=== PATIENT | female | born 1950 | race Caucasian/White ===

== ENCOUNTER 2016-11-18 11:01 | Day surgery (SDC) | payer OTHER ==
[2016-11-15 14:17] VITALS: BMI 28.0
--- NOTE | 2016-11-15 15:02 | PAT Medication Instructions ---
Service Date Nov 15, 2016. Current Home Medication List Aspirin (Aspirin), 81 MG PO HS Atorvastatin (Lipitor), 20 MG PO HS Cholecalciferol (D 5000), 1 TAB PO QAM Insulin Detemir (Levemir), 15 SC DAILY BEFORE LUNCH Insulin Human Regular (Novolin R) Levothyroxine Sodium (Synthroid), 25 MCG PO QAM Lisinopril (Prinivil), 10 MG PO QAM Metformin Hcl (Glucophage), 1,000 MG PO BID Metoprolol Succinate (Toprol Xl), 50 MG PO QAM Oxycodone/Acetaminophen 5MG/325MG (Percocet 5MG/325MG), 1 TABLET PO QHS PRN for Pain Prednisone (Prednisone), 1 TAB PO HS Venlafaxine Hcl (Effexor Xr), 150 MG PO HS Medication Instructions For Your Scheduled Surgery Aspirin (Aspirin), 81 MG PO HS (patient stopped 11/11/16 per surgeon instructions) Prednisone (Prednisone), 1 TAB PO HS (last dose will be 11/15/16) - Hold the following medications 48 hours prior to surgery: Metformin Hcl (Glucophage), 1,000 MG PO BID - Hold the following medications the morning of surgery: Lisinopril (Prinivil), 10 MG PO QAM Insulin Human Regular (Novolin R) Cholecalciferol (D 5000), 1 TAB PO QAM - Take the following medications the morning of surgery with a sip of water: Oxycodone/Acetaminophen 5MG/325MG (Percocet 5MG/325MG), 1 TABLET PO QHS PRN for Pain (can take up to fours prior to surgery if needed) Metoprolol Succinate (Toprol Xl), 50 MG PO QAM Levothyroxine Sodium (Synthroid), 25 MCG PO QAM - Take the following medications as scheduled the night before surgery: Venlafaxine Hcl (Effexor Xr), 150 MG PO HS Oxycodone/Acetaminophen 5MG/325MG (Percocet 5MG/325MG), 1 TABLET PO QHS PRN for Pain Insulin Detemir (Levemir), 15 SC DAILY BEFORE LUNCH Insulin Human Regular (Novolin R) Atorvastatin (Lipitor), 20 MG PO HS If you have any questions please call us at [phone] or [phone] ( [place]) or [phone]
[2016-11-15 15:32] LABS: BASO % 0.2 %; BASO ABS # 0.02 K/uL (0-0.2); COMPLETE YES; EOS % 1.4 %; HEMATOCRIT 40.7 % (37-47); IG% 0.3 %; LYMPH % 28.3 %; LYMPH ABS # 2.65 K/uL (1.2-3.4); MEAN CELL VOLUME 90.2 fL (80-100); MEAN CORPUSCULAR HGB CONC 34.4 g/dl (32-36); NEUT % 63.8 %; PLATELET COUNT 202 K/uL (130-400); RED BLOOD COUNT 4.51 M/uL (4.2-5.4); WHITE BLOOD COUNT 9.38 K/uL (4.8-10.8)
[2016-11-15 15:53] LABS: BUN/CREATININE RATIO 22.7 (10-20); CALCIUM 9.6 mg/dl (8.5-10.1); CREATININE 0.7 mg/dl (0.60-1.20); POTASSIUM 3.7 mmol/L (3.5-5.1)
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
[~2016-11-18] VITALS: Ht 175.3 cm; Wt 87.0 kg
[~2016-11-18 11:01] MED LIST: ASPI-461 PO; ATOR-54 PO; BUPIVACAINE/EPINEPHRINE 0.25% 1:200,000 30 ML VIAL ONE; CEFAZOLIN 2000 MG/60 ML D5W IV SCH; CHOLCAP10 PO; DEXAMETHASONE SOD INJ 4 MG/ML VIAL ONE; LACTATED RINGER'S 1000ML 1,000 ML IV SCH; LEVO25TA PO; LISI10TA PO; LVMI SC; METF-384 PO; METO1TAB66 PO; NVLRPUC; OXYC-57 PO; PRED20TA PO; VENL150C PO
--- NOTE | 2016-11-18 11:32 | History & Physical Bridge Note ---
H&P Re-Evaluation Bridge Note: I have examined the patient, reviewed the History & Physical and in the interval since the performance of the History & Physical I have noted the following changes of clinical significance: No changes noted
[2016-11-18 11:43] VITALS: BP 122/71; PULSE 81; TEMP 36.8; O2SAT 94; Ht 175.3 cm; Wt 87.0 kg
[2016-11-18] MEDS ORDERED: CEFAZOLIN IV 2,000 MG/60 ML D5W IV ONE (11:58)
[2016-11-18 12:10] LABS: PARTIAL THROMBOPLASTIN RATIO 1.4; PROTHROMBIN TIME (PATIENT) 10.9 SECONDS (9.0-12.0)
[2016-11-18] MEDS ORDERED: FENTANYL CITRATE INJ 50 MCG/1 ML 2 ML VIAL ONE (12:15)
[2016-11-18] MEDS ORDERED: MIDAZOLAM HCL 1 MG/ML 2ML VIAL ONE (12:15)
[2016-11-18] MEDS ORDERED: LIDOCAINE HCL 2% 2 ML VIAL (20MG/ML) ONE (12:15)
[2016-11-18] MEDS ORDERED: DEXAMETHASONE SOD INJ 4 MG/ML VIAL ONE (12:15)
[2016-11-18] MEDS ORDERED: ONDANSETRON INJ 2 MG/ML 2 ML VIAL ONE (12:15)
[2016-11-18] MEDS ORDERED: PROPOFOL IV EMULSION 10 MG/ML 20 ML VIAL IV ONE ×2 (12:15→13:07)
[2016-11-18] MEDS ORDERED: ONDANSETRON INJ 2 MG/ML 2 ML VIAL IV PRN (14:15)
[2016-11-18] MEDS ORDERED: FENTANYL CITRATE INJ 50 MCG/1 ML 2 ML VIAL IV PRN (14:15)
[2016-11-18] MEDS ORDERED: ATROPINE SULFATE 0.1 MG/ML 5ML SYR IV PRN (14:15)
[2016-11-18] MEDS ORDERED: EpHEDrine SULFATE INJ 50 MG/ML AMP IV PRN (14:15)
--- NOTE | 2016-11-18 15:55 | [facility] Post Operative Brief Note ---
Immediate Operative Summary Operative Date Nov 18, 2016. Pre-Operative Diagnosis RIGHT WRIST DISPLACED 2-PART INTRAARTICULAR DISTAL RADIUS FRACTURE Post-Operative Diagnosis RIGHT WRIST DISPLACED 2-PART INTRAARTICULAR DISTAL RADIUS FRACTURE Procedure(s) Performed O.R.I.F.RIGHT DISTAL RADIUS FRACTURE Surgeon DR FAUST [employer] Representative Surgeon(s) ZARIA TUTTLE Estimated Blood Loss 2ml Findings SEE DICT Specimens NONE Drains N Anesthesia GLMA W/ AXILLARY BLOCK Complication(s) None Disposition Recovery Room / PACU
--- NOTE | 2016-11-18 16:01 | DIAGNOSTIC IMAGING REPORT ---
INTRAOPERATIVE RIGHT WRIST 2 VIEWS CLINICAL HISTORY: Distal radial fracture status post internal fixation COMPARISON STUDY: No previous studies for comparison. FINDINGS: 2 intraoperative fluoroscopic spot images are provided for interpretation. 97 seconds of fluoroscopic time was utilized. There are 2 cannulated screws fixating the intra-articular fracture of the distal radius. Alignment appears near-anatomic. There is also irregularity of the navicular. It is not possible to determine on this study whether this represents artifact or nondisplaced fracture. There is a probable ulnar styloid fracture. IMPRESSION: Internally fixated distal radial fracture. Electronically signed by: Rasta Jalloh M.D. 11/18/2016 3:59 PM Dictated Date/Time: 11/18/2016 3:58 PM
[2016-11-18] MEDS ORDERED: OXYC-57 PO (16:22)
--- NOTE | 2016-11-18 16:25 | Discharge Instructions ---
Discharge Instructions Admission Reason for Admission: Right Wrist Distal Radius Fracture Discharge Discharge Diagnosis / Problem: right distal radius fracture Discharge Goals Goal(s): Decrease discomfort Activity Recommendations Activity Limitations: as noted below Lifting Limitations: until after follow-up appointment Exercise/Sports Limitations: until after follow-up appointment May Resume Sexual Activity: when tolerated Shower/Bathe: keep incision dry (Keep splint on until seen back for follow up.) Driving or Machine Use: No driving until pain med use is stopped . Instructions / Follow-Up Instructions / Follow-Up ACTIVITY RECOMMENDATIONS: * No use of the right upper extremity. SPECIAL CARE INSTRUCTIONS: * Your bandage should be left in place until your follow up in 2 weeks. * Some drainage onto the dressing may occur. This is normal. * If the bandage feels excessively tight, you may loosen the elastic bandage. Then call the physician's office for further instructions. * If possible, keep your hand elevated above the level of your heart for the first 2 post operative days. You may use a sling if necessary. * You should move your fingers regularly (50-100 motions per hour) unless otherwise instructed. SPECIAL PRECAUTIONS: * If you notice increased drainage, fever over 101 degrees F. or severe, unremitting pain, call your physician/office at . * You may have been prescribed pain medication. If you experience nausea and/or skin rash, discontinue this medication and contact our office for an alternative medication. FOLLOW UP VISIT: If appointment is not already scheduled: Please call [facility] to make a follow-up appointment after your surgery at . Current Hospital Diet Patient's current hospital diet: Discharge Diet Recommended Diet: Regular Diet Procedures Procedures Performed: O.R.I.F.RIGHT DISTAL RADIUS FRACTURE Pending Studies Studies pending at discharge: no Medical Emergencies . Who to Call and When: Medical Emergencies: If at any time you feel your situation is an emergency, please call [phone] immediately. . Non-Emergent Contact Non-Emergency issues call your: Surgeon Call Non-Emergent contact if: temperature is above 101, your pain is not controlled, your pain is worsening, wound has increased pain . "Provider Documentation" section prepared by Drew Khan. VTE Core Measure Inpt VTE Proph given/why not?: Treatment not indicated
[2016-11-18] MEDS ORDERED: OXYCODONE/ACETAMINOPHEN 5-325 TAB PO PRN (16:30)
--- NOTE | 2016-11-18 16:38 | Anesthesiology Progress Note ---
Anesthesia Post Op Note Date & Time Nov 18, 2016 at 16:38 Vital Signs Pain Intensity: 0 Vital Signs Past 12 Hours Date Time Temp Pulse Resp B/P Pulse Ox O2 Delivery O2 Flow Rate FiO2 11/18/16 16:30 72 18 125/61 100 Room Air 11/18/16 16:20 74 18 132/60 100 Nasal Cannula 4 11/18/16 16:10 75 16 135/52 96 Nasal Cannula 4 11/18/16 16:03 36.5 75 16 146/63 97 Room Air 11/18/16 11:43 36.8 81 18 122/71 94 Room Air Notes Mental Status: alert / awake / arousable, participated in evaluation Pt Amnestic to Procedure: Yes Nausea / Vomiting: adequately controlled Pain: adequately controlled Airway Patency, RR, SpO2: stable & adequate BP & HR: stable & adequate Hydration State: stable & adequate Anesthetic Complications: no major complications apparent
[2016-11-18 16:50] VITALS: BP 121/61; PULSE 72; TEMP 36.8; O2SAT 92
--- NOTE | 2016-11-18 17:12 | DIAGNOSTIC IMAGING REPORT ---
RIGHT WRIST 2 VIEW CLINICAL HISTORY: Postoperative evaluation. COMPARISON: Right wrist fluoroscopic images November 18, 2016 FINDINGS: These 2 images demonstrate 2 screws which fixate the distal right radial fracture. A cast is in place. Hardware is intact. There are no unexpected radiopaque foreign bodies. Fracture is in near anatomic alignment. IMPRESSION: Expected findings following internal fixation of the distal right radial fracture. Electronically signed by: Aureliano Najera M.D. 11/18/2016 5:11 PM Dictated Date/Time: 11/18/2016 5:07 PM
[2016-11-18 17:20] VITALS: BP 106/58; PULSE 78; O2SAT 95
[2016-11-18 17:50] VITALS: BP 125/51; PULSE 75; TEMP 36.9; O2SAT 94
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
== END 2016-11-18 18:05 | disposition home or self-care (01) ==
LOC: C.ACU 11:01
PROVIDERS: ATTEND Orthopaedic Surgery Sports Medicine
DX: S52.501A Unspecified fracture of the lower end of right radius, initial encounter for closed fracture (principal); I10 Essential (primary) hypertension; E78.00 Pure hypercholesterolemia, unspecified; E11.9 Type 2 diabetes mellitus without complications; E03.9 Hypothyroidism, unspecified; K21.9 Gastro-esophageal reflux disease without esophagitis; E66.9 Obesity, unspecified; Z79.4 Long term (current) use of insulin; Z98.890 Other specified postprocedural states; Z90.710 Acquired absence of both cervix and uterus; Y33.XXXA Other specified events, undetermined intent, initial encounter; Y93.29 Activity, other involving ice and snow; Y92.488 Other paved roadways as the place of occurrence of the external cause; Y99.8 Other external cause status

== ENCOUNTER → 2017-08-24 | Outpatient (CLI) | payer OTHER ==
[~2017-08-24] MED LIST changes: -BUPIVACAINE/EPINEPHRINE 0.25% 1:200,000 30 ML VIAL ONE; -CEFAZOLIN 2000 MG/60 ML D5W IV SCH; -DEXAMETHASONE SOD INJ 4 MG/ML VIAL ONE; -LACTATED RINGER'S 1000ML 1,000 ML IV SCH; -PRED20TA PO
--- NOTE | 2017-08-24 09:41 | DIAGNOSTIC IMAGING REPORT ---
CT no new fractures are evident. WRIST NO CONTRAST CT DOSE: 68.68 mGycm CLINICAL HISTORY: Right wrist pain. History of an internally fixated distal radial fracture. TECHNIQUE: Helical images were acquired in the oblique axial plane. Sagittal and coronal reformatted images were acquired. A dose lowering technique was utilized adhering to the principles of ALARA. COMPARISON STUDY: Conventional radiographic study dated 11/18/2016 FINDINGS: There is an internally fixated distal radial fracture. Alignment remains unchanged when compared the prior conventional radiographic study dated 11/18/2016. The fracture appears healed. No abnormalities of the 2 screws are visualized. There are no findings to indicate loosening. IMPRESSION: Healed internally fixated distal radial fracture. No change in alignment. Electronically signed by: Rasta Jalloh M.D. 08/24/2017 9:40 AM Dictated Date/Time: 08/24/2017 9:32 AM
== END | disposition home or self-care (01) ==
LOC: C.CTS 08:18
PROVIDERS: ATTEND Orthopaedic Surgery Sports Medicine
DX: M25.531 Pain in right wrist (principal)

== ENCOUNTER 2020-06-05 07:53 | Inpatient (IN) ==
--- OUTSIDE RECORDS SUMMARY | 2020-06-05 07:56 | External Medical Summary | Continuity of Care Document ---
:1950 Author Name Joni Chris, Provider Address Unavailable Unavailable , Care Team Providers Name Role Phone Non[facility] [email or web address], Provider Unavailable [email or web address], UNKNOWN Unavailable Unavailable Problems Leg pain, diffuse, left (729.5) (M85.605) Allergies and Adverse Reactions Allergy history not documented Medications Medications not documented Procedures Procedures not documented Immunizations Immunizations not documented Plan of Treatment Planned Observations Planned Goals not documented Results No Known Results Results not documented
--- OUTSIDE RECORDS SUMMARY | 2020-06-05 07:56 | External Medical Summary | Continuity of Care Document ---
:1950 Author Name Joni Chris, Provider Address Unavailable Unavailable , Care Team Providers Name Role Phone Non[facility] [email or web address], Provider Unavailable [email or web address], UNKNOWN Unavailable Unavailable Problems Leg pain, diffuse, left (729.5) (M30.605) Allergies and Adverse Reactions Allergy history not documented Medications Medications not documented Procedures Procedures not documented Immunizations Immunizations not documented Plan of Treatment Planned Observations Planned Goals not documented Results No Known Results Results not documented
[2020-06-05 08:40] LABS: Basophils # (auto) 0.01 K/uL (0-0.2); Basophils % (auto) 0.4 %; Eosinophils # (auto) 0.12 K/uL (0-0.5); Eosinophils % (auto) 4.7 %; Hematocrit (blood only) 21.7 % (37-47); Hemoglobin 7.1 g/dL (12.0-16.0); Lymphocytes % (auto) 38.9 %; Mean Corpuscular Hemoglobin 35.9 pg (25-34); Mean Corpuscular Hgb Conc 32.7 g/dL (32-36); Mean Corpuscular Volume 109.6 fL (80-100); Mean Platelet Volume 11.8 fL (7.4-10.4); Monocytes # (auto) 0.29 K/uL (0.11-0.59); Monocytes % (auto) 11.3 %; Neutrophils # (auto) 1.15 K/uL (1.4-6.5); Neutrophils % (auto) 44.7 %; Platelet Count 169 K/uL (130-400); RDW Coefficient of Variation 17.2 % (11.5-14.5); RDW Standard Deviation 66.1 fL (36.4-46.3); Red Blood Count 1.98 M/uL (4.2-5.4); White Blood Count 2.57 K/uL (4.8-10.8)
--- NOTE | 2020-06-05 08:43 | Emergency Department Note ---
History of Present Illness General Chief complaint: Abnormal Labs/Diagnostic Testing Stated complaint: LOW BLOOD CT Time Seen by Provider: 06/05/20 08:48 Source: patient, RN notes reviewed and old records reviewed Mode of arrival: ambulatory Limitations: no limitations History of Present Illness Provider complaint: SOB Onset (ago): day(s) 3 Treatments prior to arrival: none This is a 69-year-old female who was sent in by Dr. Graham's office over concerns of the patient is short of breath. The patient had laboratory work drawn which showed a hemoglobin of 7.1 this was reconfirmed this morning and found to be low. She denies blood in stool, no nosebleeds, no blood thinner. Has been short of breath for the past three days made worse with movement. Home Medications Home Medications Medication Instructions Recorded Confirmed Type aspirin 81 mg PO HS 06/05/20 06/05/20 History cholecalciferol (vitamin D3) 125 mcg PO QAM 06/05/20 06/05/20 History [Vitamin D3] cyanocobalamin (vitamin B-12) 1,000 mcg PO QAM 06/05/20 06/05/20 History [Vitamin B-12] insulin detemir U-100 [Levemir 54 unit SUBCUT HS 06/05/20 06/05/20 History U-100 Insulin] insulin regular human [Novolin R 0 unit SUBCUT .SLIDING SCALE 06/05/20 06/05/20 History Flexpen] isosorbide mononitrate 30 mg PO QAM 06/05/20 06/05/20 History levothyroxine 25 mcg PO QAM 06/05/20 06/05/20 History linagliptin [Tradjenta] 5 mg PO QAM 06/05/20 06/05/20 History lisinopril 5 mg PO HS 06/05/20 06/05/20 History metformin 1,000 mg PO BIDM 06/05/20 06/05/20 History metoprolol succinate 50 mg PO QAM 06/05/20 06/05/20 History rosuvastatin 40 mg PO HS 06/05/20 06/05/20 History venlafaxine 150 mg PO HS 06/05/20 06/05/20 History Allergies Allergy/AdvReac Type Severity Reaction Status Date / Time No Known Allergies Allergy Unverified 06/05/20 09:07 Past Med/Surg History Medical History CAD (coronary artery disease) 2017-EDIL to LAD Depression DM type 2 (diabetes mellitus, type 2) Dyslipidemia Hypertension Hypothyroidism Surgical History H/O dilation and curettage H/O tubal ligation History of cholecystectomy History of partial hysterectomy History of spinal fusion Family History (Updated 06/05/20 @ 10:23 by MARTA Gregory) Father Heart disease Mother Heart disease Sister Breast cancer Sister Multiple myeloma Brother Prostate cancer Social History Smoking Status: Never smoker Hx Alcohol Use: No Hx Substance Use: No Preferred Language: Turkmen Communication Ability: Effective Forensic Chemist Required: No Beliefs That Will Affect Care: None Current Living Situation: Spouse Other Information That Helps Us Care for You: No Feels Safe at Home: Yes Safety Concerns: Feels Safe At This Time Review of Systems A total of 10 systems reviewed and were otherwise negative Physical Exam Vital Signs Vital Signs - 24 hr 06/05/20 07:56 06/05/20 08:37 06/05/20 08:44 Temperature 36.8 C Temperature Source Oral Pulse Rate 86 73 Pulse Rate from SpO2 Sensor 74 Pulse Rhythm Regular Pulse Strength Normal Respiratory Rate 18 17 Respiratory Effort / Characteristics Non-Labored Respiratory Depth Normal Respiratory Pattern Regular Blood Pressure 123/59 L 139/52 L Blood Pressure Mean 80 59 Blood Pressure Position Sitting Pulse Oximetry 96 99 95 Oxygen Delivery Method Room Air Room Air Room Air Sepsis Recent Fever Within 48 Hours No Sepsis New/Unexplained Change in Mental Status No Sepsis Action Taken by Nursing No Action Required 06/05/20 09:00 Temperature Temperature Source Pulse Rate 72 Pulse Rate from SpO2 Sensor 73 Pulse Rhythm Pulse Strength Respiratory Rate 23 Respiratory Effort / Characteristics Respiratory Depth Respiratory Pattern Blood Pressure 108/56 L Blood Pressure Mean 80 Blood Pressure Position Pulse Oximetry 95 Oxygen Delivery Method Room Air Sepsis Recent Fever Within 48 Hours Sepsis New/Unexplained Change in Mental Status Sepsis Action Taken by Nursing VITAL SIGNS - Vital signs and nursing notes were reviewed. GENERAL - 69-year-old female appearing stated age who is in no acute distress. Communicates well with provider and answers questions appropriately. SKIN - Without rashes. HEAD - NC/AT. EYES - PERRL with EOMI bilaterally. Sclera anicteric. Palpebral conjunctiva pink and moist with no injection noted. EARS - No deformities of external structures noted on gross examination bilaterally. No pain elicited with palpation of the tragus bilaterally. External auditory canals without discharge or otorrhea. Tympanic membranes pearly san without retraction or bulging. No fluid or purulent material visualized behind the TM. Handle of malleus, umbo, cone of light, pars tensa/flaccid all easily visualized. NOSE - Midline and without cyanosis. No epistaxis or purulent drainage noted. Septum midline without deviation or septal hematoma noted. MOUTH/OROPHARYNX - Without perioral cyanosis. Buccal mucosa pink and moist and without leukoplakia. Tongue midline with equal elevation of palate bilaterally. No tonsillar hypertrophy, erythema, or exudates noted. dentition noted. NECK - Neck with FROM. Supple to palpation. lymphadenopathy noted. No nuchal rigidity. LUNGS - Chest wall symmetric without accessory muscle use, intercostals retractions, or central cyanosis. Normal vesicular breath sounds CTA B/L. No wheezes, rales, or rhonchi appreciated. CARDIAC - RRR with S1/S2. No murmur, rubs, or gallops appreciated. ABDOMEN - Abdominal contour without pulsations or visible masses. BS normoactive all four quadrants. No tenderness, palpable masses, hepatosplenomegaly, or ascites noted. RECTAL: brown stool, heme negative EXTREMITIES - No clubbing or peripheral cyanosis. No pretibial edema present. +3/5 radial, posterior tibial, and dorsalis pedis pulses palpated throughout. +5/5 strength noted in UE/LE bilaterally. NEUROLOGIC - Cranial nerves II through XII grossly intact. Sensory intact to light touch throughout. Patellar reflexes +2/4. PSYCH - A&Ox3 and cooperates fully with examiner. Pt is very pleasant and interacts well with examiner. Course Administered Medications Insulin Aspart (Novolog Flexpen) 0 units SC ACHS MARIA GUADALUPE Stop: 07/05/20 11:29 Last Admin: 06/05/20 12:52 Dose: 6 units Documented by: [id number] Cosigned by: [id number] Ioversol (Optiray 320 100ml) 94 ml IV ONCE PRN PRN Reason: Interaction Checking Stop: 06/09/20 10:07 Last Admin: 06/05/20 10:08 Dose: 94 ml Documented by: [id number] Medical Decision Making Differential Diagnosis Diverticulosis, AVM, coagulopathy, colitis, inflammatory bowel disease, malignancy, Zandra-Mora tear, esophagitis, peptic ulcer disease, variceal bleed, gastritis, epistaxis, fissure, hemorrhoids, as well as other pathologies. Medical Records Attestation: I reviewed the patient's medical records. Home Medications Current Medication List: was personally reviewed by me Laboratory Data Attestation: I reviewed the patient's lab results. Result diagrams: 06/05/20 08:31 06/05/20 08:31 Lab Results 06/05/20 06/05/20 06/05/20 Range/Units 08:31 08:31 08:31 WBC 2.57 L (4.8-10.8) K/uL RBC 1.98 L (4.2-5.4) M/uL Hgb 7.1 L (12.0-16.0) g/dL POC Hgb (12.0-16.0) g/dl Hct 21.7 L (37-47) % POC Hct (37-47) % MCV 109.6 H (80-100) fL MCH 35.9 H (25-34) pg MCHC 32.7 (32-36) g/dL RDW Std Deviation 66.1 H (36.4-46.3) fL RDW Coeff of Evin 17.2 H (11.5-14.5) % Plt Count 169 (130-400) K/uL MPV 11.8 H (7.4-10.4) fL Immature Gran % (Auto) 0.0 % Neut % (Auto) 44.7 % Lymph % (Auto) 38.9 % Towns % (Auto) 11.3 % Eos % (Auto) 4.7 % Baso % (Auto) 0.4 % Reticulocyte % (Auto) 2.8 H (0.5-2.0) % Neut # (Auto) 1.15 L (1.4-6.5) K/uL Lymph # (Auto) 1.00 L (1.2-3.4) K/uL Towns # (Auto) 0.29 (0.11-0.59) K/uL Eos # (Auto) 0.12 (0-0.5) K/uL Baso # (Auto) 0.01 (0-0.2) K/uL Reticulocyte # 0.05 (0.02-0.10) 10^6/uL Immature Gran # (Auto) 0.00 (0.00-0.02) K/uL Hyposegmented Neuts Occasional Hypogranular Neuts 1+ Macrocytosis Present Tear Drop Cells 1+ Ovalocytes 1+ Peripher Smr Path Cons PT 11.2 (9.0-12.0) Seconds INR 1.1 (0.9-1.1) APTT 24.9 (21.0-31.0) Seconds PTT Ratio 0.9 POC Sodium (135-144) mmol/L Sodium (136-145) mmol/L POC Potassium (3.3-5.0) mmol/L Potassium (3.5-5.1) mmol/L POC Chloride (101-112) mmol/L Chloride (98-107) mmol/L Carbon Dioxide (21-32) mmol/L POC Total CO2 (24-31) mmol/L Anion Gap (3-11) POC Anion Gap (16-25) mmol/L POC BUN (7-18) mg/dl BUN (7-18) mg/dl Creatinine (0.6-1.2) mg/dl POC Creatinine (0.6-1.3) mg/dl Est Cr Clr Drug Dosing ml/min Est GFR ( Amer) Est GFR (Non-Af Amer) BUN/Creatinine Ratio (10-20) Glucose (70-99) mg/dl POC Glucose (other) (70-99) mg/dl Calcium (8.5-10.1) mg/dl POC Ioniz Calcium Dalila (1.12-1.32) mmol/l Iron (35-150) mcg/dl TIBC (250-450) mcg/dl Transferrin (200-360) mg/dl Transferrin % Sat (15-50) % Total Bilirubin (0.2-1) mg/dl AST (15-37) U/L ALT (12-78) U/L Alkaline Phosphatase (45-117) U/L Total Creatine Kinase (26-192) U/L CK-MB (CK-2) (0.5-3.6) ng/ml CK/CKMB % Calc (0-3.0) Troponin I (0-0.045) ng/ml Total Protein (6.4-8.2) gm/dl Albumin (3.4-5.0) gm/dl Globulin (2.5-4.0) gm/dl Albumin/Globulin Ratio (0.9-2) POC Stool Occult Blood (Negative) Anaplasma Smear See Comment Lyme Disease IgG Ab (Negative) Lyme Disease IgM Ab (Negative) Blood Type A Positive Antibody Screen NEGATIVE Crossmatch See Detail 06/05/20 06/05/20 06/05/20 Range/Units 08:31 08:31 08:41 WBC (4.8-10.8) K/uL RBC (4.2-5.4) M/uL Hgb (12.0-16.0) g/dL POC Hgb (12.0-16.0) g/dl Hct (37-47) % POC Hct (37-47) % MCV (80-100) fL MCH (25-34) pg MCHC (32-36) g/dL RDW Std Deviation (36.4-46.3) fL RDW Coeff of Evin (11.5-14.5) % Plt Count (130-400) K/uL MPV (7.4-10.4) fL Immature Gran % (Auto) % Neut % (Auto) % Lymph % (Auto) % Towns % (Auto) % Eos % (Auto) % Baso % (Auto) % Reticulocyte % (Auto) (0.5-2.0) % Neut # (Auto) (1.4-6.5) K/uL Lymph # (Auto) (1.2-3.4) K/uL Towns # (Auto) (0.11-0.59) K/uL Eos # (Auto) (0-0.5) K/uL Baso # (Auto) (0-0.2) K/uL Reticulocyte # (0.02-0.10) 10^6/uL Immature Gran # (Auto) (0.00-0.02) K/uL Hyposegmented Neuts Hypogranular Neuts Macrocytosis Tear Drop Cells Ovalocytes Peripher Smr Path Cons PT (9.0-12.0) Seconds INR (0.9-1.1) APTT (21.0-31.0) Seconds PTT Ratio POC Sodium (135-144) mmol/L Sodium 139 (136-145) mmol/L POC Potassium (3.3-5.0) mmol/L Potassium 4.3 (3.5-5.1) mmol/L POC Chloride (101-112) mmol/L Chloride 106 (98-107) mmol/L Carbon Dioxide 25 (21-32) mmol/L POC Total CO2 (24-31) mmol/L Anion Gap 8.0 (3-11) POC Anion Gap (16-25) mmol/L POC BUN (7-18) mg/dl BUN 12 (7-18) mg/dl Creatinine 0.70 (0.6-1.2) mg/dl POC Creatinine (0.6-1.3) mg/dl Est Cr Clr Drug Dosing 83.1 ml/min Est GFR ( Amer) 101.0 Est GFR (Non-Af Amer) 87.2 BUN/Creatinine Ratio 16.8 (10-20) Glucose 213 H (70-99) mg/dl POC Glucose (other) (70-99) mg/dl Calcium 8.6 (8.5-10.1) mg/dl POC Ioniz Calcium Dalila (1.12-1.32) mmol/l Iron 113 (35-150) mcg/dl TIBC 366 (250-450) mcg/dl Transferrin 280 (200-360) mg/dl Transferrin % Sat 29 (15-50) % Total Bilirubin 0.3 (0.2-1) mg/dl AST 23 (15-37) U/L ALT 31 (12-78) U/L Alkaline Phosphatase 61 (45-117) U/L Total Creatine Kinase 194 H (26-192) U/L CK-MB (CK-2) 3.7 H (0.5-3.6) ng/ml CK/CKMB % Calc 1.9 (0-3.0) Troponin I < 0.015 (0-0.045) ng/ml Total Protein 7.5 (6.4-8.2) gm/dl Albumin 3.6 (3.4-5.0) gm/dl Globulin 3.9 (2.5-4.0) gm/dl Albumin/Globulin Ratio 0.9 (0.9-2) POC Stool Occult Blood Negative (Negative) Anaplasma Smear Lyme Disease IgG Ab Negative (Negative) Lyme Disease IgM Ab Negative (Negative) Blood Type Antibody Screen Crossmatch 06/05/20 Range/Units 08:55 WBC (4.8-10.8) K/uL RBC (4.2-5.4) M/uL Hgb (12.0-16.0) g/dL POC Hgb 7.1 L (12.0-16.0) g/dl Hct (37-47) % POC Hct 21 L (37-47) % MCV (80-100) fL MCH (25-34) pg MCHC (32-36) g/dL RDW Std Deviation (36.4-46.3) fL RDW Coeff of Evin (11.5-14.5) % Plt Count (130-400) K/uL MPV (7.4-10.4) fL Immature Gran % (Auto) % Neut % (Auto) % Lymph % (Auto) % Towns % (Auto) % Eos % (Auto) % Baso % (Auto) % Reticulocyte % (Auto) (0.5-2.0) % Neut # (Auto) (1.4-6.5) K/uL Lymph # (Auto) (1.2-3.4) K/uL Towns # (Auto) (0.11-0.59) K/uL Eos # (Auto) (0-0.5) K/uL Baso # (Auto) (0-0.2) K/uL Reticulocyte # (0.02-0.10) 10^6/uL Immature Gran # (Auto) (0.00-0.02) K/uL Hyposegmented Neuts Hypogranular Neuts Macrocytosis Tear Drop Cells Ovalocytes Peripher Smr Path Cons PT (9.0-12.0) Seconds INR (0.9-1.1) APTT (21.0-31.0) Seconds PTT Ratio POC Sodium 139 (135-144) mmol/L Sodium (136-145) mmol/L POC Potassium 4.5 (3.3-5.0) mmol/L Potassium (3.5-5.1) mmol/L POC Chloride 103 (101-112) mmol/L Chloride (98-107) mmol/L Carbon Dioxide (21-32) mmol/L POC Total CO2 23 L (24-31) mmol/L Anion Gap (3-11) POC Anion Gap 18.0 (16-25) mmol/L POC BUN 12 (7-18) mg/dl BUN (7-18) mg/dl Creatinine (0.6-1.2) mg/dl POC Creatinine 0.5 L (0.6-1.3) mg/dl Est Cr Clr Drug Dosing ml/min Est GFR ( Amer) Est GFR (Non-Af Amer) BUN/Creatinine Ratio (10-20) Glucose (70-99) mg/dl POC Glucose (other) 221 H (70-99) mg/dl Calcium (8.5-10.1) mg/dl POC Ioniz Calcium Dalila 1.20 (1.12-1.32) mmol/l Iron (35-150) mcg/dl TIBC (250-450) mcg/dl Transferrin (200-360) mg/dl Transferrin % Sat (15-50) % Total Bilirubin (0.2-1) mg/dl AST (15-37) U/L ALT (12-78) U/L Alkaline Phosphatase (45-117) U/L Total Creatine Kinase (26-192) U/L CK-MB (CK-2) (0.5-3.6) ng/ml CK/CKMB % Calc (0-3.0) Troponin I (0-0.045) ng/ml Total Protein (6.4-8.2) gm/dl Albumin (3.4-5.0) gm/dl Globulin (2.5-4.0) gm/dl Albumin/Globulin Ratio (0.9-2) POC Stool Occult Blood (Negative) Anaplasma Smear Lyme Disease IgG Ab (Negative) Lyme Disease IgM Ab (Negative) Blood Type Antibody Screen Crossmatch Imaging Data Radiologist's Impression: [facility], [place] [phone] CT Scan Report Patient: KELIN TANG Date: 06/05/20 MR#: [id number]: [id number] ISSAC SOFIA Acct ID:[id number]: Date: 1950[facility] Zip: [place] [id number] Age: 69Location: ED Sex: F Room/Bed: Att Phy:Diagnosis: LOW BLOOD CT [place] Phy: Dhruv Moss MDService Date: 06/05/20 [facility] Phy:Interpreting Phy: Aureliano Najera MD Admit Phy: Ordering Phy: Az Duenas MD cc: ~ CT OF THE ABDOMEN AND PELVIS WITH CONTRAST CLINICAL HISTORY: Epigastric pain. COMPARISON STUDY: None. TECHNIQUE: Following IV administration of 94 mL of Optiray-320, axial images of the abdomen and pelvis were obtained from the lung bases to the proximal femurs. Images were reviewed in the axial, sagittal, and coronal planes. IV contrast was administered without complication. Automated exposure control was utilized for the study. A dose lowering technique was utilized adhering to the principles of ALARA. CT DOSE: 1085.91 mGy.cm FINDINGS: Lung bases are unremarkable. No pneumatosis, free air or portal venous gas is present. The heart is mildly enlarged. The liver, spleen, adrenal glands and pancreas are unremarkable with exception of a 7 mm cystic lesion within the pancreatic tail which favors a small side branch IPMN. There is a cyst within the upper pole of the left kidney. There is no hydronephrosis. A 5 mm cortical calcification versus less likely calculus within the midpole the left kidney is noted. There are no ureteral calculi. There is no hydronephrosis. The nephrograms are symmetric. There is no biliary ductal dilatation status post cholecystectomy. There is no evidence for a bowel obstruction. The appendix is normal. Caliber and wall thickness of small and large bowel are normal. Postoperative findings within the lumbar spine are noted. Note is made of subcutaneous infiltration of the anterior abdominal wall. No fluid collection is noted. There are no suspicious osseous lesions. No acute fracture within visualized skeletal structures are noted. There is moderate amount of stool within the colon. Major vasculature is patent. IMPRESSION: 1. No acute findings within the abdomen or pelvis. 2. Mild subcutaneous infiltration of the anterior abdominal wall. This may reflect edema or cellulitis. No fluid collection to suggest abscess. 3. Normal appendix. No bowel obstruction. No bowel wall thickening. ACT 112: Negative or not required by law. Electronically signed by: Aureliano Najera M.D. 06/05/2020 10:24 AM Dictated: 06/05/20 1016 Transcribed: 06/05/20 1016 ECG Data Attestation: I personally reviewed and interpreted this ECG as follows: Indication: + SOB/dyspnea Rate (beats per minute): 73 Rhythm: + normal sinus ECG [place]: + Normal ECG ST segments: no ST depression and no ST elevation ECG Findings: + Q waves (Inferior) Comparison ECG Date: from (11/15/2016) Change: no significant change MDM Narrative Patient was seen and evaluated as above in room C9. Review was performed of nu rsing notes and vital signs. I did review pertinent previous visits and patient history. After obtaining a thorough history and physical examination the above work up was performed. This is a 69-year-old female who presents emergency department with shortness of breath and pancytopenia. The patient was typed and crossed for 1 units of red blood cells. Because of the pancytopenia I did discuss the case with the hospitalist service who did agree to admit the patient. The patient is complaining of epigastric pain therefore she was sent for CAT scan the abdomen pelvis this does not show any acute process. Patient's troponin is also not elevated. Patient and family are in agreement with the treatment plan An order was placed for continuous cardiac monitoring. The monitor shows a rate of 86 with Normal Sinus rhythm. The patient was evaluated during the global COVID-19 pandemic, and that diagnosis was suspected/considered upon their initial presentation. Their evaluation, treatment and testing was consistent with current guidelines for patients who present with complaints or symptoms that may be related to COVID- 19. Impression & Plan Pancytopenia Discharge Plan Visit Data *Final* Discharge Date/Time: 06/05/20 09:56 Chief Complaint: Abnormal Labs/Diagnostic Testing Stated Complaint: LOW BLOOD CT ED Provider: Az Duenas ED Midlevel Provider: Henrietta Butcher Discharge Problem: Pancytopenia Patient Disposition: Admitted As Inpatient Discharge Instructions Interventions: ED Discharge Assessment Last Done: 06/05/20 09:56
[2020-06-05 08:53] LABS: INR 1.1 (0.9-1.1); Partial Thromboplastin Ratio 0.9; Partial Thromboplastin Time 24.9 Seconds (21.0-31.0); Prothrombin Time 11.2 Seconds (9.0-12.0)
--- NOTE | 2020-06-05 08:53 | Emergency Department Note ---
ED Visit Note This patient was seen in concert with Dr. Duenas and we discussed and agreed upon the history, physical, assessment and plan. See attending's note for details. Resident Activity Tracking Resident Involvement: Resident Care Provided Care Provided: Adult ED
[2020-06-05 08:56] LABS: Alanine Aminotransferase 31 U/L (12-78); Albumin Level 3.6 gm/dl (3.4-5.0); Aspartate Aminotransferase 23 U/L (15-37); BUN Creatinine Ratio 16.8 (10-20); Blood Urea Nitrogen 12 mg/dl (7-18); Calcium 8.6 mg/dl (8.5-10.1); Carbon Dioxide 25 mmol/L (21-32); Chloride 106 mmol/L (98-107); Creatinine Clr Calc Pharmacy 83.1 ml/min; Est GFR (Non-African American) 87.2; Glucose 213 mg/dl (70-99); Potassium 4.3 mmol/L (3.5-5.1); Sodium 139 mmol/L (136-145)
[2020-06-05 08:59] LABS: Reticulocyte % 2.8 % (0.5-2.0); Reticulocytes # 0.05 10^6/uL (0.02-0.10)
[2020-06-05 09:03] LABS: Bilirubin,Total 0.3 mg/dl (0.2-1); Creatine Kinase MB 3.7 ng/ml (0.5-3.6); Total Protein 7.5 gm/dl (6.4-8.2)
[2020-06-05 09:04] LABS: Albumin Globulin Ratio 0.9 (0.9-2); Alkaline Phosphatase 61 U/L (45-117); Creatine Kinase 194 U/L (26-192); Globulin 3.9 gm/dl (2.5-4.0); Iron 113 mcg/dl (35-150); Total Iron Binding Capacity 366 mcg/dl (250-450); Transferrin 280 mg/dl (200-360); Transferrin Percent Saturation 29 % (15-50); Troponin I < 0.015 ng/ml (0-0.045)
[2020-06-05 09:09] LABS: iSTAT Creatinine 0.5 mg/dl (0.6-1.3); iSTAT Hemoglobin 7.1 g/dl (12.0-16.0); iSTAT Ionized Calcium 1.2 mmol/l (1.12-1.32); iSTAT Potassium 4.5 mmol/L (3.3-5.0)
[2020-06-05] MEDS ORDERED: SODIUM CHLORIDE 0.9% 250 ML IV PRN ×4 (09:10→18:44)
[2020-06-05 09:17] LABS: Hypogranular Neutrophils 1+; Macrocytosis Present; Ovalocytes 1+; Tear Drop Cells 1+
[2020-06-05] MEDS ORDERED: IOVERSOL 100ml IV PRN (10:08)
--- NOTE | 2020-06-05 10:12 | History & Physical Report ---
Date of Service June 05, 2020 Assessment & Plan (1) Anemia: (2) Leukopenia: -Admit to [facility] with telemetry -Patient presenting by referral of outpatient physician for evaluation of new onset anemia and leukopenia -In the ED, WBC 2.5K, Hgb 7.1, MCV 109, retic count 2.8; noted normal platelets 169K, normal renal functions, normal LFTs -Outpatient labs showed normal iron studies, normal folic acid, mildly elevated vitamin B12 1514 -Anaplasma smear negative, Lyme pending -Check peripheral smear -CT ABD/pelvis pending -Likely needs bone marrow biopsy, will discuss with hematology/oncology -will transfuse PRBC after case is discussed with heme-onc (3) CAD (coronary artery disease): -Appears stable -Shortness of breath and chest heaviness likely secondary to anemia -Continue aspirin, statin, beta-carlos, nitrate, SAMREEN inhibitor (4) Hypertension: -BP controlled -Continue isosorbide, lisinopril, metoprolol (5) DM type 2 (diabetes mellitus, type 2): -Hgb A1c 8.1 01/2020 -Utilize Lantus and NovoLog per protocol while hospitalized (6) Hypothyroidism: -Continue levothyroxine -Check TSH (7) DVT prophylaxis: -SCDs due to anemia History of Present Illness Chief Complaint: Referred by outpatient physician for anemia Primary Care Provider: Dhruv Moss MD 69-year-old female with PMH DM type II on insulin, CAD, HTN, and other problems listed below who presents to the ED by referral outpatient physician for evaluation of new onset anemia. Patient reports worsening exertional shortness of breath over the past few weeks. She also has had associated chest heaviness. Patient reports symptoms were similar to when she required a cardiac stent in the past. Patient was evaluated by her ignition expert on 06/03. Initially outpatient cardiac catheterization was planned however labs were obtained showing a new onset anemia and leukopenia therefore cardiac cath was canceled. Outpatient labs obtained yesterday showed WBC 1.7K, hemoglobin 6.8, platelets 148K, reticulocyte 3.4. Iron studies were within normal limits and vitamin B12 was elevated at 1514. Patient notes feeling increasingly tired. She is noticed some mild swelling around her ankles. Denies orthopnea. No fevers, chills, night sweats. Reports epigastric pain that has been ongoing for about the past 1 year. Denies vomiting, diarrhea, bright red bleeding per rectum, or dark tarry stools. She reports some lightheadedness and dizziness in the morning however no syncopal events. Outpatient chart review shows that weights have been stable. She denies any urinary symptoms. In the ED, labs show WBC 2.5K, hemoglobin 7.1, platelets 169K. Patient is hemodynamically stable. Allergies Allergy/AdvReac Type Severity Reaction Status Date / Time No Known Allergies Allergy Unverified 06/05/20 09:07 Home Medications Home Medications Medication Instructions Recorded Confirmed Type aspirin 81 mg PO HS 06/05/20 06/05/20 History cholecalciferol (vitamin D3) 125 mcg PO QAM 06/05/20 06/05/20 History [Vitamin D3] cyanocobalamin (vitamin B-12) 1,000 mcg PO QAM 06/05/20 06/05/20 History [Vitamin B-12] insulin detemir U-100 [Levemir 54 unit SUBCUT HS 06/05/20 06/05/20 History U-100 Insulin] insulin regular human [Novolin R 0 unit SUBCUT .SLIDING SCALE 06/05/20 06/05/20 History Flexpen] isosorbide mononitrate 30 mg PO QAM 06/05/20 06/05/20 History levothyroxine 25 mcg PO QAM 06/05/20 06/05/20 History linagliptin [Tradjenta] 5 mg PO QAM 06/05/20 06/05/20 History lisinopril 5 mg PO HS 06/05/20 06/05/20 History metformin 1,000 mg PO BIDM 06/05/20 06/05/20 History metoprolol succinate 50 mg PO QAM 06/05/20 06/05/20 History rosuvastatin 40 mg PO HS 06/05/20 06/05/20 History venlafaxine 150 mg PO HS 06/05/20 06/05/20 History Past Med/Surg History Medical History CAD (coronary artery disease) 2017-EDIL to LAD Depression DM type 2 (diabetes mellitus, type 2) Dyslipidemia Hypertension Hypothyroidism Surgical History H/O dilation and curettage H/O tubal ligation History of cholecystectomy History of partial hysterectomy History of spinal fusion Family History (Updated 06/05/20 @ 10:23 by MARTA Gregory) Father Heart disease Mother Heart disease Sister Breast cancer Sister Multiple myeloma Brother Prostate cancer Social History Smoking Status: Never smoker Hx Alcohol Use: No Hx Substance Use: No Preferred Language: [place] Communication Ability: Effective Electric Drill Operator Required: No Beliefs That Will Affect Care: None Current Living Situation: Spouse Other Information That Helps Us Care for You: No Feels Safe at Home: Yes Safety Concerns: Feels Safe At This Time Review of Systems Review of Systems: ROS per HPI, all other systems reviewed and negative Physical Exam Constitutional: WD/WN, vitals as above Eyes: PERRL, conjunctivae normal, anicteric sclerae ENMT: external ear and nose normal, oropharynx normal Respiratory: normal respiratory effort, lungs clear to auscultation Cardiovascular: Rate/Rhythm: regular rate and regular rhythm Vessels: normal peripheral pulses Extremities: no edema Gastrointestinal (Abdomen): Inspection/Auscultation: abdomen normal to inspection and normal bowel sounds Percussion/Palpation: + abdomen tender (Mild, epigastric) and abdomen soft; no hepatosplenomegaly Musculoskeletal: no cyanosis or clubbing, extremities motor strength 5/5 Skin: no rashes, warm and dry Neurologic: PERRL, EOMI, accommodation nl, no face palsy, no dysarthria Psychiatric: A+Ox3, euthymic affect Results & Data Results & Data ([facility]) Vital Signs (Past 12 Hours) Vital Signs Temp Pulse Resp BP Pulse Ox 06/05/20 09:30 73 20 106/51 L 94 06/05/20 09:00 72 23 108/56 L 95 06/05/20 08:44 95 06/05/20 08:37 73 17 139/52 L 99 06/05/20 07:56 36.8 C 86 18 123/59 L 96 Laboratory Results Short CBC 06/05/20 Range/Units 08:31 WBC 2.57 L (4.8-10.8) K/uL Hgb 7.1 L (12.0-16.0) g/dL Hct 21.7 L (37-47) % Plt Count 169 (130-400) K/uL BMP 06/05/20 08:31 Sodium 139 Potassium 4.3 Chloride 106 Carbon Dioxide 25 BUN 12 Creatinine 0.70 Glucose 213 H Calcium 8.6 Cardiac Enzymes 06/05/20 Range/Units 08:31 Total Creatine Kinase 194 H (26-192) U/L CK-MB (CK-2) 3.7 H (0.5-3.6) ng/ml Troponin I < 0.015 (0-0.045) ng/ml Liver Function 06/05/20 Range/Units 08:31 Total Bilirubin 0.3 (0.2-1) mg/dl AST 23 (15-37) U/L ALT 31 (12-78) U/L Alkaline Phosphatase 61 (45-117) U/L Albumin 3.6 (3.4-5.0) gm/dl Code Status & VTE Plan Code Status Patient is a full code as per my discussion with her. VTE Prophylaxis Plan VTE Prophylaxis will be ordered: Yes Supervising Physician Co-Signing Physician Notes Attending addendum: The patient was seen and examined in medical telemetry unit She has been complaining of weakness and shortness of breath with exertion for the last 3 weeks Noted to have a hemoglobin of 7 with low white count Still complains of shortness of breath with exertion but denies any pain On examination Anxious and pale looking Hemodynamically stable Chest-clear to auscultate bilaterally Heart-S1-S2, 2/6 ESM over precordium Abdomen-benign Extremities-negative for any edema Admission labs, EKG and imaging studies reviewed Has pancytopenia without much decrease in platelet We will need to rule out bone marrow aplasia by marrow biopsy down the line Medical Microbiologist contacted and will have an appointment as an outpatient on discharge We will get blood transfusion and likely discharge tomorrow Agree with assessment and plan as outlined above by MARTA Gregory Dr
--- NOTE | 2020-06-05 10:25 | CT Scan Report ---
CT OF THE ABDOMEN AND PELVIS WITH CONTRAST CLINICAL HISTORY: Epigastric pain. COMPARISON STUDY: None. TECHNIQUE: Following IV administration of 94 mL of Optiray-320, axial images of the abdomen and pelvi s were obtained from the lung bases to the proximal femurs. Images were reviewed in the axial, sagitt al, and coronal planes. IV contrast was administered without complication. Automated exposure contro l was utilized for the study. A dose lowering technique was utilized adhering to the principles of A QUINCY. CT DOSE: 1085.91 mGy.cm FINDINGS: Lung bases are unremarkable. No pneumatosis, free air or portal venous gas is present. The heart is mildly enlarged. The liver, spleen, adrenal glands and pancreas are unremarkable with except ion of a 7 mm cystic lesion within the pancreatic tail which favors a small side branch IPMN. There i s a cyst within the upper pole of the left kidney. There is no hydronephrosis. A 5 mm cortical calcif ication versus less likely calculus within the midpole the left kidney is noted. There are no uretera l calculi. There is no hydronephrosis. The nephrograms are symmetric. There is no biliary ductal dila tation status post cholecystectomy. There is no evidence for a bowel obstruction. The appendix is nor mal. Caliber and wall thickness of small and large bowel are normal. Postoperative findings within th e lumbar spine are noted. Note is made of subcutaneous infiltration of the anterior abdominal wall. N o fluid collection is noted. There are no suspicious osseous lesions. No acute fracture within visual ized skeletal structures are noted. There is moderate amount of stool within the colon. Major vascula ture is patent. IMPRESSION: 1. No acute findings within the abdomen or pelvis. 2. Mild subcutaneous infiltration of the anterior abdominal wall. This may reflect edema or celluliti s. No fluid collection to suggest abscess. 3. Normal appendix. No bowel obstruction. No bowel wall thickening. ACT 112: Negative or not required by law. Electronically signed by: Aureliano Najera M.D. 06/05/2020 10:24 AM
[2020-06-05 10:42] LABS: Lyme Ab IgG w/WB Rflx Negative (Negative); Lyme Ab IgM w/WB Rflx Negative (Negative)
[2020-06-05] MEDS ORDERED: CARBOHYDRATES FOR HYPOGLYCEMIA PO PRN (10:49)
[2020-06-05] MEDS ORDERED: GLUCOSE 10 TABS/TUBE PO PRN (10:49)
[2020-06-05] MEDS ORDERED: GLUCOSE 40% GEL 15 GM TUBE PO PRN (10:49)
[2020-06-05] MEDS ORDERED: ACETAMINOPHEN 325 MG TAB PO PRN (10:49)
[2020-06-05] MEDS ORDERED: DEXTROSE 50% 50 ML SYRINGE IV PRN (10:49)
[2020-06-05] MEDS ORDERED: GLUCAGON FOR INJ 1 MG VIAL SQ PRN (10:49)
[2020-06-05] MEDS: INSULIN ASPART 100 UNITS/ML 3 ML PEN SC SCH ×3 (12:52→20:18)
--- NOTE | 2020-06-05 16:06 | Electrocardiogram Report ---
Test Reason : Blood Pressure : / mmHG Vent. Rate : 073 BPM Atrial Rate : 073 BPM P-R Int : 178 ms QRS Dur : 078 ms QT Int : 386 ms P-R-T Axes : 040 000 059 degrees QTc Int : 425 ms Normal sinus rhythm Possible Inferior infarct , age undetermined Poor R wave progression, consider anterior WI vs. lead placement vs. LVH Abnormal ECG When compared with ECG of 15-NOV-2016 15:08, No significant change was found Confirmed by Henry Frerera ([id number]) on 06/05/2020 4:05:37 PM Referred By: Confirmed By:Henry Ferrera
[2020-06-05 17:35] LABS: Hematocrit (blood only) 21.9 % (37-47); Hemoglobin 7.3 g/dL (12.0-16.0)
[2020-06-05] MEDS ORDERED: lisinopriL 5 MG TAB PO SCH (21:00)
[2020-06-05] MEDS ORDERED: VENLAFAXINE HCL XR 150 MG CAPXR PO SCH (21:00)
[2020-06-05] MEDS ORDERED: INSULIN GLARGINE SOLOSTAR 100 UNITS/ML 3 ML PEN SC SCH (21:00)
[2020-06-05] MEDS ORDERED: ROSUVASTATIN CALCIUM 20 MG TAB PO SCH (21:00)
[2020-06-05] MEDS ORDERED: ASPIRIN 81 MG ECTAB PO SCH (21:00)
[2020-06-06] MEDS ORDERED: LEVOTHYROXINE SODIUM 25 MCG TABLET PO SCH (06:30)
[2020-06-06] MEDS: INSULIN ASPART 100 UNITS/ML 3 ML PEN SC SCH ×2 (08:15→12:06)
[2020-06-06] MEDS ORDERED: ISOSORBIDE MONO EXTENDED REL 30 MG TABCR PO SCH (09:00)
[2020-06-06] MEDS ORDERED: METOPROLOL SUCC 50MG EXT REL TAB PO SCH (09:00)
[2020-06-06 10:48] LABS: Hematocrit (blood only) 26.6 % (37-47); Hemoglobin 8.9 g/dL (12.0-16.0); Mean Corpuscular Hemoglobin 33.3 pg (25-34); Mean Corpuscular Hgb Conc 33.5 g/dL (32-36); Mean Corpuscular Volume 99.6 fL (80-100); Mean Platelet Volume 12.2 fL (7.4-10.4); Platelet Count 149 K/uL (130-400); RDW Coefficient of Variation 19.7 % (11.5-14.5); RDW Standard Deviation 70.9 fL (36.4-46.3); Red Blood Count 2.67 M/uL (4.2-5.4); White Blood Count 2.05 K/uL (4.8-10.8)
[2020-06-06 11:06] LABS: Anisocytosis Present; Basophils # (auto) 0.01 K/uL (0-0.2); Basophils % (auto) 0.5 %; Eosinophils # (auto) 0.15 K/uL (0-0.5); Eosinophils % (auto) 7.3 %; Hypogranular Neutrophils 2+; Lymphocytes % (auto) 43.9 %; Monocytes # (auto) 0.18 K/uL (0.11-0.59); Monocytes % (auto) 8.8 %; Neutrophils # (auto) 0.81 K/uL (1.4-6.5); Neutrophils % (auto) 39.5 %; Ovalocytes 2+
--- NOTE | 2020-06-06 11:06 | Hospitalist Progress Note ---
Date of Service June 06, 2020 Assessment & Plan (1) Anemia: Admitted with symptomatic anemia without any history of blood loss Hemoglobin 7.1 on admission with low white cell count Peripheral blood smear::In summary, the patient has leucopenia, macrocytic anemia with normal reticulocyte count. Tear drop red cells and some hypolobated, hypogranular neutrophils are noted. The findings are concerning for a bone marrow disorder, particularly myelodysplastic syndrome and hematology work up is suggested. No left shift, and specifically no blasts are noted. Likely has myelodysplastic syndrome/myelofibrosis/aplastic anemia Appointment with telephone operator will be made within 1 to 2 weeks Status post 2 units of PRBC transfusion Hemoglobin is 8.9 today We will discharge home this afternoon (2) Leukopenia: -Admit to [facility] with telemetry -Patient presenting by referral of outpatient physician for evaluation of new onset anemia and leukopenia -In the ED, WBC 2.5K, Hgb 7.1, MCV 109, retic count 2.8; noted normal platelets 169K, normal renal functions, normal LFTs -Outpatient labs showed normal iron studies, normal folic acid, mildly elevated vitamin B12 1514 -Anaplasma smear negative, Lyme - HEAD: No headache, dizziness, or head injury. -Check peripheral smear-as above -CT ABD/pelvis -unremarkable -Likely needs bone marrow biopsy, will discuss with hematology/oncology -Discussed with telephone operator (3) CAD (coronary artery disease): -Appears stable -Shortness of breath and chest heaviness likely secondary to anemia -Continue aspirin, statin, beta-carlos, nitrate, SAMREEN inhibitor -No cardiac symptoms (4) Hypertension: -BP controlled -Continue isosorbide, lisinopril, metoprolol (5) DM type 2 (diabetes mellitus, type 2): -Hgb A1c 8.1 01/2020 -Utilize Lantus and NovoLog per protocol while hospitalized (6) Hypothyroidism: -Continue levothyroxine -Check TSH-normal (7) DVT prophylaxis: -SCDs due to anemia Admission and Anticipated Discharge Date Admission Date: June 05, 2020 Subjective The patient was seen and examined in medical telemetry unit She has been feeling a lot better but he still has some discomfort whenever she is ambulating Denies any other significant symptoms Review of Systems Review of Systems: All systems reviewed and are unremarkable except as noted below Respiratory: + dyspnea on exertion (Very minimal) Cardiovascular: no chest pain and no palpitations Physical Exam Physical Exam: Lying in bed comfortably Constitutional: well developed, well nourished and + ill appearing; no acute distress Eyes: PERRL, conjunctivae normal, anicteric sclerae ENMT: external ear and nose normal, oropharynx normal Neck: trachea midline, no thyromegaly Respiratory: normal respiratory effort; no respiratory distress Auscultation: lungs clear to auscultation bilaterally Cardiovascular: Rate/Rhythm: regular rate and regular rhythm Heart Sounds: no murmur Gastrointestinal (Abdomen): Inspection/Auscultation: abdomen normal to inspection and normal bowel sounds; abdomen not distended Percussion/Palp ation: abdomen soft; abdomen nontender Musculoskeletal: No acute arthritis involving any joints Neurologic: moves all extremities; no focal motor deficits Alert, awake and oriented x3 Results & Data Results & Data ([facility]) Vital Signs (Past 12 Hours) Vital Signs Temp Pulse Pulse Resp BP BP Pulse Ox 06/06/20 07:23 37.1 C 67 18 120/57 L 99 06/06/20 02:51 36.7 C 79 18 159/71 H 91 06/06/20 00:09 81 06/05/20 23:42 37.2 C 77 16 139/71 94 06/05/20 23:13 36.9 C 75 16 126/96 95 Laboratory Results Short CBC 06/05/20 06/06/20 Range/Units 17:27 10:28 WBC 2.05 L (4.8-10.8) K/uL Hgb 7.3 L 8.9 L (12.0-16.0) g/dL Hct 21.9 L 26.6 L (37-47) % Plt Count 149 (130-400) K/uL Medications Administered Current Inpatient Medications Acetaminophen (Tylenol) 650 mg PO Q4H PRN PRN Reason: pain/fever Stop: 07/05/20 10:48 Aspirin (Ecotrin Ectab) 81 mg PO HS MARIA GUADALUPE Stop: 07/05/20 20:59 Last Admin: 06/05/20 20:14 Dose: 81 mg Documented by: Dextrose (Dextrose 50%) 25 - 50 ml IV UD PRN; Protocol PRN Reason: Hypoglycemia Protocol Stop: 07/05/20 10:48 Glucagon (Glucagen) 1 mg SQ UD PRN; Protocol PRN Reason: Hypoglycemia Protocol Stop: 07/05/20 10:48 Glucose (Dex4 Glucose) 4 - 8 tabs PO UD PRN; Protocol PRN Reason: Hypoglycemia Protocol Stop: 07/05/20 10:48 Glucose (Glucose 40%) 15 - 30 gm PO UD PRN; Protocol PRN Reason: Hypoglycemia Protocol Stop: 07/05/20 10:48 Insulin Aspart (Novolog Flexpen) 0 units [facility] Stop: 07/05/20 11:29 Last Admin: 06/06/20 08:15 Dose: 6 units Documented by: Insulin Glargine (Lantus Solostar Pen) 40 units [facility] Stop: 07/05/20 20:59 Last Admin: 06/05/20 20:16 Dose: 40 units Documented by: Ioversol (Optiray 320 100ml) 94 ml IV ONCE PRN PRN Reason: Interaction Checking Stop: 06/09/20 10:07 Last Admin: 06/05/20 10:08 Dose: 94 ml Documented by: Isosorbide Mononitrate (Imdur Extended Rel) 30 mg PO [facility] Stop: 07/06/20 08:59 Last Admin: 06/06/20 07:53 Dose: 30 mg Documented by: Levothyroxine S[facility] ([facility]throid) [facility] Stop: 07/06/20 06:29 Last Admin: 06/06/20 05:33 Dose: 25 mcg Documented by: Lisinopril (Zestril) 5 mg PO [facility] Stop: 07/05/20 20:59 Last Admin: 06/05/20 20:14 Dose: 5 mg Documented by: Metoprolol Succinate (Toprol Xl) 50 mg PO [facility] Stop: 07/06/20 08:59 Last Admin: 06/06/20 07:53 Dose: 50 mg Documented by: Miscellaneous (Carbohydrates For Hypoglycemia) 15 - 30 gm PO UD PRN PRN Reason: Hypoglycemia Protocol Stop: 07/05/20 10:48 Rosuvastatin Calcium (Crestor) 40 mg PO [facility] Stop: 07/05/20 20:59 Last Admin: 06/05/20 20:14 Dose: 40 mg Documented by: Venlafaxine HCl (Effexor Extended Release) 150 mg PO [facility] Stop: 07/05/20 20:59 Last Admin: 06/05/20 20:14 Dose: 150 mg Documented by:
[2020-06-06 11:13] LABS: BUN Creatinine Ratio 18.2 (10-20); Calcium 8.9 mg/dl (8.5-10.1); Creatinine Clr Calc Pharmacy 83.1 ml/min; Est GFR (Non-African American) 87.2; Potassium 4.2 mmol/L (3.5-5.1)
[2020-06-06 13:23] LABS: Estimated Average Glucose 171 mg/dl; Hemoglobin A1C 7.6 % (4.5-5.6)
--- NOTE | 2020-06-07 07:42 | Discharge Summary ---
Date of Service June 07, 2020 Admission HPI Per Admitting Provider 69-year-old female with PMH DM type II on insulin, CAD, HTN, and other problems listed below who presents to the ED by referral outpatient physician for evaluation of new onset anemia. Patient reports worsening exertional shortness of breath over the past few weeks. She also has had associated chest heaviness. Patient reports symptoms were similar to when she required a cardiac stent in the past. Patient was evaluated by her women's soccer coach on 06/03. Initially outpatient cardiac catheterization was planned however labs were obtained showing a new onset anemia and leukopenia therefore cardiac cath was canceled. Outpatient labs obtained yesterday showed WBC 1.7K, hemoglobin 6.8, platelets 148K, reticulocyte 3.4. Iron studies were within normal limits and vitamin B12 was elevated at 1514. Patient notes feeling increasingly tired. She is noticed some mild swelling around her ankles. Denies orthopnea. No fevers, chills, night sweats. Reports epigastric pain that has been ongoing for about the past 1 year. Denies vomiting, diarrhea, bright red bleeding per rectum, or dark tarry stools. She reports some lightheadedness and dizziness in the morning however no syncopal events. Outpatient chart review shows that weights have been stable. She denies any urinary symptoms. In the ED, labs show WBC 2.5K, hemoglobin 7.1, platelets 169K. Patient is hemodynamically stable. Admission Exam Per Admitting Provider Constitutional: WD/WN, vitals as above Eyes: PERRL, conjunctivae normal, anicteric sclerae ENMT: external ear and nose normal, oropharynx normal Respiratory: normal respiratory effort, lungs clear to auscultation Cardiovascular: Rate/Rhythm: regular rate and regular rhythm Vessels: normal peripheral pulses Extremities: no edema Gastrointestinal (Abdomen): Inspection/Auscultation: abdomen normal to inspection and normal bowel sounds Percussion/Palpation: + abdomen tender (Mild, epigastric) and abdomen soft; no hepatosplenomegaly Musculoskeletal: no cyanosis or clubbing, extremities motor strength 5/5 Skin: no rashes, warm and dry Neurologic: PERRL, EOMI, accommodation nl, no face palsy, no dysarthria Psychiatric: A+Ox3, euthymic affect Principal Diagnosis Anemia with leukopenia, status post 2 units of PRBC,Stable a CAD, hypertension, type 2 diabetes Discharge Exam Constitutional well developed, well nourished and + ill appearing; no acute distress Eyes PERRL, conjunctivae normal, anicteric sclerae ENMT external ear and nose normal, oropharynx normal Neck trachea midline, no thyromegaly Respiratory normal respiratory effort; no respiratory distress Auscultation: lungs clear to auscultation bilaterally Cardiovascular Rate/Rhythm: regular rate and regular rhythm Heart Sounds: no murmur Gastrointestinal (Abdomen) Inspection/Auscultation: abdomen normal to inspection and normal bowel sounds; abdomen not distended Percussion/Palpation: abdomen soft; abdomen nontender Neurologic moves all extremities; no focal motor deficits Discharge Data Allergies Allergy/AdvReac Type Severity Reaction Status Date / Time No Known Allergies Allergy Unverified 06/05/20 09:07 Consultations 06/05/20 09:04 ED Decision to Admit Stat Ordered Studies 06/05/20 09:44 CT abd pelvis IV con only Stat Hospital Course (1) Anemia: Admitted with symptomatic anemia without any history of blood loss Hemoglobin 7.1 on admission with low white cell count Peripheral blood smear::In summary, the patient has leucopenia, macrocytic anemia with normal reticulocyte count. Tear drop red cells and some hypolobated, hypogranular neutrophils are noted. The findings are concerning for a bone ma rrow disorder, particularly myelodysplastic syndrome and hematology work up is suggested. No left shift, and specifically no blasts are noted. Likely has myelodysplastic syndrome/myelofibrosis/aplastic anemia Appointment with computer technology instructor will be made within 1 to 2 weeks Status post 2 units of PRBC transfusion Hemoglobin is 8.9 today We will discharge home this afternoon (2) Leukopenia: -Admit to [facility] with telemetry -Patient presenting by referral of outpatient physician for evaluation of new onset anemia and leukopenia -In the ED, WBC 2.5K, Hgb 7.1, MCV 109, retic count 2.8; noted normal platelets 169K, normal renal functions, normal LFTs -Outpatient labs showed normal iron studies, normal folic acid, mildly elevated vitamin B12 1514 -Anaplasma smear negative, Lyme - HEAD: No headache, dizziness, or head injury. -Check peripheral smear-as above -CT ABD/pelvis -unremarkable -Likely needs bone marrow biopsy, will discuss with hematology/oncology -Discussed with computer technology instructor (3) CAD (coronary artery disease): -Appears stable -Shortness of breath and chest heaviness likely secondary to anemia -Continue aspirin, statin, beta-carlos, nitrate, SAMREEN inhibitor -No cardiac symptoms (4) Hypertension: -BP controlled -Continue isosorbide, lisinopril, metoprolol (5) DM type 2 (diabetes mellitus, type 2): -Hgb A1c 8.1 01/2020 -Utilize Lantus and NovoLog per protocol while hospitalized (6) Hypothyroidism: -Continue levothyroxine -Check TSH-normal (7) DVT prophylaxis: -SCDs due to anemia Total Time Total Time Spent Total Time Spent (In Minutes): 35 minutes Total Time Includes: Examination of the Patient, Discharge Planning, Medication Reconciliation and Communication With Other Providers Discharge Plan Discharge Items Patient Disposition: Home - Self-Care Reason For Visit: ANEMIA Discharge Diagnosis: Anemia with leukopenia, status post 2 units of PRBC,Stable a CAD, hypertension, type 2 diabetes Condition on Discharge: Fair Activity: Resume your previous activity Non-emergency contact: Primary Care Provider Call non-emergency contact if: you have any medication questions and your symptoms worsen Follow-up/Referrals: Dhruv Moss MD [Primary Care Provider] - 06/16/20 12:00 pm (Your doctor's office will call on Monday to get an earlier appointment and you will need to have a CBC test during that appointment.) Diet: Carb Consistent or DM2 and Heart Healthy Ambulatory Orders: Complete Blood Count with Diff (Routine) Timeframe: 1 Week Location: Determined by Patient Ordered By: Gasper Zafar Attending Provider Instructions: You have low white cell count known as leukopenia and have neutropenia as well: He have to take precautions to prevent getting any infection as advised. Usual neutropenic precautions as follows: Use facemask Stay clean. Wash your hands often, including before and after eating or using the bathroom. ... Avoid sick people. ... Avoid recently vaccinated people. ... Stay away from large crowds. ... Avoid animals. ... Prevent constipation. Please come to emergency department in case of any fever. You will be receiving a phone call from [facility] hematology/oncology office to set up an appointment. Pending Studies at Discharge: No Stand-Alone Forms: My [employer], Work/School Release (Inpt), Smoking Cessation Medications and DC Order Prescriptions: Continued metoprolol succinate 50 mg tablet extended release 24 hr 50 mg PO QAM RF: 0 isosorbide mononitrate 30 mg tablet extended release 24 hr 30 mg PO QAM RF: 0 venlafaxine 150 mg capsule,extended release 24hr 150 mg PO HS RF: 0 cyanocobalamin (vitamin B-12) [Vitamin B-12] 1,000 mcg Tablet 1,000 mcg PO QAM RF: 0 aspirin 81 mg Tablet,Delayed Release (Dr/Ec) 81 mg PO HS RF: 0 levothyroxine 25 mcg tablet 25 mcg PO QAM RF: 0 metformin 1,000 mg tablet 1,000 mg PO BIDM RF: 0 lisinopril 10 mg tablet 5 mg PO HS RF: 0 Novolin R Flexpen 100 unit/mL (3 mL) Insulin Pen 0 unit SUBCUT .SLIDING SCALE RF: 0 rosuvastatin 40 mg tablet 40 mg PO HS RF: 0 Levemir U-100 Insulin 100 unit/mL solution 54 unit SUBCUT HS RF: 0 cholecalciferol (vitamin D3) [Vitamin D3] 125 mcg (5,000 unit) Tablet 125 mcg PO QAM RF: 0 Tradjenta 5 mg tablet 5 mg PO QAM RF: 0 Discharge Orders: Discharge Order (Routine); Ordered 06/06/20 Ordered By: Gasper Barrera Admission Data Admit Date/Time: 06/05/20 09:08 Attending Provider: Gasper Barrera Admit Provider: Gasper Barrera Primary Care Provider: Dhruv Moss Other Providers: Gasper Barrera Other Interventions: Discharge Summary Assessment (RN) Last Done: 06/06/20 13:16 DC Date/Time DO NOT enter until pt leaves facility: 06/06/20 13:58
== END 2020-06-06 13:58 | disposition home or self-care (01) | DRG 812 ==
LOC: ED 07:53 → 2N 09:08

== ENCOUNTER 2023-04-04 14:00 | Inpatient (IN) ==
[2023-04-04 15:01] LABS: INR 1.1 (0.9-1.1); Partial Thromboplastin Ratio 0.9; Partial Thromboplastin Time 25.7 Seconds (21.0-31.0); Prothrombin Time 12.1 Seconds (9.0-12.0)
[2023-04-04 15:14] LABS: Basophils # (auto) 0.03 K/uL (0-0.2); Basophils % (auto) 0.2 %; Dohle Bodies 1+; Eosinophils # (auto) 0.02 K/uL (0-0.50); Eosinophils % (auto) 0.1 %; Hematocrit (blood only) 29.6 % (37.0-47.0); Hemoglobin 10.3 g/dl (12.0-16.0); Lymphocytes # (auto) 4.93 K/uL (1.2-3.4); Lymphocytes % (auto) 27.5 %; Mean Corpuscular Hemoglobin 38.4 pg (25.0-34.0); Mean Corpuscular Hgb Conc 34.8 g/dL (32.0-36.0); Mean Corpuscular Volume 110.4 fL (80.0-100.0); Mean Platelet Volume 9.8 fL (9.4-12.4); Monocytes # (auto) 0.57 K/uL (0.11-0.59); Monocytes % (auto) 3.2 %; Platelet Count 30 K/uL (130-400); Platelet Estimate Decreased (Normal); Polychromasia 1+; RDW Coefficient of Variation 13.3 % (11.5-14.5); RDW Standard Deviation 53.4 fL (36.4-46.3); Red Blood Count 2.68 M/uL (4.20-5.40); Tear Drop Cells 1+; Toxic Vacuolation 1+; White Blood Count 17.95 K/ul (4.8-10.8)
--- NOTE | 2023-04-04 15:15 | Electrocardiogram Report ---
Test Reason : Blood Pressure : / mmHG Vent. Rate : 105 BPM Atrial Rate : 105 BPM P-R Int : 150 ms QRS Dur : 080 ms QT Int : 348 ms P-R-T Axes : 008 -11 040 degrees QTc Int : 459 ms Sinus tachycardia Anterolateral infarct (cited on or before 05-JUN-2020) Abnormal ECG When compared with ECG of 05-JUN-2020 08:34, Borderline criteria for Inferior infarct are no longer Present Confirmed by Henry Ferrera ([id number]) on 04/04/2023 3:15:09 PM Referred By: Confirmed By:Henry Ferrera
[2023-04-04 15:34] LABS: Albumin Globulin Ratio 0.9 (0.9-2); Albumin Level 3.7 gm/dl (3.4-5.0); BUN Creatinine Ratio 19.2 (10-20); Bilirubin,Total 0.9 mg/dl (0.2-1.0); Calcium 8.9 mg/dl (8.6-10.3); Creatinine Clr Calc Pharmacy 41.5 ml/min; Est GFR (African American) 51.6 ml/min; Est GFR (Non-African American) 44.5 ml/min; Globulin 4.1 gm/dl (2.5-4.0); Magnesium 0.9 mg/dl (1.7-2.4); Potassium 4.8 mmol/L (3.5-5.1); Total Protein 7.8 gm/dl (6.0-8.3); Troponin I High Sensitivity 8.9 pg/ml (0-14)
[2023-04-04 16:04] LABS: Appearance Urine Turbid (Clear); Bacteria Urine Automated 4+ (Negative); Bilirubin Urine Negative (Negative); Blood Urine 1+ (Negative); Color Urine Yellow; Glucose Urine UA 3+ (Negative); Ketones Urine Trace (Negative); Leukocyte Esterase Urine 2+ (Negative); Nitrite Urine Negative (Negative); Protein Urine 2+ (Negative); RBC Urine Automated 0-4 /hpf (0-4); Urobilinogen Urine Negative (Negative); WBC Urine Automated >30 /hpf (0-5); pH Urine 5.5 (4.5-7.5)
[2023-04-04] MEDS ORDERED: SODIUM CHLORIDE 0.9% 1000ML 2,000 ML IV ONE (18:51)
[2023-04-04] MEDS ORDERED: CEFEPIME 2,000 MG/20 ML VIAL IV STA (18:51)
[2023-04-04] MEDS ORDERED: OPTIRAY 320 100ml IV ONE (19:14)
--- NOTE | 2023-04-04 19:40 | CT Scan Report ---
Exam(s): CT HEAD Without Contrast EXAM: CT Head Without Intravenous Contrast CLINICAL HISTORY: Reason for exam: ams, fall. TECHNIQUE: Axial computed tomography images of the head/brain without intravenous contrast. CTDI is 113.43 mGy and DLP is 1718.51 mGy-cm. Automated exposure control was utilized for the study. A dose lowering technique was utilized adhering to the principles of ALARA. COMPARISON: No relevant prior studies available. FINDINGS: Brain: No hemorrhage, extra-axial fluid collection, mass effect, or edema. Mild chronic microvascular ischemic changes. Ventricles: Unremarkable. Bones/joints: Unremarkable. No fracture. Soft tissues: Unremarkable. Sinuses: No acute sinusitis. Mastoid air cells: Unremarkable as visualized. IMPRESSION: 1. No acute intracranial abnormality. Electronically signed by: Austin Dowell MD 04/04/23 19:39 PM
--- NOTE | 2023-04-04 19:44 | CT Scan Report ---
Exam(s): CT ABDOMEN + PELVIS With Contrast IV Amt: 81 ml optiray 320 EXAM: CT Abdomen and Pelvis With Intravenous Contrast CLINICAL HISTORY: Reason for exam: uti, sepsis, fall. TECHNIQUE: Axial computed tomography images of the abdomen and pelvis with intravenous contrast. CTDI is 19 mGy and DLP is 1036 mGy-cm. Automated exposure control was utilized for the study. A dose lowering technique was utilized adhering to the principles of ALARA. CONTRAST: Patient received 81 ml optiray 320 of IV contrast COMPARISON: No relevant prior studies available. FINDINGS: ABDOMEN: Liver: Unremarkable. Gallbladder and bile ducts: Cholecystectomy. Pancreas: Unremarkable. Spleen: Unremarkable. Adrenals: Unremarkable. Kidneys and ureters: Patchy heterogeneous enhancement within the left kidney with perinephric inflammatory changes and urothelial thickening consistent with acute pyelonephritis. No perinephric abscess. Stomach and bowel: Unremarkable. PELVIS: Appendix: No findings to suggest acute appendicitis. Bladder: Unremarkable. Reproductive: Unremarkable as visualized. ABDOMEN and PELVIS: Intraperitoneal space: Unremarkable. No free air. No significant fluid collection. Bones/joints: Degenerative changes in the lumbar spine status post instrumented fusion. Soft tissues: Unremarkable. Vasculature: Unremarkable. Lymph nodes: Unremarkable. IMPRESSION: Patchy heterogeneous enhancement within the left kidney with perinephric inflammatory changes and urothelial thickening consistent with acute pyelonephritis. No perinephric abscess. Electronically signed by: Austin Dowell MD 04/04/23 19:43 PM
[2023-04-04] MEDS: MAGNESIUM SULFATE / D5W 1 GM/100 ML BAG IV SCH ×2 (20:12→21:14)
--- NOTE | 2023-04-04 20:58 | Emergency Department Note ---
Impression & Plan Sepsis, Anemia, Acute pyelonephritis, Acute hyperglycemia, Hypomagnesemia, Thrombocytopenia, Leukocytosis, Myelodysplastic syndrome ED Provider Note NAME: KELIN TANG AGE: 72 SEX: F ARRIVES VIA: Walk-In INFORMANT: Patient ED PROVIDER(S): Tae Soria MD CHIEF COMPLAINT: Weakness, confusion. PLAN: Disposition: Admit MEDICAL DECISION MAKING: The patient is a pleasant 72-year-old woman with a past medical history of myelodysplastic syndrome with chronic thrombocytopenia, CAD, HTN, HLD, IDDM2 who presents to the emergency department via walk-in, accompanied by her daughter, who is an RN, for evaluation of worsening weakness and confusion over the past several days where she has had a fall where she hit her head several days ago but did not seek evaluation. They report she has had chills but no fevers. They report that she has had back pain and blood in her urine. She further has felt short of breath. They deny any cough or chest pain. They deny any diarrhea or constipation. Of note, the patient did arrive to emergency department during time of high volume, acuity and prolonged emergency department waiting times. Critical pathways initiated from triage. On my evaluation the patient is fatigued appearing but no acute distress, afebrile with heart in the 100s and vital signs otherwise stable. She appears clinically dry. 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 Otherwise no focal neurologic deficits. She is moving all extremities equally. Head is atraumatic. EKG without overt acute ischemia. Chest x-ray negative for acute cardiopulmonary process. WBC 17.9K with neutrophil predominance though no left shift. H/H is similar to recent values as is platelets of 30K per daughter. Chemistry demonstrates sodium of 124 however corrects to 133-136 with a glucose of 586. Chemistries without metabolic acidosis. Glucose did improve to 416 with IV fluid alone. Osmolality 305 consistent with the patient's clinically dry appearance. Initial lactic acid 2.9, improved to 1.6 following IV fluid hydration. Magnesium was severely low at 0.9 and she was treated with 4g magnesium sulfate. LFTs within normal limits. High-sensitivity troponin 8.9, within normal limits. Procalcitonin is elevated at 1.9. TSH is normal. UA is consistent with infection with 2+ leukocyte esterase, WBCs and 4+ bacteria. CT of the head negative for acute abnormality. CT of the abdomen pelvis demonstrates left-sided pyelonephritis. Blood cultures were drawn. The patient has been treated with 30cc/kg per IBW. Given the patient's history of myelodysplastic syndrome now with pyelonephritis she was treated with cefepime. Patient and her daughter agree with plan for admission. Heart rate had demonstrated improvement in blood pressure remained stable. Case was discussed with Dr. Hancock [facility], who will evaluate the patient for admission. Further management per admitting team. Triage Nursing notes reviewed and agree them. Prior/outside medical records reviewed Vital Signs: reviewed Differential diagnosis: Infection, dehydration, metabolic abnormality, hypo/hyperglycemia, electrolyte disturbance, anemia, hypoxia, cardiac sources, intracerebral event, toxicologic, neurologic, as well as other pathologies. ER treatment provided: See below. Diagnostics interpreted by me: ECG: Sinus tachycardia, 105 bpm, no ectopy, no overt ST elevation or depression, QTc 459, QRS 80. Cardiac Monitoring: An order for continuous cardiac monitoring was placed and demonstrated Sinus tachycardia, 105 bpm, no ectopy. Laboratory studies: See below Imaging studies: See below Consultation(s): Case was discussed with Dr. Hancock, [facility], who will evaluate the patient for admission. HPI: The patient is a pleasant 72-year-old woman with a past medical history of myelodysplastic syndrome with chronic thrombocytopenia, CAD, HTN, HLD, IDDM2 who presents to the emergency department via walk-in, accompanied by her daughter, who is an RN, for evaluation of worsening weakness and confusion over the past several days where she has had a fall where she hit her head several days ago but did not seek evaluation. They report she has had chills but no fevers. They report that she has had back pain and blood in her urine. She further has felt short of breath. They deny any cough or chest pain. They deny any diarrhea or constipation. ROS: See above HPI for pertinent positives & negatives. A total of 10 systems reviewed and were otherwise negative. VITALS:See Below PHYSICAL EXAMINATION: GENERAL: Awake, alert, fatigued-appearing, in no distress HENT: Normocephalic, atraumatic. Oropharynx with dry mucous membranes and otherwise unremarkable. EYES: Normal conjunctiva. Sclera non-icteric. NECK: Supple. No nuchal rigidity. FROM. No JVD. RESPIRATORY: Clear to auscultation. CARDIAC: Tachcyardic rate, normal rhythm. Extremities warm and well perfused. Pulses equal. ABDOMEN: Soft, non-distended. No tenderness to palpation. No rebound or guarding. No masses. RECTAL: Deferred. MUSCULOSKELETAL: Chest examination reveals no tenderness. The back is symmetrical on inspection without obvious abnormality. There is no CVA tenderness to palpation. No joint edema. LOWER EXTREMITIES: Calves are equal size bilaterally and non-tender. No edema. No discoloration. NEURO: Baseline left eye weakness from prior [place]. Otherwise, CN II-XII grossly intact. 5/5 strength and SILT x 4 extremities. Cerebellar function intact including [id number]. SKIN: No rash or jaundice noted. ED COURSE: Critical Care: I have personally spent greater than 65 minutes of critical care time in the direct management of this patient. This includes bedside care, interpretation of diagnostic studies, and testing, discussion with consultants, patient, and family members, and other required patient management activities. This 65 minutes is in excess of all separately billable procedures. Tae Soria MD Past Med/Surg History Medical History (Updated 04/05/23 @ 15:49 by Tae Soria MD) CAD (coronary artery disease) 2017-EDIL to LAD Depression DM type 2 (diabetes mellitus, type 2) Dyslipidemia Hypertension Hypothyroidism Myelodysplastic syndrome Osteoarthritis Surgical History H/O dilation and curettage H/O tubal ligation History of cholecystectomy History of partial hysterectomy History of spinal fusion Family History Father Heart disease Mother Heart disease Sister Breast cancer Sister Multiple myeloma Brother Prostate cancer Social History Smoking Status: Never smoker Hx Alcohol Use: No Hx Substance Use: No Preferred Language: Finnish Communication Ability: Effective Combination Technician Required: No Beliefs That Will Affect Care: None Current Living Situation: Spouse Feels Safe at Home: Yes Assistive Devices: Walker Allergies Allergies Allergy/AdvReac Type Severity Reaction Status Date / Time No Known Allergies Allergy Verified 07/12/21 10:31 Home Meds Home Medications Medication Instructions Recorded Confirmed cholecalciferol (vitamin D3) 125 125 mcg PO QAM 06/05/20 07/12/21 mcg (5,000 unit) tablet (Vitamin D3) insulin detemir U-100 100 unit/mL 28 unit subcut BIDWMEAL 06/05/20 07/12/21 subcutaneous solution (Levemir U-100 Insulin) insulin regular human 100 unit/mL 0 unit subcut .SLIDING SCALE 06/05/20 07/12/21 (3 mL) subcutaneous pen (Novolin R FlexPen) isosorbide mononitrate 30 mg 30 mg PO QAM 06/05/20 07/12/21 tablet,extended release 24 hr metformin 1,000 mg tablet 1,000 mg PO BIDM 06/05/20 07/12/21 metoprolol succinate 50 mg 50 mg PO QAM 06/05/20 07/12/21 tablet,extended release 24 hr venlafaxine 150 mg 150 mg PO HS 06/05/20 07/12/21 capsule,extended release 24 hr (Effexor XR) omeprazole 20 mg capsule,delayed 20 mg PO DAILY 10/13/20 07/12/21 release tramadol 50 mg tablet 50 mg PO Q6H PRN Pain 10/27/20 07/12/21 acyclovir 800 mg tablet 800 mg PO BID 04/05/23 04/05/23 atorvastatin 40 mg tablet 40 mg PO DAILY 04/05/23 04/05/23 levothyroxine 75 mcg tablet 75 mcg PO DAILY 04/05/23 04/05/23 mirabegron 50 mg tablet,extended 50 mg PO DAILY 04/05/23 04/05/23 release 24 hr (Myrbetriq) solifenacin 5 mg tablet 5 mg PO DAILY 04/05/23 04/05/23 Results & Data (ED) Vital Signs Vital Signs - 24 hr 04/04/23 18:32 04/04/23 18:33 04/04/23 19:56 Pulse Rate 107 H Pulse Rate [Apical] 103 H Pulse Rhythm [Apical] Regular Respiratory Rate 23 Respiratory Effort / Characteristics Respiratory Depth Respiratory Pattern Blood Pressure [Left Arm] 156/95 H Blood Pressure Mean [Left Arm] 115 Blood Pressure Position [Left Arm] Pulse Oximetry 96 96 Oxygen Delivery Method Room Air Room Air 04/04/23 20:00 04/04/23 21:00 04/04/23 22:00 Pulse Rate Pulse Rate [Apical] 100 H 100 H 98 H Pulse Rhythm [Apical] Regular Regular Respiratory Rate 20 20 20 Respiratory Effort / Characteristics Non-Labored Non-Labored Spontaneous Non-Labored Spontaneous Respiratory Depth Normal Normal Normal Respiratory Pattern Regular Blood Pressure [Left Arm] 141/74 H 137/71 123/57 L Blood Pressure Mean [Left Arm] 96 93 79 Blood Pressure Position [Left Arm] Lying Lying Lying Pulse Oximetry 97 98 99 Oxygen Delivery Method Room Air Room Air Room Air Laboratory Data Attestation: I reviewed the patient's lab results. 04/04/23 14:29 04/04/23 14:29 Lab Results 04/04/23 04/04/23 04/04/23 Range/Units 14:29 14:29 14:29 WBC 17.95 H (4.8-10.8) K/ul RBC 2.68 L (4.20-5.40) M/uL Hgb 10.3 L (12.0-16.0) g/dl Hct 29.6 L (37.0-47.0) % MCV 110.4 H (80.0-100.0) fL MCH 38.4 H (25.0-34.0) pg MCHC 34.8 (32.0-36.0) g/dL RDW Std Deviation 53.4 H (36.4-46.3) fL RDW Coeff of Evin 13.3 (11.5-14.5) % Plt Count 30 L (130-400) K/uL MPV 9.8 (9.4-12.4) fL Immature Gran % (Auto) 0.0 % Neut % (Auto) 69.0 % Lymph % (Auto) 27.5 % Lynn % (Auto) 3.2 % Eos % (Auto) 0.1 % Baso % (Auto) 0.2 % Neut # (Auto) 12.40 H (1.40-6.50) K/uL Lymph # (Auto) 4.93 H (1.2-3.4) K/uL Lynn # (Auto) 0.57 (0.11-0.59) K/uL Eos # (Auto) 0.02 (0-0.50) K/uL Baso # (Auto) 0.03 (0-0.2) K/uL Immature Gran # (Auto) 0.00 L (0.01-0.20) K/uL Toxic Vacuolation 1+ Dohle Bodies 1+ Platelet Estimate Decreased L (Normal) Polychromasia 1+ Tear Drop Cells 1+ PT 12.1 H (9.0-12.0) Seconds INR 1.1 (0.9-1.1) APTT 25.7 (21.0-31.0) Seconds PTT Ratio 0.9 Sodium 124 L (136-145) mmol/L Potassium 4.8 (3.5-5.1) mmol/L Chloride 87 L (98-107) mmol/L Carbon Dioxide 24 (21-32) mmol/L Anion Gap 13 H (3-11) BUN 23 (6-23) mg/dl Creatinine 1.20 (0.6-1.2) mg/dl Est Cr Clr Drug Dosing 41.5 ml/min Est GFR ( Amer) 51.6 ml/min Est GFR (Non-Af Amer) 44.5 ml/min BUN/Creatinine Ratio 19.2 (10-20) Glucose 586 H* (70-99(Fasting)) mg/dl POC Glucose (70-99) mg/dl Osmolality (280-300) mOsm/kg Lactate (0.4-2.0) mmol/L Calcium 8.9 (8.6-10.3) mg/dl Magnesium 0.9 L* (1.7-2.4) mg/dl Total Bilirubin 0.9 (0.2-1.0) mg/dl AST 11 L (13-39) U/L ALT 11 (7-52) U/L Alkaline Phosphatase 79 (34-104) U/L Troponin I High Sens 8.9 (0-14) pg/ml Total Protein 7.8 (6.0-8.3) gm/dl Albumin 3.7 (3.4-5.0) gm/dl Globulin 4.1 H (2.5-4.0) gm/dl Albumin/Globulin Ratio 0.9 (0.9-2) Procalcitonin (0-0.5) ng/ml TSH (0.300-4.500) uIu/ml Urine Color Urine Appearance (Clear) Urine pH (4.5-7.5) Ur Specific [place] (1.000-1.030) Urine Protein (Negative) Urine Glucose (UA) (Negative) Urine Ketones (Negative) Urine Blood (Negative) Urine Nitrite (Negative) Urine Bilirubin (Negative) Urine Urobilinogen (Negative) Ur Leukocyte Esterase (Negative) Urine WBC (Auto) (0-5) /hpf Urine RBC (Auto) (0-4) /hpf U Hyaline Cast (Auto) (0-5) /lpf U Epithel Cells (Auto) (0-5) /lpf Urine Bacteria (Auto) (Negative) Enterobacterales (PCR) (NotDetected) E. coli (PCR) (NotDetected) SARS-CoV-2, RNA, NAAT (NEGATIVE) mcr-1 Colistin Res Gene PCR (NotDetected) blaIMP Car res Gene PCR (NotDetected) KPC-Carbap Res Gene PCR (NotDetected) blaNDM Car Res Gene PCR (NotDetected) OXA-48 Carbapenem Resis Gene (PCR) (NotDetected) blaVIM Car Res Gene PCR (NotDetected) CTX-M Gene Resistance (PCR) (NotDetected) Bld Cult ID Panel PCR (NotDetected) 04/04/23 04/04/23 04/04/23 Range/Units 14:29 15:47 19:32 WBC (4.8-10.8) K/ul RBC (4.20-5.40) M/uL Hgb (12.0-16.0) g/dl Hct (37.0-47.0) % MCV (80.0-100.0) fL MCH (25.0-34.0) pg MCHC (32.0-36.0) g/dL RDW Std Deviation (36.4-46.3) fL RDW Coeff of Evin (11.5-14.5) % Plt Count (130-400) K/uL MPV (9.4-12.4) fL Immature Gran % (Auto) % Neut % (Auto) % Lymph % (Auto) % Lynn % (Auto) % Eos % (Auto) % Baso % (Auto) % Neut # (Auto) (1.40-6.50) K/uL Lymph # (Auto) (1.2-3.4) K/uL Lynn # (Auto) (0.11-0.59) K/uL Eos # (Auto) (0-0.50) K/uL Baso # (Auto) (0-0.2) K/uL Immature Gran # (Auto) (0.01-0.20) K/uL Toxic Vacuolation Dohle Bodies Platelet Estimate (Normal) Polychromasia Tear Drop Cells PT (9.0-12.0) Seconds INR (0.9-1.1) APTT (21.0-31.0) Seconds PTT Ratio Sodium (136-145) mmol/L Potassium (3.5-5.1) mmol/L Chloride (98-107) mmol/L Carbon Dioxide (21-32) mmol/L Anion Gap (3-11) BUN (6-23) mg/dl Creatinine (0.6-1.2) mg/dl Est Cr Clr Drug Dosing ml/min Est GFR ( Amer) ml/min Est GFR (Non-Af Amer) ml/min BUN/Creatinine Ratio (10-20) Glucose (70-99(Fasting)) mg/dl POC Glucose (70-99) mg/dl Osmolality 305 H (280-300) mOsm/kg Lactate (0.4-2.0) mmol/L Calcium (8.6-10.3) mg/dl Magnesium (1.7-2.4) mg/dl Total Bilirubin (0.2-1.0) mg/dl AST (13-39) U/L ALT (7-52) U/L Alkaline Phosphatase (34-104) U/L Troponin I High Sens (0-14) pg/ml Total Protein (6.0-8.3) gm/dl Albumin (3.4-5.0) gm/dl Globulin (2.5-4.0) gm/dl Albumin/Globulin Ratio (0.9-2) Procalcitonin (0-0.5) ng/ml TSH 1.223 (0.300-4.500) uIu/ml Urine Color Yellow Urine Appearance Turbid A (Clear) Urine pH 5.5 (4.5-7.5) Ur Specific [place] 1.020 (1.000-1.030) Urine Protein 2+ H (Negative) Urine Glucose (UA) 3+ H (Negative) Urine Ketones Trace H (Negative) Urine Blood 1+ H (Negative) Urine Nitrite Negative (Negative) Urine Bilirubin Negative (Negative) Urine Urobilinogen Negative (Negative) Ur Leukocyte Esterase 2+ H (Negative) Urine WBC (Auto) >30 H (0-5) /hpf Urine RBC (Auto) 0-4 (0-4) /hpf U Hyaline Cast (Auto) 1-5 (0-5) /lpf U Epithel Cells (Auto) 5-10 H (0-5) /lpf Urine Bacteria (Auto) 4+ H (Negative) Enterobacterales (PCR) (NotDetected) E. coli (PCR) (NotDetected) SARS-CoV-2, RNA, NAAT (NEGATIVE) mcr-1 Colistin Res Gene PCR (NotDetected) blaIMP Car res Gene PCR (NotDetected) KPC-Carbap Res Gene PCR (NotDetected) blaNDM Car Res Gene PCR (NotDetected) OXA-48 Carbapenem Resis Gene (PCR) (NotDetected) blaVIM Car Res Gene PCR (NotDetected) CTX-M Gene Resistance (PCR) (NotDetected) Bld Cult ID Panel PCR (NotDetected) 04/04/23 04/04/23 04/04/23 Range/Units 19:32 19:32 19:32 WBC (4.8-10.8) K/ul RBC (4.20-5.40) M/uL Hgb (12.0-16.0) g/dl Hct (37.0-47.0) % MCV (80.0-100.0) fL MCH (25.0-34.0) pg MCHC (32.0-36.0) g/dL RDW Std Deviation (36.4-46.3) fL RDW Coeff of Evin (11.5-14.5) % Plt Count (130-400) K/uL MPV (9.4-12.4) fL Immature Gran % (Auto) % Neut % (Auto) % Lymph % (Auto) % Lynn % (Auto) % Eos % (Auto) % Baso % (Auto) % Neut # (Auto) (1.40-6.50) K/uL Lymph # (Auto) (1.2-3.4) K/uL Lynn # (Auto) (0.11-0.59) K/uL Eos # (Auto) (0-0.50) K/uL Baso # (Auto) (0-0.2) K/uL Immature Gran # (Auto) (0.01-0.20) K/uL Toxic Vacuolation Dohle Bodies Platelet Estimate (Normal) Polychromasia Tear Drop Cells PT (9.0-12.0) Seconds INR (0.9-1.1) APTT (21.0-31.0) Seconds PTT Ratio Sodium (136-145) mmol/L Potassium (3.5-5.1) mmol/L Chloride (98-107) mmol/L Carbon Dioxide (21-32) mmol/L Anion Gap (3-11) BUN (6-23) mg/dl Creatinine (0.6-1.2) mg/dl Est Cr Clr Drug Dosing ml/min Est GFR ( Amer) ml/min Est GFR (Non-Af Amer) ml/min BUN/Creatinine Ratio (10-20) Glucose (70-99(Fasting)) mg/dl POC Glucose (70-99) mg/dl Osmolality (280-300) mOsm/kg Lactate 2.9 H* (0.4-2.0) mmol/L Calcium (8.6-10.3) mg/dl Magnesium (1.7-2.4) mg/dl Total Bilirubin (0.2-1.0) mg/dl AST (13-39) U/L ALT (7-52) U/L Alkaline Phosphatase (34-104) U/L Troponin I High Sens (0-14) pg/ml Total Protein (6.0-8.3) gm/dl Albumin (3.4-5.0) gm/dl Globulin (2.5-4.0) gm/dl Albumin/Globulin Ratio (0.9-2) Procalcitonin 1.99 H (0-0.5) ng/ml TSH (0.300-4.500) uIu/ml Urine Color Urine Appearance (Clear) Urine pH (4.5-7.5) Ur Specific [place] (1.000-1.030) Urine Protein (Negative) Urine Glucose (UA) (Negative) Urine Ketones (Negative) Urine Blood (Negative) Urine Nitrite (Negative) Urine Bilirubin (Negative) Urine Urobilinogen (Negative) Ur Leukocyte Esterase (Negative) Urine WBC (Auto) (0-5) /hpf Urine RBC (Auto) (0-4) /hpf U Hyaline Cast (Auto) (0-5) /lpf U Epithel Cells (Auto) (0-5) /lpf Urine Bacteria (Auto) (Negative) Enterobacterales (PCR) DETECTED A (NotDetected) E. coli (PCR) DETECTED A (NotDetected) SARS-CoV-2, RNA, NAAT (NEGATIVE) mcr-1 Colistin Res Gene PCR Not Detected (NotDetected) blaIMP Car res Gene PCR Not Detected (NotDetected) KPC-Carbap Res Gene PCR Not Detected (NotDetected) blaNDM Car Res Gene PCR Not Detected (NotDetected) OXA-48 Carbapenem Resis Gene (PCR) Not Detected (NotDetected) blaVIM Car Res Gene PCR Not Detected (NotDetected) CTX-M Gene Resistance (PCR) Not Detected (NotDetected) Bld Cult ID Panel PCR See PCR Comment (NotDetected) 04/04/23 04/04/23 04/04/23 Range/Units 21:12 21:15 21:21 WBC (4.8-10.8) K/ul RBC (4.20-5.40) M/uL Hgb (12.0-16.0) g/dl Hct (37.0-47.0) % MCV (80.0-100.0) fL MCH (25.0-34.0) pg MCHC (32.0-36.0) g/dL RDW Std Deviation (36.4-46.3) fL RDW Coeff of Evin (11.5-14.5) % Plt Count (130-400) K/uL MPV (9.4-12.4) fL Immature Gran % (Auto) % Neut % (Auto) % Lymph % (Auto) % Lynn % (Auto) % Eos % (Auto) % Baso % (Auto) % Neut # (Auto) (1.40-6.50) K/uL Lymph # (Auto) (1.2-3.4) K/uL Lynn # (Auto) (0.11-0.59) K/uL Eos # (Auto) (0-0.50) K/uL Baso # (Auto) (0-0.2) K/uL Immature Gran # (Auto) (0.01-0.20) K/uL Toxic Vacuolation Dohle Bodies Platelet Estimate (Normal) Polychromasia Tear Drop Cells PT (9.0-12.0) Seconds INR (0.9-1.1) APTT (21.0-31.0) Seconds PTT Ratio Sodium (136-145) mmol/L Potassium (3.5-5.1) mmol/L Chloride (98-107) mmol/L Carbon Dioxide (21-32) mmol/L Anion Gap (3-11) BUN (6-23) mg/dl Creatinine (0.6-1.2) mg/dl Est Cr Clr Drug Dosing ml/min Est GFR ( Amer) ml/min Est GFR (Non-Af Amer) ml/min BUN/Creatinine Ratio (10-20) Glucose (70-99(Fasting)) mg/dl POC Glucose 565 H* (70-99) mg/dl Osmolality (280-300) mOsm/kg Lactate 1.6 (0.4-2.0) mmol/L Calcium (8.6-10.3) mg/dl Magnesium (1.7-2.4) mg/dl Total Bilirubin (0.2-1.0) mg/dl AST (13-39) U/L ALT (7-52) U/L Alkaline Phosphatase (34-104) U/L Troponin I High Sens (0-14) pg/ml Total Protein (6.0-8.3) gm/dl Albumin (3.4-5.0) gm/dl Globulin (2.5-4.0) gm/dl Albumin/Globulin Ratio (0.9-2) Procalcitonin (0-0.5) ng/ml TSH (0.300-4.500) uIu/ml Urine Color Urine Appearance (Clear) Urine pH (4.5-7.5) Ur Specific [place] (1.000-1.030) Urine Protein (Negative) Urine Glucose (UA) (Negative) Urine Ketones (Negative) Urine Blood (Negative) Urine Nitrite (Negative) Urine Bilirubin (Negative) Urine Urobilinogen (Negative) Ur Leukocyte Esterase (Negative) Urine WBC (Auto) (0-5) /hpf Urine RBC (Auto) (0-4) /hpf U Hyaline Cast (Auto) (0-5) /lpf U Epithel Cells (Auto) (0-5) /lpf Urine Bacteria (Auto) (Negative) Enterobacterales (PCR) (NotDetected) E. coli (PCR) (NotDetected) SARS-CoV-2, RNA, NAAT NEGATIVE (NEGATIVE) mcr-1 Colistin Res Gene PCR (NotDetected) blaIMP Car res Gene PCR (NotDetected) KPC-Carbap Res Gene PCR (NotDetected) blaNDM Car Res Gene PCR (NotDetected) OXA-48 Carbapenem Resis Gene (PCR) (NotDetected) blaVIM Car Res Gene PCR (NotDetected) CTX-M Gene Resistance (PCR) (NotDetected) Bld Cult ID Panel PCR (NotDetected) Administered Medications Acetaminophen (Acetaminophen 325 Mg Tab) 650 mg PO Q4H PRN PRN Reason: Pain or Fever Stop: 05/04/23 23:48 Last Admin: 04/05/23 08:31 Dose: 650 mg Documented By: Admin: 04/05/23 00:16 Dose: 650 mg Documented By: LAM Acyclovir (Acyclovir 400 Mg Tab) 800 mg PO BID MARIA GUADALUPE Stop: 05/05/23 08:59 Last Admin: 04/05/23 09:59 Dose: 800 mg Documented By: DWIGHT Atorvastatin Calcium (Atorvastatin 40 Mg Tab) 40 mg PO DAILY MARIA GUADALUPE Stop: 05/05/23 08:59 Last Admin: 04/05/23 08:14 Dose: 40 mg Documented By: DWIGHT Sodium Chloride (Nss 1000ml) 1,000 mls @ 125 mls/hr IV .Q8H MARIA GUADALUPE Stop: 05/04/23 23:48 Last Admin: 04/05/23 08:10 Dose: 125 mls/hr Documented By: Infusion: 04/05/23 08:09 Dose: 125 mls/hr Documented By: Admin: 04/05/23 00:09 Dose: 125 mls/hr Documented By: LAM Isosorbide Mononitrate (Isosorbide Lynn Extended Rel 30 Mg Tabcr) 30 mg PO QAM MARIA GUADALUPE Stop: 05/05/23 08:59 Last Admin: 04/05/23 08:14 Dose: 30 mg Documented By: DWIGHT Levothyroxine Sodium (Levothyroxine Sodium 75 Mcg Tablet) 75 mcg PO DAILYBB MARIA GUADALUPE Stop: 05/05/23 06:29 Last Admin: 04/05/23 05:22 Dose: 75 mcg Documented By: LAM Metoprolol Succinate (Metoprolol Succ 50mg Ext Rel Tab) 50 mg PO QAM MARIA GUADALUPE Stop: 05/05/23 08:59 Last Admin: 04/05/23 08:14 Dose: 50 mg Documented By: DWIGHT Oxybutynin Chloride (Oxybutynin Chloride Xl 5 Mg Tabcr) 5 mg PO DAILY MARIA GUADALUPE Stop: 05/05/23 08:59 Last Admin: 04/05/23 08:14 Dose: 5 mg Documented By: DWIGHT Pantoprazole Sodium (Pantoprazole 40 Mg Tab) 40 mg PO DAILY MARIA GUADALUPE Stop: 05/05/23 08:59 Last Admin: 04/05/23 08:15 Dose: 40 mg Documented By: DWIGHT Vibegron (Vibegron 75 Mg Tab) 75 mg PO DAILY MARIA GUADALUPE Stop: 05/05/23 08:59 Last Admin: 04/05/23 08:14 Dose: 75 mg Documented By: DWIGHT Vitamin D (Cholecalciferol 5,000 Units 125 Mcg Tab) 5,000 units PO QAM MARIA GUADALUPE Stop: 05/05/23 08:59 Last Admin: 04/05/23 08:14 Dose: 5,000 units Documented By: DWIGHT Discontinued Medications Magnesium Sulfate/Dextrose (Magnesium Sulfate / D5w) 1 gm in 100 mls @ 100 mls/hr IV Q1H MARIA GUADALUPE Stop: 04/04/23 20:40 Last Infusion: 04/04/23 22:15 Dose: 0 mls/hr Documented By: Admin: 04/04/23 21:14 Dose: 100 mls/hr Documented By: Infusion: 04/04/23 21:12 Dose: 100 mls/hr Documented By: Admin: 04/04/23 20:12 Dose: 100 mls/hr Documented By: SHANNAN Sodium Chloride (Nss 1000ml) 2,000 mls @ 999 mls/hr IV .Q2H1M ONE Stop: 04/04/23 20:51 Last Infusion: 04/04/23 22:15 Dose: 0 mls/hr Documented By: Admin: 04/04/23 20:12 Dose: 999 mls/hr Documented By: SHANNAN Cefepime HCl (Maxipime) 2,000 mg in 20 mls @ 5 mls/min IV NOW STA Stop: 04/04/23 18:54 Last Admin: 04/04/23 20:12 Dose: 5 mls/min Documented By: SHANNAN Magnesium Sulfate/Dextrose (Magnesium Sulfate / D5w) 1 gm in 100 mls @ 100 mls/hr IV Q1H MARIA GUADALUPE Stop: 04/04/23 23:03 Last Infusion: 04/05/23 03:04 Dose: 0 mls/hr Documented By: Admin: 04/05/23 01:07 Dose: 100 mls/hr Documented By: Infusion: 04/05/23 01:07 Dose: 100 mls/hr Documented By: Admin: 04/05/23 00:09 Dose: 100 mls/hr Documented By: LAM Cefepime HCl 2,000 mg/ Syringe 20 mls @ 5 mls/min IV Q12H [facility] GUADALU[facility]; Protocol Stop: 04/15/23 07:59 Last Admin: 04/05/23 08:11 Dose: 5 mls/min Documented By: DWIGHT Insulin Human Regular 250 (units/ Sodium Chloride) 250 mls @ 4.2 mls/hr IV .Q24H [facility] GUADALU[facility]; Protocol Stop: 04/05/23 16:00 Last Titration: 04/05/23 12:56 Dose: 0 units/hr, 0 mls/hr Documented By: DWIGHT Co-signed By: DAVID Titration: 04/05/23 12:41 Dose: 0 units/hr, 0 mls/hr Documented By: DWIGHT Co-signed By: DAVID Titration: 04/05/23 11:35 Dose: 4.2 units/hr, 4.2 mls/hr Documented By: DWIGHT Co-signed By: JOAN Titration: 04/05/23 10:42 Dose: 5.3 units/hr, 5.3 mls/hr Documented By: DWIGHT Co-signed By: JOAN Titration: 04/05/23 09:40 Dose: 5.3 units/hr, 5.3 mls/hr Documented By: DWIGHT Co-signed By: JEET Titration: 04/05/23 08:27 Dose: 5.3 units/hr, 5.3 mls/hr Documented By: DWIGHT Co-signed By: JEET Titration: 04/05/23 07:42 Dose: 6.6 units/hr, 6.6 mls/hr Documented By: DWIGHT Co-signed By: JOAN Titration: 04/05/23 06:40 Dose: 5.5 units/hr, 5.5 mls/hr Documented By: LAM Co-signed By: CLAIR Titration: 04/05/23 05:34 Dose: 4.6 units/hr, 4.6 mls/hr Documented By: LAM Co-signed By: JENNIFER Titration: 04/05/23 04:48 Dose: 3.8 units/hr, 3.8 mls/hr Documented By: JENNIFER Co-signed By: LAM Titration: 04/05/23 03:40 Dose: 3.2 units/hr, 3.2 mls/hr Documented By: LAM Co-signed By: CLAIR Titration: 04/05/23 02:40 Dose: 2.7 units/hr, 2.7 mls/hr Documented By: LAM Co-signed By: CLAIR Admin: 04/05/23 01:30 Dose: 1.9 units/hr, 1.9 mls/hr Documented By: LAM Co-signed By: DEEJAY Insulin Human Regular 2 units/ (Syringe) 2 mls @ 0 mls/min IV 0015 ONE Stop: 04/05/23 00:16 Last Admin: 04/05/23 01:29 Dose: 2 mls/min Documented By: LAM Co-signed By: DEEJAY Insulin Aspart (Insulin Aspart Per Unit Charge) 0 units SC ACHS MARIA GUADALUPE Stop: 04/05/23 16:00 Last Admin: 04/05/23 11:32 Dose: Not Given Documented By: Admin: 04/05/23 08:25 Dose: Not Given Documented By: DWIGHT Insulin Aspart (Insulin Aspart Per Unit Charge) 0 units SC NOW ONE Stop: 04/05/23 12:46 Last Admin: 04/05/23 13:22 Dose: 2 units Documented By: DWIGHT Co-signed By: DAVID Insulin Glargine (Lantus Per Unit Charge) 12 units SQ BID MARIA GUADALUPE Stop: 04/05/23 00:02 Last Admin: 04/05/23 01:37 Dose: Not Given Documented By: LAM Insulin Glargine (Lantus Per Unit Charge) 40 units SC NOW ONE Stop: 04/05/23 10:01 Last Admin: 04/05/23 10:53 Dose: 40 units Documented By: DWIGHT Co-signed By: DAVID Insulin Human Regular (Novolin-R Insulin Per Unit Charge) 6 units IV NOW STA Stop: 04/04/23 22:09 Last Admin: 04/04/23 22:34 Dose: 6 units Documented By: SHANNAN Co-signed By: MILO Ioversol (Optiray 320 100ml) 81 ml IV ONCE ONE Stop: 04/04/23 19:15 Last Admin: 04/04/23 19:14 Dose: 81 ml Documented By: BEULAH Hernandes (Insulin Protocol Goal Range ) 1 each N/A ONE ONE Stop: 04/05/23 00:04 Last Admin: 04/05/23 01:32 Dose: 1 each Documented By: LAM Hernandes (Moderate Stress Level ) 1 each N/A ONE ONE Stop: 04/05/23 00:04 Last Admin: 04/05/23 01:31 Dose: 1 each Documented By: LAM Imaging Data Radiologist's Impression: Chest X-Ray 04/04/23 19:00 XR chest 1V portable HISTORY: Sepsis. Shortness of breath. COMPARISON: Chest 12/29/2013. FINDINGS: No pneumothorax. No pleural effusions. The cardiac silhouette remains mildly enlarged. There are few small bibasilar linear densities consistent with subsegmental atelectasis or scarring. This is similar to the prior study. No new focal lung consolidations to suggest a pneumonia. No evidence for pulmonary e kenneth. Prior cholecystectomy. A right jugular Port-A-Cath terminates in the distal SVC. There are low lung volumes. IMPRESSION: No acute process. ACT 112: Negative or not required by law. Electronically signed by: Bogdan Lyon M.D. 04/05/2023 6:39 AM Abdomen/Pelvis CT 04/04/23 18:51 Exam(s): CT ABDOMEN + PELVIS With Contrast IV Amt: 81 ml optiray 320 EXAM: CT Abdomen and Pelvis With Intravenous Contrast CLINICAL HISTORY: Reason for exam: uti, sepsis, fall. TECHNIQUE: Axial computed tomography images of the abdomen and pelvis with intravenous contrast. CTDI is 19 mGy and DLP is 1036 mGy-cm. Automated exposure control was utilized for the study. A dose lowering technique was utilized adhering to the principles of ALARA. CONTRAST: Patient received 81 ml optiray 320 of IV contrast COMPARISON: No relevant prior studies available. FINDINGS: ABDOMEN: Liver: Unremarkable. Gallbladder and bile ducts: Cholecystectomy. Pancreas: Unremarkable. Spleen: Unremarkable. Adrenals: Unremarkable. Kidneys and ureters: Patchy heterogeneous enhancement within the left kidney with perinephric inflammatory changes and urothelial thickening consistent with acute pyelonephritis. No perinephric abscess. Stomach and bowel: Unremarkable. PELVIS: Appendix: No findings to suggest acute appendicitis. Bladder: Unremarkable. Reproductive: Unremarkable as visualized. ABDOMEN and PELVIS: Intraperitoneal space: Unremarkable. No free air. No significant fluid collection. Bones/joints: Degenerative changes in the lumbar spine status post instrumented fusion. Soft tissues: Unremarkable. Vasculature: Unremarkable. Lymph nodes: Unremarkable. IMPRESSION: Patchy heterogeneous enhancement within the left kidney with perinephric inflammatory changes and urothelial thickening consistent with acute pyelonephritis. No perinephric abscess. Electronically signed by: Austin Dowell MD 04/04/23 19:[address] 04/04/23 18:51 Exam(s): CT HEAD Without Contrast EXAM: CT Head Without Intravenous Contrast CLINICAL HISTORY: Reason for exam: ams, fall. TECHNIQUE: Axial computed tomography images of the head/brain without intravenous contrast. CTDI is 113.43 mGy and DLP is 1718.51 mGy-cm. Automated exposure control was utilized for the study. A dose lowering technique was utilized adhering to the principles of ALARA. COMPARISON: No relevant prior studies available. FINDINGS: Brain: No hemorrhage, extra-axial fluid collection, mass effect, or edema. Mild chronic microvascular ischemic changes. Ventricles: Unremarkable. Bones/joints: Unremarkable. No fracture. Soft tissues: Unremarkable. Sinuses: No acute sinusitis. Mastoid air cells: Unremarkable as visualized. IMPRESSION: 1. No acute intracranial abnormality. Electronically signed by: Austin Dowell MD 04/04/23 19:39 PM Chest X-Ray 04/04/23 19:00 XR chest 1V portable HISTORY: Sepsis. Shortness of breath. COMPARISON: Chest 12/29/2013. FINDINGS: No pneumothorax. No pleural effusions. The cardiac silhouette remains mildly enlarged. There are few small bibasilar linear densities consistent with subsegmental atelectasis or scarring. This is similar to the prior study. No new focal lung consolidations to suggest a pneumonia. No evidence for pulmonary edema. Prior cholecystectomy. A right jugular Port-A-Cath terminates in the distal SVC. There are low lung volumes. IMPRESSION: No acute process. ACT 112: Negative or not required by law. Electronically signed by: Bogdan Lyon M.D. 04/05/2023 6:39 AM Discharge Plan Visit Data Chief Complaint: Weakness Stated Complaint: SOB, WEAKNESS, LOW O2 LEVELS ED Provider: Tae Soria Discharge Problem: Sepsis, Anemia, Acute pyelonephritis, Acute hyperglycemia, Hypomagnesemia, Thrombocytopenia, Leukocytosis, Myelodysplastic syndrome Patient Disposition: Admitted As Inpatient Discharge Instructions Interventions: ED Discharge Assessment Last Done: 04/04/23 23:22 Sepsis Qualifiers: Sepsis type: sepsis due to unspecified organism Sepsis acute organ dysfunction status: without acute organ dysfunction Qualified Code(s): A41.9 - Sepsis, unspecified organism Anemia Qualifiers: Anemia type: unspecified type Qualified Code(s): D64.9 - Anemia, unspecified Leukocytosis Qualifiers: Leukocytosis type: unspecified Qualified Code(s): D72.829 - Elevated white blood cell count, unspecified
[2023-04-04] MEDS ORDERED: NovoLIN-R INSULIN PER UNIT CHARGE IV STA (22:08)
[2023-04-04] MEDS ORDERED: POLYETHYLENE (MIRALAX) 17 GM PACK PO PRN (23:49)
[2023-04-04] MEDS ORDERED: LANTUS PER UNIT CHARGE SQ SCH (23:49)
[2023-04-04] MEDS ORDERED: CARBOHYDRATES FOR HYPOGLYCEMIA PO PRN (23:49)
[2023-04-04] MEDS ORDERED: NITROGLYCERIN SL 0.4 MG/TAB TAB SL PRN (23:49)
[2023-04-04] MEDS ORDERED: GLUCOSE 10 TAB/TUBE PO PRN (23:49)
[2023-04-04] MEDS ORDERED: GLUCAGON FOR INJ 1 MG VIAL SQ PRN (23:49)
[2023-04-04] MEDS ORDERED: DEXTROSE 50% 50 ML SYRINGE IV PRN (23:49)
[2023-04-04] MEDS ORDERED: PHARMACY GLYCEMIC MGMT CONSULT PRN (23:49)
[2023-04-04] MEDS ORDERED: GLUCOSE 40% GEL 15 GM TUBE PO PRN (23:49)
[2023-04-05] MEDS ORDERED: MODERATE STRESS LEVEL ONE (00:03)
[2023-04-05] MEDS ORDERED: STAT IV STA (00:03)
[2023-04-05] MEDS ORDERED: INSULIN PROTOCOL GOAL RANGE ONE (00:03)
[2023-04-05] MEDS: SODIUM CHLORIDE 0.9% 1000ML 1,000 ML IV SCH ×3 (00:09→16:08)
[2023-04-05] MEDS: MAGNESIUM SULFATE / D5W 1 GM/100 ML BAG IV SCH ×2 (00:09→01:07)
[2023-04-05] MEDS ORDERED: INSULIN HUMAN REGULAR IV BOLUS 2 UNITS in SYRINGE 0 ML IV ONE (00:15)
[2023-04-05] MEDS ORDERED: INSULIN REGULAR 250 UNITS in SODIUM CHLORIDE 0.9% 247.5 ML IV SCH (00:15)
[2023-04-05] MEDS: ACETAMINOPHEN 325 MG TAB PO PRN ×4 (00:16→20:09)
[2023-04-05] MEDS ORDERED: traMADol HCL 50 MG TABLET PO PRN (01:06)
[2023-04-05] MEDS ORDERED: INSULIN ASPART PER UNIT CHARGE SC SCH (02:00)
--- NOTE | 2023-04-05 03:00 | History and Physical Report ---
DATE OF ADMISSION: 04/04/2023. CHIEF COMPLAINT: Weakness, hematuria and back pain. 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 The patient has stem cell transplant in 08/2021 for MDS and recently on 03/20/2023, she had a bone marrow biopsy, which showed recurrence of the disease. Supposed to follow with heme/onc. Comes here because yesterday she had hematuria and also back pain and today[facility] checked her and her pulse ox was slightly low and she was hypotensive, feeling weak and advised to come to the hospital. In the ER, Sodium is 124. Sugar is 586. Lactate initially was 2.9, repeat is 1.6. Magnesium is 0.9. Urine was grossly positive. Received fluids and antibiotic.. Currently, resting comfortably. blood pressure is okay. Hemodynamics are okay. Denies any chest pain, no shortness of breath, no nausea or vomiting. No cough, no headache. Vision is blurry says from high sugars, somewhat hard of hearing, has some congestion, no sore throat, no difficulty swallowing. She has issues with the bowel constipation and diarrhea. No blood in the stools. Normal bladder movements. ALLERGIES: No known drug allergies. PAST MEDICAL HISTORY: As mentioned above. PAST SURGICAL HISTORY: Colonoscopy, dilatation and curettage, EGDs, injection of eye drug, partial hysterectomy, cholecystectomy, lumbar spinal fusion surgery. MEDICATIONS: Acyclovir 800 mg p.o. b.i.d., atorvastatin 40 mg p.o. daily, vitamin D 125 mcg p.o. daily, isosorbide mononitrate 30 mg p.o. daily, Levemir 22 units daily, metformin 1000 mg p.o. b.i.d., metoprolol succinate 50 mg p.o. daily, Myrbetriq 50 mg p.o. daily, NovoLog sliding scale, omeprazole 20 mg p.o. daily, solifenacin 5 mg p.o. daily, tramadol 50 mg p.o. q. 6 hours p.r.n., Effexor 150 mg p.o. daily. FAMILY HISTORY: Significant for brother has alcoholism, brother has lung disorder. Sister has Alzheimer's disease, breast cancer, multiple myeloma, diabetes. Mother had diabetes, [place]. Father has diabetes. SOCIAL HISTORY: , no smoking, no alcohol, no drug use. REVIEW OF SYSTEMS: As per HPI. Rest of the review of systems is negative. PHYSICAL EXAMINATION: GENERAL: The patient is of moderate build, not in acute distress. VITAL SIGNS: Temperature T-max 39.5, pulse 69, respiratory rate 18, blood pressure 133/71, oxygen 96% on room air. HEENT: Pupils equal, round and reactive to light. 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 No facial droop. Oral mucosa dry. NECK: No JVD. No neck masses. CARDIOVASCULAR: S1 and S2 heard. Regular rate and rhythm. No murmur, no gallop. RESPIRATORY SYSTEM: Normal AP diameter. No accessory muscle use. No wheezing or crackles. ABDOMEN: Soft, bowel sounds present, nontender, no distention. CENTRAL NERVOUS SYSTEM: Alert and oriented. Speech is clear. No facial droop. Obeys simple commands. Moves extremities. EXTREMITIES: No edema, no erythema. LABORATORY DATA: WBC 17.9, hemoglobin 10.3, hematocrit 29.6, platelets 30. PT 12.1, INR 1.1. Sodium 124, potassium 4.8, chloride 87, CO2 of 24, BUN 23, creatinine 1.2, serum glucose 586. Osmolality 305. Lactate 2.9, repeat is 1.6. Magnesium 0.9, total bilirubin 0.9, AST 11, ALT 11, alkaline phosphatase 79. Troponin I high sensitivity 8.9. Procalcitonin 1.99. TSH 1.223. Urinalysis, +3 glucose, +2 leukocyte esterase, +4 bacteria. SARS-CoV-2 rapid test negative. IMAGING DATA: Chest x-ray, no acute findings. Head CT without contrast, no acute intracranial abnormalities. CT abdomen and pelvis with IV contrast, patchy heterogeneous enhancement of the left kidney with perinephric inflammatory changes and urothelial thickening consistent with acute pyelonephritis. No perinephric abscess seen. EKG, sinus tachycardia, rate of 105, no acute ST changes seen. ASSESSMENT AND PLAN: This is a 72-year-old female, who presents with sepsis. 1. Sepsis, mostly likely from urinary tract infection and pyelonephritis. ER started her empirically on cefepime, which we will be continued. IV fluids. Lactic acid normalized. We will follow hemodynamics.Follow cultures. 2. Hyperglycemia, not in diabetic ketoacidosis. We will start on insulin drip. Closely monitor the blood sugars. pharmacy consult. 3. Pseudohyponatremia. Sodium 124 .Corrected sodium 133. We will follow the labs. 4. Hypomagnesemia. Magnesium was 0.9. Replace. We will follow the repeat labs. 5. History of myelodysplastic syndrome, status post stem cell transplant in August 2021. recent biopsy shows recurrence of disease. Followup with Heme/Onc. 6. Anemia and thrombocytopenia, most likely from myelodysplastic syndrome. . We will follow the repeat labs. 7. History of hypothyroidism. Continue Synthroid. 8. Hyperlipidemia. On statin. 9. History of coronary artery disease. On statin. imdur and beta-carlos. 10. Hypertension. On metoprolol and imdur with holding parameters. 11. Gastroesophageal reflux disease: On omeprazole. 12. Deep venous thrombosis prophylaxis. Sequential compression devices as the patient has thrombocytopenia. DISPOSITION: Admit to med/tele. PT/OT prior to discharge. Social service to help with discharge planning. Job ID: [id number] [facility]ENTERArmand
[2023-04-05] MEDS: LEVOTHYROXINE SODIUM 75 MCG TABLET PO SCH (05:22)
--- NOTE | 2023-04-05 06:40 | XRay Report ---
XR chest 1V portable HISTORY: Sepsis. Shortness of breath. COMPARISON: Chest 12/29/2013. FINDINGS: No pneumothorax. No pleural effusions. The cardiac silhouette remains mildly enlarged. Ther e are few small bibasilar linear densities consistent with subsegmental atelectasis or scarring. This is similar to the prior study. No new focal lung consolidations to suggest a pneumonia. No evidence for pulmonary edema. Prior cholecystectomy. A right jugular Port-A-Cath terminates in the distal SVC. There are low lung volumes. IMPRESSION: No acute process. ACT 112: Negative or not required by law. Electronically signed by: Bogdan Lyon M.D. 04/05/2023 6:39 AM
[2023-04-05 07:28] LABS: Hemoglobin 8.6 g/dl (12.0-16.0); Mean Corpuscular Hemoglobin 37.7 pg (25.0-34.0); Mean Corpuscular Hgb Conc 34.4 g/dL (32.0-36.0); Mean Corpuscular Volume 109.6 fL (80.0-100.0); Mean Platelet Volume 10.2 fL (9.4-12.4); Platelet Count 24 K/uL (130-400); RDW Coefficient of Variation 13.2 % (11.5-14.5); Red Blood Count 2.28 M/uL (4.20-5.40)
[2023-04-05 07:40] LABS: BUN Creatinine Ratio 21.1 (10-20); Calcium 8.6 mg/dl (8.6-10.3); Creatinine Clr Calc Pharmacy 55.4 ml/min; Est GFR (African American) 68.4 ml/min; Potassium 3.5 mmol/L (3.5-5.1)
[2023-04-05 07:53] LABS: Basophils # (auto) 0.02 K/uL (0-0.2); Basophils % (auto) 0.1 %; Dohle Bodies 1+; Lymphocytes # (auto) 5.28 K/uL (1.2-3.4); Lymphocytes % (auto) 34.7 %; Monocytes # (auto) 0.46 K/uL (0.11-0.59); Neutrophils # (auto) 9.44 K/uL (1.40-6.50); Neutrophils % (auto) 62.2 %; Polychromasia 1+
[2023-04-05] MEDS ORDERED: CEFEPIME 2,000 MG in SYRINGE 0 ML IV SCH (08:00)
[2023-04-05] MEDS: CHOLECALCIFEROL 5,000 UNITS 125 MCG TAB PO SCH (08:14)
[2023-04-05] MEDS: ISOSORBIDE MONO EXTENDED REL 30 MG TABCR PO SCH (08:14)
[2023-04-05] MEDS: ATORVASTATIN 40 MG TAB PO SCH (08:14)
[2023-04-05] MEDS: VIBEGRON 75 MG TAB PO SCH (08:14)
[2023-04-05] MEDS: METOPROLOL SUCC 50MG EXT REL TAB PO SCH (08:14)
[2023-04-05] MEDS: OXYBUTYNIN CHLORIDE XL 5 MG TABCR PO SCH (08:14)
[2023-04-05] MEDS: PANTOprazole 40 MG TAB PO SCH (08:15)
[2023-04-05] MEDS: INSULIN ASPART PER UNIT CHARGE SC SCH ×4 (08:25→20:10)
[2023-04-05 08:35] LABS: Estimated Average Glucose 246 mg/dl; Hemoglobin A1C 10.2 % (4.5-5.6)
[2023-04-05] MEDS: ACYCLOVIR 400 MG TAB PO SCH ×2 (09:59→20:09)
[2023-04-05] MEDS ORDERED: LANTUS PER UNIT CHARGE SC ONE (10:00)
[2023-04-05 10:07] LABS: A calco-baum cmplx NotReported Not Detected (NotDetected); Bact fragilis Not Reported Not Detected (NotDetected); C auris Not Reported Not Detected (NotDetected); CTX-M Resistant Gene Not Detected (NotDetected); Calbicans Not Reported Not Detected (NotDetected); Candida glabrata Not Reported Not Detected (NotDetected); Candida krusei Not Reported Not Detected (NotDetected); Cneoformans/gatti Not Reported Not Detected (NotDetected); Cparapsilosis Not Reported Not Detected (NotDetected); Ctropicalis Not Reported Not Detected (NotDetected); E cloacae compx Not Reported Not Detected (NotDetected); Efaecalis Not Reported Not Detected (NotDetected); Efaecium Not Reported Not Detected (NotDetected); Enterobacterales DETECTED (NotDetected); Enterobacterales Not Reported DETECTED (NotDetected); Escherichia coli Not Reported DETECTED (NotDetected); H influenzae Not Reported Not Detected (NotDetected); IMP Resistant Gene Not Detected (NotDetected); K aerogenes Not Reported Not Detected (NotDetected); KPC Resistant Gene Not Detected (NotDetected); Koxytoca Not Reported Not Detected (NotDetected); Kpneumoniae grp Not Reported Not Detected (NotDetected); Lmonocyt Not Reported Not Detected (NotDetected); N meningitidis Not Reported Not Detected (NotDetected); NDM Resistant Gene Not Detected (NotDetected); OXA 48 Like Resistant Gene Not Detected (NotDetected); P aeruginosa Not Reported Not Detected (NotDetected); Proteus spp Not Reported Not Detected (NotDetected); Salmonella spp Not Reported Not Detected (NotDetected); Smarcescens Not Reported Not Detected (NotDetected); Staph lugdunensis Not Reported Not Detected (NotDetected); Staph spp. Not Reported Not Detected (NotDetected); Staphaureus Not Reported Not Detected (NotDetected); Staphepi Not Reported Not Detected (NotDetected); Stenmaltophilia Not Reported Not Detected (NotDetected); Strep agal(GrpB) Not Reported Not Detected (NotDetected); Strep pneum Not Reported Not Detected (NotDetected); Strep pyog (GrpA) Not Reported Not Detected (NotDetected); Strep spp Not Reported Not Detected (NotDetected); VIM Resistant Gene Not Detected (NotDetected); mcr-1 Colistin Resistant Gene Not Detected (NotDetected)
[2023-04-05] MEDS ORDERED: INSULIN ASPART PER UNIT CHARGE SC ONE (12:45)
--- NOTE | 2023-04-05 14:16 | Pharmacy Report ---
Pharmacy Glycemic Short Note 2 - Date of Service April 05, 2023 - Glycemic Short BSG Results (Last 24 hours): 04/04/23 04/04/23 04/04/23 14:29 21:12 23:54 Glucose 586 H* POC Glucose 565 H* 416 H* 04/05/23 04/05/23 04/05/23 02:36 03:30 04:37 Glucose POC Glucose 448 H* 422 H* 408 H* 04/05/23 04/05/23 04/05/23 05:31 05:49 06:35 Glucose 346 H* POC Glucose 378 H* 366 H* 04/05/23 04/05/23 04/05/23 07:32 08:24 09:29 Glucose POC Glucose 326 H* 259 H 224 H 04/05/23 04/05/23 04/05/23 10:38 11:29 12:25 Glucose POC Glucose 199 H 166 H 115 H OUTPATIENT ANTIDIABETIC REGIMEN: * Levemir 28 units BIDM? (potentially 20 units daily) * Novolin R with meals * Metformin 1 gm PO BID * HbA1C = 10.2% (04/05/23) ASSESSMENT: * Ms Burger is a 72 y/o F with a PMH of T2DM on insulin who presents with weakness and hyperglycemia. BSGs on admission were over 500 mg/dL. * Patient was initially started on an insulin infusion with rates as high as 6.6 units/hr in the track watchman. * This AM, this pharmacist spoke with the patient's provider who expressed that he would like patient transitioned to SQ insulin. * Will start with weight-based dosing. Lantus 40 units SQ x 1. Insulin infusion calculator indicated a hold at 1 pm so d/c'ed insulin infusion. * For tomorrow, will have Lantus scale for tomorrow with doses of 30-35-40 units. * Novolog weight-based stress of 3 since patient does have significant insulin resistance. PLAN FOR INPATIENT GLYCEMIC CONTROL: * Hold outpatient oral diabetes medications * Basal insulin * Lantus 40 units SQ x 1 * Lantus 30-40 units SQ daily starting 04/05/23 * Bolus insulin * NovoLog per scale ACHS or Q6hrs while NPO * Goal Range: Low 110 mg/dL - High 140 mg/dL * Correction Factor: 20 mg/dL/unit * Nutritional / Prandial insulin per carb ratio of 1 unit per 7 grams CHO consumed
--- NOTE | 2023-04-05 14:24 | Hospitalist Progress Note ---
Date of Service April 05, 2023 Assessment & Plan (1) Acute pyelonephritis: (2) E coli bacteremia: Plan: 72-year-old female with past medical history of type 2 diabetes mellitus, hypothyroidism, hyperlipidemia, history of myelodysplastic syndrome (history of stem cell transplant in August 2021, bone marrow biopsy done in March 20, 2023 showed recurrence of the disease) presented with hematuria and back pain. She also had generalized weakness. Lactate elevated on admission Leukocytosis present Urinalysis suggestive for infection. CT abdomen and pelvis personally reviewed; patchy heterogeneous enhancement within the left kidney with perinephric inflammatory changes consistent with acute pyelonephritis Urine culture positive for gram negative bacilli Blood culture positive for gram-negative bacilli; PCR positive for E. coli. Continue on cefepime. Will await final sensitivity and culture results. Repeat blood culture tomorrow a.m. Continue on IV fluids with 125 cc/h. (3) DM type 2 (diabetes mellitus, type 2): Plan: Significant hyperglycemia on admission. Initially on insulin drip. Switched over to subcu insulin. HbA1c of 10.2% Discussed with pharmacy regarding switching over to subcu insulin. Plan Myelodysplastic syndrome, status post stem cell transplant in August 2021. recent biopsy shows recurrence of disease. Followup with Heme/Onc. Labs reviewed; noted to have macrocytic anemia and thrombocytopenia. Continue to monitor labs. Chronic conditions: History of hypothyroidism. Continue Synthroid. Hyperlipidemia. On statin. Continue Lipitor History of coronary artery disease. Continue statin, Imdur and metoprolol.. Hypertension. On metoprolol and imdur with holding parameters. Gastroesophageal reflux disease: On omeprazole. Deep venous thrombosis prophylaxis. Sequential compression devices as the patient has thrombocytopenia. Discussed with granddaughter at bedside. Full code DVT prophylaxis SCDs. Patient has thrombocytopenia. PT OT ordered Time spent evaluating patient, direct bedside care, chart review, placing orders, interpretation of diagnostic studies, discussion with consultants, patient, and family members, as well as other required patient management activities is 60 minutes Please note the above document was generated using voice recognition software. It may contain grammatical, syntax or spelling errors. Any formal questions or concerns about the content, text or information contained within the body of this dictation should be directly addressed to the provider for clarification Admission and Anticipated Discharge Date Admission Date: April 04, 2023 Subjective Patient seen and examined at bedside. She reports she is tired and lethargic. Had fever in AM. Reports back pain. Review of Systems Review of Systems: All systems reviewed & are unremarkable except as noted in Subjective Physical Exam Physical Exam: Constitutional: WD/WN, vitals as above, NAD, sitting up in bed, pleasant, conversing easily [id number] present on right side Respiratory: Bilateral clear breath sound. Cardiovascular: RRR, no murmur, no edema Vessels: no JVD or carotid bruit Chest: normal inspection of chest Abdomen: normal bowel sounds, soft, nontender, no hepatosplenomegaly Musculoskeletal: no cyanosis or clubbing, extremities motor strength 5/5 Skin: no rashes, warm and dry normal turgor Neurologic: Grossly intact. Psychiatric: A+Ox3, euthymic affect Lymphatic: no cervical or axillary lymphadenopathy : deferred Results & Data Results & Data Vital Signs (Past 12 Hours) Vital Signs Temp Pulse Pulse Resp BP Pulse Ox O2 Del Method 04/05/23 12:29 37.3 C 88 20 90/48 L 94 Room Air 04/05/23 11:30 38.3 C H 95 H 16 106/57 L 92 Room Air 04/05/23 10:39 39.5 C H 04/05/23 08:32 37.4 C 04/05/23 06:42 36.5 C 66 18 122/71 94 Room Air 04/05/23 03:45 36.6 C 88 18 122/72 95 Room Air Laboratory Results Laboratory Results WBC 15.20 K/ul (4.8-10.8) H 04/05/23 05:49 RBC 2.28 M/uL (4.20-5.40) L 04/05/23 05:49 Hgb 8.6 g/dl (12.0-16.0) L 04/05/23 05:49 Hct 25.0 % (37.0-47.0) L 04/05/23 05:49 MCV 109.6 fL (80.0-100.0) H 04/05/23 05:49 MCH 37.7 pg (25.0-34.0) H 04/05/23 05:49 MCHC 34.4 g/dL (32.0-36.0) 04/05/23 05:49 RDW Std Deviation 53.0 fL (36.4-46.3) H 04/05/23 05:49 RDW Coeff of Evin 13.2 % (11.5-14.5) 04/05/23 05:49 Plt Count 24 K/uL (130-400) L* 04/05/23 05:49 MPV 10.2 fL (9.4-12.4) 04/05/23 05:49 Immature Gran % (Auto) 0.0 % 04/05/23 05:49 Neut % (Auto) 62.2 % 04/05/23 05:49 Lymph % (Auto) 34.7 % 04/05/23 05:49 [place] % (Auto) 3.0 % 04/05/23 05:49 Eos % (Auto) 0.0 % 04/05/23 05:49 Baso % (Auto) 0.1 % 04/05/23 05:49 Neut # (Auto) 9.44 K/uL (1.40-6.50) H 04/05/23 05:49 Lymph # (Auto) 5.28 K/uL (1.2-3.4) H 04/05/23 05:49 [place] # (Auto) 0.46 K/uL (0.11-0.59) 04/05/23 05:49 Eos # (Auto) 0.00 K/uL (0-0.50) 04/05/23 05:49 Baso # (Auto) 0.02 K/uL (0-0.2) 04/05/23 05:49 Immature Gran # (Auto) 0.00 K/uL (0.01-0.20) L 04/05/23 05:49 Hyposegmented Neuts 1+ 04/05/23 05:49 Toxic Vacuolation 1+ 04/04/23 14:29 Dohle Bodies 1+ 04/05/23 05:49 Platelet Estimate Decreased (Normal) L 04/04/23 14:29 Polychromasia 1+ 04/05/23 05:49 Tear Drop Cells 1+ 04/04/23 14:29 PT 12.1 Seconds (9.0-12.0) H 04/04/23 14:29 INR 1.1 (0.9-1.1) 04/04/23 14:29 APTT 25.7 Seconds (21.0-31.0) 04/04/23 14:29 PTT Ratio 0.9 04/04/23 14:29 Sodium 132 mmol/L (136-145) L 04/05/23 05:49 Potassium 3.5 mmol/L (3.5-5.1) D 04/05/23 05:49 Chloride 100 mmol/L (98-107) 04/05/23 05:49 Carbon Dioxide 25 mmol/L (21-32) 04/05/23 05:49 Anion Gap 7 (3-11) 04/05/23 05:49 BUN 20 mg/dl (6-23) 04/05/23 05:49 Creatinine 0.95 mg/dl (0.6-1.2) 04/05/23 05:49 Est Cr Clr Drug Dosing 55.4 ml/min 04/05/23 05:49 Est GFR ( Amer) 68.4 ml/min 04/05/23 05:49 Est GFR (Non-Af Amer) 59.0 ml/min 04/05/23 05:49 BUN/Creatinine Ratio 21.1 (10-20) H 04/05/23 05:49 Glucose 346 mg/dl (70-99(Fasting)) H* 04/05/23 05:49 POC Glucose 115 mg/dl (70-99) H 04/05/23 12:25 Estimat Average Glucose 246 mg/dl 04/05/23 05:49 Hemoglobin A1c 10.2 % (4.5-5.6) H 04/05/23 05:49 Osmolality 305 mOsm/kg (280-300) H 04/04/23 19:32 Lactate 1.6 mmol/L (0.4-2.0) 04/04/23 21:21 Calcium 8.6 mg/dl (8.6-10.3) 04/05/23 05:49 Magnesium 2.0 mg/dl (1.7-2.4) 04/05/23 05:49 Total Bilirubin 0.9 mg/dl (0.2-1.0) 04/04/23 14:29 AST 11 U/L (13-39) L 04/04/23 14:29 ALT 11 U/L (7-52) 04/04/23 14:29 Alkaline Phosphatase 79 U/L (34-104) 04/04/23 14:29 Troponin I High Sens 8.9 pg/ml (0-14) 04/04/23 14:29 Total Protein 7.8 gm/dl (6.0-8.3) 04/04/23 14: Albumin 3.7 gm/dl (3.4-5.0) 04/04/23 14:29 Globulin 4.1 gm/dl (2.5-4.0) H 04/04/23 14:29 Albumin/Globulin Ratio 0.9 (0.9-2) 04/04/23 14:29 Procalcitonin 1.99 ng/ml (0-0.5) H 04/04/23 19:32 TSH 1.223 uIu/ml (0.300-4.500) 04/04/23 14:29 Urine Color Yellow 04/04/23 15:47 Urine Appearance Turbid (Clear) A 04/04/23 15:47 Urine pH 5.5 (4.5-7.5) 04/04/23 15:47 Ur Specific [place] 1.020 (1.000-1.030) 04/04/23 15:47 Urine Protein 2+ (Negative) H 04/04/23 15:47 Urine Glucose (UA) 3+ (Negative) H 04/04/23 15:47 Urine Ketones Trace (Negative) H 04/04/23 15:47 Urine Blood 1+ (Negative) H 04/04/23 15:47 Urine Nitrite Negative (Negative) 04/04/23 15:47 Urine Bilirubin Negative (Negative) 04/04/23 15:47 Urine Urobilinogen Negative (Negative) 04/04/23 15:47 Ur Leukocyte Esterase 2+ (Negative) H 04/04/23 15:47 Urine WBC (Auto) >30 /hpf (0-5) H 04/04/23 15:47 Urine RBC (Auto) 0-4 /hpf (0-4) 04/04/23 15:47 U Hyaline Cast (Auto) 1-5 /lpf (0-5) 04/04/23 15:47 U Epithel Cells (Auto) 5-10 /lpf (0-5) H 04/04/23 15:47 Urine Bacteria (Auto) 4+ (Negative) H 04/04/23 15:47 Enterobacterales (PCR) DETECTED (NotDetected) A 04/04/23 19:32 E. coli (PCR) DETECTED (NotDetected) A 04/04/23 19:32 SARS-CoV-2, RNA, NAAT NEGATIVE (NEGATIVE) 04/04/23 21:15 mcr-1 [place] Res Gene PCR Not Detected (NotDetected) 04/04/23 19:32 blaIMP Car res Gene PCR Not Detected (NotDetected) 04/04/23 19:32 KPC-Carbap Res Gene PCR Not Detected (NotDetected) 04/04/23 19:32 blaNDM Car Res Gene PCR Not Detected (NotDetected) 04/04/23 19:32 OXA-48 Carbapenem Resis Gene (PCR) Not Detected (NotDetected) 04/04/23 19:32 blaVIM Car Res Gene PCR Not Detected (NotDetected) 04/04/23 19:32 CTX-M Gene Resistance (PCR) Not Detected (NotDetected) 04/04/23 19:32 Bld Cult ID Panel PCR See PCR Comment (NotDetected) 04/04/23 19:32 Impressions Abdomen/Pelvis CT 04/04/23 18:51 Exam(s): CT ABDOMEN + PELVIS With Contrast IV Amt: 81 ml optiray 320 EXAM: CT Abdomen and Pelvis With Intravenous Contrast CLINICAL HISTORY: Reason for exam: uti, sepsis, fall. TECHNIQUE: Axial computed tomography images of the abdomen and pelvis with intravenous contrast. CTDI is 19 mGy and DLP is 1036 mGy-cm. Automated exposure control was utilized for the study. A dose lowering technique was utilized adhering to the principles of ALARA. CONTRAST: Patient received 81 ml optiray 320 of IV contrast COMPARISON: No relevant prior studies available. FINDINGS: ABDOMEN: Liver: Unremarkable. Gallbladder and bile ducts: Cholecystectomy. Pancreas: Unremarkable. Spleen: Unremarkable. Adrenals: Unremarkable. Kidneys and ureters: Patchy heterogeneous enhancement within the left kidney with perinephric inflammatory changes and urothelial thickening consistent with acute pyelonephritis. No perinephric abscess. Stomach and bowel: Unremarkable. PELVIS: Appendix: No findings to suggest acute appendicitis. Bladder: Unremarkable. Reproductive: Unremarkable as visualized. ABDOMEN and PELVIS: Intraperitoneal space: Unremarkable. No free air. No significant fluid collection. Bones/joints: Degenerative changes in the lumbar spine status post instrumented fusion. Soft tissues: Unremarkable. Vasculature: Unremarkable. Lymph nodes: Unremarkable. IMPRESSION: Patchy heterogeneous enhancement within the left kidney with perinephric inflammatory changes and urothelial thickening consistent with acute pyelonephritis. No perinephric abscess. Electronically signed by: Austin Dowell MD 04/04/23 19:[address] 04/04/23 18:51 Exam(s): CT HEAD Without Contrast EXAM: CT Head Without Intravenous Contrast CLINICAL HISTORY: Reason for exam: ams, fall. TECHNIQUE: Axial computed tomography images of the head/brain without intravenous contrast. CTDI is 113.43 mGy and DLP is 1718.51 mGy-cm. Automated exposure control was utilized for the study. A dose lowering technique was utilized adhering to the principles of ALARA. COMPARISON: No relevant prior studies available. FINDINGS: Brain: No hemorrhage, extra-axial fluid collection, mass effect, or edema. Mild chronic microvascular ischemic changes. Ventricles: Unremarkable. Bones/joints: Unremarkable. No fracture. Soft tissues: Unremarkable. Sinuses: No acute sinusitis. Mastoid air cells: Unremarkable as visualized. IMPRESSION: 1. No acute intracranial abnormality. Electronically signed by: Austin Dowell MD 04/04/23 19:39 PM Chest X-Ray 04/04/23 19:00 XR chest 1V portable HISTORY: Sepsis. Shortness of breath. COMPARISON: Chest 12/29/2013. FINDINGS: No pneumothorax. No pleural effusions. The cardiac silhouette remains mildly enlarged. There are few small bibasilar linear densities consistent with subsegmental atelectasis or scarring. This is similar to the prior study. No new focal lung consolidations to suggest a pneumonia. No evidence for pulmonary edema. Prior cholecystectomy. A right jugular Port-A-Cath terminates in the distal SVC. There are low lung volumes. IMPRESSION: No acute process. ACT 112: Negative or not required by law. Electronically signed by: Bogdan Lyon M.D. 04/05/2023 6:39 AM
[2023-04-05] MEDS ORDERED: DC IV INSULIN INFUSION 1 EA DEVI ONE (16:00)
[2023-04-05] MEDS: CEFEPIME 2,000 MG in SYRINGE 0 ML IV SCH (16:02)
[2023-04-05] MEDS: VENLAFAXINE HCL XR 150 MG CAPXR PO SCH (20:09)
[2023-04-06] MEDS: CEFEPIME 2,000 MG in SYRINGE 0 ML IV SCH ×3 (00:10→21:40)
[2023-04-06] MEDS: SODIUM CHLORIDE 0.9% 1000ML 1,000 ML IV SCH ×2 (00:10→08:18)
[2023-04-06] MEDS: ACETAMINOPHEN 325 MG TAB PO PRN ×2 (05:12→19:19)
[2023-04-06] MEDS: LEVOTHYROXINE SODIUM 75 MCG TABLET PO SCH (05:12)
[2023-04-06] MEDS: PANTOprazole 40 MG TAB PO SCH (08:18)
[2023-04-06] MEDS: ISOSORBIDE MONO EXTENDED REL 30 MG TABCR PO SCH (08:18)
[2023-04-06] MEDS: VIBEGRON 75 MG TAB PO SCH (08:18)
[2023-04-06] MEDS: CHOLECALCIFEROL 5,000 UNITS 125 MCG TAB PO SCH (08:18)
[2023-04-06] MEDS: METOPROLOL SUCC 50MG EXT REL TAB PO SCH (08:18)
[2023-04-06] MEDS: OXYBUTYNIN CHLORIDE XL 5 MG TABCR PO SCH (08:18)
[2023-04-06] MEDS: ACYCLOVIR 400 MG TAB PO SCH ×2 (08:18→19:33)
[2023-04-06] MEDS: ATORVASTATIN 40 MG TAB PO SCH (08:18)
[2023-04-06] MEDS: INSULIN ASPART PER UNIT CHARGE SC SCH ×4 (08:30→21:29)
[2023-04-06 08:31] LABS: Albumin Globulin Ratio 0.8 (0.9-2); Albumin Level 2.8 gm/dl (3.4-5.0); BUN Creatinine Ratio 16.9 (10-20); Bilirubin,Total 0.5 mg/dl (0.2-1.0); Calcium 8.3 mg/dl (8.6-10.3); Creatinine Clr Calc Pharmacy 59.4 ml/min; Est GFR (Non-African American) 63.8 ml/min; Globulin 3.4 gm/dl (2.5-4.0); Potassium 3.3 mmol/L (3.5-5.1); Total Protein 6.2 gm/dl (6.0-8.3)
[2023-04-06 08:41] LABS: Hemoglobin 8.1 g/dl (12.0-16.0); Mean Corpuscular Hemoglobin 38.2 pg (25.0-34.0); Mean Corpuscular Hgb Conc 35.2 g/dL (32.0-36.0); Mean Corpuscular Volume 108.5 fL (80.0-100.0); Mean Platelet Volume 10.5 fL (9.4-12.4); Platelet Count 22 K/uL (130-400); RDW Coefficient of Variation 13.2 % (11.5-14.5); RDW Standard Deviation 51.7 fL (36.4-46.3); Red Blood Count 2.12 M/uL (4.20-5.40); White Blood Count 7.42 K/ul (4.8-10.8)
--- NOTE | 2023-04-06 08:59 | Pharmacy Report ---
Pharmacy Glycemic Short Note 2 - Date of Service April 06, 2023 - Glycemic Short BSG Results (Last 24 hours): 04/05/23 04/05/23 04/05/23 09:29 10:38 11:29 Glucose POC Glucose 224 H 199 H 166 H 04/05/23 04/05/23 04/05/23 12:25 16:43 20:04 Glucose POC Glucose 115 H 185 H 155 H 04/06/23 04/06/23 07:34 07:39 Glucose 192 H POC Glucose 210 H OUTPATIENT ANTIDIABETIC REGIMEN: * Levemir 28 units BIDM? (potentially 20 units daily) * Novolin R with meals * Metformin 1 gm PO BID * HbA1C = 10.2% (04/05/23) ASSESSMENT: 04/06: * Ruth was successfully transitioned off IV insulin infusion to SQ basal + bolus insulin yesterday afternoon. * She received a total of 49 units of SQ insulin (40 units Lantus + 9 units Novolog). * Fasting BSG is elevated at 210 mg/dL. Lunch also greater than 200 mg/dL. Will tighten correct factor and add Lantus dose per scale with dinner. 04/05: * Ms Burger is a 72 y/o F with a PMH of T2DM on insulin who presents with weakne ss and hyperglycemia. BSGs on admission were over 500 mg/dL. * Patient was initially started on an insulin infusion with rates as high as 6.6 units/hr in the new home sales consultant. * This AM, this pharmacist spoke with the patient's provider who expressed that he would like patient transitioned to SQ insulin. * Will start with weight-based dosing. Lantus 40 units SQ x 1. Insulin infusion calculator indicated a hold at 1 pm so d/c'ed insulin infusion. * For tomorrow, will have Lantus scale for tomorrow with doses of 30-35-40 units. * Novolog weight-based stress of 3 since patient does have significant insulin resistance. PLAN FOR INPATIENT GLYCEMIC CONTROL: * Hold outpatient oral diabetes medications * Basal insulin * Lantus 45 units SQ this morning * Lantus 0-5 units SQ with dinner * Bolus insulin * NovoLog per scale ACHS or Q6hrs while NPO * Goal Range: Low 110 mg/dL - High 140 mg/dL * Correction Factor: 15 mg/dL/unit * Nutritional / Prandial insulin per carb ratio of 1 unit per 7 grams CHO consumed
[2023-04-06] MEDS ORDERED: LANTUS PER UNIT CHARGE SC SCH ×2 (09:00→16:30)
[2023-04-06 09:53] LABS: ALC (manual) 0.67 K/uL (1.2-3.4); ANC (manual) 6.38 K/uL (1.4-6.5); Anisocytosis Present; Dohle Bodies 2+; Eosinophils # (manual) 0.07 K/uL (0-0.50); Eosinophils % (manual) 1 %; Hypogranular Neutrophils 1+; Lymphocytes # (manual) 0.67 K/uL (1.2-3.4); Lymphocytes % (manual) 9 %; Monocytes % (manual) 4 %; Neutrophils # (manual) 6.38 K/uL (1.40-6.50); Neutrophils % (manual) 86 %
[2023-04-06] MEDS ORDERED: POTASSIUM CHLORIDE CRTAB 20 MEQ TABCR PO STA (12:01)
--- NOTE | 2023-04-06 12:02 | Hospitalist Progress Note ---
Date of Service April 06, 2023 Assessment & Plan (1) Acute pyelonephritis: (2) E coli bacteremia: Plan: Sepsis due to Escherichia coli [E. coli] 72-year-old female with past medical history of type 2 diabetes mellitus, hypothyroidism, hyperlipidemia, history of myelodysplastic syndrome (history of stem cell transplant in August 2021, bone marrow biopsy done in March 20, 2023 showed recurrence of the disease) presented with hematuria and back pain. She also had generalized weakness. Lactate elevated on admission Abs reviewed; leukocytosis resolved. Urinalysis suggestive for infection. CT abdomen and pelvis personally reviewed; patchy heterogeneous enhancement within the left kidney with perinephric inflammatory changes consistent with acute pyelonephritis Urine culture positive for gram negative bacilli Blood culture positive for gram-negative bacilli; PCR positive for E. coli. Continue on cefepime. Will await final sensitivity and culture results. Repeat blood culture today Discontinue IV fluids and encourage oral hydration. (3) DM type 2 (diabetes mellitus, type 2): Plan: Significant hyperglycemia on admission. Initially on insulin drip. Switched over to subcu insulin. HbA1c of 10.2% Discussed with pharmacy regarding switching over to subcu insulin. Plan Myelodysplastic syndrome, status post stem cell transplant in August 2021. recent biopsy shows recurrence of disease. Followup with Heme/Onc. Labs reviewed; noted to have macrocytic anemia and thrombocytopenia. Continue to monitor labs. Chronic conditions: History of hypothyroidism. Continue Synthroid. Hyperlipidemia. On statin. Continue Lipitor History of coronary artery disease. Continue statin, Imdur and metoprolol.. Hypertension. On metoprolol and imdur with holding parameters. Gastroesophageal reflux disease: On omeprazole. Deep venous thrombosis prophylaxis. Sequential compression devices as the patient has thrombocytopenia. Discussed with granddaughter at bedside. Full code DVT prophylaxis SCDs. Patient has thrombocytopenia. PT OT ordered Time spent evaluating patient, direct bedside care, chart review, placing orders, interpretation of diagnostic studies, discussion with consultants, patient, and family members, as well as other required patient management activities is 60 minutes Please note the above document was generated using voice recognition software. It may contain grammatical, syntax or spelling errors. Any formal questions or c oncerns about the content, text or information contained within the body of this dictation should be directly addressed to the provider for clarification Admission and Anticipated Discharge Date Admission Date: April 04, 2023 Results & Data Results & Data Vital Signs (Past 12 Hours) Vital Signs Temp Pulse Pulse Resp BP BP Pulse Ox 04/06/23 11:26 36.9 C 74 18 108/61 74 L 04/06/23 07:36 37.0 C 77 18 101/63 94 04/06/23 07:28 108 H 04/06/23 03:59 37.9 C H 90 18 115/52 L 94 O2 Del Method 04/06/23 11:26 Room Air 04/06/23 07:36 Room Air 04/06/23 07:28 04/06/23 03:59 Room Air
[2023-04-06] MEDS: VENLAFAXINE HCL XR 150 MG CAPXR PO SCH (19:34)
[2023-04-07] MEDS: INSULIN ASPART PER UNIT CHARGE SC SCH ×6 (01:07→20:44)
[2023-04-07] MEDS: LEVOTHYROXINE SODIUM 75 MCG TABLET PO SCH (05:50)
[2023-04-07 07:54] LABS: Hematocrit (blood only) 23.4 % (37.0-47.0); Hemoglobin 8.2 g/dl (12.0-16.0); Mean Corpuscular Hemoglobin 37.4 pg (25.0-34.0); Mean Corpuscular Volume 106.8 fL (80.0-100.0); Mean Platelet Volume 10.2 fL (9.4-12.4); Platelet Count 20 K/uL (130-400); RDW Standard Deviation 50.7 fL (36.4-46.3); Red Blood Count 2.19 M/uL (4.20-5.40); White Blood Count 4.48 K/ul (4.8-10.8)
[2023-04-07] MEDS ORDERED: ONDANSETRON INJ 2 MG/ML 2 ML VIAL IV PRN (07:57)
[2023-04-07 08:09] LABS: BUN Creatinine Ratio 12.8 (10-20); Calcium 8.9 mg/dl (8.6-10.3); Creatinine Clr Calc Pharmacy 60.7 ml/min; Est GFR (African American) 77.1 ml/min; Est GFR (Non-African American) 66.6 ml/min; Potassium 3.4 mmol/L (3.5-5.1)
[2023-04-07] MEDS: CEFEPIME 2,000 MG in SYRINGE 0 ML IV SCH (08:20)
[2023-04-07 08:37] LABS: ALC (manual) 0.99 K/uL (1.2-3.4); Blast # (manual) 0.13 K/uL (0-0); Blast Cells % (manual) 3 %; Dohle Bodies 1+; Eosinophils # (manual) 0.04 K/uL (0-0.50); Eosinophils % (manual) 1 %; Hypogranular Neutrophils 1+; Lymphocytes # (manual) 0.99 K/uL (1.2-3.4); Lymphocytes % (manual) 22 %; Monocytes # (manual) 0.27 K/uL (0.11-0.59); Monocytes % (manual) 6 %; Myelocytes # (manual) 0.09 K/uL (0-0); Myelocytes % (manual) 2 %; Neutrophils % (manual) 67 %; Platelet Estimate Signific. Decreased (Normal); Polychromasia 1+
[2023-04-07] MEDS: VIBEGRON 75 MG TAB PO SCH (08:55)
[2023-04-07] MEDS: METOPROLOL SUCC 50MG EXT REL TAB PO SCH (08:55)
[2023-04-07] MEDS: OXYBUTYNIN CHLORIDE XL 5 MG TABCR PO SCH (08:55)
[2023-04-07] MEDS: PANTOprazole 40 MG TAB PO SCH (08:55)
[2023-04-07] MEDS: ATORVASTATIN 40 MG TAB PO SCH (08:55)
[2023-04-07] MEDS: ACYCLOVIR 400 MG TAB PO SCH ×2 (08:55→20:18)
[2023-04-07] MEDS: ISOSORBIDE MONO EXTENDED REL 30 MG TABCR PO SCH (08:55)
[2023-04-07] MEDS: CHOLECALCIFEROL 5,000 UNITS 125 MCG TAB PO SCH (08:55)
[2023-04-07] MEDS ORDERED: LANTUS PER UNIT CHARGE SC SCH ×2 (09:00→21:00)
--- NOTE | 2023-04-07 15:02 | Pharmacy Report ---
Pharmacy Glycemic Short Note 2 - Date of Service April 07, 2023 - Glycemic Short BSG Results (Last 24 hours): 04/06/23 04/06/23 04/06/23 16:55 16:56 20:47 Glucose POC Glucose 67 L* 67 L* 117 H 04/07/23 04/07/23 04/07/23 01:07 04:14 06:56 Glucose 122 H POC Glucose 81 97 04/07/23 04/07/23 07:27 11:28 Glucose POC Glucose 130 H 172 H OUTPATIENT ANTIDIABETIC REGIMEN: * Levemir 28 units BIDM? (potentially 20 units daily) * Novolin R with meals * Metformin 1 gm PO BID * HbA1C = 10.2% (04/05/23) ASSESSMENT: 04/07: * Ruth received 59 units of SQ insulin yesterday. She experienced an episode of hypoglycemia around dinner time (BSG 67 mg/dL). * Fasting BSG of 130 mg/dL this morning. Will decrease basal insulin to a total of 30-35 units today compared to 45 units yesterday. * Novolog correction factor and carb ratio were loosened last evening. Will trial CF 25 and CR 9 today (this is based on ~ 60 units of insulin per day). 04/06: * Ruth was successfully transitioned off IV insulin infusion to SQ basal + bolus insulin yesterday afternoon. * She received a total of 49 units of SQ insulin (40 units Lantus + 9 units Novolog). * Fasting BSG is elevated at 210 mg/dL. Lunch also greater than 200 mg/dL. Will tighten correct factor and add Lantus dose per scale with dinner. 04/05: * Ms Burger is a 72 y/o F with a PMH of T2DM on insulin who presents with weakness and hyperglycemia. BSGs on admission were over 500 mg/dL. * Patient was initially started on an insulin infusion with rates as high as 6.6 units/hr in the clinical science consultant. * This AM, this pharmacist spoke with the patient's provider who expressed that he would like patient transitioned to SQ insulin. * Will start with weight-based dosing. Lantus 40 units SQ x 1. Insulin infusion calculator indicated a hold at 1 pm so d/c'ed insulin infusion. * For tomorrow, will have Lantus scale for tomorrow with doses of 30-35-40 units. * Novolog weight-based stress of 3 since patient does have significant insulin resistance. PLAN FOR INPATIENT GLYCEMIC CONTROL: * Hold outpatient oral diabetes medications * Basal insulin * Lantus 20 units SQ this morning * Lantus 10-15 units SQ with dinner (15 units if BSG > 160) * Reassess basal on 04/08 AM * Bolus insulin * NovoLog per scale ACHS or Q6hrs while NPO * Goal Range: Low 110 mg/dL - High 140 mg/dL * Correction Factor: 25 mg/dL/unit * Nutritional / Prandial insulin per carb ratio of 1 unit per 9 grams CHO consumed
--- NOTE | 2023-04-07 15:24 | Hospitalist Progress Note ---
Date of Service April 07, 2023 Assessment & Plan (1) Acute pyelonephritis: (2) E coli bacteremia: Plan: Sepsis due to Escherichia coli [E. coli] 72-year-old female with past medical history of type 2 diabetes mellitus, hypothyroidism, hyperlipidemia, history of myelodysplastic syndrome (history of stem cell transplant in August 2021, bone marrow biopsy done in March 20, 2023 showed recurrence of the disease) presented with hematuria and back pain. She also had generalized weakness. Lactate elevated on admission LAbs reviewed; leukocytosis resolved. Urinalysis suggestive for infection. CT abdomen and pelvis personally reviewed; patchy heterogeneous enhancement within the left kidney with perinephric inflammatory changes consistent with acute pyelonephritis Urine culture positive for E. coli; pansensitive Blood culture on admission 2 out of 4 bottle positive for E. coli as well Switch cefepime to ceftriaxone. Repeat blood culture negative so far. We will follow-up on it tomorrow. encourage oral hydration. (3) DM type 2 (diabetes mellitus, type 2): Plan: Significant hyperglycemia on admission. Initially on insulin drip. Switched over to subcu insulin. HbA1c of 10.2% Discussed with pharmacy regarding switching over to subcu insulin. Currently on NovoLog and Lantus. Plan Myelodysplastic syndrome, status post stem cell transplant in August 2021. recent biopsy shows recurrence of disease. Followup with Heme/Onc. Labs reviewed; noted to have macrocytic anemia and thrombocytopenia. Continue to m onitor labs. Chronic conditions: History of hypothyroidism. Continue Synthroid. Hyperlipidemia. On statin. Continue Lipitor History of coronary artery disease. Continue statin, Imdur and metoprolol.. Hypertension. On metoprolol and imdur with holding parameters. Gastroesophageal reflux disease: On omeprazole. Deep venous thrombosis prophylaxis. Sequential compression devices as the patient has thrombocytopenia. Full code DVT prophylaxis SCDs. Patient has thrombocytopenia. PT OT ordered Time spent evaluating patient, direct bedside care, chart review, placing orders, interpretation of diagnostic studies, discussion with consultants, patient, and family members, as well as other required patient management activities is 60 minutes Please note the above document was generated using voice recognition software. It may contain grammatical, syntax or spelling errors. Any formal questions or concerns about the content, text or information contained within the body of this dictation should be directly addressed to the provider for clarification Admission and Anticipated Discharge Date Admission Date: April 04, 2023 Subjective Patient seen and examined at bedside. She is comfortable; not in distress. Denies fever or chills. Reports that her energy has improved today. Review of Systems Review of Systems: All systems reviewed & are unremarkable except as noted in Subjective Physical Exam Physical Exam: Constitutional: WD/WN, vitals as above, NAD, sitting up in bed, pleasant, conversing easily [id number] present on right side Respiratory: Bilateral clear breath sound. Cardiovascular: RRR, no murmur, no edema Vessels: no JVD or carotid bruit Chest: normal inspection of chest Abdomen: normal bowel sounds, soft, nontender, no hepatosplenomegaly. Left costovertebral angle tender. Musculoskeletal: no cyanosis or clubbing, extremities motor strength 5/5 Skin: no rashes, warm and dry normal turgor Neurologic: Grossly intact. Psychiatric: A+Ox3, euthymic affect Lymphatic: no cervical or axillary lymphadenopathy : deferred Results & Data Results & Data Vital Signs (Past 12 Hours) Vital Signs Temp Pulse Pulse Resp BP Pulse Ox O2 Del Method 04/07/23 11:29 36.4 C L 72 18 119/60 96 Room Air 04/07/23 06:18 78 04/07/23 07:28 36.8 C 75 18 132/73 96 Room Air Laboratory Results Laboratory Results WBC 4.48 K/ul (4.8-10.8) L 04/07/23 06:56 RBC 2.19 M/uL (4.20-5.40) L 04/07/23 06:56 Hgb 8.2 g/dl (12.0-16.0) L 04/07/23 06:56 Hct 23.4 % (37.0-47.0) L 04/07/23 06:56 MCV 106.8 fL (80.0-100.0) H 04/07/23 06:56 MCH 37.4 pg (25.0-34.0) H 04/07/23 06:56 MCHC 35.0 g/dL (32.0-36.0) 04/07/23 06:56 RDW Std Deviation 50.7 fL (36.4-46.3) H 04/07/23 06:56 RDW Coeff of Evin 13.0 % (11.5-14.5) 04/07/23 06:56 Plt Count 20 K/uL (130-400) L* 04/07/23 06:56 MPV 10.2 fL (9.4-12.4) 04/07/23 06:56 Immature Gran % (Auto) 0.0 % 04/05/23 05:49 Neut % (Auto) 62.2 % 04/05/23 05:49 Lymph % (Auto) 34.7 % 04/05/23 05:49 Otoe % (Auto) 3.0 % 04/05/23 05:49 Eos % (Auto) 0.0 % 04/05/23 05:49 Baso % (Auto) 0.1 % 04/05/23 05:49 Neut # (Auto) 9.44 K/uL (1.40-6.50) H 04/05/23 05:49 Lymph # (Auto) 5.28 K/uL (1.2-3.4) H 04/05/23 05:49 [place]e # (Auto) 0.46 K/uL (0.11-0.59) 04/05/23 05:49 Eos # (Auto) 0.00 K/uL (0-0.50) 04/05/23 05:49 Baso # (Auto) 0.02 K/uL (0-0.2) 04/05/23 05:49 Immature Gran # (Auto) 0.00 K/uL (0.01-0.20) L 04/05/23 05:49 Neutrophils % (Manual) 67 % 04/07/23 06:56 Lymphocytes % (Manual) 22 % 04/07/23 06:56 Monocytes % (Manual) 6 % 04/07/23 06:56 Eosinophils % (Manual) 1 % 04/07/23 06:56 Myelocytes % (Man) 2 % 04/07/23 06:56 Blast Cells % (Manual) 3 % 04/07/23 06:56 Neutrophils # (Manual) 3.00 K/uL (1.40-6.50) 04/07/23 06:56 Total Absolute Neuts 3.00 K/uL (1.4-6.5) 04/07/23 06:56 Lymphocytes # (Manual) 0.99 K/uL (1.2-3.4) L 04/07/23 06:56 Total Abs Lymphocytes 0.99 K/uL (1.2-3.4) L 04/07/23 06:56 Monocytes # (Manual) 0.27 K/uL (0.11-0.59) 04/07/23 06:56 Eosinophils # (Manual) 0.04 K/uL (0-0.50) 04/07/23 06:56 Myelocytes # (Manual) 0.09 K/uL (0-0) H 04/07/23 06:56 Blast Cells # (Man) 0.13 K/uL (0-0) H 04/07/23 06:56 Hyposegmented Neuts 1+ 04/07/23 06:56 Hypogranular Neuts 1+ 04/07/23 06:56 Blood Smear Review 04/07/23 06:56 Toxic Vacuolation 1+ 04/04/23 14:29 Dohle Bodies 1+ 04/07/23 06:56 Platelet Estimate Signific. Decreased (Normal) L 04/07/23 06:56 Polychromasia 1+ 04/07/23 06:56 Anisocytosis Present 04/06/23 07:34 Tear Drop Cells 1+ 04/04/23 14:29 PT 12.1 Seconds (9.0-12.0) H 04/04/23 14:29 INR 1.1 (0.9-1.1) 04/04/23 14:29 APTT 25.7 Seconds (21.0-31.0) 04/04/23 14:29 PTT Ratio 0.9 04/04/23 14:29 Sodium 139 mmol/L (136-145) 04/07/23 06:56 Potassium 3.4 mmol/L (3.5-5.1) L 04/07/23 06:56 Chloride 108 mmol/L (98-107) H 04/07/23 06:56 Carbon Dioxide 26 mmol/L (21-32) 04/07/23 06:56 Anion Gap 5 (3-11) 04/07/23 06:56 BUN 11 mg/dl (6-23) 04/07/23 06:56 Creatinine 0.86 mg/dl (0.6-1.2) 04/07/23 06:56 Est Cr Clr Drug Dosing 60.7 ml/min 04/07/23 06:56 Est GFR ( Amer) 77.1 ml/min 04/07/23 06:56 Est GFR (Non-Af Amer) 66.6 ml/min 04/07/23 06:56 BUN/Creatinine Ratio 12.8 (10-20) 04/07/23 06:56 Glucose 122 mg/dl (70-99(Fasting)) H 04/07/23 06:56 POC Glucose 172 mg/dl (70-99) H 04/07/23 11:28 Estimat Average Glucose 246 mg/dl 04/05/23 05:49 Hemoglobin A1c 10.2 % (4.5-5.6) H 04/05/23 05:49 Osmolality 305 mOsm/kg (280-300) H 04/04/23 19:32 Lactate 1.6 mmol/L (0.4-2.0) 04/04/23 21:21 Calcium 8.9 mg/dl (8.6-10.3) 04/07/23 06:56 Magnesium 2.0 mg/dl (1.7-2.4) 04/05/23 05:49 Total Bilirubin 0.5 mg/dl (0.2-1.0) 04/06/23 07:34 AST 23 U/L (13-39) 04/06/23 07:34 ALT 18 U/L (7-52) 04/06/23 07:34 Alkaline Phosphatase 58 U/L (34-104) 04/06/23 07:34 Troponin I High Sens 8.9 pg/ml (0-14) 04/04/23 14:29 Total Protein 6.2 gm/dl (6.0-8.3) D 04/06/23 07:34 Albumin 2.8 gm/dl (3.4-5.0) L 04/06/23 07:34 Globulin 3.4 gm/dl (2.5-4.0) 04/06/23 07:34 Albumin/Globulin Ratio 0.8 (0.9-2) L 04/06/23 07:34 Procalcitonin 1.99 ng/ml (0-0.5) H 04/04/23 19:32 TSH 1.223 uIu/ml (0.300-4.500) 04/04/23 14:29 Urine Color Yellow 04/04/23 15:47 Urine Appearance Turbid (Clear) A 05/23/23 15:47 Urine pH 5.5 (4.5-7.5) 04/04/23 15:47 Ur Specific [place] 1.020 (1.000-1.030) 04/04/23 15:47 Urine Protein 2+ (Negative) H 04/04/23 15:47 Urine Glucose (UA) 3+ (Negative) H 04/04/23 15:47 Urine Ketones Trace (Negative) H 04/04/23 15:47 Urine Blood 1+ (Negative) H 04/04/23 15:47 Urine Nitrite Negative (Negative) 04/04/23 15:47 Urine Bilirubin Negative (Negative) 04/04/23 15:47 Urine Urobilinogen Negative (Negative) 04/04/23 15:47 Ur Leukocyte Esterase 2+ (Negative) H 04/04/23 15:47 Urine WBC (Auto) >30 /hpf (0-5) H 04/04/23 15:47 Urine RBC (Auto) 0-4 /hpf (0-4) 04/04/23 15:47 U Hyaline Cast (Auto) 1-5 /lpf (0-5) 04/04/23 15:47 U Epithel Cells (Auto) 5-10 /lpf (0-5) H 04/04/23 15:47 Urine Bacteria (Auto) 4+ (Negative) H 04/04/23 15:47 Enterobacterales (PCR) DETECTED (NotDetected) A 04/04/23 19:32 E. coli (PCR) DETECTED (NotDetected) A 04/04/23 19:32 SARS-CoV-2, RNA, NAAT NEGATIVE (NEGATIVE) 04/04/23 21:15 mcr-1 Colistin Res Gene PCR Not Detected (NotDetected) 04/04/23 19:32 blaIMP Car res Gene PCR Not Detected (NotDetected) 04/04/23 19:32 KPC-Carbap Res Gene PCR Not Detected (NotDetected) 04/04/23 19:32 blaNDM Car Res Gene PCR Not Detected (NotDetected) 04/04/23 19:32 OXA-48 Carbapenem Resis Gene (PCR) Not Detected (NotDetected) 04/04/23 19:32 blaVIM Car Res Gene PCR Not Detected (NotDetected) 04/04/23 19:32 CTX-M Gene Resistance (PCR) Not Detected (NotDetected) 04/04/23 19:32 Bld Cult ID Panel PCR See PCR Comment (NotDetected) 04/04/23 19:32 Impressions Abdomen/Pelvis CT 04/04/23 18:51 Exam(s): CT ABDOMEN + PELVIS With Contrast IV Amt: 81 ml optiray 320 EXAM: CT Abdomen and Pelvis With Intravenous Contrast CLINICAL HISTORY: Reason for exam: uti, sepsis, fall. TECHNIQUE: Axial computed tomography images of the abdomen and pelvis with intravenous contrast. CTDI is 19 mGy and DLP is 1036 mGy-cm. Automated exposure control was utilized for the study. A dose lowering technique was utilized adhering to the principles of ALARA. CONTRAST: Patient received 81 ml optiray 320 of IV contrast COMPARISON: No relevant prior studies available. FINDINGS: ABDOMEN: Liver: Unremarkable. Gallbladder and bile ducts: Cholecystectomy. Pancreas: Unremarkable. Spleen: Unremarkable. Adrenals: Unremarkable. Kidneys and ureters: Patchy heterogeneous enhancement within the left kidney with perinephric inflammatory changes and urothelial thickening consistent with acute pyelonephritis. No perinephric abscess. Stomach and bowel: Unremarkable. PELVIS: Appendix: No findings to suggest acute appendicitis. Bladder: Unremarkable. Reproductive: Unremarkable as visualized. ABDOMEN and PELVIS: Intraperitoneal space: Unremarkable. No free air. No significant fluid collection. Bones/joints: Degenerative changes in the lumbar spine status post instrumented fusion. Soft tissues: Unremarkable. Vasculature: Unremarkable. Lymph nodes: Unremarkable. IMPRESSION: Patchy heterogeneous enhancement within the left kidney with perinephric inflammatory changes and urothelial thickening consistent with acute pyelonephritis. No perinephric abscess. Electronically signed by: Austin Dowell MD 04/04/23 19:[address] 04/04/23 18:51 Exam(s): CT HEAD Without Contrast EXAM: CT Head Without Intravenous Contrast CLINICAL HISTORY: Reason for exam: ams, fall. TECHNIQUE: Axial computed tomography images of the head/brain without intravenous contrast. CTDI is 113.43 mGy and DLP is 1718.51 mGy-cm. Automated exposure control was utilized for the study. A dose lowering technique was utilized adhering to the principles of ALARA. COMPARISON: No relevant prior studies available. FINDINGS: Brain: No hemorrhage, extra-axial fluid collection, mass effect, or edema. Mild chronic microvascular ischemic changes. Ventricles: Unremarkable. Bones/joints: Unremarkable. No fracture. Soft tissues: Unremarkable. Sinuses: No acute sinusitis. Mastoid air cells: Unremarkable as visualized. IMPRESSION: 1. No acute intracranial abnormality. Electronically signed by: Austin Dowell MD 04/04/23 19:39 PM Chest X-Ray 04/04/23 19:00 XR chest 1V portable HISTORY: Sepsis. Shortness of breath. COMPARISON: Chest 12/29/2013. FINDINGS: No pneumothorax. No pleural effusions. The cardiac silhouette remains mildly enlarged. There are few small bibasilar linear densities consistent with subsegmental atelectasis or scarring. This is similar to the prior study. No new focal lung consolidations to suggest a pneumonia. No evidence for pulmonary edema. Prior cholecystectomy. A right jugular Port-A-Cath terminates in the distal SVC. There are low lung volumes. IMPRESSION: No acute process. ACT 112: Negative or not required by law. Electronically signed by: Bogdan Lyon M.D. 04/05/2023 6:39 AM
[2023-04-07] MEDS ORDERED: cefTRIAXone SODIUM 2,000 MG in DEXTROSE 5% 50 ML IV SCH (20:00)
[2023-04-07] MEDS: VENLAFAXINE HCL XR 150 MG CAPXR PO SCH (20:18)
[2023-04-08] MEDS: HEPARIN 100 UNIT/ML 5ML FLUSH FLUSH PRN ×2 (06:29→13:53)
[2023-04-08] MEDS: LEVOTHYROXINE SODIUM 75 MCG TABLET PO SCH (06:29)
[2023-04-08 07:43] LABS: Hematocrit (blood only) 23.5 % (37.0-47.0); Mean Corpuscular Volume 108.8 fL (80.0-100.0); Mean Platelet Volume 9.5 fL (9.4-12.4); Platelet Count 23 K/uL (130-400); RDW Coefficient of Variation 13.1 % (11.5-14.5); RDW Standard Deviation 52.6 fL (36.4-46.3); Red Blood Count 2.16 M/uL (4.20-5.40); White Blood Count 4.46 K/ul (4.8-10.8)
[2023-04-08 07:51] LABS: BUN Creatinine Ratio 13.5 (10-20); Calcium 8.9 mg/dl (8.6-10.3); Creatinine Clr Calc Pharmacy 58.9 ml/min; Est GFR (Non-African American) 63.8 ml/min; Potassium 3.9 mmol/L (3.5-5.1)
[2023-04-08] MEDS: ACETAMINOPHEN 325 MG TAB PO PRN (08:30)
[2023-04-08] MEDS: INSULIN ASPART PER UNIT CHARGE SC SCH ×2 (08:31→12:25)
[2023-04-08] MEDS: ACYCLOVIR 400 MG TAB PO SCH (08:31)
[2023-04-08] MEDS: ISOSORBIDE MONO EXTENDED REL 30 MG TABCR PO SCH (08:33)
[2023-04-08] MEDS: METOPROLOL SUCC 50MG EXT REL TAB PO SCH (08:33)
[2023-04-08] MEDS: VIBEGRON 75 MG TAB PO SCH (08:33)
[2023-04-08] MEDS: ATORVASTATIN 40 MG TAB PO SCH (08:33)
[2023-04-08] MEDS: OXYBUTYNIN CHLORIDE XL 5 MG TABCR PO SCH (08:33)
[2023-04-08] MEDS: PANTOprazole 40 MG TAB PO SCH (08:34)
[2023-04-08] MEDS: CHOLECALCIFEROL 5,000 UNITS 125 MCG TAB PO SCH (08:34)
[2023-04-08 08:48] LABS: Dohle Bodies 1+; Eosinophils # (auto) 0.12 K/uL (0-0.50); Eosinophils % (auto) 2.7 %; Hypogranular Neutrophils 1+; Lymphocytes # (auto) 2.45 K/uL (1.2-3.4); Lymphocytes % (auto) 54.9 %; Monocytes # (auto) 0.52 K/uL (0.11-0.59); Monocytes % (auto) 11.7 %; Neutrophils # (auto) 1.37 K/uL (1.40-6.50); Neutrophils % (auto) 30.7 %; Polychromasia 1+
[2023-04-08] MEDS ORDERED: LANTUS PER UNIT CHARGE SC SCH (09:00)
[2023-04-08] MEDS ORDERED: cefTRIAXone SODIUM 2,000 MG in DEXTROSE 5% 50 ML IV SCH (11:30)
--- NOTE | 2023-04-08 15:09 | Discharge Summary ---
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 The patient has stem cell transplant in 08/2021 for MDS and recently on 03/20/2023, she had a bone marrow biopsy, which showed recurrence of the disease. Supposed to follow with heme/onc. Comes here because yesterday she had hematuria and also back pain and today,[facility] visiting doctors checked her and her pulse ox was slightly low and she was hypotensive, feeling weak and advised to come to the hospital. In the ER, Sodium is 124. Sugar is 586. Lactate initially was 2.9, repeat is 1.6. Magnesium is 0.9. Urine was grossly positive. Received fluids and antibiotic.. Currently, resting comfortably. blood pressure is okay. Hemodynamics are okay. Denies any chest pain, no shortness of breath, no nausea or vomiting. No cough, no headache. Vision is blurry says from high sugars, somewhat hard of hearing, has some congestion, no sore throat, no difficulty swallowing. She has issues with the bowel constipation and diarrhea. No blood in the stools. Normal bladder movements. Admission Exam Per Admitting Provider GENERAL: The patient is of moderate build, not in acute distress. VITAL SIGNS: Temperature T-max 39.5, pulse 69, respiratory rate 18, blood pressure 133/71, oxygen 96% on room air. HEENT: Pupils equal, round and reactive to light. 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 No facial droop. Oral mucosa dry. NECK: No JVD. No neck masses. CARDIOVASCULAR: S1 and S2 heard. Regular rate and rhythm. No murmur, no gallop. RESPIRATORY SYSTEM: Normal AP diameter. No accessory muscle use. No wheezing or crackles. ABDOMEN: Soft, bowel sounds present, nontender, no distention. CENTRAL NERVOUS SYSTEM: Alert and oriented. Speech is clear. No facial droop. Obeys simple commands. Moves extremities. EXTREMITIES: No edema, no erythema. Principal Diagnosis (1) Acute pyelonephritis: (2) E coli bacteremia: Discharge Exam Constitutional: WD/WN, vitals as above, NAD, sitting up in bed, pleasant, conversing easily [id number]-[id number]-Gjlh present on right side Respiratory: Bilateral clear breath sound. Cardiovascular: RRR, no murmur, no edema Vessels: no JVD or carotid bruit Chest: normal inspection of chest Abdomen: normal bowel sounds, soft, nontender, no hepatosplenomegaly. Left costovertebral angle tender. Musculoskeletal: no cyanosis or clubbing, extremities motor strength 5/5 Skin: no rashes, warm and dry normal turgor Neurologic: Grossly intact. Psychiatric: A+Ox3, euthymic affect Lymphatic: no cervical or axillary lymphadenopathy : deferred Discharge Data Allergies Allergy/AdvReac Type Severity Reaction Status Date / Time No Known Allergies Allergy Verified 07/12/21 10:31 Consultations 04/04/23 20:43 ED Decision to Admit Stat Ordered Studies 04/04/23 18:51 CT abd pelvis IV con only Stat CT head/brain wo con Stat Diabetes Follow up Diabetes Follow-up Needed for HgbA1c >9% Hospital Course (1) Acute pyelonephritis: (2) E coli bacteremia: Sepsis due to Escherichia coli [E. coli] 72-year-old female with past medical history of type 2 diabetes mellitus, hypothyroidism, hyperlipidemia, history of myelodysplastic syndrome (history of stem cell transplant in August 2021, bone marrow biopsy done in March 20, 2023 showed recurrence of the disease) presented with hematuria and back pain. She also had generalized weakness. Lactate elevated on admission LAbs reviewed; leukocytosis resolved. Urinalysis suggestive for infection. CT abdomen and pelvis personally reviewed; patchy heterogeneous enhancement within the left kidney with perinephric inflammatory changes consistent with acute pyelonephritis Urine culture positive for E. coli; pansensitive Blood culture on admission 2 out of 4 bottle positive for E. coli as well During the hospitalization, patient was treated with IV fluids, IV antibiotic. Patient's symptoms improved throughout the course of the hospitalization. She was afebrile for 48 hours prior to discharge. Patient was discharged on 10 more days of oral antibiotic. Patient to follow-up with her primary care doctor. She will also follow-up with her oncology for follow-up with myelodysplastic syndrome. Discharge instructions were given to her daughter over the phone at discharge. Please note the above document was generated using voice recognition software. It may contain grammatical, syntax or spelling errors. Any formal questions or concerns about the content, text or information contained within the body of this dictation should be directly addressed to the provider for clarification Total Time Total Time Spent Total Time Spent (In Minutes): 40 Total Time Includes: Examination of the Patient, Discharge Planning, Medication Reconciliation, Communication With Other Providers and Other Discharge Plan Discharge Items Patient Disposition: Home - Self-Care Reason For Visit: WEAKNESS Discharge Diagnosis: Acute pyelonephritis Sepsis due to E. coli Activity: Resume your previous activity Non-emergency contact: Primary Care Provider Call non-emergency contact if: you have any medication questions and your symptoms worsen Follow-up/Referrals: Dhruv Moss MD [Primary Care Provider] - (Date & Time 04/14/2023 11:00 AM Provider Dhruv Moss MD Department Family Medicine [facility] ) Diet: Regular Addtl Attending Provider Instructions: You were admitted to the hospital due to sepsis secondary to the UTI. You were treated with IV antibiotic during her hospitalization. You are prescribed Augmentin to be taken twice daily for 10 more days to complete the antibiotic course. An appointment is set up for you with your primary care doctor for next week. Follow-up with oncology. Pending Studies at Discharge: No Stand-Alone Forms: My [facility] [employer], Smoking Cessation Medications and DC Order Prescriptions: New acetaminophen 325 mg Tablet 650 mg PO Q4H PRN (Reason: fever or pain) Qty: 30 0RF amoxicillin-pot clavulanate 875-125 mg tablet 1 tab PO BID 10 Days Qty: 20 0RF Continued omeprazole 20 mg Capsule,Delayed Release(Dr/Ec) 20 mg PO DAILY tramadol 50 mg Tablet 50 mg PO Q6H PRN (Reason: Pain) metoprolol succinate 50 mg tablet extended release 24 hr 50 mg PO QAM isosorbide mononitrate 30 mg tablet extended release 24 hr 30 mg PO QAM venlafaxine [Effexor XR] 150 mg capsule,extended release 24hr 150 mg PO HS metformin 1,000 mg tablet 1,000 mg PO BIDM Novolin R FlexPen 100 unit/mL (3 mL) Insulin Pen 0 unit SUBCUT .SLIDING SCALE Levemir U-100 Insulin 100 unit/mL solution 22 unit SUBCUT HS cholecalciferol (vitamin D3) [Vitamin D3] 125 mcg (5,000 unit) Tablet 125 mcg PO QAM atorvastatin 40 mg tablet 40 mg PO DAILY acyclovir 800 mg tablet 800 mg PO BID levothyroxine 75 mcg tablet 75 mcg PO DAILY solifenacin 5 mg tablet 5 mg PO DAILY Myrbetriq 50 mg tablet extended release 24 hr 50 mg PO DAILY Discharge Orders: Discharge Order (Routine); Ordered 04/08/23 Ordered By: Sekou Parkinson/Other Patient Handouts: High Blood Sugar (Hyperglycemia), Managing Type 2 Diabetes, UTIs Understanding, Understanding Sepsis Admission Data Admit Date/Time: 04/04/23 22:08 Attending Provider: Sekou Reyna Admit Provider: Julio Hancock Primary Care Provider: Dhruv Moss Other Providers: Julio Hancock Other Interventions: Discharge Summary Assessment (RN) Last Done: 04/08/23 13:45
== END 2023-04-08 14:00 | disposition home health service (06) | DRG 872 ==
LOC: ED 14:00 → 2W 22:08
DX: E86.0 Dehydration; H02.402 Unspecified ptosis of left eyelid; R31.9 Hematuria, unspecified; E78.5 Hyperlipidemia, unspecified; D69.6 Thrombocytopenia, unspecified; E11.319 Type 2 diabetes mellitus with unspecified diabetic retinopathy without macular edema; D64.9 Anemia, unspecified; E03.9 Hypothyroidism, unspecified; I25.10 Atherosclerotic heart disease of native coronary artery without angina pectoris; Z94.84 Stem cells transplant status; J84.9 Interstitial pulmonary disease, unspecified; E87.1 Hypo-osmolality and hyponatremia; D46.9 Myelodysplastic syndrome, unspecified; K21.9 Gastro-esophageal reflux disease without esophagitis; I10 Essential (primary) hypertension; A41.51 Sepsis due to Escherichia coli [E. coli]; N10 Acute pyelonephritis; E83.42 Hypomagnesemia; E11.649 Type 2 diabetes mellitus with hypoglycemia without coma

== ENCOUNTER 2023-04-10 06:16 | Inpatient (IN) ==
[2023-04-10] MEDS ORDERED: SODIUM CHLORIDE 0.9% 500 ML IV ONE (06:25)
--- NOTE | 2023-04-10 06:30 | Emergency Department Note ---
Impression & Plan Generalized weakness, Hypomagnesemia, Closed fracture of right hip ED Provider Note Name: KELIN TANG Age: 72 Sex: F Arrives Via: Ambulance Informant: Patient ED Provider: Chinmay Vincent MD Chief Complaint: Fall Impression: As per impressions above Medical Decision Makin-year-old female with a history of chronic thrombocytopenia who was recently hospitalized for acute pyelonephritis and bacteremia arrives for evaluation following a fall at home. She has been at home for roughly a day and a half and is already fallen twice hitting her head. Fortunately CT head and neck are negative today. She does have right hip pain x-rays concerning for possible fracture thus CT was obtained which does show a greater trochanteric fracture with mild displacement. Labs reveal low magnesium. White count is okay she is afebrile. Procalcitonin is mildly elevated this would be consistent with her recent infection and I do not feel is consistent with need for blood cultures. At this time in the ER patient is not septic nor is any evidence of severe sepsis or septic shock. There is no indication for 30/kg fluid bolus but she does appear to bit dehydrated thus was given 500 mL IV fluids. No indication for emergent antibiotics as she is already receiving them as an outpatient as it is. Given the recurrent falls generalized weakness and the new hip fracture will need to come in for further monitoring and management. Prior Medical Record and Triage/Nursing Notes reviewed by Me Personally reviewed hospitalization records and other external records. Differentials:Intracranial hemorrhage, stroke, fracture, sepsis, electrolyte imbalance, many other pathologies considered Vital Signs: reviewed and remarkable for no significant abnormalities Interventions: Tylenol 1 g IV, magnesium 1 g IV Labs:Reviewed and remarkable for low magnesium, normal white count, mildly elevated procalcitonin. Personally reviewed all labs Imaging: As per my interpretation of chest x-ray reveals no infiltrate, effusion. As per my interpretation of right hip with pelvis no overt dislocation or large fracture questionable fracture greater trochanter. CT of the head without contrast as per my informal interpretation reveals no intracranial hemorrhage or mass effect. CT of the cervical spine as per radiologist no acute fracture or dislocation. CT of the right hip as per my informal interpretation there is a greater trocha nteric fracture with mild displacement. EKG:As per my interpretation. Indication weakness. Normal sinus rhythm at 77 bpm no ectopy no ischemia. When compared to an EKG of April 04, 2023 there is no significant change. Cardiac/Tele Monitoring: Cardiac Monitoring: An Order was placed for continuous cardiac monitoring. The monitor shows a rate of 70 with a normal sinus rhythm. Consults:Dr Axel Hare hospitalist Plan: Disposition:Hospitalization. Condition: Good History of Present Illness:Pleasant 72-year-old female arrives for evaluation of weakness and fatigue. Patient had been hospitalized for the last week due to bacteremia and pyelonephritis secondary to E. coli. Patient has been on Augmentin and notes she was just feeling bit tired yesterday. She has had no fevers, chills, nausea, vomiting, syncope, chest pain, abdominal pain, back pain, urinary burning, frequency, leg swelling, rashes or other concerning signs or symptoms. This morning she notes when she got up and was walking around she got very lightheaded and almost passed out. She did fall to the ground landing on her right hip and hitting her head off the ground. She notes a mild headache as well as right hip pain. No she is unable to walk due to hip pain. No medications prior to arrival. She is taking her Augmentin. Past History: See Below Home Medications:See Below Allergies:NKDA Vitals:Blood Pressure: 141/69, Pulse 78, RR 16, T 36.8C, O2 97% on RA Physical Exam: GENERAL: Patient is fatigued/dehydrated appearing and in minimal distress. HEAD: AT/NC EYES: No scleral icterus, unremarkable pupils. ENT: Mucous membranes dry, no nasal congestion. NECK: No masses appreciated, nomeningismus, trachea is midline. No cervical midline TTP RESPIRATORY: No dyspnea. Clear to auscultation and equal bilaterally. No wheeze, no rhonchi. CARDIOVASCULAR: Regular rate and rhythm.No murmurs, rubs, gallops appreciated. GASTROINTESTINAL: Soft nontender nondistended mild bruising along lower abdomen consistent with injections EXTREMITIES: Normal motion all extremities, no cyanosis, no edema. 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 PSYCH: Appropriate GCS: 15 ED Course: Times/Reassessments: Stable minimal distress to did require some Tylenol for hip pain. Chinmay Vincent MD Past Med/Surg History Medical History (Updated 04/10/23 @ 12:23 by Chinmay Vincent MD) CAD (coronary artery disease) 2017-EDIL to LAD Depression DM type 2 (diabetes mellitus, type 2) Dyslipidemia Hypertension Hypothyroidism Myelodysplastic syndrome Osteoarthritis Surgical History H/O dilation and curettage H/O tubal ligation History of cholecystectomy History of partial hysterectomy History of spinal fusion Family History Father Heart disease Mother Heart disease Sister Breast cancer Sister Multiple myeloma Brother Prostate cancer Social History Smoking Status: Never smoker Hx Alcohol Use: No Hx Substance Use: No Preferred Language: Setswana Communication Ability: Effective Supervising Editor Trailer Required: No Beliefs That Will Affect Care: None Current Living Situation: Spouse Feels Safe at Home: Yes Assistive Devices: Walker Allergies Allergies Allergy/AdvReac Type Severity Reaction Status Date / Time No Known Allergies Allergy Verified 07/12/21 10:31 Home Meds Home Medications Medication Instructions Recorded Confirmed cholecalciferol (vitamin D3) 125 125 mcg PO QAM 06/05/20 04/10/23 mcg (5,000 unit) tablet (Vitamin D3) insulin detemir U-100 100 unit/mL 22 unit subcut HS 06/05/20 04/10/23 subcutaneous solution (Levemir U-100 Insulin) insulin regular human 100 unit/mL 0 unit subcut .SLIDING SCALE 06/05/20 04/10/23 (3 mL) subcutaneous pen (Novolin R FlexPen) isosorbide mononitrate 30 mg 30 mg PO QAM 06/05/20 04/10/23 tablet,extended release 24 hr metformin 1,000 mg tablet 1,000 mg PO BIDM 06/05/20 04/10/23 metoprolol succinate 50 mg 50 mg PO QAM 06/05/20 04/10/23 tablet,extended release 24 hr venlafaxine 150 mg 150 mg PO HS 06/05/20 04/10/23 capsule,extended release 24 hr (Effexor XR) omeprazole 20 mg capsule,delayed 20 mg PO DAILY 10/13/20 04/10/23 release tramadol 50 mg tablet 50 mg PO Q6H PRN Pain 10/27/20 04/10/23 acyclovir 800 mg tablet 800 mg PO BID 04/05/23 04/10/23 atorvastatin 40 mg tablet 40 mg PO DAILY 04/05/23 04/10/23 levothyroxine 75 mcg tablet 75 mcg PO DAILY 04/05/23 04/10/23 mirabegron 50 mg tablet,extended 50 mg PO DAILY 04/05/23 04/10/23 release 24 hr (Myrbetriq) solifenacin 5 mg tablet 5 mg PO DAILY 04/05/23 04/10/23 Previous Rx's Medication Instructions Recorded acetaminophen 325 mg tablet 650 mg PO Q4H PRN fever or pain 04/08/23 #30 tabs amoxicillin 875 mg-potassium 1 tab PO BID 10 days #20 tabs 04/08/23 clavulanate 125 mg tablet Results & Data (ED) Vital Signs Vital Signs - 24 hr 04/10/23 06:04 04/10/23 06:04 04/10/23 06:26 Temperature 36.8 C Temperature Source Oral Pulse Rate 77 79 Pulse Rate from SpO2 Sensor Respiratory Rate 14 Respiratory Effort / Characteristics Non-Labored Non-Labored Respiratory Depth Normal Normal Blood Pressure 141/69 H Blood Pressure Mean 93 Pulse Oximetry 98 Oxygen Delivery Method Room Air Sepsis Recent Fever Within 48 Hours No Sepsis New/Unexplained Change in Mental Status No Sepsis Action Taken by Nursing No Action Required 04/10/23 06:24 04/10/23 06:30 04/10/23 07:34 Temperature Temperature Source Pulse Rate 78 73 75 Pulse Rate from SpO2 Sensor 78 72 76 Respiratory Rate 17 19 12 Respiratory Effort / Characteristics Respiratory Depth Blood Pressure Blood Pressure Mean Pulse Oximetry 98 98 96 Oxygen Delivery Method Sepsis Recent Fever Within 48 Hours Sepsis New/Unexplained Change in Mental Status Sepsis Action Taken by Nursing 04/10/23 07:35 04/10/23 07:35 04/10/23 08:00 Temperature Temperature Source Pulse Rate 74 Pulse Rate from SpO2 Sensor 73 Respiratory Rate 14 Respiratory Effort / Characteristics Respiratory Depth Blood Pressure 123/66 134/78 Blood Pressure Mean 85 96 Pulse Oximetry 100 Oxygen Delivery Method Sepsis Recent Fever Within 48 Hours Sepsis New/Unexplained Change in Mental Status Sepsis Action Taken by Nursing 04/10/23 08:00 04/10/23 08:30 04/10/23 08:30 Temperature Temperature Source Pulse Rate 74 79 Pulse Rate from SpO2 Sensor 80 Respiratory Rate 15 16 Respiratory Effort / Characteristics Respiratory Depth Blood Pressure 141/68 H Blood Pressure Mean 92 Pulse Oximetry 94 Oxygen Delivery Method Sepsis Recent Fever Within 48 Hours Sepsis New/Unexplained Change in Mental Status Sepsis Action Taken by Nursing Laboratory Data 04/10/23 06:30 04/10/23 06:30 Lab Results 04/10/23 04/10/23 04/10/23 Range/Units 06:30 06:30 06:30 WBC 4.83 (4.8-10.8) K/ul RBC 2.21 L (4.20-5.40) M/uL Hgb 8.4 L (12.0-16.0) g/dl Hct 24.5 L (37.0-47.0) % MCV 110.9 H (80.0-100.0) fL MCH 38.0 H (25.0-34.0) pg MCHC 34.3 (32.0-36.0) g/dL RDW Std Deviation 52.2 H (36.4-46.3) fL RDW Coeff of Evin 13.1 (11.5-14.5) % Plt Count 24 L* (130-400) K/uL MPV 9.7 (9.4-12.4) fL Neutrophils % (Manual) 81 % Lymphocytes % (Manual) 13 % Monocytes % (Manual) 2 % Eosinophils % (Manual) 2 % Basophils % (Manual) 2 % Blast Cells % (Manual) 1 % Neutrophils # (Manual) 3.91 (1.40-6.50) K/uL Total Absolute Neuts 3.91 (1.4-6.5) K/uL Lymphocytes # (Manual) 0.63 L (1.2-3.4) K/uL Total Abs Lymphocytes 0.63 L (1.2-3.4) K/uL Monocytes # (Manual) 0.10 L (0.11-0.59) K/uL Eosinophils # (Manual) 0.10 (0-0.50) K/uL Basophils # (Manual) 0.10 (0-0.2) K/uL Blast Cells # (Man) 0.05 H (0-0) K/uL Hypogranular Neuts 1+ Dohle Bodies 1+ Anisocytosis Present Sodium 138 (136-145) mmol/L Potassium 4.0 (3.5-5.1) mmol/L Chloride 104 (98-107) mmol/L Carbon Dioxide 27 (21-32) mmol/L Anion Gap 7 (3-11) BUN 15 (6-23) mg/dl Creatinine 0.93 (0.6-1.2) mg/dl Est Cr Clr Drug Dosing 56.5 ml/min Est GFR ( Amer) 70.2 ml/min Est GFR (Non-Af Amer) 60.5 ml/min BUN/Creatinine Ratio 16.1 (10-20) Glucose 172 H (70-99(Fasting)) mg/dl Calcium 8.7 (8.6-10.3) mg/dl Magnesium 1.3 L (1.7-2.4) mg/dl Total Bilirubin 0.4 (0.2-1.0) mg/dl Direct Bilirubin 0.1 (0-0.2) mg/dl AST 19 (13-39) U/L ALT 22 (7-52) U/L Alkaline Phosphatase 66 (34-104) U/L Troponin I High Sens 4.7 (0-14) pg/ml Total Protein 7.7 (6.0-8.3) gm/dl Albumin 3.3 L (3.4-5.0) gm/dl Procalcitonin 0.54 H (0-0.5) ng/ml SARS-CoV-2, RNA, NAAT (NEGATIVE) 04/10/23 Range/Units 07:46 WBC (4.8-10.8) K/ul RBC (4.20-5.40) M/uL Hgb (12.0-16.0) g/dl Hct (37.0-47.0) % MCV (80.0-100.0) fL MCH (25.0-34.0) pg MCHC (32.0-36.0) g/dL RDW Std Deviation (36.4-46.3) fL RDW Coeff of Evin (11.5-14.5) % Plt Count (130-400) K/uL MPV (9.4-12.4) fL Neutrophils % (Manual) % Lymphocytes % (Manual) % Monocytes % (Manual) % Eosinophils % (Manual) % Basophils % (Manual) % Blast Cells % (Manual) % Neutrophils # (Manual) (1.40-6.50) K/uL Total Absolute Neuts (1.4-6.5) K/uL Lymphocytes # (Manual) (1.2-3.4) K/uL Total Abs Lymphocytes (1.2-3.4) K/uL Monocytes # (Manual) (0.11-0.59) K/uL Eosinophils # (Manual) (0-0.50) K/uL Basophils # (Manual) (0-0.2) K/uL Blast Cells # (Man) (0-0) K/uL Hypogranular Neuts Dohle Bodies Anisocytosis Sodium (136-145) mmol/L Potassium (3.5-5.1) mmol/L Chloride (98-107) mmol/L Carbon Dioxide (21-32) mmol/L Anion Gap (3-11) BUN (6-23) mg/dl Creatinine (0.6-1.2) mg/dl Est Cr Clr Drug Dosing ml/min Est GFR ( Amer) ml/min Est GFR (Non-Af Amer) ml/min BUN/Creatinine Ratio (10-20) Glucose (70-99(Fasting)) mg/dl Calcium (8.6-10.3) mg/dl Magnesium (1.7-2.4) mg/dl Total Bilirubin (0.2-1.0) mg/dl Direct Bilirubin (0-0.2) mg/dl AST (13-39) U/L ALT (7-52) U/L Alkaline Phosphatase (34-104) U/L Troponin I High Sens (0-14) pg/ml Total Protein (6.0-8.3) gm/dl Albumin (3.4-5.0) gm/dl Procalcitonin (0-0.5) ng/ml SARS-CoV-2, RNA, NAAT NEGATIVE (NEGATIVE) Administered Medications Acyclovir (Acyclovir 400 Mg Tab) 800 mg PO BID [facility] Stop: 05/10/23 10:29 Last Admin: 04/10/23 11:01 Dose: 800 mg Documented By: MARY Atorvastatin Calcium (Atorvastatin 40 Mg Tab) 40 mg PO DAILY [facility] Stop: 05/10/23 10:06 Last Admin: 04/10/23 11:03 Dose: 40 mg Documented By: MARY Ceftriaxone Sodium 2,000 mg/ (Dextrose) 70 mls @ 100 mls/hr IV Q24H [facility]; Protocol Stop: 04/24/23 10:59 Last Admin: 04/10/23 11:03 Dose: 100 mls/hr Documented By: MARY Insulin Glargine (Lantus Per Unit Charge) 15 units SQ BID [facility]; Protocol Stop: 05/10/23 10:59 Last Admin: 04/10/23 11:11 Dose: 15 units Documented By: MARY Co-signed By: YARELY Isosorbide Mononitrate (Isosorbide [place] Extended Rel 30 Mg Tabcr) [facility] [place] Stop: 05/10/23 10:06 Last Admin: 04/10/23 11:02 Dose: 30 mg Documented By: MARY Levothyroxine Sodium (Levothyroxine Sodium 75 Mcg Tablet) 75 mcg PO DAILYPSYCHIATRIC Stop: 05/10/23 10:06 Last Admin: 04/10/23 11:03 Dose: 75 mcg Documented By: MARY Metoprolol Succinate (Metoprolol Succ 50mg Ext Rel Tab) 50 mg PO [facility] Stop: 05/10/23 10:06 Last Admin: 04/10/23 11:02 Dose: 50 mg Documented By: MARY Ondansetron HCl (Ondansetron Inj 2 Mg/Ml 2 Ml Vial) 4 mg IV Q6H PRN PRN Reason: Nausea And Vomiting Stop: 05/10/23 11:39 Last Admin: 04/10/23 11:53 Dose: 4 mg Documented By: MARY Oxybutynin Chloride (Oxybutynin Chloride Xl 5 Mg Tabcr) 5 mg PO DAILY [facility] Stop: 05/10/23 10:29 Last Admin: 04/10/23 11:01 Dose: 5 mg Documented By: MARY Pantoprazole Sodium (Pantoprazole 40 Mg Tab) 40 mg PO DAILY [facility] Stop: 05/10/23 10:29 Last Admin: 04/10/23 11:00 Dose: 40 mg Documented By: MARY Polyethylene Glycol (Polyethylene (Miralax) 17 Gm Pack) 17 gm PO DAILY [facility] Stop: 05/10/23 10:14 Last Admin: 04/10/23 11:03 Dose: 17 gm Documented By: MARY Vibegron (Vibegron 75 Mg Tab) 75 mg PO DAILY [facility]; Protocol Stop: 05/10/23 10:29 Last Admin: 04/10/23 11:01 Dose: 75 mg Documented By: MARY Vitamin D (Cholecalciferol 5,000 Units 125 Mcg Tab) 5,000 units PO QAM [facility] Stop: 05/10/23 10:06 Last Admin: 04/10/23 11:02 Dose: 5,000 units Documented By: MARY Discontinued Medications Sodium Chloride (Nss) 500 mls @ 999 mls/hr IV .Q31M ONE Stop: 04/10/23 06:55 Last Infusion: 04/10/23 06:59 Dose: 0 mls/hr Documented By: Admin: 04/10/23 06:27 Dose: 999 mls/hr Documented By: [place] Magnesium Sulfate/Dextrose (Magnesium Sulfate / D5w) 1 gm in 100 mls @ 100 mls/hr IV NOW STA Stop: 04/10/23 08:39 Last Infusion: 04/10/23 09:27 Dose: 0 mls/hr Documented By: Admin: 04/10/23 07:58 Dose: 100 mls/hr Documented By: BRENNON Acetaminophen (Ofirmev) 1,000 mg in 100 mls @ 400 mls/hr IV NOW STA Stop: 04/10/23 08:04 Last Infusion: 04/10/23 08:24 Dose: 0 mls/hr Documented By: Admin: 04/10/23 07:58 Dose: 400 mls/hr Documented By: BRENNON Magnesium Hydroxide (Magnesium Hydroxide Susp 30 Ml Udc) 30 ml PO NOW ONE Stop: 04/10/23 10:16 Last Admin: 04/10/23 11:11 Dose: 30 ml Documented By: MARY Imaging Data Radiologist's Impression: Cervical Spine CT 04/10/23 06:25 CT cervical spine wo con CT DOSE: 1015.99 mGy.cm CLINICAL HISTORY: 72 years-old Female with fall with head injury, confusion. Acute neck injury status post fall COMPARISON: Head CT of same day TECHNIQUE: Multiple axial CT images of the cervical spine were obtained without contrast. A dose lowering technique was utilized adhering to the principles of ALARA. FINDINGS: Straightening of the normal cervical lordosis with multilevel degenerative changes. Grade 1 anterolisthesis C7 on T1 is likely degenerative. Right-sided cervical rib. The cervical soft tissues appear unremarkable. Carotid calcifications. Partially imaged right IJ catheter. The visualized lung apices appear clear. IMPRESSION: No acute cervical spine fracture or subluxation identified. ACT 112: Negative or not required by law. The above report was generated using voice recognition software. It may contain grammatical, syntax or spelling errors. Electronically signed by: Mustapha Galvin M.D. 04/10/2023 8:[address] 04/10/23 06:25 CT head/brain wo con CLINICAL HISTORY: 72 years-old Female with fall, head injury. Acute head injury status post fall TECHNIQUE: Multiple axial CT images of the head were obtained without contrast. A dose lowering technique was utilized adhering to the principles of ALARA. COMPARISON: Head CT 04/04/2023, CT cervical spine 04/10/2023. FINDINGS: No acute intracranial hemorrhage, midline shift, intra-axial mass, hydrocephalus, territorial ischemia or abnormal extra-axial collection. Involutional changes with chronic microvascular ischemic disease. Unchanged 1.1 cm calcification within the right middle cranial fossa suggestive of a meningioma. The calvarium is intact. Trace mastoid effusions. The paranasal sinuses are generally clear. IMPRESSION: No acute intracranial abnormality. ACT 112: Negative or not required by law. The above report was generated using voice recognition software. It may contain grammatical, syntax or spelling errors. Electronically signed by: Mustapha Galvin M.D. 04/10/2023 8:16 AM Hip/Pelvis X-Ray 04/10/23 06:25 XR hip RT 2V w pelvis HISTORY: 72 years-old Female right hip pain s/p fall acute right-sided hip pain status post fall COMPARISON: CT abdomen and pelvis 04/04/2023 TECHNIQUE: AP view of the pelvis with 2 views of the right hip FINDINGS: [id number] osteoarthritis of the hips. Moderate degeneration of the pubic symphysis and SI joints. Demineralized appearance of the bones. No acute displaced fracture, dislocation or avascular necrosis. Ill-defined lucencies with cortical irregularity noted involving the greater tuberosity. Arterial c alcifications. Partially imaged lumbar spinal fusion hardware with discectomy changes. IMPRESSION: Subtle cortical irregularity with linear lucencies within the greater tuberosity. Correlation with CT recommended to exclude an acute greater trochanteric versus intertrochanteric fracture. ACT 112: Negative or not required by law. The above report was generated using voice recognition software. It may contain grammatical, syntax or spelling errors. Electronically signed by: Mustapha Galvin M.D. 04/10/2023 8:05 AM Chest X-Ray 04/10/23 06:26 XR chest 1V portable HISTORY: 72 years-old Female weakness, fatigue acute weakness with fatigue COMPARISON: Chest radiograph 04/04/2023 TECHNIQUE: AP view of the chest FINDINGS: Cardiac silhouette is enlarged. Right IJ [id number] catheter is partially imaged. Atherosclerosis of the aorta. No pneumothorax, pleural effusion, airspace consolidation or pulmonary edema. Degenerative changes of the shoulders and spine. Cholecystectomy. Partially imaged lumbar spinal fusion hardware. IMPRESSION: No acute process. ACT 112: Negative or not required by law. The above report was generated using voice recognition software. It may contain grammatical, syntax or spelling errors. Electronically signed by: Mustapha Galvin M.D. 04/10/2023 8:[address] 04/10/23 08:28 CT hip RT wo con HISTORY: 72 years-old Female fall, right hip injury acute right hip pain status post fall COMPARISON: Hip radiographs of same day TECHNIQUE: Multiple axial CT images of the right hip were obtained without the use of IV contrast. A dose lowering technique was used consistent with the principals of ALARA. FINDINGS: There is an acute and comminuted greater trochanteric fracture demonstrating 2 cm displacement. There is no definite intratrochanteric fracture extension identified. Mild to moderate osteoarthritis of the right femoral acetabular joint. No additional acute fracture, dislocation or avascular necrosis. There is severe degeneration of the pubic symphysis. Arterial calcifications. Mild subcutaneous edema lateral to the right hip. Moderately distended urinary bladder. IMPRESSION: 1. Confirmation of the acute, comminuted and displaced greater trochanteric fracture. No definite intertrochanteric fracture extension identified. 2. No dislocation. ACT 112: Negative or not required by law. The above report was generated using voice recognition software. It may contain grammatical, syntax or spelling errors. Electronically signed by: Mustapha Galvin M.D. 04/10/2023 9:36 AM Discharge Plan Visit Data Chief Complaint: Fall Stated Complaint: FALL/HIT HEAD/HIP PAIN ED Provider: Melisa,Chinmay F Discharge Problem: Generalized weakness, Hypomagnesemia, Closed fracture of right hip Patient Disposition: Admitted As Inpatient Discharge Instructions Interventions: ED Discharge Assessment Last Done: 04/10/23 09:41
[2023-04-10 06:49] LABS: Hematocrit (blood only) 24.5 % (37.0-47.0); Hemoglobin 8.4 g/dl (12.0-16.0); Mean Corpuscular Hgb Conc 34.3 g/dL (32.0-36.0); Mean Corpuscular Volume 110.9 fL (80.0-100.0); Mean Platelet Volume 9.7 fL (9.4-12.4); Platelet Count 24 K/uL (130-400); RDW Coefficient of Variation 13.1 % (11.5-14.5); RDW Standard Deviation 52.2 fL (36.4-46.3); Red Blood Count 2.21 M/uL (4.20-5.40); White Blood Count 4.83 K/ul (4.8-10.8)
[2023-04-10 06:57] LABS: Albumin Level 3.3 gm/dl (3.4-5.0); BUN Creatinine Ratio 16.1 (10-20); Bilirubin Direct 0.1 mg/dl (0-0.2); Bilirubin,Total 0.4 mg/dl (0.2-1.0); Calcium 8.7 mg/dl (8.6-10.3); Creatinine Clr Calc Pharmacy 56.5 ml/min; Est GFR (African American) 70.2 ml/min; Est GFR (Non-African American) 60.5 ml/min; Magnesium 1.3 mg/dl (1.7-2.4); Total Protein 7.7 gm/dl (6.0-8.3)
[2023-04-10 07:02] LABS: ALC (manual) 0.63 K/uL (1.2-3.4); ANC (manual) 3.91 K/uL (1.4-6.5); Anisocytosis Present; Basophils % (manual) 2 %; Blast # (manual) 0.05 K/uL (0-0); Blast Cells % (manual) 1 %; Dohle Bodies 1+; Eosinophils % (manual) 2 %; Hypogranular Neutrophils 1+; Lymphocytes # (manual) 0.63 K/uL (1.2-3.4); Lymphocytes % (manual) 13 %; Monocytes % (manual) 2 %; Neutrophils # (manual) 3.91 K/uL (1.40-6.50); Neutrophils % (manual) 81 %
[2023-04-10 07:03] LABS: Troponin I High Sensitivity 4.7 pg/ml (0-14)
[2023-04-10] MEDS ORDERED: MAGNESIUM SULFATE / D5W 1 GM/100 ML BAG IV STA (07:40)
[2023-04-10] MEDS ORDERED: ACETAMINOPHEN 1,000 MG/100 ML VIAL IV STA (07:50)
--- NOTE | 2023-04-10 08:04 | XRay Report ---
XR chest 1V portable HISTORY: 72 years-old Female weakness, fatigue acute weakness with fatigue COMPARISON: Chest radiograph 04/04/2023 TECHNIQUE: AP view of the chest FINDINGS: Cardiac silhouette is enlarged. Right IJ [id number] catheter is partially imaged. Atherosclerosis of the aorta. No pneumothorax, pleural effusion, airspace consolidation or pulmonary edema. Degenerat sabas changes of the shoulders and spine. Cholecystectomy. Partially imaged lumbar spinal fusion hardwa re. IMPRESSION: No acute process. ACT 112: Negative or not required by law. The above report was generated using voice recognition software. It may contain grammatical, syntax o r spelling errors. Electronically signed by: Mustapha Galvin M.D. 04/10/2023 8:02 AM
--- NOTE | 2023-04-10 08:08 | XRay Report ---
XR hip RT 2V w pelvis HISTORY: 72 years-old Female right hip pain s/p fall acute right-sided hip pain status post fall COMPARISON: CT abdomen and pelvis 04/04/2023 TECHNIQUE: AP view of the pelvis with 2 views of the right hip FINDINGS: [id number] osteoarthritis of the hips. Moderate degeneration of the pubic symphysis and SI join ts. Demineralized appearance of the bones. No acute displaced fracture, dislocation or avascular necr osis. Ill-defined lucencies with cortical irregularity noted involving the greater tuberosity. Arteri al calcifications. Partially imaged lumbar spinal fusion hardware with discectomy changes. IMPRESSION: Subtle cortical irregularity with linear lucencies within the greater tuberosity. Correla tion with CT recommended to exclude an acute greater trochanteric versus intertrochanteric fracture. ACT 112: Negative or not required by law. The above report was generated using voice recognition software. It may contain grammatical, syntax o r spelling errors. Electronically signed by: Mustapha Galvin M.D. 04/10/2023 8:05 AM
--- NOTE | 2023-04-10 08:19 | CT Scan Report ---
CT head/brain wo con CLINICAL HISTORY: 72 years-old Female with fall, head injury. Acute head injury status post fall TECHNIQUE: Multiple axial CT images of the head were obtained without contrast. A dose lowering tech nique was utilized adhering to the principles of ALARA. COMPARISON: Head CT 04/04/2023, CT cervical spine 04/10/2023. FINDINGS: No acute intracranial hemorrhage, midline shift, intra-axial mass, hydrocephalus, territorial ischemi a or abnormal extra-axial collection. Involutional changes with chronic microvascular ischemic diseas e. Unchanged 1.1 cm calcification within the right middle cranial fossa suggestive of a meningioma. The calvarium is intact. Trace mastoid effusions. The paranasal sinuses are generally clear. IMPRESSION: No acute intracranial abnormality. ACT 112: Negative or not required by law. The above report was generated using voice recognition software. It may contain grammatical, syntax o r spelling errors. Electronically signed by: Mutsapha Galvin M.D. 04/10/2023 8:16 AM
--- NOTE | 2023-04-10 08:22 | CT Scan Report ---
CT cervical spine wo con CT DOSE: 1015.99 mGy.cm CLINICAL HISTORY: 72 years-old Female with fall with head injury, confusion. Acute neck injury statu s post fall COMPARISON: Head CT of same day TECHNIQUE: Multiple axial CT images of the cervical spine were obtained without contrast. A dose low ering technique was utilized adhering to the principles of ALARA. FINDINGS: Straightening of the normal cervical lordosis with multilevel degenerative changes. Grade 1 anterolisthesis C7 on T1 is likely degenerative. Right-sided cervical rib. The cervical soft tissues appear unremarkable. Carotid calcifications. Partially imaged right IJ cath eter. The visualized lung apices appear clear. IMPRESSION: No acute cervical spine fracture or subluxation identified. ACT 112: Negative or not required by law. The above report was generated using voice recognition software. It may contain grammatical, syntax o r spelling errors. Electronically signed by: Mustapha Galvin M.D. 04/10/2023 8:20 AM
--- NOTE | 2023-04-10 09:38 | CT Scan Report ---
CT hip RT wo con HISTORY: 72 years-old Female fall, right hip injury acute right hip pain status post fall COMPARISON: Hip radiographs of same day TECHNIQUE: Multiple axial CT images of the right hip were obtained without the use of IV contrast. A dose lowering technique was used consistent with the principals of ALARA. FINDINGS: There is an acute and comminuted greater trochanteric fracture demonstrating 2 cm displacement. There is no definite intratrochanteric fracture extension identified. Mild to moderate osteoarthritis of t he right femoral acetabular joint. No additional acute fracture, dislocation or avascular necrosis. T here is severe degeneration of the pubic symphysis. Arterial calcifications. Mild subcutaneous edema lateral to the right hip. Moderately distended urina ry bladder. IMPRESSION: 1. Confirmation of the acute, comminuted and displaced greater trochanteric fracture. No definite int ertrochanteric fracture extension identified. 2. No dislocation. ACT 112: Negative or not required by law. The above report was generated using voice recognition software. It may contain grammatical, syntax o r spelling errors. Electronically signed by: Mustapha Galvin M.D. 04/10/2023 9:36 AM
[2023-04-10] MEDS ORDERED: CARBOHYDRATES FOR HYPOGLYCEMIA PO PRN (10:07)
[2023-04-10] MEDS ORDERED: GLUCAGON FOR INJ 1 MG VIAL SQ PRN (10:07)
[2023-04-10] MEDS ORDERED: PHARMACY GLYCEMIC MGMT CONSULT PRN (10:07)
[2023-04-10] MEDS ORDERED: DEXTROSE 50% 50 ML SYRINGE IV PRN (10:07)
[2023-04-10] MEDS ORDERED: GLUCOSE 10 TAB/TUBE PO PRN (10:07)
[2023-04-10] MEDS ORDERED: ACETAMINOPHEN 325 MG TAB PO PRN (10:07)
[2023-04-10] MEDS ORDERED: GLUCOSE 40% GEL 15 GM TUBE PO PRN (10:07)
[2023-04-10] MEDS ORDERED: POLYETHYLENE (MIRALAX) 17 GM PACK PO PRN (10:07)
[2023-04-10] MEDS ORDERED: MAGNESIUM HYDROXIDE SUSP 30 ML UDC PO ONE (10:15)
--- NOTE | 2023-04-10 10:50 | Electrocardiogram Report ---
Test Reason : Blood Pressure : / mmHG Vent. Rate : 077 BPM Atrial Rate : 077 BPM P-R Int : 152 ms QRS Dur : 078 ms QT Int : 394 ms P-R-T Axes : 025 048 048 degrees QTc Int : 445 ms Normal sinus rhythm Normal ECG When compared with ECG of 04-APR-2023 14:27, Anterolateral DC no longer present Confirmed by Jonathan Bey ([id number]) on 04/10/2023 10:50:42 AM Referred By: REFERRED SELF Confirmed By:Jonathan Bey
--- NOTE | 2023-04-10 10:53 | Communication Note ---
Date of Service: April 10, 2023 Isolated greater trochanter fracute on xray/CT. MRI ordered to evaluate for intertrochanteric extension, Pt to remain NWB and on bedrest pending MRI results. Formal consult to follow.
[2023-04-10] MEDS: PANTOprazole 40 MG TAB PO SCH (11:00)
--- NOTE | 2023-04-10 11:00 | Pharmacy Report ---
Pharmacy Glycemic Short Note 2 - Date of Service April 10, 2023 - Glycemic Short BSG Results (Last 24 hours): 04/10/23 06:30 Glucose 172 H OUTPATIENT ANTIDIABETIC REGIMEN: * Levemir 28 units BIDM? (potentially 20 units daily) * Novolin R with meals * Metformin 1 gm PO BID * HbA1C = 10.2% (04/05/23) ASSESSMENT: * 72 yo female, Type 2 DM, recent admission last week, s/p fall d/t lightheadedness, admitted with hip fracture. Pt known to glycemic service from last admission. * Will begin with similar insulin dosing as last week, with higher goal range and conservative titration to prevent hypoglycemia. PLAN FOR INPATIENT GLYCEMIC CONTROL: * Hold outpatient oral diabetes medications * Basal insulin * Lantus 15 units SQ BID * Bolus insulin * NovoLog per scale ACHS or Q6hrs while NPO * Goal Range: Low 120 mg/dL - High 150 mg/dL * Correction Factor: 25 mg/dL/unit * Nutritional / Prandial insulin per carb ratio of 1 unit per 10 grams CHO consumed
[2023-04-10] MEDS: VIBEGRON 75 MG TAB PO SCH (11:01)
[2023-04-10] MEDS: ACYCLOVIR 400 MG TAB PO SCH ×2 (11:01→20:30)
[2023-04-10] MEDS: OXYBUTYNIN CHLORIDE XL 5 MG TABCR PO SCH (11:01)
[2023-04-10] MEDS: METOPROLOL SUCC 50MG EXT REL TAB PO SCH (11:02)
[2023-04-10] MEDS: ISOSORBIDE MONO EXTENDED REL 30 MG TABCR PO SCH (11:02)
[2023-04-10] MEDS: CHOLECALCIFEROL 5,000 UNITS 125 MCG TAB PO SCH (11:02)
[2023-04-10] MEDS: LEVOTHYROXINE SODIUM 75 MCG TABLET PO SCH (11:03)
[2023-04-10] MEDS: ATORVASTATIN 40 MG TAB PO SCH (11:03)
[2023-04-10] MEDS: cefTRIAXone SODIUM 2,000 MG in DEXTROSE 5% 50 ML IV SCH (11:03)
[2023-04-10] MEDS: POLYETHYLENE (MIRALAX) 17 GM PACK PO SCH (11:03)
[2023-04-10] MEDS: LANTUS PER UNIT CHARGE SQ SCH ×2 (11:11→20:31)
[2023-04-10] MEDS ORDERED: ONDANSETRON INJ 2 MG/ML 2 ML VIAL IV PRN (11:40)
[2023-04-10] MEDS: INSULIN ASPART PER UNIT CHARGE SC SCH ×3 (12:21→20:31)
--- NOTE | 2023-04-10 14:29 | History & Physical Report ---
Date of Service April 10, 2023 Assessment & Plan (1) Closed fracture of right hip: (2) Generalized weakness: (3) Hypomagnesemia: Plan: Patient presents from home with mechanical fall. Recent admission from April 05 to April 08 for E. coli bacteremia. CT head, CT cervical spine negative for acute findings. Pelvic x-ray concerning for fracture. Hip CT shows confirmation of acute, comminuted and displaced greater trochanteric fracture. Discussed with orthopedics(Dr. Gaspar); recommends to obtain MRI to evaluate for intertrochanteric extension. Nonweightbearing for now on bedrest pending MRI results Pain control with Tylenol and tramadol (4) E coli bacteremia: Plan: Urine culture and blood culture from last admission consistent with E. coli which is pansensitive. Patient was discharged home on Augmentin. will restart back on ceftriaxone while patient is inpatient. Last dose of antibiotic to be on April 18 to complete 14-day course. Repeat blood cultures ordered (5) Myelodysplastic syndrome: (6) Thrombocytopenia: Plan: status post stem cell transplant in August 2021. recent biopsy shows recurrence of disease. Followup with Heme/Onc. Labs reviewed; noted to have macrocytic anemia and thrombocytopenia. Patient will require surgery; will discuss with oncology regarding transfusion of platelets. Plan Chronic conditions: Type 2 diabetes mellitus; started on Lantus 20 units twice daily and NovoLog. Pharmacy glycemic consult. History of hypothyroidism. Continue Synthroid. Hyperlipidemia. On statin. Continue Lipitor History of coronary artery disease. Continue statin, Imdur and metoprolol.. Hypertension. On metoprolol and imdur with holding parameters. Gastroesophageal reflux disease: On omeprazole. Deep venous thrombosis prophylaxis. Sequential compression devices as the patient has thrombocytopenia. Full code DVT prophylaxis SCDs. Patient has thrombocytopenia. Discussed with her daughter at bedside. She is a RN for [employer] at home services. Time spent evaluating patient, direct bedside care, chart review, placing orders, interpretation of diagnostic studies, discussion with consultants, patient, and family members, as well as other required patient management activities is 80 minutes. Please note the above document was generated using voice recognition software. It may contain grammatical, syntax or spelling errors. Any formal questions or concerns about the content, text or information contained within the body of this dictation should be directly addressed to the provider for clarification Admission and Anticipated Discharge Date Admission Date: April 10, 2023 History of Present Illness Chief Complaint: Mechanical fall Primary Care Provider: Dhruv Moss MD History obtained from interview with the patient, chart review. Past medical history significant for myelodysplastic syndrome status post stem cell transplant in August 2021. recent biopsy shows recurrence of disease. Other relevant historytype 2 diabetes, hypothyroidism, hyperlipidemia, history of iron overload, hypomagnesemia, dehydration, diabetic retinopathy, interstitial lung disease, hypertension, coronary artery disease, GERD Last confinement from April 05 to April 08 with E. coli bacteremia secondary to left-sided pyelonephritis. She was discharged on oral Augmentin to be taken for 10 more days. Patient presents from home with mechanical fall. Patient reports generalized weakness since discharge from the hospital. She reports falling down and hitting her head. Reports pain in her right hip. Denies vision changes, headache, fever, chills, chest pain, shortness of breath or abdominal pain. On presentation to the ED, patient was afebrile, normotensive and saturating well on room air. CBC was remarkable for macrocytic anemia, platelet count of 24,000 consistent with history of mild dysplastic syndrome. Hemoglobin is stable. Briefly rates are within normal limits. Magnesium is 1.3. CT head, CT cervical spine negative for acute findings. Pelvic x-ray concerning for fracture. Hip CT shows confirmation of acute, comminuted and displaced greater trochanteric fracture. Allergies Allergy/AdvReac Type Severity Reaction Status Date / Time No Known Allergies Allergy Verified 07/12/21 10:31 Home Medications Medication Instructions Recorded Confirmed Type cholecalciferol (vitamin D3) 125 125 mcg PO QAM 06/05/20 04/10/23 History mcg (5,000 unit) tablet (Vitamin D3) insulin detemir U-100 100 unit/mL 22 unit subcut HS 06/05/20 04/10/23 History subcutaneous solution (Levemir U-100 Insulin) insulin regular human 100 unit/mL 0 unit subcut .SLIDING SCALE 06/05/20 04/10/23 History (3 mL) subcutaneous pen (Novolin R FlexPen) isosorbide mononitrate 30 mg 30 mg PO QAM 06/05/20 04/10/23 History tablet,extended release 24 hr metformin 1,000 mg tablet 1,000 mg PO BIDM 06/05/20 04/10/23 History metoprolol succinate 50 mg 50 mg PO QAM 06/05/20 04/10/23 History tablet,extended release 24 hr venlafaxine 150 mg 150 mg PO HS 06/05/20 04/10/23 History capsule,extended release 24 hr (Effexor XR) omeprazole 20 mg capsule,delayed 20 mg PO DAILY 10/13/20 04/10/23 History release tramadol 50 mg tablet 50 mg PO Q6H PRN Pain 10/27/20 04/10/23 History acyclovir 800 mg tablet 800 mg PO BID 04/05/23 04/10/23 History atorvastatin 40 mg tablet 40 mg PO DAILY 04/05/23 04/10/23 History levothyroxine 75 mcg tablet 75 mcg PO DAILY 04/05/23 04/10/23 History mirabegron 50 mg tablet,extended 50 mg PO DAILY 04/05/23 04/10/23 History release 24 hr (Myrbetriq) solifenacin 5 mg tablet 5 mg PO DAILY 04/05/23 04/10/23 History acetaminophen 325 mg tablet 650 mg PO Q4H PRN fever or pain 04/08/23 04/10/23 Rx #30 tabs amoxicillin 875 mg-potassium 1 tab PO BID 10 days #20 tabs 04/08/23 04/10/23 Rx clavulanate 125 mg tablet Past Med/Surg History Medical History (Updated 04/10/23 @ 12:23 by Chinmay Vincent MD) CAD (coronary artery disease) 2017-EDIL to LAD Depression DM type 2 (diabetes mellitus, type 2) Dyslipidemia Hypertension Hypothyroidism Myelodysplastic syndrome Osteoarthritis Surgical History H/O dilation and curettage H/O tubal ligation History of cholecystectomy History of partial hysterectomy History of spinal fusion Family History Father Heart disease Mother Heart disease Sister Breast cancer Sister Multiple myeloma Brother Prostate cancer Social History Smoking Status: Never smoker Hx Alcohol Use: No Hx Substance Use: No Preferred Language: Burkinan Communication Ability: Effective Settlement Technician Required: No Beliefs That Will Affect Care: None Current Living Situation: Spouse Feels Safe at Home: Yes Assistive Devices: Walker Review of Systems Review of Systems: All systems reviewed & are unremarkable except as noted in Subjective Physical Exam Physical Exam: Constitutional: Alert oriented x3; not in any distress. Respiratory: normal respiratory effort, lungs clear to auscultation, no wheeze, rales, rhonchi. Normal insp/exp effort, no accessory muscle use Cardiovascular: RRR, no murmur, no edema Vessels: no JVD or carotid bruit Chest: normal inspection of chest Abdomen: normal bowel sounds, soft, nontender, no hepatosplenomegaly Musculoskeletal: ROM painful while moving right hip. No overlying bruising. Skin: no rashes, warm and dry normal turgor Neurologic: PERRL, EOMI, accommodation nl, no face palsy, no dysarthria CN's II- XI intact bilaterally and moves all extremities Psychiatric: A+Ox3, euthymic affect Results & Data Results & Data Vital Signs (Past 12 Hours) Vital Signs Temp Pulse Pulse Resp BP BP Pulse Ox 04/10/23 11:40 36.7 C 77 18 136/76 96 04/10/23 10:12 04/10/23 09:56 36.6 C 79 18 130/67 98 04/10/23 09:07 75 19 95 04/10/23 08:30 79 16 94 04/10/23 08:30 141/68 H 04/10/23 08:00 74 15 04/10/23 08:00 134/78 04/10/23 07:35 74 14 100 04/10/23 07:35 123/66 04/10/23 07:34 75 12 96 04/10/23 06:30 73 19 98 04/10/23 06:24 78 17 98 04/10/23 06:26 79 04/10/23 06:04 36.8 C 77 14 141/69 H 98 O2 Del Method 04/10/23 11:40 Room Air 04/10/23 10:12 Room Air 04/10/23 09:56 Room Air 04/10/23 09:07 04/10/23 08:30 04/10/23 08:30 04/10/23 08:00 04/10/23 08:00 04/10/23 07:35 04/10/23 07:35 04/10/23 07:34 04/10/23 06:30 04/10/23 06:24 04/10/23 06:26 04/10/23 06:04 Room Air Laboratory Results Laboratory Results WBC 4.83 K/ul (4.8-10.8) 04/10/23 06:30 RBC 2.21 M/uL (4.20-5.40) L 04/10/23 06:30 Hgb 8.4 g/dl (12.0-16.0) L 04/10/23 06:30 Hct 24.5 % (37.0-47.0) L 04/10/23 06:30 MCV 110.9 fL (80.0-100.0) H 04/10/23 06:30 MCH 38.0 pg (25.0-34.0) H 04/10/23 06:30 MCHC 34.3 g/dL (32.0-36.0) 04/10/23 06:30 RDW Std Deviation 52.2 fL (36.4-46.3) H 04/10/23 06:30 RDW Coeff of Evin 13.1 % (11.5-14.5) 04/10/23 06:30 Plt Count 24 K/uL (130-400) L* 04/10/23 06:30 MPV 9.7 fL (9.4-12.4) 04/10/23 06:30 Neutrophils % (Manual) 81 % 04/10/23 06:30 Lymphocytes % (Manual) 13 % 04/10/23 06:30 Monocytes % (Manual) 2 % 04/10/23 06:30 Eosinophils % (Manual) 2 % 04/10/23 06:30 Basophils % (Manual) 2 % 04/10/23 06:30 Blast Cells % (Manual) 1 % 04/10/23 06:30 Neutrophils # (Manual) 3.91 K/uL (1.40-6.50) 04/10/23 06:30 Total Absolute Neuts 3.91 K/uL (1.4-6.5) 04/10/23 06:30 Lymphocytes # (Manual) 0.63 K/uL (1.2-3.4) L 04/10/23 06:30 Total Abs Lymphocytes 0.63 K/uL (1.2-3.4) L 04/10/23 06:30 Monocytes # (Manual) 0.10 K/uL (0.11-0.59) L 04/10/23 06:30 Eosinophils # (Manual) 0.10 K/uL (0-0.50) 04/10/23 06:30 Basophils # (Manual) 0.10 K/uL (0-0.2) 04/10/23 06:30 Blast Cells # (Man) 0.05 K/uL (0-0) H 04/10/23 06:30 Hypogranular Neuts 1+ 04/10/23 06:30 Dohle Bodies 1+ 04/10/23 06:30 Anisocytosis Present 04/10/23 06:30 Sodium 138 mmol/L (136-145) 04/10/23 06:30 Potassium 4.0 mmol/L (3.5-5.1) 04/10/23 06:30 Chloride 104 mmol/L (98-107) 04/10/23 06:30 Carbon Dioxide 27 mmol/L (21-32) 04/10/23 06:30 Anion Gap 7 (3-11) 04/10/23 06:30 BUN 15 mg/dl (6-23) 04/10/23 06:30 Creatinine 0.93 mg/dl (0.6-1.2) 04/10/23 06:30 Est Cr Clr Drug Dosing 56.5 ml/min 04/10/23 06:30 Est GFR ( Amer) 70.2 ml/min 04/10/23 06:30 Est GFR (Non-Af Amer) 60.5 ml/min 04/10/23 06:30 BUN/Creatinine Ratio 16.1 (10-20) 04/10/23 06:30 Glucose 172 mg/dl (70-99(Fasting)) H 04/10/23 06:30 POC Glucose 212 mg/dl (70-99) H 04/10/23 11:54 Calcium 8.7 mg/dl (8.6-10.3) 04/10/23 06:30 Magnesium 1.3 mg/dl (1.7-2.4) L 04/10/23 06:30 Total Bilirubin 0.4 mg/dl (0.2-1.0) 04/10/23 06:30 Direct Bilirubin 0.1 mg/dl (0-0.2) 04/10/23 06:30 AST 19 U/L (13-39) 04/10/23 06:30 ALT 22 U/L (7-52) 04/10/23 06:30 Alkaline Phosphatase 66 U/L (34-104) 04/10/23 06:30 Troponin I High Sens 4.7 pg/ml (0-14) 04/10/23 06:30 Total Protein 7.7 gm/dl (6.0-8.3) 04/10/23 06:30 Albumin 3.3 gm/dl (3.4-5.0) L 04/10/23 06:30 Procalcitonin 0.54 ng/ml (0-0.5) H 04/10/23 06:30 SARS-CoV-2, RNA, NAAT NEGATIVE (NEGATIVE) 04/10/23 07:[address] 04/10/23 06:25 CT cervical spine wo con CT DOSE: 1015.99 mGy.cm CLINICAL HISTORY: 72 years-old Female with fall with head injury, confusion. Acute neck injury status post fall COMPARISON: Head CT of same day TECHNIQUE: Multiple axial CT images of the cervical spine were obtained without contrast. A dose lowering technique was utilized adhering to the principles of ALARA. FINDINGS: Straightening of the normal cervical lordosis with multilevel degenerative changes. Grade 1 anterolisthesis C7 on T1 is likely degenerative. Right-sided cervical rib. The cervical soft tissues appear unremarkable. Carotid calcifications. Partially imaged right IJ catheter. The visualized lung apices appear clear. IMPRESSION: No acute cervical spine fracture or subluxation identified. ACT 112: Negative or not required by law. The above report was generated using voice recognition software. It may contain grammatical, syntax or spelling errors. Electronically signed by: Mustapha Galvin M.D. 04/10/2023 8:[address] 04/10/23 06:25 CT head/brain wo con CLINICAL HISTORY: 72 years-old Female with fall, head injury. Acute head injury status post fall TECHNIQUE: Multiple axial CT images of the head were obtained without contrast. A dose lowering technique was utilized adhering to the principles of ALARA. COMPARISON: Head CT 04/04/2023, CT cervical spine 04/10/2023. FINDINGS: No acute intracranial hemorrhage, midline shift, intra-axial mass, hydrocephalus, territorial ischemia or abnormal extra-axial collection. Involutional changes with chronic microvascular ischemic disease. Unchanged 1.1 cm calcification within the right middle cranial fossa suggestive of a meningioma. The calvarium is intact. Trace mastoid effusions. The paranasal sinuses are generally clear. IMPRESSION: No acute intracranial abnormality. ACT 112: Negative or not required by law. The above report was generated using voice recognition software. It may contain grammatical, syntax or spelling errors. Electronically signed by: Mustapha Galvin M.D. 04/10/2023 8:16 AM Hip/Pelvis X-Ray 04/10/23 06:25 XR hip RT 2V w pelvis HISTORY: 72 years-old Female right hip pain s/p fall acute right-sided hip pain status post fall COMPARISON: CT abdomen and pelvis 04/04/2023 TECHNIQUE: AP view of the pelvis with 2 views of the right hip FINDINGS: [id number] osteoarthritis of the hips. Moderate degeneration of the pubic symphysis and SI joints. Demineralized appearance of the bones. No acute displaced fracture, dislocation or avascular necrosis. Ill-defined lucencies with cortical irregularity noted involving the greater tuberosity. Arterial calcifications. Partially imaged lumbar spinal fusion hardware with discectomy changes. IMPRESSION: Subtle cortical irregularity with linear lucencies within the greater tuberosity. Correlation with CT recommended to exclude an acute greater trochanteric versus intertrochanteric fracture. ACT 112: Negative or not required by law. The above report was generated using voice recognition software. It may contain grammatical, syntax or spelling errors. Electronically signed by: Mustapha Galvin M.D. 04/10/2023 8:05 AM Chest X-Ray 04/10/23 06:26 XR chest 1V portable HISTORY: 72 years-old Female weakness, fatigue acute weakness with fatigue COMPARISON: Chest radiograph 04/04/2023 TECHNIQUE: AP view of the chest FINDINGS: Cardiac silhouette is enlarged. Right IJ [id number] catheter is partially imaged. Atherosclerosis of the aorta. No pneumothorax, pleural effusion, airspace consolidation or pulmonary edema. Degenerative changes of the shoulders and spine. Cholecystectomy. Partially imaged lumbar spinal fusion hardware. IMPRESSION: No acute process. ACT 112: Negative or not required by law. The above report was generated using voice recognition software. It may contain grammatical, syntax or spelling errors. Electronically signed by: Mustapha Galvin M.D. 04/10/2023 8:[address] 04/10/23 08:28 CT hip RT wo con HISTORY: 72 years-old Female fall, right hip injury acute right hip pain status post fall COMPARISON: Hip radiographs of same day TECHNIQUE: Multiple axial CT images of the right hip were obtained without the use of IV contrast. A dose lowering technique was used consistent with the principals of ALARA. FINDINGS: There is an acute and comminuted greater trochanteric fracture demonstrating 2 cm displacement. There is no definite intratrochanteric fracture extension identified. Mild to moderate osteoarthritis of the right femoral acetabular joint. No additional acute fracture, dislocation or avascular necrosis. There is severe degeneration of the pubic symphysis. Arterial calcifications. Mild subcutaneous edema lateral to the right hip. Moderately distended urinary bladder. IMPRESSION: 1. Confirmation of the acute, comminuted and displaced greater trochanteric fracture. No definite intertrochanteric fracture extension identified. 2. No dislocation. ACT 112: Negative or not required by law. The above report was generated using voice recognition software. It may contain grammatical, syntax or spelling errors. Electronically signed by: Mustapha Galvin M.D. 04/10/2023 9:36 AM Code Status & VTE Plan VTE Prophylaxis Plan VTE Prophylaxis will be ordered: No (1) Closed fracture of right hip Encounter type: initial encounter Qualified Code(s): S72.001A - Fracture of unspecified part of neck of right femur, initial encounter for closed fracture
[2023-04-10 14:40] LABS: Appearance Urine Clear (Clear); Bacteria Urine Automated Negative (Negative); Bilirubin Urine Negative (Negative); Blood Urine 1+ (Negative); Color Urine Yellow; Epithelial Cell Urine Auto 20-30 /lpf (0-5); Glucose Urine UA Negative (Negative); Ketones Urine Negative (Negative); Leukocyte Esterase Urine Trace (Negative); Nitrite Urine Negative (Negative); Protein Urine 1+ (Negative); RBC Urine Automated 0-4 /hpf (0-4); Specific Gravity Urine 1.013 (1.000-1.030); Urobilinogen Urine Negative (Negative)
[2023-04-10] MEDS: traMADol HCL 50 MG TABLET PO PRN (20:30)
[2023-04-10] MEDS: VENLAFAXINE HCL XR 150 MG CAPXR PO SCH (20:30)
[2023-04-11] MEDS: LEVOTHYROXINE SODIUM 75 MCG TABLET PO SCH (05:48)
[2023-04-11] MEDS ORDERED: LANTUS PER UNIT CHARGE SC SCH (09:00)
[2023-04-11] MEDS: PANTOprazole 40 MG TAB PO SCH (09:40)
[2023-04-11] MEDS: ACYCLOVIR 400 MG TAB PO SCH ×2 (09:40→20:08)
[2023-04-11] MEDS: ATORVASTATIN 40 MG TAB PO SCH (09:40)
[2023-04-11] MEDS: OXYBUTYNIN CHLORIDE XL 5 MG TABCR PO SCH (09:40)
[2023-04-11] MEDS: METOPROLOL SUCC 50MG EXT REL TAB PO SCH (09:41)
[2023-04-11] MEDS: CHOLECALCIFEROL 5,000 UNITS 125 MCG TAB PO SCH (09:41)
[2023-04-11] MEDS: ISOSORBIDE MONO EXTENDED REL 30 MG TABCR PO SCH (09:41)
[2023-04-11] MEDS: VIBEGRON 75 MG TAB PO SCH (09:41)
[2023-04-11] MEDS: POLYETHYLENE (MIRALAX) 17 GM PACK PO SCH (09:42)
--- NOTE | 2023-04-11 10:00 | Magnetic Resonance Report ---
MRI of the right hip without contrast CLINICAL HISTORY: trochanter fracture COMPARISON STUDY: Pelvis and right hip radiographs and CT of the right hip April 10, 2023. TECHNIQUE: Utilizing a 1.5 Latasha magnet and dedicated coil, multiplanar, multi echo imaging of the ri [facility] hip was performed without intra-articular or intravenous contrast. FINDINGS: Note is again made of an acute displaced fracture of the greater trochanter of the right fe mur, as shown on CT. In addition, there is an intertrochanteric component of the fracture which nearl y extends to the lesser trochanter. This is not evident by CT. No additional acute fractures are pres ent. No suspicious marrow replacement. No evidence for avascular necrosis. Soft tissue edema adjacent to the right hip is present. A Aguirre balloon within the bladder is incidentally noted. Sacroiliac isabel ints and symphysis pubis are incidentally noted. A moderate amount of stool within the distal colon a nd rectum is present. IMPRESSION: Acute intertrochanteric fracture of the right femur, as described above. Displaced fractu re involving the greater trochanter with a nondisplaced intertrochanteric component which nearly exte nds to the lesser trochanter. ACT 112: Negative or not required by law. Electronically signed by: Aureliano Najera M.D. 04/11/2023 9:59 AM
[2023-04-11] MEDS: INSULIN ASPART PER UNIT CHARGE SC SCH ×4 (10:11→20:17)
--- NOTE | 2023-04-11 10:20 | Orthopedic Consultation ---
Date of Consultation April 11, 2023 Assessment & Plan (1) Intertrochanteric fracture of right hip: Nondisplaced intertrochanteric right hip fracture noted on MRI. Results discussed with Dr. Gaspar. Patient will require a right trochanteric femoral nailing. Per Dr. Gaspar, patient's platelet status will have to improve prior to considering surgery. We will discuss with hospitalist service. I have discussed plan for treatment with the patient. She is in agreement for surgery. We also discussed her platelet situation of which she understands. History of Present Illness Reason for Consultation: Nondisplaced right intertrochanteric hip fracture Attending Physician: Sekou Reyna MD History of Present Illness 72-year-old female with past medical history of myelodysplastic syndrome status post stem cell transplant in August 2021. recent biopsy shows recurrence of disease. Other relevant historytype 2 diabetes, hypothyroidism, hyperlipidemia, history of iron overload, hypomagnesemia, dehydration, diabetic retinopathy, interstitial lung disease, hypertension, coronary artery disease, GERD. Patient states that she had been released from the hospital after having a E. coli bacteremia. She had been discharged on 04/08/2023. Patient states that she was at home and when she got up from her chair slowly, she felt like she was having a bit of lightheadedness. She felt that she was moving a bit to the right. This continued into a mechanical fall onto her right side. She denies loss of consciousness. There was no chest pain or shortness of breath prior to or after the fall. She had pain in her right hip and was having difficulty ambulating. She was brought to the emergency room and was seen by the staff. X-rays were taken and was found that she had what appeared to be a greater trochanter fracture of the right femur. CT scan confirmed this but there was question of a complete intertrochanteric hip fracture. MRI was ordered. Patient was admitted by the hospitalist service and we were asked to take care of her. MRI that was done this morning is showing a complete intertrochanteric hip fracture nondisplaced. Currently the patient is awake and alert and comfortable. Allergies Allergy/AdvReac Type Severity Reaction Status Date / Time No Known Allergies Allergy Verified 07/12/21 10:31 Home Medications Medication Instructions Recorded Confirmed Type cholecalciferol (vitamin D3) 125 125 mcg PO QAM 06/05/20 04/10/23 History mcg (5,000 unit) tablet (Vitamin D3) insulin detemir U-100 100 unit/mL 22 unit subcut HS 06/05/20 04/10/23 History subcutaneous solution (Levemir U-100 Insulin) insulin regular human 100 unit/mL 0 unit subcut .SLIDING SCALE 06/05/20 04/10/23 History (3 mL) subcutaneous pen (Novolin R FlexPen) isosorbide mononitrate 30 mg 30 mg PO QAM 06/05/20 04/10/23 History tablet,extended release 24 hr metformin 1,000 mg tablet 1,000 mg PO BIDM 06/05/20 04/10/23 History metoprolol succinate 50 mg 50 mg PO QAM 06/05/20 04/10/23 History tablet,extended release 24 hr venlafaxine 150 mg 150 mg PO HS 06/05/20 04/10/23 History capsule,extended release 24 hr (Effexor XR) omeprazole 20 mg capsule,delayed 20 mg PO DAILY 10/13/20 04/10/23 History release tramadol 50 mg tablet 50 mg PO Q6H PRN Pain 10/27/20 04/10/23 History acyclovir 800 mg tablet 800 mg PO BID 04/05/23 04/10/23 History atorvastatin 40 mg tablet 40 mg PO DAILY 04/05/23 04/10/23 History levothyroxine 75 mcg tablet 75 mcg PO DAILY 04/05/23 04/10/23 History mirabegron 50 mg tablet,extended 50 mg PO DAILY 04/05/23 04/10/23 History release 24 hr (Myrbetriq) solifenacin 5 mg tablet 5 mg PO DAILY 04/05/23 04/10/23 History acetaminophen 325 mg tablet 650 mg PO Q4H PRN fever or pain 04/08/23 04/10/23 Rx #30 tabs amoxicillin 875 mg-potassium 1 tab PO BID 10 days #20 tabs 04/08/23 04/10/23 Rx clavulanate 125 mg tablet Patient History Medical History CAD (coronary artery disease) 2017-EDIL to LAD Depression DM type 2 (diabetes mellitus, type 2) Dyslipidemia Hypertension Hypothyroidism Myelodysplastic syndrome Osteoarthritis Surgical History H/O dilation and curettage H/O tubal ligation History of cholecystectomy History of partial hysterectomy History of spinal fusion Family History Father Heart disease Mother Heart disease Sister Breast cancer Sister Multiple myeloma Brother Prostate cancer Social History Smoking Status: Never smoker Hx Alcohol Use: No Hx Substance Use: No Preferred Language: Liberian Communication Ability: Effective 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 She is alert and oriented x3. No acute distress. Pleasant cooperative. On examination of her right lower extremity compared to her left, it is shortened and mildly externally rotated. She has good range of motion of her right foot and ankle at this time. Her right knee is nontender on palpation and there is no noted effusion. Range of motion is deferred secondary to hip fracture. She has pain on the lateral aspect of her greater trochanter of the right hip. No range of motion is performed at this time secondary to fracture. Left lower extremity is benign at this time with some mild discomfort in her left tibia which shows no swelling or ecchymosis. Range of motion of left lower extremity appears to be within normal limits. Upper extremities are uninvolved at this time and she is mildly tender at the left shoulder of which she noted during her MRI this morning however she has good range of motion at this time without crepitus. She is nontender at the right shoulder. Nontender at the elbows and wrists. Range of motion is essentially within normal limits. Distal pulses are equal bilaterally of the upper lower extremities. There is no gross motor or sensory loss seen at this time. Results & Data Vital Signs (Past 12 Hours) Vital Signs Temp Pulse Pulse Resp BP BP Pulse Ox 04/11/23 07:49 37 C 79 18 112/62 93 04/11/23 07:00 82 04/11/23 03:00 37.1 C 81 18 128/65 94 04/10/23 22:56 103 H O2 Del Method 04/11/23 07:49 Room Air 04/11/23 07:00 04/11/23 03:00 Room Air 04/10/23 22:56 Diagnostic Findings Patient:KELIN TANG Admit Date:04/10/23 MR#:[id number] Address1:[address] Acct ID:[id number] Address2: Date:1950 [facility] Zip:[place] [address] Age:72 Location: Sex:F Room/Bed:[facility] Att Phy:Sekou Reyna MD Diagnosis:AMBULATORY DYSFUNCTION Gilma Phy:Dhruv Moss MD Service Date:04/11/23 Fam Phy: Interpreting Phy:Aureliano Najera MDAdmit Phy:Sekou Reyna MD Ordering Phy:Mustapha Gaspar DO cc: ~ MRI of the right hip without contrast CLINICAL HISTORY: trochanter fracture COMPARISON STUDY: Pelvis and right hip radiographs and CT of the right hip April 10, 2023. TECHNIQUE: Utilizing a 1.5 Latasha magnet and dedicated coil, multiplanar, multi echo imaging of the right hip was performed without intra-articular or intravenous contrast. FINDINGS: Note is again made of an acute displaced fracture of the greater trochanter of the right femur, as shown on CT. In addition, there is an intertrochanteric component of the fracture which nearly extends to the lesser trochanter. This is not evident by CT. No additional acute fractures are present. No suspicious marrow replacement. No evidence for avascular necrosis. Soft tissue edema adjacent to the right hip is present. A Aguirre balloon within the bladder is incidentally noted. Sacroiliac joints and symphysis pubis are incidentally noted. A moderate amount of stool within the distal colon and rectum is present. IMPRESSION: Acute intertrochanteric fracture of the right femur, as described above. Displaced fracture involving the greater trochanter with a nondisplaced intertrochanteric component which nearly extends to the lesser trochanter. ACT 112: Negative or not required by law. Electronically signed by: Aureliano Najera M.D. 04/11/2023 9:59 AM Dictated:04/11/23 0948 Transcribed: 04/11/23 0953
[2023-04-11] MEDS: cefTRIAXone SODIUM 2,000 MG in DEXTROSE 5% 50 ML IV SCH (10:21)
[2023-04-11 11:45] LABS: Hematocrit (blood only) 21.2 % (37.0-47.0); Hemoglobin 7.2 g/dl (12.0-16.0); Mean Corpuscular Hemoglobin 37.7 pg (25.0-34.0); Mean Platelet Volume 8.8 fL (9.4-12.4); Platelet Count 26 K/uL (130-400); RDW Coefficient of Variation 12.9 % (11.5-14.5); RDW Standard Deviation 51.5 fL (36.4-46.3); Red Blood Count 1.91 M/uL (4.20-5.40); White Blood Count 5.26 K/ul (4.8-10.8)
[2023-04-11 12:42] LABS: Dohle Bodies 1+; Eosinophils # (auto) 0.08 K/uL (0-0.50); Eosinophils % (auto) 1.5 %; Hypogranular Neutrophils 1+; Immature Granulocytes # (auto) 0.01 K/uL (0.01-0.20); Immature Granulocytes % (auto) 0.2 %; Lymphocytes # (auto) 1.89 K/uL (1.2-3.4); Lymphocytes % (auto) 35.9 %; Macrocytosis Present; Monocytes # (auto) 0.48 K/uL (0.11-0.59); Monocytes % (auto) 9.1 %; Neutrophils % (auto) 53.3 %; Polychromasia 1+
--- NOTE | 2023-04-11 12:50 | Pharmacy Report ---
Pharmacy Glycemic Short Note 2 - Date of Service April 11, 2023 - Glycemic Short BSG Results (Last 24 hours): 04/10/23 04/10/23 04/11/23 16:36 20:16 07:12 POC Glucose 167 H 210 H 123 H 04/11/23 11:34 POC Glucose 146 H OUTPATIENT ANTIDIABETIC REGIMEN: * Levemir 28 units BIDM? (potentially 20 units daily) * Novolin R with meals * Metformin 1 gm PO BID * HbA1C = 10.2% (04/05/23) ASSESSMENT: 04/11/23 * BSGs much improved today - will decrease basal today in order to decrease likelihood of hypoglycemia * Remains on ceftriaxone for E.coli bacteremia * Surgery anticipated, but on hold at this time due to thrombocytopenia 04/10/23 * 72 yo female, Type 2 DM, recent admission last week, s/p fall d/t lightheadedness, admitted with hip fracture. Pt known to glycemic service from last admission. * Will begin with similar insulin dosing as last week, with higher goal range and conservative titration to prevent hypoglycemia. PLAN FOR INPATIENT GLYCEMIC CONTROL: * Hold outpatient oral diabetes medications * Basal insulin - decrease * Lantus 10 units SQ BID * Bolus insulin * NovoLog per scale ACHS or Q6hrs while NPO * Goal Range: Low 120 mg/dL - High 150 mg/dL * Correction Factor: 25 mg/dL/unit * Nutritional / Prandial insulin per carb ratio of 1 unit per 10 grams CHO consumed
[2023-04-11] MEDS: traMADol HCL 50 MG TABLET PO PRN (13:17)
[2023-04-11] MEDS ORDERED: SODIUM CHLORIDE 0.9% 250 ML IV PRN (13:47)
--- NOTE | 2023-04-11 14:30 | Hospitalist Progress Note ---
Date of Service April 11, 2023 Assessment & Plan (1) Closed fracture of right hip: (2) Generalized weakness: (3) Hypomagnesemia: Plan: Patient presents from home with mechanical fall. Recent admission from April 05 to April 08 for E. coli bacteremia. CT head, CT cervical spine negative for acute findings. Pelvic x-ray concerning for fracture. Hip CT shows confirmation of acute, comminuted and displaced greater trochanteric fracture. Discussed with orthopedics(Dr. Gaspar); recommends to obtain MRI to evaluate for intertrochanteric extension. MRI hip was done ; acute intertrochanteric fracture of right femur. Displaced fracture involving the greater trochanteric with a nondisplaced intertrochanteric component which nearly extends to the lesser trochanter. Discussed with orthopedics; patient will need surgery. Most likely due to be done on . Discussed with oncology( Dr. Keon Pa) who is her hematology/oncology: 1) plan to transfuse 2 units of pooled irradiated leukoreduced single donor platelets tomorrow afternoon followed by 2 units of pooled irradiated leukoreduced single donor platelets on prior to surgery 2) transfuse 1 unit of packed irradiated RBC tomorrow. Discussed with blood bank regarding the arrangements. It was also discussed with orthopedics. Type and screen ordered. We will obtain consent from the patient. (4) E coli bacteremia: Plan: Urine culture and blood culture from last admission consistent with E. coli which is pansensitive. Patient was discharged home on Augmentin. will restart back on ceftriaxone while patient is inpatient. Last dose of antibiotic to be on April 18 to complete 14-day course. Repeat blood cultures negative so far. (5) Myelodysplastic syndrome: (6) Thrombocytopenia: Plan: status post stem cell transplant in August 2021. recent biopsy shows recurrence of disease. Followup with Heme/Onc. Labs reviewed; noted to have macrocytic anemia and thrombocytopenia. Discussed with oncology( Dr. Keon Pa) who is her hematology/oncology: 1) plan to transfuse 2 units of pooled irradiated leukoreduced single donor pl atelets tomorrow followed by 2 units of pooled irradiated leukoreduced single donor platelets on prior to surgery 2) transfuse 1 unit of packed irradiated RBC tomorrow. Discussed with blood bank regarding the arrangements. Type and screen ordered. We will obtain consent from the patient Plan Chronic conditions: Type 2 diabetes mellitus; started on Lantus 20 units twice daily and NovoLog. Pharmacy glycemic consult. History of hypothyroidism. Continue Synthroid. Hyperlipidemia. On statin. Continue Lipitor History of coronary artery disease. Continue statin, Imdur and metoprolol.. Hypertension. On metoprolol and imdur with holding parameters. Gastroesophageal reflux disease: On omeprazole. Deep venous thrombosis prophylaxis. Sequential compression devices as the patient has thrombocytopenia. Full code DVT prophylaxis SCDs. Patient has thrombocytopenia. Time spent evaluating patient, direct bedside care, chart review, placing orders, interpretation of diagnostic studies, discussion with consultants, patient, and family members, as well as other required patient management a ctivities is 60 minutes. Please note the above document was generated using voice recognition software. It may contain grammatical, syntax or spelling errors. Any formal questions or concerns about the content, text or information contained within the body of this dictation should be directly addressed to the provider for clarification Admission and Anticipated Discharge Date Admission Date: April 10, 2023 Subjective Patient seen and examined at bedside. She reports minimal pain on her right hip. Comfortable, afebrile and saturating well on room air. Review of Systems Review of Systems: All systems reviewed & are unremarkable except as noted in Subjective Physical Exam Physical Exam: Constitutional: Alert oriented x3; not in any distress. Respiratory: normal respiratory effort, lungs clear to auscultation, no wheeze, rales, rhonchi. Normal insp/exp effort, no accessory muscle use Cardiovascular: RRR, no murmur, no edema Vessels: no JVD or carotid bruit Chest: normal inspection of chest Abdomen: normal bowel sounds, soft, nontender, no hepatosplenomegaly Musculoskeletal: ROM painful while moving right hip. No overlying bruising. Skin: no rashes, warm and dry normal turgor Neurologic: PERRL, EOMI, accommodation nl, no face palsy, no dysarthria CN's II- XI intact bilaterally and moves all extremities Psychiatric: A+Ox3, euthymic affect Results & Data Results & Data Vital Signs (Past 12 Hours) Vital Signs Temp Pulse Pulse Resp BP BP Pulse Ox 04/11/23 11:06 36.9 C 78 16 99/49 L 93 04/11/23 07:49 37 C 79 18 112/62 93 04/11/23 07:00 82 04/11/23 03:00 37.1 C 81 18 128/65 94 O2 Del Method 04/11/23 11:06 Room Air 04/11/23 07:49 Room Air 04/11/23 07:00 04/11/23 03:00 Room Air Laboratory Results Laboratory Results WBC 5.26 K/ul (4.8-10.8) 04/11/23 11:21 RBC 1.91 M/uL (4.20-5.40) L 04/11/23 11:21 Hgb 7.2 g/dl (12.0-16.0) L 04/11/23 11:21 Hct 21.2 % (37.0-47.0) L 04/11/23 11:21 MCV 111.0 fL (80.0-100.0) H 04/11/23 11:21 MCH 37.7 pg (25.0-34.0) H 04/11/23 11:21 MCHC 34.0 g/dL (32.0-36.0) 04/11/23 11:21 RDW Std Deviation 51.5 fL (36.4-46.3) H 04/11/23 11:21 RDW Coeff of Evin 12.9 % (11.5-14.5) 04/11/23 11:21 Plt Count 26 K/uL (130-400) L* 04/11/23 11:21 MPV 8.8 fL (9.4-12.4) L 04/11/23 11:21 Immature Gran % (Auto) 0.2 % 04/11/23 11:21 Neut % (Auto) 53.3 % 04/11/23 11:21 Lymph % (Auto) 35.9 % 04/11/23 11:21 Stone % (Auto) 9.1 % 04/11/23 11:21 Eos % (Auto) 1.5 % 04/11/23 11:21 Baso % (Auto) 0.0 % 04/11/23 11:21 Neut # (Auto) 2.80 K/uL (1.40-6.50) 04/11/23 11:21 Lymph # (Auto) 1.89 K/uL (1.2-3.4) 04/11/23 11:21 Stone # (Auto) 0.48 K/uL (0.11-0.59) 04/11/23 11:21 Eos # (Auto) 0.08 K/uL (0-0.50) 04/11/23 11:21 Baso # (Auto) 0.00 K/uL (0-0.2) 04/11/23 11:21 Immature Gran # (Auto) 0.01 K/uL (0.01-0.20) 04/11/23 11:21 Neutrophils % (Manual) 81 % 04/10/23 06:30 Lymphocytes % (Manual) 13 % 04/10/23 06:30 Monocytes % (Manual) 2 % 04/10/23 06:30 Eosinophils % (Manual) 2 % 04/10/23 06:30 Basophils % (Manual) 2 % 04/10/23 06:30 Blast Cells % (Manual) 1 % 04/10/23 06:30 Neutrophils # (Manual) 3.91 K/uL (1.40-6.50) 04/10/23 06:30 Total Absolute Neuts 3.91 K/uL (1.4-6.5) 04/10/23 06:30 Lymphocytes # (Manual) 0.63 K/uL (1.2-3.4) L 04/10/23 06:30 Total Abs Lymphocytes 0.63 K/uL (1.2-3.4) L 04/10/23 06:30 Monocytes # (Manual) 0.10 K/uL (0.11-0.59) L 04/10/23 06:30 Eosinophils # (Manual) 0.10 K/uL (0-0.50) 04/10/23 06:30 Basophils # (Manual) 0.10 K/uL (0-0.2) 04/10/23 06:30 Blast Cells # (Man) 0.05 K/uL (0-0) H 04/10/23 06:30 Hypogranular Neuts 1+ 04/11/23 11:21 Blood Smear Review Cancelled 04/11/23 11:21 Dohle Bodies 1+ 04/11/23 11:21 Polychromasia 1+ 04/11/23 11:21 Anisocytosis Present 04/10/23 06:30 Macrocytosis Present 04/11/23 11:21 Sodium 138 mmol/L (136-145) 04/10/23 06:30 Potassium 4.0 mmol/L (3.5-5.1) 04/10/23 06:30 Chloride 104 mmol/L (98-107) 04/10/23 06:30 Carbon Dioxide 27 mmol/L (21-32) 04/10/23 06:30 Anion Gap 7 (3-11) 04/10/23 06:30 BUN 15 mg/dl (6-23) 04/10/23 06:30 Creatinine 0.93 mg/dl (0.6-1.2) 04/10/23 06:30 Est Cr Clr Drug Dosing 56.5 ml/min 04/10/23 06:30 Est GFR ( Amer) 70.2 ml/min 04/10/23 06:30 Est GFR (Non-Af Amer) 60.5 ml/min 04/10/23 06:30 BUN/Creatinine Ratio 16.1 (10-20) 04/10/23 06:30 Glucose 172 mg/dl (70-99(Fasting)) H 04/10/23 06:30 POC Glucose 146 mg/dl (70-99) H 04/11/23 11:34 Calcium 8.7 mg/dl (8.6-10.3) 04/10/23 06:30 Magnesium 1.3 mg/dl (1.7-2.4) L 04/10/23 06:30 Total Bilirubin 0.4 mg/dl (0.2-1.0) 04/10/23 06:30 Direct Bilirubin 0.1 mg/dl (0-0.2) 04/10/23 06:30 AST 19 U/L (13-39) 04/10/23 06:30 ALT 22 U/L (7-52) 04/10/23 06:30 Alkaline Phosphatase 66 U/L (34-104) 04/10/23 06:30 Troponin I High Sens 4.7 pg/ml (0-14) 04/10/23 06:30 Total Protein 7.7 gm/dl (6.0-8.3) 04/10/23 06:30 Albumin 3.3 gm/dl (3.4-5.0) L 04/10/23 06:30 Procalcitonin 0.54 ng/ml (0-0.5) H 04/10/23 06:30 Urine Color Yellow 04/10/23 Unknown Urine Appearance Clear (Clear) 04/10/23 Unknown Urine pH 6.0 (4.5-7.5) 04/10/23 Unknown Ur Specific [place] 1.013 (1.000-1.030) 04/10/23 Unknown Urine Protein 1+ (Negative) H 04/10/23 Unknown Urine Glucose (UA) Negative (Negative) 04/10/23 Unknown Urine Ketones Negative (Negative) 04/10/23 Unknown Urine Blood 1+ (Negative) H 04/10/23 Unknown Urine Nitrite Negative (Negative) 04/10/23 Unknown Urine Bilirubin Negative (Negative) 04/10/23 Unknown Urine Urobilinogen Negative (Negative) 04/10/23 Unknown Ur Leukocyte Esterase Trace (Negative) H 04/10/23 Unknown Urine WBC (Auto) 10-30 /hpf (0-5) H 04/10/23 Unknown Urine RBC (Auto) 0-4 /hpf (0-4) 04/10/23 Unknown U Hyaline Cast (Auto) 1-5 /lpf (0-5) 04/10/23 Unknown U Epithel Cells (Auto) 20-30 /lpf (0-5) H 04/10/23 Unknown Urine Bacteria (Auto) Negative (Negative) 04/10/23 Unknown SARS-CoV-2, RNA, NAAT NEGATIVE (NEGATIVE) 04/10/23 07:[address] 04/10/23 06:25 CT cervical spine wo con CT DOSE: 1015.99 mGy.cm CLINICAL HISTORY: 72 years-old Female with fall with head injury, confusion. Acute neck injury status post fall COMPARISON: Head CT of same day TECHNIQUE: Multiple axial CT images of the cervical spine were obtained without contrast. A dose lowering technique was utilized adhering to the principles of ALARA. FINDINGS: Straightening of the normal cervical lordosis with multilevel degenerative changes. Grade 1 anterolisthesis C7 on T1 is likely degenerative. Right-sided cervical rib. The cervical soft tissues appear unremarkable. Carotid calcifications. Partially imaged right IJ catheter. The visualized lung apices appear clear. IMPRESSION: No acute cervical spine fracture or subluxation identified. ACT 112: Negative or not required by law. The above report was generated using voice recognition software. It may contain grammatical, syntax or spelling errors. Electronically signed by: Mustahpa Galvin M.D. 04/10/2023 8:[address] 04/10/23 06:25 CT head/brain wo con CLINICAL HISTORY: 72 years-old Female with fall, head injury. Acute head injury status post fall TECHNIQUE: Multiple axial CT images of the head were obtained without contrast. A dose lowering technique was utilized adhering to the principles of ALARA. COMPARISON: Head CT 04/04/2023, CT cervical spine 04/10/2023. FINDINGS: No acute intracranial hemorrhage, midline shift, intra-axial mass, h ydrocephalus, territorial ischemia or abnormal extra-axial collection. Involutional changes with chronic microvascular ischemic disease. Unchanged 1.1 cm calcification within the right middle cranial fossa suggestive of a meningioma. The calvarium is intact. Trace mastoid effusions. The paranasal sinuses are generally clear. IMPRESSION: No acute intracranial abnormality. ACT 112: Negative or not required by law. The above report was generated using voice recognition software. It may contain grammatical, syntax or spelling errors. Electronically signed by: Mustapha Galvin M.D. 04/10/2023 8:16 AM Hip/Pelvis X-Ray 04/10/23 06:25 XR hip RT 2V w pelvis HISTORY: 72 years-old Female right hip pain s/p fall acute right-sided hip pain status post fall COMPARISON: CT abdomen and pelvis 04/04/2023 TECHNIQUE: AP view of the pelvis with 2 views of the right hip FINDINGS: [id number] osteoarthritis of the hips. Moderate degeneration of the pubic symphysis and SI joints. Demineralized appearance of the bones. No acute displaced fracture, dislocation or avascular necrosis. Ill-defined lucencies with cortical irregularity noted involving the greater tuberosity. Arterial calcifications. Partially imaged lumbar spinal fusion hardware with discectomy changes. IMPRESSION: Subtle cortical irregularity with linear lucencies within the greater tuberosity. Correlation with CT recommended to exclude an acute greater trochanteric versus intertrochanteric fracture. ACT 112: Negative or not required by law. The above report was generated using voice recognition software. It may contain grammatical, syntax or spelling errors. Electronically signed by: Mustapha Galvin M.D. 04/10/2023 8:05 AM Chest X-Ray 04/10/23 06:26 XR chest 1V portable HISTORY: 72 years-old Female weakness, fatigue acute weakness with fatigue COMPARISON: Chest radiograph 04/04/2023 TECHNIQUE: AP view of the chest FINDINGS: Cardiac silhouette is enlarged. Right IJ [id number] catheter is partially imaged. Atherosclerosis of the aorta. No pneumothorax, pleural effusion, airspace consolidation or pulmonary edema. Degenerative changes of the shoulders and spine. Cholecystectomy. Partially imaged lumbar spinal fusion hardware. IMPRESSION: No acute process. ACT 112: Negative or not required by law. The above report was generated using voice recognition software. It may contain grammatical, syntax or spelling errors. Electronically signed by: Mustapha Galvin M.D. 04/10/2023 8:[address] 04/10/23 08:28 CT hip RT wo con HISTORY: 72 years-old Female fall, right hip injury acute right hip pain status post fall COMPARISON: Hip radiographs of same day TECHNIQUE: Multiple axial CT images of the right hip were obtained without the use of IV contrast. A dose lowering technique was used consistent with the principals of ALARA. FINDINGS: There is an acute and comminuted greater trochanteric fracture demonstrating 2 cm displacement. There is no definite intratrochanteric fracture extension identified. Mild to moderate osteoarthritis of the right femoral acetabular joint. No additional acute fracture, dislocation or avascular necrosis. There is severe degeneration of the pubic symphysis. Arterial calcifications. Mild subcutaneous edema lateral to the right hip. Moderately distended urinary bladder. IMPRESSION: 1. Confirmation of the acute, comminuted and displaced greater trochanteric fracture. No definite intertrochanteric fracture extension identified. 2. No dislocation. ACT 112: Negative or not required by law. The above report was generated using voice recognition software. It may contain grammatical, syntax or spelling errors. Electronically signed by: Mustapha Galvin M.D. 04/10/2023 9:36 AM Hip MRI 04/11/23 10:47 MRI of the right hip without contrast CLINICAL HISTORY: trochanter fracture COMPARISON STUDY: Pelvis and right hip radiographs and CT of the right hip April 10, 2023. TECHNIQUE: Utilizing a 1.5 Latasha magnet and dedicated coil, multiplanar, multi echo imaging of the right hip was performed without intra-articular or intravenous contrast. FINDINGS: Note is again made of an acute displaced fracture of the greater trochanter of the right femur, as shown on CT. In addition, there is an intertrochanteric component of the fracture which nearly extends to the lesser trochanter. This is not evident by CT. No additional acute fractures are present. No suspicious marrow replacement. No evidence for avascular necrosis. Soft tissue edema adjacent to the right hip is present. A Aguirre balloon within the bladder is incidentally noted. Sacroiliac joints and symphysis pubis are incidentally noted. A moderate amount of stool within the distal colon and rectum is present. IMPRESSION: Acute intertrochanteric fracture of the right femur, as described ab ove. Displaced fracture involving the greater trochanter with a nondisplaced intertrochanteric component which nearly extends to the lesser trochanter. ACT 112: Negative or not required by law. Electronically signed by: Aureliano Najera M.D. 04/11/2023 9:59 AM (1) Closed fracture of right hip Encounter type: initial encounter Qualified Code(s): S72.001A - Fracture of unspecified part of neck of right femur, initial encounter for closed fracture
[2023-04-11] MEDS: VENLAFAXINE HCL XR 150 MG CAPXR PO SCH (20:08)
[2023-04-11] MEDS: LANTUS PER UNIT CHARGE SC SCH (20:33)
[2023-04-12] MEDS: LEVOTHYROXINE SODIUM 75 MCG TABLET PO SCH (05:50)
[2023-04-12] MEDS: traMADol HCL 50 MG TABLET PO PRN (05:50)
[2023-04-12] MEDS: HEPARIN 100 UNIT/ML 5ML FLUSH FLUSH PRN (06:37)
[2023-04-12 07:37] LABS: Eosinophils # (auto) 0.02 K/uL (0-0.50); Eosinophils % (auto) 0.4 %; Hematocrit (blood only) 22.1 % (37.0-47.0); Hemoglobin 7.5 g/dl (12.0-16.0); Lymphocytes # (auto) 1.86 K/uL (1.2-3.4); Mean Corpuscular Hemoglobin 37.7 pg (25.0-34.0); Mean Corpuscular Hgb Conc 33.9 g/dL (32.0-36.0); Mean Corpuscular Volume 111.1 fL (80.0-100.0); Mean Platelet Volume 9.3 fL (9.4-12.4); Monocytes # (auto) 0.48 K/uL (0.11-0.59); Monocytes % (auto) 9.3 %; Neutrophils % (auto) 54.3 %; Platelet Count 23 K/uL (130-400); Platelet Estimate Signific. Decreased (Normal); RDW Standard Deviation 51.8 fL (36.4-46.3); Red Blood Count 1.99 M/uL (4.20-5.40); White Blood Count 5.16 K/ul (4.8-10.8)
[2023-04-12 07:40] LABS: Albumin Level 3.1 gm/dl (3.4-5.0); Bilirubin,Total 0.4 mg/dl (0.2-1.0); Calcium 8.8 mg/dl (8.6-10.3); Potassium 3.7 mmol/L (3.5-5.1)
[2023-04-12 07:46] LABS: Albumin Globulin Ratio 0.7 (0.9-2); BUN Creatinine Ratio 11.7 (10-20); Est GFR (African American) 88.2 ml/min; Est GFR (Non-African American) 76.1 ml/min; Globulin 4.2 gm/dl (2.5-4.0); Total Protein 7.3 gm/dl (6.0-8.3)
[2023-04-12] MEDS: VIBEGRON 75 MG TAB PO SCH (09:25)
[2023-04-12] MEDS: METOPROLOL SUCC 50MG EXT REL TAB PO SCH (09:25)
[2023-04-12] MEDS: CHOLECALCIFEROL 5,000 UNITS 125 MCG TAB PO SCH (09:25)
[2023-04-12] MEDS: ATORVASTATIN 40 MG TAB PO SCH (09:25)
[2023-04-12] MEDS: PANTOprazole 40 MG TAB PO SCH (09:25)
[2023-04-12] MEDS: OXYBUTYNIN CHLORIDE XL 5 MG TABCR PO SCH (09:25)
[2023-04-12] MEDS: ISOSORBIDE MONO EXTENDED REL 30 MG TABCR PO SCH (09:25)
[2023-04-12] MEDS: ACYCLOVIR 400 MG TAB PO SCH ×2 (09:26→20:52)
[2023-04-12] MEDS: POLYETHYLENE (MIRALAX) 17 GM PACK PO SCH (09:26)
[2023-04-12] MEDS: INSULIN ASPART PER UNIT CHARGE SC SCH ×4 (09:36→20:51)
[2023-04-12] MEDS: LANTUS PER UNIT CHARGE SC SCH ×3 (09:36→20:51)
[2023-04-12] MEDS ORDERED: SODIUM CHLORIDE 0.9% 250 ML IV PRN (09:57)
[2023-04-12] MEDS: cefTRIAXone SODIUM 2,000 MG in DEXTROSE 5% 50 ML IV SCH (11:11)
[2023-04-12] MEDS: ACETAMINOPHEN 325 MG TAB PO PRN ×2 (15:28→23:20)
--- NOTE | 2023-04-12 19:43 | Hospitalist Progress Note ---
Date of Service April 12, 2023 Assessment & Plan (1) Closed fracture of right hip: Plan: Patient presents from home with mechanical fall. CT head, CT cervical spine negative for acute findings. Pelvic x-ray concerning for fracture. Hip CT shows confirmation of acute, comminuted and displaced greater trochanteric fracture. Discussed with orthopedics(Dr. Gaspar); recommends to obtain MRI to evaluate for intertrochanteric extension. MRI hip was done ; acute intertrochanteric fracture of right femur. Displaced fracture involving the greater trochanteric with a nondisplaced intertrochanteric component which nearly extends to the lesser trochanter. Discussed with orthopedics; patient will need surgery. Most likely due to be done on . Discussed with oncology( Dr. Keon Pa) who is her hematology/oncology: 1) plan to transfuse 2 units of pooled irradiated leukoreduced single donor platelets tomorrow afternoon followed by 2 units of pooled irradiated leukoreduced single donor platelets on prior to surgery 2) transfuse 1 unit of packed irradiated RBC tomorrow. (2) E coli bacteremia: Plan: Urine culture and blood culture from last admission consistent with E. coli which is pansensitive. Patient was discharged home on Augmentin. Changed to ceftriaxone while inpatient. Last dose of antibiotic to be on April 18 to complete 14-day course. Repeat blood cultures negative so far. (3) Generalized weakness: (4) Myelodysplastic syndrome: Plan: status post stem cell transplant in August 2021. recent biopsy shows recurrence of disease. Followup with Heme/Onc. (5) Thrombocytopenia: Plan: Platelet transfusion preop per recommendations above. CBC in am Plan Chronic conditions: Type 2 diabetes mellitus; started on Lantus 20 units twice daily and NovoLog. Pharmacy glycemic consult. History of hypothyroidism. Stable, continue Synthroid. Hyperlipidemia. Stable, on statin. Continue Lipitor History of coronary artery disease. Stable, continue statin, Imdur and metoprolol.. Hypertension. At goal, on metoprolol and imdur with holding parameters. Gastroesophageal reflux disease:Controlled, on omeprazole. Deep venous thrombosis prophylaxis. Sequential compression devices as the patient has thrombocytopenia. Full code DVT prophylaxis SCDs. Radha Feliciano DO [facility] Hospitalist Admission and Anticipated Discharge Date Admission Date: April 10, 2023 Subjective 72-year-old female presented with closed fracture of right hip. She has a history of myelodysplastic syndrome and chronic thrombocytopenia. She is currently undergoing transfusion today including 1 pack of red blood cells and 2 packs of platelets. She is not having any difficulty or volume overload with the transfusion She denies pain that is uncontrolled although reports her hip is painful. Aguirre is in place for comfort. No other issues today. Review of Systems Review of Systems: All systems reviewed negative except as indicated above. Physical Exam Physical Exam: CONSTITUTIONAL: WNWD, vitals as above, generally well-appearing, NAD EYES: normal conjunctivae, no scleral icterus ENT: external ear and nose normal, MMM NECK: trachea midline RESPIRATORY: clear to auscultation bilaterally, no crackles, rales or wheezes, normal respiratory effort CARDIOVASCULAR: regular rate and rhythm, S1 and 2 heard without murmurs, gallops or rubs, no JVD, no peripheral edema CHEST: inspection of chest was normal GASTROINTESTINAL: soft, nontender, ND, no guarding MUSCULOSKELETAL: strength 5/5 throughout, head is normocephalic and atraumatic SKIN: warm and dry NEUROLOGIC: CN 2-12 grossly intact, no sensory deficit, normal cognition, normal speech, no tremor PSYCHIATRIC: alert cooperative and oriented to person, place and time. Results & Data Results & Data Vital Signs (Past 12 Hours) Vital Signs Temp Pulse Resp BP Pulse Ox O2 Flow Rate 04/12/23 17:31 36.7 C 70 17 109/58 L 95 1 04/12/23 16:33 36.8 C 67 16 125/67 95 1 04/12/23 16:03 36.8 C 73 18 114/61 93 1 04/12/23 16:00 36.8 C 75 18 115/61 94 04/12/23 15:48 72 04/12/23 15:47 36.6 C 76 18 108/66 96 04/12/23 15:30 37.3 C 74 18 100/49 L 97 04/12/23 15:26 37.3 C 86 18 100/49 L 97 1 04/12/23 14:43 36.8 C 71 18 121/63 97 1 04/12/23 14:13 36.7 C 70 18 109/58 L 97 1 04/12/23 13:58 36.9 C 72 16 93/50 L 98 1 04/12/23 13:39 36.5 C 74 20 82/50 L 05/31/23 12:43 36.7 C 75 17 106/58 L 93 1 04/12/23 12:15 36.4 C L 73 18 107/61 96 1 04/12/23 11:15 36.7 C 74 18 106/66 92 2 04/12/23 10:15 36.6 C 75 19 87/53 L 95 1 04/12/23 09:45 37.0 C 80 18 114/66 91 1 04/12/23 09:45 37 C 80 16 114/66 91 1 04/12/23 09:30 36.8 C 81 18 95/47 L 93 04/12/23 09:13 36.6 C 84 16 105/55 L 91 04/12/23 07:58 101 H Laboratory Results Short CBC 04/12/23 Range/Units 06:32 WBC 5.16 (4.8-10.8) K/ul Hgb 7.5 L (12.0-16.0) g/dl Hct 22.1 L (37.0-47.0) % Plt Count 23 L* (130-400) K/uL BMP 04/12/23 06:32 Sodium 137 Potassium 3.7 Chloride 102 Carbon Dioxide 28 BUN 9 Creatinine 0.77 Glucose 83 Calcium 8.8 Liver Function 04/12/23 Range/Units 06:32 Total Bilirubin 0.4 (0.2-1.0) mg/dl AST 13 (13-39) U/L ALT 14 (7-52) U/L Alkaline Phosphatase 66 (34-104) U/L Albumin 3.1 L (3.4-5.0) gm/dl Medications Administered Current Inpatient Medications Acetaminophen (Acetaminophen 325 Mg Tab) 650 mg PO Q4H PRN PRN Reason: Pain or Fever Stop: 05/10/23 10:06 Last Admin: 04/12/23 15:28 Dose: 650 mg Acyclovir (Acyclovir 400 Mg Tab) 800 mg PO BID [facility] Stop: 05/10/23 10:29 Last Admin: 04/12/23 09:26 Dose: 800 mg Atorvastatin Calcium (Atorvastatin 40 Mg Tab) 40 mg PO DAILY [facility] Stop: 05/10/23 10:06 Last Admin: 04/12/23 09:25 Dose: 40 mg Dextrose (Dextrose 50% 50 Ml Syringe) 25 - 50 ml IV UD PRN; Protocol PRN Reason: Hypoglycemia Protocol Stop: 05/10/23 10:06 Glucagon (Glucagon For Inj 1 Mg Vial) 1 mg SQ UD PRN; Protocol PRN Reason: Hypoglycemia Protocol Stop: 05/10/23 10:06 Glucose (Glucose 10 Tab/Tube) 4 - 8 tab PO UD PRN; Protocol PRN Reason: Hypoglycemia Treatment Stop: 05/10/23 10:06 Glucose (Glucose 40% Gel 15 Gm Tube) 15 - 30 gm PO UD PRN; Protocol PRN Reason: Hypoglycemia Protocol Stop: 05/10/23 10:06 Heparin Sodium (Porcine) (Heparin 100 Unit/Ml 5ml Flush) 5 ml FLUSH PRN PRN PRN Reason: Flush Stop: 05/11/23 23:10 Last Admin: 04/12/23 06:37 Dose: 5 ml Ceftriaxone Sodium 2,000 mg/ (Dextrose) 70 mls @ 100 mls/hr IV Q24H [facility]; Protocol Stop: 04/24/23 10:59 Last Infusion: 04/12/23 13:09 Dose: Infused Sodium Chloride (Nss) 250 mls @ 15 mls/hr IV .[id number] PRN PRN Reason: For Transfusion Duration Stop: 04/12/23 19:57 Insulin Aspart (Insulin Aspart Per Unit Charge) 0 units SC ACHS [facility]; Protocol Stop: 05/10/23 11:29 Last Admin: 04/12/23 17:16 Dose: 4 units Insulin Glargine (Lantus Per Unit Charge) 8 units SC BID [facility] Stop: 05/12/23 09:19 Last Admin: 04/12/23 09:36 Dose: 8 units Isosorbide Mononitrate (Isosorbide [place] Extended Rel 30 Mg Tabcr) 30 mg PO [facility] Stop: 05/10/23 10:06 Last Admin: 04/12/23 09:25 Dose: 30 mg Levothyroxine Sodium (Levothyroxine Sodium 75 Mcg Tablet) 75 mcg PO DAILYBB [facility] Stop: 05/10/23 10:06 Last Admin: 04/12/23 05:50 Dose: 75 mcg Metoprolol Succinate (Metoprolol Succ 50mg Ext Rel Tab) [facility] Stop: 05/10/23 10:06 Last Admin: 04/12/23 09:25 Dose: 50 mg Miscellaneous (Carbohydrates For Hypoglycemia ) 15 - 30 gm PO UD PRN PRN Reason: Hypoglycemia Protocol Stop: 05/10/23 10:06 Miscellaneous Information (Pharmacy Glycemic Mgmt Consult) 1 each N/A UD PRN PRN Reason: Consult Stop: 05/10/23 10:06 Ondansetron HCl (Ondansetron Inj 2 Mg/Ml 2 Ml Vial) 4 mg IV Q6H PRN PRN Reason: Nausea And Vomiting Stop: 05/10/23 11:39 Last Admin: 04/10/23 11:53 Dose: 4 mg Oxybutynin Chloride (Oxybutynin Chloride Xl 5 Mg Tabcr) 5 mg PO DAILY [facility] Stop: 05/10/23 10:29 Last Admin: 04/12/23 09:25 Dose: 5 mg Pantoprazole Sodium (Pantoprazole 40 Mg Tab) 40 mg PO DAILY [facility] Stop: 05/10/23 10:29 Last Admin: 04/12/23 09:25 Dose: 40 mg Polyethylene Glycol (Polyethylene (Miralax) 17 Gm Pack) 17 gm PO DAILY [facility] Stop: 05/10/23 10:14 Last Admin: 04/12/23 09:26 Dose: 17 gm Tramadol HCl (Tramadol Hcl 50 Mg Tablet) 50 mg PO Q6H PRN PRN Reason: Pain Stop: 05/10/23 10:06 Last Admin: 04/12/23 05:50 Dose: 50 mg Venlafaxine HCl (Venlafaxine Hcl Xr 150 Mg Capxr) 150 mg PO HS [facility] Stop: 05/10/23 20:59 Last Admin: 04/11/23 20:08 Dose: 150 mg Vibegron (Vibegron 75 Mg Tab) 75 mg PO DAILY [facility]; Protocol Stop: 05/10/23 10:29 Last Admin: 04/12/23 09:25 Dose: 75 mg Vitamin D (Cholecalciferol 5,000 Units 125 Mcg Tab) 5,000 units PO QAM [facility] Stop: 05/10/23 10:06 Last Admin: 04/12/23 09:25 Dose: 5,000 units (1) Closed fracture of right hip Encounter type: initial encounter Qualified Code(s): S72.001A - Fracture of unspecified part of neck of right femur, initial encounter for closed fracture
[2023-04-12] MEDS: VENLAFAXINE HCL XR 150 MG CAPXR PO SCH (20:52)
[2023-04-13] MEDS: LEVOTHYROXINE SODIUM 75 MCG TABLET PO SCH (05:47)
--- NOTE | 2023-04-13 07:10 | Anesthesiology Consultation ---
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 History Surgery Operation Date: 04/13/23 07:00 Proposed Procedures p Right Trochanteric Femoral Nail - Mustapha Gaspar DO Height/Weight Height: 5 ft 7 in Weight: 75.6 kg Allergies Allergy/AdvReac Type Severity Reaction Status Date / Time No Known Allergies Allergy Verified 07/12/21 10:31 Medications Home Medications Medication Instructions Recorded Confirmed Last Taken cholecalciferol (vitamin D3) 125 125 mcg PO QAM 06/05/20 04/10/23 04/09/23 mcg (5,000 unit) tablet (Vitamin D3) insulin detemir U-100 100 unit/mL 22 unit subcut HS 06/05/20 04/10/23 04/09/23 subcutaneous solution (Levemir U-100 Insulin) insulin regular human 100 unit/mL 0 unit subcut .SLIDING SCALE 06/05/20 04/10/23 04/09/23 (3 mL) subcutaneous pen (Novolin R FlexPen) isosorbide mononitrate 30 mg 30 mg PO QAM 06/05/20 04/10/23 04/09/23 tablet,extended release 24 hr metformin 1,000 mg tablet 1,000 mg PO BIDM 06/05/20 04/10/23 04/09/23 metoprolol succinate 50 mg 50 mg PO QAM 06/05/20 04/10/23 04/09/23 tablet,extended release 24 hr venlafaxine 150 mg 150 mg PO HS 06/05/20 04/10/23 04/09/23 capsule,extended release 24 hr (Effexor XR) omeprazole 20 mg capsule,delayed 20 mg PO DAILY 10/13/20 04/10/23 04/09/23 release tramadol 50 mg tablet 50 mg PO Q6H PRN Pain 10/27/20 04/10/23 04/09/23 acyclovir 800 mg tablet 800 mg PO BID 04/05/23 04/10/23 04/09/23 atorvastatin 40 mg tablet 40 mg PO DAILY 04/05/23 04/10/23 04/09/23 levothyroxine 75 mcg tablet 75 mcg PO DAILY 04/05/23 04/10/23 04/09/23 mirabegron 50 mg tablet,extended 50 mg PO DAILY 04/05/23 04/10/23 04/09/23 release 24 hr (Myrbetriq) solifenacin 5 mg tablet 5 mg PO DAILY 04/05/23 04/10/23 04/09/23 acetaminophen 325 mg tablet 650 mg PO Q4H PRN fever or pain 04/08/23 04/10/23 04/09/23 #30 tabs amoxicillin 875 mg-potassium 1 tab PO BID 10 days #20 tabs 04/08/23 04/10/23 04/09/23 clavulanate 125 mg tablet Active Medications Generic Name Dose Route Start Last Admin Trade Name Freq PRN Reason Stop Dose Admin Acetaminophen 650 mg 04/10/23 10:07 04/12/23 23:20 Acetaminophen 325 Mg Tab PO 05/10/23 10:06 650 mg Q4H PRN Administration Pain or Fever Acyclovir 800 mg 04/10/23 10:30 04/12/23 20:52 Acyclovir 400 Mg Tab PO 05/10/23 10:29 800 mg BID MARIA GUADALUPE Administration Atorvastatin Calcium 40 mg 04/10/23 10:07 04/12/23 09:25 Atorvastatin 40 Mg Tab PO 05/10/23 10:06 40 mg DAILY MARIA GUADALUPE Administration Heparin Sodium (Porcine) 5 ml 04/11/23 23:11 04/12/23 06:37 Heparin 100 Unit/Ml 5ml Flush FLUSH 05/11/23 23:10 5 ml PRN PRN Administration Flush Ceftriaxone Sodium 2,000 mg/ 70 mls @ 100 mls/hr 04/10/23 11:00 04/12/23 13:09 Dextrose IV 04/24/23 10:59 Infused Q24H [facility]IA GUADALUPE Infusion Protocol Insulin Aspart 0 units 04/10/23 11:30 04/12/23 20:51 Insulin Aspart Per Unit Charge SC 05/10/23 11:29 Not Given ACHS MARIA GUADALUPE Protocol Isosorbide Mononitrate 30 mg 04/10/23 10:07 04/12/23 09:25 Isosorbide [place] Extended Rel 30 Mg Tabcr PO 05/10/23 10:06 30 mg QAM [facility]IA GUADALUPE Administration Levothyroxine Sodium 75 mcg 04/10/23 10:07 04/13/23 05:47 Levothyroxine Sodium 75 Mcg Tablet PO 05/10/23 10:06 75 mcg DAILYBB MARIA GUADALUPE Administration Metoprolol Succinate 50 mg 04/10/23 10:07 04/12/23 09:25 Metoprolol Succ 50mg Ext Rel Tab PO 05/10/23 10:06 50 mg QAM [facility] GUADALUPE Administration Ondansetron HCl 4 mg 04/10/23 11:40 04/10/23 11:53 Ondansetron Inj 2 Mg/Ml 2 Ml Vial IV 05/10/23 11:39 4 mg Q6H PRN Administration Nausea And Vomiting Oxybutynin Chloride 5 mg 04/10/23 10:30 04/12/23 09:25 Oxybutynin Chloride Xl 5 Mg Tabcr PO 05/10/23 10:29 5 mg DAILY [facility] GUADALUPE Administration Pantoprazole Sodium 40 mg 04/10/23 10:30 04/12/23 09:25 Pantoprazole 40 Mg Tab PO 05/10/23 10:29 40 mg DAILY [facility] GUADALUPE Administration Polyethylene Glycol 17 gm 04/10/23 10:15 04/12/23 09:26 Polyethylene (Miralax) 17 Gm Pack PO 05/10/23 10:14 17 gm DAILY MARIA GUADALUPE Administration Tramadol HCl 50 mg 04/10/23 10:07 04/12/23 05:50 Tramadol Hcl 50 Mg Tablet PO 05/10/23 10:06 50 mg Q6H PRN Administration Pain Venlafaxine HCl 150 mg 04/10/23 21:00 04/12/23 20:52 Venlafaxine Hcl Xr 150 Mg Capxr PO 05/10/23 20:59 150 mg HS MARIA GUADALUPE Administration Vibegron 75 mg 04/10/23 10:30 04/12/23 09:25 Vibegron 75 Mg Tab PO 05/10/23 10:29 75 mg DAILY MARIA GUADALUPE Administration Protocol Vitamin D 5,000 units 04/10/23 10:07 04/12/23 09:25 Cholecalciferol 5,000 Units 125 Mcg Tab PO 05/10/23 10:06 5,000 units QAM [facility] GUADALUPE Administration Past Medical History Medical History CAD (coronary artery disease) 2017-EDIL to LAD Depression DM type 2 (diabetes mellitus, type 2) Dyslipidemia Hypertension Hypothyroidism Myelodysplastic syndrome Osteoarthritis Past Family History Family History Father Heart disease Mother Heart disease Sister Breast cancer Sister Multiple myeloma Brother Prostate cancer Past Surgical History Surgical History H/O dilation and curettage H/O tubal ligation History of cholecystectomy History of partial hysterectomy History of spinal fusion Social History Smoking Status: Never smoker Hx Alcohol Use: No Hx Substance Use: No Physical Exam Vital Signs Last Vital Signs Temp 97.9 F 04/13/23 04:00 Pulse 72 04/13/23 04:00 Resp 18 04/13/23 04:00 BP 149/72 H 04/13/23 04:00 Pulse Ox 96 04/13/23 04:00 O2 Del Method Nasal Cannula 04/13/23 04:00 O2 Flow Rate 2 04/13/23 04:00 Testing Laboratory Results 04/12/23 06:32 04/12/23 06:32 Urine Color Yellow 04/10/23 Unknown Urine Appearance Clear (Clear) 04/10/23 Unknown Urine pH 6.0 (4.5-7.5) 04/10/23 Unknown Ur Specific [place] 1.013 (1.000-1.030) 04/10/23 Unknown Urine Protein 1+ (Negative) H 04/10/23 Unknown Urine Glucose (UA) Negative (Negative) 04/10/23 Unknown Urine Ketones Negative (Negative) 04/10/23 Unknown Urine Nitrite Negative (Negative) 04/10/23 Unknown Ur Leukocyte Esterase Trace (Negative) H 04/10/23 Unknown Urine WBC (Auto) 10-30 /hpf (0-5) H 04/10/23 Unknown Urine RBC (Auto) 0-4 /hpf (0-4) 04/10/23 Unknown U Hyaline Cast (Auto) 1-5 /lpf (0-5) 04/10/23 Unknown U Epithel Cells (Auto) 20-30 /lpf (0-5) H 04/10/23 Unknown Urine Bacteria (Auto) Negative (Negative) 04/10/23 Unknown Blood Type A Positive 04/11/23 14:05 Antibody Screen NEGATIVE 04/11/23 14:05 04/10/23 08:53 Aerobic Blood Culture - Preliminary Blood No growth in Aerobic bottle after 48 hours. Anaerobic Blood Culture - Preliminary No growth in Anaerobic bottle after 48 hours. 04/10/23 08:46 Aerobic Blood Culture - Preliminary Blood No growth in Aerobic bottle after 48 hours. Anaerobic Blood Culture - Preliminary No growth in Anaerobic bottle after 48 hours. 04/10/23 Unknown Urine Culture - Final Urine,Clean Catch No growth - less than 1,000 colonies/mL. 04/12/23 20:36 POC Glucose 117 H Electrocardiogram Date: 04/10/23 Normal sinus rhythm, rate 77 bpm Normal ECG When compared with ECG of 04-APR-2023 14:27, Anterolateral UT no longer present Confirmed by Jonathan Bey ([id number]) on 04/10/2023 10:50:42 AM Chest X-Ray Date: 04/10/23 Findings: + NAD
[2023-04-13] MEDS: POLYETHYLENE (MIRALAX) 17 GM PACK PO SCH (08:02)
[2023-04-13] MEDS: ACYCLOVIR 400 MG TAB PO SCH ×2 (08:03→20:32)
[2023-04-13] MEDS: ISOSORBIDE MONO EXTENDED REL 30 MG TABCR PO SCH (08:03)
[2023-04-13] MEDS: ATORVASTATIN 40 MG TAB PO SCH (08:03)
[2023-04-13] MEDS: CHOLECALCIFEROL 5,000 UNITS 125 MCG TAB PO SCH (08:03)
[2023-04-13] MEDS: VIBEGRON 75 MG TAB PO SCH (08:04)
[2023-04-13] MEDS: PANTOprazole 40 MG TAB PO SCH (08:04)
[2023-04-13] MEDS: OXYBUTYNIN CHLORIDE XL 5 MG TABCR PO SCH (08:04)
[2023-04-13] MEDS: METOPROLOL SUCC 50MG EXT REL TAB PO SCH (08:04)
[2023-04-13] MEDS: INSULIN ASPART PER UNIT CHARGE SC SCH ×4 (08:06→20:35)
--- NOTE | 2023-04-13 08:34 | Hospitalist Progress Note ---
Date of Service April 13, 2023 Assessment & Plan (1) Closed fracture of right hip: Plan: Patient presents from home with mechanical fall. CT head, CT cervical spine negative for acute findings. Pelvic x-ray concerning for fracture. Hip CT shows confirmation of acute, comminuted and displaced greater trochanteric fracture. Discussed with orthopedics(Dr. Gaspar); recommends to obtain MRI to evaluate for intertrochanteric extension. MRI hip was done ; acute intertrochanteric fracture of right femur. Displaced fracture involving the greater trochanteric with a nondisplaced intertrochanteric component which nearly extends to the lesser trochanter. Discussed with orthopedics-plans for surgery 04/13 Discussed with oncology( Dr. Keon Pa) who is her hematology/oncology. 1 U pRBC and 2 PLT given 04/12 OK to proceed to surgery without further transfusions. (2) E coli bacteremia: Plan: Urine culture and blood culture from last admission consistent with E. coli which is pansensitive. Patient was discharged home on Augmentin. Changed to ceftriaxone while inpatient. Last dose of antibiotic to be on April 18 to complete 14-day course. Repeat blood cultures negative so far. (3) Myelodysplastic syndrome: Plan: status post stem cell transplant in August 2021. recent biopsy shows recurrence of disease. Followup with Heme/Onc. (4) Thrombocytopenia: Plan: Platelet transfusion preop per recommendations above. CBC in am Plan Chronic conditions: Type 2 diabetes mellitus; started on Lantus 20 units twice daily and NovoLog. Pharmacy glycemic consult. At her inpatient goal. History of hypothyroidism. Stable, continue Synthroid. Hyperlipidemia. Stable, on statin. Continue Lipitor History of coronary artery disease. Stable, continue statin, Imdur and metoprolol.. Hypertension. At goal, on metoprolol and imdur with holding parameters. Gastroesophageal reflux disease:Controlled, on omeprazole. Deep venous thrombosis prophylaxis. Sequential compression devices as the patient has thrombocytopenia. Full code DVT prophylaxis SCDs. Radha Feliciano DO [facility] Hospitalist Admission and Anticipated Discharge Date Admission Date: April 10, 2023 Subjective 72-year-old female presented with closed fracture of right hip. She has a history of myelodysplastic syndrome and chronic thrombocytopenia. She is currently undergoing transfusion today including 1 pack of red blood cells and 2 packs of platelets. She is not having any difficulty or volume overload with the transfusion Denies pain. Awaiting procedure this afternoon. Aguirre is in place for comfort. No other issues today. No need to receive additional transfusions with PLT 58K Review of Systems Review of Systems: All systems reviewed negative except as indicated above. Physical Exam Physical Exam: CONSTITUTIONAL: WNWD, vitals as above, generally well-appearing, NAD EYES: normal conjunctivae, no scleral icterus ENT: external ear and nose normal, MMM NECK: trachea midline RESPIRATORY: clear to auscultation bilaterally, no crackles, rales or wheezes, normal respiratory effort CARDIOVASCULAR: regular rate and rhythm, S1 and 2 heard without murmurs, gallops or rubs, no JVD, no peripheral edema CHEST: inspection of chest was normal GASTROINTESTINAL: soft, nontender, ND, no guarding MUSCULOSKELETAL: strength 5/5 throughout, head is normocephalic and atraumatic SKIN: warm and dry NEUROLOGIC: CN 2-12 grossly intact, no sensory deficit, normal cognition, normal speech, no tremor PSYCHIATRIC: alert cooperative and oriented to person, place and time. Results & Data Results & Data Vital Signs (Past 12 Hours) Vital Signs Temp Pulse Pulse Resp BP Pulse Ox O2 Del Method 04/13/23 07:31 37.1 C 73 20 162/81 H 93 Room Air 04/13/23 07:00 70 04/13/23 04:00 36.6 C 72 18 149/72 H 96 Nasal Cannula 04/12/23 22:01 81 04/12/23 23:23 98 Nasal Cannula 04/12/23 22:00 37.9 C H 83 20 152/65 H 91 Nasal Cannula O2 Flow Rate 04/13/23 07:31 04/13/23 07:00 04/13/23 04:00 2 04/12/23 22:01 04/12/23 23:23 1 04/12/23 22:00 2 Medications Administered Current Inpatient Medications Acetaminophen (Acetaminophen 325 Mg Tab) 650 mg PO Q4H PRN PRN Reason: Pain or Fever Stop: 05/10/23 10:06 Last Admin: 04/12/23 23:20 Dose: 650 mg Acyclovir (Acyclovir 400 Mg Tab) 800 mg PO BID [facility] Stop: 05/10/23 10:29 Last Admin: 04/13/23 08:03 Dose: 800 mg Atorvastatin Calcium (Atorvastatin 40 Mg Tab) 40 mg PO DAILY [facility] Stop: 05/10/23 10:06 Last Admin: 04/13/23 08:03 Dose: 40 mg Dextrose (Dextrose 50% 50 Ml Syringe) 25 - 50 ml IV UD PRN; Protocol PRN Reason: Hypoglycemia Protocol Stop: 05/10/23 10:06 Glucagon (Glucagon For Inj 1 Mg Vial) 1 mg SQ UD PRN; Protocol PRN Reason: Hypoglycemia Protocol Stop: 05/10/23 10:06 Glucose (Glucose 10 Tab/Tube) 4 - 8 tab PO UD PRN; Protocol PRN Reason: Hypoglycemia Treatment Stop: 05/10/23 10:06 Glucose (Glucose 40% Gel 15 Gm Tube) 15 - 30 gm PO UD PRN; Protocol PRN Reason: Hypoglycemia Protocol Stop: 05/10/23 10:06 Heparin Sodium (Porcine) (Heparin 100 Unit/Ml 5ml Flush) 5 ml FLUSH PRN PRN PRN Reason: Flush Stop: 05/11/23 23:10 Last Admin: 04/12/23 06:37 Dose: 5 ml Ceftriaxone Sodium 2,000 mg/ (Dextrose) 70 mls @ 100 mls/hr IV Q24H [facility]; Protocol Stop: 04/24/23 10:59 Last Infusion: 04/12/23 13:09 Dose: Infused Insulin Aspart (Insulin Aspart Per Unit Charge) 0 units SC [facility]; Protocol Stop: 05/10/23 11:29 Last Admin: 04/13/23 08:06 Dose: 1 units Isosorbide Mononitrate (Isosorbide [place] Extended Rel 30 Mg Tabcr) [facility] [place]: 05/10/23 10:06 Last Admin: 04/13/23 08:03 Dose: 30 mg Levothyroxine Sodium (Levothyroxine Sodium 75 Mcg Tablet) 75 mcg PO DAILYBB [facility] Stop: 05/10/23 10:06 Last Admin: 04/13/23 05:47 Dose: 75 mcg Metoprolol Succinate (Metoprolol Succ 50mg Ext Rel Tab) 50 mg PO QAM [facility] Stop: 05/10/23 10:06 Last Admin: 04/13/23 08:04 Dose: 50 mg Miscellaneous (Carbohydrates For Hypoglycemia ) 15 - 30 gm PO UD PRN PRN Reason: Hypoglycemia Protocol Stop: 05/10/23 10:06 Miscellaneous Information (Pharmacy Glycemic Mgmt Consult) 1 each N/A UD PRN PRN Reason: Consult Stop: 05/10/23 10:06 Ondansetron HCl (Ondansetron Inj 2 Mg/Ml 2 Ml Vial) 4 mg IV Q6H PRN PRN Reason: Nausea And Vomiting Stop: 05/10/23 11:39 Last Admin: 04/10/23 11:53 Dose: 4 mg Oxybutynin Chloride (Oxybutynin Chloride Xl 5 Mg Tabcr) 5 mg PO DAILY [facility] Stop: 05/10/23 10:29 Last Admin: 04/13/23 08:04 Dose: 5 mg Pantoprazole Sodium (Pantoprazole 40 Mg Tab) 40 mg PO DAILY [facility] Stop: 05/10/23 10:29 Last Admin: 04/13/23 08:04 Dose: 40 mg Polyethylene Glycol (Polyethylene (Miralax) 17 Gm Pack) 17 gm PO DAILY [facility] Stop: 05/10/23 10:14 Last Admin: 04/13/23 08:02 Dose: Not Given Tramadol HCl (Tramadol Hcl 50 Mg Tablet) 50 mg PO Q6H PRN PRN Reason: Pain Stop: 05/10/23 10:06 Last Admin: 04/12/23 05:50 Dose: 50 mg Venlafaxine HCl (Venlafaxine Hcl Xr 150 Mg Capxr) 150 mg PO [facility] Stop: 05/10/23 20:59 Last Admin: 04/12/23 20:52 Dose: 150 mg Vibegron (Vibegron 75 Mg Tab) 75 mg PO DAILY [facility]; Protocol Stop: 05/10/23 10:29 Last Admin: 04/13/23 08:04 Dose: 75 mg Vitamin D (Cholecalciferol 5,000 Units 125 Mcg Tab) 5,[facility] [place]: 05/10/23 10:06 Last Admin: 04/13/23 08:03 Dose: 5,000 units (1) Closed fracture of right hip Encounter type: initial encounter Qualified Code(s): S72.001A - Fracture of unspecified part of neck of right femur, initial encounter for closed fracture
[2023-04-13 09:13] LABS: Hematocrit (blood only) 24.5 % (37.0-47.0); Hemoglobin 8.5 g/dl (12.0-16.0); Mean Corpuscular Hemoglobin 35.4 pg (25.0-34.0); Mean Corpuscular Hgb Conc 34.7 g/dL (32.0-36.0); Mean Corpuscular Volume 102.1 fL (80.0-100.0); Mean Platelet Volume 9.6 fL (9.4-12.4); Platelet Count 58 K/uL (130-400); RDW Coefficient of Variation 18.6 % (11.5-14.5); White Blood Count 4.17 K/ul (4.8-10.8)
[2023-04-13 09:22] LABS: BUN Creatinine Ratio 11.4 (10-20); Calcium 8.8 mg/dl (8.6-10.3); Creatinine Clr Calc Pharmacy 74.8 ml/min; Est GFR (African American) 98.9 ml/min; Est GFR (Non-African American) 85.4 ml/min; Potassium 3.8 mmol/L (3.5-5.1)
[2023-04-13] MEDS: cefTRIAXone SODIUM 2,000 MG in DEXTROSE 5% 50 ML IV SCH (10:59)
[2023-04-13] MEDS ORDERED: LANTUS PER UNIT CHARGE SC ONE ×2 (12:15→21:00)
--- NOTE | 2023-04-13 14:38 | Pharmacy Report ---
Pharmacy Glycemic Short Note 2 - Date of Service April 13, 2023 - Glycemic Short BSG Results (Last 24 hours): 04/12/23 04/12/23 04/13/23 16:45 20:36 07:45 Glucose POC Glucose 147 H 117 H 167 H 04/13/23 04/13/23 08:14 11:49 Glucose 142 H POC Glucose 161 H OUTPATIENT ANTIDIABETIC REGIMEN: * Levemir 22 units SC HS * Novolin R with meals (SSI) * Metformin 1 gm PO BID * HbA1C = 10.2% (04/05/23) ASSESSMENT: 04/13/23 * BSGs have been reasonably well-controlled over past 48 hours * Patient NPO today for planned OR for right trochanteric femoral nailing this afternoon * Will make postoperative adjustments as needed 04/11/23 * BSGs much improved today - will decrease basal today in order to decrease likelihood of hypoglycemia * Remains on ceftriaxone for E.coli bacteremia * Surgery anticipated, but on hold at this time due to thrombocytopenia 04/10/23 * 72 yo female, Type 2 DM, recent admission last week, s/p fall d/t lightheadedness, admitted with hip fracture. Pt known to glycemic service from last admission. * Will begin with similar insulin dosing as last week, with higher goal range and conservative titration to prevent hypoglycemia. PLAN FOR INPATIENT GLYCEMIC CONTROL: * Hold outpatient oral diabetes medications * Basal insulin * Lantus 10 units SC x 1 prior to surgery * Reassess postoperatively * Bolus insulin * NovoLog per scale ACHS or Q6hrs while NPO * Goal Range: Low 120 mg/dL - High 150 mg/dL * Correction Factor: 25 mg/dL/unit * Nutritional / Prandial insulin per carb ratio of 1 unit per 10 grams CHO consumed
[2023-04-13] MEDS ORDERED: DEXAMETHASONE SOD INJ 4 MG/ML VIAL ONE (14:47)
[2023-04-13] MEDS ORDERED: ONDANSETRON INJ 2 MG/ML 2 ML VIAL ONE (14:47)
[2023-04-13] MEDS ORDERED: MIDAZOLAM HCL 1 MG/ML 2ML VIAL ONE (14:47)
[2023-04-13] MEDS ORDERED: fentaNYL citrate PF 100 MCG/2 ML VIAL ONE (14:47)
[2023-04-13] MEDS ORDERED: LIDOCAINE 2% 2 ML VIAL/AMP(20MG/ML) INFIL ONE ×2 (14:47)
[2023-04-13] MEDS ORDERED: PROPOFOL IV EMULSION 10 MG/ML 20 ML VIAL IV ONE (14:47)
[2023-04-13] MEDS ORDERED: ATROPINE SULFATE 0.1 MG/ML 10ML SYR IV PRN ×2 (15:49→17:36)
[2023-04-13] MEDS ORDERED: ONDANSETRON INJ 2 MG/ML 2 ML VIAL IV PRN ×2 (15:49→17:36)
[2023-04-13] MEDS ORDERED: ePHEDrine sulfate 50 MG/ML AMP IV PRN (15:49)
--- NOTE | 2023-04-13 15:55 | History & Physical Bridge Note ---
Date of Service April 13, 2023 History & Physical Bridge Note I have examined the patient, reviewed the History & Physical and in the interval since the performance of the History & Physical I have noted the following changes of clinical significance: no changes noted. Met with patient, we had a lengthy discussion regarding risks/benefits of right hip cephalomedullary nail. These include: infection, neurovascular injury, dvt, nonunion, malunion, hardware failure and future surgery. After reviewing she has elected to proceed with surgery and written consent was obtained.
[2023-04-13] MEDS ORDERED: ceFAZolin 330 MG/ML 1 GM VIAL ONE ×2 (16:42)
[2023-04-13] MEDS ORDERED: ceFAZolin 2000MG 2,000 MG/15 ML SYR IV ONE (16:43)
[2023-04-13] MEDS ORDERED: MoRPHine SULFATE 2 MG/ML CARP ONE (16:46)
[2023-04-13] MEDS ORDERED: METOPROLOL TARTRATE 1 MG/ML VIAL IV ONE (16:56)
--- NOTE | 2023-04-13 17:20 | Post Operative Brief Note ---
Immediate Post Op Note v1 Date of Surgery April 13, 2023 Pre & Post Diagnosis Operation Date: 04/13/23 07:00 Pre-Op Diagnosis: Intertrochanteric fracture of right hip Post-Op Diagnosis: Intertrochanteric fracture of right hip I identified the patient and participated in the time-out.: Yes Procedure Operation Date: 04/13/23 07:00 Actual Procedures p Right Hip Cephalomedullary Nail(Right) - Mustapha Gaspar DO Surgeon Mustapha Gaspar, Supervisor [employer] none Estimated Blood Loss 50 Findings Consistent with Post-Op Diagnosis see dictation Drains Aguirre Catheter Complications none
[2023-04-13] MEDS ORDERED: HYDROmorphone INJ 1 MG/ML SYRINGE IV PRN (17:36)
[2023-04-13] MEDS: fentaNYL citrate PF 100 MCG/2 ML VIAL IV PRN ×2 (17:41→17:47)
--- NOTE | 2023-04-13 18:00 | Anesthesiology Progress Note ---
Date of Service April 13, 2023 Anesthesia Post Procedure Vital Signs Vital Signs: Temp Pulse Pulse Pulse Resp BP BP 04/13/23 17:45 71 19 143/74 H 04/13/23 17:35 69 21 159/84 H 04/13/23 17:55 68 19 152/79 H 04/13/23 17:28 37 C 79 13 177/85 H 04/13/23 15:00 82 04/13/23 15:45 04/13/23 15:38 36.9 C 78 20 122/61 04/13/23 15:07 37.2 C 79 16 138/69 04/13/23 10:52 37.1 C 78 18 126/72 04/13/23 07:30 04/13/23 07:31 37.1 C 73 20 162/81 H 04/13/23 07:00 70 04/13/23 04:00 36.6 C 72 18 149/72 H 04/12/23 22:01 81 04/12/23 23:23 04/12/23 22:00 37.9 C H 83 20 152/65 H 04/12/23 19:57 37 C 69 18 130/66 Pulse Ox O2 Del Method O2 Flow Rate 04/13/23 17:45 94 Nasal Cannula 2 04/13/23 17:35 96 Oxymask 7 04/13/23 17:55 94 Nasal Cannula 4 04/13/23 17:28 96 Oxymask 7 04/13/23 15:00 04/13/23 15:45 Room Air 04/13/23 15:38 93 Room Air 04/13/23 15:07 93 Room Air 04/13/23 10:52 95 Room Air 04/13/23 07:30 Room Air 04/13/23 07:31 93 Room Air 04/13/23 07:00 04/13/23 04:00 96 Nasal Cannula 2 04/12/23 22:01 04/12/23 23:23 98 Nasal Cannula 1 04/12/23 22:00 91 Nasal Cannula 2 04/12/23 19:57 95 Nasal Cannula 2 Pain Intensity Right Hip: Pain Intensity: 4 Transfer of Care Handoff Completed per policy Notes Mental Status: alert / awake / arousable Patient Amnestic to Procedure: Yes Nausea / Vomiting: adequately controlled Pain: adequately controlled Airway Patency, RR, SpO2: stable & adequate BP & HR: stable & adequate Hydration State: stable & adequate Anesthetic Complications: no major complications apparent
[2023-04-13] MEDS: SODIUM CHLORIDE 0.9% 1000ML 1,000 ML IV SCH (18:23)
--- NOTE | 2023-04-13 19:12 | Fluoroscopy Report ---
FL hip RT 2-3V CLINICAL HISTORY: RT TROCHANTERIC FEMORAL NAIL TECHNIQUE: 5 views were obtained with the C-arm in the OR with the above procedure. Total fluoroscopy time was 47.1 seconds. Radiation dose was 6.28 mGy. Comparison: Comparison is made to right hip MRI 04/11/2020 FINDINGS/IMPRESSION: Intraoperative images were obtained of right trochanteric nail placement Please correlate with intraoperative fluoroscopy and operative report. ACT 112: Negative or not required by law. Electronically signed by: Woody Hauser M.D. 04/13/2023 7:10 PM
[2023-04-13] MEDS: APIXABAN 2.5 MG TAB PO SCH (20:31)
[2023-04-13] MEDS: VENLAFAXINE HCL XR 150 MG CAPXR PO SCH (20:32)
--- NOTE | 2023-04-13 22:29 | Operative Report ---
Post Operative Report Pre & Post Diagnosis Operation Date: 04/13/23 07:00 Pre-Op Diagnosis: Intertrochanteric fracture of right hip Post-Op Diagnosis: Intertrochanteric fracture of right hip I identified the patient and participated in the time-out.: Yes Procedure Operation Date: 04/13/23 07:00 Actual Procedures p Right Hip Cephalomedullary Nail(Right) - Mustapha Gaspar DO Surgeon Mustapha Gaspar DO [employer] none Estimated Blood Loss 50 Findings Consistent with Post-Op Diagnosis Right intertrochanteric femur fracture Specimens None Complications None Indications 72-year-old female presented after sustaining a ground-level fall resulting in a n isolated right trochanter fracture. She noted pain and inability to ambulate. We ultimately obtained an MRI to evaluate for occult extension into the intertrochanteric region of the femur. The MRI did come back showing extension of the fracture into the intertrochanteric area of the femur. I met with the patient preoperatively. We had a lengthy discussion regarding risk benefits potential locations of the right hip cephalomedullary nail for her intertrochanteric femur fracture. These risk include not limited to: Infection, neurovascular injury, DVT, nonunion, malunion, hardware failure and need for future surgery. After hearing she elected to proceed with surgical intervention and written consent was obtained. Description of Procedure Implants: Synthes TFNA 10 mm x 170 mm 130 degree, 95 mm fenestrated screw, 5 mm x [address] star [address] locking screw. Patient was prepped identified in the preoperative holding area and the right lower extremity was marked. She was then taken to the operative suite where she received antibiotics per protocol as well as general anesthesia. She was then transferred over to the manual fracture table. Her fracture was noted to be nondisplaced in the intertrochanteric region. She was positioned using the assistance of C-arm fluoroscopy. When she was in appropriate position she was then prepped and draped in the standard orthopedic fashion a timeout was then performed. A 3 cm incision just superior to the tip the trochanter was made through skin and subcutaneous tissue and gluteal fascia. Threaded guidewire was then inserted into the tip the trochanter and advanced into the medullary canal. Its position was confirmed on AP and lateral fluoroscopy. Proximal reamer was then used to open the medullary canal. A 10 mm x 170 mm TFNA was then inserted. Once was in the appropriate position incision was made through for the lag screw through the skin subcutaneous tissue and IT band fascia. Guide was then advanced down to bone. Threaded guidewire was then inserted through the lateral cortex into the center of the femoral head and a center center position just beneath the subchondral bone. Length was then measured a tapered reamer was then set at 95 mm. Lateral cortical reamer was then used followed by a tapered reamer. A 95 mm fenestrated screw was then inserted. Screw was then locked statically at the proximal aspect and a guidewire was then removed. Incision was then made for the distal lag screw. Drill was used to drill bicortically and a 36 mm locking screw was then inserted. He was noted to have good bicortical purchase. Proximal outrigger was then removed. Final radiographs were then obtained demonstrating good position of the implant and stable position of the fracture. Was then copiously irrigated. The fascia was closed using 0 Vicryl followed by 2-0 Vicryl for subcutaneous tissue and david for skin. Sterile dressings of Xeroform 4 x 4 gauze and Tegaderm were applied. The patient tolerated procedure well was taken recovery room in hemodynamically stable condition. I attest to the content of the Intraoperative Record and any orders documented therein. Any exceptions are noted below.
[2023-04-14] MEDS: ceFAZolin 2000MG 2,000 MG/15 ML SYR IV SCH ×2 (00:22→08:32)
[2023-04-14] MEDS: ACETAMINOPHEN 325 MG TAB PO PRN ×3 (00:25→22:03)
[2023-04-14] MEDS ORDERED: INSULIN ASPART PER UNIT CHARGE SC SCH (02:00)
[2023-04-14] MEDS: LEVOTHYROXINE SODIUM 75 MCG TABLET PO SCH (05:05)
[2023-04-14] MEDS: SODIUM CHLORIDE 0.9% 1000ML 1,000 ML IV SCH (05:49)
--- NOTE | 2023-04-14 08:32 | Pharmacy Report ---
Pharmacy Glycemic Short Note 2 - Date of Service April 14, 2023 - Glycemic Short BSG Results (Last 24 hours): 04/13/23 04/13/23 04/13/23 08:14 11:49 15:44 Glucose 142 H POC Glucose 161 H 98 04/13/23 04/13/23 04/14/23 17:30 19:53 01:57 Glucose POC Glucose 111 H 155 H 296 H 04/14/23 07:57 Glucose POC Glucose 191 H OUTPATIENT ANTIDIABETIC REGIMEN: * Levemir 22 units SC HS * Novolin R with meals (SSI) * Metformin 1 gm PO BID * HbA1C = 10.2% (04/05/23) ASSESSMENT: 04/14/23 * POD #1 s/p right hip nailing, received 8 mg IV dexamethasone in OR * BSGs trended up overnight in light of steroids, will tighten Novolog today, but anticipate needs returning to prior ones with no ongoing steroids ordered 04/13/23 * BSGs have been reasonably well-controlled over past 48 hours * Patient NPO today for planned OR for right trochanteric femoral nailing this afternoon * Will make postoperative adjustments as needed 04/11/23 * BSGs much improved today - will decrease basal today in order to decrease likelihood of hypoglycemia * Remains on ceftriaxone for E.coli bacteremia * Surgery anticipated, but on hold at this time due to thrombocytopenia 04/10/23 * 72 yo female, Type 2 DM, recent admission last week, s/p fall d/t lightheadedness, admitted with hip fracture. Pt known to glycemic service from last admission. * Will begin with similar insulin dosing as last week, with higher goal range and conservative titration to prevent hypoglycemia. PLAN FOR INPATIENT GLYCEMIC CONTROL: * Hold outpatient oral diabetes medications * Basal insulin * Lantus 8-12 units SC BID (see EHR for details) * Bolus insulin * NovoLog per scale ACHS or Q6hrs while NPO * Goal Range: Low 120 mg/dL - High 150 mg/dL * Correction Factor: 25 mg/dL/unit * Nutritional / Prandial insulin per carb ratio of 1 unit per 8 grams CHO consumed
--- NOTE | 2023-04-14 08:41 | Hospitalist Progress Note ---
Date of Service April 14, 2023 Assessment & Plan (1) Closed fracture of right hip: Plan: Patient presents from home with mechanical fall. CT head, CT cervical spine negative for acute findings. Pelvic x-ray concerning for fracture. Hip CT shows confirmation of acute, comminuted and displaced greater trochanteric fracture. Discussed with orthopedics(Dr. Gaspar); recommends to obtain MRI to evaluate for intertrochanteric extension. MRI hip was done ; acute intertrochanteric fracture of right femur. Displaced fracture involving the greater trochanteric with a nondisplaced intertrochanteric component which nearly extends to the lesser trochanter. Discussed with orthopedics-plans for surgery 04/13 Discussed with oncology( Dr. Keon Pa) who is her hematology/oncology. 1 U pRBC and 2 PLT given 04/12 OK to proceed to surgery without further transfusions. she is POD 1-Status post right hip cephalomedullary nail by Dr. Gaspar. She is recovering well has ice in her hip and is working with physical therapy. Continue wound care and activity restrictions per Ortho. (2) E coli bacteremia: Plan: Urine culture and blood culture from last admission consistent with E. coli which is pansensitive. Patient was discharged home on Augmentin. Changed to ceftriaxone while inpatient. Last dose of antibiotic to be on April 18 to complete 14-day course. Repeat blood cultures negative so far. (3) Myelodysplastic syndrome: Plan: this is the cause of her decreased cell lines. she is status post stem cell transplant in August 2021. recent biopsy shows recurrence of disease. Followup with Heme/Onc. (4) Thrombocytopenia: Plan: Platelet transfusion preop per recommendations above. CBC reviewed with patient this morning. Plan Chronic conditions: Type 2 diabetes mellitus; started on Lantus 20 units twice daily and NovoLog. Pharmacy glycemic consult. At her inpatient goal. History of hypothyroidism. Stable, continue Synthroid. Hyperlipidemia. Stable, on statin. Continue Lipitor History of coronary artery disease. Stable, continue statin, Imdur and metoprolol.. Hypertension. At goal, on metoprolol and imdur with holding parameters. Gastroesophageal reflux disease:Controlled, on omeprazole. Deep venous thrombosis prophylaxis. Sequential compression devices as the patient has thrombocytopenia. Full code DVT prophylaxis SCDs. Dispo-per PT/OT and ortho Radha Feliciano DO [facility] Hospitalist Admission and Anticipated Discharge Date Admission Date: April 10, 2023 Subjective 72-year-old female presented with closed fracture of right hip. She has a history of myelodysplastic syndrome and chronic thrombocytopenia. She is currently undergoing transfusion today including 1 pack of red blood cells and 2 packs of platelets. Denies SOB or pain POD#1 today and doing well Aguirre in place, will remove. Labwork reviewed with her from this morning. Review of Systems Review of Systems: All systems reviewed negative except as indicated above. Physical Exam Physical Exam: CONSTITUTIONAL: WNWD, vitals as above, generally well-appearing, NAD EYES: normal conjunctivae, no scleral icterus ENT: external ear and nose normal, MMM NECK: trachea midline RESPIRATORY: clear to auscultation bilaterally, no crackles, rales or wheezes, normal respiratory effort CARDIOVASCULAR: regular rate and rhythm, S1 and 2 heard without murmurs, gallops or rubs, no JVD, no peripheral edema CHEST: inspection of chest was normal GASTROINTESTINAL: soft, nontender, ND, no guarding MUSCULOSKELETAL: strength 5/5 throughout, head is normocephalic and atraumatic SKIN: warm and dry, Right hip surgical dressing that is clean dry and intact. NEUROLOGIC: CN 2-12 grossly intact, no sensory deficit, normal cognition, normal speech, no tremor PSYCHIATRIC: alert cooperative and oriented to person, place and time. Results & Data Results & Data Vital Signs (Past 12 Hours) Vital Signs Temp Pulse Pulse Resp BP Pulse Ox O2 Del Method 04/14/23 08:25 36.5 C 76 17 139/73 93 Room Air 04/13/23 21:59 78 04/14/23 02:00 36.7 C 73 18 135/78 94 Nasal Cannula 04/13/23 23:03 36.5 C 77 18 144/78 H 93 Nasal Cannula O2 Flow Rate 04/14/23 08:25 04/13/23 21:59 04/14/23 02:00 22 04/13/23 23:03 2 Laboratory Results Short CBC 04/14/23 Range/Units 09:32 WBC 6.01 (4.8-10.8) K/ul Hgb 7.8 L (12.0-16.0) g/dl Hct 22.5 L (37.0-47.0) % Plt Count 56 L (130-400) K/uL BMP 04/14/23 09:32 Sodium 137 Potassium 4.3 Chloride 103 Carbon Dioxide 27 BUN 15 Creatinine 0.83 Glucose 195 H Calcium 8.6 Medications Administered Current Inpatient Medications Acetaminophen (Acetaminophen 325 Mg Tab) 650 mg PO Q4H PRN PRN Reason: Pain or Fever Stop: 05/10/23 10:06 Last Admin: 04/14/23 09:04 Dose: 650 mg Acyclovir (Acyclovir 400 Mg Tab) 800 mg PO BID MARIA GUADALUPE Stop: 05/10/23 10:29 Last Admin: 04/14/23 09:03 Dose: 800 mg Apixaban (Apixaban 2.5 Mg Tab) 2.5 mg PO BID MARIA GUADALUPE Stop: 05/13/23 20:59 Last Admin: 04/14/23 09:02 Dose: 2.5 mg Atorvastatin Calcium (Atorvastatin 40 Mg Tab) 40 mg PO DAILY MARIA GUADALUPE Stop: 05/10/23 10:06 Last Admin: 04/14/23 09:03 Dose: 40 mg Dextrose (Dextrose 50% 50 Ml Syringe) 25 - 50 ml IV UD PRN; Protocol PRN Reason: Hypoglycemia Protocol Stop: 05/10/23 10:06 Glucagon (Glucagon For Inj 1 Mg Vial) 1 mg SQ UD PRN; Protocol PRN Reason: Hypoglycemia Protocol Stop: 05/10/23 10:06 Glucose (Glucose 10 Tab/Tube) 4 - 8 tab PO UD PRN; Protocol PRN Reason: Hypoglycemia Treatment Stop: 05/10/23 10:06 Glucose (Glucose 40% Gel 15 Gm Tube) 15 - 30 gm PO UD PRN; Protocol PRN Reason: Hypoglycemia Protocol Stop: 05/10/23 10:06 Heparin Sodium (Porcine) (Heparin 100 Unit/Ml 5ml Flush) 5 ml FLUSH PRN PRN PRN Reason: Flush Stop: 05/11/23 23:10 Last Admin: 04/12/23 06:37 Dose: 5 ml Ceftriaxone Sodium 2,000 mg/ (Dextrose) 70 mls @ 100 mls/hr IV Q24H MARIA GUADALUPE; Protocol Stop: 04/24/23 10:59 Last Infusion: 04/14/23 12:06 Dose: Infused Sodium Chloride (Nss 1000ml) 1,000 mls @ 80 mls/hr IV .[id number] MARIA GUADALUPE Stop: 04/14/23 18:29 Last Admin: 04/14/23 05:49 Dose: 80 mls/hr Insulin Aspart (Insulin Aspart Per Unit Charge) 0 units SC ACHS [facility]; Protocol Stop: 05/10/23 11:29 Last Admin: 04/14/23 12:52 Dose: 7 units Insulin Glargine (Lantus Per Unit Charge) 0 units SC BID [facility]; Protocol Stop: 05/14/23 08:59 Isosorbide Mononitrate (Isosorbide [place] Extended Rel 30 Mg Tabcr) 30 mg PO QAOK [facility] [place] Stop: 05/10/23 10:06 Last Admin: 04/14/23 09:12 Dose: 30 mg Levothyroxine Sodium (Levothyroxine Sodium 75 Mcg Tablet) [facility] Stop: 05/10/23 10:06 Last Admin: 04/14/23 05:05 Dose: 75 mcg Metoprolol Succinate (Metoprolol Succ 50mg Ext Rel Tab) 50 mg PO [facility] Stop: 05/10/23 10:06 Last Admin: 04/14/23 09:03 Dose: 50 mg Miscellaneous (Carbohydrates For Hypoglycemia ) 15 - 30 gm PO UD PRN PRN Reason: Hypoglycemia Protocol Stop: 05/10/23 10:06 Miscellaneous Information (Pharmacy Glycemic Mgmt Consult) 1 each N/A UD PRN PRN Reason: Consult Stop: 05/10/23 10:06 Ondansetron HCl (Ondansetron Inj 2 Mg/Ml 2 Ml Vial) 4 mg IV Q6H PRN PRN Reason: Nausea And Vomiting Stop: 05/10/23 11:39 Last Admin: 04/10/23 11:53 Dose: 4 mg Oxybutynin Chloride (Oxybutynin Chloride Xl 5 Mg Tabcr) 5 mg PO DAILY [facility] Stop: 05/10/23 10:29 Last Admin: 04/14/23 09:02 Dose: 5 mg Pantoprazole Sodium (Pantoprazole 40 Mg Tab) 40 mg PO DAILY [facility] Stop: 05/10/23 10:29 Last Admin: 04/14/23 09:03 Dose: 40 mg Polyethylene Glycol (Polyethylene (Miralax) 17 Gm Pack) 17 gm PO DAILY [facility] Stop: 05/10/23 10:14 Last Admin: 04/14/23 09:04 Dose: 17 gm Tramadol HCl (Tramadol Hcl 50 Mg Tablet) 50 mg PO Q6H PRN PRN Reason: Pain Stop: 05/10/23 10:06 Last Admin: 04/12/23 05:50 Dose: 50 mg Venlafaxine HCl (Venlafaxine Hcl Xr 150 Mg Capxr) 150 mg PO HS [facility] Stop: 05/10/23 20:59 Last Admin: 04/13/23 20:32 Dose: 150 mg Vibegron (Vibegron 75 Mg Tab) 75 mg PO DAILY [facility]; Protocol Stop: 05/10/23 10:29 Last Admin: 04/14/23 09:03 Dose: 75 mg Vitamin D (Cholecalciferol 5,000 Units 125 Mcg Tab) 5,000 units PO QAOK [facility] [place] Stop: 05/10/23 10:06 Last Admin: 04/14/23 09:03 Dose: 5,000 units (1) Closed fracture of right hip Encounter type: initial encounter Qualified Code(s): S72.001A - Fracture of unspecified part of neck of right femur, initial encounter for closed fracture
[2023-04-14] MEDS ORDERED: LANTUS PER UNIT CHARGE SC SCH (09:00)
[2023-04-14] MEDS: OXYBUTYNIN CHLORIDE XL 5 MG TABCR PO SCH (09:02)
[2023-04-14] MEDS: APIXABAN 2.5 MG TAB PO SCH ×2 (09:02→20:34)
[2023-04-14] MEDS: PANTOprazole 40 MG TAB PO SCH (09:03)
[2023-04-14] MEDS: METOPROLOL SUCC 50MG EXT REL TAB PO SCH (09:03)
[2023-04-14] MEDS: VIBEGRON 75 MG TAB PO SCH (09:03)
[2023-04-14] MEDS: ACYCLOVIR 400 MG TAB PO SCH ×2 (09:03→20:34)
[2023-04-14] MEDS: ATORVASTATIN 40 MG TAB PO SCH (09:03)
[2023-04-14] MEDS: CHOLECALCIFEROL 5,000 UNITS 125 MCG TAB PO SCH (09:03)
[2023-04-14] MEDS: POLYETHYLENE (MIRALAX) 17 GM PACK PO SCH (09:04)
[2023-04-14] MEDS: ISOSORBIDE MONO EXTENDED REL 30 MG TABCR PO SCH (09:12)
[2023-04-14] MEDS: INSULIN ASPART PER UNIT CHARGE SC SCH ×4 (09:16→20:35)
[2023-04-14 10:07] LABS: BUN Creatinine Ratio 18.1 (10-20); Calcium 8.6 mg/dl (8.6-10.3); Creatinine Clr Calc Pharmacy 63.6 ml/min; Est GFR (African American) 80.5 ml/min; Est GFR (Non-African American) 69.5 ml/min; Potassium 4.3 mmol/L (3.5-5.1)
[2023-04-14 10:22] LABS: Hematocrit (blood only) 22.5 % (37.0-47.0); Hemoglobin 7.8 g/dl (12.0-16.0); Mean Corpuscular Hemoglobin 35.9 pg (25.0-34.0); Mean Corpuscular Hgb Conc 34.7 g/dL (32.0-36.0); Mean Corpuscular Volume 103.7 fL (80.0-100.0); Mean Platelet Volume 9.9 fL (9.4-12.4); Platelet Count 56 K/uL (130-400); RDW Coefficient of Variation 17.6 % (11.5-14.5); RDW Standard Deviation 65.9 fL (36.4-46.3); Red Blood Count 2.17 M/uL (4.20-5.40); White Blood Count 6.01 K/ul (4.8-10.8)
[2023-04-14 10:29] LABS: Dohle Bodies 1+; Eosinophils # (auto) 0.01 K/uL (0-0.50); Eosinophils % (auto) 0.2 %; Hypogranular Neutrophils 1+; Lymphocytes # (auto) 1.75 K/uL (1.2-3.4); Lymphocytes % (auto) 29.1 %; Monocytes # (auto) 0.32 K/uL (0.11-0.59); Monocytes % (auto) 5.3 %; Neutrophils # (auto) 3.93 K/uL (1.40-6.50); Neutrophils % (auto) 65.4 %
[2023-04-14] MEDS: cefTRIAXone SODIUM 2,000 MG in DEXTROSE 5% 50 ML IV SCH (11:18)
--- NOTE | 2023-04-14 14:39 | Orthopedic Progress Note ---
Date of Service April 14, 2023 Assessment & Plan (1) Intertrochanteric fracture of right hip: Plan: Postop day 1 status post right TFN. PT/OT protocols. Weightbearing as tolerated right lower extremity. DVT prophylaxis-apixaban 2-1/2 mg p.o. twice daily, SCDs, KELLY duncan Pain management as written. Hemoglobin 7.5 today. Transfuse as necessary. Platelet count 56k. DC planning-planning for [facility] facility when stable for discharge Admission and Anticipated Discharge Date Admission Date: April 10, 2023 Subjective Postop day 1 Patient sitting in her chair at the bedside. States that she is feeling tired at this point has been up quite a bit today. Planning to get back into bed shortly. Pain is currently controlled. States that she has discomfort getting in and out of bed of which we discussed was the norm. No other new complaints. Physical Exam Physical Exam: Dressings are intact. She has some scant drainage noted on the proximal dressing. No erythema surrounding the dressings. Mild swelling over the thigh. Thigh is soft and nontender. Calves are soft nontender. Neurovascular intact. Toes are mobile. She has good dorsiflexion and plantarflexion of the right foot Results & Data Vital Signs (Past 12 Hours) Vital Signs Temp Pulse Resp BP Pulse Ox O2 Del Method 04/14/23 12:13 36.6 C 68 20 132/70 92 Room Air 04/14/23 08:25 36.5 C 76 17 139/73 93 Room Air Laboratory Results Laboratory Results WBC 6.01 K/ul (4.8-10.8) 04/14/23 09:32 RBC 2.17 M/uL (4.20-5.40) L 04/14/23 09:32 Hgb 7.8 g/dl (12.0-16.0) L 04/14/23 09:32 Hct 22.5 % (37.0-47.0) L 04/14/23 09:32 MCV 103.7 fL (80.0-100.0) H 04/14/23 09:32 MCH 35.9 pg (25.0-34.0) H 04/14/23 09:32 MCHC 34.7 g/dL (32.0-36.0) 04/14/23 09:32 RDW Std Deviation 65.9 fL (36.4-46.3) H 04/14/23 09:32 RDW Coeff of Evin 17.6 % (11.5-14.5) H 04/14/23 09:32 Plt Count 56 K/uL (130-400) L 04/14/23 09:32 MPV 9.9 fL (9.4-12.4) 04/14/23 09:32 Immature Gran % (Auto) 0.0 % 04/14/23 09:32 Neut % (Auto) 65.4 % 04/14/23 09:32 Lymph % (Auto) 29.1 % 04/14/23 09:32 Elmore % (Auto) 5.3 % 04/14/23 09:32 Eos % (Auto) 0.2 % 04/14/23 09:32 Baso % (Auto) 0.0 % 04/14/23 09:32 Neut # (Auto) 3.93 K/uL (1.40-6.50) 04/14/23 09:32 Lymph # (Auto) 1.75 K/uL (1.2-3.4) 04/14/23 09:32 Elmore # (Auto) 0.32 K/uL (0.11-0.59) 04/14/23 09:32 Eos # (Auto) 0.01 K/uL (0-0.50) 04/14/23 09:32 Baso # (Auto) 0.00 K/uL (0-0.2) 04/14/23 09:32 Immature Gran # (Auto) 0.00 K/uL (0.01-0.20) L 04/14/23 09:32 Neutrophils % (Manual) 81 % 04/10/23 06:30 Lymphocytes % (Manual) 13 % 04/10/23 06:30 Monocytes % (Manual) 2 % 04/10/23 06:30 Eosinophils % (Manual) 2 % 04/10/23 06:30 Basophils % (Manual) 2 % 04/10/23 06:30 Blast Cells % (Manual) 1 % 04/10/23 06:30 Neutrophils # (Manual) 3.91 K/uL (1.40-6.50) 04/10/23 06:30 Total Absolute Neuts 3.91 K/uL (1.4-6.5) 04/10/23 06:30 Lymphocytes # (Manual) 0.63 K/uL (1.2-3.4) L 04/10/23 06:30 Total Abs Lymphocytes 0.63 K/uL (1.2-3.4) L 04/10/23 06:30 Monocytes # (Manual) 0.10 K/uL (0.11-0.59) L 04/10/23 06:30 Eosinophils # (Manual) 0.10 K/uL (0-0.50) 04/10/23 06:30 Basophils # (Manual) 0.10 K/uL (0-0.2) 04/10/23 06:30 Blast Cells # (Man) 0.05 K/uL (0-0) H 04/10/23 06:30 Hypogranular Neuts 1+ 04/14/23 09:32 Blood Smear Review Cancelled 04/11/23 11:21 Dohle Bodies 1+ 04/14/23 09:32 Platelet Estimate Signific. Decreased (Normal) L 04/12/23 06:32 Polychromasia 1+ 04/11/23 11:21 Anisocytosis Present 04/10/23 06:30 Macrocytosis Present 04/11/23 11:21 Sodium 137 mmol/L (136-145) 04/14/23 09:32 Potassium 4.3 mmol/L (3.5-5.1) 04/14/23 09:32 Chloride 103 mmol/L (98-107) 04/14/23 09:32 Carbon Dioxide 27 mmol/L (21-32) 04/14/23 09:32 Anion Gap 7 (3-11) 04/14/23 09:32 BUN 15 mg/dl (6-23) 04/14/23 09:32 Creatinine 0.83 mg/dl (0.6-1.2) 04/14/23 09:32 Est Cr Clr Drug Dosing 63.6 ml/min 04/14/23 09:32 Est GFR ( Amer) 80.5 ml/min 04/14/23 09:32 Est GFR (Non-Af Amer) 69.5 ml/min 04/14/23 09:32 BUN/Creatinine Ratio 18.1 (10-20) 04/14/23 09:32 Glucose 195 mg/dl (70-99(Fasting)) H 04/14/23 09:32 POC Glucose 202 mg/dl (70-99) H 04/14/23 11:52 Calcium 8.6 mg/dl (8.6-10.3) 04/14/23 09:32 Magnesium 1.3 mg/dl (1.7-2.4) L 04/10/23 06:30 Total Bilirubin 0.4 mg/dl (0.2-1.0) 04/12/23 06:32 Direct Bilirubin 0.1 mg/dl (0-0.2) 04/10/23 06:30 AST 13 U/L (13-39) 04/12/23 06:32 ALT 14 U/L (7-52) 04/12/23 06:32 Alkaline Phosphatase 66 U/L (34-104) 04/12/23 06:32 Troponin I High Sens 4.7 pg/ml (0-14) 04/10/23 06:30 Total Protein 7.3 gm/dl (6.0-8.3) 04/12/23 06:32 Albumin 3.1 gm/dl (3.4-5.0) L 04/12/23 06:32 Globulin 4.2 gm/dl (2.5-4.0) H 04/12/23 06:32 Albumin/Globulin Ratio 0.7 (0.9-2) L 04/12/23 06:32 25-OH Vitamin D Total 25.8 ng/ml (30-100) L 04/14/23 09:32 Procalcitonin 0.54 ng/ml (0-0.5) H 04/10/23 06:30 Urine Color Yellow 04/10/23 Unknown Urine Appearance Clear (Clear) 04/10/23 Unknown Urine pH 6.0 (4.5-7.5) 04/10/23 Unknown Ur Specific [place] 1.013 (1.000-1.030) 04/10/23 Unknown Urine Protein 1+ (Negative) H 04/10/23 Unknown Urine Glucose (UA) Negative (Negative) 04/10/23 Unknown Urine Ketones Negative (Negative) 04/10/23 Unknown Urine Blood 1+ (Negative) H 04/10/23 Unknown Urine Nitrite Negative (Negative) 04/10/23 Unknown Urine Bilirubin Negative (Negative) 04/10/23 Unknown Urine Urobilinogen Negative (Negative) 04/10/23 Unknown Ur Leukocyte Esterase Trace (Negative) H 04/10/23 Unknown Urine WBC (Auto) 10-30 /hpf (0-5) H 04/10/23 Unknown Urine RBC (Auto) 0-4 /hpf (0-4) 04/10/23 Unknown U Hyaline Cast (Auto) 1-5 /lpf (0-5) 04/10/23 Unknown U Epithel Cells (Auto) 20-30 /lpf (0-5) H 04/10/23 Unknown Urine Bacteria (Auto) Negative (Negative) 04/10/23 Unknown SARS-CoV-2, RNA, NAAT NEGATIVE (NEGATIVE) 04/10/23 07:46 Blood Type A Positive 04/11/23 14:05 Antibody Screen NEGATIVE 04/11/23 14:05 Crossmatch See Detail 04/11/23 14:05 Impressions Hip MRI 04/11/23 10:47 MRI of the right hip without contrast CLINICAL HISTORY: trochanter fracture COMPARISON STUDY: Pelvis and right hip radiographs and CT of the right hip April 10, 2023. TECHNIQUE: Utilizing a 1.5 Latasha magnet and dedicated coil, multiplanar, multi echo imaging of the right hip was performed without intra-articular or intravenous contrast. FINDINGS: Note is again made of an acute displaced fracture of the greater trochanter of the right femur, as shown on CT. In addition, there is an intertrochanteric component of the fracture which nearly extends to the lesser trochanter. This is not evident by CT. No additional acute fractures are present. No suspicious marrow replacement. No evidence for avascular necrosis. Soft tissue edema adjacent to the right hip is present. A Aguirre balloon within the bladder is incidentally noted. Sacroiliac joints and symphysis pubis are incidentally noted. A moderate amount of stool within the distal colon and rectum is present. IMPRESSION: Acute intertrochanteric fracture of the right femur, as described above. Displaced fracture involving the greater trochanter with a nondisplaced intertrochanteric component which nearly extends to the lesser trochanter. ACT 112: Negative or not required by law. Electronically signed by: Aureliano Najera M.D. 04/11/2023 9:59 AM Hip X-Ray 04/13/23 00:00 FL hip RT 2-3V CLINICAL HISTORY: RT TROCHANTERIC FEMORAL NAIL TECHNIQUE: 5 views were obtained with the C-arm in the OR with the above procedure. Total fluoroscopy time was 47.1 seconds. Radiation dose was 6.28 mGy. Comparison: Comparison is made to right hip MRI 04/11/2020 FINDINGS/IMPRESSION: Intraoperative images were obtained of right trochanteric nail placement Please correlate with intraoperative fluoroscopy and operative report. ACT 112: Negative or not required by law. Electronically signed by: Woody Hauser M.D. 04/13/2023 7:10 PM
[2023-04-14] MEDS: traMADol HCL 50 MG TABLET PO PRN ×2 (17:09→22:28)
[2023-04-14] MEDS: LANTUS PER UNIT CHARGE SC SCH (20:33)
[2023-04-14] MEDS: VENLAFAXINE HCL XR 150 MG CAPXR PO SCH (20:34)
[2023-04-15] MEDS: LEVOTHYROXINE SODIUM 75 MCG TABLET PO SCH (06:15)
[2023-04-15] MEDS: traMADol HCL 50 MG TABLET PO PRN (06:17)
[2023-04-15 07:41] LABS: Hematocrit (blood only) 21.7 % (37.0-47.0); Hemoglobin 7.3 g/dl (12.0-16.0); Mean Corpuscular Hemoglobin 35.1 pg (25.0-34.0); Mean Corpuscular Hgb Conc 33.6 g/dL (32.0-36.0); Mean Corpuscular Volume 104.3 fL (80.0-100.0); Mean Platelet Volume 10.2 fL (9.4-12.4); Platelet Count 42 K/uL (130-400); RDW Coefficient of Variation 17.4 % (11.5-14.5); RDW Standard Deviation 64.5 fL (36.4-46.3); Red Blood Count 2.08 M/uL (4.20-5.40)
[2023-04-15 07:59] LABS: BUN Creatinine Ratio 21.3 (10-20); Calcium 8.7 mg/dl (8.6-10.3); Est GFR (African American) 84.2 ml/min; Est GFR (Non-African American) 72.6 ml/min; Potassium 3.7 mmol/L (3.5-5.1)
[2023-04-15] MEDS: INSULIN ASPART PER UNIT CHARGE SC SCH ×4 (08:45→21:08)
[2023-04-15] MEDS: LANTUS PER UNIT CHARGE SC SCH ×2 (08:48→21:07)
[2023-04-15] MEDS: ATORVASTATIN 40 MG TAB PO SCH (08:50)
[2023-04-15] MEDS: POLYETHYLENE (MIRALAX) 17 GM PACK PO SCH (08:50)
[2023-04-15] MEDS: APIXABAN 2.5 MG TAB PO SCH ×2 (08:50→21:07)
[2023-04-15] MEDS: ACYCLOVIR 400 MG TAB PO SCH ×2 (08:50→21:06)
[2023-04-15] MEDS: CHOLECALCIFEROL 5,000 UNITS 125 MCG TAB PO SCH (08:51)
[2023-04-15] MEDS: ISOSORBIDE MONO EXTENDED REL 30 MG TABCR PO SCH (08:51)
[2023-04-15] MEDS: VIBEGRON 75 MG TAB PO SCH (08:52)
[2023-04-15] MEDS: PANTOprazole 40 MG TAB PO SCH (08:52)
[2023-04-15] MEDS: METOPROLOL SUCC 50MG EXT REL TAB PO SCH (08:52)
[2023-04-15] MEDS: OXYBUTYNIN CHLORIDE XL 5 MG TABCR PO SCH (08:52)
--- NOTE | 2023-04-15 10:17 | Hospitalist Progress Note ---
Date of Service April 15, 2023 Assessment & Plan (1) Closed fracture of right hip: Plan: Patient presents from home after a mechanical fall. CT head, CT cervical spine negative for acute findings. Pelvic x-ray concerning for fracture. Hip CT shows confirmation of acute, comminuted and displaced greater trochanteric fracture. Discussed with orthopedics(Dr. Gaspar); recommends to obtain MRI to evaluate for intertrochanteric extension. MRI hip was done ; acute intertrochanteric fracture of right femur. Displaced fracture involving the greater trochanteric with a nondisplaced intertrochanteric component which nearly extends to the lesser trochanter. Discussed with orthopedics-plans for surgery 04/13 Discussed with oncology( Dr. Keon Pa) who is her hematology/oncology. 1 U pRBC and 2 PLT given 04/12 OK to proceed to surgery without further transfusions. she is POD 2-Status post right hip cephalomedullary nail by Dr. Gaspar. She is recovering well has ice in her hip and is working with physical therapy. Continue wound care and activity restrictions per Ortho. Expected post op anemia, will transfuse pRBC if Hb<7. CBC in am. (2) E coli bacteremia: Plan: Urine culture and blood culture from last admission consistent with E. coli which is pansensitive. Patient was discharged home on Augmentin. Changed to ceftriaxone while inpatient. Last dose of antibiotic to be on April 18 to complete 14-day course. Repeat blood cultures negative (3) Myelodysplastic syndrome: Plan: this is the cause of her decreased cell lines. she is status post stem cell transplant in August 2021. recent biopsy shows recurrence of disease. Followup with Heme/Onc. Will need an appointment scheduled with Dr. Aguero prior to discharge. She is transitioning care from her oncologist at [facility] [place] [facility] to Dr. Aguero. (4) Thrombocytopenia: Plan: Platelet transfusion preop per recommendations above. CBC reviewed with patient this morning. Plan Chronic conditions: Type 2 diabetes mellitus; started on Lantus 20 units twice daily and NovoLog. Pharmacy glycemic consult. At her inpatient goal. History of hypothyroidism. Stable, continue Synthroid. Hyperlipidemia. Stable, on statin. Continue Lipitor History of coronary artery disease. Stable, continue statin, Imdur and metoprolol.. Hypertension. At goal, on metoprolol and imdur with holding parameters. Gastroesophageal reflux disease:Controlled, on omeprazole. Deep venous thrombosis prophylaxis. Sequential compression devices as the patient has thrombocytopenia. Full code DVT prophylaxis SCDs. Dispo-per PT/OT and ortho I spent a total [id number] coordinating, documenting, and providing care for this patient excluding time spent in the performance of separately billed services Radha Feliciano DO [facility] Hospitalist Admission and Anticipated Discharge Date Admission Date: April 10, 2023 Subjective Postop day 2 doing well today Pain is controlled daughter is present at bedside with questions about oncology outpatient care transitions and we discusssed this We reviewed labs together and discussed results. No bleeding or other issues at this time Pt denies any symptoms of low Hb. We discussed threshold to transfuse of <7 Review of Systems Review of Systems: All systems reviewed negative except as indicated above. Physical Exam Physical Exam: CONSTITUTIONAL: WNWD, vitals as above, generally well-appearing, NAD EYES: normal conjunctivae, no scleral icterus ENT: external ear and nose normal, MMM NECK: trachea midline RESPIRATORY: clear to auscultation bilaterally, no crackles, rales or wheezes, normal respiratory effort CARDIOVASCULAR: regular rate and rhythm, S1 and 2 heard without murmurs, gallops or rubs, no JVD, no peripheral edema CHEST: inspection of chest was normal GASTROINTESTINAL: soft, nontender, ND, no guarding MUSCULOSKELETAL: strength 5/5 throughout, head is normocephalic and atraumatic SKIN: warm and dry, Right hip surgical dressing that is clean dry and intact. NEUROLOGIC: CN 2-12 grossly intact, no sensory deficit, normal cognition, normal speech, no tremor PSYCHIATRIC: alert cooperative and oriented to person, place and time. Results & Data Results & Data Vital Signs (Past 12 Hours) Vital Signs Temp Pulse Resp BP Pulse Ox O2 Del Method 04/15/23 07:58 36.8 C 77 16 105/56 L 96 Room Air Laboratory Results Short CBC 04/14/23 04/15/23 Range/Units 09:32 06:45 WBC 6.01 5.20 (4.8-10.8) K/ul Hgb 7.8 L 7.3 L (12.0-16.0) g/dl Hct 22.5 L 21.7 L (37.0-47.0) % Plt Count 56 L 42 L (130-400) K/uL BMP 04/15/23 06:45 Sodium 139 Potassium 3.7 Chloride 105 Carbon Dioxide 27 BUN 17 Creatinine 0.80 Glucose 164 H Calcium 8.7 Medications Administered Current Inpatient Medications Acetaminophen (Acetaminophen 325 Mg Tab) 650 mg PO Q4H PRN PRN Reason: Pain or Fever Stop: 05/10/23 10:06 Last Admin: 04/14/23 22:03 Dose: 650 mg Acyclovir (Acyclovir 400 Mg Tab) 800 mg PO BID MARIA GUADALUPE Stop: 05/10/23 10:29 Last Admin: 04/15/23 08:50 Dose: 800 mg Apixaban (Apixaban 2.5 Mg Tab) 2.5 mg PO BID MARIA GUADALUPE Stop: 05/13/23 20:59 Last Admin: 04/15/23 08:50 Dose: 2.5 mg Atorvastatin Calcium (Atorvastatin 40 Mg Tab) 40 mg PO DAILY MARIA GUADALUPE Stop: 05/10/23 10:06 Last Admin: 04/15/23 08:50 Dose: 40 mg Dextrose (Dextrose 50% 50 Ml Syringe) 25 - 50 ml IV UD PRN; Protocol PRN Reason: Hypoglycemia Protocol Stop: 05/10/23 10:06 Glucagon (Glucagon For Inj 1 Mg Vial) 1 mg SQ UD PRN; Protocol PRN Reason: Hypoglycemia Protocol Stop: 05/10/23 10:06 Glucose (Glucose 10 Tab/Tube) 4 - 8 tab PO UD PRN; Protocol PRN Reason: Hypoglycemia Treatment Stop: 05/10/23 10:06 Glucose (Glucose 40% Gel 15 Gm Tube) 15 - 30 gm PO UD PRN; Protocol PRN Reason: Hypoglycemia Protocol Stop: 05/10/23 10:06 Heparin Sodium (Porcine) (Heparin 100 Unit/Ml 5ml Flush) 5 ml FLUSH PRN PRN PRN Reason: Flush Stop: 05/11/23 23:10 Last Admin: 04/12/23 06:37 Dose: 5 ml Ceftriaxone Sodium 2,000 mg/ (Dextrose) 70 mls @ 100 mls/hr IV Q24H MARIA GUADALUPE; Protocol Stop: 04/24/23 10:59 Last Infusion: 04/14/23 12:06 Dose: Infused Insulin Aspart (Insulin Aspart Per Unit Charge) 0 units SC ACHS [facility]; Protocol Stop: 05/10/23 11:29 Last Admin: 04/15/23 08:45 Dose: Not Given Insulin Glargine (Lantus Per Unit Charge) 0 units SC BID [facility]; Protocol Stop: 05/14/23 08:59 Last Admin: 04/15/23 08:48 Dose: 10 units Isosorbide Mononitrate (Isosorbide [place] Extended Rel 30 Mg Tabcr) 30 mg PO QAM [facility] Stop: 05/10/23 10:06 Last Admin: 04/15/23 08:51 Dose: 30 mg Levothyroxine Sodium (Levothyroxine Sodium 75 Mcg Tablet) 75 mcg PO DAILYBB [facility] Stop: 05/10/23 10:06 Last Admin: 04/15/23 06:15 Dose: 75 mcg Metoprolol Succinate (Metoprolol Succ 50mg Ext Rel Tab) 50 mg PO QAM [facility] Stop: 05/10/23 10:06 Last Admin: 04/15/23 08:52 Dose: 50 mg Miscellaneous (Carbohydrates For Hypoglycemia ) 15 - 30 gm PO UD PRN PRN Reason: Hypoglycemia Protocol Stop: 05/10/23 10:06 Miscellaneous Information (Pharmacy Glycemic Mgmt Consult) 1 each N/A UD PRN PRN Reason: Consult Stop: 05/10/23 10:06 Ondansetron HCl (Ondansetron Inj 2 Mg/Ml 2 Ml Vial) 4 mg IV Q6H PRN PRN Reason: Nausea And Vomiting Stop: 05/10/23 11:39 Last Admin: 04/10/23 11:53 Dose: 4 mg Oxybutynin Chloride (Oxybutynin Chloride Xl 5 Mg Tabcr) 5 mg PO DAILY [facility] Stop: 05/10/23 10:29 Last Admin: 04/15/23 08:52 Dose: 5 mg Pantoprazole Sodium (Pantoprazole 40 Mg Tab) 40 mg PO DAILY [facility] Stop: 05/10/23 10:29 Last Admin: 04/15/23 08:52 Dose: 40 mg Polyethylene Glycol (Polyethylene (Miralax) 17 Gm Pack) 17 gm PO DAILY [facility] Stop: 05/10/23 10:14 Last Admin: 04/15/23 08:50 Dose: 17 gm Tramadol HCl (Tramadol Hcl 50 Mg Tablet) 50 mg PO Q6H PRN PRN Reason: Pain Stop: 05/10/23 10:06 Last Admin: 04/15/23 06:17 Dose: 50 mg Venlafaxine HCl (Venlafaxine Hcl Xr 150 Mg Capxr) 150 mg PO HS [facility] Stop: 05/10/23 20:59 Last Admin: 04/14/23 20:34 Dose: 150 mg Vibegron (Vibegron 75 Mg Tab) 75 mg PO DAILY [facility]; Protocol Stop: 05/10/23 10:29 Last Admin: 04/15/23 08:52 Dose: 75 mg Vitamin D (Cholecalciferol 5,000 Units 125 Mcg Tab) [facility] [place] Stop: 05/10/23 10:06 Last Admin: 04/15/23 08:51 Dose: 5,000 units (1) Closed fracture of right hip Encounter type: initial encounter Qualified Code(s): S72.001A - Fracture of unspecified part of neck of right femur, initial encounter for closed fracture
--- NOTE | 2023-04-15 10:24 | Orthopedic Progress Note ---
Date of Service April 15, 2023 Assessment & Plan (1) Intertrochanteric fracture of right hip: Plan: Postop day 2 status post right TFN. PT/OT protocols. Weightbearing as tolerated right lower extremity. DVT prophylaxis-apixaban 2.5 mg p.o. twice daily, SCDs, KELLY kaisere Pain management as written. Hemoglobin 7.3 today. Transfuse as necessary. Platelet count 42k. DC planning-planning for assisted facility when stable for discharge. Orthopedics to sign off. Follow up as an outpatient 10-14 days post op. Instructions will be placed in the discharge instructions. Admission and Anticipated Discharge Date Admission Date: April 10, 2023 Subjective Doing well. States the right hip is "sore." Pain is controlled. Has been up to get to the bathroom. No new complaints today. Denied CP, SOB, LH while up. Physical Exam Constitutional: WD/WN, vitals as above no acute distress (Lying in bed comfortably.) Musculoskeletal: Hip: + surgical incision (right hip: dressing C/D/I lateral hip.); no deformity, no skin erythema and no ecchymosis Skin: no rashes, warm and dry Trauma: no evidence of skin trauma Neurologic: normal touch/pain/proprioception Psychiatric: A+Ox3, euthymic affect Speech: normal rate/rhythm/volume of speech Results & Data Vital Signs (Past 12 Hours) Vital Signs Temp Pulse Resp BP Pulse Ox O2 Del Method 04/15/23 07:58 36.8 C 77 16 105/56 L 96 Room Air Laboratory Results Laboratory Tests 04/15/23 04/15/23 06:45 06:45 Hgb 7.3 L Hct 21.7 L Plt Count 42 L BUN 17 Creatinine 0.80
[2023-04-15] MEDS: cefTRIAXone SODIUM 2,000 MG in DEXTROSE 5% 50 ML IV SCH (12:12)
[2023-04-15] MEDS: HEPARIN 100 UNIT/ML 5ML FLUSH FLUSH PRN (13:19)
[2023-04-15] MEDS: ACETAMINOPHEN 325 MG TAB PO PRN (19:15)
[2023-04-15] MEDS: VENLAFAXINE HCL XR 150 MG CAPXR PO SCH (21:06)
[2023-04-16] MEDS: ACETAMINOPHEN 325 MG TAB PO PRN ×2 (01:29→14:16)
[2023-04-16] MEDS: LEVOTHYROXINE SODIUM 75 MCG TABLET PO SCH (05:50)
[2023-04-16 06:41] LABS: Hematocrit (blood only) 20.1 % (37.0-47.0); Hemoglobin 6.7 g/dl (12.0-16.0); Mean Corpuscular Hemoglobin 35.3 pg (25.0-34.0); Mean Corpuscular Hgb Conc 33.3 g/dL (32.0-36.0); Mean Corpuscular Volume 105.8 fL (80.0-100.0); Mean Platelet Volume 9.6 fL (9.4-12.4); Platelet Count 34 K/uL (130-400); RDW Coefficient of Variation 17.4 % (11.5-14.5); RDW Standard Deviation 65.8 fL (36.4-46.3)
[2023-04-16] MEDS ORDERED: SODIUM CHLORIDE 0.9% 250 ML IV PRN ×2 (06:47→08:27)
[2023-04-16] MEDS: APIXABAN 2.5 MG TAB PO SCH ×2 (09:01→21:18)
[2023-04-16] MEDS: ATORVASTATIN 40 MG TAB PO SCH (09:01)
[2023-04-16] MEDS: ACYCLOVIR 400 MG TAB PO SCH ×2 (09:01→21:19)
[2023-04-16] MEDS: ISOSORBIDE MONO EXTENDED REL 30 MG TABCR PO SCH (09:02)
[2023-04-16] MEDS: METOPROLOL SUCC 50MG EXT REL TAB PO SCH (09:02)
[2023-04-16] MEDS: CHOLECALCIFEROL 5,000 UNITS 125 MCG TAB PO SCH (09:02)
[2023-04-16] MEDS: OXYBUTYNIN CHLORIDE XL 5 MG TABCR PO SCH (09:03)
[2023-04-16] MEDS: VIBEGRON 75 MG TAB PO SCH (09:03)
[2023-04-16] MEDS: PANTOprazole 40 MG TAB PO SCH (09:03)
[2023-04-16] MEDS: POLYETHYLENE (MIRALAX) 17 GM PACK PO SCH (09:12)
[2023-04-16] MEDS: INSULIN ASPART PER UNIT CHARGE SC SCH ×4 (09:12→21:12)
[2023-04-16] MEDS: LANTUS PER UNIT CHARGE SC SCH ×2 (09:12→21:17)
[2023-04-16] MEDS: cefTRIAXone SODIUM 2,000 MG in DEXTROSE 5% 50 ML IV SCH (12:02)
[2023-04-16] MEDS: traMADol HCL 50 MG TABLET PO PRN (12:21)
[2023-04-16] MEDS: HEPARIN 100 UNIT/ML 5ML FLUSH FLUSH PRN (12:50)
--- NOTE | 2023-04-16 13:25 | Hospitalist Progress Note ---
Date of Service April 16, 2023 Assessment & Plan (1) Closed fracture of right hip: Plan: Patient presents from home after a mechanical fall. CT head, CT cervical spine negative for acute findings. Pelvic x-ray concerning for fracture. Hip CT shows confirmation of acute, comminuted and displaced greater trochanteric fracture. Discussed with orthopedics(Dr. Gaspar); recommends to obtain MRI to evaluate for intertrochanteric extension. MRI hip was done ; acute intertrochanteric fracture of right femur. Displaced fracture involving the greater trochanteric with a nondisplaced intertrochanteric component which nearly extends to the lesser trochanter. Discussed with orthopedics-plans for surgery 04/13 Discussed with oncology( Dr. Keon Pa) who is her hematology/oncology. 1 U pRBC and 2 PLT given 04/12 OK to proceed to surgery without further transfusions. she is POD 3-Status post right hip cephalomedullary nail by Dr. Gaspar. She is recovering well has ice in her hip and is working with physical therapy. Continue wound care and activity restrictions per Ortho. (2) E coli bacteremia: Plan: Urine culture and blood culture from last admission consistent with E. coli whi ch is pansensitive. Patient was discharged home on Augmentin. Changed to ceftriaxone while inpatient. Last dose of antibiotic to be on April 18 to complete 14-day course. Repeat blood cultures negative (3) Myelodysplastic syndrome: Plan: this is the cause of her decreased cell lines. she is status post stem cell transplant in August 2021. recent biopsy shows recurrence of disease. Followup with Heme/Onc. Will need an appointment scheduled with Dr. Aguero prior to discharge. She is transitioning care from her oncologist at [facility] to Dr. Aguero. (4) Thrombocytopenia: Plan: Platelet transfusion preop per recommendations above. CBC reviewed with patient this morning. (5) Postoperative anemia due to acute blood loss: Plan: Hb 6.4 this am with improvement after 1 unit of blood given. Trend CBC in am. Plan Chronic conditions: Type 2 diabetes mellitus; started on Lantus 20 units twice daily and NovoLog. Pharmacy glycemic consult. At her inpatient goal. History of hypothyroidism. Stable, continue Synthroid. Hyperlipidemia. Stable, on statin. Continue Lipitor History of coronary artery disease. Stable, continue statin, Imdur and metoprolol.. Hypertension. At goal, on metoprolol and imdur with holding parameters. Gastroesophageal reflux disease:Controlled, on omeprazole. Deep venous thrombosis prophylaxis. Sequential compression devices as the patient has thrombocytopenia and worsened anemia. Full code DVT prophylaxis SCDs. Dispo-per PT/OT and ortho DO Ananya Solorio Hospitalist Admission and Anticipated Discharge Date Admission Date: April 10, 2023 Subjective Postop day 3 doing well today Pain is mostly controlled but still present in the hip Hb was 6.4, gave 1 unit pRBCs (irradiated) and repeat H/H was 8.1/24 no active bleeding Review of Systems Review of Systems: All systems reviewed negative except as indicated above. Physical Exam Physical Exam: CONSTITUTIONAL: WNWD, vitals as above, generally well-appearing, NAD EYES: normal conjunctivae, no scleral icterus ENT: external ear and nose normal, MMM NECK: trachea midline RESPIRATORY: clear to auscultation bilaterally, no crackles, rales or wheezes, normal respiratory effort CARDIOVASCULAR: regular rate and rhythm, S1 and 2 heard without murmurs, gallops or rubs, no JVD, no peripheral edema CHEST: inspection of chest was normal GASTROINTESTINAL: soft, nontender, ND, no guarding MUSCULOSKELETAL: strength 5/5 throughout, head is normocephalic and atraumatic SKIN: warm and dry, Right hip surgical dressing that is clean dry and intact. NEUROLOGIC: CN 2-12 grossly intact, no sensory deficit, normal cognition, normal speech, no tremor PSYCHIATRIC: alert cooperative and oriented to person, place and time. Results & Data Results & Data Vital Signs (Past 12 Hours) Vital Signs Temp Pulse Pulse Pulse Resp BP BP 04/16/23 11:30 36.8 C 75 16 158/77 H 04/16/23 10:30 37.1 C 72 18 150/73 H 04/16/23 10:00 36.5 C 73 20 141/72 H 04/16/23 09:30 36.8 C 75 18 147/71 H 04/16/23 09:14 36.9 C 76 20 148/73 H 04/16/23 08:50 36.6 C 82 20 156/62 H 04/16/23 07:37 36.7 C 79 16 BP Pulse Ox O2 Del Method 04/16/23 11:30 95 Room Air 04/16/23 10:30 95 Room Air 04/16/23 10:00 96 Room Air 04/16/23 09:30 97 Room Air 04/16/23 09:14 96 04/16/23 08:50 96 04/16/23 07:37 114/56 L 99 Room Air Laboratory Results Short CBC 04/16/23 Range/Units 05:52 WBC 4.10 L (4.8-10.8) K/ul Hgb 6.7 L* (12.0-16.0) g/dl Hct 20.1 L* (37.0-47.0) % Plt Count 34 L (130-400) K/uL Medications Administered Current Inpatient Medications Acetaminophen (Acetaminophen 325 Mg Tab) 650 mg PO Q4H PRN PRN Reason: Pain or Fever Stop: 05/10/23 10:06 Last Admin: 04/16/23 01:29 Dose: 650 mg Acyclovir (Acyclovir 400 Mg Tab) 800 mg PO BID [facility] Stop: 05/10/23 10:29 Last Admin: 04/16/23 09:01 Dose: 800 mg Apixaban (Apixaban 2.5 Mg Tab) 2.5 mg PO BID [facility] Stop: 05/13/23 20:59 Last Admin: 04/16/23 09:01 Dose: 2.5 mg Atorvastatin Calcium (Atorvastatin 40 Mg Tab) 40 mg PO DAILY [facility] Stop: 05/10/23 10:06 Last Admin: 04/16/23 09:01 Dose: 40 mg Dextrose (Dextrose 50% 50 Ml Syringe) 25 - 50 ml IV UD PRN; Protocol PRN Reason: Hypoglycemia Protocol Stop: 05/10/23 10:06 Glucagon (Glucagon For Inj 1 Mg Vial) 1 mg SQ UD PRN; Protocol PRN Reason: Hypoglycemia Protocol Stop: 05/10/23 10:06 Glucose (Glucose 10 Tab/Tube) 4 - 8 tab PO UD PRN; Protocol PRN Reason: Hypoglycemia Treatment Stop: 05/10/23 10:06 Glucose (Glucose 40% Gel 15 Gm Tube) 15 - 30 gm PO UD PRN; Protocol PRN Reason: Hypoglycemia Protocol Stop: 05/10/23 10:06 Heparin Sodium (Porcine) (Heparin 100 Unit/Ml 5ml Flush) 5 ml FLUSH PRN PRN PRN Reason: Flush Stop: 05/11/23 23:10 Last Admin: 04/16/23 12:50 Dose: 5 ml Ceftriaxone Sodium 2,000 mg/ (Dextrose) 70 mls @ 100 mls/hr IV Q24H [facility]; Protocol Stop: 04/24/23 10:59 Last Infusion: 04/16/23 12:48 Dose: Infused Sodium Chloride (Nss) 250 mls @ 15 mls/hr IV .[id number] PRN PRN Reason: For Transfusion Duration Stop: 04/16/23 16:47 Sodium Chloride (Nss) 250 mls @ 15 mls/hr IV .[id number] PRN PRN Reason: For Transfusion Duration Stop: 04/16/23 18:27 Insulin Aspart (Insulin Aspart Per Unit Charge) 0 units SC ACHS [facility]; Protocol Stop: 05/10/23 11:29 Last Admin: 04/16/23 12:48 Dose: 5 units Insulin Glargine (Lantus Per Unit Charge) 12 units SC BID [facility] Stop: 05/16/23 08:59 Last Admin: 04/16/23 09:12 Dose: 12 units Isosorbide Mononitrate (Isosorbide [place] Extended Rel 30 Mg Tabcr) 30 mg PO [facility] Stop: 05/10/23 10:06 Last Admin: 04/16/23 09:02 Dose: 30 mg Levothyroxine Sodium (Levothyroxine Sodium 75 Mcg Tablet) [facility] Stop: 05/10/23 10:06 Last Admin: 04/16/23 05:50 Dose: 75 mcg Metoprolol Succinate (Metoprolol Succ 50mg Ext Rel Tab) 50 mg [facility] Stop: 05/10/23 10:06 Last Admin: 04/16/23 09:02 Dose: 50 mg Miscellaneous (Carbohydrates For Hypoglycemia ) 15 - 30 gm PO UD PRN PRN Reason: Hypoglycemia Protocol Stop: 05/10/23 10:06 Miscellaneous Information (Pharmacy Glycemic Mgmt Consult) 1 each N/A UD PRN PRN Reason: Consult Stop: 05/10/23 10:06 Ondansetron HCl (Ondansetron Inj 2 Mg/Ml 2 Ml Vial) 4 mg IV Q6H PRN PRN Reason: Nausea And Vomiting Stop: 05/10/23 11:39 Last Admin: 04/10/23 11:53 Dose: 4 mg Oxybutynin Chloride (Oxybutynin Chloride Xl 5 Mg Tabcr) 5 mg PO DAILY [facility] Stop: 05/10/23 10:29 Last Admin: 04/16/23 09:03 Dose: 5 mg Pantoprazole Sodium (Pantoprazole 40 Mg Tab) 40 mg PO DAILY [facility] Stop: 05/10/23 10:29 Last Admin: 04/16/23 09:03 Dose: 40 mg Polyethylene Glycol (Polyethylene (Miralax) 17 Gm Pack) 17 gm PO DAILY [facility] Stop: 05/10/23 10:14 Last Admin: 04/16/23 09:12 Dose: 17 gm Tramadol HCl (Tramadol Hcl 50 Mg Tablet) 50 mg PO Q6H PRN PRN Reason: Pain Stop: 05/10/23 10:06 Last Admin: 04/16/23 12:21 Dose: 50 mg Venlafaxine HCl (Venlafaxine Hcl Xr 150 Mg Capxr) 150 mg PO HS [facility] Stop: 05/10/23 20:59 Last Admin: 04/15/23 21:06 Dose: 150 mg Vibegron (Vibegron 75 Mg Tab) 75 mg PO DAILY [facility]; Protocol Stop: 05/10/23 10:29 Last Admin: 04/16/23 09:03 Dose: 75 mg Vitamin D (Cholecalciferol 5,000 Units 125 Mcg Tab) 5,000 units PO QAM [facility] Stop: 05/10/23 10:06 Last Admin: 04/16/23 09:02 Dose: 5,000 units (1) Closed fracture of right hip Encounter type: initial encounter Qualified Code(s): S72.001A - Fracture of unspecified part of neck of right femur, initial encounter for closed fracture
[2023-04-16 13:33] LABS: Hemoglobin 8.1 g/dl (12.0-16.0)
[2023-04-16] MEDS: VENLAFAXINE HCL XR 150 MG CAPXR PO SCH (21:19)
[2023-04-17] MEDS: ACETAMINOPHEN 325 MG TAB PO PRN (01:01)
[2023-04-17] MEDS: LEVOTHYROXINE SODIUM 75 MCG TABLET PO SCH (05:46)
[2023-04-17] MEDS: HEPARIN 100 UNIT/ML 5ML FLUSH FLUSH PRN (06:24)
[2023-04-17 07:29] LABS: Hematocrit (blood only) 22.7 % (37.0-47.0); Hemoglobin 7.8 g/dl (12.0-16.0); Mean Corpuscular Hemoglobin 33.8 pg (25.0-34.0); Mean Corpuscular Hgb Conc 34.4 g/dL (32.0-36.0); Mean Corpuscular Volume 98.3 fL (80.0-100.0); Mean Platelet Volume 10.6 fL (9.4-12.4); Platelet Count 28 K/uL (130-400); RDW Coefficient of Variation 19.9 % (11.5-14.5); Red Blood Count 2.31 M/uL (4.20-5.40); White Blood Count 3.43 K/ul (4.8-10.8)
[2023-04-17] MEDS: METOPROLOL SUCC 50MG EXT REL TAB PO SCH (07:55)
[2023-04-17] MEDS: CHOLECALCIFEROL 5,000 UNITS 125 MCG TAB PO SCH (07:56)
[2023-04-17] MEDS: ACYCLOVIR 400 MG TAB PO SCH ×2 (07:56→20:19)
[2023-04-17] MEDS: VIBEGRON 75 MG TAB PO SCH (07:56)
[2023-04-17] MEDS: ISOSORBIDE MONO EXTENDED REL 30 MG TABCR PO SCH (07:56)
[2023-04-17] MEDS: OXYBUTYNIN CHLORIDE XL 5 MG TABCR PO SCH (07:56)
[2023-04-17] MEDS: APIXABAN 2.5 MG TAB PO SCH ×2 (07:56→20:19)
[2023-04-17] MEDS: POLYETHYLENE (MIRALAX) 17 GM PACK PO SCH (07:57)
[2023-04-17] MEDS: ATORVASTATIN 40 MG TAB PO SCH (07:57)
[2023-04-17] MEDS: PANTOprazole 40 MG TAB PO SCH (07:57)
[2023-04-17] MEDS: INSULIN ASPART PER UNIT CHARGE SC SCH ×4 (08:15→21:19)
[2023-04-17] MEDS: LANTUS PER UNIT CHARGE SC SCH ×2 (08:16→21:19)
[2023-04-17] MEDS: cefTRIAXone SODIUM 2,000 MG in DEXTROSE 5% 50 ML IV SCH (10:29)
[2023-04-17] MEDS ORDERED: SODIUM CHLORIDE 0.9% 250 ML IV PRN (13:28)
[2023-04-17] MEDS: VENLAFAXINE HCL XR 150 MG CAPXR PO SCH (20:19)
[2023-04-17] MEDS: traMADol HCL 50 MG TABLET PO PRN (20:22)
[2023-04-18] MEDS: LEVOTHYROXINE SODIUM 75 MCG TABLET PO SCH (06:04)
[2023-04-18] MEDS: PANTOprazole 40 MG TAB PO SCH (08:09)
[2023-04-18] MEDS: OXYBUTYNIN CHLORIDE XL 5 MG TABCR PO SCH (08:09)
[2023-04-18] MEDS: ACYCLOVIR 400 MG TAB PO SCH ×2 (08:09→19:45)
[2023-04-18] MEDS: APIXABAN 2.5 MG TAB PO SCH ×2 (08:09→19:46)
[2023-04-18] MEDS: METOPROLOL SUCC 50MG EXT REL TAB PO SCH (08:09)
[2023-04-18] MEDS: ISOSORBIDE MONO EXTENDED REL 30 MG TABCR PO SCH (08:10)
[2023-04-18] MEDS: POLYETHYLENE (MIRALAX) 17 GM PACK PO SCH (08:10)
[2023-04-18] MEDS: VIBEGRON 75 MG TAB PO SCH (08:10)
[2023-04-18] MEDS: CHOLECALCIFEROL 5,000 UNITS 125 MCG TAB PO SCH (08:10)
[2023-04-18] MEDS: LANTUS PER UNIT CHARGE SC SCH ×2 (08:29→21:20)
[2023-04-18] MEDS: INSULIN ASPART PER UNIT CHARGE SC SCH ×4 (08:30→21:21)
--- NOTE | 2023-04-18 09:12 | Hospitalist Progress Note ---
Date of Service April 17, 2023 Assessment & Plan (1) Closed fracture of right hip: Plan: Patient presents from home after a mechanical fall. CT head, CT cervical spine negative for acute findings. Pelvic x-ray concerning for fracture. Hip CT shows confirmation of acute, comminuted and displaced greater trochanteric fracture. Discussed with orthopedics(Dr. Gaspar); recommends to obtain MRI to evaluate for intertrochanteric extension. MRI hip was done ; acute intertrochanteric fracture of right femur. Displaced fracture involving the greater trochanteric with a nondisplaced intertrochanteric component which nearly extends to the lesser trochanter. Discussed with orthopedics-plans for surgery 04/13 Discussed with oncology( Dr. Keon Pa) who is her hematology/oncology. 1 U pRBC and 2 PLT given 04/12 OK to proceed to surgery without further transfusions. she is POD 4-Status post right hip cephalomedullary nail by Dr. Gaspar. She is recovering well has ice in her hip and is working with physical therapy. Continue wound care and activity restrictions per Ortho. DVT chemoprophylaxis is contraindicated in the setting of thrombocytopenia, (2) E coli bacteremia: Plan: Urine culture and blood culture from last admission consistent with E. coli which is pansensitive. Patient was discharged home on Augmentin. Changed to ceftriaxone while inpatient. Last dose of antibiotic to be on April 18 to complete 14-day course. Repeat blood cultures negative (3) Myelodysplastic syndrome: Plan: this is the cause of her decreased cell lines. she is status post stem cell transplant in August 2021. recent biopsy shows recurrence of disease. Followup with Heme/Onc. Will need an appointment scheduled with Dr. Aguero prior to discharge. She is transitioning care from her oncologist at [facility] [place] [place] to Dr. Aguero. Transfusion again today as noted above. (4) Thrombocytopenia: Plan: Platelet transfusion preop per recommendations above. CBC reviewed with patient this morning. (5) Postoperative anemia due to acute blood loss: Plan: Hb 6.4 this am with improvement after 1 unit of blood given. Trend CBC in am. Plan Chronic conditions: Type 2 diabetes mellitus; started on Lantus 20 units twice daily and NovoLog. Pharmacy glycemic consult. At her inpatient goal. History of hypothyroidism. Stable, continue Synthroid. Hyperlipidemia. Stable, on statin. Continue Lipitor History of coronary artery disease. Stable, continue statin, Imdur and metoprolol.. Hypertension. At goal, on metoprolol and imdur with holding parameters. Gastroesophageal reflux disease:Controlled, on omeprazole. Deep venous thrombosis prophylaxis. Sequential compression devices as the patient has thrombocytopenia and worsened anemia. Full code DVT prophylaxis SCDs. Dispo-per PT/OT and ortho DO [facility] Hospitalist Admission and Anticipated Discharge Date Admission Date: April 10, 2023 Subjective Postop day 4 doing well today Pain controlled Hb7.8 with goal >8 We discussed transfusing her one more unit today Plans for rehab with auth pending Daughter and were present at the bedside. Review of Systems Review of Systems: All systems reviewed negative except as indicated above. Physical Exam Physical Exam: CONSTITUTIONAL: WNWD, vitals as above, generally well-appearing, NAD EYES: normal conjunctivae, no scleral icterus ENT: external ear and nose normal, MMM NECK: trachea midline RESPIRATORY: clear to auscultation bilaterally, no crackles, rales or wheezes, normal respiratory effort CARDIOVASCULAR: regular rate and rhythm, S1 and 2 heard without murmurs, gallops or rubs, no JVD, no peripheral edema CHEST: inspection of chest was normal GASTROINTESTINAL: soft, nontender, ND, no guarding MUSCULOSKELETAL: strength 5/5 throughout, head is normocephalic and atraumatic SKIN: warm and dry, Right hip surgical dressing that is clean dry and intact. NEUROLOGIC: CN 2-12 grossly intact, no sensory deficit, normal cognition, normal speech, no tremor PSYCHIATRIC: alert cooperative and oriented to person, place and time. Results & Data Results & Data Vital Signs (Past 12 Hours) Vital Signs Temp Pulse Pulse Resp BP Pulse Ox O2 Del Method 04/17/23 07:40 36.6 C 73 16 145/80 H 93 Room Air 04/16/23 21:30 36.7 C 70 16 132/63 96 Room Air Medications Administered Current Inpatient Medications Acetaminophen (Acetaminophen 325 Mg Tab) 650 mg PO Q4H PRN PRN Reason: Pain or Fever Stop: 05/10/23 10:06 Last Admin: 04/17/23 01:01 Dose: 650 mg Acyclovir (Acyclovir 400 Mg Tab) 800 mg PO BID [facility] Stop: 05/10/23 10:29 Last Admin: 04/18/23 08:09 Dose: 800 mg Apixaban (Apixaban 2.5 Mg Tab) 2.5 mg PO BID [facility] Stop: 05/13/23 20:59 Last Admin: 04/18/23 08:09 Dose: 2.5 mg Atorvastatin Calcium (Atorvastatin 40 Mg Tab) 40 mg PO DAILY [facility] Stop: 05/10/23 10:06 Last Admin: 04/17/23 07:57 Dose: 40 mg Dextrose (Dextrose 50% 50 Ml Syringe) 25 - 50 ml IV UD PRN; Protocol PRN Reason: Hypoglycemia Protocol Stop: 05/10/23 10:06 Glucagon (Glucagon For Inj 1 Mg Vial) 1 mg SQ UD PRN; Protocol PRN Reason: Hypoglycemia Protocol Stop: 05/10/23 10:06 Glucose (Glucose 10 Tab/Tube) 4 - 8 tab PO UD PRN; Protocol PRN Reason: Hypoglycemia Treatment Stop: 05/10/23 10:06 Glucose (Glucose 40% Gel 15 Gm Tube) 15 - 30 gm PO UD PRN; Protocol PRN Reason: Hypoglycemia Protocol Stop: 05/10/23 10:06 Heparin Sodium (Porcine) (Heparin 100 Unit/Ml 5ml Flush) 5 ml FLUSH PRN PRN PRN Reason: Flush Stop: 05/11/23 23:10 Last Admin: 04/17/23 06:24 Dose: 5 ml Ceftriaxone Sodium 2,000 mg/ (Dextrose) 70 mls @ 100 mls/hr IV Q24H [facility]; Protocol Stop: 04/24/23 10:59 Last Infusion: 04/17/23 11:35 Dose: Infused Insulin Aspart (Insulin Aspart Per Unit Charge) 0 units SC ACHS [facility]; Protocol Stop: 05/10/23 11:29 Last Admin: 04/18/23 08:30 Dose: 7 units Insulin Glargine (Lantus Per Unit Charge) 12 units SC BID [facility] Stop: 05/16/23 08:59 Last Admin: 04/18/23 08:29 Dose: 12 units Isosorbide Mononitrate (Isosorbide [place] Extended Rel 30 Mg Tabcr) 30 mg PO QAM [facility] Stop: 05/10/23 10:06 Last Admin: 04/18/23 08:10 Dose: 30 mg Levothyroxine Sodium (Levothyroxine Sodium 75 Mcg Tablet) 75 mcg PO DAILYBB [facility] Stop: 05/10/23 10:06 Last Admin: 04/18/23 06:04 Dose: 75 mcg Metoprolol Succinate (Metoprolol Succ 50mg Ext Rel Tab) 50 mg PO QAM [facility] Stop: 05/10/23 10:06 Last Admin: 04/18/23 08:09 Dose: 50 mg Miscellaneous (Carbohydrates For Hypoglycemia ) 15 - 30 gm PO UD PRN PRN Reason: Hypoglycemia Protocol Stop: 05/10/23 10:06 Miscellaneous Information (Pharmacy Glycemic Mgmt Consult) 1 each N/A UD PRN PRN Reason: Consult Stop: 05/10/23 10:06 Ondansetron HCl (Ondansetron Inj 2 Mg/Ml 2 Ml Vial) 4 mg IV Q6H PRN PRN Reason: Nausea And Vomiting Stop: 05/10/23 11:39 Last Admin: 04/10/23 11:53 Dose: 4 mg Oxybutynin Chloride (Oxybutynin Chloride Xl 5 Mg Tabcr) 5 mg PO DAILY [facility] Stop: 05/10/23 10:29 Last Admin: 04/18/23 08:09 Dose: 5 mg Pantoprazole Sodium (Pantoprazole 40 Mg Tab) 40 mg PO DAILY [facility] Stop: 05/10/23 10:29 Last Admin: 04/18/23 08:09 Dose: 40 mg Polyethylene Glycol (Polyethylene (Miralax) 17 Gm Pack) 17 gm PO DAILY [facility] Stop: 05/10/23 10:14 Last Admin: 04/18/23 08:10 Dose: 17 gm Tramadol HCl (Tramadol Hcl 50 Mg Tablet) 50 mg PO Q6H PRN PRN Reason: Pain Stop: 05/10/23 10:06 Last Admin: 04/17/23 20:22 Dose: 50 mg Venlafaxine HCl (Venlafaxine Hcl Xr 150 Mg Capxr) 150 mg PO HS [facility] Stop: 05/10/23 20:59 Last Admin: 04/17/23 20:19 Dose: 150 mg Vibegron (Vibegron 75 Mg Tab) 75 mg PO DAILY [facility]; Protocol Stop: 05/10/23 10:29 Last Admin: 04/18/23 08:10 Dose: 75 mg Vitamin D (Cholecalciferol 5,000 Units 125 Mcg Tab) 5,000 units PO QAM [facility] Stop: 05/10/23 10:06 Last Admin: 04/18/23 08:10 Dose: 5,000 units (1) Closed fracture of right hip Encounter type: initial encounter Qualified Code(s): S72.001A - Fracture of unspecified part of neck of right femur, initial encounter for closed fracture
[2023-04-18] MEDS: ATORVASTATIN 40 MG TAB PO SCH (09:43)
[2023-04-18] MEDS: cefTRIAXone SODIUM 2,000 MG in DEXTROSE 5% 50 ML IV SCH (10:12)
[2023-04-18 10:31] LABS: Hematocrit (blood only) 28.3 % (37.0-47.0); Hemoglobin 9.7 g/dl (12.0-16.0); Mean Corpuscular Hemoglobin 33.6 pg (25.0-34.0); Mean Corpuscular Hgb Conc 34.3 g/dL (32.0-36.0); Mean Corpuscular Volume 97.9 fL (80.0-100.0); Mean Platelet Volume 9.6 fL (9.4-12.4); Platelet Count 26 K/uL (130-400); RDW Coefficient of Variation 19.5 % (11.5-14.5); Red Blood Count 2.89 M/uL (4.20-5.40); White Blood Count 4.92 K/ul (4.8-10.8)
[2023-04-18 10:43] LABS: BUN Creatinine Ratio 16.4 (10-20); Creatinine Clr Calc Pharmacy 86.6 ml/min; Est GFR (African American) 103.5 ml/min; Est GFR (Non-African American) 89.3 ml/min; Potassium 3.4 mmol/L (3.5-5.1)
[2023-04-18] MEDS: traMADol HCL 50 MG TABLET PO PRN (12:48)
--- NOTE | 2023-04-18 13:45 | Pharmacy Report ---
Pharmacy Glycemic Short Note 2 - Date of Service April 18, 2023 - Glycemic Short BSG Results (Last 24 hours): 04/17/23 04/17/23 04/18/23 16:52 21:12 08:07 Glucose POC Glucose 113 H 179 H 158 H 04/18/23 04/18/23 09:34 12:07 Glucose 201 H POC Glucose 223 H OUTPATIENT ANTIDIABETIC REGIMEN: * Levemir 22 units SC HS * Novolin R with meals (SSI) * Metformin 1 gm PO BID * HbA1C = 10.2% (04/05/23) ASSESSMENT: 04/18/23 * BSGs have been relatively well-controlled. * No changes indicated at this time. 04/14/23 * POD #1 s/p right hip nailing, received 8 mg IV dexamethasone in OR * BSGs trended up overnight in light of steroids, will tighten Novolog today, but anticipate needs returning to prior ones with no ongoing steroids ordered 04/13/23 * BSGs have been reasonably well-controlled over past 48 hours * Patient NPO today for planned OR for right trochanteric femoral nailing this afternoon * Will make postoperative adjustments as needed 04/11/23 * BSGs much improved today - will decrease basal today in order to decrease likelihood of hypoglycemia * Remains on ceftriaxone for E.coli bacteremia * Surgery anticipated, but on hold at this time due to thrombocytopenia 04/10/23 * 72 yo female, Type 2 DM, recent admission last week, s/p fall d/t lightheadedness, admitted with hip fracture. Pt known to glycemic service from last admission. * Will begin with similar insulin dosing as last week, with higher goal range and conservative titration to prevent hypoglycemia. PLAN FOR INPATIENT GLYCEMIC CONTROL: * Hold outpatient oral diabetes medications * Basal insulin * Lantus 12 units SC BID * Bolus insulin * NovoLog per scale ACHS or Q6hrs while NPO * Goal Range: Low 120 mg/dL - High 150 mg/dL * Correction Factor: 20 mg/dL/unit * Nutritional / Prandial insulin per carb ratio of 1 unit per 7 grams CHO consumed
--- NOTE | 2023-04-18 15:59 | Hospitalist Progress Note ---
Date of Service April 18, 2023 Assessment & Plan (1) Closed fracture of right hip: Plan: Patient presents from home after a mechanical fall. CT head, CT cervical spine negative for acute findings. Pelvic x-ray concerning for fracture. Hip CT shows confirmation of acute, comminuted and displaced greater trochanteric fracture. Discussed with orthopedics(Dr. Gaspar); recommends to obtain MRI to evaluate for intertrochanteric extension. MRI hip was done ; acute intertrochanteric fracture of right femur. Displaced fracture involving the greater trochanteric with a nondisplaced intertrochanteric component which nearly extends to the lesser trochanter. Discussed with orthopedics-plans for surgery 04/13 Discussed with oncology( Dr. Keon Pa) who is her hematology/oncology. 1 U pRBC and 2 PLT given 04/12 OK to proceed to surgery without further transfusions. she is POD 5-Status post right hip cephalomedullary nail by Dr. Gaspar. She is recovering well has ice in her hip and is working with physical therapy. Continue wound care and activity restrictions per Ortho. Awaiting clearance for placement. DVT chemoprophylaxis is contraindicated in the setting of thrombocytopenia, (2) E coli bacteremia: Plan: Urine culture and blood culture from last admission consistent with E. coli which is pansensitive. Patient was discharged home on Augmentin. Changed to ceftriaxone while inpatient. She has completed a two week course. Antibiotics have been stopped. (3) Myelodysplastic syndrome: Plan: this is the cause of her decreased cell lines. she is status post stem cell transplant in August 2021. recent biopsy shows recurrence of disease. Followup with Heme/Onc. Appt with Dr Pa on 05/08-this was added to discharge instructions and discussed with her today. Hb at goal>8, CBC in am (4) Thrombocytopenia: Plan: Platelets are stable around her baseline. CBC in am. (5) Postoperative anemia due to acute blood loss: Plan: Resolved after transfusions. CBC in am. Plan Chronic conditions: Type 2 diabetes mellitus; started on Lantus 20 units twice daily and NovoLog. Pharmacy glycemic consult. At her inpatient goal. History of hypothyroidism. Stable, continue Synthroid. Hyperlipidemia. Stable, on statin. Continue Lipitor History of coronary artery disease. Stable, continue statin, Imdur and metoprolol.. Hypertension. At goal, on metoprolol and imdur with holding parameters. Gastroesophageal reflux disease:Controlled, on omeprazole. Deep venous thrombosis prophylaxis. Sequential compression devices as the patient has thrombocytopenia and worsened anemia. Full code DVT prophylaxis SCDs. Dispo-per PT/OT and ortho Radha Feliciano DO [facility] Hospitalist Admission and Anticipated Discharge Date Admission Date: April 10, 2023 Subjective 72 yo F with MDS s/p R hip nailing on 04/13 doing well today Pain controlled Hb 9.7 and PLT 26 Tolerating PO and awaiting auth for rehab Review of Systems Review of Systems: All systems reviewed negative except as indicated above. Physical Exam 2 Physical Exam: CONSTITUTIONAL: WNWD, vitals as above, generally well-appearing, NAD EYES: normal conjunctivae, no scleral icterus ENT: external ear and nose normal, MMM NECK: trachea midline RESPIRATORY: clear to auscultation bilaterally, no crackles, rales or wheezes, normal respiratory effort CARDIOVASCULAR: regular rate and rhythm, S1 and 2 heard without murmurs, gallops or rubs, no JVD, no peripheral edema CHEST: inspection of chest was normal GASTROINTESTINAL: soft, nontender, ND, no guarding MUSCULOSKELETAL: strength 5/5 throughout, head is normocephalic and atraumatic SKIN: warm and dry, Right hip surgical dressing that is clean dry and intact. NEUROLOGIC: CN 2-12 grossly intact, no sensory deficit, normal cognition, normal speech, no tremor PSYCHIATRIC: alert cooperative and oriented to person, place and time. Results & Data Results & Data Vital Signs (Past 12 Hours) Vital Signs Temp Pulse Resp BP BP Pulse Ox O2 Del Method 04/18/23 15:47 125/62 04/18/23 15:27 36.5 C 70 16 107/55 L 93 Room Air 04/18/23 07:48 36.7 C 67 16 161/70 H 95 Room Air Laboratory Results Short CBC 04/18/23 Range/Units 09:34 WBC 4.92 (4.8-10.8) K/ul Hgb 9.7 L (12.0-16.0) g/dl Hct 28.3 L (37.0-47.0) % Plt Count 26 L* (130-400) K/uL BMP 04/18/23 09:34 Sodium 137 Potassium 3.4 L Chloride 102 Carbon Dioxide 28 BUN 10 Creatinine 0.61 Glucose 201 H Calcium 9.0 Medications Administered Current Inpatient Medications Acetaminophen (Acetaminophen 325 Mg Tab) 650 mg PO Q4H PRN PRN Reason: Pain or Fever Stop: 05/10/23 10:06 Last Admin: 04/17/23 01:01 Dose: 650 mg Acyclovir (Acyclovir 400 Mg Tab) 800 mg PO BID [facility] Stop: 05/10/23 10:29 Last Admin: 04/18/23 08:09 Dose: 800 mg Apixaban (Apixaban 2.5 Mg Tab) 2.5 mg PO BID [facility] Stop: 05/13/23 20:59 Last Admin: 04/18/23 08:09 Dose: 2.5 mg Atorvastatin Calcium (Atorvastatin 40 Mg Tab) 40 mg PO DAILY [facility] Stop: 05/10/23 10:06 Last Admin: 04/18/23 09:43 Dose: 40 mg Dextrose (Dextrose 50% 50 Ml Syringe) 25 - 50 ml IV UD PRN; Protocol PRN Reason: Hypoglycemia Protocol Stop: 05/10/23 10:06 Glucagon (Glucagon For Inj 1 Mg Vial) 1 mg SQ UD PRN; Protocol PRN Reason: Hypoglycemia Protocol Stop: 05/10/23 10:06 Glucose (Glucose 10 Tab/Tube) 4 - 8 tab PO UD PRN; Protocol PRN Reason: Hypoglycemia Treatment Stop: 05/10/23 10:06 Glucose (Glucose 40% Gel 15 Gm Tube) 15 - 30 gm PO UD PRN; Protocol PRN Reason: Hypoglycemia Protocol Stop: 05/10/23 10:06 Heparin Sodium (Porcine) (Heparin 100 Unit/Ml 5ml Flush) 5 ml FLUSH PRN PRN PRN Reason: Flush Stop: 05/11/23 23:10 Last Admin: 04/17/23 06:24 Dose: 5 ml Ceftriaxone Sodium 2,000 mg/ (Dextrose) 70 mls @ 100 mls/hr IV Q24H [facility]; Protocol Stop: 04/24/23 10:59 Last Infusion: 04/18/23 10:48 Dose: Infused Insulin Aspart (Insulin Aspart Per Unit Charge) 0 units SC ACHS [facility]; Protocol Stop: 05/10/23 11:29 Last Admin: 04/18/23 12:16 Dose: 13 units Insulin Glargine (Lantus Per Unit Charge) 12 units SC BID [facility] Stop: 05/16/23 08:59 Last Admin: 04/18/23 08:29 Dose: 12 units Isosorbide Mononitrate (Isosorbide [place] Extended Rel 30 Mg Tabcr) 30 mg PO QAM [facility] Stop: 05/10/23 10:06 Last Admin: 04/18/23 08:10 Dose: 30 mg Levothyroxine Sodium (Levothyroxine Sodium 75 Mcg Tablet) 75 mcg PO DAILYBB [facility] Stop: 05/10/23 10:06 Last Admin: 04/18/23 06:04 Dose: 75 mcg Metoprolol Succinate (Metoprolol Succ 50mg Ext Rel Tab) 50 mg PO QAM [facility] Stop: 05/10/23 10:06 Last Admin: 04/18/23 08:09 Dose: 50 mg Miscellaneous (Carbohydrates For Hypoglycemia ) 15 - 30 gm PO UD PRN PRN Reason: Hypoglycemia Protocol Stop: 05/10/23 10:06 Miscellaneous Information (Pharmacy Glycemic Mgmt Consult) 1 each N/A UD PRN PRN Reason: Consult Stop: 05/10/23 10:06 Ondansetron HCl (Ondansetron Inj 2 Mg/Ml 2 Ml Vial) 4 mg IV Q6H PRN PRN Reason: Nausea And Vomiting Stop: 05/10/23 11:39 Last Admin: 04/10/23 11:53 Dose: 4 mg Oxybutynin Chloride (Oxybutynin Chloride Xl 5 Mg Tabcr) 5 mg PO DAILY [facility] Stop: 05/10/23 10:29 Last Admin: 04/18/23 08:09 Dose: 5 mg Pantoprazole Sodium (Pantoprazole 40 Mg Tab) 40 mg PO DAILY [facility] Stop: 05/10/23 10:29 Last Admin: 04/18/23 08:09 Dose: 40 mg Polyethylene Glycol (Polyethylene (Miralax) 17 Gm Pack) 17 gm PO DAILY [facility] Stop: 05/10/23 10:14 Last Admin: 04/18/23 08:10 Dose: 17 gm Tramadol HCl (Tramadol Hcl 50 Mg Tablet) 50 mg PO Q6H PRN PRN Reason: Pain Stop: 05/10/23 10:06 Last Admin: 04/18/23 12:48 Dose: 50 mg Venlafaxine HCl (Venlafaxine Hcl Xr 150 Mg Capxr) 150 mg PO HS [facility] Stop: 05/10/23 20:59 Last Admin: 04/17/23 20:19 Dose: 150 mg Vibegron (Vibegron 75 Mg Tab) 75 mg PO DAILY [facility]; Protocol Stop: 05/10/23 10:29 Last Admin: 04/18/23 08:10 Dose: 75 mg Vitamin D (Cholecalciferol 5,000 Units 125 Mcg Tab) 5,000 units PO QAM [facility] Stop: 05/10/23 10:06 Last Admin: 04/18/23 08:10 Dose: 5,000 units (1) Closed fracture of right hip Encounter type: initial encounter Qualified Code(s): S72.001A - Fracture of unspecified part of neck of right femur, initial encounter for closed fracture
[2023-04-18] MEDS: VENLAFAXINE HCL XR 150 MG CAPXR PO SCH (19:46)
[2023-04-19] MEDS: traMADol HCL 50 MG TABLET PO PRN (06:09)
[2023-04-19] MEDS: LEVOTHYROXINE SODIUM 75 MCG TABLET PO SCH (06:10)
[2023-04-19] MEDS: POLYETHYLENE (MIRALAX) 17 GM PACK PO SCH (07:53)
[2023-04-19] MEDS: ATORVASTATIN 40 MG TAB PO SCH (08:18)
[2023-04-19] MEDS: APIXABAN 2.5 MG TAB PO SCH (08:18)
[2023-04-19] MEDS: OXYBUTYNIN CHLORIDE XL 5 MG TABCR PO SCH (08:18)
[2023-04-19] MEDS: CHOLECALCIFEROL 5,000 UNITS 125 MCG TAB PO SCH (08:18)
[2023-04-19] MEDS: METOPROLOL SUCC 50MG EXT REL TAB PO SCH (08:19)
[2023-04-19] MEDS: VIBEGRON 75 MG TAB PO SCH (08:19)
[2023-04-19] MEDS: ISOSORBIDE MONO EXTENDED REL 30 MG TABCR PO SCH (08:19)
[2023-04-19] MEDS: ACYCLOVIR 400 MG TAB PO SCH ×2 (08:19→20:06)
[2023-04-19] MEDS: PANTOprazole 40 MG TAB PO SCH (08:19)
[2023-04-19] MEDS: LANTUS PER UNIT CHARGE SC SCH ×2 (08:25→20:46)
[2023-04-19] MEDS: INSULIN ASPART PER UNIT CHARGE SC SCH ×4 (08:25→20:46)
--- NOTE | 2023-04-19 08:54 | Hospitalist Progress Note ---
Date of Service April 19, 2023 Assessment & Plan (1) Closed fracture of right hip: Plan: Patient presents from home after a mechanical fall. CT head, CT cervical spine negative for acute findings. Pelvic x-ray concerning for fracture. Hip CT shows confirmation of acute, comminuted and displaced greater trochanteric fracture. Discussed with orthopedics(Dr. Gaspar); recommends to obtain MRI to evaluate for intertrochanteric extension. MRI hip was done ; acute intertrochanteric fracture of right femur. Displaced fracture involving the greater trochanteric with a nondisplaced intertrochanteric component which nearly extends to the lesser trochanter. Discussed with orthopedics-plans for surgery 04/13 Discussed with oncology( Dr. Keon Pa) who is her hematology/oncology. 1 U pRBC and 2 PLT given 04/12 OK to proceed to surgery without further transfusions. she is POD 6-Status post right hip cephalomedullary nail by Dr. Gaspar. She is recovering well has ice in her hip and is working with physical therapy. Continue wound care and activity restrictions per Ortho. Awaiting clearance for placement. DVT chemoprophylaxis is contraindicated in the setting of thrombocytopenia. 04/19/23 - Patient has been apixaban since April 13, 2.5 mg bid for DVT prophylaxis. Discussed with her hematology/oncology office, (Dr. Pa office)- given patient's thrombocytopenia, and they do not recommend apixaban as long as platelets are less than 50,000. Apixaban is on hold now. Orthopedics notified and in agreement. (2) E coli bacteremia: Plan: Urine culture and blood culture from last admission consistent with E. coli which is pansensitive. Patient was discharged home on Augmentin. Changed to ceftriaxone while inpatient. She has completed a two week course. Antibiotics have been stopped. (3) Myelodysplastic syndrome: Plan: this is the cause of her decreased cell lines. she is status post stem cell transplant in August 2021. recent biopsy shows recurrence of disease. Followup with Heme/Onc. Appt with Dr Pa on 05/08-this was added to discharge instructions and discussed with the pt Hb at goal>8, CBC in am (4) Thrombocytopenia: Plan: Platelets are stable around her baseline. CBC in am. (5) Postoperative anemia due to acute blood loss: Plan: Resolved after transfusions. CBC in am. Plan Chronic conditions: Type 2 diabetes mellitus; started on Lantus 20 units twice daily and NovoLog. Pharmacy glycemic consult. At her inpatient goal. History of hypothyroidism. Stable, continue Synthroid. Hyperlipidemia. Stable, on statin. Continue Lipitor History of coronary artery disease. Stable, continue statin, Imdur and metoprolol.. Hypertension. At goal, on metoprolol and imdur with holding parameters. Gastroesophageal reflux disease:Controlled, on omeprazole. Deep venous thrombosis prophylaxis. Sequential compression devices as the patient has thrombocytopenia Full code DVT prophylaxis SCDs. Dispo-per PT/OT and ortho Admission and Anticipated Discharge Date Admission Date: April 10, 2023 Subjective 72 yo F with MDS s/p R hip nailing on 04/13 doing well today Pain controlled Hb 10.9 and PLT 31 Tolerating PO and awaiting auth for rehab Discussed with hematology office, given patient's thrombocytopenia, and they do not recommend apixaban as long as platelets are less than 50,000. Apixaban is on hold. Orthopedics notified and in agreement. Review of Systems Review of Systems: All systems reviewed & are unremarkable except as noted in Subjective Physical Exam Physical Exam: CONSTITUTIONAL: WNWD, NAD EYES: normal conjunctivae, no scleral icterus ENT: external ear and nose normal, MMM NECK: trachea midline, supple RESPIRATORY: clear to auscultation bilaterally, no crackles, rales or wheezes, normal respiratory effort CARDIOVASCULAR: regular rate and rhythm, S1 and 2 heard without murmurs, gallops or rubs, no JVD, no peripheral edema CHEST: inspection of chest was normal GASTROINTESTINAL: soft, nontender, ND, no guarding MUSCULOSKELETAL: strength 5/5 throughout, head is normocephalic and atraumatic SKIN: warm and dry, Right hip surgical dressing that is clean dry and intact. NEUROLOGIC:awake, alert, normal cognition, normal speech, no tremor PSYCHIATRIC: alert cooperative and oriented to person, place and time. Results & Data Results & Data Vital Signs (Past 12 Hours) Vital Signs Temp Pulse Pulse Resp BP BP Pulse Ox 04/19/23 07:30 36.6 C 67 18 115/67 97 04/18/23 23:15 04/18/23 21:55 36.7 C 63 16 111/58 L 96 O2 Del Method 04/19/23 07:30 Room Air 04/18/23 23:15 Room Air 04/18/23 21:55 Room Air Laboratory Results 04/19/23 04/19/23 04/19/23 Range/Units 09:31 09:31 08:16 WBC 7.18 (4.8-10.8) K/ul RBC 3.25 L (4.20-5.40) M/uL Hgb 10.9 L (12.0-16.0) g/dl Hct 31.9 L (37.0-47.0) % MCV 98.2 (80.0-100.0) fL MCH 33.5 (25.0-34.0) pg MCHC 34.2 (32.0-36.0) g/dL RDW Std Deviation 64.9 H (36.4-46.3) fL RDW Coeff of Evin 19.1 H (11.5-14.5) % Plt Count 31 L (130-400) K/uL MPV 10.5 (9.4-12.4) fL Sodium 137 (136-145) mmol/L Potassium 3.6 (3.5-5.1) mmol/L Chloride 102 (98-107) mmol/L Carbon Dioxide 26 (21-32) mmol/L Anion Gap 9 (3-11) BUN 12 (6-23) mg/dl Creatinine 0.76 (0.6-1.2) mg/dl Est Cr Clr Drug Dosing 69.5 ml/min Est GFR ( Amer) 89.6 ml/min Est GFR (Non-Af Amer) 77.3 ml/min BUN/Creatinine Ratio 15.8 (10-20) Glucose 225 H (70-99(Fasting)) mg/dl POC Glucose 147 H (70-99) mg/dl Calcium 9.3 (8.6-10.3) mg/dl 04/18/23 04/18/23 04/18/23 Range/Units 21:04 17:01 12:07 WBC (4.8-10.8) K/ul RBC (4.20-5.40) M/uL Hgb (12.0-16.0) g/dl Hct (37.0-47.0) % MCV (80.0-100.0) fL MCH (25.0-34.0) pg MCHC (32.0-36.0) g/dL RDW Std Deviation (36.4-46.3) fL RDW Coeff of Evin (11.5-14.5) % Plt Count (130-400) K/uL MPV (9.4-12.4) fL Sodium (136-145) mmol/L Potassium (3.5-5.1) mmol/L Chloride (98-107) mmol/L Carbon Dioxide (21-32) mmol/L Anion Gap (3-11) BUN (6-23) mg/dl Creatinine (0.6-1.2) mg/dl Est Cr Clr Drug Dosing ml/min Est GFR ( Amer) ml/min Est GFR (Non-Af Amer) ml/min BUN/Creatinine Ratio (10-20) Glucose (70-99(Fasting)) mg/dl POC Glucose 96 107 H 223 H (70-99) mg/dl Calcium (8.6-10.3) mg/dl Medications Administered Current Inpatient Medications Acetaminophen (Acetaminophen 325 Mg Tab) 650 mg PO Q4H PRN PRN Reason: Pain or Fever Stop: 05/10/23 10:06 Last Admin: 04/17/23 01:01 Dose: 650 mg Acyclovir (Acyclovir 400 Mg Tab) 800 mg PO BID [facility] Stop: 05/10/23 10:29 Last Admin: 04/19/23 08:19 Dose: 800 mg Apixaban (Apixaban 2.5 Mg Tab) 2.5 mg PO BID [facility] Stop: 05/13/23 20:59 Last Admin: 04/19/23 08:18 Dose: 2.5 mg Atorvastatin Calcium (Atorvastatin 40 Mg Tab) 40 mg PO DAILY [facility] Stop: 05/10/23 10:06 Last Admin: 04/19/23 08:18 Dose: 40 mg Dextrose (Dextrose 50% 50 Ml Syringe) 25 - 50 ml IV UD PRN; Protocol PRN Reason: Hypoglycemia Protocol Stop: 05/10/23 10:06 Glucagon (Glucagon For Inj 1 Mg Vial) 1 mg SQ UD PRN; Protocol PRN Reason: Hypoglycemia Protocol Stop: 05/10/23 10:06 Glucose (Glucose 10 Tab/Tube) 4 - 8 tab PO UD PRN; Protocol PRN Reason: Hypoglycemia Treatment Stop: 05/10/23 10:06 Glucose (Glucose 40% Gel 15 Gm Tube) 15 - 30 gm PO UD PRN; Protocol PRN Reason: Hypoglycemia Protocol Stop: 05/10/23 10:06 Heparin Sodium (Porcine) (Heparin 100 Unit/Ml 5ml Flush) 5 ml FLUSH PRN PRN PRN Reason: Flush Stop: 05/11/23 23:10 Last Admin: 04/17/23 06:24 Dose: 5 ml Ceftriaxone Sodium 2,000 mg/ (Dextrose) 70 mls @ 100 mls/hr IV Q24H [facility]; Protocol Stop: 04/24/23 10:59 Last Infusion: 04/18/23 10:48 Dose: Infused Insulin Aspart (Insulin Aspart Per Unit Charge) 0 units SC ACHS [facility]; Protocol Stop: 05/10/23 11:29 Last Admin: 04/19/23 08:25 Dose: 8 units Insulin Glargine (Lantus Per Unit Charge) 12 units SC BID [facility] Stop: 05/16/23 08:59 Last Admin: 04/19/23 08:25 Dose: 12 units Isosorbide Mononitrate (Isosorbide [place] Extended Rel 30 Mg Tabcr) [facility] Stop: 05/10/23 10:06 Last Admin: 04/19/23 08:19 Dose: 30 mg Levothyroxine Sodium (Levothyroxine Sodium 75 Mcg Tablet) 75 mcg PO DAILYBB [facility] Stop: 05/10/23 10:06 Last Admin: 04/19/23 06:10 Dose: 75 mcg Metoprolol Succinate (Metoprolol Succ 50mg Ext Rel Tab) 50 [facility] Stop: 05/10/23 10:06 Last Admin: 04/19/23 08:19 Dose: 50 mg Miscellaneous (Carbohydrates For Hypoglycemia ) 15 - 30 gm PO UD PRN PRN Reason: Hypoglycemia Protocol Stop: 05/10/23 10:06 Miscellaneous Information (Pharmacy Glycemic Mgmt Consult) 1 each N/A UD PRN PRN Reason: Consult Stop: 05/10/23 10:06 Ondansetron HCl (Ondansetron Inj 2 Mg/Ml 2 Ml Vial) 4 mg IV Q6H PRN PRN Reason: Nausea And Vomiting Stop: 05/10/23 11:39 Last Admin: 04/10/23 11:53 Dose: 4 mg Oxybutynin Chloride (Oxybutynin Chloride Xl 5 Mg Tabcr) 5 mg PO DAILY [facility] Stop: 05/10/23 10:29 Last Admin: 04/19/23 08:18 Dose: 5 mg Pantoprazole Sodium (Pantoprazole 40 Mg Tab) 40 mg PO DAILY [facility] Stop: 05/10/23 10:29 Last Admin: 04/19/23 08:19 Dose: 40 mg Polyethylene Glycol (Polyethylene (Miralax) 17 Gm Pack) 17 gm PO DAILY [facility] Stop: 05/10/23 10:14 Last Admin: 04/19/23 07:53 Dose: Not Given Tramadol HCl (Tramadol Hcl 50 Mg Tablet) 50 mg PO Q6H PRN PRN Reason: Pain Stop: 05/10/23 10:06 Last Admin: 04/19/23 06:09 Dose: 50 mg Venlafaxine HCl (Venlafaxine Hcl Xr 150 Mg Capxr) 150 mg PO HS [facility] Stop: 05/10/23 20:59 Last Admin: 04/18/23 19:46 Dose: 150 mg Vibegron (Vibegron 75 Mg Tab) 75 mg PO DAILY [facility]; Protocol Stop: 05/10/23 10:29 Last Admin: 04/19/23 08:19 Dose: 75 mg Vitamin D (Cholecalciferol 5,000 Units 125 Mcg Tab) 5,000 units PO QAM [facility] Stop: 05/10/23 10:06 Last Admin: 04/19/23 08:18 Dose: 5,000 units (1) Closed fracture of right hip Encounter type: initial encounter Qualified Code(s): S72.001A - Fracture of unspecified part of neck of right femur, initial encounter for closed fracture
[2023-04-19] MEDS: cefTRIAXone SODIUM 2,000 MG in DEXTROSE 5% 50 ML IV SCH (10:16)
[2023-04-19 10:34] LABS: BUN Creatinine Ratio 15.8 (10-20); Calcium 9.3 mg/dl (8.6-10.3); Creatinine Clr Calc Pharmacy 69.5 ml/min; Est GFR (African American) 89.6 ml/min; Est GFR (Non-African American) 77.3 ml/min; Hematocrit (blood only) 31.9 % (37.0-47.0); Hemoglobin 10.9 g/dl (12.0-16.0); Mean Corpuscular Hemoglobin 33.5 pg (25.0-34.0); Mean Corpuscular Hgb Conc 34.2 g/dL (32.0-36.0); Mean Corpuscular Volume 98.2 fL (80.0-100.0); Mean Platelet Volume 10.5 fL (9.4-12.4); Platelet Count 31 K/uL (130-400); Potassium 3.6 mmol/L (3.5-5.1); RDW Coefficient of Variation 19.1 % (11.5-14.5); RDW Standard Deviation 64.9 fL (36.4-46.3); Red Blood Count 3.25 M/uL (4.20-5.40); White Blood Count 7.18 K/ul (4.8-10.8)
[2023-04-19] MEDS ORDERED: POTASSIUM CHLORIDE CRTAB 20 MEQ TABCR PO STA (11:29)
[2023-04-19] MEDS: VENLAFAXINE HCL XR 150 MG CAPXR PO SCH (20:07)
[2023-04-20] MEDS: LEVOTHYROXINE SODIUM 75 MCG TABLET PO SCH (06:00)
[2023-04-20] MEDS: ACYCLOVIR 400 MG TAB PO SCH (07:59)
[2023-04-20] MEDS: OXYBUTYNIN CHLORIDE XL 5 MG TABCR PO SCH (08:00)
[2023-04-20] MEDS: CHOLECALCIFEROL 5,000 UNITS 125 MCG TAB PO SCH (08:00)
[2023-04-20] MEDS: ISOSORBIDE MONO EXTENDED REL 30 MG TABCR PO SCH (08:00)
[2023-04-20] MEDS: PANTOprazole 40 MG TAB PO SCH (08:00)
[2023-04-20] MEDS: ATORVASTATIN 40 MG TAB PO SCH (08:00)
[2023-04-20] MEDS: METOPROLOL SUCC 50MG EXT REL TAB PO SCH (08:00)
[2023-04-20] MEDS: VIBEGRON 75 MG TAB PO SCH (08:00)
[2023-04-20] MEDS: POLYETHYLENE (MIRALAX) 17 GM PACK PO SCH (08:02)
[2023-04-20] MEDS ORDERED: LANTUS PER UNIT CHARGE SC SCH (09:00)
[2023-04-20] MEDS: INSULIN ASPART PER UNIT CHARGE SC SCH ×3 (09:10→17:38)
[2023-04-20 09:44] LABS: Hematocrit (blood only) 28.4 % (37.0-47.0); Hemoglobin 9.5 g/dl (12.0-16.0); Mean Corpuscular Hemoglobin 33.5 pg (25.0-34.0); Mean Corpuscular Hgb Conc 33.5 g/dL (32.0-36.0); Mean Platelet Volume 10.3 fL (9.4-12.4); Platelet Count 23 K/uL (130-400); RDW Coefficient of Variation 18.9 % (11.5-14.5); RDW Standard Deviation 66.2 fL (36.4-46.3); Red Blood Count 2.84 M/uL (4.20-5.40); White Blood Count 4.97 K/ul (4.8-10.8)
[2023-04-20 09:45] LABS: Platelet Estimate Signific. Decreased (Normal)
[2023-04-20 09:56] LABS: Calcium 9.2 mg/dl (8.6-10.3)
[2023-04-20 10:02] LABS: BUN Creatinine Ratio 23.4 (10-20); Creatinine Clr Calc Pharmacy 82.5 ml/min; Est GFR (African American) 101.9 ml/min; Est GFR (Non-African American) 87.9 ml/min
[2023-04-20] MEDS: cefTRIAXone SODIUM 2,000 MG in DEXTROSE 5% 50 ML IV SCH (12:42)
--- NOTE | 2023-04-20 16:03 | Discharge Summary ---
Date of Service April 20, 2023 Admission HPI Per Admitting Provider History obtained from interview with the patient, chart review. Past medical history significant for myelodysplastic syndrome status post stem cell transplant in August 2021. recent biopsy shows recurrence of disease. Other relevant historytype 2 diabetes, hypothyroidism, hyperlipidemia, history of iron overload, hypomagnesemia, dehydration, diabetic retinopathy, interstitial lung disease, hypertension, coronary artery disease, GERD Last confinement from April 05 to April 08 with E. coli bacteremia secondary to left-sided pyelonephritis. She was discharged on oral Augmentin to be taken for 10 more days. Patient presents from home with mechanical fall. Patient reports generalized weakness since discharge from the hospital. She reports falling down and hitting her head. Reports pain in her right hip. Denies vision changes, headache, fever, chills, chest pain, shortness of breath or abdominal pain. On presentation to the ED, patient was afebrile, normotensive and saturating well on room air. CBC was remarkable for macrocytic anemia, platelet count of 24,000 consistent with history of mild dysplastic syndrome. Hemoglobin is stable. Briefly rates are within normal limits. Magnesium is 1.3. CT head, CT cervical spine negative for acute findings. Pelvic x-ray concerning for fracture. Hip CT shows confirmation of acute, comminuted and displaced greater trochanteric fracture. Admission Exam Per Admitting Provider Constitutional: Alert oriented x3; not in any distress. Respiratory: normal respiratory effort, lungs clear to auscultation, no wheeze, rales, rhonchi. Normal insp/exp effort, no accessory muscle use Cardiovascular: RRR, no murmur, no edema Vessels: no JVD or carotid bruit Chest: normal inspection of chest Abdomen: normal bowel sounds, soft, nontender, no hepatosplenomegaly Musculoskeletal: ROM painful while moving right hip. No overlying bruising. Skin: no rashes, warm and dry normal turgor Neurologic: PERRL, EOMI, accommodation nl, no face palsy, no dysarthria CN's II- XI intact bilaterally and moves all extremities Psychiatric: A+Ox3, euthymic affect Principal Diagnosis Right hip fracture Discharge Exam Constitutional WD/WN, vitals as above Respiratory normal respiratory effort, lungs clear to auscultation Cardiovascular Rate/Rhythm: regular rate and regular rhythm Vessels: normal peripheral pulses Extremities: no edema Gastrointestinal (Abdomen) Percussion/Palpation: abdomen soft; abdomen nontender Musculoskeletal S/p right hip surgery, CSM checks intact RLE, right hip and thigh soft to palpation Skin no rashes, warm and dry Neurologic no focal motor deficits Psychiatric A+Ox3, euthymic affect Discharge Data Allergies Allergy/AdvReac Type Severity Reaction Status Date / Time No Known Allergies Allergy Verified 07/12/21 10:31 Consultations 04/10/23 07:56 ED Decision to Admit Stat 04/10/23 10:10 Consult Orthopedic Surgery Routine Procedures Performed Operation Date: 04/13/23 07:00 Actual Procedures p Right Hip Cephalomedullary Nail(Right) - Mustapha Gaspar, Ordered Studies 04/10/23 06:25 CT cervical spine wo con Stat CT head/brain wo con Stat 04/10/23 08:28 CT hip RT wo con Stat 04/11/23 10:47 MR hip RT wo con Routine 04/13/23 FL hip RT 2-3V Routine Hospital Course (1) Closed fracture of right hip: Patient presented from home after a mechanical fall. CT head, CT cervical spine negative for acute findings. Pelvic x-ray concerning for fracture. Hip CT shows confirmation of acute, comminuted and displaced greater trochanteric fracture. Discussed with orthopedics(Dr. Gaspar); recommends to obtain MRI to evaluate for intertrochanteric extension. MRI hip was done ; acute intertrochanteric fracture of right femur. Displaced fracture involving the greater trochanteric with a nondisplaced intertrochanteric component which nearly extends to the lesser trochanter. S/p right hip cephalomedullary nailing on 04/13/[address] Gaspar. Preoperatively patient received 1 unit PRBC and 2 platelet on 04/12 by recommendation of patient's oncologist Dr. Keon Pa. 04/19/23 - Patient had been apixaban since April 13, 2.5 mg bid for DVT prophylaxis. Discussed with her hematology/oncology office, (Dr. Pa office)- given patient's thrombocytopenia, they do not recommend apixaban as long as platelets are less than 50,000. Apixaban is on hold now. Orthopedics notified and in agreement. (2) E coli bacteremia: Urine culture and blood culture from last admission consistent with E. coli which is pansensitive. Patient was discharged home on Augmentin. Changed to ceftriaxone while inpatient. She has completed a two week course. (3) Thrombocytopenia: (4) Myelodysplastic syndrome: S/p stem cell transplant August 2021 Recent biopsy showed recurrence of disease Follow-up with Dr. Pa on 05/0804/20/2023-Hgb 9.5, platelets 23 K (5) Postoperative anemia due to acute blood loss: In addition to preop transfusions, patient also received 1 unit PRBC on 04/16 and 04/17 Plan Chronic conditions: Type 2 diabetes mellitus Lantus and NovoLog per protocol while hospitalized Glycemic pharmacy consulted Resume home regimen at discharge History of hypothyroidism Stable, continue Synthroid. Hyperlipidemia Stable, on statin. Continue Lipitor History of coronary artery disease Stable, continue statin, Imdur and metoprolol Not on ASA due to chronic thrombocytopenia and anemia Hypertension BP controlled, continue metoprolol and Imdur Gastroesophageal reflux disease Controlled, on omeprazole Total Time Total Time Spent Total Time Spent (In Minutes): 35 Discharge Plan Discharge Items Patient Disposition: Home - Home Health Services Reason For Visit: Fall, Right Hip Pain Discharge Diagnosis: Right Hip Fracture Activity: As commented below Weightbearing: Right weightbearing Weightbearing Comment: As tolerated Non-emergency contact: Primary Care Provider and Surgeon Call non-emergency contact if: you have any medication questions, your pain is not controlled, your temperature is above 101.5, your wound has increased redness and your wound has increased drainage Follow-up/Referrals: Dhruv Moss MD [Primary Care Provider] - (Date & Time 04/25/2023 2:20 PM Provider Dhruv Moss MD Department Family Medicine [facility] ) Mustapha Gaspar DO [Surgeon] - (Follow up with Dr Gaspar in 2 weeks from the day of your surgery for your first post operative visit. ) Keon Pa MD [Outside Practitioners] - ( Date & Time 05/08/2023 9:00 Tresa Pa, [facility] Hematology Oncology [facility]) Diet: Carb Consistent or DM2 Addtl Attending Provider Instructions: You presented to the hospital with a fall and right hip pain and were found to have a right hip fracture. You had surgery on 04/13/23 to repair the fracture. You did receive a blood and platelet transfusion on 04/02/23. Due to low platelet counts, you will not be taking medication to prevent blood clots. You completed antibiotics from your recent urine and blood infection during this hospitalization. Follow-up with your PCP, orthopedics, purchasing manager/oncologist as scheduled. It was a pleasure taking care of you. If you need to reach a member of the [facility] team at [facility], please call [phone]. MARTA Gregory Add Computer Numerical Control Programmer Provider Instructions: [facility] DISCHARGE INSTRUCTIONS: HIP FRACTURE SELF CARE INSTRUCTIONS: A. You are to ambulate with a walker or crutches for approximately 6 weeks. B. You are WEIGHT BEARING TOLERATED on your operative lower extremity for at least 6 weeks. C. Wear low heeled shoes with non-slip soles D. Be sure that your floors are free of things that could trip you throw rugs, electrical cords, and small objects. Avoid wet and waxed floors, especially with crutches/walker/cane. E. Try to walk several times a day with rest periods between. F. You may shower 48 hours after surgery and get the incision area wet, but DO NOT soak or submerge incision area in water. (No baths, swimming pools, hot tubs) G. You may have a large, band-aid like dressing over your incision (Aquacel). This will remain on your incision for 7 days, and then can be removed. You CAN shower with this on. If incision is leaking through the dressing, please call the office . H. Do NOT apply soap or any ointment/lotions directly over incision. I. You may use ice as needed to operative site. SPECIAL CARE INSTRUCTIONS: VERY IMPORTANT TO READ AND REVIEW A. You may be at risk for phlebitis or blood clots. a. Wear surgical stockings (KELLY hose) for 2 weeks after surgery to improve circulation and reduce swelling. B. There are a few signs you need to watch for after you are home. Call [facility] at [phone] if you experience any of the following: a. If you have a temperature of 101 degrees or higher. b. Sudden increase in pain in your hip not relieved by rest or pain medication. c. Any fluid or drainage from the incision; redness of the incision. d. Shortness of breath or chest pain. C. Call your physician if: a. Temperature is greater than 101 degrees (F). b. Pain is not relieved by prescribed pain medications. c. Increase drainage or redness from incision. d. Unanswered questions or concerns. D. Pain Medication: a. You will be prescribed pain medication upon discharge that should last till your first post-operative appointment. b. If you experience nausea and/or skin rash, discontinue this medication and contact our office for an alternative medication. c. Caution- narcotic pain medication can cause constipation. FOLLOW UP VISIT: Please call [facility] at [phone] to schedule a follow up appointment 10-14 days from the date of your surgery date. Stand-Alone Forms: My [facility], Smoking Cessation Medications and DC Order Prescriptions: New polyethylene glycol 3350 [Miralax] 17 gram Powder In Packet 17 g PO DAILY PRN (Reason: constipation) Qty: 14 0RF Continued omeprazole 20 mg Capsule,Delayed Release(Dr/Ec) 20 mg PO DAILY tramadol 50 mg Tablet 50 mg PO Q6H PRN (Reason: Pain) metoprolol succinate 50 mg tablet extended release 24 hr 50 mg PO QAM isosorbide mononitrate 30 mg tablet extended release 24 hr 30 mg PO QAM venlafaxine [Effexor XR] 150 mg capsule,extended release 24hr 150 mg PO HS metformin 1,000 mg tablet 1,000 mg PO BIDM Novolin R FlexPen 100 unit/mL (3 mL) Insulin Pen 0 unit SUBCUT .SLIDING SCALE Levemir U-100 Insulin 100 unit/mL solution 22 unit SUBCUT HS cholecalciferol (vitamin D3) [Vitamin D3] 125 mcg (5,000 unit) Tablet 125 mcg PO QAM atorvastatin 40 mg tablet 40 mg PO DAILY acyclovir 800 mg tablet 800 mg PO BID levothyroxine 75 mcg tablet 75 mcg PO DAILY solifenacin 5 mg tablet 5 mg PO DAILY Myrbetriq 50 mg tablet extended release 24 hr 50 mg PO DAILY acetaminophen 325 mg Tablet 650 mg PO Q4H PRN (Reason: fever or pain) Qty: 30 0RF Discontinued amoxicillin-pot clavulanate 875-125 mg tablet 1 tab PO BID 10 Days Qty: 20 0RF Discharge Orders: Discharge Order (Routine); Ordered 04/20/23 Ordered By: Negar Crowder Admission Data Admit Date/Time: 04/10/23 08:57 Attending Provider: Moses Pagan Admit Provider: Sekou Reyna Primary Care Provider: Dhruv Moss Other Providers: Sekou Reyna ; Akash Kelley ; Vikram Rios ; Mery Nguyen ; Roberto Piedra ; Lorenza Guerrero ; Braeden Kathleen ; Fernando Yi ; Morris Montejo ; Tu Abrams ; Fernando Nichols ; Ike Farias ; Kirt Cloud ; Drew Khan ; Jerrell Ontiveros ; Lorenza Means ; Nilo Lomas ; Moses Pappas ; Park Curiel ; Won Rodriguez ; Jerrell Acevedo ; Negar Easton ; Mustapha Gaspar ; Fidelia Napoles ; Wellington Pinedo ; [facility] ; Radha Feliciano ; [facility] Other Interventions: Discharge Summary Assessment (RN) Last Done: 04/20/23 12:48 Supervising Physician Co-Signing Physician Notes Patient seen and examined by ia, care coordinated with MARTA Gregory, please refer to her note above for further detail. Patient with history of myelodysplastic syndrome, recently treated for UTI/bacteremia, now readmitted due to fall and hip fracture. Patient underwent hip fracture repair by orthopedic surgery on April 13. Currently she is sitting up in chair in no acute distress, she has been recovering well. Due to her thrombocytopenia, chemoprophylaxis such as apixaban (post-op) was not recommended by her purchasing manager. Patient is currently awake alert oriented answering appropriately, lungs are clear to auscultation, heart sounds regular, abdomen soft nontender nondistended. She finished antibiotic course. She will need to follow-up with her primary care provider, orthopedic surgeon, and purchasing manager. MD Ej
== END 2023-04-20 18:39 | disposition home health service (06) | DRG 481 ==
LOC: ED 06:16 → SUATTDRO 08:57 → 2N 08:57 → 3W 04-14 21:52

== ENCOUNTER 2024-02-26 04:23 | Inpatient (IN) ==
--- OUTSIDE RECORDS SUMMARY | 2024-02-26 04:32 | External Medical Summary ---
Author Name Unknown Address Unknown Organization [id number]:[facility] [place] [address] [place] [address] Laboratory Report Ordering Provider Test Date Status ANN MUNGUIA 02/21/2024 08:39:00 Final Observation Date Value Abnormality Reference (Units ) Status WBC, Total 02/21/2024 08:39:00 9.56 4.00-10.80 (K/uL) Final RBC 02/21/2024 08:39:00 1.94 3.85-5.15 (M/uL) Final Hemoglobin 02/21/2024 08:39:00 8.1 Below low normal 12.0-15.3 (g/dL) Final HCT 02/21/2024 08:39:00 23.9 Below low normal 36.0-45.2 (%) Final MCV 02/21/2024 08:39:00 123.2 81.5-97.5 (fL) Final MCH 02/21/2024 08:39:00 41.8 27.0-34.0 (pg) Final MCHC 02/21/2024 08:39:00 33.9 32.0-36.0 (g/dL) Final RDW 02/21/2024 08:39:00 14.8 11.5-15.5 (%) Final Platelets 02/21/2024 08:39:00 15 Below lower panic limits 140-400 (K/uL) Final MPV 02/21/2024 08:39:00 11.3 6.6-11.1 (fL) Final Nucleated erythrocytes/100 leukocytes [Ratio] in Blood by Automated count 02/21/2024 08:39:00 0 <=0 (/100 WBCs) Final Performing Location [facility] [place] - [facility]– [address] [place] [address]
--- OUTSIDE RECORDS SUMMARY | 2024-02-26 04:32 | External Medical Summary | Summary of Care ---
Author Name Unknown Organization [facility] Address [address] [place] [address] Phone [phone] Care Team Providers Care Senior Design Engineer Name Role Phone Dhruv Moss MD Primary Care Provide r Encounter Details Date Type Department Care Team (Late st Contact Info) Description 02/25/2024 Telephone Family Practice [facility] [address] [facility], Floor 1 Entrance A [address] [place] [address] Madie Nichols, [address] [place] [address] Allergies No known active allergiesdocumented as of this encounter (statuses as of 02/25/2024) Medications Medication Sig Dispensed Refills Start Date End Date Status BD Pen Needle Mini U/F 31G X 5 MM (Insulin Pen Needle)Indications:T ype 2 diabetes mellitus with hemoglobin A1c goal of less than 8.0% ([facility]) Use with xultophy once a day dx e11.9 100 Each 3 05/28/2021 Active Ondansetron HCl 8 MG Oral TabletIndications:MD Santos (myelodysplastic syndrome), high grade (HCC) Take 1 Tablet by mouth every 8 hours as needed for Nausea. 60 Tablet 3 10/12/2021 Active Nitroglycerin 0.4 MG Sublingual Tablet Sublingual (Nitrostat) Place 1 Tablet under the tongue every 5 minutes as needed for Pain, Chest. up to 3 doses in 15 minutes 25 Tablet 3 10/26/2021 Active Additional Information Patient taking differently:0.4 mg Sublingual Q5 MIN PRN, Pain, Chest, up to 3 doses in 15 minutes,Indications: chest pain, Reported on 12/06/2022 Diclofenac Sodium 1 % External GelIndications:knee pain Apply topically to affected area . Apply to bilateral knees 0 Active Prochlorperazine Maleate 10 MG Oral Tablet (Compazine)Indicatio ns:H/O allogeneic bone marrow transplant (HCC) Take by mouth 1 Tablet every 6 hours as needed for Nausea. 60 Tablet 3 12/09/2021 Active Goojet Delica Lancets 30GIndications:Type 2 diabetes mellitus with hemoglobin A1c goal of less than 8.0% ([facility]) Use to test blood sugar three times a day DXe11.9 300 Each 3 12/16/2021 Active HighFive Mobile In Vitro Strip (Glucose Blood)Indications:Ty pe 2 diabetes mellitus with hemoglobin A1c goal of less than 8.0% ([facility]) Use to test blood sugar three times a day DXe11.9 300 Strip 3 12/16/2021 Active HighFive Mobile Flex System w/Device Kit Use as directed . 0 12/16/2021 Active Acetaminophen 500 MG Oral Tablet Take 1 Tablet by mouth every 6 hours as needed. 0 Active Nystatin 650789 UNIT/GM External Cream Apply topically to affected area 2 times a day. Apply to affected area twice a day for 7 days. 45 g 0 01/04/2023 Active Acyclovir 800 MG Oral Tablet (Zovirax)Indications :MDS (myelodysplastic syndrome), high grade (HCC) Take 1 Tablet by mouth in the morning and 1 Tablet before bedtime. 60 Tablet 10 05/01/2023 Active Atorvastatin Calcium 40 MG Oral Tablet (Lipitor)Indications :Dyslipidemia, goal LDL below 70 TAKE 1 TABLET BY MOUTH IN THE MORNING 90 Tablet 2 05/01/2023 Active Metoprolol Succinate ER 50 MG Oral Tablet Extended Release 24 Hour (toPROL XL)Indications:HTN, goal below 140/90 Take 1 Tablet by mouth in the morning. 90 Tablet 3 05/01/2023 Active Myrbetriq 50 MG Oral Tablet Extended Release 24 Hour (Mirabegron ER)Indications:Urina ry incontinence, unspecified type Take 1 Tablet by mouth in the morning. 30 Tablet 11 05/01/2023 Active Solifenacin Succinate 5 MG Oral Tablet (VESIcare)Indication s:Urinary incontinence, unspecified type Take 1 Tablet by mouth in the morning. 30 Tablet 12 05/01/2023 Active Premarin 0.625 MG/GM Vaginal Cream (Estrogens Conjugated) Administer 1 g into the vagina at bedtime. As directed. 42.5 g 5 05/10/2023 Active Additional Information Patient not taking.Reported on 01/31/2024 Omeprazole 20 MG Oral Capsule Delayed Release (PriLOSEC)Indication s:MDS (myelodysplastic syndrome), high grade (HCC) Take 1 capsule by mouth twice daily 180 Capsule 2 06/10/2023 Active NovoLIN R 100 UNIT/ML Injection Solution (insulin REGULAR human)Indications:Ty pe 2 diabetes mellitus with hemoglobin A1c goal of less than 8.0% (HCC) Inject 8 units with breakfast, 4 units with lunch, and 6 units with dinner + sliding scale of 1 units per every 20 over 140 MAX DAILY DOSE 50 units 50 mL 5 07/25/2023 Active Venlafaxine HCl ER 150 MG Oral Capsule Extended Release 24 Hour (Effexor XR)Indications:Recur rent major depressive disorder, in partial remission (HCC) TAKE ONE CAPSULE BY MOUTH EVERY DAY do not cut, crush, or chew 90 Capsule 0 12/18/2023 Active Isosorbide Mononitrate ER 30 MG Oral Tablet Extended Release 24 Hour (Imdur)Indications:C oronary artery disease involving caddo coronary artery of caddo heart without angina pectoris,HTN, goal below 140/90 TAKE 1 TABLET BY MOUTH IN THE MORNING 90 Tablet 0 12/18/2023 Active Levemir 100 UNIT/ML Subcutaneous Solution (insulin Detemir)Indications: Type 2 diabetes mellitus with hemoglobin A1c goal of less than 8.0% (HCC) Inject 20 Units under the skin in the morning. 0 01/02/2024 Active Levothyroxine Sodium 88 MCG Oral Tablet (Levoxyl)Indications :Postoperative hypothyroidism TAKE ONE TABLET BY MOUTH daily first thing in the morning at least 30 minutes prior to breakfast or other meds 90 Tablet 1 01/04/2024 Active metFORMIN HCl 1000 MG Oral Tablet (Glucophage)Indicati ons:Type 2 diabetes mellitus with hemoglobin A1c goal of less than 8.0% (HCC) TAKE 1 TABLET BY MOUTH TWICE DAILY WITH MORNING AND EVENING MEALS 180 Tablet 1 01/17/2024 Active Magnesium 100 MG Oral Capsule Take 1 Capsule by mouth in the morning. 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 Date of Transplant: 09/01/2021 Conditioning Regimen: Fludarabine / Busulfan 2 with post-transplant Cytoxan ABO/Rh: A Positive CMV status: CMV Positive--- GRID: [id number] / DID: [id number] Matched Unrelated 10/24--- DPB1 Match ABO/Rh: A Positive CMV status: Negative Problem Noted Date Diagnosed Date Age-related osteoporosis wit hout current pathological fracture 11/03/2023 S/P right hip fracture 06/12/2023 Neutropenia 06/05/2023 Symptomatic stenosis of righ t carotid artery without infarction 05/24/2023 Overview: 05/24/23=50-69% on right and <50% on left. Repeat 1 year Acute cystitis without hematuria 05/09/2023 Last Assessment & Plan: Given history of urosepsis, will opt to treat with Keflex 500 mg p.o. 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 No additional discussions occurred today due to time constrictions. Neuropathy due to chemotherapeutic drug 02/29/20 22 Type 2 diabetes mellitus wit h retinopathy without macular edema 02/28/2022 Dehydration 09/24/2021 H/O allogeneic bone marrow transplant 09/21/2021 Hypomagnesemia 07/27/2021 Stem cells transplant status 07/25/2021 Gastro-esophageal reflux disease without esophag itis 06/01/2021 Last Assessment & Plan: Stable with patient currently asymptomatic Patient is taking Prilosec 20 mg twice daily Assessment/plan: Stable GERD. Patient will continue on current dose of Prilosec. Iron overload, transfusional 02/26/2021 MDS (myelodysplastic syndrome), high grade 07/27 Overview: diagnosed in 2019, received 9 cycles of Dacogen, had a very good response, and underwent clinic stem cell transplantation in August 2021 bone marrow done lately on 2 occasions shows recurrence of underlying myelodysplastic syndrome with the similar chromosomal changes suggest graft failure. Does not have any evidence of hqibw-jyagbd-clwe disease Last Assessment & Plan: Continues to follow with hematology CBCd weekly and transfuse to maintain hgb >8 Hemoglobin Results: Lab Results Component Value Date/Time HGB - [facility] 9.7 (L) 11/02/2023 02:15 PM HGB - [facility] 9.8 (L) 10/25/2023 09:19 AM HGB - [facility] 9.6 (L) 10/18/2023 08:51 AM HGB - [facility] 8.5 (L) 12/10/2020 12:29 PM HGB - [facility] 8.5 (L) 12/07/2020 08:43 AM HGB - [facility] 9.5 (L) 12/03/2020 09:20 AM Microalbuminuria due to type 2 diabetes mellitus 10/30/2019 Insulin-requiring or dependent type II diabetes mellitus 07/23/2018 Recurrent major depressive disorder, in partial remission 07/23/2018 Last Assessment & Plan: Stable -continue venlafaxine Coronary artery disease invo lving caddo coronary artery of caddo heart without angina pectoris 06/12/2017 Overview: S/P EDIL to LAD on 06/12/17 Last Assessment & Plan: No angina - Continue atorvastatin, isosorbide, metoprolol - no ASA due to thrombocytopenia Dyslipidemia, goal LDL below 70 11/25/2011 Last Assessment & Plan: Patient having no issues. She continues on Lipitor 40 mg daily Last lab I will was that I can find were from [phone] Assessment/plan: Dyslipidemia with patient currently taking Lipitor 40 mg daily without any issues. Recommend that patient levels drawn at next lab draw Type 2 diabetes mellitus wit h hemoglobin A1c goal of less than 8.0% 12/29/2009 Overview: ICD-10 update of inactive term Last Assessment & Plan: "RED FLAG" Diabetic symptoms: Rapid Weight Loss, Confusion, and Vision Changes Goal HgbA1c <8 Diabetic Complications Vascular (examples: PVD, PAD, CAD, CVA) Neurologic (example: Peripheral Neuropathy) Medication Regimen Metformin Basal/Long Acting Insulin Bolus/Short Acting Insulin DM Secondary Prevention Moderate-High Intensity Statin Additional Comments Follows with MTM Acquired hypothyroidism 12/01/2009 Last Assessment & Plan: Continue Synthroid Generalized osteoarthritis of multiple sites HTN, goal below 140/90 Last Assessment & Plan: BP stable. - continue medication regimen as noted above. documented as of this encounter (statuses as of 02/25/2024) Resolved Problems Problem Noted Date Diagnosed Date Resolved Date Candidiasis, esophageal 03/10/202205/14 Last Assessment & Plan: The patient has been using nystatin for oral candidiasis but continues to have symptoms when swallowing. On exam it looks like she still has some posterior can diocese which could go further and be esophageal candidiasis. The standard for treating esophageal candidiasis is using Diflucan. Thus I will treat the patient with Diflucan. Assessment/plan: Esophageal candidiasis. Will proceed with fluconazole 100 mg tablet daily for 21 days. She will take 200 mg on day 1 Immunodeficiency due to drugs 02/28/2022 03/10/2022 Last Assessment & Plan: Chemotherapy has been completed MICHELE (acute kidney injury) 10/27/2021 Encounter for antineoplastic chemotherapy 09/15/2021 09/21/2021 Esophagitis 09/12/2021 09/21/2021 Type 2 diabetes mellitus wit h hyperglycemia, with long-term current use of insulin 08/30/2021 Last Assessment & Plan: Is aPatient currently has been having some issues maintaining her blood glucose levels, checking them and overall care of her glucose. She is scheduled to get a Jojo system later this week which will help her better monitor her glucose so that she can appropriately give herself her insulin. Assessment/plan: Diabetes type 2 with long-term use of insulin that has been lately having some issues with maintaining her levels because of difficulties remembering and doing her blood glucose levels. She is scheduled later this week to get a Jojo system which should help with monitor her glucose and thus when when not to take her insulin. 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 02/05/2019 S/P primary angioplasty with coronary stent 06/12/2017 04/23/2019 Overview: EDIL to LAD on 06/12/17 Venous stasis dermatitis of both lower extremities 07/04/2016 12/20/2018 Does not have health insurance 10/25/2012 05/01/2013 Depression 12/01/2009 07/23/2018 HYPERTENSION NOS 12/25/2013 MIGRAINE, UNSPECIFIED, WITHO UT MENTION OF INTRACTABLE MIGRAINE 07/23/2018 documented as of this encounter (statuses as of 02/25/2024) Immunizations Name Administration Dates Next Due COVID-19 mRNA, LNP-s, No Pre serve, 2-Dose Series (Pfizer) 02/05/2021,01/08/2021 COVID-19, LNP-s, No Preserve , Ye-sucrose, Ages 12+ (Pfizer) 12/06/2021 Pneumococcal Conjugate Vacc, 13 Valent (Prevnar) 06/10/2022,10/09/2015 Pneumococcal Polysaccharide PPV23 (Pneumovax) 01/06/2017,03/30/2011 Seasonal Influenza Virus Vac cine, Unspecified Formulation 07/25/2019,07/23/2018,07/27/2017,01/06,10/09/2015,09/03/2014,08/27/2013 ,08/13/2013,08/27/2012,11/25/2011,11/2009,10/13/2009 Seasonal Influenza, PF, 6 M & above, IM , (FluLaval or Fluzone) 07/23/2018 Seasonal Influenza, Quadriva lent Hd, 65+ Yrs 07/17/2020,07/13/2020 Seasonal Influenza, Quadriva lent, No Preserve, IM 07/27/2017,01/06/2017,10/09/2015 Seasonal Influenza, Split, I IV3, No Preserve, Inj 08/27/2013,11/25/2011,08/13/2010,10/13 Seasonal Influenza, Split, I IV3, With Preserve, Inj 09/03/2014,08/13/2013 Seasonal Influenza, Trivalen t, Adjuvanted, 65+ yrs 07/25/2019 TDAP (age 10 and older)(Boostrix) 11/10/2016 TDAP (age 11 and older)(Adacel) 03/30/2011 Zoster Vaccine Recombinant (Shingrix) ,07/17/2020,07/13/2020,07/23 documented as of this encounter Social History Tobacco Use Types Packs/Day Years Used Date Smoking Tobacco: Never Smokeless Tobacco: Never Alcohol Use Standard Drinks/Week Comments No 0 (1 standard drink = 0.6 oz pur e alcohol) PHQ-2 Answer Date Recorded PHQ Adult Total Score 1 12/22/2023 Hunger Vital Sign Answer Date Recorded Within the past 12 months, y ou worried that your food would run out before you got the money to buy more. Never true 12/22/19 24 Within the past 12 months, t he food you bought just didn't last and you didn't have money to get more. Never true 12/22/2023 Sex and Gender Information Value Date Recorded Sex Assigned at Female 12/12/2022 2:15 PM EST Gender Identity Female 12/12/2022 2:15 PM EST Sexual Orientation Straight 12/12/2022 2: 27 PM EST Job Start Date Occupation Industry Not on file Not on file Not on file documented as of this encounter Functional Status Functional Status Response Date of Assess ment Are you deaf or do you have serious difficulty hearing? No 08/27/2021 Are you blind or do you have serious difficulty seeing, even when wearing glasses? Yes-cant read small print,diab retinopathy,corneal scars dt shingles 08/27/2021 Do you have serious difficul ty walking or climbing stairs? (5 years old or older) No 08/27/2021 Do you have difficulty dress ing or bathing? (5 years old or older) No 08/27/2021 Because of a physical, menta l, or emotional condition, do you have difficulty doing errands alone such as visiting a doctor s office or shopping? (15 years old or older) Yes-cant drive 08/27/2021 Cognitive Status Response Date of Assessm ent Because of a physical, menta l, or emotional condition, do you have serious difficulty concentrating, remembering, or making decisions? (5 years old or older) No 08/27/2021 documented as of this encounter Miscellaneous Notes * Telephone Encounter - Madie Nichols DO - 02/25/2024 2:21 PM EDT Seeing by home care, frequ dehydration, will give 1L NSS documented in this encounter Plan of Treatment Upcoming Encounters Date Type Department Care Team (Late st Contact Info) Description 02/27/2024 2:00 PM EDT Office Visit Pharmacy, [address] [place] [id number] [place] [address] 02/28/2024 7:10 AM EDT [facility] [address] [place] [address] [facility] [address] [place] [address] 03/06/2024 7:10 AM EDT [facility] [address] [place] [address] [facility] [address] [place] [address] 03/13/2024 7:10 AM EDT [facility] [address] [place] [address] [facility] [address] [place] [address] 03/13/2024 11:30 AM EDT Home Visit [facility] [place], [facility] [address] [place] [id number] Marisa Pacheco RN [address] [place] [address] 03/20/2024 7:10 AM EDT [facility] [address] [facility] [place], [place] [address] [facility] [address] [facility] [place], [place] [address] 03/27/2024 7:10 AM EDT [facility] [address] [facility] [place], [place] [address] [facility] [address] [facility] [place], [place] [address] 03/28/2024 11:00 AM EDT Office Visit Hematology/Oncology [facility] [address] [facility], [place] [phone] Sharon Mejia CRNP [address] [place], [place] [address] [address] 03/28/2024 11:30 AM EDT Immunization/Injecti on Hematology/Oncology Treatment, [place] [address] [facility], [place] [phone] Nurse, Med [address] [facility], [place] [address] 04/03/2024 7:10 AM EDT [facility] [address] [place], [place] [address] [facility] [address] [facility] [place], [place] [address] 04/10/2024 7:10 AM EDT [facility] [address] [place], [place] [address] [facility] [address] [facility] [place], [place] [address] 04/17/2024 7:10 AM EDT [facility] [address] [place], [place] [address] [facility] [address] [facility] [place] [address] 04/24/2024 7:10 AM EDT [facility] [address] [place] [address] [facility] [address] [place] [address] 05/01/2024 7:10 AM EDT [facility] [address] [place] [address] [facility] [address] [place] [address] 05/08/2024 7:10 AM EDT [facility] [address] [place] [address] [facility] [address] [place] [address] 05/15/2024 7:10 AM EDT [facility] [address] [facility] [place] [address] [facility] [address] [place] [address] 05/22/2024 7:10 AM EDT [facility] [address] [place] [address] [facility] [address] [place] [address] 05/29/2024 7:10 AM EDT [facility] [address] [facility] [place] [address] [facility] [address] [place] [address] 06/05/2024 7:10 AM EDT [facility] [address] [place] [address] [facility] [address] [facility] [place] [address] 06/12/2024 7:10 AM EDT [facility] [address] [place] [address] [facility] [address], [place] [address] 06/19/2024 7:10 AM EDT [facility] [address] [place] [address] [facility] [address], [place] [address] 06/26/2024 7:10 AM EDT [facility] [address] [place] [address] [facility] [address] [place] [address] [address] 07/02/2024 1:00 PM EDT Office Visit Family Medicine [address] [place] [phone] [address] [place] [address] 07/03/2024 7:10 AM EDT [facility] [address] [place] [address] [address] [facility] [address] [place] [address] 07/03/2024 1:30 PM EDT Imaging Radiology [address] [place] [address] 07/10/2024 7:10 AM EDT [facility] [address] [place] [address] [address] [facility] [address] [place] [address] [address] 07/17/2024 7:10 AM EDT [facility] [address] [place] [address] [address] [facility] [address] [place], [place] [address] 07/24/2024 7:10 AM EDT [facility] [address] [place] [address] [facility] [address] [place] [address] 07/31/2024 7:10 AM EDT [facility] [address] [place] [address] [facility] [address] [place] [address] 08/07/2024 7:10 AM EDT [facility] [address] [place] [address] [facility] [address] [place], [place] [address] 12/24/2024 2:30 PM EST Nurse Only Ancillary [address] [place] [address] [place], Nurse Annual [address] [place] [address] 01/13/2025 11:40 AM EST Office Visit Family Medicine [address] [place] [phone] Dhruv Moss MD [address] [place] [address] [place] [address] Scheduled Procedures Name Priority Associated Diagnoses Date/Ti me COLONOSCOPY FLEXIBLE PROXIMA L DIAGNOSTIC Recall Encounter for screening colonoscopy Health Maintenance Due Date Last Done Comments COVID-19 Vaccine (2022- season) 2023 12/06/2021, 02/05/2021, 01/08/2021 *BISPHONATE OR OTHER ACCEPTABLE MEDICATION NEEDED FOR OSTEOPOROSIS (REFER TO SMARTSET #1146) 11/06/2023 COLONOSCOPY-EVERY 5 YRS AGES 18-100 05/06/2024 05/06/2019, 05/06/2019 Diabetic Eye Exam 05/12/2024 05/12/2023, , 05/12/2023, Additional history exists HbA1c 05/20/2024 11/20/2023, 11/14, 08/30/2022, Additional history exists Diabetic Foot Exam 06/05/2024 06/05/2023, 0 06/03/2022, 06/01/2021, Additional history exists Influenza Vaccine (FLU shot) (Season Ended) 2024 07/17/2020, 07/13/2020, 07/25/2019, Additional history exists Albumin/Creatinine Ratio 09/15/2024 023, 03/08/2022, 10/29/2019, Additional history exists TSH 01/02/2025 01/02/2024, 11/14, 09/12/2022, Additional history exists GFR 01/23/2025 01/24/2024, 05/14, 05/31/2023, Additional history exists DXA Scan 06/13/2025 06/13/2023, 080 11/2022, 03/16/2015 DTaP,Tdap,and Td Vaccines (3 - Td or Tdap) 11/10/2026 11/10/2016, 03/30/2011 VITAMIN D LEVEL ONCE IN A LIFETIME-USE SMARTSET# 53410 Completed 05/11/2015 Zoster Vaccines Completed 10/30/2020, 02/2020, 07/13/2020, Additional history exists Pneumococcal Vaccine: 65+ Years Completed 06/10/2022, 01/06/2017, 10/09/2015, Additional history exists GARDASIL-HPV IMMUNIZATION SERIES Aged Out No longer eligible based on patient's age to complete this topic Hepatitis B Aged Out No longer eligi ble based on patient's age to complete this topic MENINGOCOCCAL (MENACTRA/MENVEO) Aged Out No longer eligible based on patient's age to complete this topic documented as of this encounter Medical Devices Implanted Type Area Raw Juice Weigher Device Identifier Shelf Expiration Date Model / Serial / Lot Port Pwr Mri Isp Profile - [id number] Implanted:Qty: 1 on 07/24/2020 by Akash Castillo MD at OR [facility] Right: Chest CR BARD : PERIPHERAL VASCULAR 04/12/2021 [id number] / / [id number] documented as of this encounter Visit Diagnoses Diagnosis Dehydration- Primary documented in this encounter Advance Directives Latest Code Status on File Code Status Date Activated Date Inactivated Comments Full Code 08/27/2021 1:10 PM 09/21/2021 5:49 PM This order reflects the patients wishes and were consensually agreed upon. Question Answer Comments Discussion of Advance Directives occurred with: Patient/Family Does the patient have a Living Will? No Does the patient have Health Care Power of Bill Cutter? No Code Status History Code Status Date Activated Date Inactivated Comments Full Code 07/27/2021 7:04 PM 07/31/2021 5:19 PM This order reflects the patients wishes and were consensually agreed upon. Question Answer Comments Discussion of Advance Directives occurred with: Patient Does the patient have a Living Will? No Does the patient have Health Care Power of Bill Cutter? No Full Code 07/25/2021 12:43 PM 07/25/2021 11:03 PM Thi s order reflects the patients wishes and were consensually agreed upon. Question Answer Comments Discussion of Advance Directives occurred with: Patient/Family Does the patient have a Living Will? No Does the patient have Health Care Power of Bill Cutter? No Full Code 06/12/2017 2:29 PM 06/12/2017 10:37 PM This order reflects the patients wishes and were consensually agreed upon. Question Answer Comments Discussion of Advance Directives occurred with: Not Discussed Does the patient have a Living Will? No Does the patient have Health Care Power of Bill Cutter? No Healthcare Agents on File Name Relationship Healthcare Agent Relationshi p Communication [facility] Adult Child Health Care Agent Care Teams Senior Design Engineer Relationship Specialty Start Date End Date Dhruv Moss MD [address] [place], [place] [address] [id number] PCP - General Family Medicine 08/27/21 documented as of this encounter
--- OUTSIDE RECORDS SUMMARY | 2024-02-26 04:32 | External Medical Summary ---
Author Name Unknown Address Unknown Organization K[facility] [address] [place] [address] Laboratory Report Ordering Provider Test Date Status ANN MUNGUIA 01/31/2024 08:17:00 Final Observation Date Value Abnormality Reference (Units ) Status WBC, Total 01/31/2024 08:17:00 7.75 4.00-10.80 (K/uL) Final RBC 01/31/2024 08:17:00 2.05 3.85-5.15 (M/uL) Final Hemoglobin 01/31/2024 08:17:00 8.4 Below low normal 12.0-15.3 (g/dL) Final HCT 01/31/2024 08:17:00 24.7 Below low normal 36.0-45.2 (%) Final MCV 01/31/2024 08:17:00 120.5 81.5-97.5 (fL) Final MCH 01/31/2024 08:17:00 41.0 27.0-34.0 (pg) Final MCHC 01/31/2024 08:17:00 34.0 32.0-36.0 (g/dL) Final RDW 01/31/2024 08:17:00 13.6 11.5-15.5 (%) Final Platelets 01/31/2024 08:17:00 11 Below lower panic limits 140-400 (K/uL) Final MPV 01/31/2024 08:17:00 12.3 6.6-11.1 (fL) Final Performing Location [facility] [address] [place] [address]
--- OUTSIDE RECORDS SUMMARY | 2024-02-26 04:32 | External Medical Summary | Summary of Care ---
Author Name Unknown Organization [facility] Address [address] [place] [address] Phone [phone] Care Team Providers Care Doctor Of Nurse Anesthesia Name Role Phone Dhruv Moss MD Primary Care Provide r Reason for Visit * Reason Comments Procedure Port flush Encounter Details Date Type Department Care Team (Late st Contact Info) Description 12/15/2023 2:00 PM EST Immunization/I njection Hematology/Oncology Treatment, [place] [address] [place] [address] Nurse, Med [address] [place] [id number] MDS (myelodysplastic syndrome), high grade (HCC)*; Hypomagnesemia; H/O allogeneic bone marrow transplant (HCC); Dehydration Allergies No known active allergiesdocumented as of this encounter (statuses as of 02/06/2024) Medications Medication Sig Dispensed Refills Start Date End Date Status BD Pen Needle Mini U/F 31G X 5 MM (Insulin Pen Needle)Indications :Type 2 diabetes mellitus with hemoglobin A1c goal of less than 8.0% ([facility]) Use with xultophy once a day dx e11.9 100 Each 3 1 Active Ondansetron HCl 8 MG Oral TabletIndications: MDS (myelodysplastic syndrome), high grade (HCC) Take 1 Tablet by mouth every 8 hours as needed for Nausea. 60 Tablet 3 1 Active Nitroglycerin 0.4 MG Sublingual Tablet Sublingual (Nitrostat) Place 1 Tablet under the tongue every 5 minutes as needed for Pain, Chest. up to 3 doses in 15 minutes 25 Tablet 3 1 Active Additional Information Patient taking differently:0.4 mg Sublingual Q5 MIN PRN, Pain, Chest, up to 3 doses in 15 minutes,Indications: chest pain, Reported on 12/06/2022 Diclofenac Sodium 1 % External GelIndications:kne e pain Apply topically to affected area . Apply to bilateral knees 0 Active Prochlorperazine Maleate 10 MG Oral Tablet (Compazine)Indicat ions:H/O allogeneic bone marrow transplant (HCC) Take by mouth 1 Tablet every 6 hours as needed for Nausea. 60 Tablet 3 2 Active NewAerTouch Delica Lancets 30GIndications:Typ e 2 diabetes mellitus with hemoglobin A1c goal of less than 8.0% ([facility]) Use to test blood sugar three times a day DXe11.9 300 Each 3 2 Active OneTouch Verio In Vitro Strip (Glucose Blood)Indications: Type 2 diabetes mellitus with hemoglobin A1c goal of less than 8.0% ([facility]) Use to test blood sugar three times a day DXe11.9 300 Strip 3 2 Active [employer] Verio Flex System w/Device Kit Use as directed . 0 2 Active Acetaminophen 500 MG Oral Tablet Take 1 Tablet by mouth every 6 hours as needed. 0 Active Nystatin 144938 UNIT/GM External Cream Apply topically to affected area 2 times a day. Apply to affected area twice a day for 7 days. 45 g 0 3 Active Acyclovir 800 MG Oral Tablet (Zovirax)Indicatio ns:MDS (myelodysplastic syndrome), high grade (HCC) Take 1 Tablet by mouth in the morning and 1 Tablet before bedtime. 60 Tablet 10 3 Active Atorvastatin Calcium 40 MG Oral Tablet (Lipitor)Indicatio ns:Dyslipidemia, goal LDL below 70 TAKE 1 TABLET BY MOUTH IN THE MORNING 90 Tablet 2 3 Active Metoprolol Succinate ER 50 MG Oral Tablet Extended Release 24 Hour (toPROL XL)Indications:HTN , goal below 140/90 Take 1 Tablet by mouth in the morning. 90 Tablet 3 3 Active Myrbetriq 50 MG Oral Tablet Extended Release 24 Hour (Mirabegron ER)Indications:Uri nary incontinence, unspecified type Take 1 Tablet by mouth in the morning. 30 Tablet 11 3 Active Solifenacin Succinate 5 MG Oral Tablet (VESIcare)Indicati ons:Urinary incontinence, unspecified type Take 1 Tablet by mouth in the morning. 30 Tablet 12 3 Active Premarin 0.625 MG/GM Vaginal Cream (Estrogens Conjugated) Administer 1 g into the vagina at bedtime. As directed. 42.5 g 5 3 Active Omeprazole 20 MG Oral Capsule Delayed Release (PriLOSEC)Indicati ons:MDS (myelodysplastic syndrome), high grade (HCC) Take 1 capsule by mouth twice daily 180 Capsule 2 3 Active NovoLIN R 100 UNIT/ML Injection Solution (insulin REGULAR human)Indications: Type 2 diabetes mellitus with hemoglobin A1c goal of less than 8.0% (HCC) Inject 8 units with breakfast, 4 units with lunch, and 6 units with dinner + sliding scale of 1 units per every 20 over 140 MAX DAILY DOSE 50 units 50 mL 5 3 Active Cholecalciferol (VITAMIN D3) 5000 UNITS TabletIndications: supplement Take 1 Tablet by mouth in the morning. 0 5 024 Discontinued Magnesium 100 MG Oral TabletIndications: supplement Take 1 Tablet by mouth in the morning. Pt states every 3 days. 0 024 Discontinued Isosorbide Mononitrate ER 30 MG Oral Tablet Extended Release 24 Hour (Imdur)Indications :Coronary artery disease involving [place] coronary artery of [place] heart without angina pectoris,HTN, goal below 140/90 Take 1 Tablet by mouth in the morning. 90 Tablet 3 3 024 Discontinued metFORMIN HCl 1000 MG Oral Tablet (Glucophage)Indica tions:Type 2 diabetes mellitus with hemoglobin A1c goal of less than 8.0% (HCC) TAKE 1 TABLET BY MOUTH TWICE DAILY WITH MORNING AND EVENING MEALS 180 Tablet 1 3 024 Discontinued(Re fill) traMADol HCl 50 MG Oral Tablet (Ultram)Indication s:S/P allogeneic bone marrow transplant (HCC) Take 1 Tablet by mouth every 6 hours as needed for Other (pain). 30 Tablet 0 3 024 Discontinued(Me dication List Clean Up) Venlafaxine HCl ER 150 MG Oral Capsule Extended Release 24 Hour (Effexor XR)Indications:Rec urrent major depressive disorder, in partial remission (HCC) TAKE 1 CAPSULE BY MOUTH ONCE DAILY . DO NOT CUT, CRUSH OR CHEW 90 Capsule 1 3 024 Discontinued Amoxicillin-Pot Clavulanate 875-125 MG Oral Tablet (Augmentin) Take 1 Tablet by mouth in the morning and 1 Tablet before bedtime. 0 3 024 Discontinued Polyethylene Glycol 3350 17 GM/SCOOP Oral Powder (Miralax) Take 17 g by mouth in the morning. 0 3 024 Discontinued(Me dication List Clean Up) Levemir 100 UNIT/ML Subcutaneous Solution (insulin Detemir)Indication s:Type 2 diabetes mellitus with hemoglobin A1c goal of less than 8.0% ([facility]) Inject 18 Units under the skin at bedtime. 30 mL 3 3 024 Discontinued Levemir 100 UNIT/ML Subcutaneous Solution (insulin Detemir)Indication s:Type 2 diabetes mellitus with hemoglobin A1c goal of less than 8.0% ([facility]) Inject 18 Units under the skin at bedtime. 15 mL 3 3 024 Discontinued(Me dication List Clean Up) Levothyroxine Sodium 75 MCG Oral Tablet (Levoxyl)Indicatio ns:Postoperative hypothyroidism TAKE ONE TABLET BY MOUTH daily first thing in the morning at least 30 minutes prior to breakfast or other meds 90 Tablet 0 3 024 Discontinued Hospital, Clinic, or Other Facility Administered Medication Ordered Dose Route Frequency Start Date End Date Status NSS 0.9% 1,000 mL bolus infusionIndications:MDS (myelodysplastic syndrome), high grade (HCC),Stem cells transplant status (HCC),Acquired hypothyroidism 1000 mL IV DAILY PRN 12/08/2021 Active bevaCIZumab (Avastin) inj 1.25 mgIndications: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 Date of Transplant: 09/01/2021 Conditioning Regimen: Fludarabine / Busulfan 2 with post-transplant Cytoxan ABO/Rh: A Positive CMV status: CMV Positive--- GRID: [id number] / DID: [id number] Matched Unrelated 10/24--- DPB1 Match ABO/Rh: A [...] Thrombocytopenia 12/06/2022 Last Assessment & Plan: Platelets [id number] on 03/20 Questionable hematuria Urinary incontinence 09/12/2022 History of immunosuppression therapy 04/19/2022 ACP (advance care planning) 03/10/2022 Last Assessment & Plan: ACP nose done by Lyudmila Sterling December 15, 2021. No additional discussions occurred today due to time constrictions. 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 Does not have any evidence of ydivk-wdzyed-pcft disease Last Assessment & Plan: Continues to [...] -continue venlafaxine Coronary artery disease invo lving [place] coronary artery of [place] heart without angina pectoris 06/12/2017 Overview: S/P EDIL to LAD on 06/12/17 Last Assessment & Plan: No angina - Continue atorvastatin, isosorbide, metoprolol - no ASA due to thrombocytopenia Dyslipidemia, goal LDL below 70 11/25/2011 Last Assessment & Plan: Patient having no issues. 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 0205/2019 S/P primary angioplasty with coronary stent 06/12/2017 04/23/2019 Overview: EDIL to LAD on 06/12/17 Venous stasis dermatitis of both lower extremities 07/04/2016 12/20/2018 Does not have health insurance 10/25/2012 05/01/2013 Depression 12/01/2009 07/23/2018 HYPERTENSION NOS 12/25/2013 MIGRAINE, UNSPECIFIED, WITHO UT MENTION OF INTRACTABLE MIGRAINE 07/23/2018 documented as of this encounter (statuses as of 02/06/2024) Immunizations Name Administration Dates Next Due COVID-19 [...] Answer Date Recorded PHQ Adult Total Score 0 12/12/2022 Hunger Vital Sign Answer Date Recorded Within the past 12 months, y ou worried that your food would run out before you got the money to buy more. Never true 12/12/19 23 Within the past 12 months, t he food you bought just didn't last and you didn't have money to get more. Never true 12/12/2022 Sex and Gender Information Value Date Recorded [...] No 08/27/2021 documented as of this encounter Nursing Notes * Emma Olivo, RN - 12/15/2023 2:12 PM EST Chair 12. VAD (Venous Access Device) accessed with #19G 3/4" without difficulty. VAD flushed with 10 ml NSS and Heparin 5 ml (100 units/ml). Kincaid needle removed intact. documented in this encounter Plan of Treatment Upcoming Encounters Date Type Department Care Team (Late st Contact Info) Description 02/07/2024 10:40 AM EDT Laboratory Lab Mobile Phlebotomy [facility] [address] [place] [address] [facility], Gml Mobile Home Draw [address] [place] [address] 02/14/2024 10:40 AM EDT Laboratory Lab Mobile Phlebotomy [facility] [address] [place] [address] Gm, Gml Mobile Home Draw [address] [place] [address] 02/21/2024 10:40 AM EDT Laboratory Lab Mobile Phlebotomy [facility] [address] [place] [address] [facility], Gml Mobile Home Draw [address] [place] [address] 02/27/2024 2:00 PM EDT Office Visit Pharmacy, [address] [place] [address] [place] [address] 03/13/2024 11:30 AM EDT [facility] [address] [facility] [place] [address] Marisa Pacheco RN [address] [facility] [place] [address] 03/28/2024 11:00 AM EDT Office Visit Hematology/Oncology [facility] [place] [address] [place] [phone] Sharon Mejia CRNP [address] [place] [address] 03/28/2024 11:30 AM EDT Immunization/Injecti on Hematology/Oncology Treatment, [place] [address] [facility] [place] [place] [address] Nurse, Med [address] [facility] [place] [address] 07/02/2024 1:00 PM EDT Office Visit Family Medicine [address] [place] [phone] Abby Bennett CRNP [address] [place] [address] [place] [address] 07/03/2024 1:30 PM EDT Imaging Radiology [address] [place] [address] 12/24/2024 2:30 PM EST Nurse Only Ancillary [address] [place] [address] [place], Nurse Annual [address] [place] [address] 01/13/2025 11:40 AM EST Office Visit [address] [place] [phone] Dhruv Moss MD [address] [place] [address] [place] [address] Scheduled Procedures Name Priority Associated Diagnoses Date/Ti me COLONOSCOPY FLEXIBLE PROXIMA L DIAGNOSTIC Recall Encounter for screening colonoscopy Health Maintenance Due Date Last Done Comments COVID-19 Vaccine (2022- season) 2023 12/06/2021, 02/05/2021, 01/08/2021 Influenza Vaccine (FLU shot) (#1) 2023 07/17/2020, 07/13/2020, 07/25/2019, Additional history exists *BISPHONATE OR OTHER ACCEPTABLE MEDICATION NEEDED FOR OSTEOPOROSIS (REFER TO SMARTSET #1146) 11/06/2023 COLONOSCOPY-EVERY 5 YRS AGES 18-100 05/06/2024 05/06/2019, 05/06/2019 Diabetic Eye Exam 05/12/2024 05/12/2023, , 05/12/2023, Additional history exists HbA1c 05/20/2024 11/20/2023, 11/14, 08/30/2022, Additional history exists Diabetic Foot Exam 06/05/2024 06/05/2023, 0 06/03/2022, 06/01/2021, Additional history exists Albumin/Creatinine Ratio 09/15/2024 023, 03/08/2022, 10/29/2019, Additional history exists Depression Screening 12/22/2024 12/22/2023 TSH 01/02/2025 01/02/2024, 11/14, 09/12/2022, Additional history exists GFR 01/23/2025 01/24/2024, 05/14, 05/31/2023, Additional history exists DXA Scan 06/13/2025 06/13/2023, 11/2022, 03/16/2015 DTaP,Tdap,and Td Vaccines (3 - Td or Tdap) 11/10/2026 11/10/2016, 03/30/2011 VITAMIN D LEVEL ONCE IN A LIFETIME-USE SMARTSET# 92346 Completed 05/11/2015 Zoster Vaccines Completed 10/30/2020, 02/2020, [...] this encounter Medical Devices Implanted Type Area Supervisor Sawmill Device Identifier Shelf Expiration Date Model / Serial / Lot Port Pwr Mri Isp Profile - [id number] Implanted:Qty: 1 on 07/24/2020 by Akash Castillo MD at OR [facility] Right: Chest CR BARD : PERIPHERAL VASCULAR 04/12/2021 [id number] / / [id number] documented as of this encounter Procedures Procedure Name Priority Date/Time Associated Diagnosis Comments DIFFERENTIAL, AUTOMATED STAT 12/15/2023 1:56 PM EST MDS (myelodysplastic syndrome), high grade (HCC) CBC STAT 12/15/2023 1:56 PM EST MDS (myelodysplastic syndrome), high grade (HCC) CBC STAT 12/15/2023 1:56 PM EST MDS (myelodysplastic syndrome), high grade (HCC) DIFFERENTIAL, TECHNOLOGIST REVIEW Routine 12/15/2023 1:56 PM EST MDS (myelodysplastic syndrome), high grade (HCC) documented in this encounter Results * (ABNORMAL) DIFFERENTIAL, TECHNOLOGIST REVIEW (12/15/2023 1:56 PM EST) Pathologist [facility] WBC 6.42 4.00 - 10.80 K/uL 12/15/2023 3:05 PM EST [facility] 56-02 Neutrophils % 37.0(L) 40.0 - 75.0 % 12/15/2023 3:05 PM EST [facility] 56-02 Lymphocytes % 56.0(H) 18.0 - 42.0 % 12/15/2023 3:05 PM EST [facility] 56-02 Monocytes % 2.0 1.0 - 11.0 % 12/15/2023 3:05 PM EST [facility] 56-02 Eosinophils % 5.0 0.0 - 6.0 % 12/15/2023 3:05 PM EST [facility] 56-02 Absolute Neutrophils 2.38 1.80 - 7.70 K/uL 12/15/2023 3:05 PM EST [facility] 56-02 Absolute Lymphocytes 3.60 1.00 - 4.80 K/uL 12/15/2023 3:05 PM EST [facility] 56-02 Absolute Monocytes 0.13 0.00 - 1.10 K/uL 12/15/2023 3:05 PM EST [facility] 56-02 Absolute Eosinophils 0.32 0.00 - 0.70 K/uL 12/15/2023 3:05 PM EST [facility] 56-02 nRBCs 12/15/2023 3:05 PM EST [facility] 56-02 Dyspoietic Neutrophils Present(A ) None Seen 12/15/2023 3:05 PM [facility] 56 Reactive Lymphocytes Present(A ) None Seen 12/15/2023 3:05 PM EST [facility] 56 Blood Venous blood specimen / Unknown Central Line / Unknown 12/15/2023 1:56 PM EST 12/15/2023 2:07 PM EST Jitendra Aguero MD LAB BLOOD ORDERABLES Performing Organization Address City/[facility]/ZIP Co de Phone Number [facility] [address] [place] [address] * DIFFERENTIAL, AUTOMATED (12/15/2023 1:56 PM EST) Blood Venous blood specimen / Unknown Central Line / Unknown 12/15/2023 1:56 PM EST 12/15/2023 2:07 PM EST Jitendra Aguero MD LAB BLOOD ORDERABLES Performing Organization Address City/[facility]/ZIP Co de Phone Number [facility] [address] [place] [address] * (ABNORMAL) CBC (12/15/2023 1:56 PM EST) WBC 6.42 4.00 - 10.80 K/uL 12/15/2023 3:05 PM [facility] RBC 2.51 3.85 - 5.15 M/uL 12/15/2023 3:05 PM [facility] 56 HGB 10.0(L) 12.0 - 15.3 g/dL 12/15/2023 3:05 PM [facility] 56 HCT 29.8(L) 36.0 - 45.2 % 12/15/2023 3:05 PM [facility] 56 MCV 118.7 81.5 - 97.5 fL 12/15/2023 3:05 PM [facility] 56 MCH 39.8 27.0 - 34.0 pg 12/15/2023 3:05 PM [facility] 56 MCHC 33.6 32.0 - 36.0 g/dL 12/15/2023 3:05 PM [facility] RDW 13.7 11.5 - 15.5 % 12/15/2023 3:05 PM EST [facility] PLT 15(LL) 140 - 400 K/uL 12/15/2023 3:05 PM EST [facility] MPV 11.7 6.6 - 11.1 fL 12/15/2023 3:05 PM EST [facility] Blood Venous blood specimen / Unknown Central Line / Unknown 12/15/2023 1:56 PM EST 12/15/2023 2:07 PM EST Jitendra Aguero MD LAB BLOOD ORDERABLES [facility] [address] [place] [address] documented in this encounter Visit Diagnoses Diagnosis MDS (myelodysplastic syndrome), high grade (HCC)- Primary High grade myelodysplastic syndrome lesions Hypomagnesemia 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 Given 12/15/2023 1:55 PM EST 500 Units sodium chloride 0.9 % flush central line 10 mL 10 mL, IV Push, PRN Other, IV Flush, Starting on Mon12/15/23 at 1353, Until Mon12/15/23 at 1821, For 24 hours, Do not flush if lock, PICC, or central line not in place; IV infusing or unable to flush. Given 12/15/2023 1:55 PM EST 10 mL documented in this encounter Advance Directives Latest Code Status on File Code Status Date Activated Date Inactivated Comments Full Code 08/27/2021 1:10 PM 09/21/2021 5:49 PM This order reflects the patients wishes and were consensually agreed upon. Question Answer Comments Discussion of Advance Directives occurred with: Patient/Family Does the patient have a Living Will? No Does the patient have Health Care Power of Yarn Weight And Strength Tester? No Code Status History Code Status Date Activated Date Inactivated Comments Full Code 07/27/2021 7:04 PM 07/31/2021 5:19 PM This order reflects the patients wishes and were consensually agreed upon. Question Answer Comments Discussion of Advance Directives occurred with: Patient Does the patient have a Living Will? No Does the patient have Health Care Power of Yarn Weight And Strength Tester? No Full Code 07/25/2021 12:43 PM 07/25/2021 11:03 PM Thi s order reflects the patients wishes and were consensually agreed upon. Question Answer Comments Discussion of Advance Directives occurred with: Patient/Family Does the patient have a Living Will? No Does the patient have Health Care Power of Yarn Weight And Strength Tester? No Full Code 06/12/2017 2:29 PM 06/12/2017 10:37 PM This order reflects the patients wishes and were consensually agreed upon. Question Answer Comments Discussion of Advance Directives occurred with: Not Discussed Does the patient have a Living Will? No Does the patient have Health Care Power of Yarn Weight And Strength Tester? No Healthcare Agents on File Name Relationship Healthcare Agent [facility] Communication Juanita Silva Adult Child Health Care Agent Care Teams Doctor Of Nurse Anesthesia Relationship Specialty Start Date End Date Dhruv Moss MD [address] [place] [id number] PCP - General Family Medicine 08/27/21 documented as of this encounter
--- OUTSIDE RECORDS SUMMARY | 2024-02-26 04:32 | External Medical Summary ---
Author Name Unknown Address Unknown Organization K01[facility] [address] [facility] [place] [address] Laboratory Report Ordering Provider Test Date Status ANN MUNGUIA 02/21/2024 08:39:00 Final Observation Date Value Abnormality Reference (Units ) Status SYNC LEUKOCYTES IN BLOOD BY AUTOMATED COUNT 02/21/2024 08:39:00 9.56 4.00-10.80 (K/uL) Final Neutrophils/100 leukocytes in Blood by Manual count 02/21/2024 08:39:00 17.0 Below low normal 40.0-75.0 (%) Final Lymphocytes/100 leukocytes in Blood by Manual count 02/21/2024 08:39:00 66.0 Above high normal 18.0-42.0 (%) Final Monocytes/100 leukocytes in Blood by Manual count 02/21/2024 08:39:00 6.0 1.0-11.0 (%) Final Metamyelocytes/100 leukocytes in Blood by Manual count 02/21/2024 08:39:00 3.0 Above high normal <=0.0 (%) Final Myelocytes/100 leukocytes in Blood by Manual count 02/21/2024 08:39:00 2.0 Above high normal <=0.0 (%) Final Promyelocytes/100 leukocytes in Blood by Manual count 02/21/2024 08:39:00 3.0 Above high normal <=0.0 (%) Final Blasts/100 leukocytes in Blood by Manual count 02/21/2024 08:39:00 3.0 Above high normal <=0.0 (%) Final Neutrophils [#/volume] in Blood by Manual count 02/21/2024 08:39:00 1.63 Below low normal 1.80-7.70 (K/uL) Final Lymphocytes [#/volume] in Blood by Manual count 02/21/2024 08:39:00 6.31 Above high normal 1.00-4.80 (K/uL) Final Monocytes [#/volume] in Blood by Manual count 02/21/2024 08:39:00 0.57 0.00-1.10 (K/uL) Final Metamyelocytes [#/volume] in Blood by Manual count 02/21/2024 08:39:00 0.29 Above high normal <=0.00 (K/uL) Final Myelocytes [#/volume] in Blood by Manual count 02/21/2024 08:39:00 0.19 Above high normal <=0.00 (K/uL) Final Promyelocytes [#/volume] in Blood by Manual count 02/21/2024 08:39:00 0.29 Above high normal <=0.00 (K/uL) Final Blasts [#/volume] in Blood by Manual count 02/21/2024 08:39:00 0.29 Above high normal <=0.00 (K/uL) Final Performing Location [facility] [place] [facility] [address] [facility] [id number]
--- OUTSIDE RECORDS SUMMARY | 2024-02-26 04:32 | External Medical Summary ---
Author Name Unknown Address Unknown Organization K01[facility] [address] [facility] [place] [address] Laboratory Report Ordering Provider Test Date Status ANN MUNGUIA 02/14/2024 08:36:00 Final Observation Date Value Abnormality Reference (Units ) Status SYNC LEUKOCYTES IN BLOOD BY AUTOMATED COUNT 02/14/2024 08:36:00 6.50 4.00-10.80 (K/uL) Final Neutrophils/100 leukocytes in Blood by Manual count 02/14/2024 08:36:00 18.0 Below low normal 40.0-75.0 (%) Final Lymphocytes/100 leukocytes in Blood by Manual count 02/14/2024 08:36:00 65.0 Above high normal 18.0-42.0 (%) Final Monocytes/100 leukocytes in Blood by Manual count 02/14/2024 08:36:00 4.0 1.0-11.0 (%) Final Metamyelocytes/100 leukocytes in Blood by Manual count 02/14/2024 08:36:00 5.0 Above high normal <=0.0 (%) Final Myelocytes/100 leukocytes in Blood by Manual count 02/14/2024 08:36:00 5.0 Above high normal <=0.0 (%) Final Blasts/100 leukocytes in Blood by Manual count 02/14/2024 08:36:00 3.0 Above high normal <=0.0 (%) Final Neutrophils [#/volume] in Blood by Manual count 02/14/2024 08:36:00 1.17 Below low normal 1.80-7.70 (K/uL) Final Lymphocytes [#/volume] in Blood by Manual count 02/14/2024 08:36:00 4.23 1.00-4.80 (K/uL) Final Monocytes [#/volume] in Blood by Manual count 02/14/2024 08:36:00 0.26 0.00-1.10 (K/uL) Final Metamyelocytes [#/volume] in Blood by Manual count 02/14/2024 08:36:00 0.33 Above high normal <=0.00 (K/uL) Final Myelocytes [#/volume] in Blood by Manual count 02/14/2024 08:36:00 0.33 Above high normal <=0.00 (K/uL) Final Blasts [#/volume] in Blood by Manual count 02/14/2024 08:36:00 0.20 Above high normal <=0.00 (K/uL) Final Variant lymphocytes [Presence] in Blood by Light microscopy 02/14/2024 08:36:00 Present Abnormal None Seen Final Performing Location LAB[facility]ATORY [facility] [place] - [address] [facility] [address]
--- OUTSIDE RECORDS SUMMARY | 2024-02-26 04:32 | External Medical Summary ---
Author Name Unknown Address Unknown Organization K01:LAB[facility]ATORY [place] [address] [place] [address] Laboratory Report Ordering Provider Test Date Status ANN MUNGUIA 02/14/2024 08:36:00 Final Observation Date Value Abnormality Reference (Units ) Status WBC, Total 02/14/2024 08:36:00 6.50 4.00-10.80 (K/uL) Final RBC 02/14/2024 08:36:00 1.86 3.85-5.15 (M/uL) Final Hemoglobin 02/14/2024 08:36:00 7.8 Below low normal 12.0-15.3 (g/dL) Final HCT 02/14/2024 08:36:00 23.2 Below low normal 36.0-45.2 (%) Final MCV 02/14/2024 08:36:00 124.7 81.5-97.5 (fL) Final MCH 02/14/2024 08:36:00 41.9 27.0-34.0 (pg) Final MCHC 02/14/2024 08:36:00 33.6 32.0-36.0 (g/dL) Final RDW 02/14/2024 08:36:00 14.5 11.5-15.5 (%) Final Platelets 02/14/2024 08:36:00 9 Below lower panic limits 140-400 (K/uL) Final MPV 02/14/2024 08:36:00 11.9 6.6-11.1 (fL) Final Nucleated erythrocytes/100 leukocytes [Ratio] in Blood by Automated count 02/14/2024 08:36:00 0 <=0 (/100 WBCs) Final Performing [place] [facility] [place] [address] [place] [address]
--- OUTSIDE RECORDS SUMMARY | 2024-02-26 04:32 | External Medical Summary ---
Author Name Unknown Address Unknown Organization K01:LABORATORY [place] [address] [place] [address] Laboratory Report Ordering Provider Test Date Status ANN MUNGUIA 02/07/2024 09:00:00 Final Observation Date Value Abnormality Reference (Units ) Status WBC, Total 02/07/2024 09:00:00 6.56 4.00-10.80 (K/uL) Final RBC 02/07/2024 09:00:00 1.95 3.85-5.15 (M/uL) Final Hemoglobin 02/07/2024 09:00:00 8.2 Below low normal 12.0-15.3 (g/dL) Final HCT 02/07/2024 09:00:00 24.3 Below low normal 36.0-45.2 (%) Final MCV 02/07/2024 09:00:00 124.6 81.5-97.5 (fL) Final MCH 02/07/2024 09:00:00 42.1 27.0-34.0 (pg) Final MCHC 02/07/2024 09:00:00 33.7 32.0-36.0 (g/dL) Final RDW 02/07/2024 09:00:00 14.6 11.5-15.5 (%) Final Platelets 02/07/2024 09:00:00 11 Below lower panic limits 140-400 (K/uL) Final MPV 02/07/2024 09:00:00 10.1 6.6-11.1 (fL) Final Nucleated erythrocytes/100 leukocytes [Ratio] in Blood by Automated count 02/07/2024 09:00:00 0 <=0 (/100 WBCs) Final Performing Location [facility] [facility] [place] [address] [place] [address]
--- OUTSIDE RECORDS SUMMARY | 2024-02-26 04:32 | External Medical Summary | Summary of Care ---
Author Name Unknown Organization [facility] Address [address] [facility] [place] [address] Phone [phone] Care Team Providers Care Orange Peel Operator Name Role Phone Dhruv Moss MD Primary Care Provide r Encounter Details Date Type Department Care Team (Late st Contact Info) Description 02/25/2024 2:00 PM EDT [facility] [address] [place] [address] [facility], Nurse [facility] [address] [place] [address] Allergies No known active allergiesdocumented as of this encounter (statuses as of 02/25/2024) Medications Medication Sig Dispensed Refills Start Date End Date Status BD Pen Needle Mini U/F 31G X 5 MM (Insulin Pen Needle)Indications:T ype 2 diabetes mellitus with hemoglobin A1c goal of less than 8.0% ([facility]) Use with xultophy once a day dx [...] for Nausea. 60 Tablet 3 12/09/2021 Active Kelly Van Gogh [employer] Delica Lancets 30GIndications:Type 2 diabetes mellitus with hemoglobin A1c goal of less than 8.0% ([facility]) Use to test blood sugar three times a day DXe11.9 300 Each 3 12/16/2021 Active Kelly Van Gogh [employer] Verio In Vitro Strip (Glucose Blood)Indications:Ty pe 2 diabetes mellitus with hemoglobin A1c goal of less than 8.0% ([facility]) Use to test blood sugar three times a day DXe11.9 300 Strip 3 12/16/2021 Active Kelly Van Gogh [employer] Verio Flex System w/Device Kit Use as directed . 0 12/16/2021 Active Acetaminophen 500 MG Oral Tablet Take 1 Tablet by mouth every 6 hours as needed. 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, unspecified whether prison insulin use (HCC) 1.25 mg IZ PRN 05/12/2023 05/11/2024 Active ROPivacaine (Naropin) inj 1.5 mgIndications: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 Does not have any evidence of acyky-maeuwz-pzky disease Last Assessment & Plan: Continues to [...] -continue venlafaxine Coronary artery disease invo lving pai[place]-shoshone coronary artery of pa[place]shoshone heart without angina pectoris 06/12/2017 Overview: S/P EDIL to LAD on 06/12/17 Last Assessment & Plan: No angina - Continue atorvastatin, isosorbide, metoprolol - no ASA due to thrombocytopenia Dyslipidemia, goal LDL below 70 11/25/2011 Last Assessment & Plan: Patient having no issues. She continues on Lipitor 40 mg daily Last lab I will was that I can find were from [phone] Assessment/plan: Dyslipidemia with patient currently taking Lipitor [...] on file documented as of this encounter Last Filed Vital Signs Vital Sign Reading Time Taken Comments Blood Pressure 122/54 02/25/2024 3:30 PM EDT Pulse - - Temperature 36.9 C (98.4 F) 02/25/2024 3:30 PM ED T Respiratory Rate 16 02/25/2024 3:30 PM EDT Oxygen Saturation 93% 02/25/2024 3:30 PM EDT Inhaled Oxygen Concentration - - Weight - - Height - - Body Mass Index - - documented in this encounter Functional Status Functional Status Response [...] No 08/27/2021 documented as of this encounter Progress Notes * Lyudmila Sterling, RN - 02/25/2024 2:05 PM EDT [facility] Automatic Lathe SetterAudiologist Visit Date: 02/25/2024 Time: 2:06 PM Name: Ruth Burger : 1950 Situation: Acute visit, eval for dehydration Background: MDS- H/o stem cell transplant, CAD, DM2, OA Assessment: Lying in bed Started with cold s/s and sore throatabout one week ago Two days ago she started with n/v/d Taking imodium - had approx 30 min ago Had zofran approx one hour ago Since zofran she drank 24oz water and has kept it down Pt's throat is notably swollen and lymph nodes b/l neck are swollen and firm Throat with 10/10 pain, increased pain with palpitation Able to talk and swallow but painful Has not tested for covid - daughter tested her during visit with home covid test - NEGATIVE Daughter ([facility] RN) reports that prior to drinking water, pt's tonsils were coated with thick yellow purulent drainage significant soft palate and uvular edema noted Denies any difficulty breathing Has intermittently felt feverish but has not felt feverish today Skin turgor fair Above assessment and vs TT to DrMihai Recommendation: Will administer NSS 1L IV at this time I do not have the swab for a throat culture but could be done tomorrow Would you like to start an abx at this time? I attempted to take a pic of her throat (should be under scans) but difficult to get good pic I have some abx with me: Doxy 100mg tabs Zpack Levofloxacin 500mg Ceftriaxone 1gm (could give with her iv) Problems/Symptoms: Review of Systems Constitutional: Positive for fatigue. HENT: Positive for congestion, facial swelling and sore throat. Respiratory: Positive for shortness of breath. Cardiovascular: Negative. Gastrointestinal: Positive for diarrhea, nausea and vomiting. Endocrine: Negative. Genitourinary: Negative. Musculoskeletal: Positive for gait problem. Skin: Negative. Neurological: Positive for weakness. Hematological: Negative. Psychiatric/Behavioral: Negative. Physical Exam: BP 122/54 (BP Position: Supine) | Temp 36.9 C (98.4 F) | Resp 16 | LMP 10/29/2000 | SpO2 93% Pain 10 Physical Exam Constitutional: Appearance: Normal appearance. Cardiovascular: Rate and Rhythm: Regular rhythm. Tachycardia present. Pulses: Normal pulses. Pulmonary: Effort: Pulmonary effort is normal. Comments: Fibrotic lung sounds b/l bases Abdominal: General: Bowel sounds are normal. Palpations: Abdomen is soft. Musculoskeletal: General: Normal range of motion. Skin: General: Skin is warm and dry. Capillary Refill: Capillary refill takes 2 to 3 seconds. Neurological: General: No focal deficit present. Mental Status: She is alert and oriented to person, place, and time. Gait: Gait abnormal. Psychiatric: Mood and Affect: Mood normal. Behavior: Behavior normal. [facility]-10 Completed this Visit: Yes. [facility]: Reason Completed: Status post acute event/change in baseline [facility]-10 ([facility]) Fall Risk Assessment Tool Age 65+: Yes (02/25/241599) Diagnosis (3 or more co-existing): Yes (02/25/241599) Prior history of falls within 3 months: Yes (02/25/241599) Incontinence: Yes (02/25/241599) Visual impairment: Yes (02/25/241599) Impaired functional mobility: Yes (02/25/241599) Environmental hazards: Yes (02/25/241599) Poly Pharmacy (4 or more prescriptions - any type): Yes (02/25/241599) Pain affecting level of function: Yes (02/25/241599) Cognitive impairment: No (02/25/241599) Score - a score of 4 or more is considered at risk for fallin (02/25/241599) [facility]-10 Interventions: Fall education provided, reviewed/provided Fall brochure Treatment/Plan: Administered NSS 1L via PIV placed LAC Rocephin 1G added to remaining 500ml NSS and infused Piv removed after infusion completed, dressing applied Rx for abx called to pharmacy, Shante aware Apap q8h Zofran and imodium prn Will have return f/u visit tomorrow - will be scheduled after discussing schedule with Team in morning Home Interventions Provided: IV Interventions: Antibiotic and Hydration Oral Medications: Antibiotic Home Intervention: Other; IVF, IV abx Consulted PCP/Specialist Reinforced current Plan of Care, including self-management and medication regimen Patient's 'Red Flags': Difficulty breathing Increased throat swelling Fever not relieved with apap Patient Needs to Remember: Call [facility] with red flags Referrals Needed: Other none Follow Up: Is there cellular connectivity/connectivity in the home? Yes Does the patient have internet in the home? Yes Patient encouraged to call the intake phone number for all urgent but not emergent issues. Scheduled to follow up with patient tomorrow with home visit Lyudmila Sterling RN 02/25/2024 2:06 PM documented in this encounter Plan of Treatment Upcoming Encounters Date Type Department Care Team (Late st Contact Info) Description 02/27/2024 2:00 PM EDT Office Visit Pharmacy, [address] [place] [id number] [place] [address] 02/28/2024 7:10 AM EDT Laboratory [facility] [address] [place] [address] [facility] [address] [place] [address] [address] 03/06/2024 7:10 AM EDT [facility] [address] [place] [address] [address] [facility] [address] [facility] [place], [place] [address] 03/13/2024 7:10 AM EDT Laboratory [facility] [address] [facility] [place], [place] [address] [facility] [address] [facility] [place], [place] [address] 03/13/2024 11:30 AM EDT [facility] [address] [place] [address] Marisa Pacheco, TANYA [address] [place] [address] 03/20/2024 7:10 AM EDT Laboratory [facility] [address] [facility] [place] [address] [facility] [address] [facility] [place], [place] [address] 03/27/2024 7:10 AM EDT Laboratory [facility] [address] [facility] [place], [place] [address] [facility] [address] [facility] [place], [place] [address] 03/28/2024 11:00 AM EDT Office Visit Hematology/Oncology [facility] [address] [facility], [place] [phone] Sharon Mejia CRNP [address] [facility] [place] [address] 03/28/2024 11:30 AM EDT Immunization/Injecti on Hematology/Oncology Treatment, [place] [address] [facility], [place] [phone] Nurse, Med 4 [address] [facility] [place], [place] [address] 04/03/2024 7:10 AM EDT Laboratory [facility] [address] [place] [address] [facility] [address] [facility] [place] [address] 04/10/2024 7:10 AM EDT Laboratory [facility] [address] [facility] [place] [place] [address] [facility] [address] [facility] [place] [address] 04/17/2024 7:10 AM EDT Laboratory [facility] [address] [facility] [place] [place] [address] [facility] [address] [place] [address] 04/24/2024 7:10 AM EDT Laboratory [facility] [address] [facility] [place] [address] [facility] [address] [place] [place] [address] 05/01/2024 7:10 AM EDT Laboratory [facility] [address] [facility] [place] [address] [facility] [address] [place] [address] 05/08/2024 7:10 AM EDT Laboratory [facility] [address] [place] [address] [facility] [address] [place] [address] 05/15/2024 7:10 AM EDT Laboratory [facility] [address] [facility] [place] [address] [facility] [address] [facility] [place] [address] 05/22/2024 7:10 AM EDT Laboratory [facility] [address] [facility] [place] [address] [facility] [address] [place] [address] 05/29/2024 7:10 AM EDT Laboratory [facility] [address] [place] [address] [facility] [address] [place] [address] 06/05/2024 7:10 AM EDT [facility] [address] [place] [address] [facility] [address] [place] [address] 06/12/2024 7:10 AM EDT Laboratory [facility] [address] [place] [address] [facility] [address] [place] [address] 06/19/2024 7:10 AM EDT Laboratory [facility] [address] [place] [address] [facility] [address] [facility] [place] [address] 06/26/2024 7:10 AM EDT [facility] [address] [place] [address] [facility] [address] [place] [address] 07/02/2024 1:00 PM EDT Office Visit Family Medicine [address] [phone] Abby Bennett [address] [place] [address] 07/03/2024 7:10 AM EDT [facility] [address] [place], [place] [address] [facility] [address] [place], [place] [address] 07/03/2024 1:30 PM EDT Imaging Radiology [address] [place] [address] 07/10/2024 7:10 AM EDT [facility] [address] [place] [address] [facility] [address] [place] [address] 07/17/2024 7:10 AM EDT [facility] [address] [place] [address] [facility] [address] [place], [place] [address] 07/24/2024 7:10 AM EDT [facility] [address] [place] [address] [facility] [address] [place] [address] 07/31/2024 7:10 AM EDT [facility] [address] [place] [address] [facility] [address] [place] [address] 08/07/2024 7:10 AM EDT [facility] [address] [place], [place] [address] [facility] [address] [place] [address] 12/24/2024 2:30 PM EST Nurse Only Ancillary [address] [place] [address] [place], Nurse [address] [place] [address] 01/13/2025 11:40 AM EST Office Visit Family Medicine [address] [place] [phone] Dhruv Moss MD [address] [place] [address] [place] [address] Scheduled Procedures Name Priority Associated Diagnoses Date/Ti me COLONOSCOPY FLEXIBLE PROXIMA L DIAGNOSTIC Recall Encounter for screening colonoscopy Health Maintenance Due Date Last Done Comments COVID-19 Vaccine ( season) 2023 12/06/2021, 02/05/2021, 01/08/2021 *BISPHONATE OR [...] D LEVEL ONCE IN A LIFETIME-USE SMARTSET# [id number] Completed 05/11/2015 Zoster Vaccines Completed 10/30/2020, 02/2020, [...] this encounter Medical Devices Implanted Type Area Director Orange Device Identifier Shelf Expiration Date Model / Serial / Lot Port Pwr Mri Isp Profile - [id number] Implanted:Qty: 1 on 07/24/2020 by Akash Castillo MD at OR [facility] Right: Chest CR BARD : PERIPHERAL VASCULAR 04/12/2021 [id number] / / [id number] documented as of this encounter Administered Medications Inactive Administered Medications - up to 3 most recent administrations Medication Order MAR Action Action Date Dose Rate Site cefTRIAXone (Rocephin) inj 1 g 1 g, Intramuscular, ONCE, On 02/25/24 at 1715, For 1 dose Given 02/25/2024 4:44 PM EDT 1 g Antecubital Left NSS 0.9% 1,000 mL bolus infusion Intravenous, at 1,000 mL/hr Administer over 60 Minutes, Administer entire volume within 60 minutes or less., ONCE, 1 dose, On 02/25/24 at 1500 New Bag 02/25/2024 4:40 PM EDT 1,000 mL 1000 mL/hr Antecubital Left documented in this encounter Advance Directives Latest Code Status on File Code Status Date Activated Date Inactivated Comments Full Code 08/27/2021 1:10 PM 09/21/2021 5:49 PM This order reflects the patients wishes and were consensually agreed upon. Question Answer Comments Discussion of Advance Directives occurred with: Patient/Family Does the patient have a Living Will? No Does the patient have Health Care Power of [place] Helper? No Code Status History Code Status Date Activated Date Inactivated Comments Full Code 07/27/2021 7:04 PM 07/31/2021 5:19 PM This order reflects the patients wishes and were consensually agreed upon. Question Answer Comments Discussion of Advance Directives occurred with: Patient Does the patient have a Living Will? No Does the patient have Health Care Power of [place] Helper? No Full Code 07/25/2021 12:43 PM 07/25/2021 11:03 PM Thi s order reflects the patients wishes and were consensually agreed upon. Question Answer Comments Discussion of Advance Directives occurred with: Patient/Family Does the patient have a Living Will? No Does the patient have Health Care Power of [place] Helper? No Full Code 06/12/2017 2:29 PM 06/12/2017 10:37 PM This order reflects the patients wishes and were consensually agreed upon. Question Answer Comments Discussion of Advance Directives occurred with: Not Discussed Does the patient have a Living Will? No Does the patient have Health Care Power of [place] Helper? No Healthcare Agents on File Name Relationship Healthcare Agent Relationshi p Communication Juanita Silva Adult Child Health Care Agent Care Teams Orange Peel Operator Relationship Specialty Start Date End Date Dhruv Moss MD [address] [place] [id number] PCP - General Family Medicine 08/27/21 documented as of this encounter
--- OUTSIDE RECORDS SUMMARY | 2024-02-26 04:32 | External Medical Summary ---
Author Name Unknown Address Unknown Organization [facility] [address] [place] [address] Laboratory Report Ordering Provider Test Date Status ANN MUNGUIA 01/31/2024 08:17:00 Final Observation Date Value Abnormality Reference (Units ) Status SYNC LEUKOCYTES IN BLOOD BY AUTOMATED COUNT 01/31/2024 08:17:00 7.75 4.00-10.80 (K/uL) Final Neutrophils/100 leukocytes in Blood by Manual count 01/31/2024 08:17:00 20.0 Below low normal 40.0-75.0 (%) Final Lymphocytes/100 leukocytes in Blood by Manual count 01/31/2024 08:17:00 66.0 Above high normal 18.0-42.0 (%) Final Monocytes/100 leukocytes in Blood by Manual count 01/31/2024 08:17:00 7.0 1.0-11.0 (%) Final Eosinophils/100 leukocytes in Blood by Manual count 01/31/2024 08:17:00 7.0 Above high normal 0.0-6.0 (%) Final Neutrophils [#/volume] in Blood by Manual count 01/31/2024 08:17:00 1.55 Below low normal 1.80-7.70 (K/uL) Final Lymphocytes [#/volume] in Blood by Manual count 01/31/2024 08:17:00 5.12 Above high normal 1.00-4.80 (K/uL) Final Monocytes [#/volume] in Blood by Manual count 01/31/2024 08:17:00 0.54 0.00-1.10 (K/uL) Final Eosinophils [#/volume] in Blood by Manual count 01/31/2024 08:17:00 0.54 0.00-0.70 (K/uL) Final Nucleated erythrocytes/100 leukocytes [Ratio] in Blood by Automated count 01/31/2024 08:17:00 Final Variant lymphocytes [Presence] in Blood by Light microscopy 01/31/2024 08:17:00 Present Abnormal None Seen Final Smudge cells [Presence] in Blood by Light microscopy 01/31/2024 08:17:00 Present Abnormal None Seen Final Performing Location [facility] [address] [facility] [address]
--- OUTSIDE RECORDS SUMMARY | 2024-02-26 04:32 | External Medical Summary | Summary of Care ---
Author Name Unknown Organization [facility] Address [address] [place] [address] Phone [phone] Care Team Providers Care Adjunct Trainer Name Role Phone Dhruv Moss MD Primary Care Provide r Encounter Details Date Type Department Care Team (Late st Contact Info) Description 02/25/2024 Telephone Family Practice [facility] [address] [facility], Floor 1 Entrance [address] [place] [address] Madie Nichols, [address] [place] [address] Allergies No known active allergiesdocumented as of this encounter (statuses as of 02/25/2024) Medications Medication Sig Dispensed Refills Start Date End Date Status BD Pen Needle Mini U/F 31G X 5 MM (Insulin Pen Needle)Indications:T ype 2 diabetes mellitus with hemoglobin A1c goal of less than 8.0% ([facility]) Use with xultophy once a [...] for Nausea. 60 Tablet 3 12/09/2021 Active Fiz Delica Lancets 30GIndications:Type 2 diabetes mellitus with hemoglobin A1c goal of less than 8.0% ([facility]) Use to test blood sugar three times a day DXe11.9 300 Each 3 12/16/2021 Active Pie Digital In Vitro Strip (Glucose Blood)Indications:Ty pe 2 diabetes mellitus with hemoglobin A1c goal of less than 8.0% ([facility]) Use to test blood sugar three times a day DXe11.9 300 Strip 3 12/16/2021 Active Pie Digital Flex System w/Device Kit Use as directed . 0 12/16/2021 Active Acetaminophen 500 MG Oral Tablet Take 1 Tablet by mouth every 6 hours as needed. 0 Active Nystatin 450999 UNIT/GM External Cream Apply topically to affected [...] 24 Hour (Imdur)Indications:C oronary artery disease involving chippewa-cree coronary artery of chippewa-cree heart without angina pectoris,HTN, goal below 140/90 [...] by mouth in the morning. 0 Active Amoxicillin 500 MG Oral Capsule (Amoxil) Take 1 Capsule by mouth in the morning and 1 Capsule before bedtime. Do all this for 10 days. 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, unspecified whether terminal gauger insulin use ([facility]) 1.25 mg IZ PRN 05/12/2023 05/11/2024 Active ROPivacaine (Naropin) inj 1.5 mgIndications: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 Date of Transplant: 09/01/2021 Conditioning Regimen: Fludarabine / Busulfan 2 with post-transplant Cytoxan ABO/Rh: A Positive CMV status: CMV Positive--- GRID: [id number] / DID: [id number] Matched Unrelated 10/24--- DPB1 Match ABO/Rh: A [...] Thrombocytopenia 12/06/2022 Last Assessment & Plan: Platelets 55448 on 03/20 Questionable hematuria Urinary incontinence 09/12/2022 [...] failure. Does not have any evidence of ytwzo-zdetzj-rcjb disease Last Assessment & Plan: Continues to [...] -continue venlafaxine Coronary artery disease invo lving chippewa-cree coronary artery of chippewa-cree heart without angina pectoris 06/12/2017 Overview: S/P EDIL to LAD on 06/12/17 Last Assessment & Plan: No angina - Continue atorvastatin, isosorbide, metoprolol - no ASA due to thrombocytopenia Dyslipidemia, goal LDL below 70 11/25/2011 Last Assessment & Plan: Patient having no issues. 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 Already getting 1L NSS, will also get 1 G IV rocephin, amoxicillin 500mg twice a day X 10 days sending to [facility]. Reviewed BMP-earliest one from May 2023-nml GFR. documented in this encounter Plan of Treatment Upcoming Encounters Date Type Department Care Team (Late st Contact Info) Description 02/27/2024 2:00 PM EDT Office Visit Pharmacy, [address] [place] [address] [place] [address] 02/28/2024 7:10 AM EDT Laboratory [facility] [address] [place] [address] [facility] [address] [place] [address] 03/06/2024 7:10 AM EDT [facility] [address] [place] [address] [facility] [address] [place] [address] 03/13/2024 7:10 AM EDT [facility] [address] [place] [address] [facility] [address] [place] [address] 03/13/2024 11:30 AM EDT Home Visit ising at [place], [facility] [address] [place] [address] Marisa Pacheco, TANYA [address] [place] [address] 03/20/2024 7:10 AM EDT [facility] [address] [place] [address] [facility] [address] [place] [address] 03/27/2024 7:10 AM EDT [facility] [address] [place] [place] [address] [facility] [address] [facility] [place] [address] 03/28/2024 11:00 AM EDT Office Visit Hematology/Oncology [facility] [address] [facility] [place] [phone] Sharon Mejia CRNP 400 [facility] [place] [address] 03/28/2024 11:30 AM EDT Immunization/Injecti on Hematology/Oncology Treatment, [place] [facility] [phone] Nurse, Med 200 [facility] [place] [address] 04/03/2024 7:10 AM EDT [facility] [address] [place] [address] [facility] [address] [place] [address] 04/10/2024 7:10 AM EDT [facility] [address] [place] [address] [facility] [address] [place] [address] 04/17/2024 7:10 AM EDT [facility] [address] [place] [address] [facility] [address] [place] [address] 04/24/2024 7:10 AM EDT [facility] [address] [place] [address] [facility] [address] [place] [address] 05/01/2024 7:10 AM EDT [facility] [address] [place] [address] [facility] [address] [place] [address] 05/08/2024 7:10 AM EDT [facility] [address] [place] [address] [facility] [address] [place] [address] 05/15/2024 7:10 AM EDT [facility] [address] [place] [address] [facility] [address] [place] [address] 05/22/2024 7:10 AM EDT [facility] [address] [place] [address] [facility] [address] [place] [address] 05/29/2024 7:10 AM EDT [facility] [address] [place] [address] [facility] [address] [facility] [place] [address] 06/05/2024 7:10 AM EDT [facility] [address] [place], [place] [address] [facility] [address] [facility] [place] [address] 06/12/2024 7:10 AM EDT [facility] [address] [place] [address] [facility] [address] [facility] [place] [address] 06/19/2024 7:10 AM EDT [facility] [address] [place], [place] [address] [facility] [address] [place] [address] 06/26/2024 7:10 AM EDT [facility] [address] [facility] [place] [address] [facility] [address] [facility] [place] [address] 07/02/2024 1:00 PM EDT Office Visit Family Medicine [address] [phone] [address] [place] [address] 07/03/2024 7:10 AM EDT [facility] [address] [place], [place] [address] [facility] [address] [facility] [place], [place] [address] 07/03/2024 1:30 PM EDT Imaging Radiology [address] [place] [address] 07/10/2024 7:10 AM EDT [facility] [address] [place] [address] [facility] [address] [place] [address] 07/17/2024 7:10 AM EDT [facility] [address] [place] [address] [facility] [address] [place] [address] 07/24/2024 7:10 AM EDT [facility] [address] [place] [address] [facility] [address] [place] [address] 07/31/2024 7:10 AM EDT [facility] [address] [place] [address] [facility] [address] [place] [address] 08/07/2024 7:10 AM EDT [facility] [address] [place] [address] [facility] [address] [place] [address] 12/24/2024 2:30 PM EST Nurse Only Ancillary [address] [place] [address] [place], Nurse [address] [place] [address] 01/13/2025 11:40 AM EST Office Visit Family Medicine [address] [place] [phone] Dhruv Moss MD [address] [place] [address] [place] [address] Scheduled Procedures Name Priority Associated Diagnoses Date/Ti [...] D LEVEL ONCE IN A LIFETIME-USE SMARTSET# [id number] Completed 05/11/2015 Zoster Vaccines Completed 10/30/2020, 0 02/2020, 07/13/2020, Additional history exists Pneumococcal Vaccine: [...] this encounter Medical Devices Implanted Type Area Nursery Supervisor Device Identifier Shelf Expiration Date Model / Serial / Lot Port Pwr Mri Isp Profile - [id number] Implanted:Qty: 1 on 07/24/2020 by Akash Castillo MD at [facility] Right: Chest CR BARD : PERIPHERAL VASCULAR 04/12/2021 [id number] / / [id number] documented as of this encounter Visit Diagnoses Diagnosis Strep sore throat- Primary Streptococcal sore throat Cervical lymphadenopathy Enlargement of lymph nodes documented in this encounter Advance Directives Latest Code Status on File Code Status Date Activated Date Inactivated Comments Full Code 08/27/2021 1:10 PM 09/21/2021 5:49 PM This order reflects the patients wishes and were consensually agreed upon. Question Answer Comments Discussion of Advance Directives occurred with: Patient/Family Does the patient have a Living Will? No Does the patient have Health Care Power of Java Programmer Analyst? No Code Status History Code Status Date Activated Date Inactivated Comments Full Code 07/27/2021 7:04 PM 07/31/2021 5:19 PM This order reflects the patients wishes and were consensually agreed upon. Question Answer Comments Discussion of Advance Directives occurred with: Patient Does the patient have a Living Will? No Does the patient have Health Care Power of Java Programmer Analyst? No Full Code 07/25/2021 12:43 PM 07/25/2021 11:03 PM Thi s order reflects the patients wishes and were consensually agreed upon. Question Answer Comments Discussion of Advance Directives occurred with: Patient/Family Does the patient have a Living Will? No Does the patient have Health Care Power of Java Programmer Analyst? No Full Code 06/12/2017 2:29 PM 06/12/2017 10:37 PM This order reflects the patients wishes and were consensually agreed upon. Question Answer Comments Discussion of Advance Directives occurred with: Not Discussed Does the patient have a Living Will? No Does the patient have Health Care Power of Java Programmer Analyst? No Healthcare Agents on File Name Relationship Healthcare Agent Relationshi p Communication Juanita Silva Adult Child Health Care Agent Care Teams Adjunct Trainer Relationship Specialty Start Date End Date Dhruv Moss MD [address] [place], [place] [address] [address] PCP - General Family Medicine 08/27/21 documented as of this encounter
--- OUTSIDE RECORDS SUMMARY | 2024-02-26 04:32 | External Medical Summary | Summary of Care ---
Author Name Unknown Organization [facility] Address [address] [facility] [address] Phone [phone] Care Team Providers Care Production Superintendent Name Role Phone Dhruv Moss MD Primary Care Provide r Reason for Visit * Reason Comments [facility]: Maintenance Encounter Details Date Type Department Care Team (Late st Contact Info) Description 01/31/2024 10:00 AM EDT Home Visit [facility], [facility] [address] [facility] [place] [address] Marisa Pacheco, RN [address] [facility] [place] [address] Allergies No known active allergiesdocumented as of this encounter (statuses as of 02/01/2024) Medications Medication Sig Dispensed Refills Start Date End Date Status BD Pen Needle Mini U/F 31G X 5 MM (Insulin Pen Needle)Indications: Type 2 diabetes mellitus with hemoglobin A1c goal of less than 8.0% (HCC) Use with xultophy once a day dx e11.9 100 Each 3 05/28/2021 Active Ondansetron HCl 8 MG Oral TabletIndications:M DS (myelodysplastic syndrome), high grade (HCC) Take 1 [...] Active Prochlorperazine Maleate 10 MG Oral Tablet (Compazine)Indicati ons:H/O allogeneic bone marrow transplant (HCC) Take by mouth 1 Tablet every 6 hours as needed for Nausea. 60 Tablet 3 12/09/2021 Active OneTouch Delica Lancets 30GIndications:Type 2 diabetes mellitus with hemoglobin A1c goal of less than 8.0% ([facility]) Use to test blood sugar three times a day DXe11.9 300 Each 3 12/16/2021 Active A[employer]on [employer]Touch Verio In Vitro Strip (Glucose Blood)Indications:T ype 2 diabetes mellitus with hemoglobin A1c goal of less than 8.0% ([facility]) Use to test blood sugar three times a day DXe11.9 300 Strip 3 12/16/2021 Active OneTouch Verio Flex System w/Device Kit Use as directed . 0 12/16/2021 Active Acetaminophen 500 MG Oral Tablet Take 1 Tablet by mouth every 6 hours as needed. 0 Active Nystatin 069739 UNIT/GM External Cream Apply topically to affected area 2 times a day. Apply to affected area twice a day for 7 days. 45 g 0 01/04/2023 Active Acyclovir 800 MG Oral Tablet (Zovirax)Indication s:MDS (myelodysplastic syndrome), high grade (HCC) Take 1 Tablet by mouth in the morning and 1 Tablet before bedtime. 60 Tablet 10 05/01/2023 Active Atorvastatin Calcium 40 MG Oral Tablet (Lipitor)Indication s:Dyslipidemia, goal LDL below 70 TAKE 1 TABLET BY MOUTH IN THE MORNING 90 Tablet 2 05/01/2023 Active Metoprolol Succinate ER 50 MG Oral Tablet Extended Release 24 Hour (toPROL XL)Indications:HTN, goal below 140/90 Take 1 Tablet by mouth in the morning. 90 Tablet 3 05/01/2023 Active Myrbetriq 50 MG Oral Tablet Extended Release 24 Hour (Mirabegron ER)Indications:Urin aj incontinence, unspecified type Take 1 Tablet by mouth in the morning. 30 Tablet 11 05/01/2023 Active Solifenacin Succinate 5 MG Oral Tablet (VESIcare)Indicatio ns:Urinary incontinence, unspecified type Take 1 Tablet by mouth in the morning. 30 Tablet 12 05/01/2023 Active Premarin 0.625 MG/GM Vaginal Cream (Estrogens Conjugated) Administer 1 g into the vagina at bedtime. As directed. 42.5 g 5 05/10/2023 Active Additional Information Patient not taking.Reported on 01/31/2024 Omeprazole 20 MG Oral Capsule Delayed Release (PriLOSEC)Indicatio ns:MDS (myelodysplastic syndrome), high grade (HCC) Take 1 capsule by mouth twice daily 180 Capsule 2 06/10/2023 Active NovoLIN R 100 UNIT/ML Injection Solution (insulin REGULAR human)Indications:T ype 2 diabetes mellitus with hemoglobin A1c goal of less than 8.0% (HCC) Inject 8 units with breakfast, 4 units with lunch, and 6 units with dinner + sliding scale of 1 units per every 20 over 140 MAX DAILY DOSE 50 units 50 mL 5 07/25/2023 Active Venlafaxine HCl ER 150 MG Oral Capsule Extended Release 24 Hour (Effexor XR)Indications:Recu rrent major depressive disorder, in partial remission (HCC) TAKE ONE CAPSULE BY MOUTH EVERY DAY do not cut, crush, or chew 90 Capsule 0 12/18/2023 Active Isosorbide Mononitrate ER 30 MG Oral Tablet Extended Release 24 Hour (Imdur)Indications: Coronary artery disease involving yocha dehe coronary artery of yocha dehe heart without angina pectoris,HTN, goal below 140/90 TAKE 1 TABLET BY MOUTH IN THE MORNING 90 Tablet 0 12/18/2023 Active Levemir 100 UNIT/ML Subcutaneous Solution (insulin Detemir)Indications :Type 2 diabetes mellitus with hemoglobin A1c goal of less than 8.0% (HCC) Inject 20 Units under the skin in the morning. 0 01/02/2024 Active Levothyroxine Sodium 88 MCG Oral Tablet (Levoxyl)Indication s:Postoperative hypothyroidism TAKE ONE TABLET BY MOUTH daily first thing in the morning at least 30 minutes prior to breakfast or other meds 90 Tablet 1 01/04/2024 Active metFORMIN HCl 1000 MG Oral Tablet (Glucophage)Indicat ions:Type 2 diabetes mellitus with hemoglobin A1c goal of less than 8.0% (HCC) TAKE 1 TABLET BY MOUTH TWICE DAILY WITH MORNING AND EVENING MEALS 180 Tablet 1 01/17/2024 Active Magnesium 100 MG Oral Capsule Take 1 Capsule by mouth in the morning. 0 Active traMADol HCl 50 MG Oral Tablet (Ultram)Indications :S/P allogeneic bone marrow transplant (HCC) Take 1 Tablet by mouth every 6 hours as needed for Other (pain). 30 Tablet 0 05/01/2023 01/31/20 24 Discontinu ed(Medicat ion List Clean Up) Polyethylene Glycol 3350 17 GM/SCOOP Oral Powder (Miralax) Take 17 g by mouth in the morning. 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 Date of Transplant: 09/01/2021 Conditioning Regimen: Fludarabine / Busulfan 2 with post-transplant Cytoxan ABO/Rh: A Positive CMV status: CMV Positive--- GRID: [id number] / DID: [id number] Matched Unrelated 10/24--- DPB1 Match ABO/Rh: A [...] Thrombocytopenia 12/06/2022 Last Assessment & Plan: Platelets 62632 on 03/20 Questionable hematuria Urinary incontinence 09/12/2022 [...] failure. Does not have any evidence of eezjn-clnyjx-jqcw disease Last Assessment & Plan: Continues to [...] -continue venlafaxine Coronary artery disease invo lving yocha dehe coronary artery of yocha dehe heart without angina pectoris 06/12/2017 Overview: S/P EDIL to LAD on 06/12/17 Last Assessment & Plan: No angina - Continue atorvastatin, isosorbide, metoprolol - no ASA due to thrombocytopenia Dyslipidemia, goal LDL below 70 11/25/2011 Last Assessment & Plan: Patient having no issues. She continues on Lipitor 40 mg daily Last lab I will was that I can find were from [phone] Assessment/plan: Dyslipidemia with patient currently taking Lipitor [...] as of this encounter (statuses as of 02/01/2024) Resolved Problems Problem Noted Date Diagnosed Date [...] as of this encounter (statuses as of 02/01/2024) Immunizations Name Administration Dates Next Due COVID-19 mRNA, LNP-s, No Pre serve, 2-Dose Series (CardioFocus) 02/05/2021,01/08/2021 COVID-19, LNP-s, No Preserve , Ye-sucrose, [...] 2:15 PM EST Sexual Orientation Straight 12/12/2022 2 :27 PM EST Job Start Date Occupation Industry Not on file Not on file Not on file documented as of this encounter Last Filed Vital Signs Vital Sign Reading Time Taken Comments Blood Pressure 102/56 01/31/2024 11:04 AM EDT Pulse 72 01/31/2024 11:04 AM EDT Temperature 35.6 C (96 F) 01/31/2024 11:04 AM EDT Respiratory Rate 18 01/31/2024 11:04 AM EDT Oxygen Saturation 95% 01/31/2024 11:04 AM EDT Inhaled Oxygen Concentration - - Weight [...] as of this encounter Progress Notes * Marisa Pacheco RN - 01/31/2024 10:32 AM EDT [facility] Visit Date: 01/31/2024 Time: 10:42 AM Name: Ruth Burger : 1950 Current Concerns: Patient seen for follow up- MDS- H/o stem cell transplant, CAD, DM2, Osteoarthritis Weekly labs- labs pending today Received IV fluids last week Admits that she wasn't drinking enough Overall feels ok. Her and her sleep a lot. Blood sugars- 01/30- 201 01/29- 182, 140 01/28- 190, 169 01/27- 120, 152, 308 01/26- 186, 217 VS- blood pressure slightly low. Has not drank much yet today. Drank full bottle of water during visit. Lungs clear slightly diminished Sob with exertion No LE edema noted Voiding without difficulty Bowels wnl- per report Appetite good Fluids encouraged Grandson and are to be moving in the next month in the basement. Problems/Symptoms: Review of Systems Constitutional: Negative. HENT: Negative. Respiratory: Positive for shortness of breath. Cardiovascular: Negative. Gastrointestinal: Negative. Endocrine: Negative. Genitourinary: Negative. Musculoskeletal: Positive for gait problem. Skin: Negative. Hematological: Negative. Psychiatric/Behavioral: Negative. Physical Exam: BP 102/56 (BP Site: Left Arm, BP Position: Sitting, BP Cuff Size: Regular) | Pulse 72 | Temp 35.6 C (96 F) (Tympanic) | Resp 18 | LMP 10/29/2000 | SpO2 95% Pain 0 Physical Exam Constitutional: Appearance: Normal appearance. Cardiovascular: Rate and Rhythm: Normal rate and regular rhythm. Pulses: Normal pulses. Pulmonary: Effort: Pulmonary effort is normal. Breath sounds: Normal breath sounds. Abdominal: General: Bowel sounds are normal. Palpations: Abdomen is soft. Musculoskeletal: General: Normal range of motion. Skin: General: Skin is warm and dry. Capillary Refill: Capillary refill takes 2 to 3 seconds. Neurological: General: No focal deficit present. Mental Status: She is alert and oriented to person, place, and time. Psychiatric: Mood and Affect: Mood normal. Behavior: Behavior normal. [facility] Completed this Visit: No. Routine visit Treatment/Plan: Blood sugars TID NCS diet Fluids encouraged Weekly labs- mobile phlebotomy Continue medications as prescribed Keep all upcoming MD appointments Fall precautions Home Interventions Provided: Reinforced current Plan of Care, including self-management and medication regimen Patient's Goals of Care: Remain cancer free Get my blood sugar under control Drink enough water Patient's 'Red Flags': "Seeing spots" - indication that H&H is low per patient report "Off balance"- shortness of breath Falls Fever Patient Needs to Remember: Call [facility] with any medical concerns/ red flags Referrals Needed: N/a Follow Up: Is there cellular connectivity/connectivity in the home? Yes Does the patient have internet in the home? Yes Patient encouraged to call the intake phone number for all urgent but not emergent issues. Scheduled to follow up with patient in 6 weeks. Marisa Mendoza RN 01/31/2024 10:42 AM documented in this encounter Plan of Treatment Upcoming Encounters Date Type Department Care Team (Late st Contact Info) Description 02/07/2024 10:40 AM EDT Laboratory Lab Mobile Phlebotomy [facility] [address] [place] [address] Gm, Gml Mobile Home Draw [address] [place] [address] 02/14/2024 10:40 AM EDT Laboratory Lab Mobile Phlebotomy [facility] [address] [place] [address] Gmc, Gml Mobile Home Draw [address] [place] [address] 02/21/2024 10:40 AM EDT Laboratory Lab Mobile Phlebotomy [facility] [address] [place] [address] c, Gml Mobile Home Draw [address] [place] [address] 02/27/2024 2:00 PM EDT Office Visit Pharmacy, [address] [place] [address] [place] [address] 03/13/2024 11:30 AM EDT Home Visit [facility] at [facility] [address] [facility] [place] [address] Marisa Pacheco, TANYA [address] [facility] [place] [address] 03/28/2024 11:00 AM EDT Office Visit Hematology/Oncology Joanie Roberts [address] [place] [phone] Sharon Mejia CRNP [address] [place] [address] [place] [address] 03/28/2024 11:30 AM EDT Immunization/Injecti on Hematology/Oncology Treatment, [place] [address] [place] [phone] Nurse, [facility] [address] [facility] [address] 07/02/2024 1:00 PM EDT Office Visit [address] Medicine [address] [phone] Abby Bennett [address] [place] [address] 07/03/2024 1:30 PM EDT Imaging Radiology [address] [place] [address] 12/24/2024 2:30 PM EST Nurse Only Ancillary [address] [place] [address] [place], Nurse Annual [address] [place] [address] 01/13/2025 11:40 AM EST [address] [phone] Dhruv Moss MD [address] [place] [address] [place] [address] Scheduled Procedures Name Priority Associated Diagnoses Date/Ti [...] D LEVEL ONCE IN A LIFETIME-USE SMARTSET# [id number] Completed 05/11/2015 Zoster Vaccines Completed 10/30/2020, 02/2020, [...] this encounter Medical Devices Implanted Type Area [place] Device Identifier Shelf Expiration Date Model / Serial / Lot Port Pwr Mri Isp Profile - [id number] Implanted:Qty: 1 on 07/24/2020 by Akash Castillo MD at OR [facility] Right: Chest CR BARD : PERIPHERAL VASCULAR 04/12/2021 [id number] / / [id number] documented as of this encounter Advance Directives Latest Code Status on File Code Status Date Activated Date Inactivated Comments Full Code 08/27/2021 1:10 PM 09/21/2021 5:49 PM Thi s order reflects the patients wishes and were consensually agreed upon. Question Answer Comments Discussion of Advance Directives occurred with: Patient/Family Does the patient have a Living Will? No Does the patient have Health Care Power of Food Service Attendant? No Code Status History Code Status Date Activated Date Inactivated Comments Full Code 07/27/2021 7:04 PM 07/31/2021 5:19 PM This order reflects the patients wishes and were consensually agreed upon. Question Answer Comments Discussion of Advance Directives occurred with: Patient Does the patient have a Living Will? No Does the patient have Health Care Power of Food Service Attendant? No Full Code 07/25/2021 12:43 PM 07/25/2021 11:03 PM Thi s order reflects the patients wishes and were consensually agreed upon. Question Answer Comments Discussion of Advance Directives occurred with: Patient/Family Does the patient have a Living Will? No Does the patient have Health Care Power of Food Service Attendant? No Full Code 06/12/2017 2:29 PM 06/12/2017 10:37 PM This order reflects the patients wishes and were consensually agreed upon. Question Answer Comments Discussion of Advance Directives occurred with: Not Discussed Does the patient have a Living Will? No Does the patient have Health Care Power of Food Service Attendant? No Healthcare Agents on File Name Relationship Healthcare Agent [facility] Communication Juanita Silva Adult Child Health Care Agent Care Teams Production Superintendent Relationship Specialty Start Date End Date Dhruv Moss MD [address] [place] [id number] PCP - General Family Medicine 08/27/21 documented as of this encounter
--- OUTSIDE RECORDS SUMMARY | 2024-02-26 04:32 | External Medical Summary | Summary of Care ---
Author Name Unknown Organization [facility] Address [address] [place] [address] Phone [phone] Care Team Providers Care Executive Director Global Brand Marketing Name Role Phone Dhruv Moss MD Primary Care Provide r Reason for Visit * Reason Onset Date Comments Test Results Lab 02/15/2024 PLT Encounter Details Date Type Department Care Team (Late st Contact Info) Description 02/15/2024 Telephone Hematology/Oncology, [address] [address] Eliza Valadez MD [address] [place] [address] Test Results Lab (PLT) Allergies No known active allergiesdocumented as of this encounter (statuses as of 02/15/2024) Medications Medication Sig Dispensed Refills Start Date [...] for Nausea. 60 Tablet 3 12/09/2021 Active Darby SmartTouch Delica Lancets 30GIndications:Type 2 diabetes mellitus with hemoglobin A1c goal of less than 8.0% ([facility]) Use to test blood sugar three times a day DXe11.9 300 Each 3 12/16/2021 Active Darby SmartTouch Verio In Vitro Strip (Glucose Blood)Indications:Ty pe 2 diabetes mellitus with hemoglobin A1c goal of less than 8.0% ([facility]) Use to test blood sugar three times a day DXe11.9 300 Strip 3 12/16/2021 Active OneTouch Verio Flex System w/Device Kit Use as directed . 0 12/16/2021 Active Acetaminophen 500 MG Oral Tablet Take 1 Tablet by mouth every 6 hours as needed. 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 Date of Transplant: 09/01/2021 Conditioning Regimen: Fludarabine / Busulfan 2 with post-transplant Cytoxan ABO/Rh: A Positive CMV status: CMV Positive--- GRID: [id number] / DID: [id number] Matched Unrelated 10/24--- DPB1 Match ABO/Rh: A [...] Thrombocytopenia 12/06/2022 Last Assessment & Plan: Platelets 49801 on 03/20 Questionable hematuria Urinary incontinence 09/12/2022 [...] failure. Does not have any evidence of samvv-vehsfl-dibt disease Last Assessment & Plan: Continues to [...] -continue venlafaxine Coronary artery disease invo lving sit[place] coronary artery of [place] heart without angina pectoris 06/12/2017 Overview: S/P EDIL to LAD on 06/12/17 Last Assessment & Plan: No angina - Continue atorvastatin, isosorbide, metoprolol - no ASA due to thrombocytopenia Dyslipidemia, goal LDL below 70 11/25/2011 Last Assessment & Plan: Patient having no issues. 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 S/P primary angioplasty with coronary stent 06/12/2017 04/23/2019 Overview: EDIL to LAD on 06/12/17 Venous stasis dermatitis of both lower extremities 07/04/2016 12/20/2018 Does not have health insurance 10/25/2012 05/01/2013 Depression 12/01/2009 07/23/2018 HYPERTENSION NOS 12/25/2013 MIGRAINE, UNSPECIFIED, WITHO UT MENTION OF INTRACTABLE MIGRAINE 07/23/2018 documented as of this encounter (statuses as of 02/15/2024) Immunizations Name Administration Dates Next Due COVID-19 mRNA, LNP-s, No Pre serve, 2-Dose Series (AMT) 02/05/2021,01/08/2021 COVID-19, LNP-s, No Preserve , Ye-sucrose, [...] as of this encounter Progress Notes * Eliza Valadez MD - 02/15/2024 5:24 AM EDTPlat 9k Need plat transfu. documented in this encounter Miscellaneous Notes * Telephone Encounter - Makenzie Barth LPN - 02/15/2024 12:10 PM EDT Patient to receive 1 unit Platelets . Called [facility] blood bank. Spoke with Marisa. Spoke with Deya at [facility]. Called [facility] central scheduling. Patient scheduled for Today at, patient instructed to head in per Deya at [facility]. Called and spoke with Roberto, Patient's spouse, informed him of patient's Platelet count and order to have a platelet transfusion. He verbalized understanding and states he will get the patient readyand head to [facility]. He denies any further questions or concerns. Patient verbalized understanding of appt time. Faxed order to [facility]/ blood bank. * Telephone Encounter - Eliza Valadez MD - 02/15/2024 11:54 AM EDT Platelet counts are 9000. Patient will need blood platelet transfusion as per Dr. Aguero's note documented in this encounter Plan of Treatment Upcoming Encounters Date Type Department Care Team (Late st Contact Info) Description 02/21/2024 10:40 AM EDT Laboratory Lab Mobile Phlebotomy [facility] [address] [place] [address] [facility], [facility] Mobile Home Draw [address] [place] [address] 02/27/2024 2:00 PM EDT Office Visit Pharmacy, [address] [place] [address] [place] [address] 03/13/2024 11:30 AM EDT [facility] [address] [place] [address] Marisa Pacheco, TANYA [address] [place] [address] 03/28/2024 11:00 AM EDT Office Visit Hematology/Oncology [facility] [address] [facility] [place] [phone] Sharon Mejia CRNP [address] [place] [address] [place] [address] 03/28/2024 11:30 AM EDT Immunization/Injecti on Hematology/Oncology [facility] [place] [facility] [phone] [facility] [address] 07/02/2024 1:00 PM EDT Office Visit Family Medicine [address] [place] [phone] Abby Bennett CRNP [address] [place] [address] [place] [address] 07/03/2024 1:30 PM EDT Imaging Radiology [address] [place] [address] 12/24/2024 2:30 PM EST Nurse Only Ancillary [address] [place] [address] Valentinoey, Nurse [address] [place] [address] 01/13/2025 11:40 AM EST Office Visit Family Medicine [address] [place] [phone] Dhruv Moss MD [address] [place] [address] [place] [address] Scheduled Procedures Name Priority Associated Diagnoses Date/Ti [...] Additional history exists DXA Scan 06/13/2025 06/13/2023, 08/11/2022, 03/16/2015 DTaP,Tdap,and Td Vaccines (3 - Td or Tdap) 11/10/2026 11/10/2016, 03/30/2011 VITAMIN D LEVEL ONCE IN A LIFETIME-USE SMARTSET# 70401 Completed 05/11/2015 Zoster Vaccines Completed 10/30/2020, 02/2020, [...] this encounter Medical Devices Implanted Type Area Senior Talent Management Consultant Device Identifier Shelf Expiration Date Model / Serial / Lot Port Pwr Mri Isp Profile - [id number] Implanted:Qty: 1 on 07/24/2020 by Akash Castillo MD at OR [facility] Right: Chest CR BARD : PERIPHERAL VASCULAR 04/12/2021 [id number] / / [id number] documented as of this encounter Advance Directives [...] the patient have Health Care Power of Photo Checker? No Code Status History Code Status Date Activated Date Inactivated Comments Full Code 07/27/2021 7:04 PM 07/31/2021 5:19 PM This order reflects the patients wishes and were consensually agreed upon. Question Answer Comments Discussion of Advance Directives occurred with: Patient Does the patient have a Living Will? No Does the patient have Health Care Power of Photo Checker? No Full Code 07/25/2021 12:43 PM 07/25/2021 11:03 PM Thi s order reflects the patients wishes and were consensually agreed upon. Question Answer Comments Discussion of Advance Directives occurred with: Patient/Family Does the patient have a Living Will? No Does the patient have Health Care Power of Photo Checker? No Full Code 06/12/2017 2:29 PM 06/12/2017 10:37 PM This order reflects the patients wishes and were consensually agreed upon. Question Answer Comments Discussion of Advance Directives occurred with: Not Discussed Does the patient have a Living Will? No Does the patient have Health Care Power of Photo Checker? No Healthcare Agents on File Name Relationship Healthcare Agent [facility] Communication Juanita Silva Adult Child Health Care Agent Care Teams Executive Director Global Brand Marketing Relationship Specialty Start Date End Date Dhruv Moss MD [address] [place] [address] [place] [address] PCP - General Family Medicine 08/27/21 documented as of this encounter
--- OUTSIDE RECORDS SUMMARY | 2024-02-26 04:32 | External Medical Summary | Summary of Care ---
Author Name Unknown Organization [facility] Address [address] [facility] [place] [address] Phone [phone] Care Team Providers Care Equipment Operator/Laborer/Supervisor Name Role Phone Dhruv Moss MD Primary Care Provide r Encounter Details Date Type Department Care Team (Late st Contact Info) Description 02/08/2024 Population Health External Data Unspecified Department Allergies No known active allergiesdocumented as of this encounter (statuses as of 02/13/2024) Medications Medication Sig Dispensed Refills Start Date [...] for Nausea. 60 Tablet 3 12/09/2021 Active [employer] Lancets 30GIndications:Type 2 diabetes mellitus with hemoglobin A1c goal of less than 8.0% ([facility]) Use to test blood sugar three times a day DXe11.9 300 Each 3 12/16/2021 Active [employer] Verio In Vitro Strip (Glucose Blood)Indications:Ty pe 2 diabetes mellitus with hemoglobin A1c goal of less than 8.0% ([facility]) Use to test blood sugar three times a day DXe11.9 300 Strip 3 12/16/2021 Active [employer] Verio Flex System w/Device Kit Use as directed . 0 12/16/2021 Active Acetaminophen 500 MG Oral Tablet Take 1 Tablet by mouth every 6 hours as needed. 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 Date of Transplant: 09/01/2021 Conditioning Regimen: Fludarabine / Busulfan 2 with post-transplant Cytoxan ABO/Rh: A Positive CMV status: CMV Positive--- GRID: [id number] / DID: [id number] Matched Unrelated 10/24--- DPB1 Match ABO/Rh: A [...] Thrombocytopenia 12/06/2022 Last Assessment & Plan: Platelets 45951 on 03/20 Questionable hematuria Urinary incontinence 09/12/2022 [...] failure. Does not have any evidence of ahkcf-zykgpw-ijce disease Last Assessment & Plan: Continues to [...] -continue venlafaxine Coronary artery disease invo lving [place] coronary artery of [place] heart without angina pectoris 06/12/2017 Overview: S/P EDIL to LAD on 06/12/17 Last Assessment & Plan: No angina - Continue atorvastatin, isosorbide, metoprolol - no ASA due to thrombocytopenia Dyslipidemia, goal LDL below 70 11/25/2011 Last Assessment & Plan: Patient having no issues. She continues on Lipitor 40 mg daily Last lab I will was that I can find were from [phone] Assessment/plan: Dyslipidemia with patient currently taking Lipitor [...] as of this encounter (statuses as of 02/13/2024) Resolved Problems Problem Noted Date Diagnosed Date [...] as of this encounter (statuses as of 02/13/2024) Immunizations Name Administration Dates Next Due COVID-19 [...] No 08/27/2021 documented as of this encounter Plan of Treatment Upcoming Encounters Date Type Department Care Team (Late st Contact Info) Description 02/14/2024 10:40 AM EDT Laboratory Lab Mobile Phlebotomy [facility] [address] [place] [address] [facility] [place], [facility] Mobile Home Draw [address] [place] [address] 02/21/2024 10:40 AM EDT Laboratory Lab Mobile Phlebotomy [facility] [address] [place] [address] [facility] [place], [facility] Mobile Home Draw [address] [place] [address] 02/27/2024 2:00 PM EDT Office Visit Pharmacy, [address] [place] [address] [place] [address] 03/13/2024 11:30 AM EDT [facility] [place] [address] Marisa Pacheco RN [address] [place] [address] 03/28/2024 11:00 AM EDT Office Visit Hematology/Oncology [facility] 200 [facility] [place] [phone] Sharon Mejia CRNP [address] [place], [place] [address] [address] 03/28/2024 11:30 AM EDT Immunization/Injecti on Hematology/Oncology Treatment, [place] 200 [facility] [place] [phone] Nurse, Med 200 [place] [address] 07/02/2024 1:00 PM EDT Office Visit Family Medicine [address] [place] [phone] Abby Bennett CRNP [address] [place] [address] [place] [address] 07/03/2024 1:30 PM EDT Imaging Radiology [address] [place] [address] 12/24/2024 2:30 PM EST Nurse Only Ancillary [address] [place] [address] Cristina, Nurse [facility] [address] [place] [address] [place] [address] 01/13/2025 11:40 AM EST Office Visit Family Medicine [address] [place] [phone] Dhruv Moss MD [address] [place] [address] [place] [address] Scheduled Procedures Name Priority Associated Diagnoses Date/Ti [...] D LEVEL ONCE IN A LIFETIME-USE SMARTSET# [id number] Completed 05/11/2015 Zoster Vaccines Completed 10/30/2020, 02/2020, [...] this encounter Medical Devices Implanted Type Area Sprinkler Installer Device Identifier Shelf Expiration Date Model / Serial / Lot Port Pwr Mri Isp Profile - [id number] Implanted:Qty: 1 on 07/24/2020 by Akash Castillo MD at [facility] Right: Chest CR BARD : PERIPHERAL VASCULAR 04/12/2021 [id number] / / [id number] documented as of this encounter Advance Directives [...] the patient have Health Care Power of Per Diem Rn? No Code Status History Code Status Date Activated Date Inactivated Comments Full Code 07/27/2021 7:04 PM 07/31/2021 5:19 PM This order reflects the patients wishes and were consensually agreed upon. Question Answer Comments Discussion of Advance Directives occurred with: Patient Does the patient have a Living Will? No Does the patient have Health Care Power of Per Diem Rn? No Full Code 07/25/2021 12:43 PM 07/25/2021 11:03 PM Thi s order reflects the patients wishes and were consensually agreed upon. Question Answer Comments Discussion of Advance Directives occurred with: Patient/Family Does the patient have a Living Will? No Does the patient have Health Care Power of Per Diem Rn? No Full Code 06/12/2017 2:29 PM 06/12/2017 10:37 PM This order reflects the patients wishes and were consensually agreed upon. Question Answer Comments Discussion of Advance Directives occurred with: Not Discussed Does the patient have a Living Will? No Does the patient have Health Care Power of Per Diem Rn? No Healthcare Agents on File Name Relationship Healthcare Agent [facility] Communication [facility] Adult Child Health Care Agent Care Teams Equipment Operator/Laborer/Supervisor Relationship Specialty Start Date End Date Dhruv Moss MD [address] [place] [address] [place] [address] PCP - General Family Medicine 08/27/21 documented as of this encounter
--- OUTSIDE RECORDS SUMMARY | 2024-02-26 04:32 | External Medical Summary ---
Author Name Unknown Address Unknown Organization K01[facility] [address] [facility] [address] Laboratory Report Ordering Provider Test Date Status ANN MUNGUIA 02/07/2024 09:00:00 Final Observation Date Value Abnormality Reference (Units ) Status SYNC LEUKOCYTES IN BLOOD BY AUTOMATED COUNT 02/07/2024 09:00:00 6.56 4.00-10.80 (K/uL) Final Neutrophils/100 leukocytes in Blood by Manual count 02/07/2024 09:00:00 25.0 Below low normal 40.0-75.0 (%) Final Lymphocytes/100 leukocytes in Blood by Manual count 02/07/2024 09:00:00 53.0 Above high normal 18.0-42.0 (%) Final Monocytes/100 leukocytes in Blood by Manual count 02/07/2024 09:00:00 6.0 1.0-11.0 (%) Final Eosinophils/100 leukocytes in Blood by Manual count 02/07/2024 09:00:00 8.0 Above high normal 0.0-6.0 (%) Final Basophils/100 leukocytes in Blood by Manual count 02/07/2024 09:00:00 1.0 0.0-2.0 (%) Final Metamyelocytes/100 leukocytes in Blood by Manual count 02/07/2024 09:00:00 2.0 Above high normal <=0.0 (%) Final Myelocytes/100 leukocytes in Blood by Manual count 02/07/2024 09:00:00 1.0 Above high normal <=0.0 (%) Final Blasts/100 leukocytes in Blood by Manual count 02/07/2024 09:00:00 4.0 Above high normal <=0.0 (%) Final Neutrophils [#/volume] in Blood by Manual count 02/07/2024 09:00:00 1.64 Below low normal 1.80-7.70 (K/uL) Final Lymphocytes [#/volume] in Blood by Manual count 02/07/2024 09:00:00 3.48 1.00-4.80 (K/uL) Final Monocytes [#/volume] in Blood by Manual count 02/07/2024 09:00:00 0.39 0.00-1.10 (K/uL) Final Eosinophils [#/volume] in Blood by Manual count 02/07/2024 09:00:00 0.52 0.00-0.70 (K/uL) Final Basophils [#/volume] in Blood by Manual count 02/07/2024 09:00:00 0.07 0.00-0.20 (K/uL) Final Metamyelocytes [#/volume] in Blood by Manual count 02/07/2024 09:00:00 0.13 Above high normal <=0.00 (K/uL) Final Myelocytes [#/volume] in Blood by Manual count 02/07/2024 09:00:00 0.07 Above high normal <=0.00 (K/uL) Final Blasts [#/volume] in Blood by Manual count 02/07/2024 09:00:00 0.26 Above high normal <=0.00 (K/uL) Final Neutrophils.agranular [Presence] in Blood by Light microscopy 02/07/2024 09:00:00 Present Abnormal None Seen Final Performing Location [facility] [place] - [address]. [facility] [address]
--- OUTSIDE RECORDS SUMMARY | 2024-02-26 04:33 | External Medical Summary | Summary of Care ---
Author Name Unknown Organization [facility] Address [address] [place] [address] Phone [phone] Care Team Providers Care Fryline Attendant Name Role Phone Dhruv Moss MD Primary Care Provide r Reason for Visit * Reason Onset Date Comments Advice 01/24/2024 Encounter Details Date Type Department Care Team (Late st Contact Info) Description 01/24/2024 Telephone Hematology/Oncology [facility] [place] 200 [facility] [place] [address] Jitendra Aguero MD 200 [place] [address] Advice Allergies No known active allergiesdocumented as of this encounter (statuses as of 01/24/2024) Medications Medication Sig Dispensed Refills Start Date [...] for Nausea. 60 Tablet 3 12/09/2021 Active Cennox Delica Lancets 30GIndications:Type 2 diabetes mellitus with hemoglobin A1c goal of less than 8.0% ([facility]) Use to test blood sugar three times a day DXe11.9 300 Each 3 12/16/2021 Active etouchesio In Vitro Strip (Glucose Blood)Indications:Ty pe 2 diabetes mellitus with hemoglobin A1c goal of less than 8.0% ([facility]) Use to test blood sugar three times a day DXe11.9 300 Strip 3 12/16/2021 Active Cennox Verio Flex System w/Device Kit Use as directed . 0 12/16/2021 Active Acetaminophen 500 MG Oral Tablet Take 1 Tablet by mouth every 6 hours as needed. 0 Active Nystatin 012087 UNIT/GM External Cream Apply topically to affected [...] the morning. 30 Tablet 12 05/01/2023 Active traMADol HCl 50 MG Oral Tablet (Ultram)Indications: S/P allogeneic bone marrow transplant (HCC) Take 1 Tablet by mouth every 6 hours as needed for Other (pain). 30 Tablet 0 05/01/2023 Active Additional Information Patient not taking.Reported on 01/04/2024 Premarin 0.625 MG/GM Vaginal Cream (Estrogens Conjugated) Administer 1 g into the vagina at bedtime. As directed. 42.5 g 5 05/10/2023 Active Polyethylene Glycol 3350 17 GM/SCOOP Oral Powder (Miralax) Take 17 g by mouth in the morning. 0 04/20/2023 Active Omeprazole 20 MG Oral Capsule Delayed [...] 24 Hour (Imdur)Indications:C oronary artery disease involving confederated coos coronary artery of confederated coos heart without angina pectoris,HTN, goal below 140/90 [...] EVENING MEALS 180 Tablet 1 01/17/2024 Active Hospital, Clinic, or Other Facility Administered Medication Ordered Dose Route Frequency Start Date End Date Status NSS 0.9% 1,000 mL bolus infusionIndications:MDS (myelodysplastic syndrome), high grade (HCC),Stem cells transplant status ([facility]),Acquired hypothyroidism 1000 mL IV DAILY PRN 12/08/2021 Active bevaCIZumab (Avastin) inj 1.25 mgIndications: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 Date of Transplant: 09/01/2021 Conditioning Regimen: Fludarabine / Busulfan 2 with post-transplant Cytoxan ABO/Rh: A Positive CMV status: CMV Positive--- GRID: [id number] / DID: [id number] Matched Unrelated 10/24--- DPB1 Match ABO/Rh: A [...] Thrombocytopenia 12/06/2022 Last Assessment & Plan: Platelets 74784 on 03/20 Questionable hematuria Urinary incontinence 09/12/2022 [...] failure. Does not have any evidence of wxeik-eolyrd-zoby disease Last Assessment & Plan: Continues to [...] -continue venlafaxine Coronary artery disease invo lving confederated coos coronary artery of confederated coos heart without angina pectoris 06/12/2017 Overview: S/P EDIL to LAD on 06/12/17 Last Assessment & Plan: No angina - Continue atorvastatin, isosorbide, metoprolol - no ASA due to thrombocytopenia Dyslipidemia, goal LDL below 70 11/25/2011 Last Assessment & Plan: Patient having no issues. She continues on Lipitor 40 mg daily Last lab I will was that I can find were from [phone] Assessment/plan: Dyslipidemia with patient currently taking Lipitor [...] as of this encounter (statuses as of 01/24/2024) Resolved Problems Problem Noted Date Diagnosed Date [...] as of this encounter (statuses as of 01/24/2024) Immunizations Name Administration Dates Next Due COVID-19 mRNA, LNP-s, No Pre serve, 2-Dose Series (Moximed) 02/05/2021,01/08/2021 COVID-19, LNP-s, No Preserve , Ye-sucrose, [...] encounter Miscellaneous Notes * Telephone Encounter - Bogdan Gutiérrez RN - 01/24/2024 2:[address] Aguero, would like patient to receive 1L of fluid today. Orders received, plan built. documented in this encounter Plan of Treatment Upcoming Encounters Date Type Department Care Team (Late st Contact Info) Description 01/31/2024 10:00 AM EDT Home Visit [facility] [address] [place] [address] Marisa Pacheco RN [address] [place] [address] 01/31/2024 10:40 AM EDT Laboratory Lab [facility] [address] [place] [address] [facility] Mobile Home Draw [address] [place] [address] 02/07/2024 10:40 AM EDT Laboratory Lab [facility] [address] [place] [address] [facility] Mobile Home Draw [address] [place] [address] 02/14/2024 10:40 AM EDT Laboratory Lab [facility] [address] [place] [address] [facility] Mobile Home Draw [address] [place] [address] 02/21/2024 10:40 AM EDT Laboratory Lab [facility] [address] [place] [address] [facility] Mobile Home Draw [address] [place] [address] 02/27/2024 2:00 PM EDT Office Visit Pharmacy, [address] [place] [address] [place] [address] 03/28/2024 11:00 AM EDT Office Visit Hematology/Oncology [facility] [place] 200 [facility] [phone] Sharon Mejia CRNP [address] [place], [place] [address] [address] 07/02/2024 1:00 PM EDT Office Visit Family [address] [place] [phone] Abby Bennett [address] [place] [address] 07/03/2024 1:30 PM EDT Imaging Radiology [address] [place] [address] 12/24/2024 2:30 PM EST Nurse Only Ancillary [address] [place] [address] Cristina, Nurse [address] [place] [address] 01/13/2025 11:40 AM EST Office Visit Family Medicine [address] [place] [address] Dhruv Wallis MD [address] [place] [address] [place] [address] Scheduled Procedures Name Priority Associated Diagnoses Date/Ti me COLONOSCOPY FLEXIBLE PROXIMA L DIAGNOSTIC Recall Encounter for screening colonoscopy Health Maintenance Due Date Last Done Comments COVID-19 Vaccine ( season) 2023 12/06/2021, 02/05/2021, 01/08/2021 Influenza Vaccine [...] D LEVEL ONCE IN A LIFETIME-USE SMARTSET# [id number] Completed 05/11/2015 Zoster Vaccines Completed 10/30/2020, 02/2020, [...] this encounter Medical Devices Implanted Type Area Perioperative Nurse Device Identifier Shelf Expiration Date Model / Serial / Lot Port Pwr Mri Isp Profile - [id number] Implanted:Qty: 1 on 07/24/2020 by Akash Castillo MD at OR [facility] Right: Chest CR BARD : PERIPHERAL VASCULAR 04/12/2021 [id number] / / [id number] documented as of this encounter Advance Directives [...] the patient have Health Care Power of Store Merchandiser? No Code Status History Code Status Date Activated Date Inactivated Comments Full Code 07/27/2021 7:04 PM 07/31/2021 5:19 PM This order reflects the patients wishes and were consensually agreed upon. Question Answer Comments Discussion of Advance Directives occurred with: Patient Does the patient have a Living Will? No Does the patient have Health Care Power of Store Merchandiser? No Full Code 07/25/2021 12:43 PM 07/25/2021 11:03 PM Thi s order reflects the patients wishes and were consensually agreed upon. Question Answer Comments Discussion of Advance Directives occurred with: Patient/Family Does the patient have a Living Will? No Does the patient have Health Care Power of Store Merchandiser? No Full Code 06/12/2017 2:29 PM 06/12/2017 10:37 PM This order reflects the patients wishes and were consensually agreed upon. Question Answer Comments Discussion of Advance Directives occurred with: Not Discussed Does the patient have a Living Will? No Does the patient have Health Care Power of Store Merchandiser? No Healthcare Agents on File Name Relationship Healthcare Agent Relationshi p Communication Juanita Silva Adult Child Health Care Agent Care Teams Fryline Attendant Relationship Specialty Start Date End Date Dhruv Moss MD [address] [place] [address] [place] [address] PCP - General Family Medicine 08/27/21 documented as of this encounter
--- OUTSIDE RECORDS SUMMARY | 2024-02-26 04:33 | External Medical Summary | Summary of Care ---
Author Name Unknown Organization [facility] Address [address] [place] [address] Phone [phone] Care Team Providers Care [employer] Leak Tester Name Role Phone Dhruv Moss MD Primary Care Provide r Reason for Visit * Reason Comments IV Therapy Hydration Encounter Details Date Type Department Care Team (Latest Contact Info) Description 01/24/2024 2:30 PM EDT Hem/Onc Treatment Hematology/Oncology Treatment, [address] [phone] Alejandra, Chair 3 Hem Onc [address] [address] H/O allogeneic bone marrow transplant (HCC)*; MDS (myelodysplastic syndrome), high grade (HCC) Allergies No known active allergiesdocumented as of [...] for Nausea. 60 Tablet 3 12/09/2021 Active SonosTouch Delica Lancets 30GIndications:Type 2 diabetes mellitus with hemoglobin A1c goal of less than 8.0% ([facility]) Use to test blood sugar three times a day DXe11.9 300 Each 3 12/16/2021 Active SonosTouch Verio In Vitro Strip (Glucose Blood)Indications:Ty pe 2 diabetes mellitus with hemoglobin A1c goal of less than 8.0% ([facility]) Use to test blood sugar three times a day DXe11.9 300 Strip 3 12/16/2021 Active SonosTouch Verio Flex System w/Device Kit Use as directed . 0 12/16/2021 Active Acetaminophen 500 MG Oral Tablet Take 1 Tablet by mouth every 6 hours as needed. 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 Does not have any evidence of vdsnb-rmenns-ajur disease Last Assessment & Plan: Continues to [...] -continue venlafaxine Coronary artery disease invo lving iroquois coronary artery of iroquois heart without angina pectoris 06/12/2017 Overview: S/P EDIL to LAD on 06/12/17 Last Assessment & Plan: No angina - Continue atorvastatin, isosorbide, metoprolol - no ASA due to thrombocytopenia Dyslipidemia, goal LDL below 70 11/25/2011 Last Assessment & Plan: Patient having no issues. She continues on Lipitor 40 mg daily Last lab I will was that I can find were from [phone] Assessment/plan: Dyslipidemia with patient currently taking Lipitor [...] mRNA, LNP-s, No Pre serve, 2-Dose Series (HESKA) 02/05/2021,01/08/2021 COVID-19, LNP-s, No Preserve , Ye-sucrose, Ages 12+ (Pfizer) 12/06/2021 Pneumococcal Conjugate Vacc, 13 Valent (Prevnar) 06/10/2022,10/09/2015 Pneumococcal Polysaccharide PPV23 (Pneumovax) 01/06/2017,03/30/2011 Seasonal Influenza Virus Vac cine, Unspecified Formulation 07/25/2019,07/23/2018,07/27/2017,01/06,10/09/2015,09/03/2014,08/27/2013 ,08/13/2013,08/27/2012,11/25/2011,10/11/2009,10/13/2009 Seasonal Influenza, PF, 6 M & above, [...] of this encounter Nursing Notes * Emma Olivo RN - 01/24/2024 4:43 PM EDT Goals: Patient will remain free from injury. Possible barriers to meeting goals: ambulating with IV pole Stability of the patient: Moderately stable - low risk of patient condition declining or worsening Summary regarding today's goals: Met: pt remained free of harm today Patient tolerated treatment well without any acute issues or problems. Patient left facility in stable condition and denied any further needs. * Elizabeth Soto RN - 01/24/2024 2:41 PM EDT Chair 12 Pt arrives for hydration, ambulating with cane. She states she's been "extremely tired" the last week or so and almost passed out. She denies any N/V/C/D. VAD accessed without difficulty, good blood return noted, flushed with NSS and fluids infusing. Safety and Risk for Injury Patient will remain free from injury. Ensure appropriate safety devices are available. Provide and maintain safe environment. documented in this encounter Plan of Treatment Upcoming Encounters Date Type Department Care Team (Late st Contact Info) Description 01/31/2024 10:00 AM EDT [facility] Visit [facility] [address] [facility] [place] [address] Marisa Pacheco RN 132 [facility] [place] [address] 01/31/2024 10:40 AM EDT Laboratory Lab Mobile Phlebotomy [facility] [address] [place] [address] [facility], [facility] Mobile Home Draw [address] [place] [address] 02/07/2024 10:40 AM EDT Laboratory Lab Mobile Phlebotomy [facility] [address] [place] [address] Gmc, [facility] Mobile Home Draw [address] [place] [address] 02/14/2024 10:40 AM EDT Laboratory Lab Mobile Phlebotomy [facility] [address] [place] [address] Gm, Gml Mobile Home Draw [address] [place] [address] 02/21/2024 10:40 AM EDT Laboratory Lab Mobile Phlebotomy [facility] [address] [place] [address] [facility] Draw [address] [place] [address] 02/27/2024 2:00 PM EDT Office Visit Pharmacy, [address] [place] [address] [place] [address] 03/28/2024 11:00 AM EDT Office Visit Hematology/Oncology [facility] [place] 200 [place] [phone] Sharon [facility]NP [address] [facility] [address] 03/28/2024 11:30 AM EDT Immunization/Injecti on Hematology/Oncology Treatment, [place] [address] [address] [facility] [address] Nurse, [facility] [address] [facility] [address] 07/02/2024 1:00 PM EDT Office Visit [address] [place] [phone] Abby Bennett CRNP [address] [place] [address] [place] [address] 07/03/2024 1:30 PM EDT Imaging Radiology [address] [place] [address] 12/24/2024 2:30 PM EST Nurse Only Ancillary [address] [place] [address] Cristina, Nurse Annual [address] [place] [address] 01/13/2025 11:40 AM EST Office Visit [address] [place] [phone] Dhruv Moss MD [address] [place] [address] [place] [address] Scheduled Procedures Name Priority Associated Diagnoses Date/Ti [...] D LEVEL ONCE IN A LIFETIME-USE SMARTSET# [id number] Completed 05/11/2015 Zoster Vaccines Completed 10/30/2020, 02/2020, [...] this encounter Medical Devices Implanted Type Area Monotype Caster Device Identifier Shelf Expiration Date Model / Serial / Lot Port Pwr Mri Isp Profile - [id number] Implanted:Qty: 1 on 07/24/2020 by Akash Castillo MD at OR [facility] Right: Chest CR BARD : PERIPHERAL VASCULAR 04/12/2021 [id number] / / [id number] documented as of this encounter Visit Diagnoses Diagnosis H/O allogeneic bone marrow transplant (HCC)- Primary Bone marrow replaced by transplant MDS (myelodysplastic syndrome), high grade (HCC) High grade myelodysplastic syndrome lesions documented in this encounter Administered Medications Active Administered Medications - up to 3 most recent administrations Medication Order MAR Action Action Date Dose Rate Site hEParin 100 UNIT/ML Lock Flush inj 500 Units 500 Units (5 mL), IV Lock, PRN Other, IV Flush, Starting on Mon01/24/24 at 1443, Until Juanita 01/25/24 at 1442, For 24 hours, Do not flush if lock, PICC, or central line not in place; IV infusing or unable to flush. Given 01/24/2024 4:33 PM EDT 500 Units sodium chloride 0.9 % flush central line 10 mL 10 mL, IV Push, PRN Other, IV Flush, Starting on Mon01/24/24 at 1443, Until Juanita 01/25/24 at 1442, For 24 hours, Do not flush if lock, PICC, or central line not in place; IV infusing or unable to flush. Given 01/24/2024 4:33 PM EDT 10 mL Inactive Administered Medications - up to 3 most recent administrations Medication Order MAR Action Action Date Dose Rate Site NSS infusion FOR HYDRATION Intravenous, at 500 mL/hr Administer over 2 Hours, ONCE, 1 dose, On Mon01/24/24 at 1545 Start Infusion 01/24/2024 2:30 PM EDT 1,000 mL 500 mL/hr documented in this encounter Advance Directives Latest Code Status on File Code Status Date Activated Date Inactivated Comments Full Code 08/27/2021 1:10 PM 09/21/2021 5:49 PM This order reflects the patients wishes and were consensually agreed upon. Question Answer Comments Discussion of Advance Directives occurred with: Patient/Family Does the patient have a Living Will? No Does the patient have Health Care Power of Night Guard? No Code Status History Code Status Date Activated Date Inactivated Comments Full Code 07/27/2021 7:04 PM 07/31/2021 5:19 PM This order reflects the patients wishes and were consensually agreed upon. Question Answer Comments Discussion of Advance Directives occurred with: Patient Does the patient have a Living Will? No Does the patient have Health Care Power of Night Guard? No Full Code 07/25/2021 12:43 PM 07/25/2021 11:03 PM Thi s order reflects the patients wishes and were consensually agreed upon. Question Answer Comments Discussion of Advance Directives occurred with: Patient/Family Does the patient have a Living Will? No Does the patient have Health Care Power of Night Guard? No Full Code 06/12/2017 2:29 PM 06/12/2017 10:37 PM This order reflects the patients wishes and were consensually agreed upon. Question Answer Comments Discussion of Advance Directives occurred with: Not Discussed Does the patient have a Living Will? No Does the patient have Health Care Power of Night Guard? No Healthcare Agents on File Name Relationship Healthcare Agent [facility] p Communication Juanita Silva Adult Child Health Care Agent Care Teams [employer] Leak Tester Relationship Specialty Start Date End Date Dhruv Moss MD [address] [place] [phone] PCP - General Family Medicine 08/27/21 documented as of this encounter
--- OUTSIDE RECORDS SUMMARY | 2024-02-26 04:33 | External Medical Summary | Summary of Care ---
Author Name Unknown Organization [facility] Address [address] [place] [address] Phone [phone] Care Team Providers Care Case Therapist Name Role Phone Dhruv Moss MD Primary Care Provide r Reason for Visit * Reason Comments Outpatient Testing Encounter Details Date Type Department Care Team (Late st Contact Info) Description 01/24/2024 1:00 PM EDT Laboratory Laboratory [facility] [place] [address] [place] [address] [place], Lab [facility] [address] [facility] [place] [address] MDS (myelodysplastic syndrome), high grade (HCC) Allergies [...] 05/28/2021 Active Ondansetron HCl 8 MG Oral TabletIndications: S (myelodysplastic syndrome), high grade (HCC) Take 1 [...] for Nausea. 60 Tablet 3 12/09/2021 Active PandoramaTouch Delica Lancets 30GIndications:Type 2 diabetes mellitus with hemoglobin A1c goal of less than 8.0% ([facility]) Use to test blood sugar three times a day DXe11.9 300 Each 3 12/16/2021 Active PandoramaToblueKiwi Software Verio In Vitro Strip (Glucose Blood)Indications:Ty pe 2 diabetes mellitus with hemoglobin A1c goal of less than 8.0% ([facility]) Use to test blood sugar three times a day DXe11.9 300 Strip 3 12/16/2021 Active PandoramaToblue[employer] Verio Flex System w/Device Kit Use as directed . 0 12/16/2021 Active Acetaminophen 500 MG Oral Tablet Take 1 Tablet by mouth every 6 hours as needed. 0 Active Nystatin 523501 UNIT/GM External Cream Apply topically to affected [...] Release (PriLOSEC)Indication s:MDS (myelodysplastic syndrome), high grade ([facility]) Take 1 capsule by mouth twice daily 180 Capsule 2 06/10/2023 Active NovoLIN R 100 UNIT/ML Injection Solution (insulin REGULAR human)Indications:Ty pe 2 diabetes mellitus with hemoglobin A1c goal of less than 8.0% ([facility]) Inject 8 units with breakfast, 4 units with lunch, and 6 units with dinner + sliding scale of 1 units per every 20 over 140 MAX DAILY DOSE 50 units 50 mL 5 07/25/2023 Active Venlafaxine HCl ER 150 MG Oral Capsule Extended Release 24 Hour (Effexor XR)Indications:Recur rent major depressive disorder, in partial remission ([facility]) TAKE ONE CAPSULE BY MOUTH EVERY DAY do not cut, crush, or chew 90 Capsule 0 12/18/2023 Active Isosorbide Mononitrate ER 30 MG Oral Tablet Extended Release 24 Hour (Imdur)Indications:C oronary artery disease involving [place] coronary artery of [place] heart without angina pectoris,HTN, goal below 140/90 [...] both eyes and macular edema, unspecified whether penitentiary insulin use (HCC) 1.25 mg IZ PRN 05/12/2023 05/11/2024 Active ROPivacaine (Naropin) inj 1.5 mgIndications: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 Does not have any evidence of frbxm-kgejiy-mkpf disease Last Assessment & Plan: Continues to [...] -continue venlafaxine Coronary artery disease invo lving [place] coronary artery of [place] heart without angina pectoris 06/12/2017 Overview: S/P EDIL to LAD on 06/12/17 Last Assessment & Plan: No angina - Continue atorvastatin, isosorbide, metoprolol - no ASA due to thrombocytopenia Dyslipidemia, goal LDL below 70 11/25/2011 Last Assessment & Plan: Patient having no issues. She continues on Lipitor 40 mg daily Last lab I will was that I can find were from [phone] Assessment/plan: Dyslipidemia with patient currently taking Lipitor [...] mRNA, LNP-s, No Pre serve, 2-Dose Series (BrainMass) 02/05/2021,01/08/2021 COVID-19, LNP-s, No Preserve , Ye-sucrose, [...] Care Team (Late st Contact Info) Description 01/26/2024 2:00 PM EDT Immunization/Injecti on Hematology/Oncology Treatment, [place] [address] [facility] [phone] Nurse, Med [address] [facility] [place] [address] 01/31/2024 10:00 AM EDT Home Visit [facility] [address] [facility] [place] [address] Marisa Pacheco, TANYA [address] [facility] [place] [address] 01/31/2024 10:40 AM EDT Laboratory [place] [facility] [place] [address] [place] [address] [facility] [address] [place] [address] 02/07/2024 10:40 AM EDT Laboratory [place] [facility] [place] [address] [place] [address] [facility], [facility] [address] [place] [address] 02/14/2024 10:40 AM EDT Laboratory [facility] [place] [address] [place] [address] [facility], [facility] [address], [place] [id number] 02/21/2024 10:40 AM EDT Laboratory [facility] [address] [place] [address] [facility], [facility] [address] [place] [address] 02/27/2024 2:00 PM EDT Office Visit Pharmacy, [address] [place] [address] [place] [address] 03/28/2024 11:00 AM EDT Office Visit Hematology/Oncology [facility] [place] [address] [facility] [place] [phone] Sharon Mejia CRNP [address] [place], [place] [address] [address] 07/02/2024 1:00 PM EDT Office Visit Family [address] [place] [phone] Abby Bennett [address] [place] [address] 07/03/2024 1:30 PM EDT Imaging Radiology [address] [place] [address] 12/24/2024 2:30 PM EST Nurse Only Ancillary [address] [place] [address] Crist[place], Nurse [address] [place] [address] 01/13/2025 11:40 AM EST Office Visit Family Medicine [address] [place] [phone] Dhruv Moss MD [address] [place] [address] [place] [phone] Pending Results Name Type Priority Associated Diagnoses Date /Time CBC WITH WBC DIFFERENTIAL Lab STAT MDS (myelodysplastic syndrome), high grade (HCC) 01/24/2024 1:37 PM EDT COMPREHENSIVE METABOLIC PANEL Lab STAT MDS (myelodysplastic syndrome), high grade (HCC) 01/24/2024 1:37 PM EDT CBC Lab STAT MDS (myelodysplastic syndrome), high grade (HCC) 01/24/2024 1:37 PM EDT DIFFERENTIAL, AUTOMATED Lab STAT MDS (myelodysplastic syndrome), high grade (HCC) 01/24/2024 1:37 PM EDT Scheduled Procedures Name Priority Associated Diagnoses Date/Ti [...] 06/05/2023, 0 06/03/2022, 06/01/2021, Additional history exists GFR 06/07/2024 06/07/2023, 05/13, 05/08/2023, Additional history exists Albumin/Creatinine Ratio 09/15/2024 023, 03/08/2022, 10/29/2019, Additional history exists Depression Screening 12/22/2024 12/22/2023 TSH 01/02/2025 01/02/2024, 11/14, 09/12/2022, Additional history exists DXA Scan 06/13/2025 06/13/2023, 11/2022, 03/16/2015 DTaP,Tdap,and Td Vaccines (3 - Td or Tdap) 11/10/2026 11/10/2016, 03/30/2011 VITAMIN D LEVEL ONCE IN A LIFETIME-USE SMARTSET# [id number] Completed 05/11/2015 Zoster Vaccines Completed 10/30/2020, 02/2020, [...] this encounter Medical Devices Implanted Type Area County Historian Device Identifier Shelf Expiration Date Model / Serial / Lot Port Pwr Mri Isp Profile - [id number] Implanted:Qty: 1 on 07/24/2020 by Akash Castillo MD at [facility] Right: Chest CR BARD : PERIPHERAL VASCULAR 04/12/2021 [id number] / / [id number] documented as of this encounter Visit Diagnoses Diagnosis MDS (myelodysplastic syndrome), high grade (HCC) High grade myelodysplastic syndrome lesions documented in this encounter Advance Directives Latest Code Status on File Code Status Date Activated Date Inactivated Comments Full Code 08/27/2021 1:10 PM 09/21/2021 5:49 PM This order reflects the patients wishes and were consensually agreed upon. Question Answer Comments Discussion of Advance Directives occurred with: Patient/Family Does the patient have a Living Will? No Does the patient have Health Care Power of It Sales Executive? No Code Status History Code Status Date Activated Date Inactivated Comments Full Code 07/27/2021 7:04 PM 07/31/2021 5:19 PM This order reflects the patients wishes and were consensually agreed upon. Question Answer Comments Discussion of Advance Directives occurred with: Patient Does the patient have a Living Will? No Does the patient have Health Care Power of It Sales Executive? No Full Code 07/25/2021 12:43 PM 07/25/2021 11:03 PM Thi s order reflects the patients wishes and were consensually agreed upon. Question Answer Comments Discussion of Advance Directives occurred with: Patient/Family Does the patient have a Living Will? No Does the patient have Health Care Power of It Sales Executive? No Full Code 06/12/2017 2:29 PM 06/12/2017 10:37 PM This order reflects the patients wishes and were consensually agreed upon. Question Answer Comments Discussion of Advance Directives occurred with: Not Discussed Does the patient have a Living Will? No Does the patient have Health Care Power of It Sales Executive? No Healthcare Agents on File Name Relationship Healthcare Agent [facility] Communication Juanita Silva Adult Child Health Care Agent Care Teams Case Therapist Relationship Specialty Start Date End Date Dhruv Moss MD [address] [place] [id number] PCP - General Family Medicine 08/27/21 documented as of this encounter
--- OUTSIDE RECORDS SUMMARY | 2024-02-26 04:33 | External Medical Summary ---
Author Name Unknown Address Unknown Organization [id number]:LABORATORY [facility] [place] - [address] [place] [address] Laboratory Report Ordering Provider Test Date Status ANN MUNGUIA 01/24/2024 17:03:43 Final Observation Date Value Abnormality Reference (Units ) Status Color of Urine by Auto 01/24/2024 17:03:43 Light Yellow Colorless, Light Yellow, Yellow, Dark Yellow Final Clarity, Urine 01/24/2024 17:03:43 Clear Clear Final Glucose [Mass/volume] in Urine by Automated test strip 01/24/2024 17:03:43 Negative Negative (mg/dL) Final Bilirubin.total [Presence] in Urine by Automated test strip 01/24/2024 17:03:43 Negative Negative Final Ketones [Mass/volume] in Urine by Automated test strip 01/24/2024 17:03:43 Negative Negative (mg/dL) Final Specific gravity, Urine 01/24/2024 17:03:43 1.012 1.003-1.030 Final Hemoglobin [Presence] in Urine by Automated test strip 01/24/2024 17:03:43 Negative Negative Final pH, Urine 01/24/2024 17:03:43 6.0 5.0-7.5 (Units) Final Protein [Mass/volume] in Urine by Automated test strip 01/24/2024 17:03:43 Negative Negative (mg/dL) Final Urobilinogen [Mass/volume] in Urine by Automated test strip 01/24/2024 17:03:43 Normal Normal (mg/dL) Final Nitrite [Presence] in Urine by Automated test strip 01/24/2024 17:03:43 Negative Negative Final Leukocyte esterase [Presence] in Urine by Automated test strip 01/24/2024 17:03:43 Negative Negative Final Annotation Comment 01/24/2024 17:03:43 Final Screen negative - Microscopi c not performed. Performing Location LABORATORY [facility] - [address] [place] [address]
--- OUTSIDE RECORDS SUMMARY | 2024-02-26 04:33 | External Medical Summary | Summary of Care ---
Author Name Unknown Organization [facility] Address [address] [place] [address] Phone [phone] Care Team Providers Care Silver Steward Name Role Phone Dhruv Moss MD Primary Care Provide r Reason for Visit * Reason Onset Date Comments Advice 01/24/2024 Laci Encounter Details Date Type Department Care Team (Late st Contact Info) Description 01/24/2024 Telephone Hematology/Oncology [facility] [place] [address] [facility] [place] [address] Jitendra Aguero MD [address] [place] [address] Advice (Laci) Allergies No known active allergiesdocumented as of [...] for Nausea. 60 Tablet 3 12/09/2021 Active Mix & MeetTouch Delica Lancets 30GIndications:Type 2 diabetes mellitus with hemoglobin A1c goal of less than 8.0% ([facility]) Use to test blood sugar three times a day DXe11.9 300 Each 3 12/16/2021 Active Mix & MeetTouch Verio In Vitro Strip (Glucose Blood)Indications:Ty pe 2 diabetes mellitus with hemoglobin A1c goal of less than 8.0% ([facility]) Use to test blood sugar three times a day DXe11.9 300 Strip 3 12/16/2021 Active Mix & MeetTouch Verio Flex System w/Device Kit Use as directed . 0 12/16/2021 Active Acetaminophen 500 MG Oral Tablet Take 1 Tablet by mouth every 6 hours as needed. 0 Active Nystatin 925969 UNIT/GM External Cream Apply topically to affected [...] Release (PriLOSEC)Indication s:MDS (myelodysplastic syndrome), high grade ([facility]) Take 1 capsule by mouth twice daily 180 Capsule 2 06/10/2023 Active NovoLIN R 100 UNIT/ML Injection Solution (insulin REGULAR human)Indications:Ty pe 2 diabetes mellitus with hemoglobin A1c goal of less than 8.0% ([facility]) Inject 8 units with breakfast, 4 units with lunch, and 6 units with dinner + sliding scale of 1 units per every 20 over 140 MAX DAILY DOSE 50 units 50 mL 5 07/25/2023 Active Venlafaxine HCl ER 150 MG Oral Capsule Extended Release 24 Hour (Effexor XR)Indications:Recur rent major depressive disorder, in partial remission ([facility]) TAKE ONE CAPSULE BY MOUTH EVERY DAY do not cut, crush, or chew 90 Capsule 0 12/18/2023 Active Isosorbide Mononitrate ER 30 MG Oral Tablet Extended Release 24 Hour (Imdur)Indications:C oronary artery disease involving [place] coronary artery of [place] heart without angina pectoris,HTN, goal below 140/90 [...] syndrome), high grade (HCC),Stem cells transplant status ([facility]),Acquired hypothyroidism 1000 mL IV DAILY PRN 12/08/2021 Active bevaCIZumab (Avastin) inj 1.25 mgIndications: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 Does not have any evidence of xwfao-apywih-dzln disease Last Assessment & Plan: Continues to [...] -continue venlafaxine Coronary artery disease invo lving [place] coronary artery of [place] heart without angina pectoris 06/12/2017 Overview: S/P EDIL to LAD on 06/12/17 Last Assessment & Plan: No angina - Continue atorvastatin, isosorbide, metoprolol - no ASA due to thrombocytopenia Dyslipidemia, goal LDL below 70 11/25/2011 Last Assessment & Plan: Patient having no issues. She continues on Lipitor 40 mg daily Last lab I will was that I can find were from [phone] Assessment/plan: Dyslipidemia with patient currently taking Lipitor [...] mRNA, LNP-s, No Pre serve, 2-Dose Series (Formula XO) 02/05/2021,01/08/2021 COVID-19, LNP-s, No Preserve , Ye-sucrose, [...] Encounter - Bogdan Gutiérrez RN - 01/24/2024 2:[address] Aguero, pt is to receive 1L of fluid over 2 hours. Pt is aware and agreeable, plan built. Ptport flush cancelled for 01/25 as she will have it flushed today prior to leaving office. * Addendum Note - Geo Chang RN - 01/24/2024 1:52 PM EDTAddended by: GEO CHANG on: 01/24/2024 01:52 PM Modules accepted: Orders * Telephone Encounter - Geo Chang RN - 01/24/2024 1:51 PM EDT Patient arrived- called lab, prelim hgb 9.1. Called patients daughter to let her know her mom is here. She mentioned that last May her mom had aUTI, slept a lot, then became septic. She did not have any UTI symptoms at the time. Advised her that we can check a urine while here as well. * Telephone Encounter - Geo Chang RN - 01/24/2024 11:55 AM EDT Called Juanita- she is in a bad service area, would like us to call back in 5 minutes. Called lab client services- specimen just got to [facility], would still need to be couriered to another facility to be run, unsure if the community health navigator already went there this morning. Called Juanita- she states that her mom had 2 days this week where she slept most of the day, Monday she did not get out of bed until 5pm. She was not eating/ drinking much those days. She is concerned that her mom is anemic and this is what is causing her low BP/ dizziness. Advised her that I would follow up with her mom, can have her come in for labs/ nurse visit. Called patient. Patient does note that her dizziness is a little better today. Offered for her to come in for labs/ assessment to see what is going on, patient accepted. * Telephone Encounter - Shannan Mclaughlin OSA - 01/24/2024 11:42 AM EDT Patients daughter called in stating that the patient is very weak and tired. She stated that yesterday her BP was 80/40 and she almost passed out. She was going to take the patient to the ER yesterday but she declined. She stated that the patient is complaining of the same symptoms today. She did have labs done this morning, daughter thinks it is because her levels are too low and she needs a transfusion, but did not have the results yet to confirm.If someone can call her to discuss. documented in this encounter Plan of Treatment Upcoming Encounters Date Type Department Care Team (Late st Contact Info) Description 01/31/2024 10:00 AM EDT Home Visit [facility], [facility] [address] [address] Marisa Pacheco, RN [address] [address] 01/31/2024 10:40 AM EDT Laboratory Lab Mobile Phlebotomy [facility] [address] [place] [address] G[facility], [facility] Mobile Home Draw [address] [place] [address] 02/07/2024 10:40 AM EDT Laboratory Lab [facility] Phlebotomy C [address] [place] [address] Gmc, [facility] Mobile Home Draw [address] [place] [address] 02/14/2024 10:40 AM EDT Laboratory Lab Mobile Phlebotomy [facility] [address] [place] [address] Gmc, Gml Mobile Home Draw [address] [place] [address] 02/21/2024 10:40 AM EDT Laboratory Lab Mobile Phlebotomy [facility] [address] [place] [address] Gmc, Gml Mobile Home Draw [address] [place] [address] 02/27/2024 2:00 PM EDT Office Visit Pharmacy, [address] [place] [address] [place] [address] 03/28/2024 11:00 AM EDT Office Visit Hematology/Oncology [facility] [address] [facility] [place] [phone] Sharon Mejia CRNP [address] [place] [address] [place] [address] 03/28/2024 11:30 AM EDT Immunization/Injecti on Hematology/Oncology [facility], [place] [facility] [phone] Nurse, Med [address] [facility] [place] [address] 07/02/2024 1:00 PM EDT Office Visit [address] [place] [phone] Abby Bennett CRNP [address] [place] [address] [place] [address] 07/03/2024 1:30 PM EDT Imaging Radiology [address] [place] [address] 12/24/2024 2:30 PM EST Nurse Only Ancillary [address] [place] [address] [place], Nurse Annual [address] [place] [address] 01/13/2025 11:40 AM EST Office Visit [address] [place] [phone] Dhruv Moss MD [address] [place] [address] [place] [address] Scheduled Orders Name Type Priority Associated Diagnoses Orde r Schedule URINALYSIS, REFLEX TO MICROSCOPIC Lab STAT MDS (myelodysplastic syndrome), high grade (HCC) Expected: 01/24/2024, Expires: 01/23/2025 CULTURE, URINE, QUANTITATIVE Lab Routine MDS (myelodysplastic syndrome), high grade (HCC) Expected: 01/24/2024, Expires: 01/23/2025 Scheduled Procedures Name Priority Associated Diagnoses Date/Ti [...] Additional history exists DXA Scan 06/13/2025 06/13/2023, 08/0 11/2022, 03/16/2015 DTaP,Tdap,and Td Vaccines (3 - Td or Tdap) 11/10/2026 11/10/2016, 03/30/2011 VITAMIN D LEVEL ONCE IN A LIFETIME-USE SMARTSET# [id number] Completed 05/11/2015 Zoster Vaccines Completed 10/30/2020, 090 02/2020, 07/13/2020, Additional history exists Pneumococcal Vaccine: [...] this encounter Medical Devices Implanted Type Area Elevator Operator Device Identifier Shelf Expiration Date Model / Serial / Lot Port Pwr Mri Isp Profile - [id number] Implanted:Qty: 1 on 07/24/2020 by Akash Castillo MD at OR [facility] Right: Chest CR BARD : PERIPHERAL VASCULAR 04/12/2021 [id number] / / [id number] documented as of this encounter Results * (ABNORMAL) COMPREHENSIVE METABOLIC PANEL (01/24/2024 1:37 PM EDT) BUN 19 6 - 20 mg/dL 01/24/2024 2:03 PM EDT [facility] Creatinine 1.0 0.5 - 1.0 mg/dL 01/24/2024 2:03 PM EDT [facility] Estimated Glomerular Filtration Rate 61 >=60 mL/min 01/24/2024 2:03 PM EDT [facility] 56 Comment:eGFR is calculated b ased on the CKD-EPI 2020 equation Sodium 138 135 - 146 mmol/L 01/24/2024 2:03 PM EDT [facility] 56 Potassium 4.9 3.5 - 5.1 mmol/L 01/24/2024 2:03 PM EDT [facility] 56 Chloride 102 98 - 107 mmol/L 01/24/2024 2:03 PM EDT [facility] 56 CO2 28 22 - 32 mmol/L 01/24/2024 2:03 PM EDT [facility] 56 Anion Gap 8 7 - 15 mmol/L 01/24/2024 2:03 PM EDT [facility] 56 Glucose 175(H) 70 - 120 mg/dL 01/24/2024 2:03 PM EDT [facility] 56 Albumin 4.2 3.8 - 5.0 g/dL 01/24/2024 2:03 PM EDT [facility] 56 AST 20 10 - 35 U/L 01/24/2024 2:03 PM EDT [facility] 56 Alkaline Phosphatase 83 35 - 130 U/L 01/24/2024 2:03 PM EDT [facility] 56 Bilirubin, Total 0.3 <=1.2 mg/dL 01/24/2024 2:03 PM EDT [facility] 56 Calcium 10.0 8.4 - 10.2 mg/dL 01/24/2024 2:03 PM EDT [facility] 56 Protein 7.6 6.0 - 8.3 g/dL 01/24/2024 2:03 PM EDT [facility] 56- ALT 26 10 - 35 U/L 01/24/2024 2:03 PM EDT [facility] 56-02 Blood Venous blood specimen / Unknown Venipuncture / Unknown 01/24/2024 1:37 PM EDT 01/24/2024 1:37 PM EDT Jitendra Aguero MD LAB BLOOD ORDERABLES [facility] 56-02 [address] [place] [address] documented in this encounter Visit Diagnoses Diagnosis MDS (myelodysplastic syndrome), high grade (HCC)- Primary High grade myelodysplastic syndrome lesions documented in [...] the patient have Health Care Power of Solar Installation Foreman? No Code Status History Code Status Date Activated Date Inactivated Comments Full Code 07/27/2021 7:04 PM 07/31/2021 5:19 PM This order reflects the patients wishes and were consensually agreed upon. Question Answer Comments Discussion of Advance Directives occurred with: Patient Does the patient have a Living Will? No Does the patient have Health Care Power of Solar Installation Foreman? No Full Code 07/25/2021 12:43 PM 07/25/2021 11:03 PM Thi s order reflects the patients wishes and were consensually agreed upon. Question Answer Comments Discussion of Advance Directives occurred with: Patient/Family Does the patient have a Living Will? No Does the patient have Health Care Power of Solar Installation Foreman? No Full Code 06/12/2017 2:29 PM 06/12/2017 10:37 PM This order reflects the patients wishes and were consensually agreed upon. Question Answer Comments Discussion of Advance Directives occurred with: Not Discussed Does the patient have a Living Will? No Does the patient have Health Care Power of Solar Installation Foreman? No Healthcare Agents on File Name Relationship Healthcare Agent Relationshi p Communication Juanita Burfield Adult Child Health Care Agent Care Teams Silver Steward Relationship Specialty Start Date End Date Dhruv Moss MD [address] [place] [address] [place] [address] PCP - General Family Medicine 08/27/21 documented as of this encounter
--- OUTSIDE RECORDS SUMMARY | 2024-02-26 04:33 | External Medical Summary ---
Author Name Unknown Address Unknown Organization [id number]:[facility] [place] [address] [place] [address] Laboratory Report Ordering Provider Test Date Status ANN MUNGUIA 01/24/2024 17:03:43 Final Observation Date Value Abnormality Reference (Units) Status Bacteria identified in Specimen by Culture 01/24/2024 17:03:43 No significant growth Final Test: Culture, Urine, Quanti tative
Specimen Source: Urine, Clean Catch
Specimen Type: Urine
Specimen Date: 01/24/2024 5:03 PM
Result Date: 01/25/2024 4:55 PM
Result Status: Final result
Resulting Lab: [facility] [place]
[address]
[place] [address]

CULTURE

No significant growth

null Performing Location [facility] [place] [address] [place] [address]
--- OUTSIDE RECORDS SUMMARY | 2024-02-26 04:33 | External Medical Summary | Summary of Care ---
Author Name Unknown Organization [facility] Address [address] [place] [address] Phone [phone] Care Team Providers Care Booking Agent Name Role Phone Dhruv Moss MD Primary Care Provide r Reason for Visit * Reason Onset Date Comments Advice 01/24/2024 Laci Encounter Details Date Type Department Care Team (Late st Contact Info) Description 01/24/2024 Telephone Hematology/Oncology Joanie Roberts [place] [address] [facility] [place] [address] Jitendra Aguero MD 200 [facility] [address] Advice (Laci) Allergies No known active allergiesdocumented as of this encounter (statuses as of 01/25/2024) Medications Medication Sig Dispensed Refills Start Date [...] for Nausea. 60 Tablet 3 12/09/2021 Active VeaconTouch Delica Lancets 30GIndications:Type 2 diabetes mellitus with hemoglobin A1c goal of less than 8.0% ([facility]) Use to test blood sugar three times a day DXe11.9 300 Each 3 12/16/2021 Active VeaconTouch Verio In Vitro Strip (Glucose Blood)Indications:Ty pe 2 diabetes mellitus with hemoglobin A1c goal of less than 8.0% ([facility]) Use to test blood sugar three times a day DXe11.9 300 Strip 3 12/16/2021 Active VeaconTouch Verio Flex System w/Device Kit Use as directed . 0 12/16/2021 Active Acetaminophen 500 MG Oral Tablet Take 1 Tablet by mouth every 6 hours as needed. 0 Active Nystatin 531893 UNIT/GM External Cream Apply topically to affected [...] s:MDS (myelodysplastic syndrome), high grade ([facility]) Take 1 capsule by mouth twice daily 180 Capsule 2 06/10/2023 Active NovoLIN R 100 UNIT/ML Injection Solution (insulin REGULAR human)Indications:Ty pe 2 diabetes mellitus with hemoglobin A1c goal of less than 8.0% ([facility]) Inject 8 units with breakfast, 4 units with lunch, and 6 units with dinner + sliding scale of 1 units per every 20 over 140 MAX DAILY DOSE 50 units 50 mL 5 07/25/2023 Active Venlafaxine HCl ER 150 MG Oral Capsule Extended Release 24 Hour (Effexor XR)Indications:Recur rent major depressive disorder, in partial remission ([facility]) TAKE ONE CAPSULE BY MOUTH EVERY DAY do not cut, crush, or chew 90 Capsule 0 12/18/2023 Active Isosorbide Mononitrate ER 30 MG Oral Tablet Extended Release 24 Hour (Imdur)Indications:C oronary artery disease involving lovelock coronary artery of lovelock heart without angina pectoris,HTN, goal below 140/90 [...] grade (HCC),Stem cells transplant status ([facility]),Acquired hypothyroidism 1000 mL IV DAILY PRN 12/08/2021 Active bevaCIZumab (Avastin) inj 1.25 mgIndications: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 Date of Transplant: 09/01/2021 Conditioning Regimen: Fludarabine / Busulfan 2 with post-transplant Cytoxan ABO/Rh: A Positive CMV status: CMV Positive--- GRID: [id number] / DID: [id number] Matched Unrelated 10/24--- DPB1 Match ABO/Rh: A [...] Thrombocytopenia 12/06/2022 Last Assessment & Plan: Platelets 26890 on 03/20 Questionable hematuria Urinary incontinence 09/12/2022 [...] failure. Does not have any evidence of ymuok-isitwd-nwdi disease Last Assessment & Plan: Continues to [...] -continue venlafaxine Coronary artery disease invo lving lovelock coronary artery of lovelock heart without angina pectoris 06/12/2017 Overview: S/P EDIL to LAD on 06/12/17 Last Assessment & Plan: No angina - Continue atorvastatin, isosorbide, metoprolol - no ASA due to thrombocytopenia Dyslipidemia, goal LDL below 70 11/25/2011 Last Assessment & Plan: Patient having no issues. She continues on Lipitor 40 mg daily Last lab I will was that I can find were from [phone] Assessment/plan: Dyslipidemia with patient currently taking Lipitor [...] as of this encounter (statuses as of 01/25/2024) Resolved Problems Problem Noted Date Diagnosed Date [...] as of this encounter (statuses as of 01/25/2024) Immunizations Name Administration Dates Next Due COVID-19 mRNA, LNP-s, No Pre serve, 2-Dose Series ([employer]) 02/05/2021,01/08/2021 COVID-19, LNP-s, No Preserve , Ye-sucrose, [...] encounter Miscellaneous Notes * Telephone Encounter - Geo Chang RN - 01/25/2024 10:22 AM EDT Called and spoke to patients - patient is still sleeping, but he notes that she was feeling much better after getting the hydration yesterday. Advised him that UA came back normal (no sign of infection), she should monitor symptoms and let us know if any further issues come up. He verbalizedunderstanding. Left message for Shante with above information as well. * Telephone Encounter - Bogdan Gutiérrez RN [...] mom is here. She mentioned that last March her mom had aUTI, slept a lot, [...] lab client services- specimen just got to [facility], would still need to be couriered to another facility to be run, unsure if the starch factory laborer already went there this morning. Called Juanita- [...] Description 01/31/2024 10:00 AM EDT Home Visit [facility] [place] [address] [place] [address] Marisa Pacheco RN [address] [place] [address] 01/31/2024 10:40 AM EDT Laboratory Lab Mobile Phlebotomy [facility] [address] [place] [address] Gmc, Gml Mobile Home Draw [address] [place] [address] 02/07/2024 10:40 AM EDT Laboratory Lab Mobile Phlebotomy C [address] [place] [address] Gmc, Gml Mobile Home Draw [address] [place] [address] 02/14/2024 10:40 AM EDT Laboratory Lab Mobile Phlebotomy C [address] [place] [address] Gmc, Gml Mobile Home Draw [address] [place] [address] 02/21/2024 10:40 AM EDT Laboratory Lab Mobile Phlebotomy C [address] [place] [address] Gmc, Gml Mobile Home Draw [address] [place] [address] 02/27/2024 2:00 PM EDT Office Visit Pharmacy, [address] [place] [address] [place] [address] 03/28/2024 11:00 AM EDT Office Visit Hematology/Oncology [facility] 200 [facility] [place] [phone] Sharon Mejia CRNP [address] [place] [address] 03/28/2024 11:30 AM EDT Immunization/Injecti on Hematology/Oncology [facility] [place] [facility] [phone] Nurse, Med 200 [facility] [place] [address] 07/02/2024 1:00 PM EDT Office [address] [phone] Abby Bennett CRNP [address] [place] [address] [place] [address] 07/03/2024 1:30 PM EDT Imaging Radiology [address] [place] [address] 12/24/2024 2:30 PM EST Nurse Only Ancillary [address] [place] [address] [place], Nurse Annual [address] [place] [address] 01/13/2025 11:40 AM EST Office Visit Family Medicine [address] [place] [phone] Dhruv Moss MD [address] [place] [address] [place] [address] Pending Results Name Type Priority Associated Diagnoses Date /Time CULTURE, URINE, QUANTITATIVE Lab Routine MDS (myelodysplastic syndrome), high grade (HCC) 01/24/2024 5:03 PM EDT Scheduled Orders Name Type Priority Associated Diagnoses Orde r Schedule CULTURE, URINE, QUANTITATIVE Lab Routine MDS (myelodysplastic [...] D LEVEL ONCE IN A LIFETIME-USE SMARTSET# [id number] Completed 05/11/2015 Zoster Vaccines Completed 10/30/2020, 02/2020, [...] this encounter Medical Devices Implanted Type Area Greenhouse Florist Device Identifier Shelf Expiration Date Model / Serial / Lot Port Pwr Mri Isp Profile - [id number] Implanted:Qty: 1 on 07/24/2020 by Akash Castillo MD at OR [facility] Right: Chest CR BARD : PERIPHERAL VASCULAR 04/12/2021 [id number] / / [id number] documented as of this encounter Results * URINALYSIS, REFLEX TO MICROSCOPIC (01/24/2024 5:03 PM EDT) Color, Urine Light Yellow Colorless, Light Yellow, Yellow, Dark Yellow 01/25/2024 12:28 AM EDT LAB[facility]ATORY [facility] Clarity, Urine Clear Clear 01/25/2024 12:28 AM EDT LAB[facility]ATORY [facility] Glucose, Urine Negative Negative mg/dL 01/25/2024 12:28 AM EDT LAB[facility]ATORY [facility] Bilirubin, Urine Negative Negative 01/25/2024 12:28 AM EDT LAB[facility]ATORY [facility] Ketone, Urine Negative Negative mg/dL 01/25/2024 12:28 AM EDT LABORATORY [facility] Specific Dieter[place], Urine 1.012 1.003 - 1.030 01/25/2024 12:28 AM EDT LAB[facility]ATORY [facility] Blood, Urine Negative Negative 01/25/2024 12:28 AM EDT LAB[facility]ATORY [facility] pH, Urine 6.0 5.0 - 7.5 Units 01/25/2024 12:28 AM EDT LAB[facility]ATORY [facility] Protein, Urine Negative Negative mg/dL 01/25/2024 12:28 AM EDT LAB[facility]ATORY [facility] Urobilinogen, Urine Normal Normal mg/dL 01/25/2024 12:28 AM EDT LAB[facility]ATORY [facility] Nitrite, Urine Negative Negative 01/25/2024 12:28 AM EDT LAB[facility]ATORY [facility] Esterase, Urine Negative Negative 12:28 AM EDT LAB[facility]ATORY [facility] Comment, Urine 01/25/2024 12:28 AM EDT LAB[facility]ATORY [facility] Comment:Screen negative - Mi croscopic not performed. Urine Urine specimen obtained by clean catch procedure / Unknown Non-blood Collection / Unknown 01/24/2024 5:03 PM EDT 01/24/2024 5:11 PM EDT Jitendra Aguero MD LAB URINE ORDERABLES [facility]AT[facility] [address] [place] [address] * (ABNORMAL) COMPREHENSIVE METABOLIC PANEL (01/24/2024 1:37 PM EDT) BUN 19 6 - 20 mg/dL 01/24/2024 2:03 PM EDT [address] Creatinine 1.0 0.5 - 1.0 mg/dL 01/24/2024 2:03 PM EDT [address] Estimated Glomerular Filtration Rate 61 >=60 mL/min 01/24/2024 2:03 PM EDT [address] Comment:eGFR is calculated b ased on the CKD-EPI 2020 equation Sodium 138 135 - 146 mmol/L 01/24/2024 2:03 PM EDT [facility] 56 Potassium 4.9 3.5 - 5.1 mmol/L 01/24/2024 2:03 PM EDT [facility] 56 Chloride 102 98 - 107 mmol/L 01/24/2024 2:03 PM EDT [facility] 56 CO2 28 22 - 32 mmol/L 01/24/2024 2:03 PM EDT [facility] 56 Anion Gap 8 7 - 15 mmol/L 01/24/2024 2:03 PM EDT [facility] 56 Glucose 175(H) 70 - 120 mg/dL 01/24/2024 2:03 PM EDT [facility] 56 Albumin 4.2 3.8 - 5.0 g/dL 01/24/2024 2:03 PM EDT [facility] 56 AST 20 10 - 35 U/L 01/24/2024 2:03 PM EDT [facility] 56 Alkaline Phosphatase 83 35 - 130 U/L 01/24/2024 2:03 PM EDT [facility] 56- Bilirubin, Total 0.3 <=1.2 mg/dL 01/24/2024 2:03 PM EDT [facility] 56- Calcium 10.0 8.4 - 10.2 mg/dL 01/24/2024 2:03 PM EDT [facility] 56 Protein 7.6 6.0 - 8.3 g/dL 01/24/2024 2:03 PM EDT [facility] 56 ALT 26 10 - 35 U/L 01/24/2024 2:03 PM EDT [facility] 56- Blood Venous blood specimen / Unknown Venipuncture / Unknown 01/24/2024 1:37 PM EDT 01/24/2024 1:37 PM EDT Jitendra Aguero MD LAB BLOOD ORDERABLES [address] [place] [address] documented in this encounter Visit Diagnoses Diagnosis [...] the patient have Health Care Power of Ict Developer? No Code Status History Code Status Date Activated Date Inactivated Comments Full Code 07/27/2021 7:04 PM 07/31/2021 5:19 PM This order reflects the patients wishes and were consensually agreed upon. Question Answer Comments Discussion of Advance Directives occurred with: Patient Does the patient have a Living Will? No Does the patient have Health Care Power of Ict Developer? No Full Code 07/25/2021 12:43 PM 07/25/2021 11:03 PM Thi s order reflects the patients wishes and were consensually agreed upon. Question Answer Comments Discussion of Advance Directives occurred with: Patient/Family Does the patient have a Living Will? No Does the patient have Health Care Power of Ict Developer? No Full Code 06/12/2017 2:29 PM 06/12/2017 10:37 PM This order reflects the patients wishes and were consensually agreed upon. Question Answer Comments Discussion of Advance Directives occurred with: Not Discussed Does the patient have a Living Will? No Does the patient have Health Care Power of Ict Developer? No Healthcare Agents on File Name Relationship Healthcare Agent [facility] Communication Juanita Silva Adult Child Health Care Agent Care Teams Booking Agent Relationship Specialty Start Date End Date Dhruv Moss MD [address] [place] [id number] PCP - General Family Medicine 08/27/21 documented as of this encounter
--- OUTSIDE RECORDS SUMMARY | 2024-02-26 04:33 | External Medical Summary | Summary of Care ---
Author Name Unknown Organization [facility] Address [address] [place] [address] Phone [phone] Care Team Providers Care Biomedical Technician Name Role Phone Drhuv Moss MD Primary Care Provide r Reason for Visit * Reason Onset Date Comments Advice 01/24/2024 Laci Encounter Details Date Type Department Care Team (Late st Contact Info) Description 01/24/2024 Telephone [facility] [place] [address] [facility] [place] [address] Jitendra Aguero MD 200 [place] [address] Advice (Laci) Allergies No known active allergiesdocumented [...] for Nausea. 60 Tablet 3 12/09/2021 Active Nuon TherapeuticsTouch Delica Lancets 30GIndications:Type 2 diabetes mellitus with hemoglobin A1c goal of less than 8.0% ([facility]) Use to test blood sugar three times a day DXe11.9 300 Each 3 12/16/2021 Active [employer]Touch Verio In Vitro Strip (Glucose Blood)Indications:Ty pe 2 diabetes mellitus with hemoglobin A1c goal of less than 8.0% ([facility]) Use to test blood sugar three times a day DXe11.9 300 Strip 3 12/16/2021 Active [employer] TherapeuticsTouch Verio Flex System w/Device Kit Use as directed . 0 12/16/2021 Active Acetaminophen 500 MG Oral Tablet Take 1 Tablet by mouth every 6 hours as needed. 0 Active Nystatin 738305 UNIT/GM External Cream Apply topically to affected [...] Release (PriLOSEC)Indication s:MDS (myelodysplastic syndrome), high grade ([facility]) Take 1 capsule by mouth twice daily [...] rent major depressive disorder, in partial remission ([facility]) TAKE ONE CAPSULE BY MOUTH EVERY DAY do not cut, crush, or chew 90 Capsule 0 12/18/2023 Active Isosorbide Mononitrate ER 30 MG Oral Tablet Extended Release 24 Hour (Imdur)Indications:C oronary artery disease involving siletz tribe coronary artery of siletz tribe heart without angina pectoris,HTN, goal below 140/90 [...] eyes and macular edema, unspecified whether terminal operator insulin use (HCC) 1.25 mg IZ PRN 05/12/2023 05/11/2024 Active ROPivacaine (Naropin) inj 1.5 mgIndications: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 Does not have any evidence of dsxiq-tgqozr-mvec disease Last Assessment & Plan: Continues to [...] -continue venlafaxine Coronary artery disease invo lving siletz tribe coronary artery of siletz tribe heart without angina pectoris 06/12/2017 Overview: S/P EDIL to LAD on 06/12/17 Last Assessment & Plan: No angina - Continue atorvastatin, isosorbide, metoprolol - no ASA due to thrombocytopenia Dyslipidemia, goal LDL below 70 11/25/2011 Last Assessment & Plan: Patient having no issues. She continues on Lipitor 40 mg daily Last lab I will was that I can find were from [phone] Assessment/plan: Dyslipidemia with patient currently taking Lipitor [...] mRNA, LNP-s, No Pre serve, 2-Dose Series ([employer] 02/05/2021,01/08/2021 COVID-19, LNP-s, No Preserve , Ye-sucrose, [...] lab client services- specimen just got to [facility], would still need to be couriered to another facility to be run, unsure if the retail customer service representative already went there this morning. Called Juanita- [...] Team (Late st Contact Info) Description 01/24/2024 2:30 PM EDT Hem/Onc Treatment Hematology/Oncology Treatment, [place] [address] [place] [phone] Alejandra, Chair 3 Hem Onc [facility] 200 [facility] [place] [address] Arrived 01/31/2024 10:00 AM EDT Home Visit Kaylie at [place], [address] [place] [address] Marisa Pacheco RN [address] [address] 01/31/2024 10:40 AM EDT Laboratory Lab [facility] Phlebotomy [facility] [address] [place] [address] Gmc, Gml Mobile Home Draw [address] [place] [address] 02/07/2024 10:40 AM EDT Laboratory Lab [facility] Ph[facility] [address] [place] [address] Gmc, Gml Mobile Home Draw [address] [place] [address] 02/14/2024 10:40 AM EDT Laboratory Lab Mobile Phlebotomy [facility] [address] [place] [address] Gmc, Gml Mobile Home Draw [address] [place] [address] 02/21/2024 10:40 AM EDT Laboratory Lab Mobile Phlebotomy [facility] [address] [place] [address] Gmc, Gml Mobile Home Draw [address] [place] [address] 02/27/2024 2:00 PM EDT Office Visit Pharmacy, [address] [place] [address] [place] [address] 03/28/2024 11:00 AM EDT Office Visit Hematology/Oncology Joanie Roberts [place] 200 [facility] [place] [address] Sharon Mejia CRNP [address] [place] [address] [place] [address] 07/02/2024 1:00 PM EDT Office Visit [address] [place] [phone] Abby Bennett CRNP [address] [place] [address] [place] [address] 07/03/2024 1:30 PM EDT Imaging Radiology [address] [place] [address] 12/24/2024 2:30 PM EST Nurse Only Ancillary [address] [place] [address] [place], Nurse Annual [address] [place] [address] 01/13/2025 11:40 AM EST Office Visit [address] [place] [phone] Dhruv Moss MD [address] [place] [address] [place] [address] Scheduled Orders Name Type Priority Associated Diagnoses [...] D LEVEL ONCE IN A LIFETIME-USE SMARTSET# 54726 Completed 05/11/2015 Zoster Vaccines Completed 10/30/2020, 02/2020, [...] this encounter Medical Devices Implanted Type Area Fire Alarm Technician Device Identifier Shelf Expiration Date Model / Serial / Lot Port Pwr Mri Isp Profile - [id number] Implanted:Qty: 1 on 07/24/2020 by Akash Castillo MD at OR [facility] Right: Chest CR BARD : PERIPHERAL VASCULAR 04/12/2021 [id number] / / [id number] documented as of this encounter Results * (ABNORMAL) COMPREHENSIVE METABOLIC PANEL (01/24/2024 1:37 PM EDT) BUN 19 6 - 20 mg/dL 01/24/2024 2:03 PM EDT [facility] 56 Creatinine 1.0 0.5 - 1.0 mg/dL 01/24/2024 2:03 PM EDT [facility] 56 Estimated Glomerular Filtration Rate 61 >=60 mL/min 01/24/2024 2:03 PM EDT [facility] 56 Comment:eGFR is calculated b ased on the CKD-EPI 2020 equation Sodium 138 135 - 146 mmol/L 01/24/2024 2:03 PM EDT [facility] 56 Potassium 4.9 3.5 - 5.1 mmol/L 01/24/2024 2:03 PM EDT [facility] 56 Chloride 102 98 - 107 mmol/L 01/24/2024 2:03 PM EDT [facility] 56 CO2 28 22 - 32 mmol/L 01/24/2024 2:03 PM EDT [facility] 56 Anion Gap 8 7 - 15 mmol/L 01/24/2024 2:03 PM EDT [facility] 56 Glucose 175(H) 70 - 120 mg/dL 01/24/2024 2:03 PM EDT [facility] 56 Albumin 4.2 3.8 - 5.0 g/dL 01/24/2024 2:03 PM EDT [facility] 56 AST 20 10 - 35 U/L 01/24/2024 2:03 PM EDT [facility] 56 Alkaline Phosphatase 83 35 - 130 U/L 01/24/2024 2:03 PM EDT [facility] 56 Bilirubin, Total 0.3 <=1.2 mg/dL 01/24/2024 2:03 PM EDT [facility] 56 Calcium 10.0 8.4 - 10.2 mg/dL 01/24/2024 2:03 PM EDT [facility] 56 Protein 7.6 6.0 - 8.3 g/dL 01/24/2024 2:03 PM EDT [facility] 56- ALT 26 10 - 35 U/L 01/24/2024 2:03 PM EDT [facility] 56- Blood Venous blood specimen / Unknown Venipuncture / Unknown 01/24/2024 1:37 PM EDT 01/24/2024 1:37 PM EDT Jitendra Aguero MD LAB BLOOD ORDERABLES [facility] 56- [address] [place] [address] documented in this encounter Visit Diagnoses Diagnosis [...] the patient have Health Care Power of Supervisor Audit Clerks? No Code Status History Code Status Date Activated Date Inactivated Comments Full Code 07/27/2021 7:04 PM 07/31/2021 5:19 PM This order reflects the patients wishes and were consensually agreed upon. Question Answer Comments Discussion of Advance Directives occurred with: Patient Does the patient have a Living Will? No Does the patient have Health Care Power of Supervisor Audit Clerks? No Full Code 07/25/2021 12:43 PM 07/25/2021 11:03 PM Thi s order reflects the patients wishes and were consensually agreed upon. Question Answer Comments Discussion of Advance Directives occurred with: Patient/Family Does the patient have a Living Will? No Does the patient have Health Care Power of Supervisor Audit Clerks? No Full Code 06/12/2017 2:29 PM 06/12/2017 10:37 PM This order reflects the patients wishes and were consensually agreed upon. Question Answer Comments Discussion of Advance Directives occurred with: Not Discussed Does the patient have a Living Will? No Does the patient have Health Care Power of Supervisor Audit Clerks? No Healthcare Agents on File Name Relationship Healthcare Agent Relationshi p Communication Juanita Silva Adult Child Health Care Agent Care Teams Biomedical Technician Relationship Specialty Start Date End Date Dhruv Moss MD [address] [place] [address] [place] [address] PCP - General Family Medicine 08/27/21 documented as of this encounter
--- OUTSIDE RECORDS SUMMARY | 2024-02-26 04:33 | External Medical Summary | Summary of Care ---
Author Name Unknown Organization [facility] Address [address] [place] [address] Phone [phone] Care Team Providers Care Lacquer Polisher Name Role Phone Dhruv Moss MD Primary Care Provide r Reason for Visit * Reason Comments Sick Encounter Details Date Type Department Care Team (Late st Contact Info) Description 01/24/2024 1:15 PM EDT Nurse Only Hematology/Oncology [facility] [address] [place] [address] Alejandra, Nurse Hem Onc [facility] [address] [place] [address] Sick Allergies No known active allergiesdocumented as of [...] for Nausea. 60 Tablet 3 12/09/2021 Active RainKing Delica Lancets 30GIndications:Type 2 diabetes mellitus with hemoglobin A1c goal of less than 8.0% ([facility]) Use to test blood sugar three times a day DXe11.9 300 Each 3 12/16/2021 Active UGOBE In Vitro Strip (Glucose Blood)Indications:Ty pe 2 diabetes mellitus with hemoglobin A1c goal of less than 8.0% ([facility]) Use to test blood sugar three times a day DXe11.9 300 Strip 3 12/16/2021 Active RainKing Verio Flex System w/Device Kit Use as directed . 0 12/16/2021 Active Acetaminophen 500 MG Oral Tablet Take 1 Tablet by mouth every 6 hours as needed. 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 Does not have any evidence of upvmy-pupfdl-jydk disease Last Assessment & Plan: Continues to [...] -continue venlafaxine Coronary artery disease invo lving sioux coronary artery of sioux heart without angina pectoris 06/12/2017 Overview: S/P EDIL to LAD on 06/12/17 Last Assessment & Plan: No angina - Continue atorvastatin, isosorbide, metoprolol - no ASA due to thrombocytopenia Dyslipidemia, goal LDL below 70 11/25/2011 Last Assessment & Plan: Patient having no issues. She continues on Lipitor 40 mg daily Last lab I will was that I can find were from [phone] Assessment/plan: Dyslipidemia with patient currently taking Lipitor [...] Sign Reading Time Taken Comments Blood Pressure 100/64 01/24/2024 1:49 PM EDT Pulse 89 01/24/2024 1:49 PM EDT Temperature 36.7 C (98.1 F) 01/24/2024 1:49 PM ED T Respiratory Rate 20 01/24/2024 1:49 PM EDT Oxygen Saturation 94% 01/24/2024 1:49 PM EDT Inhaled Oxygen Concentration - - [...] as of this encounter Progress Notes * Bogdan Gutiérrez RN - 01/24/2024 2:14 PM EDT Spoke with Dr. Aguero and the patient. OK with adding patient on for 1L hydration today. Spoke with patient and she is agreeable to this. Oxygen while ambulating was 97%, pt denies SOB today but did have some yesterday. She is aware she will need to submit a urine, cup to be provided to patient to submit. * Makenzie Barth LPN - 01/24/2024 1:48 PM EDT Blood pressure 100/64, pulse 89, temperature 36.7 C (98.1 F), temperature source Tympanic, resp. rate 20, last menstrual period 10/29/2000, SpO2 94%, not currently . Patient complains of being "extremely tired" for the past couple of days. Patient denies any dizziness or lightheadedness. Complaint of nausea "yesterday", states she took a dose of her PRN zofran which was effective. Patient reports due to her increased amount of sleeping she eats and drinks when awake. Patient complaint of SOB yesterday with activity. documented in this encounter Plan of Treatment Upcoming Encounters Date Type Department Care Team (Late st Contact Info) Description 01/31/2024 10:00 AM EDT Home Visit Ananya at Home, [facility] [address] [facility] [place] [address] Mraisa Pacheco RN [address] [place] [address] 01/31/2024 10:40 AM EDT Laboratory Lab Mobile Phle[facility] [address] [place] [address] Gmc, [facility] Mobile Home Draw [address] [place] [address] 02/07/2024 10:40 AM EDT Laboratory Lab [facility] [address] [place] [address] Gmc, Gml Mobile Home Draw [address] [place] [address] 02/14/2024 10:40 AM EDT Laboratory Lab [facility] [address] [place] [address] Gmc, Gml Mobile Home Draw [address] [place] [address] 02/21/2024 10:40 AM EDT Laboratory Lab [facility] [address] [place] [address] Gm, Gml Mobile Home Draw [address] [place] [address] 02/27/2024 2:00 PM EDT Office Visit Pharmacy, [address] [place] [address] [place] [address] 03/28/2024 11:00 AM EDT Office Visit Hematology/Oncology [facility] [place] [address] [facility] [place] [phone] Sharon Mejia CRNP [address] [place] [address] 07/02/2024 1:00 PM EDT Office Visit Family Medicine [address] [place] [phone] Abby Bennett CRNP [address] [place] [address] [place] [address] 07/03/2024 1:30 PM EDT Imaging Radiology [address] [place] [address] 12/24/2024 2:30 PM EST Nurse Only Ancillary [address] [place] [address] [place], Nurse Annual [address] [place] [address] 01/13/2025 11:40 AM EST Office Visit Family [address] [place] [phone] Dhruv Moss MD [address] [place] [address] [place] [address] Scheduled Procedures Name Priority Associated Diagnoses Date/Ti [...] D LEVEL ONCE IN A LIFETIME-USE SMARTSET# 33581 Completed 05/11/2015 Zoster Vaccines Completed 10/30/2020, 02/2020, [...] this encounter Medical Devices Implanted Type Area Compressor Technician Device Identifier Shelf Expiration Date Model / Serial / Lot Port Pwr Mri Isp Profile - [id number] Implanted:Qty: 1 on 07/24/2020 by Akash Castillo MD at OR [facility] Right: Chest CR BARD : PERIPHERAL VASCULAR 04/12/2021 [id number] / / [id number] documented as of this encounter Advance Directives [...] the patient have Health Care Power of Chopper Operator? No Code Status History Code Status Date Activated Date Inactivated Comments Full Code 07/27/2021 7:04 PM 07/31/2021 5:19 PM This order reflects the patients wishes and were consensually agreed upon. Question Answer Comments Discussion of Advance Directives occurred with: Patient Does the patient have a Living Will? No Does the patient have Health Care Power of Chopper Operator? No Full Code 07/25/2021 12:43 PM 07/25/2021 11:03 PM Thi s order reflects the patients wishes and were consensually agreed upon. Question Answer Comments Discussion of Advance Directives occurred with: Patient/Family Does the patient have a Living Will? No Does the patient have Health Care Power of Chopper Operator? No Full Code 06/12/2017 2:29 PM 06/12/2017 10:37 PM This order reflects the patients wishes and were consensually agreed upon. Question Answer Comments Discussion of Advance Directives occurred with: Not Discussed Does the patient have a Living Will? No Does the patient have Health Care Power of Chopper Operator? No Healthcare Agents on File Name Relationship Healthcare Agent Relationshi p Communication Juanita Silva Adult Child Health Care Agent Care Teams Lacquer Polisher Relationship Specialty Start Date End Date Dhruv Moss MD [address] [place] [address] [place] [address] PCP - General Family Medicine 08/27/21 documented as of this encounter
--- OUTSIDE RECORDS SUMMARY | 2024-02-26 04:33 | External Medical Summary | Summary of Care ---
Author Name Unknown Organization [facility] Address [address] [place] [address] Phone [phone] Care Team Providers Care Framing Inspector Name Role Phone Dhruv Moss MD Primary Care Provide r Reason for Visit * Reason Onset Date Comments Advice 01/24/2024 Laci Encounter Details Date Type Department Care Team (Late st Contact Info) Description 01/24/2024 Telephone [facility]ology[facility] [place] [address] [facility] [place] [address] Jitendra Aguero MD 200 [place] [address] Advice (Laci) Allergies No known active allergiesdocumented [...] for Nausea. 60 Tablet 3 12/09/2021 Active Scint-XTouch Delica Lancets 30GIndications:Type 2 diabetes mellitus with hemoglobin A1c goal of less than 8.0% ([facility]) Use to test blood sugar three times a day DXe11.9 300 Each 3 12/16/2021 Active Scint-XTouch Verio In Vitro Strip (Glucose Blood)Indications:Ty pe 2 diabetes mellitus with hemoglobin A1c goal of less than 8.0% ([facility]) Use to test blood sugar three times a day DXe11.9 300 Strip 3 12/16/2021 Active Scint-XTouch Verio Flex System w/Device Kit Use as directed . 0 12/16/2021 Active Acetaminophen 500 MG Oral Tablet Take 1 Tablet by mouth every 6 hours as needed. 0 Active Nystatin 872350 UNIT/GM External Cream Apply topically to affected [...] Release (PriLOSEC)Indication s:MDS (myelodysplastic syndrome), high grade ([facility]) Take 1 capsule by mouth twice daily 180 Capsule 2 06/10/2023 Active NovoLIN R 100 UNIT/ML Injection Solution (insulin REGULAR human)Indications:Ty pe 2 diabetes mellitus with hemoglobin A1c goal of less than 8.0% ([facility]) Inject 8 units with breakfast, 4 units with lunch, and 6 units with dinner + sliding scale of 1 units per every 20 over 140 MAX DAILY DOSE 50 units 50 mL 5 07/25/2023 Active Venlafaxine HCl ER 150 MG Oral Capsule Extended Release 24 Hour (Effexor XR)Indications:Recur rent major depressive disorder, in partial remission ([facility]) TAKE ONE CAPSULE BY MOUTH EVERY DAY do not cut, crush, or chew 90 Capsule 0 12/18/2023 Active Isosorbide Mononitrate ER 30 MG Oral Tablet Extended Release 24 Hour (Imdur)Indications:C oronary artery disease involving [place] coronary artery of [place] heart without angina pectoris,HTN, goal below 140/90 [...] syndrome), high grade (HCC),Stem cells transplant status ([facility]),Acquired hypothyroidism 1000 mL IV DAILY PRN 12/08/2021 Active bevaCIZumab (Avastin) inj 1.25 mgIndications: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 Does not have any evidence of lkjve-vykeun-evud disease Last Assessment & Plan: Continues to [...] -continue venlafaxine Coronary artery disease invo lving [place] coronary artery of [place] heart without angina pectoris 06/12/2017 Overview: S/P EDIL to LAD on 06/12/17 Last Assessment & Plan: No angina - Continue atorvastatin, isosorbide, metoprolol - no ASA due to thrombocytopenia Dyslipidemia, goal LDL below 70 11/25/2011 Last Assessment & Plan: Patient having no issues. She continues on Lipitor 40 mg daily Last lab I will was that I can find were from [phone] Assessment/plan: Dyslipidemia with patient currently taking Lipitor [...] mRNA, LNP-s, No Pre serve, 2-Dose Series (WhoWantsMe) 02/05/2021,01/08/2021 COVID-19, LNP-s, No Preserve , Ye-sucrose, [...] as of this encounter Miscellaneous Notes * Addendum Note - Geo Chang RN [...] lab client services- specimen just got to [facility], would still need to be couriered to another facility to be run, unsure if the blast furnace keeper helper already went there this morning. Called Juanita- [...] 2:00 PM EDT Immunization/Injecti on Hematology/Oncology Treatment, [place] [address] [place] [phone] Nurse, Med [address] [place] [address] 01/31/2024 10:00 AM EDT Home Visit isinger at [facility] [address] [place] [address] Marisa Pacheco, TANYA [address] [place] [address] 01/31/2024 10:40 AM EDT Laboratory Lab Mobile Phlebotomy [facility] [address] [place] [address] [facility], [facility] Mobile Home Draw [address] [place] [address] 02/07/2024 10:40 AM EDT Laboratory Lab Mobile Phlebotomy [facility] [address] [place] [address] [facility], Gml Mobile Home Draw [address] [place] [address] 02/14/2024 10:40 AM EDT Laboratory Lab Mobile Phlebotomy [facility] [address] [place] [address] Gm, Gml Mobile Home Draw [address] [place] [address] 02/21/2024 10:40 AM EDT Laboratory Lab Mobile Phlebotomy [facility] [address] [place] [address] [facility], Gml Mobile Home Draw [address] [place] [address] 02/27/2024 2:00 PM EDT Office Visit Pharmacy, [address] [place] [address] [place] [address] 03/28/2024 11:00 AM EDT Office Visit Hematology/Oncology [facility] [phone] Sharon Mejia CRNP [address] [place] [address] [place] [address] 07/02/2024 1:00 PM EDT Office Visit Family Medicine [address] [place] [phone] Abby Bennett [address] [place] [address] 07/03/2024 1:30 PM EDT Imaging Radiology [address] [place] [address] 12/24/2024 2:30 PM EST Nurse Only Ancillary [address] [place] [address] [place], Nurse Annual Wellness [address] [place] [address] [place] [address] 01/13/2025 11:40 AM EST Office Visit Family Medicine [address] [place] [phone] Dhruv Moss MD [address] [place] [address] [place] [address] Pending Results Name Type Priority Associated Diagnoses Date /Time CBC WITH WBC DIFFERENTIAL Lab STAT MDS (myelodysplastic syndrome), high grade (HCC) 01/24/2024 1:37 PM EDT COMPREHENSIVE METABOLIC PANEL Lab STAT MDS (myelodysplastic syndrome), high grade (HCC) 01/24/2024 1:37 PM EDT Scheduled Orders Name Type Priority Associated Diagnoses Orde r Schedule CBC WITH WBC DIFFERENTIAL Lab STAT MDS (myelodysplastic syndrome), high grade (HCC) Expected: 01/24/2024 (Approximate), Expires: 01/23/2025 COMPREHENSIVE METABOLIC PANEL Lab STAT MDS (myelodysplastic syndrome), high grade (HCC) Expected: 01/24/2024 (Approximate), Expires: 01/23/2025 URINALYSIS, REFLEX TO MICROSCOPIC Lab STAT MDS [...] D LEVEL ONCE IN A LIFETIME-USE SMARTSET# 34505 Completed 05/11/2015 Zoster Vaccines Completed 10/30/2020, 02/2020, [...] this encounter Medical Devices Implanted Type Area Tubular Stock Glass Bulb Machine Former Device Identifier Shelf Expiration Date Model / Serial / Lot Port Pwr Mri Isp Profile - [id number] Implanted:Qty: 1 on 07/24/2020 by Akash Castillo MD at OR [facility] Right: Chest CR BARD : PERIPHERAL VASCULAR 04/12/2021 [id number] / / [id number] documented as of this encounter Visit Diagnoses [...] the patient have Health Care Power of Yard Stocker? No Code Status History Code Status Date Activated Date Inactivated Comments Full Code 07/27/2021 7:04 PM 07/31/2021 5:19 PM This order reflects the patients wishes and were consensually agreed upon. Question Answer Comments Discussion of Advance Directives occurred with: Patient Does the patient have a Living Will? No Does the patient have Health Care Power of Yard Stocker? No Full Code 07/25/2021 12:43 PM 07/25/2021 11:03 PM Thi s order reflects the patients wishes and were consensually agreed upon. Question Answer Comments Discussion of Advance Directives occurred with: Patient/Family Does the patient have a Living Will? No Does the patient have Health Care Power of Yard Stocker? No Full Code 06/12/2017 2:29 PM 06/12/2017 10:37 PM This order reflects the patients wishes and were consensually agreed upon. Question Answer Comments Discussion of Advance Directives occurred with: Not Discussed Does the patient have a Living Will? No Does the patient have Health Care Power of Yard Stocker? No Healthcare Agents on File Name Relationship Healthcare Agent [facility] Communication Juanita Silva Adult Child Health Care Agent Care Teams Framing Inspector Relationship Specialty Start Date End Date Dhruv Moss MD [address] [place] [id number] PCP - General Family Medicine 08/27/21 documented as of this encounter
--- OUTSIDE RECORDS SUMMARY | 2024-02-26 04:33 | External Medical Summary | Summary of Care ---
Author Name Unknown Organization [facility] Address [address] [place] [address] Phone [phone] Care Team Providers Care Administrative Professional Name Role Phone Dhruv Moss MD Primary Care Provide r Reason for Visit * Reason Comments IV Therapy Hydration Encounter Details Date Type Department Care Team (Latest Contact Info) Description 01/24/2024 2:30 PM EDT Hem/Onc Treatment Hematology/Oncology Treatment, [address] [phone] Alejandra, Chair 3 Hem Onc [address] [address] H/O allogeneic bone marrow transplant [...] for Nausea. 60 Tablet 3 12/09/2021 Active Scratch WirelessTouch Delica Lancets 30GIndications:Type 2 diabetes mellitus with hemoglobin A1c goal of less than 8.0% ([facility]) Use to test blood sugar three times a day DXe11.9 300 Each 3 12/16/2021 Active Scratch WirelessTouch Verio In Vitro Strip (Glucose Blood)Indications:Ty pe 2 diabetes mellitus with hemoglobin A1c goal of less than 8.0% ([facility]) Use to test blood sugar three times a day DXe11.9 300 Strip 3 12/16/2021 Active Scratch WirelessTouch Verio Flex System w/Device Kit Use as directed . 0 12/16/2021 Active Acetaminophen 500 MG Oral Tablet Take 1 Tablet by mouth every 6 hours as needed. 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 Does not have any evidence of wvuao-vwvoam-npfi disease Last Assessment & Plan: Continues to [...] -continue venlafaxine Coronary artery disease invo lving [place] coronary artery of chin[place] heart without angina pectoris 06/12/2017 Overview: S/P EDIL to LAD on 06/12/17 Last Assessment & Plan: No angina - Continue atorvastatin, isosorbide, metoprolol - no ASA due to thrombocytopenia Dyslipidemia, goal LDL below 70 11/25/2011 Last Assessment & Plan: Patient having no issues. She continues on Lipitor 40 mg daily Last lab I will was that I can find were from [phone] Assessment/plan: Dyslipidemia with patient currently taking Lipitor [...] mRNA, LNP-s, No Pre serve, 2-Dose Series (Anipipo) 02/05/2021,01/08/2021 COVID-19, LNP-s, No Preserve , Ye-sucrose, [...] 10:00 AM EDT Home Visit Ananya at [facility] 132 [facility] [place] [address] Marisa Pacheco RN 132 [facility] [place] [address] 01/31/2024 10:40 AM EDT Laboratory Lab Mobile Phlebotomy [facility] [address] [place] [address] Gmc, Gml Mobile Home Draw [address] [place] [address] 02/07/2024 10:40 AM EDT Laboratory Lab Mobile Phlebotomy [facility] [address] [place] [address] Gmc, Gml Mobile Home Draw [address] [place] [address] 02/14/2024 10:40 AM EDT Laboratory Lab Mobile Phlebotomy [facility] [address] [place] [address] Gm, Gml Mobile Home Draw [address] [place] [address] 02/21/2024 10:40 AM EDT Laboratory Lab Mobile Phlebotomy [facility] [address] [place] [address] [facility] Mobile Home Draw [address] [place] [address] 02/27/2024 2:00 PM EDT Office Visit Pharmacy, [address] [place] [address] [place] [address] 03/28/2024 11:00 AM EDT Office Visit Hematology/Oncology [facility]anie [place] 200 [place] [phone] Sharon Mejia CRNP [facility] [address] 03/28/2024 11:30 AM EDT Immunization/Injecti on Hematology/Oncology Treatment, [place] [address] [address] [facility] [address] Nurse, [facility] [address] [facility] [address] 07/02/2024 1:00 PM EDT Office Visit [address] [place] [phone] Abby Bennett CRNP [address] [place] [address] [place] [address] 07/03/2024 1:30 PM EDT Imaging Radiology [address] [place] [address] 12/24/2024 2:30 PM EST Nurse Only Ancillary [address] [place] [address] Cristina, Nurse Annual [address] [place] [address] 01/13/2025 11:40 AM EST Office Visit [address] [place] [phone] Dhruv Moss MD [address] [place] [address] [place] [address] Scheduled Procedures Name Priority Associated Diagnoses Date/Ti [...] D LEVEL ONCE IN A LIFETIME-USE SMARTSET# 45777 Completed 05/11/2015 Zoster Vaccines Completed 10/30/2020, 02/2020, [...] this encounter Medical Devices Implanted Type Area Environmental Resource Specialist Device Identifier Shelf Expiration Date Model / Serial / Lot Port Pwr Mri Isp Profile - [id number] Implanted:Qty: 1 on 07/24/2020 by [facility] Right: Chest CR BARD : PERIPHERAL VASCULAR 04/12/2021 [id number] / / [id number] documented as of this encounter Visit Diagnoses [...] the patient have Health Care Power of Paper Wrapping Machine Operator? No Code Status History Code Status Date Activated Date Inactivated Comments Full Code 07/27/2021 7:04 PM 07/31/2021 5:19 PM This order reflects the patients wishes and were consensually agreed upon. Question Answer Comments Discussion of Advance Directives occurred with: Patient Does the patient have a Living Will? No Does the patient have Health Care Power of Paper Wrapping Machine Operator? No Full Code 07/25/2021 12:43 PM 07/25/2021 11:03 PM Thi s order reflects the patients wishes and were consensually agreed upon. Question Answer Comments Discussion of Advance Directives occurred with: Patient/Family Does the patient have a Living Will? No Does the patient have Health Care Power of Paper Wrapping Machine Operator? No Full Code 06/12/2017 2:29 PM 06/12/2017 10:37 PM This order reflects the patients wishes and were consensually agreed upon. Question Answer Comments Discussion of Advance Directives occurred with: Not Discussed Does the patient have a Living Will? No Does the patient have Health Care Power of Paper Wrapping Machine Operator? No Healthcare Agents on File Name Relationship Healthcare Agent [facility] p Communication Juanita Silva Adult Child Health Care Agent Care Teams Administrative Professional Relationship Specialty Start Date End Date Dhruv Moss MD [address] [place] [id number] PCP - General Family Medicine 08/27/21 documented as of this encounter
--- OUTSIDE RECORDS SUMMARY | 2024-02-26 04:34 | External Medical Summary ---
Author Name Unknown Address Unknown Organization K09:[facility] [place] [address] [place] [address] Laboratory Report Ordering Provider Test Date Status ANN MUNGUIA 01/24/2024 13:37:50 Final Observation Date Value Abnormality Reference (Units ) Status BUN 01/24/2024 13:37:50 19 6-20 (mg/dL) Final Creatinine 01/24/2024 13:37:50 1.0 0.5-1.0 (mg/dL) Final Glomerular filtration rate/1.73 sq M.predicted [Volume Rate/Area] in Serum, Plasma or Blood by Creatinine-based formula (CKD-EPI) 01/24/2024 13:37:50 61 >=60 (mL/min) Final eGFR is calculated based on the CKD-EPI 2020 equation SODIUM 01/24/2024 13:37:50 138 135-146 (m mol/L) Final Potassium 01/24/2024 13:37:50 4.9 3.5-5.1 (m mol/L) Final Cl 01/24/2024 13:37:50 102 98-107 (mm ol/L) Final CO2 01/24/2024 13:37:50 28 22-32 (mmo l/L) Final Anion gap 01/24/2024 13:37:50 8 7-15 (mmol /L) Final Glucose 01/24/2024 13:37:50 175 Above high normal 70 -120 (mg/dL) Final Albumin 01/24/2024 13:37:50 4.2 3.8-5.0 (g /dL) Final AST (Aspartate aminotransferase) 01/24/2024 13:37:50 20 10-35 (U/L) Fin al Alk Phos 01/24/2024 13:37:50 83 35-130 (U/ L) Final Bilirubin, Total 01/24/2024 13:37:50 0.3 <=1 .2 (mg/dL) Final Calcium 01/24/2024 13:37:50 10.0 8.4-10.2 ( mg/dL) Final Protein 01/24/2024 13:37:50 7.6 6.0-8.3 (g /dL) Final ALT (Alanine aminotransferase) 01/24/2024 13:37:50 26 10-35 (U/L) Jose J molina Performing Location [facility] [place] [address] [place] [address]
--- OUTSIDE RECORDS SUMMARY | 2024-02-26 04:34 | External Medical Summary ---
Author Name Unknown Address Unknown Organization K01:[facility] [place] [facility] [address] [facility] [place] [address] Laboratory Report Ordering Provider Test Date Status ANN MUNGUIA 01/24/2024 08:47:00 Final Observation Date Value Abnormality Reference (Units ) Status SYNC LEUKOCYTES IN BLOOD BY AUTOMATED COUNT 01/24/2024 08:47:00 6.83 4.00-10.80 (K/uL) Final Neutrophils/100 leukocytes in Blood by Manual count 01/24/2024 08:47:00 21.0 Below low normal 40.0-75.0 (%) Final Lymphocytes/100 leukocytes in Blood by Manual count 01/24/2024 08:47:00 63.0 Above high normal 18.0-42.0 (%) Final Monocytes/100 leukocytes in Blood by Manual count 01/24/2024 08:47:00 13.0 Above high normal 1.0-11.0 (%) Final Blasts/100 leukocytes in Blood by Manual count 01/24/2024 08:47:00 3.0 Above high normal <=0.0 (%) Final Neutrophils [#/volume] in Blood by Manual count 01/24/2024 08:47:00 1.43 Below low normal 1.80-7.70 (K/uL) Final Lymphocytes [#/volume] in Blood by Manual count 01/24/2024 08:47:00 4.30 1.00-4.80 (K/uL) Final Monocytes [#/volume] in Blood by Manual count 01/24/2024 08:47:00 0.89 0.00-1.10 (K/uL) Final Blasts [#/volume] in Blood by Manual count 01/24/2024 08:47:00 0.20 Above high normal <=0.00 (K/uL) Final Neutrophils.agranular [Presence] in Blood by Light microscopy 01/24/2024 08:47:00 Present Abnormal None Seen Final Variant lymphocytes [Presence] in Blood by Light microscopy 01/24/2024 08:47:00 Present Abnormal None Seen Final Smudge cells [Presence] in Blood by Light microscopy 01/24/2024 08:47:00 Present Abnormal None Seen Final Neutrophils.vacuolate d [Presence] in Blood by Light microscopy 01/24/2024 08:47:00 Present Abnormal None Seen Final Performing Location [facility]ATORY [facility] [place] - [address] [facility] [address]
--- OUTSIDE RECORDS SUMMARY | 2024-02-26 04:34 | External Medical Summary | Summary of Care ---
Author Name Unknown Organization [facility] Address [address] [place] [address] Phone [phone] Care Team Providers Care Dispatcher Street Department Name Role Phone Dhruv Moss MD Primary Care Provide r Encounter Details Date Type Department Care Team (Late st Contact Info) Description 01/02/2024 Population Health External Data Unspecified Department Allergies No known active allergiesdocumented as of this encounter (statuses as of 01/03/2024) Medications Medication Sig Dispensed Refills Start Date [...] for Nausea. 60 Tablet 3 12/09/2021 Active Event[employer]ar DelEdaixi Lancets 30GIndications:Type 2 diabetes mellitus with hemoglobin A1c goal of less than 8.0% ([facility]) Use to test blood sugar three times a day DXe11.9 300 Each 3 12/16/2021 Active [place] WindmillToUserlike Live Chat Verio In Vitro Strip (Glucose Blood)Indications:Ty pe 2 diabetes mellitus with hemoglobin A1c goal of less than 8.0% ([facility]) Use to test blood sugar three times a day DXe11.9 300 Strip 3 12/16/2021 Active [employer] Verio Flex System w/Device Kit Use as directed . 0 12/16/2021 Active Acetaminophen 500 MG Oral Tablet Take 1 Tablet by mouth every 6 hours as needed. 0 Active Nystatin 989302 UNIT/GM External Cream Apply topically to affected [...] THE MORNING 90 Tablet 2 05/01/2023 Active metFORMIN HCl 1000 MG Oral Tablet (Glucophage)Indicati ons:Type 2 diabetes mellitus with hemoglobin A1c goal of less than 8.0% ([facility]) TAKE 1 TABLET BY MOUTH TWICE DAILY WITH MORNING AND EVENING MEALS 180 Tablet 1 05/01/2023 Active Metoprolol Succinate ER 50 MG [...] Other (pain). 30 Tablet 0 05/01/2023 Active Premarin 0.625 MG/GM Vaginal Cream (Estrogens Conjugated) Administer 1 g into the vagina at bedtime. As directed. 42.5 g 5 05/10/2023 Active Polyethylene Glycol 3350 17 GM/SCOOP Oral Powder (Miralax) Take 17 g by mouth in the morning. 0 04/20/2023 Active Omeprazole 20 MG Oral Capsule Delayed Release (PriLOSEC)Indication s:MDS (myelodysplastic syndrome), high grade ([facility]) Take 1 capsule by mouth twice daily 180 Capsule 2 06/10/2023 Active NovoLIN R 100 UNIT/ML Injection Solution (insulin REGULAR human)Indications:Ty pe 2 diabetes mellitus with hemoglobin A1c goal of less than 8.0% ([facility]) Inject 8 units with breakfast, 4 units with lunch, and 6 units with dinner + sliding scale of 1 units per every 20 over 140 MAX DAILY DOSE 50 units 50 mL 5 07/25/2023 Active Venlafaxine HCl ER 150 MG Oral Capsule Extended Release 24 Hour (Effexor XR)Indications:Recur rent major depressive disorder, in partial remission ([facility]) TAKE ONE CAPSULE BY MOUTH EVERY DAY do not cut, crush, or chew 90 Capsule 0 12/18/2023 Active Isosorbide Mononitrate ER 30 MG Oral Tablet Extended Release 24 Hour (Imdur)Indications:C oronary artery disease involving [place] coronary artery of [place] heart without angina pectoris,HTN, goal below 140/90 TAKE 1 TABLET BY MOUTH IN THE MORNING 90 Tablet 0 12/18/2023 Active Levothyroxine Sodium 75 MCG Oral Tablet (Levoxyl)Indications :Postoperative hypothyroidism TAKE ONE TABLET BY MOUTH daily first thing in the morning at least 30 minutes prior to breakfast or other meds 30 Tablet 0 12/29/2023 Active Levemir 100 UNIT/ML Subcutaneous Solution (insulin Detemir)Indications: Type 2 diabetes mellitus with hemoglobin A1c goal of less than 8.0% (HCC) Inject 20 Units under the skin in the morning. 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 Date of Transplant: 09/01/2021 Conditioning Regimen: Fludarabine / Busulfan 2 with post-transplant Cytoxan ABO/Rh: A Positive CMV status: CMV Positive--- GRID: [id number] / DID: [id number] Matched Unrelated 10/24--- DPB1 Match ABO/Rh: A [...] Thrombocytopenia 12/06/2022 Last Assessment & Plan: Platelets 81516 on 03/20 Questionable hematuria Urinary incontinence 09/12/2022 [...] failure. Does not have any evidence of jibnk-gcwfhp-vccx disease Last Assessment & Plan: Continues to [...] -continue venlafaxine Coronary artery disease invo lving [place] coronary artery of [place] heart without angina pectoris 06/12/2017 Overview: S/P EDIL to LAD on 06/12/17 Last Assessment & Plan: No angina - Continue atorvastatin, isosorbide, metoprolol - no ASA due to thrombocytopenia Dyslipidemia, goal LDL below 70 11/25/2011 Last Assessment & Plan: Patient having no issues. She continues on Lipitor 40 mg daily Last lab I will was that I can find were from [id number] Assessment/plan: Dyslipidemia with patient currently taking Lipitor [...] as of this encounter (statuses as of 01/03/2024) Resolved Problems Problem Noted Date Diagnosed Date [...] as of this encounter (statuses as of 01/03/2024) Immunizations Name Administration Dates Next Due COVID-19 mRNA, LNP-s, No Pre serve, 2-Dose Series (ClarityRay) 02/05/2021,01/08/2021 COVID-19, LNP-s, No Preserve , Ey-sucrose, Ages 12+ (Pfizer) 12/06/2021 Pneumococcal Conjugate Vacc, [...] Care Team (Late st Contact Info) Description 01/04/2024 3:15 PM EST Office Visit Hematology/Oncology [facility] [place] [address] [facility] [place] [phone] Jitendra Aguero MD [address] [facility] [place] [address] 01/10/2024 10:40 AM EST Laboratory [facility] [address], [place] [id number] [facility], [facility] Draw [address] [place] [address] 01/17/2024 10:40 AM EST Laboratory [facility] [address] [place] [address] [facility] Draw [address] [place] [address] 01/24/2024 10:40 AM EDT Laboratory Lab [facility] Phlebotomy [facility] [address] [place] [address] Gmc, [facility] Home Draw [address] [place] [address] 01/26/2024 2:00 PM EDT Immunization/Injectio n Hematology/Oncology [facility], [place] [facility] [phone] Nurse, Med [address] [facility] [place] [address] 01/31/2024 10:00 AM EDT Home Visit [facility] [address] [place] [address] Marisa Pacheco, TANYA [address] [place] [address] 01/31/2024 10:40 AM EDT Laboratory [facility] [address] [place] [address] G[facility], [facility] Draw [address] [place] [address] 02/07/2024 10:40 AM EDT Laboratory Lab Mobile Phlebotomy [facility] [address] [place] [address] Gmc, [facility] Draw [address] [place] [address] 02/14/2024 10:40 AM EDT Laboratory Lab Mobile Phlebotomy [facility] [address] [place] [address] Gmc, [facility] Home Draw [address] [place] [address] 02/21/2024 10:40 AM EDT Laboratory Lab Mobile Phlebotomy [facility] [address] [place] [address] Gmc, [facility] Home Draw [address] [place] [address] 02/27/2024 2:00 PM EDT Office Visit Pharmacy, [address] [place] [address] [place] [address] 07/02/2024 1:00 PM EDT Office Visit Family Medicine [address] [place] [phone] Abby Bennett [address] [place] [address] 07/03/2024 1:30 PM EDT Imaging Radiology [address] [place] [address] 12/24/2024 2:30 PM EST Nurse Only Ancillary [address] [place] [address] Cristina, Nurse Annual Wellness [address] [place] [address] [place] [address] 01/13/2025 11:40 AM EST Office Visit Family Medicine [address] [place] [phone] Dhruv Moss MD [address] [place] [address] [place] [address] Scheduled Procedures Name Priority Associated Diagnoses Date/Ti [...] D LEVEL ONCE IN A LIFETIME-USE SMARTSET# [id number] Completed 05/11/2015 Zoster Vaccines Completed 10/30/2020, 02/2020, [...] this encounter Medical Devices Implanted Type Area Civil Lawyer Device Identifier Shelf Expiration Date Model / Serial / Lot Port Pwr Mri Isp Profile - [id number] Implanted:Qty: 1 on 07/24/2020 by Akash Castillo MD at OR [facility] Right: Chest CR BARD : PERIPHERAL VASCULAR 04/12/2021 [id number] / / [id number] documented as of this encounter Advance Directives [...] the patient have Health Care Power of Metallographic Technician? No Code Status History Code Status Date Activated Date Inactivated Comments Full Code 07/27/2021 7:04 PM 07/31/2021 5:19 PM This order reflects the patients wishes and were consensually agreed upon. Question Answer Comments Discussion of Advance Directives occurred with: Patient Does the patient have a Living Will? No Does the patient have Health Care Power of Metallographic Technician? No Full Code 07/25/2021 12:43 PM 07/25/2021 11:03 PM Thi s order reflects the patients wishes and were consensually agreed upon. Question Answer Comments Discussion of Advance Directives occurred with: Patient/Family Does the patient have a Living Will? No Does the patient have Health Care Power of Metallographic Technician? No Full Code 06/12/2017 2:29 PM 06/12/2017 10:37 PM This order reflects the patients wishes and were consensually agreed upon. Question Answer Comments Discussion of Advance Directives occurred with: Not Discussed Does the patient have a Living Will? No Does the patient have Health Care Power of Metallographic Technician? No Healthcare Agents on File Name Relationship Healthcare Agent [facility] p Communication Juanita Silva Adult Child Health Care Agent Care Teams Dispatcher Street Department Relationship Specialty Start Date End Date Dhruv Moss MD [address] [place] [address] [place] [address] PCP - General Family Medicine 08/27/21 documented as of this encounter
--- OUTSIDE RECORDS SUMMARY | 2024-02-26 04:34 | External Medical Summary ---
Author Name Unknown Address Unknown Organization K01:[facility] [address] [facility] [place] [address] Laboratory Report Ordering Provider Test Date Status ANN MUNGUIA 01/17/2024 08:27:00 Final Observation Date Value Abnormality Reference (Units ) Status SYNC LEUKOCYTES IN BLOOD BY AUTOMATED COUNT 01/17/2024 08:27:00 6.61 4.00-10.80 (K/uL) Final Neutrophils/100 leukocytes in Blood by Manual count 01/17/2024 08:27:00 15.0 Below low normal 40.0-75.0 (%) Final Lymphocytes/100 leukocytes in Blood by Manual count 01/17/2024 08:27:00 73.0 Above high normal 18.0-42.0 (%) Final Monocytes/100 leukocytes in Blood by Manual count 01/17/2024 08:27:00 1.0 1.0-11.0 (%) Final Eosinophils/100 leukocytes in Blood by Manual count 01/17/2024 08:27:00 2.0 0.0-6.0 (%) Final Metamyelocytes/100 leukocytes in Blood by Manual count 01/17/2024 08:27:00 4.0 Above high normal <=0.0 (%) Final Blasts/100 leukocytes in Blood by Manual count 01/17/2024 08:27:00 5.0 Above high normal <=0.0 (%) Final Neutrophils [#/volume] in Blood by Manual count 01/17/2024 08:27:00 0.99 Below low normal 1.80-7.70 (K/uL) Final Lymphocytes [#/volume] in Blood by Manual count 01/17/2024 08:27:00 4.83 Above high normal 1.00-4.80 (K/uL) Final Monocytes [#/volume] in Blood by Manual count 01/17/2024 08:27:00 0.07 0.00-1.10 (K/uL) Final Eosinophils [#/volume] in Blood by Manual count 01/17/2024 08:27:00 0.13 0.00-0.70 (K/uL) Final Metamyelocytes [#/volume] in Blood by Manual count 01/17/2024 08:27:00 0.26 Above high normal <=0.00 (K/uL) Final Blasts [#/volume] in Blood by Manual count 01/17/2024 08:27:00 0.33 Above high normal <=0.00 (K/uL) Final Neutrophils.agranular [Presence] in Blood by Light microscopy 01/17/2024 08:27:00 Present Abnormal None Seen Final Performing Location LABORATORY [facility] [place] - [address] [place]. [facility] [address]
--- OUTSIDE RECORDS SUMMARY | 2024-02-26 04:34 | External Medical Summary ---
Author Name Unknown Address Unknown Organization K09:[facility] [place] [address] Laboratory Report Ordering Provider Test Date Status ANN MUNGUIA 01/24/2024 13:37:50 Final Observation Date Value Abnormality Reference (Units ) Status Nucleated erythrocytes/100 leukocytes [Ratio] in Blood by Automated count 01/24/2024 13:37:50 Final Performing Location [facility] [place] [address]
--- OUTSIDE RECORDS SUMMARY | 2024-02-26 04:34 | External Medical Summary ---
Author Name Unknown Address Unknown Organization K01:[facility] [place] [facility] [place][note 2] [address] [facility] [address] [place] [address] Laboratory Report Ordering Provider Test Date Status ANN MUNGUIA 01/17/2024 08:27:00 Final Observation Date Value Abnormality Reference (Units ) Status WBC, Total 01/17/2024 08:27:00 6.61 4.00-10.80 (K/uL) Final RBC 01/17/2024 08:27:00 2.07 3.85-5.15 (M/uL) Final Hemoglobin 01/17/2024 08:27:00 8.7 Below low normal 12.0-15.3 (g/dL) Final HCT 01/17/2024 08:27:00 25.8 Below low normal 36.0-45.2 (%) Final MCV 01/17/2024 08:27:00 124.6 81.5-97.5 (fL) Final MCH 01/17/2024 08:27:00 42.0 27.0-34.0 (pg) Final MCHC 01/17/2024 08:27:00 33.7 32.0-36.0 (g/dL) Final RDW 01/17/2024 08:27:00 14.2 11.5-15.5 (%) Final Platelets 01/17/2024 08:27:00 11 Below lower panic limits 140-400 (K/uL) Final MPV 01/17/2024 08:27:00 12.4 6.6-11.1 (fL) Final Nucleated erythrocytes/100 leukocytes [Ratio] in Blood by Automated count 01/17/2024 08:27:00 0 <=0 (/100 WBCs) Final Performing Location [facility] [place] [address] [place] [address]
--- OUTSIDE RECORDS SUMMARY | 2024-02-26 04:34 | External Medical Summary ---
Author Name Unknown Address Unknown Organization K09:[facility] [place] [address] Laboratory Report Ordering Provider Test Date Status ANN MUNGUIA 01/24/2024 13:37:50 Final Observation Date Value Abnormality Reference (Units ) Status SYNC LEUKOCYTES IN BLOOD BY AUTOMATED COUNT 01/24/2024 13:37:50 7.24 4.00-10.80 (K/uL) Final Segs 01/24/2024 13:37:50 2.6 Below low normal 40.0-75.0 (%) Final Lymphs % 01/24/2024 13:37:50 63.2 Above high normal 18.0-42.0 (%) Final Monos 01/24/2024 13:37:50 15.8 Above high normal 1.0-11.0 (%) Final Eosinophils 01/24/2024 13:37:50 8.2 Above high normal 0.0-6.0 (%) Final Basos 01/24/2024 13:37:50 10.2 Above high normal 0.0-2.0 (%) Final Absolute Segs 01/24/2024 13:37:50 0.19 Below low normal 1.80-7.70 (K/uL) Final Lymphs, absolute 01/24/2024 13:37:50 4.63 1.00-4.80 (K/ul) Final Monos, Abs 01/24/2024 13:37:50 1.16 Above high normal 0.00-1.10 (K/uL) Final Eos, Abs 01/24/2024 13:37:50 0.60 0.00-0.70 (K/uL) Final Basos, Abs 01/24/2024 13:37:50 0.75 Above high normal 0.00-0.20 (K/uL) Final Performing Location [facility] [place] [address]
--- OUTSIDE RECORDS SUMMARY | 2024-02-26 04:34 | External Medical Summary ---
Author Name Unknown Address Unknown Organization K01:[facility] [place] [facility] [address] [facility] [address] [place] [address] Laboratory Report Ordering Provider Test Date Status ANN MUNGUIA 01/10/2024 09:27:00 Final Observation Date Value Abnormality Reference (Units ) Status WBC, Total 01/10/2024 09:27:00 6.42 4.00-10.80 (K/uL) Final RBC 01/10/2024 09:27:00 2.13 3.85-5.15 (M/uL) Final Hemoglobin 01/10/2024 09:27:00 8.9 Below low normal 12.0-15.3 (g/dL) Final HCT 01/10/2024 09:27:00 26.1 Below low normal 36.0-45.2 (%) Final MCV 01/10/2024 09:27:00 122.5 81.5-97.5 (fL) Final MCH 01/10/2024 09:27:00 41.8 27.0-34.0 (pg) Final MCHC 01/10/2024 09:27:00 34.1 32.0-36.0 (g/dL) Final RDW 01/10/2024 09:27:00 14.0 11.5-15.5 (%) Final Platelets 01/10/2024 09:27:00 13 Below lower panic limits 140-400 (K/uL) Final MPV 01/10/2024 09:27:00 11.7 6.6-11.1 (fL) Final Nucleated erythrocytes/100 leukocytes [Ratio] in Blood by Automated count 01/10/2024 09:27:00 0 <=0 (/100 WBCs) Final Performing Location [facility] [place] [address] [place] [address]
--- OUTSIDE RECORDS SUMMARY | 2024-02-26 04:34 | External Medical Summary ---
Author Name Unknown Address Unknown Organization K01:LAB[facility]ATORY [place] [address] [place] [address] Laboratory Report Ordering Provider Test Date Status ANN MUNGUIA 01/03/2024 08:37:00 Final Observation Date Value Abnormality Reference (Units ) Status WBC, Total 01/03/2024 08:37:00 6.51 4.00-10.80 (K/uL) Final RBC 01/03/2024 08:37:00 2.15 3.85-5.15 (M/uL) Final Hemoglobin 01/03/2024 08:37:00 8.9 Below low normal 12.0-15.3 (g/dL) Final HCT 01/03/2024 08:37:00 26.4 Below low normal 36.0-45.2 (%) Final MCV 01/03/2024 08:37:00 122.8 81.5-97.5 (fL) Final MCH 01/03/2024 08:37:00 41.4 27.0-34.0 (pg) Final MCHC 01/03/2024 08:37:00 33.7 32.0-36.0 (g/dL) Final RDW 01/03/2024 08:37:00 13.9 11.5-15.5 (%) Final Platelets 01/03/2024 08:37:00 11 Below lower panic limits 140-400 (K/uL) Final MPV 01/03/2024 08:37:00 8.9 6.6-11.1 (fL) Final Nucleated erythrocytes/100 leukocytes [Ratio] in Blood by Automated count 01/03/2024 08:37:00 0 <=0 (/100 WBCs) Final Performing Location LAB[facility]ORY [facility] [place] [address] [place] [address]
--- OUTSIDE RECORDS SUMMARY | 2024-02-26 04:34 | External Medical Summary | Summary of Care ---
Author Name Unknown Organization [facility] Address [address] [place] [address] Phone [phone] Care Team Providers Care Coach Driver Name Role Phone Dhruv Moss MD Primary Care Provide r Reason for Visit * Reason Comments Follow Up F/U Encounter Details Date Type Department Care Team (Late st Contact Info) Description 01/04/2024 3:15 PM EST Office Visit Hematology/Oncology Joanie Roberts [place] [address] [facility] [place] [address] Jitendra Aguero MD [address] [place] [address] MDS (myelodysplastic syndrome), high grade (HCC)*; H/O allogeneic bone marrow transplant (HCC) Allergies No known active allergiesdocumented as of this encounter (statuses as of 01/04/2024) Medications Medication Sig Dispensed Refills Start Date [...] for Nausea. 60 Tablet 3 12/09/2021 Active DBL AcquisitionToCrowdChat Delica Lancets 30GIndications:Type 2 diabetes mellitus with hemoglobin A1c goal of less than 8.0% ([facility]) Use to test blood sugar three times a day DXe11.9 300 Each 3 12/16/2021 Active DBL AcquisitionTouch Verio In Vitro Strip (Glucose Blood)Indications:Ty pe 2 diabetes mellitus with hemoglobin A1c goal of less than 8.0% ([facility]) Use to test blood sugar three times a day DXe11.9 300 Strip 3 12/16/2021 Active DBL AcquisitionToCrowdChat Verio Flex System w/Device Kit Use as directed . 0 12/16/2021 Active Acetaminophen 500 MG Oral Tablet Take 1 Tablet by mouth every 6 hours as needed. 0 Active Nystatin 042569 UNIT/GM External Cream Apply topically to affected [...] 24 Hour (Imdur)Indications:C oronary artery disease involving gulkana coronary artery of gulkana heart without angina pectoris,HTN, goal below 140/90 [...] other meds 90 Tablet 1 01/04/2024 Active Hospital, Clinic, or Other Facility Administered Medication Ordered Dose Route Frequency Start Date End Date Status NSS 0.9% 1,000 mL bolus infusionIndications:MDS (myelodysplastic syndrome), high grade (HCC),Stem cells transplant status (HCC),Acquired hypothyroidism 1000 mL IV DAILY PRN 12/08/2021 Active bevaCIZumab (Avastin) inj 1.25 mgIndications: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 Date of Transplant: 09/01/2021 Conditioning Regimen: Fludarabine / Busulfan 2 with post-transplant Cytoxan ABO/Rh: A Positive CMV status: CMV Positive--- GRID: [id number] / DID: [id number] Matched Unrelated 10/24--- DPB1 Match ABO/Rh: A [...] Thrombocytopenia 12/06/2022 Last Assessment & Plan: Platelets 32484 on 03/20 Questionable hematuria Urinary incontinence 09/12/2022 [...] failure. Does not have any evidence of zxfxx-fdrdwt-rkdm disease Last Assessment & Plan: Continues to [...] -continue venlafaxine Coronary artery disease invo lving gulkana coronary artery of gulkana heart without angina pectoris 06/12/2017 Overview: S/P EDIL to LAD on 06/12/17 Last Assessment & Plan: No angina - Continue atorvastatin, isosorbide, metoprolol - no ASA due to thrombocytopenia Dyslipidemia, goal LDL below 70 11/25/2011 Last Assessment & Plan: Patient having no issues. She continues on Lipitor 40 mg daily Last lab I will was that I can find were from [phone] Assessment/plan: Dyslipidemia with patient currently taking Lipitor [...] as of this encounter (statuses as of 01/04/2024) Resolved Problems Problem Noted Date Diagnosed Date [...] as of this encounter (statuses as of 01/04/2024) Immunizations Name Administration Dates Next Due COVID-19 mRNA, LNP-s, No Pre serve, 2-Dose Series ([email or web address]) 02/05/2021,01/08/2021 COVID-19, LNP-s, No Preserve , Ye-sucrose, [...] Sign Reading Time Taken Comments Blood Pressure 114/63 01/04/2024 3:01 PM EST Pulse 88 01/04/2024 3:01 PM EST Temperature 36.7 C (98 F) 01/04/2024 3:01 PM EST Respiratory Rate 18 01/04/2024 3:01 PM EST Oxygen Saturation 98% 01/04/2024 3:01 PM EST Inhaled Oxygen Concentration - - Weight 73.8 kg (162 lb 11.2 oz) 01/04/2024 3:01 PM EST Height - - Body Mass Index 26.26 12/22/2023 3:34 PM EST documented in this encounter Functional Status Functional [...] as of this encounter Progress Notes * Jitendra Aguero MD - 01/04/2024 3:15 PM EST NAME: Ruth Burger :1950 73-year-old female, DIAGNOSIS: 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 CURRENT TREATMENT: Currently under observation but may require blood transfusion if the hemoglobin level is less than 8 ( because of cardiac reasons ), or Platelet transfusion if It is less than 10 or bleeding complications. - allogeneic transplant was over 1 year back, absolute lymphocyte count improved over 1000, no chronic GVHD, not on immunosuppressive therapy, --> does not require irradiated blood products. PREVIOUS TREATMENT: - Dacogen between 07/2020 -June 2021( 9 cycles) - allogeneic stem cell transplantation in August 2021. -blood and Platelet transfusions DIAGNOSTIC WORKUP: Bone marrow examination (06/24/2020) -MDS with multi lineage dysplasia, 4% erythroblast, patchy fibrosis. 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 Significance isunknown at this time. -chromosome analysis --> Karyotype: 47,XX,del(5)(q22q35),del(11)(p13p15.5),ider(20)(q10)del(20)(q 11.2q13.3),+mar[7]/46,XX[5] IPSS--> 2.5, INT -2 R-IPSS--> 5, high risk WHO --> 4, high risk. 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 No definitive evidence of disease progression morphologically, phenotypically or by genetic studies. Correlation with clinical findings and therapy is essential. Summary of Ancillary Findings (please review individual report for details): Flow cytometry: Negative for a clonal population Cytogenetics: Inadequate study normal female karyocyte in one cell. FISH: Negative for all probes used (see report for details). NGS myeloid (allele frequency): MYC N26S (47%). -she underwent allogenic stem cell transplantation in August 2021. Bone marrow examination done on 08/30/2022: -mild hypercellular bone marrow with some mild dysgranulopoiesis, no increased blast. - Karyotype: 47,XX,del(5)(q22q35),del(11)(p15.5p13),ider(20)(q10)del(20)(q11.2q13.3),+mar[15] //46,XY[5 - Lately noticed to have worsening thrombocytopenia and anemia and now neutropenia for the last few months. Bone marrow examination done on 03/20/2023: -normocellular bone marrow in the patient with treated MDS, - Routine cytogenetics reveals an abnormal karyotype with numerous abnormalities including deletions and additions (see outside report for specific details). FISH studies reveal a del 20q12 and del 2m32-n52. Molecular studies reveal a RUNX1 abnormality as a tier 2 with potential significance. - Karyotype: 47,XX,del(5)(q22q35),del(11)(p15p13),+20,ider(20)(q10)del(20)(q11.2q13.3)x1~2[13 ]//46,XY[7] OTHER IMPORTANT HISTORY: - Diabetes mellitus, on insulin and oral hypoglycemic agent -Coronary artery disease, S/P stent placement -Hypertension -Hyperlipidemia -Hypothyroidism -depression, on venlafaxine. -GERD, hiatal hernia, she is not on specific treatment for that. 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 Presently she is not on any pain medication -S/P cholecystectomy -S/P partial hysterectomy No history of malignancy in the past. -back surgery. - herpes ophthalmicus. INTERVAL HISTORY: She has come the clinic for the follow-up, she came to clinic by herself. She is tired, some shortness of breath, no increasing coughing, not on oxygen treatment, no bleeding or bruising from any sites, good appetite, current weight around 162 lb, no fever, she is on acyclovir prophylaxis, not on antibiotic prophylaxis, no new anginal chest pain, no increasing leg edema.Currently she is not on any anticoagulant treatment. Not on antiplatelet agent. She ambulates slowly, ECOG PS 1. Denies any abdominal discomfort. Past Medical History: Diagnosis Date Hager's palsy Carpal tunnel syndrome Depressive disorder, not elsewhere classified DM type 2, goal A1c below 7 Encounter for hepatitis C screening test for low risk patient 04/18/2017 negative for B and C. Essential hypertension with goal blood pressure less than 140/90 Geniculate herpes zoster adrien aguirre History of immunosuppression therapy 04/19/2022 Hyperlipidemia LDL goal < 100 Migraine S/P primary angioplasty with coronary stent 06/12/2017 EDIL to LAD on 06/12/17 Screening for HIV without presence of risk factors 04/18/2017 negative Past Surgical History: Procedure Laterality Date COLONOSCOPY, DIAGNOSTIC (RECTUM) 05/06/2019 fair prep, repeat 5 yrs/COLONOSCOPY FLEXIBLE PROXIMAL DIAGNOSTIC performed by Robyn Bynum MD at ENDOSCOPY [facility] DILATION AND CURETTAGE (D&C) x 2 EGD, FLEXIBLE, DIAGNOSTIC N/A 10/22/2021 ESOPHAGOGASTRODUODENOSCOPY (EGD), FLEXIBLE, TRANSORAL, DIAGNOSTIC performed by Tom Rivera MD at[facility] INFORMATION Bilateral AVASTIN CONSENT OU SIGNED; DR TORRES (EXP 09/04/2021) INFORMATION Bilateral EYLEA OU CONSENT SIGNED, Dr. Torres/Dr. Damon (Exp 01-15-2022) INJECTION OF EYE DRUG Left 09/04/2020 # 1 Avastin OS, Dr. Torres INJECTION OF EYE DRUG Left 10/02/2020 # 2 Avastin OS, INJECTION OF EYE DRUG Left 11/27/2020 # 1 Eylea OS, INJECTION OF EYE DRUG Right 01/15/2021 # 1 Eylea OD, Dr. Torres INJECTION OF EYE DRUG Left 01/15/2021 # 2 Eylea OS, Dr. Torres INJECTION OF EYE DRUG Left 02/12/2021 # 3 Eylea OS, INJECTION OF EYE DRUG Right 07/16/2021 #[address] Torres INJECTION OF EYE DRUG Left 07/16/2021 #3 Avastin OS, Dr Torres INSER TUNN ACC DEV;5 YRS/OLDER N/A 07/24/2020 INSERT TUNNELED CENTRAL VENOUS ACCESS WITH SUBQ PORT performed by Akash Castillo MD at OR [facility] IR BIOPSY 08/30/2022 IR BIOPSY 03/20/2023 IR VENOUS ACCESS NON-MEDIPORT 07/23/2021 IR VENOUS ACCESS NON-MEDIPORT 09/21/2021 LIGATE/CUT OVIDUCT(S) MAMMOGRAM SCREENING BILATERAL Bilateral 06/29/2023 scattered fibroglandular densities, category 2 repeat 1 year MISCELLANEOUS ORDER ([facility] ONLY) ACT 112 FORM SIGNED; DR. TORRES (07/17/2020) MISCELLANEOUS ORDER ([facility] ONLY) Left Eylea OS Consent signed, 11/27/2020-11/27/2021 OTHER (INFORMATION) Bilateral AVASTIN OU CONSENT DR. DAMON/MELISSA EXP. 05/12/24 PARTIAL HYSTERECTOMY 2008 has right ovary--pelvic pain REMOVE GALLBLADDER open REPAIR HIP FRACTURE(S), W/FIXATION Right 04/13/2023 Right cephalomedullary nail--Dr. Gaspar SPINAL FUSION, LUMBAR, COMBINED 2012 Dr. Kelley Current Outpatient Medications Medication Sig Dispense Refill BD Pen Needle Mini U/F 31G X 5 MM (Insulin Pen Needle) Use with xultophy once a day dx e11.9 100 Each 3 Ondansetron HCl 8 MG Oral Tablet Take 1 Tablet by mouth every 8 hours as needed for Nausea. 60 Tablet 3 Nitroglycerin 0.4 MG Sublingual Tablet Sublingual (Nitrostat) Place 1 Tablet under the tongue every5 minutes as needed for Pain, Chest. up to 3 doses in 15 minutes (Patient taking differently: Place1 Tablet under the tongue every 5 minutes as needed for Pain, Chest. up to 3 doses in 15 minutes) 25 Tablet 3 Diclofenac Sodium 1 % External Gel Apply topically to affected area . Apply to bilateral knees Prochlorperazine Maleate 10 MG Oral Tablet (Compazine) Take by mouth 1 Tablet every 6 hours as needed for Nausea. 60 Tablet 3 OneTouch Delica Lancets 30G Use to test blood sugar three times a day DXe11.9 300 Each 3 OneTouch Verio In Vitro Strip (Glucose Blood) Use to test blood sugar three times a day DXe11.9 300Strip 3 OneTouch Verio Flex System w/Device Kit Use as directed . Acetaminophen 500 MG Oral Tablet Take 1 Tablet by mouth every 6 hours as needed. Nystatin 551527 UNIT/GM External Cream Apply topically to affected area 2 times a day. Apply to affected area twice a day for 7 days. 45 g 0 Acyclovir 800 MG Oral Tablet (Zovirax) Take 1 Tablet by mouth in the morning and 1 Tablet before bedtime. 60 Tablet 10 Atorvastatin Calcium 40 MG Oral Tablet (Lipitor) TAKE 1 TABLET BY MOUTH IN THE MORNING 90 Tablet 2 metFORMIN HCl 1000 MG Oral Tablet (Glucophage) TAKE 1 TABLET BY MOUTH TWICE DAILY WITH MORNING AND EVENING MEALS 180 Tablet 1 Metoprolol Succinate ER 50 MG Oral Tablet Extended Release 24 Hour (toPROL XL) Take 1 Tablet by mouth in the morning. 90 Tablet 3 Myrbetriq 50 MG Oral Tablet Extended Release 24 Hour (Mirabegron ER) Take 1 Tablet by mouth in the morning. 30 Tablet 11 Solifenacin Succinate 5 MG Oral Tablet (VESIcare) Take 1 Tablet by mouth in the morning. 30 Tablet 12 traMADol HCl 50 MG Oral Tablet (Ultram) Take 1 Tablet by mouth every 6 hours as needed for Other (pain). 30 Tablet 0 Premarin 0.625 MG/GM Vaginal Cream (Estrogens Conjugated) Administer 1 g into the vagina at bedtime. As directed. 42.5 g 5 Polyethylene Glycol 3350 17 GM/SCOOP Oral Powder (Miralax) Take 17 g by mouth in the morning. Omeprazole 20 MG Oral Capsule Delayed Release (PriLOSEC) Take 1 capsule by mouth twice daily 180 Capsule 2 NovoLIN R 100 UNIT/ML Injection Solution (insulin REGULAR human) Inject 8 units with breakfast, 4 units with lunch, and 6 units with dinner + sliding scale of 1 units per every 20 over 140 MAX DAILY DOSE 50 units 50 mL 5 Venlafaxine HCl ER 150 MG Oral Capsule Extended Release 24 Hour (Effexor XR) TAKE ONE CAPSULE BY MOUTH EVERY DAY do not cut, crush, or chew 90 Capsule 0 Isosorbide Mononitrate ER 30 MG Oral Tablet Extended Release 24 Hour (Imdur) TAKE 1 TABLET BY MOUTHIN THE MORNING 90 Tablet 0 Levothyroxine Sodium 75 MCG Oral Tablet (Levoxyl) TAKE ONE TABLET BY MOUTH daily first thing in themorning at least 30 minutes prior to breakfast or other meds 30 Tablet 0 Levemir 100 UNIT/ML Subcutaneous Solution (insulin Detemir) Inject 20 Units under the skin in the morning. Current Facility-Administered Medications Medication Dose Route Frequency Provider Last Rate Last Admin NSS 0.9% 1,000 mL bolus infusion 1,000 mL Intravenous Daily PRN Chinmay Rodriguez PA-C 1,000 mL at 12/08/21 1137 bevaCIZumab (Avastin) inj 1.25 mg 1.25 mg Intravitreal PRN Usama Torres MD 1.25 mg at 05/12/23 1306 ROPivacaine (Naropin) inj 1.5 mg 1.5 mg Perineural PRN Usama Torres MD 1.5 mg at 307 Family History Problem Relation Age of Onset Diabetes Mother Heart Disorder Mother 69 ID Heart Disorder Father 56 ID; CHF Diabetes Father Heart disease Brother 73 ID Diabetes Sister Diabetes Sister Diabetes Sister Alcohol and Other Disorders Associated Brother Heart Disorder Brother 59 ID Diabetes Sister Cancer Sister multiple myeloma Cancer Sister breast Breast Cancer Sister Alzheimer's disease Sister Blood Disorder Brother ?missing factors from blood No Past Hx Daughter No Past Hx Son Eye Problems No significant family history Denies family hx Glaucoma No significant family history Denies family hx Social History Socioeconomic History Marital status: Spouse name: Not on file Number of children: Not on file Years of education: Not on file Highest education level: Not on file Occupational History Not on file Tobacco Use Smoking status: Never Smokeless tobacco: Never Vaping Use Vaping Use: Never used Substance and Sexual Activity Alcohol use: No Drug use: No Sexual activity: Not on file Other Topics Concern Not on file Social History Narrative for 53 yrs as of 12/22/2023 1 small dog No mold Social Determinants of Health Financial Resource Strain: Not on file Food Insecurity: No Food Insecurity (12/22/2023) Hunger Vital Sign Worried About Running Out of Food in the Last Year: Never true Ran Out of Food in the Last Year: Never true Transportation Needs: Not on file Physical Activity: Not on file Stress: Not on file Social Connections: Not on file Intimate Partner Violence: Not on file Housing Stability: Not on file On exam: LMP 10/29/2000 BP 114/63 (BP Site: Left Arm, BP Position: Sitting, BP Cuff Size: Regular) | Pulse 88 | Temp 36.7 C (98 F) (Tympanic) | Resp 18 | Wt 73.8 kg (162 lb 11.2 oz) | LMP 10/29/2000 | SpO2 98% | BMI 26.26 kg/m | BSA 1.85 m Constitutional: Patient is alert, cooperative and oriented x 3. Well built female, Patient is in noacute distress. HEENT: No icterus, no pallor, Throat and pharynx normal. Sinuses are non-tender. Neck: Supple and without lymphadenopathy or masses. No JVD. No Palpable supraclavicular lymph nodes. Lungs: Clear to auscultation. Bilateral symmetric air entry. No wheezing or rhonchi. Cardiovascular: Normal heart sounds, no murmurs.Regular rate and rhythm. Abdomen: Soft, nontender, no hepatomegaly, no splenomegaly. Bowel sounds are normal. Neurological: No gross focal neurological deficit; walks with a normal gait. Extremities: No finger clubbing, No cyanosis. No leg edema. Skin:: No skin rash. SPINE: No spinal or paraspinal tenderness. LABS: Blood workup done on 06/28/2023: -WBC 3900, H&H of 9.5/29.6, Platelet count 35406. - -ANC 1000, absolute lymphocyte count 2300. Blood workup done on 08/23/2023: -WBC 3700, H&H of 9.5/28.8, Platelet count 33121. -ANC 1000, Absolute lymphocyte count 2500. Blood workup done on 01/02/2024: -WBC 8200, H&H of 10/29.4, [place] [address] IMAGING: CT chest (06/28/2023: -interstitial lung changes -stable 7 mm left upper lobe nodule Severe coronary artery calcification. ASSESSMENT AND PLAN: 72-year-old female, a case of high-grade myelodysplastic syndrome diagnosed in 2019, received 9 cycles of Dacogen, had a very good response, and underwent clinic stem cell transplantation in August 2021 Blood workup improved, blood count was in normal range about a year back but then progressive drop in the hemoglobin level and Platelet count noted. She had a bone marrow done lately on 2 occasions shows recurrence of underlying myelodysplastic syndrome with the similar chromosomal changes suggest graft failure. Does not have any evidence of mylbq-jdkemv-uooz disease. Currently she is not on any immunosuppressive medications. Recently she had a fall, fractured right hip, underwent surgery, received blood and Platelet transfusion. (04/2023) Currently she gets blood checkup every weekly. Currently she is interested in pursuing to have a quality of the life and no active treatment and Cassius in agreement with her. I would like to continue to have CBCD checkup every weekly. If she needs blood product, she does not require irradiated blood products at this time Consider for blood transfusion if the hemoglobin level is less than 8 and Platelet count of less than 10. Port flush every 6 weekly if It is not used. I am planning to see her back in the clinic in about [address] Jitendra Aguero Hem/Onc (This note was completed using the dictation program Fluency Direct. As such, there may be misspellings word substitutions, or other variations that should not change the essence of the clinical content of this encounter note. If there is need for further clarification, please direct questions to the provider listed above.) documented in this encounter Nursing Notes * Eugenie Aiken LPN - 01/04/2024 3:03 PM EST Patient identifed by name and birthdate Do you have any concerns about pain management for today's visit? Yes. Patient instructed to discuss pain concerns with provider during the visit today Living Will or Advance Directive for Health Care as noted on the problem list. [facility] is a way you can talk to your provider on line through e-mail. Would you like to sign up? I can activate it for you? NO Filed Vitals: 01/04/24 1501 BP: 114/63 Pulse: 88 Resp: 18 Temp: 36.7 C (98 F) TempSrc: Tympanic SpO2: 98% Weight: 73.8 kg (162 lb 11.2 oz) Patient was instructed to not get up on the exam table/exam chair until directed and assisted by their provider; patient is to remain seated in the chair/ wheelchair/ exam table/ exam chair for fall prevention and safety reasons. Patient is aware to have assistance to step down off exam table/exam chair with personnel. Patient voiced full comprehension of instructions. documented in this encounter Plan of Treatment Upcoming Encounters Date Type Department Care Team (Late st Contact Info) Description 01/10/2024 10:40 AM EST Laboratory Lab Mobile [facility]lebotomy [facility] [address] [place] [address] [facility] Draw [address] [place] [address] 01/17/2024 10:40 AM EST Laboratory Lab Mobile Phlebotomy [facility] [address] [place] [address] [facility] Mobile Home Draw [address] [place] [address] 01/24/2024 10:40 AM EDT Laboratory Lab Mobile [facility]bot[facility] [address] [place] [address] [facility], [facility] Mobile Home Draw [address] [place] [address] 01/26/2024 2:00 PM EDT Immunization/Injecti on Hematology/Oncology Treatment, [place] [address] [place] [phone] Nurse, Med [address] [facility] [place] [address] 01/31/2024 10:00 AM EDT [facility] [address] [place] [address] Marisa Pacheco RN [address] [place] [address] 01/31/2024 10:40 AM EDT Laboratory Lab Mobile Ph[facility]botomy [facility] [address] [place] [address] [facility] [place] [address] [place] [address] 02/07/2024 10:40 AM EDT Laboratory Lab Mobile Ph[facility]botomy [facility] [address] [place] [address] [facility], [facility] Mobile Home Draw [address] [place] [address] 02/14/2024 10:40 AM EDT Laboratory Lab Mobile Phlebotomy [facility] [address] [place] [address] [facility], [facility] Mobile Home Draw [address] [place] [address] 02/21/2024 10:40 AM EDT Laboratory Lab Mobile Phlebotomy [facility] [address] [place] [address] [facility] [place] Draw [address] [place] [address] 02/27/2024 2:00 PM EDT Office Visit Pharmacy, [address] [place] [address] [place] [address] 03/28/2024 11:00 AM EDT Office Visit Hematology/Oncology [facility] [place] [address] [facility] [phone] Sharon Mejia CRNP [address] [place], [place] [address] [address] 07/02/2024 1:00 PM EDT Office Visit Family Medicine [address] [place] [phone] Abby Bennett [address] [place] [address] 07/03/2024 1:30 PM EDT Imaging Radiology [address] [place] [address] 12/24/2024 2:30 PM EST Nurse Only Ancillary [address] [place] [address] Cristina, Nurse [address] [place] [address] 01/13/2025 11:40 AM EST Office Visit Family Medicine [address] [place] [phone] Dhruv Moss MD [address] [place] [address] [place] [address] Scheduled Procedures Name Priority [...] D LEVEL ONCE IN A LIFETIME-USE SMARTSET# [id number] Completed 05/11/2015 Zoster Vaccines Completed 10/30/2020, 02/2020, [...] this encounter Medical Devices Implanted Type Area Keg Raiser Device Identifier Shelf Expiration Date Model / Serial / Lot Port Pwr Mri Isp Profile - [id number] Implanted:Qty: 1 on 07/24/2020 by Akash Castillo MD at OR [facility] Right: Chest CR BARD : PERIPHERAL VASCULAR 04/12/2021 [id number] / / [id number] documented as of this encounter Visit Diagnoses Diagnosis MDS (myelodysplastic syndrome), high grade (HCC)- Primary High grade myelodysplastic syndrome lesions 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 documented in this encounter Advance Directives Latest Code Status on File Code Status Date Activated Date Inactivated Comments Full Code 08/27/2021 1:10 PM 09/21/2021 5:49 PM This order reflects the patients wishes and were consensually agreed upon. Question Answer Comments Discussion of Advance Directives occurred with: Patient/Family Does the patient have a Living Will? No Does the patient have Health Care Power of Joint Creaser? No Code Status History Code Status Date Activated Date Inactivated Comments Full Code 07/27/2021 7:04 PM 07/31/2021 5:19 PM This order reflects the patients wishes and were consensually agreed upon. Question Answer Comments Discussion of Advance Directives occurred with: Patient Does the patient have a Living Will? No Does the patient have Health Care Power of Joint Creaser? No Full Code 07/25/2021 12:43 PM 07/25/2021 11:03 PM Thi s order reflects the patients wishes and were consensually agreed upon. Question Answer Comments Discussion of Advance Directives occurred with: Patient/Family Does the patient have a Living Will? No Does the patient have Health Care Power of Joint Creaser? No Full Code 06/12/2017 2:29 PM 06/12/2017 10:37 PM This order reflects the patients wishes and were consensually agreed upon. Question Answer Comments Discussion of Advance Directives occurred with: Not Discussed Does the patient have a Living Will? No Does the patient have Health Care Power of Joint Creaser? No Healthcare Agents on File Name Relationship Healthcare Agent [facility] p Communication Juanita Silva Adult Child Health Care Agent Care Teams Coach Driver Relationship Specialty Start Date End Date Dhruv Moss MD [address] [place], [place] [address] [id number] PCP - General Family Medicine 08/27/21 documented as of this encounter
--- OUTSIDE RECORDS SUMMARY | 2024-02-26 04:34 | External Medical Summary | Summary of Care ---
Author Name Unknown Organization [facility] Address [address] [place] [address] Phone [phone] Care Team Providers Care Batting Machine Operator Name Role Phone Dhruv Moss MD Primary Care Provide r Reason for Visit * Reason Onset Date Comments Test Results Lab 01/11/2024 Encounter Details Date Type Department Care Team (Late st Contact Info) Description 01/11/2024 Telephone Hematology/Oncology Treatment, [facility] [address] [place] [address] Jitendra Aguero MD [address] [place] [address] Test Results Lab Allergies No known active allergiesdocumented as of this encounter (statuses as of 01/11/2024) Medications Medication Sig Dispensed Refills Start Date [...] for Nausea. 60 Tablet 3 12/09/2021 Active [place] Delica Lancets 30GIndications:Type 2 diabetes mellitus with hemoglobin A1c goal of less than 8.0% ([facility]) Use to test blood sugar three times a day DXe11.9 300 Each 3 12/16/2021 Active [place] VerTopmall In Vitro Strip (Glucose Blood)Indications:Ty pe 2 diabetes mellitus with hemoglobin A1c goal of less than 8.0% ([facility]) Use to test blood sugar three times a day DXe11.9 300 Strip 3 12/16/2021 Active [place] Verio Flex System w/Device Kit Use as directed . 0 12/16/2021 Active Acetaminophen 500 MG Oral Tablet Take 1 Tablet by mouth every 6 hours as needed. 0 Active Nystatin 717192 UNIT/GM External Cream Apply topically to affected [...] hemoglobin A1c goal of less than 8.0% ([facility]) TAKE 1 TABLET BY MOUTH TWICE [...] hemoglobin A1c goal of less than 8.0% ([facility]) Inject 8 units with breakfast, 4 [...] 24 Hour (Imdur)Indications:C oronary artery disease involving [place] coronary artery of [place] heart without angina pectoris,HTN, goal below 140/90 [...] syndrome), high grade (HCC),Stem cells transplant status ([facility]),Acquired hypothyroidism 1000 mL IV DAILY PRN 12/08/2021 Active bevaCIZumab (Avastin) inj 1.25 mgIndications: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 Date of Transplant: 09/01/2021 Conditioning Regimen: Fludarabine / Busulfan 2 with post-transplant Cytoxan ABO/Rh: A Positive CMV status: CMV Positive--- GRID: [id number] / DID: [id number] Matched Unrelated 10/24--- DPB1 Match ABO/Rh: A [...] Thrombocytopenia 12/06/2022 Last Assessment & Plan: Platelets 26986 on 03/20 Questionable hematuria Urinary incontinence 09/12/2022 [...] failure. Does not have any evidence of gfhvy-oequpb-ajdu disease Last Assessment & Plan: Continues to [...] -continue venlafaxine Coronary artery disease invo lving [place] coronary artery of [place] heart without angina pectoris 06/12/2017 Overview: S/P EDIL to LAD on 06/12/17 Last Assessment & Plan: No angina - Continue atorvastatin, isosorbide, metoprolol - no ASA due to thrombocytopenia Dyslipidemia, goal LDL below 70 11/25/2011 Last Assessment & Plan: Patient having no issues. She continues on Lipitor 40 mg daily Last lab I will was that I can find were from [phone] Assessment/plan: Dyslipidemia with patient currently taking Lipitor [...] as of this encounter (statuses as of 01/11/2024) Resolved Problems Problem Noted Date Diagnosed Date [...] as of this encounter (statuses as of 01/11/2024) Immunizations Name Administration Dates Next Due COVID-19 mRNA, LNP-s, No Pre serve, 2-Dose Series ([employer]) 02/05/2021,01/08/2021 COVID-19, LNP-s, No Preserve , Ye-sucrose, [...] encounter Miscellaneous Notes * Telephone Encounter - Winsome Chang RN - 01/11/2024 4:07 PM EST Left message for patient that lab work is stable, continue weekly labs as scheduled. * Telephone Encounter - Winsome Chang RN - 01/11/2024 4:06 PM EST ----- Message from Jitendra Aguero MD sent at 01/11/2024 6:37 AM EST ----- Blood workup done on 01/02/2024: - WBC 6400, H&H of 8.9/26, platelet count of 13,000 Overall stable blood counts. No need for blood or platelet transfusion. Repeat CBCD in documented in this encounter Plan of Treatment Upcoming Encounters Date Type Department Care Team (Late st Contact Info) Description 01/17/2024 10:40 AM EST Laboratory Lab [place] [facility] [address] [place] [address] [facility] [place] [facility] [address] [place] [address] 01/24/2024 10:40 AM EDT Laboratory Lab [facility] [place] [address] [place] [address] [facility] [place] [facility] [address] [place] [address] 01/26/2024 2:00 PM EDT Immunization/Injecti on Hematology/Oncology Treatment, Vincent [address] [place] [phone] Nurse, [facility] [address] [place] [address] 01/31/2024 10:00 AM EDT Home Visit [facility], [facility] [address] [place] [address] Marisa Pacheco, TANYA [address] [place] [address] 01/31/2024 10:40 AM EDT Laboratory Lab [facility] [address] [place] [address] Gm, G[facility] Mobile Home Draw [address] [place] [address] 02/07/2024 10:40 AM EDT Laboratory Lab [facility] [place] [address] [place] [address] [facility] [place] [place] [facility] [address] [place] [address] 02/14/2024 10:40 AM EDT Laboratory Lab [facility] [place] [address] [place] [address] [facility] [facility] [address] [place] [address] 02/21/2024 10:40 AM EDT Laboratory Lab [facility] [place] [address] [place] [address] [facility] [place] [place] [facility] [address] [place] [address] 02/27/2024 2:00 PM EDT Office Visit Pharmacy, [address] [place] [address] [place] [address] 03/28/2024 11:00 AM EDT Office Visit Hematology/Oncology [facility] AlejandraVincent [address] [facility] [place] [phone] Sharon Mejia CRNP [address] [place] [address] 07/02/2024 1:00 PM EDT Office Visit Family [address] [place] [phone] Abby Bennett CRNP [address] [place] [address] [place] [address] 07/03/2024 1:30 PM EDT Imaging Radiology [address] [place] [address] 12/24/2024 2:30 PM EST Nurse Only Ancillary [address] [place] [address] [place], Nurse Annual [address] [place] [address] 01/13/2025 11:40 AM EST Office Visit [address] [place] [phone] Dhruv Moss MD [address] [place] [address] [place] [address] Scheduled Procedures Name Priority Associated Diagnoses Date/Ti [...] D LEVEL ONCE IN A LIFETIME-USE SMARTSET# [id number] Completed 05/11/2015 Zoster Vaccines Completed 10/30/2020, 02/2020, [...] this encounter Medical Devices Implanted Type Area Licensing Analyst Device Identifier Shelf Expiration Date Model / Serial / Lot Port Pwr Mri Isp Profile - [id number] Implanted:Qty: 1 on 07/24/2020 by Akash Castillo MD at [facility] Right: Chest CR BARD : PERIPHERAL VASCULAR 04/12/2021 [id number] / / [id number] documented as of this encounter Advance Directives [...] the patient have Health Care Power of Rolling Chair Pusher? No Code Status History Code Status Date Activated Date Inactivated Comments Full Code 07/27/2021 7:04 PM 07/31/2021 5:19 PM This order reflects the patients wishes and were consensually agreed upon. Question Answer Comments Discussion of Advance Directives occurred with: Patient Does the patient have a Living Will? No Does the patient have Health Care Power of Rolling Chair Pusher? No Full Code 07/25/2021 12:43 PM 07/25/2021 11:03 PM Thi s order reflects the patients wishes and were consensually agreed upon. Question Answer Comments Discussion of Advance Directives occurred with: Patient/Family Does the patient have a Living Will? No Does the patient have Health Care Power of Rolling Chair Pusher? No Full Code 06/12/2017 2:29 PM 06/12/2017 10:37 PM This order reflects the patients wishes and were consensually agreed upon. Question Answer Comments Discussion of Advance Directives occurred with: Not Discussed Does the patient have a Living Will? No Does the patient have Health Care Power of Rolling Chair Pusher? No Healthcare Agents on File Name Relationship Healthcare Agent Relationshi p Communication Juanita Silva Adult Child Health Care Agent Care Teams Batting Machine Operator Relationship Specialty Start Date End Date Dhruv Moss MD [address] [place] [address] [place] [address] PCP - General Family Medicine 08/27/21 documented as of this encounter
--- OUTSIDE RECORDS SUMMARY | 2024-02-26 04:34 | External Medical Summary ---
Author Name Unknown Address Unknown Organization K[facility] [address] [facility] [place] [address] Laboratory Report Ordering Provider Test Date Status ANN MUNGUIA 01/10/2024 09:27:00 Final Observation Date Value Abnormality Reference (Units ) Status SYNC LEUKOCYTES IN BLOOD BY AUTOMATED COUNT 01/10/2024 09:27:00 6.42 4.00-10.80 (K/uL) Final Neutrophils/100 leukocytes in Blood by Manual count 01/10/2024 09:27:00 24.0 Below low normal 40.0-75.0 (%) Final Lymphocytes/100 leukocytes in Blood by Manual count 01/10/2024 09:27:00 58.0 Above high normal 18.0-42.0 (%) Final Monocytes/100 leukocytes in Blood by Manual count 01/10/2024 09:27:00 5.0 1.0-11.0 (%) Final Eosinophils/100 leukocytes in Blood by Manual count 01/10/2024 09:27:00 5.0 0.0-6.0 (%) Final Metamyelocytes/100 leukocytes in Blood by Manual count 01/10/2024 09:27:00 6.0 Above high normal <=0.0 (%) Final Blasts/100 leukocytes in Blood by Manual count 01/10/2024 09:27:00 2.0 Above high normal <=0.0 (%) Final Neutrophils [#/volume] in Blood by Manual count 01/10/2024 09:27:00 1.54 Below low normal 1.80-7.70 (K/uL) Final Lymphocytes [#/volume] in Blood by Manual count 01/10/2024 09:27:00 3.72 1.00-4.80 (K/uL) Final Monocytes [#/volume] in Blood by Manual count 01/10/2024 09:27:00 0.32 0.00-1.10 (K/uL) Final Eosinophils [#/volume] in Blood by Manual count 01/10/2024 09:27:00 0.32 0.00-0.70 (K/uL) Final Metamyelocytes [#/volume] in Blood by Manual count 01/10/2024 09:27:00 0.39 Above high normal <=0.00 (K/uL) Final Blasts [#/volume] in Blood by Manual count 01/10/2024 09:27:00 0.13 Above high normal <=0.00 (K/uL) Final Neutrophils.agranular [Presence] in Blood by Light microscopy 01/10/2024 09:27:00 Present Abnormal None Seen Final Smudge cells [Presence] in Blood by Light microscopy 01/10/2024 09:27:00 Present Abnormal None Seen Final Neutrophils.vacuolated [Presence] in Blood by Light microscopy 01/10/2024 09:27:00 Present Abnormal None Seen Final Performing Location [facility] [place] [address] [facility] [address]
--- OUTSIDE RECORDS SUMMARY | 2024-02-26 04:34 | External Medical Summary ---
Author Name Unknown Address Unknown Organization K01:[facility] [place] [address] [place] [address] Laboratory Report Ordering Provider Test Date Status ANN MUNGUIA 01/24/2024 08:47:00 Final Observation Date Value Abnormality Reference (Units ) Status WBC, Total 01/24/2024 08:47:00 6.83 4.00-10.80 (K/uL) Final RBC 01/24/2024 08:47:00 2.11 3.85-5.15 (M/uL) Final Hemoglobin 01/24/2024 08:47:00 9.0 Below low normal 12.0-15.3 (g/dL) Final HCT 01/24/2024 08:47:00 25.6 Below low normal 36.0-45.2 (%) Final MCV 01/24/2024 08:47:00 121.3 81.5-97.5 (fL) Final MCH 01/24/2024 08:47:00 42.7 27.0-34.0 (pg) Final MCHC 01/24/2024 08:47:00 35.2 32.0-36.0 (g/dL) Final RDW 01/24/2024 08:47:00 14.2 11.5-15.5 (%) Final Platelets 01/24/2024 08:47:00 12 Below lower panic limits 140-400 (K/uL) Final MPV 01/24/2024 08:47:00 10.7 6.6-11.1 (fL) Final Nucleated erythrocytes/100 leukocytes [Ratio] in Blood by Automated count 01/24/2024 08:47:00 0 <=0 (/100 WBCs) Final Performing Location [facility] [place] [address] [place] [address]
--- OUTSIDE RECORDS SUMMARY | 2024-02-26 04:34 | External Medical Summary ---
Author Name Unknown Address Unknown Organization K01[facility] [address] [facility] [place] [address] Laboratory Report Ordering Provider Test Date Status ANN MUNGUIA 01/03/2024 08:37:00 Final Observation Date Value Abnormality Reference (Units ) Status SYNC LEUKOCYTES IN BLOOD BY AUTOMATED COUNT 01/03/2024 08:37:00 6.51 4.00-10.80 (K/uL) Final Neutrophils/100 leukocytes in Blood by Manual count 01/03/2024 08:37:00 37.0 Below low normal 40.0-75.0 (%) Final Lymphocytes/100 leukocytes in Blood by Manual count 01/03/2024 08:37:00 48.0 Above high normal 18.0-42.0 (%) Final Monocytes/100 leukocytes in Blood by Manual count 01/03/2024 08:37:00 10.0 1.0-11.0 (%) Final Eosinophils/100 leukocytes in Blood by Manual count 01/03/2024 08:37:00 2.0 0.0-6.0 (%) Final Myelocytes/100 leukocytes in Blood by Manual count 01/03/2024 08:37:00 1.0 Above high normal <=0.0 (%) Final Blasts/100 leukocytes in Blood by Manual count 01/03/2024 08:37:00 2.0 Above high normal <=0.0 (%) Final Neutrophils [#/volume] in Blood by Manual count 01/03/2024 08:37:00 2.41 1.80-7.70 (K/uL) Final Lymphocytes [#/volume] in Blood by Manual count 01/03/2024 08:37:00 3.12 1.00-4.80 (K/uL) Final Monocytes [#/volume] in Blood by Manual count 01/03/2024 08:37:00 0.65 0.00-1.10 (K/uL) Final Eosinophils [#/volume] in Blood by Manual count 01/03/2024 08:37:00 0.13 0.00-0.70 (K/uL) Final Myelocytes [#/volume] in Blood by Manual count 01/03/2024 08:37:00 0.07 Above high normal <=0.00 (K/uL) Final Blasts [#/volume] in Blood by Manual count 01/03/2024 08:37:00 0.13 Above high normal <=0.00 (K/uL) Final Dohle body [Presence] in Blood by Light microscopy 01/03/2024 08:37:00 Present Abnormal None Seen Final Neutrophils.agranular [Presence] in Blood by Light microscopy 01/03/2024 08:37:00 Present Abnormal None Seen Final Variant lymphocytes [Presence] in Blood by Light microscopy 01/03/2024 08:37:00 Present Abnormal None Seen Final Neutrophils.vacuolate d [Presence] in Blood by Light microscopy 01/03/2024 08:37:00 Present Abnormal None Seen Final Performing Location [facility] [place] [address] [facility] [address]
--- OUTSIDE RECORDS SUMMARY | 2024-02-26 04:34 | External Medical Summary | Summary of Care ---
Author Name Unknown Organization [facility] Address [address] [place] [address] Phone [phone] Care Team Providers Care Kettle Worker Name Role Phone Dhruv Moss MD Primary Care Provide r Reason for Visit * Reason Onset Date Comments Advice 01/24/2024 Laci Encounter Details Date Type Department Care Team (Late st Contact Info) Description 01/24/2024 Telephone Hematology/Oncology [facility] [place] [address] [facility] [place] [phone] Jitendra Aguero MD [address] [place] [address] Advice (Laci) Allergies No known active allergiesdocumented [...] for Nausea. 60 Tablet 3 12/09/2021 Active IcineticTouch Delica Lancets 30GIndications:Type 2 diabetes mellitus with hemoglobin A1c goal of less than 8.0% ([facility]) Use to test blood sugar three times a day DXe11.9 300 Each 3 12/16/2021 Active IcineticTouch Verio In Vitro Strip (Glucose Blood)Indications:Ty pe 2 diabetes mellitus with hemoglobin A1c goal of less than 8.0% ([facility]) Use to test blood sugar three times a day DXe11.9 300 Strip 3 12/16/2021 Active IcineticTouch Verio Flex System w/Device Kit Use as directed . 0 12/16/2021 Active Acetaminophen 500 MG Oral Tablet Take 1 Tablet by mouth every 6 hours as needed. 0 Active Nystatin 707492 UNIT/GM External Cream Apply topically to affected [...] s:MDS (myelodysplastic syndrome), high grade ([facility]) Take 1 capsule by mouth twice daily 180 Capsule 2 06/10/2023 Active NovoLIN R 100 UNIT/ML Injection Solution (insulin REGULAR human)Indications:Ty pe 2 diabetes mellitus with hemoglobin A1c goal of less than 8.0% ([facility]) Inject 8 units with breakfast, 4 units with lunch, and 6 units with dinner + sliding scale of 1 units per every 20 over 140 MAX DAILY DOSE 50 units 50 mL 5 07/25/2023 Active Venlafaxine HCl ER 150 MG Oral Capsule Extended Release 24 Hour (Effexor XR)Indications:Recur rent major depressive disorder, in partial remission ([facility]) TAKE ONE CAPSULE BY MOUTH EVERY DAY do not cut, crush, or chew 90 Capsule 0 12/18/2023 Active Isosorbide Mononitrate ER 30 MG Oral Tablet Extended Release 24 Hour (Imdur)Indications:C oronary artery disease involving washoe coronary artery of washoe heart without angina pectoris,HTN, goal below 140/90 [...] grade (HCC),Stem cells transplant status ([facility]),Acquired hypothyroidism 1000 mL IV DAILY PRN 12/08/2021 Active bevaCIZumab (Avastin) inj 1.25 mgIndications: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 Does not have any evidence of [id number] disease Last Assessment & Plan: Continues to [...] -continue venlafaxine Coronary artery disease invo lving washoe coronary artery of washoe heart without angina pectoris 06/12/2017 Overview: S/P EDIL to LAD on 06/12/17 Last Assessment & Plan: No angina - Continue atorvastatin, isosorbide, metoprolol - no ASA due to thrombocytopenia Dyslipidemia, goal LDL below 70 11/25/2011 Last Assessment & Plan: Patient having no issues. She continues on Lipitor 40 mg daily Last lab I will was that I can find were from [id number] Assessment/plan: Dyslipidemia with patient currently taking Lipitor [...] mRNA, LNP-s, No Pre serve, 2-Dose Series (Quincus) 02/05/2021,01/08/2021 COVID-19, LNP-s, No Preserve , Ye-sucrose, [...] Telephone Encounter - Winsome Chang RN - 01/24/2024 11:55 AM EDT Called Juanita- she is in a bad service area, would like us to call back in 5 minutes. Called lab client services- specimen just got to [facility], would still need to be couriered to another facility to be run, unsure if the burning plant operator already went there this morning. Called Juanita- [...] Description 01/24/2024 1:00 PM EDT Laboratory Laboratory [facility] [place] [address] [place] [phone] Alejandra, Lab Scenery [address] [place] [address] 01/24/2024 1:15 PM EDT Nurse Only Hematology/Oncology [facility] [place] [address] [place] [phone] Alejandra, Nurse Hem Onc Scenery [address] [facility] [place] [address] 01/26/2024 2:00 PM EDT Immunization/Injecti on Hematology/Oncology Treatment, [place] [address] [place], [place] [phone] Nurse, Med [address] [place] [address] 01/31/2024 10:00 AM EDT [facility] [address] Marisa Pacheco RN [address] [facility] [place] [address] 01/31/2024 10:40 AM EDT Laboratory Lab Mobile Phlebotomy [facility] [address] [place] [address] [facility] [place] Draw [address] [place] [address] 02/07/2024 10:40 AM EDT Laboratory Lab [facility] Phlebotomy [facility] [address] [place] [address] [facility] [place] [address] [place] [address] 02/14/2024 10:40 AM EDT Laboratory Lab [facility] Phlebotomy [facility] [address] [place] [address] [facility] [place] [address] [place] [address] 02/21/2024 10:40 AM EDT Laboratory Lab Mobile Phlebotomy [facility] [address] [place] [address] [facility] [place], [facility] Home Draw [address] [place] [address] 02/27/2024 2:00 PM EDT Office Visit Pharmacy, [address] [place] [address] [place] [address] 03/28/2024 11:00 AM EDT Office Visit Hematology/Oncology [facility] [address] [facility] [place] [phone] Sharon Mejia [facility] [address] [facility] [place] [address] 07/02/2024 1:00 PM EDT Office Visit Family Medicine [address] [place] [phone] Abby Bennett [address] [place] [address] 07/03/2024 1:30 PM EDT Imaging Radiology [address] [place] [address] 12/24/2024 2:30 PM EST Nurse Only Ancillary [address] [place] [address] Cristina, Nurse Annual Wellness [address] [place] [address] [place] [address] 01/13/2025 11:40 AM EST Office Visit Family Medicine [address] [place] [phone] Dhruv Moss MD [address] [place] [address] [place] [address] Scheduled Orders Name Type Priority Associated Diagnoses Orde r Schedule CBC WITH WBC DIFFERENTIAL Lab STAT MDS (myelodysplastic syndrome), high grade (HCC) Expected: 01/24/2024 (Approximate), Expires: 01/23/2025 COMPREHENSIVE METABOLIC PANEL Lab STAT MDS (myelodysplastic syndrome), high grade (HCC) Expected: 01/24/2024 (Approximate), Expires: 01/23/2025 Scheduled Procedures Name Priority Associated [...] D LEVEL ONCE IN A LIFETIME-USE SMARTSET# [id number] Completed 05/11/2015 Zoster Vaccines Completed 10/30/2020, 02/2020, [...] this encounter Medical Devices Implanted Type Area Inspector Clip On Sunglasses Device Identifier Shelf Expiration Date Model / Serial / Lot Port Pwr Mri Isp Profile - [id number] Implanted:Qty: 1 on 07/24/2020 by Akash Castillo MD at OR [facility] Right: Chest CR BARD : PERIPHERAL VASCULAR 04/12/2021 [id number] / / [id number] documented as of this encounter Visit Diagnoses [...] the patient have Health Care Power of Log Getter? No Code Status History Code Status Date Activated Date Inactivated Comments Full Code 07/27/2021 7:04 PM 07/31/2021 5:19 PM This order reflects the patients wishes and were consensually agreed upon. Question Answer Comments Discussion of Advance Directives occurred with: Patient Does the patient have a Living Will? No Does the patient have Health Care Power of Log Getter? No Full Code 07/25/2021 12:43 PM 07/25/2021 11:03 PM Thi s order reflects the patients wishes and were consensually agreed upon. Question Answer Comments Discussion of Advance Directives occurred with: Patient/Family Does the patient have a Living Will? No Does the patient have Health Care Power of Log Getter? No Full Code 06/12/2017 2:29 PM 06/12/2017 10:37 PM This order reflects the patients wishes and were consensually agreed upon. Question Answer Comments Discussion of Advance Directives occurred with: Not Discussed Does the patient have a Living Will? No Does the patient have Health Care Power of Log Getter? No Healthcare Agents on File Name Relationship Healthcare Agent [facility] Communication [facility] Adult Child Health Care Agent Care Teams Kettle Worker Relationship Specialty Start Date End Date Dhruv Moss MD [address] [place] [address] [place] [address] PCP - General Family Medicine 08/27/21 documented as of this encounter
--- OUTSIDE RECORDS SUMMARY | 2024-02-26 04:34 | External Medical Summary ---
Author Name Unknown Address Unknown Organization [facility] [place] [address] Laboratory Report Ordering Provider Test Date Status ANN MUNGUIA 01/24/2024 13:37:50 Final Observation Date Value Abnormality Reference (Units ) Status WBC, Total 01/24/2024 13:37:50 7.24 4.00-10.80 (K/uL) Final RBC 01/24/2024 13:37:50 2.26 3.85-5.15 (M/uL) Final Hemoglobin 01/24/2024 13:37:50 9.2 Below low normal 12.0-15.3 (g/dL) Final HCT 01/24/2024 13:37:50 27.0 Below low normal 36.0-45.2 (%) Final MCV 01/24/2024 13:37:50 119.5 81.5-97.5 (fL) Final MCH 01/24/2024 13:37:50 40.7 27.0-34.0 (pg) Final MCHC 01/24/2024 13:37:50 34.1 32.0-36.0 (g/dL) Final RDW 01/24/2024 13:37:50 13.9 11.5-15.5 (%) Final Platelets 01/24/2024 13:37:50 11 Below lower panic limits 140-400 (K/uL) Final Results rechecked.

Consistent with previous results.
null MPV 01/24/2024 13:37:50 9.4 6.6-11.1 ( fL) Final Performing Location [facility] [place] [address]
--- OUTSIDE RECORDS SUMMARY | 2024-02-26 04:34 | External Medical Summary | Summary of Care ---
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, unspecified whether joint terminal attack controller insulin use (HCC)*; Myelodysplastic syndrome (HCC); Fall, subsequent encounter; Hip pain, right; Chronic pain of right knee; ILD (interstitial lung disease) (HCC); Recurrent major depressive disorder, in partial remission (HCC); Acquired hypothyroidism; Neuropathy due to chemotherapeutic drug (HCC); Thrombocytopenia (HCC); Insulin-requiring or dependent type II diabetes mellitus (HCC); Type 2 diabetes mellitus with hemoglobin A1c goal of less than 8.0% (HCC); Dyslipidemia, goal LDL below 70 Allergies No known active allergiesdocumented as of this encounter (statuses as of 01/02/2024) Medications Medication Sig Dispensed Refills Start Date End Date Status BD Pen Needle Mini U/F 31G X 5 MM (Insulin Pen Needle)Indications: Type 2 diabetes mellitus with hemoglobin A1c goal of less than 8.0% (HCC) Use with xultophy once a day dx e11.9 100 Each 3 1 Active Ondansetron HCl 8 MG Oral TabletIndications:M [...] for Nausea. 60 Tablet 3 2 Active OneTouch Delica Lancets 30GIndications:Type 2 diabetes mellitus with hemoglobin A1c goal of less than 8.0% ([facility]) Use to test blood sugar three times a day DXe11.9 300 Each 3 2 Active OneTouch Verio In Vitro Strip (Glucose Blood)Indications:T ype 2 diabetes mellitus with hemoglobin A1c goal of less than 8.0% ([facility]) Use to test blood sugar three times a day DXe11.9 300 Strip 3 2 Active OneTouch Verio Flex System w/Device Kit Use as directed . 0 2 Active Acetaminophen 500 MG Oral Tablet Take 1 Tablet by mouth every 6 hours as needed. 0 Active Nystatin 966403 UNIT/GM External Cream Apply topically to affected area 2 times a day. Apply to affected area twice a day for 7 days. 45 g 0 3 Active Acyclovir 800 MG Oral Tablet (Zovirax)Indication s:MDS (myelodysplastic syndrome), high grade (HCC) Take 1 Tablet by mouth in the morning and 1 Tablet before bedtime. 60 Tablet 10 3 Active Atorvastatin Calcium 40 MG Oral Tablet (Lipitor)Indication s:Dyslipidemia, goal LDL below 70 TAKE 1 TABLET BY MOUTH IN THE MORNING 90 Tablet 2 3 Active metFORMIN HCl 1000 MG Oral Tablet (Glucophage)Indicat ions:Type 2 diabetes mellitus with hemoglobin A1c goal of less than 8.0% (HCC) TAKE 1 TABLET BY MOUTH TWICE DAILY WITH MORNING AND EVENING MEALS 180 Tablet 1 3 Active Metoprolol Succinate ER 50 MG [...] the morning. 30 Tablet 12 3 Active traMADol HCl 50 MG Oral Tablet (Ultram)Indications :S/P allogeneic bone marrow transplant (HCC) Take 1 Tablet by mouth every 6 hours as needed for Other (pain). 30 Tablet 0 3 Active Premarin 0.625 MG/GM Vaginal Cream (Estrogens Conjugated) Administer 1 g into the vagina at bedtime. As directed. 42.5 g 5 3 Active Polyethylene Glycol 3350 17 GM/SCOOP Oral Powder (Miralax) Take 17 g by mouth in the morning. 0 3 Active Omeprazole 20 MG Oral Capsule [...] 50 units 50 mL 5 3 Active Venlafaxine HCl ER 150 MG Oral Capsule Extended Release 24 Hour (Effexor XR)Indications:Recu rrent major depressive disorder, in partial remission (HCC) TAKE ONE CAPSULE BY MOUTH EVERY DAY do not cut, crush, or chew 90 Capsule 0 4 Active Isosorbide Mononitrate ER 30 MG Oral Tablet Extended Release 24 Hour (Imdur)Indications: Coronary artery disease involving [place] coronary artery of [place] heart without angina pectoris,HTN, goal below 140/90 TAKE 1 TABLET BY MOUTH IN THE MORNING 90 Tablet 0 4 Active Levothyroxine Sodium 75 MCG Oral Tablet (Levoxyl)Indication s:Postoperative hypothyroidism TAKE ONE TABLET BY MOUTH daily first thing in the morning at least 30 minutes prior to breakfast or other meds 30 Tablet 0 4 Active Levemir 100 UNIT/ML Subcutaneous Solution (insulin Detemir)Indications :Type 2 diabetes mellitus with hemoglobin A1c goal of less than 8.0% (HCC) Inject 20 Units under the skin in the morning. 0 4 Active Cholecalciferol (VITAMIN D3) 5000 UNITS TabletIndications:s upplement Take 1 Tablet by mouth in the morning. 0 5 01/02/20 24 Discontinued Magnesium 100 MG Oral TabletIndications:s upplement Take 1 Tablet by mouth in the morning. Pt states every 3 days. 0 01/02/20 24 Discontinued Amoxicillin-Pot Clavulanate 875-125 MG Oral Tablet (Augmentin) Take 1 Tablet by mouth in the morning and 1 Tablet before bedtime. 0 3 01/02/20 24 Discontinued Levemir 100 UNIT/ML Subcutaneous Solution (insulin Detemir)Indications :Type 2 diabetes mellitus with hemoglobin A1c goal of less than 8.0% (HCC) Inject 18 Units under the skin at bedtime. 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 Date of Transplant: 09/01/2021 Conditioning Regimen: Fludarabine / Busulfan 2 with post-transplant Cytoxan ABO/Rh: A Positive CMV status: CMV Positive--- GRID: [id number] / DID: [id number] Matched Unrelated 10/24--- DPB1 Match ABO/Rh: A [...] Thrombocytopenia 12/06/2022 Last Assessment & Plan: Platelets [id number] on 05/08 Questionable hematuria Urinary incontinence 09/12/2022 History of [...] failure. Does not have any evidence of [id number] disease Last Assessment & Plan: Continues to [...] -continue venlafaxine Coronary artery disease invo lving [place] coronary artery of [place] heart without angina pectoris 06/12/2017 Overview: S/P EDIL to LAD on 06/12/17 Last Assessment & Plan: No angina - Continue atorvastatin, isosorbide, metoprolol - no ASA due to thrombocytopenia Dyslipidemia, goal LDL below 70 11/25/2011 Last Assessment & Plan: Patient having no issues. She continues on Lipitor 40 mg daily Last lab I will was that I can find were from [phone] Assessment/plan: Dyslipidemia with patient currently taking Lipitor [...] as of this encounter (statuses as of 01/02/2024) Resolved Problems Problem Noted Date Diagnosed Date [...] as of this encounter (statuses as of 01/02/2024) Immunizations Name Administration Dates Next Due COVID-19 [...] Sign Reading Time Taken Comments Blood Pressure 98/56 01/02/2024 2:17 PM EST Pulse 80 01/02/2024 2:17 PM EST Temperature 36.1 C (97 F) 01/02/2024 2:17 PM EST Respiratory Rate - - Oxygen Saturation 96% 01/02/2024 2:17 PM EST Inhaled Oxygen Concentration - - Weight 76.2 kg (168 lb) 01/02/2024 2:17 PM EST Height - - Body Mass Index 27.12 12/22/2023 3:34 PM EST documented in this [...] as of this encounter Progress Notes * Dhruv Moss MD - 01/02/2024 2:26 PM EST Subjective: Ruth Burger is a 73 year old female. Chief Complaint Patient presents with Re-Check HPI: Brief Clinical History Ms. Burger is a 73 year old woman last seen in Family Medicine 6 months ago (06-05-23). She is due for eval of MDS (myelodysplastic syndrome), high grade (HCC) and Myelodysplastic syndrome (HCC). Has been having a lot of right knee and thigh pain. Seems to be centered around the knee and radiates up right right and to the lateral hip. She did have a fall with right hip fracture s/p nail 04/2023. Is following with Dr. Gaspar. Previous x-rays showed severe right knee replacement. Did have florentin in her knee last time she saw him. Has had 3 falls since she had the hip repaired. Tends to turn too fast and loses her balance and falls. Does have more pain since the falls. Follows with hematology for myelodysplasia. Not on current treatment. Platelets running around 15-16. No bleeding. Has had stem cell transplant. Having weekly CBC through mobile lab. Following with MTM of diabetes. Is still on Levemir and has quite a bit of it. Feels her sugars were running higher but A1C was OK. No hypoglycemia. Using sliding sale with meals and on metformin. Has not been checking her blood pressure often. No chest pain or shortness of breath. Moods have been stable with venlafaxine. Is being followed by [facility]. Results for orders placed or performed in visit on 12/27/23 LIPID PANEL WITH DIRECT LDL IF TG IS HIGH Result Value Ref Range Triglycerides 373 (H) <=174 mg/dL Cholesterol 166 <200 mg/dL HDL Cholesterol 38 (L) >49 mg/dL Non-HDL Cholesterol 128 <=159 mg/dL CBC Result Value Ref Range WBC 5.61 4.00 - 10.80 K/uL RBC 2.29 3.85 - 5.15 M/uL HGB 9.3 (L) 12.0 - 15.3 g/dL HCT 27.7 (L) 36.0 - 45.2 % MCV 121.0 81.5 - 97.5 fL MCH 40.6 27.0 - 34.0 pg MCHC 33.6 32.0 - 36.0 g/dL RDW 13.6 11.5 - 15.5 % PLT 13 (LL) 140 - 400 K/uL MPV 10.9 6.6 - 11.1 fL DIFFERENTIAL, AUTOMATED Result Value Ref Range WBC 5.61 4.00 - 10.80 K/uL Monocytes % 4.9 1.0 - 11.0 % Absolute Monocytes 0.27 0.00 - 1.10 K/uL DIFFERENTIAL, TECHNOLOGIST REVIEW Result Value Ref Range nRBCs LDL CHOLESTEROL (DIRECT MEASURE) Result Value Ref Range LDL Cholesterol (Direct Measure) 68 <=129 mg/dL *Note: Due to a large number of results and/or encounters for the requested time period, some results have not been displayed. A complete set of results can be found in Results Review. Hemoglobin AIC Results: Lab Results Component Value Date/Time HEMOGLOBIN A1C - [facility] 7.6 (H) 11/20/2023 01:19 PM HEMOGLOBIN A1C - [facility] 8.0 (H) 12/06/2022 12:02 PM HEMOGLOBIN A1C - [facility] 7.4 (H) 08/30/2022 09:40 AM HEMOGLOBIN A1C - [facility] 6.1 (H) 10/01/2020 03:24 PM HEMOGLOBIN A1C - [facility] 8.1 (H) 02/05/2020 10:48 AM HEMOGLOBIN A1C - [facility] 7.9 (H) 10/28/2019 12:42 PM Basic Panel Results: Results for orders placed or performed in visit on 04/28/23 BASIC METABOLIC PANEL Result Value Ref Range BUN 19 6 - 20 mg/dL Creatinine 0.8 0.5 - 1.0 mg/dL Estimated Glomerular Filtration Rate 76 >=60 mL/min Sodium 137 135 - 146 mmol/L Potassium 3.8 3.5 - 5.1 mmol/L Chloride 101 98 - 107 mmol/L CO2 24 22 - 32 mmol/L Anion Gap 12 7 - 15 mmol/L Glucose 197 (H) 70 - 120 mg/dL Calcium 9.2 8.4 - 10.2 mg/dL Lab Results Component Value Date/Time TSH - [facility] 2.60 12/06/2022 12:02 PM TSH - [facility] 7.34 (H) 09/12/2022 10:09 AM TSH - [facility] 3.60 03/08/2022 10:13 AM TSH - [facility] 6.85 (H) 10/30/2020 09:28 AM TSH - [facility] 2.41 02/05/2020 10:48 AM TSH - [facility] 2.19 05/09/2019 09:03 AM PHM: Patient Active Problem List Diagnosis Code Acquired hypothyroidism E03.9 Generalized osteoarthritis of multiple sites M15.9 Type 2 diabetes mellitus with hemoglobin A1c goal of less than 8.0% ([facility]) E11.9 Dyslipidemia, goal LDL below 70 E78.5 HTN, goal below 140/90 I10 Coronary artery disease involving [place] coronary artery of [place] heart without angina pectoris I25.10 Insulin-requiring or dependent type II diabetes mellitus ([facility]) E11.9, Z79.4 Recurrent major depressive disorder, in partial remission ([facility]) F33.41 Microalbuminuria due to type 2 diabetes mellitus ([facility]) E11.29, R80.9 MDS (myelodysplastic syndrome), high grade ([facility]) D46.Z Iron overload, transfusional E83.111 Gastro-esophageal reflux disease without esophagitis K21.9 Stem cells transplant status ([facility]) Z94.84 Hypomagnesemia E83.42 H/O allogeneic bone marrow transplant ([facility]) Z94.81 Dehydration E86.0 Neuropathy due to chemotherapeutic drug ([facility]) G62.0, T45.1X5A Type 2 diabetes mellitus with retinopathy without macular edema ([facility]) E11.319 ACP (advance care planning) Z71.89 History of immunosuppression therapy Z92.25 Urinary incontinence R32 Myelodysplastic syndrome ([facility]) D46.9 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 60 Tablet 3 [facility] Lancets 30G Use to test blood sugar three times a day DXe11.9 300 Each 3 OneTouch Verio In Vitro Strip (Glucose Blood) Use to test blood sugar three times a day DXe11.9 300Strip 3 [facility] Ver[facility] Flex System w/Device Kit Use as directed . Acetaminophen 500 MG Oral Tablet Take 1 Tablet by mouth every 6 hours as needed. Nystatin 793042 UNIT/GM External Cream Apply topically to affected [...] needed for Other (pain). 30 Tablet 0 Polyethylene Glycol 3350 17 GM/SCOOP Oral Powder [...] Units under the skin in the morning. Premarin 0.625 MG/GM Vaginal Cream (Estrogens Conjugated) Administer 1 g into the vagina at bedtime. As directed. 42.5 g 5 Current Facility-Administered Medications Medication Dose Route Frequency [...] Usama Torres MD 1.5 mg at 307 Past Medical History: Diagnosis Date Hager's palsy [...] performed by Robyn Bynum MD at ENDOSCOPY [facility] DILATION AND CURETTAGE (D&C) x 2 EGD, FLEXIBLE, DIAGNOSTIC N/A 10/22/2021 ESOPHAGOGASTRODUODENOSCOPY (EGD), FLEXIBLE, TRANSORAL, DIAGNOSTIC performed by Tom Rivera MD atENDOSCOPY [facility] [place] [place] INFORMATION Bilateral AVASTIN CONSENT OU SIGNED; DR [...] performed by Akash Castillo MD at OR [facility] IR BIOPSY 08/30/2022 IR BIOPSY 03/20/2023 IR VENOUS ACCESS NON-MEDIPORT 07/23/2021 IR VENOUS ACCESS NON-MEDIPORT 09/21/2021 LIGATE/CUT OVIDUCT(S) MAMMOGRAM SCREENING BILATERAL Bilateral 06/29/2023 scattered fibroglandular densities, category 2 repeat 1 year MISCELLANEOUS ORDER ([facility] ONLY) ACT 112 FORM SIGNED; DR. TORRES (07/17/2020) MISCELLANEOUS ORDER ([facility] ONLY) Left Eylea OS Consent signed, 11/27/2020-11/27/2021 OTHER (INFORMATION) Bilateral AVASTIN OU CONSENT DR. DAMON/MELISSA EXP. 05/12/24 PARTIAL HYSTERECTOMY 2009 has right ovary--pelvic pain REMOVE GALLBLADDER open REPAIR HIP FRACTURE(S), W/FIXATION Right 04/13/2023 Right cephalomedullary nail--Dr. Gaspar SPINAL FUSION, LUMBAR, COMBINED 2012 Dr. Kelley Social History Socioeconomic History Marital status: Spouse [...] on file Housing Stability: Not on file Review of patient's allergies indicates: No Known Allergies Objective: BP 98/56 | Pulse 80 | Temp 36.1 C (97 F) (Tympanic) | Wt 76.2 kg (168 lb) | LMP 10/29/2000 | SpO2 96% | BMI 27.12 kg/m | BSA 1.88 m Physical Exam: General: alert, no distress, well nourished, and well developed Head: Normocephalic, No masses, lesions, tenderness or abnormalities Eye Exam: PERRLA, extraocular movements intact, conjunctiva are pink and non- injected, sclera clear Ears: External ears normal, Canals clear, TM's Normal Nose: no mucosal erythema, no mucosal edema, no purulent discharge Oropharynx: no exudate, no erythema, lips, buccal mucosa, and tongue normal, and mucous membranes are moist Neck: supple, no adenopathy, no bruits Heart: regular rate & rhythm, no murmur, and no gallops Lungs: chest symmetric with normal AP diameter, no chest deformities noted, no chest wall tenderness, lungs clear to auscultation Extremities: no edema, no clubbing, no cyanosis, +arthritic deformities of bilateral knees. +medialjoint line tenderness to palpation. +tenderness over lateral right hip area Neuro Exam: alert & oriented x 3 with fluent speech, no focal motor/sensory deficits, ambulateswith cane Extensive ROS Constitutional (f/c/wt/vision/hearing): Negative Resp (cough/sob/mcdaniels): Negative CV (cp/palp/fluttering/diaphoresis/mcdaniels/pnd):see above hpi GI (n/v/d/hrtburn): GERD controlled with PPI Endo (hair/cold or heat intol/ 3 p's): see above hpi Neuro (shaking/weak/fatigu/parasthesi/): +neuropathy from chemotherapy Skin (rash/easy bruis/xerosis): Negative Psy (si/hi/halluc/): see above hpi (nocturia/hesit/drib/sexual review): +OAB on Vesicare and Myrbetriq. 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 Blood sugars improved. Is on Levemir, novolog with meals, and metformin. Also following with MTM. Myelodysplastic syndrome (HCC)--s/p stem cell transplant. Follows with hematology. Platelets have been running 15-16. Avoid antiplatelet agents. Fall, subsequent encounter--check x-rays due to fall with increased right hip and knee pain. Has h/o hip fracture 04/2023 s/p nail. - XR HIP UNILAT 2-3 VIEWS INCLUDING AP PELVIS - XR KNEE 4 OR MORE VIEWS Hip pain, right - XR HIP UNILAT 2-3 VIEWS INCLUDING AP PELVIS Chronic pain of right knee - XR KNEE 4 OR MORE VIEWS ILD (interstitial lung disease) (HCC)--stable. No current breathing issues. Recurrent major depressive disorder, in partial remission (HCC) Acquired hypothyroidism - TSH WITH FREE T4 IF INDICATED; Future; Expected date: 01/02/2024 Neuropathy due to chemotherapeutic drug (HCC)--stable. Thrombocytopenia (HCC)--monitored by hematology. Platelets remain critically low. No bleeding episodes. Insulin-requiring or dependent type II diabetes mellitus (HCC)--sugars improved as above. Type 2 diabetes mellitus with hemoglobin A1c goal of less than 8.0% (HCC)--sugars improved. Continue basal-bolus insulin, metformin and MTM. Dyslipidemia, goal LDL below 70 Follow Up: Return in about 6 months (around 07/02/2024) for Clinic Visit. | For: Clinic Visit PLAN: Continue present medication(s): Study(ies) ordered: X-ray of right hip and right knee due to 3 falls with increased right hip and knee pain. She has h/o right hip fracture s/p nail 04/2023. Follows with Dr. Gaspar. Schedule labs: TSH. Can be drawn by mobile lab tomorrow along with her weekly CBC for hematology. Patient education: discussed imaging and follow-up with orthopedics as scheduled. Reviewed blood sugars and blood pressure monitoring. Follow up: in 6 month(s). Dhruv Moss MD documented in this encounter Nursing Notes * Nilda Izaguirre LPN - 01/02/2024 2:17 PM EST 6 month recheck No concerns today documented in this encounter Plan of Treatment Upcoming Encounters Date Type Department Care Team (Late st Contact Info) Description 01/03/2024 10:40 AM EST Laboratory Lab Mobile Phlebotomy [facility] [place] [place] [address] [place] [address] [facility] Home Draw [address] [place] [address] 01/04/2024 3:15 PM EST Office Visit Hematology/Oncology Joanie Roberts [place] [address] [facility] [place] [phone] Jitendra Aguero MD [address] [facility] [place] [address] 01/10/2024 10:40 AM EST Laboratory Lab Mobile Phlebotomy [facility] [address] [place] [address] [facility] Home Draw [address] [place] [address] 01/17/2024 10:40 AM EST Laboratory Lab Mobile Phlebotomy [facility] [address] [place] [address] [facility] Draw [address] [place] [address] 01/24/2024 10:40 AM EDT Laboratory Lab Mobile Phlebotomy [facility] [place] [place] [address] [place] [address] [facility] Draw [address] [place] [address] 01/26/2024 2:00 PM EDT Immunization/Injectio n Hematology/Oncology Treatment, [place] [address] [facility] [place] [phone] Nurse, Med [address] [place] [address] 01/31/2024 10:00 AM EDT Home Visit [facility], [facility] [address] [place] [address] Marisa Pacheco, TANYA [address] [place] [address] 01/31/2024 10:40 AM EDT Laboratory Lab Mobile Phlebotomy [facility] [place] [place] [address] [place] [address] [facility] Draw [address], [place] [phone] 02/07/2024 10:40 AM EDT Laboratory Lab Mobile Phlebotomy [facility] [place] [place] [address] [place], [place] [id number] [facility] Home Draw [address] [place] [address] 02/14/2024 10:40 AM EDT Laboratory Lab Mobile Phlebotomy [facility] [place] [place] [address] [place] [address] [facility] [place] Home Draw [address] [place] [address] 02/21/2024 10:40 AM EDT Laboratory Lab Mobile Phlebotomy [facility] [place] [place] [address] [place] [address] [facility] [place] Home Draw [address] [place] [address] 02/27/2024 2:00 PM EDT Office Visit Pharmacy, [address] [place] [phone] [place] [address] 07/03/2024 1:30 PM EDT Imaging Radiology [address] [place] [address] 12/24/2024 2:30 PM EST Nurse Only Ancillary [address] [place] [address] [place], Nurse Annual [address] [place] [address] Pending Results Name Type Priority Associated Diagnoses Date /Time TSH WITH FREE T4 IF INDICATED Lab Routine Acquired hypothyroidism 01/02/2024 2:49 PM EST XR HIP UNILAT 2-3 VIEWS INCLUDING AP PELVIS Medical Imaging Routine Fall, subsequent encounter Hip pain, right 01/02/2024 3:07 PM EST XR KNEE 4 OR MORE VIEWS Medical Imaging Routine Fall, subsequent encounter Chronic pain of right knee 01/02/2024 3:07 PM EST Scheduled Orders Name Type Priority Associated Diagnoses Orde r Schedule TSH WITH FREE T4 IF INDICATED Lab Routine Acquired hypothyroidism Expected: 01/02/2024 (Approximate), Expires: 01/02/2025 Scheduled Procedures Name Priority Associated Diagnoses Date/Ti me COLONOSCOPY FLEXIBLE PROXIMA L DIAGNOSTIC Recall Encounter for screening colonoscopy Health Maintenance Due Date Last Done Comments COVID-19 Vaccine ( season) 2023 12/06/2021, 02/05/2021, 01/08/2021 Influenza Vaccine (FLU shot) (#1) 2023 07/17/2020, 07/13/2020, 07/25/2019, Additional history exists *BISPHONATE OR OTHER ACCEPTABLE MEDICATION NEEDED FOR OSTEOPOROSIS (REFER TO SMARTSET #1146) 11/06/2023 TSH 12/06/2023 12/06/2022, 08/15, 03/08/2022, Additional history exists COLONOSCOPY-EVERY 5 YRS AGES 18-100 05/06/2024 05/06/2019, 05/06/2019 Diabetic Eye Exam 05/12/2024 05/12/2023, , 05/12/2023, Additional history exists HbA1c 05/20/2024 11/20/2023, 11/14, 08/30/2022, Additional history exists Diabetic Foot Exam 06/05/2024 06/05/2023, 0 06/03/2022, 06/01/2021, Additional history exists GFR 06/07/2024 06/07/2023, 05/13, 05/08/2023, Additional history exists Albumin/Creatinine Ratio 09/15/2024 023, 03/08/2022, 10/29/2019, Additional history exists Depression Screening 12/22/2024 12/22/2023 DXA Scan 06/13/2025 06/13/2023, 0811/2022, 03/16/2015 DTaP,Tdap,and Td Vaccines (3 - Td or Tdap) 11/10/2026 11/10/2016, 03/30/2011 VITAMIN D LEVEL ONCE IN A LIFETIME-USE SMARTSET# [id number] Completed 05/11/2015 Zoster Vaccines Completed 10/30/2020, 0902/2020, 07/13/2020, Additional history exists Pneumococcal Vaccine: 65+ [...] this encounter Medical Devices Implanted Type Area Sales Development Manager Device Identifier Shelf Expiration Date Model / Serial / Lot Port Pwr Mri Isp Profile - [id number] Implanted:Qty: 1 on 07/24/2020 by Akash Castillo MD at OR [facility] Right: Chest CR BARD : PERIPHERAL VASCULAR 04/12/2021 [id number] / / [id number] documented as of this encounter Visit Diagnoses Diagnosis 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, unspecified whether joint terminal attack controller insulin use (HCC)- Primary Myelodysplastic syndrome (HCC) Myelodysplastic syndrome, unspecified Fall, subsequent encounter Hip pain, right Pain in joint, pelvic region and thigh Chronic pain of right knee ILD (interstitial lung disease) (HCC) Postinflammatory pulmonary fibrosis Recurrent major depressive disorder, in partial remission (HCC) Acquired hypothyroidism Unspecified hypothyroidism 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 Question Answer Comments Discussion of Advance Directives occurred with: Patient/Family Does the patient have a Living Will? No Does the patient have Health Care Power of Human Resources Clerk? No Code Status History Code Status Date Activated Date Inactivated Comments Full Code 07/27/2021 7:04 PM 07/31/2021 5:19 PM This order reflects the patients wishes and were consensually agreed upon. Question Answer Comments Discussion of Advance Directives occurred with: Patient Does the patient have a Living Will? No Does the patient have Health Care Power of Human Resources Clerk? No Full Code 07/25/2021 12:43 PM 07/25/2021 11:03 PM Thi s order reflects the patients wishes and were consensually agreed upon. Question Answer Comments Discussion of Advance Directives occurred with: Patient/Family Does the patient have a Living Will? No Does the patient have Health Care Power of Human Resources Clerk? No Full Code 06/12/2017 2:29 PM 06/12/2017 10:37 PM This order reflects the patients wishes and were consensually agreed upon. Question Answer Comments Discussion of Advance Directives occurred with: Not Discussed Does the patient have a Living Will? No Does the patient have Health Care Power of Human Resources Clerk? 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
--- OUTSIDE RECORDS SUMMARY | 2024-02-26 04:34 | External Medical Summary | Summary of Care ---
Author Name Unknown Organization [facility] Address [address] [place] [address] Phone [phone] Care Team Providers Care Offshoring Manager Name Role Phone Dhruv Moss MD Primary Care Provide r Reason for Visit * Reason Onset Date Comments Medication Refill 01/17/2024 Encounter Details Date Type Department Care Team (Late st Contact Info) Description 01/17/2024 Refill Family Medicine [address] [phone] Dhruv Moss MD [address] [place] [address] [place] [id number] Type 2 diabetes mellitus with hemoglobin A1c goal of less than 8.0% ([facility]) Allergies No known active allergiesdocumented as of this encounter (statuses as of 01/17/2024) Medications Medication Sig Dispensed Refills Start Date [...] for Nausea. 60 Tablet 3 12/09/2021 Active MafengwoTouch Delica Lancets 30GIndications:Type 2 diabetes mellitus with hemoglobin A1c goal of less than 8.0% ([facility]) Use to test blood sugar three times a day DXe11.9 300 Each 3 12/16/2021 Active MafengwoTouch Verio In Vitro Strip (Glucose Blood)Indications:T ype 2 diabetes mellitus with hemoglobin A1c goal of less than 8.0% ([facility]) Use to test blood sugar three times a day DXe11.9 300 Strip 3 12/16/2021 Active MafengwoTouch Verio Flex System w/Device Kit Use as directed . 0 12/16/2021 Active Acetaminophen 500 MG Oral Tablet Take 1 Tablet by mouth every 6 hours as needed. 0 Active Nystatin 000903 UNIT/GM External Cream Apply topically to affected [...] Release (PriLOSEC)Indicatio ns:MDS (myelodysplastic syndrome), high grade ([facility]) Take 1 capsule by mouth twice daily 180 Capsule 2 06/10/2023 Active NovoLIN R 100 UNIT/ML Injection Solution (insulin REGULAR human)Indications:T ype 2 diabetes mellitus with hemoglobin A1c goal of less than 8.0% ([facility]) Inject 8 units with breakfast, 4 units with lunch, and 6 units with dinner + sliding scale of 1 units per every 20 over 140 MAX DAILY DOSE 50 units 50 mL 5 07/25/2023 Active Venlafaxine HCl ER 150 MG Oral Capsule Extended Release 24 Hour (Effexor XR)Indications:Recu rrent major depressive disorder, in partial remission ([facility]) TAKE ONE CAPSULE BY MOUTH EVERY DAY do not cut, crush, or chew 90 Capsule 0 12/18/2023 Active Isosorbide Mononitrate ER 30 MG Oral Tablet Extended Release 24 Hour (Imdur)Indications: Coronary artery disease involving [place] coronary artery of [place] heart without angina pectoris,HTN, goal below 140/90 [...] EVENING MEALS 180 Tablet 1 01/17/2024 Active metFORMIN HCl 1000 MG Oral Tablet (Glucophage)Indicat ions:Type 2 diabetes mellitus with hemoglobin A1c goal of less than 8.0% (HCC) TAKE 1 TABLET BY MOUTH TWICE DAILY WITH MORNING AND EVENING MEALS 180 Tablet 1 05/01/2023 01/17/20 24 Discontinu ed(Refill) Hospital, Clinic, or Other Facility Administered Medication Ordered Dose Route Frequency Start Date End Date Status NSS 0.9% 1,000 mL bolus infusionIndications:MDS (myelodysplastic syndrome), high grade (HCC),Stem cells transplant status ([facility]),Acquired hypothyroidism 1000 mL IV DAILY PRN 12/08/2021 Active bevaCIZumab (Avastin) inj 1.25 mgIndications: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 Date of Transplant: 09/01/2021 Conditioning Regimen: Fludarabine / Busulfan 2 with post-transplant Cytoxan ABO/Rh: A Positive CMV status: CMV Positive--- GRID: [id number] / DID: [id number] Matched Unrelated 10/24--- DPB1 Match ABO/Rh: A [...] Thrombocytopenia 12/06/2022 Last Assessment & Plan: Platelets 20005 on 03/20 Questionable hematuria Urinary incontinence 09/12/2022 [...] failure. Does not have any evidence of iuhif-sdjvmz-wasz disease Last Assessment & Plan: Continues to [...] -continue venlafaxine Coronary artery disease invo lving [place] coronary artery of [place] heart without angina pectoris 06/12/2017 Overview: S/P EDIL to LAD on 06/12/17 Last Assessment & Plan: No angina - Continue atorvastatin, isosorbide, metoprolol - no ASA due to thrombocytopenia Dyslipidemia, goal LDL below 70 11/25/2011 Last Assessment & Plan: Patient having no issues. She continues on Lipitor 40 mg daily Last lab I will was that I can find were from [phone] Assessment/plan: Dyslipidemia with patient currently taking Lipitor [...] as of this encounter (statuses as of 01/17/2024) Resolved Problems Problem Noted Date Diagnosed Date [...] as of this encounter (statuses as of 01/17/2024) Immunizations Name Administration Dates Next Due COVID-19 mRNA, LNP-s, No Pre serve, 2-Dose Series ([employer]) 02/05/2021,01/08/2021 COVID-19, LNP-s, No Preserve , Ye-sucrose, [...] encounter Miscellaneous Notes * Telephone Encounter - Dhruv Moss MD - 01/17/2024 11:23 AM EST Signed Prescriptions: Disp Refills metFORMIN HCl 1000 MG Oral Tablet (Glucoph*180 Ta*1 Sig: TAKE 1 TABLET BY MOUTH TWICE DAILY WITH MORNING AND EVENING MEALS Authorizing Provider: DHRUV MOSS * Telephone Encounter - Maya Quinones RN - 01/17/2024 10:27 AM ESTPending Prescriptions: Disp Refills metFORMIN HCl 1000 MG Oral Tablet (Glucoph*180 Ta*1 Sig: TAKE 1 TABLET BY MOUTH TWICE DAILY WITH MORNING AND EVENING MEALS * Telephone Encounter - Aspen Cabrera OSA - 01/17/2024 10:24 AM EST Did you pend patient's preferred pharmacy and medication before forwarding?yes Pharmacy: [id number] [id number] [facility] Pending Prescriptions: Disp Refills metFORMIN HCl 1000 MG Oral Tablet (Glucop*180 Ta*1 Sig: TAKE 1 TABLET BY MOUTH TWICE DAILY WITH MORNING AND EVENING MEALS Last Visit: 01/02/2024 (in office), Visit date not found (telemedicine) Next Visit: 07/02/2024 If no future appointments scheduled, and last appointment is greater than a year ago, please schedule patient for a follow-up appointment Last date the medication was ordered: 05.01.23 Is this request for a controlled substance?No Urine Drug Screen:No results found. However, due to the size of the patient record, not all encounters were searched. Please check Results Review for a complete set of results. Patient Phone Numbers Labs: Lab Results Component Value Date/Time CREAT 0.8 06/07/2023 08:13 AM CREAT 0.7 12/10/2020 12:29 PM POTASSIUM 4.5 06/07/2023 08:13 AM POTASSIUM 4.4 12/10/2020 12:29 PM TSH 5.69 (H) 01/02/2024 02:49 PM TSH 6.85 (H) 10/30/2020 09:28 AM LDLCALC 99 09/12/2022 10:09 AM LDLCALC UNINTERPRETABLE RESULT 05/09/2019 09:06 AM LDLDIRECT 68 12/27/2023 11:00 AM LDLDIRECT 136 (H) 10/01/2020 03:24 PM LDLCHOL 119 (A) 09/26/2011 09:55 AM ALT 30 06/07/2023 08:13 AM ALT 25 12/10/2020 12:29 PM HGBA1C 7.6 (H) 11/20/2023 01:19 PM HGBA1C 6.1 (H) 10/01/2020 03:24 PM documented in this encounter Plan of Treatment Upcoming Encounters Date Type Department Care Team (Late st Contact Info) Description 01/24/2024 10:40 AM EDT Laboratory Lab Mobile Phlebotomy [facility] [address] [place] [address] Gm, Gml Mobile Home Draw [address] [place] [address] 01/26/2024 2:00 PM EDT Immunization/Injecti on Hematology/Oncology Treatment, [place] [address] [place] [phone] Nurse, Med [address] [place] [address] 01/31/2024 10:00 AM EDT Home Visit [facility], [facility] [address] [place] [address] Marisa Pacheco, TAYNA [address] [place] [address] 01/31/2024 10:40 AM EDT Laboratory Lab Mobile Phlebotomy [facility] [address] [place] [address] [facility], Gml Mobile Home Draw [address] [place] [address] 02/07/2024 10:40 AM EDT Laboratory Lab Mobile Phlebotomy [facility] [address] [place] [address] [facility], Gml Mobile Home Draw [address] [place] [address] 02/14/2024 10:40 AM EDT Laboratory Lab Mobile Phlebotomy [facility] [address] [place] [address] [facility], Gml Mobile Home Draw [address] [place] [address] 02/21/2024 10:40 AM EDT Laboratory Lab Mobile Phlebotomy [facility] [address] [place] [address] [facility], [facility] Mobile Home Draw [address] [place] [address] 02/27/2024 2:00 PM EDT Office Visit Pharmacy, [address] [place] [address] [place] [address] 03/28/2024 11:00 AM EDT Office Visit Hematology/Oncology [facility] [place] [address] [facility] [place] [phone] Sharon Mejia CRNP [address] [facility] [place] [address] 07/02/2024 1:00 PM EDT Office Visit Family Medicine [address] [place] [phone] Abby Bennett CRNP [address] [place] [address] [place] [address] 07/03/2024 1:30 PM EDT Imaging Radiology [address] [place] [address] 12/24/2024 2:30 PM EST Nurse Only Ancillary [address] [place] [address] [place], Nurse Annual [address] [place] [address] 01/13/2025 11:40 AM EST Office Visit Family Medicine [address] [place] [phone] Dhruv Moss MD [address] [place] [address] [place] [address] Scheduled Procedures Name Priority Associated Diagnoses Date/Ti [...] Additional history exists DXA Scan 06/13/2025 06/13/2023, 0811/2022, 03/16/2015 DTaP,Tdap,and Td Vaccines (3 - Td or Tdap) 11/10/2026 11/10/2016, 03/30/2011 VITAMIN D LEVEL ONCE IN A LIFETIME-USE SMARTSET# [id number] Completed 05/11/2015 Zoster Vaccines Completed 10/30/2020, 090 [...] this encounter Medical Devices Implanted Type Area Professional Skateboarder Device Identifier Shelf Expiration Date Model / Serial / Lot Port Pwr Mri Isp Profile - [id number] Implanted:Qty: 1 on 07/24/2020 by Akash Castillo MD at OR [facility] Right: Chest CR BARD : PERIPHERAL VASCULAR 04/12/2021 [id number] / / [id number] documented as of this encounter Visit Diagnoses Diagnosis Type 2 diabetes mellitus with hemoglobin A1c goal of less than 8.0% (HCC) documented in this encounter Advance Directives Latest Code Status on File Code Status Date Activated Date Inactivated Comments Full Code 08/27/2021 1:10 PM 09/21/2021 5:49 PM This order reflects the patients wishes and were consensually agreed upon. Question Answer Comments Discussion of Advance Directives occurred with: Patient/Family Does the patient have a Living Will? No Does the patient have Health Care Power of [employer]? No Code Status History Code Status Date Activated Date Inactivated Comments Full Code 07/27/2021 7:04 PM 07/31/2021 5:19 PM This order reflects the patients wishes and were consensually agreed upon. Question Answer Comments Discussion of Advance Directives occurred with: Patient Does the patient have a Living Will? No Does the patient have Health Care Power of [employer]? No Full Code 07/25/2021 12:43 PM 07/25/2021 11:03 PM Thi s order reflects the patients wishes and were consensually agreed upon. Question Answer Comments Discussion of Advance Directives occurred with: Patient/Family Does the patient have a Living Will? No Does the patient have Health Care Power of [employer]? No Full Code 06/12/2017 2:29 PM 06/12/2017 10:37 PM This order reflects the patients wishes and were consensually agreed upon. Question Answer Comments Discussion of Advance Directives occurred with: Not Discussed Does the patient have a Living Will? No Does the patient have Health Care Power of [employer]? No Healthcare Agents on File Name Relationship Healthcare Agent Relationshi p Communication Juanita [place] Adult Child Health Care Agent Care Teams Offshoring Manager Relationship Specialty Start Date End Date Dhruv Moss MD [address] [place] [address] [place] [address] PCP - General Family Medicine 08/27/21 documented as of this encounter
--- OUTSIDE RECORDS SUMMARY | 2024-02-26 04:34 | External Medical Summary | Summary of Care ---
Author Name Unknown Organization [facility] Address [address] [place] [address] Phone [phone] Care Team Providers Care Power Originator Name Role Phone Dhruv Moss MD Primary Care Provide r Reason for Visit * Reason Onset Date Comments Test Results Lab 01/03/2024 Encounter Details Date Type Department Care Team (Late st Contact Info) Description 01/03/2024 Telephone Hematology/Oncology Treatment, [place] [address] [place] [address] Jitendra Aguero MD [address] [place] [address] Test Results Lab Allergies No known active [...] for Nausea. 60 Tablet 3 12/09/2021 Active Play Megaphone Delica Lancets 30GIndications:Type 2 diabetes mellitus with hemoglobin A1c goal of less than 8.0% ([facility]) Use to test blood sugar three times a day DXe11.9 300 Each 3 12/16/2021 Active Play Megaphone VerCoreDial In Vitro Strip (Glucose Blood)Indications:Ty pe 2 diabetes mellitus with hemoglobin A1c goal of less than 8.0% ([facility]) Use to test blood sugar three times a day DXe11.9 300 Strip 3 12/16/2021 Active Play Megaphone Verio Flex System w/Device Kit Use as directed . 0 12/16/2021 Active Acetaminophen 500 MG Oral Tablet Take 1 Tablet by mouth every 6 hours as needed. 0 Active Nystatin 071099 UNIT/GM External Cream Apply topically to affected [...] hemoglobin A1c goal of less than 8.0% ([facility]) TAKE 1 TABLET BY MOUTH TWICE DAILY [...] hemoglobin A1c goal of less than 8.0% ([facility]) Inject 8 units with breakfast, 4 [...] 24 Hour (Imdur)Indications:C oronary artery disease involving [place] coronary artery of [place] heart without angina pectoris,HTN, goal below [...] syndrome), high grade (HCC),Stem cells transplant status (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 Does not have any evidence of fltdt-lxpulo-etdv disease Last Assessment & Plan: Continues to [...] -continue venlafaxine Coronary artery disease invo lving [place] coronary artery of [place] heart without angina pectoris 06/12/2017 Overview: S/P EDIL to LAD on 06/12/17 Last Assessment & Plan: No angina - Continue atorvastatin, isosorbide, metoprolol - no ASA due to thrombocytopenia Dyslipidemia, goal LDL below 70 11/25/2011 Last Assessment & Plan: Patient having no issues. She continues on Lipitor 40 mg daily Last lab I will was that I can find were from [phone] Assessment/plan: Dyslipidemia with patient currently taking Lipitor [...] Telephone Encounter - Winsome Chang RN - 01/03/2024 2:25 PM EST Called patient, she verbalized understanding. Has an appt with Dr Aguero tomorrow. * Telephone Encounter - Winsome Chang RN - 01/03/2024 2:23 PM EST ----- Message from Jitendra Aguero MD sent at 01/03/2024 6:54 AM EST ----- Blood workup done on 01/02/2024: -WBC 8200, H&H of 10/29.4[place] [address] Overall stable blood test, no need for blood or Platelet transfusion Repeat CBCD in 1 week. documented in this encounter Plan of Treatment Upcoming Encounters Date Type Department Care Team (Late st Contact Info) Description 01/04/2024 3:15 PM EST Office Visit Hematology/Oncology [facility] [place] [address] [facility] [place] [phone] Jitendra Aguero MD [address] [facility] [place] [address] 01/10/2024 10:40 AM EST Laboratory Lab Mobile Phlebotomy [facility] [address] [place] [address] [facility] Mobile Home Draw [address] [place] [address] 01/17/2024 10:40 AM EST Laboratory Lab Mobile Phle[facility] [address] [place] [address] [facility] Mobile Home Draw [address] [place] [address] 01/24/2024 10:40 AM EDT Laboratory Lab Mobile Ph[facility]botomy [facility] [address] [place] [address] [facility] Mobile Home Draw [address] [place] [address] 01/26/2024 2:00 PM EDT Immunization/Injectio n Hematology/Oncology Treatment, [place] [address] [place] [address] Nurse, Med [address] [place] [address] 01/31/2024 10:00 AM EDT [facility] Visit [facility], [facility] [address] [place] [address] Marisa Pacheco, TANYA [address] [place] [address] 01/31/2024 10:40 AM EDT Laboratory Lab Mobile Phlebotomy [facility] [address] [place] [address] [facility] Mobile Home Draw [address] [place] [address] 02/07/2024 10:40 AM EDT Laboratory Lab Mobile Phlebot[facility] [address] [place] [address] [facility] Mobile Home Draw [address] [place] [address] 02/14/2024 10:40 AM EDT Laboratory Lab Mobile Phlebotomy [facility] [address] [place] [address] [facility] Mobile Home Draw [address] [place] [address] 02/21/2024 10:40 AM EDT Laboratory Lab Mobile Phlebotomy [facility] [address] [place] [address] [facility] Mobile Home Draw [address] [place] [address] 02/27/2024 2:00 PM EDT Office Visit Pharmacy, [address] [place] [address] [place] [address] 07/02/2024 1:00 PM EDT Office Visit [address] [place] [phone] Abby Bennett CRNP [address] [place] [address] [place] [address] 07/03/2024 1:30 PM EDT Imaging Radiology [address] [place] [address] 12/24/2024 2:30 PM EST Nurse Only Ancillary [address] [place] [address] Cristina, Nurse Annual Wellness [address] [place] [address] [place] [address] 01/13/2025 11:40 AM EST Office Visit Family [address] [place] [phone] Dhruv Moss MD [address] [place] [address] [place] [address] Scheduled Procedures Name Priority Associated Diagnoses Date/Ti [...] D LEVEL ONCE IN A LIFETIME-USE SMARTSET# 94879 Completed 05/11/2015 Zoster Vaccines Completed 10/30/2020, 02/2020, [...] this encounter Medical Devices Implanted Type Area Ed Teacher Device Identifier Shelf Expiration Date Model / Serial / Lot Port Pwr Mri Isp Profile - [id number] Implanted:Qty: 1 on 07/24/2020 by Akash Castillo MD at OR [facility] Right: Chest CR BARD : PERIPHERAL VASCULAR 04/12/2021 [id number] / / [id number] documented as of this encounter Advance Directives [...] the patient have Health Care Power of Podopediatrician? No Code Status History Code Status Date Activated Date Inactivated Comments Full Code 07/27/2021 7:04 PM 07/31/2021 5:19 PM This order reflects the patients wishes and were consensually agreed upon. Question Answer Comments Discussion of Advance Directives occurred with: Patient Does the patient have a Living Will? No Does the patient have Health Care Power of Podopediatrician? No Full Code 07/25/2021 12:43 PM 07/25/2021 11:03 PM Thi s order reflects the patients wishes and were consensually agreed upon. Question Answer Comments Discussion of Advance Directives occurred with: Patient/Family Does the patient have a Living Will? No Does the patient have Health Care Power of Podopediatrician? No Full Code 06/12/2017 2:29 PM 06/12/2017 10:37 PM This order reflects the patients wishes and were consensually agreed upon. Question Answer Comments Discussion of Advance Directives occurred with: Not Discussed Does the patient have a Living Will? No Does the patient have Health Care Power of Podopediatrician? No Healthcare Agents on File Name Relationship [facility] Juanita Silva Adult Child Health Care Agent Care Teams Power Originator Relationship Specialty Start Date End Date Dhruv Moss MD [address] [place] [address] [place] [address] PCP - General Family Medicine 08/27/21 documented as of this encounter
--- OUTSIDE RECORDS SUMMARY | 2024-02-26 04:35 | External Medical Summary | Summary of Care ---
Author Name Unknown Organization [facility] Address [address] [place] [facility] [place] [address] Phone [phone] Care Team Providers Care Compliance Engineer Products Name Role Phone Dhruv Moss MD Primary Care Provide r Reason for Visit * Reason Comments Dosage Adjustment In Person (Anticoag Cl inic) Diabetes Follow-Up Encounter Details Date Type Department Care Team (Late st Contact Info) Description 01/02/2024 1:40 PM EST Office Visit Pharmacy, [address] [place] [address] [place] [address] Type 2 diabetes mellitus with hemoglobin A1c goal of less than 8.0% ([facility])* Allergies No known active allergiesdocumented as of [...] for Nausea. 60 Tablet 3 2 Active Duos TechnologiesTouch Delica Lancets 30GIndications:Type 2 diabetes mellitus with hemoglobin A1c goal of less than 8.0% ([facility]) Use to test blood sugar three times a day DXe11.9 300 Each 3 2 Active OneTouch Verio In Vitro Strip (Glucose Blood)Indications:T ype 2 diabetes mellitus with hemoglobin A1c goal of less than 8.0% ([facility]) Use to test blood sugar three times a day DXe11.9 300 Strip 3 2 Active Duos TechnologiesTouch Verio Flex System w/Device Kit Use as directed . 0 2 Active Acetaminophen 500 MG Oral Tablet Take 1 Tablet by mouth every 6 hours as needed. 0 Active Nystatin 826703 UNIT/GM External Cream Apply topically to affected [...] twice daily 180 Capsule 2 3 Active Levemir 100 UNIT/ML Subcutaneous Solution (insulin Detemir)Indications :Type 2 diabetes mellitus with hemoglobin A1c goal of less than 8.0% (HCC) Inject 18 Units under the skin at bedtime. 30 mL 3 3 Active Additional Information Patient taking differently: 20 UnitsSubcutaneousDaily(AM), Reported on 12/22/2023 NovoLIN R 100 UNIT/ML Injection Solution (insulin [...] Hour (Imdur)Indications: Coronary artery disease involving [place] coronary artery of [place] heart without angina pectoris,HTN, goal below 140/90 TAKE 1 TABLET BY MOUTH IN THE MORNING 90 Tablet 0 4 Active Levothyroxine Sodium 75 MCG Oral Tablet (Levoxyl)Indication s:Postoperative hypothyroidism TAKE ONE TABLET BY MOUTH daily first thing in the morning at least 30 minutes prior to breakfast or other meds 30 Tablet 0 4 Active Cholecalciferol (VITAMIN D3) 5000 [...] before bedtime. 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 Date of Transplant: 09/01/2021 Conditioning Regimen: Fludarabine / Busulfan 2 with post-transplant Cytoxan ABO/Rh: A Positive CMV status: CMV Positive--- GRID: [id number] / DID: [id number] Matched Unrelated 10/24--- DPB1 Match ABO/Rh: A [...] Thrombocytopenia 12/06/2022 Last Assessment & Plan: Platelets 90406 on 03/20 Questionable hematuria Urinary incontinence 09/12/2022 [...] failure. Does not have any evidence of gsajd-gnsosk-qnqb disease Last Assessment & Plan: Continues to [...] venlafaxine Coronary artery disease invo lving [place] coronary artery of [place] heart without angina pectoris 06/12/2017 Overview: S/P EDIL to LAD on 06/12/17 Last Assessment & Plan: No angina - Continue atorvastatin, isosorbide, metoprolol - no ASA due to thrombocytopenia Dyslipidemia, goal LDL below 70 11/25/2011 Last Assessment & Plan: Patient having no issues. She continues on Lipitor 40 mg daily Last lab I will was that I can find were from [phone] Assessment/plan: Dyslipidemia with patient currently taking Lipitor [...] mRNA, LNP-s, No Pre serve, 2-Dose Series (BioSeek) 02/05/2021,01/08/2021 COVID-19, LNP-s, No Preserve , Ye-sucrose, [...] as of this encounter Progress Notes * Makenzie Pool, [facility] - 01/02/2024 1:44 PM EST Images from the original note were not included. Medication Therapy Disease Management Clinic - Diabetes Management Progress Note Ruth Burger, identified by name and date of , is a 73 year old female being seen for diabetes management/education. Patient presents for return diabetic visit. DIABETES: Current diabetic medications: Novolin R (Relion) Vial - 8 units with breakfast, 4 units with lunch , 6 units with supper + CF 1:20 if over 140 INCREASE Levemir Vial - 20 units daily in AM Metformin 1000 mg - 1 tablet TWICE a day with food eGFR 76 as of 04/28/23 Medication Injection Site: Abdomen Lifestyle: Diet: improved Glucose Review/SMBG: Readings obtained from patient device Hypoglycemia: Does your blood sugar go below 70 mg/dL? No Hyperglycemia symptoms present: none Recent Labs Units 11/20/23 1319 12/06/22 1202 08/30/22 0940 [facility] 7.6* 8.0* 7.4* Recent Labs Units 06/07/23 0813 05/31/23 1045 05/08/23 0829 ESTIMATED GLOMERULAR FILTRATION RATE - [facility] mL/min 83 80 72 CREATININE - [facility] mg/dL 0.8 0.8 0.9 HYPERTENSION: Patient on ACEi/ARB: no, not indicated BP Readings from Last 3 Encounters: 12/22/23 110/60 11/08/23 106/58 11/03/23 130/66 Blood pressure at goal: yes HYPERLIPIDEMIA: Patient is taking moderate or high intensity statin: yes HEALTH MAINTENANCE REVIEW: Health Maintenance Due Topic Date Due Influenza Vaccine (FLU shot) (1) 07/14/2023 COVID-19 Vaccine (2022- season) 2023 *BISPHONATE OR OTHER ACCEPTABLE MEDICATION NEEDED FOR OSTEOPOROSIS (REFER TO SMARTSET #1146) Never done TSH 12/06/2023 ASSESSMENT & PLAN: ICD-10-CM 1. Type 2 diabetes mellitus with hemoglobin A1c goal of less than 8.0% ([facility]) E11.9 Considerations: Cost: Approved for PACE 07/2023 Medication: H/o MARTHA to Lantus, unspecified; Eye pain with Xultophy A1c may not be accurate given frequent transfusions Libre2 through [facility] [phone] Daughter, JONES Frey nurse BG Readings - Blood sugars reviewed per BioNanovationsstyle Jojo download. Readings have shown great improvement to A1c goal < 8%. Of note, updated A1c last month also improved to goal. Denies any s/sx of hypoglycemia. Medications - Reviewed current regimen, patient is adherent to regimen. Tolerating well. Discussed the need to transition from Levemir --> Lantus in future due to discontinuation of Levemir. Additionally, can look towards transitioning from vials --> pens at this time as well. Patient reports several vials left of both insulins in current supply. She is agreeable to contact clinic when she gets low and we will then proceed with transition. Diet, Exercise, Lifestyle - Patient notes on working to decreasing snacking. Of note, also working to choose options other than chips/high CHO snacks as discussed at last visit. Encouraged to keep upgreat work. Patient is agreeable to SMBG daily with Cgm (BioNanovationsstyle Jojo) Patient aware to contact clinic if any hypoglycemia before next visit. MEDICATION CHANGES: no change Diabetic Medications: Novolin R (Relion) Vial - 8 units with breakfast, 4 units with lunch , 6 units with supper + CF 1:20 if over 140 Levemir Vial - 20 units daily in AM Metformin 1000 mg - 1 tablet TWICE a day with food eGFR 76 as of 04/28/23 HEALTH MAINTENANCE INTERVENTIONS: Labs: Up to Date Immunizations: To be addressed at PCP visit Foot Exam: Up to Date Eye Exam: Up to Date Annual Wellness Visit: Up to Date FOLLOW UP: Return to clinic in 8 weeks 02/27/2024 Makenzie Pool [facility] Clinical Pharmacist - [place] Medication Therapy Management [facility] 01/02/2024, 1:44 PM documented in this encounter Plan of Treatment Upcoming Encounters Date Type Department Care Team (Late st Contact Info) Description 01/03/2024 10:40 AM EST Laboratory Lab Mobile Phlebotomy [facility] [address] [place] [address] [facility] Mobile Home Draw [address] [place] [address] 01/04/2024 3:15 PM EST Office Visit Hematology/Oncology [facility] [place] [address] [place] [place] [address] Jitendra Aguero MD [address] [facility] [place] [address] 01/10/2024 10:40 AM EST Laboratory Lab Mobile Phlebotomy [facility] [address] [place] [address] [facility] G[facility] Mobile Home Draw [address] [place] [address] 01/17/2024 10:40 AM EST Laboratory Lab Mobile Phlebotomy [facility] [address] [place] [address] [facility] G[facility] Mobile Home Draw [address] [place] [address] 01/24/2024 10:40 AM EDT Laboratory Lab Mobile Phlebotomy [facility] [address] [place] [address] [facility] Gm Mobile Home Draw [address] [place] [address] 01/26/2024 2:00 PM EDT Immunization/Injectio n Hematology/Oncology Treatment, [place] [address] [place] [phone] Nurse, Med [address] [facility] [place] [address] 01/31/2024 10:00 AM EDT [facility] Visit [facility], [facility] [address] [place] [address] Marisa Pacheco RN [address] [place] [address] 01/31/2024 10:40 AM EDT Laboratory Lab Mobile Phlebotomy [facility] [address] [place] [address] [facility], [facility] Mobile Home Draw [address] [place] [address] 02/07/2024 10:40 AM EDT Laboratory Lab Mobile Phlebotomy [facility] [address] [place] [address] [facility] l Mobile Home Draw [address] [place] [address] 02/14/2024 10:40 AM EDT Laboratory Lab Mobile Phlebotomy [facility] [address] [place] [address] [facility] Gml Mobile Home Draw [address] [place] [address] 02/21/2024 10:40 AM EDT Laboratory Lab Mobile Phlebotomy [facility] [address] [place] [address] [facility], [facility] Mobile Home Draw [address] [place] [address] 02/27/2024 2:00 PM EDT Office Visit Pharmacy, [address] [place] [address] [place] [address] 07/03/2024 1:30 PM EDT Imaging Radiology [address] [place] [address] 12/24/2024 2:30 PM EST Nurse Only Ancillary [address] [place] [address] [place], Nurse [address] [place] [address] Scheduled Procedures Name Priority Associated Diagnoses Date/Ti [...] Screening 12/22/2024 12/22/2023 DXA Scan 06/13/2025 06/13/2023, 11/2022, 03/16/2015 DTaP,Tdap,and Td Vaccines (3 - Td or Tdap) 11/10/2026 11/10/2016, 03/30/2011 VITAMIN D LEVEL ONCE IN A LIFETIME-USE SMARTSET# 47043 Completed 05/11/2015 Zoster Vaccines Completed 10/30/2020, 02/2020, [...] this encounter Medical Devices Implanted Type Area Fourth Hand Device Identifier Shelf Expiration Date Model / Serial / Lot Port Pwr Mri Isp Profile - [id number] Implanted:Qty: 1 on 07/24/2020 by Akash Castillo MD at OR [facility] Right: Chest CR BARD : PERIPHERAL VASCULAR 04/12/2021 [id number] / / [id number] documented as of this encounter Visit Diagnoses Diagnosis Type 2 diabetes mellitus with hemoglobin A1c goal of less than 8.0% (HCC)- Primary documented in this encounter Advance Directives [...] the patient have Health Care Power of Head Nurse? No Code Status History Code Status Date Activated Date Inactivated Comments Full Code 07/27/2021 7:04 PM 07/31/2021 5:19 PM This order reflects the patients wishes and were consensually agreed upon. Question Answer Comments Discussion of Advance Directives occurred with: Patient Does the patient have a Living Will? No Does the patient have Health Care Power of Head Nurse? No Full Code 07/25/2021 12:43 PM 07/25/2021 11:03 PM Thi s order reflects the patients wishes and were consensually agreed upon. Question Answer Comments Discussion of Advance Directives occurred with: Patient/Family Does the patient have a Living Will? No Does the patient have Health Care Power of Head Nurse? No Full Code 06/12/2017 2:29 PM 06/12/2017 10:37 PM This order reflects the patients wishes and were consensually agreed upon. Question Answer Comments Discussion of Advance Directives occurred with: Not Discussed Does the patient have a Living Will? No Does the patient have Health Care Power of Head Nurse? No Healthcare Agents on File Name Relationship Healthcare Agent [facility] Communication Juanita Silva Adult Child Health Care Agent Care Teams Compliance Engineer Products Relationship Specialty Start Date End Date hDruv Moss MD [address] [place] [address] [place] [address] PCP - General Family Medicine 08/27/21 documented as of this encounter
--- OUTSIDE RECORDS SUMMARY | 2024-02-26 04:35 | External Medical Summary ---
Author Name Unknown Address Unknown Organization K01:LABORATORY [facility] - [address] [place] [address] Laboratory Report Ordering Provider Test Date Status ABDOULAYE MICHAUD 01/02/2024 14:49:23 Final Observation Date Value Abnormality Reference (Units ) Status TSH 01/02/2024 14:49:23 5.69 Above high normal 0. 27-4.20 (uIU/mL) Final Performing Location LABORATORY C - [address] [place] [address]
--- OUTSIDE RECORDS SUMMARY | 2024-02-26 04:35 | External Medical Summary ---
Author Name Unknown Address Unknown Organization K01:[facility] [place] [address] Laboratory Report Ordering Provider Test Date Status ANN MUNGUIA 01/02/2024 14:49:23 Final Observation Date Value Abnormality Reference (Units ) Status SYNC LEUKOCYTES IN BLOOD BY AUTOMATED COUNT 01/02/2024 14:49:23 8.28 4.00-10.80 (K/uL) Final Neutrophils/100 leukocytes in Blood by Manual count 01/02/2024 14:49:23 40.0 40.0-75.0 (%) Final Lymphocytes/100 leukocytes in Blood by Manual count 01/02/2024 14:49:23 43.0 Above high normal 18.0-42.0 (%) Final Monocytes/100 leukocytes in Blood by Manual count 01/02/2024 14:49:23 7.0 1.0-11.0 (%) Final Eosinophils/100 leukocytes in Blood by Manual count 01/02/2024 14:49:23 5.0 0.0-6.0 (%) Final Metamyelocytes/100 leukocytes in Blood by Manual count 01/02/2024 14:49:23 1.0 Above high normal <=0.0 (%) Final Blasts/100 leukocytes in Blood by Manual count 01/02/2024 14:49:23 4.0 Above high normal <=0.0 (%) Final Neutrophils [#/volume] in Blood by Manual count 01/02/2024 14:49:23 3.31 1.80-7.70 (K/uL) Final Lymphocytes [#/volume] in Blood by Manual count 01/02/2024 14:49:23 3.56 1.00-4.80 (K/uL) Final Monocytes [#/volume] in Blood by Manual count 01/02/2024 14:49:23 0.58 0.00-1.10 (K/uL) Final Eosinophils [#/volume] in Blood by Manual count 01/02/2024 14:49:23 0.41 0.00-0.70 (K/uL) Final Metamyelocytes [#/volume] in Blood by Manual count 01/02/2024 14:49:23 0.08 Above high normal <=0.00 (K/uL) Final Blasts [#/volume] in Blood by Manual count 01/02/2024 14:49:23 0.33 Above high normal <=0.00 (K/uL) Final Dohle body [Presence] in Blood by Light microscopy 01/02/2024 14:49:23 Present Abnormal None Seen Final Neutrophils.agranular [Presence] in Blood by Light microscopy 01/02/2024 14:49:23 Present Abnormal None Seen Final Variant lymphocytes [Presence] in Blood by Light microscopy 01/02/2024 14:49:23 Present Abnormal None Seen Final Toxic granules [Presence] in Blood by Light microscopy 01/02/2024 14:49:23 Moderate Abnormal None Seen Final Neutrophils.vacuolated [Presence] in Blood by Light microscopy 01/02/2024 14:49:23 Present Abnormal None Seen Final Performing Location [facility] [place] [address] [place] [facility] [address]
--- OUTSIDE RECORDS SUMMARY | 2024-02-26 04:35 | External Medical Summary | Summary of Care ---
Author Name Unknown Organization [facility] Address [address] [place] [address] Phone [phone] Care Team Providers Care Principal Clerk Name Role Phone Dhruv Moss MD Primary Care Provide r Reason for Visit * Reason Comments Outpatient Testing Encounter Details Date Type Department Care Team (Late st Contact Info) Description 01/02/2024 3:00 PM EST Laboratory Laboratory [address] [place] [id number] [place], Lab [address] [place] [address] [employer] Other*[id number]; MDS (myelodysplastic syndrome), high grade (HCC); Acquired hypothyroidism Allergies No known active allergiesdocumented as of [...] for Nausea. 60 Tablet 3 12/09/2021 Active JammcardTouch Delica Lancets 30GIndications:Type 2 diabetes mellitus with hemoglobin A1c goal of less than 8.0% ([facility]) Use to test blood sugar three times a day DXe11.9 300 Each 3 12/16/2021 Active JammcardTouch Verio In Vitro Strip (Glucose Blood)Indications:Ty pe 2 diabetes mellitus with hemoglobin A1c goal of less than 8.0% ([facility]) Use to test blood sugar three times a day DXe11.9 300 Strip 3 12/16/2021 Active JammcardTouch Verio Flex System w/Device Kit Use as directed . 0 12/16/2021 Active Acetaminophen 500 MG Oral Tablet Take 1 Tablet by mouth every 6 hours as needed. 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 Does not have any evidence of epnru-crtkrg-voem disease Last Assessment & Plan: Continues to [...] -continue venlafaxine Coronary artery disease invo lving solomon coronary artery of solomon heart without angina pectoris 06/12/2017 Overview: S/P EDIL to LAD on 06/12/17 Last Assessment & Plan: No angina - Continue atorvastatin, isosorbide, metoprolol - no ASA due to thrombocytopenia Dyslipidemia, goal LDL below 70 11/25/2011 Last Assessment & Plan: Patient having no issues. She continues on Lipitor 40 mg daily Last lab I will was that I can find were from [phone] Assessment/plan: Dyslipidemia with patient currently taking Lipitor [...] mRNA, LNP-s, No Pre serve, 2-Dose Series ([employer]) 02/05/2021,01/08/2021 COVID-19, LNP-s, No Preserve , Ye-sucrose, [...] Team (Late st Contact Info) Description 01/02/2024 3:10 PM EST Imaging Radiology [address] [place] [address] Arrived 01/03/2024 10:40 AM EST Laboratory Lab Mobile Phlebotomy [facility] [address] [place] [address] [facility], [facility] Home Draw [address] [place] [address] 01/04/2024 3:15 PM EST Office Visit Hematology/Oncology [facility] [address] [facility] [place] [phone] Jitendra Aguero MD [address] [facility] [place] [address] 01/10/2024 10:40 AM EST Laboratory Lab Mobile Phlebotomy [facility] [address] [place] [address] Gmc, Gml Mobile Home Draw [address] [place] [address] 01/17/2024 10:40 AM EST Laboratory Lab Mobile Phlebotomy [facility] [address] [place] [facility] [place] [address] [facility], Gml Mobile Home Draw [address] [place] [address] 01/24/2024 10:40 AM EDT Laboratory Lab Mobile [facility]lebotomy [facility] [address] [facility] [place] [address] [facility], Gml Mobile Home Draw [address] [place] [address] 01/26/2024 2:00 PM EDT Immunization/Injectio n Hematology/Oncology Treatment, [place] [address] [place] [phone] Nurse, Med [address] [place] [address] 01/31/2024 10:00 AM EDT [facility], [facility] [address] [place] [address] Marisa Pacheco RN 132 [facility] [place] [address] 01/31/2024 10:40 AM EDT Laboratory Lab Mobile Phlebotomy [facility] [address] [place] [address] [facility]ml Mobile Home Draw [address] [place] [address] 02/07/2024 10:40 AM EDT Laboratory Lab Mobile Phlebotomy [facility] [address] [place] [address] G[facility], Gml Mobile Home Draw [address] [place] [address] 02/14/2024 10:40 AM EDT Laboratory Lab Mobile Phlebotomy [facility] [address] [place] [address] [facility], Gml Mobile Home Draw [address] [place] [address] 02/21/2024 10:40 AM EDT Laboratory Lab Mobile Phlebotomy [facility] [address] [place] [address] Gmc, Gml Mobile Home Draw [address] [place] [address] 02/27/2024 2:00 PM EDT Office Visit Pharmacy, [address] [place] [address] [place] [address] 07/03/2024 1:30 PM EDT Imaging Radiology [address] [place] [address] 12/24/2024 2:30 PM EST Nurse Only Ancillary [address] [place] [address] [place], Nurse [address] [place] [address] Pending Results Name Type Priority Associated Diagnoses Date /Time MYCODE SUBSEQUENT ADULT Lab Routine [employer] Other*[id number] 01/02/2024 2:49 PM EST CBC WITH WBC DIFFERENTIAL Lab STAT MDS (myelodysplastic syndrome), high grade (HCC) 01/02/2024 2:49 PM EST TSH WITH FREE T4 IF INDICATED Lab Routine Acquired hypothyroidism 01/02/2024 2:49 PM EST MYCODE SST1 Lab Routine [employer] Other*[id number] 01/02/2024 2:49 PM EST MYCODE SST2 Lab Routine [employer] Other*[id number] 01/02/2024 2:49 PM EST CBC Lab STAT MDS (myelodysplastic syndrome), high grade (HCC) 01/02/2024 2:49 PM EST DIFFERENTIAL, AUTOMATED Lab STAT MDS (myelodysplastic syndrome), high grade (HCC) 01/02/2024 2:49 PM EST Scheduled Procedures Name Priority Associated Diagnoses Date/Ti [...] Screening 12/22/2024 12/22/2023 DXA Scan 06/13/2025 06/13/2023, 080 11/2022, 03/16/2015 DTaP,Tdap,and Td Vaccines (3 - Td or Tdap) 11/10/2026 11/10/2016, 03/30/2011 VITAMIN D LEVEL ONCE IN A LIFETIME-USE SMARTSET# [id number] Completed 05/11/2015 Zoster Vaccines Completed 10/30/2020, 0902/2020, [...] this encounter Medical Devices Implanted Type Area Shade Cloth Finisher Device Identifier Shelf Expiration Date Model / Serial / Lot Port Pwr Mri Isp Profile - [id number] Implanted:Qty: 1 on 07/24/2020 by Akash Castillo MD at OR [facility] Right: Chest CR BARD : PERIPHERAL VASCULAR 04/12/2021 [id number] / / [id number] documented as of this encounter Visit Diagnoses Diagnosis [employer] Other*[id number] MDS (myelodysplastic syndrome), high grade (HCC) High grade myelodysplastic syndrome lesions Acquired hypothyroidism Unspecified hypothyroidism documented in this encounter Advance Directives Latest Code Status on File Code Status Date Activated Date Inactivated Comments Full Code 08/27/2021 1:10 PM 09/21/2021 5:49 PM This order reflects the patients wishes and were consensually agreed upon. Question Answer Comments Discussion of Advance Directives occurred with: Patient/Family Does the patient have a Living Will? No Does the patient have Health Care Power of Midwife? No Code Status History Code Status Date Activated Date Inactivated Comments Full Code 07/27/2021 7:04 PM 07/31/2021 5:19 PM This order reflects the patients wishes and were consensually agreed upon. Question Answer Comments Discussion of Advance Directives occurred with: Patient Does the patient have a Living Will? No Does the patient have Health Care Power of Midwife? No Full Code 07/25/2021 12:43 PM 07/25/2021 11:03 PM Thi s order reflects the patients wishes and were consensually agreed upon. Question Answer Comments Discussion of Advance Directives occurred with: Patient/Family Does the patient have a Living Will? No Does the patient have Health Care Power of Midwife? No Full Code 06/12/2017 2:29 PM 06/12/2017 10:37 PM This order reflects the patients wishes and were consensually agreed upon. Question Answer Comments Discussion of Advance Directives occurred with: Not Discussed Does the patient have a Living Will? No Does the patient have Health Care Power of Midwife? No Healthcare Agents on File Name Relationship Healthcare Agent Relationshi p Communication Juanita Silva Adult Child Health Care Agent Care Teams Principal Clerk Relationship Specialty Start Date End Date Dhruv Moss MD [address] [place], [place] [address] [address] PCP - General Family Medicine 08/27/21 documented as of this encounter
--- OUTSIDE RECORDS SUMMARY | 2024-02-26 04:35 | External Medical Summary | Summary of Care ---
Author Name Unknown Organization [facility] Address [address] [place] [facility] [place] [address] Phone [phone] Care Team Providers Care Career Advisor Name Role Phone Dhruv Moss MD Primary Care Provide r Reason for Visit * Reason Onset Date Comments Abnormal Lab Results 12/28/2023 Encounter Details Date Type Department Care Team (Late st Contact Info) Description 12/28/2023 Telephone Hematology/Oncology [facility] [place] [address] [facility] [place] [address] Jitendra Aguero MD 200 [facility] [place] [address] Abnormal Lab Results Allergies No known active allergiesdocumented as of this encounter (statuses as of 12/29/2023) Medications Medication Sig Dispensed Refills Start Date End Date Status Cholecalciferol (VITAMIN D3) 5000 UNITS TabletIndications:s upplement Take 1 Tablet by mouth in the morning. 0 5 Active BD Pen Needle Mini U/F 31G X 5 MM (Insulin Pen Needle)Indications: Type 2 diabetes mellitus with hemoglobin A1c goal of less than 8.0% ([facility]) Use with xultophy once a day dx [...] for Nausea. 60 Tablet 3 2 Active TelinetTouch Delica Lancets 30GIndications:Type 2 diabetes mellitus with hemoglobin A1c goal of less than 8.0% ([facility]) Use to test blood sugar three times a day DXe11.9 300 Each 3 2 Active [employer] Verio In Vitro Strip (Glucose Blood)Indications:T ype 2 diabetes mellitus with hemoglobin A1c goal of less than 8.0% ([facility]) Use to test blood sugar three times a day DXe11.9 300 Strip 3 2 Active TelinetTouch Verio Flex System w/Device Kit Use as directed . 0 2 Active Magnesium 100 MG Oral TabletIndications:s upplement Take 1 Tablet by mouth in the morning. Pt states every 3 days. 0 Active Acetaminophen 500 MG Oral Tablet Take 1 Tablet by mouth every 6 hours as needed. 0 Active Nystatin 054273 UNIT/GM External Cream Apply topically to affected [...] As directed. 42.5 g 5 3 Active Amoxicillin-Pot Clavulanate 875-125 MG Oral Tablet (Augmentin) Take 1 Tablet by mouth in the morning and 1 Tablet before bedtime. 0 3 Active Polyethylene Glycol 3350 17 GM/SCOOP [...] 24 Hour (Imdur)Indications: Coronary artery disease involving [place] coronary artery of [place] heart without angina pectoris,HTN, goal below 140/90 TAKE 1 TABLET BY MOUTH IN THE MORNING 90 Tablet 0 4 Active Levothyroxine Sodium 75 MCG Oral Tablet (Levoxyl)Indication s:Postoperative hypothyroidism TAKE ONE TABLET BY MOUTH daily first thing in the morning at least 30 minutes prior to breakfast or other meds 90 Tablet 0 3 12/29/19 24 Discontinued Hospital, Clinic, or Other Facility Administered Medication Ordered Dose Route Frequency Start Date End Date Status NSS 0.9% 1,000 mL bolus infusionIndications:MDS (myelodysplastic syndrome), high grade (HCC),Stem cells transplant status (HCC),Acquired hypothyroidism 1000 mL IV DAILY PRN 12/08/2021 Active bevaCIZumab (Avastin) inj 1.25 mgIndications: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 Date of Transplant: 09/01/2021 Conditioning Regimen: Fludarabine / Busulfan 2 with post-transplant Cytoxan ABO/Rh: A Positive CMV status: CMV Positive--- GRID: [id number] [id number] / DID: [id number] Matched Unrelated 10/24--- DPB1 Match ABO/Rh: A [...] Thrombocytopenia 12/06/2022 Last Assessment & Plan: Platelets 97539 on 03/20 Questionable hematuria Urinary incontinence 09/12/2022 [...] failure. Does not have any evidence of vjfhm-jazglp-trvq disease Last Assessment & Plan: Continues to [...] -continue venlafaxine Coronary artery disease invo lving pedro [place] coronary artery of [place] heart without angina pectoris 06/12/2017 Overview: S/P EDIL to LAD on 06/12/17 Last Assessment & Plan: No angina - Continue atorvastatin, isosorbide, metoprolol - no ASA due to thrombocytopenia Dyslipidemia, goal LDL below 70 11/25/2011 Last Assessment & Plan: Patient having no issues. She continues on Lipitor 40 mg daily Last lab I will was that I can find were from [phone] Assessment/plan: Dyslipidemia with patient currently taking Lipitor [...] as of this encounter (statuses as of 12/29/2023) Resolved Problems Problem Noted Date Diagnosed Date [...] as of this encounter (statuses as of 12/29/2023) Immunizations Name Administration Dates Next Due COVID-19 mRNA, LNP-s, No Pre serve, 2-Dose Series ([employer]) 02/05/2021,01/08/2021 COVID-19, LNP-s, No Preserve , Ye-sucrose, [...] Telephone Encounter - Bogdan Gutiérrez RN - 12/29/2023 4:12 PM EST Called and spoke with the patient and her . * Telephone Encounter - Bogdan Gutiérrez RN - 12/28/2023 12:54 PM EST MyG sent to patient. * Telephone Encounter - Bogdan Gutiérrez RN - 12/28/2023 12:54 PM EST ----- Message from Jitendra Aguero MD sent at 12/28/2023 7:25 AM EST ----- Blood workup done on 12/27/2023: -Platelet count 59552 -hemoglobin level 9.3. No need for blood or Platelet transfusion, repeat CBCD in 1 week. documented in this encounter Plan of Treatment Upcoming Encounters Date Type Department Care Team (Late st Contact Info) Description 01/02/2024 1:40 PM EST Office Visit Pharmacy, [address] [place] [address] [place] [address] 01/02/2024 2:20 PM EST Office Visit Family Medicine [address] [place] [phone] Dhruv Moss MD [address] [place] [address] [place] [address] 01/03/2024 10:40 AM EST Laboratory Lab Mobile [facility] [address] [place] [address] [facility], Gml Mobile Home Draw [address] [place] [address] 01/04/2024 3:15 PM EST Office Visit Hematology/Oncology [facility] [address] [facility] [place] [address] Jitendra Aguero MD [address] [facility] [place] [address] 01/10/2024 10:40 AM EST Laboratory Lab Mobile [facility]bot[facility] [address] [place] [address] Gmc, Gml Mobile Home Draw [address] [place] [address] 01/17/2024 10:40 AM EST Laboratory Lab Mobile [facility] [address] [place], [place] [id number] Gmc, Gml Mobile Home Draw [address] [place], [place] [address] 01/24/2024 10:40 AM EDT Laboratory Lab Mobile [facility]bot[facility] [address] [place] [address] Gmc, Gml Mobile Home Draw [address] [place] [address] 01/26/2024 2:00 PM EDT Immunization/Injectio n Hematology/Oncology Treatment, [place] [address] [place] [address] Nurse, Med [address] [place] [address] 01/31/2024 10:00 AM EDT [facility] Visit [facility], [facility] [address] [place] [address] Marisa Pacheco RN [address] [place] [address] 01/31/2024 10:40 AM EDT Laboratory Lab Mobile Phlebotomy [facility] [address] [place] [address] [facility], Gml Mobile Home Draw [address] [place] [address] 02/07/2024 10:40 AM EDT Laboratory Lab Mobile Phlebotomy [facility] [address] [place] [address] Gmc, Gml Mobile Home Draw [address] [place] [address] 02/14/2024 10:40 AM EDT Laboratory Lab Mobile Ph[facility]botomy [facility] [address] [place] [address] Gm, Gml Mobile Home Draw [address] [place] [address] 02/21/2024 10:40 AM EDT Laboratory Lab Mobile Phlebotomy [facility] [address] [place] [address] Gmc, Gml Mobile Home Draw [address] [place] [address] 07/03/2024 1:30 PM EDT Imaging Radiology [address] [place] [address] 12/24/2024 2:30 PM EST Nurse Only Ancillary [address] [place] [address] [place], Nurse Annual [address] [place] [address] Scheduled Procedures Name Priority Associated Diagnoses Date/Ti [...] D LEVEL ONCE IN A LIFETIME-USE SMARTSET# [id number] Completed 05/11/2015 Zoster Vaccines Completed 10/30/2020, 02/2020, [...] this encounter Medical Devices Implanted Type Area King Maker Device Identifier Shelf Expiration Date Model / Serial / Lot Port Pwr Mri Isp Profile - [id number] Implanted:Qty: 1 on 07/24/2020 by Akash Castillo MD at OR [facility] Right: Chest CR BARD : PERIPHERAL VASCULAR 04/12/2021 [id number] / / [id number] documented as of this encounter Advance Directives [...] the patient have Health Care Power of Farmworker Poultry? No Code Status History Code Status Date Activated Date Inactivated Comments Full Code 07/27/2021 7:04 PM 07/31/2021 5:19 PM This order reflects the patients wishes and were consensually agreed upon. Question Answer Comments Discussion of Advance Directives occurred with: Patient Does the patient have a Living Will? No Does the patient have Health Care Power of Farmworker Poultry? No Full Code 07/25/2021 12:43 PM 07/25/2021 11:03 PM Thi s order reflects the patients wishes and were consensually agreed upon. Question Answer Comments Discussion of Advance Directives occurred with: Patient/Family Does the patient have a Living Will? No Does the patient have Health Care Power of Farmworker Poultry? No Full Code 06/12/2017 2:29 PM 06/12/2017 10:37 PM This order reflects the patients wishes and were consensually agreed upon. Question Answer Comments Discussion of Advance Directives occurred with: Not Discussed Does the patient have a Living Will? No Does the patient have Health Care Power of Farmworker Poultry? No Healthcare Agents on File Name Relationship Healthcare Agent [facility] Communication Juanita Silva Adult Child Health Care Agent Care Teams Career Advisor Relationship Specialty Start Date End Date Dhruv Moss MD [address] [place] [address] [place] [id number] PCP - General Family Medicine 08/27/21 documented as of this encounter
--- OUTSIDE RECORDS SUMMARY | 2024-02-26 04:35 | External Medical Summary | Summary of Care ---
Author Name Unknown Organization [facility] Address [address] [place] [facility] [place] [address] Phone [phone] Care Team Providers Care Manager Diversity Name Role Phone Dhruv Moss MD Primary Care Provide r Reason for Visit * Reason Onset Date Comments Test Results Lab 12/22/2023 Encounter Details Date Type Department Care Team (Late st Contact Info) Description 12/22/2023 Telephone Hematology/Oncology [facility] [place] [address] [facility] [place] [address] Jitendra Aguero MD [address] [place] [address] Test Results Lab Allergies No known active allergiesdocumented as of this encounter (statuses as of 12/22/2023) Medications Medication Sig Dispensed Refills Start Date End Date Status Cholecalciferol (VITAMIN D3) 5000 UNITS TabletIndications:bowers pplement Take 1 Tablet by mouth in the morning. 0 05/14/2015 Active BD Pen Needle Mini U/F 31G [...] for Nausea. 60 Tablet 3 12/09/2021 Active KartoonArtTouch Delica Lancets 30GIndications:Type 2 diabetes mellitus with hemoglobin A1c goal of less than 8.0% ([facility]) Use to test blood sugar three times a day DXe11.9 300 Each 3 12/16/2021 Active KartoonArtTouch Verio In Vitro Strip (Glucose Blood)Indications:Ty pe 2 diabetes mellitus with hemoglobin A1c goal of less than 8.0% ([facility]) Use to test blood sugar three times a day DXe11.9 300 Strip 3 12/16/2021 Active KartoonArtTouch Verio Flex System w/Device Kit Use as directed . 0 12/16/2021 Active Magnesium 100 MG Oral TabletIndications:bowers pplement Take 1 Tablet by mouth in the morning. Pt states every 3 days. 0 Active Acetaminophen 500 MG Oral Tablet Take 1 Tablet by mouth every 6 hours as needed. 0 Active Nystatin 073188 UNIT/GM External Cream Apply topically to affected [...] As directed. 42.5 g 5 05/10/2023 Active Amoxicillin-Pot Clavulanate 875-125 MG Oral Tablet (Augmentin) Take 1 Tablet by mouth in the morning and 1 Tablet before bedtime. 0 04/08/2023 Active Polyethylene Glycol 3350 17 GM/SCOOP Oral Powder (Miralax) Take 17 g by mouth in the morning. 0 04/20/2023 Active Omeprazole 20 MG Oral Capsule Delayed Release (PriLOSEC)Indication s:MDS (myelodysplastic syndrome), high grade (HCC) Take 1 capsule by mouth twice daily 180 Capsule 2 06/10/2023 Active Levemir 100 UNIT/ML Subcutaneous Solution (insulin Detemir)Indications: Type 2 diabetes mellitus with hemoglobin A1c goal of less than 8.0% (HCC) Inject 18 Units under the skin at bedtime. 30 mL 3 07/12/2023 Active NovoLIN R 100 UNIT/ML Injection Solution (insulin REGULAR human)Indications:Ty pe 2 diabetes mellitus with hemoglobin A1c goal of less than 8.0% (HCC) Inject 8 units with breakfast, 4 units with lunch, and 6 units with dinner + sliding scale of 1 units per every 20 over 140 MAX DAILY DOSE 50 units 50 mL 5 07/25/2023 Active Levemir 100 UNIT/ML Subcutaneous Solution (insulin Detemir)Indications: Type 2 diabetes mellitus with hemoglobin A1c goal of less than 8.0% ([facility]) Inject 18 Units under the skin at bedtime. 15 mL 3 07/25/2023 Active Levothyroxine Sodium 75 MCG Oral Tablet (Levoxyl)Indications :Postoperative hypothyroidism TAKE ONE TABLET BY MOUTH daily first thing in the morning at least 30 minutes prior to breakfast or other meds 90 Tablet 0 09/10/2023 Active Venlafaxine HCl ER 150 MG Oral Capsule Extended Release 24 Hour (Effexor XR)Indications:Recur rent major depressive disorder, in partial remission (HCC) TAKE ONE CAPSULE BY MOUTH EVERY DAY do not cut, crush, or chew 90 Capsule 0 12/18/2023 Active Isosorbide Mononitrate ER 30 MG Oral Tablet Extended Release 24 Hour (Imdur)Indications:C oronary artery disease involving lumbee coronary artery of lumbee heart without angina pectoris,HTN, goal below 140/90 TAKE 1 TABLET BY MOUTH IN THE MORNING 90 Tablet 0 12/18/2023 Active Hospital, Clinic, or Other Facility Administered Medication Ordered Dose Route Frequency Start Date End Date Status NSS 0.9% 1,000 mL bolus infusionIndications:MDS (myelodysplastic syndrome), high grade (HCC),Stem cells transplant status (HCC),Acquired hypothyroidism 1000 mL IV DAILY PRN 12/08/2021 Active bevaCIZumab (Avastin) inj 1.25 mgIndications: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 Date of Transplant: 09/01/2021 Conditioning Regimen: Fludarabine / Busulfan 2 with post-transplant Cytoxan ABO/Rh: A Positive CMV status: CMV Positive--- GRID: [id number] / DID: [id number] Matched Unrelated 10/24--- DPB1 Match ABO/Rh: A [...] Thrombocytopenia 12/06/2022 Last Assessment & Plan: Platelets 82343 on 03/20 Questionable hematuria Urinary incontinence 09/12/2022 [...] failure. Does not have any evidence of vjyzo-getyze-mkke disease Last Assessment & Plan: Continues to [...] -continue venlafaxine Coronary artery disease invo lving lumbee coronary artery of lumbee heart without angina pectoris 06/12/2017 Overview: S/P EDIL to LAD on 06/12/17 Last Assessment & Plan: No angina - Continue atorvastatin, isosorbide, metoprolol - no ASA due to thrombocytopenia Dyslipidemia, goal LDL below 70 11/25/2011 Last Assessment & Plan: Patient having no issues. She continues on Lipitor 40 mg daily Last lab I will was that I can find were from [phone] Assessment/plan: Dyslipidemia with patient currently taking Lipitor [...] as of this encounter (statuses as of 12/22/2023) Resolved Problems Problem Noted Date Diagnosed Date [...] of insulin 08/30/2021 Last Assessment & Plan: Dick aPatient currently has been having some issues [...] as of this encounter (statuses as of 12/22/2023) Immunizations Name Administration Dates Next Due COVID-19 mRNA, LNP-s, No Pre serve, 2-Dose Series (Pfizer) 02/05/2021,01/08/2021 COVID-19, LNP-s, No Preserve , Ye-sucrose, Ages 12+ (Pfizer) 12/06/2021 Pneumococcal Conjugate Vacc, 13 Valent (Prevnar) 06/10/2022,10/09/2015 Pneumococcal Polysaccharide PPV23 (Pneumovax) 01/06/2017,03/30/2011 Seasonal Influenza, PF, 6 M & above, [...] Telephone Encounter - Bogdan Gutiérrez RN - 12/22/2023 8:34 AM EST Called patient, no answer, LMOM with return #. MyG sent. * Telephone Encounter - Bogdan Gutiérrez RN - 12/22/2023 8:33 AM EST ----- Message from Jitendra Aguero MD sent at 12/22/2023 8:11 AM EST ----- Blood workup done on 12/20/2023: -WBC 6300, H&H of 10.1/29.8, [place] [address]. No need for blood or Platelet transfusion Will continue to check weekly CBCD checkup documented in this encounter Plan of Treatment Upcoming Encounters Date Type Department Care Team (Late st Contact Info) Description 12/22/2023 3:00 PM EST Nurse Only Ancillary [address] [place] [address] Cristina, Nurse [address] [place] [address] 12/26/2023 11:15 AM EST Office Visit Hematology/Oncology [place], [place] [address] [place], [place] [address] Jitendra Aguero MD [address] [place] [address] 12/27/2023 10:40 AM EST Laboratory Lab [facility] [address] [place] [address] [facility], [facility] Mobile Home Draw [address] [place] [address] 12/29/2023 12:30 PM EST Home Visit [facility], [facility] [address] [facility] [place] [address] Marisa Pacheco RN [address] [facility] [place] [address] 01/02/2024 1:40 PM EST Office Visit Pharmacy, [address] [place] [address] [place] [address] 01/02/2024 2:20 PM EST Office Visit Family Medicine [address] [place] [phone] Dhruv Moss MD [address] [place] [address] [place] [address] 01/03/2024 10:40 AM EST Laboratory Lab [facility] [address] [place] [address] [facility], [facility] Draw [address] [place] [address] 01/10/2024 10:40 AM EST Laboratory Lab [facility] [address] [place] [address] [facility], [facility] Mobile Home Draw [address] [place] [address] 01/17/2024 10:40 AM EST Laboratory Lab Mobile Phlebotomy [facility] [address] [place] [address] [facility] Draw [address] [place] [address] 01/24/2024 10:40 AM EDT Laboratory Lab Mobile Phlebot[facility] [address] [place] [address] [facility] Draw [address] [place] [address] 01/26/2024 2:00 PM EDT Immunization/Injectio n Hematology/Oncology Treatment, [place] [address] [place] [address] Nurse, Med [address] [place] [address] 01/31/2024 10:40 AM EDT Laboratory Lab [facility] [address] [place] [address] [facility] Draw [address] [place] [address] 02/07/2024 10:40 AM EDT Laboratory Lab [facility] [address] [place] [address] [facility] Draw [address] [place] [address] 02/14/2024 10:40 AM EDT Laboratory Lab Mobile Phlebotomy [facility] [address] [place] [address] [facility], [facility] Home Draw [address] [place] [address] 02/21/2024 10:40 AM EDT Laboratory Lab Mobile Phlebotomy [facility] [address] [place], [place] [id number] [facility], [facility] Mobile Home Draw [address] [place] [address] 07/03/2024 1:30 PM EDT Imaging Radiology [address] [place] [address] Scheduled Procedures Name Priority Associated Diagnoses Date/Ti me COLONOSCOPY FLEXIBLE PROXIMA L DIAGNOSTIC Recall Encounter for screening colonoscopy Health Maintenance Due Date Last Done Comments Hepatitis B (1 of 3 - Risk 3-dose series) 2008 COVID-19 Vaccine ( season) 2023 12/06/2021, 02/05/2021, 01/08/2021 Influenza Vaccine (FLU shot) (#1) 2023 07/17/2020, 07/13/2020, 07/25/2019, Additional history exists *BISPHONATE OR OTHER ACCEPTABLE MEDICATION NEEDED FOR OSTEOPOROSIS (REFER TO SMARTSET #1146) 11/06/2023 TSH 12/06/2023 12/06/2022, 08/15, 03/08/2022, Additional history exists Depression Screening 12/12/2023 12/12/2022 COLONOSCOPY-EVERY 5 YRS AGES 18-100 05/06/2024 05/06/2019, 05/06/2019 Diabetic Eye Exam 05/12/2024 05/12/2023, , 05/12/2023, Additional history exists HbA1c 05/20/2024 11/20/2023, 11/14, 08/30/2022, Additional history exists Diabetic Foot Exam 06/05/2024 06/05/2023, 0 06/03/2022, 06/01/2021, Additional history exists GFR 06/07/2024 06/07/2023, 05/13, 05/08/2023, Additional history exists Albumin/Creatinine Ratio 09/15/2024 023, 03/08/2022, 10/29/2019, Additional history exists DXA Scan 06/13/2025 06/13/2023, 08/0 11/2022, 03/16/2015 DTaP,Tdap,and Td Vaccines (3 - Td or Tdap) 11/10/2026 11/10/2016, 03/30/2011 VITAMIN D LEVEL ONCE IN A LIFETIME-USE SMARTSET# 51949 Completed 05/11/2015 Zoster Vaccines Completed 10/30/2020, 02/2020, 07/13/2020, Additional history exists Pneumococcal Vaccine: 65+ Years Completed 06/10/2022, 01/06/2017, 10/09/2015, Additional history exists GARDASIL-HPV IMMUNIZATION SERIES Aged Out No longer eligible based on patient's age to complete this topic MENINGOCOCCAL (MENACTRA/MENVEO) Aged Out No longer eligible based on patient's age to complete this topic documented as of this encounter Medical Devices Implanted Type Area Group Insurance Special Agent Device Identifier Shelf Expiration Date Model / Serial / Lot Port Pwr Mri Isp Profile - [id number] Implanted:Qty: 1 on 07/24/2020 by Akash Castillo MD at OR [facility] Right: Chest CR BARD : PERIPHERAL VASCULAR 04/12/2021 [id number] / / [id number] documented as of this encounter Advance Directives [...] the patient have Health Care Power of Floor Surfacer? No Code Status History Code Status Date Activated Date Inactivated Comments Full Code 07/27/2021 7:04 PM 07/31/2021 5:19 PM This order reflects the patients wishes and were consensually agreed upon. Question Answer Comments Discussion of Advance Directives occurred with: Patient Does the patient have a Living Will? No Does the patient have Health Care Power of Floor Surfacer? No Full Code 07/25/2021 12:43 PM 07/25/2021 11:03 PM Thi s order reflects the patients wishes and were consensually agreed upon. Question Answer Comments Discussion of Advance Directives occurred with: Patient/Family Does the patient have a Living Will? No Does the patient have Health Care Power of Floor Surfacer? No Full Code 06/12/2017 2:29 PM 06/12/2017 10:37 PM This order reflects the patients wishes and were consensually agreed upon. Question Answer Comments Discussion of Advance Directives occurred with: Not Discussed Does the patient have a Living Will? No Does the patient have Health Care Power of Floor Surfacer? No Healthcare Agents on File Name Relationship Healthcare Agent [facility] p Communication Juanita Silva Adult Child Health Care Agent Care Teams Manager Diversity Relationship Specialty Start Date End Date Dhruv Moss MD [address] [place], [place] [address] [id number] PCP - General Family Medicine 08/27/21 documented as of this encounter
--- OUTSIDE RECORDS SUMMARY | 2024-02-26 04:35 | External Medical Summary ---
Author Name Unknown Address Unknown Organization [id number]:[facility] [place] [facility] [address] [place] [address] Laboratory Report Ordering Provider Test Date Status JOSÉ SOLER 12/27/2023 11:00:00 Final Observation Date Value Abnormality Reference (Units ) Status Triglyceride 12/27/2023 11:00:00 373 Above high normal <=174 (mg/dL) Final Triglyceride Reference Range s (mg/dL):
<150 Acceptable
150-174 Borderline high
175-499 High
>=500 Very high Cholesterol 12/27/2023 11:00:00 166 <200 (mg /dL) Final Total Cholesterol Reference Ranges (mg/dL):
<200 Desirable
200-239 Borderline high
>=240 High HDL 12/27/2023 11:00:00 38 Below low normal >49 (mg/dL) Final HDL Cholesterol Reference Ra nges (mg/dL):
>=60 High (Desirable)
<50 Low (Undesirable) For Females
<40 Low (Undesirable) For Males NON-HDL CHOLESTEROL 12/27/2023 11:00:00 128 <=159 (mg/dL) Final Non-HDL Cholesterol Referenc e Range (mg/dL):
<100 Target level for high risk ASCVD patient
<130 Optimal for general population
130-159 Near optimal for general population
160-189 Borderline High
190-219 High
>=220 Very High Performing Location [facility] [address] [place] [address]
--- OUTSIDE RECORDS SUMMARY | 2024-02-26 04:35 | External Medical Summary | Summary of Care ---
Author Name Unknown Organization [facility] Address [address] [place] [address] Phone [phone] Care Team Providers Care Coat Joiner Name Role Phone Dhruv Moss MD Primary Care Provide r Reason for Visit * Reason Comments eRx-Medication Refill Encounter Details Date Type Department Care Team (Late st Contact Info) Description 12/29/2023 Refill Family Medicine [address] [phone] Dhruv Moss MD [address] [place] [address] [place] [address] Postoperative hypothyroidism Allergies No known active allergiesdocumented as [...] hemoglobin A1c goal of less than 8.0% ([facility]) Use with xultophy once a [...] for Nausea. 60 Tablet 3 2 Active ZootcardTouch Delica Lancets 30GIndications:Type 2 diabetes mellitus with hemoglobin A1c goal of less than 8.0% ([facility]) Use to test blood sugar three times a day DXe11.9 300 Each 3 2 Active ZootcardTouch Verio In Vitro Strip (Glucose Blood)Indications:T ype 2 diabetes mellitus with hemoglobin A1c goal of less than 8.0% ([facility]) Use to test blood sugar three times a day DXe11.9 300 Strip 3 2 Active ZootcardTouch Verio Flex System w/Device Kit Use as directed . 0 2 Active Magnesium 100 MG Oral TabletIndications:s upplement Take 1 Tablet by mouth in the morning. Pt states every 3 days. 0 Active Acetaminophen 500 MG Oral Tablet Take 1 Tablet by mouth every 6 hours as needed. 0 Active Nystatin 698929 UNIT/GM External Cream Apply topically to affected [...] hemoglobin A1c goal of less than 8.0% ([facility]) Inject 8 units with breakfast, [...] 24 Hour (Imdur)Indications: Coronary artery disease involving tonawanda coronary artery of tonawanda heart without angina pectoris,HTN, goal below 140/90 TAKE 1 TABLET BY MOUTH IN THE MORNING 90 Tablet 0 4 Active Levothyroxine Sodium 75 MCG Oral Tablet (Levoxyl)Indication s:Postoperative hypothyroidism TAKE ONE TABLET BY MOUTH daily first thing in the morning at least 30 minutes prior to breakfast or other meds 30 Tablet 0 4 Active Levothyroxine Sodium 75 [...] syndrome), high grade (HCC),Stem cells transplant status ([facility]),Acquired hypothyroidism 1000 mL IV DAILY PRN 12/08/2021 Active bevaCIZumab (Avastin) inj 1.25 mgIndications: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, unspecified whether longterm insulin use ([facility]) 1.25 mg IZ PRN 05/12/2023 05/11/2024 Active ROPivacaine (Naropin) inj 1.5 mgIndications: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 Does not have any evidence of mykgo-yvajdj-zwxw disease Last Assessment & Plan: Continues to [...] -continue venlafaxine Coronary artery disease invo lving tonawanda coronary artery of tonawanda heart without angina pectoris 06/12/2017 Overview: S/P EDIL to LAD on 06/12/17 Last Assessment & Plan: No angina - Continue atorvastatin, isosorbide, metoprolol - no ASA due to thrombocytopenia Dyslipidemia, goal LDL below 70 11/25/2011 Last Assessment & Plan: Patient having no issues. She continues on Lipitor 40 mg daily Last lab I will was that I can find were from [id number] Assessment/plan: Dyslipidemia with patient currently taking Lipitor [...] mRNA, LNP-s, No Pre serve, 2-Dose Series (N[employer]ch) 02/05/2021,01/08/2021 COVID-19, LNP-s, No Preserve , Ye-sucrose, Ages 12+ ([employer]) 12/06/2021 Pneumococcal Conjugate Vacc, 13 Valent (Prevnar) [...] encounter Miscellaneous Notes * Telephone Encounter - Ismael Kendrick [facility] - 12/29/2023 3:14 PM ESTSigned Prescriptions: Disp Refills Levothyroxine Sodium 75 MCG Oral Tablet (L*30 Tab*0 Sig: TAKE ONE TABLET BY MOUTH daily first thing in the morning at least 30 minutes prior to breakfast or other medsAuthorizing Provider: DHRUV MOSS User: ISMAEL KENDRICK * Telephone Encounter - Ismael Kendrick [facility] - 12/29/2023 3:08 PM EST Provided 30 days supply with 0 refill(s). Per refill protocol patient should have TSH on file within past year. Patient gets labs completed frequently, added note for next mobile phleb appointment Thank you, Ismael Kendrick, PharmD Clinical Pharmacist [facility] ([facility]) (Formerly Telepharmacy) [phone] 12/29/2023, 3:08 PM documented in this encounter Plan of Treatment Upcoming Encounters Date Type Department Care Team (Late st Contact Info) Description 01/02/2024 1:40 PM EST Office Visit Pharmacy, [address] [place] [address] [place] [address] 01/02/2024 2:20 PM EST Office Visit Family Medicine [address] [place] [phone] Dhruv Moss MD [address] [place] [address] [place] [address] 01/03/2024 10:40 AM EST Laboratory Lab Mobile [facility]bot[facility] [address] [place] [address] [facility] Mobile [facility] Draw [address] [place] [address] 01/04/2024 3:15 PM EST Office Visit Hematology/Oncology [facility] [address] [place] [address] Jitendra Aguero MD [address] [place] [address] [place] [address] 01/10/2024 10:40 AM EST Laboratory Lab Mobile Phlebotomy [facility] [address] [place] [address] [facility] Mobile Home Draw [address] [place] [address] 01/17/2024 10:40 AM EST Laboratory Lab Mobile Phlebotomy [facility] [address] [place] [address] [facility] Mobile Home Draw [address] [place] [address] 01/24/2024 10:40 AM EDT Laboratory Lab Mobile Phlebotomy [facility] [address] [place] [address] [facility] Mobile Home Draw [address] [place] [address] 01/26/2024 2:00 PM EDT Immunization/Injectio n Hematology/Oncology Treatment, [place] [address] [place] [address] Nurse, Med [address] [facility] [place] [address] 01/31/2024 10:00 AM EDT [facility] [address] [place] [address] Marisa Pacheco, TANYA [address] [place] [address] 01/31/2024 10:40 AM EDT Laboratory Lab Mobile Phlebotomy [facility] [address] [place] [address] [facility] Mobile Home Draw [address] [place] [address] 02/07/2024 10:40 AM EDT Laboratory Lab Mobile Phlebotomy [facility] [address] [place] [address] [facility] Mobile Home Draw [address] [place] [address] 02/14/2024 10:40 AM EDT Laboratory Lab Mobile Phlebotomy [facility] [address] [place] [address] [facility] Mobile Home Draw [address] [place] [address] 02/21/2024 10:40 AM EDT Laboratory Lab Mobile Phlebotomy [facility] [address] [place] [address] [facility] Home Draw [address] [place] [address] 07/03/2024 1:30 PM EDT Imaging Radiology [address] [place] [address] 12/24/2024 2:30 PM EST Nurse Only Ancillary [address] [place] [address] [place], Nurse Annual [address] [place] [address] Scheduled Procedures Name Priority Associated Diagnoses Date/Ti [...] D LEVEL ONCE IN A LIFETIME-USE SMARTSET# [id number] Completed 05/11/2015 Zoster Vaccines Completed 10/30/2020, 02/2020, [...] this encounter Medical Devices Implanted Type Area Automotive Window Tinter Device Identifier Shelf Expiration Date Model / Serial / Lot Port Pwr Mri Isp Profile - [id number] Implanted:Qty: 1 on 07/24/2020 by Akash Castillo MD at [facility] Right: Chest CR BARD : PERIPHERAL VASCULAR 04/12/2021 [id number] / / [id number] documented as of this encounter Visit Diagnoses Diagnosis Postoperative hypothyroidism Postsurgical hypothyroidism documented in this encounter Advance Directives [...] the patient have Health Care Power of Office Service Coordinator? No Code Status History Code Status Date Activated Date Inactivated Comments Full Code 07/27/2021 7:04 PM 07/31/2021 5:19 PM This order reflects the patients wishes and were consensually agreed upon. Question Answer Comments Discussion of Advance Directives occurred with: Patient Does the patient have a Living Will? No Does the patient have Health Care Power of Office Service Coordinator? No Full Code 07/25/2021 12:43 PM 07/25/2021 11:03 PM Thi s order reflects the patients wishes and were consensually agreed upon. Question Answer Comments Discussion of Advance Directives occurred with: Patient/Family Does the patient have a Living Will? No Does the patient have Health Care Power of Office Service Coordinator? No Full Code 06/12/2017 2:29 PM 06/12/2017 10:37 PM This order reflects the patients wishes and were consensually agreed upon. Question Answer Comments Discussion of Advance Directives occurred with: Not Discussed Does the patient have a Living Will? No Does the patient have Health Care Power of Office Service Coordinator? No Healthcare Agents on File Name Relationship Healthcare Agent [facility] Communication Juanita Silva Adult Child Health Care Agent Care Teams Coat Joiner Relationship Specialty Start Date End Date Dhruv Moss MD [address] [place] [address] [place] [address] PCP - General Family Medicine 08/27/21 documented as of this encounter
--- OUTSIDE RECORDS SUMMARY | 2024-02-26 04:35 | External Medical Summary ---
Author Name Unknown Address Unknown Organization K01:[facility] - [address] [place] [address] Laboratory Report Ordering Provider Test Date Status JOSÉ SOLER 12/27/2023 11:00:00 Final Observation Date Value Abnormality Reference (Units ) Status LDL, (direct) 12/27/2023 11:00:00 68 <=129 (mg/dL) Final LDL Cholesterol Reference Ra nges (mg/dL):
<70 Target level for high risk ASCVD patient
<100 Optimal for general population
100-129 Near optimal for general population
130-159 Borderline high
160-189 High
>=190 Very high Performing Location [facility] - [address] [place] [address]
--- OUTSIDE RECORDS SUMMARY | 2024-02-26 04:35 | External Medical Summary | Summary of Care ---
Author Name Unknown Organization [facility] Address [address] [place] [facility] [place] [facility] [place] [address] Phone [phone] Care Team Providers Care Privacy Specialist Name Role Phone Dhruv Moss MD Primary Care Provide r Reason for Visit * Reason Onset Date Comments Abnormal Lab Results 12/28/2023 Encounter Details Date Type Department Care Team (Late st Contact Info) Description 12/28/2023 Telephone Hematology/Oncology [facility] [place] [address] [place] [address] Jitendra Aguero MD [address] [facility] [place] [address] Abnormal Lab Results Allergies No known active allergiesdocumented as of this encounter (statuses as of 12/28/2023) Medications Medication Sig Dispensed Refills Start Date [...] for Nausea. 60 Tablet 3 12/09/2021 Active Nu-Tech FoodsTouch Delica Lancets 30GIndications:Type 2 diabetes mellitus with hemoglobin A1c goal of less than 8.0% ([facility]) Use to test blood sugar three times a day DXe11.9 300 Each 3 12/16/2021 Active [employer] FoodsTouch Verio In Vitro Strip (Glucose Blood)Indications:Ty pe 2 diabetes mellitus with hemoglobin A1c goal of less than 8.0% ([facility]) Use to test blood sugar three times a day DXe11.9 300 Strip 3 12/16/2021 Active Nu-[employer] FoodsTouch Verio Flex System w/Device Kit Use as directed . 0 12/16/2021 Active Magnesium 100 MG Oral TabletIndications:bowers pplement Take 1 Tablet by mouth in the morning. Pt states every 3 days. 0 Active Acetaminophen 500 MG Oral Tablet Take 1 Tablet by mouth every 6 hours as needed. 0 Active Nystatin 874880 UNIT/GM External Cream Apply topically to affected [...] at bedtime. 30 mL 3 07/12/2023 Active Additional Information Patient taking differently: 20 [...] 50 units 50 mL 5 07/25/2023 Active Levothyroxine Sodium 75 MCG Oral [...] 24 Hour (Imdur)Indications:C oronary artery disease involving anvik coronary artery of anvik heart without angina pectoris,HTN, goal below 140/90 TAKE 1 TABLET BY MOUTH IN THE MORNING 90 Tablet 0 12/18/2023 Active Hospital, Clinic, or Other Facility Administered Medication Ordered Dose Route Frequency Start Date End Date Status NSS 0.9% 1,000 mL bolus infusionIndications:MDS (myelodysplastic syndrome), high grade (HCC),Stem cells transplant status ([facility]),Acquired hypothyroidism 1000 mL IV DAILY PRN 12/08/2021 Active bevaCIZumab (Avastin) inj 1.25 mgIndications: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 Date of Transplant: 09/01/2021 Conditioning Regimen: Fludarabine / Busulfan 2 with post-transplant Cytoxan ABO/Rh: A Positive CMV status: CMV Positive--- GRID: [id number] [id number] / DID: [id number] Matched Unrelated 10/24--- DPB1 Match ABO/Rh: A [...] Thrombocytopenia 12/06/2022 Last Assessment & Plan: Platelets 50649 on 03/20 Questionable hematuria Urinary incontinence 09/12/2022 [...] failure. Does not have any evidence of qyfve-xbfcjb-rrqx disease Last Assessment & Plan: Continues to [...] -continue venlafaxine Coronary artery disease invo lving anvik coronary artery of anvik heart without angina pectoris 06/12/2017 Overview: S/P EDIL to LAD on 06/12/17 Last Assessment & Plan: No angina - Continue atorvastatin, isosorbide, metoprolol - no ASA due to thrombocytopenia Dyslipidemia, goal LDL below 70 11/25/2011 Last Assessment & Plan: Patient having no issues. She continues on Lipitor 40 mg daily Last lab I will was that I can find were from [phone] Assessment/plan: Dyslipidemia with patient currently taking Lipitor [...] as of this encounter (statuses as of 12/28/2023) Resolved Problems Problem Noted Date Diagnosed Date [...] insulin 08/30/2021 Last Assessment & Plan: Dick Amadortietoni currently has been having some issues maintaining [...] as of this encounter (statuses as of 12/28/2023) Immunizations Name Administration Dates Next Due COVID-19 [...] Blood workup done on 12/27/2023: -Platelet count 58104 -hemoglobin level 9.3. No need for blood or Platelet transfusion, repeat CBCD in 1 week. documented in this encounter Plan of Treatment Upcoming Encounters Date Type Department Care Team (Late st Contact Info) Description 12/29/2023 12:30 PM EST [facility] Visit [facility], [facility] [address] [place] [address] Marisa Pacheco RN [address] [facility] [place] [address] 01/02/2024 1:40 PM EST Office Visit Pharmacy, [address] [place] [address] [place] [address] 01/02/2024 2:20 PM EST Office Visit Family Medicine [address] [place] [address] Dhruv Moss MD [address] [place] [address] [place] [address] 01/03/2024 10:40 AM EST Laboratory Lab Mobile [place] [address] [place] [address] [facility] Mobile Home Draw [address] [place] [address] 01/04/2024 3:15 PM EST Office Visit Hematology/Oncology [facility] [address] [place] [address] Jitendra Aguero MD [address] [place] [address] 01/10/2024 10:40 AM EST Laboratory Lab Mobile Phlebotomy [facility] [address] [place] [address] [facility], [facility] Mobile Home Draw [address] [place] [address] 01/17/2024 10:40 AM EST Laboratory Lab [facility] [address] [place] [address] [facility], [facility] Mobile Home Draw [address] [place] [address] 01/24/2024 10:40 AM EDT Laboratory Lab Mobile Phlebotomy [facility] [address] [place] [address] [facility] Home Draw [address] [place] [address] 01/26/2024 2:00 PM EDT Immunization/Injectio n Hematology/Oncology Treatment, [place] [address] [place] [address] Nurse, Med [address] [place] [address] 01/31/2024 10:40 AM EDT Laboratory Lab Mobile Phlebotomy [facility] [address] [place] [address] [facility], [facility] Draw [address] [place] [address] 02/07/2024 10:40 AM EDT Laboratory Lab Mobile Ph[facility]botomy [facility] [address] [place] [address] [facility], [facility] Home Draw [address] [place] [address] 02/14/2024 10:40 AM EDT Laboratory Lab Mobile Phlebotomy C [address] [place] [address] [facility], [facility] Mobile Home Draw [address] [place] [address] 02/21/2024 10:40 AM EDT Laboratory Lab Mobile Phlebotomy C [address] [place] [address] [facility], [facility] Draw [address] [place] [address] 07/03/2024 1:30 PM EDT Imaging Radiology [address] [place] [address] 12/24/2024 2:30 PM EST Nurse Only Ancillary [address] [place] [address] [place], Nurse Annual Wellness [address] [place] [address] [place] [address] Scheduled Procedures Name Priority Associated Diagnoses Date/Ti [...] Screening 12/22/2024 12/22/2023 DXA Scan 06/13/2025 06/13/2023, 08/0 11/2022, 03/16/2015 DTaP,Tdap,and Td Vaccines (3 - Td or Tdap) 11/10/2026 11/10/2016, 03/30/2011 VITAMIN D LEVEL ONCE IN A LIFETIME-USE SMARTSET# [id number] Completed 05/11/2015 Zoster Vaccines Completed 10/30/2020, 02/2020, 07/13/2020, Additional history exists Pneumococcal Vaccine: 65+ Years Completed 06/10/2022, 01/06/2017, 10/09/2015, Additional history exists GARDASIL-HPV IMMUNIZATION SERIES Aged Out No longer eligible based on patient's age to complete this topic MENINGOCOCCAL (MENACTRA/MENVEO) Aged Out No longer eligible based on patient's age to complete this topic documented as of this encounter Medical Devices Implanted Type Area International Logistics Coordinator Device Identifier Shelf Expiration Date Model / Serial / Lot Port Pwr Mri Isp Profile - [id number] Implanted:Qty: 1 on 07/24/2020 by Akash Castillo MD at [facility] Right: Chest CR BARD : PERIPHERAL VASCULAR 04/12/2021 [id number] / / [id number] documented as of this encounter Advance Directives [...] the patient have Health Care Power of Guide Dog Instructor? No Code Status History Code Status Date Activated Date Inactivated Comments Full Code 07/27/2021 7:04 PM 07/31/2021 5:19 PM This order reflects the patients wishes and were consensually agreed upon. Question Answer Comments Discussion of Advance Directives occurred with: Patient Does the patient have a Living Will? No Does the patient have Health Care Power of Guide Dog Instructor? No Full Code 07/25/2021 12:43 PM 07/25/2021 11:03 PM Thi s order reflects the patients wishes and were consensually agreed upon. Question Answer Comments Discussion of Advance Directives occurred with: Patient/Family Does the patient have a Living Will? No Does the patient have Health Care Power of Guide Dog Instructor? No Full Code 06/12/2017 2:29 PM 06/12/2017 10:37 PM This order reflects the patients wishes and were consensually agreed upon. Question Answer Comments Discussion of Advance Directives occurred with: Not Discussed Does the patient have a Living Will? No Does the patient have Health Care Power of Guide Dog Instructor? No Healthcare Agents on File Name Relationship Healthcare Agent Relationshi p Communication Juanita Silva Adult Child Health Care Agent Care Teams Privacy Specialist Relationship Specialty Start Date End Date Dhruv Moss MD [address] [facility] [place] [address] PCP - General Family Medicine 08/27/21 documented as of this encounter
--- OUTSIDE RECORDS SUMMARY | 2024-02-26 04:35 | External Medical Summary ---
Author Name Unknown Address Unknown Organization K[facility] [address] [place] [address] Laboratory Report Ordering Provider Test Date Status ANN MUNGUIA 12/27/2023 11:00:00 Final Observation Date Value Abnormality Reference (Units ) Status Nucleated erythrocytes/100 leukocytes [Ratio] in Blood by Automated count 12/27/2023 11:00:00 Final Performing Location [facility] - [address] [place] [address]
--- OUTSIDE RECORDS SUMMARY | 2024-02-26 04:35 | External Medical Summary ---
Author Name Unknown Address Unknown Organization K01:[facility] [place] [place] - [facility] [place] [address] [facility] [address] [place] [address] Laboratory Report Ordering Provider Test Date Status ANN MUNGUIA 01/02/2024 14:49:23 Final Observation Date Value Abnormality Reference (Units ) Status WBC, Total 01/02/2024 14:49:23 8.28 4.00-10.80 (K/uL) Final RBC 01/02/2024 14:49:23 2.41 3.85-5.15 (M/uL) Final Hemoglobin 01/02/2024 14:49:23 10.0 Below low normal 12.0-15.3 (g/dL) Final HCT 01/02/2024 14:49:23 29.4 Below low normal 36.0-45.2 (%) Final MCV 01/02/2024 14:49:23 122.0 81.5-97.5 (fL) Final MCH 01/02/2024 14:49:23 41.5 27.0-34.0 (pg) Final MCHC 01/02/2024 14:49:23 34.0 32.0-36.0 (g/dL) Final RDW 01/02/2024 14:49:23 14.0 11.5-15.5 (%) Final Platelets 01/02/2024 14:49:23 13 Below lower panic limits 140-400 (K/uL) Final MPV 01/02/2024 14:49:23 11.2 6.6-11.1 (fL) Final Nucleated erythrocytes/100 leukocytes [Ratio] in Blood by Automated count 01/02/2024 14:49:23 0 <=0 (/100 WBCs) Final Performing Location [facility] [place] [place] - [facility] [place] [address] [place] [address]
--- OUTSIDE RECORDS SUMMARY | 2024-02-26 04:35 | External Medical Summary ---
Author Name Unknown Address Unknown Organization K01:[facility] - [address] [place] [address] Laboratory Report Ordering Provider Test Date Status ABDOULAYE MICHAUD 01/02/2024 14:49:23 Final Observation Date Value Abnormality Reference (Units ) Status T4, Free 01/02/2024 14:49:23 0.9 0.9-1.7 (n g/dL) Final Performing Location [facility] - [address] [place] [address]
--- OUTSIDE RECORDS SUMMARY | 2024-02-26 04:35 | External Medical Summary | Summary of Care ---
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 60 Tablet 3 12/09/2021 Active Orthocone Delica Lancets 30GIndications:Type 2 diabetes mellitus with hemoglobin A1c goal of less than 8.0% ([facility]) Use to test blood sugar three times a day DXe11.9 300 Each 3 12/16/2021 Active ReimageTouch Verio In Vitro Strip (Glucose Blood)Indications:T ype 2 diabetes mellitus with hemoglobin A1c goal of less than 8.0% ([facility]) Use to test blood sugar three times a day DXe11.9 300 Strip 3 12/16/2021 Active ReimageTouch Verio Flex System w/Device Kit Use as directed . 0 12/16/2021 Active Magnesium 100 MG Oral TabletIndications:s upplement Take 1 Tablet by mouth in the morning. Pt states every 3 days. 0 Active Acetaminophen 500 MG Oral Tablet Take 1 Tablet by mouth every 6 hours as needed. 0 Active Nystatin 025439 UNIT/GM External Cream Apply topically to affected [...] hemoglobin A1c goal of less than 8.0% ([facility]) Inject 8 units with breakfast, [...] 24 Hour (Imdur)Indications: 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,HTN, goal below 140/90 TAKE 1 TABLET BY MOUTH IN THE MORNING 90 Tablet 0 12/18/2023 Active Levemir 100 UNIT/ML Subcutaneous Solution (insulin Detemir)Indications :Type 2 diabetes mellitus with hemoglobin A1c goal of less than 8.0% ([facility]) Inject 18 Units under the skin at bedtime. 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 Does not have any evidence of lgmbs-xkjidg-wyvh disease Last Assessment & Plan: Continues to [...] -continue venlafaxine Coronary artery disease invo lving pamunkey coronary artery of pamunkey heart without angina pectoris 06/12/2017 Overview: S/P EDIL to LAD on 06/12/17 Last Assessment & Plan: No angina - Continue atorvastatin, isosorbide, metoprolol - no ASA due to thrombocytopenia Dyslipidemia, goal LDL below 70 11/25/2011 Last Assessment & Plan: Patient having no issues. She continues on Lipitor 40 mg daily Last lab I will was that I can find were from [phone] Assessment/plan: Dyslipidemia with patient currently taking Lipitor [...] mRNA, LNP-s, No Pre serve, 2-Dose Series ([employer]) 02/05/2021,01/08/2021 COVID-19, LNP-s, No Preserve , Ye-sucrose, [...] Date Smoking Tobacco: Never Smokeless Tobacco: Never Tobacco Cessation:Counseling Given: Not Answered Alcohol Use Standard Drinks/Week Comments No 0 [...] Sign Reading Time Taken Comments Blood Pressure 110/60 12/22/2023 3:34 PM EST Pulse 98 12/22/2023 3:34 PM EST Temperature 36 C (96.8 F) 12/22/2023 3:34 PM EST Respiratory Rate - - Oxygen Saturation 93% 12/22/2023 3:34 PM EST Inhaled Oxygen Concentration - - Weight 77.1 kg (170 lb) 12/22/2023 3:34 PM EST Height 167.6 cm (5' 6") 12/22/2023 3:34 PM EST Body Mass Index 27.44 12/22/2023 3:34 PM EST documented in this [...] No 08/27/2021 documented as of this encounter Patient Instructions * Patient Instructions* Margarita Caba RN - 12/22/2023 3:38 PM EST Patient Instructions - Fall Prevention (This education is for all patients over 65 regardless of symptoms) Remember to take your current medications as prescribed. In order to prevent falls, you are encouraged to: Exercise Utilize assistive/adaptive devices Avoid multifocal lenses when walking Avoid hazards in home Maintain a regular toileting schedule Any questions please contact our office. Preventing Falls in the Home (This education is for all patients over 65 regardless of symptoms) As you get older, falls are more likely. Thats because your reaction time slows. Your muscles and joints may also get stiffer, making them less flexible. Illness, medications, and vision changes can also affect your balance. A fall could leave you unable to live on your own. To make your home safer, follow these tips: Floors Put nonskid pads under area rugs Remove throw rugs Replace worn floor coverings Tack carpets firmly to each step on carpeted stairs. Put nonskid strips on the edges of uncarpeted stairs Keep floors and stairs free of clutter and cords Arrange furniture so there are clear pathways Clean up any spills right away Bathrooms Install grab bars in the tub or shower Apply nonskid strips or put a nonskid rubber mat in the tub or shower Sit on a bath chair to bathe Use bathmats with nonskid backing Lighting Keep a flashlight in each room Put a nightlight along the pathway between the bedroom and the bathroom [employer] Patient Education Copyright 2009 - 2010 [employer] except where otherwise noted Preventing Falls: Exercises to Improve Balance, Flexibility, Strength, and Staying Power (This education is for all patients over 65 regardless of symptoms) Certain types of exercises may help make you less likely to fall. Try the ones below. Or do other exercises that your healthcare provider suggests. Depending on your health, you may need to start slowly. Dont let that stop you. Even small amounts of exercise can help you. Be sure to talk to yourhealthcare provider before starting any exercise program. Improve Balance Many types of exercise can help improve balance. Kurt chi and yoga are good examples. Heres another one to try. You can do it anytime and almost anywhere. Stand next to a counter or solid support. Push yourself up onto your tiptoes. Hold for 5 seconds. If you start to lose your balance, hold on to the counter. Rest and repeat 5 times. Work up to holding for 20 to 30 seconds, if you can. Increase Flexibility Being more flexible makes it easier for you to move around safely. Try exercises like the seated hamstring stretch. Sit in a chair and put one foot on a stool. Straighten your leg and reach with both hands down either side of your leg. Reach as far down your leg as you can. Hold for about 20 seconds. Go back to the starting position. Then repeat 5 times. Switch legs. Build Strength Resistance exercises help build strength. You can do them without equipment. Or you can use weights, elastic bands, or special machines. One such exercise is called the biceps curl. You can hold a 1 pound weight or even a can of soup. Do this exercise at least 3 times a week. Strive for everyday. Sit up straight in a chair. Keep your elbow close to your body and your wrist straight. Bend your arm, moving your hand up to your shoulder. Then slowly lower your arm. Repeat 5 times. Switch to the other arm. Build Your Staying Power Aerobic exercises make your heart and lungs stronger so you can keep moving longer. Walking and swimming are two of the best types of exercises you can do. Using a stationary bike is great, too. Find an aerobic exercise that you enjoy. Start slowly and build up. Even 5 minutes is helpful. Aimfor a goal of 30 minutes, at least 3 times a week. You dont have to do 30 minutes in one session. Break it up and walk a little throughout the day. More Helpful Tips Start easy. Slowly work up to doing more. Talk with your healthcare provider about the best exercises for you. Call senior centers or health clubs about exercise programs. If needed, have a family member watch you walk every so often to check your stability. Exercise with a friend. Choose an activity you both enjoy. Try exercises that you can do anytime, anywhere. Here are two examples. Have someone with you when you first try these: Practice walking by placing one foot right in front of the other. Stand up and sit down 10 times. Repeat this throughout the day. [employer] Patient Education Copyright 2009 - 2010 [employer] except where otherwise noted. Preventing Falls: Moving Safely Using a Cane or Walker (This education is for all patients over 65 regardless of symptoms) Keep the cane away from your feet so you dont trip. A walking aid, such as a cane or walker, can help you stay more independent and avoid falls. Remember to keep your walking aid within easy reach when youre in a chair or in bed. And learn how to use it safely so you dont injure yourself. Using a Cane If you have a stronger side, hold the cane on that side. Get your balance. Move the cane and your weaker leg forward. Support your weight on both the cane and your weaker side. Step with your stronger leg. Start again from step 1. If youre using a folding walker, be sure you know how to lock it open. Check that its locked open before each use. Using a Walker Roll the walker (or lift it, if youre using one without wheels) forward about 12 inches. Step forward with your weaker leg first. Use the walker to help keep your balance. Bring your other foot forward to the center of the walker. Start again from step 1. Helpful Tips Check with your healthcare provider about the right walking aid to use. Ask about a walker with a seat attached. Check the tips of your cane or walker to make sure they have nonskid covers. Move slowly from room to room. Dont aj. Sit down to get dressed. Use a saul pack or backpack to keep your hands free. Get help for jobs that mean climbing, even on a stepstool. [employer] Patient Education Copyright 2008 - 2010 [employer] except where otherwise noted. Urinary Incontinence Plan of Care Documentation: (This education is for all patients over 65 regardless of symptoms) Current medications reconciled. Patient encouraged to: Practice kegal exercises Provide education materials Use the restroom every 2 hours throughout the day Limit caffeine, alcohol, spicy foods and acidic foods Keep a bladder diary Limit fluid intake 3-4 hours before bed Lose weight Prevent constipation Take fluid pills at a time when you can get to the bathroom quickly Control sugar better if diabetic Limit fluid intake to 60 oz. per day Wear support stockings (TEDs)if you have edema Margarita Caba RN 12/22/2023 Kegel Exercises Kegel exercises dont require special clothing or equipment. Theyre easy to learn and simple to do. And if you do them right, no one can tell youre doing them, so they can be done almost anywhere. Your doctor, nurse, or physical therapist can answer any questions you have and help you get started. A Weak Pelvic Floor The pelvic floor muscles may weaken due to aging, and vaginal childbirth, injury, surgery, chronic cough, or lack of exercise. If the pelvic floor is weak, your bladder and other pelvic organs may sag out of place. The urethra may also open too easily and allow urine to leak out. Kegel exercises can help you strengthen your pelvic floor muscles so they can better support the pelvic organs and control urine flow. How Kegel Exercises Are Done Try each of the Kegel exercises described below. When youre doing them, try not to move your leg, buttock, or stomach muscles. While youre urinating, try to stop the flow of urine. Start and stop it as often as you can. Contract as if you were stopping your urine stream, but do it when youre not urinating. Tighten your rectum as if trying not to pass gas. Contract your anus, but dont move your buttocks. Helpful Hints Do your Kegels as often as you can. The more you do them, the faster youll feel the results. Pick an activity you do often as a reminder. For instance, do your Kegels every time you sit down. Tighten your pelvic floor before you sneeze, get up from a chair, cough, laugh, or lift. This protects your pelvic floor from injury and can help prevent urine leakage. Try to hold each Kegel for a slow count to five. You probably wont be able to hold them for thatlong at first, but keep practicing. It will get easier as your pelvic floor gets stronger. Eventually, special weights that you place in your vagina may be recommended to help make your Kegels even more effective. [employer] Patient Education Copyright 2009 - 2010 [employer] except where otherwise noted. Here are some helpful tips for your urinary incontinence: (This education is for all patients over 65 regardless of symptoms) Practice Kegel exercises Use the restroom every 2 hours throughout the day Limit caffeine, alcohol, spicy foods, and acidic foods Keep a bladder diary Limit fluid intake 3-4 hours before bed Lose weight Prevent constipation Take fluid pills at a time when can get to the bathroom quickly Control sugar better if diabetic Limit fluid intake to 60 oz. per day Any questions, please feel free to contact our office. Hi Ms. Burger, As your primary care physician, I know that regular visits with my patients who have several chronic conditions can go a long way in helping you stay healthy. Many times, the clinic team and I are in touch with you and/or other care team members between office visits to adjust medications, discuss any changes in your health, and review our care plan to make sure it is still meeting your needs. I am dedicated to helping you take a more active role in your overall care. It is important that there are resources available to you, so I created a personalized plan of care with a Health Calendar for you, which is included on the next page of this letter. Below is a list that summarizes your electronic health record: Health Maintenance Due: Health Maintenance Due Topic Date Due Hepatitis B (1 of 3 - Risk 3-dose series) Never done Influenza Vaccine (FLU shot) (1) 07/14/2023 COVID-19 Vaccine (2022- season) 2023 *BISPHONATE OR OTHER ACCEPTABLE MEDICATION NEEDED FOR OSTEOPOROSIS (REFER TO SMARTSET #1146) Never done TSH 12/06/2023 Current Medication List: (as of 09/28/2017 (in office), 01/05/2021 (telemedicine) ) Current Outpatient Medications Medication Sig Dispense Refill BD Pen Needle Mini U/F 31G X 5 MM (Insulin Pen Needle) Use with xultophy once a day dx e11.9 100 Each 3 Diclofenac Sodium 1 % External Gel Apply topically to affected area . Apply to bilateral knees OneTouch Delica Lancets 30G Use to test blood sugar three times a day DXe11.9 300 Each 3 OneTouch Verio In Vitro Strip (Glucose Blood) Use to test blood sugar three times a day DXe11.9300 Strip 3 OneTouch Verio Flex System w/Device Kit Use as directed . Acetaminophen 500 MG Oral Tablet Take 1 Tablet by mouth every 6 hours as needed. Acyclovir 800 MG Oral Tablet (Zovirax) Take [...] 24 Hour (toPROL XL) Take 1 Tablet bymouth in the morning. 90 Tablet 3 Myrbetriq 50 MG Oral Tablet Extended Release 24 Hour (Mirabegron ER) Take 1 Tablet by mouth in the morning. 30 Tablet 11 Solifenacin Succinate 5 MG Oral Tablet (VESIcare) Take 1 Tablet by mouth in the morning. 30 Tablet 12 Amoxicillin-Pot Clavulanate 875-125 MG Oral Tablet (Augmentin) Take 1 Tablet by mouth in the morning and 1 Tablet before bedtime. Omeprazole 20 MG Oral Capsule Delayed Release (PriLOSEC) Take 1 capsule by mouth twice daily 180 Capsule 2 Levemir 100 UNIT/ML Subcutaneous Solution (insulin Detemir) Inject 18 Units under the skin at bedtime. (Patient taking differently: Inject 20 Units under the skin in the morning.) 30 mL 3 NovoLIN R 100 UNIT/ML Injection Solution (insulin REGULAR human) Inject 8 units with breakfast,4 units with lunch, and 6 units with dinner + sliding scale of 1 units per every 20 over 140 MAX DAILY DOSE 50 units 50 mL 5 Levothyroxine Sodium 75 MCG Oral Tablet (Levoxyl) TAKE ONE TABLET BY MOUTH daily first thing inthe morning at least 30 minutes prior to breakfast or other meds 90 Tablet 0 Venlafaxine HCl ER 150 MG Oral Capsule Extended Release 24 Hour (Effexor XR) TAKE ONE CAPSULE BY MOUTH EVERY DAY do not cut, crush, or chew 90 Capsule 0 Isosorbide Mononitrate ER 30 MG Oral Tablet Extended Release 24 Hour (Imdur) TAKE 1 TABLET BY MOUTH IN THE MORNING 90 Tablet 0 Cholecalciferol (VITAMIN D3) 5000 UNITS Tablet Take 1 Tablet by mouth in the morning. (Patient not taking: Reported on 12/22/2023) Ondansetron HCl 8 MG Oral Tablet Take 1 Tablet by mouth every 8 hours as needed for Nausea. 60 Tablet 3 Nitroglycerin 0.4 MG Sublingual Tablet Sublingual (Nitrostat) Place 1 Tablet under the tongue every 5 minutes as needed for Pain, Chest. up to 3 doses in 15 minutes (Patient taking differently: Place 1 Tablet under the tongue every 5 minutes as needed for Pain, Chest. up to 3 doses in 15 minutes) 25 Tablet 3 Prochlorperazine Maleate 10 MG Oral Tablet (Compazine) Take by mouth 1 Tablet every 6 hours as needed for Nausea. 60 Tablet 3 Magnesium 100 MG Oral Tablet Take 1 Tablet by mouth in the morning. Pt states every 3 days. (Patient not taking: Reported on 12/22/2023) Nystatin 306964 UNIT/GM External Cream Apply topically to affected area 2 times a day. Apply toaffected area twice a day for 7 days. 45 g 0 traMADol HCl 50 MG Oral Tablet (Ultram) Take 1 Tablet by mouth every 6 hours as needed for Other (pain). 30 Tablet 0 Premarin 0.625 MG/GM Vaginal Cream (Estrogens Conjugated) Administer 1 g into the vagina at bedtime. As directed. 42.5 g 5 Polyethylene Glycol 3350 17 GM/SCOOP Oral Powder (Miralax) Take 17 g by mouth in the morning. Current Facility-Administered Medications Medication Dose Route Frequency Provider Last Rate Last Admin NSS 0.9% 1,000 mL bolus infusion 1,000 mL Intravenous Daily PRN Chinmay Rodriguez PA-C 1,000mL at 12/08/21 1137 bevaCIZumab (Avastin) inj 1.25 mg 1.25 mg Intravitreal PRN Usama Torres MD 1.25 mg at05/12/23 1306 ROPivacaine (Naropin) inj 1.5 mg 1.5 mg Perineural PRN Usama Torres MD 1.5 mg at 05/12/23 1307 Current List of Allergies: (as of 09/28/2017 (in office), 01/05/2021 (telemedicine) ) Review of patient's allergies indicates: No Known Allergies Most Recent Lab Results: Results for orders placed or performed in visit on 12/20/23 CBC Result Value Ref Range WBC 6.31 4.00 - 10.80 K/uL RBC 2.44 3.85 - 5.15 M/uL HGB 10.1 (L) 12.0 - 15.3 g/dL HCT 29.8 (L) 36.0 - 45.2 % MCV 122.1 81.5 - 97.5 fL MCH 41.4 27.0 - 34.0 pg MCHC 33.9 32.0 - 36.0 g/dL RDW 14.3 11.5 - 15.5 % PLT 16 (LL) 140 - 400 K/uL MPV 9.4 6.6 - 11.1 fL nRBCs 0 <=0 /100 WBCs DIFFERENTIAL, TECHNOLOGIST REVIEW Result Value Ref Range WBC 6.31 4.00 - 10.80 K/uL Neutrophils % 25.0 (L) 40.0 - 75.0 % Lymphocytes % 60.0 (H) 18.0 - 42.0 % Monocytes % 7.0 1.0 - 11.0 % Eosinophils % 5.0 0.0 - 6.0 % Basophils % 1.0 0.0 - 2.0 % Blasts % 2.0 (H) <=0.0 % Absolute Neutrophils 1.58 (L) 1.80 - 7.70 K/uL Absolute Lymphocytes 3.79 1.00 - 4.80 K/uL Absolute Monocytes 0.44 0.00 - 1.10 K/uL Absolute Eosinophils 0.32 0.00 - 0.70 K/uL Absolute Basophils 0.06 0.00 - 0.20 K/uL Absolute Blasts 0.13 (H) <=0.00 K/uL Dyspoietic Neutrophils Present (A) None Seen Reactive Lymphocytes Present (A) None Seen Smudge Cells Present (A) None Seen *Note: Due to a large number of results and/or encounters for the requested time period, some results have not been displayed. A complete set of results can be found in Results Review. Sincerely, Dhruv Moss MD 12/22/2023 [facility] Calendar (as of 09/28/2017 (in office), 01/05/2021 (telemedicine) ) Care needs Care needs Last completed Due next Hepatitis B vaccine (1 of 3 - Risk 3-dose series) --- Never done Flu vaccine (recommended) (1) 07/17/2020 07/14/2023 COVID-19 Vaccine ( season) 2021 07/14/2023 Discuss medication for ostoporosis --- Never done Yearly thyroid level check 12/06/2022 12/06/2023 Colonoscopy - every 5 years 05/06/2019 05/06/2024 Diabetic Eye Exam 05/12/2023 05/12/2024 A1C blood sugar test 11/20/2023 05/20/2024 Diabetic Foot Exam 06/05/2023 06/05/2024 Kidney Function Test 06/07/2023 06/07/2024 Urine albumin/creatinine test 09/15/2023 09/15/2024 Bone Density 06/13/2023 06/13/2025 Diphtheria, tetanus & pertussis vaccines (3 - Td or Tdap) 11/10/2016 11/10/2026 As you look over the recommended services, be sure to check with your insurance company to determine what's covered. [employer] is a great tool that helps you review your medical record online, including test results, doctor notes and your health summary. You can also schedule appointments with me and other members of your care team, request prescription refills and ask for advice related to your medical conditions at [email or web address]. documented in this encounter Progress Notes * Margarita Caba RN - 12/22/2023 3:38 PM EST Fall Risk Plan of Care Documentation: - Current medications reconciled Patient encouraged to: - Exercise - Provide education materials for Core strengthening - Utilize assistive/adaptive devices - Provide education materials - Avoid multifocal lenses when walking - Avoid hazards in home - Provide education materials - Maintain a regular toileting schedule Margarita Caba RN 12/22/2023 Urinary Incontinence Plan of Care Documentation: (This education is for all patients over 65 regardless of symptoms) Current medications reconciled. Patient encouraged to: Practice kegal exercises Provide education materials Use the restroom every 2 hours throughout the day Limit caffeine, alcohol, spicy foods and acidic foods Keep a bladder diary Limit fluid intake 3-4 hours before bed Lose weight Prevent constipation Take fluid pills at a time when you can get to the bathroom quickly Control sugar better if diabetic Limit fluid intake to 60 oz. per day Wear support stockings (TEDs)if you have edema Margarita Caba RN [id number] Dementia Screening Interview Person answering questions: patient Remember, "Yes, a change" indicates that there has been a change in the last several years caused by cognitive (thinking and memory) problems 1. Problems with judgement (eg: problems making decisions, bad financial decisions, problems with thinking). No (0) 2. Less interest in hobbies/activities. No (0) 3. Repeats the same things over and over (questions, stories, or statements). Yes (1) 4. Trouble learning how to use a tool, appliance, or gadget (eg: VCR, computer, microwave, remote control). No (0) 5. Forgets correct month or year. No (0) 6. Trouble handling complicated financial affairs (eg: balancing checkbook, income taxes, paying bills). No (0) 7. Trouble remembering appointments. No (0) 8. Daily problems with thinking and/or memory. No (0) TOTAL AD8: 1 - AD8 Dementia Screening Score The final score is a sum of the number items marked "Yes, A Change". 0 - 1: Normal cognition; 2 or greater: Cognitive impairments is likely to be present - further testing required Adult Annual Wellness Visit: Ruth Burger is a 73 year old female who presents for an Adult Annual Wellness Visit. Depression Screening: Did the patient complete the screening questionnaire for Depression? Yes Is the patient's total score for Depression 15 or greater? No, no further intervention needed, unless requested by patient. Did the patient answer positively to the suicide question? No, no further intervention needed, unless requested by patient. In general, compared to other people your age, what would you say that your health is? Fair Ht Readings from Last 1 Encounters: 12/22/23 1.676 m (5' 6") Wt Readings from Last 1 Encounters: 12/22/23 77.1 kg (170 lb) Body Mass Index: BMI Less than 30 Body mass index is 27.44 kg/m. BP Readings from Last 1 Encounters: 12/22/23 110/60 Medical/Surgical/Family History Reviewed: Yes Past Medical History: Diagnosis Date Hager's palsy [...] performed by Robyn Bynum MD at ENDOSCOPY [facility] DILATION AND CURETTAGE (D&C) x 2 EGD, FLEXIBLE, DIAGNOSTIC N/A 10/22/2021 ESOPHAGOGASTRODUODENOSCOPY (EGD), FLEXIBLE, TRANSORAL, DIAGNOSTIC performed by Tom Rivera MD atENDOSCOPY [place] INFORMATION Bilateral AVASTIN CONSENT OU SIGNED; DR [...] performed by Akash Castillo MD at OR [facility] IR BIOPSY 08/30/2022 IR BIOPSY 03/20/2023 [...] FRACTURE(S), W/FIXATION Right 04/13/2023 Right cephalomedullary nail--Dr. Hubert SPINAL FUSION, LUMBAR, COMBINED 2012 Dr. Kelley Family History Problem Relation Age of Onset Diabetes Mother Heart Disorder Mother 69 [place] Heart Disorder Father 56 [place]; CHF Diabetes Father Heart disease Brother 73 [place] Diabetes Sister Diabetes Sister Diabetes Sister Alcohol and Other Disorders Associated Brother Heart Disorder Brother 59 [place] Diabetes Sister Cancer Sister multiple myeloma Cancer Sister breast Breast Cancer Sister Alzheimer's disease Sister Blood Disorder Brother ?missing factors from blood No Past Hx Daughter No Past Hx Son Eye Problems No significant family history Denies family hx Glaucoma No significant family history Denies family hx Has patient ever had cancer? 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 Social History Tobacco Use Smoking status: Never Smokeless tobacco: Never Substance Use Topics Alcohol use: No Vaping/E-Cigarette Use Vaping/E-Cigarette Use Never User Vaping/E-Cigarette Substances Vaping/E-Cigarette Devices Tobacco/Alcohol screening completed today? Yes Hospital Care: Admissions (within the last year): Hospital, Location: [facility] and [place] Date of Admission: 03/2023 and [place] ER within 30 days: No Does the patient have an Advance Directives/Living Will? Yes, patient will check with daughter and will scan into your chart. Last Physical Exam: Last physical exam: 05/2023 Does patient see primary provider regularly? Yes Does patient see other providers? Yes, Specialist Patient Care Team updated? Yes Review of patient's allergies indicates: No Known Allergies Immunization History Administered Date(s) Administered COVID-19 mRNA, LNP-s, No Preserve, 2-Dose Series (Pfizer) 01/08/2021, 02/05/2021 COVID-19, LNP-s, No Preserve, Ye-sucrose, Ages 12+ (Pfizer) 12/06/2021 Pneumococcal Conjugate Vacc, 13 Valent (Prevnar) 10/09/2015, 06/10/2022 Pneumococcal Polysaccharide PPV23 (Pneumovax) 03/30/2011, 01/06/2017 Seasonal Influenza Virus Vaccine, Unspecified Formulation 10/13/2009, 08/13/2010, 11/25/2011, 08/27/2012, 08/13/2013, 08/27/2013, 09/03/2014, 10/09/2015, 01/06/2017, 07/27/2017, 07/23/2018, 07/25/2019 Seasonal Influenza, PF, 6 M & above, IM , (FluLaval or Fluzone) 07/23/2018 Seasonal Influenza, Quadrivalent Hd, 65+ Yrs 07/13/2020, 07/17/2020 Seasonal Influenza, Quadrivalent, No Preserve, IM 10/09/2015, 01/06/2017, 07/27/2017 Seasonal Influenza, Split, IIV3, No Preserve, Inj 10/13/2009, 08/13/2010, 11/25/2011, 08/27/2013 Seasonal Influenza, Split, IIV3, With Preserve, Inj 08/13/2013, 09/03/2014 Seasonal Influenza, Trivalent, Adjuvanted, 65+ yrs 07/25/2019 TDAP (age 10 and older)(Boostrix) 11/10/2016 TDAP (age 11 and older)(Adacel) 03/30/2011 Zoster Vaccine Recombinant (Shingrix) 07/23/2018, 07/13/2020, 07/17/2020, 10/30/2020 Current Outpatient Medications Medication Sig Dispense Refill BD Pen Needle Mini U/F 31G X 5 MM (Insulin Pen Needle) Use with xultophy once a day dx e11.9 100 Each 3 Diclofenac Sodium 1 % External Gel Apply topically to affected area . Apply to bilateral knees OneTouch Delica Lancets 30G Use to test blood sugar three times a day DXe11.9 300 Each 3 OneTouch Verio In Vitro Strip (Glucose Blood) Use to test blood sugar three times a day DXe11.9 300Strip 3 OneTouch Verio Flex System w/Device Kit Use as directed . Acetaminophen 500 MG Oral Tablet Take 1 Tablet by mouth every 6 hours as needed. Acyclovir 800 MG Oral Tablet (Zovirax) Take [...] mouth in the morning. 30 Tablet 12 Amoxicillin-Pot Clavulanate 875-125 MG Oral Tablet (Augmentin) Take 1 Tablet by mouth in the morning and 1 Tablet before bedtime. Omeprazole 20 MG Oral Capsule Delayed Release (PriLOSEC) Take 1 capsule by mouth twice daily 180 Capsule 2 Levemir 100 UNIT/ML Subcutaneous Solution (insulin Detemir) Inject 18 Units under the skin at bedtime. (Patient taking differently: Inject 20 Units under the skin in the morning.) 30 mL 3 NovoLIN R 100 UNIT/ML Injection Solution (insulin REGULAR human) Inject 8 units with breakfast, 4 units with lunch, and 6 units with dinner + sliding scale of 1 units per every 20 over 140 MAX DAILY DOSE 50 units 50 mL 5 Levothyroxine Sodium 75 MCG Oral Tablet (Levoxyl) TAKE ONE TABLET BY MOUTH daily first thing in themorning at least 30 minutes prior to breakfast or other meds 90 Tablet 0 Venlafaxine HCl ER 150 MG Oral Capsule Extended Release 24 Hour (Effexor XR) TAKE ONE CAPSULE BY MOUTH EVERY DAY do not cut, crush, or chew 90 Capsule 0 Isosorbide Mononitrate ER 30 MG Oral Tablet Extended Release 24 Hour (Imdur) TAKE 1 TABLET BY MOUTHIN THE MORNING 90 Tablet 0 Cholecalciferol (VITAMIN D3) 5000 UNITS Tablet Take 1 Tablet by mouth in the morning. (Patient not taking: Reported on 12/22/2023) Ondansetron HCl 8 MG Oral Tablet Take [...] doses in 15 minutes) 25 Tablet 3 Prochlorperazine Maleate 10 MG Oral Tablet (Compazine) Take by mouth 1 Tablet every 6 hours as needed for Nausea. 60 Tablet 3 Magnesium 100 MG Oral Tablet Take 1 Tablet by mouth in the morning. Pt states every 3 days. (Patient not taking: Reported on 12/22/2023) Nystatin 054331 UNIT/GM External Cream Apply topically to affected area 2 times a day. Apply to affected area twice a day for 7 days. 45 g 0 traMADol HCl 50 MG Oral Tablet (Ultram) Take 1 Tablet by mouth every 6 hours as needed for Other (pain). 30 Tablet 0 Premarin 0.625 MG/GM Vaginal Cream (Estrogens Conjugated) Administer 1 g into the vagina at bedtime. As directed. 42.5 g 5 Polyethylene Glycol 3350 17 GM/SCOOP Oral Powder (Miralax) Take 17 g by mouth in the morning. Current Facility-Administered Medications Medication [...] Usama Torres MD 1.5 mg at 307 Patient Active Problem List Diagnosis Code Acquired hypothyroidism E03.9 Generalized osteoarthritis of multiple sites M15.9 Type 2 diabetes mellitus with hemoglobin A1c goal of less than 8.0% ([facility]) E11.9 Dyslipidemia, goal LDL below 70 E78.5 HTN, goal below 140/90 I10 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 I25.10 Insulin-requiring or dependent type II diabetes mellitus (HCC) E11.9, Z79.4 Recurrent major depressive disorder, in partial remission ([facility]) F33.41 Microalbuminuria due to type 2 diabetes mellitus ([facility]) E11.29, R80.9 MDS (myelodysplastic syndrome), high grade ([facility]) D46.Z Iron overload, transfusional E83.111 Gastro-esophageal reflux disease without esophagitis K21.9 Stem cells transplant status ([facility]) Z94.84 Hypomagnesemia E83.42 H/O allogeneic bone marrow transplant ([facility]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.81 Dehydration E86.0 Neuropathy due to chemotherapeutic drug ([facility]) G62.0, T45.1X5A Type 2 diabetes mellitus with retinopathy without macular edema ([facility]) E11.319 ACP (advance care planning) Z71.89 History of immunosuppression therapy Z92.25 Urinary incontinence R32 Myelodysplastic syndrome ([facility]) D46.9 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 Yes Patient takes medications as prescribed? Yes Patient manages own medications: Yes Patient uses a pill box? Yes, refill(s) completed by self Dental Exam: Yes: Every 6 Months Eye Screening: Yes: Every yearly but is going to see a new person, because her vision continues to get worse due to viral infection. Are you having trouble with hearing? No Do you use an assistive device to help your hearing? No Exercise Screening: does not exercise regularly Nutrition Assessment: may eat 2 meals a day, Pain Screening: Are you having any pain? Yes. Pain Scale: 8 out of 10; when walking or standing and zero when sitting. Sleep Screening Tool 'STOP': Do you snore? Yes Do you feel fatigued during the day? No Do you wake up feeling like you haven't slept? No Have you been told you stop breathing at night? No Do you gasp for air or choke while sleeping? No Have you been told you have Sleep Apnea? No Do you have high blood pressure or are on medication(s) to control high blood pressure? Yes SCORE: If you check YES to two or more questions, make a referral for Obstructive Sleep Apnea Declines temitope referral Patient and Caregiver Support System: Patient lives with a spouse Means of Transportation: Family transports Patient lives in One Story - with basement stairs: 10 basement, but doesn't go there Community Resources: food boxes from chart. Functional Status and ADL Skills: Has patient ever had an amputation? No Functional Assessment: 90- Able to carry on normal activity, minor symptoms of disease Ambulation: Patient ambulates with assistive device. Cane and Walker Dressing: Gets clothes and dresses without any assistance: Independent Able to move freely in chair or bed including turning over: Independent Repositioning (bed or chair): Not applicable Transfers: Independent Toileting: Goes to bathroom, uses toilet, arranges clothes and returns without any assistance: Independent Toileting: continent of bladder and continent of bowel Feeding: Self Bathing: Self; Shower Chair, tub and shower with grab bars Requires minimal assistance with ADLs. Instrumental ADL's: Shopping: Moderate Assistance Housekeeping: Minimal Assistance Handling Finances: Minimal Assistance DME Vendor Name: Not Applicable Fall Risk Assessment: Can the patient demonstrate that she can stand from a sitting position? Yes Has the patient had a fall within the last 6 months? Yes Does the patient have a problem with her gait or balance? Yes Does the patient take 4 or more prescription medicines? Yes Does the patient use sedatives or narcotics? No Fall Risk Factors Present: Uses more than 4 medications Uses assistive devices Balance or gait disturbances Lower extremity weakness Visually impaired Older than age 70 Dzh-Av-lxa-Go Test: Time began at 300. Patient stood from sitting position and walked approximately 10 feet, returned and sat down. Total time for hmx-at-aka-go test was 9 seconds. Atd-Fs-png-Go Test completed? Yes Gender Specific Preventative Plan: Health Maintenance Topic Date Due Hepatitis B (1 of 3 - Risk 3-dose series) Never done Influenza Vaccine (FLU shot) (1) 07/14/2023 COVID-19 Vaccine ( - 2022- season) 2023 *BISPHONATE OR OTHER ACCEPTABLE MEDICATION NEEDED FOR OSTEOPOROSIS (REFER TO SMARTSET #4350) Never done TSH 12/06/2023 COLONOSCOPY-EVERY 5 YRS AGES 18-100 05/06/2024 Diabetic Eye Exam 05/12/2024 HbA1c 05/20/2024 Diabetic Foot Exam 06/05/2024 GFR 06/07/2024 Albumin/Creatinine Ratio 09/15/2024 Depression Screening 12/22/2024 DXA Scan 06/13/2025 DTaP,Tdap,and Td Vaccines (3 - Td or Tdap) 11/10/2026 VITAMIN D LEVEL ONCE IN A LIFETIME-USE SMARTSET# [id number] Completed Zoster Vaccines Completed Pneumococcal Vaccine: 65+ Years Completed MENINGOCOCCAL (MENACTRA/MENVEO) Aged Out GARDASIL-HPV IMMUNIZATION SERIES Aged Out Follow Up/ Referrals/Handouts: Depression screening - completed Functional assessment - doing fine, disappointed that her stem cell transplant did not work Falls Risk screening - discussed and encouraged to use the cane Exercise screening - encourage to stay active and once hip and knee pain improve get back to walking Nutrition assessment -. Education Provided and Handouts Provided Pain screening - discussed, and patient to discuss at pcp appointment 01/02 Incontinence screening - patient had seen Dr. 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 Aguero and Dhurv Moss MD to see when she can start them again Risk and functional assessment (Primary) Routine general medical examination at a health care facility ACP (advance care planning) Advance Care Planning is important for all adults. Discussed the process of thinking and talking about future healthcare decisions.patient to go home, she thinks she does have a POA and Living will, she will speak to her daughter or is a [facility] nurse. Once form is found, patient to get a copy tous to scan into their chart. Acquired hypothyroidism - Med reconciliation completed and compliance discussed. - pt to continue present medications. Age-related osteoporosis without current pathological fracture - Med reconciliation completed and compliance discussed. - pt to continue present medications. 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 - Med reconciliation completed and compliance discussed. - pt to continue present medications. Dyslipidemia, goal LDL below 70 - Med reconciliation completed and compliance discussed. - pt to continue present medications. Lab Results Component Value Date/Time LDL CHOLESTEROL (CALCULATED) - [facility] 99 09/12/2022 10:09 AM LDL CHOLESTEROL (CALCULATED) - [facility] UNINTERPRETABLE RESULT 05/09/2019 09:06 AM LDL CHOLESTEROL (DIRECT MEASURE) - [facility] 93 11/03/2022 11:38 AM LDL CHOLESTEROL (DIRECT MEASURE) - [facility] 136 (H) 10/01/2020 03:24 PM LDL CHOLESTEROL-OUTSIDE LAB 119 (A) 09/26/2011 09:55 AM Gastro-esophageal reflux disease without esophagitis - Med reconciliation completed and compliance discussed. - pt to continue present medications. H/O allogeneic bone marrow transplant (HCC) -patient will follow up with Dr. Aguero HTN, goal below 140/90 - Med reconciliation completed and compliance discussed. - pt to continue present medications. BP Readings from Last 3 Encounters: 12/22/23 110/60 11/08/23 106/58 11/03/23 130/66 Insulin-requiring or dependent type II diabetes mellitus (HCC) - Med reconciliation completed and compliance discussed. - pt to continue present medications. MDS (myelodysplastic syndrome), high grade (HCC) Follow up with Dr. Aguero Microalbuminuria due to type 2 diabetes mellitus (HCC) Myelodysplastic syndrome (HCC) Neutropenia (HCC) Dr. Aguero did review last blood work on 12/20 and repeat in one wk, patient was already aware. Type 2 diabetes mellitus with retinopathy without macular edema (HCC) - Med reconciliation completed and compliance discussed. - pt to continue present medications. Hemoglobin AIC Results: Lab Results Component Value Date/Time HEMOGLOBIN A1C - [facility] 7.6 (H) 11/20/2023 01:19 PM HEMOGLOBIN A1C - [facility] 8.0 (H) 12/06/2022 12:02 PM HEMOGLOBIN A1C - [facility] 7.4 (H) 08/30/2022 09:40 AM HEMOGLOBIN A1C - [facility] 6.1 (H) 10/01/2020 03:24 PM HEMOGLOBIN A1C - [facility] 8.1 (H) 02/05/2020 10:48 AM HEMOGLOBIN A1C - [facility] 7.9 (H) 10/28/2019 12:42 PM Follow Up: Return in 1 year (on 12/22/2024) for 12 month Subsequent Adult Wellness Visit. | For: 12 month Subsequent Adult Wellness Visit | Check-out note: 12 month Subsequent Adult Wellness Visit Would patient like to schedule next AWV visit? Yes Margarita Caba RN documented in this encounter Miscellaneous Notes * ACP (Advance Care Planning) - Margarita Caba RN - 12/22/2023 4:25 PM EST Advance Care Planning Patient-centered Communication 12/22/2023 The patient/surrogate voluntarily agreed to participate in advance care planning discussion. They were advised that this is a separate service which may incur out of pocket cost in the form of copayment and/or deductibles. Location: Clinic Individual(s) present for conversation: Patient Decisions Synopsis SmartLink Most Recent Value Past ~10 years 03/23/2023 14:41 Decisions CPR decision: Patient chooses CPR 03/23/2023 Patient chooses CPR Intubation/Mechanical Ventilation decision: Patient chooses Intubation/mechanical ventilation 03/23/2023 Patient chooses Intubation/mechanical ventilation Non-invasive ventilation or BIPAP decision: Patient chooses non-invasive ventilation. Select interventions below 03/23/2023 Patient chooses non-invasive ventilation. Select interventions below Non-Invasive Ventilation Interventions: NIV 03/23/2023 NIV Antibiotic therapy decision: Patient chooses Antibiotic therapy 03/23/2023 Patient chooses Antibiotic therapy Artificial nutrition decision: Undecided about Artificial nutrition 03/23/2023 Undecided about Artificial nutrition IV hydration decision: Patient chooses IV hydration 03/23/2023 Patient chooses IV hydration Chemotherapy decision: Patient chooses Chemotherapy 03/23/2023 Patient chooses Chemotherapy Radiation therapy decision: Patient chooses Radiation therapy 03/23/2023 Patient chooses Radiation therapy Surgical procedure(s) decision: Undecided about Surgical procedure 03/23/2023 Undecided about Surgical procedure Blood transfusion decision: Patient chooses Blood transfusion 03/23/2023 Patient chooses Blood transfusion Lab draw decision: Patient chooses Lab draws 03/23/2023 Patient chooses Lab draws Dialysis decision: Undecided about Dialysis 03/23/2023 Undecided about Dialysis Additional Comments Synopsis SmartLink Most Recent Value Past ~10 years 12/22/2023 16:25 Additional Comments Additional Comments: Advance Care Planning is important for all adults. Discussed the process of thinking and talking about future healthcare decisions.patient to go home, she thinks she does have a POA and Living will, she will speak to her daughter or is a [facility] nurse. Once form is found, michael ent to get a copy to us to scan into their chart. 12/22/2023 Advance Care Planning is important for all adults. Discussed the process of thinking and talking about future healthcare decisions.patient to go home, she thinks she does have a POA and Living will, she will speak to her daughter or is a [facility] nurse. Once form is found, patient to get a copy to us to scan into their chart. Discerning What Matters Most to the Patient: Synopsis SmartLink Most Recent Value Past ~10 years 12/15/2021 14:50 Discerning What Matters Most to the Patient In their own words, patient's UNDERSTANDING of their illness is: I know I have cancer. There are days I feel good and then days I really can't do anything. 12/15/2021 I know I have cancer. There are days I feel good and then days I really can't do anything. Their current SYMPTOMS include: Tiredness;Drowsiness;Nausea;Lack of appetite;Anxiety 12/15/2021 Tiredness;Drowsiness;Nausea;Lack of appetite;Anxiety They say their illness has CHANGED THEIR LIFE by: Less enjoyment (quality of life);Feel like a burden to family/loved ones 12/15/2021 Less enjoyment (quality of life);Feel like a burden to family/loved ones Was PROGNOSIS discussed? No 12/15/2021 No The patient's HOPES are: Cure;Maintain current functional abilities;Avoid further hospitalization;Avoid the ICU;Avoid intubation/mechanical ventilation;Avoid the senior care;Avoid symptoms; with dignity (define below) 12/15/2021 Cure;Maintain current functional abilities;Avoid further hospitalization;Avoid the ICU;Avoid intubation/mechanical ventilation;Avoid the senior care;Avoid symptoms; with dignity (define below) with dignity, patient defines as: to not alone, not be a burden 12/15/2021 to not alone, not be a burden The patient's FEARS/WORRIES about illness are: Being a burden to family;Going back to the hospital;Going to a senior care;"Being a vegetable" (define below) 12/15/2021 Being a burden to family;Going back to the hospital;Going to a senior care;"Being a vegetable" (define below) "Being a vegetable", patient defines as: laying there without being able to do anything 12/15/2021 laying there without being able to do anything The patient's cultural or spiritual BELIEFS that may affect health care decisions: Islam deb 12/15/2021 Islam deb Source: Content from [facility] Aligning Care With What Matters Most: [employer] Most Recent Value Past ~10 years 03/23/2023 14:41 Aligning Care With What Matters Most Interventions/Choices: CPR;Intubation/mechanical ventilation;IV hydration;Chemotherapy;Radiation therapy;Dialysis;Non-invasive ventilation or BIPAP;Antibiotic therapy;Artificial nutrition;Blood transfusion;Lab draws;Surgical procedure 03/23/2023 CPR;Intubation/mechanical ventilation;IV hydration;Chemotherapy;Radiation therapy;Dialysis;Non-invasive ventilation or BIPAP;Antibiotic therapy;Artificial nutrition;Blood transfusion;Lab derrell ws;Surgical procedure Rationale for Decisions Synopsis SmartLink Most Recent Value Past ~10 years 12/15/2021 15:00 CPR They describe the benefits and burdens of CPR treatment as: broken ribs 12/15/2021 broken ribs Their goals for CPR treatment are: recovery 12/15/2021 recovery Unacceptable outcomes from CPR treatment are: being a vegetabe 12/15/2021 being a vegetabe Their fears/concerns about CPR decision are: being vegetable 12/15/2021 being vegetable Synopsis SmartLink Most Recent Value Past ~10 years 12/15/2021 15:00 Intubation/mechanical ventilation They describe the benefits and burdens of Intubation/mechanical ventilation treatment as: being in hospital 12/15/2021 being in hospital Their goals for Intubation/mechanical ventilation treatment are: recovery 12/15/2021 recovery Unacceptable outcomes from Intubation/mechanical ventilation treatment are: being a vegetable 12/15/2021 being a vegetable Their fears/concerns about Intubation/mechanical ventilation decision are: 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 [id number] Preventing Osteoporosis: Meeting Your Calcium Needs Your body needs calcium to build and repair bones. But it can't make calcium on its own. That's whyit's important to eat calcium-rich foods. Some foods are naturally rich in calcium. Others have calcium added (fortified). It's best to get calcium from the foods you eat. But if you can't get enough, you may want to take calcium supplements. To meet your daily calcium needs, try the foods listed below. Dairy Fish & beans Other sources Source Calcium (mg) per serving Source Calcium (mg) per serving Source Calcium (mg) per serving Low-fat yogurt, plain 415 mg/8 oz. Sardines, [place], canned, with bones 351 mg/3 oz. Oatmeal, instant, fortified 215 mg/1 cup Nonfat milk 302 mg/1 cup [place], sockeye, canned, with bones 239 mg/3 oz. Tofu made with calcium sulfate 204 mg/3 oz. Low-fat milk 297 mg/1 cup Soybeans, fresh, boiled 131 mg/1/2 cup Collards 179 mg/1/2 cup Pakistani cheese 272 mg/1 oz. White beans, cooked 81 mg/1/2 cup Malagasy muffin, whole wheat 175 mg/1 muffin Cheddar cheese 205 mg/1 oz. [place] beans, cooked 79 mg/1/2 cup Kale 90 mg/1/2 cup Ice cream strawberry 79 mg/1/2 cup [place], navel 56 mg/1 medium Note: Calcium levels may vary depending on brand and size. Daily calcium needs 14 to 18 years old: 1,300 mg 19 to 30 years old: 1,000 mg 31 to 50 years old: 1,000 mg 51 to 70 years old, women: 1,200 mg 51 to 70 years old, men: 1,000 mg or nursin to 18 years old: 1,300 mg, 19 to 50 years old: 1,000 mg Older than 70 (women and men): 1,200 mg Last Reviewed Date: 09/13/202119995161-4131 [employer]. All rights reserved. This information is not intended as a substitute for professional medical care. Always follow your healthcare professional's instructions. * Pt Handout (on AVS) - Margarita Caba RN - 12/22/2023 4:11 PM EST Images from the original note were not included. [id number] Understanding Carbohydrates A car needs the right type of fuel to run. And you need the right kind of food to function. To keepyour energy level up, your body needs food that has carbohydrates (carbs). But carbs raise blood sugar levels higher and faster than other kinds of food. Your dietitian will work with you to figure out the amount of carbs you need. Carbs come in 3 types: starches, sugars, and fiber. Starches Starches are found in grains, some vegetables, and beans. Grain products include bread, pasta, cereal, and tortillas. Starchy vegetables include potatoes, peas, corn, castellon beans, yams, and squash. Kidney beans, angulo beans, black beans, garbanzo beans, and lentils also have starches. Sugars Sugars are found naturally in many foods. Or they can be added. Foods that contain natural sugar include fruits and fruit juices, dairy products, honey, and molasses. Added sugars are found in most desserts, processed foods, candy, regular soda, and fruit drinks. These are very helpful to treat lowblood sugar (hypoglycemia). They give you sugar quickly. Try to keep at least 15 to 20 grams of these simple sugars with you at all times. Eat or drink these if you start to have symptoms of low blood sugar. Fiber Fiber comes from plant foods. Your body can't digest most fiber. Instead of raising blood sugar levels like other carbs, fiber stops blood sugar from rising too fast. Fiber is found in fruits, vegetables, whole grains, beans, peas, and many nuts. Carb counting Keep track of the amount of carbs you eat. This can help you keep the right balance of carbs, physical activity, and medicine. The amount of carbs you need will be different from what other people need. How much you need depends on many things. These include your health, the medicines you take, andhow active you are. Your healthcare team will help you figure out the right amount of carbs for you. You may start with 45 to 60 grams of carbs per meal, depending on your case. Carb counting is a system that helps you keep track of the carbohydrates you eat at each meal. Carbs come from many foods. These include grains, starchy vegetables, fruit, milk, beans, and snackfoods. You can either count carbohydrate grams or carbohydrate servings. When you count carbohydrate servings, 1 carbohydrate serving = 15 grams of carbohydrates. Here are some examples of foods that have about 15 grams of carbs (1 serving of carbohydrates): 1/2 cup of canned or frozen fruit A small piece of fresh fruit (4 ounces) 1 slice of bread 1/2 cup of oatmeal 1/3 cup of rice 4 to 6 crackers 1/2 Malagasy muffin 1/2 cup of black beans 1/4 of a large baked potato (3 ounces) 2/3 cup of plain fat-free yogurt 1 cup of soup 1/2 cup of casserole 6 chicken nuggets 1-cddt-ypldwy brownie or cake without frosting 2 small cookies 1/2 cup of ice cream or sherbet Carb counting is easier when food labels are available. Look at the label to see how many grams of total carbs per serving the food contains. Then you can figure out how much you should eat. If your food doesn't have a nutrition label, you should be able to get an idea how many carbs there are per serving by using a book or website. Two very important lines to look at on the label are the serving size and the total carbohydrate amount per serving. Here are some tips for using food labels to count your carbs: Check the serving size. The information on the label is based on that serving size. If you eat more than the listed serving size, you may have to double or triple the other information on the label. Check the total grams of carbs. Total carbohydrate from the label includes sugar, starch, and fiber. Be sure to use the total carbohydrate number (minus the fiber) and not sugar alone. Know how many grams of carbs you can have. Be familiar with the matching portion sizes. Compare labels. Compare the labels of different products. Look at serving sizes and total carbs to find the products that work best for you. Don't forget protein and fat. With the focus on carb counting, it might be easy to forget protein and fat in your meals. Don't forget to include sources of protein and healthy fat to balance your meals. Also watch how much salt (sodium) you eat. This is especially true if you have high blood pressure. If you have diabetes, limit the amount of sodium to less than 2,300 mg a day. It?s also important to be consistent with the amount of carbs and time you eat when taking a fixed dose of diabetes medicine. Work with your healthcare provider or dietitian if you need more help. They can help you keep track of your carbs. They can also help you figure out how many grams of carbs you should have. Last Reviewed Date: 10/13/202119993243-1821 [employer]. All rights reserved. This information is not intended as a substitute for professional medical care. Always follow your healthcare professional's instructions. * Pt Handout (on AVS) - Margarita Caba RN - 12/22/2023 4:11 PM EST Images from the original note were not included. [id number] 5 Steps for Eating Healthier Changing the way you eat can improve your health. It can lower your cholesterol and blood pressure,and help you stay at a healthy weight. Your diet doesn?t have to be bland and boring to be healthy.Just watch your calories and follow these steps: Step 1. Eat fewer unhealthy fats Choose more fish and lean meats instead of fatty cuts of meat. Skip butter and lard, and use less margarine. Replace these with healthier fats, such as olive, canola, or avocado oils. Pass on foods that have palm, coconut, or partially hydrogenated oils. Eat fewer high-fat dairy foods like cheese, ice cream, and whole milk. Get a heart-healthy cookbook and try some new recipes. Step 2. Go light on salt Keep the saltshaker off the table. Limit high-salt ingredients, such as soy sauce, bouillon, and garlic salt. Instead of adding salt when cooking, season your food with herbs, spices, and other flavorings. Try lemon, garlic, onion, vinegar, or salt-free herb seasonings. Limit convenience foods, such as boxed or canned foods and restaurant food. Read food labels and choose lower-sodium options. Buy fresh, frozen, or canned vegetables that don't have added salt. Step 3. Limit sugar Pause before you add sugars to pancakes, cereal, coffee, or tea. This includes white and brown table sugar, syrup, honey, and molasses. Cut your usual amount by half. Swap out sugar-filled soda and other drinks. Buy sugar-free or low-calorie beverages. Remember, water is always the best choice. Try adding lemon juice to water for extra flavor. Read labels and choose foods with less added sugar. Keep in mind that dairy foods and foods withfruit will have some natural sugar. Cut the sugar in recipes by 1/3 to 1/2. Boost the flavor with extracts like almond, vanilla, or orange. Or add spices such as cinnamon or nutmeg. Step 4. Eat more fiber Eat fresh fruits and vegetables every day. Boost your diet with whole grains. Go for oats, whole-grain rice, and bran. Add beans and lentils to your meals. Drink more water to match your fiber increase to help prevent constipation. Step 5. Pay attention to serving sizes Remember that a serving size is a standard measurement. It will let you track the amount of fat,calories, and other nutrients in the food you eat. Read the Nutrition Facts label on packaged foods to learn their serving sizes. Use serving sizes to assess how much food you put on your plate. Pay attention to your portions.How many servings are you eating? Keep in mind that your needs may change if you?re more active or less active, or if you have other factors that change your calorie needs. Use your hand to help you measure serving sizes. For example: o 1 teaspoon: This is about the size of the first joint of your thumb. o 1 tablespoon: This is about the size of the first 2 joints of your thumb. o 1 ounce: This is about what you can fit in your cupped hand. o 2 to 3 ounces: This is about the size of the palm of your hand. o cup: This is also about what you can fit in your cupped hand. o 1 cup: This is about the size of your fist. Last Reviewed Date: 10/13/202219997601-8250 [employer]. All rights reserved. This information is not intended as a substitute for professional medical care. Always follow your healthcare professional's instructions. documented in this encounter Plan of Treatment Upcoming Encounters Date Type Department Care Team (Late st Contact Info) Description 12/26/2023 11:15 AM EST Office [facility] [address] [place] [address] Jitendra Aguero MD [address] [place] [address] 12/27/2023 10:40 AM EST Laboratory Lab Mobile Phlebotomy [place] [address], [place] [id number] [facility] [place], [facility] Mobile Home Draw [address] [place] [address] 12/29/2023 12:30 PM EST Home Visit [facility], [facility] [address] [place] [address] Marisa Pacheco, TANYA [address] [place] [address] 01/02/2024 1:40 PM EST Office Visit Pharmacy, [address] [place] [phone] [place] [address] 01/02/2024 2:20 PM EST Office Visit Family Medicine [address] [place] [phone] Dhruv Moss MD [address] [place] [address] [place] [address] 01/03/2024 10:40 AM EST Laboratory Lab Mobile Phlebotomy [place] [address], [place] [id number] [facility] [place], [facility] Mobile Home Draw [address] [place] [address] 01/10/2024 10:40 AM EST Laboratory Lab Mobile [facility]lebotomy [place] [address] [place] [address] [facility] Draw [address] [place] [address] 01/17/2024 10:40 AM EST Laboratory Lab Mobile [facility]le[facility] [address] [place] [address] [facility] Mobile Home Draw [address] [place] [address] 01/24/2024 10:40 AM EDT Laboratory Lab Mobile [facility]lebotomy [place] [address] [place] [address] [facility] Mobile [facility] Draw [address] [place] [address] 01/26/2024 2:00 PM EDT Immunization/Injectio n Hematology/Oncology Treatment, [place] [address] [place] [address] Nurse, Med [address] [place] [address] 01/31/2024 10:40 AM EDT Laboratory Lab Mobile Phlebotomy [place] [address] [place] [address] [facility] Draw [address] [place] [address] 02/07/2024 10:40 AM EDT Laboratory Lab Mobile Phlebotomy [facility] [address] [place] [address] [facility] Mobile Home Draw [address] [place] [address] 02/14/2024 10:40 AM EDT Laboratory Lab Mobile Phlebotomy [facility] [address] [place] [address] [facility] Mobile Home Draw [address] [place] [address] 02/21/2024 10:40 AM EDT Laboratory Lab Mobile Phlebotomy [facility] [address] [place] [address] [facility] [place], [facility] Mobile Home Draw [address] [place] [address] 07/03/2024 1:30 PM EDT Imaging Radiology [address] [place] [address] 12/24/2024 2:30 PM EST Nurse Only Ancillary [address] [place] [address] [place], Nurse Annual [address] [place] [address] Scheduled Procedures Name Priority Associated Diagnoses Date/Ti [...] D LEVEL ONCE IN A LIFETIME-USE SMARTSET# [id number] Completed 05/11/2015 Zoster Vaccines Completed 10/30/2020, 02/2020, 07/13/2020, Additional history exists Pneumococcal Vaccine: 65+ Years Completed 06/10/2022, 01/06/2017, 10/09/2015, Additional history exists GARDASIL-HPV IMMUNIZATION SERIES Aged Out No longer eligible based on patient's age to complete this topic MENINGOCOCCAL (MENACTRA/MENVEO) Aged Out No longer eligible based on patient's age to complete this topic documented as of this encounter Medical Devices Implanted Type Area Finisher Operator Device Identifier Shelf Expiration Date Model / Serial / Lot Port Pwr Mri Isp Profile - [id number] Implanted:Qty: 1 on 07/24/2020 by Akash Castillo MD at OR [facility] Right: Chest CR BARD : PERIPHERAL VASCULAR 04/12/2021 [id number] / / [id number] documented as of this encounter Visit Diagnoses Diagnosis Risk and functional assessment- Primary Screening for unspecified condition Routine general medical examination at a health care facility ACP (advance care planning) Other specified counseling Acquired hypothyroidism Unspecified hypothyroidism Age-related osteoporosis without current pathological fracture Senile osteoporosis 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 Dyslipidemia, goal LDL below 70 Other and unspecified hyperlipidemia Gastro-esophageal reflux disease without esophagitis Esophageal reflux 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 HTN, goal below 140/90 Unspecified essential hypertension Insulin-requiring or dependent type II diabetes mellitus (HCC) Type II or unspecified type diabetes mellitus without mention of complication, not stated as uncontrolled MDS (myelodysplastic syndrome), high grade (HCC) High grade myelodysplastic syndrome lesions Microalbuminuria due to type 2 diabetes mellitus (HCC) Myelodysplastic syndrome (HCC) Myelodysplastic syndrome, unspecified Neutropenia (HCC) Neutropenia, unspecified 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 No Code Status History Code Status Date Activated Date Inactivated Comments Full Code 07/27/2021 7:04 PM 07/31/2021 5:19 PM This order reflects the patients wishes and were consensually agreed upon. Question Answer Comments Discussion of Advance Directives occurred with: Patient Does the patient have a Living Will? No Does the patient have Health Care Power of Claims Consultant? No Full Code 07/25/2021 12:43 PM 07/25/2021 11:03 PM Thi s order reflects the patients wishes and were consensually agreed upon. Question Answer Comments Discussion of Advance Directives occurred with: Patient/Family Does the patient have a Living Will? No Does the patient have Health Care Power of Claims Consultant? No Full Code 06/12/2017 2:29 PM 06/12/2017 10:37 PM This order reflects the patients wishes and were consensually agreed upon. Question Answer Comments Discussion of Advance Directives occurred with: Not Discussed Does the patient have a Living Will? No Does the patient have Health Care Power of Claims Consultant? No Healthcare Agents on File Name Relationship Healthcare Agent [facility] p Communication Juanita Bur Adult Child Health Care Agent Care Teams Marine Rigger Relationship Specialty Start Date End Date Dhruv Moss MD [address] [place] [address] [place] [id number] PCP - General Family Medicine 08/27/21 documented as of this encounter
--- OUTSIDE RECORDS SUMMARY | 2024-02-26 04:35 | External Medical Summary ---
Author Name Unknown Address Unknown Organization [id number]:LABORATORY [facility] [place] - [address] [place] [address] Laboratory Report Ordering Provider Test Date Status MASON VAZQUEZ 01/02/2024 14:49:23 Final Observation Date Value Abnormality Reference (Units ) Status MYCODE SPECIMEN-SST 01/02/2024 14:49:23 Freezing of extracted DNA, whole blood and/or serum. Final Performing Location LABORATORY C - [address] [place] [address]
--- OUTSIDE RECORDS SUMMARY | 2024-02-26 04:35 | External Medical Summary ---
Author Name Unknown Address Unknown Organization K0G:LABORATORY [place] [facility] - [address] [place] [address] Laboratory Report Ordering Provider Test Date Status ANN MUNGUIA 12/27/2023 11:00:00 Final Observation Date Value Abnormality Reference (Units ) Status WBC, Total 12/27/2023 11:00:00 5.61 4.00-10.80 (K/uL) Final RBC 12/27/2023 11:00:00 2.29 3.85-5.15 (M/uL) Final Hemoglobin 12/27/2023 11:00:00 9.3 Below low normal 12.0-15.3 (g/dL) Final HCT 12/27/2023 11:00:00 27.7 Below low normal 36.0-45.2 (%) Final MCV 12/27/2023 11:00:00 121.0 81.5-97.5 (fL) Final MCH 12/27/2023 11:00:00 40.6 27.0-34.0 (pg) Final MCHC 12/27/2023 11:00:00 33.6 32.0-36.0 (g/dL) Final RDW 12/27/2023 11:00:00 13.6 11.5-15.5 (%) Final Platelets 12/27/2023 11:00:00 13 Below lower panic limits 140-400 (K/uL) Final Results rechecked.

Consistent with previous results.
null MPV 12/27/2023 11:00:00 10.9 6.6-11.1 ( fL) Final [facility] [address] [place] [address]
--- OUTSIDE RECORDS SUMMARY | 2024-02-26 04:35 | External Medical Summary ---
Author Name Unknown Address Unknown [facility] [address] [place] [address] Laboratory Report Ordering Provider Test Date Status ANN MUNGUIA 12/27/2023 11:00:00 Final Observation Date Value Abnormality Reference (Units ) Status SYNC LEUKOCYTES IN BLOOD BY AUTOMATED COUNT 12/27/2023 11:00:00 5.61 4.00-10.80 (K/uL) Final Monos 12/27/2023 11:00:00 4.9 1.0-11.0 (%) Final Monos, Abs 12/27/2023 11:00:00 0.27 0.00-1.10 (K/uL) Final Performing Location [facility] - [address] [place] [address]
--- OUTSIDE RECORDS SUMMARY | 2024-02-26 04:35 | External Medical Summary ---
Author Name Unknown Address Unknown Organization K01:LABORATORY [facility] [place] - [address] [place] [address] Laboratory Report Ordering Provider Test Date Status MASON VAZQUEZ 01/02/2024 14:49:23 Final Observation Date Value Abnormality Reference (Units ) Status MYCODE SPECIMEN-SST 01/02/2024 14:49:23 Freezing of extracted DNA, whole blood and/or serum. Final Performing Location LABORATORY C - [address] [place] [address]
--- OUTSIDE RECORDS SUMMARY | 2024-02-26 04:36 | External Medical Summary | Summary of Care ---
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 0 5 Active BD Pen Needle Mini U/F 31G X 5 MM (Insulin Pen Needle)Indications: Type 2 diabetes mellitus with hemoglobin A1c goal of less than 8.0% ([facility]) Use with xultophy once a day dx [...] day DXe11.9 300 Each 3 2 Active [employer]Touch Verio In Vitro Strip (Glucose Blood)Indications:T ype 2 diabetes mellitus with hemoglobin A1c goal of less than 8.0% ([facility]) Use to test blood sugar three times a day DXe11.9 300 Strip 3 2 Active [employer]Touch Verio Flex System w/Device Kit Use as directed . 0 2 Active Magnesium 100 MG Oral TabletIndications:s upplement Take 1 Tablet by mouth in the morning. Pt states every 3 days. 0 Active Acetaminophen 500 MG Oral Tablet Take 1 Tablet by mouth every 6 hours as needed. 0 Active Nystatin 860663 UNIT/GM External Cream Apply topically to affected area 2 times a day. Apply to affected area twice a day for 7 days. 45 g 0 3 Active Acyclovir 800 MG Oral Tablet (Zovirax)Indication s:MDS (myelodysplastic syndrome), high grade (HCC) Take 1 Tablet by mouth in the morning and 1 Tablet before bedtime. 60 Tablet 10 06/19/202 3 Active Atorvastatin Calcium 40 MG Oral [...] at bedtime. 30 mL 3 3 Active NovoLIN R 100 UNIT/ML Injection Solution (insulin REGULAR human)Indications:T ype 2 diabetes mellitus with hemoglobin A1c goal of less than 8.0% ([facility]) Inject 8 units with breakfast, 4 units with lunch, and 6 units with dinner + sliding scale of 1 units per every 20 over 140 MAX DAILY DOSE 50 units 50 mL 5 3 Active Levemir 100 UNIT/ML Subcutaneous Solution (insulin Detemir)Indications :Type 2 diabetes mellitus with hemoglobin A1c goal of less than 8.0% ([facility]) Inject 18 Units under the skin at bedtime. 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 Date of Transplant: 09/01/2021 Conditioning Regimen: Fludarabine / Busulfan 2 with post-transplant Cytoxan ABO/Rh: A Positive CMV status: CMV Positive--- GRID: [id number] / DID: [id number] Matched Unrelated 10/24--- DPB1 Match ABO/Rh: A [...] Thrombocytopenia 12/06/2022 Last Assessment & Plan: Platelets 04998 on 03/20 Questionable hematuria Urinary incontinence 09/12/2022 [...] failure. Does not have any evidence of qiykr-qkaufl-zrba disease Last Assessment & Plan: Continues to [...] -continue venlafaxine Coronary artery disease invo lving shoalwater coronary artery of shoalwater heart without angina pectoris 06/12/2017 Overview: S/P EDIL to LAD on 06/12/17 Last Assessment & Plan: No angina - Continue atorvastatin, isosorbide, metoprolol - no ASA due to thrombocytopenia Dyslipidemia, goal LDL below 70 11/25/2011 Last Assessment & Plan: Patient having no issues. She continues on Lipitor 40 mg daily Last lab I will was that I can find were from [phone] Assessment/plan: Dyslipidemia with patient currently taking Lipitor [...] as of this encounter (statuses as of 12/18/2023) Resolved Problems Problem Noted Date Diagnosed Date [...] as of this encounter (statuses as of 12/18/2023) Immunizations Name Administration Dates Next Due COVID-19 [...] Miscellaneous Notes * Telephone Encounter - Dhruv Stanford MD - 12/18/2023 10:57 AM EST Signed Prescriptions: Disp Refills Isosorbide Mononitrate ER 30 MG Oral Table*90 Tab*0 Sig: TAKE 1 TABLET BY MOUTH IN THE MORNING Authorizing Provider: DHRUV STANFORD * Telephone Encounter - Earnestine Lopez CMA - 12/18/2023 8:41 AM ESTPending Prescriptions: Disp Refills Isosorbide Mononitrate ER 30 MG Oral Table*90 Tab*0 Sig: Take 1 Tablet by mouth in the morning. * Telephone Encounter - Earnestine Lopez CMA - 12/18/2023 8:39 AM EST Pending Prescriptions: Disp Refills Isosorbide Mononitrate ER 30 MG Oral Tabl*90 Tab*0 Sig: TAKE 1 TABLET BY MOUTH IN THE MORNING Last Visit: 10/28/2021 (in office), 02/06/2020 (telemedicine) Next Visit: Visit date not found Last date the medication was ordered: 05/01/2023 Patient Active Problem List Diagnosis Code Acquired hypothyroidism E03.9 Generalized osteoarthritis of multiple sites M15.9 Type 2 diabetes mellitus with hemoglobin A1c goal of less than 8.0% ([facility]) E11.9 Dyslipidemia, goal LDL below 70 E78.5 HTN, goal below 140/90 I10 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 I25.10 Insulin-requiring or dependent type II diabetes mellitus ([facility]) E11.9, Z79.4 Recurrent major depressive disorder, in partial remission ([facility]) F33.41 Microalbuminuria due to type 2 diabetes mellitus ([facility]) E11.29, R80.9 MDS (myelodysplastic syndrome), high grade ([facility]) D46.Z Iron overload, transfusional E83.111 Gastro-esophageal reflux disease without esophagitis K21.9 Stem cells transplant status ([facility]) Z94.84 Hypomagnesemia E83.42 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 Dehydration E86.0 Neuropathy due to chemotherapeutic drug ([facility]) G62.0, T45.1X5A Type 2 diabetes mellitus with retinopathy without macular edema ([facility]) E11.319 ACP (advance care planning) Z71.89 History of immunosuppression therapy Z92.25 Urinary incontinence R32 Myelodysplastic syndrome ([facility]) D46.9 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 ([facility]) E11.3313 ILD (interstitial lung disease) ([facility]) J84.9 Thrombocytopenia ([facility]) D69.6 Acute cystitis without hematuria N30.00 Symptomatic stenosis of right carotid artery without infarction I65.21 Neutropenia ([facility]) D70.9 S/P right hip fracture Z87.81 Age-related osteoporosis without current pathological fracture M81.0 Labs: Lab Results Component Value Date/Time CREATININE - [facility] 0.8 06/07/2023 08:13 AM CREATININE - [facility] 0.7 12/10/2020 12:29 PM CREATININE, RANDOM URINE - [facility] 68 09/15/2023 08:06 AM CREATININE, RANDOM URINE - [facility] 174 10/29/2019 04:17 PM Lab Results Component Value Date/Time POTASSIUM - [facility] 4.5 06/07/2023 08:13 AM POTASSIUM - [facility] 4.4 12/10/2020 12:29 PM Lab Results Component Value Date/Time TSH - [facility] 2.60 12/06/2022 12:02 PM TSH - [facility] 6.85 (H) 10/30/2020 09:28 AM Lab Results Component Value Date/Time LDL CHOLESTEROL (CALCULATED) - [facility] 99 09/12/2022 10:09 AM LDL CHOLESTEROL (CALCULATED) - [facility] UNINTERPRETABLE RESULT 05/09/2019 09:06 AM LDL CHOLESTEROL (CALCULATED) - [facility] 94 08/13/2018 08:32 AM LDL CHOLESTEROL (DIRECT MEASURE) - [facility] 93 11/03/2022 11:38 AM LDL CHOLESTEROL (DIRECT MEASURE) - [facility] 100 06/08/2022 08:08 AM LDL CHOLESTEROL (DIRECT MEASURE) - [facility] 136 (H) 10/01/2020 03:24 PM LDL CHOLESTEROL (DIRECT MEASURE) - [facility] 60 05/09/2019 09:06 AM LDL CHOLESTEROL (DIRECT MEASURE) - [facility] NOT APPLICABLE 08/13/2018 08:32 AM LDL CHOLESTEROL (DIRECT MEASURE) - [facility] 113 12/10/2012 07:25 AM LDL CHOLESTEROL-OUTSIDE [facility] 119 (A) 09/26/2011 09:55 AM LDL CHOLESTEROL-OUTSIDE LAB 90 06/27/2010 09:28 AM Lab Results Component Value Date/Time ALT - [facility] 30 06/07/2023 08:13 AM ALT - [facility] 25 12/10/2020 12:29 PM Hemoglobin AIC Results: Lab Results Component Value Date/Time HEMOGLOBIN A1C - [facility] 7.6 (H) 11/20/2023 01:19 PM HEMOGLOBIN A1C - [facility] 8.0 (H) 12/06/2022 12:02 PM HEMOGLOBIN A1C - [facility] 7.4 (H) 08/30/2022 09:40 AM HEMOGLOBIN A1C - [facility] 6.1 (H) 10/01/2020 03:24 PM HEMOGLOBIN A1C - [facility] 8.1 (H) 02/05/2020 10:48 AM HEMOGLOBIN A1C - [facility] 7.9 (H) 10/28/2019 12:42 PM * Telephone Encounter - Sharon Huizar COT - 12/18/2023 8:33 AM ESTPending Prescriptions: Disp Refills Isosorbide Mononitrate ER 30 MG Oral Table*90 Tab*0 Sig: Take 1 Tablet by mouth in the morning. * Telephone Encounter - Sharon Huizar COT - 12/18/2023 8:32 AM EST Patient has not been seen by cardiology since 2020 and has not responded to attempts to schedule. Defer to PCP for refills/follow up. documented in this encounter Plan of Treatment Upcoming Encounters Date Type Department Care Team (Late st Contact Info) Description 12/20/2023 10:40 AM EST Laboratory Lab Mobile Phlebotomy [facility] [address] [place] [address] [facility] Mobile Home Draw [address] [place] [address] 12/22/2023 3:00 PM EST Nurse Only Ancillary [address] [place] [address] Valentinoey, Nurse [address] [place] [address] 12/26/2023 11:15 AM EST Office Visit Hematology/Oncology [facility] [address] [place] [address] Jitendra Aguero MD [address] [place] [address] 12/27/2023 10:40 AM EST Laboratory Lab Mobile Phlebotomy [facility] [address], [place] [id number] [facility] Mobile Home Draw [address] [place] [address] 12/29/2023 12:30 PM EST [facility] [place] [address] Marisa Pacheco, TANYA [facility] [place] [address] 01/02/2024 1:40 PM EST Office Visit Pharmacy, [address] [place] [address] [place] [address] 01/02/2024 2:20 PM EST Office Visit Family Medicine [address] [place] [phone] Dhruv Stanford MD [address] [place] [address] [place] [address] 01/03/2024 10:40 AM EST Laboratory Lab Mobile Phlebotomy [facility] [address] [place] [address] [facility] Mobile Home Draw [address] [place] [address] 01/10/2024 10:40 AM EST Laboratory Lab Mobile Phlebotomy [facility] [address] [place] [address] [facility] Draw [address] [place] [address] 01/17/2024 10:40 AM EST Laboratory Lab Mobile Phlebot[facility] [address] [place] [address] [facility] Draw [address] [place] [address] 01/24/2024 10:40 AM EDT Laboratory Lab Mobile Phlebotomy [facility] [address] [place] [address] [facility], [facility] Mobile Home Draw [address] [place] [address] 01/26/2024 2:00 PM EDT Immunization/Injectio n Hematology/Oncology Treatment, [place] [facility] [address] [place] [address] Nurse, Med [address] [place] [address] 01/31/2024 10:40 AM EDT Laboratory Lab Mobile Phlebotomy [facility] [address] [place] [address] [facility] Draw [address] [place] [address] 02/07/2024 10:40 AM EDT Laboratory Lab Mobile Phlebotomy [facility] [address] [place] [address] [facility] Home Draw [address] [place] [address] 02/14/2024 10:40 AM EDT Laboratory Lab Mobile Phlebotomy [facility] [address] [place] [address] [facility] Mobile Home Draw [address] [place] [address] 02/21/2024 10:40 AM EDT Laboratory Lab Mobile Phlebotomy [facility] [address] [place] [address] [facility] Mobile Home Draw [address] [place] [address] 07/03/2024 1:30 PM EDT Imaging Radiology [address] [place] [address] Scheduled Procedures Name Priority Associated Diagnoses Date/Ti [...] D LEVEL ONCE IN A LIFETIME-USE SMARTSET# [id number] Completed 05/11/2015 Zoster Vaccines Completed 10/30/2020, 02/2020, 07/13/2020, Additional history exists Pneumococcal Vaccine: 65+ Years Completed 06/10/2022, 01/06/2017, 10/09/2015, Additional history exists GARDASIL-HPV IMMUNIZATION SERIES Aged Out No longer eligible based on patient's age to complete this topic MENINGOCOCCAL (MENACTRA/MENVEO) Aged Out No longer eligible based on patient's age to complete this topic documented as of this encounter Medical Devices Implanted Type Area Regulatory Affairs Intern Device Identifier Shelf Expiration Date Model / Serial / Lot Port Pwr Mri Isp Profile - [id number] Implanted:Qty: 1 on 07/24/2020 by Akash Castillo MD at OR [facility] Right: Chest CR BARD : PERIPHERAL VASCULAR 04/12/2021 [id number] / / [id number] documented as of this encounter Visit Diagnoses Diagnosis 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 Question Answer Comments Discussion of Advance Directives occurred with: Patient/Family Does the patient have a Living Will? No Does the patient have Health Care Power of Pulp House Supervisor? No Code Status History Code Status Date Activated Date Inactivated Comments Full Code 07/27/2021 7:04 PM 07/31/2021 5:19 PM This order reflects the patients wishes and were consensually agreed upon. Question Answer Comments Discussion of Advance Directives occurred with: Patient Does the patient have a Living Will? No Does the patient have Health Care Power of Pulp House Supervisor? No Full Code 07/25/2021 12:43 PM 07/25/2021 11:03 PM Thi s order reflects the patients wishes and were consensually agreed upon. Question Answer Comments Discussion of Advance Directives occurred with: Patient/Family Does the patient have a Living Will? No Does the patient have Health Care Power of Pulp House Supervisor? No Full Code 06/12/2017 2:29 PM 06/12/2017 10:37 PM This order reflects the patients wishes and were consensually agreed upon. Question Answer Comments Discussion of Advance Directives occurred with: Not Discussed Does the patient have a Living Will? No Does the patient have Health Care Power of Pulp House Supervisor? No Healthcare Agents on File Name Relationship Healthcare Agent Relationshi p Communication Juanita Silva Adult Child Health Care Agent Care Teams Spar Machine Operator Helper Relationship Specialty Start Date End Date Dhruv Stanford MD [address] [place] [id number] PCP - General Family Medicine 08/27/21 documented as of this encounter
--- OUTSIDE RECORDS SUMMARY | 2024-02-26 04:36 | External Medical Summary | Summary of Care ---
Author Name Unknown Organization [facility] Address [address] [address] Phone [phone] Care Team Providers Care Insecticide Supervisor Name Role Phone Dhruv Moss MD Primary Care Provide r Encounter Details Date Type Department Care Team (Late st Contact Info) Description 12/19/2023 Orders Only PATIENT PORTAL DO NOT DELETE THIS DEPT USED BY [place] [address] Allergies No known active allergiesdocumented as of this encounter (statuses as of 12/19/2023) Medications Medication Sig Dispensed Refills Start Date [...] for Nausea. 60 Tablet 3 12/09/2021 Active Clifford Thames [employer]Media Redefined Lancets 30GIndications:Type 2 diabetes mellitus with hemoglobin A1c goal of less than 8.0% ([facility]) Use to test blood sugar three times a day DXe11.9 300 Each 3 12/16/2021 Active Celles In Vitro Strip (Glucose Blood)Indications:Ty pe 2 diabetes mellitus with hemoglobin A1c goal of less than 8.0% ([facility]) Use to test blood sugar three times a day DXe11.9 300 Strip 3 12/16/2021 Active Celles Flex System w/Device Kit Use as directed . 0 12/16/2021 Active Magnesium 100 MG Oral TabletIndications:bowers pplement Take 1 Tablet by mouth in the morning. Pt states every 3 days. 0 Active Acetaminophen 500 MG Oral Tablet Take 1 Tablet by mouth every 6 hours as needed. 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 Date of Transplant: 09/01/2021 Conditioning Regimen: Fludarabine / Busulfan 2 with post-transplant Cytoxan ABO/Rh: A Positive CMV status: CMV Positive--- GRID: [id number] / DID: [id number] Matched Unrelated 10/24--- DPB1 Match ABO/Rh: A [...] Thrombocytopenia 12/06/2022 Last Assessment & Plan: Platelets 97984 on 03/20 Questionable hematuria Urinary incontinence 09/12/2022 [...] failure. Does not have any evidence of cuofu-lkqkmk-ccml disease Last Assessment & Plan: Continues to [...] -continue venlafaxine Coronary artery disease invo lving [place] coronary artery of [place] heart without angina pectoris 06/12/2017 Overview: S/P EDIL to LAD on 06/12/17 Last Assessment & Plan: No angina - Continue atorvastatin, isosorbide, metoprolol - no ASA due to thrombocytopenia Dyslipidemia, goal LDL below 70 11/25/2011 Last Assessment & Plan: Patient having no issues. She continues on Lipitor 40 mg daily Last lab I will was that I can find were from [id number] Assessment/plan: Dyslipidemia with patient currently taking Lipitor [...] as of this encounter (statuses as of 12/19/2023) Resolved Problems Problem Noted Date Diagnosed Date [...] as of this encounter (statuses as of 12/19/2023) Immunizations Name Administration Dates Next Due COVID-19 mRNA, LNP-s, No Pre serve, 2-Dose Series ([employer]) 02/05/2021,01/08/2021 COVID-19, LNP-s, No Preserve , Ye-sucrose, [...] 10:40 AM EST Laboratory Lab Mobile Phlebotomy [facility] [address] [facility] [place] [address] [facility] [place], l Mobile Home Draw [address] [place] [address] 12/22/2023 3:00 PM EST Nurse Only Ancillary [address] [place] [address] [place], Nurse [address] [place] [address] 12/26/2023 11:15 AM EST Office Visit Hematology/Oncology [facility] [address] [facility] [place] [address] Jitendra Aguero MD [address] [place] [address] 12/27/2023 10:40 AM EST Laboratory Lab Mobile Phlebotomy [facility] [address] [facility] [place] [address] [facility] [place], [facility] Mobile Home Draw [address] [facility] [place] [address] 12/29/2023 12:30 PM EST Home Visit [facility] [address] [facility] [place] [address] Marisa Pacheco RN [address] [place] [address] 01/02/2024 1:40 PM EST Office Visit Pharmacy, [address] [place] [address] [place] [address] 01/02/2024 2:20 PM EST Office Visit Family Medicine [address] [place] [address] Dhruv Moss MD [address] [place] [address] [place] [address] 01/03/2024 10:40 AM EST Laboratory Lab Mobile Phlebotomy [facility] [address] [place] [address] [facility] [place], Gml Mobile Home Draw [address] [place] [address] 01/10/2024 10:40 AM EST Laboratory Lab Mobile Phlebotomy [facility] [address] [place] [address] [facility] [place], Gml Mobile Home Draw [address] [place] [address] 01/17/2024 10:40 AM EST Laboratory Lab Mobile Phlebotomy [facility] [address] [place] [address] [facility] [place], Gml Mobile Home Draw [address] [place] [address] 01/24/2024 10:40 AM EDT Laboratory Lab Mobile Phlebotomy [facility] [address] [place] [address] [facility] [place], l Mobile Home Draw [address] [place] [address] 01/26/2024 2:00 PM EDT Immunization/Injectio n Hematology/Oncology Treatment, [place] [address] [place] [address] Nurse, Med 4 [address] [facility] [place], [place] [address] 01/31/2024 10:40 AM EDT Laboratory Lab Mobile Phlebotomy C [address] [place] [address] [facility], Gml Mobile Home Draw [address] [place] [address] 02/07/2024 10:40 AM EDT Laboratory Lab Mobile Phlebotomy C [address] [place] [address] [facility], [facility] Mobile Home Draw [address] [place] [address] 02/14/2024 10:40 AM EDT Laboratory Lab Mobile Phlebotomy [facility] [address] [place] [address] [facility], Gml Mobile Home Draw [address] [place] [address] 02/21/2024 10:40 AM EDT Laboratory Lab Mobile Phlebotomy [facility] [address] [place] [address] [facility], Gml Mobile Home Draw [address] [place] [address] 07/03/2024 1:30 PM EDT Imaging Radiology [address] [place] [address] Scheduled Procedures Name Priority Associated Diagnoses Date/Ti [...] D LEVEL ONCE IN A LIFETIME-USE SMARTSET# 96306 Completed 05/11/2015 Zoster Vaccines Completed 10/30/2020, 02/2020, 07/13/2020, Additional history exists Pneumococcal Vaccine: 65+ Years Completed 06/10/2022, 01/06/2017, 10/09/2015, Additional history exists GARDASIL-HPV IMMUNIZATION SERIES Aged Out No longer eligible based on patient's age to complete this topic MENINGOCOCCAL (MENACTRA/MENVEO) Aged Out No longer eligible based on patient's age to complete this topic documented as of this encounter Medical Devices Implanted Type Area Cafe Attendant Device Identifier Shelf Expiration Date Model / Serial / Lot Port Pwr Mri Isp Profile - [id number] Implanted:Qty: 1 on 07/24/2020 by Akash Castillo MD at OR [facility] Right: Chest CR BARD : PERIPHERAL VASCULAR 04/12/2021 [id number] / / [id number] documented as of this encounter Advance Directives [...] the patient have Health Care Power of Clerk Guide? No Code Status History Code Status Date Activated Date Inactivated Comments Full Code 07/27/2021 7:04 PM 07/31/2021 5:19 PM This order reflects the patients wishes and were consensually agreed upon. Question Answer Comments Discussion of Advance Directives occurred with: Patient Does the patient have a Living Will? No Does the patient have Health Care Power of Clerk Guide? No Full Code 07/25/2021 12:43 PM 07/25/2021 11:03 PM Thi s order reflects the patients wishes and were consensually agreed upon. Question Answer Comments Discussion of Advance Directives occurred with: Patient/Family Does the patient have a Living Will? No Does the patient have Health Care Power of Clerk Guide? No Full Code 06/12/2017 2:29 PM 06/12/2017 10:37 PM This order reflects the patients wishes and were consensually agreed upon. Question Answer Comments Discussion of Advance Directives occurred with: Not Discussed Does the patient have a Living Will? No Does the patient have Health Care Power of Clerk Guide? No Healthcare Agents on File Name Relationship [facility] Agent [facility] Adult Child Health Care Agent Care Teams Insecticide Supervisor Relationship Specialty Start Date End Date Dhruv Moss MD [address] [place] [address] [place] [address] PCP - General Family Medicine 08/27/21 documented as of this encounter
--- OUTSIDE RECORDS SUMMARY | 2024-02-26 04:36 | External Medical Summary ---
Author Name Unknown Address Unknown Organization K01:[facility] [address] [place] [address] Laboratory Report Ordering Provider Test Date Status ANN MUNGUIA 12/20/2023 08:15:00 Final Observation Date Value Abnormality Reference (Units ) Status WBC, Total 12/20/2023 08:15:00 6.31 4.00-10.80 (K/uL) Final RBC 12/20/2023 08:15:00 2.44 3.85-5.15 (M/uL) Final Hemoglobin 12/20/2023 08:15:00 10.1 Below low normal 12.0-15.3 (g/dL) Final HCT 12/20/2023 08:15:00 29.8 Below low normal 36.0-45.2 (%) Final MCV 12/20/2023 08:15:00 122.1 81.5-97.5 (fL) Final MCH 12/20/2023 08:15:00 41.4 27.0-34.0 (pg) Final MCHC 12/20/2023 08:15:00 33.9 32.0-36.0 (g/dL) Final RDW 12/20/2023 08:15:00 14.3 11.5-15.5 (%) Final Platelets 12/20/2023 08:15:00 16 Below lower panic limits 140-400 (K/uL) Final MPV 12/20/2023 08:15:00 9.4 6.6-11.1 (fL) Final Nucleated erythrocytes/100 leukocytes [Ratio] in Blood by Automated count 12/20/2023 08:15:00 0 <=0 (/100 WBCs) Final Performing Location [facility] [place] [address] [place] [address]
--- OUTSIDE RECORDS SUMMARY | 2024-02-26 04:36 | External Medical Summary | Summary of Care ---
Author Name Unknown Organization [facility] Address [address] [place] [address] Phone [phone] Care Team Providers Care Final Inspector Balance Wheel Name Role Phone Dhruv Moss MD Primary Care Provide r Reason for Visit * Reason Comments Procedure Port flush Encounter Details Date Type Department Care Team (Late st Contact Info) Description 12/15/2023 2:00 PM EST Immunization/I njection Hematology/Oncology Treatment, [place] [address] [place] [address] Nurse, Med [address] [place] [address] MDS (myelodysplastic syndrome), high grade (HCC)*; Hypomagnesemia; H/O allogeneic bone marrow transplant (HCC); Dehydration Allergies No known active allergiesdocumented as of this encounter (statuses as of 12/15/2023) Medications Medication Sig Dispensed Refills Start Date End Date Status Cholecalciferol (VITAMIN D3) 5000 UNITS TabletIndications:bowers pplement Take 1 Tablet by mouth in the morning. 0 05/14/2015 Active BD Pen Needle Mini U/F 31G X 5 MM (Insulin Pen Needle)Indications:T ype 2 diabetes mellitus with hemoglobin A1c goal of less than 8.0% ([facility]) Use with xultophy once a day [...] for Nausea. 60 Tablet 3 12/09/2021 Active locrToCheckBonus Delica Lancets 30GIndications:Type 2 diabetes mellitus with hemoglobin A1c goal of less than 8.0% ([facility]) Use to test blood sugar three times a day DXe11.9 300 Each 3 12/16/2021 Active locrTouch Verio In Vitro Strip (Glucose Blood)Indications:Ty pe 2 diabetes mellitus with hemoglobin A1c goal of less than 8.0% ([facility]) Use to test blood sugar three times a day DXe11.9 300 Strip 3 12/16/2021 Active locrToCheckBonus Verio Flex System w/Device Kit Use as directed . 0 12/16/2021 Active Magnesium 100 MG Oral TabletIndications:bowers pplement Take 1 Tablet by mouth in the morning. Pt states every 3 days. 0 Active Acetaminophen 500 MG Oral Tablet Take 1 Tablet by mouth every 6 hours as needed. 0 Active Nystatin 653191 UNIT/GM External Cream Apply topically to affected [...] THE MORNING 90 Tablet 2 05/01/2023 Active Isosorbide Mononitrate ER 30 MG Oral Tablet Extended Release 24 Hour (Imdur)Indications:C oronary artery disease involving chipewwa coronary artery of chipewwa heart without angina pectoris,HTN, goal below 140/90 Take 1 Tablet by mouth in the morning. 90 Tablet 3 05/01/2023 Active metFORMIN HCl 1000 MG Oral [...] Other (pain). 30 Tablet 0 05/01/2023 Active Venlafaxine HCl ER 150 MG Oral Capsule Extended Release 24 Hour (Effexor XR)Indications:Recur rent major depressive disorder, in partial remission (HCC) TAKE 1 CAPSULE BY MOUTH ONCE DAILY . DO NOT CUT, CRUSH OR CHEW 90 Capsule 1 05/01/2023 Active Premarin 0.625 MG/GM Vaginal Cream [...] A1c goal of less than 8.0% ([facility]) Inject 18 Units under the skin at bedtime. 30 mL 3 07/12/2023 Active NovoLIN R 100 UNIT/ML Injection Solution (insulin REGULAR human)Indications:Ty pe 2 diabetes mellitus with hemoglobin A1c goal of less than 8.0% ([facility]) Inject 8 units with breakfast, 4 units with lunch, and 6 units with dinner + sliding scale of 1 units per every 20 over 140 MAX DAILY DOSE 50 units 50 mL 5 07/25/2023 Active Levemir 100 UNIT/ML Subcutaneous Solution (insulin Detemir)Indications: Type 2 diabetes mellitus with hemoglobin A1c goal of less than 8.0% ([facility]) Inject 18 Units under the skin at bedtime. 15 mL 3 07/25/2023 Active Levothyroxine Sodium 75 MCG Oral Tablet (Levoxyl)Indications :Postoperative hypothyroidism TAKE ONE TABLET BY MOUTH daily first thing in the morning at least 30 minutes prior to breakfast or other meds 90 Tablet 0 09/10/2023 Active Hospital, Clinic, or Other Facility Administered Medication Ordered Dose Route Frequency Start Date End Date Status NSS 0.9% 1,000 mL bolus infusionIndications:MDS (myelodysplastic syndrome), high grade (HCC),Stem cells transplant status ([facility]),Acquired hypothyroidism 1000 mL IV DAILY PRN 12/08/2021 Active bevaCIZumab (Avastin) inj 1.25 mgIndications: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 Date of Transplant: 09/01/2021 Conditioning Regimen: Fludarabine / Busulfan 2 with post-transplant Cytoxan ABO/Rh: A Positive CMV status: CMV Positive--- GRID: [id number] / DID: [id number] Matched Unrelated 10/24--- DPB1 Match ABO/Rh: A [...] Thrombocytopenia 12/06/2022 Last Assessment & Plan: Platelets 36377 on 03/20 Questionable hematuria Urinary incontinence 09/12/2022 [...] failure. Does not have any evidence of wmzio-hslxlu-mnpf disease Last Assessment & Plan: Continues to [...] -continue venlafaxine Coronary artery disease invo lving chipewwa coronary artery of chipewwa heart without angina pectoris 06/12/2017 Overview: S/P EDIL to LAD on 06/12/17 Last Assessment & Plan: No angina - Continue atorvastatin, isosorbide, metoprolol - no ASA due to thrombocytopenia Dyslipidemia, goal LDL below 70 11/25/2011 Last Assessment & Plan: Patient having no issues. She continues on Lipitor 40 mg daily Last lab I will was that I can find were from [id number] Assessment/plan: Dyslipidemia with patient currently taking Lipitor [...] as of this encounter (statuses as of 12/15/2023) Resolved Problems Problem Noted Date Diagnosed Date [...] as of this encounter (statuses as of 12/15/2023) Immunizations Name Administration Dates Next Due COVID-19 mRNA, LNP-s, No Pre serve, 2-Dose Series ([employer]) 02/05/2021,01/08/2021 COVID-19, LNP-s, No Preserve , Ye-sucrose, Ages 12+ ([employer]) 12/06/2021 Pneumococcal Conjugate Vacc, 13 Valent (Prevnar) [...] Nursing Notes * Emma Olivo RN - 12/15/2023 2:12 PM EST Chair 12. VAD (Venous Access Device) accessed with #19G 3/4" without difficulty. VAD flushed with 10 ml NSS and Heparin 5 ml (100 units/ml). Kincaid needle removed intact. documented in this encounter Plan of Treatment Upcoming Encounters Date Type Department Care Team (Late st Contact Info) Description 12/20/2023 10:40 AM EST Laboratory Lab Mobile Phlebotomy [facility] [address] [place] [address] [facility] Mobile Home Draw [address] [place] [address] 12/22/2023 3:00 PM EST Nurse Only Ancillary Josi Rene [address] [place] [address] [place], Nurse [address] [place] [address] 12/26/2023 11:15 AM EST Office Visit Hematology/Oncology [facility] [address] [place] [address] Jitendra Aguero MD [address] [place] [address] 12/27/2023 10:40 AM EST Laboratory Lab Mobile Phlebotomy [facility] [address] [place] [address] [facility] Mobile Home Draw [address] [place] [address] 12/29/2023 12:30 PM EST [facility] Visit [facility] [address] [place] [address] Marisa Pacheco, TANYA [address] [facility] [place] [address] 01/02/2024 1:40 PM EST Office Visit Pharmacy, [address] [place] [address] [place] [address] 01/02/2024 2:20 PM EST Office Visit Family Medicine [address] [place] [address] Dhruv Moss MD [address] [place] [address] [place] [address] 01/03/2024 10:40 AM EST Laboratory Lab Mobile Phlebotomy [facility] [address] [place] [address] [facility] Mobile Home Draw [address] [place] [address] 01/10/2024 10:40 AM EST Laboratory Lab Mobile Phlebotomy [facility] [address] [place] [address] [facility] Mobile Home Draw [address] [place] [address] 01/17/2024 10:40 AM EST Laboratory Lab Mobile Phlebotomy [facility] [address] [place] [address] [facility] Mobile Home Draw [address] [place] [address] 01/24/2024 10:40 AM EDT Laboratory Lab Mobile Phlebotomy [facility] [address] [place] [address] [facility] Mobile Home Draw [address] [place] [address] 01/26/2024 2:00 PM EDT Immunization/Injectio n Hematology/Oncology Treatment, [place] [address] [place] [address] Nurse, Med [address] [facility] [place] [address] 01/31/2024 10:40 AM EDT Laboratory Lab Mobile Phlebotomy [facility] [address] [place] [address] [facility] Mobile Home Draw [address] [place] [address] 02/07/2024 10:40 AM EDT Laboratory Lab Mobile Phlebotomy [facility] [address] [place] [address] [facility] Mobile Home Draw [address] [place] [address] 02/14/2024 10:40 AM EDT Laboratory Lab Mobile Phlebotomy [facility] [address] [place] [address] [facility] Mobile Home Draw [address] [place] [address] 02/21/2024 10:40 AM EDT Laboratory Lab Mobile Phlebotomy [facility] [address] [place] [address] [facility] Mobile Home Draw [address] [place] [address] 07/03/2024 1:30 PM EDT Imaging Radiology [address] [place] [address] Pending Results Name Type Priority Associated Diagnoses Date /Time CBC WITH WBC DIFFERENTIAL Lab STAT MDS (myelodysplastic syndrome), high grade (HCC) 12/15/2023 1:56 PM EST CBC Lab STAT MDS (myelodysplastic syndrome), high grade (HCC) 12/15/2023 1:56 PM EST DIFFERENTIAL, AUTOMATED Lab STAT MDS (myelodysplastic syndrome), high grade (HCC) 12/15/2023 1:56 PM EST DIFFERENTIAL, TECHNOLOGIST REVIEW Lab Routine MDS (myelodysplastic syndrome), high grade (HCC) 12/15/2023 1:56 PM EST Scheduled Procedures Name Priority Associated [...] D LEVEL ONCE IN A LIFETIME-USE SMARTSET# 05462 Completed 05/11/2015 Zoster Vaccines Completed 10/30/2020, 02/2020, 07/13/2020, Additional history exists Pneumococcal Vaccine: 65+ Years Completed 06/10/2022, 01/06/2017, 10/09/2015, Additional history exists GARDASIL-HPV IMMUNIZATION SERIES Aged Out No longer eligible based on patient's age to complete this topic MENINGOCOCCAL (MENACTRA/MENVEO) Aged Out No longer eligible based on patient's age to complete this topic documented as of this encounter Medical Devices Implanted Type Area Foundation Director Device Identifier Shelf Expiration Date Model / Serial / Lot Port Pwr Mri Isp Profile - [id number] Implanted:Qty: 1 on 07/24/2020 by Akash Castillo MD at OR [facility] Right: Chest CR BARD : PERIPHERAL VASCULAR 04/12/2021 [id number] / / [id number] documented as of this encounter Visit Diagnoses Diagnosis MDS (myelodysplastic syndrome), high grade (HCC)- Primary High grade myelodysplastic syndrome lesions Hypomagnesemia 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 Given 12/15/2023 1:55 PM EST 500 Units sodium chloride 0.9 % flush central line 10 mL 10 mL, IV Push, PRN Other, IV Flush, Starting on 12/15/23 at 1353, Until 12/16/23 at 1352, For 24 hours, Do not flush if [...] the patient have Health Care Power of Dry Kiln Burner? No Code Status History Code Status Date Activated Date Inactivated Comments Full Code 07/27/2021 7:04 PM 07/31/2021 5:19 PM This order reflects the patients wishes and were consensually agreed upon. Question Answer Comments Discussion of Advance Directives occurred with: Patient Does the patient have a Living Will? No Does the patient have Health Care Power of Dry Kiln Burner? No Full Code 07/25/2021 12:43 PM 07/25/2021 11:03 PM Thi s order reflects the patients wishes and were consensually agreed upon. Question Answer Comments Discussion of Advance Directives occurred with: Patient/Family Does the patient have a Living Will? No Does the patient have Health Care Power of Dry Kiln Burner? No Full Code 06/12/2017 2:29 PM 06/12/2017 10:37 PM This order reflects the patients wishes and were consensually agreed upon. Question Answer Comments Discussion of Advance Directives occurred with: Not Discussed Does the patient have a Living Will? No Does the patient have Health Care Power of Dry Kiln Burner? No Healthcare Agents on File Name Relationship Healthcare Agent [facility] p Communication Juanita Silva Adult Child Health Care Agent Care Teams Final Inspector Balance Wheel Relationship Specialty Start Date End Date Dhruv Moss MD [address] [place] [address] [place] [address] PCP - General Family Medicine 08/27/21 documented as of this encounter
--- OUTSIDE RECORDS SUMMARY | 2024-02-26 04:36 | External Medical Summary | Summary of Care ---
Author Name Unknown Organization [facility] Address [address] [place] [address] Phone [phone] Care Team Providers Care Buying Intern Name Role Phone Dhruv Moss MD Primary Care Provide r Reason for Visit * Reason Comments eRx-Medication Refill Encounter Details Date Type Department Care Team (Late st Contact Info) Description 12/16/2023 Refill Family Medicine [address] [phone] Dhruv Moss MD [address] [place] [address] [place] [address] Routine medical exam*; Recurrent major depressive disorder, in partial remission (HCC); Encounter for long-term (current) use of medications; Dyslipidemia, goal LDL below 70 Allergies No [...] less than 8.0% ([facility]) Use with xultophy once a day dx [...] 6 hours as needed. 0 Active Nystatin 252643 UNIT/GM External Cream Apply topically to affected [...] THE MORNING 90 Tablet 2 3 Active Isosorbide Mononitrate ER 30 MG Oral Tablet Extended Release 24 Hour (Imdur)Indications: Coronary artery disease involving [place] coronary artery of [place] heart without angina pectoris,HTN, goal below 140/90 Take 1 Tablet by mouth in the morning. 90 Tablet 3 3 Active metFORMIN HCl 1000 MG Oral [...] or chew 90 Capsule 0 4 Active Venlafaxine HCl ER 150 MG Oral Capsule Extended Release 24 Hour (Effexor XR)Indications:Recu rrent major depressive disorder, in partial remission (HCC) TAKE 1 CAPSULE BY MOUTH ONCE DAILY . 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 Does not have any evidence of ymszn-tvlsyb-qowe disease Last Assessment & Plan: Continues to [...] -continue venlafaxine Coronary artery disease invo lving [place] coronary artery of [place] heart without angina pectoris 06/12/2017 Overview: S/P EDIL to LAD on 06/12/17 Last Assessment & Plan: No angina - Continue atorvastatin, isosorbide, metoprolol - no ASA due to thrombocytopenia Dyslipidemia, goal LDL below 70 11/25/2011 Last Assessment & Plan: Patient having no issues. She continues on Lipitor 40 mg daily Last lab I will was that I can find were from [id number] Assessment/plan: Dyslipidemia with patient currently taking Lipitor [...] encounter Miscellaneous Notes * Telephone Encounter - Corinne Kumar RPh - 12/18/2023 9:03 AM EST Signed Prescriptions: Disp Refills Venlafaxine HCl ER 150 MG Oral Capsule Ext*90 Cap*0 Sig: TAKE ONE CAPSULE BY MOUTH EVERY DAY do not cut, crush, or chewAuthorizing Provider: DHRUV MOSS User: CORINNE KUMAR ------ * Telephone Encounter - Corinne Kumar RPh - 12/18/2023 9:00 AM EST RX authorized. Zero refills given until upcoming OV. Thank you, Corinne Kumar, PharmD Clinical Pharmacist [facility] ([facility]) (formerly Telepharmacy) 12/18/23 9:01 AM [phone] Electronically signed by Corinne Kumar [facility] at 12/18/2023 9:03 AM EST documented in this encounter Plan of Treatment Upcoming Encounters Date Type Department Care Team (Late st Contact Info) Description 12/20/2023 10:40 AM EST Laboratory Lab Mobile Phlebotomy [facility] [address] [place] [address] [facility], [facility] Mobile Home Draw [address] [place] [address] 12/22/2023 3:00 PM EST Nurse Only Ancillary [address] [place] [address] [place], Nurse [address] [place] [address] 12/26/2023 11:15 AM EST Office Visit Hematology/Oncology [facility] [address] [facility] [place] [address] Jitendra Aguero MD [address] [place] [address] 12/27/2023 10:40 AM EST Laboratory Lab Mobile Phlebotomy [facility] [address] [place] [address] [facility], [facility] Mobile Home Draw [address] [place] [address] 12/29/2023 12:30 PM EST Home Visit [facility]inger at [facility] [address] [facility] [place] [address] Marisa Pacheco, TANYA [address] [facility] [place] [address] 01/02/2024 1:40 PM EST Office Visit Pharmacy, [address] [place] [address] [place] [address] 01/02/2024 2:20 PM EST Office Visit Family Medicine [address] [place] [phone] Dhruv Moss MD [address] [place] [address] [place] [address] 01/03/2024 10:40 AM EST Laboratory Lab Mobile Phlebotomy [facility] [address] [place] [address] [facility] Mobile Home Draw [address] [place] [address] 01/10/2024 10:40 AM EST Laboratory Lab Mobile Phlebotomy [facility] [address] [place] [address] [facility] Mobile Home Draw [address] [place] [address] 01/17/2024 10:40 AM EST Laboratory Lab Mobile Phlebotomy [facility] [address] [place] [address] [facility], [facility] Mobile Home Draw [address] [place] [address] 01/24/2024 10:40 AM EDT Laboratory Lab Mobile Phlebotomy [facility] [address] [place] [address] [facility], [facility] Mobile Home Draw [address] [place] [address] 01/26/2024 2:00 PM EDT Immunization/Injectio n Hematology/Oncology Treatment, [place] [address] [place] [address] Nurse, Med [address] [place] [facility] [place] [address] 01/31/2024 10:40 AM EDT Laboratory Lab Mobile Phlebotomy C [address] [place] [address] [facility] Mobile Home Draw [address] [place] [address] 02/07/2024 10:40 AM EDT Laboratory Lab Mobile Phlebotomy [facility] [address] [place] [address] [facility], [facility] Mobile Home Draw [address] [place] [address] 02/14/2024 10:40 AM EDT Laboratory Lab Mobile Phlebotomy [facility] [address] [place] [address] [facility], [facility] Mobile Home Draw [address] [place] [address] 02/21/2024 10:40 AM EDT Laboratory Lab Mobile Phlebotomy [facility] [address] [place] [address] [facility], [facility] Mobile Home Draw [address] [place] [address] 07/03/2024 1:30 PM EDT Imaging Radiology [address] [place] [address] Scheduled Orders Name Type Priority Associated Diagnoses Orde r Schedule LIPID PANEL WITH DIRECT LDL IF TG IS HIGH Lab Routine Routine medical exam Encounter for long-term (current) use of medications Dyslipidemia, goal LDL below 70 Expected: 01/01/2024 (Approximate), Expires: 12/18/2024 Scheduled Procedures Name Priority Associated Diagnoses Date/Ti [...] TO SMARTSET #1146) 11/06/2023 TSH 12/06/2023 12/06/2022, 1011/2021, 03/08/2022, Additional history exists Depression Screening 12/12/2023 [...] D LEVEL ONCE IN A LIFETIME-USE SMARTSET# [id number] Completed 05/11/2015 Zoster Vaccines Completed 10/30/2020, 090 [...] this encounter Medical Devices Implanted Type Area Scientific Photographer Device Identifier Shelf Expiration Date Model / Serial / Lot Port Pwr Mri Isp Profile - [id number] Implanted:Qty: 1 on 07/24/2020 by Akash Castillo MD at OR [facility] Right: Chest CR BARD : PERIPHERAL VASCULAR 04/12/2021 [id number] / / [id number] documented as of this encounter Visit Diagnoses Diagnosis Routine medical exam- Primary Routine general medical examination at a health care facility Recurrent major depressive disorder, in partial remission (HCC) Encounter for long-term (current) use of medications Encounter for long-term (current) use of other medications Dyslipidemia, goal LDL below 70 Other and [...] the patient have Health Care Power of Plisse Machine Operator Helper? No Code Status History Code Status Date Activated Date Inactivated Comments Full Code 07/27/2021 7:04 PM 07/31/2021 5:19 PM This order reflects the patients wishes and were consensually agreed upon. Question Answer Comments Discussion of Advance Directives occurred with: Patient Does the patient have a Living Will? No Does the patient have Health Care Power of Plisse Machine Operator Helper? No Full Code 07/25/2021 12:43 PM 07/25/2021 11:03 PM Thi s order reflects the patients wishes and were consensually agreed upon. Question Answer Comments Discussion of Advance Directives occurred with: Patient/Family Does the patient have a Living Will? No Does the patient have Health Care Power of Plisse Machine Operator Helper? No Full Code 06/12/2017 2:29 PM 06/12/2017 10:37 PM This order reflects the patients wishes and were consensually agreed upon. Question Answer Comments Discussion of Advance Directives occurred with: Not Discussed Does the patient have a Living Will? No Does the patient have Health Care Power of Plisse Machine Operator Helper? No Healthcare Agents on File Name Relationship Healthcare Agent [facility] p Communication Juanita Silva Adult Child Health Care Agent Care Teams Buying Intern Relationship Specialty Start Date End Date Dhruv Moss MD [address] [facility] [place] [address] PCP - General Family Medicine 08/27/21 documented as of this encounter
--- OUTSIDE RECORDS SUMMARY | 2024-02-26 04:36 | External Medical Summary | Summary of Care ---
Author Name Unknown Organization [facility] Address [address] [place] [address] Phone [phone] Care Team Providers Care Labor Relations Worker Name Role Phone Dhruv Moss MD Primary Care Provide r Reason for Visit * Reason Onset Date Comments Test Results Lab 12/15/2023 Encounter Details Date Type Department Care Team (Late st Contact Info) Description 12/15/2023 Telephone Hematology/Oncology Treatment, [place] [address] [place] [address] Jitendra Aguero MD [address] [place] [address] Test Results Lab Allergies No known active [...] for Nausea. 60 Tablet 3 12/09/2021 Active [employer] Delica Lancets 30GIndications:Type 2 diabetes mellitus with hemoglobin A1c goal of less than 8.0% ([facility]) Use to test blood sugar three times a day DXe11.9 300 Each 3 12/16/2021 Active takokatTouch Verio In Vitro Strip (Glucose Blood)Indications:Ty pe 2 diabetes mellitus with hemoglobin A1c goal of less than 8.0% ([facility]) Use to test blood sugar three times a day DXe11.9 300 Strip 3 12/16/2021 Active takokatTouch Verio Flex System w/Device Kit Use as directed . 0 12/16/2021 Active Magnesium 100 MG Oral TabletIndications:bowers pplement Take 1 Tablet by mouth in the morning. Pt states every 3 days. 0 Active Acetaminophen 500 MG Oral Tablet Take 1 Tablet by mouth every 6 hours as needed. 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 Does not have any evidence of xkndr-tqoifn-lsnp disease Last Assessment & Plan: Continues to [...] -continue venlafaxine Coronary artery disease invo lving [place] coronary artery of [place] heart without angina pectoris 06/12/2017 Overview: S/P EDIL to LAD on 06/12/17 Last Assessment & Plan: No angina - Continue atorvastatin, isosorbide, metoprolol - no ASA due to thrombocytopenia Dyslipidemia, goal LDL below 70 11/25/2011 Last Assessment & Plan: Patient having no issues. She continues on Lipitor 40 mg daily Last lab I will was that I can find were from [id number] Assessment/plan: Dyslipidemia with patient currently taking Lipitor [...] mRNA, LNP-s, No Pre serve, 2-Dose Series (RABBL) 02/05/2021,01/08/2021 COVID-19, LNP-s, No Preserve , Ye-sucrose, [...] encounter Miscellaneous Notes * Telephone Encounter - Jitendra Aguero MD - 12/15/2023 4:36 PM EST Noted. * Telephone Encounter - Winsome Chang RN - 12/15/2023 3:40 PM EST Received TT from lab- plt 15. documented in this encounter Plan of Treatment Upcoming Encounters Date Type Department Care Team (Late st Contact Info) Description 12/20/2023 10:40 AM EST Laboratory Lab Mobile Phlebotomy [facility] [address] [place] [address] [facility], [facility] Mobile Home Draw [address] [place] [address] 12/22/2023 3:00 PM EST Nurse Only Ancillary [address] [place] [address] [place], Nurse [address] [place] [address] 12/26/2023 11:15 AM EST Office Visit Hematology/Oncology [facility] [address] Jitendra Aguero MD [address] [place] [address] 12/27/2023 10:40 AM EST Laboratory Lab Mobile Phlebotomy [facility] [address] [place] [address] [facility], [facility] Mobile Home Draw [address] [place] [address] 12/29/2023 12:30 PM EST Home Visit [facility] [place], [facility] [address] [place] [address] Marisa Pacheco, TANYA [address] [place] [address] 01/02/2024 1:40 PM EST Office Visit Pharmacy, [address] [place] [address] [place] [address] 01/02/2024 2:20 PM EST Office Visit Family Medicine [address] [place] [phone] Dhruv Moss MD [address] [place] [address] [place] [address] 01/03/2024 10:40 AM EST Laboratory Lab Mobile Phlebotomy [facility] [address] [place] [address] [facility], l Mobile Home Draw [address] [place] [address] 01/10/2024 10:40 AM EST Laboratory Lab Mobile Phlebotomy [facility] [address] [place] [address] G[facility], [facility] Mobile Home Draw [address] [place], [place] [address] 01/17/2024 10:40 AM EST Laboratory Lab Mobile Phlebotomy [facility] [address] [place] [address] [facility], [facility] Mobile Home Draw [address] [place] [address] 01/24/2024 10:40 AM EDT Laboratory Lab Mobile Phlebotomy [facility] [address] [place] [address] [facility], [facility] Mobile Home Draw [address] [place] [address] 01/26/2024 2:00 PM EDT Immunization/Injectio n Hematology/Oncology Treatment, [place] [address] [place] [address] Nurse, Med [address] [place] [address] 01/31/2024 10:40 AM EDT Laboratory Lab Mobile Phlebotomy [facility] [address] [place] [address] [facility], [facility] Mobile Home Draw [address] [place] [address] 02/07/2024 10:40 AM EDT Laboratory Lab Mobile Phlebotomy [facility] [address] [place] [address] [facility], [facility] Mobile Home Draw [address] [place] [address] 02/14/2024 10:40 AM EDT Laboratory Lab Mobile Phlebotomy [facility] [address] [place] [address] [facility], [facility] Mobile Home Draw [address] [place] [address] 02/21/2024 10:40 AM EDT Laboratory Lab Mobile Phlebotomy [facility] [address] [place] [address] [facility], [facility] Mobile Home Draw [address] [facility] [place] [address] 07/03/2024 1:30 PM EDT Imaging Radiology [address] [place] [address] Scheduled Procedures Name Priority Associated Diagnoses Date/Ti [...] 06/01/2021, Additional history exists GFR 06/07/2024 06/07/2023, 07/07/2023, 05/08/2023, Additional history exists Albumin/Creatinine Ratio 09/15/2024 023, 03/08/2022, 10/29/2019, Additional history exists DXA Scan 06/13/2025 06/13/2023, 08/0 11/2022, 03/16/2015 DTaP,Tdap,and Td Vaccines (3 - Td or Tdap) 11/10/2026 11/10/2016, 03/30/2011 VITAMIN D LEVEL ONCE IN A LIFETIME-USE SMARTSET# [id number] Completed 05/11/2015 Zoster Vaccines Completed 10/30/2020, 02/2020, 07/13/2020, Additional history exists Pneumococcal Vaccine: 65+ Years Completed 06/10/2022, 01/06/2017, 10/09/2015, Additional history exists GARDASIL-HPV IMMUNIZATION SERIES Aged Out No longer eligible based on patient's age to complete this topic MENINGOCOCCAL (MENACTRA/MENVEO) Aged Out No longer eligible based on patient's age to complete this topic documented as of this encounter Medical Devices Implanted Type Area Contracts Administrator Device Identifier Shelf Expiration Date Model / Serial / Lot Port Pwr Mri Isp Profile - [id number] Implanted:Qty: 1 on 07/24/2020 by Akash Castillo MD at OR [facility] Right: Chest CR BARD : PERIPHERAL VASCULAR 04/12/2021 [id number] / / [id number] documented as of this encounter Advance Directives [...] the patient have Health Care Power of Proposal Rep? No Code Status History Code Status Date Activated Date Inactivated Comments Full Code 07/27/2021 7:04 PM 07/31/2021 5:19 PM This order reflects the patients wishes and were consensually agreed upon. Question Answer Comments Discussion of Advance Directives occurred with: Patient Does the patient have a Living Will? No Does the patient have Health Care Power of Proposal Rep? No Full Code 07/25/2021 12:43 PM 07/25/2021 11:03 PM Thi s order reflects the patients wishes and were consensually agreed upon. Question Answer Comments Discussion of Advance Directives occurred with: Patient/Family Does the patient have a Living Will? No Does the patient have Health Care Power of Proposal Rep? No Full Code 06/12/2017 2:29 PM 06/12/2017 10:37 PM This order reflects the patients wishes and were consensually agreed upon. Question Answer Comments Discussion of Advance Directives occurred with: Not Discussed Does the patient have a Living Will? No Does the patient have Health Care Power of Proposal Rep? No Healthcare Agents on File Name Relationship Healthcare Agent Relationshi p Communication Juanita Silva Adult Child Health Care Agent Care Teams Labor Relations Worker Relationship Specialty Start Date End Date Dhruv Moss MD [address] [place] [address] PCP - General Family Medicine 08/27/21 documented as of this encounter
--- OUTSIDE RECORDS SUMMARY | 2024-02-26 04:36 | External Medical Summary | Summary of Care ---
Author Name Unknown Organization [facility] Address [address] [place] [address] Phone [phone] Care Team Providers Care Crime Scene Investigator Name Role Phone Dhruv Moss MD Primary Care Provide r Reason for Visit * Reason Onset Date Comments Test Results Lab 12/15/2023 Encounter Details Date Type Department Care Team (Late st Contact Info) Description 12/15/2023 Telephone Hematology/Oncology Treatment, [place] [address] [place] [address] Jitendra Aguero MD [address] [place] [address] Test Results Lab Allergies No known active [...] hemoglobin A1c goal of less than 8.0% ([facility]) Use with xultophy once a [...] for Nausea. 60 Tablet 3 12/09/2021 Active Clinc! Delica Lancets 30GIndications:Type 2 diabetes mellitus with hemoglobin A1c goal of less than 8.0% ([facility]) Use to test blood sugar three times a day DXe11.9 300 Each 3 12/16/2021 Active PRX Control SolutionsTouch Verio In Vitro Strip (Glucose Blood)Indications:Ty pe 2 diabetes mellitus with hemoglobin A1c goal of less than 8.0% ([facility]) Use to test blood sugar three times a day DXe11.9 300 Strip 3 12/16/2021 Active PRX Control SolutionsTouch Verio Flex System w/Device Kit Use as directed . 0 12/16/2021 Active Magnesium 100 MG Oral TabletIndications:bowers pplement Take 1 Tablet by mouth in the morning. Pt states every 3 days. 0 Active Acetaminophen 500 MG Oral Tablet Take 1 Tablet by mouth every 6 hours as needed. 0 Active Nystatin 639467 UNIT/GM External Cream Apply topically to affected [...] 24 Hour (Imdur)Indications:C oronary artery disease involving [place] coronary artery of [place] heart without angina pectoris,HTN, goal below 140/90 [...] hemoglobin A1c goal of less than 8.0% ([facility]) Inject 18 Units under the [...] both eyes and macular edema, unspecified whether residential insulin use (HCC) 1.5 mg PERINEURAL PRN [...] 3553 0000 [id number] 732 / DID: [id number] Matched Unrelated 10/24--- DPB1 Match ABO/Rh: A [...] Thrombocytopenia 12/06/2022 Last Assessment & Plan: Platelets 74762 on 03/20 Questionable hematuria Urinary incontinence 09/12/2022 [...] failure. Does not have any evidence of mbtpy-yehlpj-hypk disease Last Assessment & Plan: Continues to [...] -continue venlafaxine Coronary artery disease invo lving [place] coronary artery of [place] heart without angina pectoris 06/12/2017 Overview: S/P EDIL to LAD on 06/12/17 Last Assessment & Plan: No angina - Continue atorvastatin, isosorbide, metoprolol - no ASA due to thrombocytopenia Dyslipidemia, goal LDL below 70 11/25/2011 Last Assessment & Plan: Patient having no issues. She continues on Lipitor 40 mg daily Last lab I will was that I can find were from [phone] Assessment/plan: Dyslipidemia with patient currently taking Lipitor [...] mRNA, LNP-s, No Pre serve, 2-Dose Series ([place]) 02/05/2021,01/08/2021 COVID-19, LNP-s, No Preserve , Ye-sucrose, [...] 10:40 AM EST Laboratory Lab Mobile Phlebotomy [facility] [address] [place] [address] [facility] Mobile Home Draw [address] [place] [address] 12/22/2023 3:00 PM EST Nurse Only Ancillary [address] [place] [address] [place], Nurse [address] [place] [address] 12/26/2023 11:15 AM EST Office Visit Hematology/Oncology [employer] 200 [facility] [place] [address] Jitendra Aguero MD [address] [place] [address] 12/27/2023 10:40 AM EST Laboratory Lab Mobile Phlebotomy [facility] [address] [place] [address] [facility] Mobile Home Draw [address] [place] [address] 12/29/2023 12:30 PM EST [facility] Visit [facility], [facility] [address] [place] [address] Marisa Pacheco, TANYA [address] [place] [address] 01/02/2024 1:40 PM EST Office Visit Pharmacy, [address] [place] [address] [place] [address] 01/02/2024 2:20 PM EST Office Visit Family Medicine [address] [place] [phone] Dhruv Moss MD [address] [place] [address] [place] [address] 01/03/2024 10:40 AM EST Laboratory Lab Mobile Phlebotomy [facility] [address] [place] [address] [facility] Mobile Home Draw [address] [place] [address] 01/10/2024 10:40 AM EST Laboratory Lab Mobile Phlebotomy [facility] [address] [place] [address] [facility] Mobile Home Draw [address] [place] [address] 01/17/2024 10:40 AM EST Laboratory Lab Mobile Phlebotomy [facility] [address] [place] [address] [facility] Mobile Home Draw [address] [place] [address] 01/24/2024 10:40 AM EDT Laboratory Lab Mobile Phlebotomy [facility] [address] [place] [address] [facility] Mobile Home Draw [address] [place] [address] 01/26/2024 2:00 PM EDT Immunization/Injectio n Hematology/Oncology Treatment, [place] [address] [place] [address] Nurse, Med [address] [place] [address] 01/31/2024 10:40 AM EDT Laboratory Lab Mobile Phlebotomy [facility] [address] [place] [address] [facility], [facility] Mobile Home Draw [address] [place] [address] 02/07/2024 10:40 AM EDT Laboratory Lab Mobile Phlebotomy [facility] [address] [place] [address] [facility], [facility] Mobile Home Draw [address] [place] [address] 02/14/2024 10:40 AM EDT Laboratory Lab Mobile Phlebotomy [facility] [address] [place] [address] [facility], [facility] Mobile Home Draw [address] [place] [address] 02/21/2024 10:40 AM EDT Laboratory Lab Mobile Phlebotomy [facility] [address] [place] [address] [facility], [facility] Mobile Home Draw [address] [place] [address] 07/03/2024 1:30 PM EDT Imaging Radiology [address] [place] [address] Scheduled Procedures Name Priority Associated Diagnoses Date/Ti me COLONOSCOPY FLEXIBLE PROXIMA L DIAGNOSTIC Recall Encounter for screening colonoscopy Health Maintenance Due Date Last Done Comments Hepatitis B (1 of 3 - Risk 3-dose series) 2008 COVID-19 Vaccine ( - season) 2023 12/06/2021, 02/05/2021, 01/08/2021 Influenza Vaccine [...] D LEVEL ONCE IN A LIFETIME-USE SMARTSET# [id number] Completed 05/11/2015 Zoster Vaccines Completed 10/30/2020, 02/2020, 07/13/2020, Additional history exists Pneumococcal Vaccine: 65+ Years Completed 06/10/2022, 01/06/2017, 10/09/2015, Additional history exists GARDASIL-HPV IMMUNIZATION SERIES Aged Out No longer eligible based on patient's age to complete this topic MENINGOCOCCAL (MENACTRA/MENVEO) Aged Out No longer eligible based on patient's age to complete this topic documented as of this encounter Medical Devices Implanted Type Area Social Media Coordinator Device Identifier Shelf Expiration Date Model / Serial / Lot Port Pwr Mri Isp Profile - [id number] Implanted:Qty: 1 on 07/24/2020 by Akash Castillo MD at [facility] Right: Chest CR BARD : PERIPHERAL VASCULAR 04/12/2021 [id number] / / [id number] documented as of this encounter Advance Directives [...] the patient have Health Care Power of Leather Toggler? No Code Status History Code Status Date Activated Date Inactivated Comments Full Code 07/27/2021 7:04 PM 07/31/2021 5:19 PM This order reflects the patients wishes and were consensually agreed upon. Question Answer Comments Discussion of Advance Directives occurred with: Patient Does the patient have a Living Will? No Does the patient have Health Care Power of Leather Toggler? No Full Code 07/25/2021 12:43 PM 07/25/2021 11:03 PM Thi s order reflects the patients wishes and were consensually agreed upon. Question Answer Comments Discussion of Advance Directives occurred with: Patient/Family Does the patient have a Living Will? No Does the patient have Health Care Power of Leather Toggler? No Full Code 06/12/2017 2:29 PM 06/12/2017 10:37 PM This order reflects the patients wishes and were consensually agreed upon. Question Answer Comments Discussion of Advance Directives occurred with: Not Discussed Does the patient have a Living Will? No Does the patient have Health Care Power of Leather Toggler? No Healthcare Agents on File Name Relationship Healthcare Agent [facility] p Communication Juanita Silva Adult Child Health Care Agent Care Teams Crime Scene Investigator Relationship Specialty Start Date End Date Dhruv Moss MD [address] [place], [place] [address] [address] PCP - General Family Medicine 08/27/21 documented as of this encounter
--- OUTSIDE RECORDS SUMMARY | 2024-02-26 04:36 | External Medical Summary | Summary of Care ---
Author Name Unknown Organization [facility] Address [address] [place] [address] Phone [phone] Care Team Providers Care Radiation Oncology Nurse Name Role Phone Dhruv Moss MD Primary Care Provide r Reason for Visit * Reason Comments eRx-Medication Refill Encounter Details Date Type Department Care Team (Late st Contact Info) Description 12/16/2023 Refill Family Medicine [address] [phone] Dhruv Moss MD [address] [place] [address] [place] [address] Routine medical exam*; Recurrent major depressive disorder, in partial remission (HCC); Encounter for long-term (current) use of medications; Dyslipidemia, goal LDL below 70 Allergies No known active allergiesdocumented as of this encounter (statuses as of 12/21/2023) Medications Medication Sig Dispensed Refills Start Date [...] 6 hours as needed. 0 Active Nystatin 391489 UNIT/GM External Cream Apply topically to affected [...] 8.0% ([facility]) Inject 8 units with breakfast, 4 units with lunch, and 6 units with dinner + sliding scale of 1 units per every 20 over 140 MAX DAILY DOSE 50 units 50 mL 5 3 Active Levemir 100 UNIT/ML Subcutaneous Solution (insulin Detemir)Indications :Type 2 diabetes mellitus with hemoglobin A1c goal of less than 8.0% ([facility]) Inject 18 Units under the skin at [...] 24 Hour (Imdur)Indications: Coronary artery disease involving [place] coronary artery of [place] heart without angina pectoris,HTN, goal below 140/90 Take 1 Tablet by mouth in the morning. 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 Date of Transplant: 09/01/2021 Conditioning Regimen: Fludarabine / Busulfan 2 with post-transplant Cytoxan ABO/Rh: A Positive CMV status: CMV Positive--- GRID: [id number] [id number] / DID: [id number] Matched Unrelated 10/24--- DPB1 Match ABO/Rh: A [...] Thrombocytopenia 12/06/2022 Last Assessment & Plan: Platelets 14541 on 03/20 Questionable hematuria Urinary incontinence 09/12/2022 [...] failure. Does not have any evidence of maltr-etoclf-qmbm disease Last Assessment & Plan: Continues to [...] -continue venlafaxine Coronary artery disease invo lving chit[place] coronary artery of chit[place] heart without angina pectoris 06/12/2017 Overview: S/P EDIL to LAD on 06/12/17 Last Assessment & Plan: No angina - Continue atorvastatin, isosorbide, metoprolol - no ASA due to thrombocytopenia Dyslipidemia, goal LDL below 70 11/25/2011 Last Assessment & Plan: Patient having no issues. She continues on Lipitor 40 mg daily Last lab I will was that I can find were from [phone] Assessment/plan: Dyslipidemia with patient currently taking Lipitor [...] as of this encounter (statuses as of 12/21/2023) Resolved Problems Problem Noted Date Diagnosed Date [...] as of this encounter (statuses as of 12/21/2023) Immunizations Name Administration Dates Next Due COVID-19 [...] Services ([facility]) (formerly Telepharmacy) 12/18/23 9:01 AM [phone] documented in this encounter Plan of Treatment Upcoming Encounters Date Type Department Care Team (Late st Contact Info) Description 12/22/2023 3:00 PM EST Nurse Only Ancillary [address] [place] [address] [place], Nurse [address] [place] [address] 12/26/2023 11:15 AM EST Office Visit Hematology/Oncology [facility] [address] [facility] [place] [address] Jitendra Aguero MD [address] [place] [address] 12/27/2023 10:40 AM EST Laboratory Lab Mobile Phlebotomy [facility] [address] [place] [address] [facility], l Mobile Home Draw [address] [place] [address] 12/29/2023 12:30 PM EST Home Visit [facility], [facility] 132 [facility] [place] [address] Marisa Pacheco, TANYA [address] [place] [address] 01/02/2024 1:40 PM EST Office Visit Pharmacy, [address] [place] [address] [place] [address] 01/02/2024 2:20 PM EST Office Visit Family [address] [place] [phone] Dhruv Moss MD [address] [place] [address] [place] [address] 01/03/2024 10:40 AM EST Laboratory Lab Mobile Phlebotomy [facility] [address] [place] [address] [facility] Mobile Home Draw [address] [place] [address] 01/10/2024 10:40 AM EST Laboratory Lab Mobile Phlebotomy [facility] [address] [place] [address] [facility] Mobile Home Draw [address] [place] [address] 01/17/2024 10:40 AM EST Laboratory Lab Mobile Phlebotomy [facility] [address] [place] [address] [facility] Mobile Home Draw [address] [place] [address] 01/24/2024 10:40 AM EDT Laboratory Lab Mobile Phlebotomy [facility] [address] [place] [address] Gm, [facility] Mobile Home Draw [address] [place] [address] 01/26/2024 2:00 PM EDT Immunization/Injectio n Hematology/Oncology Treatment, [place] [address] [place] [address] Nurse, [facility] [address] 01/31/2024 10:40 AM EDT Laboratory Lab Mobile Phlebotomy [facility] [address] [place] [address] [facility], [facility] Mobile Home Draw [address] [place] [address] 02/07/2024 10:40 AM EDT Laboratory Lab Mobile Phlebotomy [facility] [address] [place] [address] [facility] Mobile Home Draw [address] [place] [address] 02/14/2024 10:40 AM EDT Laboratory Lab Mobile Phlebotomy C [address] [place] [address] [facility], [facility] Mobile Home Draw [address] [place] [address] 02/21/2024 10:40 AM EDT Laboratory Lab Mobile Phlebotomy C [address] [place] [address] [facility] Mobile Home Draw [address] [place] [address] 07/03/2024 1:30 PM EDT Imaging Radiology [address] [place] [id number] Scheduled Orders Name Type Priority Associated Diagnoses [...] TO SMARTSET #[id number]) 11/06/2023 TSH 12/06/2023 12/06/2022, 10/11/2021, 03/08/2022, Additional history exists Depression Screening 12/12/2023 [...] D LEVEL ONCE IN A LIFETIME-USE SMARTSET# [id number] Completed 05/11/2015 Zoster Vaccines Completed 10/30/2020, 0902/2020, 07/13/2020, Additional history exists Pneumococcal Vaccine: 65+ Years Completed 06/10/2022, 01/06/2017, 10/09/2015, Additional history exists GARDASIL-HPV IMMUNIZATION SERIES Aged Out No longer eligible based on patient's age to complete this topic MENINGOCOCCAL (MENACTRA/MENVEO) Aged Out No longer eligible based on patient's age to complete this topic documented as of this encounter Medical Devices Implanted Type Area Promotions Firm Accounts Manager Device Identifier Shelf Expiration Date Model / Serial / Lot Port Pwr Mri Isp Profile - [id number] Implanted:Qty: 1 on 07/24/2020 by Akash Castillo MD at [facility] Right: Chest CR BARD : PERIPHERAL VASCULAR 04/12/2021 [id number] / / [id number] documented as of this encounter Visit Diagnoses [...] the patient have Health Care Power of First Responder? No Code Status History Code Status Date Activated Date Inactivated Comments Full Code 07/27/2021 7:04 PM 07/31/2021 5:19 PM This order reflects the patients wishes and were consensually agreed upon. Question Answer Comments Discussion of Advance Directives occurred with: Patient Does the patient have a Living Will? No Does the patient have Health Care Power of First Responder? No Full Code 07/25/2021 12:43 PM 07/25/2021 11:03 PM Thi s order reflects the patients wishes and were consensually agreed upon. Question Answer Comments Discussion of Advance Directives occurred with: Patient/Family Does the patient have a Living Will? No Does the patient have Health Care Power of First Responder? No Full Code 06/12/2017 2:29 PM 06/12/2017 10:37 PM This order reflects the patients wishes and were consensually agreed upon. Question Answer Comments Discussion of Advance Directives occurred with: Not Discussed Does the patient have a Living Will? No Does the patient have Health Care Power of First Responder? No Healthcare Agents on File Name Relationship Healthcare Agent Relationshi p Communication Juanita Silva Adult Child Health Care Agent Care Teams Radiation Oncology Nurse Relationship Specialty Start Date End Date Dhruv Moss MD [address] [place] [address] [place] [address] PCP - General Family Medicine 08/27/21 documented as of this encounter
--- OUTSIDE RECORDS SUMMARY | 2024-02-26 04:36 | External Medical Summary ---
Author Name Unknown Address Unknown Organization [facility] [place] [id number] Laboratory Report Ordering Provider Test Date Status ANN MUNGUIA 12/15/2023 13:56:22 Final Observation Date Value Abnormality Reference (Units ) Status SYNC LEUKOCYTES IN BLOOD BY AUTOMATED COUNT 12/15/2023 13:56:22 6.42 4.00-10.80 (K/uL) Final Neutrophils/100 leukocytes in Blood by Manual count 12/15/2023 13:56:22 37.0 Below low normal 40.0-75.0 (%) Final Lymphocytes/100 leukocytes in Blood by Manual count 12/15/2023 13:56:22 56.0 Above high normal 18.0-42.0 (%) Final Monocytes/100 leukocytes in Blood by Manual count 12/15/2023 13:56:22 2.0 1.0-11.0 (%) Final Eosinophils/100 leukocytes in Blood by Manual count 12/15/2023 13:56:22 5.0 0.0-6.0 (%) Final Neutrophils [#/volume] in Blood by Manual count 12/15/2023 13:56:22 2.38 1.80-7.70 (K/uL) Final Lymphocytes [#/volume] in Blood by Manual count 12/15/2023 13:56:22 3.60 1.00-4.80 (K/uL) Final Monocytes [#/volume] in Blood by Manual count 12/15/2023 13:56:22 0.13 0.00-1.10 (K/uL) Final Eosinophils [#/volume] in Blood by Manual count 12/15/2023 13:56:22 0.32 0.00-0.70 (K/uL) Final Nucleated erythrocytes/100 leukocytes [Ratio] in Blood by Automated count 12/15/2023 13:56:22 Final Neutrophils.agranular [Presence] in Blood by Light microscopy 12/15/2023 13:56:22 Present Abnormal None Seen Final Variant lymphocytes [Presence] in Blood by Light microscopy 12/15/2023 13:56:22 Present Abnormal None Seen Final Performing Location [facility] [place] [address]
--- OUTSIDE RECORDS SUMMARY | 2024-02-26 04:36 | External Medical Summary | Summary of Care ---
Author Name Unknown Organization [facility] Address [address] [facility] [place] [address] Phone [phone] Care Team Providers Care Shuttle Driver Name Role Phone Dhruv Moss MD Primary Care Provide r Reason for Visit * Reason Onset Date Comments Appointment 12/11/2023 Encounter Details Date Type Department Care Team (Late st Contact Info) Description 12/11/2023 Telephone Ancillary [address] [place] [address] Margarita Caba, RN Appointment Allergies No known active allergiesdocumented as of this encounter (statuses as of 12/11/2023) Medications Medication Sig Dispensed Refills Start Date [...] for Nausea. 60 Tablet 3 12/09/2021 Active Oyster Delica Lancets 30GIndications:Type 2 diabetes mellitus with hemoglobin A1c goal of less than 8.0% ([facility]) Use to test blood sugar three times a day DXe11.9 300 Each 3 12/16/2021 Active Bosideng In Vitro Strip (Glucose Blood)Indications:Ty pe 2 diabetes mellitus with hemoglobin A1c goal of less than 8.0% ([facility]) Use to test blood sugar three times a day DXe11.9 300 Strip 3 12/16/2021 Active Oyster Verio Flex System w/Device Kit Use as directed . 0 12/16/2021 Active Magnesium 100 MG Oral TabletIndications:bowers pplement Take 1 Tablet by mouth in the morning. Pt states every 3 days. 0 Active Acetaminophen 500 MG Oral Tablet Take 1 Tablet by mouth every 6 hours as needed. 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 Date of Transplant: 09/01/2021 Conditioning Regimen: Fludarabine / Busulfan 2 with post-transplant Cytoxan ABO/Rh: A Positive CMV status: CMV Positive--- GRID: [id number] / DID: [id number] Matched Unrelated 10/24--- DPB1 Match ABO/Rh: A [...] Thrombocytopenia 12/06/2022 Last Assessment & Plan: Platelets 33643 on 03/20 Questionable hematuria Urinary incontinence 09/12/2022 [...] failure. 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 She continues on Lipitor 40 mg daily Last lab I will was that I can find were from [phone] Assessment/plan: Dyslipidemia with patient currently taking Lipitor [...] as of this encounter (statuses as of 12/11/2023) Resolved Problems Problem Noted Date Diagnosed Date [...] as of this encounter (statuses as of 12/11/2023) Immunizations Name Administration Dates Next Due COVID-19 [...] encounter Miscellaneous Notes * Telephone Encounter - Margarita Caba RN - 12/11/2023 1:10 PM EST Spoke to patient and reschedule her for the following week. Reason for Call: Appointment Contact: Telephone Call Contact Type: Follow-up Outcome: see note Face to face time spent with Patient (minutes): 0 Total Time including non face to face (minutes): 10 * Telephone Encounter - Margarita Caba RN - 12/11/2023 12:41 PM EST Left message for the patient to call the office. I need to offer rescheduling her annual wellness visit for another day. I will be out of the officedue to family . documented in this encounter Plan of Treatment Upcoming Encounters Date Type Department Care Team (Late st Contact Info) Description 12/13/2023 10:40 AM EST Laboratory Lab Mobile Phlebotomy [facility] [address] [place] [address] [facility] Mobile Home Draw [address] [place] [address] 12/15/2023 2:00 PM EST Immunization/Injectio n Hematology/Oncology Treatment, [place] [address] [place] [place] [address] Nurse, Med [facility] [address] 12/20/2023 10:40 AM EST Laboratory Lab Mobile Phlebotomy [facility] [address] [place] [address] [facility] Mobile Home Draw [address] [place] [address] 12/22/2023 3:00 PM EST Nurse Only Ancillary [address] [place] [address] [place], Nurse [address] [place] [address] 12/26/2023 11:15 AM EST Office Visit Hematology/Oncology [facility] [address] [place] [address] Jitendra Aguero MD [address] [place] [address] 12/27/2023 10:40 AM EST Laboratory Lab Mobile Phlebotomy [facility] [address] [place] [address] [facility] Mobile Home Draw [address] [place] [address] 12/29/2023 12:30 PM EST [facility] Visit [facility] [address] [facility] [place] [address] Marisa Pacheco, TANYA [address] [place] [address] 01/02/2024 1:40 PM EST Office Visit Pharmacy, [address] [place] [address] [place] [address] 01/02/2024 2:20 PM EST Office Visit [address] [place] [phone] Dhruv Moss MD [address] [place] [address] [place] [address] 01/03/2024 10:40 AM EST Laboratory Lab Mobile Phlebotomy [facility] [address] [place] [address] [facility] Mobile Home Draw [address] [place] [address] 01/10/2024 10:40 AM EST Laboratory Lab Mobile Phlebotomy [facility] [address] [place] [address] [facility] Mobile Home Draw [address] [place] [address] 01/17/2024 10:40 AM EST Laboratory Lab Mobile Phlebotomy [facility] [address] [place] [address] [facility] Mobile Home Draw [address] [place] [address] 01/24/2024 10:40 AM EDT Laboratory Lab Mobile Phlebotomy [facility] [address] [place] [address] [facility] Mobile Home Draw [address] [place] [address] 01/31/2024 10:40 AM EDT Laboratory Lab Mobile Phlebot[facility] [address] [place] [address] [facility] Mobile Home Draw [address] [place] [address] 02/07/2024 10:40 AM EDT Laboratory Lab Mobile Phlebot[facility] [address] [place] [address] [facility] Mobile Home Draw [address] [place] [address] 02/14/2024 10:40 AM EDT Laboratory Lab Mobile Phlebotomy [facility] [address] [place] [address] [facility] Mobile Home Draw [address] [place] [address] 02/21/2024 10:40 AM EDT Laboratory Lab Mobile Phlebotomy [facility] [address] [place] [address] [facility] Mobile Home Draw [address] [place] [address] 07/03/2024 1:30 PM EDT Imaging Radiology [address] [place] [address] Scheduled Procedures Name Priority Associated Diagnoses Date/Ti [...] Additional history exists DXA Scan 06/13/2025 06/13/2023, 03/16/2015 DTaP,Tdap,and Td Vaccines (3 - Td or Tdap) 11/10/2026 11/10/2016, 03/30/2011 VITAMIN D LEVEL ONCE IN A LIFETIME-USE SMARTSET# 45306 Completed 05/11/2015 Zoster Vaccines Completed 10/30/2020, 02/2020, 07/13/2020, Additional history exists Pneumococcal Vaccine: 65+ Years Completed 06/10/2022, 01/06/2017, 10/09/2015, Additional history exists GARDASIL-HPV IMMUNIZATION SERIES Aged Out No longer eligible based on patient's age to complete this topic MENINGOCOCCAL (MENACTRA/MENVEO) Aged Out No longer eligible based on patient's age to complete this topic documented as of this encounter Medical Devices Implanted Type [employer] Truck Driver Device Identifier Shelf Expiration Date Model / Serial / Lot Port Pwr Mri Isp Profile - [id number] Implanted:Qty: 1 on 07/24/2020 by Akash Castillo MD at OR [facility] Right: Chest CR BARD : PERIPHERAL VASCULAR 04/12/2021 [id number] / / [id number] documented as of this encounter Advance Directives [...] patient have Health Care Power of Store Associate? No Code Status History Code Status Date Activated Date Inactivated Comments Full Code 07/27/2021 7:04 PM 07/31/2021 5:19 PM This order reflects the patients wishes and were consensually agreed upon. Question Answer Comments Discussion of Advance Directives occurred with: Patient Does the patient have a Living Will? No Does the patient have Health Care Power of Store Associate? No Full Code 07/25/2021 12:43 PM 07/25/2021 11:03 PM Thi s order reflects the patients wishes and were consensually agreed upon. Question Answer Comments Discussion of Advance Directives occurred with: Patient/Family Does the patient have a Living Will? No Does the patient have Health Care Power of Store Associate? No Full Code 06/12/2017 2:29 PM 06/12/2017 10:37 PM This order reflects the patients wishes and were consensually agreed upon. Question Answer Comments Discussion of Advance Directives occurred with: Not Discussed Does the patient have a Living Will? No Does the patient have Health Care Power of Store Associate? No Healthcare Agents on File Name Relationship Healthcare Agent [facility] Communication Juanita Silva Adult Child Health Care Agent Care Teams Shuttle Driver Relationship Specialty Start Date End Date Dhruv Moss MD [address] [place] [address] PCP - General Family Medicine 08/27/21 documented as of this encounter
--- OUTSIDE RECORDS SUMMARY | 2024-02-26 04:36 | External Medical Summary ---
Author Name Unknown Address Unknown Organization [id number]:[facility] [place] [address] Laboratory Report Ordering Provider Test Date Status ANN MUNGUIA 12/15/2023 13:56:22 Final Observation Date Value Abnormality Reference (Units ) Status WBC, Total 12/15/2023 13:56:22 6.42 4.00-10.80 (K/uL) Final RBC 12/15/2023 13:56:22 2.51 3.85-5.15 (M/uL) Final Hemoglobin 12/15/2023 13:56:22 10.0 Below low normal 12.0-15.3 (g/dL) Final HCT 12/15/2023 13:56:22 29.8 Below low normal 36.0-45.2 (%) Final MCV 12/15/2023 13:56:22 118.7 81.5-97.5 (fL) Final MCH 12/15/2023 13:56:22 39.8 27.0-34.0 (pg) Final MCHC 12/15/2023 13:56:22 33.6 32.0-36.0 (g/dL) Final RDW 12/15/2023 13:56:22 13.7 11.5-15.5 (%) Final Platelets 12/15/2023 13:56:22 15 Below lower panic limits 140-400 (K/uL) Final MPV 12/15/2023 13:56:22 11.7 6.6-11.1 (fL) Final Performing Location [facility] [place] [address]
--- OUTSIDE RECORDS SUMMARY | 2024-02-26 04:36 | External Medical Summary ---
Author Name Unknown Address Unknown Organization K01[facility] [address] [facility] [place] [address] Laboratory Report Ordering Provider Test Date Status ANN MUNGUIA 12/20/2023 08:15:00 Final Observation Date Value Abnormality Reference (Units ) Status SYNC LEUKOCYTES IN BLOOD BY AUTOMATED COUNT 12/20/2023 08:15:00 6.31 4.00-10.80 (K/uL) Final Neutrophils/100 leukocytes in Blood by Manual count 12/20/2023 08:15:00 25.0 Below low normal 40.0-75.0 (%) Final Lymphocytes/100 leukocytes in Blood by Manual count 12/20/2023 08:15:00 60.0 Above high normal 18.0-42.0 (%) Final Monocytes/100 leukocytes in Blood by Manual count 12/20/2023 08:15:00 7.0 1.0-11.0 (%) Final Eosinophils/100 leukocytes in Blood by Manual count 12/20/2023 08:15:00 5.0 0.0-6.0 (%) Final Basophils/100 leukocytes in Blood by Manual count 12/20/2023 08:15:00 1.0 0.0-2.0 (%) Final Blasts/100 leukocytes in Blood by Manual count 12/20/2023 08:15:00 2.0 Above high normal <=0.0 (%) Final Neutrophils [#/volume] in Blood by Manual count 12/20/2023 08:15:00 1.58 Below low normal 1.80-7.70 (K/uL) Final Lymphocytes [#/volume] in Blood by Manual count 12/20/2023 08:15:00 3.79 1.00-4.80 (K/uL) Final Monocytes [#/volume] in Blood by Manual count 12/20/2023 08:15:00 0.44 0.00-1.10 (K/uL) Final Eosinophils [#/volume] in Blood by Manual count 12/20/2023 08:15:00 0.32 0.00-0.70 (K/uL) Final Basophils [#/volume] in Blood by Manual count 12/20/2023 08:15:00 0.06 0.00-0.20 (K/uL) Final Blasts [#/volume] in Blood by Manual count 12/20/2023 08:15:00 0.13 Above high normal <=0.00 (K/uL) Final Neutrophils.agranular [Presence] in Blood by Light microscopy 12/20/2023 08:15:00 Present Abnormal None Seen Final Variant lymphocytes [Presence] in Blood by Light microscopy 12/20/2023 08:15:00 Present Abnormal None Seen Final Smudge cells [Presence] in Blood by Light microscopy 12/20/2023 08:15:00 Present Abnormal None Seen Final Performing Location LAB[facility]ATORY [facility] - [address] [facility] [address]
--- OUTSIDE RECORDS SUMMARY | 2024-02-26 04:37 | External Medical Summary | Summary of Care ---
Author Name Unknown Organization [facility] Address [address] [place] [address] Phone [phone] Care Team Providers Care Pest Control Technician Name Role Phone Dhruv Moss MD Primary Care Provide r Reason for Visit * Reason Comments Outpatient Testing Encounter Details Date Type Department Care Team (Late st Contact Info) Description 11/20/2023 1:30 PM EST Laboratory Laboratory [address] [place] [phone] [facility] Lab [address] [place] [address] Type 2 diabetes mellitus with hemoglobin A1c goal of less than 7.0% ([facility]); Type 2 diabetes mellitus with hemoglobin A1c goal of less than 8.0% ([facility]); MDS (myelodysplastic syndrome), high grade ([facility]) Allergies No known active allergiesdocumented as of this encounter (statuses as of 11/20/2023) Medications Medication Sig Dispensed Refills Start Date End Date Status Cholecalciferol (VITAMIN D3) 5000 UNITS TabletIndications:bowers pplement Take 1 Tablet by mouth in the morning. 0 05/14/2015 Active BD Pen Needle Mini U/F 31G X 5 MM (Insulin Pen Needle)Indications:T ype 2 diabetes mellitus with hemoglobin A1c goal of less than 8.0% ([facility]) Use with xultophy once a day dx e11.9 100 Each 3 05/28/2021 Active Ondansetron HCl 8 MG Oral TabletIndications:MD Santos (myelodysplastic syndrome), high grade ([facility]) Take 1 Tablet by mouth every 8 [...] day DXe11.9 300 Each 3 12/16/2021 Active OneTouch Verio In Vitro Strip (Glucose Blood)Indications:Ty pe [...] 6 hours as needed. 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 Date of Transplant: 09/01/2021 Conditioning Regimen: Fludarabine / Busulfan 2 with post-transplant Cytoxan ABO/Rh: A Positive CMV status: CMV Positive--- GRID: [id number] / DID: [id number] Matched Unrelated 10/24--- DPB1 Match ABO/Rh: A [...] Thrombocytopenia 12/06/2022 Last Assessment & Plan: Platelets 51200 on 03/20 Questionable hematuria Urinary incontinence 09/12/2022 [...] failure. Does not have any evidence of vbdmf-zjusja-drlo disease Last Assessment & Plan: Continues to [...] -continue venlafaxine Coronary artery disease invo lving lime coronary artery of lime heart without angina pectoris 06/12/2017 Overview: S/P EDIL to LAD on 06/12/17 Last Assessment & Plan: No angina - Continue atorvastatin, isosorbide, metoprolol - no ASA due to thrombocytopenia Dyslipidemia, goal LDL below 70 11/25/2011 Last Assessment & Plan: Patient having no issues. She continues on Lipitor 40 mg daily Last lab I will was that I can find were from [phone] Assessment/plan: Dyslipidemia with patient currently taking Lipitor [...] as of this encounter (statuses as of 11/20/2023) Resolved Problems Problem Noted Date Diagnosed Date [...] as of this encounter (statuses as of 11/20/2023) Immunizations Name Administration Dates Next Due COVID-19 mRNA, LNP-s, No Pre serve, 2-Dose Series (Amazing Photo Letters) 02/05/2021,01/08/2021 COVID-19, LNP-s, No Preserve , Ye-sucrose, [...] Care Team (Late st Contact Info) Description 12/14/2023 2:00 PM EST Nurse Only Ancillary [address] [place] [address] [place], Nurse [address] [place] [address] 12/15/2023 2:00 PM EST Immunization/Injec tion Hematology/Oncology Treatment, [place] 200 [facility] [place] [address] Nurse, Med [address] [place] [address] 12/26/2023 11:15 AM EST Office Visit Hematology/Oncology [facility] [place] [address] [facility] [place] [address] Jitendra Aguero MD [address] [facility] [place] [address] 12/29/2023 12:30 PM EST [facility] Visit [facility] [place] 132 [facility] [place] [address] Marisa Pacheco, RN [address] [place] [address] 01/02/2024 1:40 PM EST Office Visit Pharmacy, [address] [place] [address] [place] [address] 01/02/2024 2:20 PM EST Office Visit Family Medicine [address] [place] [phone] Dhruv Moss MD [address] [place] [address] [place] [address] 07/03/2024 1:30 PM EDT Imaging Radiology [address] [place] [address] Pending Results Name Type Priority Associated Diagnoses Date /Time HEMOGLOBIN A1C Lab Routine Type 2 diabetes mellitus with hemoglobin A1c goal of less than 7.0% (HCC) 11/20/2023 1:19 PM EST CBC WITH WBC DIFFERENTIAL Lab STAT MDS (myelodysplastic syndrome), high grade (HCC) 11/20/2023 1:22 PM EST CBC Lab STAT MDS (myelodysplastic syndrome), high grade (HCC) 11/20/2023 1:22 PM EST DIFFERENTIAL, AUTOMATED Lab STAT MDS (myelodysplastic syndrome), high grade (HCC) 11/20/2023 1:22 PM EST Scheduled Procedures Name Priority Associated Diagnoses Date/Ti me COLONOSCOPY FLEXIBLE PROXIMA L DIAGNOSTIC Recall Encounter for screening colonoscopy Health Maintenance Due Date Last Done Comments Hepatitis B (1 of 3 - Risk 3-dose series) 2008 HbA1c 06/05/2023 12/06/2022, 08/13, 03/08/2022, Additional history exists COVID-19 Vaccine ( season) 2023 12/06/2021, 02/05/2021, 01/08/2021 Influenza Vaccine (FLU shot) (#1) 2023 07/17/2020, 07/13/2020, 07/25/2019, Additional history exists *BISPHONATE OR OTHER ACCEPTABLE MEDICATION NEEDED FOR OSTEOPOROSIS (REFER TO SMARTSET #1146) 11/06/2023 TSH 12/06/2023 12/06/2022, 1011/2021, 03/08/2022, Additional history exists Depression Screening 12/12/2023 12/12/2022 COLONOSCOPY-EVERY 5 YRS AGES 18-100 05/06/2024 05/06/2019, 05/06/2019 Diabetic Eye Exam 05/12/2024 05/12/2023, , 05/12/2023, Additional history exists Diabetic Foot Exam 06/05/2024 06/05/2023, 0 06/03/2022, 06/01/2021, Additional history exists GFR 06/07/2024 06/07/2023, 05/13, 05/08/2023, Additional history exists Albumin/Creatinine Ratio 09/15/2024 023, 03/08/2022, 10/29/2019, Additional history exists DXA Scan 06/13/2025 06/13/2023, 03/16/2015 DTaP,Tdap,and Td Vaccines (3 - Td or Tdap) 11/10/2026 11/10/2016, 03/30/2011 VITAMIN D LEVEL ONCE IN A LIFETIME-USE SMARTSET# [id number] Completed 05/11/2015 Zoster Vaccines Completed 10/30/2020, 02/2020, 07/13/2020, Additional history exists Pneumococcal Vaccine: 65+ Years Completed 06/10/2022, 01/06/2017, 10/09/2015, Additional history exists GARDASIL-HPV IMMUNIZATION SERIES Aged Out No longer eligible based on patient's age to complete this topic MENINGOCOCCAL (MENACTRA/MENVEO) Aged Out No longer eligible based on patient's age to complete this topic documented as of this encounter Medical Devices Implanted Type Area Manager People Device Identifier Shelf Expiration Date Model / Serial / Lot Port Pwr Mri Isp Profile - [id number] Implanted:Qty: 1 on 07/24/2020 by Akash Castillo MD at OR [facility] Right: Chest CR BARD : PERIPHERAL VASCULAR 04/12/2021 [id number] / / [id number] documented as of this encounter Visit Diagnoses Diagnosis Type 2 diabetes mellitus with hemoglobin A1c goal of less than 7.0% (HCC) Type 2 diabetes mellitus with hemoglobin A1c goal of less than 8.0% (HCC) MDS (myelodysplastic syndrome), high grade (HCC) High [...] the patient have Health Care Power of Nut Orchardist? No Code Status History Code Status Date Activated Date Inactivated Comments Full Code 07/27/2021 7:04 PM 07/31/2021 5:19 PM This order reflects the patients wishes and were consensually agreed upon. Question Answer Comments Discussion of Advance Directives occurred with: Patient Does the patient have a Living Will? No Does the patient have Health Care Power of Nut Orchardist? No Full Code 07/25/2021 12:43 PM 07/25/2021 11:03 PM Thi s order reflects the patients wishes and were consensually agreed upon. Question Answer Comments Discussion of Advance Directives occurred with: Patient/Family Does the patient have a Living Will? No Does the patient have Health Care Power of Nut Orchardist? No Full Code 06/12/2017 2:29 PM 06/12/2017 10:37 PM This order reflects the patients wishes and were consensually agreed upon. Question Answer Comments Discussion of Advance Directives occurred with: Not Discussed Does the patient have a Living Will? No Does the patient have Health Care Power of Nut Orchardist? No Healthcare Agents on File Name Relationship Healthcare Agent Relationshi p Communication Juanita Silva Adult Child Health Care Agent Care Teams Pest Control Technician Relationship Specialty Start Date End Date Dhruv Moss MD [address] [place] [address] [place] [address] PCP - General Family Medicine 08/27/21 documented as of this encounter
--- OUTSIDE RECORDS SUMMARY | 2024-02-26 04:37 | External Medical Summary ---
Author Name Unknown Address Unknown Organization K01:LABORATORY [facility] - [facility] [address] [place] [address] Laboratory Report Ordering Provider Test Date Status ANN MUNGUIA 11/08/2023 12:01:54 Final Observation Date Value Abnormality Reference (Units ) Status WBC, Total 11/08/2023 12:01:54 5.76 4.00-10.80 (K/uL) Final RBC 11/08/2023 12:01:54 2.44 3.85-5.15 (M/uL) Final Hemoglobin 11/08/2023 12:01:54 10.0 Below low normal 12.0-15.3 (g/dL) Final HCT 11/08/2023 12:01:54 29.6 Below low normal 36.0-45.2 (%) Final MCV 11/08/2023 12:01:54 121.3 81.5-97.5 (fL) Final MCH 11/08/2023 12:01:54 41.0 27.0-34.0 (pg) Final MCHC 11/08/2023 12:01:54 33.8 32.0-36.0 (g/dL) Final RDW 11/08/2023 12:01:54 13.9 11.5-15.5 (%) Final Platelets 11/08/2023 12:01:54 18 Below lower panic limits 140-400 (K/uL) Final MPV 11/08/2023 12:01:54 10.3 6.6-11.1 (fL) Final Nucleated erythrocytes/100 leukocytes [Ratio] in Blood by Automated count 11/08/2023 12:01:54 0 <=0 (/100 WBCs) Final Performing Location LABORATORY [facility] - [address] [place] [address]
--- OUTSIDE RECORDS SUMMARY | 2024-02-26 04:37 | External Medical Summary | Summary of Care ---
Author Name Unknown Organization [facility] Address [address] [facility] [place] [address] Phone [phone] Care Team Providers Care Tube Room Supervisor Name Role Phone Dhruv Moss MD Primary Care Provide r Reason for Visit * Reason Onset Date Comments Test Results Lab 11/21/2023 Encounter Details Date Type Department Care Team (Late st Contact Info) Description 11/21/2023 Telephone Hematology/Oncology [facility] [place] [address] [facility] [place] [address] Jitendra Aguero MD [facility] [place] [address] Test Results Lab Allergies No known active allergiesdocumented as of this encounter (statuses as of 11/21/2023) Medications Medication Sig Dispensed Refills Start Date [...] for Nausea. 60 Tablet 3 12/09/2021 Active Overture TechnologiesTouch Delica Lancets 30GIndications:Type 2 diabetes mellitus with hemoglobin A1c goal of less than 8.0% ([facility]) Use to test blood sugar three times a day DXe11.9 300 Each 3 12/16/2021 Active O[employer]ure TechnologiesTouch Verio In Vitro Strip (Glucose Blood)Indications:Ty pe 2 diabetes mellitus with hemoglobin A1c goal of less than 8.0% ([facility]) Use to test blood sugar three times a day DXe11.9 300 Strip 3 12/16/2021 Active Overture TechnologiesTouch Verio Flex System w/Device Kit Use as directed . 0 12/16/2021 Active Magnesium 100 MG Oral TabletIndications:bowers pplement Take 1 Tablet by mouth in the morning. Pt states every 3 days. 0 Active Acetaminophen 500 MG Oral Tablet Take 1 Tablet by mouth every 6 hours as needed. 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 Date of Transplant: 09/01/2021 Conditioning Regimen: Fludarabine / Busulfan 2 with post-transplant Cytoxan ABO/Rh: A Positive CMV status: CMV Positive--- GRID: [id number] / DID: [id number] Matched Unrelated 10/24--- DPB1 Match ABO/Rh: A [...] Thrombocytopenia 12/06/2022 Last Assessment & Plan: Platelets 71881 on 03/20 Questionable hematuria Urinary incontinence 09/12/2022 [...] failure. Does not have any evidence of upsoe-lsormi-pkvt disease Last Assessment & Plan: Continues to [...] -continue venlafaxine Coronary artery disease invo lving [place] coronary artery of [place] heart without angina pectoris 06/12/2017 Overview: S/P EDIL to LAD on 06/12/17 Last Assessment & Plan: No angina - Continue atorvastatin, isosorbide, metoprolol - no ASA due to thrombocytopenia Dyslipidemia, goal LDL below 70 11/25/2011 Last Assessment & Plan: Patient having no issues. She continues on Lipitor 40 mg daily Last lab I will was that I can find were from [phone] Assessment/plan: Dyslipidemia with patient currently taking Lipitor [...] as of this encounter (statuses as of 11/21/2023) Resolved Problems Problem Noted Date Diagnosed Date [...] as of this encounter (statuses as of 11/21/2023) Immunizations Name Administration Dates Next Due COVID-19 [...] Telephone Encounter - Bogdan Gutiérrez RN - 11/21/2023 12:32 PM EST MyG sent. * Telephone Encounter - Bogdan Gutiérrez RN - 11/21/2023 12:30 PM EST ----- Message from Jitendra Aguero MD sent at 11/21/2023 9:27 AM EST ----- Blood workup done on 11/20/2023: -WBC 5000, H&H of 10.2/29.6, [place] [address] -ANC 1500, Absolute lymphocyte count 2600 Overall mild anemia, stable thrombocytopenia. No need for blood or Platelet transfusion Repeat CBCD every weekly documented in this encounter Plan of Treatment Upcoming Encounters Date Type Department Care Team (Late st Contact Info) Description 12/14/2023 2:00 PM EST Nurse Only Ancillary [address] [place] [address] [place], Nurse [address] [place] [address] 12/15/2023 2:00 PM EST Immunization/Injec tion Hematology/Oncology Treatment, [place] [address] [place] [address] Nurse, Med 4 [address] [facility] [place] [address] 12/26/2023 11:15 AM EST Office Visit Hematology/Oncology [facility] [address] [place] [place] [address] Jitendra Aguero MD [address] [facility] [place] [address] 12/29/2023 12:30 PM EST [facility] [place] [address] Marisa Pacheco, TANYA [address] [place] [address] 01/02/2024 1:40 PM EST Office Visit Pharmacy, [address] [place] [address] [place] [address] 01/02/2024 2:20 PM EST Office Visit Family Medicine [address] [place] [phone] Dhruv Moss MD [address] [place] [address] [place] [address] 07/03/2024 1:30 PM EDT Imaging Radiology [address] [place] [address] Scheduled Procedures Name Priority Associated Diagnoses Date/Ti [...] D LEVEL ONCE IN A LIFETIME-USE SMARTSET# 44449 Completed 05/11/2015 Zoster Vaccines Completed 10/30/2020, 02/2020, 07/13/2020, Additional history exists Pneumococcal Vaccine: 65+ Years Completed 06/10/2022, 01/06/2017, 10/09/2015, Additional history exists GARDASIL-HPV IMMUNIZATION SERIES Aged Out No longer eligible based on patient's age to complete this topic MENINGOCOCCAL (MENACTRA/MENVEO) Aged Out No longer eligible based on patient's age to complete this topic documented as of this encounter Medical Devices Implanted Type Area Glass Enamel Mixer Device Identifier Shelf Expiration Date Model / Serial / Lot Port Pwr Mri Isp Profile - [id number] Implanted:Qty: 1 on 07/24/2020 by Akash Castillo MD at OR [facility] Right: Chest CR BARD : PERIPHERAL VASCULAR 04/12/2021 [id number] / / [id number] documented as of this encounter Advance Directives [...] the patient have Health Care Power of Equip Tech? No Code Status History Code Status Date Activated Date Inactivated Comments Full Code 07/27/2021 7:04 PM 07/31/2021 5:19 PM This order reflects the patients wishes and were consensually agreed upon. Question Answer Comments Discussion of Advance Directives occurred with: Patient Does the patient have a Living Will? No Does the patient have Health Care Power of Equip Tech? No Full Code 07/25/2021 12:43 PM 07/25/2021 11:03 PM Thi s order reflects the patients wishes and were consensually agreed upon. Question Answer Comments Discussion of Advance Directives occurred with: Patient/Family Does the patient have a Living Will? No Does the patient have Health Care Power of Equip Tech? No Full Code 06/12/2017 2:29 PM 06/12/2017 10:37 PM This order reflects the patients wishes and were consensually agreed upon. Question Answer Comments Discussion of Advance Directives occurred with: Not Discussed Does the patient have a Living Will? No Does the patient have Health Care Power of Equip Tech? No Healthcare Agents on File Name Relationship Healthcare Agent Relationshi p Communication Juanita Dalton Adult Child Health Care Agent Care Teams Tube Room Supervisor Relationship Specialty Start Date End Date Dhruv Moss MD [address] [place] [address] [place] [address] PCP - General Family Medicine 08/27/21 documented as of this encounter
--- OUTSIDE RECORDS SUMMARY | 2024-02-26 04:37 | External Medical Summary | Summary of Care ---
Author Name Unknown Organization [facility] [address] [facility] [address] Phone [phone] Care Team Providers Care Core Microarchitect Name Role Phone Dhruv Moss MD Primary Care Provide r Encounter Details Date Type Department Care Team (Late st Contact Info) Description 11/08/2023 2:00 PM EST Home Visit [facility], [facility] [address] [facility] [place] [address] Marisa Pacheco, RN 132 [facility] [place] [address] Allergies No known active allergiesdocumented as of this encounter (statuses as of 11/08/2023) Medications Medication Sig Dispensed Refills Start Date End Date Status Cholecalciferol (VITAMIN D3) 5000 UNITS TabletIndications:bowers pplement Take 1 Tablet by mouth in the morning. 0 05/14/2015 Active BD Pen Needle Mini U/F 31G X 5 MM (Insulin Pen Needle)Indications:T ype 2 diabetes mellitus with hemoglobin A1c goal of less than 8.0% ([facility]) Use with xultophy once a [...] for Nausea. 60 Tablet 3 12/09/2021 Active NuScriptRxToSportlyzer Delica Lancets 30GIndications:Type 2 diabetes mellitus with hemoglobin A1c goal of less than 8.0% ([facility]) Use to test blood sugar three times a day DXe11.9 300 Each 3 12/16/2021 Active NuScriptRxTouch Verio In Vitro Strip (Glucose Blood)Indications:Ty pe 2 diabetes mellitus with hemoglobin A1c goal of less than 8.0% ([facility]) Use to test blood sugar three times a day DXe11.9 300 Strip 3 12/16/2021 Active NuScriptRxTouch Verio Flex System w/Device Kit Use as directed . 0 12/16/2021 Active Magnesium 100 MG Oral TabletIndications:obwers pplement Take 1 Tablet by mouth in the morning. Pt states every 3 days. 0 Active Acetaminophen 500 MG Oral Tablet Take 1 Tablet by mouth every 6 hours as needed. 0 Active Nystatin 044488 UNIT/GM External Cream Apply topically to affected [...] 24 Hour (Imdur)Indications:C oronary artery disease involving [place] coronary artery of [place] heart without angina pectoris,HTN, goal below 140/90 [...] hemoglobin A1c goal of less than 8.0% (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 Date of Transplant: 09/01/2021 Conditioning Regimen: Fludarabine / Busulfan 2 with post-transplant Cytoxan ABO/Rh: A Positive CMV status: CMV Positive--- GRID: [id number] / DID: [id number] Matched Unrelated 10/24--- DPB1 Match ABO/Rh: A [...] Thrombocytopenia 12/06/2022 Last Assessment & Plan: Platelets 90089 on 03/20 Questionable hematuria Urinary incontinence 09/12/2022 [...] failure. Does not have any evidence of lmdlk-vqxart-txlb disease Last Assessment & Plan: Continues to [...] -continue venlafaxine Coronary artery disease invo lving [place] coronary artery of [place] heart without angina pectoris 06/12/2017 Overview: S/P EDIL to LAD on 06/12/17 Last Assessment & Plan: No angina - Continue atorvastatin, isosorbide, metoprolol - no ASA due to thrombocytopenia Dyslipidemia, goal LDL below 70 11/25/2011 Last Assessment & Plan: Patient having no issues. She continues on Lipitor 40 mg daily Last lab I will was that I can find were from [phone] Assessment/plan: Dyslipidemia with patient currently taking Lipitor [...] as of this encounter (statuses as of 11/08/2023) Resolved Problems Problem Noted Date Diagnosed Date [...] as of this encounter (statuses as of 11/08/2023) Immunizations Name Administration Dates Next Due COVID-19 mRNA, LNP-s, No Pre serve, 2-Dose Series ([employer]) 02/05/2021,01/08/2021 COVID-19, LNP-s, No Preserve , Ye-sucrose, [...] Sign Reading Time Taken Comments Blood Pressure 106/58 11/08/2023 11:10 AM EST Pulse 80 11/08/2023 11:10 AM EST Temperature 36.1 C (97 F) 11/08/2023 11:10 AM EST Respiratory Rate 18 11/08/2023 11:10 AM EST Oxygen Saturation 99% 11/08/2023 11:10 AM EST Inhaled Oxygen Concentration - - Weight - [...] Progress Notes * Marisa Pacheco RN - 11/08/2023 10:59 AM EST [facility] at [facility] Rn Pacu Visit Date: 11/08/2023 Time: 10:59 AM Name: Ruth Burger : 1950 Current Concerns: Patient seen for follow up- MDS- H/o stem cell transplant, CAD, DM2, Osteoarthritis Recent provider appointment- PT ordered- Ethan Ocasio- sarath patient no appointment set up for admit. Encouraged to call [facility] if she doesn't hear anything by the end of the week(holidays) Blood sugars- 11/08- 178 11/07- 220,283 11/06- 224 11/05- 174, 299 11/04- 190, 341 11/03- 221, 173 VS wnl Lungs clear slightly diminished Sob with exertion No LE edema noted Voiding without difficulty Bowels wnl- per report Appetite good Water encouraged APAP prn pain CBC obtained(no appointment with mobile lab noted) Ordered weekly by hem/onc Problems/Symptoms: Review of Systems Constitutional: Negative. HENT: Negative. Respiratory: Positive for shortness of breath. Cardiovascular: Negative. Gastrointestinal: Negative. Genitourinary: Negative. Musculoskeletal: Positive for arthralgias and gait problem. Skin: Negative. Hematological: Negative. Psychiatric/Behavioral: Negative. Physical Exam: [facility] 10/29/2000 Pain 8- hips and knees- prn APAP Physical Exam Constitutional: Appearance: Normal appearance. Cardiovascular: Rate and Rhythm: Normal rate. Rhythm irregular. Pulses: Normal pulses. Pulmonary: Effort: Pulmonary effort [...] and oriented to person, place, and time. [facility] Completed this Visit: Yes. [facility]: Reason Completed: Status post fall [facility] ([facility]) Fall Risk Assessment Tool Age 65+: Yes (11/08/231099) Diagnosis (3 or more co-existing): Yes (11/08/231099) Prior history of falls within 3 months: Yes (11/08/231099) Incontinence: Yes (11/08/231099) Visual impairment: Yes (11/08/231099) Impaired functional mobility: Yes (11/08/231099) Environmental hazards: No (11/08/231099) Poly Pharmacy (4 or more prescriptions - any type): Yes (11/08/231099) Pain affecting level of function: No (11/08/231099) Cognitive impairment: No (11/08/231099) Score - a score of 4 or more is considered at risk for fallin (11/08/231099) [facility] Interventions: Fall education provided, reviewed/provided Fall brochure Treatment/Plan: CBC to [facility] Continue medications as prescribed Keep all upcoming MD appointments Fall precautions [facility] HH- PT Diabetic diet- reinforced Blood sugars TID APAP prn hip/knee pain RN CM follow up in 7 weeks Home Interventions Provided: Reinforced current Plan of Care, including self-management and medication regimen Patient Needs to Remember: Call [facility] with any medical concerns/ red flag Referrals Needed: N/a Follow Up: Is there cellular connectivity/connectivity in the home? Yes Does the patient have internet in the home? Yes Patient encouraged to call the intake phone number for all urgent but not emergent issues. Scheduled to follow up with patient in 7 weeks. Marisa Mendoza RN 11/08/2023 10:59 AM documented in this encounter Plan of Treatment Upcoming Encounters Date Type Department Care Team (Late st Contact Info) Description 11/20/2023 1:00 PM EST Office Visit Pharmacy, [address] [place] [address] [place] [address] 12/14/2023 2:00 PM EST Nurse Only Ancillary [address] [place] [address] [place], Nurse Annual [address] [place] [address] 12/15/2023 2:00 PM EST Immunization/Injec tion Hematology/Oncology Treatment, [place] [address] [facility] [address] [place] [address] Nurse, Med [address] [facility] [place] [address] 12/26/2023 11:15 AM EST Office Visit Hematology/Oncology [facility] [place] [address] [facility] [place] [address] Jitendra Aguero MD [address] [facility] [place] [address] 12/29/2023 12:30 PM EST Home Visit [facility] [place], [address] [place] [address] Marisa Pacheco, RN [address] [place] [address] 01/02/2024 2:20 PM EST Office Visit Family Medicine [address] [place] [phone] Dhruv Moss MD [address] [place] [address] [place] [address] 07/03/2024 1:30 PM EDT Imaging Radiology [address] [place] [address] Scheduled Procedures Name Priority Associated Diagnoses Date/Ti [...] D LEVEL ONCE IN A LIFETIME-USE SMARTSET# 93360 Completed 05/11/2015 Zoster Vaccines Completed 10/30/2020, 02/2020, 07/13/2020, Additional history exists Pneumococcal Vaccine: 65+ Years Completed 06/10/2022, 01/06/2017, 10/09/2015, Additional history exists GARDASIL-HPV IMMUNIZATION SERIES Aged Out No longer eligible based on patient's age to complete this topic MENINGOCOCCAL (MENACTRA/MENVEO) Aged Out No longer eligible based on patient's age to complete this topic documented as of this encounter Medical Devices Implanted Type Area Assayer Device Identifier Shelf Expiration Date Model / Serial / Lot Port Pwr Mri Isp Profile - [id number] Implanted:Qty: 1 on 07/24/2020 by Akash Castillo MD at OR [facility] Right: Chest CR BARD : PERIPHERAL VASCULAR 04/12/2021 [id number] / / [id number] documented as of this encounter Advance Directives [...] the patient have Health Care Power of Sales Analyst? No Code Status History Code Status Date Activated Date Inactivated Comments Full Code 07/27/2021 7:04 PM 07/31/2021 5:19 PM This order reflects the patients wishes and were consensually agreed upon. Question Answer Comments Discussion of Advance Directives occurred with: Patient Does the patient have a Living Will? No Does the patient have Health Care Power of Sales Analyst? No Full Code 07/25/2021 12:43 PM 07/25/2021 11:03 PM Thi s order reflects the patients wishes and were consensually agreed upon. Question Answer Comments Discussion of Advance Directives occurred with: Patient/Family Does the patient have a Living Will? No Does the patient have Health Care Power of Sales Analyst? No Full Code 06/12/2017 2:29 PM 06/12/2017 10:37 PM This order reflects the patients wishes and were consensually agreed upon. Question Answer Comments Discussion of Advance Directives occurred with: Not Discussed Does the patient have a Living Will? No Does the patient have Health Care Power of Sales Analyst? No Healthcare Agents on File Name Relationship Healthcare Agent Relationshi p Communication Juanita Silva Adult Child Health Care Agent Care Teams Core Microarchitect Relationship Specialty Start Date End Date Dhruv Moss MD [address] [place] [id number] PCP - General Family Medicine 08/27/21 documented as of this encounter
--- OUTSIDE RECORDS SUMMARY | 2024-02-26 04:37 | External Medical Summary ---
Author Name Unknown Address Unknown Organization [id number][place] [facility] [place] [facility] [address] [place] [address] Laboratory Report Ordering Provider Test Date Status ANN MUNGUIA 11/20/2023 13:22:21 Final Observation Date Value Abnormality Reference (Units ) Status WBC, Total 11/20/2023 13:22:21 5.04 4.00-10.80 (K/uL) Final RBC 11/20/2023 13:22:21 2.44 3.85-5.15 (M/uL) Final Hemoglobin 11/20/2023 13:22:21 10.2 Below low normal 12.0-15.3 (g/dL) Final HCT 11/20/2023 13:22:21 29.6 Below low normal 36.0-45.2 (%) Final MCV 11/20/2023 13:22:21 121.3 81.5-97.5 (fL) Final MCH 11/20/2023 13:22:21 41.8 27.0-34.0 (pg) Final MCHC 11/20/2023 13:22:21 34.5 32.0-36.0 (g/dL) Final RDW 11/20/2023 13:22:21 13.9 11.5-15.5 (%) Final Platelets 11/20/2023 13:22:21 16 Below lower panic limits 140-400 (K/uL) Final MPV 11/20/2023 13:22:21 12.3 6.6-11.1 (fL) Final Nucleated erythrocytes/100 leukocytes [Ratio] in Blood by Automated count 11/20/2023 13:22:21 0 <=0 (/100 WBCs) Final Performing Location [place] [facility] [place] [address] [place] [address]
--- OUTSIDE RECORDS SUMMARY | 2024-02-26 04:37 | External Medical Summary ---
Author Name Unknown Address Unknown Organization [id number]:[place] [place] [address] [facility] [address] Laboratory Report Ordering Provider Test Date Status GEORGE MICHAUDERY 11/20/2023 13:19:19 Final Observation Date Value Abnormality Reference (Units ) Status HbA1C 11/20/2023 13:19:19 7.6 Above high normal 4. 0-5.6 (%) Final The use of HbA1c to monitor glycemic status is based on normal hemoglobin and HbA composition. This test should not be used in patients with abnormal hemoglobin that affects the half life of the red blood cell or the in vivo glycation rates. Glucose, estimated average 11/20/2023 13:19:19 171 Above high normal <126 (mg/dL) Jose J molina Performing Location [facility] [place] [address] [facility] [address]
--- OUTSIDE RECORDS SUMMARY | 2024-02-26 04:37 | External Medical Summary | Summary of Care ---
Author Name Unknown Organization [facility] Address [address] [facility] [address] Phone [phone] Care Team Providers Care Master Automotive Technician Name Role Phone Dhruv Moss MD Primary Care Provide r Reason for Visit * Reason Onset Date Comments [facility]: Maintenance 11/03/2023 Encounter Details Date Type Department Care Team (Late st Contact Info) Description 11/03/2023 Telephone [facility], [facility] [address] [facility] [place] [address] [facility], Nurse [address] [place] [address] [facility]: Maintenance Allergies No known active allergiesdocumented as of [...] for Nausea. 60 Tablet 3 12/09/2021 Active LoadStar Sensors Delica Lancets 30GIndications:Type 2 diabetes mellitus with hemoglobin A1c goal of less than 8.0% ([facility]) Use to test blood sugar three times a day DXe11.9 300 Each 3 12/16/2021 Active LitheraToSapling Learning Verio In Vitro Strip (Glucose Blood)Indications:Ty pe 2 diabetes mellitus with hemoglobin A1c goal of less than 8.0% ([facility]) Use to test blood sugar three times a day DXe11.9 300 Strip 3 12/16/2021 Active [employer] Verio Flex System w/Device Kit Use as directed . 0 12/16/2021 Active Magnesium 100 MG Oral TabletIndications:bowers pplement Take 1 Tablet by mouth in the morning. Pt states every 3 days. 0 Active Acetaminophen 500 MG Oral Tablet Take 1 Tablet by mouth every 6 hours as needed. 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 Date of Transplant: 09/01/2021 Conditioning Regimen: Fludarabine / Busulfan 2 with post-transplant Cytoxan ABO/Rh: A Positive CMV status: CMV Positive--- GRID: [id number] / DID: [id number] Matched Unrelated 10/24--- DPB1 Match ABO/Rh: A [...] Thrombocytopenia 12/06/2022 Last Assessment & Plan: Platelets 14319 on 03/20 Questionable hematuria Urinary incontinence 09/12/2022 [...] failure. Does not have any evidence of djhcl-grjgbz-yeny disease Last Assessment & Plan: Continues to [...] -continue venlafaxine Coronary artery disease invo lving prairie band coronary artery of prairie band heart without angina pectoris 06/12/2017 Overview: S/P EDIL to LAD on 06/12/17 Last Assessment & Plan: No angina - Continue atorvastatin, isosorbide, metoprolol - no ASA due to thrombocytopenia Dyslipidemia, goal LDL below 70 11/25/2011 Last Assessment & Plan: Patient having no issues. She continues on Lipitor 40 mg daily Last lab I will was that I can find were from [phone] Assessment/plan: Dyslipidemia with patient currently taking Lipitor [...] mRNA, LNP-s, No Pre serve, 2-Dose Series (Ziptask) 02/05/2021,01/08/2021 COVID-19, LNP-s, No Preserve , Ye-sucrose, [...] Miscellaneous Notes * Telephone Encounter - Winsome Lopez OSA - 11/08/2023 8:02 AM EST There is a note from [facility] on 10/27/23 with Surya Morgan PA-C Note faxed today. VEDA Gallardo * Telephone Encounter - Seble Mracano RN - 11/03/2023 2:00 PM EST Images from the original note were not included. Faxed: [facility] f: [phone] Med List as of 11/03/23 Provider 10/27/23 Acute Home visit note Transmission confirmed: Mayuri Marcano RN, BSN [facility] Intake Triage Coordinator [phone] * Telephone Encounter - Seble Marcano RN - 11/03/2023 11:17 AM EST PC marlin Car with [facility] Got order for Home Health Therapy They need current med list and most recent provider exam note/H&P Faxed med list No provider note in chart Notification made that note in needed before services can start Mayuri Marcano RN, BSN [facility] Intake Triage Coordinator [phone] documented in this encounter Plan of Treatment Upcoming Encounters Date Type Department Care Team (Late st Contact Info) Description 11/08/2023 2:00 PM EST Home Visit [facility], [facility] [address] [place] [address] Marisa Pacheco RN [address] [place] [address] 11/20/2023 1:00 PM EST Office Visit Pharmacy, [address] [place] [address] [place] [address] 12/14/2023 2:00 PM EST Nurse Only Ancillary [address] [place] [address] [place], Nurse [address] [place] [address] 12/15/2023 2:00 PM EST Immunization/Injec tion Hematology/Oncology Treatment, [place] [address] [facility] [place] [address] Nurse, Med [address] [facility] [place] [address] 12/26/2023 11:15 AM EST Office Visit Hematology/Oncology [facility] [place] [address] [facility] [place] [address] Jitendra Aguero MD [address] [facility] [place] [address] 01/02/2024 2:20 PM EST Office Visit Family Medicine [address] [place] [phone] Dhruv Moss MD [address] [place] [address] [place] [address] 07/03/2024 1:30 PM EDT Imaging Radiology [address] [place] [address] Scheduled Procedures Name Priority Associated Diagnoses Date/Ti [...] D LEVEL ONCE IN A LIFETIME-USE SMARTSET# 95254 Completed 05/11/2015 Zoster Vaccines Completed 10/30/2020, 02/2020, 07/13/2020, Additional history exists Pneumococcal Vaccine: 65+ Years Completed 06/10/2022, 01/06/2017, 10/09/2015, Additional history exists GARDASIL-HPV IMMUNIZATION SERIES Aged Out No longer eligible based on patient's age to complete this topic MENINGOCOCCAL (MENACTRA/MENVEO) Aged Out No longer eligible based on patient's age to complete this topic documented as of this encounter Medical Devices Implanted Type Area Asset Manager Device Identifier Shelf Expiration Date Model / Serial / Lot Port Pwr Mri Isp Profile - [id number] Implanted:Qty: 1 on 07/24/2020 by Akash Castillo MD at OR [facility] Right: Chest CR BARD : PERIPHERAL VASCULAR 04/12/2021 [id number] / / [id number] documented as of this encounter Advance Directives [...] the patient have Health Care Power of Oil Field Worker? No Code Status History Code Status Date Activated Date Inactivated Comments Full Code 07/27/2021 7:04 PM 07/31/2021 5:19 PM This order reflects the patients wishes and were consensually agreed upon. Question Answer Comments Discussion of Advance Directives occurred with: Patient Does the patient have a Living Will? No Does the patient have Health Care Power of Oil Field Worker? No Full Code 07/25/2021 12:43 PM 07/25/2021 11:03 PM Thi s order reflects the patients wishes and were consensually agreed upon. Question Answer Comments Discussion of Advance Directives occurred with: Patient/Family Does the patient have a Living Will? No Does the patient have Health Care Power of Oil Field Worker? No Full Code 06/12/2017 2:29 PM 06/12/2017 10:37 PM This order reflects the patients wishes and were consensually agreed upon. Question Answer Comments Discussion of Advance Directives occurred with: Not Discussed Does the patient have a Living Will? No Does the patient have Health Care Power of Oil Field Worker? No Healthcare Agents on File Name Relationship Healthcare Agent [facility] Communication Juanita Silva Adult Child Health Care Agent Care Teams Master Automotive Technician Relationship Specialty Start Date End Date Dhruv Moss MD [address] [place] [address] PCP - General Family Medicine 08/27/21 documented as of this encounter
--- OUTSIDE RECORDS SUMMARY | 2024-02-26 04:37 | External Medical Summary ---
Author Name Unknown Address Unknown Organization K01:[facility] [place] [address] [place] [address] Laboratory Report Ordering Provider Test Date Status ANN MUNGUIA 12/06/2023 08:33:00 Final Observation Date Value Abnormality Reference (Units ) Status WBC, Total 12/06/2023 08:33:00 4.98 4.00-10.80 (K/uL) Final RBC 12/06/2023 08:33:00 2.46 3.85-5.15 (M/uL) Final Hemoglobin 12/06/2023 08:33:00 10.1 Below low normal 12.0-15.3 (g/dL) Final HCT 12/06/2023 08:33:00 30.3 Below low normal 36.0-45.2 (%) Final MCV 12/06/2023 08:33:00 123.2 81.5-97.5 (fL) Final MCH 12/06/2023 08:33:00 41.1 27.0-34.0 (pg) Final MCHC 12/06/2023 08:33:00 33.3 32.0-36.0 (g/dL) Final RDW 12/06/2023 08:33:00 14.4 11.5-15.5 (%) Final Platelets 12/06/2023 08:33:00 15 Below lower panic limits 140-400 (K/uL) Final MPV 12/06/2023 08:33:00 9.9 6.6-11.1 (fL) Final Nucleated erythrocytes/100 leukocytes [Ratio] in Blood by Automated count 12/06/2023 08:33:00 0 <=0 (/100 WBCs) Final Performing Location [facility] [address] [place] [address]
--- OUTSIDE RECORDS SUMMARY | 2024-02-26 04:37 | External Medical Summary | Summary of Care ---
Author Name Unknown Organization [facility] Address [address] [place] [address] Phone [phone] Care Team Providers Care General Internal Medicine Physician Name Role Phone Dhruv Moss MD Primary Care Provide r Reason for Visit * Reason Onset Date Comments Test Results Lab 12/08/2023 Encounter Details Date Type Department Care Team (Late st Contact Info) Description 12/08/2023 Telephone Hematology/Oncology Treatment, [facility] [address] [place] [address] Jitendra Aguero MD [address] [place], [place] [phone] Test Results Lab Allergies No known active allergiesdocumented as of this encounter (statuses as of 12/08/2023) Medications Medication Sig Dispensed Refills Start Date End Date Status Cholecalciferol (VITAMIN D3) 5000 UNITS TabletIndications:bowers pplement Take 1 Tablet by mouth in the morning. 0 05/14/2015 Active BD Pen Needle Mini U/F 31G X 5 MM (Insulin Pen Needle)Indications:T ype 2 diabetes mellitus with hemoglobin A1c goal of less than 8.0% ([facility]) Use with xultophy once a day dx [...] for Nausea. 60 Tablet 3 12/09/2021 Active Peer.im Delica Lancets 30GIndications:Type 2 diabetes mellitus with hemoglobin A1c goal of less than 8.0% ([facility]) Use to test blood sugar three times a day DXe11.9 300 Each 3 12/16/2021 Active Peer.im Verio In Vitro Strip (Glucose Blood)Indications:Ty pe 2 diabetes mellitus with hemoglobin A1c goal of less than 8.0% ([facility]) Use to test blood sugar three times a day DXe11.9 300 Strip 3 12/16/2021 Active MorphyToBig Data Partnership Verio Flex System w/Device Kit Use as directed . 0 12/16/2021 Active Magnesium 100 MG Oral TabletIndications:bowers pplement Take 1 Tablet by mouth in the morning. Pt states every 3 days. 0 Active Acetaminophen 500 MG Oral Tablet Take 1 Tablet by mouth every 6 hours as needed. 0 Active Nystatin 644791 UNIT/GM External Cream Apply topically to affected [...] 24 Hour (Imdur)Indications:C oronary artery disease involving pitka's point coronary artery of pit[place] heart without angina pectoris,HTN, goal below 140/90 [...] goal of less than 8.0% ([facility]) Inject 18 Units under the skin at bedtime. 30 mL 3 07/12/2023 Active NovoLIN R 100 UNIT/ML Injection Solution (insulin REGULAR human)Indications:Ty pe 2 diabetes mellitus with hemoglobin A1c goal of less than 8.0% ([facility]) Inject 8 units with breakfast, 4 units with lunch, and 6 units with dinner + sliding scale of 1 units per every 20 over 140 MAX DAILY DOSE 50 units 50 mL 5 07/25/2023 Active Levemir 100 UNIT/ML Subcutaneous Solution (insulin Detemir)Indications: Type 2 diabetes mellitus with hemoglobin A1c goal of less than 8.0% ([facility]) Inject 18 Units under the skin at [...] grade (HCC),Stem cells transplant status ([facility]),Acquired hypothyroidism 1000 mL IV DAILY PRN 12/08/2021 Active bevaCIZumab (Avastin) inj 1.25 mgIndications: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 Date of Transplant: 09/01/2021 Conditioning Regimen: Fludarabine / Busulfan 2 with post-transplant Cytoxan ABO/Rh: A Positive CMV status: CMV Positive--- GRID: [id number] / DID: [id number] Matched Unrelated 10/24--- DPB1 Match ABO/Rh: A [...] Thrombocytopenia 12/06/2022 Last Assessment & Plan: Platelets 18641 on 03/20 Questionable hematuria Urinary incontinence 09/12/2022 [...] failure. Does not have any evidence of iexuy-idhoul-zism disease Last Assessment & Plan: Continues to [...] -continue venlafaxine Coronary artery disease invo lving [place] coronary artery of [place] heart without angina pectoris 06/12/2017 Overview: S/P EDIL to LAD on 06/12/17 Last Assessment & Plan: No angina - Continue atorvastatin, isosorbide, metoprolol - no ASA due to thrombocytopenia Dyslipidemia, goal LDL below 70 11/25/2011 Last Assessment & Plan: Patient having no issues. She continues on Lipitor 40 mg daily Last lab I will was that I can find were from [phone] Assessment/plan: Dyslipidemia with patient currently taking Lipitor [...] as of this encounter (statuses as of 12/08/2023) Resolved Problems Problem Noted Date Diagnosed Date [...] as of this encounter (statuses as of 12/08/2023) Immunizations Name Administration Dates Next Due COVID-19 [...] encounter Miscellaneous Notes * Telephone Encounter - Maru Chahal RN - 12/08/2023 9:19 AM EST myG sent. * Telephone Encounter - Maru Chahal RN - 12/08/2023 9:18 AM EST ----- Message from Jitendra Aguero MD sent at 12/07/2023 6:57 AM EST ----- Blood workup done on 12/06/2023: - WBC 4900, H&H of 10.1/30.3, platelet count of 15,000. Repeat CBCD in about 2 weeks. If she has bleeding problem, blood work-up in about one week. documented in this encounter Plan of Treatment Upcoming Encounters Date Type Department Care Team (Late st Contact Info) Description 12/13/2023 10:40 AM EST Laboratory Lab Mobile Phlebotomy [facility] [address] [place] [address] [facility] Mobile Home Draw [address] [place] [address] 12/14/2023 2:00 PM EST Nurse Only Ancillary [address] [place] [address] [place], Nurse [address] [place] [address] 12/15/2023 2:00 PM EST Immunization/Injectio n Hematology/Oncology Treatment, [place] [address] [place] [address] Nurse, [facility] [address] [place] [address] 12/20/2023 10:40 AM EST Laboratory Lab Mobile Phlebotomy [facility] [address] [place], [place] [phone] [facility] Mobile Home Draw [address] [place] [address] 12/26/2023 11:15 AM EST Office Visit Hematology/Oncology [facility] [address] [facility] [address] Jitendra Aguero MD [address] [place] [address] 12/27/2023 10:40 AM EST Laboratory Lab Mobile Phlebotomy [facility] [address] [place], [place] [id number] [facility] Mobile Home Draw [address] [place] [address] 12/29/2023 12:30 PM EST [facility] Visit [facility], [facility] [address] [place] [address] Marisa Pacheco, TANYA [address] [place] [address] 01/02/2024 1:40 PM EST Office Visit Pharmacy, [address] [place] [address] [place] [address] 01/02/2024 2:20 PM EST Office Visit Family Medicine [address] [place] [address] Dhruv Moss MD [address] [place] [address] [place] [address] 01/03/2024 10:40 AM EST Laboratory Lab Mobile Phlebotomy [facility] [address] [place] [address] [facility] Mobile Home Draw [address] [place] [address] 01/10/2024 10:40 AM EST Laboratory Lab Mobile Phlebotomy [facility] [address] [place] [address] [facility] Mobile Home Draw [address] [place] [address] 01/17/2024 10:40 AM EST Laboratory Lab Mobile Phlebotomy [facility] [address] [place] [address] [facility] Mobile Home Draw [address] [place] [address] 01/24/2024 10:40 AM EDT Laboratory Lab Mobile Phlebotomy [facility] [address] [place] [address] [facility] Mobile Home Draw [address] [place] [address] 01/31/2024 10:40 AM EDT Laboratory Lab Mobile Phlebotomy [facility] [address] [place] [address] [facility] Mobile Home Draw [address] [place] [address] 02/07/2024 10:40 AM EDT Laboratory Lab Mobile Phlebotomy [facility] [address] [place] [address] [facility] Mobile Home Draw [address] [place] [address] 02/14/2024 10:40 AM EDT Laboratory Lab Mobile Phlebotomy [facility] [address] [place] [address] [facility] Mobile Home Draw [address] [place] [address] 02/21/2024 10:40 AM EDT Laboratory Lab Mobile Phlebotomy [facility] [address] [place] [address] [facility] Mobile Home Draw [address] [place] [address] 07/03/2024 1:30 PM EDT Imaging Radiology [address] [place] [address] Scheduled Procedures Name Priority Associated Diagnoses Date/Ti [...] D LEVEL ONCE IN A LIFETIME-USE SMARTSET# 90043 Completed 05/11/2015 Zoster Vaccines Completed 10/30/2020, 02/2020, 07/13/2020, Additional history exists Pneumococcal Vaccine: 65+ Years Completed 06/10/2022, 01/06/2017, 10/09/2015, Additional history exists GARDASIL-HPV IMMUNIZATION SERIES Aged Out No longer eligible based on patient's age to complete this topic MENINGOCOCCAL (MENACTRA/MENVEO) Aged Out No longer eligible based on patient's age to complete this topic documented as of this encounter Medical Devices Implanted Type Area Electric Freight Car Operator Device Identifier Shelf Expiration Date Model / Serial / Lot Port Pwr Mri Isp Profile - [id number] Implanted:Qty: 1 on 07/24/2020 by Akash Castillo MD at OR [facility] Right: Chest CR BARD : PERIPHERAL VASCULAR 04/12/2021 [id number] / / [id number] documented as of this encounter Advance Directives [...] the patient have Health Care Power of Corporate Safety Coordinator? No Code Status History Code Status Date Activated Date Inactivated Comments Full Code 07/27/2021 7:04 PM 07/31/2021 5:19 PM This order reflects the patients wishes and were consensually agreed upon. Question Answer Comments Discussion of Advance Directives occurred with: Patient Does the patient have a Living Will? No Does the patient have Health Care Power of Corporate Safety Coordinator? No Full Code 07/25/2021 12:43 PM 07/25/2021 11:03 PM Thi s order reflects the patients wishes and were consensually agreed upon. Question Answer Comments Discussion of Advance Directives occurred with: Patient/Family Does the patient have a Living Will? No Does the patient have Health Care Power of Corporate Safety Coordinator? No Full Code 06/12/2017 2:29 PM 06/12/2017 10:37 PM This order reflects the patients wishes and were consensually agreed upon. Question Answer Comments Discussion of Advance Directives occurred with: Not Discussed Does the patient have a Living Will? No Does the patient have Health Care Power of Corporate Safety Coordinator? No Healthcare Agents on File Name Relationship Healthcare Agent [facility] Communication [facility] Adult Child Health Care Agent Care Teams General Internal Medicine Physician Relationship Specialty Start Date End Date Dhruv Moss MD [address] [place] [address] [place] [address] PCP - General Family Medicine 08/27/21 documented as of this encounter
--- OUTSIDE RECORDS SUMMARY | 2024-02-26 04:37 | External Medical Summary ---
Author Name Unknown Address Unknown Organization K01:[facility] [address] [facility] [place] [address] Laboratory Report Ordering Provider Test Date Status ANN MUNGUIA 12/06/2023 08:33:00 Final Observation Date Value Abnormality Reference (Units ) Status SYNC LEUKOCYTES IN BLOOD BY AUTOMATED COUNT 12/06/2023 08:33:00 4.98 4.00-10.80 (K/uL) Final Neutrophils/100 leukocytes in Blood by Manual count 12/06/2023 08:33:00 25.0 Below low normal 40.0-75.0 (%) Final Lymphocytes/100 leukocytes in Blood by Manual count 12/06/2023 08:33:00 68.0 Above high normal 18.0-42.0 (%) Final Monocytes/100 leukocytes in Blood by Manual count 12/06/2023 08:33:00 3.0 1.0-11.0 (%) Final Eosinophils/100 leukocytes in Blood by Manual count 12/06/2023 08:33:00 3.0 0.0-6.0 (%) Final Metamyelocytes/100 leukocytes in Blood by Manual count 12/06/2023 08:33:00 1.0 Above high normal <=0.0 (%) Final Neutrophils [#/volume] in Blood by Manual count 12/06/2023 08:33:00 1.25 Below low normal 1.80-7.70 (K/uL) Final Lymphocytes [#/volume] in Blood by Manual count 12/06/2023 08:33:00 3.39 1.00-4.80 (K/uL) Final Monocytes [#/volume] in Blood by Manual count 12/06/2023 08:33:00 0.15 0.00-1.10 (K/uL) Final Eosinophils [#/volume] in Blood by Manual count 12/06/2023 08:33:00 0.15 0.00-0.70 (K/uL) Final Metamyelocytes [#/volume] in Blood by Manual count 12/06/2023 08:33:00 0.05 Above high normal <=0.00 (K/uL) Final Performing Location [facility] [place] - [address] [facility] [address]
--- OUTSIDE RECORDS SUMMARY | 2024-02-26 04:37 | External Medical Summary | Summary of Care ---
Author Name Unknown Organization [facility] Address [address] [facility] [place] [place] [address] Phone [phone] Care Team Providers Care Travel Journalist Name Role Phone Dhruv Moss MD Primary Care Provide r Reason for Visit * Reason Comments Dosage Adjustment In Person (Anticoag Cl inic) Diabetes Follow-Up Encounter Details Date Type Department Care Team (Late st Contact Info) Description 11/20/2023 1:00 PM EST Office Visit Pharmacy, [address] [place] [address] [place] [address] Type 2 diabetes mellitus with hemoglobin A1c [...] of less than 8.0% (HCC) Use with sudeepltophy once a day dx e11.9 100 Each [...] Tablet (Compazine)Indicatio ns:H/O allogeneic bone marrow transplant ([facility]) Take by mouth 1 Tablet every 6 hours as needed for Nausea. 60 Tablet 3 12/09/2021 Active [employer] Delica Lancets 30GIndications:Type 2 diabetes mellitus with hemoglobin A1c goal of less than 8.0% ([facility]) Use to test blood sugar three times a day DXe11.9 300 Each 3 12/16/2021 Active [employer] MedicalTouch Verio In Vitro Strip (Glucose Blood)Indications:Ty pe 2 diabetes mellitus with hemoglobin A1c goal of less than 8.0% ([facility]) Use to test blood sugar three times a day DXe11.9 300 Strip 3 12/16/2021 Active [employer] MedicalTouch Verio Flex System w/Device Kit Use as directed . 0 12/16/2021 Active Magnesium 100 MG Oral TabletIndications:bowers pplement Take 1 Tablet by mouth in the morning. Pt states every 3 days. 0 Active Acetaminophen 500 MG Oral Tablet Take 1 Tablet by mouth every 6 hours as needed. 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, unspecified whether buttermaker continuous churn insulin use ([facility]) 1.25 mg IZ PRN 05/12/2023 05/11/2024 Active ROPivacaine (Naropin) inj 1.5 mgIndications: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 Does not have any evidence of xftvl-cvjgew-smjn disease Last Assessment & Plan: Continues to [...] -continue venlafaxine Coronary artery disease invo lving ramona coronary artery of ramona heart without angina pectoris 06/12/2017 Overview: S/P EDIL to LAD on 06/12/17 Last Assessment & Plan: No angina - Continue atorvastatin, isosorbide, metoprolol - no ASA due to thrombocytopenia Dyslipidemia, goal LDL below 70 11/25/2011 Last Assessment & Plan: Patient having no issues. She continues on Lipitor 40 mg daily Last lab I will was that I can find were from [id number] Assessment/plan: Dyslipidemia with patient currently taking Lipitor [...] mRNA, LNP-s, No Pre serve, 2-Dose Series ([place]) 02/05/2021,01/08/2021 COVID-19, LNP-s, No Preserve , Ye-sucrose, Ages 12+ ([place]) 12/06/2021 Pneumococcal Conjugate Vacc, 13 Valent (Prevnar) [...] this encounter Progress Notes * Makenzie Pool, [facility] - 11/20/2023 12:48 PM EST Images from the original note [...] 1:20 if over 140 Levemir Vial - 18 units daily in AM Metformin 1000 mg - 1 tablet TWICE a day with food eGFR 76 as of 04/28/23 Medication Injection Site: N/A Lifestyle: Diet: unchanged Glucose Review/SMBG: Readings obtained from patient device Hypoglycemia: Does your blood sugar go below 70 mg/dL? No Hyperglycemia symptoms present: none Recent Labs Units 12/06/22 1202 08/30/22 0940 03/08/22 1013 HEMOGLOBIN A1C - [facility] % 8.0* 7.4* 6.1* Recent Labs Units 06/07/23 0813 05/31/23 1045 05/08/23 0829 ESTIMATED GLOMERULAR FILTRATION RATE - [facility] mL/min 83 80 72 CREATININE - [facility] mg/dL 0.8 0.8 0.9 HYPERTENSION: Patient on ACEi/ARB: no, not indicated BP Readings from Last 3 Encounters: 11/08/23 106/58 11/03/23 130/66 09/27/23 124/74 Blood pressure at goal: yes HYPERLIPIDEMIA: Patient is taking moderate or high intensity statin: yes HEALTH MAINTENANCE REVIEW: Health Maintenance Due Topic Date Due Hepatitis B (1 of 3 - Risk 3-dose series) Never done HbA1c 06/05/2023 Influenza Vaccine (FLU shot) (1) 07/14/2023 COVID-19 Vaccine ( season) 2023 *BISPHONATE OR OTHER ACCEPTABLE MEDICATION NEEDED FOR OSTEOPOROSIS (REFER TO SMARTSET #1146) Never done TSH 12/06/2023 Depression Screening 12/12/2023 ASSESSMENT & PLAN: ICD-10-CM 1. Type 2 diabetes mellitus with hemoglobin A1c goal of less than 8.0% (HCC) E11.9 Considerations: Cost: Approved for PACE 07/2023 Medication: H/o MARTHA to Lantus, unspecified; Eye pain with Xultophy A1c may not be accurate given frequent transfusions Libre2 through [employer] [phone] Daughter, Shante WILIAMAlex nurse BG Readings - Blood sugars elevated. Reviewed Jojo download and discussed with patient. Attributesto diet. Overdue for A1c, ordered and patient plans to obtain today. Medications - Reviewed current regimen, patient is [...] proceed with transition. Diet, Exercise, Lifestyle - Diet has worsened. Patient attributes to eating in boredom. States brings home poor DM options from the store. Lengthy discussion regarding preparing vegetables/low CHO snack options for when feeling this way. Patient notes to getting table to do puzzles on during the day. Has not done so yet, encouraged to try. Will plan to slightly increase Levemir at this time. Encouraged to work on diet/lifestyle modifications before adjusting Novolin. Patient is agreeable. Patient is agreeable to SMBG daily with Cgm (Adapt Jojo) Patient aware to contact clinic if any hypoglycemia before next visit. MEDICATION CHANGES: Yes, see below Diabetic Medications: Novolin R ([employer]) Vial - 8 units with breakfast, 4 units with lunch , 6 units with supper + CF 1:20 if over 140 INCREASE Levemir Vial - 20 units daily in AM Metformin 1000 mg - 1 tablet TWICE a day with food eGFR 76 as of 04/28/23 HEALTH MAINTENANCE INTERVENTIONS: Deferred d/t time constraints, A1c ordered FOLLOW UP: Return to clinic in 6 weeks 01/02/2024 Makenzie Pool [facility] Clinical Pharmacist - [facility]ist Medication Therapy Management [facility] 11/20/2023, 12:48 PM documented in this encounter Plan of Treatment Upcoming Encounters Date Type Department Care Team (Late st Contact Info) Description 12/14/2023 2:00 PM EST Nurse Only Ancillary [address] [place] [address] [place]ina, Nurse [address] [place] [address] 12/15/2023 2:00 PM EST Immunization/Injec tion [facility]ematology[facility]Oncology Treatment, [place] [facility] [address] Nurse, Med [address] [facility] [place] [address] 12/26/2023 11:15 AM EST Office Visit [facility]ology[facility] [address] [facility] [place] [address] Jitendra Aguero MD [address] [facility] [place] [address] 12/29/2023 12:30 PM EST Home Visit [facility], [facility] [address] [place] [address] Marisa Pacheco, TANYA [address] [place] [address] 01/02/2024 1:40 PM EST Office Visit Pharmacy, [address] [place] [address] [place] [address] 01/02/2024 2:20 PM EST Office Visit Family Medicine [address] [place] [phone] Dhruv Moss MD [address] [place] [address] [place] [address] 07/03/2024 1:30 PM EDT Imaging Radiology [address] [place] [address] Scheduled Procedures Name Priority Associated Diagnoses Date/Ti [...] D LEVEL ONCE IN A LIFETIME-USE SMARTSET# 53885 Completed 05/11/2015 Zoster Vaccines Completed 10/30/2020, 02/2020, 07/13/2020, Additional history exists Pneumococcal Vaccine: 65+ Years Completed 06/10/2022, 01/06/2017, 10/09/2015, Additional history exists GARDASIL-HPV IMMUNIZATION SERIES Aged Out No longer eligible based on patient's age to complete this topic MENINGOCOCCAL (MENACTRA/MENVEO) Aged Out No longer eligible based on patient's age to complete this topic documented as of this encounter Medical Devices Implanted Type Area Player Manager Device Identifier Shelf Expiration Date Model / Serial / Lot Port Pwr Mri Isp Profile - [id number] Implanted:Qty: 1 on 07/24/2020 by Akash Castillo MD at OR [facility] Right: Chest CR BARD : PERIPHERAL VASCULAR 04/12/2021 [id number] / / [id number] documented as of this encounter Visit Diagnoses Diagnosis Type 2 diabetes mellitus with hemoglobin A1c goal of less than 8.0% ([facility])- Primary documented in this encounter Advance Directives [...] the patient have Health Care Power of Bank Worker? No Code Status History Code Status Date Activated Date Inactivated Comments Full Code 07/27/2021 7:04 PM 07/31/2021 5:19 PM This order reflects the patients wishes and were consensually agreed upon. Question Answer Comments Discussion of Advance Directives occurred with: Patient Does the patient have a Living Will? No Does the patient have Health Care Power of Bank Worker? No Full Code 07/25/2021 12:43 PM 07/25/2021 11:03 PM Thi s order reflects the patients wishes and were consensually agreed upon. Question Answer Comments Discussion of Advance Directives occurred with: Patient/Family Does the patient have a Living Will? No Does the patient have Health Care Power of Bank Worker? No Full Code 06/12/2017 2:29 PM 06/12/2017 10:37 PM This order reflects the patients wishes and were consensually agreed upon. Question Answer Comments Discussion of Advance Directives occurred with: Not Discussed Does the patient have a Living Will? No Does the patient have Health Care Power of Bank Worker? No Healthcare Agents on File Name Relationship Healthcare Agent Relationshi p Communication Juanita Bur Adult Child Health Care Agent Care Teams Travel Journalist Relationship Specialty Start Date End Date Dhruv Moss MD [address] [place] [address] [place] [address] PCP - General Family Medicine 08/27/21 documented as of this encounter
--- OUTSIDE RECORDS SUMMARY | 2024-02-26 04:37 | External Medical Summary | Summary of Care ---
Author Name Unknown Organization [facility] Address [address] [place] [address] Phone [phone] Care Team Providers Care Steam Brush Operator Name Role Phone Dhruv Moss MD Primary Care Provide r Reason for Visit * Reason Comments Outpatient Testing Encounter Details Date Type Department Care Team (Late st Contact Info) Description 11/08/2023 12:10 PM EST Laboratory Laboratory [address] [place] [phone] [place], Lab [address] [place] [address] MDS (myelodysplastic syndrome), high grade (HCC) Allergies [...] for Nausea. 60 Tablet 3 12/09/2021 Active [employer] Delica Lancets 30GIndications:Type 2 diabetes mellitus with hemoglobin A1c goal of less than 8.0% ([facility]) Use to test blood sugar three times a day DXe11.9 300 Each 3 12/16/2021 Active [employer] Verio In Vitro Strip (Glucose Blood)Indications:Ty pe 2 diabetes mellitus with hemoglobin A1c goal of less than 8.0% ([facility]) Use to test blood sugar three times a day DXe11.9 300 Strip 3 12/16/2021 Active [employer] Verio Flex System w/Device Kit Use as directed . 0 12/16/2021 Active Magnesium 100 MG Oral TabletIndications:bowers pplement Take 1 Tablet by mouth in the morning. Pt states every 3 days. 0 Active Acetaminophen 500 MG Oral Tablet Take 1 Tablet by mouth every 6 hours as needed. 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 Does not have any evidence of pbmyp-typcqp-pnzq disease Last Assessment & Plan: Continues to [...] -continue venlafaxine Coronary artery disease invo lving quechan coronary artery of quechan heart without angina pectoris 06/12/2017 Overview: S/P EDIL to LAD on 06/12/17 Last Assessment & Plan: No angina - Continue atorvastatin, isosorbide, metoprolol - no ASA due to thrombocytopenia Dyslipidemia, goal LDL below 70 11/25/2011 Last Assessment & Plan: Patient having no issues. She continues on Lipitor 40 mg daily Last lab I will was that I can find were from [id number] Assessment/plan: Dyslipidemia with patient currently taking Lipitor [...] mRNA, LNP-s, No Pre serve, 2-Dose Series ([employer]) 02/05/2021,01/08/2021 COVID-19, LNP-s, No Preserve , Ye-sucrose, [...] Description 11/08/2023 2:00 PM EST Home Visit [facility] [address] [facility] [place] [address] Marisa Pacheco, TANYA [address] [place] [address] 11/20/2023 1:00 PM EST Office Visit Pharmacy, [address] [place] [address] [place] [address] 12/14/2023 2:00 PM EST Nurse Only Ancillary [address] [place] [address] [place], Nurse [address] [place] [address] 12/15/2023 2:00 PM EST Immunization/Injec tion Hematology/Oncology Treatment, [place] [address] [place] [address] Nurse, Med [address] [place] [address] 12/26/2023 11:15 AM EST Office Visit Hematology/Oncology [facility] Alejandra [place] [address] [facility] [address] Jitendra Aguero MD [address] [place] [address] 12/29/2023 12:30 PM EST [facility] Visit [facility], [facility] [address] [place] [address] Marisa Pacheco, TANYA [address] [place] [address] 01/02/2024 2:20 PM EST Office Visit Family Medicine [address] [place] [phone] Dhruv Moss MD [address] [place] [address] [place] [address] 07/03/2024 1:30 PM EDT Imaging Radiology [address] [place] [address] Pending Results Name Type Priority Associated Diagnoses Date /Time CBC WITH WBC DIFFERENTIAL Lab STAT MDS (myelodysplastic syndrome), high grade (HCC) 11/08/2023 12:01 PM EST CBC Lab STAT MDS (myelodysplastic syndrome), high grade (HCC) 11/08/2023 12:01 PM EST DIFFERENTIAL, AUTOMATED Lab STAT MDS (myelodysplastic syndrome), high grade (HCC) 11/08/2023 12:01 PM EST Scheduled Procedures Name Priority Associated [...] 06/01/2021, Additional history exists GFR 06/07/2024 06/07/2023, 0707/2023, 05/08/2023, Additional history exists Albumin/Creatinine Ratio 09/15/2024 023, 03/08/2022, 10/29/2019, Additional history exists DXA Scan 06/13/2025 06/13/2023, 03/16/2015 DTaP,Tdap,and Td Vaccines (3 - Td or Tdap) 11/10/2026 11/10/2016, 03/30/2011 VITAMIN D LEVEL ONCE IN A LIFETIME-USE SMARTSET# 81500 Completed 05/11/2015 Zoster Vaccines Completed 10/30/2020, 02/2020, 07/13/2020, Additional history exists Pneumococcal Vaccine: 65+ Years Completed 06/10/2022, 01/06/2017, 10/09/2015, Additional history exists GARDASIL-HPV IMMUNIZATION SERIES Aged Out No longer eligible based on patient's age to complete this topic MENINGOCOCCAL (MENACTRA/MENVEO) Aged Out No longer eligible based on patient's age to complete this topic documented as of this encounter Medical Devices Implanted Type Area Communication Clerk Device Identifier Shelf Expiration Date Model / Serial / Lot Port Pwr Mri Isp Profile - [id number] Implanted:Qty: 1 on 07/24/2020 by Akash Castillo MD at OR [facility] Right: Chest CR BARD : PERIPHERAL VASCULAR 04/12/2021 [id number] / / [id number] documented as of this encounter Visit Diagnoses [...] the patient have Health Care Power of Gate Cutter? No Code Status History Code Status Date Activated Date Inactivated Comments Full Code 07/27/2021 7:04 PM 07/31/2021 5:19 PM This order reflects the patients wishes and were consensually agreed upon. Question Answer Comments Discussion of Advance Directives occurred with: Patient Does the patient have a Living Will? No Does the patient have Health Care Power of Gate Cutter? No Full Code 07/25/2021 12:43 PM 07/25/2021 11:03 PM Thi s order reflects the patients wishes and were consensually agreed upon. Question Answer Comments Discussion of Advance Directives occurred with: Patient/Family Does the patient have a Living Will? No Does the patient have Health Care Power of Gate Cutter? No Full Code 06/12/2017 2:29 PM 06/12/2017 10:37 PM This order reflects the patients wishes and were consensually agreed upon. Question Answer Comments Discussion of Advance Directives occurred with: Not Discussed Does the patient have a Living Will? No Does the patient have Health Care Power of Gate Cutter? No Healthcare Agents on File Name Relationship Healthcare Agent Relationshi p Communication Juanita Dalton Adult Child Health Care Agent Care Teams Steam Brush Operator Relationship Specialty Start Date End Date Dhruv Moss MD [address] [place] [address] [place] [address] PCP - General Family Medicine 08/27/21 documented as of this encounter
--- OUTSIDE RECORDS SUMMARY | 2024-02-26 04:37 | External Medical Summary ---
Author Name Unknown Address Unknown Organization K01:LABORATORY [facility] - [address] [place] [address] Laboratory Report Ordering Provider Test Date Status ANN MUNGUIA 11/08/2023 12:01:54 Final Observation Date Value Abnormality Reference (Units) Status Pathologist review of results 11/08/2023 12:01:54 Approximately 10% blasts small to medium in size with fine chromatin, nucleoli, and scant to moderate blue cytoplasm. No Lizandro rods present. Patient has a history of myelodysplastic syndrome status post transplant. Findings are concerning for recurrent/progression of disease. Hematology-Oncology notified via secure messaging 11/09/2023. Final Pathologist review of results 11/08/2023 12:01:54 Final Pathologist review of results 11/08/2023 12:01:54 Recommend Final Pathologist review of results 11/08/2023 12:01:54 1) Close monitoring of CBC with WBC differential. Final Pathologist review of results 11/08/2023 12:01:54 2) Bone marrow biopsy panel to assess disease status if clinically indicated. Final Performing Location LABORATORY C - [address] [place] [address]
--- OUTSIDE RECORDS SUMMARY | 2024-02-26 04:37 | External Medical Summary | Summary of Care ---
Author Name Unknown Organization [facility] Address [address] [place] [address] Phone [phone] Care Team Providers Care Intermediate Teacher Name Role Phone Dhruv Moss MD Primary Care Provide r Reason for Referral * Ancillary Services (Within 3 days (urgent)) - Authorized Specialty Diagnoses / Procedures Referred By Contac t Referred To Contact [place] Diagnoses MDS (myelodysplastic syndrome), high grade (HCC) Jitendra Aguero MD [address] [place] [address] Referral ID Status Reason Start Date Expiration Date Visits Requested Visits Authorized [id number] Authorized Ancillary Services Required 12/01/2023 999 999 Question Answer Referral Priority Within 3 days (urgent) Where should this appointment be scheduled? Ananya Comments Is Patient homebound? Yes All sections of this form must be filled out completely. Forms with missing or illegible information will be returned for completion. This form should not be modified in any way. Forms that have been modified will be returned. This form may not be submitted by a home health agency. It must be complete and submitted by the ordering provider. One full business day lead time is required and service will be scheduled based on the next service day for the [facility] Home Phlebotomy does not service every geographical location on a daily basis. Contact [facility] Client Services at to find out service days for a specific location. Medical Laboratory [address] [place] [id number] Rustam Cuevas M.D. Director and Health Service Coordinator Patient Name: Ruth Burger : 1950 Sex: female Address [address] [place] [address] [place] [address] Provider: None? Dhruv Moss MD? Diagnosis: Tests Requested CBCd once a week Reason for Visit * Reason Onset Date Comments Outpatient Testing 12/01/2023 Encounter Details Date Type Department Care Team (Late st Contact Info) Description 12/01/2023 Telephone Hematology/Oncology Treatment, [place] [address] [place] [address] Jitendra Aguero MD [address] [place] [address] Outpatient Testing Allergies No known active allergiesdocumented as of this encounter (statuses as of 12/01/2023) Medications Medication Sig Dispensed Refills Start Date [...] for Nausea. 60 Tablet 3 12/09/2021 Active TidbitDotCoTomii DelSoapBox Soaps Lancets 30GIndications:Type 2 diabetes mellitus with hemoglobin A1c goal of less than 8.0% ([facility]) Use to test blood sugar three times a day DXe11.9 300 Each 3 12/16/2021 Active TidbitDotCoTouch Verio In Vitro Strip (Glucose Blood)Indications:Ty pe 2 diabetes mellitus with hemoglobin A1c goal of less than 8.0% ([facility]) Use to test blood sugar three times a day DXe11.9 300 Strip 3 12/16/2021 Active Epy.io Verio Flex System w/Device Kit Use as directed . 0 12/16/2021 Active Magnesium 100 MG Oral TabletIndications:bowers pplement Take 1 Tablet by mouth in the morning. Pt states every 3 days. 0 Active Acetaminophen 500 MG Oral Tablet Take 1 Tablet by mouth every 6 hours as needed. 0 Active Nystatin 801740 UNIT/GM External Cream Apply topically to affected [...] 24 Hour (Imdur)Indications:C oronary artery disease involving oneida coronary artery of oneida heart without angina pectoris,HTN, goal below 140/90 [...] ([facility]) Inject 8 units with breakfast, 4 units with lunch, and 6 units with dinner + sliding scale of 1 units per every 20 over 140 MAX DAILY DOSE 50 units 50 mL 5 07/25/2023 Active Levemir 100 UNIT/ML Subcutaneous Solution (insulin Detemir)Indications: Type 2 diabetes mellitus with hemoglobin A1c goal of less than 8.0% ([facility]) Inject 18 Units under the skin [...] both eyes and macular edema, unspecified whether skilled nursing insulin use (HCC) 1.25 mg IZ PRN 05/12/2023 05/11/2024 Active ROPivacaine (Naropin) inj 1.5 mgIndications: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 Date of Transplant: 09/01/2021 Conditioning Regimen: Fludarabine / Busulfan 2 with post-transplant Cytoxan ABO/Rh: A Positive CMV status: CMV Positive--- GRID: [id number] / DID: [id number] Matched Unrelated 10/24--- DPB1 Match ABO/Rh: A [...] Thrombocytopenia 12/06/2022 Last Assessment & Plan: Platelets 53581 on 03/20 Questionable hematuria Urinary incontinence 09/12/2022 [...] failure. 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 She continues on Lipitor 40 mg daily Last lab I will was that I can find were from [phone] Assessment/plan: Dyslipidemia with patient currently taking Lipitor [...] as of this encounter (statuses as of 12/01/2023) Resolved Problems Problem Noted Date Diagnosed Date [...] as of this encounter (statuses as of 12/01/2023) Immunizations Name Administration Dates Next Due COVID-19 mRNA, LNP-s, No Pre serve, 2-Dose Series (Apple Seeds) 02/05/2021,01/08/2021 COVID-19, LNP-s, No Preserve , Ye-sucrose, [...] Telephone Encounter - Winsome Chang RN - 12/01/2023 3:25 PM EST Patient has been getting weekly CBCd with home phlebotomy- no future appts scheduled. Replaced referral. Home phleb: please put patient back on schedule for weekly CBCd. Thanks! documented in this encounter Plan of Treatment Upcoming Encounters Date Type Department Care Team (Late st Contact Info) Description 12/14/2023 2:00 PM EST Nurse Only Ancillary [address] [place] [address] Cristina, Nurse [address] [place] [address] 12/15/2023 2:00 PM EST Immunization/Injec tion Hematology[facility]cology [facility], [place] [facility] [address] Nurse, Med 200 [facility] [place] [address] 12/26/2023 11:15 AM EST Office Visit Hematology/Oncology [facility] [address] [facility] [place] [address] Jitendra Aguero MD [address] [facility] [place] [address] 12/29/2023 12:30 PM EST Home Visit [facility] [place] [address] [place] [address] Marisa Pacheco, TANYA [address] [place] [address] 01/02/2024 1:40 PM EST Office Visit Pharmacy, [address] [place] [address] [place] [address] 01/02/2024 2:20 PM EST Office Visit Family Medicine [address] [place] [phone] Dhruv Moss MD [address] [place] [address] [place] [address] 07/03/2024 1:30 PM EDT Imaging Radiology [address] [place] [address] Scheduled Procedures Name Priority Associated Diagnoses Date/Ti me COLONOSCOPY FLEXIBLE PROXIMA L DIAGNOSTIC Recall Encounter for screening colonoscopy Scheduled Referrals Name Type Priority Associated Diagnoses Orde r Schedule HOME PHLEBOTOMY REFERRAL OP Referral Within 3 days (urgent) MDS (myelodysplastic syndrome), high grade (HCC) Ordered: 12/01/2023 Health Maintenance Due Date Last Done Comments [...] D LEVEL ONCE IN A LIFETIME-USE SMARTSET# 66200 Completed 05/11/2015 Zoster Vaccines Completed 10/30/2020, 02/2020, 07/13/2020, Additional history exists Pneumococcal Vaccine: 65+ Years Completed 06/10/2022, 01/06/2017, 10/09/2015, Additional history exists GARDASIL-HPV IMMUNIZATION SERIES Aged Out No longer eligible based on patient's age to complete this topic MENINGOCOCCAL (MENACTRA/MENVEO) Aged Out No longer eligible based on patient's age to complete this topic documented as of this encounter Medical Devices Implanted Type Area Japanese Interpreter Device Identifier Shelf Expiration Date Model / Serial / Lot Port Pwr Mri Isp Profile - [id number] Implanted:Qty: 1 on 07/24/2020 by Akash Castillo MD at [facility] Right: Chest CR BARD : PERIPHERAL VASCULAR 04/12/2021 [id number] / / [id number] documented as of this encounter Visit Diagnoses [...] the patient have Health Care Power of Printing Press Machine Operator? No Code Status History Code Status Date Activated Date Inactivated Comments Full Code 07/27/2021 7:04 PM 07/31/2021 5:19 PM This order reflects the patients wishes and were consensually agreed upon. Question Answer Comments Discussion of Advance Directives occurred with: Patient Does the patient have a Living Will? No Does the patient have Health Care Power of Printing Press Machine Operator? No Full Code 07/25/2021 12:43 PM 07/25/2021 11:03 PM Thi s order reflects the patients wishes and were consensually agreed upon. Question Answer Comments Discussion of Advance Directives occurred with: Patient/Family Does the patient have a Living Will? No Does the patient have Health Care Power of Printing Press Machine Operator? No Full Code 06/12/2017 2:29 PM 06/12/2017 10:37 PM This order reflects the patients wishes and were consensually agreed upon. Question Answer Comments Discussion of Advance Directives occurred with: Not Discussed Does the patient have a Living Will? No Does the patient have Health Care Power of Printing Press Machine Operator? No Healthcare Agents on File Name Relationship Healthcare Agent [facility] Communication Juanita Silva Adult Child Health Care Agent Care Teams Intermediate Teacher Relationship Specialty Start Date End Date Dhruv Moss MD [address] [place] [address] [place] [address] PCP - General Family Medicine 08/27/21 documented as of this encounter
--- OUTSIDE RECORDS SUMMARY | 2024-02-26 04:37 | External Medical Summary | Summary of Care ---
Author Name Unknown Organization [facility] Address [address] [facility] [place] [address] Phone [phone] Care Team Providers Care Front Facer Name Role Phone Dhruv Moss MD Primary Care Provide r Encounter Details Date Type Department Care Team (Late st Contact Info) Description 11/23/2023 Population Health External Data Unspecified Department Allergies No known active allergiesdocumented as of this encounter (statuses as of 11/27/2023) Medications Medication Sig Dispensed Refills Start Date [...] for Nausea. 60 Tablet 3 12/09/2021 Active Wisembly Delica Lancets 30GIndications:Type 2 diabetes mellitus with hemoglobin A1c goal of less than 8.0% ([facility]) Use to test blood sugar three times a day DXe11.9 300 Each 3 12/16/2021 Active Wisembly VerHatchbuck In Vitro Strip (Glucose Blood)Indications:Ty pe 2 diabetes mellitus with hemoglobin A1c goal of less than 8.0% ([facility]) Use to test blood sugar three times a day DXe11.9 300 Strip 3 12/16/2021 Active Wisembly Verio Flex System w/Device Kit Use as directed . 0 12/16/2021 Active Magnesium 100 MG Oral TabletIndications:bowers pplement Take 1 Tablet by mouth in the morning. Pt states every 3 days. 0 Active Acetaminophen 500 MG Oral Tablet Take 1 Tablet by mouth every 6 hours as needed. 0 Active Nystatin 662428 UNIT/GM External Cream Apply topically to affected [...] 24 Hour (Imdur)Indications:C oronary artery disease involving [place] valley coronary artery of [place] valley heart without angina pectoris,HTN, goal below 140/90 [...] hemoglobin A1c goal of less than 8.0% ([facility]) Inject 18 Units under the skin [...] syndrome), high grade (HCC),Stem cells transplant status (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 Date of Transplant: 09/01/2021 Conditioning Regimen: Fludarabine / Busulfan 2 with post-transplant Cytoxan ABO/Rh: A Positive CMV status: CMV Positive--- GRID: [id number] / DID: [id number] Matched Unrelated 10/24--- DPB1 Match ABO/Rh: A [...] Thrombocytopenia 12/06/2022 Last Assessment & Plan: Platelets 63823 on 03/20 Questionable hematuria Urinary incontinence 09/12/2022 [...] failure. Does not have any evidence of lhjym-kcomsc-dbcv disease Last Assessment & Plan: Continues to [...] -continue venlafaxine Coronary artery disease invo lving skull valley coronary artery of skull valley heart without angina pectoris 06/12/2017 Overview: S/P EDIL to LAD on 06/12/17 Last Assessment & Plan: No angina - Continue atorvastatin, isosorbide, metoprolol - no ASA due to thrombocytopenia Dyslipidemia, goal LDL below 70 11/25/2011 Last Assessment & Plan: Patient having no issues. She continues on Lipitor 40 mg daily Last lab I will was that I can find were from [phone] Assessment/plan: Dyslipidemia with patient currently taking Lipitor [...] as of this encounter (statuses as of 11/27/2023) Resolved Problems Problem Noted Date Diagnosed Date [...] as of this encounter (statuses as of 11/27/2023) Immunizations Name Administration Dates Next Due COVID-19 [...] 12/14/2023 2:00 PM EST Nurse Only Ancillary [address] [place] [address] [place], Nurse [address] [place] [address] 12/15/2023 2:00 PM EST Immunization/Injec tion Hematology/Oncology Treatment, [place] [facility] [address] Nurse, Med 200 [place] [address] 12/26/2023 11:15 AM EST Office Visit Hematology/Oncology [facility] 200 [facility] [place] [address] Jitendra Aguero MD [address] [place] [place] [address] 12/29/2023 12:30 PM EST [facility] [address] [place] [address] Marisa Pacheco, RN [address] [place] [address] 01/02/2024 1:40 PM EST Office Visit Pharmacy, [address] [place] [address] [place] [address] 01/02/2024 2:20 PM EST Office Visit Family Medicine [address] [place] [phone] Dhruv Moss MD [address] [place] [address] [place] [address] 07/03/2024 1:30 PM EDT Imaging Radiology [address] [place] [address] Scheduled Procedures Name Priority Associated Diagnoses Date/Ti [...] D LEVEL ONCE IN A LIFETIME-USE SMARTSET# [id number] Completed 05/11/2015 Zoster Vaccines Completed 10/30/2020, 02/2020, 07/13/2020, Additional history exists Pneumococcal Vaccine: 65+ Years Completed 06/10/2022, 01/06/2017, 10/09/2015, Additional history exists GARDASIL-HPV IMMUNIZATION SERIES Aged Out No longer eligible based on patient's age to complete this topic MENINGOCOCCAL (MENACTRA/MENVEO) Aged Out No longer eligible based on patient's age to complete this topic documented as of this encounter Medical Devices Implanted Type Area Orthopedic Shoes Salesperson Device Identifier Shelf Expiration Date Model / Serial / Lot Port Pwr Mri Isp Profile - [id number] Implanted:Qty: 1 on 07/24/2020 by Akash Castillo MD at [facility] Right: Chest CR BARD : PERIPHERAL VASCULAR 04/12/2021 [id number] / / [id number] documented as of this encounter Advance Directives [...] the patient have Health Care Power of Integrated Circuit Ic Layout Designer? No Code Status History Code Status Date Activated Date Inactivated Comments Full Code 07/27/2021 7:04 PM 07/31/2021 5:19 PM This order reflects the patients wishes and were consensually agreed upon. Question Answer Comments Discussion of Advance Directives occurred with: Patient Does the patient have a Living Will? No Does the patient have Health Care Power of Integrated Circuit Ic Layout Designer? No Full Code 07/25/2021 12:43 PM 07/25/2021 11:03 PM Thi s order reflects the patients wishes and were consensually agreed upon. Question Answer Comments Discussion of Advance Directives occurred with: Patient/Family Does the patient have a Living Will? No Does the patient have Health Care Power of Integrated Circuit Ic Layout Designer? No Full Code 06/12/2017 2:29 PM 06/12/2017 10:37 PM This order reflects the patients wishes and were consensually agreed upon. Question Answer Comments Discussion of Advance Directives occurred with: Not Discussed Does the patient have a Living Will? No Does the patient have Health Care Power of Integrated Circuit Ic Layout Designer? No Healthcare Agents on File Name Relationship Healthcare Agent [facility] p Communication Juanita Ricardo Adult Child Health Care Agent Care Teams Front Facer Relationship Specialty Start Date End Date Dhruv Moss MD [address] [place] [address] [place] [address] PCP - General Family Medicine 08/27/21 documented as of this encounter
--- OUTSIDE RECORDS SUMMARY | 2024-02-26 04:37 | External Medical Summary ---
Author Name Unknown Address Unknown Organization K01:[facility] [address] [facility] [place] [address] Laboratory Report Ordering Provider Test Date Status ANN MUNGUIA 11/20/2023 13:22:21 Final Observation Date Value Abnormality Reference (Units ) Status SYNC LEUKOCYTES IN BLOOD BY AUTOMATED COUNT 11/20/2023 13:22:21 5.04 4.00-10.80 (K/uL) Final Neutrophils/100 leukocytes in Blood by Manual count 11/20/2023 13:22:21 30.0 Below low normal 40.0-75.0 (%) Final Lymphocytes/100 leukocytes in Blood by Manual count 11/20/2023 13:22:21 53.0 Above high normal 18.0-42.0 (%) Final Monocytes/100 leukocytes in Blood by Manual count 11/20/2023 13:22:21 4.0 1.0-11.0 (%) Final Eosinophils/100 leukocytes in Blood by Manual count 11/20/2023 13:22:21 3.0 0.0-6.0 (%) Final Basophils/100 leukocytes in Blood by Manual count 11/20/2023 13:22:21 1.0 0.0-2.0 (%) Final Metamyelocytes/100 leukocytes in Blood by Manual count 11/20/2023 13:22:21 0.0 <=0.0 (%) Final Blasts/100 leukocytes in Blood by Manual count 11/20/2023 13:22:21 9.0 Above high normal <=0.0 (%) Final Neutrophils [#/volume] in Blood by Manual count 11/20/2023 13:22:21 1.51 Below low normal 1.80-7.70 (K/uL) Final Lymphocytes [#/volume] in Blood by Manual count 11/20/2023 13:22:21 2.67 1.00-4.80 (K/uL) Final Monocytes [#/volume] in Blood by Manual count 11/20/2023 13::21 0.20 0.00-1.10 (K/uL) Final Eosinophils [#/volume] in Blood by Manual count 11/20/2023:: 0.15 0.00-0.70 (K/uL) Final Basophils [#/volume] in Blood by Manual count 11/20/2023 13:: 0.05 0.00-0.20 (K/uL) Final Metamyelocytes [#/volume] in Blood by Manual count 11/20/2023 13:22:21 0.00 <=0.00 (K/uL) Final Blasts [#/volume] in Blood by Manual count 11/20/2023:: 0.45 Above high normal <=0.00 (K/uL) Final Performing Location LABORATORY [facility] - [address] [facility] [address]
--- OUTSIDE RECORDS SUMMARY | 2024-02-26 04:38 | External Medical Summary | Summary of Care ---
Author Name Unknown Organization [facility] Address [address] [place] [address] Phone [phone] Care Team Providers Care Medical Support Assistant Name Role Phone Dhruv Moss MD Primary Care Provide r Encounter Details Date Type Department Care Team (Late st Contact Info) Description 11/03/2023 Telephone Hematology/Oncology [facility] [place] [address] [place] [address] Sharon Mejia CRNP [address] [place] [address] Allergies No known active allergiesdocumented as of this encounter (statuses as of 11/03/2023) Medications Medication Sig Dispensed Refills Start Date End Date Status Cholecalciferol (VITAMIN D3) 5000 UNITS TabletIndications:bowers pplement Take 1 Tablet by mouth in the morning. 0 05/14/2015 Active BD Pen Needle Mini U/F 31G X 5 MM (Insulin Pen Needle)Indications:T ype 2 diabetes mellitus with hemoglobin A1c goal of less than 8.0% ([facility]) Use with xultophy once a day [...] for Nausea. 60 Tablet 3 12/09/2021 Active MarkitTouch Delica Lancets 30GIndications:Type 2 diabetes mellitus with hemoglobin A1c goal of less than 8.0% ([facility]) Use to test blood sugar three times a day DXe11.9 300 Each 3 12/16/2021 Active MarkitTouch Verio In Vitro Strip (Glucose Blood)Indications:Ty pe 2 diabetes mellitus with hemoglobin A1c goal of less than 8.0% ([facility]) Use to test blood sugar three times a day DXe11.9 300 Strip 3 12/16/2021 Active MarkitTouch Verio Flex System w/Device Kit Use as directed . 0 12/16/2021 Active Magnesium 100 MG Oral TabletIndications:bowers pplement Take 1 Tablet by mouth in the morning. Pt states every 3 days. 0 Active Acetaminophen 500 MG Oral Tablet Take 1 Tablet by mouth every 6 hours as needed. 0 Active Nystatin 387218 UNIT/GM External Cream Apply topically to affected [...] 24 Hour (Imdur)Indications:C oronary artery disease involving huslia coronary artery of huslia heart without angina pectoris,HTN, goal below 140/90 [...] both eyes and macular edema, unspecified whether correction insulin use (HCC) 1.5 mg PERINEURAL PRN 05/12/2023 05/11/2024 Active documented as of this encounter (statuses as of 11/03/2023) Active Problems Patient Care Coordination No te Formatting of this note migh t be different from the original. Date of Transplant: 09/01/2021 Conditioning Regimen: Fludarabine / Busulfan 2 with post-transplant Cytoxan ABO/Rh: A Positive CMV status: CMV Positive--- GRID: [id number] / DID: [id number] Matched Unrelated 10/24--- DPB1 Match ABO/Rh: A Positive CMV status: Negative Problem Noted Date Diagnosed Date S/P right hip fracture 06/12/2023 Neutropenia 06/05/2023 [...] Thrombocytopenia 12/06/2022 Last Assessment & Plan: Platelets 70575 on 03/20 Questionable hematuria Urinary incontinence 09/12/2022 [...] 02/26/2021 MDS (myelodysplastic syndrome), high grade 07/27 Last Assessment & Plan: Currently in relapse. Hemoglobin yesterday 8.8. Platelets 38731. - weekly CBC. Transfusion to maintain above hemoglobin of 8 Microalbuminuria due to type 2 diabetes mellitus 10/30/2019 Insulin-requiring or dependent type II diabetes mellitus 07/23/2018 Recurrent major depressive disorder, in partial remission 07/23/2018 Last Assessment & Plan: Stable -continue venlafaxine Coronary artery disease invo lving huslia coronary artery of huslia heart without angina pectoris 06/12/2017 Overview: S/P EDIL to LAD on 06/12/17 Last Assessment & Plan: No angina - Continue atorvastatin, isosorbide, metoprolol - no ASA due to thrombocytopenia Dyslipidemia, goal LDL below 70 11/25/2011 Last Assessment & Plan: Patient having no issues. She continues on Lipitor 40 mg daily Last lab I will was that I can find were from [id number] Assessment/plan: Dyslipidemia with patient currently taking Lipitor 40 mg daily without any issues. Recommend that patient levels drawn at next lab draw Type 2 diabetes mellitus wit h hemoglobin A1c goal of less than 8.0% 12/29/2009 Overview: ICD-10 update of inactive term Last Assessment & Plan: Current Status: "Stable" for patient / At or near baseline Degree of Condition Awareness: Demonstrates very good awareness of condition, disease course, and prognosis "RED FLAG" Diabetic symptoms: o none Goal HgbA1c o <7 Diabetic Complications o Vascular (examples: PVD, PAD, CAD, CVA) o Neurologic (example: Peripheral Neuropathy) Medication Regimen o Metformin o Basal/Long Acting Insulin o Bolus/Short Acting Insulin DM Secondary Prevention o Moderate-High Intensity Statin o insulin recently decreased due to hypoglycemia. Improved. Acquired hypothyroidism 12/01/2009 Last Assessment & Plan: Continue Synthroid Generalized osteoarthritis of multiple sites HTN, goal below 140/90 Last Assessment & Plan: BP stable. - continue medication regimen as noted above. documented as of this encounter (statuses as of 11/03/2023) Resolved Problems Problem Noted Date Diagnosed Date [...] draw Pancytopenia 07/27/2021 06/03/2022 Febrile neutropenia 07/27/2021 07/22/20 22 COVID-19 virus infection 07/25/2021 Myelodysplastic syndrome [...] as of this encounter (statuses as of 11/03/2023) Immunizations Name Administration Dates Next Due COVID-19 [...] Telephone Encounter - Bogdan Gutiérrez RN - 11/03/2023 9:20 AM EST Called and informed patient. * Telephone Encounter - Bogdan Gutiérrez RN - 11/03/2023 9:17 AM EST ----- Message from MARTA Rooney sent at 11/02/2023 5:02 PM EST ----- Hgb 9.7, platelet count 13K. No need for blood or platelet transfusion. Repeat CBCd in one week. documented in this encounter Plan of Treatment Upcoming Encounters Date Type Department Care Team (Late st Contact Info) Description 11/08/2023 2:00 PM EST Home Visit [facility] [address] [facility] [place] [address] Marisa Pacheco RN [address] [place] [address] 11/20/2023 1:00 PM EST Office Visit Pharmacy, [address] [place] [address] [place] [address] 12/14/2023 2:00 PM EST Nurse Only Ancillary [address] [place] [address] [place], Nurse Annual [address] [place] [address] 12/15/2023 2:00 PM EST Immunization/Injec tion Hematology/Oncology Treatment, [place] [address] [place] [address] Nurse, Med [address] [facility] [place] [address] 12/26/2023 11:15 AM EST Office Visit Hematology/Oncology [facility] [address] [facility] [place] [address] Jitendra Aguero MD [address] [facility] [place] [address] 01/02/2024 2:20 PM EST Office Visit Family Medicine [address] [place] [phone] Dhruv Moss MD [address] [place] [address] [place] [address] 07/03/2024 1:30 PM EDT Imaging Radiology [address] [place] [address] Scheduled Procedures Name Priority Associated Diagnoses Date/Ti me COLONOSCOPY FLEXIBLE PROXIMA L DIAGNOSTIC Recall Encounter for screening colonoscopy Health Maintenance Due Date Last Done Comments Hepatitis B (1 of 3 - Risk 3-dose series) 2008 HbA1c 06/05/2023 12/06/2022, 08/13, 03/08/2022, Additional history exists COVID-19 Vaccine ( season) 2023 12/06/2021, 02/05/2021, 01/08/2021 Influenza Vaccine (FLU shot) (#1) 2023 07/17/2020, 07/13/2020, 07/25/2019, Additional history exists TSH 12/06/2023 12/06/2022, 08/15, 03/08/2022, Additional history exists Depression Screening 12/12/2023 12/12/2022 COLONOSCOPY-EVERY 5 YRS AGES 18-100 05/06/2024 05/06/2019, 05/06/2019 Diabetic Eye Exam 05/12/2024 05/12/2023, , 05/12/2023, Additional history exists Diabetic Foot Exam 06/05/2024 06/05/2023, 0 06/03/2022, 06/01/2021, Additional history exists GFR 06/07/2024 06/07/2023, 05/13, 05/08/2023, Additional history exists Albumin/Creatinine Ratio 09/15/2024 023, 03/08/2022, 10/29/2019, Additional history exists DTaP,Tdap,and Td Vaccines (3 - Td or Tdap) 11/10/2026 11/10/2016, 03/30/2011 DXA Scan 06/13/2030 06/13/2023, 03/16/2015 Zoster Vaccines Completed 10/30/2020, 02/2020, 07/13/2020, Additional history exists Pneumococcal Vaccine: 65+ Years Completed 06/10/2022, 01/06/2017, 10/09/2015, Additional history exists GARDASIL-HPV IMMUNIZATION SERIES Aged Out No longer eligible based on patient's age to complete this topic MENINGOCOCCAL (MENACTRA/MENVEO) Aged Out No longer eligible based on patient's age to complete this topic documented as of this encounter Medical Devices Implanted Type Area Marketing Analytics Analyst Device Identifier Shelf Expiration Date Model / Serial / Lot Port Pwr Mri Isp Profile - [id number] Implanted:Qty: 1 on 07/24/2020 by Akash Castillo MD at OR [facility] Right: Chest CR BARD : PERIPHERAL VASCULAR 04/12/2021 [id number] / / [id number] documented as of this encounter Advance Directives [...] the patient have Health Care Power of Campaign Specialist? No Code Status History Code Status Date Activated Date Inactivated Comments Full Code 07/27/2021 7:04 PM 07/31/2021 5:19 PM This order reflects the patients wishes and were consensually agreed upon. Question Answer Comments Discussion of Advance Directives occurred with: Patient Does the patient have a Living Will? No Does the patient have Health Care Power of Campaign Specialist? No Full Code 07/25/2021 12:43 PM 07/25/2021 11:03 PM Thi s order reflects the patients wishes and were consensually agreed upon. Question Answer Comments Discussion of Advance Directives occurred with: Patient/Family Does the patient have a Living Will? No Does the patient have Health Care Power of Campaign Specialist? No Full Code 06/12/2017 2:29 PM 06/12/2017 10:37 PM This order reflects the patients wishes and were consensually agreed upon. Question Answer Comments Discussion of Advance Directives occurred with: Not Discussed Does the patient have a Living Will? No Does the patient have Health Care Power of Campaign Specialist? No Healthcare Agents on File Name Relationship Healthcare Agent [facility] Communication Juanita Silva Adult Child Health Care Agent Care Teams Medical Support Assistant Relationship Specialty Start Date End Date Dhruv Moss MD [address] [place] [phone] PCP - General Family Medicine 08/27/21 documented as of this encounter
--- OUTSIDE RECORDS SUMMARY | 2024-02-26 04:38 | External Medical Summary | Summary of Care ---
Author Name Unknown Organization [facility] Address [address] [place] [address] Phone [phone] Care Team Providers Care Hydrogenation Still Operator Name Role Phone Dhruv Moss MD Primary Care Provide r Reason for Visit * Reason Onset Date Comments [facility]: Maintenance 11/03/2023 Encounter Details Date Type Department Care Team (Late st Contact Info) Description 11/03/2023 Telephone [facility], [address] [place] [address] Services, Scheduling [address] [place] [address] [facility]: Maintenance Allergies No known [...] hemoglobin A1c goal of less than 8.0% ([facility]) Use with xultophy once a [...] for Nausea. 60 Tablet 3 12/09/2021 Active Vertical CircuitsTouch Delica Lancets 30GIndications:Type 2 diabetes mellitus with hemoglobin A1c goal of less than 8.0% ([facility]) Use to test blood sugar three times a day DXe11.9 300 Each 3 12/16/2021 Active Vertical CircuitsTouch Verio In Vitro Strip (Glucose Blood)Indications:Ty pe 2 diabetes mellitus with hemoglobin A1c goal of less than 8.0% ([facility]) Use to test blood sugar three times a day DXe11.9 300 Strip 3 12/16/2021 Active Vertical CircuitsTouch Verio Flex System w/Device Kit Use as directed . 0 12/16/2021 Active Magnesium 100 MG Oral TabletIndications:bowers pplement Take 1 Tablet by mouth in the morning. Pt states every 3 days. 0 Active Acetaminophen 500 MG Oral Tablet Take 1 Tablet by mouth every 6 hours as needed. 0 Active Nystatin 830697 UNIT/GM External Cream Apply topically to affected [...] 24 Hour (Imdur)Indications:C oronary artery disease involving stebbins coronary artery of stebbins heart without angina pectoris,HTN, goal below 140/90 [...] both eyes and macular edema, unspecified whether predatory animal exterminator insulin use (HCC) 1.25 mg IZ PRN [...] 3553 0000 [id number] 732 / DID: [id number] Matched Unrelated 10/24--- DPB1 Match ABO/Rh: A [...] Thrombocytopenia 12/06/2022 Last Assessment & Plan: Platelets 16628 on 03/20 Questionable hematuria Urinary incontinence 09/12/2022 [...] Currently in relapse. Hemoglobin yesterday 8.8. Platelets 48729. - weekly CBC. Transfusion to maintain above hemoglobin of 8 Microalbuminuria due to type 2 diabetes mellitus 10/30/2019 Insulin-requiring or dependent type II diabetes mellitus 07/23/2018 Recurrent major depressive disorder, in partial remission 07/23/2018 Last Assessment & Plan: Stable -continue venlafaxine Coronary artery disease invo lving stebbins coronary artery of stebbins heart without angina pectoris 06/12/2017 Overview: S/P EDIL to LAD on 06/12/17 Last Assessment & Plan: No angina - Continue atorvastatin, isosorbide, metoprolol - no ASA due to thrombocytopenia Dyslipidemia, goal LDL below 70 11/25/2011 Last Assessment & Plan: Patient having no issues. She continues on Lipitor 40 mg daily Last lab I will was that I can find were from [phone] Assessment/plan: Dyslipidemia with patient currently taking Lipitor [...] Miscellaneous Notes * Telephone Encounter - Winsome Lopez, VEDA - 11/03/2023 8:30 AM EST Call to [facility] to arrange HH, they asked that I fax information to them for review. Order, snapshot, HV notes, notes from [facility] faxed today to [facility] at [phone]. documented in this encounter Plan of Treatment Upcoming Encounters Date Type Department Care Team (Late st Contact Info) Description 11/08/2023 2:00 PM EST [facility] [place] [address] [facility] [place] [address] Marisa Pacheco, TANYA [address] [place] [address] 11/20/2023 1:00 PM EST Office Visit Pharmacy, [address] [place] [address] [place] [address] 12/14/2023 2:00 PM EST Nurse Only Ancillary [address] [place] [address] [place], Nurse [address] [place] [address] 12/15/2023 2:00 PM EST Immunization/Injec tion Hematology/Oncology Treatment, [place] [address] [place] [address] Nurse, Med [address] [facility] [place] [address] 12/26/2023 11:15 AM EST Office Visit Hematology/Oncology [facility] [place] [address] [place] [address] Jitendra Aguero MD [address] [place] [address] 01/02/2024 2:20 PM EST Office Visit Family Medicine [address] [place] [phone] Dhruv Moss MD [address] [place] [address] [place] [address] 07/03/2024 1:30 PM EDT Imaging Radiology [address] [place] [address] Scheduled Procedures Name Priority Associated Diagnoses Date/Ti [...] 05/13, 05/08/2023, Additional history exists Albumin/Creatinine Ratio 09/15/20242 023, 03/08/2022, 10/29/2019, Additional history exists DTaP,Tdap,and [...] this encounter Medical Devices Implanted Type Area Fruit Bar Maker Device Identifier Shelf Expiration Date Model / Serial / Lot Port Pwr Mri Isp Profile - [id number] Implanted:Qty: 1 on 07/24/2020 by Akash Castillo MD at OR [facility] Right: Chest CR BARD : PERIPHERAL VASCULAR 04/12/2021 [id number] / / [id number] documented as of this encounter Advance Directives [...] the patient have Health Care Power of Brass Pourer? No Code Status History Code Status Date Activated Date Inactivated Comments Full Code 07/27/2021 7:04 PM 07/31/2021 5:19 PM This order reflects the patients wishes and were consensually agreed upon. Question Answer Comments Discussion of Advance Directives occurred with: Patient Does the patient have a Living Will? No Does the patient have Health Care Power of Brass Pourer? No Full Code 07/25/2021 12:43 PM 07/25/2021 11:03 PM Thi s order reflects the patients wishes and were consensually agreed upon. Question Answer Comments Discussion of Advance Directives occurred with: Patient/Family Does the patient have a Living Will? No Does the patient have Health Care Power of Brass Pourer? No Full Code 06/12/2017 2:29 PM 06/12/2017 10:37 PM This order reflects the patients wishes and were consensually agreed upon. Question Answer Comments Discussion of Advance Directives occurred with: Not Discussed Does the patient have a Living Will? No Does the patient have Health Care Power of Brass Pourer? No Healthcare Agents on File Name Relationship Healthcare Agent [facility] p Communication Juanita Silva Adult Child Health Care Agent Care Teams Hydrogenation Still Operator Relationship Specialty Start Date End Date Dhruv Moss MD [address] [place] [address] [place] [id number] PCP - General Family Medicine 08/27/21 documented as of this encounter
--- OUTSIDE RECORDS SUMMARY | 2024-02-26 04:38 | External Medical Summary ---
Author Name Unknown Address Unknown Organization [facility] [address] [place] [address] Laboratory Report Ordering Provider Test Date Status ANN MUNGUIA 10/25/2023 09:19:00 Final Observation Date Value Abnormality Reference (Units ) Status WBC, Total 10/25/2023 09:19:00 3.89 Below low normal 4.00-10.80 (K/uL) Final RBC 10/25/2023 09:19:00 2.43 3.85-5.15 (M/uL) Final Hemoglobin 10/25/2023 09:19:00 9.8 Below low normal 12.0-15.3 (g/dL) Final HCT 10/25/2023 09:19:00 29.0 Below low normal 36.0-45.2 (%) Final MCV 10/25/2023 09:19:00 119.3 81.5-97.5 (fL) Final MCH 10/25/2023 09:19:00 40.3 27.0-34.0 (pg) Final MCHC 10/25/2023 09:19:00 33.8 32.0-36.0 (g/dL) Final RDW 10/25/2023 09:19:00 13.1 11.5-15.5 (%) Final Platelets 10/25/2023 09:19:00 11 Below lower panic limits 140-400 (K/uL) Final MPV 10/25/2023 09:19:00 8.1 6.6-11.1 (fL) Final Performing Location [facility] [place] [address] [place] [address]
--- OUTSIDE RECORDS SUMMARY | 2024-02-26 04:38 | External Medical Summary | Summary of Care ---
Author Name Unknown Organization [facility] Address [address] [place] [address] Phone [phone] Care Team Providers Care Music Education Adjunct Professor Name Role Phone Dhruv Moss MD Primary Care Provide r Reason for Visit * Reason Comments Procedure Labs via port/port f lush Encounter Details Date Type Department Care Team (Late st Contact Info) Description 11/02/2023 2:00 PM EST Immunization/I njection Hematology/Oncology Treatment, [place] [address] [place], [place] [id number] Nurse, Med [address] [place] [address] MDS (myelodysplastic syndrome), high grade (HCC)*; Hypomagnesemia; [...] for Nausea. 60 Tablet 3 12/09/2021 Active ForkforceTouch Delica Lancets 30GIndications:Type 2 diabetes mellitus with [...] day DXe11.9 300 Strip 3 12/16/2021 Active ForkforceTouch Verio Flex System w/Device Kit Use as directed . 0 12/16/2021 Active Magnesium 100 MG Oral TabletIndications:bowers pplement Take 1 Tablet by mouth in the morning. Pt states every 3 days. 0 Active Acetaminophen 500 MG Oral Tablet Take 1 Tablet by mouth every 6 hours as needed. 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 Hemoglobin yesterday 8.8. Platelets 73548. - weekly CBC. Transfusion to maintain above hemoglobin of 8 Microalbuminuria due to type 2 diabetes mellitus 10/30/2019 Insulin-requiring or dependent type II diabetes mellitus 07/23/2018 Recurrent major depressive disorder, in partial remission 07/23/2018 Last Assessment & Plan: Stable -continue venlafaxine Coronary artery disease invo lving big [place] coronary artery of big sandy heart without angina pectoris 06/12/2017 Overview: S/P EDIL to LAD on 06/12/17 Last Assessment & Plan: No angina - Continue atorvastatin, isosorbide, metoprolol - no ASA due to thrombocytopenia Dyslipidemia, goal LDL below 70 11/25/2011 Last Assessment & Plan: Patient having no issues. She continues on Lipitor 40 mg daily Last lab I will was that I can find were from [phone] Assessment/plan: Dyslipidemia with patient currently taking Lipitor [...] as of this encounter Nursing Notes * Elizabeth Soto RN - 11/02/2023 2:32 PM EST Chair 5 VAD (Venous Access Device) accessed with #20G 3/4" without difficulty. Labs drawn per order and then VAD flushed with 10 ml NSS and Heparin 5 ml (100 units/ml). Kincaid needle removed intact. Patient tolerated treatment well and was discharged in stable condition. documented in this encounter Miscellaneous Notes * Result Encounter Note - Sharon Mejia CRNP - 11/02/2023 5:02 PM EST Hgb 9.7, platelet count 13K. No need for blood or platelet transfusion. Repeat CBCd in one week. documented in this encounter Plan of Treatment Upcoming Encounters Date Type Department Care Team (Late st Contact Info) Description 11/08/2023 2:00 PM EST Home Visit [facility] [address] [address] Marisa Pacheco RN 132 [facility] [place] [address] 11/20/2023 1:00 PM EST Office Visit Pharmacy, [address] [place] [address] [place] [address] 12/14/2023 2:00 PM EST Nurse Only Ancillary [address] [place] [address] [place], Nurse [address] [place] [address] 12/15/2023 2:00 PM EST Immunization/Injec tion Hematology/Oncology Treatment, [place] [address] [place] [address] Nurse, Med 4 200 [facility] [place] [address] 12/26/2023 11:15 AM EST Office Visit Hematology/Oncology [facility] [address] [facility] [place] [address] Jitendra Aguero MD 200 [facility] [place] [address] 01/02/2024 2:20 PM EST Office Visit Family Medicine [address] [place] [phone] Dhruv Moss MD [address] [place] [address] [place] [address] 07/03/2024 1:30 PM EDT Imaging Radiology [address] [place] [address] Scheduled Procedures Name Priority Associated Diagnoses Date/Ti [...] this encounter Medical Devices Implanted Type Area Mainframe Architect Device Identifier Shelf Expiration Date Model / Serial / Lot Port Pwr Mri Isp Profile - [id number] Implanted:Qty: 1 on 07/24/2020 by Akash Castillo MD at OR [facility] Right: Chest CR BARD : PERIPHERAL VASCULAR 04/12/2021 [id number] / / [id number] documented as of this encounter Procedures Procedure Name Priority Date/Time Associated Diagnosis Comments DIFFERENTIAL, AUTOMATED STAT 11/02/2023 2:15 PM EST MDS (myelodysplastic syndrome), high grade (HCC) CBC STAT 11/02/2023 2:15 PM EST MDS (myelodysplastic syndrome), high grade (HCC) CBC STAT 11/02/2023 2:15 PM EST MDS (myelodysplastic syndrome), high grade (HCC) DIFFERENTIAL, TECHNOLOGIST REVIEW Routine 11/02/2023 2:15 PM EST MDS (myelodysplastic syndrome), high grade (HCC) documented in this encounter Results * (ABNORMAL) DIFFERENTIAL, TECHNOLOGIST REVIEW (11/02/2023 2:15 PM EST) WBC 3.95(L) 4.00 - 10.80 K/uL 11/02/2023 2:36 PM EST [facility] 56-02 Neutrophils % 18.0(L) 40.0 - 75.0 % 11/02/2023 2:36 PM EST [facility] 56-02 Lymphocytes % 70.0(H) 18.0 - 42.0 % 11/02/2023 2:36 PM EST [facility] 56- Monocytes % 8.0 1.0 - 11.0 % 11/02/2023 2:36 PM EST [facility] 56- Eosinophils % 4.0 0.0 - 6.0 % 11/02/2023 2:36 PM EST [facility] 56- Absolute Neutrophils 0.71(L) 1.80 - 7.70 K/uL 11/02/2023 2:36 PM EST [facility] 56-02 Absolute Lymphocytes 2.77 1.00 - 4.80 K/uL 11/02/2023 2:36 PM EST [facility] 56-02 Absolute Monocytes 0.32 0.00 - 1.10 K/uL 11/02/2023 2:36 PM EST [facility] 56-02 Absolute Eosinophils 0.16 0.00 - 0.70 K/uL 11/02/2023 2:36 PM EST [facility] 56-02 nRBCs 1(H) <=0 /100 WBCs 11/02/2023 2:36 PM EST [facility] 56-02 Reactive Lymphocytes Present(A ) None Seen 11/02/2023 2:36 PM EST [facility] 56-02 Blood Venous blood specimen / Unknown Central Line / Unknown 11/02/2023 2:15 PM EST 11/02/2023 2:25 PM EST Jitendra Aguero MD LAB BLOOD ORDERABLES [facility] [address]- [address] [facility] [address] * DIFFERENTIAL, AUTOMATED (11/02/2023 2:15 PM EST) Blood Venous blood specimen / Unknown Central Line / Unknown 11/02/2023 2:15 PM EST 11/02/2023 2:25 PM EST Jitendra Aguero MD LAB BLOOD ORDERABLES [facility] 56 [address] [place] [address] * (ABNORMAL) CBC (11/02/2023 2:15 PM EST) WBC 3.95(L) 4.00 - 10.80 K/uL 11/02/2023 2:36 PM EST [facility] 56 RBC 2.39 3.85 - 5.15 M/uL 11/02/2023 2:36 PM EST [address] HGB 9.7(L) 12.0 - 15.3 g/dL 11/02/2023 2:36 PM EST [address] HCT 28.4(L) 36.0 - 45.2 % 11/02/2023 2:36 PM EST [facility] 56 MCV 118.8 81.5 - 97.5 fL 11/02/2023 2:36 PM EST [facility] 56 MCH 40.6 27.0 - 34.0 pg 11/02/2023 2:36 PM EST [facility] 56 MCHC 34.2 32.0 - 36.0 g/dL 11/02/2023 2:36 PM EST [facility] 56 RDW 13.4 11.5 - 15.5 % 11/02/2023 2:36 PM EST [facility] 56 PLT 13(LL) 140 - 400 K/uL 11/02/2023 2:36 PM EST [facility] 56 MPV 9.6 6.6 - 11.1 fL 11/02/2023 2:36 PM EST [facility] 56 Blood Venous blood specimen / Unknown Central Line / Unknown 11/02/2023 2:15 PM EST 11/02/2023 2:25 PM EST Jitendra Aguero MD LAB BLOOD ORDERABLES [facility] [address] [place] [address] documented in this encounter Visit Diagnoses Diagnosis [...] Lock, PRN Other, IV Flush, Starting on Juanita 11/02/23 at 1406, Until Juanita 11/02/23 at 1833, For 24 hours, Do not flush if lock, PICC, or central line not in place; IV infusing or unable to flush. Given 11/02/2023 2:15 PM EST 500 Units sodium chloride 0.9 % flush central line 10 mL 10 mL, IV Push, PRN Other, IV Flush, Starting on Juanita 11/02/23 at 1406, Until Juanita 12 at 1833, For 24 hours, Do not flush if lock, PICC, or central line not in place; IV infusing or unable to flush. Given 11/02/2023 2:15 PM EST 10 mL documented in this [...] the patient have Health Care Power of Internet Marketing Analyst? No Code Status History Code Status Date Activated Date Inactivated Comments Full Code 07/27/2021 7:04 PM 07/31/2021 5:19 PM This order reflects the patients wishes and were consensually agreed upon. Question Answer Comments Discussion of Advance Directives occurred with: Patient Does the patient have a Living Will? No Does the patient have Health Care Power of Internet Marketing Analyst? No Full Code 07/25/2021 12:43 PM 07/25/2021 11:03 PM Thi s order reflects the patients wishes and were consensually agreed upon. Question Answer Comments Discussion of Advance Directives occurred with: Patient/Family Does the patient have a Living Will? No Does the patient have Health Care Power of Internet Marketing Analyst? No Full Code 06/12/2017 2:29 PM 06/12/2017 10:37 PM This order reflects the patients wishes and were consensually agreed upon. Question Answer Comments Discussion of Advance Directives occurred with: Not Discussed Does the patient have a Living Will? No Does the patient have Health Care Power of Internet Marketing Analyst? No Healthcare Agents on File Name Relationship Healthcare Agent [facility] Communication Juanita Silva Adult Child Health Care Agent Care Teams Music Education Adjunct Professor Relationship Specialty Start Date End Date Dhruv Moss MD [address] [place] [id number] PCP - General Family Medicine 08/27/21 documented as of this encounter
--- OUTSIDE RECORDS SUMMARY | 2024-02-26 04:38 | External Medical Summary ---
Author Name Unknown Address Unknown Organization [id number]:[facility] 56-02 [address] [place] [address] Laboratory Report Ordering Provider Test Date Status ANN MUNGUIA 11/02/2023 14:15:00 Final Observation Date Value Abnormality Reference (Units ) Status SYNC LEUKOCYTES IN BLOOD BY AUTOMATED COUNT 11/02/2023 14:15:00 3.95 Below low normal 4.00-10.80 (K/uL) Final Neutrophils/100 leukocytes in Blood by Manual count 11/02/2023 14:15:00 18.0 Below low normal 40.0-75.0 (%) Final Lymphocytes/100 leukocytes in Blood by Manual count 11/02/2023 14:15:00 70.0 Above high normal 18.0-42.0 (%) Final Monocytes/100 leukocytes in Blood by Manual count 11/02/2023 14:15:00 8.0 1.0-11.0 (%) Final Eosinophils/100 leukocytes in Blood by Manual count 11/02/2023 14:15:00 4.0 0.0-6.0 (%) Final Neutrophils [#/volume] in Blood by Manual count 11/02/2023 14:15:00 0.71 Below low normal 1.80-7.70 (K/uL) Final Lymphocytes [#/volume] in Blood by Manual count 11/02/2023 14:15:00 2.77 1.00-4.80 (K/uL) Final Monocytes [#/volume] in Blood by Manual count 11/02/2023 14:15:00 0.32 0.00-1.10 (K/uL) Final Eosinophils [#/volume] in Blood by Manual count 11/02/2023 14:15:00 0.16 0.00-0.70 (K/uL) Final Nucleated erythrocytes/100 leukocytes [Ratio] in Blood by Automated count 11/02/2023 14:15:00 1 Above high normal <=0 (/100 WBCs) Final Variant lymphocytes [Presence] in Blood by Light microscopy 11/02/2023 14:15:00 Present Abnormal None Seen Final Performing Location [facility] [address] [place] [address]
--- OUTSIDE RECORDS SUMMARY | 2024-02-26 04:38 | External Medical Summary | Summary of Care ---
Author Name Unknown Organization [facility] Address [address] [facility] [address] Phone [phone] Care Team Providers Care Public Health Administrator Name Role Phone Dhruv Moss MD Primary Care Provide r Reason for Visit * Reason Onset Date Comments [facility]: Maintenance 11/03/2023 Encounter Details Date Type Department Care Team (Late st Contact Info) Description 11/03/2023 Telephone [facility], [facility] 132 [facility] [place] [address] [facility], Nurse [address] [place] [address] [facility]: Maintenance Allergies No known [...] of less than 8.0% ([facility]) Use with xultophy once a day [...] for Nausea. 60 Tablet 3 12/09/2021 Active PeerTrader Delica Lancets 30GIndications:Type 2 diabetes mellitus with hemoglobin A1c goal of less than 8.0% ([facility]) Use to test blood sugar three times a day DXe11.9 300 Each 3 12/16/2021 Active DecisionPoint SystemsToNeomatrix Verio In Vitro Strip (Glucose Blood)Indications:Ty pe 2 diabetes mellitus with hemoglobin A1c goal of less than 8.0% ([facility]) Use to test blood sugar three times a day DXe11.9 300 Strip 3 12/16/2021 Active DecisionPoint SystemsToNeomatrix Verio Flex System w/Device Kit Use as directed . 0 12/16/2021 Active Magnesium 100 MG Oral TabletIndications:bowers pplement Take 1 Tablet by mouth in the morning. Pt states every 3 days. 0 Active Acetaminophen 500 MG Oral Tablet Take 1 Tablet by mouth every 6 hours as needed. 0 Active Nystatin 005115 UNIT/GM External Cream Apply topically to affected [...] 24 Hour (Imdur)Indications:C oronary artery disease involving [place] coronary artery of [place] heart without angina pectoris,HTN, goal below 140/90 [...] of less than 8.0% ([facility]) Inject 18 Units under the skin at bedtime. 30 mL 3 07/12/2023 Active NovoLIN R 100 UNIT/ML Injection Solution (insulin REGULAR human)Indications:Ty pe 2 diabetes mellitus with hemoglobin A1c goal of less than 8.0% ([facility]) Inject 8 units with breakfast, 4 units with lunch, and 6 units with dinner + sliding scale of 1 units per every 20 over 140 MAX DAILY DOSE 50 units 50 mL 5 07/25/2023 Active Levemir 100 UNIT/ML Subcutaneous Solution (insulin Detemir)Indications: Type 2 diabetes mellitus with hemoglobin A1c goal of less than 8.0% ([facility]) Inject 18 Units under the skin [...] (HCC),Stem cells transplant status (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) 1.5 mg PERINEURAL PRN 05/12/2023 05/11/2024 Active documented as of this encounter (statuses as of 11/03/2023) Active Problems Patient Care Coordination No te Formatting of this note migh t be different from the original. Date of Transplant: 09/01/2021 Conditioning Regimen: Fludarabine / Busulfan 2 with post-transplant Cytoxan ABO/Rh: A Positive CMV status: CMV Positive--- GRID: [id number] [id number] / DID: [id number] Matched Unrelated 10/24--- DPB1 Match ABO/Rh: A [...] Thrombocytopenia 12/06/2022 Last Assessment & Plan: Platelets 48647 on 03/20 Questionable hematuria Urinary incontinence 09/12/2022 [...] failure. Does not have any evidence of yddgt-xmaywh-vhdm disease Last Assessment & Plan: Continues to [...] -continue venlafaxine Coronary artery disease invo lving [place] coronary artery of [place] heart without angina pectoris 06/12/2017 Overview: S/P EDIL to LAD on 06/12/17 Last Assessment & Plan: No angina - Continue atorvastatin, isosorbide, metoprolol - no ASA due to thrombocytopenia Dyslipidemia, goal LDL below 70 11/25/2011 Last Assessment & Plan: Patient having no issues. She continues on Lipitor 40 mg daily Last lab I will was that I can find were from [id number] Assessment/plan: Dyslipidemia with patient currently taking Lipitor [...] mRNA, LNP-s, No Pre serve, 2-Dose Series (Asantae) 02/05/2021,01/08/2021 COVID-19, LNP-s, No Preserve , Ye-sucrose, [...] encounter Miscellaneous Notes * Telephone Encounter - Seble Marcano RN - 11/03/2023 2:00 PM EST Images from the original note were not included. Faxed: [facility] f: [phone] Med List as of 11/03/23 Provider 10/27/23 Acute Home visit note Transmission confirmed: Mayuri Marcano RN, [facility] Intake Triage Coordinator [phone] * Telephone Encounter - Seble Marcano RN - 11/03/2023 11:17 AM EST [facility] with [facility] Got order for Home Health Therapy They need current med list and most recent provider exam note/H&P Faxed med list No provider note in chart Notification made that note in needed before services can start Mayuri Marcano RN, [facility] Intake Triage Coordinator [phone] documented in this encounter Plan of Treatment Upcoming Encounters Date Type Department Care Team (Late st Contact Info) Description 11/08/2023 2:00 PM EST Home Visit [facility], [facility] [address] [place] [address] Marisa Pacheco, RN [address] [place] [address] 11/20/2023 1:00 PM EST Office Visit Pharmacy, [address] [place] [address] [place] [address] 12/14/2023 2:00 PM EST Nurse Only Ancillary [address] [place] [address] [place], Nurse [address] [place] [address] 12/15/2023 2:00 PM EST Immunization/Injec tion Hematology/Oncology Treatment, [place] 200 [facility] [place] [address] Nurse, Med 200 [facility] [place] [address] 12/26/2023 11:15 AM EST Office Visit Hematology/Oncology [facility] 200 [facility] [place] [address] Jitendra Aguero MD 200 [facility] [place] [address] 01/02/2024 2:20 PM EST Office Visit Family Medicine [address] [place] [phone] Dhruv Moss MD [address] [place] [address] [place] [address] 07/03/2024 1:30 PM EDT Imaging Radiology [address] [place] [address] Scheduled Procedures Name Priority Associated Diagnoses Date/Ti [...] 05/13, 05/08/2023, Additional history exists Albumin/Creatinine Ratio 09/15/202409/15/ 023, 03/08/2022, 10/29/2019, Additional history exists DTaP,Tdap,and [...] this encounter Medical Devices Implanted Type Area Horizontal Boring Mill Set Up Operator Device Identifier Shelf Expiration Date Model / Serial / Lot Port Pwr Mri Isp Profile - [id number] Implanted:Qty: 1 on 07/24/2020 by Akash Castillo MD at OR [facility] Right: Chest CR BARD : PERIPHERAL VASCULAR 04/12/2021 [id number] / / [id number] documented as of this encounter Advance Directives [...] the patient have Health Care Power of Box Toe Cementer? No Code Status History Code Status Date Activated Date Inactivated Comments Full Code 07/27/2021 7:04 PM 07/31/2021 5:19 PM This order reflects the patients wishes and were consensually agreed upon. Question Answer Comments Discussion of Advance Directives occurred with: Patient Does the patient have a Living Will? No Does the patient have Health Care Power of Box Toe Cementer? No Full Code 07/25/2021 12:43 PM 07/25/2021 11:03 PM Thi s order reflects the patients wishes and were consensually agreed upon. Question Answer Comments Discussion of Advance Directives occurred with: Patient/Family Does the patient have a Living Will? No Does the patient have Health Care Power of Box Toe Cementer? No Full Code 06/12/2017 2:29 PM 06/12/2017 10:37 PM This order reflects the patients wishes and were consensually agreed upon. Question Answer Comments Discussion of Advance Directives occurred with: Not Discussed Does the patient have a Living Will? No Does the patient have Health Care Power of Box Toe Cementer? No Healthcare Agents on File Name Relationship Healthcare Agent Relationshi p Communication Juanita Silva Adult Child Health Care Agent Care Teams Public Health Administrator Relationship Specialty Start Date End Date Dhruv Moss MD [address] [place] [id number] PCP - General Family Medicine 08/27/21 documented as of this encounter
--- OUTSIDE RECORDS SUMMARY | 2024-02-26 04:38 | External Medical Summary ---
Author Name Unknown Address Unknown Organization K09[facility] [place] [address] Laboratory Report Ordering Provider Test Date Status ANN MUNGUIA 11/02/2023 14:15:00 Final Observation Date Value Abnormality Reference (Units ) Status WBC, Total 11/02/2023 14:15:00 3.95 Below low normal 4.00-10.80 (K/uL) Final RBC 11/02/2023 14:15:00 2.39 3.85-5.15 (M/uL) Final Hemoglobin 11/02/2023 14:15:00 9.7 Below low normal 12.0-15.3 (g/dL) Final HCT 11/02/2023 14:15:00 28.4 Below low normal 36.0-45.2 (%) Final MCV 11/02/2023 14:15:00 118.8 81.5-97.5 (fL) Final MCH 11/02/2023 14:15:00 40.6 27.0-34.0 (pg) Final MCHC 11/02/2023 14:15:00 34.2 32.0-36.0 (g/dL) Final RDW 11/02/2023 14:15:00 13.4 11.5-15.5 (%) Final Platelets 11/02/2023 14:15:00 13 Below lower panic limits 140-400 (K/uL) Final MPV 11/02/2023 14:15:00 9.6 6.6-11.1 (fL) Final Performing Location [facility] [place] [address]
--- OUTSIDE RECORDS SUMMARY | 2024-02-26 04:38 | External Medical Summary | Summary of Care ---
Author Name Unknown Organization [facility] [address] [facility] [address] Phone [phone] Care Team Providers Care Telephone Ad Taker Name Role Phone Dhruv Moss MD Primary Care Provide r Reason for Visit * Reason Onset Date Comments [facility]: Maintenance 11/03/2023 Encounter Details Date Type Department Care Team (Late st Contact Info) Description 11/03/2023 Telephone [facility], [facility] 132 [facility] [place] [address] [facility], Nurse [address] [place] [address] [facility]: Maintenance Allergies No known [...] hemoglobin A1c goal of less than 8.0% ([facility]) Use with xultophy once a [...] for Nausea. 60 Tablet 3 12/09/2021 Active [employer] Delica Lancets 30GIndications:Type 2 diabetes mellitus with hemoglobin A1c goal of less than 8.0% ([facility]) Use to test blood sugar three times a day DXe11.9 300 Each 3 12/16/2021 Active [employer] Verio In Vitro Strip (Glucose Blood)Indications:Ty pe 2 diabetes mellitus with hemoglobin A1c goal of less than 8.0% ([facility]) Use to test blood sugar three times a day DXe11.9 300 Strip 3 12/16/2021 Active [employer] Verio Flex System w/Device Kit Use as directed . 0 12/16/2021 Active Magnesium 100 MG Oral TabletIndications:bowers pplement Take 1 Tablet by mouth in the morning. Pt states every 3 days. 0 Active Acetaminophen 500 MG Oral Tablet Take 1 Tablet by mouth every 6 hours as needed. 0 Active Nystatin 669186 UNIT/GM External Cream Apply topically to affected [...] 24 Hour (Imdur)Indications:C oronary artery disease involving salt river coronary artery of salt river heart without angina pectoris,HTN, goal below 140/90 [...] hemoglobin A1c goal of less than 8.0% ([facility]) Inject 18 Units under the skin at bedtime. 30 mL 3 07/12/2023 Active NovoLIN R 100 UNIT/ML Injection Solution (insulin REGULAR human)Indications:Ty pe 2 diabetes mellitus with hemoglobin A1c goal of less than 8.0% ([facility]) Inject 8 units with breakfast, 4 units with lunch, and 6 units with dinner + sliding scale of 1 units per every 20 over 140 MAX DAILY DOSE 50 units 50 mL 5 07/25/2023 Active Levemir 100 UNIT/ML Subcutaneous Solution (insulin Detemir)Indications: Type 2 diabetes mellitus with hemoglobin A1c goal of less than 8.0% ([facility]) Inject 18 Units under the [...] syndrome), high grade (HCC),Stem cells transplant status ([facility]),Acquired hypothyroidism 1000 mL IV DAILY PRN 12/08/2021 Active bevaCIZumab (Avastin) inj 1.25 mgIndications: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, unspecified whether assisted insulin use ([facility]) 1.25 mg IZ PRN 05/12/2023 05/11/2024 Active ROPivacaine (Naropin) inj 1.5 mgIndications: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 Does not have any evidence of pnkec-jbrrrj-vuvf disease Last Assessment & Plan: Continues to [...] -continue venlafaxine Coronary artery disease invo lving salt river coronary artery of salt river heart without angina pectoris 06/12/2017 Overview: S/P EDIL to LAD on 06/12/17 Last Assessment & Plan: No angina - Continue atorvastatin, isosorbide, metoprolol - no ASA due to thrombocytopenia Dyslipidemia, goal LDL below 70 11/25/2011 Last Assessment & Plan: Patient having no issues. She continues on Lipitor 40 mg daily Last lab I will was that I can find were from [phone] Assessment/plan: Dyslipidemia with patient currently taking Lipitor [...] mRNA, LNP-s, No Pre serve, 2-Dose Series (hurleypalmerflatt) 02/05/2021,01/08/2021 COVID-19, LNP-s, No Preserve , Ye-sucrose, [...] RN - 11/03/2023 11:17 AM EST PC from Joceline with [facility] Got order for Home Health Therapy They need current med list and most recent provider exam note/H&P Faxed med list No provider note in chart Notification made that note in needed before services can start Mayuri Marcano RN, BSN [facility] Intake Triage Coordinator [phone] documented in this encounter Plan of Treatment Upcoming Encounters Date Type Department Care Team (Late st Contact Info) Description 11/08/2023 2:00 PM EST Home Visit [facility]inger at [facility] [address] [place] [address] Marisa Pacheco, RN 132 [place] [address] 11/20/2023 1:00 PM EST Office Visit Pharmacy, [address] [place] [address] [place] [address] 12/14/2023 2:00 PM EST Nurse Only Ancillary [address] [place] [address] Cristina, Nurse [address] [place] [address] 12/15/2023 2:00 PM EST Immunization/Injec tion Hematology/Oncology Treatment, [place] [facility] [address] Nurse, Med 200 [place] [address] 12/26/2023 11:15 AM EST Office Visit Hematology/Oncology [facility] [address] [facility] [address] 01/02/2024 2:20 PM EST Office Visit Family Medicine [address] [place] [phone] Dhruv Moss MD [address] [place] [address] [place] [address] 07/03/2024 1:30 PM EDT Imaging Radiology [address] [place] [address] Scheduled Procedures Name Priority Associated Diagnoses Date/Ti [...] 07/25/2019, Additional history exists TSH 12/06/2023 12/06/2022, 10/11/2021, 03/08/2022, Additional history [...] this encounter Medical Devices Implanted Type Area Maintenance Custodian Device Identifier Shelf Expiration Date Model / Serial / Lot Port Pwr Mri Isp Profile - [id number] Implanted:Qty: 1 on 07/24/2020 by Akash Castillo MD at OR [facility] Right: Chest CR BARD : PERIPHERAL VASCULAR 04/12/2021 [id number] / / [id number] documented as of this encounter Advance Directives [...] the patient have Health Care Power of Dressed Poultry Grader? No Code Status History Code Status Date Activated Date Inactivated Comments Full Code 07/27/2021 7:04 PM 07/31/2021 5:19 PM This order reflects the patients wishes and were consensually agreed upon. Question Answer Comments Discussion of Advance Directives occurred with: Patient Does the patient have a Living Will? No Does the patient have Health Care Power of Dressed Poultry Grader? No Full Code 07/25/2021 12:43 PM 07/25/2021 11:03 PM Thi s order reflects the patients wishes and were consensually agreed upon. Question Answer Comments Discussion of Advance Directives occurred with: Patient/Family Does the patient have a Living Will? No Does the patient have Health Care Power of Dressed Poultry Grader? No Full Code 06/12/2017 2:29 PM 06/12/2017 10:37 PM This order reflects the patients wishes and were consensually agreed upon. Question Answer Comments Discussion of Advance Directives occurred with: Not Discussed Does the patient have a Living Will? No Does the patient have Health Care Power of Dressed Poultry Grader? No Healthcare Agents on File Name Relationship Healthcare Agent [facility] p Communication Juanita Silva Adult Child Health Care Agent Care Teams Telephone Ad Taker Relationship Specialty Start Date End Date Dhruv Moss MD [address] [place] [id number] PCP - General Family Medicine 08/27/21 documented as of this encounter
--- OUTSIDE RECORDS SUMMARY | 2024-02-26 04:38 | External Medical Summary ---
Author Name Unknown Address Unknown Organization [facility] [place] [address] [place] [address] Laboratory Report Ordering Provider Test Date Status ANN MUNGUIA 10/25/2023 09:19:00 Final Observation Date Value Abnormality Reference (Units ) Status SYNC LEUKOCYTES IN BLOOD BY AUTOMATED COUNT 10/25/2023 09:19:00 3.89 Below low normal 4.00-10.80 (K/uL) Final Neutrophils/100 leukocytes in Blood by Manual count 10/25/2023 09:19:00 17.0 Below low normal 40.0-75.0 (%) Final Lymphocytes/100 leukocytes in Blood by Manual count 10/25/2023 09:19:00 68.0 Above high normal 18.0-42.0 (%) Final Monocytes/100 leukocytes in Blood by Manual count 10/25/2023 09:19:00 10.0 1.0-11.0 (%) Final Eosinophils/100 leukocytes in Blood by Manual count 10/25/2023 09:19:00 4.0 0.0-6.0 (%) Final Basophils/100 leukocytes in Blood by Manual count 10/25/2023 09:19:00 1.0 0.0-2.0 (%) Final Neutrophils [#/volume] in Blood by Manual count 10/25/2023 09:19:00 0.66 Below low normal 1.80-7.70 (K/uL) Final Lymphocytes [#/volume] in Blood by Manual count 10/25/2023 09:19:00 2.65 1.00-4.80 (K/uL) Final Monocytes [#/volume] in Blood by Manual count 10/25/2023 09:19:00 0.39 0.00-1.10 (K/uL) Final Eosinophils [#/volume] in Blood by Manual count 10/25/2023 09:19:00 0.16 0.00-0.70 (K/uL) Final Basophils [#/volume] in Blood by Manual count 10/25/2023 09:19:00 0.04 0.00-0.20 (K/uL) Final Nucleated erythrocytes/100 leukocytes [Ratio] in Blood by Automated count 10/25/2023 09:19:00 Final Variant lymphocytes [Presence] in Blood by Light microscopy 10/25/2023 09:19:00 Present Abnormal None Seen Final Performing Location [facility] [place] [address]
--- OUTSIDE RECORDS SUMMARY | 2024-02-26 04:38 | External Medical Summary | Summary of Care ---
Author Name Unknown Organization [facility] Address [address] [place] [address] Phone [phone] Care Team Providers Care Overhead Cleaner Name Role Phone Dhruv Moss MD Primary Care Provide r Reason for Visit * Reason Onset Date Comments [facility]: Maintenance 11/03/2023 Encounter Details Date Type Department Care Team (Late st Contact Info) Description 11/03/2023 Telephone [facility], [address] [place] [address] Services, Scheduling [address] [place] [address] [facility]: Maintenance Allergies No known [...] goal of less than 8.0% ([facility]) Use with xultophy once a [...] for Nausea. 60 Tablet 3 12/09/2021 Active [employer] Delica Lancets 30GIndications:Type 2 diabetes mellitus with hemoglobin A1c goal of less than 8.0% ([facility]) Use to test blood sugar three times a day DXe11.9 300 Each 3 12/16/2021 Active [employer] Verio In Vitro Strip (Glucose Blood)Indications:Ty pe 2 diabetes mellitus with hemoglobin A1c goal of less than 8.0% ([facility]) Use to test blood sugar three times a day DXe11.9 300 Strip 3 12/16/2021 Active [employer] Verio Flex System w/Device Kit Use as directed . 0 12/16/2021 Active Magnesium 100 MG Oral TabletIndications:bowers pplement Take 1 Tablet by mouth in the morning. Pt states every 3 days. 0 Active Acetaminophen 500 MG Oral Tablet Take 1 Tablet by mouth every 6 hours as needed. 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 Hemoglobin yesterday 8.8. Platelets 52281. - weekly CBC. Transfusion to maintain above hemoglobin of 8 Microalbuminuria due to type 2 diabetes mellitus 10/30/2019 Insulin-requiring or dependent type II diabetes mellitus 07/23/2018 Recurrent major depressive disorder, in partial remission 07/23/2018 Last Assessment & Plan: Stable -continue venlafaxine Coronary artery disease invo lving platinum coronary artery of platinum heart without angina pectoris 06/12/2017 Overview: S/P EDIL to LAD on 06/12/17 Last Assessment & Plan: No angina - Continue atorvastatin, isosorbide, metoprolol - no ASA due to thrombocytopenia Dyslipidemia, goal LDL below 70 11/25/2011 Last Assessment & Plan: Patient having no issues. She continues on Lipitor 40 mg daily Last lab I will was that I can find were from [phone] Assessment/plan: Dyslipidemia with patient currently taking Lipitor [...] - 11/03/2023 8:30 AM EST Call to [facility] to arrange HH, they asked that I fax information to them for review. Order, snapshot, HV notes, notes from [facility] faxed today to [facility] at [phone]. documented in this encounter Plan of Treatment Upcoming Encounters Date Type Department Care Team (Late st Contact Info) Description 11/08/2023 2:00 PM EST [facility] [place] 132 [facility] [place] [address] Marisa Pacheco, TANYA [address] [place] [address] 11/20/2023 1:00 PM EST Office Visit Pharmacy, [address] [place] [address] [place] [address] 12/14/2023 2:00 PM EST Nurse Only Ancillary [address] [place] [address] [place], Nurse [address] [place] [address] 12/15/2023 2:00 PM EST Immunization/Injec tion Hematology/Oncology Treatment, [place] [address] [place] [address] Nurse, Med 200 [facility] [place] [address] 12/26/2023 11:15 AM EST Office Visit Hematology/Oncology [facility] [place] [address] [place] [address] Jitendra Aguero MD [address] [place] [address] 01/02/2024 2:20 PM EST Office Visit Family Medicine [address] [place] [phone] Dhruv Moss MD [address] [place] [address] [place] [address] 07/03/2024 1:30 PM EDT Imaging Radiology [address] [place] [address] Scheduled Procedures Name Priority Associated Diagnoses Date/Ti [...] this encounter Medical Devices Implanted Type Area Service Cashier Device Identifier Shelf Expiration Date Model / Serial / Lot Port Pwr Mri Isp Profile - [id number] Implanted:Qty: 1 on 07/24/2020 by Akash Castillo MD at OR [facility] Right: Chest CR BARD : PERIPHERAL VASCULAR 04/12/2021 [id number] / / [id number] documented as of this encounter Advance Directives [...] the patient have Health Care Power of Tilesetter? No Code Status History Code Status Date Activated Date Inactivated Comments Full Code 07/27/2021 7:04 PM 07/31/2021 5:19 PM This order reflects the patients wishes and were consensually agreed upon. Question Answer Comments Discussion of Advance Directives occurred with: Patient Does the patient have a Living Will? No Does the patient have Health Care Power of Tilesetter? No Full Code 07/25/2021 12:43 PM 07/25/2021 11:03 PM Thi s order reflects the patients wishes and were consensually agreed upon. Question Answer Comments Discussion of Advance Directives occurred with: Patient/Family Does the patient have a Living Will? No Does the patient have Health Care Power of Tilesetter? No Full Code 06/12/2017 2:29 PM 06/12/2017 10:37 PM This order reflects the patients wishes and were consensually agreed upon. Question Answer Comments Discussion of Advance Directives occurred with: Not Discussed Does the patient have a Living Will? No Does the patient have Health Care Power of Tilesetter? No Healthcare Agents on File Name Relationship Healthcare Agent [facility] p Communication Juanita Silva Adult Child Health Care Agent Care Teams Overhead Cleaner Relationship Specialty Start Date End Date Dhruv Moss MD [address] [place] [address] [place] [id number] PCP - General Family Medicine 08/27/21 documented as of this encounter
--- OUTSIDE RECORDS SUMMARY | 2024-02-26 04:38 | External Medical Summary | Summary of Care ---
Author Name Unknown Organization [facility] Address [address] [place] [address] Phone [phone] Care Team Providers Care Minister Helper Name Role Phone Dhruv Moss MD Primary Care Provide r Reason for Referral * Evaluate & Treat - Unlimited Visits (Within 10 days (routine)) - Authorized Specialty Diagnoses / Procedures Referred By Conttrevor t Referred To Contact HOME CARE / Home Care Diagnoses Fall in home, initial encounter Tremaine Morgan PA-C [address] [place] [id number] Referral ID Status Reason Start Date Expiration Date Visits Requested Visits Authorized [id number] Authorized Specialty Services Required 3 [phone] Question Answer Referral Priority Within 10 days (routine) Where should this appointment be scheduled? [facility] Comments Documentation of Txdf-br-Ygld Encounter Addendum Patient Name: Ruth Burger I certify that this patient is under my care and that I, or a nurse practitioner or physician's industrial hire sales assistant working with me, had a ujff-kj-zobz encounter that meets the physician nuxi-ak-bqqq encounter requirements with this patient on: 10/27/23 The encounter with the patient was in whole, or in part, for the following medical condition, which is the primary reason for home health care (List medical condition): Gait dysfunction I certify that, based on my findings, the following services are medically necessary home health services: Physical Therapy and OT To provide the following care/treatments: (All hospitalists not following the patient after discharge should complete this section): therapy to maximize independence, improve balance and home safety Primary Care Physician to follow home care plan of care after discharge: Dhruv Moss MD My clinical findings support the need for the above services because: multiple falls at home recently Further, I certify that my clinical findings support that this patient is homebound (i.e. Absences from home require considerable and taxing effort and are for medical reasons or zoroastrian services or infrequently or of short duration when for other reason) because: Unsteady gait, recurrent falls, h/o fall with fracture Physician Signature: Date of Signature: Physician Printed Name: Tremaine Morgan PA-C Encounter Details Date Type Department Care Team (Late st Contact Info) Description 10/27/2023 1:[address] PM EST [facility] [place] [address] Tremaine Morgan PA-C [address] [place] [address] Fall in home, initial encounter*; Ambulatory dysfunction; MDS (myelodysplastic syndrome), high grade (HCC); Type 2 diabetes mellitus with hemoglobin A1c goal of less than 8.0% (HCC); Age-related osteoporosis without current pathological fracture Allergies No known active allergiesdocumented as of [...] goal of less than 8.0% (HCC) Use to test blood sugar three times [...] 6 hours as needed. 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 Does not have any evidence of hgraj-iljvzz-yymv disease Last Assessment & Plan: Continues to [...] -continue venlafaxine Coronary artery disease invo lving ute coronary artery of ute heart without angina pectoris 06/12/2017 Overview: S/P EDIL to LAD on 06/12/17 Last Assessment & Plan: No angina - Continue atorvastatin, isosorbide, metoprolol - no ASA due to thrombocytopenia Dyslipidemia, goal LDL below 70 11/25/2011 Last Assessment & Plan: Patient having no issues. She continues on Lipitor 40 mg daily Last lab I will was that I can find were from [id number] Assessment/plan: Dyslipidemia with patient currently taking Lipitor [...] Sign Reading Time Taken Comments Blood Pressure 130/66 11/03/2023 10:36 AM EST Pulse 70 11/03/2023 10:36 AM EST Temperature - - Respiratory Rate - - Oxygen Saturation 96% 11/03/2023 10:36 AM EST Inhaled Oxygen Concentration - - [...] as of this encounter Progress Notes * Tremaine Morgan PA-C - 10/27/2023 11:26 AM EST Images from the original note were not included. [facility] Problem Oriented Charting Provider Visit Date: 11/03/2023 Time: 10:36 AM [facility] Sub-Program: Focused Care Management (3-9 months) [facility] Episode Start Date: No linked episodes Assessment and Plan #1 Fall in home, initial encounter (Primary) - Home Health Referral OP for PT/OT -h/o fall with fracture #2 Ambulatory dysfunction -continue use of cane #3 MDS (myelodysplastic syndrome), high grade (HCC) Overview: diagnosed in 2019, received 9 cycles of Dacogen, had a very good response, and underwent clinic stem cell transplantation in August 2021 bone marrow done lately on 2 occasions shows recurrence of underlying myelodysplastic syndrome withthe similar chromosomal changes suggest graft failure. Does not have any evidence of pydfq-piwvvw-rwvw disease Assessment & Plan: Continues to follow with [...] - [facility] 9.5 (L) 12/03/2020 09:20 AM #4 Type 2 diabetes mellitus with hemoglobin A1c goal of less than 8.0% (HCC) Overview: ICD-10 update of inactive term Assessment & Plan: "RED FLAG" Diabetic symptoms: Rapid Weight Loss, Confusion, and Vision Changes Goal HgbA1c <8 Diabetic Complications Vascular (examples: PVD, PAD, CAD, CVA) Neurologic (example: Peripheral Neuropathy) Medication Regimen Metformin Basal/Long Acting Insulin Bolus/Short Acting Insulin DM Secondary Prevention Moderate-High Intensity Statin Additional Comments Follows with MTM #5 Age-related osteoporosis without current pathological fracture -h/o hip fracture following fall -continue vitamin d -discussed fosamax/actonel with PCP, not started yet Additional Medical Decision Making: Patient lives with spouse MDS - s/p stem cell transplant Follows with hematology, labs weekly Biggest concern today is recurrent falls, will order for PT/OT Scheduled appointments in the next 60 days: Future Appointments-next 60 days Date/Time Provider Specialty Dept Phone 11/08/2023 2:00 PM Marisa Pacheco RN [facility] [phone] 11/20/2023 1:00 PM [facility] [phone] 12/14/2023 2:00 PM Nurse Cristina [facility] [phone] 12/15/2023 2:00 PM NurseNarciso 4 Hematology Oncology [phone] 12/26/2023 11:15 AM (Arrive by 11:00 AM) Jitendra Aguero MD Hematology Oncology [phone] 01/02/2024 2:20 PM (Arrive by 2:05 PM) Dhruv Moss MD Family Medicine [phone] 07/03/2024 1:30 PM (Arrive by 1:15 PM) [facility] Radiology [phone] A total of 30 minutes was spent face to face (via video-based telemedicine if designated as a telemedicine visit) Subjective Subjective Is this a Telemedicine Visit? No, this is an Home Visit. Reason For [facility] Visit: Follow-Up Current Concerns: Ruth Burger is a 73 year old female [facility]. Today's concerns are: Reports having multiple falls over the past month Denies dizziness, feeling lightheaded, or LOC Denies significant injuries, does have bruised right elbow from recent fall Feels like legs are becoming weak at times and giving out Using cane to assist with ambulation Denies SOB, cough, fever/chills, dysuria Appetite stable Does not follow recommended diabetic diet and sugars have been elevated admits to buying too much junk food for the house Follows with MTM for DM management Continues on levemir, novolin and metformin Using jojo CGM Additional Objective Objective Vitals: 11/03/23 1036 Pulse: 70 SpO2: 96% BP: 130/66 Last Weights: Wt Readings from Last 3 Encounters: 08/24/23 74.5 kg (164 lb 3.2 oz) 07/04/23 71.2 kg (156 lb 14.4 oz) 06/20/23 71.6 kg (157 lb 14.4 oz) Last BPs: BP Readings from Last 4 Encounters: 11/03/23 130/66 09/27/23 124/74 08/28/23 120/58 08/24/23 156/72 General: alert and no distress Neuro: alert & oriented x 3 with fluent speech Heart: regular rate & rhythm and no murmur Lungs: lungs clear to auscultation Abdomen: abdomen soft, non-tender, normal bowel sounds, and no rebound or guarding Ext:right elbow with bruise, no pain with rom No leg edema Lab Review: I have reviewed the following results: Imaging results in the last [address] CHEST WO CONTRAST Result Date: 07/01/2023 IMPRESSION: 1. Slightly increased chronic interstitial lung changes compared to prior and 2021 withprobable usual interstitial pneumonitis (UIP) pattern. Differential diagnosis for etiology includesidiopathic pulmonary fibrosis or secondary underlying systemic diseases such as connective tissue disease. 2. Stable 7 mm solid left upper lobe pulmonary nodule. Recommend CT Chest at 18-24 months from prior exam on 08/24/2022. (Reference: Carline) 3. Severe coronary arterial calcification, indicating the presence of coronary artery disease. If the patient has associated symptoms recommend management as per chest pain guidelines. If the patient is asymptomatic consider reviewing modifiable card iovascular risk factors and managing as per guidelines for primary prevention. REFERENCES: beatriz Ashley al. Guidelines for Management of Incidental Pulmonary Nodules Detected on CT Images: From theFleischner Society 2017. Radiology. 2017;284(1):228-243. THIS DOCUMENT HAS BEEN ELECTRONICALLY SIGNED BY COSMO ZEE MD DEXA SCAN/BONE MINERAL AXIAL Result Date: 06/14/2023 S: Fracture risk is based on current National Osteoporosis Foundation (www.nof.org) Clinicians Guide and [place] Association of Clinical Endocrinology (AACE) Guidelines (www.aace.com) and the application of current WHO FRAX tool (https://www.tamera.ac.uk/FRAX/) as well as the 2017 [place] College [employer] Rheumatology Glucocorticoid Induced Osteoporosis (GIOP) Guidelines (rheumatology.org/Practice-Quality/Clinical-Support/Oftjwbdu-Qexpnjna-Tvair lines) using Bone mineral density derived T-scoresand clinical risk factors obtained from the patient questionnaire. 1. The fracture risk is HIGH (based on non-traumatic fracture of the spine or hip) 2. The quality of the examination is GOOD. The values at the lumbar spine are falsely elevated, and therefore the values at the hip/femoral neck are a better reflection of fracture risk in this patient. 3. No previous study for comparison. SUGGESTIONS: Information concerning the evaluation and treatment of osteoporosis can be found at the National Osteoporosis Foundation website (www.nof.org) and [place] Association of Clinical Endocrinology (AACE-www.aace.com). Osteoporosis prevention and treatment begins bymodifying risk factors (such as smoking cessation and avoiding alcohol excess) and by participatingin weight-bearing activities and exercise. Issues related to fall prevention and home safety shouldbe addressed. Current NOF guidelines suggest 1200 to 1500 mg of calcium from diet and or supplemental sources. It is generally felt best to get calcium from ones diet. Calcium carbonate and calcium citrate are common calcium supplement choices in most local pharmacies. If the patient is taking aproton pump inhibitor, then calcium citrate should be the preferred supplement, if that is necessary. NOF guidelines for vitamin D are 800 to 1000 units of vitamin D3 daily. However, this may best beguided by measurement of 25-OH vitamin-D level, aiming for a level between 30 to 50 units (ng/ml). Additional information can be found at the FRAX website (https://www.tamera.ac.uk/FRAX/), and theAmerican College of Rheumatology website (https://www.rheumatology.org/Practice-Quality/Clinical-Support/Clinical-Pr actice-Guidelines). 1. Treatment with a bisphosphonate (such as Fosamax/Alendronate, Actonel/Risedronate, or Boniva/Ibandronate) should be considered. If the patient is unable to usean oral bisphosphonate, another agent such as IV bisphosphonates (Boniva/Ibandronate or Reclast/Zoledronic Acid ), Prolia/Denosumab Forteo/Teriparatide, Tymlos/Abaloparatide, Evenity/Romosozumab, or a selective estrogen receptor modulator (Evista/Raloxifene) should be considered. Secondary causes of low bone density should be considered. A 25-OH Vitamin D, serum calcium, and creatinine should be obtained. Other studies can be considered which would include a PTH, IEP, TSH, or Testosterone (in men). (For users of [employer], there is an osteoporosis Smart Set #1146). 2. A repeat study should be considered in 2 years, after therapy is started ANALISA WHEELER M.D. ISCArmand Certified Clinical Guidance And Control System Engineer Department of Rheumatology [facility] [place] BMP results Recent Labs Units 06/07/23 0813 05/31/23 1045 05/08/23 0829 SODIUM - [facility] mmol/L 143 140 136 POTASSIUM - [facility] mmol/L 4.5 5.3* 4.8 CHLORIDE - [facility] mmol/L 107 103 100 CO2 - [facility] mmol/L 26 27 25 CREATININE - [facility] mg/dL 0.8 0.8 0.9 BUN - [facility] mg/dL 13 15 20 Lipid panel results Recent Labs Units 11/03/22 1138 09/12/22 1009 06/08/22 0808 CHOLESTEROL - [facility] mg/dL 184 195 201* LDL CHOLESTEROL (CALCULATED) - [facility] mg/dL -- 99 -- HDL CHOLESTEROL - [facility] mg/dL 43* 39* 39* TRIGLYCERIDES - [facility] mg/dL 300* 285* 410* CBC results Recent Labs Units 11/02/23 1415 10/25/23 0919 10/18/23 0851 WBC AUTO - [facility] K/uL 3.95* 3.89* 4.09 HGB - [facility] g/dL 9.7* 9.8* 9.6* HCT - [facility] % 28.4* 29.0* 27.9* PLATELET AUTO - [facility] K/uL 13* 11* 14* HbA1c results Recent Labs Units 12/06/22 1202 08/30/22 0940 03/08/22 1013 HEMOGLOBIN A1C - [facility] % 8.0* 7.4* 6.1* [facility]: Assistive Devices Used in the Home: Straight or Guard Cane Tremaine Morgan PA-C 10:36 AM *Communication sent to PCP (via autofax if non-[facility]), [facility] Care Team members,relevant Specialty Care Physicians* documented in this encounter Miscellaneous Notes * Assessment & Plan Note - Tremaine Morgan PA-C - 11/03/2023 10:45 AM EST Associated Problem(s): Type 2 diabetes mellitus with hemoglobin A1c goal of less than 8.0% (HCC) "RED FLAG" Diabetic symptoms: Rapid Weight Loss, Confusion, and Vision Changes Goal HgbA1c <8 Diabetic Complications Vascular (examples: PVD, PAD, CAD, CVA) Neurologic (example: Peripheral Neuropathy) Medication Regimen Metformin Basal/Long Acting Insulin Bolus/Short Acting Insulin DM Secondary Prevention Moderate-High Intensity Statin Additional Comments Follows with [facility] * Assessment & Plan Note - Tremaine Morgan PA-C - 11/03/2023 10:42 AM EST Associated Problem(s): MDS (myelodysplastic syndrome), high grade (HCC) Continues to follow with hematology CBCd weekly [...] - [facility] 9.5 (L) 12/03/2020 09:20 AM documented in this encounter Plan of Treatment Upcoming Encounters Date Type Department Care Team (Late st Contact Info) Description 11/08/2023 2:00 PM EST Home Visit [facility] [address] [place] [address] Marisa Pacheco, RN [address] [place] [address] 11/20/2023 1:00 PM EST Office Visit Pharmacy, [address] [place] [address] [phone] [place] [address] [place] [address] 12/14/2023 2:00 PM EST Nurse Only Ancillary [address] [place] [address] Cristina, Nurse [address] [place] [address] 12/15/2023 2:00 PM EST Immunization/Injec tion Hematology/Oncology Treatment[facility] [place] [facility] [address] [facility], Med [address] [facility] [place] [address] 12/26/2023 11:15 AM EST Office Visit Hematology/Oncology [facility] [address] [place] [address] Jitendra Aguero MD [address] [place] [address] 01/02/2024 2:20 PM EST Office Visit Family Medicine [address] [place] [phone] Dhruv Moss MD [address] [place] [address] [place] [address] 07/03/2024 1:30 PM EDT Imaging Radiology [address] [place] [address] Scheduled Procedures Name Priority Associated Diagnoses Date/Ti me COLONOSCOPY FLEXIBLE PROXIMA L DIAGNOSTIC Recall Encounter for screening colonoscopy Scheduled Referrals Name Type Priority Associated Diagnoses Orde r Schedule HOME HEALTH REFERRAL OP Referral Within 10 days (routine) Fall in home, initial encounter Ordered: 10/31/2023 Health Maintenance Due Date Last Done Comments [...] this encounter Medical Devices Implanted Type Area Parts Coordinator Device Identifier Shelf Expiration Date Model / Serial / Lot Port Pwr Mri Isp Profile - [id number] Implanted:Qty: 1 on 07/24/2020 by Akash Castillo MD at OR [facility] Right: Chest CR BARD : PERIPHERAL VASCULAR 04/12/2021 [id number] / / [id number] documented as of this encounter Visit Diagnoses Diagnosis Fall in home, initial encounter- Primary Ambulatory dysfunction MDS (myelodysplastic syndrome), high grade (HCC) High grade myelodysplastic syndrome lesions Type 2 diabetes mellitus with hemoglobin A1c goal of less than 8.0% (HCC) Age-related osteoporosis without current pathological fracture Senile osteoporosis documented in this encounter Advance Directives Latest Code Status on File Code Status Date Activated Date Inactivated Comments Full Code 08/27/2021 1:10 PM 09/21/2021 5:49 PM This order reflects the patients wishes and were consensually agreed upon. Question Answer Comments Discussion of Advance Directives occurred with: Patient/Family Does the patient have a Living Will? No Does the patient have Health Care Power of Commodity Lead? No Code Status History Code Status Date Activated Date Inactivated Comments Full Code 07/27/2021 7:04 PM 07/31/2021 5:19 PM This order reflects the patients wishes and were consensually agreed upon. Question Answer Comments Discussion of Advance Directives occurred with: Patient Does the patient have a Living Will? No Does the patient have Health Care Power of Commodity Lead? No Full Code 07/25/2021 12:43 PM 07/25/2021 11:03 PM Thi s order reflects the patients wishes and were consensually agreed upon. Question Answer Comments Discussion of Advance Directives occurred with: Patient/Family Does the patient have a Living Will? No Does the patient have Health Care Power of Commodity Lead? No Full Code 06/12/2017 2:29 PM 06/12/2017 10:37 PM This order reflects the patients wishes and were consensually agreed upon. Question Answer Comments Discussion of Advance Directives occurred with: Not Discussed Does the patient have a Living Will? No Does the patient have Health Care Power of Commodity Lead? No Healthcare Agents on File Name Relationship Healthcare Agent Relationshi p Communication Juanita Silva Adult Child Health Care Agent Care Teams Minister Helper Relationship Specialty Start Date End Date Dhruv Moss MD [address] [place] [address] [place] [address] PCP - General Family Medicine 08/27/21 documented as of this encounter
--- OUTSIDE RECORDS SUMMARY | 2024-02-26 04:38 | External Medical Summary ---
Author Name Unknown Address Unknown Organization K01:[facility] [address] [facility] [place] [address] Laboratory Report Ordering Provider Test Date Status ANN MUNGUIA 11/08/2023 12:01:54 Final Observation Date Value Abnormality Reference (Units ) Status SYNC LEUKOCYTES IN BLOOD BY AUTOMATED COUNT 11/08/2023 12:01:54 5.76 4.00-10.80 (K/uL) Final Neutrophils/100 leukocytes in Blood by Manual count 11/08/2023 12:01:54 24.0 Below low normal 40.0-75.0 (%) Final Lymphocytes/100 leukocytes in Blood by Manual count 11/08/2023 12:01:54 58.0 Above high normal 18.0-42.0 (%) Final Monocytes/100 leukocytes in Blood by Manual count 11/08/2023 12:01:54 3.0 1.0-11.0 (%) Final Basophils/100 leukocytes in Blood by Manual count 11/08/2023 12:01:54 1.0 0.0-2.0 (%) Final Metamyelocytes/100 leukocytes in Blood by Manual count 11/08/2023 12:01:54 1.0 Above high normal <=0.0 (%) Final Myelocytes/100 leukocytes in Blood by Manual count 11/08/2023 12:01:54 3.0 Above high normal <=0.0 (%) Final Blasts/100 leukocytes in Blood by Manual count 11/08/2023 12:01:54 10.0 Above high normal <=0.0 (%) Final Neutrophils [#/volume] in Blood by Manual count 11/08/2023 12:01:54 1.38 Below low normal 1.80-7.70 (K/uL) Final Lymphocytes [#/volume] in Blood by Manual count 11/08/2023 12:01:54 3.34 1.00-4.80 (K/uL) Final Monocytes [#/volume] in Blood by Manual count 11/08/2023 12:01:54 0.17 0.00-1.10 (K/uL) Final Basophils [#/volume] in Blood by Manual count 11/08/2023 12:01:54 0.06 0.00-0.20 (K/uL) Final Metamyelocytes [#/volume] in Blood by Manual count 11/08/2023 12:01:54 0.06 Above high normal <=0.00 (K/uL) Final Myelocytes [#/volume] in Blood by Manual count 11/08/2023 12:01:54 0.17 Above high normal <=0.00 (K/uL) Final Blasts [#/volume] in Blood by Manual count 11/08/2023 12:01:54 0.58 Above high normal <=0.00 (K/uL) Final Neutrophils.agranular [Presence] in Blood by Light microscopy 11/08/2023 12:01:54 Present Abnormal None Seen Final Performing Location [facility] [place] - [address]. [facility] [address]
--- OUTSIDE RECORDS SUMMARY | 2024-02-26 04:38 | External Medical Summary | Summary of Care ---
Author Name Unknown Organization [facility] Address [address] [place] [address] Phone [phone] Care Team Providers Care Crm Manager Name Role Phone Dhruv Moss MD Primary Care Provide r Reason for Visit * Reason Comments Procedure Labs via port/port f lush Encounter Details Date Type Department Care Team (Late st Contact Info) Description 11/02/2023 2:00 PM EST Immunization/I njection Hematology/Oncology Treatment, [place] [address] [place], [place] [id number] Nurse, Med [address] [place] [id number] MDS (myelodysplastic syndrome), high grade (HCC)*; Hypomagnesemia; H/O allogeneic bone marrow transplant (HCC); Dehydration Allergies No known active allergiesdocumented as of this encounter (statuses as of 11/02/2023) Medications Medication Sig Dispensed Refills Start Date End Date Status Cholecalciferol (VITAMIN D3) 5000 UNITS TabletIndications:bowers pplement Take 1 Tablet by mouth in the morning. 0 05/14/2015 Active BD Pen Needle Mini U/F 31G X 5 MM (Insulin Pen Needle)Indications:T ype 2 diabetes mellitus with hemoglobin A1c goal of less than 8.0% ([facility]) Use with xultophy once a [...] for Nausea. 60 Tablet 3 12/09/2021 Active CoverItLiveTouch Delica Lancets 30GIndications:Type 2 diabetes mellitus with hemoglobin A1c goal of less than 8.0% ([facility]) Use to test blood sugar three times a day DXe11.9 300 Each 3 12/16/2021 Active OneTouch Verio In Vitro Strip (Glucose Blood)Indications:Ty pe 2 diabetes mellitus with hemoglobin A1c goal of less than 8.0% ([facility]) Use to test blood sugar three times a day DXe11.9 300 Strip 3 12/16/2021 Active CoverItLiveTouch Verio Flex System w/Device Kit Use as directed . 0 12/16/2021 Active Magnesium 100 MG Oral TabletIndications:bowers pplement Take 1 Tablet by mouth in the morning. Pt states every 3 days. 0 Active Acetaminophen 500 MG Oral Tablet Take 1 Tablet by mouth every 6 hours as needed. 0 Active Nystatin 904357 UNIT/GM External Cream Apply topically to affected [...] 24 Hour (Imdur)Indications:C oronary artery disease involving [place] coronary artery of [place] heart without angina pectoris,HTN, goal below 140/90 [...] A1c goal of less than 8.0% ([facility]) Inject 18 Units under the skin at bedtime. 30 mL 3 07/12/2023 Active NovoLIN R 100 UNIT/ML Injection Solution (insulin REGULAR human)Indications:Ty pe 2 diabetes mellitus with hemoglobin A1c goal of less than 8.0% ([facility]) Inject 8 units with breakfast, 4 units with lunch, and 6 units with dinner + sliding scale of 1 units per every 20 over 140 MAX DAILY DOSE 50 units 50 mL 5 07/25/2023 Active Levemir 100 UNIT/ML Subcutaneous Solution (insulin Detemir)Indications: Type 2 diabetes mellitus with hemoglobin A1c goal of less than 8.0% ([facility]) Inject 18 Units under the [...] high grade (HCC),Stem cells transplant status ([facility]),Acquired hypothyroidism 1000 mL IV DAILY PRN 12/08/2021 Active bevaCIZumab (Avastin) inj 1.25 mgIndications: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, 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 Date of Transplant: 09/01/2021 Conditioning Regimen: Fludarabine / Busulfan 2 with post-transplant Cytoxan ABO/Rh: A Positive CMV status: CMV Positive--- GRID: [id number] / DID: [id number] Matched Unrelated 10/24--- DPB1 Match ABO/Rh: A [...] Thrombocytopenia 12/06/2022 Last Assessment & Plan: Platelets 40869 on 03/20 Questionable hematuria Urinary incontinence 09/12/2022 [...] Currently in relapse. Hemoglobin yesterday 8.8. Platelets 70777. - weekly CBC. Transfusion to maintain above hemoglobin of 8 Microalbuminuria due to type 2 diabetes mellitus 10/30/2019 Insulin-requiring or dependent type II diabetes mellitus 07/23/2018 Recurrent major depressive disorder, in partial remission 07/23/2018 Last Assessment & Plan: Stable -continue venlafaxine Coronary artery disease invo lving [place] coronary artery of [place] heart without angina pectoris 06/12/2017 Overview: S/P EDIL to LAD on 06/12/17 Last Assessment & Plan: No angina - Continue atorvastatin, isosorbide, metoprolol - no ASA due to thrombocytopenia Dyslipidemia, goal LDL below 70 11/25/2011 Last Assessment & Plan: Patient having no issues. She continues on Lipitor 40 mg daily Last lab I will was that I can find were from [id number] Assessment/plan: Dyslipidemia with patient currently taking Lipitor [...] as of this encounter (statuses as of 11/02/2023) Resolved Problems Problem Noted Date Diagnosed Date [...] as of this encounter (statuses as of 11/02/2023) Immunizations Name Administration Dates Next Due COVID-19 [...] in stable condition. documented in this encounter Plan of Treatment Upcoming Encounters Date Type Department Care Team (Late st Contact Info) Description 11/08/2023 2:00 PM EST [facility] Visit [facility] [address] [facility] [place] [address] Marisa Pacheco RN 132 [facility] [place] [address] 11/20/2023 1:00 PM EST Office Visit Pharmacy, [address] [place] [phone] [place] [address] 12/14/2023 2:00 PM EST Nurse Only Ancillary [address] [place] [address] Cristina Nurse [address] [place] [address] 12/15/2023 2:00 PM EST Immunization/Injec tion Hematology/Oncology Treatment, [place] [address] [place] [address] Nurse, [facility] [address] [facility] [place] [address] 12/26/2023 11:15 AM EST Office Visit Hematology/Oncology [facility] [place] [address] [place] [address] Jitendra Aguero MD [address] [facility] [place] [address] 01/02/2024 2:20 PM EST Office Visit Family Medicine [address] [place] [phone] Dhruv Moss MD [address] [place] [address] [place] [address] 07/03/2024 1:30 PM EDT Imaging Radiology [address] [place] [address] Scheduled Procedures Name Priority Associated Diagnoses Date/Ti [...] this encounter Medical Devices Implanted Type Area Plate Inspector Device Identifier Shelf Expiration Date Model / Serial / Lot Port Pwr Mri Isp Profile - [id number] Implanted:Qty: 1 on 07/24/2020 by Akash Castillo MD at OR [facility] Right: Chest CR BARD : PERIPHERAL VASCULAR 04/12/2021 [id number] / / [id number] documented as of this encounter Procedures Procedure [...] - 10.80 K/uL 11/02/2023 2:36 PM EST [facility] 56-02 Neutrophils % 18.0(L) 40.0 - 75.0 % 11/02/2023 2:36 PM EST [facility] 56- Lymphocytes % 70.0(H) 18.0 - 42.0 % 11/02/2023 2:36 PM EST [facility] 56- Monocytes % 8.0 1.0 - 11.0 % 11/02/2023 2:36 PM EST [facility] 56- Eosinophils % 4.0 0.0 - 6.0 % 11/02/2023 2:36 PM EST [facility] 56 Absolute Neutrophils 0.71(L) 1.80 - 7.70 K/uL 11/02/2023 2:36 PM EST [facility] 56- Absolute Lymphocytes 2.77 1.00 - 4.80 K/uL 11/02/2023 2:36 PM EST [facility] 56- Absolute Monocytes 0.32 0.00 - 1.10 K/uL 11/02/2023 2:36 PM EST [facility] 56- Absolute Eosinophils 0.16 0.00 - 0.70 K/uL 11/02/2023 2:[address] [facility] 56 nRBCs 1(H) <=0 /100 WBCs 11/02/2023 2:[address] [facility] 56 Reactive Lymphocytes Present(A ) None Seen 11/02/2023 2:[address] [facility] 56 Blood Venous blood specimen / Unknown Central Line / Unknown 11/02/2023 2:15 PM EST 11/02/2023 2:25 PM EST Jitendra Aguero MD LAB BLOOD ORDERABLES [facility] [address] [place] [address] * DIFFERENTIAL, AUTOMATED (11/02/2023 2:15 PM EST) Blood Venous blood specimen / Unknown Central Line / Unknown 11/02/2023 2:15 PM EST 11/02/2023 2:25 PM EST Jitendra Aguero MD LAB BLOOD ORDERABLES [facility] 56 [address] [place] [address] * (ABNORMAL) CBC (11/02/2023 2:15 PM EST) WBC 3.95(L) 4.00 - 10.80 K/uL 11/02/2023 2:36 PM EST [address] RBC 2.39 3.85 - 5.15 M/uL 11/02/2023 2:36 PM EST [address] HGB 9.7(L) 12.0 - 15.3 g/dL 11/02/2023 2:36 PM EST [address] HCT 28.4(L) 36.0 - 45.2 % 11/02/2023 2:36 PM EST [address] MCV 118.8 81.5 - 97.5 fL 11/02/2023 2:36 PM EST [address] MCH 40.6 27.0 - 34.0 pg 11/02/2023 2:36 PM EST [place] [address] MCHC 34.2 32.0 - 36.0 g/dL 11/02/2023 2:36 PM EST [address] RDW 13.4 11.5 - 15.5 % 11/02/2023 2:36 PM EST [facility] 56 PLT 13(LL) 140 - 400 K/uL 11/02/2023 2:36 PM EST [address] MPV 9.6 6.6 - 11.1 fL 11/02/2023 2:[address] [facility] 56 Blood Venous blood specimen / Unknown Central Line / Unknown 11/02/2023 2:15 PM EST 11/02/2023 2:25 PM EST Jitendra Aguero MD LAB BLOOD ORDERABLES [facility] 56 [address] [place] [address] documented in this encounter Visit Diagnoses Diagnosis [...] Starting on Juanita 11/02/23 at 1406, Until 11/03/23 at 1405, For 24 hours, Do not flush if lock, PICC, or central line not in place; IV infusing or unable to flush. Given 11/02/2023 2:15 PM EST 500 Units sodium chloride 0.9 % flush central line 10 mL 10 mL, IV Push, PRN Other, IV Flush, Starting on Juanita 11/02/23 at 1406, Until 11/03/23 at 1405, For 24 hours, Do not flush if [...] the patient have Health Care Power of Bin Tripper Operator? No Code Status History Code Status Date Activated Date Inactivated Comments Full Code 07/27/2021 7:04 PM 07/31/2021 5:19 PM This order reflects the patients wishes and were consensually agreed upon. Question Answer Comments Discussion of Advance Directives occurred with: Patient Does the patient have a Living Will? No Does the patient have Health Care Power of Bin Tripper Operator? No Full Code 07/25/2021 12:43 PM 07/25/2021 11:03 PM Thi s order reflects the patients wishes and were consensually agreed upon. Question Answer Comments Discussion of Advance Directives occurred with: Patient/Family Does the patient have a Living Will? No Does the patient have Health Care Power of Bin Tripper Operator? No Full Code 06/12/2017 2:29 PM 06/12/2017 10:37 PM This order reflects the patients wishes and were consensually agreed upon. Question Answer Comments Discussion of Advance Directives occurred with: Not Discussed Does the patient have a Living Will? No Does the patient have Health Care Power of Bin Tripper Operator? No Healthcare Agents on File Name Relationship Healthcare Agent [facility] p Communication Juanita Silva Adult Child Health Care Agent Care Teams Crm Manager Relationship Specialty Start Date End Date Dhruv Moss MD [address] [place] [address] [place] [address] PCP - General Family Medicine 08/27/21 documented as of this encounter
--- OUTSIDE RECORDS SUMMARY | 2024-02-26 04:39 | External Medical Summary ---
Author Name Unknown Address Unknown Organization [id number]:LABORATORY [facility] - [address] [place] [address] [place] [address] Laboratory Report Ordering Provider Test Date Status CJJUANKIMBERLY 09/15/2023 08:06:00 Final Normal: <30 mg/g creatinine< br/>High: 30-300 mg/g creatinine
Very High: >300 mg/g creatinine
Nephrotic: >2200 mg/g creatinine Observation Date Value Abnormality Reference (Units ) Status Albumin, Urine 09/15/2023 08:06:00 <1.20 (mg/d L) Final This testing was performed a s part of a [facility] [employer] fulfillment initiative Creatinine, Urine 09/15/2023 08:06:00 68 (m g/dL) Final Albumin/Creatinine [Mass Rat io] in Urine 09/15/2023 08:06:00 <18 <30 (mg/g Creat) Pricilla mullen Performing Location [facility] - [address] [facility] [place] [address]
--- OUTSIDE RECORDS SUMMARY | 2024-02-26 04:39 | External Medical Summary ---
Author Name Unknown Address Unknown Organization [facility] [address] [place] [address] Laboratory Report Ordering Provider Test Date Status ANN MUNGUIA 09/27/2023 08:43:00 Final Observation Date Value Abnormality Reference (Units ) Status WBC, Total 09/27/2023 08:43:00 4.11 4.00-10.80 (K/uL) Final RBC 09/27/2023 08:43:00 2.52 3.85-5.15 (M/uL) Final Hemoglobin 09/27/2023 08:43:00 10.3 Below low normal 12.0-15.3 (g/dL) Final HCT 09/27/2023 08:43:00 30.3 Below low normal 36.0-45.2 (%) Final MCV 09/27/2023 08:43:00 120.2 81.5-97.5 (fL) Final MCH 09/27/2023 08:43:00 40.9 27.0-34.0 (pg) Final MCHC 09/27/2023 08:43:00 34.0 32.0-36.0 (g/dL) Final RDW 09/27/2023 08:43:00 13.0 11.5-15.5 (%) Final Platelets 09/27/2023 08:43:00 19 Below lower panic limits 140-400 (K/uL) Final MPV 09/27/2023 08:43:00 10.1 6.6-11.1 (fL) Final Performing Location [facility] 0 - [address] [place] [address]
--- OUTSIDE RECORDS SUMMARY | 2024-02-26 04:39 | External Medical Summary ---
Author Name Unknown Address Unknown Organization K0G:[facility] - [address] [place] [address] Laboratory Report Ordering Provider Test Date Status ANN MUNGUIA 09/27/2023 08:43:00 Final Observation Date Value Abnormality Reference (Units ) Status SYNC LEUKOCYTES IN BLOOD BY AUTOMATED COUNT 09/27/2023 08:43:00 4.11 4.00-10.80 (K/uL) Final Neutrophils/100 leukocytes in Blood by Manual count 09/27/2023 08:43:00 25.0 Below low normal 40.0-75.0 (%) Final Lymphocytes/100 leukocytes in Blood by Manual count 09/27/2023 08:43:00 64.0 Above high normal 18.0-42.0 (%) Final Monocytes/100 leukocytes in Blood by Manual count 09/27/2023 08:43:00 7.0 1.0-11.0 (%) Final Eosinophils/100 leukocytes in Blood by Manual count 09/27/2023 08:43:00 4.0 0.0-6.0 (%) Final Neutrophils [#/volume] in Blood by Manual count 09/27/2023 08:43:00 1.03 Below low normal 1.80-7.70 (K/uL) Final Lymphocytes [#/volume] in Blood by Manual count 09/27/2023 08:43:00 2.63 1.00-4.80 (K/uL) Final Monocytes [#/volume] in Blood by Manual count 09/27/2023 08:43:00 0.29 0.00-1.10 (K/uL) Final Eosinophils [#/volume] in Blood by Manual count 09/27/2023 08:43:00 0.16 0.00-0.70 (K/uL) Final Nucleated erythrocytes/100 leukocytes [Ratio] in Blood by Automated count 09/27/2023 08:43:00 Final Variant lymphocytes [Presence] in Blood by Light microscopy 09/27/2023 08:43:00 Present Abnormal None Seen Final Performing Location [facility]ORY [place] 57-[address] 0 - [address] [place] [address]
--- OUTSIDE RECORDS SUMMARY | 2024-02-26 04:39 | External Medical Summary | Summary of Care ---
Author Name Unknown Organization [facility] Address [address] [facility] [address] Phone [phone] Care Team Providers Care Master Chef Name Role Phone Dhruv Moss MD Primary Care Provide r Reason for Visit * Reason Comments [facility]: Maintenance Encounter Details Date Type Department Care Team (Late st Contact Info) Description 09/27/2023 11:30 AM EST Home Visit [facility], [facility] [address] [facility] [place] [address] Marisa Pacheco, RN [address] [facility] [place] [address] Allergies No known active allergiesdocumented as of this encounter (statuses as of 09/30/2023) Medications Medication Sig Dispensed Refills Start Date [...] for Nausea. 60 Tablet 3 12/09/2021 Active [employer] Delica Lancets 30GIndications:Type 2 diabetes mellitus with hemoglobin A1c goal of less than 8.0% ([facility]) Use to test blood sugar three times a day DXe11.9 300 Each 3 12/16/2021 Active [employer] Verio In Vitro Strip (Glucose Blood)Indications:Ty pe 2 diabetes mellitus with hemoglobin A1c goal of less than 8.0% ([facility]) Use to test blood sugar three times a day DXe11.9 300 Strip 3 12/16/2021 Active [employer] Verio Flex System w/Device Kit Use as directed . 0 12/16/2021 Active Magnesium 100 MG Oral TabletIndications:bowers pplement Take 1 Tablet by mouth in the morning. Pt states every 3 days. 0 Active Acetaminophen 500 MG Oral Tablet Take 1 Tablet by mouth every 6 hours as needed. 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 Date of Transplant: 09/01/2021 Conditioning Regimen: Fludarabine / Busulfan 2 with post-transplant Cytoxan ABO/Rh: A Positive CMV status: CMV Positive--- GRID: [id number] / DID: [id number] Matched Unrelated 10/24--- DPB1 Match ABO/Rh: A [...] Thrombocytopenia 12/06/2022 Last Assessment & Plan: Platelets 58494 on 03/20 Questionable hematuria Urinary incontinence 09/12/2022 [...] Currently in relapse. Hemoglobin yesterday 8.8. Platelets 05725. - weekly CBC. Transfusion to maintain above hemoglobin of 8 Microalbuminuria due to type 2 diabetes mellitus 10/30/2019 Insulin-requiring or dependent type II diabetes mellitus 07/23/2018 Recurrent major depressive disorder, in partial remission 07/23/2018 Last Assessment & Plan: Stable -continue venlafaxine Coronary artery disease invo lving standing rock coronary artery of standing rock heart without angina pectoris 06/12/2017 Overview: S/P EDIL to LAD on 06/12/17 Last Assessment & Plan: No angina - Continue atorvastatin, isosorbide, metoprolol - no ASA due to thrombocytopenia Dyslipidemia, goal LDL below 70 11/25/2011 Last Assessment & Plan: Patient having no issues. She continues on Lipitor 40 mg daily Last lab I will was that I can find were from [phone] Assessment/plan: Dyslipidemia with patient currently taking Lipitor [...] as of this encounter (statuses as of 09/30/2023) Resolved Problems Problem Noted Date Diagnosed Date [...] as of this encounter (statuses as of 09/30/2023) Immunizations Name Administration Dates Next Due COVID-19 mRNA, LNP-s, No Pre serve, 2-Dose Series (T[place]) 02/05/2021,01/08/2021 COVID-19, LNP-s, No Preserve , Ye-sucrose, Ages 12+ (Pfizer) 12/06/2021 Pneumococcal Conjugate Vacc, 13 Valent (Prevnar) 06/10/2022,10/09/2015 Pneumococcal Polysaccharide PPV23 (Pneumovax) 01/06/2017,03/30/2011 SEASONAL INFLUENZA, PF, 6 M & Above, IM , (FLULAVAL or FLUZONE) 07/23/2018 Seasonal Influenza, Quadriva lent Hd, 65+ [...] Sign Reading Time Taken Comments Blood Pressure 124/74 09/27/2023 11:23 AM EST Pulse 68 09/27/2023 11:23 AM EST Temperature 35.6 C (96 F) 09/27/2023 11:23 AM EST Respiratory Rate 18 09/27/2023 11:23 AM EST Oxygen Saturation 97% 09/27/2023 11:23 AM EST Inhaled Oxygen Concentration - - [...] Progress Notes * Marisa Pacheco RN - 09/27/2023 11:17 AM EST [facility] [employer] Visit Date: 09/27/2023 Time: 11:17 AM Name: Ruth Burger : 1950 Current Concerns: Patient seen for follow up- MDS- H/o stem cell transplant, CAD, DM2, Osteoarthritis Weekly CBC- 09/20- HGB 10.8 Reports doing well. Blood sugars 09/27- 221 09/26- 199, 189,160 09/25- 194, 95, 133 09/24- 200, 121, 202 09/22- 201, 112 Discussion with patient regarding blood sugars- does shopping, Brings home cheesecake, snacks. Encouraged patient to avoid. Voices understanding. VS wnl Lungs clear bilaterally Sob with exertion No LE edema noted Voiding without difficulty- denies UTI symptoms Bowels wnl- per report Appetite good Taking fluids well. Reports mild discomfort in right hip. Encouraged APAP prn Problems/Symptoms: Review of Systems Constitutional: Negative. HENT: Negative. Eyes: Negative. Respiratory: Positive for shortness of breath. Cardiovascular: Negative. Gastrointestinal: Negative. Endocrine: Negative. Genitourinary: Negative. Musculoskeletal: Positive for gait problem. Skin: Negative. Hematological: Negative. Psychiatric/Behavioral: Negative. Physical Exam: BP 124/74 (BP Site: Left Arm, BP Position: Sitting, BP Cuff Size: Regular) | Pulse 68 | Temp 35.6 C (96 F) (Tympanic) | Resp 18 | LMP 10/29/2000 | SpO2 97% Pain 6 Physical Exam Constitutional: Appearance: Normal appearance. Cardiovascular: [...] and Affect: Mood normal. Behavior: Behavior normal. MAHC-10 Completed this Visit: No. No falls since last visit Treatment/Plan: Blood sugars QID Weekly labs- mobile lab NCS diet- follows with [facility] Continue medications as prescribed Keep all upcoming MD appointments Fluids encouraged RN CM follow up in 6 weeks Home Interventions Provided: Reinforced current Plan of Care, including self-management and medication regimen Patient Needs to Remember: Call [facility] with any medical concerns/ red flags Referrals Needed: N/a Follow Up: Is there cellular connectivity/connectivity in the home? No Does the patient have internet in the home? Yes Patient encouraged to call the intake phone number for all urgent but not emergent issues. Scheduled to follow up with patient in 6 weeks. Marisa Mendoza RN 09/27/2023 11:17 AM documented in this encounter Plan of Treatment Upcoming Encounters Date Type Department Care Team (Late st Contact Info) Description 10/02/2023 1:00 PM EST Office Visit Pharmacy, [address] [place] [id number] [place] [address] 10/04/2023 9:00 AM EST Laboratory Lab Mobile Phlebotomy [facility] [address] [place] [address] [facility] Draw [address] [place] [address] 10/11/2023 9:00 AM EST Laboratory Lab Mobile Phlebotomy [facility] [address] [place] [address] [facility] Draw [address] [place] [address] 10/18/2023 9:00 AM EST Laboratory Lab Mobile Phlebotomy [facility] [address] [place] [address] [facility] Home Draw [address] [place] [address] 10/25/2023 9:00 AM EST Laboratory Lab Mobile Phlebotomy [facility] [address] [place] [address] [facility] Home Draw [address] [place] [address] 11/02/2023 2:00 PM EST Immunization/Injectio n Hematology/Oncology Treatment, [place] [address] [place] [address] Nurse, Med [address] [facility] [place] [address] 11/08/2023 2:00 PM EST Home Visit [facility], [facility] [address] [facility] [place] [address] Marisa Pacheco, TANYA [address] [facility] [place] [address] 12/14/2023 2:00 PM EST Nurse Only Ancillary [address] [place] [address] [place], Nurse [address] [place] [address] 12/26/2023 11:15 AM EST Office Visit Hematology/Oncology [facility] [place] [address] [place] [address] Jitendra Aguero MD [address] [place] [address] 01/02/2024 2:20 PM EST Office Visit Family Medicine [address] [place] [phone] Dhruv Moss MD [address] [place] [address] [place] [address] 07/03/2024 1:30 PM EDT Imaging Radiology [address] [place] [address] Scheduled Procedures Name Priority Associated Diagnoses Date/Ti [...] 06/07/2024 06/07/2023, 05/13, 05/08/2023, Additional history exists Mammogram 06/29/2024 06/29/2023, 06/13, 11/30/2020, Additional history exists Albumin/Creatinine Ratio 09/15/202409/15/2 023, 03/08/2022, 10/29/2019, Additional history exists DTaP,Tdap,and [...] this encounter Medical Devices Implanted Type Area Production Support Manager Device Identifier Shelf Expiration Date Model / Serial / Lot Port Pwr Mri Isp Profile - [id number] Implanted:Qty: 1 on 07/24/2020 by Akash Castillo MD at OR [facility] Right: Chest CR BARD : PERIPHERAL VASCULAR 04/12/2021 [id number] / / [id number] documented as of this encounter Advance Directives [...] the patient have Health Care Power of Tree Pruner? No Code Status History Code Status Date Activated Date Inactivated Comments Full Code 07/27/2021 7:04 PM 07/31/2021 5:19 PM This order reflects the patients wishes and were consensually agreed upon. Question Answer Comments Discussion of Advance Directives occurred with: Patient Does the patient have a Living Will? No Does the patient have Health Care Power of Tree Pruner? No Full Code 07/25/2021 12:43 PM 07/25/2021 11:03 PM Thi s order reflects the patients wishes and were consensually agreed upon. Question Answer Comments Discussion of Advance Directives occurred with: Patient/Family Does the patient have a Living Will? No Does the patient have Health Care Power of Tree Pruner? No Full Code 06/12/2017 2:29 PM 06/12/2017 10:37 PM This order reflects the patients wishes and were consensually agreed upon. Question Answer Comments Discussion of Advance Directives occurred with: Not Discussed Does the patient have a Living Will? No Does the patient have Health Care Power of Tree Pruner? No Healthcare Agents on File Name Relationship Healthcare Agent Relationshi p Communication Juanita Silva Adult Child Health Care Agent Care Teams Master Chef Relationship Specialty Start Date End Date Dhruv Moss MD [address] [place] [address] [place] [address] PCP - General Family Medicine 08/27/21 documented as of this encounter
--- OUTSIDE RECORDS SUMMARY | 2024-02-26 04:39 | External Medical Summary ---
Author Name Unknown Address Unknown Organization K01:[facility] [address] [facility] [place] [address] Laboratory Report Ordering Provider Test Date Status ANN MUNGUIA 09/20/2023 08:06:00 Final Observation Date Value Abnormality Reference (Units ) Status SYNC LEUKOCYTES IN BLOOD BY AUTOMATED COUNT 09/20/2023 08:06:00 4.44 4.00-10.80 (K/uL) Final Neutrophils/100 leukocytes in Blood by Manual count 09/20/2023 08:06:00 29.0 Below low normal 40.0-75.0 (%) Final Lymphocytes/100 leukocytes in Blood by Manual count 09/20/2023 08:06:00 54.0 Above high normal 18.0-42.0 (%) Final Monocytes/100 leukocytes in Blood by Manual count 09/20/2023 08:06:00 10.0 1.0-11.0 (%) Final Eosinophils/100 leukocytes in Blood by Manual count 09/20/2023 08:06:00 5.0 0.0-6.0 (%) Final Basophils/100 leukocytes in Blood by Manual count 09/20/2023 08:06:00 1.0 0.0-2.0 (%) Final Metamyelocytes/100 leukocytes in Blood by Manual count 09/20/2023 08:06:00 1.0 Above high normal <=0.0 (%) Final Neutrophils [#/volume] in Blood by Manual count 09/20/2023 08:06:00 1.29 Below low normal 1.80-7.70 (K/uL) Final Lymphocytes [#/volume] in Blood by Manual count 09/20/2023 08:06:00 2.40 1.00-4.80 (K/uL) Final Monocytes [#/volume] in Blood by Manual count 09/20/2023 08:06:00 0.44 0.00-1.10 (K/uL) Final Eosinophils [#/volume] in Blood by Manual count 09/20/2023 08:06:00 0.22 0.00-0.70 (K/uL) Final Basophils [#/volume] in Blood by Manual count 09/20/2023 08:06:00 0.04 0.00-0.20 (K/uL) Final Metamyelocytes [#/volume] in Blood by Manual count 09/20/2023 08:06:00 0.04 Above high normal <=0.00 (K/uL) Final Performing Location LABORATORY [facility] [place] - [address] [facility] [address]
--- OUTSIDE RECORDS SUMMARY | 2024-02-26 04:39 | External Medical Summary ---
Author Name Unknown Address Unknown Organization K0G:[facility]ORY [facility] [address] - [address] [place] [address] Laboratory Report Ordering Provider Test Date Status ANN MUNGUIA 10/04/2023 08:24:00 Final Observation Date Value Abnormality Reference (Units ) Status SYNC LEUKOCYTES IN BLOOD BY AUTOMATED COUNT 10/04/2023 08:24:00 3.80 Below low normal 4.00-10.80 (K/uL) Final Neutrophils/100 leukocytes in Blood by Manual count 10/04/2023 08:24:00 28.0 Below low normal 40.0-75.0 (%) Final Lymphocytes/100 leukocytes in Blood by Manual count 10/04/2023 08:24:00 65.0 Above high normal 18.0-42.0 (%) Final Monocytes/100 leukocytes in Blood by Manual count 10/04/2023 08:24:00 4.0 1.0-11.0 (%) Final Eosinophils/100 leukocytes in Blood by Manual count 10/04/2023 08:24:00 2.0 0.0-6.0 (%) Final Basophils/100 leukocytes in Blood by Manual count 10/04/2023 08:24:00 1.0 0.0-2.0 (%) Final Neutrophils [#/volume] in Blood by Manual count 10/04/2023 08:24:00 1.06 Below low normal 1.80-7.70 (K/uL) Final Lymphocytes [#/volume] in Blood by Manual count 10/04/2023 08:24:00 2.47 1.00-4.80 (K/uL) Final Monocytes [#/volume] in Blood by Manual count 10/04/2023 08:24:00 0.15 0.00-1.10 (K/uL) Final Eosinophils [#/volume] in Blood by Manual count 10/04/2023 08:24:00 0.08 0.00-0.70 (K/uL) Final Basophils [#/volume] in Blood by Manual count 10/04/2023 08:24:00 0.04 0.00-0.20 (K/uL) Final Nucleated erythrocytes/100 leukocytes [Ratio] in Blood by Automated count 10/04/2023 08:24:00 Final Variant lymphocytes [Presence] in Blood by Light microscopy 10/04/2023 08:24:00 Present Abnormal None Seen Final [facility] - [address] [place] [address]
--- OUTSIDE RECORDS SUMMARY | 2024-02-26 04:39 | External Medical Summary ---
Author Name Unknown Address Unknown [facility] - [address] [place] [address] Laboratory Report Ordering Provider Test Date Status ANN MUNGUIA 10/04/2023 08:24:00 Final Observation Date Value Abnormality Reference (Units ) Status WBC, Total 10/04/2023 08:24:00 3.80 Below low normal 4.00-10.80 (K/uL) Final RBC 10/04/2023 08:24:00 2.49 3.85-5.15 (M/uL) Final Hemoglobin 10/04/2023 08:24:00 10.1 Below low normal 12.0-15.3 (g/dL) Final HCT 10/04/2023 08:24:00 29.7 Below low normal 36.0-45.2 (%) Final MCV 10/04/2023 08:24:00 119.3 81.5-97.5 (fL) Final MCH 10/04/2023 08:24:00 40.6 27.0-34.0 (pg) Final MCHC 10/04/2023 08:24:00 34.0 32.0-36.0 (g/dL) Final RDW 10/04/2023 08:24:00 12.9 11.5-15.5 (%) Final Platelets 10/04/2023 08:24:00 15 Below lower panic limits 140-400 (K/uL) Final MPV 10/04/2023 08:24:00 10.8 6.6-11.1 (fL) Final Performing Location [facility] - [address] [place] [address]
--- OUTSIDE RECORDS SUMMARY | 2024-02-26 04:39 | External Medical Summary | Summary of Care ---
Author Name Unknown Organization [facility] Address [address] [facility] [place] [address] Phone [phone] Care Team Providers Care Patient Biller Name Role Phone Dhruv Moss MD Primary Care Provide r Reason for Visit * Reason Comments Dosage Adjustment In Person (Anticoag Cl inic) Diabetes Follow-Up Encounter Details Date Type Department Care Team (Late st Contact Info) Description 10/02/2023 1:00 PM EST Office Visit Pharmacy, [address] [place] [address] [place] [address] Type 2 diabetes mellitus with hemoglobin A1c goal of less than 8.0% ([facility])* Allergies No known active allergiesdocumented as of this encounter (statuses as of 10/02/2023) Medications Medication Sig Dispensed Refills Start Date [...] Tablet (Compazine)Indicatio ns:H/O allogeneic bone marrow transplant ([facility]) Take by mouth 1 Tablet every 6 hours as needed for Nausea. 60 Tablet 3 12/09/2021 Active [employer] Delica Lancets 30GIndications:Type 2 diabetes mellitus with hemoglobin A1c goal of less than 8.0% ([facility]) Use to test blood sugar three times a day DXe11.9 300 Each 3 12/16/2021 Active BiosceptreTouch Verio In Vitro Strip (Glucose Blood)Indications:Ty pe 2 diabetes mellitus with hemoglobin A1c goal of less than 8.0% ([facility]) Use to test blood sugar three times a day DXe11.9 300 Strip 3 12/16/2021 Active BiosceptreTouch Verio Flex System w/Device Kit Use as directed . 0 12/16/2021 Active Magnesium 100 MG Oral TabletIndications:bowers pplement Take 1 Tablet by mouth in the morning. Pt states every 3 days. 0 Active Acetaminophen 500 MG Oral Tablet Take 1 Tablet by mouth every 6 hours as needed. 0 Active Nystatin 670067 UNIT/GM External Cream Apply topically to affected [...] 24 Hour (Imdur)Indications:C oronary artery disease involving united auburn coronary artery of united auburn heart without angina pectoris,HTN, goal below 140/90 [...] hemoglobin A1c goal of less than 8.0% ([facility]) Inject 18 Units under the skin at bedtime. 30 mL 3 07/12/2023 Active NovoLIN R 100 UNIT/ML Injection Solution (insulin REGULAR human)Indications:Ty pe 2 diabetes mellitus with hemoglobin A1c goal of less than 8.0% ([facility]) Inject 8 units with breakfast, 4 units with lunch, and 6 units with dinner + sliding scale of 1 units per every 20 over 140 MAX DAILY DOSE 50 units 50 mL 5 07/25/2023 Active Levemir 100 UNIT/ML Subcutaneous Solution (insulin Detemir)Indications: Type 2 diabetes mellitus with hemoglobin A1c goal of less than 8.0% ([facility]) Inject 18 Units under the skin at [...] syndrome), high grade (HCC),Stem cells transplant status ([facility]),Acquired hypothyroidism 1000 mL IV DAILY PRN 12/08/2021 Active bevaCIZumab (Avastin) inj 1.25 mgIndications: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 Date of Transplant: 09/01/2021 Conditioning Regimen: Fludarabine / Busulfan 2 with post-transplant Cytoxan ABO/Rh: A Positive CMV status: CMV Positive--- GRID: [id number] / DID: [id number] Matched Unrelated 10/24--- DPB1 Match ABO/Rh: A [...] Thrombocytopenia 12/06/2022 Last Assessment & Plan: Platelets 01688 on 03/20 Questionable hematuria Urinary incontinence 09/12/2022 [...] Currently in relapse. Hemoglobin yesterday 8.8. Platelets 34703. - weekly CBC. Transfusion to maintain above hemoglobin of 8 Microalbuminuria due to type 2 diabetes mellitus 10/30/2019 Insulin-requiring or dependent type II diabetes mellitus 07/23/2018 Recurrent major depressive disorder, in partial remission 07/23/2018 Last Assessment & Plan: Stable -continue venlafaxine Coronary artery disease invo lving united auburn coronary artery of united auburn heart without angina pectoris 06/12/2017 Overview: S/P EDIL to LAD on 06/12/17 Last Assessment & Plan: No angina - Continue atorvastatin, isosorbide, metoprolol - no ASA due to thrombocytopenia Dyslipidemia, goal LDL below 70 11/25/2011 Last Assessment & Plan: Patient having no issues. She continues on Lipitor 40 mg daily Last lab I will was that I can find were from [phone] Assessment/plan: Dyslipidemia with patient currently taking Lipitor [...] as of this encounter (statuses as of 10/02/2023) Resolved Problems Problem Noted Date Diagnosed Date [...] as of this encounter (statuses as of 10/02/2023) Immunizations Name Administration Dates Next Due COVID-19 mRNA, LNP-s, No Pre serve, 2-Dose Series (Pfizer) 02/05/2021,01/08/2021 COVID-19, LNP-s, No Preserve , Ey-sucrose, [...] Progress Notes * Makenzie Pool, [facility] - 10/02/2023 12:55 PM EST Images from the original note were not included. Medication Therapy Disease Management [facility] - Diabetes Management Progress Note uRth Burger, identified by name and date of , is a 72 year old female being seen for diabetes [...] 04/28/23 Medication Injection Site: Abdomen Lifestyle: Diet: unchanged Glucose Review/SMBG: Readings obtained [...] indicated BP Readings from Last 3 Encounters: 09/27/23 124/74 08/28/23 120/58 08/24/23 156/72 Blood pressure at goal: yes HYPERLIPIDEMIA: Patient is taking moderate or high intensity statin: yes HEALTH MAINTENANCE REVIEW: Health Maintenance Due Topic Date Due Hepatitis B (1 of 3 - Risk 3-dose series) Never done HbA1c 06/05/2023 Influenza Vaccine (FLU shot) (1) 07/14/2023 COVID-19 Vaccine ( season) 2023 ASSESSMENT & PLAN: ICD-10-CM 1. Type 2 diabetes mellitus with hemoglobin A1c goal of less than 8.0% (HCC) E11.9 Considerations: Cost: Approved for PACE 07/2023 Medication: H/o MARTHA to Lantus, unspecified; Eye pain with Xultophy A1c may not be accurate given frequent transfusions Libre2 through [facility] [phone] Daughter, JONES Frey nurse BG Readings - Blood sugars reviewed. Overall average has shown improvement, however patient still showing significant rises/variability throughout the day. Attributes to diet. Medications - Reviewed current regimen, patient is adherent to regimen. Discussed the need to transition from Levemir --> Lantus in future due to discontinuation of Levemir. Additionally, can looktowards transitioning from vials --> pens at this time as well. Patient reports several vials left of both insulins in current supply. She is agreeable to contact clinic when she gets low and we will then proceed with transition. Diet, Exercise, Lifestyle - No significant lifestyle changes since last visit. Patient reports still struggling with snacking. Feels this relates to depression/mood. Discussed breaking the cycle as if her BG readings improve, she will feel better. Agreeable to focus on this and reserving pies/ice creams/cakes to be enjoyed in moderation as opposed to daily. Patient expressed understanding. Patient is agreeable to SMBG daily with Cgm (Freestyle Jojo) Patient aware to contact clinic if [...] 04/28/23 HEALTH MAINTENANCE INTERVENTIONS: Deferred d/t time constraints FOLLOW UP: Return to clinic in 7 weeks 11/20/2023 Makenzie Pool RPh Clinical Pharmacist - Milk Sampler Medication Therapy Management Clinic 10/02/2023, 12:55 PM documented in this encounter Plan of Treatment Upcoming Encounters Date Type Department Care Team (Late st Contact Info) Description 10/04/2023 9:00 AM EST Laboratory Lab Mobile Phlebotomy [facility] [address] [place] [address] [facility] Mobile Home Draw [address] [place] [address] 10/11/2023 9:00 AM EST Laboratory Lab Mobile Phlebotomy [facility] [address] [place] [address] [facility] Mobile Home Draw [address] [place] [address] 10/18/2023 9:00 AM EST Laboratory Lab Mobile Phlebotomy [facility] [address] [place] [address] [facility] Mobile [facility] Draw [address] [place] [address] 10/25/2023 9:00 AM EST Laboratory Lab Mobile Phlebotomy [facility] [address] [place] [address] [facility] Mobile Home Draw [address] [place] [address] 11/02/2023 2:00 PM EST Immunization/Injectio n Hematology/Oncology Treatment, [place] [address] [place] [address] Nurse, Med [address] [facility] [address] 11/08/2023 2:00 PM EST [facility] [address] Marisa Pacheco, TANYA [address] [place] [address] 11/20/2023 1:00 PM EST Office Visit Pharmacy, [address] [place] [address] [place] [address] 12/14/2023 2:00 PM EST Nurse Only Ancillary [address] [place] [address] [place], Nurse [address] [place] [address] 12/26/2023 11:15 AM EST Office Visit Hematology/Oncology [employer] [address] [place] [address] Jitendra Aguero MD [address] [place] [address] 01/02/2024 2:20 PM EST Office Visit Family Medicine [address] [place] [address] Dhruv Moss MD [address] [place] [address] [place] [address] 07/03/2024 1:30 PM EDT Imaging Radiology [address] [place] [address] Scheduled Procedures Name Priority Associated Diagnoses Date/Ti [...] 06/13, 11/30/2020, Additional history exists Albumin/Creatinine Ratio 09/15/2024 023, [...] this encounter Medical Devices Implanted Type Area Pelt Inspector Device Identifier Shelf Expiration Date Model / Serial / Lot Port Pwr Mri Isp Profile - [id number] Implanted:Qty: 1 on 07/24/2020 by Akash Castillo MD at OR [facility] Right: Chest CR BARD : PERIPHERAL VASCULAR 04/12/2021 [id number] / / [id number] documented as of this encounter Visit Diagnoses Diagnosis Type 2 diabetes mellitus with hemoglobin A1c goal of less than 8.0% ([facility])- Primary documented in this encounter Advance Directives [...] the patient have Health Care Power of Marine Steam Fitter Helper? No Code Status History Code Status Date Activated Date Inactivated Comments Full Code 07/27/2021 7:04 PM 07/31/2021 5:19 PM This order reflects the patients wishes and were consensually agreed upon. Question Answer Comments Discussion of Advance Directives occurred with: Patient Does the patient have a Living Will? No Does the patient have Health Care Power of Marine Steam Fitter Helper? No Full Code 07/25/2021 12:43 PM 07/25/2021 11:03 PM Thi s order reflects the patients wishes and were consensually agreed upon. Question Answer Comments Discussion of Advance Directives occurred with: Patient/Family Does the patient have a Living Will? No Does the patient have Health Care Power of Marine Steam Fitter Helper? No Full Code 06/12/2017 2:29 PM 06/12/2017 10:37 PM This order reflects the patients wishes and were consensually agreed upon. Question Answer Comments Discussion of Advance Directives occurred with: Not Discussed Does the patient have a Living Will? No Does the patient have Health Care Power of Marine Steam Fitter Helper? No Healthcare Agents on File Name Relationship Healthcare Agent [facility] Communication [facility] Adult Child Health Care Agent Care Teams Patient Biller Relationship Specialty Start Date End Date Dhruv Moss MD [address] [place] [address] [place] [address] PCP - General Family Medicine 08/27/21 documented as of this encounter
--- OUTSIDE RECORDS SUMMARY | 2024-02-26 04:39 | External Medical Summary | Summary of Care ---
Author Name Unknown Organization [facility] Address [address] [place] [address] Phone [phone] Care Team Providers Care Grill Attendant Name Role Phone Dhruv Moss MD Primary Care Provide r Reason for Visit * Reason Comments Procedure Port flush Encounter Details Date Type Department Care Team (Late st Contact Info) Description 09/21/2023 2:00 PM EST Immunization/I njection Hematology/Oncology Treatment, [place] [address] [place] [address] Nurse, Med [address] [place] [address] MDS (myelodysplastic syndrome), high grade (HCC)*; Hypomagnesemia; H/O allogeneic bone marrow transplant (HCC); Dehydration Allergies No known active allergiesdocumented as of this encounter (statuses as of 09/21/2023) Medications Medication Sig Dispensed Refills Start Date End Date Status Cholecalciferol (VITAMIN D3) 5000 UNITS TabletIndications:bowers pplement Take 1 Tablet by mouth in the morning. 0 05/14/2015 Active BD Pen Needle Mini U/F 31G X 5 MM (Insulin Pen Needle)Indications:T ype 2 diabetes mellitus with hemoglobin A1c goal of less than 8.0% ([facility]) Use with xultophy once a day dx [...] for Nausea. 60 Tablet 3 12/09/2021 Active [employer] Delica Lancets 30GIndications:Type 2 diabetes mellitus with hemoglobin A1c goal of less than 8.0% ([facility]) Use to test blood sugar three times a day DXe11.9 300 Each 3 12/16/2021 Active AgitarTouch Verio In Vitro Strip (Glucose Blood)Indications:Ty pe 2 diabetes mellitus with hemoglobin A1c goal of less than 8.0% ([facility]) Use to test blood sugar three times a day DXe11.9 300 Strip 3 12/16/2021 Active [employer] Verio Flex System w/Device Kit Use as directed . 0 12/16/2021 Active Magnesium 100 MG Oral TabletIndications:bowers pplement Take 1 Tablet by mouth in the morning. Pt states every 3 days. 0 Active Acetaminophen 500 MG Oral Tablet Take 1 Tablet by mouth every 6 hours as needed. 0 Active Nystatin 401024 UNIT/GM External Cream Apply topically to affected [...] 24 Hour (Imdur)Indications:C oronary artery disease involving blackfeet coronary artery of blackfeet heart without angina pectoris,HTN, goal below 140/90 [...] hemoglobin A1c goal of less than 8.0% ([facility]) Inject 18 Units under the skin at bedtime. 30 mL 3 07/12/2023 Active NovoLIN R 100 UNIT/ML Injection Solution (insulin REGULAR human)Indications:Ty pe 2 diabetes mellitus with hemoglobin A1c goal of less than 8.0% ([facility]) Inject 8 units with breakfast, 4 units with lunch, and 6 units with dinner + sliding scale of 1 units per every 20 over 140 MAX DAILY DOSE 50 units 50 mL 5 07/25/2023 Active Levemir 100 UNIT/ML Subcutaneous Solution (insulin Detemir)Indications: Type 2 diabetes mellitus with hemoglobin A1c goal of less than 8.0% ([facility]) Inject 18 Units under the skin at [...] syndrome), high grade (HCC),Stem cells transplant status ([facility]),Acquired hypothyroidism 1000 mL IV DAILY PRN 12/08/2021 Active bevaCIZumab (Avastin) inj 1.25 mgIndications: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, unspecified whether local company intermodal truck driver insulin use ([facility]) 1.25 mg IZ PRN 05/12/2023 05/11/2024 Active ROPivacaine (Naropin) inj 1.5 mgIndications: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 Date of Transplant: 09/01/2021 Conditioning Regimen: Fludarabine / Busulfan 2 with post-transplant Cytoxan ABO/Rh: A Positive CMV status: CMV Positive--- GRID: [id number] / DID: [id number] Matched Unrelated 10/24--- DPB1 Match ABO/Rh: A [...] Thrombocytopenia 12/06/2022 Last Assessment & Plan: Platelets 07457 on 03/20 Questionable hematuria Urinary incontinence 09/12/2022 [...] Currently in relapse. Hemoglobin yesterday 8.8. Platelets 73736. - weekly CBC. Transfusion to maintain above hemoglobin of 8 Microalbuminuria due to type 2 diabetes mellitus 10/30/2019 Insulin-requiring or dependent type II diabetes mellitus 07/23/2018 Recurrent major depressive disorder, in partial remission 07/23/2018 Last Assessment & Plan: Stable -continue venlafaxine Coronary artery disease invo lving blackfeet coronary artery of blackfeet heart without angina pectoris 06/12/2017 Overview: S/P EDIL to LAD on 06/12/17 Last Assessment & Plan: No angina - Continue atorvastatin, isosorbide, metoprolol - no ASA due to thrombocytopenia Dyslipidemia, goal LDL below 70 11/25/2011 Last Assessment & Plan: Patient having no issues. She continues on Lipitor 40 mg daily Last lab I will was that I can find were from [phone] Assessment/plan: Dyslipidemia with patient currently taking Lipitor [...] as of this encounter (statuses as of 09/21/2023) Resolved Problems Problem Noted Date Diagnosed Date [...] as of this encounter (statuses as of 09/21/2023) Immunizations Name Administration Dates Next Due COVID-19 [...] or making decisions? (5 years old or older No 08/27/2021 documented as of this encounter Nursing Notes * Emma Olivo, RN - 09/21/2023 4:37 PM EST Chair 2. VAD (Venous Access Device) accessed with #20G 3/" without difficulty. VAD flushed with 10 ml NSS and Heparin 5 ml (100 units/ml). Kincaid needle removed intact. documented in this encounter Plan of Treatment Upcoming Encounters Date Type Department Care Team (Late st Contact Info) Description 09/27/2023 9:00 AM EST Laboratory Lab Mobile Phlebotomy [facility] [address] [place] [facility] [place] [facility] [place] [address] [facility] [place] Draw [address] [place] [address] 09/27/2023 11:30 AM EST Home [facility] [address] [facility] [place] [address] Marisa Pacheco RN [address] [facility] [place] [address] 10/02/2023 1:00 PM EST Office Visit Pharmacy, [address] [place] [address] [place] [address] 10/04/2023 9:00 AM EST Laboratory Lab Mobile Phlebotomy [facility] [address] [place] [address] [facility] Mobile Home Draw [address] [facility] [place] [address] 10/11/2023 9:00 AM EST Laboratory Lab Mobile Phlebotomy [facility] [address] [place] [facility] [place] [address] [facility] Mobile Home Draw [address] [facility] [place] [address] 10/18/2023 9:00 AM EST Laboratory Lab Mobile Phlebotomy [facility] [address] [place] [address] [facility] Mobile Home Draw [address] [place] [address] 10/25/2023 9:00 AM EST Laboratory Lab Mobile Phlebotomy [facility] [address] [place] [address] [facility] Mobile Home Draw [address] [place] [address] 11/02/2023 2:00 PM EST Immunization/Injectio n Hematology/Oncology Treatment, [place] [address] [facility] [place] [address] Nurse, Med 200 [facility] [place] [address] 12/14/2023 2:00 PM EST Nurse Only Ancillary [address] [place] [address] [place], Nurse [address] [place] [address] 12/26/2023 11:15 AM EST Office Visit Hematology/Oncology [facility] [address] [place] [address] Jitendra Aguero MD [facility] [address] 01/02/2024 2:20 PM EST Office Visit [address] Medicine [address] [phone] Dhruv Moss MD [address] [place] [address] [place] [address] 07/03/2024 1:30 PM EDT Imaging Radiology [address] [place] [address] Scheduled Procedures Name Priority Associated Diagnoses Date/Ti [...] 06/13/2030 06/13/2023, 03/16/2015 Zoster Vaccines Completed 10/30/2020, 09/02/2020, 07/13/2020, Additional history exists Pneumococcal Vaccine: 65+ Years Completed 06/10/2022, 01/06/2017, 10/09/2015, Additional history exists GARDASIL-HPV IMMUNIZATION SERIES Aged Out No longer eligible based on patient's age to complete this topic MENINGOCOCCAL (MENACTRA/MENVEO) Aged Out No longer eligible based on patient's age to complete this topic documented as of this encounter Medical Devices Implanted Type Area Word Processing Operator Device Identifier Shelf Expiration Date Model / Serial / Lot Port Pwr Mri Isp Profile - [id number] Implanted:Qty: 1 on 07/24/2020 by Akash Castillo MD at OR [facility] Right: Chest CR BARD : PERIPHERAL VASCULAR 04/12/2021 [id number] / / [id number] documented as of this encounter Visit Diagnoses [...] PRN Other, IV Flush, Starting on Juanita 09/21/23 at 1411, Until 09/22/23 at 1410, For 24 hours, Do not flush if lock, PICC, or central line not in place; IV infusing or unable to flush. Given 09/21/2023 2:20 PM EST 500 Units sodium chloride 0.9 % flush central line 10 mL 10 mL, IV Push, PRN Other, IV Flush, Starting on Juanita 09/21/23 at 1411, Until 09/22/23 at 1410, For 24 hours, Do not flush if lock, PICC, or central line not in place; IV infusing or unable to flush. Given 09/21/2023 2:20 PM EST 10 mL documented in this [...] the patient have Health Care Power of Medical Malpractice Paralegal? No Code Status History Code Status Date Activated Date Inactivated Comments Full Code 07/27/2021 7:04 PM 07/31/2021 5:19 PM This order reflects the patients wishes and were consensually agreed upon. Question Answer Comments Discussion of Advance Directives occurred with: Patient Does the patient have a Living Will? No Does the patient have Health Care Power of Medical Malpractice Paralegal? No Full Code 07/25/2021 12:43 PM 07/25/2021 11:03 PM Thi s order reflects the patients wishes and were consensually agreed upon. Question Answer Comments Discussion of Advance Directives occurred with: Patient/Family Does the patient have a Living Will? No Does the patient have Health Care Power of Medical Malpractice Paralegal? No Full Code 06/12/2017 2:29 PM 06/12/2017 10:37 PM This order reflects the patients wishes and were consensually agreed upon. Question Answer Comments Discussion of Advance Directives occurred with: Not Discussed Does the patient have a Living Will? No Does the patient have Health Care Power of Medical Malpractice Paralegal? No Healthcare Agents on File Name Relationship Healthcare Agent [facility] Communication Juanita Silva Adult Child Health Care Agent Care Teams Grill Attendant Relationship Specialty Start Date End Date Dhruv Moss MD [address] [place] [address] [place] [address] PCP - General Family Medicine 08/27/21 documented as of this encounter
--- OUTSIDE RECORDS SUMMARY | 2024-02-26 04:39 | External Medical Summary | Summary of Care ---
Author Name Unknown Organization [facility] Address [address] [place] [address] Phone [phone] Care Team Providers Care Merchandising Intern Name Role Phone Dhruv Moss MD Primary Care Provide r Reason for Visit * Reason Onset Date Comments Test Results Lab 10/19/2023 Encounter Details Date Type Department Care Team (Late st Contact Info) Description 10/19/2023 Telephone Hematology/Oncology Treatment, [place] [address] [place] [address] Jitendra Aguero MD [address] [place] [address] Test Results Lab Allergies No known active allergiesdocumented as of this encounter (statuses as of 10/19/2023) Medications Medication Sig Dispensed Refills Start Date End Date Status Cholecalciferol (VITAMIN D3) 5000 UNITS TabletIndications:bowers pplement Take 1 Tablet by mouth in the morning. 0 05/14/2015 Active BD Pen Needle Mini U/F 31G X 5 MM (Insulin Pen Needle)Indications:T ype 2 diabetes mellitus with hemoglobin A1c goal of less than 8.0% ([facility]) Use with xultophy once a [...] for Nausea. 60 Tablet 3 12/09/2021 Active Lore Delica Lancets 30GIndications:Type 2 diabetes mellitus with hemoglobin A1c goal of less than 8.0% ([facility]) Use to test blood sugar three times a day DXe11.9 300 Each 3 12/16/2021 Active WSI OnlinebizTouch Verio In Vitro Strip (Glucose Blood)Indications:Ty pe 2 diabetes mellitus with hemoglobin A1c goal of less than 8.0% ([facility]) Use to test blood sugar three times a day DXe11.9 300 Strip 3 12/16/2021 Active WSI OnlinebizTouch Verio Flex System w/Device Kit Use as directed . 0 12/16/2021 Active Magnesium 100 MG Oral TabletIndications:bowers pplement Take 1 Tablet by mouth in the morning. Pt states every 3 days. 0 Active Acetaminophen 500 MG Oral Tablet Take 1 Tablet by mouth every 6 hours as needed. 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 Date of Transplant: 09/01/2021 Conditioning Regimen: Fludarabine / Busulfan 2 with post-transplant Cytoxan ABO/Rh: A Positive CMV status: CMV Positive--- GRID: [id number] / DID: [id number] Matched Unrelated 10/24--- DPB1 Match ABO/Rh: A [...] Thrombocytopenia 12/06/2022 Last Assessment & Plan: Platelets 78072 on 03/20 Questionable hematuria Urinary incontinence 09/12/2022 [...] Currently in relapse. Hemoglobin yesterday 8.8. Platelets 03289. - weekly CBC. Transfusion to maintain above hemoglobin of 8 Microalbuminuria due to type 2 diabetes mellitus 10/30/2019 Insulin-requiring or dependent type II diabetes mellitus 07/23/2018 Recurrent major depressive disorder, in partial remission 07/23/2018 Last Assessment & Plan: Stable -continue venlafaxine Coronary artery disease invo lving [place] coronary artery of [place] heart without angina pectoris 06/12/2017 Overview: S/P EDIL to LAD on 06/12/17 Last Assessment & Plan: No angina - Continue atorvastatin, isosorbide, metoprolol - no ASA due to thrombocytopenia Dyslipidemia, goal LDL below 70 11/25/2011 Last Assessment & Plan: Patient having no issues. She continues on Lipitor 40 mg daily Last lab I will was that I can find were from [id number] Assessment/plan: Dyslipidemia with patient currently taking Lipitor [...] as of this encounter (statuses as of 10/19/2023) Resolved Problems Problem Noted Date Diagnosed Date [...] as of this encounter (statuses as of 10/19/2023) Immunizations Name Administration Dates Next Due COVID-19 [...] Telephone Encounter - Winsome Chang RN - 10/19/2023 11:[address] Aguero: "Blood workup done on 10/18/2023: -WBC 4000, H&H of 9.6, Platelet count 12076. No need for blood or Platelet transfusion at this time Repeat CBCD in 1 week. " Called patient who verbalized understanding. documented in this encounter Plan of Treatment Upcoming Encounters Date Type Department Care Team (Late st Contact Info) Description 10/25/2023 9:00 AM EST Laboratory Lab [place] [facility] [address] [place] [address] [facility], [facility] Mobile Home Draw [address] [place] [address] 10/27/2023 1:00 PM EST Home Visit [facility] [place], [facility] [address] [place] [address] Tremaine Morgan PA-C [address] [place] [address] 11/02/2023 2:00 PM EST Immunization/Injectio n Hematology/Oncology Treatment, [place] [address] [place] [address] Nurse, Med 4 [address] [facility] [address] 11/08/2023 2:00 PM EST Home Visit [facility] [place], [facility] [address] [place] [address] Marisa Pacheco RN [address] [place] [address] 11/20/2023 1:00 PM EST Office Visit Pharmacy, [address] [place] [address] [place] [address] 12/14/2023 2:00 PM EST Nurse Only Ancillary [address] [place] [address] [place], Nurse Annual [address] [place] [address] 12/26/2023 11:15 AM EST Office Visit Hematology/Oncology [facility] 200 [facility] [place] [address] Jitendra Aguero MD [address] [place] [address] 01/02/2024 2:20 PM EST Office Visit Family Medicine [address] [place] [phone] Dhruv Moss MD [address] [place] [address] [place] [address] 07/03/2024 1:30 PM EDT Imaging Radiology [address] [place] [address] Scheduled Procedures Name Priority Associated Diagnoses Date/Ti [...] this encounter Medical Devices Implanted Type Area Medical Office Supervisor Device Identifier Shelf Expiration Date Model / Serial / Lot Port Pwr Mri Isp Profile - [id number] Implanted:Qty: 1 on 07/24/2020 by Akash Castillo MD at OR [facility] Right: Chest CR BARD : PERIPHERAL VASCULAR 04/12/2021 [id number] / / [id number] documented as of this encounter Advance Directives [...] patient have Health Care Power of Medical Dosimetrist? No Code Status History Code Status Date Activated Date Inactivated Comments Full Code 07/27/2021 7:04 PM 07/31/2021 5:19 PM This order reflects the patients wishes and were consensually agreed upon. Question Answer Comments Discussion of Advance Directives occurred with: Patient Does the patient have a Living Will? No Does the patient have Health Care Power of Medical Dosimetrist? No Full Code 07/25/2021 12:43 PM 07/25/2021 11:03 PM Thi s order reflects the patients wishes and were consensually agreed upon. Question Answer Comments Discussion of Advance Directives occurred with: Patient/Family Does the patient have a Living Will? No Does the patient have Health Care Power of Medical Dosimetrist? No Full Code 06/12/2017 2:29 PM 06/12/2017 10:37 PM This order reflects the patients wishes and were consensually agreed upon. Question Answer Comments Discussion of Advance Directives occurred with: Not Discussed Does the patient have a Living Will? No Does the patient have Health Care Power of Medical Dosimetrist? No Healthcare Agents on File Name Relationship Healthcare Agent [facility] p Communication Juanita Ricardo Adult Child Health Care Agent Care Teams Merchandising Intern Relationship Specialty Start Date End Date Dhruv Moss MD [address] [place], [place] [address] [address] PCP - General Family Medicine 08/27/21 documented as of this encounter
--- OUTSIDE RECORDS SUMMARY | 2024-02-26 04:39 | External Medical Summary ---
Author Name Unknown Address Unknown Organization [facility] [address] [place] [address] Laboratory Report Ordering Provider Test Date Status ANN MUNGUIA 10/18/2023 08:51:00 Final Observation Date Value Abnormality Reference (Units ) Status WBC, Total 10/18/2023 08:51:00 4.09 4.00-10.80 (K/uL) Final RBC 10/18/2023 08:51:00 2.33 3.85-5.15 (M/uL) Final Hemoglobin 10/18/2023 08:51:00 9.6 Below low normal 12.0-15.3 (g/dL) Final HCT 10/18/2023 08:51:00 27.9 Below low normal 36.0-45.2 (%) Final MCV 10/18/2023 08:51:00 119.7 81.5-97.5 (fL) Final MCH 10/18/2023 08:51:00 41.2 27.0-34.0 (pg) Final MCHC 10/18/2023 08:51:00 34.4 32.0-36.0 (g/dL) Final RDW 10/18/2023 08:51:00 13.2 11.5-15.5 (%) Final Platelets 10/18/2023 08:51:00 14 Below lower panic limits 140-400 (K/uL) Final MPV 10/18/2023 08:51:00 9.6 6.6-11.1 (fL) Final Performing Location [facility]ORY [facility] [address] [place] [address]
--- OUTSIDE RECORDS SUMMARY | 2024-02-26 04:39 | External Medical Summary ---
Author Name Unknown Address Unknown Organization K0G:[facility] [address] [place] [address] Laboratory Report Ordering Provider Test Date Status ANN MUNGUIA 10/11/2023 08:20:00 Final Observation Date Value Abnormality Reference (Units ) Status SYNC LEUKOCYTES IN BLOOD BY AUTOMATED COUNT 10/11/2023 08:20:00 4.14 4.00-10.80 (K/uL) Final Neutrophils/100 leukocytes in Blood by Manual count 10/11/2023 08:20:00 20.0 Below low normal 40.0-75.0 (%) Final Lymphocytes/100 leukocytes in Blood by Manual count 10/11/2023 08:20:00 69.0 Above high normal 18.0-42.0 (%) Final Monocytes/100 leukocytes in Blood by Manual count 10/11/2023 08:20:00 7.0 1.0-11.0 (%) Final Eosinophils/100 leukocytes in Blood by Manual count 10/11/2023 08:20:00 3.0 0.0-6.0 (%) Final Basophils/100 leukocytes in Blood by Manual count 10/11/2023 08:20:00 1.0 0.0-2.0 (%) Final Neutrophils [#/volume] in Blood by Manual count 10/11/2023 08:20:00 0.83 Below low normal 1.80-7.70 (K/uL) Final Lymphocytes [#/volume] in Blood by Manual count 10/11/2023 08:20:00 2.86 1.00-4.80 (K/uL) Final Monocytes [#/volume] in Blood by Manual count 10/11/2023 08:20:00 0.29 0.00-1.10 (K/uL) Final Eosinophils [#/volume] in Blood by Manual count 10/11/2023 08:20:00 0.12 0.00-0.70 (K/uL) Final Basophils [#/volume] in Blood by Manual count 10/11/2023 08:20:00 0.04 0.00-0.20 (K/uL) Final Nucleated erythrocytes/100 leukocytes [Ratio] in Blood by Automated count 10/11/2023 08:20:00 Final Variant lymphocytes [Presence] in Blood by Light microscopy 10/11/2023 08:20:00 Present Abnormal None Seen Final Performing Location LABORATORY [facility] [address] [place] [address]
--- OUTSIDE RECORDS SUMMARY | 2024-02-26 04:39 | External Medical Summary | Summary of Care ---
Author Name Unknown Organization [facility] Address [address] [place] [address] Phone [phone] Care Team Providers Care Blueprinting Machine Operator Name Role Phone Dhruv Moss MD Primary Care Provide r Reason for Visit * Reason Onset Date Comments Test Results Lab 10/12/2023 Encounter Details Date Type Department Care Team (Late st Contact Info) Description 10/12/2023 Telephone Hematology/Oncology Treatment, [place] [address] [place] [address] Jitendra Aguero MD [address] [place] [address] Test Results Lab Allergies No known active allergiesdocumented as of this encounter (statuses as of 10/12/2023) Medications Medication Sig Dispensed Refills Start Date End Date Status Cholecalciferol (VITAMIN D3) 5000 UNITS TabletIndications:bowers pplement Take 1 Tablet by mouth in the morning. 0 05/14/2015 Active BD Pen Needle Mini U/F 31G X 5 MM (Insulin Pen Needle)Indications:T ype 2 diabetes mellitus with hemoglobin A1c goal of less than 8.0% ([facility]) Use with xultophy once a [...] for Nausea. 60 Tablet 3 12/09/2021 Active BeInSync Delica Lancets 30GIndications:Type 2 diabetes mellitus with hemoglobin A1c goal of less than 8.0% ([facility]) Use to test blood sugar three times a day DXe11.9 300 Each 3 12/16/2021 Active AppTankTouch Verio In Vitro Strip (Glucose Blood)Indications:Ty pe 2 diabetes mellitus with hemoglobin A1c goal of less than 8.0% ([facility]) Use to test blood sugar three times a day DXe11.9 300 Strip 3 12/16/2021 Active AppTankTouch Verio Flex System w/Device Kit Use as directed . 0 12/16/2021 Active Magnesium 100 MG Oral TabletIndications:bowers pplement Take 1 Tablet by mouth in the morning. Pt states every 3 days. 0 Active Acetaminophen 500 MG Oral Tablet Take 1 Tablet by mouth every 6 hours as needed. 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 Date of Transplant: 09/01/2021 Conditioning Regimen: Fludarabine / Busulfan 2 with post-transplant Cytoxan ABO/Rh: A Positive CMV status: CMV Positive--- GRID: [id number] / DID: [id number] Matched Unrelated 10/24--- DPB1 Match ABO/Rh: A [...] Thrombocytopenia 12/06/2022 Last Assessment & Plan: Platelets 43793 on 03/20 Questionable hematuria Urinary incontinence 09/12/2022 [...] Currently in relapse. Hemoglobin yesterday 8.8. Platelets 96813. - weekly CBC. Transfusion to maintain above hemoglobin of 8 Microalbuminuria due to type 2 diabetes mellitus 10/30/2019 Insulin-requiring or dependent type II diabetes mellitus 07/23/2018 Recurrent major depressive disorder, in partial remission 07/23/2018 Last Assessment & Plan: Stable -continue venlafaxine Coronary artery disease invo lving [place] coronary artery of [place] heart without angina pectoris 06/12/2017 Overview: S/P EDIL to LAD on 06/12/17 Last Assessment & Plan: No angina - Continue atorvastatin, isosorbide, metoprolol - no ASA due to thrombocytopenia Dyslipidemia, goal LDL below 70 11/25/2011 Last Assessment & Plan: Patient having no issues. She continues on Lipitor 40 mg daily Last lab I will was that I can find were from [phone] Assessment/plan: Dyslipidemia with patient currently taking Lipitor [...] as of this encounter (statuses as of 10/12/2023) Resolved Problems Problem Noted Date Diagnosed Date [...] as of this encounter (statuses as of 10/12/2023) Immunizations Name Administration Dates Next Due COVID-19 [...] Telephone Encounter - Winsome Chang RN - 10/12/2023 8:[address] Aguero: "Blood workup done on 10/11/2023: - WBC 4100, H&H of 09/10, MCV 119 - Platelet count -> 18,000. Overall stable pancytopenia. Repeat blood workup in one week. " Left message for patient that her lab work was stable and Dr Aguero would like to repeat lab work in1 week as scheduled. Advised her to return call if any questions. documented in this encounter Plan of Treatment Upcoming Encounters Date Type Department Care Team (Late st Contact Info) Description 10/18/2023 9:00 AM EST Laboratory Lab Mobile Phlebotomy [facility] [place] [address] [place] [address] [facility], [facility] Mobile Home Draw [address] [place] [address] 10/25/2023 9:00 AM EST Laboratory Lab Mobile Phlebotomy [facility] [place] [address] [place] [address] [facility], [facility] Mobile Home Draw [address] [place] [address] 10/26/2023 11:00 AM EST [facility] Visit [facility] [place], [address] [address] Tremaine Morgan [facility]C [address] [facility] [address] 11/02/2023 2:00 PM EST Immunization/Injectio n Hematology/Oncology Treatment, [place] [address] [place] [address] Nurse, Med 4 [address] [facility] [address] 11/08/2023 2:00 PM EST Home Visit [facility] [place], [facility] 132 [facility] [place] [address] Marisa Pacheco, RN [address] [place] [address] 11/20/2023 1:00 PM EST Office Visit Pharmacy, [address] [place] [address] [place] [address] 12/14/2023 2:00 PM EST Nurse Only Ancillary [address] [place] [address] Cristina, Nurse [address] [place] [address] 12/26/2023 11:15 AM EST Office Visit Hematology/Oncology [facility] [address] [place] [address] Jitendra Aguero MD [address] [place] [address] 01/02/2024 2:20 PM EST Office Visit Family Medicine [address] [place] [phone] Dhruv Moss MD [address] [place] [address] [place] [address] 07/03/2024 1:30 PM EDT Imaging Radiology [address] [place] [address] Scheduled Procedures Name Priority Associated Diagnoses Date/Ti [...] this encounter Medical Devices Implanted Type Area Process Engineering Intern Device Identifier Shelf Expiration Date Model / Serial / Lot Port Pwr Mri Isp Profile - [id number] Implanted:Qty: 1 on 07/24/2020 by Akash Castillo MD at OR [facility] Right: Chest CR BARD : PERIPHERAL VASCULAR 04/12/2021 [id number] / / [id number] documented as of this encounter Advance Directives [...] the patient have Health Care Power of Film Sound Engineer? No Code Status History Code Status Date Activated Date Inactivated Comments Full Code 07/27/2021 7:04 PM 07/31/2021 5:19 PM This order reflects the patients wishes and were consensually agreed upon. Question Answer Comments Discussion of Advance Directives occurred with: Patient Does the patient have a Living Will? No Does the patient have Health Care Power of Film Sound Engineer? No Full Code 07/25/2021 12:43 PM 07/25/2021 11:03 PM Thi s order reflects the patients wishes and were consensually agreed upon. Question Answer Comments Discussion of Advance Directives occurred with: Patient/Family Does the patient have a Living Will? No Does the patient have Health Care Power of Film Sound Engineer? No Full Code 06/12/2017 2:29 PM 06/12/2017 10:37 PM This order reflects the patients wishes and were consensually agreed upon. Question Answer Comments Discussion of Advance Directives occurred with: Not Discussed Does the patient have a Living Will? No Does the patient have Health Care Power of Film Sound Engineer? No Healthcare Agents on File Name Relationship Healthcare Agent [facility] Communication Juanita Sliva Adult Child Health Care Agent Care Teams Blueprinting Machine Operator Relationship Specialty Start Date End Date Dhruv Moss MD [address] [place] [address] [place] [address] PCP - General Family Medicine 08/27/21 documented as of this encounter
--- OUTSIDE RECORDS SUMMARY | 2024-02-26 04:39 | External Medical Summary | Summary of Care ---
Author Name Unknown Organization [facility] Address [address] [place] [address] Phone [phone] Care Team Providers Care Business Analysis Analyst Name Role Phone Dhruv Moss MD Primary Care Provide r Reason for Visit * Reason Onset Date Comments Test Results Lab 10/06/2023 Encounter Details Date Type Department Care Team (Late st Contact Info) Description 10/06/2023 Telephone Hematology/Oncology Treatment, [place] [address] [place] [address] Jitendra Aguero MD [address] [place] [address] Test Results Lab Allergies No known active allergiesdocumented as of this encounter (statuses as of 10/06/2023) Medications Medication Sig Dispensed Refills Start Date End Date Status Cholecalciferol (VITAMIN D3) 5000 UNITS TabletIndications:bowers pplement Take 1 Tablet by mouth in the morning. 0 05/14/2015 Active BD Pen Needle Mini U/F 31G X 5 MM (Insulin Pen Needle)Indications:T ype 2 diabetes mellitus with hemoglobin A1c goal of less than 8.0% ([facility]) Use with xultophy once a day [...] for Nausea. 60 Tablet 3 12/09/2021 Active Chromatik Delica Lancets 30GIndications:Type 2 diabetes mellitus with hemoglobin A1c goal of less than 8.0% ([facility]) Use to test blood sugar three times a day DXe11.9 300 Each 3 12/16/2021 Active LuckyPennieTouch Verio In Vitro Strip (Glucose Blood)Indications:Ty pe 2 diabetes mellitus with hemoglobin A1c goal of less than 8.0% ([facility]) Use to test blood sugar three times a day DXe11.9 300 Strip 3 12/16/2021 Active LuckyPennieTouch Verio Flex System w/Device Kit Use as directed . 0 12/16/2021 Active Magnesium 100 MG Oral TabletIndications:bowers pplement Take 1 Tablet by mouth in the morning. Pt states every 3 days. 0 Active Acetaminophen 500 MG Oral Tablet Take 1 Tablet by mouth every 6 hours as needed. 0 Active Nystatin 052905 UNIT/GM External Cream Apply topically to affected [...] 24 Hour (Imdur)Indications:C oronary artery disease involving craig coronary artery of craig heart without angina pectoris,HTN, goal below 140/90 [...] hemoglobin A1c goal of less than 8.0% (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 Date of Transplant: 09/01/2021 Conditioning Regimen: Fludarabine / Busulfan 2 with post-transplant Cytoxan ABO/Rh: A Positive CMV status: CMV Positive--- GRID: [id number] / DID: [id number] Matched Unrelated 10/24--- DPB1 Match ABO/Rh: A [...] Thrombocytopenia 12/06/2022 Last Assessment & Plan: Platelets 50685 on 03/20 Questionable hematuria Urinary incontinence 09/12/2022 [...] Currently in relapse. Hemoglobin yesterday 8.8. Platelets 93439. - weekly CBC. Transfusion to maintain above hemoglobin of 8 Microalbuminuria due to type 2 diabetes mellitus 10/30/2019 Insulin-requiring or dependent type II diabetes mellitus 07/23/2018 Recurrent major depressive disorder, in partial remission 07/23/2018 Last Assessment & Plan: Stable -continue venlafaxine Coronary artery disease invo lving craig coronary artery of craig heart without angina pectoris 06/12/2017 Overview: S/P EDIL to LAD on 06/12/17 Last Assessment & Plan: No angina - Continue atorvastatin, isosorbide, metoprolol - no ASA due to thrombocytopenia Dyslipidemia, goal LDL below 70 11/25/2011 Last Assessment & Plan: Patient having no issues. She continues on Lipitor 40 mg daily Last lab I will was that I can find were from [id number] Assessment/plan: Dyslipidemia with patient currently taking Lipitor [...] as of this encounter (statuses as of 10/06/2023) Resolved Problems Problem Noted Date Diagnosed Date [...] as of this encounter (statuses as of 10/06/2023) Immunizations Name Administration Dates Next Due COVID-19 [...] Telephone Encounter - Winsome Chang RN - 10/06/2023 4:[address] Aguero: "Blood workup done on 10/04/2023: -WBC 3800, H&H of 10.12/11, [place] [address] Overall stable pancytopenia No need for blood or Platelet transfusion. Repeat CBCD in 1 week. " Called patient who verbalized understanding. documented in this encounter Plan of Treatment Upcoming Encounters Date Type Department Care Team (Late st Contact Info) Description 10/11/2023 9:00 AM EST Laboratory Lab [place] [place] [address] [place] [address] [facility] [address] [place] [address] 10/18/2023 9:00 AM EST Laboratory Lab [facility] [address] [place] [address] [facility], [facility] [address] [place] [address] 10/25/2023 9:00 AM EST Laboratory Lab [facility] [address] [place] [address] [facility] [facility] [address] [place] [address] 11/02/2023 2:00 PM EST Immunization/Injectio n Hematology/Oncology Treatment, [place] [address] [place] [address] Nurse, Med [address] [facility] [place] [address] 11/08/2023 2:00 PM EST Home Visit [facility], [facility] [address] [facility] [place] [address] Marisa Pacheco, TANYA [address] [facility] [place] [address] 11/20/2023 1:00 PM EST Office Visit Pharmacy, [address] [place] [address] [place] [address] 12/14/2023 2:00 PM EST Nurse Only Ancillary [address] [place] [address] [place], Nurse [address] [place] [address] 12/26/2023 11:15 AM EST Office Visit Hematology/Oncology [facility] [address] [place] [address] Jitendra Aguero MD [address] [place] [address] 01/02/2024 2:20 PM EST Office Visit Family Medicine [address] [place] [phone] Dhruv Moss MD [address] [place] [address] [place] [address] 07/03/2024 1:30 PM EDT Imaging Radiology [address] [place] [address] Scheduled Procedures Name Priority Associated Diagnoses Date/Ti [...] 07/25/2019, Additional history exists TSH 12/06/2023 12/06/2022, 10/3 11/2021, 03/08/2022, Additional history exists Depression Screening 12/12/2023 [...] 06/13/2030 06/13/2023, 03/16/2015 Zoster Vaccines Completed 10/30/2020, 0902/2020, 07/13/2020, Additional history exists Pneumococcal Vaccine: 65+ Years Completed 06/10/2022, 01/06/2017, 10/09/2015, Additional history exists GARDASIL-HPV IMMUNIZATION SERIES Aged Out No longer eligible based on patient's age to complete this topic MENINGOCOCCAL (MENACTRA/MENVEO) Aged Out No longer eligible based on patient's age to complete this topic documented as of this encounter Medical Devices Implanted Type Area Dry Kiln Operator Helper Device Identifier Shelf Expiration Date Model / Serial / Lot Port Pwr Mri Isp Profile - [id number] Implanted:Qty: 1 on 07/24/2020 by Akash Castillo MD at OR [facility] Right: Chest CR BARD : PERIPHERAL VASCULAR 04/12/2021 [id number] / / [id number] documented as of this encounter Advance Directives [...] the patient have Health Care Power of Post Office Markup Clerk? No Code Status History Code Status Date Activated Date Inactivated Comments Full Code 07/27/2021 7:04 PM 07/31/2021 5:19 PM This order reflects the patients wishes and were consensually agreed upon. Question Answer Comments Discussion of Advance Directives occurred with: Patient Does the patient have a Living Will? No Does the patient have Health Care Power of Post Office Markup Clerk? No Full Code 07/25/2021 12:43 PM 07/25/2021 11:03 PM Thi s order reflects the patients wishes and were consensually agreed upon. Question Answer Comments Discussion of Advance Directives occurred with: Patient/Family Does the patient have a Living Will? No Does the patient have Health Care Power of Post Office Markup Clerk? No Full Code 06/12/2017 2:29 PM 06/12/2017 10:37 PM This order reflects the patients wishes and were consensually agreed upon. Question Answer Comments Discussion of Advance Directives occurred with: Not Discussed Does the patient have a Living Will? No Does the patient have Health Care Power of Post Office Markup Clerk? No Healthcare Agents on File Name Relationship Healthcare Agent Relationshi p Communication Juanita Ricardo Adult Child Health Care Agent Care Teams Business Analysis Analyst Relationship Specialty Start Date End Date Dhruv Moss MD [address] [place] [id number] PCP - General Family Medicine 08/27/21 documented as of this encounter
--- OUTSIDE RECORDS SUMMARY | 2024-02-26 04:39 | External Medical Summary | Summary of Care ---
Author Name Unknown Organization [facility] Address [address] [place] [address] Phone [phone] Care Team Providers Care Film Developing Machine Operator Name Role Phone Dhruv Moss MD Primary Care Provide r Reason for Visit * Reason Onset Date Comments Test Results Lab 09/21/2023 Encounter Details Date Type Department Care Team (Late st Contact Info) Description 09/21/2023 Telephone Hematology/Oncology Treatment, [place] [address] [place] [address] Jitendra Aguero MD [address] [place] [address] Test Results Lab Allergies No known active [...] less than 8.0% ([facility]) Use with xultophy once a day [...] for Nausea. 60 Tablet 3 12/09/2021 Active MDJ[place] Delica Lancets 30GIndications:Type 2 diabetes mellitus with hemoglobin A1c goal of less than 8.0% ([facility]) Use to test blood sugar three times a day DXe11.9 300 Each 3 12/16/2021 Active ZayoTouch Verio In Vitro Strip (Glucose Blood)Indications:Ty pe 2 diabetes mellitus with hemoglobin A1c goal of less than 8.0% ([facility]) Use to test blood sugar three times a day DXe11.9 300 Strip 3 12/16/2021 Active ZayoTouch Verio Flex System w/Device Kit Use as directed . 0 12/16/2021 Active Magnesium 100 MG Oral TabletIndications:bowers pplement Take 1 Tablet by mouth in the morning. Pt states every 3 days. 0 Active Acetaminophen 500 MG Oral Tablet Take 1 Tablet by mouth every 6 hours as needed. 0 Active Nystatin 857117 UNIT/GM External Cream Apply topically to affected [...] 24 Hour (Imdur)Indications:C oronary artery disease involving [place] coronary artery of [place] heart without angina pectoris,HTN, goal below 140/90 [...] less than 8.0% ([facility]) Inject 18 Units under the skin [...] edema, unspecified whether group home insulin use (HCC) 1.5 mg PERINEURAL [...] [id number] 0000 [id number] / DID: [id number] Matched Unrelated 10/24--- DPB1 Match ABO/Rh: A [...] Thrombocytopenia 12/06/2022 Last Assessment & Plan: Platelets 36959 on 03/20 Questionable hematuria Urinary incontinence 09/12/2022 [...] Currently in relapse. Hemoglobin yesterday 8.8. Platelets 13616. - weekly CBC. Transfusion to maintain above hemoglobin of 8 Microalbuminuria due to type 2 diabetes mellitus 10/30/2019 Insulin-requiring or dependent type II diabetes mellitus 07/23/2018 Recurrent major depressive disorder, in partial remission 07/23/2018 Last Assessment & Plan: Stable -continue venlafaxine Coronary artery disease invo lving [place] coronary artery of [place] heart without angina pectoris 06/12/2017 Overview: S/P EDIL to LAD on 06/12/17 Last Assessment & Plan: No angina - Continue atorvastatin, isosorbide, metoprolol - no ASA due to thrombocytopenia Dyslipidemia, goal LDL below 70 11/25/2011 Last Assessment & Plan: Patient having no issues. She continues on Lipitor 40 mg daily Last lab I will was that I can find were from [id number] Assessment/plan: Dyslipidemia with patient currently taking Lipitor [...] Telephone Encounter - Winsome Chang RN - 09/21/2023 10:[address] Aguero: "Blood workup done on 09/20/2023: - WBC 4400, H&H of 10.8/32, - Platelet count of 23,000. Overall stable anemia, stable thrombocytopenia. No need for blood or platelet transfusion. Repeat CBCD in one week. " Called patient who verbalized understanding. documented in this encounter Plan of Treatment Upcoming Encounters Date Type Department Care Team (Late st Contact Info) Description 09/21/2023 2:00 PM EST Immunization/Injectio n Hematology/Oncology Treatment, [place] [address] [place] [address] Nurse, [facility] [address] [place] [address] 09/27/2023 9:00 AM EST Laboratory Lab [facility] [address] [place] [address] [facility] [address] [place] [address] 09/27/2023 11:30 AM EST [facility] Visit [facility] [place] [address] [place] [address] Marisa Pacheco RN [address] [place] [address] 10/02/2023 1:00 PM EST Office Visit Pharmacy, [address] [place] [address] [place] [address] 10/04/2023 9:00 AM EST Laboratory Lab [facility] [address] [place] [address] [facility] [address] [place] [address] 10/11/2023 9:00 AM EST Laboratory Lab [facility] [address] [place] [address] [facility] [address] [place] [address] 10/18/2023 9:00 AM EST Laboratory Lab [facility] [address] [place] [address] Gm, [facility] Draw [address] [place] [address] 10/25/2023 9:00 AM EST Laboratory Lab [facility] [address] [place] [address] [facility] [address] [place] [address] 12/14/2023 2:00 PM EST Nurse Only Ancillary [address] [place] [address] [place], Nurse [address] [place] [address] 12/26/2023 11:15 AM EST Office Visit Hematology/Oncology [facility] [place] [address] [facility] [place] [address] Jitendra Aguero MD [address] [facility] [place] [address] 01/02/2024 2:20 PM EST Office Visit Family Medicine [address] [place] [phone] Dhruv Moss MD [address] [place] [address] [place] [address] 07/03/2024 1:30 PM EDT Imaging Radiology [address] [place] [address] Scheduled Procedures Name Priority Associated Diagnoses Date/Ti [...] this encounter Medical Devices Implanted Type Area School Crossing Guard Supervisor Device Identifier Shelf Expiration Date Model / Serial / Lot Port Pwr Mri Isp Profile - [id number] Implanted:Qty: 1 on 07/24/2020 by Akash Castillo MD at [facility] Right: Chest CR BARD : PERIPHERAL VASCULAR 04/12/2021 [id number] / / [id number] documented as of this encounter Advance Directives [...] the patient have Health Care Power of Computer Technology Teacher? No Code Status History Code Status Date Activated Date Inactivated Comments Full Code 07/27/2021 7:04 PM 07/31/2021 5:19 PM This order reflects the patients wishes and were consensually agreed upon. Question Answer Comments Discussion of Advance Directives occurred with: Patient Does the patient have a Living Will? No Does the patient have Health Care Power of Computer Technology Teacher? No Full Code 07/25/2021 12:43 PM 07/25/2021 11:03 PM Thi s order reflects the patients wishes and were consensually agreed upon. Question Answer Comments Discussion of Advance Directives occurred with: Patient/Family Does the patient have a Living Will? No Does the patient have Health Care Power of Computer Technology Teacher? No Full Code 06/12/2017 2:29 PM 06/12/2017 10:37 PM This order reflects the patients wishes and were consensually agreed upon. Question Answer Comments Discussion of Advance Directives occurred with: Not Discussed Does the patient have a Living Will? No Does the patient have Health Care Power of Computer Technology Teacher? No Healthcare Agents on File Name Relationship Healthcare Agent [facility] Communication Juanita Ricardo Adult Child Health Care Agent Care Teams Film Developing Machine Operator Relationship Specialty Start Date End Date Dhruv Moss MD [address] [facility] [place] [address] PCP - General Family Medicine 08/27/21 documented as of this encounter
--- OUTSIDE RECORDS SUMMARY | 2024-02-26 04:39 | External Medical Summary ---
Author Name Unknown Address Unknown Organization [id number]:[facility] [address] [place] [address] Laboratory Report Ordering Provider Test Date Status ANN MUNGUIA 10/18/2023 08:51:00 Final Observation Date Value Abnormality Reference (Units ) Status SYNC LEUKOCYTES IN BLOOD BY AUTOMATED COUNT 10/18/2023 08:51:00 4.09 4.00-10.80 (K/uL) Final Neutrophils/100 leukocytes in Blood by Manual count 10/18/2023 08:51:00 18.0 Below low normal 40.0-75.0 (%) Final Lymphocytes/100 leukocytes in Blood by Manual count 10/18/2023 08:51:00 77.0 Above high normal 18.0-42.0 (%) Final Monocytes/100 leukocytes in Blood by Manual count 10/18/2023 08:51:00 3.0 1.0-11.0 (%) Final Eosinophils/100 leukocytes in Blood by Manual count 10/18/2023 08:51:00 2.0 0.0-6.0 (%) Final Neutrophils [#/volume] in Blood by Manual count 10/18/2023 08:51:00 0.74 Below low normal 1.80-7.70 (K/uL) Final Lymphocytes [#/volume] in Blood by Manual count 10/18/2023 08:51:00 3.15 1.00-4.80 (K/uL) Final Monocytes [#/volume] in Blood by Manual count 10/18/2023 08:51:00 0.12 0.00-1.10 (K/uL) Final Eosinophils [#/volume] in Blood by Manual count 10/18/2023 08:51:00 0.08 0.00-0.70 (K/uL) Final Nucleated erythrocytes/100 leukocytes [Ratio] in Blood by Automated count 10/18/2023 08:51:00 Final Variant lymphocytes [Presence] in Blood by Light microscopy 10/18/2023 08:51:00 Present Abnormal None Seen Final Performing Location [facility] [address] [place] [address]
--- OUTSIDE RECORDS SUMMARY | 2024-02-26 04:39 | External Medical Summary ---
Author Name Unknown Address Unknown Organization [facility] [address] [place] [address] Laboratory Report Ordering Provider Test Date Status ANN MUNGUIA 10/11/2023 08:20:00 Final Observation Date Value Abnormality Reference (Units ) Status WBC, Total 10/11/2023 08:20:00 4.14 4.00-10.80 (K/uL) Final RBC 10/11/2023 08:20:00 2.43 3.85-5.15 (M/uL) Final Hemoglobin 10/11/2023 08:20:00 10.0 Below low normal 12.0-15.3 (g/dL) Final HCT 10/11/2023 08:20:00 28.9 Below low normal 36.0-45.2 (%) Final MCV 10/11/2023 08:20:00 118.9 81.5-97.5 (fL) Final MCH 10/11/2023 08:20:00 41.2 27.0-34.0 (pg) Final MCHC 10/11/2023 08:20:00 34.6 32.0-36.0 (g/dL) Final RDW 10/11/2023 08:20:00 13.3 11.5-15.5 (%) Final Platelets 10/11/2023 08:20:00 18 Below lower panic limits 140-400 (K/uL) Final MPV 10/11/2023 08:20:00 11.8 6.6-11.1 (fL) Final Performing Location [facility] [address] [place] [address]
--- OUTSIDE RECORDS SUMMARY | 2024-02-26 04:39 | External Medical Summary | Summary of Care ---
Author Name Unknown Organization [facility] Address [address] [place] [address] Phone [phone] Care Team Providers Care Social Services Manager Name Role Phone Dhruv Moss MD Primary Care Provide r Reason for Visit * Reason Onset Date Comments Appointment 10/11/2023 Encounter Details Date Type Department Care Team (Late st Contact Info) Description 10/11/2023 Telephone [facility] [place] [address] [place] [address] Services, Scheduling [address] [place] [address] Appointment Allergies No known active allergiesdocumented as of this encounter (statuses as of 10/11/2023) Medications Medication Sig Dispensed Refills Start Date [...] for Nausea. 60 Tablet 3 12/09/2021 Active FIGSTouch Delica Lancets 30GIndications:Type 2 diabetes mellitus with hemoglobin A1c goal of less than 8.0% ([facility]) Use to test blood sugar three times a day DXe11.9 300 Each 3 12/16/2021 Active OneTouch Verio In Vitro Strip (Glucose Blood)Indications:Ty pe 2 diabetes mellitus with hemoglobin A1c goal of less than 8.0% ([facility]) Use to test blood sugar [...] 6 hours as needed. 0 Active Nystatin 313462 UNIT/GM External Cream Apply topically to affected [...] 24 Hour (Imdur)Indications:C oronary artery disease involving levelock coronary artery of levelock heart without angina pectoris,HTN, goal below 140/90 [...] and macular edema, unspecified whether termite control technician insulin use (HCC) 1.5 mg PERINEURAL PRN 05/12/2023 05/11/2024 Active documented as of this encounter (statuses as of 10/11/2023) Active Problems Patient Care Coordination No te Formatting of this note migh t be different from the original. Date of Transplant: 09/01/2021 Conditioning Regimen: Fludarabine / Busulfan 2 with post-transplant Cytoxan ABO/Rh: A Positive CMV status: CMV Positive--- GRID: [id number] / DID: [id number] Matched Unrelated 10/24--- DPB1 Match ABO/Rh: A [...] Thrombocytopenia 12/06/2022 Last Assessment & Plan: Platelets 65580 on 03/20 Questionable hematuria Urinary incontinence 09/12/2022 [...] Currently in relapse. Hemoglobin yesterday 8.8. Platelets 37962. - weekly CBC. Transfusion to maintain above hemoglobin of 8 Microalbuminuria due to type 2 diabetes mellitus 10/30/2019 Insulin-requiring or dependent type II diabetes mellitus 07/23/2018 Recurrent major depressive disorder, in partial remission 07/23/2018 Last Assessment & Plan: Stable -continue venlafaxine Coronary artery disease invo lving levelock coronary artery of levelock heart without angina pectoris 06/12/2017 Overview: S/P EDIL to LAD on 06/12/17 Last Assessment & Plan: No angina - Continue atorvastatin, isosorbide, metoprolol - no ASA due to thrombocytopenia Dyslipidemia, goal LDL below 70 11/25/2011 Last Assessment & Plan: Patient having no issues. She continues on Lipitor 40 mg daily Last lab I will was that I can find were from [phone] Assessment/plan: Dyslipidemia with patient currently taking Lipitor [...] as of this encounter (statuses as of 10/11/2023) Resolved Problems Problem Noted Date Diagnosed Date [...] as of this encounter (statuses as of 10/11/2023) Immunizations Name Administration Dates Next Due COVID-19 mRNA, LNP-s, No Pre serve, 2-Dose Series (HBCS) 02/05/2021,01/08/2021 COVID-19, LNP-s, No Preserve , Ye-sucrose, [...] encounter Miscellaneous Notes * Telephone Encounter - Sara García OSA - 10/11/2023 4:10 PM EST Called pt to confirm home visit with pa for 10/26 at 11am, pt agreeable documented in this encounter Plan of Treatment Upcoming Encounters Date Type Department Care Team (Late st Contact Info) Description 10/18/2023 9:00 AM EST Laboratory Lab [facility] [address] [place] [address] [facility] [place] Home Draw [address] [place] [address] 10/25/2023 9:00 AM EST Laboratory Lab [facility] [address] [place] [address] [facility] [place] Draw [address] [place] [address] 10/26/2023 11:00 AM EST Home Visit [facility] [place], [facility] [address] [place] [address] Tremaine Morgan PA-C [address] [place] [address] 11/02/2023 2:00 PM EST Immunization/Injectio n Hematology/Oncology Treatment, [place] [address] [place] [address] Nurse, Med [address] [place] [address] 11/08/2023 2:00 PM EST Home Visit [facility] [place], [facility] [address] [place] [address] Marisa Pacheco, TANYA [address] [place] [address] 11/20/2023 1:00 PM EST Office Visit Pharmacy, [address] [place] [address] [place] [address] 12/14/2023 2:00 PM EST Nurse Only Ancillary [address] [place] [address] [place], Nurse Annual [address] [place] [address] 12/26/2023 11:15 AM EST Office Visit Hematology/Oncology [facility] [place] [address] [place] [address] Jitendra Aguero MD [address] [place] [address] 01/02/2024 2:20 PM EST Office Visit Family Medicine [address] [place] [phone] Dhruv Moss MD [address] [place] [address] [place] [address] 07/03/2024 1:30 PM EDT Imaging Radiology [address] [place] [address] Scheduled Procedures Name Priority Associated Diagnoses Date/Ti [...] this encounter Medical Devices Implanted Type Area Deburrer Strip Device Identifier Shelf Expiration Date Model / Serial / Lot Port Pwr Mri Isp Profile - [id number] Implanted:Qty: 1 on 07/24/2020 by Akash Castillo MD at OR [facility] Right: Chest CR BARD : PERIPHERAL VASCULAR 04/12/2021 [id number] / / [id number] documented as of this encounter Advance Directives [...] the patient have Health Care Power of Search Advertising Strategist? No Code Status History Code Status Date Activated Date Inactivated Comments Full Code 07/27/2021 7:04 PM 07/31/2021 5:19 PM This order reflects the patients wishes and were consensually agreed upon. Question Answer Comments Discussion of Advance Directives occurred with: Patient Does the patient have a Living Will? No Does the patient have Health Care Power of Search Advertising Strategist? No Full Code 07/25/2021 12:43 PM 07/25/2021 11:03 PM Thi s order reflects the patients wishes and were consensually agreed upon. Question Answer Comments Discussion of Advance Directives occurred with: Patient/Family Does the patient have a Living Will? No Does the patient have Health Care Power of Search Advertising Strategist? No Full Code 06/12/2017 2:29 PM 06/12/2017 10:37 PM This order reflects the patients wishes and were consensually agreed upon. Question Answer Comments Discussion of Advance Directives occurred with: Not Discussed Does the patient have a Living Will? No Does the patient have Health Care Power of Search Advertising Strategist? No Healthcare Agents on File Name Relationship Healthcare Agent [facility] p Communication [facility] Adult Child Health Care Agent Care Teams Social Services Manager Relationship Specialty Start Date End Date Dhruv Moss MD [address] [place] [address] [place] [address] PCP - General Family Medicine 08/27/21 documented as of this encounter
--- OUTSIDE RECORDS SUMMARY | 2024-02-26 04:40 | External Medical Summary | Summary of Care ---
Author Name Unknown Organization [facility] Address [address] [facility] [place] [address] Phone [phone] Care Team Providers Care Digital Ad Trafficker Name Role Phone Dhruv Moss MD Primary Care Provide r Reason for Visit * Reason Onset Date Comments Test Results Lab 09/07/2023 Encounter Details Date Type Department Care Team (Late st Contact Info) Description 09/07/2023 Telephone Hematology/Oncology [facility] [place] [address] [place] [address] Jitendra Aguero MD 200 [facility] [place] [address] Test Results Lab Allergies No known active allergiesdocumented as of this encounter (statuses as of 09/07/2023) Medications Medication Sig Dispensed Refills Start Date [...] for Nausea. 60 Tablet 3 12/09/2021 Active GetonicTouch Delica Lancets 30GIndications:Type 2 diabetes mellitus with hemoglobin A1c goal of less than 8.0% ([facility]) Use to test blood sugar three times a day DXe11.9 300 Each 3 12/16/2021 Active GetonicTouch Verio In Vitro Strip (Glucose Blood)Indications:Ty pe 2 diabetes mellitus with hemoglobin A1c goal of less than 8.0% ([facility]) Use to test blood sugar three times a day DXe11.9 300 Strip 3 12/16/2021 Active GetonicTouch Verio Flex System w/Device Kit Use as directed . 0 12/16/2021 Active Magnesium 100 MG Oral TabletIndications:bowers pplement Take 1 Tablet by mouth in the morning. Pt states every 3 days. 0 Active Acetaminophen 500 MG Oral Tablet Take 1 Tablet by mouth every 6 hours as needed. 0 Active Nystatin 766746 UNIT/GM External Cream Apply topically to affected [...] 24 Hour (Imdur)Indications:C oronary artery disease involving eagle coronary artery of eagle heart without angina pectoris,HTN, goal below 140/90 Take 1 Tablet by mouth in the morning. 90 Tablet 3 05/01/2023 Active Levothyroxine Sodium 75 MCG Oral Tablet (Levoxyl)Indications :Postoperative hypothyroidism TAKE 1 TABLET BY MOUTH ONCE DAILY FIRST THING IN THE MORNING AT LEAST 30 MINUTES PRIOR TO BREAKFAST OR OTHER MEDS 90 Tablet 0 05/01/2023 Active metFORMIN HCl 1000 MG Oral [...] at bedtime. 15 mL 3 07/25/2023 Active Hospital, Clinic, or Other Facility Administered [...] as of this encounter (statuses as of 09/07/2023) Active Problems Patient Care Coordination No te Formatting of this note migh t be different from the original. Date of Transplant: 09/01/2021 Conditioning Regimen: Fludarabine / Busulfan 2 with post-transplant Cytoxan ABO/Rh: A Positive CMV status: CMV Positive--- GRID: [id number] / DID: [id number] Matched Unrelated 10/24--- DPB1 Match ABO/Rh: A [...] Thrombocytopenia 12/06/2022 Last Assessment & Plan: Platelets 46888 on 03/20 Questionable hematuria Urinary incontinence 09/12/2022 [...] Currently in relapse. Hemoglobin yesterday 8.8. Platelets 29636. - weekly CBC. Transfusion to maintain above hemoglobin of 8 Microalbuminuria due to type 2 diabetes mellitus 10/30/2019 Insulin-requiring or dependent type II diabetes mellitus 07/23/2018 Recurrent major depressive disorder, in partial remission 07/23/2018 Last Assessment & Plan: Stable -continue venlafaxine Coronary artery disease invo lving eagle coronary artery of eagle heart without angina pectoris 06/12/2017 Overview: S/P EDIL to LAD on 06/12/17 Last Assessment & Plan: No angina - Continue atorvastatin, isosorbide, metoprolol - no ASA due to thrombocytopenia Dyslipidemia, goal LDL below 70 11/25/2011 Last Assessment & Plan: Patient having no issues. She continues on Lipitor 40 mg daily Last lab I will was that I can find were from [phone] Assessment/plan: Dyslipidemia with patient currently taking Lipitor [...] as of this encounter (statuses as of 09/07/2023) Resolved Problems Problem Noted Date Diagnosed Date [...] as of this encounter (statuses as of 09/07/2023) Immunizations Name Administration Dates Next Due COVID-19 [...] encounter Miscellaneous Notes * Telephone Encounter - Earnestine Perla LPN - 09/07/2023 8:47 AM EDT Left message for patient to call office to notify, also sent myG message to notify. Cbcd entered for 1 week. ----- Message from Jitendra Aguero MD sent at 09/07/2023 6:50 AM EDT ----- Blood workup done on 09/06/2023: - WBC 3600, - H&H of 9.2/28.2, MCV 122 - Platelet count 18,000 No need for the blood or platelet transfusion. Will repeat CBCD in one week. documented in this encounter Plan of Treatment Upcoming Encounters Date Type Department Care Team (Late st Contact Info) Description 09/13/2023 9:00 AM EDT Laboratory Lab Mobile Phlebotomy [facility] [address] [place] [address] [facility] Mobile Home Draw [address] [place] [address] 09/20/2023 9:00 AM EST Laboratory Lab Mobile Ph[facility]botomy [facility] [address] [place] [address] [facility] Mobile Home Draw [address] [place] [address] 09/21/2023 2:00 PM EST Immunization/Injectio n Hematology/Oncology Treatment, [place] [address] [address] Nurse, Med [address] [place] [address] 09/27/2023 9:00 AM EST Laboratory Lab Mobile Phlebotomy [facility] [address] [place] [address] [facility], l Mobile Home Draw [address] [place] [address] 09/27/2023 11:30 AM EST Home Visit [facility] [place], [address] [place] [address] Marisa Pacheco RN [address] [place] [address] 10/02/2023 1:00 PM EST Office Visit Pharmacy, [address] [place] [address] [place] [address] 10/04/2023 9:00 AM EST Laboratory Lab [facility]bot[facility] [address] [place] [address] [facility] Mobile Home Draw [address] [place] [address] 10/11/2023 9:00 AM EST Laboratory Lab Mobile Phlebotomy [facility] [address] [place] [address] [facility] Mobile Home Draw [address] [place] [address] 10/18/2023 9:00 AM EST Laboratory Lab Mobile Phlebotomy [facility] [address] [place] [address] [facility], [facility] Mobile Home Draw [address] [place] [address] 10/25/2023 9:00 AM EST Laboratory Lab [facility]botomy [facility] [address] [place] [address] [facility] Mobile Home Draw [address] [place] [address] 12/14/2023 2:00 PM EST Nurse Only Ancillary [address] [place] [address] [place], Nurse [address] [place] [address] 12/26/2023 11:15 AM EST Office Visit Hematology/Oncology [employer] [address] [facility] [place] [address] Jitendra Aguero MD [address] [facility] [place] [address] 01/02/2024 2:20 PM EST Office Visit Family Medicine [address] [place] [phone] Dhruv Moss MD [address] [place] [address] [place] [address] 07/03/2024 1:30 PM EDT Imaging Radiology [address] [place] [address] Scheduled Orders Name Type Priority Associated Diagnoses Orde r Schedule CBC WITH WBC DIFFERENTIAL Lab STAT MDS (myelodysplastic syndrome), high grade (HCC) Expected: 09/14/2023 (Approximate), Expires: 09/07/2024 Scheduled Procedures Name Priority Associated Diagnoses Date/Ti me COLONOSCOPY FLEXIBLE PROXIMA L DIAGNOSTIC Recall Encounter for screening colonoscopy Health Maintenance Due Date Last Done Comments Hepatitis B (1 of 3 - Risk 3-dose series) 2008 Albumin/Creatinine Ratio 03/08/2023 022, 10/29/2019, 08/13/2018, Additional history exists HbA1c 06/05/2023 12/06/2022, 08/13, 03/08/2022, Additional history exists COVID-19 Vaccine ( season) 2023 12/06/2021, 02/05/2021, 01/08/2021 Influenza Vaccine (FLU shot) (#1) 2023 07/17/2020, 07/13/2020, 07/25/2019, Additional history exists TSH 12/06/2023 12/06/2022, 08/15, 03/08/2022, Additional history exists Depression Screening 12/12/2023 12/12/2022 COLONOSCOPY-EVERY 5 YRS AGES 18-100 05/06/2024 05/06/2019, 05/06/2019 DIABETES-EYE EXAM 05/12/2024 05/12/2023, , 05/12/2023, Additional history exists Diabetic Foot Exam 06/05/2024 06/05/2023, 0 06/03/2022, 06/01/2021, Additional history exists GFR 06/07/2024 06/07/2023, 05/13, 05/08/2023, Additional history exists Mammogram 06/29/2024 06/29/2023, 06/13, 11/30/2020, Additional history exists DTaP,Tdap,and Td Vaccines (3 [...] encounter Medical Devices Implanted Type Area Medical Receptionist Device Identifier Shelf Expiration Date Model / Serial / Lot Port Pwr Mri Isp Profile - [id number] Implanted:Qty: 1 on 07/24/2020 by Akash Castillo MD at OR [facility] Right: Chest CR BARD : PERIPHERAL VASCULAR 04/12/2021 [id number] / / [id number] documented as of this encounter Visit Diagnoses [...] the patient have Health Care Power of Link Assembler? No Code Status History Code Status Date Activated Date Inactivated Comments Full Code 07/27/2021 7:04 PM 07/31/2021 5:19 PM This order reflects the patients wishes and were consensually agreed upon. Question Answer Comments Discussion of Advance Directives occurred with: Patient Does the patient have a Living Will? No Does the patient have Health Care Power of Link Assembler? No Full Code 07/25/2021 12:43 PM 07/25/2021 11:03 PM Thi s order reflects the patients wishes and were consensually agreed upon. Question Answer Comments Discussion of Advance Directives occurred with: Patient/Family Does the patient have a Living Will? No Does the patient have Health Care Power of Link Assembler? No Full Code 06/12/2017 2:29 PM 06/12/2017 10:37 PM This order reflects the patients wishes and were consensually agreed upon. Question Answer Comments Discussion of Advance Directives occurred with: Not Discussed Does the patient have a Living Will? No Does the patient have Health Care Power of Link Assembler? No Healthcare Agents on File Name Relationship Healthcare Agent [employer] Communication Juanita Silva Adult Child Health Care Agent Care Teams Digital Ad Trafficker Relationship Specialty Start Date End Date Dhruv Moss MD [address] [place], [place] [address] [address] PCP - General Family Medicine 08/27/21 documented as of this encounter
--- OUTSIDE RECORDS SUMMARY | 2024-02-26 04:40 | External Medical Summary ---
Author Name Unknown Address Unknown Organization K01:[facility] [place] [facility] [address] [facility] [address] [place] [address] Laboratory Report Ordering Provider Test Date Status ANN MUNGUIA 08/30/2023 10:31:00 Final Observation Date Value Abnormality Reference (Units ) Status WBC, Total 08/30/2023 10:31:00 3.88 Below low normal 4.00-10.80 (K/uL) Final RBC 08/30/2023 10:31:00 2.34 3.85-5.15 (M/uL) Final Hemoglobin 08/30/2023 10:31:00 9.8 Below low normal 12.0-15.3 (g/dL) Final HCT 08/30/2023 10:31:00 29.4 Below low normal 36.0-45.2 (%) Final MCV 08/30/2023 10:31:00 125.6 81.5-97.5 (fL) Final MCH 08/30/2023 10:31:00 41.9 27.0-34.0 (pg) Final MCHC 08/30/2023 10:31:00 33.3 32.0-36.0 (g/dL) Final RDW 08/30/2023 10:31:00 14.5 11.5-15.5 (%) Final Platelets 08/30/2023 10:31:00 21 Below low normal 140-400 (K/uL) Final MPV 08/30/2023 10:31:00 11.1 6.6-11.1 (fL) Final Nucleated erythrocytes/100 leukocytes [Ratio] in Blood by Automated count 08/30/2023 10:31:00 0 <=0 (/100 WBCs) Final Performing Location [facility] [place] [address] [place] [address]
--- OUTSIDE RECORDS SUMMARY | 2024-02-26 04:40 | External Medical Summary | Summary of Care ---
Author Name Unknown Organization [facility] Address [address] [place] [address] Phone [phone] Care Team Providers Care Crate Opener Name Role Phone Dhruv Moss MD Primary Care Provide r Reason for Visit * Reason Onset Date Comments Test Results Lab 09/01/2023 Encounter Details Date Type Department Care Team Description 09/01/2023 Telephone Hematology/Oncology [facility] [place] [address] [facility] [place] [address] Jitendra Aguero MD [address] [place] [facility] [place] [address] Test Results Lab Allergies No known active allergiesdocumented as of this encounter (statuses as of 09/01/2023) Medications Medication Sig Dispensed Refills Start Date [...] for Nausea. 60 Tablet 3 12/09/2021 Active in3DepthToJebbit Delica Lancets 30GIndications:Type 2 diabetes mellitus with hemoglobin A1c goal of less than 8.0% ([facility]) Use to test blood sugar three times a day DXe11.9 300 Each 3 12/16/2021 Active in3DepthTouch Verio In Vitro Strip (Glucose Blood)Indications:Ty pe 2 diabetes mellitus with hemoglobin A1c goal of less than 8.0% ([facility]) Use to test blood sugar three times a day DXe11.9 300 Strip 3 12/16/2021 Active in3DepthToJebbit Verio Flex System w/Device Kit Use as directed . 0 12/16/2021 Active Magnesium 100 MG Oral TabletIndications:bowers pplement Take 1 Tablet by mouth in the morning. Pt states every 3 days. 0 Active Acetaminophen 500 MG Oral Tablet Take 1 Tablet by mouth every 6 hours as needed. 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 Date of Transplant: 09/01/2021 Conditioning Regimen: Fludarabine / Busulfan 2 with post-transplant Cytoxan ABO/Rh: A Positive CMV status: CMV Positive--- GRID: [id number] / DID: [id number] Matched Unrelated 10/24--- DPB1 Match ABO/Rh: A Positive CMV status: Negative Problem Noted Date S/P right hip fracture 06/12/2023 Neutropenia 06/05/2023 Symptomatic stenosis of right carotid ar suzette without infarction 05/24/2023 Overview: 05/24/23=50-69% on right and <50% on left. Repeat 1 year Acute cystitis without hematuria 023 Last Assessment & Plan: Given history of urosepsis, will opt to treat with Keflex 500 mg p.o. 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 No additional discussions occurred today due to time constrictions. Neuropathy due to chemotherapeutic drug 02/28/2022 Type 2 diabetes mellitus with retinopath y without macular edema 02/28/2022 Dehydration 09/24/2021 H/O allogeneic bone marrow transplant Hypomagnesemia 07/27/2021 Stem cells transplant status 07/25/2021 Gastro-esophageal reflux disease without esophagitis 06/01/2021 Last Assessment & Plan: Stable with patient currently asymptomatic Patient is taking Prilosec 20 mg twice daily Assessment/plan: Stable GERD. Patient will continue on current dose of Prilosec. Iron overload, transfusional 02/26/2021 MDS (myelodysplastic syndrome), high gra de 07/27/2020 Last Assessment & Plan: Currently in relapse. Hemoglobin yesterday 8.8. Platelets 54150. - weekly CBC. Transfusion to maintain above hemoglobin of 8 Microalbuminuria due to type 2 diabetes mellitus 10/30/2019 Insulin-requiring or dependent type II d iabetes mellitus 07/23/2018 Recurrent major depressive disorder, in partial remission 07/23/2018 Last Assessment & Plan: Stable -continue venlafaxine Coronary artery disease invo lving [place] coronary artery of [place] heart without angina pectoris 06/12/2017 Overview: S/P EDIL to LAD on 06/12/17 Last Assessment & Plan: No angina - Continue atorvastatin, isosorbide, metoprolol - no ASA due to thrombocytopenia Dyslipidemia, goal LDL below 70 11/25/19 Last Assessment & Plan: Patient having no issues. She continues on Lipitor 40 mg daily Last lab I will was that I can find were from [id number] Assessment/plan: Dyslipidemia with patient currently taking Lipitor 40 mg daily without any issues. Recommend that patient levels drawn at next lab draw Type 2 diabetes mellitus with hemoglobin A1c [...] Plan: Continue Synthroid Generalized osteoarthritis of multiple s ites 12/01/2009 HTN, goal below 140/90 Last Assessment & Plan: BP stable. - continue medication regimen as noted above. documented as of this encounter (statuses as of 09/01/2023) Resolved Problems Problem Noted Date Resolved Date Candidiasis, esophageal 03/10/2022 06/03/20 Last Assessment & Plan: The patient has [...] day 1 Immunodeficiency due to drugs 02/28/2022 Last Assessment & Plan: Chemotherapy has been completed MICHELE (acute kidney injury) 10/27/20212021 Encounter for antineoplastic chemotherapy 202009/21/2021 Esophagitis 09/12/2021 09/21/2021 Type 2 diabetes mellitus wit h hyperglycemia, with long-term current use of insulin 08/30/2021 06/03/2022 Last Assessment & Plan: Is aPatient currently [...] draw Pancytopenia 07/27/2021 06/03/2022 Febrile neutropenia 07/27/2021 06/03/2022 COVID-19 virus infection 07/25/2021 022 Myelodysplastic syndrome 06/09/2020 020 Type 2 diabetes mellitus wit h mild nonproliferative diabetic retinopathy with macular edema, left eye 04/23/2019 06/03/2022 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 12/20/19 19 S/P primary angioplasty with coronary stent 05/1504/23/2019 Overview: EDIL to LAD on 06/12/17 Venous stasis dermatitis of both lower extremiti es 07/04/2016 12/20/2018 Does not have health insurance 10/25/2012 0 05/01/2013 Depression 12/01/2009 07/23/2018 HYPERTENSION NOS 12/25/2013 MIGRAINE, UNSPECIFIED, WITHO UT MENTION OF INTRACTABLE MIGRAINE 07/23/2018 documented as of this encounter (statuses as of 09/01/2023) Immunizations Name Administration Dates Next Due COVID-19 [...] drink = 0.6 oz pur e alcohol) Food Insecurity Answer Date Recorded Within the past 12 months, y ou worried that your food would run out before you got money to buy more. Never true 12/12/2022 Within the past 12 months, t he food you bought just didn't last and you didn't have money to get more. Never true 12/12/2022 Sex Assigned at Date Recorded Female 12/12/2022 2:[address] Job Start Date Occupation Industry Not on [...] Miscellaneous Notes * Telephone Encounter - Earnestine JELENA Perla - 09/01/2023 9:07 AM EDT Called patient to notify by phone, she verbalizes understanding. Mobile lab scheduled for 09/06/23,lab order already entered. ----- Message from Jitendra Aguero MD sent at 09/01/2023 7:27 AM EDT ----- Blood workup done on 08/30/2023: -WBC 3800, H&H of 9.8/29.4, Platelet count 55122 -ANC 1100, Absolute lymphocyte count 2200 Overall stable pancytopenia No need for Platelet transfusion Repeat CBCD in 1 week. documented in this encounter Plan of Treatment Upcoming Encounters Date Type Specialty Care Team Description 09/06/2023 Laboratory [facility] [address] [place] [address] 09/13/2023 Laboratory [facility] [address] [place] [address] 09/20/2023 Laboratory Laboratory [facility] [address] [place] [address] 09/21/2023 Immunization/Injection Hematology Oncolog y Nurse, Med [address] [place] [address] 09/27/2023 Laboratory Laboratory [facility] [address] [place] [address] 09/27/2023 [facility] Visit [facility] Pacheco, RN [address] [facility] [address] 10/02/2023 Office Visit [address] [place] [address] 10/04/2023 Laboratory Laboratory [facility] [address] [place] [address] 10/11/[address] [facility] Home Draw [address] [place] [address] 10/18/[address] [facility] Draw [address] [place] [address] 10/25/[address] [facility] Draw [address] [place] [address] 12/14/2023 Nurse Only Ancillary [place], Nurse Annual [address] [place] [address] 12/26/2023 Office Visit Hematology Oncology Jitendra Aguero MD [address] [place] [address] 01/02/2024 Office Visit Family Medicine Dhruv Moss MD [address] [place] [address] [place] [address] 07/03/2024 Imaging Radiology Scheduled Procedures Name Priority Associated Diagnoses Date/Ti me COLONOSCOPY FLEXIBLE PROXIMA L DIAGNOSTIC Recall Encounter for screening colonoscopy Health Maintenance Due Date Last Done Comments Albumin/Creatinine Ratio 03/08/20232 022, 10/29/2019, 08/13/2018, Additional history exists HbA1c [...] this encounter Medical Devices Implanted Type Area Plumbing Contractor Device Identifier Shelf Expiration Date Model / Serial / Lot Port Pwr Mri Isp Profile - [id number] Implanted:Qty: 1 on 07/24/2020 by Akash Castillo MD at OR [facility] Right: Chest CR BARD : PERIPHERAL VASCULAR 04/12/2021 [id number] / / [id number] documented as of this encounter Advance Directives [...] the patient have Health Care Power of Anti Tank [place]ileman? No Code Status History Code Status Date Activated Date Inactivated Comments Full Code 07/27/2021 7:04 PM 07/31/2021 5:19 PM This order reflects the patients wishes and were consensually agreed upon. Question Answer Comments Discussion of Advance Directives occurred with: Patient Does the patient have a Living Will? No Does the patient have Health Care Power of Anti Tank [place]? No Full Code 07/25/2021 12:43 PM 07/25/2021 11:03 PM Thi s order reflects the patients wishes and were consensually agreed upon. Question Answer Comments Discussion of Advance Directives occurred with: Patient/Family Does the patient have a Living Will? No Does the patient have Health Care Power of Anti Tank [place]? No Full Code 06/12/2017 2:29 PM 06/12/2017 10:37 PM This order reflects the patients wishes and were consensually agreed upon. Question Answer Comments Discussion of Advance Directives occurred with: Not Discussed Does the patient have a Living Will? No Does the patient have Health Care Power of Anti Tank [place]ileman? No Healthcare Agents on File Name Relationship Healthcare Agent [facility] p Communication Juanita Silva Adult Child Health Care Agent Care Teams Crate Opener Relationship Specialty Start Date End Date Dhruv Moss MD [address] [place] [id number] PCP - General Family Medicine 08/27/21 documented as of this encounter
--- OUTSIDE RECORDS SUMMARY | 2024-02-26 04:40 | External Medical Summary ---
Author Name Unknown Address Unknown Organization K01:LABORATORY C - [address] [facility] [place] [address] Laboratory Report Ordering Provider Test Date Status ANN MUNGUIA 09/06/2023 08:27:00 Final Observation Date Value Abnormality Reference (Units ) Status SYNC LEUKOCYTES IN BLOOD BY AUTOMATED COUNT 09/06/2023 08:27:00 3.67 Below low normal 4.00-10.80 (K/uL) Final Neutrophils/100 leukocytes in Blood by Manual count 09/06/2023 08:27:00 25.0 Below low normal 40.0-75.0 (%) Final Lymphocytes/100 leukocytes in Blood by Manual count 09/06/2023 08:27:00 70.0 Above high normal 18.0-42.0 (%) Final Monocytes/100 leukocytes in Blood by Manual count 09/06/2023 08:27:00 3.0 1.0-11.0 (%) Final Eosinophils/100 leukocytes in Blood by Manual count 09/06/2023 08:27:00 2.0 0.0-6.0 (%) Final Neutrophils [#/volume] in Blood by Manual count 09/06/2023 08:27:00 0.92 Below low normal 1.80-7.70 (K/uL) Final Lymphocytes [#/volume] in Blood by Manual count 09/06/2023 08:27:00 2.57 1.00-4.80 (K/uL) Final Monocytes [#/volume] in Blood by Manual count 09/06/2023 08:27:00 0.11 0.00-1.10 (K/uL) Final Eosinophils [#/volume] in Blood by Manual count 09/06/2023 08:27:00 0.07 0.00-0.70 (K/uL) Final Variant lymphocytes [Presence] in Blood by Light microscopy 09/06/2023 08:27:00 Present Abnormal None Seen Final Toxic granules [Presence] in Blood by Light microscopy 09/06/2023 08:27:00 Moderate Abnormal None Seen Final Neutrophils.vacuolat ed [Presence] in Blood by Light microscopy 09/06/2023 08:27:00 Present Abnormal None Seen Final Performing Location [facility] - [address] [facility] [address]
--- OUTSIDE RECORDS SUMMARY | 2024-02-26 04:40 | External Medical Summary ---
Author Name Unknown Address Unknown Organization K01:LABORATORY [facility] - [facility] [address] [place] [address] Laboratory Report Ordering Provider Test Date Status ANN MUNGUIA 09/06/2023 08:27:00 Final Observation Date Value Abnormality Reference (Units ) Status WBC, Total 09/06/2023 08:27:00 3.67 Below low normal 4.00-10.80 (K/uL) Final RBC 09/06/2023 08:27:00 2.30 3.85-5.15 (M/uL) Final Hemoglobin 09/06/2023 08:27:00 9.2 Below low normal 12.0-15.3 (g/dL) Final HCT 09/06/2023 08:27:00 28.2 Below low normal 36.0-45.2 (%) Final MCV 09/06/2023 08:27:00 122.6 81.5-97.5 (fL) Final MCH 09/06/2023 08:27:00 40.0 27.0-34.0 (pg) Final MCHC 09/06/2023 08:27:00 32.6 32.0-36.0 (g/dL) Final RDW 09/06/2023 08:27:00 14.2 11.5-15.5 (%) Final Platelets 09/06/2023 08:27:00 18 Below lower panic limits 140-400 (K/uL) Final MPV 09/06/2023 08:27:00 11.0 6.6-11.1 (fL) Final Nucleated erythrocytes/100 leukocytes [Ratio] in Blood by Automated count 09/06/2023 08:27:00 0 <=0 (/100 WBCs) Final Performing Location LABORATORY [facility] - [address] [place] [address]
--- OUTSIDE RECORDS SUMMARY | 2024-02-26 04:40 | External Medical Summary | Summary of Care ---
Author Name Unknown Organization [facility] Address [address] [place] [facility] [place] [address] Phone [phone] Care Team Providers Care Weigher Alloy Name Role Phone Dhruv Moss MD Primary Care Provide r Reason for Visit * Reason Onset Date Comments Test Results Lab 09/14/2023 Encounter Details Date Type Department Care Team (Late st Contact Info) Description 09/14/2023 Telephone Hematology/Oncology [facility] [place] [address] [place] [address] Jitendra Aguero MD [address] [facility] [place] [address] Test Results Lab Allergies No known active allergiesdocumented as of this encounter (statuses as of 09/14/2023) Medications Medication Sig Dispensed Refills Start Date [...] for Nausea. 60 Tablet 3 12/09/2021 Active SquabblerTouch Delica Lancets 30GIndications:Type 2 diabetes mellitus with hemoglobin A1c goal of less than 8.0% ([facility]) Use to test blood sugar three times a day DXe11.9 300 Each 3 12/16/2021 Active SquabblerTouch Verio In Vitro Strip (Glucose Blood)Indications:Ty pe 2 diabetes mellitus with hemoglobin A1c goal of less than 8.0% ([facility]) Use to test blood sugar three times a day DXe11.9 300 Strip 3 12/16/2021 Active SquabblerTouch Verio Flex System w/Device Kit Use as directed . 0 12/16/2021 Active Magnesium 100 MG Oral TabletIndications:bowers pplement Take 1 Tablet by mouth in the morning. Pt states every 3 days. 0 Active Acetaminophen 500 MG Oral Tablet Take 1 Tablet by mouth every 6 hours as needed. 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 Date of Transplant: 09/01/2021 Conditioning Regimen: Fludarabine / Busulfan 2 with post-transplant Cytoxan ABO/Rh: A Positive CMV status: CMV Positive--- GRID: [id number] [id number] / DID: [id number] Matched Unrelated 10/24--- DPB1 Match ABO/Rh: A [...] Thrombocytopenia 12/06/2022 Last Assessment & Plan: Platelets 35171 on 03/20 Questionable hematuria Urinary incontinence 09/12/2022 [...] Currently in relapse. Hemoglobin yesterday 8.8. Platelets 61475. - weekly CBC. Transfusion to maintain above hemoglobin of 8 Microalbuminuria due to type 2 diabetes mellitus 10/30/2019 Insulin-requiring or dependent type II diabetes mellitus 07/23/2018 Recurrent major depressive disorder, in partial remission 07/23/2018 Last Assessment & Plan: Stable -continue venlafaxine Coronary artery disease invo lving [place] coronary artery of bill [place] heart without angina pectoris 06/12/2017 Overview: S/P EDIL to LAD on 06/12/17 Last Assessment & Plan: No angina - Continue atorvastatin, isosorbide, metoprolol - no ASA due to thrombocytopenia Dyslipidemia, goal LDL below 70 11/25/2011 Last Assessment & Plan: Patient having no issues. She continues on Lipitor 40 mg daily Last lab I will was that I can find were from [phone] Assessment/plan: Dyslipidemia with patient currently taking Lipitor [...] as of this encounter (statuses as of 09/14/2023) Resolved Problems Problem Noted Date Diagnosed Date [...] as of this encounter (statuses as of 09/14/2023) Immunizations Name Administration Dates Next Due COVID-19 [...] Telephone Encounter - Earnestine Perla LPN - 09/14/2023 9:04 AM EDT Notified patient by phone, patient verbalizes understanding. Lab order for cbcd already entered ----- Message from Jitendra Aguero MD sent at 09/14/2023 6:32 AM EDT ----- Blood workup done on 09/13/2023: - WBC 4300, H&H of 10.3/31.5 completed count 23,000. No need for blood transfusion. Repeat CBCD in one week. documented in this encounter Plan of Treatment Upcoming Encounters Date Type Department Care Team (Late st Contact Info) Description 09/20/2023 9:00 AM EST Laboratory Lab Mobile Phlebotomy [facility] [address] [place] [address] [facility] Mobile Home Draw [address] [place] [address] 09/21/2023 2:00 PM EST Immunization/Injectio n Hematology/Oncology Treatment, [place] [address] [place] [address] Nurse, Med 4 [address] [place] [address] 09/27/2023 9:00 AM EST Laboratory Lab Mobile Phlebotomy [facility] [address] [place] [address] [facility], [facility] Mobile Home Draw [address] [place] [address] 09/27/2023 11:30 AM EST Home Visit [facility], [facility] [address] [place] [address] Marisa Pacheco, TANYA [address] [place] [address] 10/02/2023 1:00 PM EST Office Visit Pharmacy, [address] [place] [address] [place] [address] 10/04/2023 9:00 AM EST Laboratory Lab Mobile Phlebotomy [facility] [address] [place] [address] [facility] Draw [address] [place] [address] 10/11/2023 9:00 AM EST Laboratory Lab Mobile Phlebotomy [facility] [address] [place] [address] [facility] Draw [address] [place] [address] 10/18/2023 9:00 AM EST Laboratory Lab Mobile Phlebotomy [facility] [address] [place] [address] [facility] Draw [address] [place] [address] 10/25/2023 9:00 AM EST Laboratory Lab Mobile Phlebotomy [facility] [address] [place] [address] [facility], [facility] Draw [address] [place] [address] 12/14/2023 2:00 PM EST Nurse Only Ancillary [address] [place] [address] [place], Nurse [address] [place] [address] 12/26/2023 11:15 AM EST Office Visit Hematology/Oncology [facility] [address] [place] [address] Jitendra Aguero MD [address] [place] [address] 01/02/2024 2:20 PM EST Office Visit Family Medicine [address] [place] [phone] Dhruv Moss MD [address] [place] [address] [place] [address] 07/03/2024 1:30 PM EDT Imaging Radiology [address] [place] [address] Scheduled Procedures Name Priority Associated Diagnoses Date/Ti [...] encounter Medical Devices Implanted Type Area Manager Biostatistics Device Identifier Shelf Expiration Date Model / Serial / Lot Port Pwr Mri Isp Profile - [id number] Implanted:Qty: 1 on 07/24/2020 by Akash Castillo MD at OR [facility] Right: Chest CR BARD : PERIPHERAL VASCULAR 04/12/2021 [id number] / / [id number] documented as of this encounter Advance Directives [...] the patient have Health Care Power of Newspaper Editor Managing? No Code Status History Code Status Date Activated Date Inactivated Comments Full Code 07/27/2021 7:04 PM 07/31/2021 5:19 PM This order reflects the patients wishes and were consensually agreed upon. Question Answer Comments Discussion of Advance Directives occurred with: Patient Does the patient have a Living Will? No Does the patient have Health Care Power of Newspaper Editor Managing? No Full Code 07/25/2021 12:43 PM 07/25/2021 11:03 PM Thi s order reflects the patients wishes and were consensually agreed upon. Question Answer Comments Discussion of Advance Directives occurred with: Patient/Family Does the patient have a Living Will? No Does the patient have Health Care Power of Newspaper Editor Managing? No Full Code 06/12/2017 2:29 PM 06/12/2017 10:37 PM This order reflects the patients wishes and were consensually agreed upon. Question Answer Comments Discussion of Advance Directives occurred with: Not Discussed Does the patient have a Living Will? No Does the patient have Health Care Power of Newspaper Editor Managing? No Healthcare Agents on File Name Relationship Healthcare Agent [facility] p Communication Juanita Silva Adult Child Health Care Agent Care Teams Weigher Alloy Relationship Specialty Start Date End Date Dhruv Moss MD [address] [facility] [place] [address] PCP - General Family Medicine 08/27/21 documented as of this encounter
--- OUTSIDE RECORDS SUMMARY | 2024-02-26 04:40 | External Medical Summary | Summary of Care ---
Author Name Unknown Organization [facility] Address [address] [place] [address] Phone [phone] Care Team Providers Care Care Clinician Name Role Phone Dhruv Moss MD Primary Care Provide r Reason for Visit * Reason Comments eRx-Medication Refill Encounter Details Date Type Department Care Team (Late st Contact Info) Description 09/09/2023 Refill Family Medicine [address] [phone] Dhruv Moss MD [address] [place] [address] [place] [address] Postoperative hypothyroidism Allergies No known active allergiesdocumented as of this encounter (statuses as of 09/10/2023) Medications Medication Sig Dispensed Refills Start Date End Date Status Cholecalciferol (VITAMIN D3) 5000 UNITS TabletIndications:s upplement Take 1 Tablet by mouth in the morning. 0 5 Active BD Pen Needle Mini U/F 31G X 5 MM (Insulin Pen Needle)Indications: Type 2 diabetes mellitus with hemoglobin A1c goal of less than 8.0% ([facility]) Use with xultophy once a day dx [...] for Nausea. 60 Tablet 3 2 Active I[employer]ix PharmaceuticalsTouch Delica Lancets 30GIndications:Type 2 diabetes mellitus with hemoglobin A1c goal of less than 8.0% ([facility]) Use to test blood sugar three times a day DXe11.9 300 Each 3 2 Active [employer] Verio In Vitro Strip (Glucose Blood)Indications:T ype 2 diabetes mellitus with hemoglobin A1c goal of less than 8.0% ([facility]) Use to test blood sugar three times a day DXe11.9 300 Strip 3 2 Active [employer]Touch Verio Flex System w/Device Kit Use as directed . 0 2 Active Magnesium 100 MG Oral TabletIndications:s upplement Take 1 Tablet by mouth in the morning. Pt states every 3 days. 0 Active Acetaminophen 500 MG Oral Tablet Take 1 Tablet by mouth every 6 hours as needed. 0 Active Nystatin 210080 UNIT/GM External Cream Apply topically to affected [...] 24 Hour (Imdur)Indications: Coronary artery disease involving [place] coronary artery of [place] heart without angina pectoris,HTN, goal below 140/90 [...] Other (pain). 30 Tablet 0 3 Active Venlafaxine HCl ER 150 MG Oral Capsule Extended Release 24 Hour (Effexor XR)Indications:Recu rrent major depressive disorder, in partial remission (HCC) TAKE 1 CAPSULE BY MOUTH ONCE DAILY . 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 Date of Transplant: 09/01/2021 Conditioning Regimen: Fludarabine / Busulfan 2 with post-transplant Cytoxan ABO/Rh: A Positive CMV status: CMV Positive--- GRID: [id number] / [id number]: [id number] Matched Unrelated 10/24--- DPB1 Match ABO/Rh: A [...] Thrombocytopenia 12/06/2022 Last Assessment & Plan: Platelets 43519 on 03/20 Questionable hematuria Urinary incontinence 09/12/2022 [...] Currently in relapse. Hemoglobin yesterday 8.8. Platelets 02924. - weekly CBC. Transfusion to maintain above hemoglobin of 8 Microalbuminuria due to type 2 diabetes mellitus 10/30/2019 Insulin-requiring or dependent type II diabetes mellitus 07/23/2018 Recurrent major depressive disorder, in partial remission 07/23/2018 Last Assessment & Plan: Stable -continue venlafaxine Coronary artery disease invo lving kwethluk coronary artery of [place] heart without angina pectoris 06/12/2017 Overview: S/P EDIL to LAD on 06/12/17 Last Assessment & Plan: No angina - Continue atorvastatin, isosorbide, metoprolol - no ASA due to thrombocytopenia Dyslipidemia, goal LDL below 70 11/25/2011 Last Assessment & Plan: Patient having no issues. She continues on Lipitor 40 mg daily Last lab I will was that I can find were from [phone] Assessment/plan: Dyslipidemia with patient currently taking Lipitor [...] as of this encounter (statuses as of 09/10/2023) Resolved Problems Problem Noted Date Diagnosed Date [...] as of this encounter (statuses as of 09/10/2023) Immunizations Name Administration Dates Next Due COVID-19 mRNA, LNP-s, No Pre serve, 2-Dose Series ([email or web address]) 02/05/2021,01/08/2021 COVID-19, LNP-s, No Preserve , Ye-sucrose, [...] encounter Miscellaneous Notes * Telephone Encounter - Shaka Traore brayan - 09/10/2023 3:45 PM EDT Signed Prescriptions: Disp Refills Levothyroxine Sodium 75 MCG Oral Tablet (L*90 Tab*0 Sig: TAKE ONE TABLET BY MOUTH daily first thing in the morning at least 30 minutes prior to breakfast or other medsAuthorizing Provider: DHRUV MOSS User: SHAKA TRAORE documented in this encounter Plan of Treatment Upcoming Encounters Date Type Department Care Team (Late st Contact Info) Description 09/13/2023 9:00 AM EDT Laboratory Lab [place] [address] [place] [address] [facility], [facility] Mobile Home Draw [address] [place] [address] 09/20/2023 9:00 AM EST Laboratory Lab Mobile [facility]bot[facility] [address] [place] [address] [facility], [facility] Home Draw [address] [place] [address] 09/21/2023 2:00 PM EST Immunization/Injectio n Hematology/Oncology Treatment, [place] [address] [place] [address] Nurse, Med [address] [place] [address] 09/27/2023 9:00 AM EST Laboratory Lab Mobile [place]lebot[facility] [address] [place] [address] [facility], [facility] Mobile Home Draw [address] [place] [address] 09/27/2023 11:30 AM EST Home Visit [facility], [facility] [address] [facility] [place] [address] Marisa Pacheco, TANYA [address] [facility] [place] [address] 10/02/2023 1:00 PM EST Office Visit Pharmacy, [address] [place] [phone] [place] [address] 10/04/2023 9:00 AM EST Laboratory Lab Mobile [facility]bot[facility] [address] [place] [address] [facility], [facility] Draw [address] [place] [address] 10/11/2023 9:00 AM EST Laboratory Lab Mobile [facility]lebot[facility] [address] [place] [address] [facility], [facility] Mobile Home Draw [address] [place] [address] 10/18/2023 9:00 AM EST Laboratory Lab Mobile Phlebotomy [facility] [address] [place] [address] [facility], [facility] Mobile Home Draw [address] [place] [address] 10/25/2023 9:00 AM EST Laboratory Lab Mobile [facility]lebot[facility] [address] [place] [address] [facility], [facility] Mobile Home Draw [address] [place] [address] 12/14/2023 2:00 PM EST Nurse Only Ancillary [address] [place] [address] Cristina, Nurse [address] [place] [address] 12/26/2023 11:15 AM EST Office Visit Hematology/Oncology [facility] [address] [facility] [place] [address] Jitendra Aguero MD [address] [place] [address] 01/02/2024 2:20 PM EST Office Visit Family Medicine [address] [place] [phone] Dhruv Moss MD [address] [place] [address] [place] [address] 07/03/2024 1:30 PM EDT Imaging Radiology [address] [place] [address] Scheduled Procedures Name Priority Associated Diagnoses Date/Ti me COLONOSCOPY FLEXIBLE PROXIMA L DIAGNOSTIC Recall Encounter for screening colonoscopy Health Maintenance Due Date Last Done Comments Hepatitis B (1 of 3 - Risk 3-dose series) 2008 Albumin/Creatinine Ratio 03/08/20232 022, 10/29/2019, 08/13/2018, Additional [...] this encounter Medical Devices Implanted Type Area Portainer Operator Device Identifier Shelf Expiration Date Model / Serial / Lot Port Pwr Mri Isp Profile - [id number] Implanted:Qty: 1 on 07/24/2020 by Akash Castillo MD at OR [facility] Right: Chest CR BARD : PERIPHERAL VASCULAR 04/12/2021 [id number] / / [id number] documented as of this encounter Visit Diagnoses [...] the patient have Health Care Power of Senior C Software Engineer? No Code Status History Code Status Date Activated Date Inactivated Comments Full Code 07/27/2021 7:04 PM 07/31/2021 5:19 PM This order reflects the patients wishes and were consensually agreed upon. Question Answer Comments Discussion of Advance Directives occurred with: Patient Does the patient have a Living Will? No Does the patient have Health Care Power of Senior C Software Engineer? No Full Code 07/25/2021 12:43 PM 07/25/2021 11:03 PM Thi s order reflects the patients wishes and were consensually agreed upon. Question Answer Comments Discussion of Advance Directives occurred with: Patient/Family Does the patient have a Living Will? No Does the patient have Health Care Power of Senior C Software Engineer? No Full Code 06/12/2017 2:29 PM 06/12/2017 10:37 PM This order reflects the patients wishes and were consensually agreed upon. Question Answer Comments Discussion of Advance Directives occurred with: Not Discussed Does the patient have a Living Will? No Does the patient have Health Care Power of Senior C Software Engineer? No Healthcare Agents on File Name Relationship Healthcare Agent [facility] Child Health Care Agent Care Teams Care Clinician Relationship Specialty Start Date End Date Dhruv Moss MD [address] [place], [place] [address] [id number] PCP - General Family Medicine 08/27/21 documented as of this encounter
--- OUTSIDE RECORDS SUMMARY | 2024-02-26 04:40 | External Medical Summary ---
Author Name Unknown Address Unknown Organization [id number]:LAB[facility]ATORY [facility] - [address] [facility] [place] [address] Laboratory Report Ordering Provider Test Date Status ANN MUNGUIA 09/13/2023 08:19:00 Final Observation Date Value Abnormality Reference (Units ) Status SYNC LEUKOCYTES IN BLOOD BY AUTOMATED COUNT 09/13/2023 08:19:00 4.30 4.00-10.80 (K/uL) Final Neutrophils/100 leukocytes in Blood by Manual count 09/13/2023 08:19:00 19.0 Below low normal 40.0-75.0 (%) Final Lymphocytes/100 leukocytes in Blood by Manual count 09/13/2023 08:19:00 77.0 Above high normal 18.0-42.0 (%) Final Monocytes/100 leukocytes in Blood by Manual count 09/13/2023 08:19:00 2.0 1.0-11.0 (%) Final Eosinophils/100 leukocytes in Blood by Manual count 09/13/2023 08:19:00 2.0 0.0-6.0 (%) Final Neutrophils [#/volume] in Blood by Manual count 09/13/2023 08:19:00 0.82 Below low normal 1.80-7.70 (K/uL) Final Lymphocytes [#/volume] in Blood by Manual count 09/13/2023 08:19:00 3.31 1.00-4.80 (K/uL) Final Monocytes [#/volume] in Blood by Manual count 09/13/2023 08:19:00 0.09 0.00-1.10 (K/uL) Final Eosinophils [#/volume] in Blood by Manual count 09/13/2023 08:19:00 0.09 0.00-0.70 (K/uL) Final Variant lymphocytes [Presence] in Blood by Light microscopy 09/13/2023 08:19:00 Present Abnormal None Seen Final Neutrophils.vacuolate d [Presence] in Blood by Light microscopy 09/13/2023 08:19:00 Present Abnormal None Seen Final Performing Location [facility] [place] - [address] [place] [address]
--- OUTSIDE RECORDS SUMMARY | 2024-02-26 04:40 | External Medical Summary ---
Author Name Unknown Address Unknown Organization [id number]:[facility] - [address] [place] [address] Laboratory Report Ordering Provider Test Date Status ANN MUNGUIA 08/30/2023 10:31:00 Final Observation Date Value Abnormality Reference (Units ) Status SYNC LEUKOCYTES IN BLOOD BY AUTOMATED COUNT 08/30/2023 10:31:00 3.88 Below low normal 4.00-10.80 (K/uL) Final Neutrophils/100 leukocytes in Blood by Manual count 08/30/2023 10:31:00 30.0 Below low normal 40.0-75.0 (%) Final Lymphocytes/100 leukocytes in Blood by Manual count 08/30/2023 10:31:00 57.0 Above high normal 18.0-42.0 (%) Final Monocytes/100 leukocytes in Blood by Manual count 08/30/2023 10:31:00 10.0 1.0-11.0 (%) Final Eosinophils/100 leukocytes in Blood by Manual count 08/30/2023 10:31:00 3.0 0.0-6.0 (%) Final Neutrophils [#/volume] in Blood by Manual count 08/30/2023 10:31:00 1.16 Below low normal 1.80-7.70 (K/uL) Final Lymphocytes [#/volume] in Blood by Manual count 08/30/2023 10:31:00 2.21 1.00-4.80 (K/uL) Final Monocytes [#/volume] in Blood by Manual count 08/30/2023 10:31:00 0.39 0.00-1.10 (K/uL) Final Eosinophils [#/volume] in Blood by Manual count 08/30/2023 10:31:00 0.12 0.00-0.70 (K/uL) Final Variant lymphocytes [Presence] in Blood by Light microscopy 08/30/2023 10:31:00 Present Abnormal None Seen Final Performing Location [facility] - [address] [facility] [address]
--- OUTSIDE RECORDS SUMMARY | 2024-02-26 04:40 | External Medical Summary ---
Author Name Unknown Address Unknown Organization [id number]:LABORATORY [facility] - [facility] [address] [place] [address] Laboratory Report Ordering Provider Test Date Status ANN MUNGUIA 09/13/2023 08:19:00 Final Observation Date Value Abnormality Reference (Units ) Status WBC, Total 09/13/2023 08:19:00 4.30 4.00-10.80 (K/uL) Final RBC 09/13/2023 08:19:00 2.52 3.85-5.15 (M/uL) Final Hemoglobin 09/13/2023 08:19:00 10.3 Below low normal 12.0-15.3 (g/dL) Final HCT 09/13/2023 08:19:00 31.5 Below low normal 36.0-45.2 (%) Final MCV 09/13/2023 08:19:00 125.0 81.5-97.5 (fL) Final MCH 09/13/2023 08:19:00 40.9 27.0-34.0 (pg) Final MCHC 09/13/2023 08:19:00 32.7 32.0-36.0 (g/dL) Final RDW 09/13/2023 08:19:00 14.0 11.5-15.5 (%) Final Platelets 09/13/2023 08:19:00 23 Below low normal 140-400 (K/uL) Final MPV 09/13/2023 08:19:00 10.5 6.6-11.1 (fL) Final Nucleated erythrocytes/100 leukocytes [Ratio] in Blood by Automated count 09/13/2023 08:19:00 0 <=0 (/100 WBCs) Final Performing Location LABORATORY [facility] - [facility] [address] [place] [address]
--- NOTE | 2024-02-26 04:43 | Emergency Department Note ---
History of Present Illness General Chief complaint: Flu Like Symptoms Stated complaint: FLU LIKE SYMPTOMS Time Seen by Provider: 02/26/24 04:25 History of Present Illness This 73-year-old female presents ER complaining of sore throat, cough, fever, chills and diarrhea for the past week. Patient denies vomiting, abdominal pain, chest pain, dyspnea. She is able to swallow. Home Medications Medication Instructions Recorded Confirmed Type cholecalciferol (vitamin D3) 125 125 mcg PO QAM 06/05/20 02/15/24 History mcg (5,000 unit) tablet (Vitamin D3) insulin detemir U-100 100 unit/mL 22 unit subcut HS 06/05/20 02/15/24 History subcutaneous solution (Levemir U-100 Insulin) insulin regular human 100 unit/mL 0 unit subcut .SLIDING SCALE 06/05/20 02/15/24 History (3 mL) subcutaneous pen (Novolin R FlexPen) isosorbide mononitrate 30 mg 30 mg PO QAM 06/05/20 02/15/24 History tablet,extended release 24 hr metformin 1,000 mg tablet 1,000 mg PO BIDM 06/05/20 02/15/24 History metoprolol succinate 50 mg 50 mg PO QAM 06/05/20 02/15/24 History tablet,extended release 24 hr venlafaxine 150 mg 150 mg PO HS 06/05/20 02/15/24 History capsule,extended release 24 hr (Effexor XR) omeprazole 20 mg capsule,delayed 20 mg PO DAILY 10/13/20 02/15/24 History release tramadol 50 mg tablet 50 mg PO Q6H PRN Pain 10/27/20 02/15/24 History acyclovir 800 mg tablet 800 mg PO BID 04/05/23 02/15/24 History atorvastatin 40 mg tablet 40 mg PO DAILY 04/05/23 02/15/24 History levothyroxine 75 mcg tablet 75 mcg PO DAILY 04/05/23 02/15/24 History mirabegron 50 mg tablet,extended 50 mg PO DAILY 04/05/23 02/15/24 History release 24 hr (Myrbetriq) solifenacin 5 mg tablet 5 mg PO DAILY 04/05/23 02/15/24 History acetaminophen 325 mg tablet 650 mg (2 x 325 mg) PO Q4H PRN 04/08/23 02/15/24 Rx fever or pain #30 tabs polyethylene glycol 3350 17 gram 17 g PO DAILY PRN constipation #14 04/20/23 02/15/24 Rx oral powder packet (Miralax) ea Allergies Allergy/AdvReac Type Severity Reaction Status Date / Time No Known Allergies Allergy Verified 02/15/24 13:25 Past Med/Surg History Medical History Fracture of right hip requiring operative repair Osteoarthritis Myelodysplastic syndrome Depression CAD (coronary artery disease) 2017-EDIL to LAD Hypertension Dyslipidemia Hypothyroidism DM type 2 (diabetes mellitus, type 2) Surgical History History of spinal fusion History of cholecystectomy History of partial hysterectomy H/O tubal ligation H/O dilation and curettage Family History Father Heart disease Mother Heart disease Sister Breast cancer Sister Multiple myeloma Brother Prostate cancer Social History Smoking Status: Never smoker Hx Alcohol Use: No Hx Substance Use: No Preferred Language: Sami Communication Ability: Effective 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: No Beliefs That Will Affect Care: None Current Living Situation: Spouse Feels Safe at Home: Yes Assistive Devices: Walker Review of Systems A total of 10 systems reviewed and were otherwise negative Physical Exam Vital Signs Vital Signs - 24 hr 02/26/24 04:29 02/26/24 04:29 02/26/24 04:29 Temperature 37.3 C 37.3 C Temperature Source Oral Oral Pulse Rate 107 H 107 H Pulse Rate [Apical] 107 H Pulse Rhythm Regular Regular Pulse Rhythm [Apical] Regular Pulse Strength Normal Pulse Strength [Apical] Normal Respiratory Rate 18 18 18 Respiratory Effort / Characteristics Non-Labored Spontaneous Non-Labored Spontaneous Respiratory Depth Normal Normal Respiratory Pattern Regular Regular Blood Pressure 107/68 Blood Pressure [Right Arm] 107/68 Blood Pressure Mean 81 Blood Pressure Mean [Right Arm] 81 Blood Pressure Position Lying Blood Pressure Position [Right Arm] Lying Pulse Oximetry 96 96 96 Oxygen Delivery Method Nasal Cannula Nasal Cannula Nasal Cannula Oxygen Flow Rate 2 Sepsis Recent Fever Within 48 Hours No Sepsis New/Unexplained Change in Mental Status N/A Sepsis Action Taken by Nursing No Action Required 02/26/24 04:34 Temperature Temperature Source Pulse Rate 105 H Pulse Rate [Apical] Pulse Rhythm Pulse Rhythm [Apical] Pulse Strength Pulse Strength [Apical] Respiratory Rate Respiratory Effort / Characteristics Respiratory Depth Respiratory Pattern Blood Pressure Blood Pressure [Right Arm] Blood Pressure Mean Blood Pressure Mean [Right Arm] Blood Pressure Position Blood Pressure Position [Right Arm] Pulse Oximetry Oxygen Delivery Method Oxygen Flow Rate Sepsis Recent Fever Within 48 Hours Sepsis New/Unexplained Change in Mental Status Sepsis Action Taken by Nursing VITALS: Vitals are noted on the nurse's note and reviewed by myself. Vital signs stable. GENERAL: Elderly female speaking in full sentences, in no acute distress, nondiaphoretic, well-developed well-nourished. SKIN: The skin was without rashes, erythema, edema, or bruising. There is no tenting of the skin. Capillary reflex less than 2 seconds. HEAD: Normocephalic atraumatic. EARS: External auditory canals clear EYES: Pupils equal round and reactive to light and accommodation. Conjunctivae without injection, sclerae without icterus. Extraocular movements intact. NOSE: Patent, no discharge. MOUTH: Mucous membranes moist. Pharynx with erythema without exudate.. Uvula midline erythematous and edematous. Airway patent. Tongue does not deviate. NECK: Supple without nuchal rigidity. No lymphadenopathy. No thyromegaly. Cervical spine is nontender. No JVD. HEART: Regular rate and rhythm LUNGS: Clear to auscultation bilaterally without wheezes, rales or rhonchi. No retractions or accessory muscle use. ABDOMEN: Positive bowel sounds x 4. Normal tympanic percussion. Soft, nontender, without masses or organomegaly. Iqbal sign negative. No guarding or rebound tenderness. No CVA tenderness Rectal exam: Brown stool guaiac positive. Nurse Kumar present. MUSCULOSKELETAL: No muscle atrophy, erythema, or edema noted. NEURO: Patient was alert and oriented to person place and time. Normal sensation to light and sharp touch. No focal neurological deficits. Course Administered Medications Magnesium Sulfate/Dextrose (Magnesium Sulfate / D5w) 1 gm in 100 mls @ 100 mls/hr IV Q1H MARIA GUADALUPE Stop: 02/26/24 07:14 Last Admin: 02/26/24 05:30 Dose: 100 mls/hr Documented By: IDD Discontinued Medications Sodium Chloride (Nss) 1,000 mls @ 999 mls/hr IV .Q1H1M ONE Stop: 02/26/24 05:29 Last Admin: 02/26/24 05:30 Dose: 999 mls/hr Documented By: DANIEL Ampicillin Sodium/Sulbactam Sodium 3,000 mg/ Sodium Chloride 100 mls @ 200 mls/hr IV NOW STA Stop: 02/26/24 05:07 Last Admin: 02/26/24 06:07 Dose: 200 mls/hr Documented By: DANIEL Pantoprazole Sodium 80 mg/ (Dextrose) 120 mls @ 480 mls/hr IV ONE STA Stop: 02/26/24 05:30 Last Admin: 02/26/24 06:08 Dose: 480 mls/hr Documented By: DANIEL Famotidine (Pepcid 20mg Iv Push) 20 mg in 5 mls @ 2.5 mls/min IV NOW STA Stop: 02/26/24 05:17 Last Admin: 02/26/24 05:30 Dose: 2.5 mls/min Documented By: DANIEL Ioversol (Optiray 320 100ml) 100 ml IV ONCE ONE Stop: 02/26/24 05:13 Last Admin: 02/26/24 05:12 Dose: 89 ml Documented By: ROBERT Ondansetron HCl (Ondansetron Inj 2 Mg/Ml 2 Ml Vial) 4 mg IV NOW STA Stop: 02/26/24 05:18 Last Admin: 02/26/24 05:30 Dose: 4 mg Documented By: DANIEL Medical Decision Making Medical Records Attestation: I reviewed the patient's medical records. Home Medications Current Medication List: was personally reviewed by me Laboratory Data Attestation: I reviewed the patient's lab results. 02/26/24 04:40 02/26/24 04:40 Lab Results 02/26/24 02/26/24 02/26/24 Range/Units 04:30 04:40 05:01 WBC 21.18 H (4.8-10.8) K/ul RBC 1.97 L (4.20-5.40) M/uL Hgb 7.9 L (12.0-16.0) g/dl POC Hgb 7.5 L (12.0-16.0) g/dl Hct 23.8 L (37.0-47.0) % POC Hct 22 L (37-47) % MCV 120.8 H (80.0-100.0) fL MCH 40.1 H (25.0-34.0) pg MCHC 33.2 (32.0-36.0) g/dL RDW Std Deviation 64.2 H (36.4-46.3) fL RDW Coeff of Evin 14.8 H (11.5-14.5) % Plt Count 10 L* (130-400) K/uL MPV 13.1 H (9.4-12.4) fL POC Sodium 139 (135-144) mmol/L Sodium 137 (136-145) mmol/L POC Potassium 3.6 (3.3-5.0) mmol/L Potassium 3.6 (3.5-5.1) mmol/L POC Chloride 105 (101-112) mmol/L Chloride 105 (98-107) mmol/L Carbon Dioxide 23 (21-32) mmol/L POC Total CO2 23 L (24-31) mmol/L Anion Gap 9 (3-11) POC Anion Gap 15.0 L (16-25) mmol/L POC BUN 20 H (7-18) mg/dl BUN 21 (6-23) mg/dl Creatinine 1.03 (0.6-1.2) mg/dl POC Creatinine 1.0 (0.6-1.3) mg/dl Est Cr Clr Drug Dosing 44.9 ml/min Est GFR ( Amer) 61.6 ml/min Est GFR (Non-Af Amer) 53.1 ml/min BUN/Creatinine Ratio 20.4 H (10-20) Glucose 255 H (70-99(Fasting)) mg/dl POC Glucose (other) 257 H (70-99) mg/dl Lactate 1.7 (0.4-2.0) mmol/L Calcium 8.4 L (8.6-10.3) mg/dl POC Ioniz Calcium Dalila 1.10 L (1.12-1.32) mmol/l Magnesium 1.0 L (1.7-2.4) mg/dl Total Bilirubin 0.5 (0.2-1.0) mg/dl Direct Bilirubin 0.1 (0-0.2) mg/dl AST 12 L (13-39) U/L ALT 17 (7-52) U/L Alkaline Phosphatase 73 (34-104) U/L Troponin I High Sens 13.8 (0-14) pg/ml Total Protein 7.0 (6.0-8.3) gm/dl Albumin 3.8 (3.4-5.0) gm/dl Adenovirus (PCR) Not Detected (NotDetected) B. pertussis DNA (PCR) Not Detected (NotDetected) B.parapertussis DNA PCR Not Detected (NotDetected) C. pneumoniae DNA (PCR) Not Detected (NotDetected) Coronavirus OC43 (PCR) Not Detected (NotDetected) Coronavirus HKU1 (PCR) Not Detected (NotDetected) Coronavirus 229E (PCR) Not Detected (NotDetected) SARS-CoV-2 (PCR) Not Detected (NotDetected) Coronavirus NL63 (PCR) Not Detected (NotDetected) Human Metapneumovir PCR Not Detected (NotDetected) Influenza Type A (PCR) Not Detected (NotDetected) Influenza Type B (PCR) Not Detected (NotDetected) M. pneumoniae (PCR) Not Detected (NotDetected) Parainfluenza 1 (PCR) Not Detected (NotDetected) Parainfluenza 2 (PCR) Not Detected (NotDetected) Parainfluenza 3 (PCR) Not Detected (NotDetected) Parainfluenza 4 (PCR) Not Detected (NotDetected) RSV (PCR) Not Detected (NotDetected) Entero/Rhino (PCR) Not Detected (NotDetected) Group A Strep (PCR) NOT DETECTED (NotDetected) Imaging Data Attestation: I personally reviewed and interpreted this imaging study as follows: Radiologist's Impression: Soft Tissue Neck CT 02/26/24 04:30 Exam(s): CT NECK With Contrast IV Amt: 89 ml optiray 320 EXAM: CT Neck With Intravenous Contrast CLINICAL HISTORY: Reason for exam: dysphagia, fever, ? infx. TECHNIQUE: Axial computed tomography images of the neck with intravenous contrast. Automated exposure control was utilized for the study. A dose lowering technique was utilized adhering to the principles of ALARA. CONTRAST: Patient received 89 ml optiray 320 of IV contrast COMPARISON: No relevant prior studies available. FINDINGS: Pharynx: There is mucosal hyperenhancement identified in the pharyngeal wall. No significant tonsillar enlargement. No peritonsillar abscess. Larynx: Unremarkable. Normal epiglottis. Trachea: Unremarkable. Retropharyngeal space: Unremarkable. Submandibular/parotid glands: Unremarkable. Glands are normal in size. Thyroid: Unremarkable. No enlarged or calcified nodules. Bones/joints: No acute fracture. Soft tissues: Unremarkable. Vasculature: There is at least 90% stenosis seen at the origin of the right internal carotid artery due to the presence of extensive calcified atherosclerotic plaque. Moderate atherosclerotic calcification seen in the left carotid bulb. Lymph nodes: Unremarkable. No lymphadenopathy. Lung apices: Unremarkable as visualized. IMPRESSION: Mucosal hyperenhancement in the pharyngeal wall which can be associated with pharyngitis. No evidence of peritonsillar abscess or tonsillitis. Hemodynamically significant stenosis at the origin of the right internal carotid artery with more than 90% luminal obstruction Electronically signed by: Jackson Schafer MD 02/26/24 06:00 AM MDM Narrative Prior records/ancillary studies reviewed and summarized above. Nursing notes reviewed. Additional history obtained from EMS. The patient's history was concerning for fever, chills, sore throat and diarrhea in a patient with a history of E. coli bacteremia. Differential diagnosis: Etiologies such as metabolic, infection, hypo/hyperglycemia, electrolyte abnormalities, cardiac sources, intracerebral event, toxicologic, neurologic, as well as others were entertained. Physical examination: As above. ER treatment provided: IV Lock An order was placed for continuous cardiac monitoring. The monitor shows a rate of 60-100 with a sinus rhythm per my interpretation. IV fluids, Unasyn, magnesium, platelets, Protonix, Pepcid, Zofran On reassessment the patient felt better. Diagnostics interpretation by me: ECG: Ordered for weakness EKG: Normal sinus, normal intervals, no acute ST-T wave changes. Impression sinus tachycardia independently interpreted by myself I think arrhythmia is unlikely. EKG shows normal sinus rhythm with no interval abnormalities such as QT prolongation or WPW. There are no findings to suggest Brugada syndrome. Cardiac monitoring in the emergency department reveals no tachycardic or bradycardic dysrhythmia. Hypertrophic cardiomyopathy was considered but there are no clear historical elements pointing toward this. EKG is not suggestive. The QRS voltage is not extremely large and there are no suggestive Q waves. The labs Independently Interpreted by myself revealed anemia which is about baseline for the patient. Thrombocytopenia which is lower than baseline for the patient. Hemoccult was positive so patient was transfused platelets. Blood cultures pending Imaging studies: Chest x-ray with no acute consolidation, pneumothorax or free air per my independent interpretation Neck CT as above Consultation: A consultation was placed with the hospitalist. The case was discussed and diagnostics were reviewed. The patient was evaluated in the ER for further treatment. Exam and history seem consistent with thrombocytopenia with active bleeding with low magnesium. Patient was medicated as above. She was given a pack of platelets. Type and screen was sent. She was consented to blood if warranted. CT of the neck was negative for epiglottitis. Stool culture has not been submitted by the patient at time of admission. Medicine consulted and the case was discussed. She will be admitted to the medical service for further evaluation and treatment.By the evaluation outlined above emergent etiologies such as cardiac sources, intracerebral event, toxologic, neurologic, abnormalities blood glucose, metabolic, as well as others were deemed relatively unlikely. The pt informed about the findings as listed above. All questions were answered and the chart was completed utilizing [employer] Speech voice recognition software. Grammatical errors, random word insertions, pronoun errors, and incomplete sentences are an occassional consequence of this system due to software limitations, ambient noise, and hardware issues. Any formal questions or concerns about the content, text, or information contained within the body of this dictation should be directly addressed to the physician medical record assistant for clarification. Pleased with the treatment. Return instructions were outlined and the patient was discharged in stable condition. Impression & Plan Thrombocytopenia, Hypomagnesemia, Blood in stool, Diarrhea Discharge Plan Visit Data Chief Complaint: Flu Like Symptoms Stated Complaint: FLU LIKE SYMPTOMS ED Provider: Sofya Herzog ED Midlevel Provider: Deja Valencia Discharge Problem: Thrombocytopenia, Hypomagnesemia, Blood in stool, Diarrhea Patient Disposition: Admitted As Inpatient Condition: Fair Forms Stand Alone Forms: [facility]egoes Prescriptions Prescriptions: No Action omeprazole 20 mg Capsule,Delayed Release(Dr/Ec) 20 mg PO DAILY tramadol 50 mg Tablet 50 mg PO Q6H PRN (Reason: Pain) metoprolol succinate 50 mg tablet extended release 24 hr 50 mg PO QAM isosorbide mononitrate 30 mg tablet extended release 24 hr 30 mg PO QAM venlafaxine [Effexor XR] 150 mg capsule,extended release 24hr 150 mg PO HS metformin 1,000 mg tablet 1,000 mg PO BIDM Novolin R FlexPen 100 unit/mL (3 mL) Insulin Pen 0 unit SUBCUT .SLIDING SCALE Levemir U-100 Insulin 100 unit/mL solution 22 unit SUBCUT HS cholecalciferol (vitamin D3) [Vitamin D3] 125 mcg (5,000 unit) Tablet 125 mcg PO QAM atorvastatin 40 mg tablet 40 mg PO DAILY acyclovir 800 mg tablet 800 mg PO BID levothyroxine 75 mcg tablet 75 mcg PO DAILY solifenacin 5 mg tablet 5 mg PO DAILY Myrbetriq 50 mg tablet extended release 24 hr 50 mg PO DAILY acetaminophen 325 mg Tablet 650 mg PO Q4H PRN (Reason: fever or pain) Qty: 30 0RF polyethylene glycol 3350 [Miralax] 17 gram Powder In Packet 17 g PO DAILY PRN (Reason: constipation) Qty: 14 0RF Referrals Referrals: Dhruv Moss MD [Primary Care Provider] -
[2024-02-26 05:12] LABS: Albumin Level 3.8 gm/dl (3.4-5.0); BUN Creatinine Ratio 20.4 (10-20); Bilirubin Direct 0.1 mg/dl (0-0.2); Bilirubin,Total 0.5 mg/dl (0.2-1.0); Calcium 8.4 mg/dl (8.6-10.3); Creatinine Clr Calc Pharmacy 44.9 ml/min; Est GFR (African American) 61.6 ml/min; Est GFR (Non-African American) 53.1 ml/min; Potassium 3.6 mmol/L (3.5-5.1)
[2024-02-26] MEDS: OPTIRAY 320 100ml IV ONE (05:12)
[2024-02-26 05:14] LABS: iSTAT Hemoglobin 7.5 g/dl (12.0-16.0); iSTAT Ionized Calcium 1.1 mmol/l (1.12-1.32); iSTAT Potassium 3.6 mmol/L (3.3-5.0)
[2024-02-26 05:19] LABS: Troponin I High Sensitivity 13.8 pg/ml (0-14)
[2024-02-26 05:24] LABS: Hematocrit (blood only) 23.8 % (37.0-47.0); Hemoglobin 7.9 g/dl (12.0-16.0); Mean Corpuscular Hemoglobin 40.1 pg (25.0-34.0); Mean Corpuscular Hgb Conc 33.2 g/dL (32.0-36.0); Mean Corpuscular Volume 120.8 fL (80.0-100.0); Mean Platelet Volume 13.1 fL (9.4-12.4); Platelet Count 10 K/uL (130-400); RDW Coefficient of Variation 14.8 % (11.5-14.5); RDW Standard Deviation 64.2 fL (36.4-46.3); Red Blood Count 1.97 M/uL (4.20-5.40); White Blood Count 21.18 K/ul (4.8-10.8)
[2024-02-26] MEDS ORDERED: SODIUM CHLORIDE 0.9% 250 ML IV PRN ×2 (05:28→08:31)
[2024-02-26] MEDS: SODIUM CHLORIDE 0.9% 1,000 ML IV ONE (05:30)
[2024-02-26] MEDS: FAMOTIDINE 20MG IV PUSH 20 MG/5 ML SYR IV STA (05:30)
[2024-02-26] MEDS: ONDANSETRON INJ 2 MG/ML 2 ML VIAL IV STA (05:30)
[2024-02-26] MEDS: MAGNESIUM SULFATE / D5W 1 GM/100 ML BAG IV SCH ×2 (05:30→09:19)
[2024-02-26 05:39] LABS: Adenovirus PCR Not Detected (NotDetected); Bordetella parapertussis PCR Not Detected (NotDetected); Bordetella pertussis PCR Not Detected (NotDetected); Chlamydia pneumoniae PCR Not Detected (NotDetected); Coronavirus 229E PCR Not Detected (NotDetected); Coronavirus CoV-2 (COVID19)PCR Not Detected (NotDetected); Coronavirus HKU1 PCR Not Detected (NotDetected); Coronavirus NL63 PCR Not Detected (NotDetected); Coronavirus OC43PCR Not Detected (NotDetected); Human Metapneumovirus PCR Not Detected (NotDetected); Influenza A PCR Not Detected (NotDetected); Influenza B PCR Not Detected (NotDetected); Mycoplasma pneumoniae PCR Not Detected (NotDetected); Parainfluenza Virus 1 PCR Not Detected (NotDetected); Parainfluenza Virus 2 PCR Not Detected (NotDetected); Parainfluenza Virus 3 PCR Not Detected (NotDetected); Parainfluenza Virus 4 PCR Not Detected (NotDetected); Respiratory Syncytial VirusPCR Not Detected (NotDetected); Rhinovirus/Enterovirus PCR Not Detected (NotDetected)
--- NOTE | 2024-02-26 06:01 | CT Scan Report ---
Exam(s): CT NECK With Contrast IV Amt: 89 ml optiray 320 EXAM: CT Neck With Intravenous Contrast CLINICAL HISTORY: Reason for exam: dysphagia, fever, ? infx. TECHNIQUE: Axial computed tomography images of the neck with intravenous contrast. Automated exposure control was utilized for the study. A dose lowering technique was utilized adhering to the principles of ALARA. CONTRAST: Patient received 89 ml optiray 320 of IV contrast COMPARISON: No relevant prior studies available. FINDINGS: Pharynx: There is mucosal hyperenhancement identified in the pharyngeal wall. No significant tonsillar enlargement. No peritonsillar abscess. Larynx: Unremarkable. Normal epiglottis. Trachea: Unremarkable. Retropharyngeal space: Unremarkable. Submandibular/parotid glands: Unremarkable. Glands are normal in size. Thyroid: Unremarkable. No enlarged or calcified nodules. Bones/joints: No acute fracture. Soft tissues: Unremarkable. Vasculature: There is at least 90% stenosis seen at the origin of the right internal carotid artery due to the presence of extensive calcified atherosclerotic plaque. Moderate atherosclerotic calcification seen in the left carotid bulb. Lymph nodes: Unremarkable. No lymphadenopathy. Lung apices: Unremarkable as visualized. IMPRESSION: Mucosal hyperenhancement in the pharyngeal wall which can be associated with pharyngitis. No evidence of peritonsillar abscess or tonsillitis. Hemodynamically significant stenosis at the origin of the right internal carotid artery with more than 90% luminal obstruction Electronically signed by: Jackson Schafer MD 02/26/24 06:00 AM
[2024-02-26] MEDS: AMPICILLIN/SULBACTAM SOD 3,000 MG in SODIUM CHLOR 0.9% MINI-B 100 ML IV STA (06:07)
[2024-02-26] MEDS: PANTOprazole 80 MG in DEXTROSE 5% 100 ML IV STA (06:08)
[2024-02-26 06:22] LABS: ALC (manual) 4.87 K/uL (1.2-3.4); ANC (manual) 14.61 K/uL (1.4-6.5); Blast # (manual) 1.48 K/uL (0-0); Dohle Bodies 1+; Eosinophils # (manual) 0.21 K/uL (0-0.50); Eosinophils % (manual) 1 %; Hypogranular Neutrophils 1+; Lymphocytes # (manual) 4.87 K/uL (1.2-3.4); Lymphocytes % (manual) 23 %; Macrocytosis Present; Neutrophils # (manual) 14.61 K/uL (1.40-6.50); Neutrophils % (manual) 69 %; Polychromasia 1+
[2024-02-26 06:27] LABS: Blast Cells % (manual) 7 %
--- NOTE | 2024-02-26 07:10 | XRay Report ---
XR chest 1V portable HISTORY: Sepsis COMPARISON: 04/10/2023. FINDINGS: The cardiac silhouette is borderline enlarged. No focal lung consolidations to suggest a pn eumonia. No evidence for pulmonary edema. A right jugular Port-A-Cath terminates in the SVC. No acute fractures. IMPRESSION: No acute process. ACT 112: Negative or not required by law. Electronically signed by: Bogdan Lyon M.D. 02/26/2024 7:08 AM
--- NOTE | 2024-02-26 08:12 | History & Physical Report ---
Date of Service February 26, 2024 Assessment & Plan (1) Diarrhea: Plan: 71-year-old female with past med history significant for type 2 diabetes, hypothyroidism, hyperlipidemia, hypomagnesemia, history of IV iron overload transfusional, diabetic retinopathy, interstitial lung disease, hypertension, history of CAD s/p stent in 2017, symptomatic stenosis of right carotid artery, GERD, urinary incontinence, generalized osteoarthritis, neuropathy due to chemotherapy, high-grade myelodysplastic syndrome s/p stem cell transplant, thrombocytopenia, recurrent major depression, who lives at home with her and ambulates with a cane comes because of ongoing severe sore throat since last 1 week which is getting progressively worse and since yesterday having nausea, vomiting and diarrhea which prompted her to come to the ER. She was seen by [facility] yesterday and was given dose of Rocephin and prescribed amoxicillin but was not filled yet. Having headache 6/10 in severity. Has chronic neck pain. Can move her neck okay. Vision is not great. Some runny nose. No cough. No fevers. No chest pain. No shortness of breath. Has some mild right lower quadrant abdominal pain. Micturating not much. Denies any burning micturition. Denies any blood in the stools. But Hemoccult was positive in the ER. No swelling the legs. No rash. Hemodynamics are okay. Nausea vomiting and diarrhea Has leukocytosis Follow stool studies IV fluids Close monitor Supportive care Blood in the stools Hemoccult positive Platelets are 10 Getting platelet transfusion N.p.o., IV fluids Protonix drip GI consult Close monitor Severe sore throat Having difficulty swallowing Soft tissue neck showed possible pharyngitis. No evidence of peritonsillar abscess or tonsillitis Yesterday and IV Unasyn which will be continued For the response Speech consult for any aspiration Patient currently n.p.o. Hypomagnesia Magnesium 1 Received 2 units of IV mag sulfate in ER Ordered 2 units of IV magnesium Follow repeat labs Severe myelodysplastic syndrome Diagnosed in 2019 and received 9 cycles of Dacogen and underwent clinic stem cell transplantation in August 2021 Recurrence of myelodysplasia syndrome Currently not on any immunosuppressant medications Currently not pursuing any active treatment per heme-onc notes CBC checked weekly Consider for blood transfusion hemoglobin less than 8 and platelet count less than 10 as per heme-onc Will follow labs Follow-up with heme-onc Anemia Hemoglobin 7.9 Getting 1 PRBC transfusion Hemoccult positive and on Protonix drip and GI consult Follow labs Diabetes Hold metformin Reduce Lantus to 10 units daily as patient n.p.o. Sliding scale Will monitor CAD s/p stent On statin, Imdur, metoprolol succinate Interstitial lung disease Follows with pulmonary Hypothyroidism On Synthyroid Hypertension On Imdur and metoprolol succinate Will monitor Hyperlipidemia On statin GERD Omeprazole Urinary incontinence Solifenacin, Myrbetriq Major depression On venlafaxine DVT prophylaxis SCDs patient has thrombocytopenia Disposition Telemetry Full code per my discussion with the daughter History of Present Illness Chief Complaint: Sore throat, nausea vomiting and diarrhea Primary Care Provider: Dhruv Moss MD 71-year-old female with past med history significant for type 2 diabetes, hypothyroidism, hyperlipidemia, hypomagnesemia, history of IV iron overload transfusional, diabetic retinopathy, interstitial lung disease, hypertension, history of CAD s/p stent in 2017, symptomatic stenosis of right carotid artery, GERD, urinary incontinence, generalized osteoarthritis, neuropathy due to chemotherapy, high-grade myelodysplastic syndrome s/p stem cell transplant, thrombocytopenia, recurrent major depression, who lives at home with her and ambulates with a cane comes because of ongoing severe sore throat since last 1 week which is getting progressively worse and since yesterday having nausea, vomiting and diarrhea which prompted her to come to the ER. [facility] and was given dose of Rocephin and prescribed amoxicillin but was not filled yet. Having headache 6/10 in severity. Has chronic neck pain. Can move her neck okay. Vision is not great. Some runny nose. No cough. No fevers. No chest pain. No shortness of breath. Has some mild right lower quadrant abdominal pain. Micturating not much. Denies any burning micturition. Denies any blood in the stools. But Hemoccult was positive in the ER. No swelling the legs. No rash. Hemodynamics are okay. Past medical history. As mentioned above Past surgical history. Colonoscopy. Dilatation curettage. EGD. Ligation of oviducts. Partial hysterectomy. Open cholecystectomy. Repair of her right hip fractures. Lumbar spine fusion surgery. Social history. . No smoking. No alcohol use. No drug use. Family history. Father had diabetes. MA. CHF. Mother had MA. Diabetes. Sister had breast cancer. Sister had multiple myeloma. Allergies Allergy/AdvReac Type Severity Reaction Status Date / Time No Known Allergies Allergy Verified 02/15/24 13:25 Home Medications Medication Instructions Recorded Confirmed Type acyclovir 800 mg tablet 800 mg PO BID 02/26/24 02/26/24 History atorvastatin 40 mg tablet 40 mg PO DAILY 02/26/24 02/26/24 History conjugated estrogens 0.625 mg/gram 1 mg vaginal WK 02/26/24 02/26/24 History vaginal cream (Premarin) insulin detemir U-100 100 unit/mL 20 unit subcut DAILY 02/26/24 02/26/24 History subcutaneous solution (Levemir U-100 Insulin) insulin regular human 100 unit/mL 1 sliding scale dose subcut AC 02/26/24 02/26/24 History injection solution (Novolin R Regular U-100 Insulin) isosorbide mononitrate 30 mg 30 mg PO DAILY 02/26/24 02/26/24 History tablet,extended release 24 hr levothyroxine 88 mcg tablet 88 mcg PO DAILY 02/26/24 02/26/24 History magnesium 100 mg capsule 100 mg PO DAILY 02/26/24 02/26/24 History metformin 1,000 mg tablet 1,000 mg PO BID 02/26/24 02/26/24 History metoprolol succinate 50 mg 50 mg PO DAILY 02/26/24 02/26/24 History tablet,extended release 24 hr mirabegron 50 mg tablet,extended 50 mg PO DAILY 02/26/24 02/26/24 History release 24 hr (Myrbetriq) omeprazole 20 mg capsule,delayed 20 mg PO DAILY 02/26/24 02/26/24 History release solifenacin 5 mg tablet 5 mg PO DAILY 02/26/24 02/26/24 History venlafaxine 150 mg 150 mg PO DAILY 02/26/24 02/26/24 History capsule,extended release 24 hr Past Med/Surg History Medical History Fracture of right hip requiring operative repair Osteoarthritis Myelodysplastic syndrome Depression CAD (coronary artery disease) 2017-EDIL to LAD Hypertension Dyslipidemia Hypothyroidism DM type 2 (diabetes mellitus, type 2) Surgical History History of spinal fusion History of cholecystectomy History of partial hysterectomy H/O tubal ligation H/O dilation and curettage Family History Father Heart disease Mother Heart disease Sister Breast cancer Sister Multiple myeloma Brother Prostate cancer Social History Smoking Status: Never smoker Hx Alcohol Use: No Hx Substance Use: No Preferred Language: Yi Communication Ability: Effective Residential Tech Required: No Beliefs That Will Affect Care: None Current Living Situation: Spouse Feels Safe at Home: Yes Assistive Devices: Walker Review of Systems Review of Systems: All systems reviewed & are unremarkable except as noted in HPI & below Physical Exam Physical Exam: General- Not in distress Head- atraumatic Eyes- PERRL. ENT- swollen uvula seen Neck- supple, no JVD. Lungs- clear to auscultation no wheezing or crackles. Heart- regular rhythm; no murmur, no gallop. Abdomen- normal bowel sounds, soft, nontender, no distension. Extremities- no pretibial edema, no erythema seen. Neuro- alert, oriented PERRL, no facial palsy; no dysarthria; obeys simple commands Results & Data Results & Data Vital Signs (Past 12 Hours) Vital Signs Temp Pulse Pulse Resp BP BP Pulse Ox 02/26/24 07:53 89 14 164/89 H 99 02/26/24 07:40 88 14 99 02/26/24 07:40 161/83 H 02/26/24 07:35 90 23 95 02/26/24 07:35 169/84 H 02/26/24 07:30 88 16 98 02/26/24 07:30 164/84 H 02/26/24 07:25 90 23 96 02/26/24 07:25 166/85 H 02/26/24 07:20 155/81 H 02/26/24 07:20 90 21 97 02/26/24 07:15 89 19 98 02/26/24 07:15 153/74 H 02/26/24 07:10 90 23 97 02/26/24 07:10 152/76 H 02/26/24 07:05 92 H 19 98 02/26/24 07:05 134/78 02/26/24 07:00 94 H 15 100 02/26/24 07:00 127/61 02/26/24 07:00 36.9 C 92 H 18 127/61 100 02/26/24 06:55 92 H 13 98 02/26/24 06:55 144/66 H 02/26/24 06:55 36.8 C 93 H 18 144/66 H 99 02/26/24 06:50 139/69 02/26/24 06:50 91 H 14 99 02/26/24 06:50 37.0 C 91 H 18 139/69 99 02/26/24 06:45 145/70 H 02/26/24 06:45 92 H 18 98 02/26/24 06:44 91 H 18 98 02/26/24 06:44 133/76 02/26/24 06:43 37.0 C 90 20 133/76 94 02/26/24 06:40 92 H 17 98 02/26/24 06:30 95 H 10 L 100 02/26/24 06:30 141/64 H 02/26/24 06:20 89 14 97 02/26/24 06:10 86 12 98 02/26/24 06:00 91 H 15 98 02/26/24 06:00 146/66 H 02/26/24 05:50 90 16 98 02/26/24 05:40 95 H 10 L 99 02/26/24 05:30 94 H 17 98 02/26/24 05:30 112/59 L 02/26/24 05:20 100 H 11 L 98 02/26/24 05:00 134/72 02/26/24 05:00 100 H 16 97 02/26/24 04:56 145/85 H 02/26/24 04:56 102 H 12 97 02/26/24 04:50 107 H 16 90 02/26/24 04:40 107 H 15 92 02/26/24 04:34 105 H 17 93 02/26/24 04:34 105 H 02/26/24 04:29 37.3 C 107 H 18 107/68 96 02/26/24 04:29 107 H 18 96 02/26/24 04:29 37.3 C 107 H 18 107/68 96 O2 Del Method O2 Flow Rate 02/26/24 07:53 2 02/26/24 07:40 02/26/24 07:40 02/26/24 07:35 02/26/24 07:35 02/26/24 07:30 02/26/24 07:30 02/26/24 07:25 02/26/24 07:25 02/26/24 07:20 02/26/24 07:20 02/26/24 07:15 02/26/24 07:15 02/26/24 07:10 02/26/24 07:10 02/26/24 07:05 02/26/24 07:05 02/26/24 07:00 02/26/24 07:00 02/26/24 07:00 2 02/26/24 06:55 02/26/24 06:55 02/26/24 06:55 2 02/26/24 06:50 02/26/24 06:50 02/26/24 06:50 2 02/26/24 06:45 02/26/24 06:45 02/26/24 06:44 02/26/24 06:44 02/26/24 06:43 02/26/24 06:40 02/26/24 06:30 02/26/24 06:30 02/26/24 06:20 02/26/24 06:10 02/26/24 06:00 02/26/24 06:00 02/26/24 05:50 02/26/24 05:40 02/26/24 05:30 02/26/24 05:30 02/26/24 05:20 02/26/24 05:00 02/26/24 05:00 02/26/24 04:56 02/26/24 04:56 02/26/24 04:50 02/26/24 04:40 02/26/24 04:34 02/26/24 04:34 02/26/24 04:29 Nasal Cannula 02/26/24 04:29 Nasal Cannula 02/26/24 04:29 Nasal Cannula 2 Diagnostic Findings Laboratory Results WBC 21.18 K/ul (4.8-10.8) H 02/26/24 04:40 RBC 1.97 M/uL (4.20-5.40) L 02/26/24 04:40 Hgb 7.9 g/dl (12.0-16.0) L 02/26/24 04:40 POC Hgb 7.5 g/dl (12.0-16.0) L 02/26/24 05:01 Hct 23.8 % (37.0-47.0) L 02/26/24 04:40 POC Hct 22 % (37-47) L 02/26/24 05:01 MCV 120.8 fL (80.0-100.0) H 02/26/24 04:40 MCH 40.1 pg (25.0-34.0) H 02/26/24 04:40 MCHC 33.2 g/dL (32.0-36.0) 02/26/24 04:40 RDW Std Deviation 64.2 fL (36.4-46.3) H 02/26/24 04:40 RDW Coeff of Evin 14.8 % (11.5-14.5) H 02/26/24 04:40 Plt Count 10 K/uL (130-400) L* 02/26/24 04:40 MPV 13.1 fL (9.4-12.4) H 02/26/24 04:40 Neutrophils % (Manual) 69 % 02/26/24 04:40 Lymphocytes % (Manual) 23 % 02/26/24 04:40 Eosinophils % (Manual) 1 % 02/26/24 04:40 Blast Cells % (Manual) 7 % 02/26/24 04:40 Neutrophils # (Manual) 14.61 K/uL (1.40-6.50) H 02/26/24 04:40 Total Absolute Neuts 14.61 K/uL (1.4-6.5) H 02/26/24 04:40 Lymphocytes # (Manual) 4.87 K/uL (1.2-3.4) H 02/26/24 04:40 Total Abs Lymphocytes 4.87 K/uL (1.2-3.4) H 02/26/24 04:40 Eosinophils # (Manual) 0.21 K/uL (0-0.50) 02/26/24 04:40 Blast Cells # (Man) 1.48 K/uL (0-0) H 02/26/24 04:40 Hyposegmented Neuts 1+ 02/26/24 04:40 Hypogranular Neuts 1+ 0415/24 04:40 Dohle Bodies 1+ 02/26/24 04:40 Polychromasia 1+ 02/26/24 04:40 Macrocytosis Present 02/26/24 04:40 POC Sodium 139 mmol/L (135-144) 02/26/24 05:01 Sodium 137 mmol/L (136-145) 02/26/24 04:40 POC Potassium 3.6 mmol/L (3.3-5.0) 02/26/24 05:01 Potassium 3.6 mmol/L (3.5-5.1) 02/26/24 04:40 POC Chloride 105 mmol/L (101-112) 02/26/24 05:01 Chloride 105 mmol/L (98-107) 02/26/24 04:40 Carbon Dioxide 23 mmol/L (21-32) 02/26/24 04:40 POC Total CO2 23 mmol/L (24-31) L 02/26/24 05:01 Anion Gap 9 (3-11) 02/26/24 04:40 POC Anion Gap 15.0 mmol/L (16-25) L 02/26/24 05:01 POC BUN 20 mg/dl (7-18) H 02/26/24 05:01 BUN 21 mg/dl (6-23) 02/26/24 04:40 Creatinine 1.03 mg/dl (0.6-1.2) 02/26/24 04:40 POC Creatinine 1.0 mg/dl (0.6-1.3) 02/26/24 05:01 Est Cr Clr Drug Dosing 44.9 ml/min 02/26/24 04:40 Est GFR ( Amer) 61.6 ml/min 02/26/24 04:40 Est GFR (Non-Af Amer) 53.1 ml/min 02/26/24 04:40 BUN/Creatinine Ratio 20.4 (10-20) H 02/26/24 04:40 Glucose 255 mg/dl (70-99(Fasting)) H 02/26/24 04:40 POC Glucose (other) 257 mg/dl (70-99) H 02/26/24 05:01 Lactate 1.7 mmol/L (0.4-2.0) 02/26/24 04:40 Calcium 8.4 mg/dl (8.6-10.3) L 02/26/24 04:40 POC Ioniz Calcium Dalila 1.10 mmol/l (1.12-1.32) L 02/26/24 05:01 Magnesium 1.0 mg/dl (1.7-2.4) L 02/26/24 04:40 Total Bilirubin 0.5 mg/dl (0.2-1.0) 02/26/24 04:40 Direct Bilirubin 0.1 mg/dl (0-0.2) 02/26/24 04:40 AST 12 U/L (13-39) L 02/26/24 04:40 ALT 17 U/L (7-52) 02/26/24 04:40 Alkaline Phosphatase 73 U/L (34-104) 02/26/24 04:40 Troponin I High Sens 13.8 pg/ml (0-14) 02/26/24 04:40 Total Protein 7.0 gm/dl (6.0-8.3) 02/26/24 04:40 Albumin 3.8 gm/dl (3.4-5.0) 02/26/24 04:40 Procalcitonin 0.51 ng/ml (0-0.5) H 02/26/24 04:40 Adenovirus (PCR) Not Detected (NotDetected) 02/26/24 04:30 B. pertussis DNA (PCR) Not Detected (NotDetected) 02/26/24 04:30 B.parapertussis DNA PCR Not Detected (NotDetected) 02/26/24 04:30 C. pneumoniae DNA (PCR) Not Detected (NotDetected) 02/26/24 04:30 Coronavirus OC43 (PCR) Not Detected (NotDetected) 02/26/24 04:30 Coronavirus HKU1 (PCR) Not Detected (NotDetected) 02/26/24 04:30 Coronavirus 229E (PCR) Not Detected (NotDetected) 02/26/24 04:30 SARS-CoV-2 (PCR) Not Detected (NotDetected) 02/26/24 04:30 Coronavirus NL63 (PCR) Not Detected (NotDetected) 02/26/24 04:30 Human Metapneumovir PCR Not Detected (NotDetected) 02/26/24 04:30 Influenza Type A (PCR) Not Detected (NotDetected) 02/26/24 04:30 Influenza Type B (PCR) Not Detected (NotDetected) 02/26/24 04:30 M. pneumoniae (PCR) Not Detected (NotDetected) 02/26/24 04:30 Parainfluenza 1 (PCR) Not Detected (NotDetected) 02/26/24 04:30 Parainfluenza 2 (PCR) Not Detected (NotDetected) 02/26/24 04:30 Parainfluenza 3 (PCR) Not Detected (NotDetected) 02/26/24 04:30 Parainfluenza 4 (PCR) Not Detected (NotDetected) 02/26/24 04:30 RSV (PCR) Not Detected (NotDetected) 02/26/24 04:30 Entero/Rhino (PCR) Not Detected (NotDetected) 02/26/24 04:30 Group A Strep (PCR) NOT DETECTED (NotDetected) 02/26/24 04:30 Blood Type A Positive 02/26/24 06:03 Antibody Screen NEGATIVE 02/26/24 06:03 Impressions Chest X-Ray 02/26/24 04:25 XR chest 1V portable HISTORY: Sepsis COMPARISON: 04/10/2023. FINDINGS: The cardiac silhouette is borderline enlarged. No focal lung consolidations to suggest a pneumonia. No evidence for pulmonary edema. A right jugular Port-A-Cath terminates in the SVC. No acute fractures. IMPRESSION: No acute process. ACT 112: Negative or not required by law. Electronically signed by: Bogdan Lyon M.D. 02/26/2024 7:08 AM Soft Tissue Neck CT 02/26/24 04:30 Exam(s): CT NECK With Contrast IV Amt: 89 ml optiray 320 EXAM: CT Neck With Intravenous Contrast CLINICAL HISTORY: Reason for exam: dysphagia, fever, ? infx. TECHNIQUE: Axial computed tomography images of the neck with intravenous contrast. Automated exposure control was utilized for the study. A dose lowering technique was utilized adhering to the principles of ALARA. CONTRAST: Patient received 89 ml optiray 320 of IV contrast COMPARISON: No relevant prior studies available. FINDINGS: Pharynx: There is mucosal hyperenhancement identified in the pharyngeal wall. No significant tonsillar enlargement. No peritonsillar abscess. Larynx: Unremarkable. Normal epiglottis. Trachea: Unremarkable. Retropharyngeal space: Unremarkable. Submandibular/parotid glands: Unremarkable. Glands are normal in size. Thyroid: Unremarkable. No enlarged or calcified nodules. Bones/joints: No acute fracture. Soft tissues: Unremarkable. Vasculature: There is at least 90% stenosis seen at the origin of the right internal carotid artery due to the presence of extensive calcified atherosclerotic plaque. Moderate atherosclerotic calcification seen in the left carotid bulb. Lymph nodes: Unremarkable. No lymphadenopathy. Lung apices: Unremarkable as visualized. IMPRESSION: Mucosal hyperenhancement in the pharyngeal wall which can be associated with pharyngitis. No evidence of peritonsillar abscess or tonsillitis. Hemodynamically significant stenosis at the origin of the right internal carotid artery with more than 90% luminal obstruction Electronically signed by: Jackson Schafer MD 02/26/24 06:00 AM ECG Additional Comments: ECG. Sinus tachycardia rate 106. Nonspecific T wave abnormalities. Code Status & VTE Plan VTE Prophylaxis Plan VTE Prophylaxis will be ordered: Yes
[2024-02-26] MEDS ORDERED: GLUCOSE 10 TAB/TUBE PO PRN (08:31)
[2024-02-26] MEDS ORDERED: DEXTROSE 50% 50 ML SYRINGE IV PRN (08:31)
[2024-02-26] MEDS ORDERED: ONDANSETRON INJ 2 MG/ML 2 ML VIAL IV PRN (08:31)
[2024-02-26] MEDS ORDERED: GLUCAGON FOR INJ 1 MG VIAL SQ PRN (08:31)
[2024-02-26] MEDS ORDERED: CARBOHYDRATES FOR HYPOGLYCEMIA PO PRN (08:31)
[2024-02-26] MEDS ORDERED: NITROGLYCERIN SL 0.4 MG/TAB TAB SL PRN (08:31)
[2024-02-26] MEDS ORDERED: GLUCOSE 40% GEL 15 GM TUBE PO PRN (08:31)
[2024-02-26 08:49] LABS: Appearance Urine Clear (Clear); Bacteria Urine Automated None Seen (None Seen); Bilirubin Urine Negative (Negative); Blood Urine Negative (Negative); Cast Urine Automated 0-2 /lpf (0-2); Color Urine Yellow; Epithelial Cell Urine Auto 0-2 /hpf (0-2); Glucose Urine UA Trace (Negative); Ketones Urine Negative (Negative); Leukocyte Esterase Urine Negative (Negative); Nitrite Urine Negative (Negative); Protein Urine Trace (Negative); RBC Urine Automated 0-2 /hpf (0-2); Specific Gravity Urine 1.033 (1.000-1.030); Urobilinogen Urine Negative (Negative); WBC Urine Automated 0-5 /hpf (0-5); pH Urine 5.5 (4.5-7.5)
--- NOTE | 2024-02-26 08:55 | Electrocardiogram Report ---
Test Reason : Blood Pressure : / mmHG Vent. Rate : 106 BPM Atrial Rate : 106 BPM P-R Int : 148 ms QRS Dur : 082 ms QT Int : 342 ms P-R-T Axes : 026 012 076 degrees QTc Int : 454 ms Sinus tachycardia Poor R wave progression, consider anterior SC vs. lead placement vs. LVH Abnormal ECG When compared with ECG of 10-APR-2023 06:23, Nonspecific T wave abnormality now evident in Lateral leads Confirmed by Fernando Villalba ([id number]) on 02/26/2024 8:54:54 AM Referred By: REFERRED SELF Confirmed By:Catrachito Villalba
[2024-02-26] MEDS ORDERED: PANTOprazole 40 MG TAB PO SCH (09:00)
[2024-02-26] MEDS: LANTUS PER UNIT CHARGE SQ SCH (09:18)
[2024-02-26] MEDS: SODIUM CHLORIDE 0.9% 1,000 ML IV SCH (09:19)
[2024-02-26] MEDS: INSULIN ASPART PER UNIT CHARGE SC SCH ×2 (09:19→12:39)
[2024-02-26] MEDS: MAGNESIUM OXIDE 400 MG TAB PO SCH (09:26)
[2024-02-26] MEDS: ACETAMINOPHEN 325 MG TAB PO STA (09:26)
[2024-02-26] MEDS: ISOSORBIDE MONO EXTENDED REL 30 MG TABCR PO SCH (09:27)
[2024-02-26] MEDS: LEVOTHYROXINE SODIUM 88 MCG TABLET PO SCH (09:27)
[2024-02-26] MEDS: METOPROLOL SUCC 50MG EXT REL TAB PO SCH (09:27)
[2024-02-26] MEDS: ACYCLOVIR 400 MG TAB PO SCH (09:27)
[2024-02-26] MEDS: ATORVASTATIN 40 MG TAB PO SCH (09:27)
[2024-02-26] MEDS: OXYBUTYNIN CHLORIDE XL 5 MG TABCR PO SCH (09:28)
[2024-02-26] MEDS: VENLAFAXINE HCL XR 150 MG CAPXR PO SCH (09:28)
[2024-02-26] MEDS: PANTOprazole 40 MG in DEXTROSE 5% MINI-B 100 ML IV SCH (09:28)
[2024-02-26] MEDS: VIBEGRON 75 MG TAB PO SCH (09:28)
[2024-02-26] MEDS ORDERED: AMPICILLIN SOD/SULBACTAM SOD 3 GM VIAL IV SCH (11:00)
--- NOTE | 2024-02-26 11:01 | Gastrointestinal Consultation ---
Date of Consultation February 26, 2024 Assessment & Plan (1) Diarrhea: (2) Heme positive stool: Plan -Obtain stool PCR & C diff studies, though diarrhea has improved since admission. Orders are still in her chart from ED provider. -Heme positive stool could be related to her acute diarrhea, however she is due for an outpatient colonoscopy so should plan for this once acute process resolves. -Monitor H/H. -Continue IV Protonix at a dose of 40 mg BID. Supervising Physician Co-Signing Physician Notes Agree with TERA Draper as above Interviewed and examined patient and agree with above Abd: Soft, NT, ND, +BS Continue current therapy and supportive care No stool studies pending, as patient has not had a BM since admitted History of Present Illness Reason for Consultation: Diarrhea, heme positive stool Attending Physician: Julio Hancock MD History of Present Illness Patient is a 71 yo female with PMH of DM2, hypothyroidism, HLD, hypomagnesemia, interstitial lung disease, HTN, CAD s/p stent in 2017, stenosis of right carotid artery, GERD, OA, & high grade myelodysplastic syndrome s/p stem cell transplant. She is hospitalized due to a severe sore throat. She notes she has been having n/v and diarrhea as well. She notes some mild abdominal discomfort, but no acute pain. Hemoccult positive. She notes she is due for an outpatient colonoscopy. She denies overt GI bleeding. No acute GI complaints otherwise. She notes her diarrhea has stopped since arrival to the hospital. WBC count 21,180. No stool studies have resulted. Family history unremarkable for GI concerns. H/H 7.9/23.8, which is around her baseline. Allergies Allergy/AdvReac Type Severity Reaction Status Date / Time No Known Allergies Allergy Verified 02/15/24 13:25 Home Medications Medication Instructions Recorded Confirmed Type acyclovir 800 mg tablet 800 mg PO BID 02/26/24 02/26/24 History atorvastatin 40 mg tablet 40 mg PO DAILY 02/26/24 02/26/24 History conjugated estrogens 0.625 mg/gram 1 mg vaginal WK 02/26/24 02/26/24 History vaginal cream (Premarin) insulin detemir U-100 100 unit/mL 20 unit subcut DAILY 02/26/24 02/26/24 History subcutaneous solution (Levemir U-100 Insulin) insulin regular human 100 unit/mL 1 sliding scale dose subcut AC 02/26/24 History injection solution (Novolin R Regular U-100 Insulin) isosorbide mononitrate 30 mg 30 mg PO DAILY 02/26/24 02/26/24 History tablet,extended release 24 hr levothyroxine 88 mcg tablet 88 mcg PO DAILY 02/26/24 02/26/24 History magnesium 100 mg capsule 100 mg PO DAILY 02/26/24 02/26/24 History metformin 1,000 mg tablet 1,000 mg PO BID 02/26/24 02/26/24 History metoprolol succinate 50 mg 50 mg PO DAILY 02/26/24 02/26/24 History tablet,extended release 24 hr mirabegron 50 mg tablet,extended 50 mg PO DAILY 02/26/24 02/26/24 History release 24 hr (Myrbetriq) omeprazole 20 mg capsule,delayed 20 mg PO DAILY 02/26/24 02/26/24 History release solifenacin 5 mg tablet 5 mg PO DAILY 02/26/24 02/26/24 History venlafaxine 150 mg 150 mg PO DAILY 02/26/24 02/26/24 History capsule,extended release 24 hr Patient History Medical History Fracture of right hip requiring operative repair Osteoarthritis Myelodysplastic syndrome Depression CAD (coronary artery disease) 2017-EDIL to LAD Hypertension Dyslipidemia Hypothyroidism DM type 2 (diabetes mellitus, type 2) Surgical History History of spinal fusion History of cholecystectomy History of partial hysterectomy H/O tubal ligation H/O dilation and curettage Family History Father Heart disease Mother Heart disease Sister Breast cancer Sister Multiple myeloma Brother Prostate cancer Social History Smoking Status: Never smoker Hx Alcohol Use: No Hx Substance Use: No Preferred Language: Ivorian Communication Ability: Effective Trauma Nurse Required: No Beliefs That Will Affect Care: None Current Living Situation: Spouse Other Information That Helps Us Care for You: No Feels Safe at Home: Yes Safety Concerns: Feels Safe At This Time Assistive Devices: Cane, Denture - Upper and Walker Review of Systems Constitutional: + fatigue Ear, Nose, Mouth, Throat: + sore throat Respiratory: + cough Cardiovascular: no chest pain Gastrointestinal: + diarrhea/loose stools (improved); no a bdominal pain and no blood in stools Physical Exam Constitutional: well developed Respiratory: normal respiratory effort Cardiovascular: Rate/Rhythm: regular rate Gastrointestinal (Abdomen): normal bowel sounds, soft, nontender, no hepatosplenomegaly Results & Data Vital Signs (Past 12 Hours) Vital Signs Temp Pulse Pulse Resp BP BP Pulse Ox 02/26/24 10:20 02/26/24 10:10 36.4 C L 86 16 141/89 H 99 02/26/24 09:55 36.9 C 86 21 149/64 H 100 02/26/24 09:37 36.6 C 84 17 149/78 H 98 02/26/24 09:01 88 02/26/24 08:33 37.0 C 95 H 16 124/44 L 95 02/26/24 07:53 89 14 164/89 H 99 02/26/24 07:40 88 14 99 02/26/24 07:40 161/83 H 02/26/24 07:35 90 23 95 02/26/24 07:35 169/84 H 02/26/24 07:30 88 16 98 02/26/24 07:30 164/84 H 02/26/24 07:25 90 23 96 02/26/24 07:25 166/85 H 02/26/24 07:20 155/81 H 02/26/24 07:20 90 21 97 02/26/24 07:15 89 19 98 02/26/24 07:15 153/74 H 02/26/24 07:10 90 23 97 02/26/24 07:10 152/76 H 02/26/24 07:05 92 H 19 98 02/26/24 07:05 134/78 02/26/24 07:00 94 H 15 100 02/26/24 07:00 127/61 02/26/24 07:00 36.9 C 92 H 18 127/61 100 02/26/24 06:55 92 H 13 98 02/26/24 06:55 144/66 H 02/26/24 06:55 36.8 C 93 H 18 144/66 H 99 04/15/24 06:50 139/69 02/26/24 06:50 91 H 14 99 02/26/24 06:50 37.0 C 91 H 18 139/69 99 02/26/24 06:45 145/70 H 02/26/24 06:45 92 H 18 98 02/26/24 06:44 91 H 18 98 02/26/24 06:44 133/76 02/26/24 06:43 37.0 C 90 20 133/76 94 02/26/24 06:40 92 H 17 98 02/26/24 06:30 95 H 10 L 100 02/26/24 06:30 141/64 H 02/26/24 06:20 89 14 97 02/26/24 06:10 86 12 98 02/26/24 06:00 91 H 15 98 02/26/24 06:00 146/66 H 02/26/24 05:50 90 16 98 02/26/24 05:40 95 H 10 L 99 02/26/24 05:30 94 H 17 98 02/26/24 05:30 112/59 L 02/26/24 05:20 100 H 11 L 98 02/26/24 05:00 134/72 02/26/24 05:00 100 H 16 97 02/26/24 04:56 145/85 H 02/26/24 04:56 102 H 12 97 02/26/24 04:50 107 H 16 90 02/26/24 04:40 107 H 15 92 02/26/24 04:34 105 H 17 93 02/26/24 04:34 105 H 02/26/24 04:29 37.3 C 107 H 18 107/68 96 02/26/24 04:29 107 H 18 96 02/26/24 04:29 37.3 C 107 H 18 107/68 96 O2 Del Method O2 Flow Rate 02/26/24 10:20 Nasal Cannula 2 02/26/24 10:10 2 02/26/24 09:55 2 02/26/24 09:37 2 02/26/24 09:01 02/26/24 08:33 Nasal Cannula 2 02/26/24 07:53 2 02/26/24 07:40 02/26/24 07:40 02/26/24 07:35 02/26/24 07:35 02/26/24 07:30 02/26/24 07:30 02/26/24 07:25 02/26/24 07:25 02/26/24 07:20 02/26/24 07:20 02/26/24 07:15 02/26/24 07:15 02/26/24 07:10 02/26/24 07:10 02/26/24 07:05 02/26/24 07:05 02/26/24 07:00 02/26/24 07:00 02/26/24 07:00 2 02/26/24 06:55 02/26/24 06:55 02/26/24 06:55 2 02/26/24 06:50 02/26/24 06:50 02/26/24 06:50 2 02/26/24 06:45 02/26/24 06:45 02/26/24 06:44 02/26/24 06:44 02/26/24 06:43 02/26/24 06:40 02/26/24 06:30 02/26/24 06:30 02/26/24 06:20 02/26/24 06:10 02/26/24 06:00 02/26/24 06:00 02/26/24 05:50 02/26/24 05:40 02/26/24 05:30 02/26/24 05:30 02/26/24 05:20 02/26/24 05:00 02/26/24 05:00 02/26/24 04:56 02/26/24 04:56 02/26/24 04:50 02/26/24 04:40 02/26/24 04:34 02/26/24 04:34 02/26/24 04:29 Nasal Cannula 02/26/24 04:29 Nasal Cannula 02/26/24 04:29 Nasal Cannula 2 PG Care Time/CCT Total # of Minutes Spent Total Time Spent with Patient: Total time spent is greater than 50% in coordination of care (as documented) at patient's floor/unit and/or counseling patient: Coding Level of Care Code 15627 INT INP/OBS CARE 3/75MIN Diagnoses Diarrhea R19.7 Heme positive stool R19.5
[2024-02-26] MEDS: AMPICILLIN/SULBACTAM SOD 3,000 MG in SODIUM CHLOR 0.9% MINI-B 100 ML IV SCH (12:37)
--- NOTE | 2024-02-26 16:37 | Emergency Department Note ---
History of Present Illness General Chief complaint: Flu Like Symptoms Stated complaint: FLU LIKE SYMPTOMS Time Seen by Provider: 02/26/24 04:25 History of Present Illness Maximum Pain Intensity: 9 This 73-year-old female presents ER complaining of sore throat, cough, fever, chills and diarrhea for the past week. Patient denies vomiting, abdominal pain, chest pain, dyspnea. She is able to swallow. Home Medications Medication Instructions Recorded Confirmed Type acyclovir 800 mg tablet 800 mg PO BID 02/26/24 02/26/24 History atorvastatin 40 mg tablet 40 mg PO DAILY 02/26/24 02/26/24 History conjugated estrogens 0.625 mg/gram 1 mg vaginal WK 02/26/24 02/26/24 History vaginal cream (Premarin) insulin detemir U-100 100 unit/mL 20 unit subcut DAILY 02/26/24 02/26/24 History subcutaneous solution (Levemir U-100 Insulin) insulin regular human 100 unit/mL 1 sliding scale dose subcut AC 02/26/24 02/26/24 History injection solution (Novolin R Regular U-100 Insulin) isosorbide mononitrate 30 mg 30 mg PO DAILY 02/26/24 02/26/24 History tablet,extended release 24 hr levothyroxine 88 mcg tablet 88 mcg PO DAILY 02/26/24 02/26/24 History magnesium 100 mg capsule 100 mg PO DAILY 02/26/24 02/26/24 History metformin 1,000 mg tablet 1,000 mg PO BID 02/26/24 02/26/24 History metoprolol succinate 50 mg 50 mg PO DAILY 02/26/24 02/26/24 History tablet,extended release 24 hr mirabegron 50 mg tablet,extended 50 mg PO DAILY 02/26/24 02/26/24 History release 24 hr (Myrbetriq) omeprazole 20 mg capsule,delayed 20 mg PO DAILY 02/26/24 02/26/24 History release solifenacin 5 mg tablet 5 mg PO DAILY 02/26/24 02/26/24 History venlafaxine 150 mg 150 mg PO DAILY 02/26/24 02/26/24 History capsule,extended release 24 hr Allergies Allergy/AdvReac Type Severity Reaction Status Date / Time No Known Allergies Allergy Verified 02/15/24 13:25 Past Med/Surg History Medical History Fracture of right hip requiring operative repair Osteoarthritis Myelodysplastic syndrome Depression CAD (coronary artery disease) 2017-EDIL to LAD Hypertension Dyslipidemia Hypothyroidism DM type 2 (diabetes mellitus, type 2) Surgical History History of spinal fusion History of cholecystectomy History of partial hysterectomy H/O tubal ligation H/O dilation and curettage Family History Father Heart disease Mother Heart disease Sister Breast cancer Sister Multiple myeloma Brother Prostate cancer Social History Smoking Status: Never smoker Hx Alcohol Use: No Hx Substance Use: No Preferred Language: Tuvaluan Communication Ability: Effective Mobile Health Vehicle Operator Required: No Beliefs That Will Affect Care: None Current Living Situation: Spouse Other Information That Helps Us Care for You: No Feels Safe at Home: Yes Safety Concerns: Feels Safe At This Time Assistive Devices: Cane, Denture - Upper and Walker Review of Systems A total of 10 systems reviewed and were otherwise negative Physical Exam Vital Signs Vital Signs - 24 hr 02/26/24 04:29 02/26/24 04:29 02/26/24 04:29 Temperature 37.3 C 37.3 C Temperature Source Oral Oral Pulse Rate 107 H 107 H Pulse Rate [Apical] 107 H Pulse Rate from SpO2 Sensor Pulse Rhythm Regular Regular Pulse Rhythm [Apical] Regular Pulse Strength Normal Pulse Strength [Apical] Normal Respiratory Rate 18 18 18 Respiratory Effort / Characteristics Non-Labored Spontaneous Non-Labored Spontaneous Respiratory Depth Normal Normal Respiratory Pattern Regular Regular Blood Pressure 107/68 Blood Pressure [Right Arm] 107/68 Blood Pressure Mean 81 Blood Pressure Mean [Right Arm] 81 Blood Pressure Position Lying Blood Pressure Position [Right Arm] Lying Pulse Oximetry 96 96 96 Oxygen Delivery Method Nasal Cannula Nasal Cannula Nasal Cannula Oxygen Flow Rate 2 Sepsis Recent Fever Within 48 Hours No Sepsis New/Unexplained Change in Mental Status N/A Sepsis Action Taken by Nursing No Action Required 02/26/24 04:34 02/26/24 04:34 02/26/24 04:40 Temperature Temperature Source Pulse Rate 105 H 105 H 107 H Pulse Rate [Apical] Pulse Rate from SpO2 Sensor 105 H 107 H Pulse Rhythm Pulse Rhythm [Apical] Pulse Strength Pulse Strength [Apical] Respiratory Rate 17 15 Respiratory Effort / Characteristics Respiratory Depth Respiratory Pattern Blood Pressure Blood Pressure [Right Arm] Blood Pressure Mean Blood Pressure Mean [Right Arm] Blood Pressure Position Blood Pressure Position [Right Arm] Pulse Oximetry 93 92 Oxygen Delivery Method Oxygen Flow Rate Sepsis Recent Fever Within 48 Hours Sepsis New/Unexplained Change in Mental Status Sepsis Action Taken by Nursing 02/26/24 04:50 02/26/24 04:56 02/26/24 04:56 Temperature Temperature Source Pulse Rate 107 H 102 H Pulse Rate [Apical] Pulse Rate from SpO2 Sensor 107 H 102 H Pulse Rhythm Pulse Rhythm [Apical] Pulse Strength Pulse Strength [Apical] Respiratory Rate 16 12 Respiratory Effort / Characteristics Respiratory Depth Respiratory Pattern Blood Pressure 145/85 H Blood Pressure [Right Arm] Blood Pressure Mean 127 Blood Pressure Mean [Right Arm] Blood Pressure Position Blood Pressure Position [Right Arm] Pulse Oximetry 90 97 Oxygen Delivery Method Oxygen Flow Rate Sepsis Recent Fever Within 48 Hours Sepsis New/Unexplained Change in Mental Status Sepsis Action Taken by Nursing 02/26/24 05:00 02/26/24 05:00 02/26/24 05:20 Temperature Temperature Source Pulse Rate 100 H 100 H Pulse Rate [Apical] Pulse Rate from SpO2 Sensor 100 H 102 H Pulse Rhythm Pulse Rhythm [Apical] Pulse Strength Pulse Strength [Apical] Respiratory Rate 16 11 L Respiratory Effort / Characteristics Respiratory Depth Respiratory Pattern Blood Pressure 134/72 Blood Pressure [Right Arm] Blood Pressure Mean 103 Blood Pressure Mean [Right Arm] Blood Pressure Position Blood Pressure Position [Right Arm] Pulse Oximetry 97 98 Oxygen Delivery Method Oxygen Flow Rate Sepsis Recent Fever Within 48 Hours Sepsis New/Unexplained Change in Mental Status Sepsis Action Taken by Nursing 02/26/24 05:30 02/26/24 05:30 02/26/24 05:40 Temperature Temperature Source Pulse Rate 94 H 95 H Pulse Rate [Apical] Pulse Rate from SpO2 Sensor 95 H 94 H Pulse Rhythm Pulse Rhythm [Apical] Pulse Strength Pulse Strength [Apical] Respiratory Rate 17 10 L Respiratory Effort / Characteristics Respiratory Depth Respiratory Pattern Blood Pressure 112/59 L Blood Pressure [Right Arm] Blood Pressure Mean 62 Blood Pressure Mean [Right Arm] Blood Pressure Position Blood Pressure Position [Right Arm] Pulse Oximetry 98 99 Oxygen Delivery Method Oxygen Flow Rate Sepsis Recent Fever Within 48 Hours Sepsis New/Unexplained Change in Mental Status Sepsis Action Taken by Nursing 02/26/24 05:50 02/26/24 06:00 02/26/24 06:00 Temperature Temperature Source Pulse Rate 90 91 H Pulse Rate [Apical] Pulse Rate from SpO2 Sensor 92 H 91 H Pulse Rhythm Pulse Rhythm [Apical] Pulse Strength Pulse Strength [Apical] Respiratory Rate 16 15 Respiratory Effort / Characteristics Respiratory Depth Respiratory Pattern Blood Pressure 146/66 H Blood Pressure [Right Arm] Blood Pressure Mean 103 Blood Pressure Mean [Right Arm] Blood Pressure Position Blood Pressure Position [Right Arm] Pulse Oximetry 98 98 Oxygen Delivery Method Oxygen Flow Rate Sepsis Recent Fever Within 48 Hours Sepsis New/Unexplained Change in Mental Status Sepsis Action Taken by Nursing 02/26/24 06:10 02/26/24 06:20 02/26/24 06:30 Temperature Temperature Source Pulse Rate 86 89 Pulse Rate [Apical] Pulse Rate from SpO2 Sensor 87 90 Pulse Rhythm Pulse Rhythm [Apical] Pulse Strength Pulse Strength [Apical] Respiratory Rate 12 14 Respiratory Effort / Characteristics Respiratory Depth Respiratory Pattern Blood Pressure 141/64 H Blood Pressure [Right Arm] Blood Pressure Mean 84 Blood Pressure Mean [Right Arm] Blood Pressure Position Blood Pressure Position [Right Arm] Pulse Oximetry 98 97 Oxygen Delivery Method Oxygen Flow Rate Sepsis Recent Fever Within 48 Hours Sepsis New/Unexplained Change in Mental Status Sepsis Action Taken by Nursing 02/26/24 06:30 02/26/24 06:40 02/26/24 06:43 Temperature 37.0 C Temperature Source Oral Pulse Rate 95 H 92 H 90 Pulse Rate [Apical] Pulse Rate from SpO2 Sensor 94 H 92 H Pulse Rhythm Pulse Rhythm [Apical] Pulse Strength Pulse Strength [Apical] Respiratory Rate 10 L 17 20 Respiratory Effort / Characteristics Respiratory Depth Respiratory Pattern Blood Pressure 133/76 Blood Pressure [Right Arm] Blood Pressure Mean 95 Blood Pressure Mean [Right Arm] Blood Pressure Position Blood Pressure Position [Right Arm] Pulse Oximetry 100 98 94 Oxygen Delivery Method Oxygen Flow Rate Sepsis Recent Fever Within 48 Hours Sepsis New/Unexplained Change in Mental Status Sepsis Action Taken by Nursing 02/26/24 06:44 02/26/24 06:44 02/26/24 06:45 Temperature Temperature Source Pulse Rate 91 H 92 H Pulse Rate [Apical] Pulse Rate from SpO2 Sensor 90 93 H Pulse Rhythm Pulse Rhythm [Apical] Pulse Strength Pulse Strength [Apical] Respiratory Rate 18 18 Respiratory Effort / Characteristics Respiratory Depth Respiratory Pattern Blood Pressure 133/76 Blood Pressure [Right Arm] Blood Pressure Mean 101 Blood Pressure Mean [Right Arm] Blood Pressure Position Blood Pressure Position [Right Arm] Pulse Oximetry 98 98 Oxygen Delivery Method Oxygen Flow Rate Sepsis Recent Fever Within 48 Hours Sepsis New/Unexplained Change in Mental Status Sepsis Action Taken by Nursing 02/26/24 06:45 02/26/24 06:50 02/26/24 06:50 Temperature 37.0 C Temperature Source Oral Pulse Rate 91 H 91 H Pulse Rate [Apical] Pulse Rate from SpO2 Sensor 91 H Pulse Rhythm Regular Pulse Rhythm [Apical] Pulse Strength Normal Pulse Strength [Apical] Respiratory Rate 18 14 Respiratory Effort / Characteristics Respiratory Depth Respiratory Pattern Blood Pressure 145/70 H 139/69 Blood Pressure [Right Arm] Blood Pressure Mean 89 92 Blood Pressure Mean [Right Arm] Blood Pressure Position Lying Blood Pressure Position [Right Arm] Pulse Oximetry 99 99 Oxygen Delivery Method Oxygen Flow Rate 2 Sepsis Recent Fever Within 48 Hours Sepsis New/Unexplained Change in Mental Status Sepsis Action Taken by Nursing 02/26/24 06:50 02/26/24 06:55 02/26/24 06:55 Temperature 36.8 C Temperature Source Oral Pulse Rate 93 H Pulse Rate [Apical] Pulse Rate from SpO2 Sensor Pulse Rhythm Regular Pulse Rhythm [Apical] Pulse Strength Normal Pulse Strength [Apical] Respiratory Rate 18 Respiratory Effort / Characteristics Respiratory Depth Respiratory Pattern Blood Pressure 139/69 144/66 H 144/66 H Blood Pressure [Right Arm] Blood Pressure Mean 106 92 106 Blood Pressure Mean [Right Arm] Blood Pressure Position Lying Blood Pressure Position [Right Arm] Pulse Oximetry 99 Oxygen Delivery Method Oxygen Flow Rate 2 Sepsis Recent Fever Within 48 Hours Sepsis New/Unexplained Change in Mental Status Sepsis Action Taken by Nursing 02/26/24 06:55 02/26/24 07:00 02/26/24 07:00 Temperature 36.9 C Temperature Source Oral Pulse Rate 92 H 92 H Pulse Rate [Apical] Pulse Rate from SpO2 Sensor 91 H Pulse Rhythm Regular Pulse Rhythm [Apical] Pulse Strength Normal Pulse Strength [Apical] Respiratory Rate 13 18 Respiratory Effort / Characteristics Respiratory Depth Respiratory Pattern Blood Pressure 127/61 127/61 Blood Pressure [Right Arm] Blood Pressure Mean 83 86 Blood Pressure Mean [Right Arm] Blood Pressure Position Lying Blood Pressure Position [Right Arm] Pulse Oximetry 98 100 Oxygen Delivery Method Oxygen Flow Rate 2 Sepsis Recent Fever Within 48 Hours Sepsis New/Unexplained Change in Mental Status Sepsis Action Taken by Nursing 02/26/24 07:00 02/26/24 07:05 02/26/24 07:05 Temperature Temperature Source Pulse Rate 94 H 92 H Pulse Rate [Apical] Pulse Rate from SpO2 Sensor 93 H 91 H Pulse Rhythm Pulse Rhythm [Apical] Pulse Strength Pulse Strength [Apical] Respiratory Rate 15 19 Respiratory Effort / Characteristics Respiratory Depth Respiratory Pattern Blood Pressure 134/78 Blood Pressure [Right Arm] Blood Pressure Mean 102 Blood Pressure Mean [Right Arm] Blood Pressure Position Blood Pressure Position [Right Arm] Pulse Oximetry 100 98 Oxygen Delivery Method Oxygen Flow Rate Sepsis Recent Fever Within 48 Hours Sepsis New/Unexplained Change in Mental Status Sepsis Action Taken by Nursing 02/26/24 07:10 02/26/24 07:10 02/26/24 07:15 Temperature Temperature Source Pulse Rate 90 Pulse Rate [Apical] Pulse Rate from SpO2 Sensor 92 H Pulse Rhythm Pulse Rhythm [Apical] Pulse Strength Pulse Strength [Apical] Respiratory Rate 23 Respiratory Effort / Characteristics Respiratory Depth Respiratory Pattern Blood Pressure 152/76 H 153/74 H Blood Pressure [Right Arm] Blood Pressure Mean 100 119 Blood Pressure Mean [Right Arm] Blood Pressure Position Blood Pressure Position [Right Arm] Pulse Oximetry 97 Oxygen Delivery Method Oxygen Flow Rate Sepsis Recent Fever Within 48 Hours Sepsis New/Unexplained Change in Mental Status Sepsis Action Taken by Nursing 02/26/24 07:15 02/26/24 07:20 02/26/24 07:20 Temperature Temperature Source Pulse Rate 89 90 Pulse Rate [Apical] Pulse Rate from SpO2 Sensor 91 H 90 Pulse Rhythm Pulse Rhythm [Apical] Pulse Strength Pulse Strength [Apical] Respiratory Rate 19 21 Respiratory Effort / Characteristics Respiratory Depth Respiratory Pattern Blood Pressure 155/81 H Blood Pressure [Right Arm] Blood Pressure Mean 109 Blood Pressure Mean [Right Arm] Blood Pressure Position Blood Pressure Position [Right Arm] Pulse Oximetry 98 97 Oxygen Delivery Method Oxygen Flow Rate Sepsis Recent Fever Within 48 Hours Sepsis New/Unexplained Change in Mental Status Sepsis Action Taken by Nursing VITALS: Vitals are noted on the nurse's note and reviewed by myself. Vital signs stable. GENERAL: Elderly female speaking in full sentences, in no acute distress, nondiaphoretic, well-developed well-nourished. SKIN: The skin was without rashes, erythema, edema, or bruising. There is no tenting of the skin. Capillary reflex less than 2 seconds. HEAD: Normocephalic atraumatic. EARS: External auditory canals clear EYES: Pupils equal round and reactive to light and accommodation. Conjunctivae without injection, sclerae without icterus. Extraocular movements intact. NOSE: Patent, no discharge. MOUTH: Mucous membranes moist. Pharynx with erythema without exudate.. Uvula midline erythematous and edematous. Airway patent. Tongue does not deviate. NECK: Supple without nuchal rigidity. No lymphadenopathy. No thyromegaly. Cervical spine is nontender. No JVD. HEART: Regular rate and rhythm LUNGS: Clear to auscultation bilaterally without wheezes, rales or rhonchi. No retractions or accessory muscle use. ABDOMEN: Positive bowel sounds x 4. Normal tympanic percussion. Soft, nontender, without masses or organomegaly. Iqbal sign negative. No guarding or rebound tenderness. No CVA tenderness Rectal exam: Brown stool guaiac positive. Nurse Kumar present. MUSCULOSKELETAL: No muscle atrophy, erythema, or edema noted. NEURO: Patient was alert and oriented to person place and time. Normal sensation to light and sharp touch. No focal neurological deficits. Course Administered Medications Acyclovir (Acyclovir 400 Mg Tab) 800 mg PO BID MARIA GUADALUPE Stop: 03/27/24 08:59 Last Admin: 02/26/24 09:27 Dose: 800 mg Documented By: RUTH Atorvastatin Calcium (Atorvastatin 40 Mg Tab) 40 mg PO DAILY MARIA GUADALUPE Stop: 03/27/24 08:59 Last Admin: 02/26/24 09:27 Dose: 40 mg Documented By: RUTH Pantoprazole Sodium 40 mg/ (Dextrose) 100 mls @ 20 mls/hr IV Q5H MARIA GUADALUPE Stop: 03/27/24 08:59 Last Admin: 02/26/24 13:47 Dose: 8 mg/hr, 20 mls/hr Documented By: Infusion: 02/26/24 13:47 Dose: Infused Documented By: Admin: 02/26/24 09:28 Dose: 8 mg/hr, 20 mls/hr Documented By: RUTH Sodium Chloride (Nss) 1,000 mls @ 80 mls/hr IV .[id number] MARIA GUADALUPE Stop: 03/27/24 08:30 Last Admin: 02/26/24 09:19 Dose: 80 mls/hr Documented By: RUTH Ampicillin Sodium/Sulbactam Sodium 3,000 mg/ Sodium Chloride 100 mls @ 200 mls/hr IV Q6H MARIA GUADALUPE Stop: 03/07/24 11:59 Last Infusion: 02/26/24 13:14 Dose: Infused Documented By: Admin: 02/26/24 12:37 Dose: 200 mls/hr Documented By: RUTH Insulin Aspart (Insulin Aspart Per Unit Charge) 0 units SC Q6 MARIA GUADALUPE Stop: 03/27/24 12:29 Last Admin: 02/26/24 12:39 Dose: 5 units Documented By: RUTH Co-signed By: DTT Insulin Glargine (Lantus Per Unit Charge) 10 units SQ DAILY MARIA GUADALUPE Stop: 03/27/24 08:59 Last Admin: 02/26/24 09:18 Dose: 10 units Documented By: NMS Co-signed By: DTT Isosorbide Mononitrate (Isosorbide Hendry Extended Rel 30 Mg Tabcr) 30 mg PO DAILY MARIA GUADALUPE Stop: 03/27/24 08:59 Last Admin: 02/26/24 09:27 Dose: 30 mg Documented By: RUTH Levothyroxine Sodium (Levothyroxine Sodium 88 Mcg Tablet) 88 mcg PO DAILYBB MARIA GUADALUPE Stop: 03/27/24 08:59 Last Admin: 02/26/24 09:27 Dose: 88 mcg Documented By: RUTH Magnesium Oxide (Magnesium Oxide 400 Mg Tab) 400 mg PO DAILY MARIA GUADALUPE Stop: 03/27/24 08:59 Last Admin: 02/26/24 09:26 Dose: 400 mg Documented By: RUTH Metoprolol Succinate (Metoprolol Succ 50mg Ext Rel Tab) 50 mg PO DAILY MARIA GUADALUPE Stop: 03/27/24 08:59 Last Admin: 02/26/24 09:27 Dose: 50 mg Documented By: RUTH Oxybutynin Chloride (Oxybutynin Chloride Xl 5 Mg Tabcr) 5 mg PO DAILY MARIA GUADALUPE Stop: 03/27/24 08:59 Last Admin: 02/26/24 09:28 Dose: 5 mg Documented By: RUTH Venlafaxine HCl (Venlafaxine Hcl Xr 150 Mg Capxr) 150 mg PO DAILY MARIA GUADALUPE Stop: 03/27/24 08:59 Last Admin: 02/26/24 09:28 Dose: 150 mg Documented By: RUTH Vibegron (Vibegron 75 Mg Tab) 75 mg PO DAILY MARIA GUADALUPE Stop: 03/27/24 08:59 Last Admin: 02/26/24 09:28 Dose: 75 mg Documented By: NMS Discontinued Medications Acetaminophen (Acetaminophen 325 Mg Tab) 650 mg PO NOW STA Stop: 02/26/24 08:32 Last Admin: 02/26/24 09:26 Dose: 650 mg Documented By: RUTH Sodium Chloride (Nss) 1,000 mls @ 999 mls/hr IV .Q1H1M ONE Stop: 02/26/24 05:29 Last Infusion: 02/26/24 06:56 Dose: Infused Documented By: Admin: 02/26/24 05:30 Dose: 999 mls/hr Documented By: IDD Ampicillin Sodium/Sulbactam Sodium 3,000 mg/ Sodium Chloride 100 mls @ 200 mls/hr IV NOW STA Stop: 02/26/24 05:07 Last Infusion: 02/26/24 06:47 Dose: Infused Documented By: Admin: 02/26/24 06:07 Dose: 200 mls/hr Documented By: DANIEL Magnesium Sulfate/Dextrose (Magnesium Sulfate / D5w) 1 gm in 100 mls @ 100 mls/hr IV Q1H MARIA GUADALUPE Stop: 02/26/24 07:14 Last Infusion: 02/26/24 10:28 Dose: Infused Documented By: Admin: 02/26/24 06:47 Dose: 100 mls/hr Documented By: Infusion: 02/26/24 06:30 Dose: Infused Documented By: Admin: 02/26/24 05:30 Dose: 100 mls/hr Documented By: IDArmand Pantoprazole Sodium 80 mg/ (Dextrose) 120 mls @ 480 mls/hr IV ONE STA Stop: 02/26/24 05:30 Last Infusion: 02/26/24 06:30 Dose: Infused Documented By: Admin: 02/26/24 06:08 Dose: 480 mls/hr Documented By: IDD Famotidine (Pepcid 20mg Iv Push) 20 mg in 5 mls @ 2.5 mls/min IV NOW STA Stop: 02/26/24 05:17 Last Admin: 02/26/24 05:30 Dose: 2.5 mls/min Documented By: IDD Magnesium Sulfate/Dextrose (Magnesium Sulfate / D5w) 1 gm in 100 mls @ 50 mls/hr IV Q2H MARIA GUADALUPE Stop: 02/26/24 12:30 Last Infusion: 02/26/24 12:58 Dose: Infused Documented By: Admin: 02/26/24 10:58 Dose: 50 mls/hr Documented By: Infusion: 02/26/24 10:58 Dose: Infused Documented By: Admin: 02/26/24 09:19 Dose: 50 mls/hr Documented By: RUTH Insulin Aspart (Insulin Aspart Per Unit Charge) 0 units SC Q6H [facility] Stop: 03/27/24 08:30 Last Admin: 02/26/24 09:19 Dose: 6 units Documented By: RUTH Co-signed By: PIYUSH Ioversol (Optiray 320 100ml) 100 ml IV ONCE ONE Stop: 02/26/24 05:13 Last Admin: 02/26/24 05:12 Dose: 89 ml Documented By: ROBERT Ondansetron HCl (Ondansetron Inj 2 Mg/Ml 2 Ml Vial) 4 mg IV NOW STA Stop: 02/26/24 05:18 Last Admin: 02/26/24 05:30 Dose: 4 mg Documented By: DANIEL Critical Care Time Critical Care Time: Yes Total Critical Care Time: 35 Medical Decision Making Medical Records Attestation: I reviewed the patient's medical records. Home Medications Current Medication List: was personally reviewed by me Laboratory Data Attestation: I reviewed the patient's lab results. 02/26/24 04:40 02/26/24 04:40 Lab Results 02/26/24 02/26/24 02/26/24 Range/Units 04:30 04:40 05:01 WBC 21.18 H (4.8-10.8) K/ul RBC 1.97 L (4.20-5.40) M/uL Hgb 7.9 L (12.0-16.0) g/dl POC Hgb 7.5 L (12.0-16.0) g/dl Hct 23.8 L (37.0-47.0) % POC Hct 22 L (37-47) % MCV 120.8 H (80.0-100.0) fL MCH 40.1 H (25.0-34.0) pg MCHC 33.2 (32.0-36.0) g/dL RDW Std Deviation 64.2 H (36.4-46.3) fL RDW Coeff of Evin 14.8 H (11.5-14.5) % Plt Count 10 L* (130-400) K/uL MPV 13.1 H (9.4-12.4) fL Neutrophils % (Manual) 69 % Lymphocytes % (Manual) 23 % Eosinophils % (Manual) 1 % Blast Cells % (Manual) 7 % Neutrophils # (Manual) 14.61 H (1.40-6.50) K/uL Total Absolute Neuts 14.61 H (1.4-6.5) K/uL Lymphocytes # (Manual) 4.87 H (1.2-3.4) K/uL Total Abs Lymphocytes 4.87 H (1.2-3.4) K/uL Eosinophils # (Manual) 0.21 (0-0.50) K/uL Blast Cells # (Man) 1.48 H (0-0) K/uL Hyposegmented Neuts 1+ Hypogranular Neuts 1+ Dohle Bodies 1+ Polychromasia 1+ Macrocytosis Present Peripher Smr Path Cons POC Sodium 139 (135-144) mmol/L Sodium 137 (136-145) mmol/L POC Potassium 3.6 (3.3-5.0) mmol/L Potassium 3.6 (3.5-5.1) mmol/L POC Chloride 105 (101-112) mmol/L Chloride 105 (98-107) mmol/L Carbon Dioxide 23 (21-32) mmol/L POC Total CO2 23 L (24-31) mmol/L Anion Gap 9 (3-11) POC Anion Gap 15.0 L (16-25) mmol/L POC BUN 20 H (7-18) mg/dl BUN 21 (6-23) mg/dl Creatinine 1.03 (0.6-1.2) mg/dl POC Creatinine 1.0 (0.6-1.3) mg/dl Est Cr Clr Drug Dosing 44.9 ml/min Est GFR ( Amer) 61.6 ml/min Est GFR (Non-Af Amer) 53.1 ml/min BUN/Creatinine Ratio 20.4 H (10-20) Glucose 255 H (70-99(Fasting)) mg/dl POC Glucose (other) 257 H (70-99) mg/dl Lactate 1.7 (0.4-2.0) mmol/L Calcium 8.4 L (8.6-10.3) mg/dl POC Ioniz Calcium Dalila 1.10 L (1.12-1.32) mmol/l Magnesium 1.0 L (1.7-2.4) mg/dl Total Bilirubin 0.5 (0.2-1.0) mg/dl Direct Bilirubin 0.1 (0-0.2) mg/dl AST 12 L (13-39) U/L ALT 17 (7-52) U/L Alkaline Phosphatase 73 (34-104) U/L Troponin I High Sens 13.8 (0-14) pg/ml Total Protein 7.0 (6.0-8.3) gm/dl Albumin 3.8 (3.4-5.0) gm/dl Procalcitonin 0.51 H (0-0.5) ng/ml Adenovirus (PCR) Not Detected (NotDetected) B. pertussis DNA (PCR) Not Detected (NotDetected) B.parapertussis DNA PCR Not Detected (NotDetected) C. pneumoniae DNA (PCR) Not Detected (NotDetected) Coronavirus OC43 (PCR) Not Detected (NotDetected) Coronavirus HKU1 (PCR) Not Detected (NotDetected) Coronavirus 229E (PCR) Not Detected (NotDetected) SARS-CoV-2 (PCR) Not Detected (NotDetected) Coronavirus NL63 (PCR) Not Detected (NotDetected) Human Metapneumovir PCR Not Detected (NotDetected) Influenza Type A (PCR) Not Detected (NotDetected) Influenza Type B (PCR) Not Detected (NotDetected) M. pneumoniae (PCR) Not Detected (NotDetected) Parainfluenza 1 (PCR) Not Detected (NotDetected) Parainfluenza 2 (PCR) Not Detected (NotDetected) Parainfluenza 3 (PCR) Not Detected (NotDetected) Parainfluenza 4 (PCR) Not Detected (NotDetected) RSV (PCR) Not Detected (NotDetected) Entero/Rhino (PCR) Not Detected (NotDetected) Group A Strep (PCR) NOT DETECTED (NotDetected) Blood Type Antibody Screen Crossmatch 02/26/24 Range/Units 06:03 WBC (4.8-10.8) K/ul RBC (4.20-5.40) M/uL Hgb (12.0-16.0) g/dl POC Hgb (12.0-16.0) g/dl Hct (37.0-47.0) % POC Hct (37-47) % MCV (80.0-100.0) fL MCH (25.0-34.0) pg MCHC (32.0-36.0) g/dL RDW Std Deviation (36.4-46.3) fL RDW Coeff of Evin (11.5-14.5) % Plt Count (130-400) K/uL MPV (9.4-12.4) fL Neutrophils % (Manual) % Lymphocytes % (Manual) % Eosinophils % (Manual) % Blast Cells % (Manual) % Neutrophils # (Manual) (1.40-6.50) K/uL Total Absolute Neuts (1.4-6.5) K/uL Lymphocytes # (Manual) (1.2-3.4) K/uL Total Abs Lymphocytes (1.2-3.4) K/uL Eosinophils # (Manual) (0-0.50) K/uL Blast Cells # (Man) (0-0) K/uL Hyposegmented Neuts Hypogranular Neuts Dohle Bodies Polychromasia Macrocytosis Peripher Smr Path Cons POC Sodium (135-144) mmol/L Sodium (136-145) mmol/L POC Potassium (3.3-5.0) mmol/L Potassium (3.5-5.1) mmol/L POC Chloride (101-112) mmol/L Chloride (98-107) mmol/L Carbon Dioxide (21-32) mmol/L POC Total CO2 (24-31) mmol/L Anion Gap (3-11) POC Anion Gap (16-25) mmol/L POC BUN (7-18) mg/dl BUN (6-23) mg/dl Creatinine (0.6-1.2) mg/dl POC Creatinine (0.6-1.3) mg/dl Est Cr Clr Drug Dosing ml/min Est GFR ( Amer) ml/min Est GFR (Non-Af Amer) ml/min BUN/Creatinine Ratio (10-20) Glucose (70-99(Fasting)) mg/dl POC Glucose (other) (70-99) mg/dl Lactate (0.4-2.0) mmol/L Calcium (8.6-10.3) mg/dl POC Ioniz Calcium Dalila (1.12-1.32) mmol/l Magnesium (1.7-2.4) mg/dl Total Bilirubin (0.2-1.0) mg/dl Direct Bilirubin (0-0.2) mg/dl AST (13-39) U/L ALT (7-52) U/L Alkaline Phosphatase (34-104) U/L Troponin I High Sens (0-14) pg/ml Total Protein (6.0-8.3) gm/dl Albumin (3.4-5.0) gm/dl Procalcitonin (0-0.5) ng/ml Adenovirus (PCR) (NotDetected) B. pertussis DNA (PCR) (NotDetected) B.parapertussis DNA PCR (NotDetected) C. pneumoniae DNA (PCR) (NotDetected) Coronavirus OC43 (PCR) (NotDetected) Coronavirus HKU1 (PCR) (NotDetected) Coronavirus 229E (PCR) (NotDetected) SARS-CoV-2 (PCR) (NotDetected) Coronavirus NL63 (PCR) (NotDetected) Human Metapneumovir PCR (NotDetected) Influenza Type A (PCR) (NotDetected) Influenza Type B (PCR) (NotDetected) M. pneumoniae (PCR) (NotDetected) Parainfluenza 1 (PCR) (NotDetected) Parainfluenza 2 (PCR) (NotDetected) Parainfluenza 3 (PCR) (NotDetected) Parainfluenza 4 (PCR) (NotDetected) RSV (PCR) (NotDetected) Entero/Rhino (PCR) (NotDetected) Group A Strep (PCR) (NotDetected) Blood Type A Positive Antibody Screen NEGATIVE Crossmatch See Detail Imaging Data Attestation: I personally reviewed and interpreted this imaging study as follows: Radiologist's Impression: Chest X-Ray 02/26/24 04:25 XR chest 1V portable HISTORY: Sepsis COMPARISON: 04/10/2023. FINDINGS: The cardiac silhouette is borderline enlarged. No focal lung consolidations to suggest a pneumonia. No evidence for pulmonary edema. A right jugular Port-A-Cath terminates in the SVC. No acute fractures. IMPRESSION: No acute process. ACT 112: Negative or not required by law. Electronically signed by: Bogdan Lyon M.D. 02/26/2024 7:08 AM Soft Tissue Neck CT 02/26/24 04:30 Exam(s): CT NECK With Contrast IV Amt: 89 ml optiray 320 EXAM: CT Neck With Intravenous Contrast CLINICAL HISTORY: Reason for exam: dysphagia, fever, ? infx. TECHNIQUE: Axial computed tomography images of the neck with intravenous contrast. Automated exposure control was utilized for the study. A dose lowering technique was utilized adhering to the principles of ALARA. CONTRAST: Patient received 89 ml optiray 320 of IV contrast COMPARISON: No relevant prior studies available. FINDINGS: Pharynx: There is mucosal hyperenhancement identified in the pharyngeal wall. No significant tonsillar enlargement. No peritonsillar abscess. Larynx: Unremarkable. Normal epiglottis. Trachea: Unremarkable. Retropharyngeal space: Unremarkable. Submandibular/parotid glands: Unremarkable. Glands are normal in size. Thyroid: Unremarkable. No enlarged or calcified nodules. Bones/joints: No acute fracture. Soft tissues: Unremarkable. Vasculature: There is at least 90% stenosis seen at the origin of the right internal carotid artery due to the presence of extensive calcified atherosclerotic plaque. Moderate atherosclerotic calcification seen in the left carotid bulb. Lymph nodes: Unremarkable. No lymphadenopathy. Lung apices: Unremarkable as visualized. IMPRESSION: Mucosal hyperenhancement in the pharyngeal wall which can be associated with pharyngitis. No evidence of peritonsillar abscess or tonsillitis. Hemodynamically significant stenosis at the origin of the right internal carotid artery with more than 90% luminal obstruction Electronically signed by: Jackson Schafer MD 02/26/24 06:00 AM MDM Narrative Prior records/ancillary studies reviewed and summarized above. Nursing notes reviewed. Additional history obtained from EMS. The patient's history was concerning for fever, chills, sore throat and diarrhea in a patient with a history of E. coli bacteremia. Differential diagnosis: Etiologies such as metabolic, infection, hypo/hyperglycemia, electrolyte abnormalities, cardiac sources, intracerebral event, toxicologic, neurologic, as well as others were entertained. Physical examination: As above. ER treatment provided: IV Lock An order was placed for continuous cardiac monitoring. The monitor shows a rate of 60-100 with a sinus rhythm per my interpretation. IV fluids, Unasyn, magnesium, platelets, Protonix, Pepcid, Zofran On reassessment the patient felt better. Diagnostics interpretation by me: ECG: Ordered for weakness EKG: Normal sinus, normal intervals, no acute ST-T wave changes. Impression sinus tachycardia independently interpreted by myself I think arrhythmia is unlikely. EKG shows normal sinus rhythm with no interval abnormalities such as QT prolongation or WPW. There are no findings to suggest Brugada syndrome. Cardiac monitoring in the emergency department reveals no tachycardic or bradycardic dysrhythmia. Hypertrophic cardiomyopathy was considered but there are no clear historical elements pointing toward this. EKG is not suggestive. The QRS voltage is not extremely large and there are no suggestive Q waves. The labs Independently Interpreted by myself revealed anemia which is about baseline for the patient. Thrombocytopenia which is lower than baseline for the patient. Hemoccult was positive so patient was transfused platelets. Blood cultures pending Imaging studies: Chest x-ray with no acute consolidation, pneumothorax or free air per my independent interpretation Neck CT as above Consultation: A consultation was placed with the hospitalist. The case was discussed and diagnostics were reviewed. The patient was evaluated in the ER for further treatment. Exam and history seem consistent with thrombocytopenia with active bleeding with low magnesium. Patient was medicated as above. She was given a pack of platelets. Type and screen was sent. She was consented to blood if warranted. CT of the neck was negative for epiglottitis. Stool culture has not been submitted by the patient at time of admission. Medicine consulted and the case was discussed. She will be admitted to the medical service for further evaluation and treatment.By the evaluation outlined above emergent etiologies such as cardiac sources, intracerebral event, toxologic, neurologic, abnormalities blood glucose, metabolic, as well as others were deemed relatively unlikely. The pt informed about the findings as listed above. All questions were answered and the chart was completed utilizing [employer] voice recognition software. Grammatical errors, random word insertions, pronoun errors, and incomplete sentences are an occassional consequence of this system due to software limitations, ambient noise, and hardware issues. Any formal questions or concerns about the content, text, or information contained within the body of this dictation should be directly addressed to the physician escrow assistant for clarification. Pleased with the treatment. Return instructions were outlined and the patient was discharged in stable condition. Impression & Plan Thrombocytopenia, Hypomagnesemia, Blood in stool, Diarrhea Discharge Plan Visit Data Chief Complaint: Flu Like Symptoms Stated Complaint: FLU LIKE SYMPTOMS ED Provider: Sofya Herzog ED Midlevel Provider: Deja Valencia Discharge Problem: Thrombocytopenia, Hypomagnesemia, Blood in stool, Diarrhea Patient Disposition: Admitted As Inpatient Condition: Fair Discharge Instructions Interventions: ED Discharge Assessment Last Done: 02/26/24 08:25
[2024-02-26 16:50] LABS: Hematocrit (blood only) 23.1 % (37.0-47.0); Hemoglobin 7.8 g/dl (12.0-16.0); Mean Corpuscular Hemoglobin 37.7 pg (25.0-34.0); Mean Corpuscular Hgb Conc 33.8 g/dL (32.0-36.0); Mean Corpuscular Volume 111.6 fL (80.0-100.0); Mean Platelet Volume 9.1 fL (9.4-12.4); Platelet Count 22 K/uL (130-400); Red Blood Count 2.07 M/uL (4.20-5.40); White Blood Count 17.45 K/ul (4.8-10.8)
[2024-02-26 17:08] LABS: ALC (manual) 3.84 K/uL (1.2-3.4); ANC (manual) 12.22 K/uL (1.4-6.5); Blast # (manual) 0.87 K/uL (0-0); Blast Cells % (manual) 5 %; Dohle Bodies 2+; Eosinophils # (manual) 0.35 K/uL (0-0.50); Eosinophils % (manual) 2 %; Hypogranular Neutrophils 2+; Lymphocytes # (manual) 3.84 K/uL (1.2-3.4); Lymphocytes % (manual) 22 %; Metamyelocytes # (manual) 0.17 K/uL (0-0); Metamyelocytes % (manual) 1 %; Neutrophils # (manual) 12.22 K/uL (1.40-6.50); Neutrophils % (manual) 70 %
--- NOTE | 2024-02-26 17:28 | Communication Note ---
Date of Service: February 26, 2024 The patient was seen and examined in ICU. She was admitted with throat pain secondary to acute pharyngitis with history of MDS and anemia and thrombocytope sheryl. Has had black positive stool as well. Received 1 unit of packed red cell and also 2 units of platelets and has been receiving intravenous H2 carlos. She remains stable. She will have a full progress note tomorrow. Dr Brooklyn Barrera
[2024-02-27] MEDS: OLANZapine 10 MG/2.1 ML SDV IM STA ×3 (03:39→21:02)
[2024-02-27 05:12] LABS: BUN Creatinine Ratio 14.1 (10-20); Calcium 8.2 mg/dl (8.6-10.3); Creatinine Clr Calc Pharmacy 59.3 ml/min; Est GFR (African American) 86.2 ml/min; Est GFR (Non-African American) 74.4 ml/min; Magnesium 1.6 mg/dl (1.7-2.4); Phosphorus 2.2 mg/dl (2.5-4.9); Potassium 3.1 mmol/L (3.5-5.1)
[2024-02-27 05:27] LABS: Hematocrit (blood only) 20.8 % (37.0-47.0); Hemoglobin 7.4 g/dl (12.0-16.0); Mean Corpuscular Hemoglobin 38.1 pg (25.0-34.0); Mean Corpuscular Hgb Conc 35.6 g/dL (32.0-36.0); Mean Corpuscular Volume 107.2 fL (80.0-100.0); Mean Platelet Volume 10.2 fL (9.4-12.4); Platelet Count 17 K/uL (130-400); Red Blood Count 1.94 M/uL (4.20-5.40); White Blood Count 12.47 K/ul (4.8-10.8)
[2024-02-27] MEDS ORDERED: SODIUM CHLORIDE 0.9% 250 ML IV PRN (05:32)
[2024-02-27] MEDS ORDERED: POTASSIUM PHOS 3 MMOL/1 ML INFUSION IV STA (05:36)
[2024-02-27] MEDS: POTASSIUM CHLORIDE / WTR 10 MEQ/100 ML PLCT IV SCH (05:54)
[2024-02-27] MEDS: MAGNESIUM SULFATE / D5W 1 GM/100 ML BAG IV SCH (05:54)
[2024-02-27] MEDS: ACETAMINOPHEN 325 MG TAB PO ONE (05:55)
[2024-02-27 06:04] LABS: Polychromasia 1+
[2024-02-27 07:08] LABS: Hypogranular Neutrophils 3+
[2024-02-27 07:25] LABS: ALC (manual) 2.49 K/uL (1.2-3.4); Basophils # (manual) 0.12 K/uL (0-0.2); Basophils % (manual) 1 %; Blast # (manual) 0.87 K/uL (0-0); Blast Cells % (manual) 7 %; Eosinophils # (manual) 0.25 K/uL (0-0.50); Eosinophils % (manual) 2 %; Estimated Average Glucose 163 mg/dl; Hemoglobin A1C 7.3 % (4.5-5.6); Lymphocytes # (manual) 2.49 K/uL (1.2-3.4); Lymphocytes % (manual) 20 %; Monocytes # (manual) 0.12 K/uL (0.11-0.59); Monocytes % (manual) 1 %; Neutrophils % (manual) 69 %
[2024-02-27] MEDS ORDERED: FUROSEMIDE INJ 20 MG/2 ML VIAL IV ONE (08:00)
[2024-02-27] MEDS: POTASSIUM PHOSPHATE 21 MMOL in SODIUM CHLORIDE 0.9% 500 ML IV ONE (09:27)
--- NOTE | 2024-02-27 12:00 | Hospitalist Progress Note ---
Date of Service February 27, 2024 Assessment & Plan (1) Diarrhea: Plan: 71-year-old female with past med history significant for type 2 diabetes, hypothyroidism, hyperlipidemia, hypomagnesemia, history of IV iron overload transfusional, diabetic retinopathy, interstitial lung disease, hypertension, history of CAD s/p stent in 2017, symptomatic stenosis of right carotid artery, GERD, urinary incontinence, generalized osteoarthritis, neuropathy due to chemotherapy, high-grade myelodysplastic syndrome s/p stem cell transplant, thrombocytopenia, recurrent major depression, who lives at home with her and ambulates with a cane comes because of ongoing severe sore throat since last 1 week which is getting progressively worse and since yesterday having nausea, vomiting and diarrhea which prompted her to come to the ER. She was seen by [facility] yesterday and was given dose of Rocephin and prescribed amoxicillin but was not filled yet. Having headache 6/10 in severity. Has chronic neck pain. Can move her neck okay. Vision is not great. Some runny nose. No cough. No fevers. No chest pain. No shortness of breath. Has some mild right lower quadrant abdominal pain. Micturating not much. Denies any burning micturition. Denies any blood in the stools. But Hemoccult was positive in the ER. No swelling the legs. No rash. Hemodynamics are okay. Nausea vomiting and diarrhea Has leukocytosis Follow stool studies-pending IV fluids Close monitor Supportive care Blood in the stools Hemoccult positive Platelets are 10 Getting platelet transfusion N.p.o., IV fluids Protonix drip Appreciate GI input and recommendation CAD s/p stent On statin, Imdur, metoprolol succinate Interstitial lung disease Follows with pulmonary Hypothyroidism On Synthyroid Hyperlipidemia On statin GERD Omeprazole Urinary incontinence Solifenacin, Myrbetriq Major depression On venlafaxine DVT prophylaxis SCDs patient has thrombocytopenia Disposition Telemetry Full code per my discussion with the daughter (2) Myelodysplastic syndrome: Plan: Severe myelodysplastic syndrome Diagnosed in 2019 and received 9 cycles of Dacogen and underwent clinic stem cell transplantation in August 2021 Recurrence of myelodysplasia syndrome Currently not on any immunosuppressant medications Currently not pursuing any active treatment per heme-onc notes CBC checked weekly Consider for blood transfusion hemoglobin less than 8 and platelet count less than 10 as per heme-onc Received 2 units of PRBCs since admission and also received platelet transfusion Hemoglobin is 7.4 this morning and will receive the second unit today Platelet has been 17 Will monitor Pancytopenia Thrombocytopenia secondary to MDS Electrolyte imbalance Has hypokalemia, hypophosphatemia and hypomagnesemia Will replace and monitor (3) Acute confusion: Plan: Noted to be acutely confused since last evening Examined by me this morning and the did not have any significant confusion The confusion seems to be intermittent Will get a CT scan to make sure there is no bleed given severe thrombocytosis jacinto Could be secondary to ongoing infection Will monitor (4) Acute pharyngitis: Plan: Severe sore throat Having difficulty swallowing Soft tissue neck showed possible pharyngitis. No evidence of peritonsillar abscess or tonsillitis Received intravenous Unasyn in the emergency room and will continue Appreciate his speech therapy evaluation and recommendation (5) CAD (coronary artery disease): (6) Hypertension: Plan: Blood pressure remains on the upper side Will increase metoprolol to 50 mg twice daily (7) Hypothyroidism: Plan: Continue supplement (8) DM type 2 (diabetes mellitus, type 2): Plan: Diabetes Hold metformin Reduce Lantus to 10 units daily as patient n.p.o. Sliding scale Will monitor Admission and Anticipated Discharge Date Admission Date: February 26, 2024 Subjective 02/27/2024 The patient was seen and examined in ICU in the setting of telemetry unit She was noted to be acutely confused since last night by the nursing service This morning she seems to be alert , awake and oriented to me She feels weak and lethargic but denies any other significant symptom Review of Systems Review of Systems: All systems reviewed and are unremarkable except as noted below Physical Exam Physical Exam: Lying in bed without any acute distress Constitutional: well developed, well nourished, + ill appearing and average body habitus Eyes: PERRL, conjunctivae normal, anicteric sclerae ENMT: external ear and nose normal, oropharynx normal Neck: trachea midline, no thyromegaly Respiratory: no respiratory distress Auscultation: lungs clear to auscultation bilaterally Cardiovascular: Rate/Rhythm: regular rate and regular rhythm; not tachycardic Heart Sounds: normal S1 and normal S2; no murmur Extremities: + edema (Trace edema bilaterally) Gastrointestinal (Abdomen): Inspection/Auscultation: normal bowel sounds; abdomen not distended Percussion/Palpation: abdomen soft; abdomen nontender Musculoskeletal: No acute arthritis involving any of the joint Neurologic: normal touch/pain/proprioception and moves all extremities; no focal motor deficits Alert, awake and oriented x 3, remains generally weak Lymphatic: no cervical or axillary lymphadenopathy Results & Data Results & Data Vital Signs (Past 12 Hours) Vital Signs Temp Pulse Resp BP Pulse Ox Pulse Ox O2 Del Method 02/27/24 09:34 36.7 C 84 15 160/108 H 96 02/27/24 09:33 36.7 C 84 160/108 H 96 02/27/24 08:21 36.3 C L 77 15 143/105 H 93 02/27/24 07:50 84 18 92 02/27/24 07:45 80 16 97 02/27/24 07:45 167/73 H 02/27/24 07:40 82 24 95 02/27/24 07:33 79 15 97 02/27/24 07:33 150/73 H 02/27/24 07:30 90 14 02/27/24 07:21 36.7 C 72 150/73 H 97 02/27/24 07:20 97 H 02/27/24 07:16 188/150 H 02/27/24 07:16 109 H 02/27/24 07:10 Room Air 02/27/24 07:10 111 H 02/27/24 07:01 150/86 H 02/27/24 07:01 93 H 20 02/27/24 07:00 97 H 21 02/27/24 06:51 36.9 C 94 H 18 143/75 H 97 02/27/24 06:50 76 16 02/27/24 06:46 82 02/27/24 06:46 78 14 02/27/24 06:46 143/75 H 02/27/24 06:36 36.7 C 81 14 119/89 97 02/27/24 06:36 36.7 C 81 14 119/89 97 02/27/24 06:32 82 14 02/27/24 06:32 119/89 02/27/24 06:22 75 16 99 02/27/24 06:22 146/79 H 02/27/24 06:19 37.0 C 75 18 162/82 H 100 02/27/24 06:17 78 20 100 04/16/24 06:17 162/82 H 02/27/24 06:15 77 16 02/27/24 06:15 149/73 H 02/27/24 06:11 153/75 H 02/27/24 06:11 78 20 02/27/24 06:00 85 18 02/27/24 05:03 91 H 25 H 02/27/24 04:25 97 02/27/24 04:00 36.6 C 02/27/24 04:00 80 18 99 02/27/24 04:00 162/74 H 02/27/24 03:44 132/73 02/27/24 03:44 77 14 93 02/27/24 03:00 78 15 98 02/27/24 02:42 79 16 100 02/27/24 02:42 169/79 H 02/27/24 02:00 75 15 99 02/27/24 01:00 73 20 100 02/27/24 00:00 36.6 C 02/27/24 00:00 73 12 100 02/27/24 00:00 150/75 H 02/27/24 00:00 74 O2 Del Method O2 Flow Rate O2 Flow Rate 02/27/24 09:34 4 02/27/24 09:33 02/27/24 08:21 02/27/24 07:50 02/27/24 07:45 02/27/24 07:45 02/27/24 07:40 02/27/24 07:33 02/27/24 07:33 02/27/24 07:30 02/27/24 07:21 02/27/24 07:20 02/27/24 07:16 02/27/24 07:16 02/27/24 07:10 02/27/24 07:10 02/27/24 07:01 02/27/24 07:01 02/27/24 07:00 02/27/24 06:51 4 02/27/24 06:50 02/27/24 06:46 02/27/24 06:46 02/27/24 06:46 02/27/24 06:36 4 02/27/24 06:36 4 02/27/24 06:32 02/27/24 06:32 02/27/24 06:22 02/27/24 06:22 02/27/24 06:19 4 02/27/24 06:17 02/27/24 06:17 02/27/24 06:15 02/27/24 06:15 02/27/24 06:11 02/27/24 06:11 02/27/24 06:00 02/27/24 05:03 02/27/24 04:25 Oxymask 4 02/27/24 04:00 02/27/24 04:00 02/27/24 04:00 02/27/24 03:44 02/27/24 03:44 02/27/24 03:00 02/27/24 02:42 02/27/24 02:42 02/27/24 02:00 02/27/24 01:00 02/27/24 00:00 02/27/24 00:00 02/27/24 00:00 02/27/24 00:00 Laboratory Results Short CBC 02/26/24 02/27/24 Range/Units 16:18 04:22 WBC 17.45 H 12.47 H (4.8-10.8) K/ul Hgb 7.8 L 7.4 L (12.0-16.0) g/dl Hct 23.1 L 20.8 L* (37.0-47.0) % Plt Count 22 L* D 17 L* (130-400) K/uL BMP 02/27/24 04:22 Sodium 139 Potassium 3.1 L Chloride 108 H Carbon Dioxide 25 BUN 11 Creatinine 0.78 Glucose 155 H Calcium 8.2 L Medications Administered Current Inpatient Medications Acyclovir (Acyclovir 400 Mg Tab) 800 mg PO BID MARIA GUADALUPE Stop: 03/27/24 08:59 Last Admin: 02/27/24 09:46 Dose: 800 mg Atorvastatin Calcium (Atorvastatin 40 Mg Tab) 40 mg PO DAILY MARIA GUADALUPE Stop: 03/27/24 08:59 Last Admin: 02/27/24 09:46 Dose: 40 mg Dextrose (Dextrose 50% 50 Ml Syringe) 25 - 50 ml IV UD PRN; Protocol PRN Reason: Hypoglycemia Protocol Stop: 03/27/24 08:30 Glucagon (Glucagon For Inj 1 Mg Vial) 1 mg SQ UD PRN; Protocol PRN Reason: Hypoglycemia Protocol Stop: 03/27/24 08:30 Glucose (Glucose 10 Tab/Tube) 4 - 8 tab PO UD PRN; Protocol PRN Reason: Hypoglycemia Treatment Stop: 03/27/24 08:30 Glucose (Glucose 40% Gel 15 Gm Tube) 15 - 30 gm PO UD PRN; Protocol PRN Reason: Hypoglycemia Protocol Stop: 03/27/24 08:30 Pantoprazole Sodium 40 mg/ (Dextrose) 100 mls @ 20 mls/hr IV Q5H [facility] Stop: 03/27/24 08:59 Last Admin: 02/27/24 10:45 Dose: 8 mg/hr, 20 mls/hr Sodium Chloride (Nss) 1,000 mls @ 80 mls/hr IV .[id number] [facility] Stop: 03/27/24 08:30 Last Admin: 02/27/24 10:45 Dose: 80 mls/hr Ampicillin Sodium/Sulbactam Sodium 3,000 mg/ Sodium Chloride 100 mls @ 200 mls/hr IV Q6H [facility] Stop: 03/07/24 11:59 Last Infusion: 02/27/24 08:29 Dose: Infused Sodium Chloride (Nss) 250 mls @ 15 mls/hr IV .[id number] PRN PRN Reason: For Transfusion Duration Stop: 02/27/24 15:32 Potassium Phosphate 21 mmol/ (Sodium Chloride) 507 mls @ 88 mls/hr IV ONE ONE Stop: 02/27/24 14:45 Last Admin: 02/27/24 09:27 Dose: 88 mls/hr Insulin Aspart (Insulin Aspart Per Unit Charge) 0 units SC Q6 [facility] Stop: 03/27/24 12:29 Last Admin: 02/27/24 06:25 Dose: 2 units Insulin Glargine (Lantus Per Unit Charge) 10 units SQ DAILY [facility] Stop: 03/27/24 08:59 Last Admin: 02/27/24 09:49 Dose: 10 units Isosorbide Mononitrate (Isosorbide [place] Extended Rel 30 Mg Tabcr) 30 mg PO DAILY [facility] Stop: 03/27/24 08:59 Last Admin: 02/27/24 09:46 Dose: 30 mg Levothyroxine Sodium (Levothyroxine Sodium 88 Mcg Tablet) 88 mcg PO DAILYBB [facility] Stop: 03/27/24 08:59 Last Admin: 02/27/24 05:55 Dose: Not Given Magnesium Oxide (Magnesium Oxide 400 Mg Tab) 400 mg PO DAILY [facility] Stop: 03/27/24 08:59 Last Admin: 02/27/24 09:46 Dose: 400 mg Metoprolol Succinate (Metoprolol Succ 50mg Ext Rel Tab) 50 mg PO DAILY MARIA GUADALUPE Stop: 03/27/24 08:59 Last Admin: 02/27/24 09:46 Dose: 50 mg Miscellaneous (Carbohydrates For Hypoglycemia ) 15 - 30 gm PO UD PRN PRN Reason: Hypoglycemia Protocol Stop: 03/27/24 08:30 Nitroglycerin (Nitroglycerin Sl 0.4 Mg/Tab Tab) 0.4 mg SL Q5M PRN PRN Reason: Chest Pain Stop: 03/27/24 08:30 Ondansetron HCl (Ondansetron Inj 2 Mg/Ml 2 Ml Vial) 4 mg IV Q6H PRN PRN Reason: Nausea Stop: 03/27/24 08:30 Oxybutynin Chloride (Oxybutynin Chloride Xl 5 Mg Tabcr) 5 mg PO DAILY [facility]IA GUADALUPE Stop: 03/27/24 08:59 Last Admin: 02/27/24 09:46 Dose: 5 mg Pantoprazole Sodium (Pantoprazole 40 Mg Tab) 40 mg PO DAILY [facility] GUADALUPE Stop: 03/27/24 08:59 Venlafaxine HCl (Venlafaxine Hcl Xr 150 Mg Capxr) 150 mg PO DAILY [facility]IA GUADALUPE Stop: 03/27/24 08:59 Last Admin: 02/27/24 09:46 Dose: 150 mg Vibegron (Vibegron 75 Mg Tab) 75 mg PO DAILY [facility]IA GUADALUPE Stop: 03/27/24 08:59 Last Admin: 02/27/24 09:46 Dose: 75 mg
--- NOTE | 2024-02-27 12:23 | CT Scan Report ---
CT SCAN OF THE BRAIN WITHOUT IV CONTRAST CLINICAL HISTORY: Change in mental status COMPARISON STUDY: CT of the brain dated 04/10/2023. TECHNIQUE: Unenhanced axial CT scan of the brain is performed from the vertex to the skull base. A do se lowering technique was utilized adhering to the principles of ALARA. The patient was scanned twice due to motion artifact. CT DOSE: 1796.57 mGy.cm FINDINGS: Brain parenchyma: There is age-related involutional change noting mild subcortical and periventricula r microangiopathic disease. There is no hemorrhage, mass effect, or evidence of acute territorial isc hemia by CT criteria. There is unchanged appearance of a 1.1 cm calcified extra-axial nodule along th e right temporal convexity suggestive of a meningioma. Rodriguez-white matter differentiation is preserved . No extra-axial fluid collection is seen. Ventricles, sulci, cisterns: Prominent secondary to involutional change. Intracranial vasculature: There is atherosclerotic calcification of the cavernous carotid artery. Calvarium: Unremarkable. Sinuses and mastoids: There is mild mucosal thickening in the right frontal sinus. The remaining para nasal sinuses are clear. There is trace left mastoid effusion. The right mastoid air cells are well p neumatized. Orbits: The bony orbits are grossly intact. IMPRESSION: There is no hemorrhage, mass effect, or evidence of acute territorial ischemia by CT willian diamond. ACT 112: Negative or not required by law. Electronically signed by: Maurice Handy M.D. 02/27/2024 12:22 PM
[2024-02-27] MEDS ORDERED: LORazepam 1 MG/1 ML SYR ED Inj Use IV STA (14:49)
[2024-02-27] MEDS: OLANZapine ZYDIS 5 MG ORALLY DIS. TAB PO STA (15:05)
[2024-02-27 16:04] LABS: Hematocrit (blood only) 24.6 % (37.0-47.0); Hemoglobin 8.8 g/dl (12.0-16.0); Mean Corpuscular Hemoglobin 36.4 pg (25.0-34.0); Mean Corpuscular Hgb Conc 35.8 g/dL (32.0-36.0); Mean Corpuscular Volume 101.7 fL (80.0-100.0); Mean Platelet Volume 8.8 fL (9.4-12.4); Nucleated RBC # (auto) 0.02 K/uL (0.00-0.12); Nucleated RBC % (auto) 0.2 %; Platelet Count 16 K/uL (130-400); Red Blood Count 2.42 M/uL (4.20-5.40); White Blood Count 12.82 K/ul (4.8-10.8)
[2024-02-27 16:53] LABS: ALC (manual) 1.67 K/uL (1.2-3.4); Anisocytosis Present; Blast # (manual) 0.77 K/uL (0-0); Blast Cells % (manual) 6 %; Dohle Bodies 1+; Eosinophils # (manual) 0.51 K/uL (0-0.50); Eosinophils % (manual) 4 %; Hypogranular Neutrophils 1+; Lymphocytes # (manual) 1.67 K/uL (1.2-3.4); Lymphocytes % (manual) 13 %; Macrocytosis Present; Metamyelocytes # (manual) 0.13 K/uL (0-0); Metamyelocytes % (manual) 1 %; Monocytes # (manual) 0.51 K/uL (0.11-0.59); Monocytes % (manual) 4 %; Myelocytes # (manual) 0.13 K/uL (0-0); Myelocytes % (manual) 1 %; Neutrophils % (manual) 71 %; Tear Drop Cells 1+
[2024-02-27] MEDS: LORazepam 0.25 MG in SYRINGE 0.125 ML IV STA (17:01)
[2024-02-28] MEDS: LABETALOL HCL IV 5 MG/ML 20ML IV STA (04:47)
[2024-02-28 05:40] LABS: BUN Creatinine Ratio 8.9 (10-20); Calcium 8.7 mg/dl (8.6-10.3); Creatinine Clr Calc Pharmacy 58.6 ml/min; Est GFR (African American) 84.9 ml/min; Est GFR (Non-African American) 73.2 ml/min; Magnesium 1.7 mg/dl (1.7-2.4); Phosphorus 3.4 mg/dl (2.5-4.9); Potassium 3.2 mmol/L (3.5-5.1)
[2024-02-28 05:47] LABS: Hematocrit (blood only) 25.1 % (37.0-47.0); Hemoglobin 8.7 g/dl (12.0-16.0); Mean Corpuscular Hemoglobin 35.8 pg (25.0-34.0); Mean Corpuscular Hgb Conc 34.7 g/dL (32.0-36.0); Mean Corpuscular Volume 103.3 fL (80.0-100.0); Mean Platelet Volume 8.8 fL (9.4-12.4); Platelet Count 14 K/uL (130-400); Red Blood Count 2.43 M/uL (4.20-5.40); White Blood Count 10.09 K/ul (4.8-10.8)
[2024-02-28] MEDS: POTASSIUM CHLORIDE / WTR 10 MEQ/100 ML PLCT IV SCH (06:00)
[2024-02-28] MEDS: MAGNESIUM SULFATE / D5W 1 GM/100 ML BAG IV ONE (06:00)
[2024-02-28 06:13] LABS: ALC (manual) 2.93 K/uL (1.2-3.4); ANC (manual) 4.94 K/uL (1.4-6.5); Blast # (manual) 0.91 K/uL (0-0); Blast Cells % (manual) 9 %; Dohle Bodies 1+; Eosinophils # (manual) 1.11 K/uL (0-0.50); Eosinophils % (manual) 11 %; Hypogranular Neutrophils 1+; Lymphocytes # (manual) 2.93 K/uL (1.2-3.4); Lymphocytes % (manual) 29 %; Metamyelocytes % (manual) 1 %; Monocytes % (manual) 1 %; Neutrophils # (manual) 4.94 K/uL (1.40-6.50); Neutrophils % (manual) 49 %; Polychromasia 1+
--- NOTE | 2024-02-28 16:51 | Hospitalist Progress Note ---
Date of Service February 28, 2024 Assessment & Plan (1) Diarrhea: Plan: 71-year-old female with past med history significant for type 2 diabetes, hypothyroidism, hyperlipidemia, hypomagnesemia, history of IV iron overload transfusional, diabetic retinopathy, interstitial lung disease, hypertension, history of CAD s/p stent in 2017, symptomatic stenosis of right carotid artery, GERD, urinary incontinence, generalized osteoarthritis, neuropathy due to chemotherapy, high-grade myelodysplastic syndrome s/p stem cell transplant, thrombocytopenia, recurrent major depression, who lives at home with her and ambulates with a cane comes because of ongoing severe sore throat since last 1 week which is getting progressively worse and since yesterday having nausea, vomiting and diarrhea which prompted her to come to the ER. She was seen by [facility] yesterday and was given dose of Rocephin and prescribed amoxicillin but was not filled yet. Having headache 6/10 in severity. Has chronic neck pain. Can move her neck okay. Vision is not great. Some runny nose. No cough. No fevers. No chest pain. No shortness of breath. Has some mild right lower quadrant abdominal pain. Micturating not much. Denies any burning micturition. Denies any blood in the stools. But Hemoccult was positive in the ER. No swelling the legs. No rash. Hemodynamics are okay. Nausea vomiting and diarrhea-improved. Continue IVF. Supportive treatment. (2) Myelodysplastic syndrome: Plan: Severe myelodysplastic syndrome with bicytopenia Diagnosed in 2019 and received 9 cycles of Dacogen and underwent clinic stem cell transplantation in August 2021 Recurrence of myelodysplasia syndrome Currently not on any immunosuppressant medications Currently not pursuing any active treatment per heme-onc notes CBC checked weekly Consider for blood transfusion hemoglobin less than 8 and platelet count less than 10 as per heme-onc Received 2 units of PRBCs since admission and also received platelet transfusion Monitor CBC, transfuse as indicated. (3) Acute confusion: Plan: Delirium, requiring Zyprexa and restraints. CT head with no acute abnormality. Continue delirium precautions. (4) Acute pharyngitis: Plan: Severe sore throat with difficulty swallowing Soft tissue neck showed possible pharyngitis. No evidence of peritonsillar abscess or tonsillitis Continue IV Unasyn-since improving clinically (5) CAD (coronary artery disease): (6) Hypertension: Plan: BP better today, continue metoprolol (7) Hypothyroidism: Plan: Continue Synthroid (8) DM type 2 (diabetes mellitus, type 2): Plan: Hold metformin, continue Lantus, SSI Plan Heme positive stool-diarrhea improved and stool studies were never sent -Continue Protonix twice daily. Seen by GI. Per GI, can do colonoscopy once she is stable CAD s/p stent- On statin, Imdur, metoprolol succinate Urinary incontinence- on Solifenacin, Myrbetriq Major depression- On venlafaxine Hypokalemia-repleted, recheck in a.m. DVT prophylaxis-SCD. Chemoprophylaxis continued with severe thrombocytopenia/anemia Disposition- TBD pending medical stability. Currently confused and in restraints Time spent-approximately 50 minutes Admission and Anticipated Discharge Date Admission Date: February 26, 2024 Subjective Patient was seen and examined at bedside. Remains somnolent and on restraints. Arouses to verbal stimuli and goes back to sleep. No fever, shortness of breath, nausea or vomiting Review of Systems Review of Systems: All systems reviewed & are unremarkable except as noted in Subjective Physical Exam Physical Exam: General: Lying in bed, not in acute distress HEENT: KRISTY, dry oral mucosa Chest: Fair breath sound anteriorly CVS: Regular, normal heart sounds Abdomen: Soft, non tender, not distended, normal bowel sounds Neuro: Somnolent, arouses to verbal stimuli Extremities: trace edema, hand petechia Psych: Confused, on restraints Results & Data Results & Data Vital Signs (Past 12 Hours) Vital Signs Temp Pulse Pulse Resp BP BP BP 02/28/24 15:02 36.3 C L 70 17 101/64 02/28/24 12:05 36.9 C 74 24 127/74 02/28/24 08:00 82 02/28/24 08:00 02/28/24 07:50 36.2 C L 70 20 155/76 H 02/28/24 05:02 168/55 H 02/28/24 04:47 71 179/117 H Pulse Ox O2 Del Method O2 Flow Rate 02/28/24 15:02 96 Nasal Cannula, Oxymask 2 02/28/24 12:05 96 Oxymask 02/28/24 08:00 02/28/24 08:00 Room Air 04/17/24 07:50 97 Room Air 02/28/24 05:02 02/28/24 04:47 Laboratory Results Short CBC 02/28/24 Range/Units 04:26 WBC 10.09 (4.8-10.8) K/ul Hgb 8.7 L (12.0-16.0) g/dl Hct 25.1 L (37.0-47.0) % Plt Count 14 L* (130-400) K/uL BMP 02/28/24 04:26 Sodium 141 Potassium 3.2 L Chloride 109 H Carbon Dioxide 25 BUN 7 Creatinine 0.79 Glucose 138 H Calcium 8.7
[2024-02-28] MEDS: PANTOprazole 40 MG in SYRINGE 0 ML IV SCH (20:02)
[2024-02-28] MEDS: SODIUM CHLORIDE 0.9% 1,000 ML IV ONE (23:08)
--- NOTE | 2024-02-29 00:18 | Communication Note ---
Date of Service: February 29, 2024 Made aware by RN of uncontrolled blood pressure. SBP 1 40-1 70s tonight. High BP noted every night during confinement. Heart rate 60s to 70s. Patient asymptomatic as per RN. AP Uncontrolled hypertension Add lisinopril to home beta-carlos Will relay to AM provider.
[2024-02-29] MEDS: lisinopril 2.5 MG TAB PO SCH (00:52)
[2024-02-29 02:41] LABS: Adenovirus F 40/41 PCR Not Detected (NotDetected); Astrovirus PCR Not Detected (NotDetected); Campylobacter PCR Not Detected (NotDetected); Cryptosporidium PCR Not Detected (NotDetected); Cyclospora cayetanensis PCR Not Detected (NotDetected); Entamoeba histolytica PCR Not Detected (NotDetected); Enteroaggregative E.coli(EAEC) Not Detected (NotDetected); Enteropathogenic E.coli (EPEC) Not Detected (NotDetected); Enterotoxigenic E.coli (ETEC) Not Detected (NotDetected); Giardia lamblia PCR Not Detected (NotDetected); Norovirus GI/GII PCR Not Detected (NotDetected); Plesiomonas shigelloides PCR Not Detected (NotDetected); Rotavirus A PCR Not Detected (NotDetected); Salmonella PCR Not Detected (NotDetected); Sapovirus PCR Not Detected (NotDetected); Shiga-like Toxin E.coli (STEC) Not Detected (NotDetected); Shigella/Enteroinvasive E.coli Not Detected (NotDetected); Vibrio cholerae PCR Not Detected (NotDetected); Vibrio species PCR Not Detected (NotDetected); Yersinia enterocolitica PCR Not Detected (NotDetected)
[2024-02-29] MEDS: lisinopril 2.5 MG TAB PO STA (03:41)
[2024-02-29] MEDS: METOPROLOL SUCC 50MG EXT REL TAB PO STA (05:08)
[2024-02-29 07:03] LABS: Hematocrit (blood only) 25.9 % (37.0-47.0); Hemoglobin 9.3 g/dl (12.0-16.0); Mean Corpuscular Hemoglobin 36.6 pg (25.0-34.0); Mean Corpuscular Hgb Conc 35.9 g/dL (32.0-36.0); Mean Platelet Volume 10.4 fL (9.4-12.4); Platelet Count 10 K/uL (130-400); Red Blood Count 2.54 M/uL (4.20-5.40); White Blood Count 8.15 K/ul (4.8-10.8)
[2024-02-29] MEDS ORDERED: Nursing to Pharmacy Communication SCH (07:15)
[2024-02-29 07:18] LABS: BUN Creatinine Ratio 8.6 (10-20); Calcium 9.1 mg/dl (8.6-10.3); Creatinine Clr Calc Pharmacy 64.4 ml/min; Est GFR (African American) 82.3 ml/min; Magnesium 1.5 mg/dl (1.7-2.4); Phosphorus 3.6 mg/dl (2.5-4.9); Potassium 3.3 mmol/L (3.5-5.1)
[2024-02-29 08:39] LABS: ALC (manual) 2.28 K/uL (1.2-3.4); ANC (manual) 4.24 K/uL (1.4-6.5); Basophils # (manual) 0.08 K/uL (0-0.2); Basophils % (manual) 1 %; Blast # (manual) 0.41 K/uL (0-0); Blast Cells % (manual) 5 %; Eosinophils % (manual) 11 %; Hypogranular Neutrophils 1+; Lymphocytes # (manual) 2.28 K/uL (1.2-3.4); Lymphocytes % (manual) 28 %; Monocytes # (manual) 0.16 K/uL (0.11-0.59); Monocytes % (manual) 2 %; Myelocytes # (manual) 0.08 K/uL (0-0); Myelocytes % (manual) 1 %; Neutrophils # (manual) 4.24 K/uL (1.40-6.50); Neutrophils % (manual) 52 %; Polychromasia 1+; Tear Drop Cells 1+
[2024-02-29] MEDS: INSULIN ASPART PER UNIT CHARGE SC SCH (09:13)
[2024-02-29] MEDS: POTASSIUM CHLORIDE / WTR 10 MEQ/100 ML PLCT IV SCH (09:33)
[2024-02-29] MEDS: MAGNESIUM SULFATE / D5W 1 GM/100 ML BAG IV ONE (09:33)
--- NOTE | 2024-02-29 15:20 | Hospitalist Progress Note ---
Date of Service February 29, 2024 Assessment & Plan (1) Diarrhea: Plan: 71-year-old female with past med history significant for type 2 diabetes, hypothyroidism, hyperlipidemia, hypomagnesemia, history of IV iron overload transfusional, diabetic retinopathy, interstitial lung disease, hypertension, history of CAD s/p stent in 2017, symptomatic stenosis of right carotid artery, GERD, urinary incontinence, generalized osteoarthritis, neuropathy due to chemotherapy, high-grade myelodysplastic syndrome s/p stem cell transplant, thrombocytopenia, recurrent major depression, who lives at home with her and ambulates with a cane comes because of ongoing severe sore throat since last 1 week which is getting progressively worse and since yesterday having nausea, vomiting and diarrhea which prompted her to come to the ER. She was seen by [facility] yesterday and was given dose of Rocephin and prescribed amoxicillin but was not filled yet. Having headache 6/10 in severity. Has chronic neck pain. Can move her neck okay. Vision is not great. Some runny nose. No cough. No fevers. No chest pain. No shortness of breath. Has some mild right lower quadrant abdominal pain. Micturating not much. Denies any burning micturition. Denies any blood in the stools. But Hemoccult was positive in the ER. No swelling the legs. No rash. Hemodynamics are okay. Nausea vomiting and diarrhea-improved. Supportive treatment. (2) Myelodysplastic syndrome: Plan: Severe myelodysplastic syndrome with bicytopenia Diagnosed in 2019 and received 9 cycles of Dacogen and underwent clinic stem cell transplantation in August 2021 Recurrence of myelodysplasia syndrome Currently not on any immunosuppressant medications Currently not pursuing any active treatment per heme-onc notes CBC checked weekly Consider for blood transfusion hemoglobin less than 8 and platelet count less than 10 as per heme-onc Received 2 units of PRBCs since admission and also received platelet transfusion Platelet count 10 today-will transfuse 1U platelets (3) Acute confusion: Plan: Resolved. CT head with no acute abnormality. (4) Acute pharyngitis: Plan: Significantly improved on IV Unasyn. Continue. Advance diet as tolerated. (5) CAD (coronary artery disease): (6) Hypertension: Plan: BP better today, continue metoprolol (7) Hypothyroidism: Plan: Continue Synthroid (8) DM type 2 (diabetes mellitus, type 2): Plan: Hold metformin, continue Lantus, SSI Plan Heme positive stool-diarrhea improved and stool studies were never sent -Continue Protonix twice daily. Seen by GI. Discussed with GI today- recommended outpatient colonoscopy. CAD s/p stent- On statin, Imdur, metoprolol succinate Urinary incontinence- on Solifenacin, Myrbetriq Major depression- On venlafaxine Hypokalemia-repleted, recheck in a.m. DVT prophylaxis-SCD. Chemoprophylaxis continued with severe thrombocytopenia/anemia Disposition-anticipate discharge home tomorrow Time spent-approximately 50 minutes Admission and Anticipated Discharge Date Admission Date: February 26, 2024 Subjective Patient was seen and examined at bedside. She feels much better. She is currently awake alert oriented, conversing well. Tolerated clears without issues. Throat pain significant improved. No fever, chills, chest pain, shortness of breath nausea or vomiting. Discussed about low platelets and need for platelet transfusion to which she agrees. Review of Systems Review of Systems: All systems reviewed & are unremarkable except as noted in Subjective Physical Exam Physical Exam: General: Sitting comfortably in bed, not in distress, on room air HEENT: KRISTY, EOMI Chest: Fair breath sound anteriorly CVS: Regular, normal heart sounds Abdomen: Soft, non tender, not distended, normal bowel sounds Neuro: Awake, alert, oriented, conversing well, nonfocal Extremities: trace edema, hand petechia Psych: Calm, cooperative Results & Data Results & Data Vital Signs (Past 12 Hours) Vital Signs Temp Pulse Pulse Resp BP BP Pulse Ox 02/29/24 11:57 36.8 C 89 16 136/74 98 02/29/24 11:35 36.7 C 68 16 161/79 H 97 02/29/24 11:19 36.7 C 83 16 155/84 H 97 02/29/24 10:58 36.7 C 81 16 116/67 97 02/29/24 08:00 74 02/29/24 07:41 36.8 C 69 18 165/71 H 98 02/29/24 04:00 O2 Del Method O2 Del Method 02/29/24 11:57 02/29/24 11:35 02/29/24 11:19 02/29/24 10:58 02/29/24 08:00 02/29/24 07:41 Room Air 02/29/24 04:00 Room Air
[2024-03-01] MEDS ORDERED: HALOPERIDOL LACTATE 5 MG/ML 1 ML VIAL IM PRN (02:08)
[2024-03-01] MEDS ORDERED: PROMETHAZINE HCL 6.25 MG in SODIUM CHLORIDE 0.9% 50 ML IV PRN (02:09)
[2024-03-01] MEDS: HALOPERIDOL LACTATE 5 MG/ML 1 ML VIAL IM STA (02:20)
[2024-03-01 06:43] LABS: Hematocrit (blood only) 23.7 % (37.0-47.0); Hemoglobin 8.2 g/dl (12.0-16.0); Mean Corpuscular Hemoglobin 35.7 pg (25.0-34.0); Mean Corpuscular Hgb Conc 34.6 g/dL (32.0-36.0); Mean Platelet Volume 10.1 fL (9.4-12.4); Platelet Count 28 K/uL (130-400); RDW Coefficient of Variation 21.8 % (11.5-14.5); White Blood Count 6.25 K/ul (4.8-10.8)
[2024-03-01 06:45] LABS: BUN Creatinine Ratio 9.7 (10-20); Creatinine Clr Calc Pharmacy 55.9 ml/min; Est GFR (African American) 69.7 ml/min; Est GFR (Non-African American) 60.1 ml/min; Magnesium 1.5 mg/dl (1.7-2.4); Potassium 3.3 mmol/L (3.5-5.1)
[2024-03-01 07:33] LABS: ALC (manual) 3.13 K/uL (1.2-3.4); ANC (manual) 1.88 K/uL (1.4-6.5); Blast # (manual) 0.44 K/uL (0-0); Blast Cells % (manual) 7 %; Eosinophils # (manual) 0.81 K/uL (0-0.50); Eosinophils % (manual) 13 %; Hypogranular Neutrophils 1+; Lymphocytes # (manual) 3.13 K/uL (1.2-3.4); Lymphocytes % (manual) 50 %; Neutrophils # (manual) 1.88 K/uL (1.40-6.50); Neutrophils % (manual) 30 %; Polychromasia 1+
[2024-03-01] MEDS: MAGNESIUM SULFATE / D5W 1 GM/100 ML BAG IV ONE (08:08)
[2024-03-01] MEDS: POTASSIUM CHLORIDE / WTR 10 MEQ/100 ML PLCT IV ONE (08:08)
[2024-03-01] MEDS: lisinopril 5 MG TAB PO SCH (08:17)
[2024-03-01] MEDS: METOPROLOL SUCC 50MG EXT REL TAB PO SCH (08:19)
[2024-03-01] MEDS: POTASSIUM CHLORIDE CRTAB 20 MEQ TABCR PO SCH (08:22)
--- NOTE | 2024-03-01 13:29 | Discharge Summary ---
Date of Service March 01, 2024 Admission HPI Per Admitting Provider 71-year-old female with past med history significant for type 2 diabetes, hypothyroidism, hyperlipidemia, hypomagnesemia, history of IV iron overload transfusional, diabetic retinopathy, interstitial lung disease, hypertension, history of CAD s/p stent in 2017, symptomatic stenosis of right carotid artery, GERD, urinary incontinence, generalized osteoarthritis, neuropathy due to chemotherapy, high-grade myelodysplastic syndrome s/p stem cell transplant, thrombocytopenia, recurrent major depression, who lives at home with her and ambulates with a cane comes because of ongoing severe sore throat since last 1 week which is getting progressively worse and since yesterday having nausea, vomiting and diarrhea which prompted her to come to the ER. She was seen by [facility] yesterday and was given dose of Rocephin and prescribed amoxicillin but was not filled yet. Having headache 6/10 in severity. Has chronic neck pain. Can move her neck okay. Vision is not great. Some runny nose. No cough. No fevers. No chest pain. No shortness of breath. Has some mild right lower quadrant abdominal pain. Micturating not much. Denies any burning micturition. Denies any blood in the stools. But Hemoccult was positive in the ER. No swelling the legs. No rash. Hemodynamics are okay. Past medical history. As mentioned above Past surgical history. Colonoscopy. Dilatation curettage. EGD. Ligation of oviducts. Partial hysterectomy. Open cholecystectomy. Repair of her right hip fractures. Lumbar spine fusion surgery. Social history. . No smoking. No alcohol use. No drug use. Family history. Father had diabetes. RI. CHF. Mother had RI. Diabetes. Sister had breast cancer. Sister had multiple myeloma. Admission Exam Per Admitting Provider General- Not in distress Head- atraumatic Eyes- PERRL. ENT- swollen uvula seen Neck- supple, no JVD. Lungs- clear to auscultation no wheezing or crackles. Heart- regular rhythm; no murmur, no gallop. Abdomen- normal bowel sounds, soft, nontender, no distension. Extremities- no pretibial edema, no erythema seen. Neuro- alert, oriented PERRL, no facial palsy; no dysarthria; obeys simple commands Principal Diagnosis Pharyngitis, MDS with anemia/thrombocytopenia, N/V/D Discharge Exam General: Sitting comfortably in bed, not in distress, on room air HEENT: KRISTY, EOMI Chest: Fair breath sound anteriorly CVS: Regular, normal heart sounds Abdomen: Soft, non tender, not distended, normal bowel sounds Neuro: Awake, alert, oriented to self, conversing well, nonfocal Extremities: trace edema, hand petechia Psych: Calm, cooperative Discharge Data Allergies Allergy/AdvReac Type Severity Reaction Status Date / Time No Known Allergies Allergy Verified 02/15/24 13:25 Consultations 02/26/24 08:31 Consult Gastroenterology Routine 03/01/24 12:24 Consult Vascular Surgery Routine Ordered Studies 02/26/24 04:30 CT neck soft tissues [CT soft tissue neck w con] Stat 02/27/24 10:20 CT Brain [CT head/brain wo con] Urgent Laboratory Results WBC 6.25 K/ul (4.8-10.8) 03/01/24 05:36 RBC 2.30 M/uL (4.20-5.40) L 03/01/24 05:36 Hgb 8.2 g/dl (12.0-16.0) L 03/01/24 05:36 POC Hgb 7.5 g/dl (12.0-16.0) L 02/26/24 05:01 Hct 23.7 % (37.0-47.0) L 03/01/24 05:36 POC Hct 22 % (37-47) L 02/26/24 05:01 MCV 103.0 fL (80.0-100.0) H 03/01/24 05:36 MCH 35.7 pg (25.0-34.0) H 03/01/24 05:36 MCHC 34.6 g/dL (32.0-36.0) 03/01/24 05:36 RDW Std Deviation 80.0 fL (36.4-46.3) H 03/01/24 05:36 RDW Coeff of Evin 21.8 % (11.5-14.5) H 03/01/24 05:36 Plt Count 28 K/uL (130-400) L* D 03/01/24 05:36 MPV 10.1 fL (9.4-12.4) 03/01/24 05:36 Immature Gran % (Auto) % 02/27/24 04:22 Neut % (Auto) % 02/27/24 04:22 Lymph % (Auto) % 02/27/24 04:22 Kay % (Auto) % 02/27/24 04:22 Eos % (Auto) % 02/27/24 04:22 Baso % (Auto) % 02/27/24 04:22 Neut # (Auto) K/uL (1.40-6.50) 02/27/24 04:22 Lymph # (Auto) K/uL (1.20-3.40) 02/27/24 04:22 Kay # (Auto) K/uL (0.11-0.59) 02/27/24 04:22 Eos # (Auto) K/uL (0.00-0.50) 02/27/24 04:22 Baso # (Auto) K/uL (0.00-0.20) 02/27/24 04:22 Immature Gran # (Auto) K/uL (0.01-0.20) 02/27/24 04:22 Absolute Nucleated RBC 0.02 K/uL (0.00-0.12) 02/27/24 15:26 Nucleated RBC % (auto) 0.2 % 02/27/24 15:26 Neutrophils % (Manual) 30 % 03/01/24 05:36 Lymphocytes % (Manual) 50 % 03/01/24 05:36 Monocytes % (Manual) 2 % 02/29/24 06:03 Eosinophils % (Manual) 13 % 03/01/24 05:36 Basophils % (Manual) 1 % 02/29/24 06:03 Metamyelocytes % (Man) 1 % 02/28/24 04:26 Myelocytes % (Man) 1 % 02/29/24 06:03 Blast Cells % (Manual) 7 % 03/01/24 05:36 Neutrophils # (Manual) 1.88 K/uL (1.40-6.50) 03/01/24 05:36 Total Absolute Neuts 1.88 K/uL (1.4-6.5) 03/01/24 05:36 Lymphocytes # (Manual) 3.13 K/uL (1.2-3.4) 03/01/24 05:36 Total Abs Lymphocytes 3.13 K/uL (1.2-3.4) 03/01/24 05:36 Monocytes # (Manual) 0.16 K/uL (0.11-0.59) 02/29/24 06:03 Eosinophils # (Manual) 0.81 K/uL (0-0.50) H 03/01/24 05:36 Basophils # (Manual) 0.08 K/uL (0-0.2) 02/29/24 06:03 Metamyelocytes # (Man) 0.10 K/uL (0-0) H 02/28/24 04:26 Myelocytes # (Manual) 0.08 K/uL (0-0) H 02/29/24 06:03 Blast Cells # (Man) 0.44 K/uL (0-0) H 03/01/24 05:36 Hyposegmented Neuts 1+ 03/01/24 05:36 Hypogranular Neuts 1+ 03/01/24 05:36 Dohle Bodies 1+ 02/28/24 04:26 Polychromasia 1+ 03/01/24 05:36 Anisocytosis Present 02/27/24 15:26 Macrocytosis Present 02/27/24 15:26 Tear Drop Cells 1+ 02/29/24 06:03 Peripher Smr Path Cons 02/26/24 04:40 POC Sodium 139 mmol/L (135-144) 02/26/24 05:01 Sodium 142 mmol/L (136-145) 03/01/24 05:36 POC Potassium 3.6 mmol/L (3.3-5.0) 02/26/24 05:01 Potassium 3.3 mmol/L (3.5-5.1) L 03/01/24 05:36 POC Chloride 105 mmol/L (101-112) 02/26/24 05:01 Chloride 107 mmol/L (98-107) 03/01/24 05:36 Carbon Dioxide 27 mmol/L (21-32) 03/01/24 05:36 POC Total CO2 23 mmol/L (24-31) L 02/26/24 05:01 Anion Gap 8 (3-11) 03/01/24 05:36 POC Anion Gap 15.0 mmol/L (16-25) L 02/26/24 05:01 POC BUN 20 mg/dl (7-18) H 02/26/24 05:01 BUN 9 mg/dl (6-23) 03/01/24 05:36 Creatinine 0.93 mg/dl (0.6-1.2) 03/01/24 05:36 POC Creatinine 1.0 mg/dl (0.6-1.3) 02/26/24 05:01 Est Cr Clr Drug Dosing 55.9 ml/min 03/01/24 05:36 Est GFR ( Amer) 69.7 ml/min 03/01/24 05:36 Est GFR (Non-Af Amer) 60.1 ml/min 03/01/24 05:36 BUN/Creatinine Ratio 9.7 (10-20) L 03/01/24 05:36 Glucose 133 mg/dl (70-99(Fasting)) H 03/01/24 05:36 POC Glucose 157 mg/dl (70-99) H 03/01/24 12:08 POC Glucose (other) 257 mg/dl (70-99) H 02/26/24 05:01 Estimat Average Glucose 163 mg/dl 02/27/24 04:22 Hemoglobin A1c 7.3 % (4.5-5.6) H 02/27/24 04:22 Lactate 1.7 mmol/L (0.4-2.0) 02/26/24 04:40 Calcium 9.0 mg/dl (8.6-10.3) 03/01/24 05:36 POC Ioniz Calcium Dalila 1.10 mmol/l (1.12-1.32) L 02/26/24 05:01 Phosphorus 3.6 mg/dl (2.5-4.9) 02/29/24 06:03 Magnesium 1.5 mg/dl (1.7-2.4) L 03/01/24 05:36 Total Bilirubin 0.5 mg/dl (0.2-1.0) 02/26/24 04:40 Direct Bilirubin 0.1 mg/dl (0-0.2) 02/26/24 04:40 AST 12 U/L (13-39) L 02/26/24 04:40 ALT 17 U/L (7-52) 02/26/24 04:40 Alkaline Phosphatase 73 U/L (34-104) 02/26/24 04:40 Ammonia 15.0 umol/L (18-72) L 02/27/24 15:26 Troponin I High Sens 13.8 pg/ml (0-14) 02/26/24 04:40 Total Protein 7.0 gm/dl (6.0-8.3) 02/26/24 04:40 Albumin 3.8 gm/dl (3.4-5.0) 02/26/24 04:40 Procalcitonin 0.51 ng/ml (0-0.5) H 02/26/24 04:40 Urine Color Yellow 02/26/24 Unknown Urine Appearance Clear (Clear) 02/26/24 Unknown Urine pH 5.5 (4.5-7.5) 02/26/24 Unknown Ur Specific [place] 1.033 (1.000-1.030) H 02/26/24 Unknown Urine Protein Trace (Negative) H 02/26/24 Unknown Urine Glucose (UA) Trace (Negative) H 02/26/24 Unknown Urine Ketones Negative (Negative) 02/26/24 Unknown Urine Blood Negative (Negative) 02/26/24 Unknown Urine Nitrite Negative (Negative) 02/26/24 Unknown Urine Bilirubin Negative (Negative) 02/26/24 Unknown Urine Urobilinogen Negative (Negative) 02/26/24 Unknown Ur Leukocyte Esterase Negative (Negative) 02/26/24 Unknown Urine WBC (Auto) 0-5 /hpf (0-5) 02/26/24 Unknown Urine RBC (Auto) 0-2 /hpf (0-2) 02/26/24 Unknown U Hyaline Cast (Auto) 0-2 /lpf (0-2) 02/26/24 Unknown U Epithel Cells (Auto) 0-2 /hpf (0-2) 02/26/24 Unknown Urine Bacteria (Auto) None Seen (None Seen) 02/26/24 Unknown Nasal Screen MRSA (PCR) Negative (Negative) 02/26/24 Unknown Stl C. cayetanensis PCR Not Detected (NotDetected) 02/29/24 01:08 Stool Rotavirus A PCR Not Detected (NotDetected) 02/29/24 01:08 Stl Adenov F 40/41 PCR Not Detected (NotDetected) 02/29/24 01:08 Stool Astrovirus (PCR) Not Detected (NotDetected) 02/29/24 01:08 Stool Campylobacter PCR Not Detected (NotDetected) 02/29/24 01:08 Stl C. diff Tox B Gene Negative Cdiff Gene (Neg) 02/29/24 01:08 Stool Cryptosporidium PCR Not Detected (NotDetected) 02/29/24 01:08 Stl E.coli Shiga Tox PCR Not Detected (NotDetected) 02/29/24 01:08 Stl Enterotoxigenic E PCR Not Detected (NotDetected) 02/29/24 01:08 Stool EPEC (PCR) Not Detected (NotDetected) 02/29/24 01:08 Stool EAEC (PCR) Not Detected (NotDetected) 02/29/24 01:08 Stl E. histolytica PCR Not Detected (NotDetected) 02/29/24 01:08 Stool Giardia Lamblia PCR Not Detected (NotDetected) 02/29/24 01:08 Stool Salmonella PCR Not Detected (NotDetected) 02/29/24 01:08 Stool Sapovirus (PCR) Not Detected (NotDetected) 02/29/24 01:08 Stl P. shigelloides PCR Not Detected (NotDetected) 02/29/24 01:08 Stl Shigella/EIEC PCR Not Detected (NotDetected) 02/29/24 01:08 St Y.enterocolitica PCR Not Detected (NotDetected) 02/29/24 01:08 Stool Vibrio (PCR) Not Detected (NotDetected) 02/29/24 01:08 Stl Vibrio cholerae PCR Not Detected (NotDetected) 02/29/24 01:08 Stl Norovirus GI/GII PCR Not Detected (NotDetected) 02/29/24 01:08 Adenovirus (PCR) Not Detected (NotDetected) 02/26/24 04:30 B. pertussis DNA (PCR) Not Detected (NotDetected) 02/26/24 04:30 B.parapertussis DNA PCR Not Detected (NotDetected) 02/26/24 04:30 C. pneumoniae DNA (PCR) Not Detected (NotDetected) 02/26/24 04:30 Coronavirus OC43 (PCR) Not Detected (NotDetected) 02/26/24 04:30 Coronavirus HKU1 (PCR) Not Detected (NotDetected) 02/26/24 04:30 Coronavirus 229E (PCR) Not Detected (NotDetected) 02/26/24 04:30 SARS-CoV-2 (PCR) Not Detected (NotDetected) 02/26/24 04:30 Coronavirus NL63 (PCR) Not Detected (NotDetected) 02/26/24 04:30 Human Metapneumovir PCR Not Detected (NotDetected) 02/26/24 04:30 Influenza Type A (PCR) Not Detected (NotDetected) 02/26/24 04:30 Influenza Type B (PCR) Not Detected (NotDetected) 02/26/24 04:30 M. pneumoniae (PCR) Not Detected (NotDetected) 02/26/24 04:30 Parainfluenza 1 (PCR) Not Detected (NotDetected) 02/26/24 04:30 Parainfluenza 2 (PCR) Not Detected (NotDetected) 02/26/24 04:30 Parainfluenza 3 (PCR) Not Detected (NotDetected) 02/26/24 04:30 Parainfluenza 4 (PCR) Not Detected (NotDetected) 02/26/24 04:30 RSV (PCR) Not Detected (NotDetected) 02/26/24 04:30 Entero/Rhino (PCR) Not Detected (NotDetected) 02/26/24 04:30 Group A Strep (PCR) NOT DETECTED (NotDetected) 02/26/24 04:30 Blood Type A Positive 02/26/24 06:03 Antibody Screen NEGATIVE 02/26/24 06:03 Crossmatch See Detail 02/26/24 06:03 Impressions Chest X-Ray 02/26/24 04:25 XR chest 1V portable HISTORY: Sepsis COMPARISON: 04/10/2023. FINDINGS: The cardiac silhouette is borderline enlarged. No focal lung consolidations to suggest a pneumonia. No evidence for pulmonary edema. A right jugular Port-A-Cath terminates in the SVC. No acute fractures. IMPRESSION: No acute process. ACT 112: Negative or not required by law. Electronically signed by: Bogdan Lyon M.D. 02/26/2024 7:08 AM Soft Tissue Neck CT 02/26/24 04:30 Exam(s): CT NECK With Contrast IV Amt: 89 ml optiray 320 EXAM: CT Neck With Intravenous Contrast CLINICAL HISTORY: Reason for exam: dysphagia, fever, ? infx. TECHNIQUE: Axial computed tomography images of the neck with intravenous contrast. Automated exposure control was utilized for the study. A dose lowering technique was utilized adhering to the principles of ALARA. CONTRAST: Patient received 89 ml optiray 320 of IV contrast COMPARISON: No relevant prior studies available. FINDINGS: Pharynx: There is mucosal hyperenhancement identified in the pharyngeal wall. No significant tonsillar enlargement. No peritonsillar abscess. Larynx: Unremarkable. Normal epiglottis. Trachea: Unremarkable. Retropharyngeal space: Unremarkable. Submandibular/parotid glands: Unremarkable. Glands are normal in size. Thyroid: Unremarkable. No enlarged or calcified nodules. Bones/joints: No acute fracture. Soft tissues: Unremarkable. Vasculature: There is at least 90% stenosis seen at the origin of the right internal carotid artery due to the presence of extensive calcified atherosclerotic plaque. Moderate atherosclerotic calcification seen in the left carotid bulb. Lymph nodes: Unremarkable. No lymphadenopathy. Lung apices: Unremarkable as visualized. IMPRESSION: Mucosal hyperenhancement in the pharyngeal wall which can be associated with pharyngitis. No evidence of peritonsillar abscess or tonsillitis. Hemodynamically significant stenosis at the origin of the right internal carotid artery with more than 90% luminal obstruction Electronically signed by: Jackson Schafer MD 02/26/24 06:[address] 02/27/24 10:20 CT SCAN OF THE BRAIN WITHOUT IV CONTRAST CLINICAL HISTORY: Change in mental status COMPARISON STUDY: CT of the brain dated 04/10/2023. TECHNIQUE: Unenhanced axial CT scan of the brain is performed from the vertex to the skull base. A dose lowering technique was utilized adhering to the principles of ALARA. The patient was scanned twice due to motion artifact. CT DOSE: 1796.57 mGy.cm FINDINGS: Brain parenchyma: There is age-related involutional change noting mild subcortical and periventricular microangiopathic disease. There is no hemorrhage, mass effect, or evidence of acute territorial ischemia by CT criteria. There is unchanged appearance of a 1.1 cm calcified extra-axial nodule along the right temporal convexity suggestive of a meningioma. Rodriguez-white matter differentiation is preserved. No extra-axial fluid collection is seen. Ventricles, sulci, cisterns: Prominent secondary to involutional change. Intracranial vasculature: There is atherosclerotic calcification of the cavernous carotid artery. Calvarium: Unremarkable. Sinuses and mastoids: There is mild mucosal thickening in the right frontal sinus. The remaining paranasal sinuses are clear. There is trace left mastoid effusion. The right mastoid air cells are well pneumatized. Orbits: The bony orbits are grossly intact. IMPRESSION: There is no hemorrhage, mass effect, or evidence of acute territorial ischemia by CT criteria. ACT 112: Negative or not required by law. Electronically signed by: Maurice Handy M.D. 02/27/2024 12:22 PM Hospital Course (1) Diarrhea: 71-year-old female with past med history significant for type 2 diabetes, hypothyroidism, hyperlipidemia, hypomagnesemia, history of IV iron overload transfusional, diabetic retinopathy, interstitial lung disease, hypertension, history of CAD s/p stent in 2017, symptomatic stenosis of right carotid artery, GERD, urinary incontinence, generalized osteoarthritis, neuropathy due to chemotherapy, high-grade myelodysplastic syndrome s/p stem cell transplant, thrombocytopenia, recurrent major depression, who lives at home with her and ambulates with a cane comes because of ongoing severe sore throat since last 1 week which is getting progressively worse and since yesterday having nausea, vomiting and diarrhea which prompted her to come to the ER. She was seen by faye oxford yesterday and was given dose of Rocephin and prescribed amoxicillin but was not filled yet. Found to have pharyngitis and improved significantly with iv unasyn. Denies any more pain. Seen by CONTINUOUS IMPROVEMENT COORDINATOR. Tolerating diet without issues. Hospital course complicated by delirium for which she was briefly on restraints but she has been off since yesterday and doing well. I spoke to her daughter over the phone and provided an updated. She states she usually gets hospital delirium and gets better in couple days once she gets home. I also communicated with her oncologist Dr Aguero and they will follow up with weekly CBC. I spoke with GI and they recommended OP colonoscopy which she is due. She was also noted to have incidental R ICA stenosis but she does not have any symptoms from it and her severe transfusion dependent MDS with thrombocytopenia will preclude any antiplatelet or any intervention- discussed with vascular who recommended OP follow up. I also updated her daughter over the phone regarding OP vascualr follow up. She was seen by physical therapy and cleared for discharge home. Her electrolytes were repleted prior to discharge. Discharging home on oral augmentin for 4 more days and low dose lisinopril for her hypertension. She is stable for discharge home. Nausea vomiting and diarrhea-improved with supportive treatment. Seen by GI and I spoke to them yesterday- recommended OP follow up for colonoscopy. (2) Myelodysplastic syndrome: Severe myelodysplastic syndrome with bicytopenia Diagnosed in 2019 and received 9 cycles of Dacogen and underwent clinic stem cell transplantation in August 2021 Recurrence of myelodysplasia syndrome Currently not on any immunosuppressant medications Currently not pursuing any active treatment per heme-onc notes CBC checked weekly Consider for blood transfusion hemoglobin less than 8 and platelet count less than 10 as per heme-onc Received 2 units of PRBCs since admission and also received platelet transfusion Received 1 more unit of platelet yesterday for Plt of 10 and now up to 28 today OP follow up with hemonc with weekly CBC. I updated her oncologist Dr Aguero today. (3) Acute confusion: Hospital acquired delirium. Continue delirium precautions. CT head with no acute abnormality. (4) Acute pharyngitis: Significantly improved on IV Unasyn. Augmentin at discharge. Tolerating diet without issues. Seen by CONTINUOUS IMPROVEMENT COORDINATOR. (5) CAD (coronary artery disease): (6) Hypertension: Continue toprol. Added lisinopril for better control. (7) Hypothyroidism: Continue Synthroid (8) DM type 2 (diabetes mellitus, type 2): Continue home meds at discharge. Plan Heme positive stool-diarrhea improved and stool studies were never sent -Continue Protonix twice daily. Seen by GI. Discussed with GI today- recommended outpatient colonoscopy. CAD s/p stent- On statin, Imdur, metoprolol succinate Urinary incontinence- on Solifenacin, Myrbetriq Major depression- On venlafaxine Hypokalemia-repleted, recheck in a.m. DVT prophylaxis-SCD. Chemoprophylaxis continued with severe thrombocytopenia/anemia Disposition-anticipate discharge home tomorrow Time spent-approximately 50 minutes Total Time Total Time Spent Total Time Spent (In Minutes): 35 Discharge Plan Discharge Items Patient Disposition: Home - Self-Care Reason For Visit: PHARNGITIS, N/V AND DIARRHEA AND PANCYTOPENIA Discharge Diagnosis: Pharyngitis, MDS with anemia/thrombocytopenia, N/V/D Condition on Discharge: Fair Activity: Resume your previous activity Non-emergency contact: Primary Care Provider, Adult School Counselor and Oncologist Call non-emergency contact if: you have any medication questions, your symptoms worsen, your pain is concerning for you and you have a fever Follow-up/Referrals: Dhruv Moss MD [Primary Care Provider] - (Date & Time 03/04/2024 12:20 PM Provider Dhruv Moss MD Department Family [facility] ) Diet: Heart Healthy and Low Sodium (2gm) Addtl Attending Provider Instructions: Continue the antibiotic augmentin twice daily for your sore throat We have added lisinopril for your blood pressure. Follow up with family doctor for further management Follow up with your cancer doctor with repeat blood work and blood transfusion as indicated Your CT neck shows tight right internal carotid artery with more than 90% luminal obstruction. Follow up with vascular surgery for this in the office Follow up with GI for outpatient colonoscopy. Pending Studies at Discharge: No Stand-Alone Forms: [facility], Sm[facility] Cessation Medications and DC Order Prescriptions: New lisinopril 10 mg tablet 10 mg PO DAILY Qty: 30 0RF amoxicillin-pot clavulanate 875-125 mg tablet 1 tab PO Q12H 4 Days Qty: 8 0RF Continued magnesium 100 mg Capsule 100 mg PO DAILY atorvastatin 40 mg tablet 40 mg PO DAILY metoprolol succinate 50 mg tablet extended release 24 hr 50 mg PO DAILY isosorbide mononitrate 30 mg tablet extended release 24 hr 30 mg PO DAILY venlafaxine 150 mg capsule,extended release 24hr 150 mg PO DAILY acyclovir 800 mg tablet 800 mg PO BID levothyroxine 88 mcg tablet 88 mcg PO DAILY Premarin 0.625 mg/gram cream 1 mg vaginal WK metformin 1,000 mg tablet 1,000 mg PO BID Novolin R Regular U100 Insulin 100 unit/mL solution 1 sliding scale dose subcut AC Rx Instructions: 8 units with breakfast, 4 units with lunch and 6 units with dinner and sliding scale of one unit every 20 over 140 max daily dose 50units omeprazole 20 mg capsule,delayed release(DR/EC) 20 mg PO DAILY solifenacin 5 mg tablet 5 mg PO DAILY Levemir U-100 Insulin 100 unit/mL solution 20 unit SUBCUT DAILY Myrbetriq 50 mg tablet extended release 24 hr 50 mg PO DAILY Discharge Orders: Discharge Order (Routine); Ordered 03/01/24 Ordered By: Maikel Parkinson/Other Patient Handouts: Managing Type 2 Diabetes Admission Data Admit Date/Time: 02/26/24 07:25 Attending Provider: Maikel Chaves Admit Provider: Julio Hancock Primary Care Provider: Dhruv Moss Other Providers: Bernice Crocker; Julio Hancock; Shiva Valladares
== END 2024-03-01 17:46 | disposition home or self-care (01) | DRG 153 ==
LOC: ED 04:23 → SUATTDRO 07:25 → 1E 07:25 → 2S 02-28 20:34

== ENCOUNTER 2024-10-09 10:28 | Inpatient (IN) ==
[2024-10-09] MEDS: SODIUM CHLORIDE 0.9% 1,000 ML IV SCH (11:10)
--- NOTE | 2024-10-09 11:14 | Emergency Department Note ---
Impression & Plan Confusion, Generalized weakness, Hallucinations, Hypomagnesemia, Intraventricular hemorrhage ED Provider Note ED Provider Note NAME: KELIN TANG AGE:73 SEX: Female : 1950 ARRIVES VIA: Private vehicle INFORMANT: Patient, family ED PROVIDER(s): Cherise Hidalgo DO CHIEF COMPLAINT: Confusion, weakness, decreased appetite, hallucinations HPI: This is a 73-year-old female who presents emerged part with family at bedside due to concern for decline in her overall condition over the course of the last week. Only bedside sites patient has developed confusion, hallucinations, has been more generally weak and had a decreased appetite with subsequent decreased urine and stool output. Daughter thought perhaps it was a urinary tract infection but they had an outpatient urine culture which was negative. She states they also went over her medications with her outpatient providers as there was some concern for side effects of her most recent medication regimen. 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 Daughter states her hemoglobin is typically between 7 and 8 as when she gets below 8 she begins to be symptomatic and does have cardiac history. She states her platelet counts have been around 3 or 4. No recent fevers, chills, URI symptoms. Daughter states her white blood cell count has been trending around 20 recently. She follows with Dr. Aguero of oncology. She is also recently complained of pain at the rectum/tailbone area. No known trauma or injury. PAST MEDICAL HISTORY:See Below PAST SURGICAL HISTORY:See Below FAMILY HISTORY:See Below SOCIAL HISTORY:See Below HOME MEDICATIONS:See Below ALLERGIES:See Below VITALS:See Below PHYSICAL EXAMINATION: GENERAL: alert, well appearing, well nourished, no distress, non-toxic EYE EXAM: Subconjunctival hemorrhage noted worse on the right compared to left, PERRL and EOM's grossly intact, mild right resolving periorbital ecchymosis, no edema -family states patient recently underwent eye injections OROPHARYNX: no exudate, no erythema, lips, buccal mucosa, and tongue normal and mucous membranes are moist NECK: supple, no nuchal rigidity, no adenopathy, non-tender LUNGS: Clear to auscultation. Normal chest wall mechanics, no w/r/r HEART: no murmurs, S1 normal and S2 normal ABDOMEN: abdomen soft, non-tender, normo-active bowel sounds, no masses, no rebound or guarding. BACK: Back is symmetrical on inspection and there is no deformity, no midline tenderness, no CVA tenderness. SKIN: no rashes, petechiae, orbruising UPPER EXTREMITIES: upper extremities are grossly normal. FROM, nml pulses b/l. LOWER EXTREMITIES: No pitting edema. FROM, nml pulses b/l. NEURO EXAM: Normal sensorium, cranial nerves II-XII grossly intact, normal speech, no facial droop,nogross weakness of arms, no gross weakness of legs. Gross sensation intact. No ataxia. Vital Signs: reviewed and remarkable Differential Diagnosis: dehydration, stroke, anemia, hypoglycemia, hyponatremia, hypernatremia, urinary tract infection, pneumonia, bronchitis, sepsis, gastroenteritis, additional abdominal pathology, metabolic abnormalities, as well as others were considered MEDICAL DECISION MAKING: This is a 73 yo female with a hx of MDS on weekly transfusions who presents to the ER with 1 week of increased weakness, fatigue, headaches, hallucinations and decreased appetitie/oral intake. She was afebrile and VS stable. Labs drawn and sent, IV established, EKG and CXR performed and interpreted at bedside, and patient placed on telemetry. Type and screen also sent. She was started on IVF due to likely dehydration and sent for CT head/abd/pelvis. She was noted to have hypomagnesemia, likely from decreased intake and was given IV mag repletion. CT head revealed hemorrhage. I discussed these findings with patient and family at bedside. We discussed options. They requested I reach out to her oncologist. I was able to speak with her oncologist. Additional discussion regarding oncology discussion at bedside and discussion of expectations and prognosis as well as Code Status. At this time patient does not want surgery or aggressive interventions and family is in agreement. Case discussed with the hospitalist team. Platelets were ordered due to significant thrombocytopenia, however none available until 1930 at the earliest. Patient and family made aware of this. Blood consent was signed at bedside in anticipation of this. Consultation(s): 1317: I did reach out to Dr. Aguero of oncology per patient request via [place] Text. 1356: Discussed with Dr. Aguero via phone. 1434: Discussed with Ananya Mccullough hospitalist team, for additional evaluation and management. ER Treatment Provided: See below 1315: Updated patient and family at bedside on results. We discussed options. 1348: Discussed with daughter again at bedside. Daughter states her living will did previously state that she was DNR/DNI. Daughter states currently this is the most lucid consistently she has been over the course of the week. She would like more time to discuss with her mom options of treatment and disposition. 1411: Patient and daughter confirm DNR/DNI. They do not want transferred and do not want aggressive intervention regarding the abnormal CT findings. 1427: Blood consent form signed at bedside and witnessed by the daughter. Daughter also inquiring about a possible palliative care consult while she is admitted. Diagnostics Interpreted By Me: -ECG: nsr at 98, nml axis, nml intervals, no acute ST/T wave changes -Cardiac Monitoring: An order was placed for continuous cardiac monitoring. The monitor shows a rate of 88 with normal sinus rhythm. -Laboratory studies: As stated above and show below. -Imaging studies: CT head: +ICH Triage Nursing Note Reviewed Prior/Outside Records Reviewed Critical Care: Critical care of 68 min performed to assess and manage high likelihood of life-threatening ICH and thrombocytopenia, involving labs and imaging performed with assessment to evaluate XX diagnosis] with frequent reassessment. This time includes bedside time, treatment discussions with patient/family/consultants, documentation time and excludes procedure time. Past Med/Surg History Problem List (Updated 10/09/24 @ 16:01 by Alexa Olguin PA-C) GERD (gastroesophageal reflux disease) Intraventricular hemorrhage (Acute) Hypomagnesemia (Acute) Hallucinations (Acute) Generalized weakness (Acute) Confusion (Acute) Acute confusion Acute pharyngitis Heme positive stool Diarrhea (Acute) Blood in stool (Acute) Hypomagnesemia (Acute) Thrombocytopenia (Acute) Postoperative anemia due to acute blood loss Intertrochanteric fracture of right hip Closed fracture of right hip (Acute) Hypomagnesemia (Acute) Generalized weakness (Acute) Myelodysplastic syndrome (Acute) Leukocytosis (Acute) Thrombocytopenia (Acute) Hypomagnesemia (Acute) Acute hyperglycemia (Acute) Acute pyelonephritis (Acute) Anemia (Acute) Sepsis (Acute) E coli bacteremia Acute pyelonephritis Pancytopenia (Acute) DVT prophylaxis Leukopenia Anemia CAD (coronary artery disease) 2017-EDIL to LAD Hypertension Hypothyroidism DM type 2 (diabetes mellitus, type 2) Medical History Fracture of right hip requiring operative repair Osteoarthritis Myelodysplastic syndrome Depression Dyslipidemia Surgical History History of spinal fusion History of cholecystectomy History of partial hysterectomy H/O tubal ligation H/O dilation and curettage Family History Father Heart disease Mother Heart disease Sister Breast cancer Sister Multiple myeloma Brother Prostate cancer Social History Smoking Status: Never smoker Second Hand Exposure: No; Do You Dip or Chew Tobacco: No; Hx Alcohol Use: No Hx Substance Use: No Preferred Language: [place] Communication Ability: Effective Hybrid Tester Required: No Beliefs That Will Affect Care: None Current Living Situation: Spouse Feels Safe at Home: No Is there a partner from a previous relationship who is making you feel unsafe now?: No Assistive Devices: Bedside Commode, Cane, Raised Toilet Seat and Walker Allergies Allergies Allergy/AdvReac Type Severity Reaction Status Date / Time No Known Allergies Allergy Verified 10/09/24 13:06 Home Meds Home Medications Medication Instructions Recorded Confirmed acyclovir 800 mg tablet 800 mg PO BID 02/26/24 10/09/24 atorvastatin 40 mg tablet 40 mg PO DAILY 02/26/24 10/09/24 isosorbide mononitrate 30 mg 30 mg PO DAILY 02/26/24 10/09/24 tablet,extended release 24 hr levothyroxine 88 mcg tablet 88 mcg PO DAILY 02/26/24 10/09/24 metformin 1,000 mg tablet 1,000 mg PO BID 02/26/24 10/09/24 metoprolol succinate 50 mg 50 mg PO DAILY 02/26/24 10/09/24 tablet,extended release 24 hr omeprazole 20 mg capsule,delayed 20 mg PO BID 02/26/24 10/09/24 release venlafaxine 150 mg 150 mg PO DAILY 02/26/24 10/09/24 capsule,extended release 24 hr nitroglycerin 0.4 mg sublingual 0.4 mg sublingual DIRECTED PRN 05/18/24 10/09/24 tablet (Nitrostat) .chest pain acetaminophen 500 mg tablet 500 mg PO Q6H PRN Pain 10/09/24 10/09/24 insulin aspart U-100 100 unit/mL 1 sliding scale dose subcut TID 10/09/24 10/09/24 (3 mL) subcutaneous pen (Novolog FlexPen U-100 Insulin aspart) insulin glargine 100 unit/mL (3 16 unit subcut QAM 10/09/24 10/09/24 mL) subcutaneous pen (Lantus Solostar U-100 Insulin) lactobacillus combination no.4 3 3,000 mmu cells PO DAILY 10/09/24 10/09/24 billion cell capsule (Probiotic) ondansetron 4 mg disintegrating 4 mg PO Q6H PRN Nausea And Vomiting 10/09/24 10/09/24 tablet prochlorperazine maleate 10 mg 10 mg PO Q6H PRN Nausea And 10/09/24 10/09/24 tablet (Compazine) Vomiting tramadol 50 mg tablet 50 mg PO Q6H PRN Pain 10/09/24 10/09/24 Results & Data (ED) Vital Signs Vital Signs - 24 hr 10/09/24 10:39 10/09/24 11:01 10/09/24 11:21 Temperature 36.2 C L Temperature Source Temporal Artery Scan Pulse Rate 115 H 101 H Pulse Rate [Apical] Pulse Rhythm [Apical] Pulse Strength [Apical] Respiratory Rate 18 Respiratory Effort / Characteristics Non-Labored Respiratory Depth Normal Normal Respiratory Pattern Regular Blood Pressure 104/67 Blood Pressure [Left Arm] Blood Pressure Mean 79 Blood Pressure Mean [Left Arm] Blood Pressure Position [Left Arm] Pulse Oximetry 97 Oxygen Delivery Method Room Air Sepsis Recent Fever Within 48 Hours No Sepsis New/Unexplained Change in Mental Status N/A Sepsis Action Taken by Nursing No Action Required 10/09/24 11:21 10/09/24 11:21 10/09/24 11:30 Temperature Temperature Source Pulse Rate Pulse Rate [Apical] 99 H 100 H Pulse Rhythm [Apical] Regular Regular Pulse Strength [Apical] Normal Normal Respiratory Rate 18 18 Respiratory Effort / Characteristics Non-Labored Spontaneous Non-Labored Spontaneous Respiratory Depth Normal Normal Respiratory Pattern Regular Regular Blood Pressure Blood Pressure [Left Arm] 142/72 H 148/81 H Blood Pressure Mean Blood Pressure Mean [Left Arm] 95 103 Blood Pressure Position [Left Arm] Lying Semi-fowlers Pulse Oximetry 96 96 95 Oxygen Delivery Method Room Air Room Air Room Air Sepsis Recent Fever Within 48 Hours Sepsis New/Unexplained Change in Mental Status Sepsis Action Taken by Nursing 10/09/24 12:25 10/09/24 13:12 10/09/24 14:25 Temperature Temperature Source Pulse Rate Pulse Rate [Apical] 92 H 100 H Pulse Rhythm [Apical] Regular Regular Pulse Strength [Apical] Normal Normal Respiratory Rate 18 18 16 Respiratory Effort / Characteristics Non-Labored Spontaneous Non-Labored Spontaneous Non-Labored Spontaneous Respiratory Depth Normal Normal Normal Respiratory Pattern Regular Regular Regular Blood Pressure Blood Pressure [Left Arm] 139/70 148/74 H 132/83 Blood Pressure Mean Blood Pressure Mean [Left Arm] 93 98 99 Blood Pressure Position [Left Arm] Lying Lying Semi-fowlers Pulse Oximetry 95 96 Oxygen Delivery Method Room Air Room Air Sepsis Recent Fever Within 48 Hours Sepsis New/Unexplained Change in Mental Status Sepsis Action Taken by Nursing Laboratory Data 10/10/24 12:53 10/10/24 04:15 Lab Results 10/09/24 10/09/24 10/09/24 Range/Units 11:15 11:26 14:01 WBC 13.72 H Cancelled (4.8-10.8) K/ul RBC 5.13 Cancelled (4.20-5.40) M/uL Hgb 14.6 Cancelled (12.0-16.0) g/dl Hct 42.9 Cancelled (37.0-47.0) % MCV 83.6 Cancelled (80.0-100.0) fL MCH 28.5 Cancelled (25.0-34.0) pg MCHC 34.0 Cancelled (32.0-36.0) g/dL RDW Std Deviation 43.8 Cancelled (36.4-46.3) fL RDW Coeff of Evin 15.9 H Cancelled (11.5-14.5) % Plt Count 1 L* Cancelled (130-400) K/uL MPV Cancelled Absolute Nucleated RBC Cancelled Nucleated RBC % (auto) Cancelled Neutrophils % (Manual) 24 % Lymphocytes % (Manual) 33 % Monocytes % (Manual) 1 % Eosinophils % (Manual) 3 % Blast Cells % (Manual) 39 % Neutrophils # (Manual) 3.29 (1.40-6.50) K/uL Total Absolute Neuts 3.29 (1.4-6.5) K/uL Lymphocytes # (Manual) 4.53 H (1.2-3.4) K/uL Total Abs Lymphocytes 4.53 H (1.2-3.4) K/uL Monocytes # (Manual) 0.14 (0.11-0.59) K/uL Eosinophils # (Manual) 0.41 (0-0.50) K/uL Blast Cells # (Man) 5.35 H (0-0) K/uL Hypogranular Neuts 2+ Toxic Vacuolation 1+ Platelet Estimate Cancelled Sodium 136 (136-145) mmol/L Potassium 3.7 (3.5-5.1) mmol/L Chloride 100 (98-107) mmol/L Carbon Dioxide 25 (21-32) mmol/L Anion Gap 11 (3-11) BUN 23 (6-23) mg/dl Creatinine 0.95 (0.6-1.2) mg/dl Est Cr Clr Drug Dosing 49.8 ml/min eGFR 62.48 BUN/Creatinine Ratio 24.2 H (10-20) Glucose 270 H (70-99(Fasting)) mg/dl Calcium 9.1 (8.6-10.3) mg/dl Magnesium 1.2 L (1.7-2.4) mg/dl Total Bilirubin 0.8 (0.2-1.0) mg/dl AST 7 L (13-39) U/L ALT 6 L (7-52) U/L Alkaline Phosphatase 70 (34-104) U/L Troponin I High Sens 8.7 (0-14) pg/ml Total Protein 7.9 (6.0-8.3) gm/dl Albumin 3.8 (3.4-5.0) gm/dl Globulin 4.1 H (2.5-4.0) gm/dl Albumin/Globulin Ratio 0.9 (0.9-2) Lipase 9 L (11-82) U/L TSH 7.458 H (0.300-4.500) uIu/ml Free T4 1.10 (0.61-1.60) ng/dl Urine Color Urine Appearance (Clear) Urine pH (4.5-7.5) Ur Specific [place] (1.000-1.030) Urine Protein (Negative) Urine Glucose (UA) (Negative) Urine Ketones (Negative) Urine Blood (Negative) Urine Nitrite (Negative) Urine Bilirubin (Negative) Urine Urobilinogen (Negative) Ur Leukocyte Esterase (Negative) Urine WBC (Auto) (0-5) /hpf Urine RBC (Auto) (0-2) /hpf U Hyaline Cast (Auto) (0-2) /lpf U Epithel Cells (Auto) (0-2) /hpf Urine Bacteria (Auto) (None Seen) Blood Type A Positive Antibody Screen NEGATIVE Crossmatch See Detail 10/09/24 10/09/24 Range/Units 14:22 14:57 WBC 27.19 H D (4.8-10.8) K/ul RBC 3.00 L (4.20-5.40) M/uL Hgb 8.7 L D (12.0-16.0) g/dl Hct 25.5 L (37.0-47.0) % MCV 85.0 (80.0-100.0) fL MCH 29.0 (25.0-34.0) pg MCHC 34.1 (32.0-36.0) g/dL RDW Std Deviation 44.3 (36.4-46.3) fL RDW Coeff of Evin 15.4 H (11.5-14.5) % Plt Count 1 L* (130-400) K/uL MPV Absolute Nucleated RBC Nucleated RBC % (auto) Neutrophils % (Manual) % Lymphocytes % (Manual) % Monocytes % (Manual) % Eosinophils % (Manual) % Blast Cells % (Manual) % Neutrophils # (Manual) (1.40-6.50) K/uL Total Absolute Neuts (1.4-6.5) K/uL Lymphocytes # (Manual) (1.2-3.4) K/uL Total Abs Lymphocytes (1.2-3.4) K/uL Monocytes # (Manual) (0.11-0.59) K/uL Eosinophils # (Manual) (0-0.50) K/uL Blast Cells # (Man) (0-0) K/uL Hypogranular Neuts Toxic Vacuolation Platelet Estimate Sodium (136-145) mmol/L Potassium (3.5-5.1) mmol/L Chloride (98-107) mmol/L Carbon Dioxide (21-32) mmol/L Anion Gap (3-11) BUN (6-23) mg/dl Creatinine (0.6-1.2) mg/dl Est Cr Clr Drug Dosing ml/min eGFR BUN/Creatinine Ratio (10-20) Glucose (70-99(Fasting)) mg/dl Calcium (8.6-10.3) mg/dl Magnesium (1.7-2.4) mg/dl Total Bilirubin (0.2-1.0) mg/dl AST (13-39) U/L ALT (7-52) U/L Alkaline Phosphatase (34-104) U/L Troponin I High Sens (0-14) pg/ml Total Protein (6.0-8.3) gm/dl Albumin (3.4-5.0) gm/dl Globulin (2.5-4.0) gm/dl Albumin/Globulin Ratio (0.9-2) Lipase (11-82) U/L TSH (0.300-4.500) uIu/ml Free T4 (0.61-1.60) ng/dl Urine Color Yellow Urine Appearance Clear (Clear) Urine pH 6.0 (4.5-7.5) Ur Specific [place] 1.043 H (1.000-1.030) Urine Protein 1+ H (Negative) Urine Glucose (UA) Negative (Negative) Urine Ketones 1+ H (Negative) Urine Blood 2+ H (Negative) Urine Nitrite Negative (Negative) Urine Bilirubin Negative (Negative) Urine Urobilinogen Negative (Negative) Ur Leukocyte Esterase Negative (Negative) Urine WBC (Auto) 0-5 (0-5) /hpf Urine RBC (Auto) >20 H (0-2) /hpf U Hyaline Cast (Auto) 3-5 H (0-2) /lpf U Epithel Cells (Auto) 0-2 (0-2) /hpf Urine Bacteria (Auto) None Seen (None Seen) Blood Type Antibody Screen Crossmatch Administered Medications Discontinued Medications Acyclovir (Acyclovir 400 Mg Tab) 800 mg PO BID MARIA GUADALUPE Stop: 11/08/24 20:59 Last Admin: 10/10/24 08:26 Dose: 800 mg Documented By: Admin: 10/09/24 21:51 Dose: 800 mg Documented By: PRATEEK Atorvastatin Calcium (Atorvastatin 40 Mg Tab) 40 mg PO DAILY MARIA GUADALUPE Stop: 11/09/24 08:59 Last Admin: 10/10/24 08:26 Dose: 40 mg Documented By: JOELLEN Carvedilol (Carvedilol 12.5 Mg Tab) 12.5 mg PO NOW ONE Stop: 10/09/24 15:27 Last Admin: 10/09/24 17:18 Dose: 12.5 mg Documented By: JOELLEN Carvedilol (Carvedilol 12.5 Mg Tab) 12.5 mg PO BIDM MARIA GUADALUPE Stop: 11/09/24 08:59 Last Admin: 10/10/24 12:01 Dose: 12.5 mg Documented By: JOELLEN Sodium Chloride (Nss) 1,000 mls @ 250 mls/hr IV .Q4H MARIA GUADALUPE Stop: 10/10/24 10:59 Last Admin: 10/09/24 16:51 Dose: Not Given Documented By: Infusion: 10/09/24 16:47 Dose: Infused Documented By: Admin: 10/09/24 11:10 Dose: 250 mls/hr Documented By: Magnesium Sulfate/Dextrose (Magnesium Sulfate / D5w) 1 gm in 100 mls @ 100 mls/hr IV Q1H MARIA GUADALUPE Stop: 10/09/24 14:04 Last Infusion: 10/09/24 15:44 Dose: Infused Documented By: Admin: 10/09/24 13:59 Dose: 100 mls/hr Documented By: Infusion: 10/09/24 13:17 Dose: Infused Documented By: Admin: 10/09/24 12:17 Dose: 100 mls/hr Documented By: Pantoprazole Sodium (Protonix) 40 mg in 10 mls @ 5 mls/min IV NOW ONE Stop: 10/09/24 15:39 Last Admin: 10/09/24 17:19 Dose: 5 mls/min Documented By: JOELLEN Magnesium Sulfate/Dextrose (Magnesium Sulfate / D5w) 1 gm in 100 mls @ 50 mls/hr IV Q2H MARIA GUADALUPE Stop: 10/09/24 20:38 Last Infusion: 10/10/24 05:05 Dose: Infused Documented By: Admin: 10/10/24 02:58 Dose: 50 mls/hr Documented By: Infusion: 10/09/24 21:34 Dose: Infused Documented By: Admin: 10/09/24 18:00 Dose: 50 mls/hr Documented By: JOELLEN Pantoprazole Sodium (Protonix) 40 mg in 10 mls @ 5 mls/min IV BID MARIA GUADALUPE Stop: 11/08/24 20:59 Last Admin: 10/10/24 08:24 Dose: 5 mls/min Documented By: Admin: 10/10/24 00:30 Dose: 5 mls/min Documented By: PRATEEK Insulin Aspart (Insulin Aspart Per Unit Charge) 0 units SC ACHS MARIA GUADALUPE Stop: 11/08/24 16:38 Last Admin: 10/10/24 13:13 Dose: 2 units Documented By: JOELLEN Co-signed By: HAROON Admin: 10/10/24 08:24 Dose: 2 units Documented By: JOELLEN Co-signed By: HAROON Admin: 10/09/24 21:50 Dose: 3 units Documented By: PRATEEK Co-signed By: JUS Admin: 10/09/24 17:59 Dose: 4 units Documented By: JOELLEN Co-signed By: SIRISHA Insulin Glargine (Lantus Per Unit Charge) 8 units SQ BID MARIA GUADALUPE Stop: 11/08/24 20:59 Last Admin: 10/10/24 08:24 Dose: 8 units Documented By: JOELLEN Co-signed By: HAROON Admin: 10/09/24 21:50 Dose: 8 units Documented By: PRATEEK Co-signed By: JUS Ioversol (Optiray 320 100ml) 94 ml IV ONCE ONE Stop: 10/09/24 12:15 Last Admin: 10/09/24 12:08 Dose: 94 ml Documented By: DAVID Isosorbide Mononitrate (Isosorbide [place] Extended Rel 30 Mg Tabcr) 30 mg PO NOW ONE Stop: 10/09/24 15:37 Last Admin: 10/09/24 17:14 Dose: 30 mg Documented By: JOELLEN Isosorbide Mononitrate (Isosorbide [place] Extended Rel 30 Mg Tabcr) 30 mg PO DAILY MARIA GUADALUPE Stop: 11/09/24 08:59 Last Admin: 10/10/24 08:30 Dose: 30 mg Documented By: JOELLEN Labetalol HCl (Labetalol Hcl Iv 5 Mg/Ml 20ml) 5 mg IV NOW STA Stop: 10/09/24 14:24 Last Admin: 10/09/24 15:28 Dose: 5 mg Documented By: SHAY Levothyroxine Sodium (Levothyroxine Sodium 88 Mcg Tablet) 88 mcg PO DAILYBB [facility] Stop: 11/09/24 06:29 Last Admin: 10/10/24 06:00 Dose: 88 mcg Documented By: PRATEEK Venlafaxine HCl (Venlafaxine Hcl Xr 150 Mg Capxr) 150 mg PO DAILY MARIA GUADALUPE Stop: 11/09/24 08:59 Last Admin: 10/10/24 08:26 Dose: 150 mg Documented By: [facility] [place] Data Radiologist's Impression: Abdomen/Pelvis CT 10/09/24 10:59 EXAM: CT Abdomen and Pelvis With Intravenous Contrast INDICATION: Weakness, rectal pain and shortness of breath. TECHNIQUE: Axial computed tomography images of the abdomen and pelvis with intravenous contrast. Sagittal and coronal reformatted images were created and reviewed. This CT exam was performed using one or more of the following dose reduction techniques: automated exposure control, adjustment of the mA and/or kV according to patient size, and/or use of iterative reconstruction technique. COMPARISON: 04/04/2023 FINDINGS: Limitations: None. Lung bases: There is a new 4 mm vague nodule in the right middle lobe series 4 image 7. There is a new 7 mm oval noncalcified nodule in the right lower lobe image 6.r there is an approximate 1 cm focus of mild irregular peribronchial opacity in the right middle lobe along the major fissure image 5. Pleural space: No visualized pleural effusion or pneumothorax. Heart: No abnormality noted. Mediastinum: No abnormality noted. ABDOMEN: Liver: No abnormality noted. Gallbladder and bile ducts: Cholecystectomy. No ductal dilation or stone noted. Pancreas: Homogeneous enhancement. No mass, inflammation or ductal dilation. Spleen: Stable splenomegaly-14 cm long. Adrenals: No significant abnormality noted. Kidneys and ureters: Mild bilateral renal cortical scarring is stable. There is slight increase size 4 mm stone left kidney. T. 2 mm stone right kidney. Simple left renal cyst/s. No simple cyst follow-up necessary. Right kidney appears normal. No renal stone, hydronephrosis or perinephric fluid. Increased small left and new 2 mm right renal stones. Stomach and bowel: No distension or mucosal thickening. No inflammation noted. PELVIS: Appendix: Well seen and appears normal. Bladder: Moderately distended urinary bladder which is mildly inflamed. No stone or gas. Reproductive: Hysterectomy. ABDOMEN and PELVIS: Intraperitoneal space: No free air. No significant fluid collection. Bones/joints: Multilevel posterior lumbar fusion hardware well-seated and intact. Generalized moderate to severe degenerative changes in the spine. No acute osseous abnormality. Well-seated right femoral hardware. Soft tissues: No significant abnormality noted. Vasculature: Atherosclerotic calcification of the aorta and branches. No aneurysm. Lymph nodes: No pathologically enlarged lymph nodes. IMPRESSION: 1. Moderately distended bladder with mild cystitis. No bladder stone. 2. Stable splenomegaly. 3. New scattered parenchymal foci in the right middle and lower lobes. While these most likely reflect inflammatory foci, CT chest within 3 months recommended. ACT 112: Negative or not required by law. Electronically signed by Whitley De La Rosa 10-09-2024 12:41 PM Chest X-Ray 10/09/24 11:00 XR chest 1V portable CLINICAL HISTORY: Shortness of breath. COMPARISON STUDY: Chest radiograph February 26, 2024. FINDINGS: Right internal jugular [id number] is unchanged in position. Lung volumes are normal. Lungs are clear. There is no pneumothorax or pleural effusion. Cardiac size is stable. Mediastinal contours are normal. There is no evidence for pulmonary edema. IMPRESSION: No acute cardiopulmonary findings. No change in appearance of the chest. ACT 112: Negative or not required by law. Electronically signed by: Aureliano Najera M.D. 10/09/2024 11:[address] 10/09/24 11:00 CT OF THE HEAD WITHOUT CONTRAST CLINICAL HISTORY: Confusion. COMPARISON STUDY: Head CT February 27, 2024. TECHNIQUE: Helical axial images of the head were obtained without IV contrast. Automated exposure control was utilized for the study. A dose lowering technique was utilized adhering to the principles of ALARA. FINDINGS: A 9 mm oval-shaped hyperdense focus within the body of the right lateral ventricle on image 15 of 28 is new since prior CT. This favors a small focus of intraventricular hemorrhage. Ventricular system is otherwise stable. Basal cisterns are patent. There are no extra axial collections. White matter hypodensities are suggestive of small vessel disease. There are no findings to suggest acute dural sinus thrombosis or acute territorial infarct. There are no calvarial fractures. IMPRESSION: 1. 9 mm oval-shaped hyperdense focus within the body of the right lateral ventricle which is new since prior CT. This favors a small focus of subacute to acute intraventricular hemorrhage. An intracranial mass is considered less likely however imaging follow-up to ensure resolution is recommended. 2. Otherwise, unchanged appearance of the brain. ACT 112: Negative or not required by law. Electronically signed by: Aureliano Najera M.D. 10/09/2024 12:29 PM Discharge Plan Visit Data Chief Complaint: Shortness of Breath/Dyspnea Stated Complaint: WEAKNESS, SOB, CONFUSION, WORSE OVER PAST WEEK ED Provider: Cherise Hidalgo Discharge Problem: Confusion, Generalized weakness, Hallucinations, Hypomagnesemia, Intraventricular hemorrhage Patient Disposition: Admitted As Inpatient Discharge Instructions Interventions: ED Discharge Assessment Last Done: 10/09/24 16:07
--- NOTE | 2024-10-09 11:26 | XRay Report ---
XR chest 1V portable CLINICAL HISTORY: Shortness of breath. COMPARISON STUDY: Chest radiograph February 26, 2024. FINDINGS: Right internal jugular [id number] is unchanged in position. Lung volumes are normal. Romie gs are clear. There is no pneumothorax or pleural effusion. Cardiac size is stable. Mediastinal conto urs are normal. There is no evidence for pulmonary edema. IMPRESSION: No acute cardiopulmonary findings. No change in appearance of the chest. ACT 112: Negative or not required by law. Electronically signed by: Aureliano Najera M.D. 10/09/2024 11:24 AM
[2024-10-09 11:37] LABS: Hematocrit (blood only) 42.9 % (37.0-47.0); Hemoglobin 14.6 g/dl (12.0-16.0); Mean Corpuscular Hemoglobin 28.5 pg (25.0-34.0); Mean Corpuscular Volume 83.6 fL (80.0-100.0); Platelet Count 1 K/uL (130-400); RDW Coefficient of Variation 15.9 % (11.5-14.5); RDW Standard Deviation 43.8 fL (36.4-46.3); Red Blood Count 5.13 M/uL (4.20-5.40)
[2024-10-09 11:49] LABS: Albumin Globulin Ratio 0.9 (0.9-2); Albumin Level 3.8 gm/dl (3.4-5.0); BUN Creatinine Ratio 24.2 (10-20); Bilirubin,Total 0.8 mg/dl (0.2-1.0); Calcium 9.1 mg/dl (8.6-10.3); Creatinine Clr Calc Pharmacy 49.8 ml/min; Globulin 4.1 gm/dl (2.5-4.0); Magnesium 1.2 mg/dl (1.7-2.4); Potassium 3.7 mmol/L (3.5-5.1); Total Protein 7.9 gm/dl (6.0-8.3)
[2024-10-09 11:53] LABS: White Blood Count 13.72 K/ul (4.8-10.8)
[2024-10-09 11:56] LABS: Troponin I High Sensitivity 8.7 pg/ml (0-14)
[2024-10-09 12:05] LABS: Thyroid Stimulating Hormone 7.458 uIu/ml (0.300-4.500)
[2024-10-09] MEDS: OPTIRAY 320 100ml IV ONE (12:08)
[2024-10-09] MEDS: MAGNESIUM SULFATE / D5W 1 GM/100 ML BAG IV SCH ×2 (12:17→18:00)
[2024-10-09 12:18] LABS: ALC (manual) 4.53 K/uL (1.2-3.4); ANC (manual) 3.29 K/uL (1.4-6.5); Blast # (manual) 5.35 K/uL (0-0); Blast Cells % (manual) 39 %; Eosinophils # (manual) 0.41 K/uL (0-0.50); Eosinophils % (manual) 3 %; Hypogranular Neutrophils 2+; Lymphocytes # (manual) 4.53 K/uL (1.2-3.4); Lymphocytes % (manual) 33 %; Monocytes # (manual) 0.14 K/uL (0.11-0.59); Monocytes % (manual) 1 %; Neutrophils # (manual) 3.29 K/uL (1.40-6.50); Neutrophils % (manual) 24 %; Toxic Vacuolation 1+
--- NOTE | 2024-10-09 12:30 | CT Scan Report ---
CT OF THE HEAD WITHOUT CONTRAST CLINICAL HISTORY: Confusion. COMPARISON STUDY: Head CT February 27, 2024. TECHNIQUE: Helical axial images of the head were obtained without IV contrast. Automated exposure con trol was utilized for the study. A dose lowering technique was utilized adhering to the principles o f ALARA. FINDINGS: A 9 mm oval-shaped hyperdense focus within the body of the right lateral ventricle on image 15 of 28 is new since prior CT. This favors a small focus of intraventricular hemorrhage. Ventricula r system is otherwise stable. Basal cisterns are patent. There are no extra axial collections. White matter hypodensities are suggestive of small vessel disease. There are no findings to suggest acute d ural sinus thrombosis or acute territorial infarct. There are no calvarial fractures. IMPRESSION: 1. 9 mm oval-shaped hyperdense focus within the body of the right lateral ventricle which is new sinc e prior CT. This favors a small focus of subacute to acute intraventricular hemorrhage. An intracrani al mass is considered less likely however imaging follow-up to ensure resolution is recommended. 2. Otherwise, unchanged appearance of the brain. ACT 112: Negative or not required by law. Electronically signed by: Aureliano Najera M.D. 10/09/2024 12:29 PM
[2024-10-09] MEDS ORDERED: SODIUM CHLORIDE 0.9% 50 ML IV PRN ×3 (12:37→16:39)
[2024-10-09] MEDS ORDERED: SODIUM CHLORIDE 0.9% 100 ML IV PRN ×3 (12:37→16:39)
--- NOTE | 2024-10-09 12:41 | CT Scan Report ---
EXAM: CT Abdomen and Pelvis With Intravenous Contrast INDICATION: Weakness, rectal pain and shortness of breath. TECHNIQUE: Axial computed tomography images of the abdomen and pelvis with intravenous contrast. Sagittal and coronal reformatted images were created and reviewed. This CT exam was performed using one or more of the following dose reduction techniques: automated exposure control, adjustment of the mA and/or kV according to patient size, and/or use of iterative reconstruction technique. COMPARISON: 04/04/2023 FINDINGS: Limitations: None. Lung bases: There is a new 4 mm vague nodule in the right middle lobe series 4 image 7. There is a new 7 mm oval noncalcified nodule in the right lower lobe image 6.r there is an approximate 1 cm focus of mild irregular peribronchial opacity in the right middle lobe along the major fissure image 5. Pleural space: No visualized pleural effusion or pneumothorax. Heart: No abnormality noted. Mediastinum: No abnormality noted. ABDOMEN: Liver: No abnormality noted. Gallbladder and bile ducts: Cholecystectomy. No ductal dilation or stone noted. Pancreas: Homogeneous enhancement. No mass, inflammation or ductal dilation. Spleen: Stable splenomegaly-14 cm long. Adrenals: No significant abnormality noted. Kidneys and ureters: Mild bilateral renal cortical scarring is stable. There is slight increase size 4 mm stone left kidney. T. 2 mm stone right kidney. Simple left renal cyst/s. No simple cyst follow-up necessary. Right kidney appears normal. No renal stone, hydronephrosis or perinephric fluid. Increased small left and new 2 mm right renal stones. Stomach and bowel: No distension or mucosal thickening. No inflammation noted. PELVIS: Appendix: Well seen and appears normal. Bladder: Moderately distended urinary bladder which is mildly inflamed. No stone or gas. Reproductive: Hysterectomy. ABDOMEN and PELVIS: Intraperitoneal space: No free air. No significant fluid collection. Bones/joints: Multilevel posterior lumbar fusion hardware well-seated and intact. Generalized moderate to severe degenerative changes in the spine. No acute osseous abnormality. Well-seated right femoral hardware. Soft tissues: No significant abnormality noted. Vasculature: Atherosclerotic calcification of the aorta and branches. No aneurysm. Lymph nodes: No pathologically enlarged lymph nodes. IMPRESSION: 1. Moderately distended bladder with mild cystitis. No bladder stone. 2. Stable splenomegaly. 3. New scattered parenchymal foci in the right middle and lower lobes. While these most likely reflect inflammatory foci, CT chest within 3 months recommended. ACT 112: Negative or not required by law. Electronically signed by Whitley De La Rosa 10-09-2024 12:41 PM
[2024-10-09 12:47] LABS: T4 Free Thyroxine 1.1 ng/dl (0.61-1.60)
[2024-10-09 14:44] LABS: Appearance Urine Clear (Clear); Bacteria Urine Automated None Seen (None Seen); Bilirubin Urine Negative (Negative); Blood Urine 2+ (Negative); Color Urine Yellow; Epithelial Cell Urine Auto 0-2 /hpf (0-2); Glucose Urine UA Negative (Negative); Ketones Urine 1+ (Negative); Leukocyte Esterase Urine Negative (Negative); Nitrite Urine Negative (Negative); Protein Urine 1+ (Negative); RBC Urine Automated >20 /hpf (0-2); Specific Gravity Urine 1.043 (1.000-1.030); Urobilinogen Urine Negative (Negative); WBC Urine Automated 0-5 /hpf (0-5)
--- NOTE | 2024-10-09 15:08 | History & Physical Report ---
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 Last transfusions on 10/03/2024.Today patient is mentally more A&O. Today in ER patient afebrile, P: 115, R: 18, BP 104/67, 97% on room air. Repeat vitals P: 100, BP 132/83 In ER given labetalol 5 mg IV, NSS started at 250ml/hr WBC: 27. Hgb: 8.7. PLT: 1 Per outpatient chart review 10/02/2024: WBC: 21, Hgb: 7.3, PLT: 3 CT Head: 1. 9 mm oval-shaped hyperdense focus within the body of the right lateral ventricle which is new since prior CT. This favors a small focus of subacute to acute intraventricular hemorrhage. An intracranial mass is considered less likely however imaging follow-up to ensure resolution is recommended. CXR: no infiltrate noted Per discussion with patient and patient's daughter she is a DNR/DNI. Patient explicitly states that she does not want transferred and would not want any neurological intervention and daughter at bedside confirms this. Her goal is to receive transfusion with goal of going home as soon as possible. She is open to palliative discussion. Reports if it would occur that she deteriorates she would want to go to comfort measures. Plan to transfuse total 2 units platelets. Unfortunately do not have platelets in house currently. Blood bank contacted and anticipate arrival around 8 PM this evening. Discussed this with patient and family who are aware and chose to stay here at [facility] and did not wish to transfer. Plan to repeat CBC after platelet transfusion. Type and cross and hold PRBC and repeat H&H to determine if will require future transfusion Labetalol IV as needed hypertension Will hold home metoprolol succinate and convert to carvedilol 12.5 mg twice daily in attempt at more strict BP control with ICH Resume home isosorbide Repeat CT scan in 24 hours CBC, BMP in am (4) Hypomagnesemia: Plan: Magnesium: 1.2 In ER given 2 g magnesium sulfate IV Replace and monitor (5) Hypertension: Plan: Labetalol IV as needed hypertension Will hold home metoprolol succinate and convert to carvedilol 12.5 mg twice daily in attempt at more strict BP control with ICH Resume home isosorbide (6) CAD (coronary artery disease): Plan: Will hold home metoprolol succinate and convert to carvedilol 12.5 mg twice daily as above Resume home isosorbide Continue atorvastatin (7) DM type 2 (diabetes mellitus, type 2): Plan: Random glucose: 270 A1c: 6.5 Hold home metformin and insulin Basal bolus insulin per protocol (8) Hypothyroidism: Plan: Continue levothyroxine (9) GERD (gastroesophageal reflux disease): Plan: Convert oral PPI to IV for now DVT Prophylaxis SCDs Admit PCU DNR/DNI as per discussion with pt Follows with Dr Moss for routine care Pt was seen and care coordinated with Dr Reyna. See addendum I spent a total of 70 minutes reviewing notes, outpatient records, labs, medication, coordinating, documenting and providing care for this patient excluding time spent in the performance of separately billed services. 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 History obtained from patient, patients daughter and outpatient chart review. Patient is transfusion dependent receiving PRBC and platelet transfusions with last transfusions on 10/03/2024. Follows with oncology, Dr. Aguero. Reports decreased appetite and decreased oral appetite the past week. Reports for past week more confused than usual. Daughter states thought was possible UTI so had [facility] perform UA which was negative. Daughter states today patient is mentally more clear than she has been and seems alert and oriented. Daughter noticed today patient was more SOB with little movement and patient had reported some chest pain when daughter was showering her this morning. Reports intermittent ENCARNACION's this past week. Currently at rest in bed patient denies SOB or CP. States last had medications yesterday, 10/08/24. Was getting Eylea injections, last on 09/30/24 and developed subconjunctival hemorrhage which daughter states look better the past several days. Patient denies any vision changes. Currently patient states has pain to tailbone has discomfort after sitting for a long time and denies other pain. Denies fever/chills, diaphoresis, N/V/D/C, dizziness, syncope, palpitations, cough, sore throat, rhinorrhea, abdominal pain, paresthesias, extremity edema, rashes, hematuria, dysuria, hematochezia. Allergies Allergy/AdvReac Type Severity Reaction Status Date / Time No Known Allergies Allergy Verified 10/09/24 13:06 Home Medications Medication Instructions Recorded Confirmed Type acyclovir 800 mg tablet 800 mg PO BID 02/26/24 10/09/24 History atorvastatin 40 mg tablet 40 mg PO DAILY 02/26/24 10/09/24 History isosorbide mononitrate 30 mg 30 mg PO DAILY 02/26/24 10/09/24 History tablet,extended release 24 hr levothyroxine 88 mcg tablet 88 mcg PO DAILY 02/26/24 10/09/24 History metformin 1,000 mg tablet 1,000 mg PO BID 02/26/24 10/09/24 History metoprolol succinate 50 mg 50 mg PO DAILY 02/26/24 10/09/24 History tablet,extended release 24 hr omeprazole 20 mg capsule,delayed 20 mg PO BID 02/26/24 10/09/24 History release venlafaxine 150 mg 150 mg PO DAILY 02/26/24 10/09/24 History capsule,extended release 24 hr nitroglycerin 0.4 mg sublingual 0.4 mg sublingual DIRECTED PRN 05/18/24 10/09/24 History tablet (Nitrostat) .chest pain acetaminophen 500 mg tablet 500 mg PO Q6H PRN Pain 10/09/24 10/09/24 History insulin aspart U-100 100 unit/mL 1 sliding scale dose subcut TID 10/09/24 10/09/24 History (3 mL) subcutaneous pen (Novolog FlexPen U-100 Insulin aspart) insulin glargine 100 unit/mL (3 16 unit subcut QAM 10/09/24 10/09/24 History mL) subcutaneous pen (Lantus Solostar U-100 Insulin) lactobacillus combination no.4 3 3,000 mmu cells PO DAILY 10/09/24 10/09/24 History billion cell capsule (Probiotic) ondansetron 4 mg disintegrating 4 mg PO Q6H PRN Nausea And Vomiting 10/09/24 10/09/24 History tablet prochlorperazine maleate 10 mg 10 mg PO Q6H PRN Nausea And 10/09/24 10/09/24 History tablet (Compazine) Vomiting tramadol 50 mg tablet 50 mg PO Q6H PRN Pain 10/09/24 10/09/24 History Past Med/Surg History Problem List (Updated 10/09/24 @ 16:01 by Alexa Olguin PA-C) GERD (gastroesophageal reflux disease) Intraventricular hemorrhage (Acute) Hypomagnesemia (Acute) Hallucinations (Acute) Generalized weakness (Acute) Confusion (Acute) Acute confusion Acute pharyngitis Heme positive stool Diarrhea (Acute) Blood in stool (Acute) Hypomagnesemia (Acute) Thrombocytopenia (Acute) Postoperative anemia due to acute blood loss Intertrochanteric fracture of right hip Closed fracture of right hip (Acute) Hypomagnesemia (Acute) Generalized weakness (Acute) Myelodysplastic syndrome (Acute) Leukocytosis (Acute) Thrombocytopenia (Acute) Hypomagnesemia (Acute) Acute hyperglycemia (Acute) Acute pyelonephritis (Acute) Anemia (Acute) Sepsis (Acute) E coli bacteremia Acute pyelonephritis Pancytopenia (Acute) DVT prophylaxis Leukopenia Anemia CAD (coronary artery disease) 2017-EDIL to LAD Hypertension Hypothyroidism DM type 2 (diabetes mellitus, type 2) Medical History Fracture of right hip requiring operative repair Osteoarthritis Myelodysplastic syndrome Depression Dyslipidemia Surgical History History of spinal fusion History of cholecystectomy History of partial hysterectomy H/O tubal ligation H/O dilation and curettage Family History Father Heart disease Mother Heart disease Sister Breast cancer Sister Multiple myeloma Brother Prostate cancer Social History Smoking Status: Never smoker Second Hand Exposure: No; Do You Dip or Chew Tobacco: No; Tobacco Cessation Education Requested by Patient: No Hx Alcohol Use: No Hx Substance Use: No Preferred Language: Tunisian Communication Ability: Effective Practice Lead Required: No Beliefs That Will Affect Care: None Current Living Situation: Spouse Other Information That Helps Us Care for You: No Feels Safe at Home: No Is there a partner from a previous relationship who is making you feel unsafe now?: No Any Concerns about Your Family Situation: No Would You Like to Speak to Someone About Your Situation: No Safety Concerns: Feels Safe At This Time Assistive Devices: Cane, Denture - Upper, Glasses and Walker Review of Systems Review of Systems: All systems reviewed & are unremarkable except as noted in HPI & below Physical Exam Physical Exam: PE per Dr Reyna Results & Data Results & Data Vital Signs (Past 12 Hours) Vital Signs Temp Pulse Pulse Resp BP BP Pulse Ox 10/09/24 14:48 99 H 15 10/09/24 14:45 158/92 H 10/09/24 14:30 175/90 H 10/09/24 14:25 132/83 10/09/24 14:25 100 H 16 132/83 10/09/24 13:12 18 148/74 H 96 10/09/24 12:25 92 H 18 139/70 95 10/09/24 11:30 100 H 18 148/81 H 95 10/09/24 11:21 99 H 18 142/72 H 96 10/09/24 11:21 96 10/09/24 11:01 101 H 10/09/24 10:39 36.2 C L 115 H 18 104/67 97 O2 Del Method 10/09/24 14:48 10/09/24 14:45 10/09/24 14:30 10/09/24 14:25 10/09/24 14:25 10/09/24 13:12 Room Air 10/09/24 12:25 Room Air 10/09/24 11:30 Room Air 10/09/24 11:21 Room Air 10/09/24 11:21 Room Air 10/09/24 11:01 10/09/24 10:39 Room Air Laboratory Results Short CBC 10/09/24 10/09/24 10/09/24 Range/Units 11:15 14:01 14:57 WBC 13.72 H Cancelled 27.19 H D (4.8-10.8) K/ul Hgb 14.6 Cancelled 8.7 L D (12.0-16.0) g/dl Hct 42.9 Cancelled 25.5 L (37.0-47.0) % Plt Count 1 L* Cancelled 1 L* (130-400) K/uL BMP 10/09/24 11:15 Sodium 136 Potassium 3.7 Chloride 100 Carbon Dioxide 25 BUN 23 Creatinine 0.95 Glucose 270 H Calcium 9.1 Liver Function 10/09/24 Range/Units 11:15 Total Bilirubin 0.8 (0.2-1.0) mg/dl AST 7 L (13-39) U/L ALT 6 L (7-52) U/L Alkaline Phosphatase 70 (34-104) U/L Albumin 3.8 (3.4-5.0) gm/dl Urine 10/09/24 Range/Units 14:22 Urine Color Yellow Urine Appearance Clear (Clear) Urine pH 6.0 (4.5-7.5) Ur Specific [place] 1.043 H (1.000-1.030) Urine Protein 1+ H (Negative) Urine Glucose (UA) Negative (Negative) Diagnostic Findings Abdomen/Pelvis CT 10/09/24 10:59 EXAM: CT Abdomen and Pelvis With Intravenous Contrast INDICATION: Weakness, rectal pain and shortness of breath. TECHNIQUE: Axial computed tomography images of the abdomen and pelvis with intravenous contrast. Sagittal and coronal reformatted images were created and reviewed. This CT exam was performed using one or more of the following dose reduction techniques: automated exposure control, adjustment of the mA and/or kV according to patient size, and/or use of iterative reconstruction technique. COMPARISON: 04/04/2023 FINDINGS: Limitations: None. Lung bases: There is a new 4 mm vague nodule in the right middle lobe series 4 image 7. There is a new 7 mm oval noncalcified nodule in the right lower lobe image 6.r there is an approximate 1 cm focus of mild irregular peribronchial opacity in the right middle lobe along the major fissure image 5. Pleural space: No visualized pleural effusion or pneumothorax. Heart: No abnormality noted. Mediastinum: No abnormality noted. ABDOMEN: Liver: No abnormality noted. Gallbladder and bile ducts: Cholecystectomy. No ductal dilation or stone noted. Pancreas: Homogeneous enhancement. No mass, inflammation or ductal dilation. Spleen: Stable splenomegaly-14 cm long. Adrenals: No significant abnormality noted. Kidneys and ureters: Mild bilateral renal cortical scarring is stable. There is slight increase size 4 mm stone left kidney. T. 2 mm stone right kidney. Simple left renal cyst/s. No simple cyst follow-up necessary. Right kidney appears normal. No renal stone, hydronephrosis or perinephric fluid. Increased small left and new 2 mm right renal stones. Stomach and bowel: No distension or mucosal thickening. No inflammation noted. PELVIS: Appendix: Well seen and appears normal. Bladder: Moderately distended urinary bladder which is mildly inflamed. No stone or gas. Reproductive: Hysterectomy. ABDOMEN and PELVIS: Intraperitoneal space: No free air. No significant fluid collection. Bones/joints: Multilevel posterior lumbar fusion hardware well-seated and intact. Generalized moderate to severe degenerative changes in the spine. No acute osseous abnormality. Well-seated right femoral hardware. Soft tissues: No significant abnormality noted. Vasculature: Atherosclerotic calcification of the aorta and branches. No aneurysm. Lymph nodes: No pathologically enlarged lymph nodes. IMPRESSION: 1. Moderately distended bladder with mild cystitis. No bladder stone. 2. Stable splenomegaly. 3. New scattered parenchymal foci in the right middle and lower lobes. While these most likely reflect inflammatory foci, CT chest within 3 months recommended. ACT 112: Negative or not required by law. Electronically signed by Whitley De La Rosa 10-09-2024 12:41 PM Chest X-Ray 10/09/24 11:00 XR chest 1V portable CLINICAL HISTORY: Shortness of breath. COMPARISON STUDY: Chest radiograph February 26, 2024. FINDINGS: Right internal jugular [id number] is unchanged in position. Lung volumes are normal. Lungs are clear. There is no pneumothorax or pleural effusion. Cardiac size is stable. Mediastinal contours are normal. There is no evidence for pulmonary edema. IMPRESSION: No acute cardiopulmonary findings. No change in appearance of the chest. ACT 112: Negative or not required by law. Electronically signed by: Aureliano Najera M.D. 10/09/2024 11:[address] 10/09/24 11:00 CT OF THE HEAD WITHOUT CONTRAST CLINICAL HISTORY: Confusion. COMPARISON STUDY: Head CT February 27, 2024. TECHNIQUE: Helical axial images of the head were obtained without IV contrast. Automated exposure control was utilized for the study. A dose lowering technique was utilized adhering to the principles of ALARA. FINDINGS: A 9 mm oval-shaped hyperdense focus within the body of the right lateral ventricle on image 15 of 28 is new since prior CT. This favors a small focus of intraventricular hemorrhage. Ventricular system is otherwise stable. Basal cisterns are patent. There are no extra axial collections. White matter hypodensities are suggestive of small vessel disease. There are no findings to suggest acute dural sinus thrombosis or acute territorial infarct. There are no calvarial fractures. IMPRESSION: 1. 9 mm oval-shaped hyperdense focus within the body of the right lateral ventricle which is new since prior CT. This favors a small focus of subacute to acute intraventricular hemorrhage. An intracranial mass is considered less likely however imaging follow-up to ensure resolution is recommended. 2. Otherwise, unchanged appearance of the brain. ACT 112: Negative or not required by law. Electronically signed by: Aureliano Najera M.D. 10/09/2024 12:29 PM Supervising Physician Co-Signing Physician Notes Patient patient is a 73-year-old history of relapsed myelodysplastic syndrome with no active treatment; she gets CBC checked and blood transfusion as outpatient by hematology/oncology weekly. Patient was brought to the hospital by her daughter(who works with [employer] at home) due to increasing confusion and generalized weakness over the last 1 week. On presentation to the ED; vital signs are stable. She is saturating well on room air. Lab work in the ED showed platelet count of 1000. Her platelet counts 1 week ago as outpatient where 3000. CT of the head showed 9 mm oval-shaped hyperdense focus within the body of right lateral ventricle; likely small focus of subacute to acute intraventricular hemorrhage. Chest x-ray did not show any acute finding CT abdomen and pelvis showed moderately distended bladder with mild cystitis. New scattered parenchymal foci in right middle and lower lobe. Physical examination; Constitutional: Awake, oriented to time place and person. HEENT; bilateral conjunctival hemorrhage present. Petechiae present in lower lips. Respiratory: Bilateral vesicular breath sound. Cardiovascular: RRR, no murmur, no edema Vessels: no JVD or carotid bruit Chest: normal inspection of chest Abdomen: Soft, nontender. Skin: no rashes, warm and dry normal turgor Neurologic: PERRL, EOMI, accommodation nl, no face palsy, no dysarthria CN's II- XI intact bilaterally and moves all extremities Psychiatric: A+Ox3, euthymic affect Assessment/plan MDS with no active treatment Severe thrombocytopenia Spontaneous intracranial hemorrhage Patient with MDS under no current treatment presents with spontaneous intracranial hemorrhage, severe thrombocytopenia. Discussed with patient and patient's daughter; they do not want to get transferred to tertiary care center. They do not want any aggressive interventions besides blood transfusion. I discussed limitation of the blood bank here in the hospital; no platelets available till 8 PM to transfuse. Also, there is a possibility of limitation of blood products in the future as well; I discussed the possibility of expansion of intracranial hemorrhage which can lead to seizure, coma, severe neurological deficit, brain herniation and cardiac arrest; they verbalized understanding of the risks involved but would not like to get balance assembler. I also discussed risks of a spontaneous bleeding with epistaxis, GI bleed due to severe thrombocytopenia which can lead to Multiorgan failure, . They verbalized understanding of the risks. Discussed with blood bank to arrange for 2 units of pooled platelet to be given later in the evening. If patient decompensates; plan is to initiate comfort care measures. Will repeat CT head in 24 hours to ensure stability of the intracranial hemorrhage. Metoprolol changed to Coreg for better blood pressure control in setting of ICH. Protonix IV twice daily. Labetalol as needed for systolic blood pressure greater than 160. I have reviewed the advanced practitioner's documentation, and I agree with, and take responsibility for the plan of care I spent a total of 40 minutes coordinating, documenting, and providing care for this patient excluding time spent in the performance of separately billed services. All of the aforementioned completed while collaborating with the assigned advanced practitioner for a full treatment plan
[2024-10-09 15:18] LABS: Hematocrit (blood only) 25.5 % (37.0-47.0); Hemoglobin 8.7 g/dl (12.0-16.0); Mean Corpuscular Hgb Conc 34.1 g/dL (32.0-36.0); Platelet Count 1 K/uL (130-400); RDW Coefficient of Variation 15.4 % (11.5-14.5); RDW Standard Deviation 44.3 fL (36.4-46.3); White Blood Count 27.19 K/ul (4.8-10.8)
[2024-10-09] MEDS: LABETALOL HCL IV 5 MG/ML 20ML IV STA (15:28)
[2024-10-09] MEDS ORDERED: POLYETHYLENE (MIRALAX) 17 GM PACK PO PRN (16:39)
[2024-10-09] MEDS ORDERED: DEXTROSE 50% 50 ML SYRINGE IV PRN (16:39)
[2024-10-09] MEDS ORDERED: GLUCAGON FOR INJ 1 MG VIAL SQ PRN (16:39)
[2024-10-09] MEDS ORDERED: CARBOHYDRATES FOR HYPOGLYCEMIA PO PRN (16:39)
[2024-10-09] MEDS ORDERED: ACETAMINOPHEN 325 MG TAB PO PRN (16:39)
[2024-10-09] MEDS ORDERED: ONDANSETRON INJ 2 MG/ML 2 ML VIAL IV PRN (16:39)
[2024-10-09] MEDS ORDERED: LABETALOL HCL IV 5 MG/ML 20ML IV PRN (16:39)
[2024-10-09] MEDS ORDERED: GLUCOSE 10 TAB/TUBE PO PRN (16:39)
[2024-10-09] MEDS ORDERED: traMADol HCL 50 MG TABLET PO PRN (16:39)
[2024-10-09] MEDS ORDERED: GLUCOSE 40% GEL 15 GM TUBE PO PRN (16:39)
--- NOTE | 2024-10-09 16:51 | Electrocardiogram Report ---
Test Reason : Blood Pressure : */* mmHG Vent. Rate : 98 BPM Atrial Rate : 98 BPM P-R Int : 148 ms QRS Dur : 84 ms QT Int : 356 ms P-R-T Axes : 40 -6 52 degrees QTcB Int : 454 ms Normal sinus rhythm Normal ECG When compared with ECG of 26-Feb-2024 04:29, No significant change was found Confirmed by Fernando Villalba ([id number]) on 10/09/2024 4:51:34 PM Referred By: REFERRED SELF Confirmed By: Fernando Villalba
[2024-10-09] MEDS: ISOSORBIDE MONO EXTENDED REL 30 MG TABCR PO ONE (17:14)
[2024-10-09] MEDS ORDERED: INFLUENZA VACC TS2024-25(65y+)/PF (IIV3) 0.5mL Syr IM ONE (17:17)
[2024-10-09] MEDS: carvediloL 12.5 MG TAB PO ONE (17:18)
[2024-10-09] MEDS: PANTOprazole 40 MG/10 ML SYR IV ONE (17:19)
[2024-10-09] MEDS: INSULIN ASPART PER UNIT CHARGE SC SCH (17:59)
[2024-10-09] MEDS: LANTUS PER UNIT CHARGE SQ SCH (21:50)
[2024-10-09] MEDS: ACYCLOVIR 400 MG TAB PO SCH (21:51)
--- OUTSIDE RECORDS SUMMARY | 2024-10-10 00:23 | External Medical Summary | Summary of Care ---
Author Name Unknown Organization [facility] Address [address] [facility] [place] [address] Phone [phone] Care Team Providers Care E Business Consultant Name Role Phone Dhruv Moss MD Primary Care Provide r Reason for Visit * Reason Onset Date Comments Medication Refill 10/07/2024 Encounter Details Date Type Department Care Team (Late st Contact Info) Description 10/07/2024 Telephone [facility], [facility] [address] [place] [address] Marisa Pacheco, RN [address] [place] [id number] Medication Refill Allergies No known active allergiesdocumented as of this encounter (statuses as of 10/07/2024) Medications Diclofenac Sodium 1 % External GelIndications:kne e pain Apply topically to affected area . Apply to bilateral knees Active Prochlorperazine Maleate 10 MG Oral Tablet (Compazine)Indicat ions:H/O allogeneic bone marrow transplant (HCC) Take by mouth 1 Tablet every 6 hours as needed for Nausea. 60 Tablet 3 12/09/19 22 Active KereosTouch Verio Flex System w/Device Kit Use as directed . 02/03/20 22 Active Acetaminophen 500 MG Oral Tablet Take 1 Tablet by mouth every 6 hours as needed. Active Magnesium 100 MG Oral Capsule Take 1 Capsule by mouth in the morning. Active Pen [place] 32G X 4 MM Use as directed. Use to inject insulin up to 4 times daily. 400 Each 3 04/09/2024 7:20 AM EDT 04/05/20 24 Active Atorvastatin Calcium 40 MG Oral Tablet (Lipitor)Indicatio ns:Dyslipidemia, goal LDL below 70 TAKE ONE TABLET BY MOUTH IN THE MORNING 90 Tablet 2 04/22/20 24 Active OneTouch Verio In Vitro Strip (Glucose Blood)Indications: Type 2 diabetes mellitus with hemoglobin A1c goal of less than 8.0% (HCC) Use to test blood sugar three times a day DXe11.9 300 Strip 3 04/22/20 24 Active Acyclovir 800 MG Oral Tablet (Zovirax)Indicatio ns:MDS (myelodysplastic syndrome), high grade (HCC) TAKE ONE TABLET BY MOUTH TWICE DAILY in the morning and before bedtime 60 Tablet 11 05/13/20 24 Active Isosorbide Mononitrate ER 30 MG Oral Tablet Extended Release 24 Hour (Imdur)Indications :Coronary artery disease involving [place] coronary artery of [place] heart without angina pectoris,HTN, goal below 140/90 TAKE ONE TABLET BY MOUTH IN THE MORNING 90 Tablet 1 06/15/20 24 Active Omeprazole 20 MG Oral Capsule Delayed Release (PriLOSEC)Indicati ons:MDS (myelodysplastic syndrome), high grade (HCC) Take 1 Capsule by mouth in the morning and 1 Capsule before bedtime. 180 Capsule 2 07/16/20 24 Active Metoprolol Succinate ER 50 MG Oral Tablet Extended Release 24 Hour (toPROL XL)Indications:HTN , goal below 140/90 TAKE ONE TABLET BY MOUTH IN THE MORNING 90 Tablet 1 07/22/20 24 Active metFORMIN HCl 1000 MG Oral Tablet (Glucophage)Indica tions:Type 2 diabetes mellitus with hemoglobin A1c goal of less than 8.0% (HCC) TAKE 1 TABLET BY MOUTH TWICE DAILY WITH MORNING AND EVENING MEALS 180 Tablet 1 07/22/20 24 Active Levothyroxine Sodium 88 MCG Oral Tablet (Levoxyl)Indicatio ns:Postoperative hypothyroidism TAKE ONE TABLET BY MOUTH FIRST THING IN THE MORNING AT LEAST 30 MINUTES BEFORE BREAKFAST OR OTHER MEDICATIONS 90 Tablet 1 07/22/20 24 Active Nitroglycerin 0.4 MG Sublingual Tablet Sublingual (Nitrostat)Indicat ions:chest pain Place 1 Tablet under the tongue every 5 minutes as needed for Pain, Chest. up to 3 doses in 15 minutes 25 Tablet 2 07/23/20 24 Active OneTouch Delica Lancets 30GIndications:Typ e 2 diabetes mellitus with hemoglobin A1c goal of less than 8.0% ([facility]) Use to test blood sugar three times a day DXe11.9 300 Each 3 07/22/20 24 Active Insulin Glargine Solostar 100 UNIT/ML Subcutaneous Solution Pen-injector (Lantus SoloStar) Inject 16 Units under the skin in the morning. 30 mL 3 07/22/20 24 Active Ondansetron HCl 8 MG Oral TabletIndications: MDS (myelodysplastic syndrome), high grade (HCC) Take 1 Tablet by mouth every 8 hours as needed for Nausea. 60 Tablet 3 07/22/20 24 Active LubriFresh P.M. Ophthalmic Ointment Instill 1 Tube into the right eye once. Apply to inside of eyelid daily at night Active Probiotic Oral Tablet Chewable Take by mouth daily. Active NovoLOG FlexPen 100 UNIT/ML Subcutaneous Solution Pen-injector (insulin aspart) Inject 8 units with breakfast, 4 units with lunch, and 6 units with dinner + sliding scale of 1 units per every 20 over 140 MAX DAILY DOSE 50 units 45 mL 3 09/06/2024 9:45 AM EDT 09/03/20 24 Active Venlafaxine HCl ER 150 MG Oral Capsule Extended Release 24 Hour (Effexor XR)Indications:Rec urrent major depressive disorder, in partial remission ([facility]) TAKE ONE CAPSULE BY MOUTH EVERY DAY do not cut, crush, or chew 90 Capsule 2 09/23/20 24 Active Hospital, Clinic, or Other Facility Administered Medication Ordered Dose Route Frequency Start Date End Date Status NSS 0.9% 1,000 mL bolus infusionIndications:MDS (myelodysplastic syndrome), high grade (HCC),Stem cells transplant status ([facility]),Acquired hypothyroidism 1000 mL IV DAILY PRN 12/08/2021 Active bevaCIZumab (Avastin) inj 1.25 mgIndications: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, unspecified whether long-term insulin use (HCC) 1.25 mg IZ PRN 07/17/2024 07/17/2025 Ac tive Aflibercept (Eylea) intravitreal inj 2 mgIndications: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 Date of Transplant: 09/01/2021 Conditioning Regimen: Fludarabine / Busulfan 2 with post-transplant Cytoxan ABO/Rh: A Positive CMV status: CMV Positive--- GRID: [id number] / DID: [id number] Matched Unrelated 10/24--- DPB1 Match ABO/Rh: A Positive CMV status: Negative Problem Noted Date Diagnosed Date Ambulatory dysfunction 09/23/2024 Assessment & Plan (09/23/2024 3:36 PM EST): Encourage use of assistive device, especially when outside the home Remains high risk for falls, fractures, and bleeding Chronic kidney disease, stage 3a 07/22/2024 Overview: Per CKD protocol Assessment & Plan (09/23/2024 10:42 AM EST): Renal function stable overall Age-related osteoporosis wit hout current pathological fracture 11/03/2023 S/P right hip fracture 06/12/2023 Neutropenia 06/05/2023 Symptomatic stenosis of righ t carotid artery without infarction 05/24/2023 Overview (05/24/2023): 05/24/23=50-69% on right and <50% on left. Repeat 1 year Myelodysplastic syndrome 12/06/2022 ILD (interstitial lung disease) 12/06/2022 Thrombocytopenia 12/06/2022 Assessment & Plan (04/04/2023 4:21 PM EDT): Platelets 26928 on 03/20 Questionable hematuria Urinary incontinence 09/12/2022 History of immunosuppression therapy 04/19/2022 ACP (advance care planning) 03/10/2022 Assessment & Plan (03/10/2022 3:59 PM EDT): ACP nose done by Lyudmila Sterling December 15, 2021. No additional discussions occurred today due to time constrictions. 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 02/28/2022 Assessment & Plan (09/23/2024 10:42 AM EST): "RED FLAG" Diabetic symptoms: Rapid Weight Loss, Confusion, and Vision Changes Goal HgbA1c <8 Diabetic Complications Vascular (examples: PVD, PAD, CAD, CVA) Neurologic (example: Peripheral Neuropathy) Medication Regimen Metformin Basal/Long Acting Insulin Bolus/Short Acting Insulin DM Secondary Prevention Moderate-High Intensity Statin Additional Comments Follows with MTM Blood sugar well controlled Continues on jojo CGM Dehydration 09/24/2021 H/O allogeneic bone marrow transplant 09/21/2021 Hypomagnesemia 07/27/2021 Stem cells transplant status 07/25/2021 Gastro-esophageal reflux disease without esophag itis 06/01/2021 Assessment & Plan (03/10/2022 3:40 PM EDT): Stable with patient currently asymptomatic Patient is taking Prilosec 20 mg twice daily Assessment/plan: Stable GERD. Patient will continue on current dose of Prilosec. MDS (myelodysplastic syndrome), high grade 07/27 Overview (11/03/2023): diagnosed in 2019, received 9 cycles of Dacogen, had a very good response, and underwent clinic stem cell transplantation in August 2021 bone marrow done lately on 2 occasions shows recurrence of underlying myelodysplastic syndrome with the similar chromosomal changes suggest graft failure. Does not have any evidence of [id number] disease Assessment & Plan (09/23/2024 10:42 AM EST): Weekly bloodwork PRBC and platelet transfusions prn, approx once a week Assessment & Plan (07/22/2024 3:52 PM EDT): Continues to follow with hematology CBCd weekly and transfuse to maintain hgb >8 Overall poor progression reviewed at recent oncology appt Reviewed expected symptoms with patient today Assessment & Plan (11/03/2023 10:42 AM EST): Continues to follow with hematology CBCd weekly [...] - [facility] 9.5 (L) 12/03/2020 09:20 AM Assessment & Plan (05/09/2023 4:13 PM EDT): Currently in relapse. Hemoglobin yesterday 8.8. Platelets 69739. - weekly CBC. Transfusion to maintain above hemoglobin of 8 Microalbuminuria due to type 2 diabetes mellitus 10/30/2019 Insulin-requiring or dependent type II diabetes mellitus 07/23/2018 Recurrent major depressive disorder, in partial remission 07/23/2018 Assessment & Plan (05/09/2023 4:19 PM EDT): Stable -continue venlafaxine Assessment & Plan (03/10/2022 3:44 PM EDT): Please refer to last estimate on for for 2021. Patient is currently doing better with the transition back to Effexor. Currently taking half of her original 150 mg. She has had no issues transferring from Lexapro back to the Effexor. At this time she is is feeling that she needs to go back to the 150 does as she still occasionally has issues with depression. No suicidal ideal a should plan Assessment/plan: Recurrent major depression improving with returning back to her Effexor. We will increase her dose to 150 mg daily and reassess her again in 2 weeks. Assessment & Plan (02/14/2022 1:02 PM EDT): I received a call from nurse gearcase assembler in the field reporting that over the past month the patient has been tapered off of Effexor because it was felt like it was not if factive and she had been on it for 25 years or more. Today the patient family requesting to be returned to the Effexor as they are now realizing that it did work, and currently the patient is sleeping all the time, irritable, nasty to her daughter and spouse. The Lexapro that the patient was placed on is not working. Lexapro 10 mg daily started on December 29, 2021 Effexor 150 mg daily prior to December 29, 2021 Effexor 37.5 mg - 2 caps daily x 1 week, then 1 cap daily x 1 week then D/C starting December 29, 2021 I discussed with the family that we could increase the dose of the Lexapro at this time however they prefer to discontinue the Lexapro in restart the Effexor. Plan: Patient will begin to taper the Lexapro by taking 1/2 tablet daily for a week followed by a quarter of a tablet for a week. Patient will begin taking the Effexor 37.5 mg daily for 1 week followed by 75 mg daily. The usual total dose per day is anywhere from 75 mg to 225 mg with this patient at 150 mg prior to the switch. Most likely the patient will need to return to the same does, however I recommend that the patient be evaluated at the end of 2 weeks to determine whether not another increase is appropriate at that time. Coronary artery disease invo lving [place] coronary artery of [place] heart without angina pectoris 06/12/2017 Overview (06/12/2017): S/P EDIL to LAD on 06/12/17 Assessment & Plan (05/09/2023 4:11 PM EDT): No angina - Continue atorvastatin, isosorbide, metoprolol - no ASA due to thrombocytopenia Assessment & Plan (03/10/2022 3:04 PM EDT): Currently patient doing well with no complaints. She continues on her Toprol XL 50 mg daily and Imdur ER 30 mg daily Assessment plan: Stable. Patient will continue his medication as per Cardiology. Patient does have nitroglycerin on hand if necessary. The echo 06/02 The examination is limited quality but adequate for evaluation of the referral indication. The qualitative LV ejection fraction is 55-59% (normal). The LV wall thickness is moderately increased (concentric). Normal IVC size and collapsability with inspiration indicates a normal right atrial pressure of 3 mmHg. Dyslipidemia, goal LDL below 70 11/25/2011 Assessment & Plan (03/10/2022 3:36 PM EDT): Patient having no issues. She continues on Lipitor 40 mg daily Last lab I will was that I can find were from [id number] Assessment/plan: Dyslipidemia with patient currently taking Lipitor 40 mg daily without any issues. Recommend that patient levels drawn at next lab draw Type 2 diabetes mellitus wit h hemoglobin A1c goal of less than 8.0% 12/29/2009 Overview (03/10/2016): ICD-10 update of inactive term Assessment & Plan (07/22/2024 3:53 PM EDT): "RED FLAG" Diabetic symptoms: Rapid Weight Loss, Confusion, and Vision Changes Goal HgbA1c <8 Diabetic Complications Vascular (examples: PVD, PAD, CAD, CVA) Neurologic (example: Peripheral Neuropathy) Medication Regimen Metformin Basal/Long Acting Insulin Bolus/Short Acting Insulin DM Secondary Prevention Moderate-High Intensity Statin Additional Comments Follows with MTM On metformin once daily now due to diarrhea Assessment & Plan (11/03/2023 10:45 AM EST): "RED FLAG" Diabetic symptoms: Rapid Weight Loss, Confusion, and Vision Changes Goal HgbA1c <8 Diabetic Complications Vascular (examples: PVD, PAD, CAD, CVA) Neurologic (example: Peripheral Neuropathy) Medication Regimen Metformin Basal/Long Acting Insulin Bolus/Short Acting Insulin DM Secondary Prevention Moderate-High Intensity Statin Additional Comments Follows with MTM Assessment & Plan (05/09/2023 4:16 PM EDT): Current Status: "Stable" for patient / At [...] due to hypoglycemia. Improved. Acquired hypothyroidism 12/01/2009 Assessment & Plan (05/09/2023 4:13 PM EDT): Continue Synthroid Assessment & Plan (03/10/2022 3:29 PM EDT): Last TSH was 3.64 on December 08 2021. Patient continues with her levothyroxine 50 mcg daily with no issues. Assessment/plan: Hypothyroidism controlled with levothyroxine. Patient will continue her current dose. We will continue to monitor her levels to ensure adequate is supplementation. Generalized osteoarthritis of multiple sites HTN, goal below 140/90 Assessment & Plan (05/09/2023 4:12 PM EDT): BP stable. - continue medication regimen as noted above. Assessment & Plan (03/10/2022 2:50 PM EDT): Currently patient's blood pressure is within goal at 130/70 Lisinopril has been on hold since February 18 2022 Patient continues on Toprol XL 50 mg daily Assessment/plan: Continue to hold lisinopril at this time. Continue with Toprol XL 50 mg daily. Monitor future blood pressures. Is documented as of this encounter (statuses as of 10/07/2024) Resolved Problems Problem Noted Date Diagnosed Date Resolved Date Controlled substance agreement signed 03/04/2024 03/04/2024 Acute cystitis without hematuria 05/09/2023 07/22/2024 Assessment & Plan (05/09/2023 4:23 PM EDT): Given history of urosepsis, will opt to treat with Keflex 500 mg p.o. Three times daily times 10 days follow-up culture Candidiasis, esophageal 03/10/2022 07/2 12/2021 Assessment & Plan (03/10/2022 3:50 PM EDT): The patient has been using nystatin for [...] 1 Immunodeficiency due to drugs 02/28/2022 03/10/2022 Assessment & Plan (03/10/2022 3:06 PM EDT): Chemotherapy has been completed MICHELE (acute kidney injury) 10/27/2021 Encounter for antineoplastic chemotherapy 09/15/2021 09/21/2021 Esophagitis 09/12/2021 09/21/2021 Type 2 diabetes mellitus wit h hyperglycemia, with long-term current use of insulin 08/30/2021 Assessment & Plan (03/10/2022 3:26 PM EDT): Is aPatient currently has been having some [...] neutropenia 07/27/2021 06/03/20 COVID-19 virus infection 07/25/2021 Iron overload, transfusional 02/26/2021 09/19/2024 Myelodysplastic syndrome 06/09/2020 Type 2 diabetes mellitus wit h mild nonproliferative diabetic retinopathy with macular edema, left eye 04/23/2019 06/03/2022 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05/2019 S/P primary angioplasty with coronary stent 06/12/2017 04/23/2019 Overview (06/12/2017): EDIL to LAD on 06/12/17 Venous stasis dermatitis of both lower extremities 07/04/2016 12/20/2018 Does not have health insurance 10/25/2012 05/01/2013 Depression 12/01/2009 07/23/2018 HYPERTENSION NOS 12/25/2013 MIGRAINE, UNSPECIFIED, WITHO UT MENTION OF INTRACTABLE MIGRAINE 07/23/2018 documented as of this encounter (statuses as of 10/07/2024) Immunizations Name Administration Dates Next Due COVID-19 mRNA, LNP-s, No Pre serve, 2-Dose Series (Pfizer) 02/05/2021,01/08/2021 COVID-19, LNP-s, No Preserve , Ye-sucrose, Ages 12+ (Pfizer) 12/06/2021 Pneumococcal Conjugate Vacc, 13 Valent (Prevnar) 06/10/2022,10/09/2015 Pneumococcal Polysaccharide PPV23 (Pneumovax) 01/06/2017,03/30/2011 Seasonal Influenza Vac., MDV , IM, 0.5 mL (Fluzone) 09/03/2014,08/13/2013 Seasonal Influenza Virus Vac cine, Unspecified Formulation 07/25/2019,07/23/2018,07/27/2017,01/06,10/09/2015,09/03/2014,08/27/2013 ,08/13/2013,08/27/2012,11/25/2011,11/2009,10/13/2009 Seasonal Influenza, PF, 6 M & above, IM , (FluLaval or Fluzone) 07/23/2018 Seasonal Influenza, Quadriva lent Hd, 65+ Yrs 07/17/2020,07/13/2020 Seasonal Influenza, Quadriva lent, No Preserve, IM 07/27/2017,01/06/2017,10/09/2015 Seasonal Influenza, Trivalen t, (IIV3), PF, (Fluzone) 08/27/2013,11/25/2011,08/13/2010,10/13 Seasonal Influenza, Trivalen t, Adjuvanted, 65+ YRS, PF, (Fluad) 07/25/2019 TDAP (age 10 and older)(Boostrix) 11/10/2016 TDAP, Age 7 and older, IM (Adacel) 03/30/2011 Zoster Vaccine Recombinant (Shingrix) ,07/17/2020,07/13/2020,07/23 documented [...] the money to buy more. Never true 08/13/20 24 Within the past 12 months, t he food you bought just didn't last and you didn't have money to get more. Never true 08/13/2024 Childcare Answer Date Recorded Do you feel overwhelmed with taking care of a child, family member or friend? No 08/13/2024 Does your family need help f inding childcare? (Household - for ages 0-17 years) Not on file 08/13/2024 Clothing Answer Date Recorded Have you been unable to get clothing when it was really needed? No 08/13/2024 Is your family able to get c lothes or diapers when needed? (Household - for ages 0-17 years) Not on file 08/13/2024 Personal Safety Answer Date Recorded Do you feel unsafe or have concerns for your saf ety? No 08/13/2024 Do you have concerns for you r family's safety? (Household - for ages 0-17 years) Not on file 08/13/2024 Utilities Answer Date Recorded Do you have trouble paying y our heating, water, or electric bill? No 08/13/2024 Is your family able to pay t he heat, water, or electric bill? (Household - for ages 0-17 years) Not on file 08/13/2024 Does your family have access to good internet? (Household - for ages 0-17 years) Not on file 08/13/2024 Employment Status Answer Date Recorded Are you unemployed or without regular income? No 08/13/2024 Does the household have a re gular source of income? (Household - for ages 0-17 years) Not on file 08/13/2024 Social Connections Answer Date Recorded How often do you feel lonely or isolated from th ose around you? Never 08/13/2024 Financial Resource Strain Answer Date R ecorded Do you have any trouble payi ng for your medications, or do you think you might in the future? No 08/13/2024 Does your family have troubl e paying for medicine? (Household - for ages 0-17 years) Not on file 08/13/2024 Transportation Needs Answer Date Record ed READ ONLY Do you have troubl e getting a ride to medical visits or work? Never True 08/13/2024 Does your family have a hard time getting a ride to doctors visits? (Household - for ages 0-17 years) Not on file 08/13/2024 Has lack of transportation k ept you from medical appointments, meetings, work, or from getting things needed for daily living? Check all that apply. No 08/13/2024 Do you (or your family) have trouble finding or paying for a ride (transportation)? (Household - for ages 0-17 years) Not on file 08/13/2024 Housing Stability Answer Date Recorded Do you currently live in a s helter or have no steady place to sleep at night? No 08/13/2024 READ ONLY Do you think you a re at risk of becoming homeless? No 08/13/2024 Does your family worry about paying for your home or becoming homeless? (Household - for ages 0-17 years) Not on file 1 Are you homeless or worried that you might be in the future? No 08/13/2024 Are you (or your family) lou eless or worried that you might be in the future? (Household - for ages 0-17 years) Not on file Food Insecurity Answer Date Recorded Do you need food for this week? No 08/13/2024 Are you able to get enough f ood for your family? (Household - for ages 0-17 years) Not on file 08/13/2024 Does your family need food t his week? (Household - for ages 0-17 years) Not on file 08/13/2024 Do you always have enough fo od for your family? (Household - for ages 0-17 years) Not on file 08/13/2024 Comments No Sex and Gender Information Value Date Recorded Sex Assigned at Female 12/12/2022 2:15 PM EST Legal Sex Female 6:02 AM EST Gender Identity Female 12/12/2022 2:15 PM EST Sexual Orientation Straight 12/12/2022 2: 27 PM EST documented as of this encounter Functional Status * Are you deaf or do you have serious difficulty hearing? Answer Date of Assessment Author No 08/27/2021 11:18 AM Sa sol Taylor RN * Are you blind or do you have serious difficulty seeing, even when wearing glasses? Answer Date of Assessment Author Yes 08/27/2021 11:18 AM Sa sol Taylor RN * Do you have serious difficulty walking or climbing stairs? (5 years old or older) Answer Date of Assessment Author No 08/27/2021 11:18 AM Sa sol Taylor RN * Do you have difficulty dressing or bathing? (5 years old or older) Answer Date of Assessment Author No 08/27/2021 11:18 AM Sa sol Taylor RN * Because of a physical, mental, or emotional condition, do you have difficulty doing errands alone such as visiting a doctors office or shopping? (15 years old or older) Answer Date of Assessment Author Yes 08/27/2021 11:18 AM Sa sol Taylor RN documented as of this encounter Mental Status * Because of a physical, mental, or emotional condition, do you have serious difficulty concentrating, remembering, or making decisions? (5 years old or older) Answer Entry Date Author No 08/27/2021 11:18 AM EDT Sa sol Zarate RN documented in this encounter Miscellaneous Notes * Telephone Encounter - Marisa Pacheco RN - 10/07/2024 8:27 AM EST Received message from patient's daughter reporting discomfort in bilateral eyes. APAP ineffective. Requesting script for Tramadol as she has had in the past. documented in this encounter Plan of Treatment Upcoming Encounters Date Type Department Care Team (Late st Contact Info) Description 10/09/2024 7:00 AM EST Laboratory Lab [facility] [address] [place] [id number] [facility] [address] [place] [id number] 10/16/2024 7:00 AM EST Laboratory Lab [facility] [address] [place] [id number] [facility] [address] [place] [id number] 10/16/2024 2:00 PM EST Office Visit Hematology/Oncology [facility] [address] [facility] [place] [phone] Mervat Castro, MARTA [address] [place], [place] [address] [address] 2024 7:00 AM EST Laboratory Lab [facility] [address] [place] [address] [facility] [address] [place] [address] 10/30/2024 7:00 AM EST Laboratory Lab Mobile Phlebotomy M[facility] [address] [employer] [place] [address] Mvmg, Gml Mobile Home Draw [address] [employer] [place] [address] 11/04/2024 4:00 PM EST Home Visit [facility] [place] [address] [place] [address] Marisa Pacheco, RN [address] [place] [address] 11/05/2024 9:30 AM EST Office Visit Ophthalmology, [facility] [address] [place] [address] Fernando Damon DO [address] [place] [address] 11/11/2024 2:00 PM EST Office Visit Pharmacy, [address] [place] [address] [place] [address] 11/15/2024 7:05 AM EST Laboratory Lab Mobile Phlebotomy MVMG 2520 [facility] [place], [place] [address] Mvmg, Gml Mobile Home Draw 2520 [facility] [place] [address] 11/20/2024 7:00 AM EST Laboratory Lab Mobile Phlebotomy MVMG 2520 [facility] [place] [address] Mvmg, Gml Mobile Home Draw [address] [employer] [place], [place] [address] 11/27/2024 7:00 AM EST Laboratory Lab Mobile Phlebotomy MVMG [address] [facility] [place] [address] Mvmg, Gml Mobile Home Draw [address] [employer] [place], [place] [address] 12/04/2024 7:00 AM EST Laboratory Lab Mobile Phlebotomy MVMG 2520 [facility] [place] [address] Mvmg, Gml Mobile Home Draw [address] [place] [address] 12/05/2024 9:00 AM EST [facility] Visit [facility] [place] [address] [place] [address] Tremaine Morgan PA-C [address] [place] [address] 12/11/2024 7:00 AM EST Laboratory Lab Mobile Phlebotomy MVM[facility] [address] [place] [address] Mvmg, Gml Mobile Home Draw [address] [place] [address] [address] [address] 12/18/2024 7:00 AM EST Laboratory Lab Mobile Phlebotomy MVMG [address] [place] [address] Mvmg, Gml [facility] Draw [address] [place] [address] 12/24/2024 2:30 PM EST Nurse Only Ancillary [address] [place] [address] [place], Nurse [address] [place] [address] 12/25/2024 7:00 AM EST Laboratory Lab Mobile Phlebotomy MVMG [address] [place] [address] Mvmg, Gml [facility] Home Draw [address] [place] [address] [address] 01/01/2025 7:00 AM EST Laboratory Lab Mobile Phlebotomy MVMG [address] [place] [address] Mvmg, Gml [facility] Home Draw [address] [place] [address] 01/08/2025 7:00 AM EST Laboratory Lab Mobile Phlebotomy MVMG [address] [place] [address] Mvmg, Gml Mobile Home Draw [address] [place] [address] 01/13/2025 11:40 AM EST Office Visit Family [address] [place] [phone] Dhruv Moss MD [address] [place] [address] [place] [address] 01/15/2025 7:00 AM EST Laboratory Lab Mobile Phlebotomy M[facility] [address] [place], [place] [address] Mvmg, Gml Mobile Home Draw [address] [place], [place] [address] 01/22/2025 7:00 AM EDT Laboratory Lab Mobile Phlebotomy MVM[facility] [address] [place], [place] [address] Mvmg, Gml Mobile Home Draw [address] [place], [place] [address] 01/29/2025 7:00 AM EDT Laboratory Lab Mobile Phlebotomy M[facility] [address] [place] [address] Mvmg, Gml [facility] Draw [address] [place] [address] 02/05/2025 7:00 AM EDT Laboratory Lab Mobile Phlebotomy MVMG [address] [place] [address] Mvmg, Gml [facility] Draw [address] [place] [address] 02/12/2025 7:00 AM EDT Laboratory Lab Mobile Phlebotomy MVMG [address] [place] [address] Mvmg, Gml [facility] Draw [address] [place] [address] 02/19/2025 7:00 AM EDT Laboratory Lab Mobile Phlebotomy MVMG [address] [place], [place] [address] Mvmg, Gml Mobile Home Draw [address] [place] [address] 02/26/2025 7:00 AM EDT Laboratory Lab Mobile Phlebotomy MVMG [address]20 [facility] [place] [address] Mvmg, Gml Mobile Home Draw 2520 [facility] [place] [address] 03/05/2025 7:00 AM EDT Laboratory Lab Mobile Phlebotomy MVMG [address] [facility] [place] [address] Mvmg, Gml Mobile Home Draw 2520 [facility] [place] [address] 03/12/2025 7:00 AM EDT Laboratory Lab Mobile Phlebotomy MVMG [address] [facility] [place] [address] Mvmg, Gml Mobile Home Draw 2520 [facility] [place] [address] 03/19/2025 7:00 AM EDT Laboratory Lab Mobile Phlebotomy MVMG [address] [facility] [place] [address] Mvmg, Gml Mobile Home Draw 2520 [facility] [place] [address] 03/26/2025 7:00 AM EDT Laboratory Lab Mobile Phlebotomy MVMG [address] [facility] [place] [address] Mvmg, Gml Mobile Home Draw [address] [facility] [place] [address] 04/02/2025 7:00 AM EDT Laboratory Lab Mobile Phlebotomy MVMG [address] [facility] [place] [address] Mvmg, Gml Mobile Home Draw [address] [facility] [place] [address] 04/09/2025 7:00 AM EDT Laboratory Lab Mobile Phlebotomy MVMG [address] [facility] [place] [address] Mvmg, Gml Mobile Home Draw [address] [facility] [place] [address] 04/16/2025 7:00 AM EDT Laboratory Lab Mobile Phlebotomy MVMG [address] [facility] [place] [address] Mvmg, Gml Mobile Home Draw 2520 [facility] [place] [address] 04/23/2025 7:00 AM EDT Laboratory Lab Mobile Phlebotomy MVMG [address] [place] [address] Mvmg, Gml Mobile Home Draw [address] [place] [address] 04/30/2025 7:00 AM EDT Laboratory Lab Mobile Phlebotomy MVMG [address] [place] [address] Mvmg, Gml Mobile Home Draw [address] [place] [address] 05/07/2025 7:00 AM EDT Laboratory Lab Mobile Phlebotomy MVMG [address] [place] [address] Mvmg, Gml Mobile Home Draw [address] [place] [address] 05/14/2025 7:00 AM EDT Laboratory Lab Mobile Phlebotomy MVMG [address] [place] [address] Mvmg, Gml Mobile Home Draw [address] [place] [address] 05/21/2025 7:00 AM EDT Laboratory Lab Mobile Phlebotomy MVMG [address] [place] [address] Mvmg, Gml Mobile Home Draw [address] [place] [address] 07/21/2025 1:30 PM EDT Imaging Radiology [address] [place] [address] 08/04/2025 1:20 PM EDT Office Visit Family Medicine [address] [place] [phone] Dhruv Moss MD [address] [place] [address] [place] [address] Health Maintenance Due Date Last Done Comments *BISPHONATE OR OTHER ACCEPTABLE MEDICATION NEEDED FOR OSTEOPOROSIS (REFER TO SMARTSET #1146) 11/06/2023 Colonoscopy 05/06/2024 05/06/2019, 05/06/2019 CKD PHOS USE SMARTSET 61127 06/07/2024/04/2023, 05/31/2023, 05/08/2023, Additional history exists COVID-19 Vaccine ( season) 2024 12/06/2021, 02/05/2021, 01/08/2021 Influenza Vaccine (FLU shot) (#1) 2024 07/17/2020, 07/13/2020, 07/25/2019, Additional history exists Albumin/Creatinine Ratio 09/15/2024 023, 03/08/2022, 10/29/2019, Additional history exists HbA1c 11/22/2024 05/22/2024, 010 06/2024, 12/06/2022, Additional history exists Adult Wellness Visit 12/22/2024 12/22/2023, 12/12/19 23 Depression Monitoring 12/22/2024 12/22/2023 GFR 12/27/2024 06/26/2024, 02/12, 01/24/2024, Additional history exists TSH 01/02/2025 01/02/2024, 11/14, 09/12/2022, Additional history exists DXA Scan 06/13/2025 06/13/2023, 0811/2022, 03/16/2015 Diabetic Foot Exam 07/02/2025 07/02/2024, 0 06/05/2023, 06/03/2022, Additional history exists Diabetic Eye Exam 08/28/2025 08/28/2024, , 08/28/2024, Additional history exists CKD HGB USE SMARTSET 86074 10/02/202510/02, 10/02/2024, 09/25/2024, Additional history exists DTap/Tdap Vaccines (3 - Td or Tdap) 11/10/2026 11/10/2016, 03/30/2011 VITAMIN D LEVEL ONCE IN A LIFETIME-USE SMARTSET# 45712 Completed 05/11/2015 RETIRED - COLONOSCOPY-EVERY 5 YRS AGES 18-100 Discontinued 05/06/2019, 05/06/2019 Zoster Vaccines Completed 10/30/2020, 02/2020, 07/13/2020, Additional history exists Pneumococcal Vaccine: 65+ Years Completed 06/10/2022, 01/06/2017, 10/09/2015, Additional history exists HPV (Gardasil) Vaccine Aged Out No lo nger eligible based on patient's age to complete this topic Hepatitis B Vaccine Aged Out No longe r eligible based on patient's age to complete this topic MENINGOCOCCAL (MENACTRA/MENVEO) Aged Out No longer eligible based on patient's age to complete this topic documented as of this encounter Medical Devices Implanted Type Area Round Kiln Drawer Device Identifier Shelf Expiration Date Model / Serial / Lot Port Pwr Mri Isp Profile - [id number] Implanted:Qty: 1 on 07/24/2020 by Akash Castillo MD at OR [facility] Right: Chest CR BARD : PERIPHERAL VASCULAR 04/12/2021 [id number] / / [id number] documented as of this encounter Advance Directives * Full Code (Latest Code Status on File) Date Activated Date Inactivated Comments 08/27/2021 1:10 PM 09/21/2021 5:49 PM This order reflects the patients wishes and were consensually agreed upon. Question Answer Comments Discussion of Advance Directives occurred with: Patient/Family Does the patient have a Living Will? No Does the patient have Health Care Power of Attor kole? No * Full Code Date Activated Date Inactivated Comments 07/27/2021 7:04 PM 07/31/2021 5:19 PM This order r eflects the patients wishes and were consensually agreed upon. Question Answer Comments Discussion of Advance Directives occurred with: Patient Does the patient have a Living Will? No Does the patient have Health Care Power of Attor kole? No * Full Code Date Activated Date Inactivated Comments 07/25/2021 12:43 PM 07/25/2021 11:03 PM This order reflects the patients wishes and were consensually agreed upon. Question Answer Comments Discussion of Advance Directives occurred with: Patient/Family Does the patient have a Living Will? No Does the patient have Health Care Power of Attor kole? No * Full Code Date Activated Date Inactivated Comments 06/12/2017 2:29 PM 06/12/2017 10:37 PM This order reflects the patients wishes and were consensually agreed upon. Question Answer Comments Discussion of Advance Directives occurred with: Not Discussed Does the patient have a Living Will? No Does the patient have Health Care Power of Attor kole? No Healthcare Agents on File Name Relationship Healthcare Agent [facility] Communication Juanita Silva Adult Child Health Care Agent Care Teams E Business Consultant Relationship Specialty Start Date End Date Dhruv Moss MD [address] [place] [address] [phone] PCP - General Family Medicine 08/27/21 documented as of this encounter
--- OUTSIDE RECORDS SUMMARY | 2024-10-10 00:23 | External Medical Summary | Summary of Care ---
Author Name Unknown Organization [facility] Address [address] [address] Phone [phone] Care Team Providers Care Ict Support Engineer Name Role Phone Dhruv Moss MD Primary Care Provide r Reason for Visit * Reason Onset Date Comments Medication Refill 10/07/2024 Encounter Details Date Type Department Care Team (Late st Contact Info) Description 10/07/2024 Telephone [facility] [address] [place] [address] Marisa Pacheco, RN [address] [place] [address] Medication Refill Allergies No known active allergiesdocumented [...] Nausea. 60 Tablet 3 12/09/19 22 Active Course HeroTouch Verio Flex System w/Device Kit Use as directed . 02/03/20 22 Active Acetaminophen 500 MG Oral Tablet Take 1 Tablet by mouth every 6 hours as needed. Active Magnesium 100 MG Oral Capsule Take 1 Capsule by mouth in the morning. Active Pen [place] 32G X 4 MM Use as directed. 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 Does not have any evidence of juhvc-[id number] disease Assessment & Plan (09/23/2024 10:42 AM [...] Currently in relapse. Hemoglobin yesterday 8.8. Platelets 92711. - weekly CBC. Transfusion to maintain above [...] EDT): I received a call from nurse immigration case worker in the field reporting that over the [...] that time. Coronary artery disease invo lving coyote [place] coronary artery of [place] heart without angina pectoris 06/12/2017 Overview (06/12/2017): [...] was that I can find were from [id number] Assessment/plan: Dyslipidemia with patient currently taking Lipitor [...] mRNA, LNP-s, No Pre serve, 2-Dose Series ([employer]) 02/05/2021,01/08/2021 COVID-19, LNP-s, No Preserve , Ye-sucrose, [...] 08/13/2024 Does the household have a re lar source of income? (Household - for ages [...] documented in this encounter Miscellaneous Notes * Addendum Note - Tremaine Pena PA-C - 10/07/2024 9:18 AM ESTAddended by: TREMAINE PENA on: 10/07/2024 09:18 AM Modules accepted: Orders * Telephone Encounter - Tremaine Pena PA-C - 10/07/2024 9:17 AM EST Tramadol refilled as requested. Script sent to [facility]. * Telephone Encounter - Marisa Pacheco RN [...] Mobile Phlebotomy MVMG [address] [place] [address] [address] Mvmg, Gml Mobile Home Draw [address] [place] [address] [address] 10/16/2024 7:00 AM EST Laboratory Lab Mobile Phlebotomy M[facility] [address] [place] [address] [address] Mvmg, Gml Mobile Home Draw [address] [place] [address] [address] 10/16/2024 2:00 PM EST [facility] [address] [place] [phone] Mervat Castro, MARTA [address] [place] [address] 2024 7:00 AM EST Laboratory Lab Mobile Phlebotomy MVMG [address] [employer] [facility] [place] [address] Mvmg, Gml Mobile Home Draw [address] [employer] [facility] [place] [address] 10/30/2024 7:00 AM EST Laboratory Lab Mobile Phlebotomy MVMG [address] [employer] [place] [address] Mvmg, Gml Mobile Home Draw [address]20 [facility] [place] [address] 11/04/2024 4:00 PM EST Home Visit [facility], [facility] 132 [facility] [place] [address] Marisa Pacheco, TANYA [address] [place] [address] 11/05/2024 9:30 AM EST Office Visit Ophthalmology, [facility] [address] [place] [address] Fernando Damon, [address] [place] [address] 11/11/2024 2:00 PM EST Office Visit Pharmacy, [address] [place] [address] [place] [address] 11/15/2024 7:05 AM EST Laboratory Lab Mobile Phlebotomy MVMG [address] [employer] [facility] [place] [address] Mvmg, Gml Mobile Home Draw [address] [employer] [facility] [place] [address] 11/20/2024 7:00 AM EST Laboratory Lab Mobile Phlebotomy MVMG [address] [facility] [address] [place], [place] [address] Mvmg, Gml Mobile Home Draw [address] [facility] [place] [address] 11/27/2024 7:00 AM EST Laboratory Lab Mobile Phlebotomy MVM[facility] [address] [facility] [address] [place], [place] [address] Mvmg, Gml Mobile Home Draw [address] [facility] [place] [address] 12/04/2024 7:00 AM EST Laboratory Lab Mobile Phlebotomy MVMG [address] [facility] [address] [place], [place] [address] Mvmg, Gml Mobile Home Draw [address] [facility] [address] [place], [place] [address] 12/05/2024 9:00 AM EST [facility] [place] [address] Tremaine Pena PA-C [address] [place] [address] 12/11/2024 7:00 AM EST Laboratory Lab Mobile Phlebotomy MVMG [address] [facility] [address] [place], [place] [address] Mvmg, Gml Mobile Home Draw [address] [facility] [address] [place], [place] [address] 12/18/2024 7:00 AM EST Laboratory Lab Mobile Phlebotomy MVMG [address] [facility] [address] [place], [place] [address] Mvmg, Gml Mobile Home Draw [address] [facility] [place] [address] 12/24/2024 2:30 PM EST Nurse Only Ancillary [address] [place] [address] [place], Nurse [address] [place] [address] 12/25/2024 7:00 AM EST Laboratory Lab Mobile Phlebotomy MVMG [address] [place] [address] Mvmg, Gml Mobile Home Draw [address] [facility] [place] [address] 01/01/2025 7:00 AM EST Laboratory Lab Mobile Phlebotomy MVMG [address] [place], [place] [address] Mvmg, Gml Mobile Home Draw 2520 [facility] [place] [address] 01/08/2025 7:00 AM EST Laboratory Lab Mobile Phlebotomy MVMG [address] [place], [place] [address] Mvmg, Gml Mobile Home Draw 2520 [facility] [place], [place] [address] 01/13/2025 11:40 AM EST Office Visit Family [address] [phone] Dhruv Moss MD [address] [place] [address] [place] [address] 01/15/2025 7:00 AM EST Laboratory Lab Mobile Phlebotomy MVMG [address] [place], [place] [address] Mvmg, Gml Mobile Home Draw [address] [place], [place] [address] 01/22/2025 7:00 AM EDT Laboratory Lab Mobile Phlebotomy MVMG [address] [place] [address] Mvmg, Gml Mobile Home Draw [address] [facility] [place] [address] 01/29/2025 7:00 AM EDT Laboratory Lab Mobile Phlebotomy MVMG [address] [place] [address] Mvmg, Gml Mobile Home Draw 2520 [facility] [place] [address] 02/05/2025 7:00 AM EDT Laboratory Lab Mobile Phlebotomy MVMG [address] [facility] [place] [address] Mvmg, Gml Mobile Home Draw 2520 [facility] [place] [address] 02/12/2025 7:00 AM EDT Laboratory Lab Mobile Phlebotomy MVMG [address] [facility] [place] [address] Mvmg, Gml Mobile Home Draw [address] [facility] [place] [address] 02/19/2025 7:00 AM EDT Laboratory Lab Mobile Phlebotomy MVMG [address] [facility] [place] [address] Mvmg, Gml Mobile Home Draw [address] [facility] [place] [address] 02/26/2025 7:00 AM EDT Laboratory Lab Mobile Phlebotomy MVMG [address] [facility] [place] [address] Mvmg, Gml Mobile Home Draw [address] [facility] [place] [address] 03/05/2025 7:00 AM EDT Laboratory Lab Mobile Phlebotomy MVMG [address] [facility] [place] [address] Mvmg, Gml Mobile Home Draw [address] [facility] [place] [address] 03/12/2025 7:00 AM EDT Laboratory Lab Mobile Phlebotomy MVMG [address] [facility] [place] [address] Mvmg, Gml Mobile Home Draw [address] [facility] [place] [address] 03/19/2025 7:00 AM EDT Laboratory Lab Mobile Phlebotomy MVMG [address] [facility] [place] [address] Mvmg, Gml Mobile Home Draw 25[address] [facility] [place] [address] 03/26/2025 7:00 AM EDT Laboratory Lab Mobile Phlebotomy MVMG [address] [facility] [place] [address] Mvmg, Gml Mobile Home Draw [address] [place] [address] 04/02/2025 7:00 AM EDT Laboratory Lab Mobile Phlebotomy MVMG [address] [facility] [place] [address] Mvmg, Gml Mobile Home Draw [address] [facility] [place] [address] 04/09/2025 7:00 AM EDT Laboratory Lab Mobile Phlebotomy MVMG [address] [facility] [place] [address] Mvmg, Gml Mobile Home Draw [address] [facility] [place] [address] 04/16/2025 7:00 AM EDT Laboratory Lab Mobile Phlebotomy MVMG [address] [facility] [place] [address] Mvmg, Gml Mobile Home Draw [address] [facility] [place] [address] 04/23/2025 7:00 AM EDT Laboratory Lab Mobile Phlebotomy MVMG [address] [facility] [place] [address] Mvmg, Gml Mobile Home Draw [address] [facility] [place] [address] 04/30/2025 7:00 AM EDT Laboratory Lab Mobile Phlebotomy MVMG [address] [facility] [place] [address] Mvmg, Gml Mobile Home Draw [address] [facility] [place] [address] 05/07/2025 7:00 AM EDT Laboratory Lab Mobile Phlebotomy MVMG [address] [facility] [place] [address] Mvmg, Gml Mobile Home Draw [address] [facility] [place] [address] 05/14/2025 7:00 AM EDT Laboratory Lab Mobile Phlebotomy MVMG [address] [facility] [place] [address] Mvmg, Gml Mobile Home Draw [address] [facility] [place] [address] 05/21/2025 7:00 AM EDT Laboratory Lab Mobile Phlebotomy MVMG 25[address] [facility] [place] [address] Mvmg, Gml Mobile Home Draw [address] [employer] [place] [address] 07/21/2025 1:30 PM EDT Imaging Radiology [address] [place] [address] 08/04/2025 1:20 PM EDT Office Visit Family Medicine [address] [place] [phone] Dhruv Moss MD [address] [place] [address] [place] [address] Health Maintenance Due Date Last Done Comments *BISPHONATE OR OTHER ACCEPTABLE MEDICATION NEEDED FOR OSTEOPOROSIS (REFER TO SMARTSET #1146) 11/06/2023 Colonoscopy 05/06/2024 05/06/2019, 05/06/2019 CKD PHOS USE SMARTSET 18520 06/07/202405/14, 05/31/2023, 05/08/2023, Additional history exists COVID-19 Vaccine ( season) 2024 12/06/2021, 02/05/2021, 01/08/2021 Influenza Vaccine (FLU shot) (#1) 2024 07/17/2020, 07/13/2020, 07/25/2019, Additional history exists Albumin/Creatinine Ratio 09/15/2024 023, 03/08/2022, 10/29/2019, Additional history exists HbA1c 11/22/2024 05/22/2024, 0 06/2024, 12/06/2022, Additional history exists Adult Wellness Visit 12/22/2024 12/22/2023, 12/12/19 23 Depression Monitoring 12/22/2024 12/22/2023 GFR 12/27/2024 06/26/2024, 02/12, 01/24/2024, Additional history exists TSH 01/02/2025 01/02/2024, 11/14, 09/12/2022, Additional history exists DXA Scan 06/13/2025 06/13/2023, 11/2022, 03/16/2015 Diabetic Foot Exam 07/02/2025 07/02/2024, 0 06/05/2023, 06/03/2022, Additional history exists Diabetic Eye Exam 08/28/2025 08/28/2024, , 08/28/2024, Additional history exists CKD HGB USE SMARTSET 85363 10/02/202510/02, 10/02/2024, 09/25/2024, Additional history exists DTap/Tdap Vaccines (3 - Td or Tdap) 11/10/2026 11/10/2016, 03/30/2011 VITAMIN D LEVEL ONCE IN A LIFETIME-USE SMARTSET# 92177 Completed 05/11/2015 RETIRED - COLONOSCOPY-EVERY 5 YRS [...] this encounter Medical Devices Implanted Type Area Belly Dump Driver Device Identifier Shelf Expiration Date Model / Serial / Lot Port Pwr Mri Isp Profile - [id number] Implanted:Qty: 1 on 07/24/2020 by Akash Castillo MD at OR [facility] Right: Chest CR BARD : PERIPHERAL VASCULAR 04/12/2021 [id number] / / [id number] documented as of this encounter Advance Directives [...] Agents on File Name Relationship Healthcare Agent [facility] Communication Juanita Silva Adult Child Health Care Agent Care Teams Ict Support Engineer Relationship Specialty Start Date End Date Dhruv Moss MD [address] [place] [address] [place] [id number] PCP - General Family Medicine 08/27/21 documented as of this encounter
--- OUTSIDE RECORDS SUMMARY | 2024-10-10 00:24 | External Medical Summary | Summary of Care ---
Author Name Unknown Organization [facility] Address [address] [facility] [place] [address] Phone [phone] Care Team Providers Care Supervisor Microwave Name Role Phone Dhruv Moss MD Primary Care Provide r Encounter Details Date Type Department Care Team (Late st Contact Info) Description 10/04/2024 8:30 AM EST Home Visit [facility], [facility] [address] [facility] [place] [address] Marisa Pacheco, RN [address] [facility] [place] [address] Change in mental status* Allergies No known active allergiesdocumented as of this encounter (statuses as of 10/05/2024) Medications Diclofenac Sodium 1 % External GelIndications:kne e pain Apply topically to affected area . Apply to bilateral knees Active Prochlorperazine Maleate 10 MG Oral Tablet (Compazine)Indicat ions:H/O allogeneic bone marrow transplant (HCC) Take by mouth 1 Tablet every 6 hours as needed for Nausea. 60 Tablet 3 12/09/19 22 Active YouEyeTokapturemio Flex System w/Device Kit Use as directed . 12/16/19 22 Active Acetaminophen 500 MG Oral Tablet Take 1 Tablet by mouth every 6 hours as needed. Active Magnesium 100 MG Oral Capsule Take 1 Capsule by mouth in the morning. Active Pen Brady 32G X 4 MM Use as directed. Use to inject insulin up to 4 times daily. 400 Each 3 4 7:20 AM EDT 04/05/20 24 Active Atorvastatin [...] 24 Hour (Imdur)Indications :Coronary artery disease involving quinault coronary artery of quinault heart without angina pectoris,HTN, goal below 140/90 [...] DAILY DOSE 50 units 45 mL 3 4 9:45 AM EDT 09/03/20 24 Active Venlafaxine HCl ER 150 MG Oral Capsule Extended Release 24 Hour (Effexor XR)Indications:Rec urrent major depressive disorder, in partial remission (HCC) TAKE ONE CAPSULE BY MOUTH EVERY DAY do not cut, crush, or chew 90 Capsule 2 09/23/20 24 Active Cefdinir 300 MG Oral Capsule (Omnicef) Take 1 Capsule by mouth in the morning and 1 Capsule before bedtime. Do all this for 7 days. 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, unspecified whether usp insulin use (HCC) 1.25 mg IZ PRN 07/17/2024 07/17/2025 Ac tive Aflibercept (Eylea) intravitreal inj 2 mgIndications: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 Date of Transplant: 09/01/2021 Conditioning Regimen: Fludarabine / Busulfan 2 with post-transplant Cytoxan ABO/Rh: A Positive CMV status: CMV Positive--- GRID: [id number] / DID: [id number] Matched Unrelated 10/24--- DPB1 Match ABO/Rh: A [...] & Plan (04/04/2023 4:21 PM EDT): Platelets 06023 on 03/20 Questionable hematuria Urinary incontinence 09/12/2022 [...] failure. Does not have any evidence of euieu-[id number] disease Assessment & Plan (09/23/2024 10:42 AM [...] Currently in relapse. Hemoglobin yesterday 8.8. Platelets 99719. - weekly CBC. Transfusion to maintain above [...] EDT): I received a call from nurse case monitor in the field reporting that over the [...] that time. Coronary artery disease invo lving quinault coronary artery of quinault heart without angina pectoris 06/12/2017 Overview (06/12/2017): [...] was that I can find were from [phone] Assessment/plan: Dyslipidemia with patient currently taking Lipitor [...] as of this encounter (statuses as of 10/05/2024) Resolved Problems Problem Noted Date Diagnosed Date Resolved Date Controlled substance agreement signed 03/04/2024 03/04/2024 Acute cystitis without hematuria 05/09/2023 07/22/2024 Assessment & Plan (05/09/2023 4:23 PM EDT): Given history of urosepsis, will opt to treat with Keflex 500 mg p.o. Three times daily times 10 days follow-up culture Candidiasis, esophageal 03/10/202205/14 Assessment & Plan (03/10/2022 3:50 PM EDT): [...] as of this encounter (statuses as of 10/05/2024) Immunizations Name Administration Dates Next Due COVID-19 mRNA, LNP-s, No Pre serve, 2-Dose Series (Rent Here) 02/05/2021,01/08/2021 COVID-19, LNP-s, No Preserve , Ye-sucrose, [...] PM EST documented as of this encounter Last Filed Vital Signs Vital Sign Reading Time Taken Comments Blood Pressure 138/62 10/04/2024 9:52 AM EST Pulse 80 10/04/2024 9:52 AM EST Temperature 36.7 C (98.1 F) 10/04/2024 9:52 AM ES T Respiratory Rate 18 10/04/2024 9:52 AM EST Oxygen Saturation 97% 10/04/2024 9:52 AM EST Inhaled Oxygen Concentration - - Weight - - Height - - Body Mass Index - - documented in this encounter Functional Status * Are you [...] Entry Date Author No 08/27/2021 11:18 AM Sa sol Taylor RN documented in this encounter Progress Notes * Marisa Pacheco RN - 10/04/2024 9:19 AM EST Current Concerns: Patient seen for acute visit- Daughter reached out to this nurse regarding patient behavior- concern for UTI. Received blood transfusion yesterday. Has been requiring blood products weekly. Upon arrival- patient sleeping Spoke with - reports the last couple of days have been rough. tearful with discussion. Reports last evening patient had recliner flipped over and was running the sweeper. Patient is seeing people that isn't there. Has gone into husbands room asking him where she is at. Patient is alert- reports fatigue Patient states I'm about to give up on it all. I'm tired of being sick. Blood sugars not checking regularly- Freestyle Jojo 10/01- 160, 140 09/30- 196, 155, 69,198 09/29- 171 09/28- 185 09/27- 172 Missed three days of medications. At present, patient continues to do her own pill box. Took meds while this nurse was present. Received injection OU- Monday Wearing sunglasses d/t light sensitivity. VS wnl Lungs clear bilaterally No sob noted Voiding without difficulty- does not have classic symptoms of UTI Bowels wnl Appetite poor Taking fluids TT to Tremaine Prince- JOVI UA obtained Patient to start Cefdinir BID today- pending urine results. Physical Exam: Physical Exam Constitutional: Appearance: She is ill-appearing. Cardiovascular: Rate and Rhythm: Normal rate and regular rhythm. Pulses: Normal pulses. Pulmonary: Effort: Pulmonary effort is normal. Breath sounds: Normal breath sounds. Abdominal: General: Bowel sounds are normal. Palpations: Abdomen is soft. Musculoskeletal: General: Normal range of motion. Skin: General: Skin is warm and dry. Capillary Refill: Capillary refill takes 2 to 3 seconds. Coloration: Skin is pale. Neurological: General: No focal deficit present. Mental Status: She is alert and oriented to person, place, and time. Motor: Weakness present. Gait: Gait abnormal. Psychiatric: Mood and Affect: Mood normal. Behavior: Behavior normal. Review of Systems: Review of Systems Constitutional: Positive for appetite change and fatigue. Respiratory: Negative. Cardiovascular: Negative. Gastrointestinal: Negative. Genitourinary: Negative. Musculoskeletal: Positive for gait problem. Neurological: Positive for weakness. Hematological: Negative. Psychiatric/Behavioral: Negative. Care Plan Goal Progress: Patient will remain free of falls. (Progressing) Start: 08/13/24 Expected End: 11/11/24 Patient will remain free from infection. (Progressing) Start: 08/13/24 Expected End: 11/11/24 Orders Placed: Plan Urinalysis, Reflex to Culture (Not for Neutropenic Patients) Urinalysis, Reflex to Culture Medications Given: Care Gaps: Care Gaps Care gaps closed this contact: Education;Lab/radiology testing coordinated (10/05/24 1527) Type of education: Clinical/disease (10/05/24 8385) documented in this encounter Miscellaneous Notes * Care Plan - Marisa Pacheco RN - 10/05/2024 4:16 PM EST UA obtained 10/04- mental status change 10/05/24- UA negative- Cefdnir stopped documented in this encounter Plan of Treatment Upcoming Encounters Date Type Department Care Team (Late st Contact Info) Description 10/06/2024 8:45 AM EST Scheduled Telephone [facility], [facility] [address] [facility] [place] [address] [facility], Nurse [facility] [address] [facility] [place] [address] 10/09/2024 7:00 AM EST Laboratory [facility] [address] [place] [address] [facility] [address] [facility] [place] [address] 10/16/2024 7:00 AM EST Laboratory [facility] [address] [facility] [place] [address] [facility] [address] [facility] [place] [address] 10/16/2024 2:00 PM EST Office Visit Hematology/Oncology [facility] [place] [address] [facility] [place], [place] [address] Mervat Castro, MARTA [address] [place] [address] [place] [address] 2024 7:00 AM EST Laboratory [facility] [address] [place], [place] [address] [facility] [address] [facility] [place], [place] [address] 10/30/2024 7:00 AM EST Laboratory [facility] [address] [facility] [place], [place] [address] [facility] [address] [facility] [place], [place] [address] 11/04/2024 4:00 PM EST Home Visit [facility], [facility] [address] [facility] [place] [address] Marisa Pacheco, TANYA [address] [facility] [place] [address] 11/05/2024 9:30 AM EST Office Visit Ophthalmology, [facility] [address] [place] [address] Fernando Damon DO [address] [place] [address] 11/11/2024 2:00 PM EST Office Visit Pharmacy, [address] [place] [address] [place] [address] 11/15/2024 7:05 AM EST Laboratory [facility] [address] [place], [place] [address] [facility] [address] [place], [place] [address] 11/20/2024 7:00 AM EST Laboratory [facility] [address] [employer] [place], [place] [address] [facility] [address] [facility] [place], [place] [address] 11/27/2024 7:00 AM EST Laboratory Lab [facility] [address] [employer] [facility] [place], [place] [address] [facility] [address] [place], [place] [address] 12/04/2024 7:00 AM EST Laboratory [facility] [address] [employer] [place], [place] [address] [facility] [address] [facility] [place], [place] [address] 12/05/2024 9:00 AM EST Home Visit [facility], [facility] [address] [place] [address] Tremaine Morgan PA-C [address] [place] [address] 12/11/2024 7:00 AM EST Laboratory [facility] [address] [employer] [place] [address] [facility] [address] [facility] [place] [address] 12/18/2024 7:00 AM EST Laboratory [facility] [address] [employer] [place] [address] [facility] [address] [facility] [place] [address] 12/24/2024 2:30 PM EST Nurse Only Ancillary [address] [place] [address] [place], Nurse [address] [place] [address] 12/25/2024 7:00 AM EST Laboratory [facility] [address] [employer] [place] [address] [facility] [address] [employer] [place] [address] 01/01/2025 7:00 AM EST Laboratory [facility] [address] [employer] [facility] [place] [address] [facility] [address] [employer] [place] [address] 01/08/2025 7:00 AM EST Laboratory [facility] [address] [employer] [place] [address] [facility] [address] [employer] [place] [address] 01/13/2025 11:40 AM EST Office Visit Family Medicine [address] [place] [address] Dhruv Moss MD [address] [place] [address] [place] [address] 01/15/2025 7:00 AM EST Laboratory [facility] [address] [facility] [place] [address] [facility] [address] [facility] [place] [address] 01/22/2025 7:00 AM EDT Laboratory Lab [facility] [address] [facility] [place] [address] [facility] [address] [place] [address] 01/29/2025 7:00 AM EDT Laboratory Lab [facility] [address] [facility] [place] [address] [facility] [address] [place] [address] 02/05/2025 7:00 AM EDT Laboratory [facility] [address] [place] [address] [facility] [address] [place] [address] 02/12/2025 7:00 AM EDT Laboratory [facility] [address] [place] [address] [facility] [address] [place] [address] 02/19/2025 7:00 AM EDT Laboratory [facility] [address] [place] [address] [facility] [address] [place] [address] 02/26/2025 7:00 AM EDT Laboratory [facility] [address] [place] [address] [facility] [address] [place] [address] 03/05/2025 7:00 AM EDT Laboratory [facility] [address] [place] [address] [facility] [address] [facility] [place] [address] 03/12/2025 7:00 AM EDT Laboratory [facility] [address] [facility] [place] [address] [facility] [address] [place] [address] 03/19/2025 7:00 AM EDT Laboratory [facility] [address] [place] [address] [facility] [address] [place] [address] 03/26/2025 7:00 AM EDT Laboratory [facility] [address] [facility] [place] [address] [facility] [address] [place] [address] 04/02/2025 7:00 AM EDT Laboratory Lab [facility] [address] [facility] [place] [address] [facility] [address] [place] [address] 04/09/2025 7:00 AM EDT Laboratory [facility] [address] [facility] [place] [address] [facility] [address] [place] [address] 04/16/2025 7:00 AM EDT Laboratory [facility] [address] [facility] [place] [address] [facility] [address] [facility] [place] [address] 04/23/2025 7:00 AM EDT Laboratory [facility] [address] [facility] [place] [address] [facility] [address] [place] [address] 04/30/2025 7:00 AM EDT Laboratory [facility] [address] [place] [address] [facility] [address] [place] [address] 05/07/2025 7:00 AM EDT Laboratory [facility] [address] [place] [address] [facility] [address] [place] [address] 05/14/2025 7:00 AM EDT Laboratory [facility] [address] [place] [address] [facility] [address] [place] [address] 05/21/2025 7:00 AM EDT Laboratory [facility] [address] [place] [address] [facility] [address] [place] [address] 07/21/2025 1:30 PM EDT Imaging Radiology [address] [place] [address] 08/04/2025 1:20 PM EDT Office Visit Family Medicine [address] [place] [phone] Dhruv Moss MD [address] [place] [address] [place] [address] Health Maintenance Due Date Last Done Comments *BISPHONATE OR OTHER ACCEPTABLE MEDICATION NEEDED FOR OSTEOPOROSIS (REFER TO SMARTSET #1146) 11/06/2023 Colonoscopy 05/06/2024 05/06/2019, 05/06/2019 CKD PHOS USE SMARTSET 21491 06/07/202405/14, 05/31/2023, 05/08/2023, Additional history exists COVID-19 [...] Additional history exists CKD HGB USE SMARTSET 12432 10/02/202510/02, 10/02/2024, 09/25/2024, Additional history exists DTap/Tdap Vaccines (3 - Td or Tdap) 11/10/2026 11/10/2016, 03/30/2011 VITAMIN D LEVEL ONCE IN A LIFETIME-USE SMARTSET# 33835 Completed 05/11/2015 RETIRED - COLONOSCOPY-EVERY 5 YRS [...] encounter Medical Devices Implanted Type Area Supervisor Instant Potato Processing Device Identifier Shelf Expiration Date Model / Serial / Lot Port Pwr Mri Isp Profile - [id number] Implanted:Qty: 1 on 07/24/2020 by Akash Castillo MD at OR [facility] Right: Chest CR BARD : PERIPHERAL VASCULAR 04/12/2021 [id number] / / [id number] documented as of this encounter Procedures Procedure Name Priority Date/Time Associated Diagnosis Comments URINALYSIS, REFLEX TO CULTURE Routine 10/04/2024 10:07 AM EST Change in mental status URINALYSIS, REFLEX TO CULTURE (NOT FOR NEUTROPENIC PATIENTS) Routine 10/04/2024 10:07 AM EST Change in mental status documented in this encounter Results * (ABNORMAL) URINALYSIS, REFLEX TO CULTURE (10/04/2024 10:07 AM EST) Color, Urine Light Yellow Colorless, Light Yellow, Yellow, Dark Yellow 10/04/2024 10:33 PM EST [facility] Clarity, Urine Clear Clear 10/04/2024 10:33 PM EST [facility] Glucose, Urine Negative Negative mg/dL 10/04/2024 10:33 PM EST [facility] Bilirubin, Urine Negative Negative 10/04/2024 10:33 PM EST [facility] Ketone, Urine Trace(A) Negative mg/dL 10/04/2024 10:33 PM EST [facility] Specific Loving, Urine 1.011 1.003 - 1.030 10/04/2024 10:33 PM EST [facility] Blood, Urine Small(A) Negative 10/04/2024 10:33 PM EST [facility] pH, Urine 6.5 5.0 - 7.5 Units 10/04/2024 10:33 PM EST [facility] Protein, Urine Negative Negative mg/dL 10/04/2024 10:33 PM EST [facility] Urobilinogen, Urine Normal Normal mg/dL 10/04/2024 10:33 PM EST [facility] Nitrite, Urine Negative Negative 10/04/2024 10:33 PM EST [facility] Esterase, Urine Negative Negative 10/04/2024 10:33 PM EST [facility] RBC, Urine 0-2 0 - 2 /HPF 10/04/2024 10:33 PM EST [facility] WBC, Urine 0-2 0 - 2 /HPF 10/04/2024 10:33 PM EST [facility] Bacteria, Urine 0-25 0 - 25 /HPF 10/04/2024 10:33 PM EST [facility] Hyaline, Cast, Urine 1-4(A) None /LPF 10/04/2024 10:33 PM EST [facility] Culture, Urine 10/04/2024 10:33 PM EST [facility] Comment:Culture not indicate d by urinalysis results Urine Urine specimen obtained by clean catch procedure / Unknown Non-blood Collection / Unknown 10/04/2024 10:07 AM EST 10/04/2024 10:52 AM EST Tremaine Morgan PA-C LAB URINE ORDERABLES Final R esult [facility] [place] [address] [place] [address] documented in this encounter Visit Diagnoses Diagnosis Recurrent major depressive disorder, in partial remission (HCC)- Primary ACP (advance care planning)- Primary Other specified counseling Immunodeficiency due to drugs (HCC) Type 2 diabetes mellitus with hyperglycemia, with long-term current use of insulin (HCC) Recurrent major depressive disorder, in partial remission (HCC) Type 2 diabetes mellitus with retinopathy without macular edema, unspecified laterality, unspecified retinopathy severity, unspecified whether terminal computer operator insulin use ([facility]) HTN, goal below 140/90 Unspecified essential hypertension Coronary artery disease involving quinault coronary artery of quinault heart without angina pectoris Acquired hypothyroidism Unspecified hypothyroidism Gastro-esophageal reflux disease without esophagitis Esophageal reflux Dyslipidemia, goal LDL below 70 Other and unspecified hyperlipidemia Coronary artery disease involving quinault coronary artery of quinault heart without angina pectoris- Primary MDS (myelodysplastic syndrome), high grade (HCC) High grade myelodysplastic syndrome lesions Thrombocytopenia (HCC) Thrombocytopenia, unspecified Acquired hypothyroidism Unspecified hypothyroidism Hypomagnesemia Disorders of magnesium metabolism Insulin-requiring or dependent type II diabetes mellitus (HCC) Type II or unspecified type diabetes mellitus without mention of complication, not stated as uncontrolled Urinary incontinence, unspecified type Stem cells transplant status (HCC) 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 Recurrent major depressive disorder, in partial remission (HCC) Myelodysplastic syndrome (HCC)- Primary Myelodysplastic syndrome, unspecified Coronary artery disease involving quinault coronary artery of quinault heart without angina pectoris HTN, goal below 140/90 Unspecified essential hypertension MDS (myelodysplastic syndrome), high grade (HCC) High grade myelodysplastic syndrome lesions Acquired hypothyroidism Unspecified hypothyroidism Type 2 diabetes mellitus with hemoglobin A1c goal of less than 8.0% (HCC) Gastro-esophageal reflux disease without esophagitis Esophageal reflux Recurrent major depressive disorder, in partial remission (HCC) Acute cystitis without hematuria Acute cystitis Fall in home, initial encounter- Primary Ambulatory dysfunction MDS (myelodysplastic syndrome), high grade (HCC) High grade myelodysplastic syndrome lesions Type 2 diabetes mellitus with hemoglobin A1c goal of less than 8.0% (HCC) Age-related osteoporosis without current pathological fracture Senile osteoporosis MDS (myelodysplastic syndrome), high grade (HCC)- Primary High grade myelodysplastic syndrome lesions Stem cells transplant status (HCC) 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 Type 2 diabetes mellitus with hemoglobin A1c goal of less than 8.0% (HCC) Advanced care planning/counseling discussion Other specified counseling MDS (myelodysplastic syndrome), high grade (HCC)- Primary High grade myelodysplastic syndrome lesions Chronic kidney disease, stage 3a (HCC) Type 2 diabetes mellitus with both eyes affected by moderate nonproliferative retinopathy and macular edema, with long-term current use of insulin (HCC) Advanced care planning/counseling discussion Other specified counseling Ambulatory dysfunction Change in mental status- Primary Altered mental status Screening mammogram for breast cancer documented in this encounter Advance Directives * Full Code [...] Agents on File Name Relationship Healthcare Agent [facility] p Communication Juanita Bur Adult Child Health Care Agent Care Teams Supervisor Microwave Relationship Specialty Start Date End Date Dhruv Moss MD [address] [place], [place] [address] [address] PCP - General Family Medicine 08/27/21 documented as of this encounter
--- OUTSIDE RECORDS SUMMARY | 2024-10-10 00:24 | External Medical Summary | Summary of Care ---
Author Name Unknown Organization [facility] Address [address] [place] [address] Phone [phone] Care Team Providers Care Stringing Machine Tender Name Role Phone Dhruv Moss MD Primary Care Provide r Reason for Visit * Reason Onset Date Comments [facility]: Engagement 10/04/2024 Encounter Details Date Type Department Care Team (Late st Contact Info) Description 10/04/2024 Telephone [facility] [place] [address] [place] [address] Sara Oscar, VEDA [address], [place] [id number] [facility]: Engagement Allergies No known active allergiesdocumented as of this encounter (statuses as of 10/04/2024) Medications Diclofenac Sodium 1 % External GelIndications:kne e pain Apply topically to affected area . Apply to bilateral knees Active Prochlorperazine Maleate 10 MG Oral Tablet (Compazine)Indicat ions:H/O allogeneic bone marrow transplant (HCC) Take by mouth 1 Tablet every 6 hours as needed for Nausea. 60 Tablet 3 12/09/19 Active NexterraTouch Verio Flex System w/Device Kit Use as directed . 12/16/19 22 Active Acetaminophen 500 MG Oral Tablet Take 1 Tablet by mouth every 6 hours as needed. Active Magnesium 100 MG Oral Capsule Take 1 Capsule by mouth in the morning. Active Pen [place] 32G X 4 MM Use as directed. 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,HTN, goal below 140/90 [...] Oral TabletIndications: MDS (myelodysplastic syndrome), high grade ([facility]) Take 1 Tablet by mouth every [...] urrent major depressive disorder, in partial remission ([facility]) TAKE ONE CAPSULE BY MOUTH EVERY [...] edema, unspecified whether correction insulin use (HCC) 1.25 mg IZ PRN 07/17/2024 07/17/2025 Ac tive Aflibercept (Eylea) intravitreal inj 2 mgIndications: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 Date of Transplant: 09/01/2021 Conditioning Regimen: Fludarabine / Busulfan 2 with post-transplant Cytoxan ABO/Rh: A Positive CMV status: CMV Positive--- GRID: [id number] / DID: [id number] Matched Unrelated 10/24--- DPB1 Match ABO/Rh: A [...] & Plan (04/04/2023 4:21 PM EDT): Platelets 26321 on 03/20 Questionable hematuria Urinary incontinence 09/12/2022 [...] failure. Does not have any evidence of ieonl-bvdxed-kdgu disease Assessment & Plan (09/23/2024 10:42 AM [...] Currently in relapse. Hemoglobin yesterday 8.8. Platelets 99002. - weekly CBC. Transfusion to maintain above [...] EDT): I received a call from nurse onsite case manager in the field reporting that over the [...] that time. Coronary artery disease invo lving lower brule coronary artery of lower brule heart without angina pectoris 06/12/2017 Overview (06/12/2017): [...] was that I can find were from [id number] Assessment/plan: Dyslipidemia with patient currently taking Lipitor [...] as of this encounter (statuses as of 10/04/2024) Resolved Problems Problem Noted Date Diagnosed Date [...] as of this encounter (statuses as of 10/04/2024) Immunizations Name Administration Dates Next Due COVID-19 mRNA, LNP-s, No Pre serve, 2-Dose Series ([employer] 02/05/2021,01/08/2021 COVID-19, LNP-s, No Preserve , [...] No 08/13/2024 Does the household have a [facility] source of income? (Household - for ages [...] Miscellaneous Notes * Telephone Encounter - Sara Oscar OSA - 10/04/2024 10:14 AM EST Tara request weekend calls to fu on urine and mental status, call set. documented in this encounter Plan of Treatment Upcoming Encounters Date Type Department Care Team (Late st Contact Info) Description 10/05/2024 12:45 PM EST Scheduled Telephone [facility] [address] [facility] [place] [address] [facility], Nurse [address] [place] [address] 10/06/2024 8:45 AM EST Scheduled Telephone [facility] [address] [facility] [place] [address] [facility], Nurse [address] [place] [address] 10/09/2024 7:00 AM EST Laboratory [facility] [address] [place] [address] [facility] [address] [place], [place] [address] 10/16/2024 7:00 AM EST Laboratory [facility] [address] [place] [address] [facility] [address] [place], [place] [address] 10/16/2024 2:00 PM EST Office Visit Hematology/Oncology [facility] [place] [address] [facility] [place] [phone] Mervat Castro CRNP [address] [place] [address] [place] [address] 2024 7:00 AM EST Laboratory [facility] [address] [facility] [place] [address] [facility] [address] [facility] [place] [address] 10/30/2024 7:00 AM EST Laboratory [facility] [address] [facility] [place] [address] [facility] [address] [facility] [place] [address] 11/04/2024 4:00 PM EST Home Visit [facility] [place] [address] [facility] [place] [address] Marisa Pacheco, TANYA [address] [facility] [place] [address] 11/05/2024 9:30 AM EST Office Visit Ophthalmology, [facility] [address] [facility] [place] [address] Fernando Damon DO [address] [facility] [place] [address] 11/11/2024 2:00 PM EST Office Visit Pharmacy, [address] [place] [address] [place] [address] 11/15/2024 7:05 AM EST Laboratory [facility] [address] [facility] [place] [address] [facility] [address] [facility] [place] [address] 11/20/2024 7:00 AM EST Laboratory [facility] [address] [employer] [facility] [place] [address] [facility] [address] [facility] [address] [place], [place] [address] 11/27/2024 7:00 AM EST Laboratory [facility] [address] [facility] [address] [place], [place] [address] [facility] [address] [facility] [address] [place], [place] [address] 12/04/2024 7:00 AM EST Laboratory [facility] [address] [facility] [address] [place], [place] [address] [facility] [address] [facility] [address] [place] [address] 12/05/2024 9:00 AM EST Home Visit [facility], [facility] [place] [address] Tremaine Morgan PA-C [address] [facility] [place] [address] 12/11/2024 7:00 AM EST Laboratory [facility] [address] [facility] [place] [address] [facility] [address] [facility] [address] [place], [place] [address] 12/18/2024 7:00 AM EST Laboratory [facility] [address] [place], [place] [address] [facility] [address] [facility] [address] [place], [place] [address] 12/24/2024 2:30 PM EST Nurse Only Ancillary [address] [place] [address] Cristina, Nurse [address] [place] [address] 12/25/2024 7:00 AM EST Laboratory [facility] [address] [facility] [address] [place], [place] [address] [facility] [address] [place] [address] 01/01/2025 7:00 AM EST Laboratory [facility] [address] [place], [place] [address] [facility] [address] [place] [address] 01/08/2025 7:00 AM EST Laboratory [facility] [address] [place], [place] [address] [facility] [address] [place] [address] 01/13/2025 11:40 AM EST Office Visit Family Medicine [address] [phone] Dhruv Moss MD [address] [place], [place] [address] [address] 01/15/2025 7:00 AM EST Laboratory [facility] [address] [place], [place] [address] [facility] [address] [place], [place] [address] 01/22/2025 7:00 AM EDT Laboratory [facility] [address] [place] [address] [facility] [address] [place] [address] 01/29/2025 7:00 AM EDT Laboratory [facility] [address] [place] [address] [facility] [address] [place] [address] 02/05/2025 7:00 AM EDT Laboratory [facility] [address] [place] [address] [facility] [address] [place] [address] 02/12/2025 7:00 AM EDT Laboratory [facility] [address] [place] [address] [facility] [address] [place] [address] 02/19/2025 7:00 AM EDT Laboratory [facility] [address] [place] [address] [facility] [address] [place] [address] 02/26/2025 7:00 AM EDT Laboratory [facility] [address] [place] [address] [facility] [address] [place] [address] 03/05/2025 7:00 AM EDT Laboratory [facility] [address] [place] [place] [address] [facility] [address] [facility] [place] [address] 03/12/2025 7:00 AM EDT Laboratory [facility] [address] [facility] [place] [address] [facility] [address] [place] [address] 03/19/2025 7:00 AM EDT Laboratory [facility] [address] [facility] [place] [address] [facility] [address] [facility] [place] [address] 03/26/2025 7:00 AM EDT Laboratory [facility] [address] [place] [address] [facility] [address] [place] [address] 04/02/2025 7:00 AM EDT Laboratory [facility] [address] [place] [address] [facility] [address] [place] [address] 04/09/2025 7:00 AM EDT Laboratory [facility] [address] [place] [address] [facility] [address] [facility] [place] [address] 04/16/2025 7:00 AM EDT Laboratory [facility] [address] [facility] [place] [address] [facility] [address] [facility] [place] [address] 04/23/2025 7:00 AM EDT Laboratory [facility] [address] [place] [address] [facility] [address] [facility] [place] [address] 04/30/2025 7:00 AM EDT Laboratory [facility] [address] [place] [address] [facility] [address] [place] [address] 05/07/2025 7:00 AM EDT Laboratory [facility] [address] [place] [address] [facility] [address] [facility] [place] [address] 05/14/2025 7:00 AM EDT Laboratory [facility] [address] [place] [address] [facility] [address] [place] [address] 05/21/2025 7:00 AM EDT Laboratory [facility] [address] [place] [address] [facility] [address] [place] [address] 07/21/2025 1:30 PM EDT Imaging Radiology [address] [place] [address] 08/04/2025 1:20 PM EDT Office Visit Family Medicine [address] [place] [phone] Dhruv Moss MD [address] [place] [address] [place] [address] Health Maintenance Due Date Last Done Comments *BISPHONATE OR OTHER ACCEPTABLE MEDICATION NEEDED FOR OSTEOPOROSIS (REFER TO SMARTSET #1146) 11/06/2023 Colonoscopy 05/06/2024 05/06/2019, 05/06/2019 CKD PHOS USE SMARTSET 87947 06/07/202405/14, 05/31/2023, 05/08/2023, Additional history exists COVID-19 Vaccine ( season) 2024 12/06/2021, 02/05/2021, 01/08/2021 Influenza Vaccine (FLU shot) (#1) 2024 07/17/2020, 07/13/2020, 07/25/2019, Additional history exists Albumin/Creatinine Ratio 09/15/2024 023, 03/08/2022, 10/29/2019, Additional history exists HbA1c 11/22/2024 05/22/2024, 01/0 06/2024, 12/06/2022, Additional history exists Adult Wellness Visit 12/22/2024 12/22/2023, 12/12/19 23 Depression Monitoring 12/22/2024 12/22/2023 GFR 12/27/2024 06/26/2024, 02/12, 01/24/2024, Additional history exists TSH 01/02/2025 01/02/2024, 11/14, 09/12/2022, Additional history exists DXA Scan 06/13/2025 06/13/2023, 11/2022, 03/16/2015 Diabetic Foot Exam 07/02/2025 07/02/2024, 0 06/05/2023, 06/03/2022, Additional history exists Diabetic Eye Exam 08/28/2025 08/28/2024, , 08/28/2024, Additional history exists CKD HGB USE SMARTSET 18396 10/02/202510/02, 10/02/2024, 09/25/2024, Additional history exists DTap/Tdap Vaccines (3 - Td or Tdap) 11/10/2026 11/10/2016, 03/30/2011 VITAMIN D LEVEL ONCE IN A LIFETIME-USE SMARTSET# 02570 Completed 05/11/2015 RETIRED - COLONOSCOPY-EVERY 5 YRS [...] this encounter Medical Devices Implanted Type Area Robotic Welding Operator Device Identifier Shelf Expiration Date Model / Serial / Lot Port Pwr Mri Isp Profile - [id number] Implanted:Qty: 1 on 07/24/2020 by Akash Castillo MD at OR [facility] Right: Chest CR BARD : PERIPHERAL VASCULAR 04/12/2021 [id number] / / [id number] documented as of this encounter Advance Directives [...] [facility] p Communication [facility] Adult Child Health Care Agent Care Teams Stringing Machine Tender Relationship Specialty Start Date End Date Dhruv Moss MD [address] [place], [place] [address] [address] PCP - General Family Medicine 08/27/21 documented as of this encounter
--- OUTSIDE RECORDS SUMMARY | 2024-10-10 00:24 | External Medical Summary ---
Author Name Unknown Address Unknown Organization K01:LABORATORY [facility] - [address] [facility] [address] Laboratory Report Ordering Provider Test Date Status JEAN GONZALES 10/04/2024 10:07:35 Final Observation Date Value Abnormality Reference (Units ) Status Color of Urine by Auto 10/04/2024 10:07:35 Light Yellow Colorless, Light Yellow, Yellow, Dark Yellow Final Clarity, Urine 10/04/2024 10:07:35 Clear Clear Final Glucose [Mass/volume] in Urine by Automated test strip 10/04/2024 10:07:35 Negative Negative (mg/dL) Final Bilirubin.total [Presence] in Urine by Automated test strip 10/04/2024 10:07:35 Negative Negative Final Ketones [Mass/volume] in Urine by Automated test strip 10/04/2024 10:07:35 Trace Abnormal Negative (mg/dL) Final Specific gravity, Urine 10/04/2024 10:07:35 1.011 1.003-1.030 Final Hemoglobin [Presence] in Urine by Automated test strip 10/04/2024 10:07:35 Small Abnormal Negative Final pH, Urine 10/04/2024 10:07:35 6.5 5.0-7.5 (Units) Final Protein [Mass/volume] in Urine by Automated test strip 10/04/2024 10:07:35 Negative Negative (mg/dL) Final Urobilinogen [Mass/volume] in Urine by Automated test strip 10/04/2024 10:07:35 Normal Normal (mg/dL) Final Nitrite [Presence] in Urine by Automated test strip 10/04/2024 10:07:35 Negative Negative Final Leukocyte esterase [Presence] in Urine by Automated test strip 10/04/2024 10:07:35 Negative Negative Final RBC, Urine 10/04/2024 10:07:35 0-2 0-2 (/HPF) Final WBC, Urine 10/04/2024 10:07:35 0-2 0-2 (/HPF) Final Bacteria [#/area] in Urine sediment by Microscopy high power field 10/04/2024 10:07:35 0-25 0-25 (/HPF) Final Hyaline casts, Urine 10/04/2024 10:07:35 1-4 Abnormal None (/LPF) Final CULTURE, URINE - [facility] 10/04/2024 10:07:35 Final Culture not indicated by uri nalysis results\X09\ Performing Location LABORATORY [facility] - [address] [place] [facility] [address]
--- OUTSIDE RECORDS SUMMARY | 2024-10-10 00:24 | External Medical Summary | Summary of Care ---
Author Name Unknown Organization [facility] [address] [facility] [address] Phone [phone] Care Team Providers Care Hunting Sales Associate Name Role Phone Dhruv Moss MD Primary Care Provide r Reason for Visit * Reason Onset Date Comments [facility]: Maintenance 10/06/2024 Encounter Details Date Type Department Care Team (Late st Contact Info) Description 10/06/2024 8:45 AM EST Scheduled Telephone [facility], [facility] [address] [facility] [place] [address] [facility], Nurse [facility] [address] [facility] [place] [address] Allergies No known active allergiesdocumented as of this encounter (statuses as of 10/06/2024) Medications Diclofenac Sodium 1 % External GelIndications:kne e pain Apply topically to affected area . Apply to bilateral knees Active Prochlorperazine Maleate 10 MG Oral Tablet (Compazine)Indicat ions:H/O allogeneic bone marrow transplant (HCC) Take by mouth 1 Tablet every 6 hours as needed for Nausea. 60 Tablet 3 12/09/19 22 Active TEAM INTERVALTouch Verio Flex System w/Device Kit Use as directed . 12/16/19 22 Active Acetaminophen 500 MG Oral Tablet Take 1 Tablet by mouth every 6 hours as needed. Active Magnesium 100 MG Oral Capsule Take 1 Capsule by mouth in the morning. Active Pen Carter 32G X 4 MM Use as directed. [...] 24 Hour (Imdur)Indications :Coronary artery disease involving [place] coronary artery of [place] heart without angina pectoris,HTN, goal below 140/90 [...] Oral TabletIndications: MDS (myelodysplastic syndrome), high grade ([facility]) Take 1 Tablet by mouth every 8 [...] urrent major depressive disorder, in partial remission ([facility]) TAKE ONE CAPSULE BY MOUTH EVERY DAY [...] eyes and macular edema, unspecified whether long lines operator insulin use (HCC) 2 mg IZ PRN 09/30/2024 09/30/2025 Ac tive ROPivacaine (Naropin) inj 1.5 mgIndications: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 Date of Transplant: 09/01/2021 Conditioning Regimen: Fludarabine / Busulfan 2 with post-transplant Cytoxan ABO/Rh: A Positive CMV status: CMV Positive--- GRID: [id number] / [id number]: [id number] Matched Unrelated 10/24--- DPB1 Match ABO/Rh: A [...] & Plan (04/04/2023 4:21 PM EDT): Platelets [id number] on 03/20 Questionable hematuria Urinary incontinence 09/12/2022 [...] failure. Does not have any evidence of gezeh-jencao-miby disease Assessment & Plan (09/23/2024 10:42 AM [...] Currently in relapse. Hemoglobin yesterday 8.8. Platelets [id number]. - weekly CBC. Transfusion to maintain above [...] I received a call from nurse case investigator in the field reporting that over the [...] that time. Coronary artery disease invo lving [place] coronary artery of [place] heart without angina pectoris 06/12/2017 Overview (06/12/2017): [...] was that I can find were from [id number] Assessment/plan: Dyslipidemia with patient currently taking Lipitor [...] as of this encounter (statuses as of 10/06/2024) Resolved Problems Problem Noted Date Diagnosed Date [...] as of this encounter (statuses as of 10/06/2024) Immunizations Name Administration Dates Next Due COVID-19 mRNA, LNP-s, No Pre serve, 2-Dose Series (Cold Genesys) 02/05/2021,01/08/2021 COVID-19, LNP-s, No Preserve , Ye-sucrose, [...] encounter Miscellaneous Notes * Telephone Encounter - Rachelle Haji RN - 10/06/2024 12:40 PM EST [facility] Telephonic Nurse Follow-Up Call [facility] Subprogram: [facility] Home Follow Up Call Type: 24 hour follow up Acute issue requiring follow-up call: Other: urine, AMS Objective: 10/05/2024 11:06 AM 10/04/2024 9:52 AM 09/23/2024 9:51 AM 08/13/2024 9:54 AM 07/22/2024 10:35 AM VITALS ACROSS ENCOUNTERS BP 110/52 138/62 118/58 118/52 118/60 Pulse 80 80 90 80 Remote Patient Monitoring: NONE Oxygen Needs: NO supplemental oxygen needs identified DME Needs: NO DME needs identified Medications: No medication or dose adjustments made during acute episode Subjective: Condition Status: Symptoms resolved and back to baseline Current Concerns: Patient seen for acute follow up- visit made yesterday 10/04/24. Received blood transfusion 10/03- has been requiring weekly labs/ blood transfusions + hallucinations- confusion- unsteadiness. Had not been taking pills for last 3 days. Concern for UTI- Started Cefdnir yesterday UA negative for infection. Instructed to stop ABT. Spoke to DTR Juanita she reports patient doing better today up and about + drinking and eating WNL Back to baseline. No hallucinations DTR reports patient does have trouble with her eyes so it is hard to tell what she is seeing Pill box fixed yesterday by RNCM DTR does not offer any concerns at this time DTR aware to call [facility] if needed DTR aware of next [facility] RNCM HV Disposition: Issue resolved. All appropriate follow up scheduled. Future Visits Scheduled: Future Appointments-next 60 days Date/Time Provider Specialty Dept Phone 10/09/2024 7:00 AM [facility] [phone] 10/16/2024 7:00 AM [facility] [phone] 10/16/2024 2:00 PM (Arrive by 1:45 PM) Mervat Castro CRNP Hematology Oncology [phone] 2024 7:00 AM [facility] [phone] 10/30/2024 7:00 AM [facility] [phone] 11/04/2024 4:00 PM Marisa Pacheco RN [facility] [phone] 11/05/2024 9:30 AM Fernando Damon, DO Ophthalmology [phone] 11/11/2024 2:00 PM [facility] [phone] 11/15/2024 7:05 AM [facility] [phone] 11/20/2024 7:00 AM [facility] [phone] 11/27/2024 7:00 AM [facility] [phone] 12/04/2024 7:00 AM [facility] [phone] 12/05/2024 9:00 AM Tremaine Morgan PA-C [facility] [phone] 12/11/2024 7:00 AM [facility] [phone] 12/18/2024 7:00 AM [facility] [phone] 12/24/2024 2:30 PM Nurse [facility] [phone] 12/25/2024 7:00 AM [facility] [phone] 01/01/2025 7:00 AM [facility] [phone] 01/08/2025 7:00 AM [facility] [phone] 01/13/2025 11:40 AM (Arrive by 11:25 AM) Dhruv Moss MD Family Medicine [phone] 01/15/2025 7:00 AM [facility] [phone] 01/22/2025 7:00 AM [facility] [phone] 01/29/2025 7:00 AM [facility] [phone] 02/05/2025 7:00 AM [facility] [phone] 02/12/2025 7:00 AM [facility] [phone] 02/19/2025 7:00 AM [facility] [phone] 02/26/2025 7:00 AM [facility] [phone] 03/05/2025 7:00 AM [facility] [phone] 03/12/2025 7:00 AM [facility] [phone] 03/19/2025 7:00 AM [facility] [phone] 03/26/2025 7:00 AM [facility] [phone] 04/02/2025 7:00 AM [facility] [phone] 04/09/2025 7:00 AM [facility] [phone] 04/16/2025 7:00 AM [facility] [phone] 04/23/2025 7:00 AM [facility] [phone] 04/30/2025 7:00 AM [facility] [phone] 05/07/2025 7:00 AM [facility] [phone] 05/14/2025 7:00 AM [facility] [phone] 05/21/2025 7:00 AM [facility] [phone] 07/21/2025 1:30 PM (Arrive by 1:15 PM) [facility] Radiology [phone] 08/04/2025 1:20 PM (Arrive by 1:05 PM) Dhruv Moss MD Family Medicine [phone] Rachelle Haji, RN documented in this encounter Plan of Treatment Upcoming Encounters Date Type Department Care Team (Late st Contact Info) Description 10/09/2024 7:00 AM EST Laboratory [facility] Phlebotomy [facility] [address] [place] [address] [facility] [address] [place] [address] 10/16/2024 7:00 AM EST [facility] [address] [place] [address] [facility] [address] [employer] [place] [address] 10/16/2024 2:00 PM EST Office Visit Hematology/Oncology [facility] [place] [address] [facility] [place] [phone] Mervat Castro, MARTA [address] [place], [place] [address] [address] 2024 7:00 AM EST Laboratory [facility] Phlebot[facility] [address] [place] [address] [facility] [address] [place] [address] 10/30/2024 7:00 AM EST Laboratory [facility] Phlebot[facility] [address] [employer] [employer] [place] [address] [facility] [address] [place] [address] 11/04/2024 4:00 PM EST [facility] Visit [facility], [facility] [address] [place] [address] Marisa Pacheco, RN [address] [place] [address] 11/05/2024 9:30 AM EST Office Visit Ophthalmology, [facility] [address] [place] [address] Fernando Damon DO [address] [place] [address] 11/11/2024 2:00 PM EST Office Visit Pharmacy, [address] [place] [address] [place] [address] 11/15/2024 7:05 AM EST Laboratory [facility] Ph[facility] [address] [facility] [place], [place] [address] [facility] [address] [employer] [place], [place] [address] 11/20/2024 7:00 AM EST Laboratory [facility] Phlebotomy [facility] [address] [place] [address] [facility] [address] [employer] [place], [place] [address] 11/27/2024 7:00 AM EST Laboratory Lab Mobile Phlebotomy [facility] [address] [facility] [place], [place] [address] [facility] [address] [employer] [place], [place] [address] 12/04/2024 7:00 AM EST Laboratory [facility] Phlebotomy [facility] [address] [place] [address] [facility] [address] [place] [address] [address] 12/05/2024 9:00 AM EST Home Visit [facility], [place] [address] [place] [address] Tremaine Morgan PA-C [address] [place] [address] 12/11/2024 7:00 AM EST Laboratory [facility] Phlebotomy [facility] [address] [place] [address] [address] [facility] [address] [place] [address] 12/18/2024 7:00 AM EST Laboratory [facility] [address] [place] [address] [address] [facility] [address] [place] [address] 12/24/2024 2:30 PM EST Nurse Only Ancillary [address] [place] [address] [place], Nurse [address] [place] [address] 12/25/2024 7:00 AM EST [facility] [address] [place] [address] [address] [facility] [address] [place] [address] 01/01/2025 7:00 AM EST Laboratory [facility] Phlebot[facility] [address] [place] [address] [address] [facility] [address] [place] [address] [address] 01/08/2025 7:00 AM EST Laboratory [facility] [address] [place] [address] [address] [facility] [address] [place] [address] [address] 01/13/2025 11:40 AM EST Office Visit Family Medicine [address] [place] [phone] Dhruv Moss MD [address] [place] [address] [place] [address] 01/15/2025 7:00 AM EST [facility] Ph[facility] [address] [place], [place] [address] [facility] [address] [employer], [place] [address] 01/22/2025 7:00 AM EDT Laboratory [facility] Ph[facility] [address] [place], [place] [address] [facility] [address] [employer], [place] [address] 01/29/2025 7:00 AM EDT Laboratory [facility] Phle[facility] [address] [place] [address] [facility] [address] [place] [address] 02/05/2025 7:00 AM EDT Laboratory [facility] Ph[facility] [address] [place], [place] [address] [facility] [address] [place] [address] 02/12/2025 7:00 AM EDT Laboratory [facility] Ph[facility] [address] [place] [address] [facility] [address] [place] [address] 02/19/2025 7:00 AM EDT Laboratory [facility] Phlebotomy [facility] [address] [employer], [place] [address] [facility] [address] [place] [address] 02/26/2025 7:00 AM EDT Laboratory [facility] Phlebotomy [facility] [address] [place] [address] [facility] [address] [place] [address] 03/05/2025 7:00 AM EDT Laboratory [facility] Ph[facility] [address] [place] [address] [facility] [address] [place] [address] 03/12/2025 7:00 AM EDT Laboratory [facility] [address] [place] [address] [facility] [address] [place] [address] 03/19/2025 7:00 AM EDT Laboratory [facility] [address] [place] [address] [facility] [address] [place] [address] 03/26/2025 7:00 AM EDT Laboratory [facility] [address] [place] [address] [facility] [address] [place] [address] 04/02/2025 7:00 AM EDT Laboratory [facility] Phle[facility] [address] [place] [address] [facility] [address] [place] [address] 04/09/2025 7:00 AM EDT Laboratory [facility] [address] [place] [address] [facility] [address] [place] [address] 04/16/2025 7:00 AM EDT Laboratory [facility] Phle[facility] [address] [place] [address] [facility] [address] [place] [address] 04/23/2025 7:00 AM EDT Laboratory Lab [facility] Phle[facility] [address] [place] [address] [facility] [address] [place] [address] 04/30/2025 7:00 AM EDT Laboratory [facility] Phle[facility]omy [facility] [address] [place] [address] [facility] [address] [place] [address] 05/07/2025 7:00 AM EDT Laboratory [facility] Ph[facility] [address] [place] [address] [facility] [address] [place] [address] 05/14/2025 7:00 AM EDT Laboratory [facility] Phle[facility] [address] [place] [address] [facility] [address] [place] [address] 05/21/2025 7:00 AM EDT Laboratory [facility] Phle[facility] [address] [place] [address] [facility] [address] [place] [address] 07/21/2025 1:30 PM EDT Imaging Radiology [address] [place] [address] 08/04/2025 1:20 PM EDT Office Visit Family Medicine [address] [place] [phone] Dhruv Moss MD [address] [place] [address] [place] [address] Health Maintenance Due Date Last Done Comments *BISPHONATE OR OTHER ACCEPTABLE MEDICATION NEEDED FOR OSTEOPOROSIS (REFER TO SMARTSET #1146) 11/06/2023 Colonoscopy 05/06/2024 05/06/2019, 05/06/2019 CKD PHOS USE SMARTSET 60108 06/07/2024/04/2023, 05/31/2023, 05/08/2023, Additional history exists COVID-19 [...] DXA Scan 06/13/2025 06/13/2023, 080 11/2022, 03/16/2015 Diabetic Foot Exam 07/02/2025 07/02/2024, 0 06/05/2023, 06/03/2022, Additional history exists Diabetic Eye Exam 08/28/2025 08/28/2024, , 08/28/2024, Additional history exists CKD HGB USE SMARTSET 42685 10/02/202510/02, 10/02/2024, 09/25/2024, Additional history exists DTap/Tdap Vaccines (3 - Td or Tdap) 11/10/2026 11/10/2016, 03/30/2011 VITAMIN D LEVEL ONCE IN A LIFETIME-USE SMARTSET# 61677 Completed 05/11/2015 RETIRED - COLONOSCOPY-EVERY 5 YRS [...] this encounter Medical Devices Implanted Type Area Road Repairer Device Identifier Shelf Expiration Date Model / Serial / Lot Port Pwr Mri Isp Profile - [id number] Implanted:Qty: 1 on 07/24/2020 by Akash Castillo MD at OR [facility] Right: Chest CR BARD : PERIPHERAL VASCULAR 04/12/2021 [id number] / / [id number] documented as of this encounter Advance Directives [...] Healthcare Agent [facility] Communication Juanita Silva Adult Child Health Care Agent Care Teams Hunting Sales Associate Relationship Specialty Start Date End Date Dhruv Moss MD [address] [place] [address] [id number] PCP - General Family Medicine 08/27/21 documented as of this encounter
--- OUTSIDE RECORDS SUMMARY | 2024-10-10 00:24 | External Medical Summary | Summary of Care ---
Author Name Unknown Organization [facility] Address [address] [facility] [place] [address] Phone [phone] Care Team Providers Care Automation Consultant Name Role Phone Dhruv Moss MD Primary Care Provide r Encounter Details Date Type Department Care Team (Late st Contact Info) Description 10/05/2024 11:30 AM EST Home Visit [facility]ing at Home, [facility] [address] [facility] [place] [address] [facility], Nurse [facility] 132 [facility] [place] [address] Allergies No known active allergiesdocumented as of [...] Nausea. 60 Tablet 3 12/09/19 22 Active EstorianTouch Verio Flex System w/Device Kit Use as directed . 12/16/19 22 Active Acetaminophen 500 MG Oral Tablet Take 1 Tablet by mouth every 6 hours as needed. Active Magnesium 100 MG Oral Capsule Take 1 Capsule by mouth in the morning. Active Pen [place] 32G X 4 MM Use as directed. 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 Does not have any evidence of ymyrj-[id number]-[id number] disease Assessment & Plan (09/23/2024 10:42 AM [...] Currently in relapse. Hemoglobin yesterday 8.8. Platelets 91742. - weekly CBC. Transfusion to maintain above [...] I received a call from nurse case technician in the field reporting that over the [...] that time. Coronary artery disease invo lving [place] coronary artery of [place] heart without angina pectoris 06/12/2017 Overview (06/12/2017): [...] was that I can find were from [id number] Assessment/plan: Dyslipidemia with patient currently taking Lipitor [...] 10 days follow-up culture Candidiasis, esophageal 03/10/2022 0712/2021 Assessment & Plan (03/10/2022 3:50 PM EDT): [...] mRNA, LNP-s, No Pre serve, 2-Dose Series (BioPetroClean) 02/05/2021,01/08/2021 COVID-19, LNP-s, No Preserve , Ye-sucrose, [...] Sign Reading Time Taken Comments Blood Pressure 110/52 10/05/2024 11:06 AM EST Pulse 80 10/05/2024 11:06 AM EST Temperature 36.3 C (97.3 F) 10/05/2024 11:[address] Respiratory Rate 18 10/05/2024 11:06 AM EST Oxygen Saturation 94% 10/05/2024 11:06 AM EST Inhaled Oxygen Concentration - - [...] Progress Notes * Marisa Pacheco RN - 10/05/2024 10:45 AM EST Current Concerns: Patient seen for acute follow up- visit made yesterday 10/04/24. Received blood transfusion 10/03- has been requiring weekly labs/ blood transfusions + hallucinations- confusion- unsteadiness. Had not been taking pills for last 3 days. Concern for UTI- Started Cefdnir yesterday UA negative for infection. Instructed to stop ABT. Grandson and spent the night with patient. Grandson's filled pill box last evening- discovered that patient did not have effexor in pill box. Patient reports she has been taking her effexor even if it is not in her pill box. She will come out in the evening and grab one out of bottle. She knows how she feels if she misses effexor. Reports not feeling much different than she did yesterday. Not resting well. States she see things at night- causes her to sit up and concentrate to see if what she was seeing was real or not. Patient more alert today not at baseline- wearing sunglasses d/t having injections in eyes early inthe week. Sensitive to light. Reports discomfort. APAP encouraged. Stayed in dining room for duration of visit. Reports fatigue Blood sugar 177- freestyle jojo Appetite fair to poor- made patient toast during visit- ate half a piece of toast. Instructed to hold off on insulin this am. Steadier on feet today in comparison to yesterday. VS wnl Lungs clear bilaterally No sob noted No LE edema noted Voiding without difficulty Bowels wnl Follow up phone call tomorrow. Physical Exam: Physical Exam Constitutional: Appearance: Normal appearance. Cardiovascular: Rate and Rhythm: Normal rate. Pulses: Normal pulses. Pulmonary: Effort: Pulmonary effort [...] Systems: Review of Systems Constitutional: Positive for fatigue. HENT: Negative. Eyes: Positive for pain. Respiratory: Positive for shortness of breath. Cardiovascular: Negative. Gastrointestinal: Negative. Genitourinary: Negative. Musculoskeletal: Negative. Skin: Negative. Neurological: Positive for weakness. Hematological: Negative. Psychiatric/Behavioral: Negative. Care Plan Goal Progress: Patient will remain free of falls. (Progressing) Start: 08/13/24 Expected End: 11/11/24 Patient will remain free from infection. (Progressing) Start: 08/13/24 Expected End: 11/11/24 Orders Placed: No orders of the defined types were placed in this encounter. Medications Given: Care Gaps: Care Gaps Care gaps closed this contact: Education (10/05/24 1324) Type of education: Clinical/disease (10/05/24 0155) documented in this encounter Plan of Treatment Upcoming Encounters Date Type Department Care Team (Late st Contact Info) Description 10/06/2024 8:45 AM EST Scheduled Telephone [facility], [facility] 132 [facility] [place] [address] [facility], Nurse [address] [place] [address] 10/09/2024 7:00 AM EST Laboratory [facility] [address] [facility] [place], [place] [address] [facility] [address] [facility] [place], [place] [address] 10/16/2024 7:00 AM EST Laboratory [facility] [address] [facility] [place], [place] [address] [facility] [address] [facility] [place], [place] [address] 10/16/2024 2:00 PM EST Office Visit Hematology/Oncology [facility] [address] [facility], [place] [phone] Mervat Castro CRNP [address] [place], [place] [address] [address] 2024 7:00 AM EST Laboratory [facility] [address] [facility] [place], [place] [address] [facility] [address] [place] [address] 10/30/2024 7:00 AM EST Laboratory [facility] [address] [facility] [place], [place] [address] [facility] [address] [facility] [place] [address] 11/04/2024 4:00 PM EST [facility] [address] [place] [address] Marisa Pacheco, TANYA [address] [place] [address] 11/05/2024 9:30 AM EST Office Visit Ophthalmology, [facility] [address] [place] [address] Fernando Damon, DO [address] [address] 11/11/2024 2:00 PM EST Office Visit Pharmacy, [address] [place] [address] [place] [address] 11/15/2024 7:05 AM EST Laboratory [facility] [address] [facility] [place], [place] [address] [facility] [address] [facility] [place] [address] 11/20/2024 7:00 AM EST Laboratory [facility] [address] [facility] [place] [address] [facility] [address] [facility] [facility] [place], [place] [address] 11/27/2024 7:00 AM EST Laboratory [facility] [address] [facility] [place], [place] [address] [facility] [address] [facility] [facility] [place] [address] 12/04/2024 7:00 AM EST Laboratory [facility] [address] [facility] [place], [place] [address] [facility] [address] [facility] [facility] [place], [place] [address] 12/05/2024 9:00 AM EST Home Visit [facility], [facility] 132 [place] [address] Tremaine Morgan PA-C [address] [address] 12/11/2024 7:00 AM EST Laboratory [facility] [address] [facility] [place] [address] [facility] [address] [facility] [address] [place], [place] [address] 12/18/2024 7:00 AM EST Laboratory [facility] [address] [facility] [facility] [place] [address] [facility] [address] [employer] [place] [address] 12/24/2024 2:30 PM EST Nurse Only Ancillary [address] [place] [address] [place], Nurse Annual [address] [place] [address] 12/25/2024 7:00 AM EST Laboratory [facility] [address] [facility] [address] [place], [place] [address] [facility] [address] [employer] [facility] [place] [address] 01/01/2025 7:00 AM EST Laboratory [facility] [address] [facility] [address] [place], [place] [address] [facility] [address] [facility] [place] [address] 01/08/2025 7:00 AM EST Laboratory Lab [facility] [address] [facility] [place] [address] [facility], [facility] [address] [employer] [place] [address] 01/13/2025 11:40 AM EST Office Visit Family Medicine [address] [place] [phone] Dhruv Moss MD [address] [place] [address] [place] [address] 01/15/2025 7:00 AM EST Laboratory [facility] [address] [employer] [facility] [place] [address] [facility] [address] [employer] [place] [address] 01/22/2025 7:00 AM EDT Laboratory Lab [facility]lebot[facility] [address] [place] [address] [facility], [facility] [address] [place] [address] 01/29/2025 7:00 AM EDT Laboratory Lab [facility] Phlebotomy [facility] [address] [place] [address] [facility], [facility] [address] [place] [address] 02/05/2025 7:00 AM EDT Laboratory Lab [facility] Phlebotomy [facility] [address] [place] [address] [facility], [facility] [address] [place] [address] 02/12/2025 7:00 AM EDT Laboratory Lab [facility] Phlebot[facility] [address] [place] [address] [facility], [facility] [address] [place] [address] 02/19/2025 7:00 AM EDT Laboratory Lab [facility] [address] [place] [address] [facility] [address] [place] [address] 02/26/2025 7:00 AM EDT Laboratory Lab [facility] [address] [place] [address] [facility], [facility] [address] [place] [address] 03/05/2025 7:00 AM EDT Laboratory Lab [facility] Phlebot[facility] [address] [place] [address] [facility], [facility] [address] [place] [address] 03/12/2025 7:00 AM EDT Laboratory Lab [facility] Ph[facility] [address] [place] [address] [facility], [facility] [address] [place] [address] 03/19/2025 7:00 AM EDT Laboratory Lab [facility] Phlebotomy [facility] [address] [place] [address] [facility], [facility] [address] [place] [address] 03/26/2025 7:00 AM EDT Laboratory Lab [facility] Phlebot[facility] [address] [place] [address] [facility] [address] [place] [address] 04/02/2025 7:00 AM EDT Laboratory Lab [facility] Phlebotomy [facility] [address] [facility] [place] [address] [facility], [facility] [address] [place] [address] 04/09/2025 7:00 AM EDT Laboratory Lab Mobile Phlebotomy [facility] [address] [facility] [place] [address] [facility], [facility] [address] [place] [address] 04/16/2025 7:00 AM EDT Laboratory Lab [facility] Phlebotomy [facility] [address] [place] [address] [facility] [address] [place] [address] 04/23/2025 7:00 AM EDT Laboratory Lab [facility] Phlebotomy [facility] [address] [facility] [place] [address] [facility], [facility] [address] [place] [address] 04/30/2025 7:00 AM EDT Laboratory Lab [facility] Phlebotomy [facility] [address] [place] [address] [facility], [facility] [address] [employer] [place] [address] 05/07/2025 7:00 AM EDT Laboratory Lab [facility] Phlebotomy [facility] [address] [facility] [place] [address] [facility], [facility] [address] [place] [address] 05/14/2025 7:00 AM EDT Laboratory Lab [facility] Ph[facility]bot[facility] [address] [employer] [place] [address] [facility], [facility] [address] [facility] [place] [address] 05/21/2025 7:00 AM EDT Laboratory Lab [facility] Phlebotomy [facility] [address] [employer] [facility] [place], [place] [address] [facility] [address] [facility] [place] [address] 07/21/2025 1:30 PM EDT Imaging Radiology [address] [place] [address] 08/04/2025 1:20 PM EDT Office Visit Family Medicine [address] [place] [phone] Dhruv Moss MD [address] [place] [address] [place] [address] Health Maintenance Due Date Last Done Comments *BISPHONATE OR OTHER ACCEPTABLE MEDICATION NEEDED FOR OSTEOPOROSIS (REFER TO SMARTSET #1146) 11/06/2023 Colonoscopy 05/06/2024 05/06/2019, 05/06/2019 CKD PHOS USE SMARTSET 71003 06/07/202405/14, 05/31/2023, 05/08/2023, Additional history exists COVID-19 Vaccine ( season) 2024 12/06/2021, 02/05/2021, 01/08/2021 Influenza Vaccine (FLU shot) (#1) 2024 07/17/2020, 07/13/2020, 07/25/2019, Additional history exists Albumin/Creatinine Ratio 09/15/2024 023, 03/08/2022, 10/29/2019, Additional history exists HbA1c 11/22/2024 05/22/2024, 06/2024, 12/06/2022, Additional history exists Adult Wellness Visit 12/22/2024 12/22/2023, 12/12/19 23 Depression Monitoring 12/22/2024 12/22/2023 GFR 12/27/2024 06/26/2024, 02/12, 01/24/2024, Additional history exists TSH 01/02/2025 01/02/2024, 11/14, 09/12/2022, Additional history exists DXA Scan 06/13/2025 06/13/2023, 11/2022, 03/16/2015 Diabetic Foot Exam 07/02/2025 07/02/2024, 0 06/05/2023, 06/03/2022, Additional history exists Diabetic Eye Exam 08/28/2025 08/28/2024, , 08/28/2024, Additional history exists CKD HGB USE SMARTSET 02750 10/02/202510/02, 10/02/2024, 09/25/2024, Additional history exists DTap/Tdap Vaccines (3 - Td or Tdap) 11/10/2026 11/10/2016, 03/30/2011 VITAMIN D LEVEL ONCE IN A LIFETIME-USE SMARTSET# 40928 Completed 05/11/2015 RETIRED - COLONOSCOPY-EVERY 5 YRS [...] this encounter Medical Devices Implanted Type Area Brick Burner Head Device Identifier Shelf Expiration Date Model / Serial / Lot Port Pwr Mri Isp Profile - [id number] Implanted:Qty: 1 on 07/24/2020 by Akash Castillo MD at OR [facility] Right: Chest CR BARD : PERIPHERAL VASCULAR 04/12/2021 [id number] / / [id number] documented as of this encounter Advance Directives [...] Agents on File Name Relationship [facility] Juanita Dalton Adult Child Health Care Agent Care Teams Automation Consultant Relationship Specialty Start Date End Date Dhruv Moss MD [address] [place] [address] [place] [id number] PCP - General Family Medicine 08/27/21 documented as of this encounter
--- OUTSIDE RECORDS SUMMARY | 2024-10-10 00:24 | External Medical Summary | Summary of Care ---
Author Name Unknown Organization [facility] [address] [address] Phone [phone] Care Team Providers Care Linecasting Machine Keyboard Operator Name Role Phone Dhruv Moss MD Primary Care Provide r Reason for Visit * Reason Onset Date Comments Test Results Lab 10/03/2024 Encounter Details Date Type Department Care Team (Late st Contact Info) Description 10/03/2024 Telephone Hematology/Oncology [facility] [address] [place] [address] Jitendra Aguero MD [address] [facility] [address] Test Results Lab Allergies No known active allergiesdocumented as of this encounter (statuses as of 10/03/2024) Medications Diclofenac Sodium 1 % External GelIndications:kne e pain Apply topically to affected area . Apply to bilateral knees Active Prochlorperazine Maleate 10 MG Oral Tablet (Compazine)Indicat ions:H/O allogeneic bone marrow transplant (HCC) Take by mouth 1 Tablet every 6 hours as needed for Nausea. 60 Tablet 3 12/09/19 22 Active NitroSellToFuzzio Flex System w/Device Kit Use as directed . 12/16/19 22 Active Acetaminophen 500 MG Oral Tablet Take 1 Tablet by mouth every 6 hours as needed. Active Magnesium 100 MG Oral Capsule Take 1 Capsule by mouth in the morning. Active Pen [place] 32G X 4 MM Use as directed. 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, unspecified whether chcf insulin use (HCC) 1.25 mg IZ PRN 07/17/2024 07/17/2025 Ac tive Aflibercept (Eylea) intravitreal inj 2 mgIndications: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 Date of Transplant: 09/01/2021 Conditioning Regimen: Fludarabine / Busulfan 2 with post-transplant Cytoxan ABO/Rh: A Positive CMV status: CMV Positive--- GRID: [id number] / DID: [id number] Matched Unrelated 10/24--- DPB1 Match ABO/Rh: A [...] & Plan (04/04/2023 4:21 PM EDT): Platelets 76429 on 03/20 Questionable hematuria Urinary incontinence 09/12/2022 [...] failure. Does not have any evidence of bxivs-vjlsji-vvyv disease Assessment & Plan (09/23/2024 10:42 AM [...] Currently in relapse. Hemoglobin yesterday 8.8. Platelets 55123. - weekly CBC. Transfusion to maintain above [...] EDT): I received a call from nurse renal case manager in the field reporting that [...] that time. Coronary artery disease invo lving mentasta coronary artery of mentasta heart without angina pectoris 06/12/2017 Overview (06/12/2017): [...] was that I can find were from [id number] Assessment/plan: Dyslipidemia with patient currently taking Lipitor [...] as of this encounter (statuses as of 10/03/2024) Resolved Problems Problem Noted Date Diagnosed Date [...] as of this encounter (statuses as of 10/03/2024) Immunizations Name Administration Dates Next Due COVID-19 mRNA, LNP-s, No Pre serve, 2-Dose Series (Socialcam) 02/05/2021,01/08/2021 COVID-19, LNP-s, No Preserve , Ye-sucrose, [...] encounter Miscellaneous Notes * Telephone Encounter - Maknezie Barth LPN - 10/03/2024 7:06 AM EST Notified patients DaughterJuanita of patients lab result message below. She verbalized understanding. Patient to receive 1 unit prbc and 1 unit of platelets. Called [facility] blood bank. Spoke with Kirsten. Spoke with Dona in [facility]. Called [facility] central scheduling. Patient scheduled for today at 12:00 pm. Patient's daughter verbalized understanding of appt time. Faxed order to [facility]/ blood bank. * Telephone Encounter - Makenzie Barth LPN - 10/03/2024 6:59 AM EST ----- Message from Jitendra Aguero MD sent at 10/03/2024 6:46 AM EST ----- Blood workup done on 10/02/2024 - WBC 21,900, H&H of 7.3/23.5, platelet count of 3000 I would like to transfuse one unit of PRBC and one bag of platelet at [facility]. documented in this encounter Plan of Treatment Upcoming Encounters Date Type Department Care Team (Late st Contact Info) Description 10/09/2024 7:00 AM EST Laboratory Lab [facility] [address] [place] [address] [facility] [address] [place] [address] 10/16/2024 7:00 AM EST Laboratory Lab [facility] [address] [place] [address] [facility] [address] [place] [address] 10/16/2024 2:00 PM EST Office Visit Hematology/Oncology [place] [place] [address] [facility] [place], [place] [phone] Mervat Castro, MARTA [address] [facility] [place] [address] 2024 7:00 AM EST Laboratory Lab [facility] [address] [facility] [place] [address] [facility] [address] [place] [address] 10/30/2024 7:00 AM EST Laboratory Lab [facility] [address] [place] [address] [facility] [address] [facility] [place] [address] 11/04/2024 4:00 PM EST Home Visit [facility] [address] [facility] [place] [address] Marisa Pacheco, TANYA [address] [place] [address] 11/05/2024 9:30 AM EST Office Visit Ophthalmology, [facility] [address] [place] [address] Fernando Damon, DO [address] [place] [address] 11/11/2024 2:00 PM EST Office Visit Pharmacy, [address] [place] [address] [place] [address] 11/15/2024 7:05 AM EST Laboratory Lab [facility] [address] [place] [address] [facility] [address] [place] [address] 11/20/2024 7:00 AM EST Laboratory Lab [facility] [address] [facility] [address] [place] [address] [facility] [address] [facility] [address] [place] [address] 11/27/2024 7:00 AM EST Laboratory Lab [facility]bot[facility] [address] [facility] [address] [place] [address] [facility] [address] [facility] [place] [address] 12/04/2024 7:00 AM EST Laboratory Lab [facility] [address] [facility] [place] [address] [facility] [address] [facility] [address] [place] [address] 12/05/2024 9:00 AM EST [facility] [address] [place] [address] Tremaine Morgan PA-C [address] [place] [address] 12/11/2024 7:00 AM EST Laboratory Lab [facility] [address] [place] [address] [address] [facility] [address] [facility] [address] [place], [place] [address] 12/18/2024 7:00 AM EST Laboratory Lab [facility] [address] [facility] [address] [place] [address] [facility] [address] [facility] [address] [place], [place] [address] 12/24/2024 2:30 PM EST Nurse Only Ancillary [address] [place] [address] [place], Nurse [address] [place] [address] 12/25/2024 7:00 AM EST Laboratory Lab [facility] [address] [place], [place] [address] [facility] [address] [place] [address] 01/01/2025 7:00 AM EST Laboratory Lab [facility] [address] [place], [place] [address] [facility] [address] [place] [address] 01/08/2025 7:00 AM EST Laboratory Lab [facility] [address] [place] [address] [facility] [address] [place] [address] 01/13/2025 11:40 AM EST Office Visit Family Medicine [address] [phone] Dhruv Moss MD [address] [place] [address], [place] [address] 01/15/2025 7:00 AM EST Laboratory Lab [facility] [address] [place], [place] [address] [facility] [address] [employer], [place] [address] 01/22/2025 7:00 AM EDT Laboratory Lab [facility] [address] [place] [address] [facility] [address] [place] [address] 01/29/2025 7:00 AM EDT Laboratory Lab [facility] [address] [place] [address] [facility] [address] [place], [place] [address] 02/05/2025 7:00 AM EDT Laboratory Lab [facility] [address] [place] [address] [facility] [address] [place] [address] 02/12/2025 7:00 AM EDT Laboratory Lab [facility] [address] [place] [address] [facility] [address] [place] [address] 02/19/2025 7:00 AM EDT Laboratory Lab [facility] [address] [place] [address] [facility] [address] [place] [address] 02/26/2025 7:00 AM EDT Laboratory Lab [facility] [address] [place] [address] [facility] [address] [place] [address] 03/05/2025 7:00 AM EDT Laboratory Lab [facility] [address] [place] [address] [facility] [address] [place] [address] 03/12/2025 7:00 AM EDT Laboratory Lab [facility] [address] [place] [address] [facility] [address] [place] [address] 03/19/2025 7:00 AM EDT Laboratory Lab [facility] [address] [place] [address] [facility] [address] [facility] [place] [address] 03/26/2025 7:00 AM EDT Laboratory Lab [facility] [address] [place] [address] [facility] [address] [facility] [place] [address] 04/02/2025 7:00 AM EDT Laboratory Lab [facility] Ph[facility] [address] [facility] [place] [address] [facility] [address] [facility] [place] [address] 04/09/2025 7:00 AM EDT Laboratory Lab [facility] [address] [facility] [place] [address] [facility] [address] [facility] [place] [address] 04/16/2025 7:00 AM EDT Laboratory Lab [facility] [address] [facility] [place] [address] [facility] [address] [facility] [place] [address] 04/23/2025 7:00 AM EDT Laboratory Lab [facility] [address] [facility] [place] [address] [facility] [address] [facility] [place] [address] 04/30/2025 7:00 AM EDT Laboratory Lab [facility] [address] [facility] [place] [address] [facility] [address] [place] [address] 05/07/2025 7:00 AM EDT Laboratory Lab [facility] [address] [facility] [place] [address] [facility] [address] [facility] [place] [address] 05/14/2025 7:00 AM EDT Laboratory Lab [facility] [address] [facility] [place] [address] [facility] [address] [place] [address] 05/21/2025 7:00 AM EDT Laboratory Lab [facility] [address] [facility] [place] [address] [facility] [address] [place] [address] 07/21/2025 1:30 PM EDT Imaging Radiology [address] [place] [address] 08/04/2025 1:20 PM EDT Office Visit Family Medicine [address] [place] [phone] Dhruv Moss MD [address] [place] [address] [place] [address] Health Maintenance Due Date Last Done Comments *BISPHONATE OR OTHER ACCEPTABLE MEDICATION NEEDED FOR OSTEOPOROSIS (REFER TO SMARTSET #1146) 11/06/2023 Colonoscopy 05/06/2024 05/06/2019, 05/06/2019 CKD PHOS USE SMARTSET 09175 06/07/202405/14, 05/31/2023, 05/08/2023, Additional history exists COVID-19 [...] Additional history exists CKD HGB USE SMARTSET 00255 10/02/202510/02, 10/02/2024, 09/25/2024, Additional history exists DTap/Tdap Vaccines (3 - Td or Tdap) 11/10/2026 11/10/2016, 03/30/2011 VITAMIN D LEVEL ONCE IN A LIFETIME-USE SMARTSET# 96344 Completed 05/11/2015 RETIRED - COLONOSCOPY-EVERY 5 YRS [...] this encounter Medical Devices Implanted Type Area Tool Grinding Machine Operator Device Identifier Shelf Expiration Date Model / Serial / Lot Port Pwr Mri Isp Profile - [id number] Implanted:Qty: 1 on 07/24/2020 by Akash Castillo MD at OR [facility] Right: Chest CR BARD : PERIPHERAL VASCULAR 04/12/2021 [id number] / / [id number] documented as of this encounter Advance Directives [...] Agents on File Name Relationship Healthcare Agent [facility] Communication Juanita Silva Adult Child Health Care Agent Care Teams Linecasting Machine Keyboard Operator Relationship Specialty Start Date End Date Dhruv Moss MD [address] [place] [id number] PCP - General Family Medicine 08/27/21 documented as of this encounter
--- OUTSIDE RECORDS SUMMARY | 2024-10-10 00:25 | External Medical Summary | Summary of Care ---
Author Name Unknown Organization [facility] Address [address] [facility] [place] [address] Phone [phone] Care Team Providers Care Manager Visual Name Role Phone Dhruv Moss MD Primary Care Provide r Reason for Visit * Reason Onset Date Comments Precert Pending 09/30/2024 18 KG pending, p romptpa, [phone] Encounter Details Date Type Department Care Team (Late st Contact Info) Description 09/30/2024 Telephone Ophthalmology, [facility] [address] [place] [address] Fernando Damon, [facility] [place] [address] Precert Pending (18 KG pending, promptpa, ... Allergies No known active allergiesdocumented as of this encounter (statuses as of 09/30/2024) Medications Diclofenac Sodium 1 % External GelIndications:kne e pain Apply topically to affected area . Apply to bilateral knees Active Prochlorperazine Maleate 10 MG Oral Tablet (Compazine)Indicat ions:H/O allogeneic bone marrow transplant (HCC) Take by mouth 1 Tablet every 6 hours as needed for Nausea. 60 Tablet 3 12/09/19 22 Active apstrata VerSportsCrunch Flex System w/Device Kit Use as directed . 12/16/19 22 Active Acetaminophen 500 MG Oral Tablet Take 1 Tablet by mouth every 6 hours as needed. Active Magnesium 100 MG Oral Capsule Take 1 Capsule by mouth in the morning. Active Pen [place] 32G X 4 MM Use as directed. Use to inject insulin up to 4 times daily. 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) 1.25 mg IZ PRN 07/17/2024 07/17/2025 Ac tive Aflibercept (Eylea) intravitreal inj 2 mgIndications: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 Date of Transplant: 09/01/2021 Conditioning Regimen: Fludarabine / Busulfan 2 with post-transplant Cytoxan ABO/Rh: A Positive CMV status: CMV Positive--- GRID: [id number] / DID: [id number] Matched Unrelated 10/24--- DPB1 Match ABO/Rh: A [...] & Plan (04/04/2023 4:21 PM EDT): Platelets 20394 on 03/20 Questionable hematuria Urinary incontinence 09/12/2022 [...] failure. Does not have any evidence of [id number] disease Assessment & Plan (09/23/2024 10:42 AM [...] Currently in relapse. Hemoglobin yesterday 8.8. Platelets 56433. - weekly CBC. Transfusion to maintain above [...] EDT): I received a call from nurse window caser in the field reporting that over the [...] that time. Coronary artery disease invo lving shungnak coronary artery of sh[place] heart without angina pectoris 06/12/2017 Overview (06/12/2017): [...] was that I can find were from [id number] Assessment/plan: Dyslipidemia with patient currently taking Lipitor [...] as of this encounter (statuses as of 09/30/2024) Resolved Problems Problem Noted Date Diagnosed Date [...] as of this encounter (statuses as of 09/30/2024) Immunizations Name Administration Dates Next Due COVID-19 mRNA, LNP-s, No Pre serve, 2-Dose Series (Lob) 02/05/2021,01/08/2021 COVID-19, LNP-s, No Preserve , Ye-sucrose, [...] sol Taylor RN documented in this encounter Plan of Treatment Upcoming Encounters Date Type Department Care Team (Late st Contact Info) Description 10/02/2024 7:00 AM EST Laboratory Lab [facility] [address] [place] [address] [facility] [address] [place] [address] 10/08/2024 10:00 AM EST Home Visit [facility] [address] [facility] [place] [address] Marisa Pacheco RN [address] [facility] [place] [address] 10/09/2024 7:00 AM EST Laboratory Lab [facility] Phlebot[facility] [address] [place] [address] [facility] [address] [facility] [place] [address] 10/16/2024 7:00 AM EST Laboratory Lab [facility] Phlebotomy [facility] [address] [place] [address] [facility] [address] [facility] [place] [address] 10/16/2024 1:45 PM EST Office Visit Hematology/Oncology Joanie Roberts [place] [address] [place] [id number] Jitendra Aguero MD [address] [place] [address] 2024 7:00 AM EST Laboratory Lab [facility]lebot[facility] [address] [place] [address] [facility] [address] [place] [address] 10/30/2024 7:00 AM EST Laboratory Lab [facility]lebot[facility] [address] [place], [place] [address] [facility] [address] [place], [place] [address] 11/11/2024 2:00 PM EST Office Visit Pharmacy, [address] [place] [address] [place] [address] 11/15/2024 7:05 AM EST Laboratory Lab [facility] Phlebotomy [facility] [address] [place] [address] [facility] [address] [place], [place] [address] 11/20/2024 7:00 AM EST Laboratory Lab [facility] Phlebotomy [facility] [address] [place], [place] [address] [facility] [address] [place] [address] 11/27/2024 7:00 AM EST Laboratory Lab [facility] Phlebotomy [facility] [address] [place], [place] [address] M[facility], [facility] [address] [place] [address] 12/04/2024 7:00 AM EST Laboratory Lab [facility] Phlebotomy [facility] [address] [place] [address] M[facility] [address] [place] [address] 12/05/2024 9:00 AM EST Home Visit [facility] [address] [place] [address] Tremaine Morgan PA-C [address] [place] [address] 12/11/2024 7:00 AM EST Laboratory Lab [facility] Phlebotomy [facility] [address] [facility] [address] [place] [address] M[facility], [facility] Draw [address] [facility] [place] [facility] [address] [place], [place] [address] 12/18/2024 7:00 AM EST Laboratory Lab [facility] Phlebotomy [facility] [address] [facility] [place] [facility] [place] [address] M[facility], [facility] Draw [address] [facility] [place] [facility] [address] [place], [place] [address] 12/24/2024 2:30 PM EST Nurse Only Ancillary [address] [place] [address] Bernadinealley, Nurse [address] [place] [address] 12/25/2024 7:00 AM EST Laboratory Lab [facility] Phlebotomy [facility] [address] [facility] [place] [facility] [place] [address] M[facility], Gml [facility] Draw [address] [facility] [place], [place] [address] 01/01/2025 7:00 AM EST Laboratory Lab [facility] Phlebotomy [facility] [address] [facility] [place] [facility] [place] [address] Mv[facility], [facility] Draw [address] [facility] [address] [place] [address] 01/08/2025 7:00 AM EST Laboratory Lab Mobile Phlebotomy [facility] [address] [facility] [place] [facility] [address] [place], [place] [address] M[facility], [facility] Draw [address] [facility] [place] [address] 01/13/2025 11:40 AM EST Office Visit Family Medicine [address] [place] [phone] Dhruv Moss MD [address] [place] [address] [place] [address] 01/15/2025 7:00 AM EST Laboratory Lab [facility] Phlebotomy [facility] [address] [place] [address] M[facility], [facility] [address] [facility] [place] [address] 01/22/2025 7:00 AM EDT Laboratory Lab Mobile Phlebotomy [facility] [address] [facility] [place] [address] Mvmg, G[facility] Draw [address] [facility] [place] [address] 01/29/2025 7:00 AM EDT Laboratory Lab Mobile Phlebotomy [facility] [address] [facility] [place] [address] M[facility], [facility] [address] [facility] [place] [address] 02/05/2025 7:00 AM EDT Laboratory Lab Mobile Phlebotomy [facility] [address] [place] [address] M[facility], [facility] Draw [address] [facility] [place] [address] 02/12/2025 7:00 AM EDT Laboratory Lab Mobile Phlebotomy [facility] [address] [place] [address] Mvmg, Gml [facility] Draw [address] [facility] [place] [address] 02/19/2025 7:00 AM EDT Laboratory Lab Mobile Phlebotomy [facility] [address] [facility] [place] [address] Mv[facility], [facility] Draw [address] [facility] [place] [address] 02/26/2025 7:00 AM EDT Laboratory Lab Mobile Phlebotomy [facility] [address] [address] M[facility], [facility] [address] [facility] [place] [address] 03/05/2025 7:00 AM EDT Laboratory Lab [facility] Phlebotomy [facility] [address] [place] [address] M[facility], [facility] [address] [place] [address] 03/12/2025 7:00 AM EDT Laboratory Lab Mobile Phlebotomy [facility] [address] [facility] [place] [address] Mvmg, Gml [facility] Draw [address] [facility] [place] [address] 03/19/2025 7:00 AM EDT Laboratory Lab Mobile Phlebotomy [facility] [address] [place] [place] [address] Mvmg, Gml [facility] Home Draw [address] [facility] [place] [address] 03/26/2025 7:00 AM EDT Laboratory Lab Mobile Phlebotomy [facility] [address] [place] [address] Mvmg, Gml [facility] Draw [address] [place] [address] 04/02/2025 7:00 AM EDT Laboratory Lab Mobile Phlebotomy [facility] [address] [place] [place] [address] Mvmg, Gml [facility] Draw [address] [facility] [place] [address] 04/09/2025 7:00 AM EDT Laboratory Lab Mobile Phlebotomy [facility] [address] [facility] [place] [address] Mvmg, [facility] Draw [address] [place] [address] 04/16/2025 7:00 AM EDT Laboratory Lab Mobile Phlebotomy [facility] [address] [place] [place] [address] Mvmg, Gml [facility] Draw [address] [facility] [place] [address] 04/23/2025 7:00 AM EDT Laboratory Lab Mobile Phlebotomy [facility] [address] [facility] [place] [address] Mvmg, [facility] Draw [address] [place] [address] 04/30/2025 7:00 AM EDT Laboratory Lab Mobile Phlebotomy [facility] [address] [place] [address] M[facility], [facility] Draw [address] [place] [address] 05/07/2025 7:00 AM EDT Laboratory Lab Mobile Phlebotomy [facility] [address] [place] [address] [facility], [facility] [address] [place] [address] 05/14/2025 7:00 AM EDT Laboratory Lab [facility] Phlebotomy [facility] [address] [place] [address] Mv[facility], Gml [facility] Draw [address] [facility] [place] [facility] [place] [address] 05/21/2025 7:00 AM EDT Laboratory Lab Mobile Phlebotomy [facility] [address] [place] [address] Mv[facility], [facility] [address] [place], [place] [address] 07/21/2025 1:30 PM EDT Imaging Radiology [address] [place] [address] 08/04/2025 1:20 PM EDT Office Visit Family Medicine [address] [place] [phone] Dhruv Moss MD [address] [place] [address] [place] [address] Health Maintenance Due Date Last Done Comments *BISPHONATE OR OTHER ACCEPTABLE MEDICATION NEEDED FOR OSTEOPOROSIS (REFER TO SMARTSET #1146) 11/06/2023 Colonoscopy 05/06/2024 05/06/2019, 05/06/2019 CKD PHOS USE SMARTSET 06771 06/07/2024 07/04/2023, 05/31/2023, 05/08/2023, Additional history exists COVID-19 Vaccine [...] Additional history exists CKD HGB USE SMARTSET 85851 09/25/202509/25, 09/25/2024, 09/18/2024, Additional history exists DTap/Tdap Vaccines (3 - Td or Tdap) 11/10/2026 11/10/2016, 03/30/2011 VITAMIN D LEVEL ONCE IN A LIFETIME-USE SMARTSET# [id number] Completed 05/11/2015 RETIRED - COLONOSCOPY-EVERY 5 YRS AGES 18-100 Discontinued 05/06/2019, 05/06/2019 Zoster Vaccines Completed 10/30/2020, 0 02/2020, 07/13/2020, [...] this encounter Medical Devices Implanted Type Area Mail Superintendent Device Identifier Shelf Expiration Date Model / Serial / Lot Port Pwr Mri Isp Profile - [id number] Implanted:Qty: 1 on 07/24/2020 by Akash Castillo MD at OR [facility] Right: Chest CR BARD : PERIPHERAL VASCULAR 04/12/2021 [id number] / / [id number] documented as of this encounter Visit Diagnoses Diagnosis Recurrent major [...] unspecified laterality, unspecified retinopathy severity, unspecified whether shelter insulin use (HCC) HTN, goal below 140/90 Unspecified essential hypertension Coronary artery disease involving shungnak coronary artery of sh[place] heart without angina pectoris Acquired hypothyroidism Unspecified hypothyroidism Gastro-esophageal reflux disease without esophagitis Esophageal reflux Dyslipidemia, goal LDL below 70 Other and unspecified hyperlipidemia Coronary artery disease involving shungnak coronary artery of shungnak heart without angina pectoris- Primary MDS (myelodysplastic [...] Myelodysplastic syndrome, unspecified Coronary artery disease involving shungnak coronary artery of shung[place] heart without angina pectoris HTN, goal below [...] goal of less than 8.0% ([facility]) Advanced care planning/counseling discussion Other specified counseling MDS (myelodysplastic syndrome), high grade (HCC)- Primary High grade myelodysplastic syndrome lesions Chronic kidney disease, stage 3a ([facility]) Type 2 diabetes mellitus with both eyes affected by moderate nonproliferative retinopathy and macular edema, with long-term current use of insulin ([facility]) Advanced care planning/counseling discussion Other specified counseling Ambulatory dysfunction 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
--- OUTSIDE RECORDS SUMMARY | 2024-10-10 00:25 | External Medical Summary ---
Author Name Unknown Address Unknown Organization K01:[facility]ORATORY [facility] - [facility] [address] [place] [address] Laboratory Report Ordering Provider Test Date Status ANN MUNGUIA 10/02/2024 07:22:00 Final Observation Date Value Abnormality Reference (Units ) Status WBC, Total 10/02/2024 07:22:00 21.93 Above high normal 4.00-10.80 (K/uL) Final RBC 10/02/2024 07:22:00 2.50 3.85-5.15 (M/uL) Final Hemoglobin 10/02/2024 07:22:00 7.3 Below low normal 12.0-15.3 (g/dL) Final HCT 10/02/2024 07:22:00 23.5 Below low normal 36.0-45.2 (%) Final MCV 10/02/2024 07:22:00 94.0 81.5-97.5 (fL) Final MCH 10/02/2024 07:22:00 29.2 27.0-34.0 (pg) Final MCHC 10/02/2024 07:22:00 31.1 32.0-36.0 (g/dL) Final RDW 10/02/2024 07:22:00 16.0 11.5-15.5 (%) Final Platelets 10/02/2024 07:22:00 3 Below lower panic limits 140-400 (K/uL) Final MPV 10/02/2024 07:22:00 9.9 6.6-11.1 (fL) Final Nucleated erythrocytes/100 leukocytes [Ratio] in Blood by Automated count 10/02/2024 07:22:00 0 <=0 (/100 WBCs) Final Performing Location LAB[facility]ATORY [facility] - [address] [place] [address]
--- OUTSIDE RECORDS SUMMARY | 2024-10-10 00:25 | External Medical Summary | Summary of Care ---
Author Name Unknown Organization [facility] Address [address] [facility] [place] [address] Phone [phone] Care Team Providers Care Metal Fabrication Supervisor Name Role Phone Dhruv Moss MD Primary Care Provide r Reason for Visit * Reason Onset Date Comments Precert Approved 09/30/2024 Encounter Details Date Type Department Care Team (Late st Contact Info) Description 09/30/2024 Telephone Ophthalmology, [facility] [address] [place] [address] Fernando Damon, [address] [place] [phone] Precert Approved Allergies No known active allergiesdocumented as of this encounter (statuses as of 10/02/2024) Medications Diclofenac Sodium 1 % External GelIndications:kne e pain Apply topically to affected area . Apply to bilateral knees Active Prochlorperazine Maleate 10 MG Oral Tablet (Compazine)Indicat ions:H/O allogeneic bone marrow transplant (HCC) Take by mouth 1 Tablet every 6 hours as needed for Nausea. 60 Tablet 3 12/09/19 22 Active Auth0Touch Verio Flex System w/Device Kit Use as directed . 12/16/19 22 Active Acetaminophen 500 MG Oral Tablet Take 1 Tablet by mouth every 6 hours as needed. Active Magnesium 100 MG Oral Capsule Take 1 Capsule by mouth in the morning. Active Pen [place] 32G X 4 MM Use as directed. 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 Date of Transplant: 09/01/2021 Conditioning Regimen: Fludarabine / Busulfan 2 with post-transplant Cytoxan ABO/Rh: A Positive CMV status: CMV Positive--- GRID: [id number] / DID: [id number] Matched Unrelated 10/24--- DPB1 Match ABO/Rh: A [...] & Plan (04/04/2023 4:21 PM EDT): Platelets 21406 on 03/20 Questionable hematuria Urinary incontinence 09/12/2022 [...] failure. Does not have any evidence of cwoji-exfpeo-cree disease Assessment & Plan (09/23/2024 10:42 AM [...] Currently in relapse. Hemoglobin yesterday 8.8. Platelets 67389. - weekly CBC. Transfusion to maintain above [...] I received a call from nurse case management specialist in the field reporting that over the [...] was that I can find were from [phone] Assessment/plan: Dyslipidemia with patient currently taking Lipitor [...] as of this encounter (statuses as of 10/02/2024) Resolved Problems Problem Noted Date Diagnosed Date [...] as of this encounter (statuses as of 10/02/2024) Immunizations Name Administration Dates Next Due COVID-19 [...] EST [facility] [address] [place] [address] [facility] [address] [place] [address] 10/16/2024 7:00 AM EST [facility] [address] [place] [address] [facility] [address] [place] [address] 10/16/2024 2:00 PM EST Office Visit Hematology/Oncology [facility] [place] [address] [facility] [place] [phone] Mervat Castro CRNP [address] [place] [address] [place] [address] 2024 7:00 AM EST [facility] [address] [place] [address] [facility] [address] [facility] [place] [address] 10/30/2024 7:00 AM EST [facility] [address] [place] [address] [facility] [address] [facility] [place] [address] 11/04/2024 4:00 PM EST [facility], [facility] [address] [place] [address] Marisa Pacheco, TANYA [address] [place] [address] 11/05/2024 9:30 AM EST Office Visit Ophthalmology, [facility] [address] [place] [address] Fernando Damon, [address] [place] [address] 11/11/2024 2:00 PM EST Office Visit [facility], [address] [place] [address] [place] [address] 11/15/2024 7:05 AM EST [facility] [address] [facility], [place] [address] [facility] [address] [facility], [place] [address] 11/20/2024 7:00 AM EST [facility] [address] [facility], [place] [address] [facility] [address] [place] [address] 11/27/2024 7:00 AM EST [facility] [address] [facility] [place], [place] [address] [facility] [address] [facility] [place], [place] [address] 12/04/2024 7:00 AM EST [facility] [address] [place], [place] [address] [facility] [address] [place] [address] 12/05/2024 9:00 AM EST Home Visit [facility], [facility] [address] [place] [address] Tremaine Morgan PA-C [address] [place] [address] 12/11/2024 7:00 AM EST [facility] [address] [place], [place] [address] [facility] [address] [facility] [place], [place] [address] 12/18/2024 7:00 AM EST [facility] [address] [place] [address] [facility] [address] [facility] [place], [place] [address] 12/24/2024 2:30 PM EST Nurse Only Ancillary [address] [place] [address] Bernadinealley, Nurse [address] [place] [address] 12/25/2024 7:00 AM EST [facility] [address] [place], [place] [address] [facility] [address] [place] [address] 01/01/2025 7:00 AM EST [facility] [address] [place], [place] [address] [facility] [address] [facility] [place], [place] [address] 01/08/2025 7:00 AM EST [facility] [address] [place], [place] [address] [facility] [address] [place] [address] 01/13/2025 11:40 AM EST Office Visit Family Medicine [address] [place] [phone] Dhruv Moss MD [address] [place] [address] [place] [address] 01/15/2025 7:00 AM EST [facility] [address] [facility] [place] [address] [facility] [address] [facility] [place] [address] 01/22/2025 7:00 AM EDT [facility] [address] [facility] [place] [address] [facility] [address] [place] [address] 01/29/2025 7:00 AM EDT [facility] [address] [place] [address] [facility] [address] [place] [address] 02/05/2025 7:00 AM EDT [facility] [address] [facility] [place] [address] [facility] [address] [place] [address] 02/12/2025 7:00 AM EDT [facility] [address] [facility] [place] [address] [facility] [address] [place] [address] 02/19/2025 7:00 AM EDT [facility] [address] [place] [address] [facility] [address] [place] [address] 02/26/2025 7:00 AM EDT [facility] [address] [facility] [place] [address] [facility] [address] [place] [address] 03/05/2025 7:00 AM EDT [facility] [address] [place] [address] [facility] [address] [place] [address] 03/12/2025 7:00 AM EDT [facility] [address] [place] [address] [facility] [address] [place] [address] 03/19/2025 7:00 AM EDT [facility] [address] [place] [address] [facility] [address] [place] [address] 03/26/2025 7:00 AM EDT [facility] [address] [place] [address] [facility] [address] [place] [address] 04/02/2025 7:00 AM EDT [facility] [address] [place] [address] [facility] [address] [place] [address] 04/09/2025 7:00 AM EDT [facility] [address] [place] [address] [facility] [address] [place] [address] 04/16/2025 7:00 AM EDT [facility] [address] [place] [address] [facility] [address] [place] [address] 04/23/2025 7:00 AM EDT [facility] [address] [place] [address] [facility] [address] [place] [address] 04/30/2025 7:00 AM EDT [facility] [address] [place], [place] [address] [facility] [address] [place], [place] [address] 05/07/2025 7:00 AM EDT [facility] [address] [place] [address] [facility] [address] [facility] [place], [place] [address] 05/14/2025 7:00 AM EDT [facility] [address] [place] [address] [facility] [address] [facility] [place], [place] [address] 05/21/2025 7:00 AM EDT [facility] [address] [facility] [place] [address] [facility] [address] [place], [place] [address] 07/21/2025 1:30 PM EDT Imaging Radiology [address] [place] [address] 08/04/2025 1:20 PM EDT Office Visit Family Medicine [address] [place] [phone] Dhruv Moss MD [address] [place] [address] [place] [address] Health Maintenance Due Date Last Done Comments *BISPHONATE OR OTHER ACCEPTABLE MEDICATION NEEDED FOR OSTEOPOROSIS (REFER TO SMARTSET #1146) 11/06/2023 Colonoscopy 05/06/2024 05/06/2019, 05/06/2019 CKD PHOS USE SMARTSET 76870 06/07/2024 07/04/2023, 05/31/2023, 05/08/2023, Additional history exists [...] Additional history exists CKD HGB USE SMARTSET 49541 09/25/202509/25, 09/25/2024, 09/18/2024, Additional history exists DTap/Tdap Vaccines (3 - Td or Tdap) 11/10/2026 11/10/2016, 03/30/2011 VITAMIN D LEVEL ONCE IN A LIFETIME-USE SMARTSET# [id number] Completed 05/11/2015 RETIRED - COLONOSCOPY-EVERY 5 YRS [...] encounter Medical Devices Implanted Type Area Supervisor Sewing Room Device Identifier Shelf Expiration Date Model / Serial / Lot Port Pwr Mri Isp Profile - [id number] Implanted:Qty: 1 on 07/24/2020 by Akash Castillo MD at OR [facility] Right: Chest CR BARD : PERIPHERAL VASCULAR 04/12/2021 [id number] / / [id number] documented as of this encounter Visit Diagnoses [...] unspecified laterality, unspecified retinopathy severity, unspecified whether assisted insulin use (HCC) HTN, goal below 140/90 Unspecified essential hypertension Coronary artery disease involving [place] coronary artery of [place] heart without angina pectoris Acquired hypothyroidism Unspecified hypothyroidism Gastro-esophageal reflux disease without esophagitis Esophageal reflux Dyslipidemia, goal LDL below 70 Other and unspecified hyperlipidemia Coronary artery disease involving [place] coronary artery of [place] heart without angina pectoris- Primary MDS (myelodysplastic [...] Myelodysplastic syndrome, unspecified Coronary artery disease involving [place] coronary artery of [place] heart without angina pectoris HTN, goal below [...] of less than 8.0% ([facility]) Advanced care planning/counseling discussion Other specified counseling MDS (myelodysplastic syndrome), high grade (HCC)- Primary High grade myelodysplastic syndrome lesions Chronic kidney disease, stage 3a ([facility]) Type 2 diabetes mellitus with both eyes affected by moderate nonproliferative retinopathy and macular edema, with long-term current use of insulin ([facility]) Advanced care planning/counseling discussion Other specified counseling Ambulatory dysfunction 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
--- OUTSIDE RECORDS SUMMARY | 2024-10-10 00:25 | External Medical Summary | Summary of Care ---
Author Name Unknown Organization [facility] Address [address] [place] [address] Phone [phone] Care Team Providers Care Road Engineer Freight Name Role Phone Dhruv Moss MD Primary Care Provide r Reason for Visit * Reason Onset Date Comments Appointment 09/30/2024 Encounter Details Date Type Department Care Team (Late st Contact Info) Description 09/30/2024 Telephone [facility] [address] [place] [address] Dustin Montes, VEDA [address] [place] [address] Appointment Allergies No known active allergiesdocumented as [...] Nausea. 60 Tablet 3 12/09/19 22 Active OneTouch Verio Flex System w/Device Kit Use as directed . 12/16/19 22 Active Acetaminophen 500 MG Oral Tablet Take 1 Tablet by mouth every 6 hours as needed. Active Magnesium 100 MG Oral Capsule Take 1 Capsule by mouth in the morning. Active Pen [place] 32G X 4 MM Use as directed. [...] 24 Hour (Imdur)Indications :Coronary artery disease involving blackfeet coronary artery of [...] goal of less than 8.0% ([facility]) Use to test blood sugar three times a day DXe11.9 300 Each 3 07/22/20 24 Active Insulin Glargine Solostar 100 UNIT/ML Subcutaneous Solution Pen-injector (Lantus SoloStar) Inject 16 Units under the skin in the morning. 30 mL 3 07/22/20 24 Active Ondansetron HCl 8 MG Oral TabletIndications: MDS (myelodysplastic syndrome), high grade ([facility]) Take 1 Tablet by mouth every [...] urrent major depressive disorder, in partial remission ([facility]) TAKE ONE CAPSULE BY MOUTH EVERY DAY do not cut, crush, or chew 90 Capsule 2 09/23/20 24 Active Hospital, Clinic, or Other Facility Administered Medication Ordered Dose Route Frequency Start Date End Date Status NSS 0.9% 1,000 mL bolus infusionIndications:MDS (myelodysplastic syndrome), high grade (HCC),Stem cells transplant status ([facility]),Acquired hypothyroidism 1000 mL IV DAILY PRN [...] edema, unspecified whether retirement insulin use (HCC) 2 mg IZ PRN 09/30/2024 09/30/2025 Ac tive ROPivacaine (Naropin) inj 1.5 mgIndications: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 Does not have any evidence of [id number] disease Assessment & Plan (09/23/2024 10:42 AM [...] Currently in relapse. Hemoglobin yesterday 8.8. Platelets 72066. - weekly CBC. Transfusion to maintain above [...] I received a call from nurse case worker in the field reporting that [...] that time. Coronary artery disease invo lving blackfeet coronary artery of blackfeet heart without angina pectoris 06/12/2017 Overview (06/12/2017): [...] was that I can find were from [id number] Assessment/plan: Dyslipidemia with patient currently taking Lipitor [...] 07/27/2021 06/03/20 22 COVID-19 virus infection 07/25/2021 Iron overload, transfusional [...] sol Taylor RN documented in this encounter Miscellaneous Notes * Telephone Encounter - Dustin Montes OSA - 09/30/2024 12:45 PM EST Request from Call Offs - rescheduled October 08 home visit with Marisa Pacheco to November 04 at4 pm with spouse at 2:30 pm. Left a message for patient to call back to confirm appointment. documented in this encounter Plan of Treatment Upcoming Encounters Date Type Department Care Team (Late st Contact Info) Description 10/02/2024 7:00 AM EST [facility] [address] [place], [place] [address] [facility] [address] [place], [place] [address] 10/09/2024 7:00 AM EST [facility] [address] [place], [place] [address] [facility] [address] [place], [place] [address] 10/16/2024 7:00 AM EST [facility] [address] [place], [place] [address] [facility] [address] [place], [place] [address] 10/16/2024 1:45 PM EST [facility] [place] [address] [place], [place] [id number] Jitendra Aguero MD [address] [facility] [place] [address] 2024 7:00 AM EST [facility] [address] [place], [place] [address] [facility] [address] [place], [place] [address] 10/30/2024 7:00 AM EST [facility] [address] [place] [address] [facility] [address] [place], [place] [address] 11/04/2024 4:00 PM EST Home Visit [facility] [address] [place] [address] Marisa Pacheco, TANYA [address] [place] [address] 11/11/2024 2:00 PM EST Office Visit Pharmacy, [address] [place] [address] [place] [address] 11/15/2024 7:05 AM EST [facility] [address] [place] [address] [facility] [address] [place] [address] 11/20/2024 7:00 AM EST [facility] [address] [place] [address] [facility] [address] [place] [address] 11/27/2024 7:00 AM EST [facility] [address] [place] [address] [facility] [address] [place] [address] 12/04/2024 7:00 AM EST [facility] [address] [place] [address] [facility] [address] [place] [address] 12/05/2024 9:00 AM EST Home Visit [facility] [address] [place] [address] Tremaine Morgan PA-C [address] [place] [address] 12/11/2024 7:00 AM EST [facility] [address] [place] [address] [facility] [address] [facility] [place] [address] 12/18/2024 7:00 AM EST Laboratory [facility] [address] [place] [address] [facility] [address] [facility] [place] [address] 12/24/2024 2:30 PM EST Nurse Only Ancillary [address] [place] [address] [place], Nurse Annual [address] [place] [address] 12/25/2024 7:00 AM EST [facility] [address] [place] [address] [address] [facility] [address] [place], [place] [address] 01/01/2025 7:00 AM EST Laboratory [facility] [address] [place] [address] [facility] [address] [facility] [place] [address] 01/08/2025 7:00 AM EST [facility] [address] [place] [address] [address] [address] [facility] [address] [place], [place] [address] 01/13/2025 11:40 AM EST Office Visit Family Medicine [address] [place] [phone] Dhruv Moss MD [address] [place] [address] [place] [address] 01/15/2025 7:00 AM EST [facility] [address] [place], [place] [address] [facility] [address] [place] [place], [place] [address] 01/22/2025 7:00 AM EDT Laboratory [facility] [address] [place], [place] [address] [facility] [address] [place], [place] [address] 01/29/2025 7:00 AM EDT Laboratory [facility] [address] [place], [place] [address] [facility] [address] [place] [address] 02/05/2025 7:00 AM EDT Laboratory [facility] [address] [place], [place] [address] [facility] [address] [place] [address] 02/12/2025 7:00 AM EDT Laboratory [facility] [address] [place] [address] [facility] [address] [place] [address] 02/19/2025 7:00 AM EDT Laboratory [facility] [address] [place] [address] [facility] [address] [place] [address] 02/26/2025 7:00 AM EDT Laboratory [facility] [address] [place] [address] [facility] [address] [place] [address] 03/05/2025 7:00 AM EDT Laboratory [facility] [address] [place] [address] [facility] [address] [place] [address] 03/12/2025 7:00 AM EDT Laboratory [facility] [address] [place] [address] [facility] [address] [place] [address] 03/19/2025 7:00 AM EDT Laboratory [facility] [address] [place] [address] [facility] [address] [place] [address] 03/26/2025 7:00 AM EDT Laboratory [facility] [address] [place] [address] [facility] [address] [place] [address] 04/02/2025 7:00 AM EDT Laboratory [facility] [address] [place] [address] [facility] [address] [place] [address] 04/09/2025 7:00 AM EDT Laboratory [facility] [address] [place] [address] [facility] [address] [place] [address] 04/16/2025 7:00 AM EDT Laboratory [facility] [address] [place] [address] [facility] [address] [place] [address] 04/23/2025 7:00 AM EDT Laboratory [facility] [address] [place] [place], [place] [address] [facility] [address] [facility] [place], [place] [address] 04/30/2025 7:00 AM EDT Laboratory [facility] [address] [place] [address] [facility] [address] [facility] [place] [address] 05/07/2025 7:00 AM EDT Laboratory [facility] [address] [place], [place] [address] [facility] [address] [facility] [place] [address] 05/14/2025 7:00 AM EDT [facility] [address] [facility] [place] [address] [facility] [address] [facility] [place] [address] 05/21/2025 7:00 AM EDT Laboratory [facility] [address] [facility] [place] [address] [facility] [address] [facility] [place] [address] 07/21/2025 1:30 PM EDT Imaging Radiology [address] [place] [address] 08/04/2025 1:20 PM EDT Office Visit Family Medicine [address] [place] [phone] Dhruv Moss MD [address] [place] [address] [place] [address] Health Maintenance Due Date Last Done Comments *BISPHONATE OR OTHER ACCEPTABLE MEDICATION NEEDED FOR OSTEOPOROSIS (REFER TO SMARTSET #1146) 11/06/2023 Colonoscopy 05/06/2024 05/06/2019, 05/06/2019 CKD PHOS USE SMARTSET 09605 06/07/2024 07/2 04/2023, 05/31/2023, 05/08/2023, Additional history exists COVID-19 Vaccine [...] Additional history exists CKD HGB USE SMARTSET 83995 09/25/202509/25, 09/25/2024, 09/18/2024, Additional history exists DTap/Tdap Vaccines (3 - Td or Tdap) 11/10/2026 11/10/2016, 03/30/2011 VITAMIN D LEVEL ONCE IN A LIFETIME-USE SMARTSET# 90493 Completed 05/11/2015 RETIRED - COLONOSCOPY-EVERY 5 YRS [...] this encounter Medical Devices Implanted Type Area Investigation Lieutenant Device Identifier Shelf Expiration Date Model / Serial / Lot Port Pwr Mri Isp Profile - [id number] Implanted:Qty: 1 on 07/24/2020 by Akash Castillo MD at [facility] Right: Chest CR BARD : PERIPHERAL VASCULAR 04/12/2021 [id number] / / [id number] documented as of this encounter Advance Directives [...] Adult Child Health Care Agent Care Teams Road Engineer Freight Relationship Specialty Start Date End Date Dhruv Moss MD [address] [place], [place] [address] [address] PCP - General Family Medicine 08/27/21 documented as of this encounter
--- OUTSIDE RECORDS SUMMARY | 2024-10-10 00:25 | External Medical Summary | Summary of Care ---
Author Name Unknown Organization [facility] Address [address] [facility] [place] [address] Phone [phone] Care Team Providers Care Senior Management Consultant Name Role Phone Dhruv Moss MD Primary Care Provide r Reason for Visit * Reason Onset Date Comments Precert Pending 09/30/2024 18 KG pending, p romptpa, [phone] Encounter Details Date Type Department Care Team (Late st Contact Info) Description 09/30/2024 Telephone Ophthalmology, [facility] [address] [place] [address] Fernando Damon, [facility] [place] [address] Precert Pending (18 KG pending, promptpa, ... [...] Nausea. 60 Tablet 3 12/09/19 22 Active KakKstati VerFanBridge Flex System w/Device Kit Use as directed . 12/16/19 22 Active Acetaminophen 500 MG Oral Tablet Take 1 Tablet by mouth every 6 hours as needed. Active Magnesium 100 MG Oral Capsule Take 1 Capsule by mouth in the morning. Active Pen [place] 32G X 4 MM Use as directed. Use to inject insulin up to 4 times daily. 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,HTN, goal below 140/90 [...] hemoglobin A1c goal of less than 8.0% ([facility]) Use to test blood [...] eyes and macular edema, unspecified whether terminal block assembler insulin use (HCC) 1.25 mg IZ PRN 07/17/2024 07/17/2025 Ac tive Aflibercept (Eylea) intravitreal inj 2 mgIndications: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 Does not have any evidence of hafgp-epcdcp-dvdd disease Assessment & Plan (09/23/2024 10:42 AM [...] Currently in relapse. Hemoglobin yesterday 8.8. Platelets [id number]. - weekly CBC. Transfusion to maintain above [...] EDT): I received a call from nurse caser up in the field reporting that over the [...] that time. Coronary artery disease invo lving jamul coronary artery of jamul heart without angina pectoris 06/12/2017 Overview (06/12/2017): [...] was that I can find were from [id number] Assessment/plan: Dyslipidemia with patient currently taking Lipitor [...] mRNA, LNP-s, No Pre serve, 2-Dose Series (SeeMe) 02/05/2021,01/08/2021 COVID-19, LNP-s, No Preserve , Ye-sucrose, [...] EST [facility] [address] [place] [address] [facility] [address] [place] [address] 10/16/2024 7:00 AM EST [facility] [address] [place] [address] [facility] [address] [place] [address] 10/16/2024 2:00 PM EST Office Visit Hematology/Oncology [facility] [place] [address] [facility] [place] [phone] Mervat Castro CRNP [address] [place] [address] 2024 7:00 AM EST [facility] [address] [place] [address] [facility] [address] [place] [address] 10/30/2024 7:00 AM EST [facility] [address] [place] [address] [facility] [address] [facility] [place] [address] 11/04/2024 4:00 PM EST Home Visit ising at [facility] [address] [facility] [place] [address] Marisa Pacheco, TANYA [address] [facility] [place] [address] 11/05/2024 9:30 AM EST Office Visit Ophthalmology, [facility] [address] [place] [address] Fernando Damon DO [address] [place] [address] 11/11/2024 2:00 PM EST Office Visit Pharmacy, [address] [place] [address] [place] [address] 11/15/2024 7:05 AM EST [facility] [address] [place], [place] [address] [facility] [address] [place], [place] [address] 11/20/2024 7:00 AM EST [facility] [address] [place], [place] [address] [facility] [address] [facility] [place], [place] [address] 11/27/2024 7:00 AM EST [facility] [address] [facility] [place], [place] [address] [facility] [address] [place], [place] [address] 12/04/2024 7:00 AM EST [facility] [address] [place], [place] [address] [facility] [address] [facility] [place], [place] [address] 12/05/2024 9:00 AM EST Home Visit [facility], [facility] [address] [place] [address] Tremaine Morgan PA-C [address] [place] [address] 12/11/2024 7:00 AM EST [facility] [address] [place] [address] [facility] [address] [facility] [place] [address] 12/18/2024 7:00 AM EST [facility] [address] [place] [address] [facility] [address] [facility] [place] [address] 12/24/2024 2:30 PM EST Nurse Only Ancillary [address] [place] [address] [place], Nurse [address] [place] [address] 12/25/2024 7:00 AM EST [facility] [address] [place] [address] [facility] [address] [place] [address] 01/01/2025 7:00 AM EST [facility] [address] [facility] [place] [address] [facility] [address] [place] [address] 01/08/2025 7:00 AM EST [facility] [address] [place] [address] [facility] [address] [place] [address] 01/13/2025 11:40 AM EST Office Visit Family Medicine [address] [place] [address] Dhruv Moss MD [address] [place] [address] [place] [address] 01/15/2025 7:00 AM EST [facility] [address] [facility] [place] [address] [facility] [address] [facility] [place] [address] 01/22/2025 7:00 AM EDT [facility] [address] [facility] [place] [address] [facility] [address] [place] [address] 01/29/2025 7:00 AM EDT [facility] [address] [facility] [place] [address] [facility] [address] [place] [address] 02/05/2025 7:00 AM EDT [facility] [address] [place] [address] [facility] [address] [place] [address] 02/12/2025 7:00 AM EDT [facility] [address] [place] [address] [facility] [address] [place] [address] 02/19/2025 7:00 AM EDT [facility] [address] [place] [address] [facility] [address] [place] [address] 02/26/2025 7:00 AM EDT [facility] [address] [place] [address] [facility] [address] [place] [address] 03/05/2025 7:00 AM EDT [facility] [address] [place] [address] [facility] [address] [facility] [place] [address] 03/12/2025 7:00 AM EDT [facility] [address] [facility] [place] [address] [facility] [address] [place] [address] 03/19/2025 7:00 AM EDT [facility] [address] [place] [address] [facility] [address] [place] [address] 03/26/2025 7:00 AM EDT [facility] [address] [facility] [place] [address] [facility] [address] [place] [address] 04/02/2025 7:00 AM EDT [facility] [address] [facility] [place] [address] [facility] [address] [place] [address] 04/09/2025 7:00 AM EDT [facility] [address] [facility] [place] [address] [facility] [address] [place] [address] 04/16/2025 7:00 AM EDT [facility] [address] [facility] [place] [address] [facility] [address] [facility] [place] [address] 04/23/2025 7:00 AM EDT [facility] [address] [facility] [place] [address] [facility] [address] [place] [address] 04/30/2025 7:00 AM EDT [facility] [address] [place] [address] [facility] [address] [place] [address] 05/07/2025 7:00 AM EDT [facility] [address] [place] [address] [facility] [address] [place] [address] 05/14/2025 7:00 AM EDT [facility] [address] [place] [address] [facility] [address] [place] [address] 05/21/2025 7:00 AM EDT [facility] [address] [place] [address] [facility] [address] [place] [address] 07/21/2025 1:30 PM EDT Imaging Radiology [address] [place] [address] 08/04/2025 1:20 PM EDT Office Visit Family Medicine [address] [place] [phone] Dhruv Moss MD [address] [place] [address] [place] [address] Health Maintenance Due Date Last Done Comments *BISPHONATE OR OTHER ACCEPTABLE MEDICATION NEEDED FOR OSTEOPOROSIS (REFER TO SMARTSET #1146) 11/06/2023 Colonoscopy 05/06/2024 05/06/2019, 05/06/2019 CKD PHOS USE SMARTSET 34681 06/07/202405/14, 05/31/2023, 05/08/2023, Additional history exists COVID-19 [...] Additional history exists CKD HGB USE SMARTSET 33923 09/25/202509/25, 09/25/2024, 09/18/2024, Additional history exists DTap/Tdap Vaccines (3 - Td or Tdap) 11/10/2026 11/10/2016, 03/30/2011 VITAMIN D LEVEL ONCE IN A LIFETIME-USE SMARTSET# [id number] Completed 05/11/2015 RETIRED - COLONOSCOPY-EVERY 5 YRS [...] this encounter Medical Devices Implanted Type Area Account Retention Representative Device Identifier Shelf Expiration Date Model / Serial / Lot Port Pwr Mri Isp Profile - [id number] Implanted:Qty: 1 on 07/24/2020 by Akash Castillo MD at OR 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 Acquired hypothyroidism Unspecified hypothyroidism Gastro-esophageal reflux disease without esophagitis Esophageal reflux Dyslipidemia, goal LDL below 70 Other and unspecified hyperlipidemia 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- Primary MDS (myelodysplastic [...] Myelodysplastic syndrome, unspecified 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 HTN, goal below [...] hemoglobin A1c goal of less than 8.0% ([facility]) Age-related osteoporosis without current pathological fracture Senile osteoporosis MDS (myelodysplastic syndrome), high grade (HCC)- Primary High grade myelodysplastic syndrome lesions Stem cells transplant status ([facility]) 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 Type 2 diabetes mellitus with hemoglobin A1c goal of less than 8.0% ([facility]) Advanced care planning/counseling discussion Other specified counseling MDS (myelodysplastic syndrome), high grade (HCC)- Primary High grade myelodysplastic syndrome lesions Chronic kidney disease, stage 3a ([facility]) Type 2 diabetes mellitus with both eyes affected by moderate nonproliferative retinopathy and macular edema, with long-term current use of insulin ([facility]) Advanced care planning/counseling discussion Other specified counseling Ambulatory dysfunction 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
--- OUTSIDE RECORDS SUMMARY | 2024-10-10 00:25 | External Medical Summary ---
Author Name Unknown Address Unknown Organization K01[facility] [address] [facility] [place] [address] Laboratory Report Ordering Provider Test Date Status ANN MUNGUIA 10/02/2024 07:22:00 Final Observation Date Value Abnormality Reference (Units ) Status SYNC LEUKOCYTES IN BLOOD BY AUTOMATED COUNT 10/02/2024 07:22:00 21.93 Above high normal 4.00-10.80 (K/uL) Final Neutrophils/100 leukocytes in Blood by Manual count 10/02/2024 07:22:00 34.0 Below low normal 40.0-75.0 (%) Final Lymphocytes/100 leukocytes in Blood by Manual count 10/02/2024 07:22:00 29.0 18.0-42.0 (%) Final Monocytes/100 leukocytes in Blood by Manual count 10/02/2024 07:22:00 7.0 1.0-11.0 (%) Final Eosinophils/100 leukocytes in Blood by Manual count 10/02/2024 07:22:00 4.0 0.0-6.0 (%) Final Metamyelocytes/100 leukocytes in Blood by Manual count 10/02/2024 07:22:00 1.0 Above high normal <=0.0 (%) Final Blasts/100 leukocytes in Blood by Manual count 10/02/2024 07:22:00 25.0 Above high normal <=0.0 (%) Final Neutrophils [#/volume] in Blood by Manual count 10/02/2024 07:22:00 7.46 1.80-7.70 (K/uL) Final Lymphocytes [#/volume] in Blood by Manual count 10/02/2024 07:22:00 6.36 Above high normal 1.00-4.80 (K/uL) Final Monocytes [#/volume] in Blood by Manual count 10/02/2024 07:22:00 1.54 Above high normal 0.00-1.10 (K/uL) Final Eosinophils [#/volume] in Blood by Manual count 10/02/2024 07:22:00 0.88 Above high normal 0.00-0.70 (K/uL) Final Metamyelocytes [#/volume] in Blood by Manual count 10/02/2024 07:22:00 0.22 Above high normal <=0.00 (K/uL) Final Blasts [#/volume] in Blood by Manual count 10/02/2024 07:22:00 5.48 Above high normal <=0.00 (K/uL) Final Performing Location [facility] [place] [address] [facility] [address]
--- OUTSIDE RECORDS SUMMARY | 2024-10-10 00:25 | External Medical Summary | Summary of Care ---
Author Name Unknown Organization [facility] Address [address] [facility] [place] [address] Phone [phone] Care Team Providers Care Bilingual Loan Processor Name Role Phone Dhruv Moss MD Primary Care Provide r Reason for Visit * Reason Onset Date Comments Precert Pending 09/30/2024 18 KG pending, p romptpa, [phone] Encounter Details Date Type Department Care Team (Late st Contact Info) Description 09/30/2024 Telephone Ophthalmology, [facility] [address] [place] [address] Fernando Damon, [facility] [place] [address] Precert Pending (18 KG pending, promptpa, ... [...] Nausea. 60 Tablet 3 12/09/19 22 Active SOPATec VerTickTickTickets Flex System w/Device Kit Use as directed . 12/16/19 22 Active Acetaminophen 500 MG Oral Tablet Take 1 Tablet by mouth every 6 hours as needed. Active Magnesium 100 MG Oral Capsule Take 1 Capsule by mouth in the morning. Active Pen Lamar 32G X 4 MM Use as directed. Use to inject insulin up to 4 times daily. 400 Each 3 04/09/2024 7:20 AM EDT 04/05/20 24 Active Atorvastatin Calcium 40 MG Oral Tablet (Lipitor)Indicatio ns:Dyslipidemia, goal LDL below 70 TAKE ONE TABLET BY MOUTH IN THE MORNING 90 Tablet 2 04/22/20 24 Active [employer] In Vitro Strip (Glucose Blood)Indications: Type 2 [...] 24 Hour (Imdur)Indications :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,HTN, goal below 140/90 [...] than 8.0% ([facility]) Use to test blood sugar three times [...] whether long lines operator insulin use (HCC) 1.25 mg IZ [...] 3553 [phone] [id number] 732 / DID: [id number] Matched Unrelated 10/24--- DPB1 Match ABO/Rh: A [...] & Plan (04/04/2023 4:21 PM EDT): Platelets 05860 on 03/20 Questionable hematuria Urinary incontinence 09/12/2022 [...] failure. Does not have any evidence of sejlm-miyrmu-ionl disease Assessment & Plan (09/23/2024 10:42 AM [...] Currently in relapse. Hemoglobin yesterday 8.8. Platelets 24330. - weekly CBC. Transfusion to maintain above [...] I received a call from nurse case finishing machine adjuster in the field reporting that over the [...] that time. Coronary artery disease invo lving yurok coronary artery of yurok heart without angina pectoris 06/12/2017 Overview (06/12/2017): [...] was that I can find were from [id number] Assessment/plan: Dyslipidemia with patient currently taking Lipitor [...] mRNA, LNP-s, No Pre serve, 2-Dose Series ([employer]) 02/05/2021,01/08/2021 COVID-19, LNP-s, No Preserve , [...] EST Laboratory [facility] [address] [place] [address] Mvmg, [facility] Home Draw [address] [place] [address] 10/08/2024 10:00 AM EST Home Visit [facility] [address] [facility] [place] [address] Marisa Pacheco RN [address] [facility] [place] [address] 10/09/2024 7:00 AM EST Laboratory [facility] [address] [place] [address] Mvmg, G[facility] Draw [address] [facility] [place] [address] 10/16/2024 7:00 AM EST Laboratory [facility] Phlebotomy [facility] [address] [place] [address] Mvmg, [facility] Draw [address] [facility] [place] [address] 10/16/2024 1:45 PM EST Office Visit Hematology/Oncology [address] [place] [address] [place] [phone] Jitendra Aguero MD [address] [place] [address] 2024 7:00 AM EST Laboratory [facility] [address] [place] [address] M[facility], [facility] Draw [address] [place] [address] 10/30/2024 7:00 AM EST Laboratory [facility]le[facility] [address] [place], [place] [address] Mv[facility], [facility] Draw [address] [place], [place] [address] 11/11/2024 2:00 PM EST Office Visit Pharmacy, [address] [place] [address] [place] [address] 11/15/2024 7:05 AM EST Laboratory [facility]le[facility] [address] [place] [address] Mvmg, [facility] Draw [address] [address] [place], [place] [address] 11/20/2024 7:00 AM EST Laboratory [facility] Phlebotomy [facility] [address] [place], [place] [address] Mvmg, [facility]ml [facility] Draw [address] [place] [address] 11/27/2024 7:00 AM EST Laboratory [facility] Phlebotomy [facility] [address] [place], [place] [address] Mvmg, Gml [facility] Draw [address] [place] [address] 12/04/2024 7:00 AM EST Laboratory [facility] [address] [place] [address] Mvmg, G[facility] Draw [address] [place] [address] 12/05/2024 9:00 AM EST Home Visit [facility], [facility] [address] [place] [address] Tremaine Morgan PA-C [address] [place] [address] 12/11/2024 7:00 AM EST Laboratory [facility] Phlebotomy [facility] [address] [place] [facility] [address] [place] [address] Mvmg, Gml Mobile Home Draw [address] [facility] [address] [place], [place] [address] 12/18/2024 7:00 AM EST Laboratory [facility] Phlebotomy [facility] [address] [facility] [place] [address] Mvmg, Gml [facility] Draw [address] [facility] [address] [place], [place] [address] 12/24/2024 2:30 PM EST Nurse Only Ancillary [address] [place] [address] Bernadinealley, Nurse [address] [place] [address] 12/25/2024 7:00 AM EST Laboratory [facility] [address] [facility] [place] [address] Mvmg, Gml Mobile Home Draw [address] [facility] [place], [place] [address] 01/01/2025 7:00 AM EST Laboratory [facility] Phlebotomy [facility] [address] [facility] [place] [address] Mvmg, Gml [facility] Home Draw [address] [facility] [address] [place], [place] [address] 01/08/2025 7:00 AM EST Laboratory [facility]lebotomy [facility] [address] [facility] [address] [place], [place] [address] Mvmg, Gml Mobile Home Draw [address] [facility] [place] [address] 01/13/2025 11:40 AM EST Office Visit Family Medicine [address] [place] [phone] Dhruv Moss MD [address] [place] [address] [place] [address] 01/15/2025 7:00 AM EST Laboratory [facility] [address] [place] [address] Mvmg, Gml [facility] Home Draw [address] [facility] [place] [address] 01/22/2025 7:00 AM EDT Laboratory [facility] Phlebotomy [facility] [address] [facility] [place] [address] Mvmg, Gml [facility] Draw [address] [place] [address] 01/29/2025 7:00 AM EDT Laboratory [facility] Phlebotomy [facility] [address] [place] [address] Mvmg, Gml [facility] Home Draw [address] [place] [address] 02/05/2025 7:00 AM EDT Laboratory [facility] Phlebotomy [facility] [address] [place] [address] Mvmg, Gml Mobile Home Draw [address] [place] [address] 02/12/2025 7:00 AM EDT Laboratory Lab Mobile Phlebotomy [facility] [address] [place] [address] Mvmg, Gml [facility] Home Draw [address] [facility] [place] [address] 02/19/2025 7:00 AM EDT Laboratory Lab Mobile Phlebotomy [facility] [address] [place] [address] Mvmg, Gml [facility] Home Draw [address] [place] [address] 02/26/2025 7:00 AM EDT Laboratory [facility] Phlebotomy [facility] [address] [place] [address] Mvmg, Gml Mobile Home Draw [address] [facility] [place] [address] 03/05/2025 7:00 AM EDT Laboratory [facility] Phlebotomy [facility] [address] [place] [address] Mvmg, Gml Mobile Home Draw [address] [place] [address] 03/12/2025 7:00 AM EDT Laboratory [facility] Mobile Phlebotomy [facility] [address] [place] [address] Mvmg, Gml Mobile Home Draw [address] [place] [address] 03/19/2025 7:00 AM EDT Laboratory Lab Mobile Phlebotomy [facility] [address] [facility] [place] [address] Mvmg, Gml Mobile Home Draw [address] [place] [address] 03/26/2025 7:00 AM EDT Laboratory Lab Mobile Phlebotomy [facility] [address] [place] [address] Mvmg, Gml Mobile Home Draw [address] [place] [employer] [facility] [place] [address] 04/02/2025 7:00 AM EDT Laboratory Lab Mobile Phlebotomy [facility] [address] [facility] [place] [address] Mvmg, Gml Mobile Home Draw [address] [place] [address] 04/09/2025 7:00 AM EDT Laboratory Lab [facility] Phlebotomy [facility] [address] [place] [address] Mvmg, Gml Mobile Home Draw [address] [place] [employer] [facility] [place] [address] 04/16/2025 7:00 AM EDT Laboratory Lab Mobile Phlebotomy [facility] [address] [facility] [place] [address] Mvmg, Gml Mobile Home Draw [address] [place] [address] 04/23/2025 7:00 AM EDT Laboratory Lab Mobile Phlebotomy [facility] [address] [place] [address] Mvmg, Gml Mobile Home Draw [address] [place] [employer] [facility] [place] [address] 04/30/2025 7:00 AM EDT Laboratory Lab Mobile Phlebotomy [facility] [address] [place] [address] Mvmg, Gml Mobile Home Draw [address] [place] [employer] [place] [address] 05/07/2025 7:00 AM EDT Laboratory Lab Mobile Phlebotomy [facility] [address] [place] [address] Mvmg, Gml Mobile Home Draw [address] [place] [address] 05/14/2025 7:00 AM EDT Laboratory Lab [facility] Phlebotomy [facility] [address] [place] [address] Mvmg, Gml Mobile Home Draw [address] [facility] [place] [address] 05/21/2025 7:00 AM EDT Laboratory Lab [facility] Phlebotomy [facility] [address] [place] [address] Mvmg, Gml [facility] Home Draw [address] [place] [employer] [place], [place] [address] 07/21/2025 1:30 PM EDT Imaging Radiology [address] [place] [address] 08/04/2025 1:20 PM EDT Office Visit Family Medicine [address] [place] [phone] Dhruv Moss MD [address] [place] [address] [place] [address] Health Maintenance Due Date Last Done Comments *BISPHONATE OR OTHER ACCEPTABLE MEDICATION NEEDED FOR OSTEOPOROSIS (REFER TO SMARTSET #1146) 11/06/2023 Colonoscopy 05/06/2024 05/06/2019, 05/06/2019 CKD PHOS USE SMARTSET 91709 06/07/2024 07/04/2023, 05/31/2023, 05/08/2023, Additional history exists [...] Additional history exists CKD HGB USE SMARTSET 08733 09/25/202509/25, 09/25/2024, 09/18/2024, Additional history exists DTap/Tdap Vaccines (3 - Td or Tdap) 11/10/2026 11/10/2016, 03/30/2011 VITAMIN D LEVEL ONCE IN A LIFETIME-USE SMARTSET# [id number] Completed 05/11/2015 RETIRED - COLONOSCOPY-EVERY 5 YRS [...] this encounter Medical Devices Implanted Type Area Stone Hand Device Identifier Shelf Expiration Date Model / Serial / Lot Port Pwr Mri Isp Profile - [id number] Implanted:Qty: 1 on 07/24/2020 by Akash Castillo MD at OR [facility] Right: Chest CR BARD : PERIPHERAL VASCULAR 04/12/2021 [id number] / / [id number] documented as of this encounter Visit Diagnoses [...] unspecified laterality, unspecified retinopathy severity, unspecified whether custodial insulin use (HCC) HTN, goal below 140/90 Unspecified essential hypertension 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 Acquired hypothyroidism Unspecified hypothyroidism Gastro-esophageal reflux disease without esophagitis Esophageal reflux Dyslipidemia, goal LDL below 70 Other and unspecified hyperlipidemia 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- Primary MDS (myelodysplastic [...] Myelodysplastic syndrome, unspecified 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 HTN, goal below [...] than 8.0% ([facility]) Advanced care planning/counseling discussion Other specified counseling MDS (myelodysplastic syndrome), high grade (HCC)- Primary High grade myelodysplastic syndrome lesions Chronic kidney disease, stage 3a ([facility]) Type 2 diabetes mellitus with both eyes affected by moderate nonproliferative retinopathy and macular edema, with long-term current use of insulin ([facility]) Advanced care planning/counseling discussion Other specified counseling Ambulatory dysfunction 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
--- OUTSIDE RECORDS SUMMARY | 2024-10-10 00:25 | External Medical Summary | Summary of Care ---
Author Name Unknown Organization [facility] Address [address] [facility] [place] [address] Phone [phone] Care Team Providers Care Host/Hostess Head Name Role Phone Dhruv Moss MD Primary Care Provide r Reason for Visit * Reason Comments Follow Up * Precert (Within 10 days (routine)) - Authorized Specialty Diagnoses / Procedures Referred By Vern ayala Referred To Contact Ophthalmology Diagnoses Type 2 diabetes mellitus with moderate nonproliferative diabetic retinopathy with macular edema, bilateral (HCC) Procedures DE AFLIBERCEPT INJECTION DE INTRAVITREAL NJX PHARMACOLOGIC AGT SPX Fernando Damon DO [address] [place] [address] Phone: tel: fax: [facility]hthal[facility], [facility] [address] Phone: tel: fax: Referral ID Status Reason Start Date Expiration Date V isits Requested Visits Authorized [id number] Authorized Precert 11/27/2020 11/12/2099 [id number] Encounter Details Date Type Department Care Team (Late st Contact Info) Description 09/30/2024 10:45 AM EST Office Visit Ophthalmology, [facility] [address] [facility] [place] [address] Fernando Damon DO [address] [place] [address] 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, unspecified whether correction insulin use ([facility])* Allergies No known active allergiesdocumented as of [...] Nausea. 60 Tablet 3 12/09/19 22 Active [place] Opera[employer] Flex System w/Device Kit Use as directed . 12/16/19 22 Active Acetaminophen 500 MG Oral Tablet Take 1 Tablet by mouth every 6 hours as needed. Active Magnesium 100 MG Oral Capsule Take 1 Capsule by mouth in the morning. Active [place] 32G X 4 MM Use as directed. Use to inject insulin up to 4 times daily. 400 Each 3 04/09/2024 7:20 AM EDT 04/05/20 24 Active Atorvastatin Calcium 40 MG Oral Tablet (Lipitor)Indicatio ns:Dyslipidemia, goal LDL below 70 TAKE ONE TABLET BY MOUTH IN THE MORNING 90 Tablet 2 04/22/20 24 Active [employer] Verio In Vitro Strip (Glucose Blood)Indications: Type 2 diabetes mellitus with hemoglobin A1c goal of less than 8.0% ([facility]) Use to test blood sugar three times a day DXe11.9 300 Strip 3 04/22/20 24 Active Acyclovir 800 MG Oral Tablet (Zovirax)Indicatio ns:MDS (myelodysplastic syndrome), high grade ([facility]) TAKE ONE TABLET BY MOUTH TWICE DAILY in the morning and before bedtime 60 Tablet 11 05/13/20 24 Active Isosorbide Mononitrate ER 30 MG Oral Tablet Extended Release 24 Hour (Imdur)Indications :Coronary artery disease involving [place]at coronary artery of [place] heart without angina pectoris,HTN, goal below 140/90 [...] Date Status NSS 0.9% 1,000 mL bolus infusionIndications:M DS (myelodysplastic syndrome), high grade (HCC),Stem cells transplant status ([facility]),Acquired hypothyroidism 1000 mL IV DAILY PRN 12/08/2021 Active bevaCIZumab (Avastin) inj 1.25 mgIndications: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, unspecified whether rodent exterminator insulin use (HCC) 1.25 mg IZ PRN 07/17/2024 07/17/20 25 Active Aflibercept (Eylea) intravitreal inj 2 mgIndications: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, unspecified whether correction insulin use (HCC) 2 mg IZ PRN 09/30/2024 09/30/20 25 Active ROPivacaine (Naropin) inj 1.5 mgIndications: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, unspecified whether rodent exterminator insulin use (HCC) 1.5 mg IJ PRN 09/30/2024 09/30/20 25 Active ROPivacaine (Naropin) inj 1.5 mgIndications: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, unspecified whether correction insulin use (HCC) 1.5 mg PERINEURAL PRN 07/17/2024 09/30/20 24 Discontinued documented as of this encounter (statuses as of 09/30/2024) Active Problems Patient Care Coordination No te Formatting of this note migh t be different from the original. Date of Transplant: 09/01/2021 Conditioning Regimen: Fludarabine / Busulfan 2 with post-transplant Cytoxan ABO/Rh: A Positive CMV status: CMV Positive--- GRID: [id number] / DID: [id number] Matched Unrelated 10/24--- DPB1 Match ABO/Rh: A [...] & Plan (04/04/2023 4:21 PM EDT): Platelets 16640 on 03/20 Questionable hematuria Urinary incontinence 09/12/2022 [...] failure. Does not have any evidence of mqhid-[id number] disease Assessment & Plan (09/23/2024 10:42 AM [...] Currently in relapse. Hemoglobin yesterday 8.8. Platelets 20005. - weekly CBC. Transfusion to maintain above [...] EDT): I received a call from nurse complex case manager in the field reporting that [...] that time. Coronary artery disease invo lving yakutat coronary artery of yakutat heart without angina pectoris 06/12/2017 Overview (06/12/2017): [...] was that I can find were from [id number] Assessment/plan: Dyslipidemia with patient currently taking Lipitor [...] documented in this encounter Progress Notes * Fernando Damon DO - 09/30/2024 10:45 AM EST [facility] [place] Nursing Notes: Deja Choi TECH 09/30/24 1103 Signed Ruth Burger is a 73 year old year old female who presents for Mod. NPDR OU. Last Office Visit: 08/28/2024 (in office), Visit date not found (telemedicine) Patient currently states no change in vision. Are you diabetic? Yes. Do you check your blood sugars daily? YES. Fasting BS this mornin mg/dl. Last Hemoglobin A1C: Lab Results Component Value Date/Time HGBA1C 6.5 (H) 05/22/2024 08:27 AM HGBA1C 7.6 (H) 11/20/2023 01:19 PM HGBA1C 8.0 (H) 12/06/2022 12:02 PM HGBA1C 6.1 (H) 10/01/2020 03:24 PM HGBA1C 8.1 (H) 02/05/2020 10:48 AM HGBA1C 7.9 (H) 10/28/2019 12:[address]? no OCT image(s), fundus of both eyes acquired and filed/scanned into chart. Base Eye Exam Visual Acuity (Snellen - Linear) Right Left Dist cc 20/70 -2 HMO Dist ph cc 20/50 Correction: Glasses Tonometry (Tonopen, 11:00 AM) Right Left Pressure 13 9 Pupils Dark Light Shape React APD Right 5.5 5 Round Minimal None Left 5 5 Round none None Visual Javier (Counting fingers) Right Left Full Restrictions Total superior temporal, inferior temporal, superior nasal, inferior nasal deficiencies Extraocular Movement Right Left Full, Ortho Full, Ortho Neuro/Psych Oriented x3: Yes Mood/Affect: Normal Dilation Both eyes: 0.5% Proparacaine @ 10:58 AM Dilation #2 Both eyes: 1.0% Mydriacyl, 2.5% Phenylephrine @ 11:02 AM Dilation Comments Patient cautioned that effects of dilation may last 2-7 hours dependant upon individual reaction. It was discussed that driving while dilated is not recommended. OCT Interpretation: OD: +irf/srf--improved 51u prior prior improved 71um prior worse OS: unable, prior showed ++CME A/P: 1. Moderate Nonproliferative Diabetic Retinopathy OU -h/o Avastin in past by Dr. Paulson -recommend HgbA1C <7, BP and lipid control. -DME OU -Avastin OU 08/28/24, 07/17/2024 -worse at 6 weeks - Eylea OU 09/30/2024 2. h/o CRVO OS -An examination for this condition was completed which is unrelated to the procedure that was performed today -monitor OS: VA still poor; t/c holding injections but high risk for NVG 3. h/o HSV OS -seen in past by Dr. Martínez -poor vision OS -on acyclovir prophylaxis 4. Cataracts OU -monitor F/u 4-6 weeks, OCT OU Fernando Damon, DO CC: PCP: Dhruv Moss MD TIMEOUT PROCEDURE: correct patient identity-YES correct procedure and consent-YES verified side and site-YES correct patient position-YES all necessary equipment/prior studies present-YES reviewed special requirements of this patient-YES PROCEDURE: Intravitreal injection of Eylea (aflibercept) 2mg OD INFORMED CONSENT: Risks, benefits and alternatives have been discussed with the patient. Risks include, but are not limited to: retinal tears, detachments, hemorrhage, glaucoma, infection, cataracts, need for more procedures and the potential risk of arterial thromboembolic events following use of intravitreal VEGF inhibitors defined as nonfatal stroke, nonfatal myocardial infarction or vascular . Patient is aware of these risks and consents to the procedure. DESCRIPTION OF PROCEDURE: The procedure site was confirmed. Topical proparacaine was applied to the surface of the eye after which subconjunctival anesthetic was administered. The area was prepped in the standard aseptic manner with 5% Betadine solution. An eyelid speculum was placed and 2mg (0.05 ml) of Eylea was injected 3.75 mm posterior to the limbus into the midvitreous cavity with a 30 gauge short needle. The eye speculum was removed, Betadine was flushed from the eye and optic nerve perfusion was insured. The patient tolerated the procedure without difficulty and was given followup instructions and instructed to use ophthalmic ointment 3x/day as needed. Fernando Damon DO, performed the procedure in its entirety. TIMEOUT PROCEDURE: correct patient identity-YES correct procedure and consent-YES verified side and site-YES correct patient position-YES all necessary equipment/prior studies present-YES reviewed special requirements of this patient-YES PROCEDURE: Intravitreal injection of Eylea (aflibercept) 2mg OS INFORMED CONSENT: Risks, benefits and alternatives have been discussed with the patient. Risks include, but are not limited to: retinal tears, detachments, hemorrhage, glaucoma, infection, cataracts, need for more procedures and the potential risk of arterial thromboembolic events following use of intravitreal VEGF inhibitors defined as nonfatal stroke, nonfatal myocardial infarction or vascular . Patient is aware of these risks and consents to the procedure. DESCRIPTION OF PROCEDURE: The procedure site was confirmed. Topical proparacaine was applied to the surface of the eye after which subconjunctival anesthetic was administered. The area was prepped in the standard aseptic manner with 5% Betadine solution. An eyelid speculum was placed and 2mg (0.05 ml) of Eylea was injected 3.75 mm posterior to the limbus into the midvitreous cavity with a 30 gauge short needle. The eye speculum was removed, Betadine was flushed from the eye and optic nerve perfusion was insured. The patient tolerated the procedure without difficulty and was given followup instructions and instructed to use ophthalmic ointment 3x/day as needed. Fernando Damon DO, performed the procedure in its entirety. documented in this encounter Nursing Notes * Deja Choi TECH - 09/30/2024 11:25 AM EST Ruth Burger to receive first Eylea 2mg Injection of the Right eye. Correct eye confirmed with patient and marked by Fernando Damon DO Eylea 2mg lot # [id number] Exp. Date: 06/2025 Ruth Burger to receive first Eylea 2mg Injection of the Left eye. Correct eye confirmed with patient and marked by Fernando Damon DO Eylea 2mg lot # [id number] Exp. Date: 09/2025 * Deja Choi TECH - 09/30/2024 10:54 AM EST Ruth Burger is a 73 year old year old female who presents for Mod. NPDR OU. Last Office Visit: 08/28/2024 (in office), Visit date not found (telemedicine) Patient currently states no change in vision. Are you diabetic? Yes. Do you check your blood sugars daily? YES. Fasting BS this mornin mg/dl. Last Hemoglobin A1C: Lab Results Component Value Date/Time HGBA1C 6.5 (H) 05/22/2024 08:27 AM HGBA1C 7.6 (H) 11/20/2023 01:19 PM HGBA1C 8.0 (H) 12/06/2022 12:02 PM HGBA1C 6.1 (H) 10/01/2020 03:24 PM HGBA1C 8.1 (H) 02/05/2020 10:48 AM HGBA1C 7.9 (H) 10/28/2019 12:[address]? no OCT image(s), fundus of both eyes acquired and filed/scanned into chart. documented in this encounter Plan of Treatment Upcoming Encounters Date Type Department Care Team (Late st Contact Info) Description 10/02/2024 7:00 AM EST Laboratory Lab Mobile Phlebotomy [facility] [address] [place] [address] [facility] [address] [place] [address] 10/08/2024 10:00 AM EST [facility] Visit [facility] [address] Marisa Pacheco, TANYA [address] [place] [address] 10/09/2024 7:00 AM EST Laboratory Lab Mobile Phlebotomy [facility] [address] [place] [address] [address] [facility] [address] [place] [address] 10/16/2024 7:00 AM EST Laboratory Lab Mobile Phlebotomy [facility] [address] [place] [address] [address] [facility] [address] [place] [address] 10/16/2024 1:45 PM EST Office Visit Hematology/Oncology [facility] [address] [place] [address] [id number] Jitendra Aguero MD [address] [place] [address] 2024 7:00 AM EST Laboratory Lab Mobile Phlebotomy [facility] [address] [place] [address] [facility] [address] [place], [place] [address] 10/30/2024 7:00 AM EST Laboratory Lab Mobile Phlebotomy [facility] [address] [place] [address] [address] [facility] [address] [place], [place] [address] 11/11/2024 2:00 PM EST Office Visit Pharmacy, [address] [place] [address] [place] [address] 11/15/2024 7:05 AM EST Laboratory Lab Mobile Phlebotomy [facility] [address] [employer] [place] [address] [facility] [address] [place], [place] [address] 11/20/2024 7:00 AM EST Laboratory Lab Mobile Phlebotomy [facility] [address] [place], [place] [address] [facility] [address] [place], [place] [address] 11/27/2024 7:00 AM EST Laboratory Lab Mobile Phlebotomy [facility] [address] [place], [place] [address] [facility] [address] [place] [address] 12/04/2024 7:00 AM EST Laboratory Lab Mobile Phlebotomy [facility] [address] [place], [place] [address] [facility] Draw [address] [place], [place] [address] 12/05/2024 9:00 AM EST Home Visit [facility] [place] [address] [place] [address] Tremaine Morgan PA-C [address] [place] [address] 12/11/2024 7:00 AM EST Laboratory Lab Mobile Phlebotomy [facility] [address] [employer] [place] [address] [facility] [address] [facility] [place] [address] 12/18/2024 7:00 AM EST Laboratory Lab Mobile Phlebotomy [facility] [address] [place] [address] [facility] [address] [facility] [place] [address] 12/24/2024 2:30 PM EST Nurse Only Ancillary [address] [place] [address] [place], Nurse [address] [place] [address] 12/25/2024 7:00 AM EST Laboratory Lab Mobile Phlebotomy [facility] [address] [address] [place] [address] [facility] [address] [place] [address] 01/01/2025 7:00 AM EST Laboratory Lab Mobile Phlebotomy [facility] [address] [facility] [place] [address] [facility], [facility] Draw [address] [place] [address] 01/08/2025 7:00 AM EST Laboratory Lab Mobile Phlebotomy [facility] [address] [employer] [place] [address] [facility] [address] [place] [address] 01/13/2025 11:40 AM EST Office Visit Family Medicine [address] [place] [phone] Dhruv Moss MD [address] [place] [address] [place] [address] 01/15/2025 7:00 AM EST Laboratory Lab Mobile Phlebotomy [facility] [address] [facility] [address] [facility] [address] [facility] [place] [address] 01/22/2025 7:00 AM EDT Laboratory Lab Mobile Phlebotomy [facility] [address] [place] [address] [facility], [facility] Draw [address] [facility] [place] [address] 01/29/2025 7:00 AM EDT Laboratory Lab Mobile Phlebotomy [facility] [address] [facility] [place] [address] [facility] [address] [facility] [place] [address] 02/05/2025 7:00 AM EDT Laboratory Lab Mobile Phlebotomy [facility] [address] [place] [address] [facility] [address] [facility] [address] 02/12/2025 7:00 AM EDT Laboratory Lab Mobile Phlebotomy [facility] [address] [place] [address] [facility] [address] [facility] [address] 02/19/2025 7:00 AM EDT Laboratory Lab Mobile Phlebotomy [facility] [address] [facility] [place] [address] [facility] [address] [facility] [address] 02/26/2025 7:00 AM EDT Laboratory Lab Mobile Phlebotomy [facility] [address] [facility] [place] [address] [facility] [address] [facility] [place] [address] 03/05/2025 7:00 AM EDT Laboratory Lab Mobile Phlebotomy [facility] [address] [place] [address] [facility] [address] [facility] [address] 03/12/2025 7:00 AM EDT Laboratory Lab Mobile Phlebotomy [facility] [address] [place] [address] [facility], [facility] [address] [place] [address] 03/19/2025 7:00 AM EDT Laboratory Lab Mobile Phlebotomy [facility] [address] [place] [address] [facility] [address] [place] [address] 03/26/2025 7:00 AM EDT Laboratory Lab Mobile Phlebotomy [facility] [address] [place] [address] [facility] [address] [place] [address] 04/02/2025 7:00 AM EDT Laboratory Lab Mobile Phlebotomy [facility] [address] [place] [address] [facility], [facility] [address] [place] [address] 04/09/2025 7:00 AM EDT Laboratory Lab Mobile Phlebotomy [facility] [address] [place] [address] [facility] [address] [place] [address] 04/16/2025 7:00 AM EDT Laboratory Lab Mobile Phlebotomy [facility] [address] [place] [address] [facility] [address] [place] [address] 04/23/2025 7:00 AM EDT Laboratory Lab Mobile Phlebotomy [facility] [address] [place] [address] [facility] [address] [place] [address] 04/30/2025 7:00 AM EDT Laboratory Lab Mobile Phlebotomy [facility] [address] [place] [address] [facility] [address] [place] [address] 05/07/2025 7:00 AM EDT Laboratory Lab Mobile Phlebotomy [facility] [address] [place] [address] [facility] [address] [place] [address] 05/14/2025 7:00 AM EDT Laboratory Lab Mobile Phlebotomy [facility] [address] [place] [address] [facility] [address] [place] [address] 05/21/2025 7:00 AM EDT Laboratory Lab Mobile Phlebotomy [facility] [address] [place] [address] [facility] [address] [place] [address] 07/21/2025 1:30 PM EDT Imaging Radiology [address] [place] [address] 08/04/2025 1:20 PM EDT Office Visit Family Medicine [address] [place] [phone] Dhruv Moss MD [address] [place] [address] [place] [address] Scheduled Orders Name Type Priority Associated Diagnoses Orde r Schedule RETINA SCAN DIAGNOSTIC IMAGE, POSTERIOR Procedures Routine 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, unspecified whether rodent exterminator insulin use (HCC) Ordered: 09/30/2024 FUNDUS PHOTOGRAPHY Procedures Routine 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, unspecified whether rodent exterminator insulin use (HCC) Ordered: 09/30/2024 Health Maintenance Due Date Last Done Comments *BISPHONATE OR OTHER ACCEPTABLE MEDICATION NEEDED FOR OSTEOPOROSIS (REFER TO SMARTSET #1146) 11/06/2023 Colonoscopy 05/06/2024 05/06/2019, 05/06/2019 CKD PHOS USE SMARTSET 94311 06/07/202405/14, 05/31/2023, 05/08/2023, Additional history exists COVID-19 [...] Additional history exists CKD HGB USE SMARTSET 25701 09/25/202509/25, 09/25/2024, 09/18/2024, Additional history exists DTap/Tdap Vaccines (3 - Td or Tdap) 11/10/2026 11/10/2016, 03/30/2011 VITAMIN D LEVEL ONCE IN A LIFETIME-USE SMARTSET# [id number] Completed 05/11/2015 RETIRED - COLONOSCOPY-EVERY 5 YRS [...] this encounter Medical Devices Implanted Type Area Blow Down Helper Device Identifier Shelf Expiration Date Model / Serial / Lot Port Pwr Mri Isp Profile - [id number] Implanted:Qty: 1 on 07/24/2020 by Akash Castillo MD at [facility] Right: Chest CR BARD : PERIPHERAL VASCULAR 04/12/2021 [id number] / / [id number] documented as of this encounter Visit Diagnoses [...] unspecified laterality, unspecified retinopathy severity, unspecified whether rodent exterminator insulin use (HCC) HTN, goal below 140/90 Unspecified essential hypertension Coronary artery disease involving y[place]utat coronary artery of y[place]utat heart without angina pectoris Acquired hypothyroidism Unspecified hypothyroidism Gastro-esophageal reflux disease without esophagitis Esophageal reflux Dyslipidemia, goal LDL below 70 Other and unspecified hyperlipidemia Coronary artery disease involving y[place] coronary artery of y[place]ut[place] heart without angina pectoris- Primary MDS (myelodysplastic [...] Myelodysplastic syndrome, unspecified Coronary artery disease involving y[place] coronary artery of yakutat heart without angina pectoris HTN, goal below [...] 8.0% ([facility]) Age-related osteoporosis without current pathological fracture Senile osteoporosis MDS (myelodysplastic syndrome), high grade (HCC)- Primary High grade myelodysplastic syndrome lesions Stem cells transplant status ([facility]) 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 Type 2 diabetes mellitus with hemoglobin A1c goal of less than 8.0% ([facility]) Advanced care planning/counseling discussion Other specified counseling MDS (myelodysplastic syndrome), high grade (HCC)- Primary High grade myelodysplastic syndrome lesions Chronic kidney disease, stage 3a ([facility]) Type 2 diabetes mellitus with both eyes affected by moderate nonproliferative retinopathy and macular edema, with long-term current use of insulin ([facility]) Advanced care planning/counseling discussion Other specified counseling Ambulatory dysfunction 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, unspecified whether rodent exterminator insulin use ([facility])- Primary Screening mammogram for breast cancer documented in this encounter Administered Medications Active Administered Medications - up to 3 most recent administrations Medication Order MAR Action Action Date Dose Rate Site Aflibercept (Eylea) intravitreal inj 2 mg 2 mg, Intravitreal, PRN Other, Starting on Mon09/30/24 at 1137, Until Mon09/30/25 at 1136, For 365 daysIndications: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, unspecified whether rodent exterminator insulin use (HCC) Given 09/30/2024 11:46 AM EST 2 mg Eye Right Given 09/30/2024 11:45 AM EST 2 mg E ye Left ROPivacaine (Naropin) inj 1.5 mg 1.5 mg, Injection, PRN Other, Starting on Mon09/30/24 at 1137, Until Mon09/30/25 at 1136, For 365 daysIndications: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, unspecified whether correction insulin use (HCC) Given 09/30/2024 11:46 AM EST 1.5 mg Eye Right Given 09/30/2024 11:45 AM EST 1.5 mg E ye Left documented in this encounter Advance Directives * [...] Agents on File Name Relationship Healthcare Agent [facility] Communication Juanita Silva Adult Child Health Care Agent Care Teams Host/Hostess Head Relationship Specialty Start Date End Date Dhruv Moss MD [address] [place], [place] [address] [id number] PCP - General Family Medicine 08/27/21 documented as of this encounter
--- OUTSIDE RECORDS SUMMARY | 2024-10-10 00:26 | External Medical Summary | Summary of Care ---
Author Name Unknown Organization [facility] Address [address] [facility] [place] [address] Phone [phone] Care Team Providers Care Wildland Fire Fighter Name Role Phone Dhruv Moss MD Primary Care Provide r Encounter Details Date Type Department Care Team (Late st Contact Info) Description 09/19/2024 Population Health External Data Unspecified Department Allergies No known active allergiesdocumented as of this encounter (statuses as of 09/26/2024) Medications Diclofenac Sodium 1 % External GelIndications:kne e pain Apply topically to affected area . Apply to bilateral knees Active Prochlorperazine Maleate 10 MG Oral Tablet (Compazine)Indicat ions:H/O allogeneic bone marrow transplant (HCC) Take by mouth 1 Tablet every 6 hours as needed for Nausea. 60 Tablet 3 12/09/19 22 Active Network Chemistry Verio Flex System w/Device Kit Use as directed . 12/16/19 22 Active Acetaminophen 500 MG Oral Tablet Take 1 Tablet by mouth every 6 hours as needed. Active Magnesium 100 MG Oral Capsule Take 1 Capsule by mouth in the morning. Active Pen [place] 32G X 4 MM Use as directed. 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 Date of Transplant: 09/01/2021 Conditioning Regimen: Fludarabine / Busulfan 2 with post-transplant Cytoxan ABO/Rh: A Positive CMV status: CMV Positive--- GRID: [id number] / DID: [id number] Matched Unrelated 10/24--- DPB1 Match ABO/Rh: A [...] & Plan (04/04/2023 4:21 PM EDT): Platelets 35436 on 03/20 Questionable hematuria Urinary incontinence 09/12/2022 [...] failure. Does not have any evidence of cqoxx-hnuded-sgmo disease Assessment & Plan (09/23/2024 10:42 AM [...] Currently in relapse. Hemoglobin yesterday 8.8. Platelets 09269. - weekly CBC. Transfusion to maintain above [...] received a call from nurse case management coordinator in the field reporting that over the [...] that time. Coronary artery disease invo lving kletsel dehe wintun coronary artery of k[place]sel de[place] heart without angina pectoris 06/12/2017 Overview (06/12/2017): [...] was that I can find were from [id number] Assessment/plan: Dyslipidemia with patient currently taking Lipitor [...] as of this encounter (statuses as of 09/26/2024) Resolved Problems Problem Noted Date Diagnosed Date [...] as of this encounter (statuses as of 09/26/2024) Immunizations Name Administration Dates Next Due COVID-19 [...] 09/30/2024 10:45 AM EST Office Visit Ophthalmology, [facility] [address] [place] [address] Fernando Damon, DO [address] [place] [address] 10/02/2024 7:00 AM EST Laboratory [facility] [address] [place] [address] [facility] [address] [place] [address] 10/08/2024 10:00 AM EST [facility] Visit [facility], [facility] [address] [place] [address] Marisa Pacheco, TANYA [address] [place] [address] 10/09/2024 7:00 AM EST Laboratory [facility] [address] [place] [address] [facility] [address] [place] [address] 10/16/2024 7:00 AM EST Laboratory [facility] [address] [place] [address] [facility] [address] [place] [address] 10/16/2024 1:45 PM EST Office Visit Hematology/Oncology [facility] [place] [address] [facility] [place] [phone] Jitendra Aguero MD [address] [place] [address] 2024 7:00 AM EST Laboratory [facility] [address] [place] [address] [facility] [address] [place] [address] 10/30/2024 7:00 AM EST Laboratory [facility] [address] [place] [address] [facility] [address] [place] [address] 11/11/2024 2:00 PM EST Office Visit Pharmacy, [address] [place] [address] [place] [address] 11/15/2024 7:05 AM EST Laboratory [facility] [address] [place] [address] [facility] [address] [place], [place] [address] 11/20/2024 7:00 AM EST Laboratory [facility] [address] [place] [address] [facility] [address] [place] [address] 11/27/2024 7:00 AM EST Laboratory [facility] [address] [place], [place] [address] [facility] [address] [place] [address] 12/04/2024 7:00 AM EST Laboratory [facility] [address] [employer], [place] [address] [facility] [address] [place] [address] 12/05/2024 9:00 AM EST [facility] [address] [facility] [place] [address] [facility] [address] [place] [address] 12/11/2024 7:00 AM EST Laboratory [facility] [address] [place] [address] [facility] [address] [place] [address] 12/18/2024 7:00 AM EST Laboratory [facility] [address] [place], [place] [address] [facility] [address] [place] [address] 12/24/2024 2:30 PM EST Nurse Only Ancillary [address] [place] [address] Cristina, Nurse [address] [place] [address] 12/25/2024 7:00 AM EST Laboratory [facility] [email or web address] [place] [address] [facility] [address] [place] [address] 01/01/2025 7:00 AM EST Laboratory [facility] [address] [place] [address] [facility] [address] [place] [address] 01/08/2025 7:00 AM EST Laboratory [facility] [address] [place] [address] [facility] [address] [place], [place] [address] 01/13/2025 11:40 AM EST Office Visit Family Medicine [address] [place] [phone] Dhruv Moss MD [address] [place] [address] [place] [address] 01/15/2025 7:00 AM EST Laboratory [facility] [address] [place] [address] [facility] [address] [place] [address] 01/22/2025 7:00 AM EDT Laboratory [facility] [address] [place] [address] [facility] [address] [place] [address] 01/29/2025 7:00 AM EDT Laboratory [facility] [address] [place] [address] [facility] [address] [place] [address] 02/05/2025 7:00 AM EDT Laboratory [facility] [address] [place] [address] [facility] [address] [place] [address] 02/12/2025 7:00 AM EDT Laboratory [facility] [address] [place] [address] [facility] [address] [place] [address] 02/19/2025 7:00 AM EDT Laboratory [facility] [address] [place] [address] [facility] [address] [place] [address] 02/26/2025 7:00 AM EDT Laboratory [facility] [address] [place] [address] [facility] [address] [place] [address] 03/05/2025 7:00 AM EDT Laboratory [facility] [address] [place] [address] [facility] [address] [place] [address] 03/12/2025 7:00 AM EDT Laboratory [facility] [address] [place] [address] [facility] [address] [place] [address] 03/19/2025 7:00 AM EDT Laboratory [facility] [address] [place] [address] [facility] [address] [place] [address] 03/26/2025 7:00 AM EDT Laboratory [facility] [address] [facility] [place] [address] [facility] [address] [facility] [place] [address] 04/02/2025 7:00 AM EDT Laboratory [facility]bot[facility] [address] [facility] [place] [address] [facility] [address] [facility] [place] [address] 04/09/2025 7:00 AM EDT Laboratory [facility] [address] [facility] [place] [address] [facility] [address] [facility] [place] [address] 04/16/2025 7:00 AM EDT Laboratory [facility] [address] [place] [address] [facility] [address] [place] [address] 04/23/2025 7:00 AM EDT Laboratory [facility] [address] [facility] [place] [address] [facility] [address] [facility] [place] [address] 04/30/2025 7:00 AM EDT Laboratory [facility] [address] [facility] [place] [address] [facility] [address] [facility] [place] [address] 05/07/2025 7:00 AM EDT Laboratory [facility] [address] [facility] [place] [address] [facility] [address] [facility] [place] [address] 05/14/2025 7:00 AM EDT Laboratory [facility] [address] [place] [address] [facility] [address] [place] [address] 05/21/2025 7:00 AM EDT Laboratory Lab [facility] Phlebotomy [facility] [address] [facility] [place] [address] [facility] [email or web address] [place] [address] 07/21/2025 1:30 PM EDT Imaging Radiology [address] [place] [address] 08/04/2025 1:20 PM EDT Office Visit Family Medicine [address] [place] [phone] Dhruv Moss MD [address] [place] [address] [place] [address] Health Maintenance Due Date Last Done Comments *BISPHONATE OR OTHER ACCEPTABLE MEDICATION NEEDED FOR OSTEOPOROSIS (REFER TO SMARTSET #1146) 11/06/2023 Colonoscopy 05/06/2024 05/06/2019, 05/06/2019 CKD PHOS USE SMARTSET 62544 06/07/202405/14, 05/31/2023, 05/08/2023, Additional history exists COVID-19 [...] Additional history exists CKD HGB USE SMARTSET 14565 09/25/202509/25, 09/25/2024, 09/18/2024, Additional history exists DTap/Tdap Vaccines (3 - Td or Tdap) 11/10/2026 11/10/2016, 03/30/2011 VITAMIN D LEVEL ONCE IN A LIFETIME-USE SMARTSET# [id number] Completed 05/11/2015 RETIRED - COLONOSCOPY-EVERY 5 YRS [...] this encounter Medical Devices Implanted Type Area Wild Animal Caretaker Device Identifier Shelf Expiration Date Model / Serial / Lot Port Pwr Mri Isp Profile - [id number] Implanted:Qty: 1 on 07/24/2020 by Akash Castillo MD at [facility] Right: Chest CR BARD : PERIPHERAL VASCULAR 04/12/2021 [id number] / / [id number] documented as of this encounter Advance Directives [...] Adult Child Health Care Agent Care Teams Wildland Fire Fighter Relationship Specialty Start Date End Date Dhruv Moss MD [address] [place] [address] [place] [address] PCP - General Family Medicine 08/27/21 documented as of this encounter
--- OUTSIDE RECORDS SUMMARY | 2024-10-10 00:26 | External Medical Summary | Summary of Care ---
Author Name Unknown Organization [facility] Address [address] [facility] [place] [address] Phone [phone] Care Team Providers Care Dive Superintendent Name Role Phone Dhruv Moss MD Primary Care Provide r Reason for Visit * Reason Comments Follow Up * Precert (Within 10 days (routine)) - Authorized Specialty Diagnoses / Procedures Referred By Vern ayala Referred To Contact Ophthalmology Diagnoses Type 2 diabetes mellitus with moderate nonproliferative diabetic retinopathy with macular edema, bilateral (HCC) Procedures OR AFLIBERCEPT INJECTION OR INTRAVITREAL NJX PHARMACOLOGIC AGT SPX Fernando Damon DO [address] [place] [address] Phone: tel: fax: [facility]hthal[facility], [facility] [address] Phone: tel: fax: Referral ID Status Reason Start Date Expiration Date V isits Requested Visits Authorized [id number] Authorized Precert 11/27/2020 11/12/2099 [id number] Encounter Details Date Type Department Care Team (Late st Contact Info) Description 09/30/2024 10:45 AM EST Office Visit Ophthalmology, [facility] [address] [facility] [place] [address] Fernando Damon DO [address] [place] [address] 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 60 Tablet 3 12/09/19 22 Active Korrioio Flex System w/Device Kit Use as directed . 12/16/19 22 Active Acetaminophen 500 MG Oral Tablet Take 1 Tablet by mouth every 6 hours as needed. Active Magnesium 100 MG Oral Capsule Take 1 Capsule by mouth in the morning. Active Pen [place] 32G X 4 MM Use as directed. Use to inject insulin up to 4 times daily. 400 Each 3 04/09/2024 7:20 AM EDT 04/05/20 24 Active Atorvastatin Calcium 40 MG Oral Tablet (Lipitor)Indicatio ns:Dyslipidemia, goal LDL below 70 TAKE ONE TABLET BY MOUTH IN THE MORNING 90 Tablet 2 04/22/20 24 Active [employer] Verio In Vitro Strip (Glucose Blood)Indications: Type 2 diabetes mellitus with hemoglobin A1c goal of less than 8.0% ([facility]) Use to test blood sugar three times a day DXe11.9 300 Strip 3 04/22/20 24 Active Acyclovir 800 MG Oral Tablet (Zovirax)Indicatio ns:MDS (myelodysplastic syndrome), high grade ([facility]) TAKE ONE TABLET BY MOUTH TWICE DAILY in the morning and before bedtime 60 Tablet 11 05/13/20 24 Active Isosorbide Mononitrate ER 30 MG Oral Tablet Extended Release 24 Hour (Imdur)Indications :Coronary artery disease involving shoalwater coronary artery of [...] (HCC),Stem cells transplant status ([facility]),Acquired hypothyroidism 1000 mL IV DAILY PRN 12/08/2021 Active bevaCIZumab (Avastin) inj 1.25 mgIndications: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, unspecified whether long wall shear operator insulin use (HCC) 1.25 mg IZ [...] eyes and macular edema, unspecified whether long wall shear operator insulin use (HCC) 1.5 mg IJ PRN 09/30/2024 09/30/20 25 Active ROPivacaine (Naropin) inj 1.5 mgIndications: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 Does not have any evidence of sptbj-milrbq-yuhd disease Assessment & Plan (09/23/2024 10:42 AM [...] Currently in relapse. Hemoglobin yesterday 8.8. Platelets 24829. - weekly CBC. Transfusion to maintain above [...] I received a call from nurse case packer in the field reporting that over the [...] that time. Coronary artery disease invo lving shoalwater coronary artery of shoalwater heart without angina pectoris 06/12/2017 Overview (06/12/2017): [...] was that I can find were from [id number] Assessment/plan: Dyslipidemia with patient currently taking Lipitor [...] Damon DO - 09/30/2024 10:45 AM EST [facility] [place] Nursing Notes: Deja [...] documented in this encounter Nursing Notes * eDja Choi TECH - 09/30/2024 11:25 AM EST Ruth Burger to receive first Eylea 2mg Injection of the Right eye. Correct eye confirmed with patient and marked by Fernadno Damon DO Eylea 2mg lot # [id number] Exp. Date: 06/2025 Ruth Burger to receive first Eylea 2mg Injection of the Left eye. Correct eye confirmed with patient and marked by Fernando Damon DO Eylea 2mg lot # [id number] Exp. Date: 09/2025 * Deja Choi TECH [...] EST [facility] [address] [place] [address] [facility] [address] [place] [address] 10/08/2024 10:00 AM EST [facility] Visit [facility] [address] [facility] [address] Marisa Pacheco, TANYA [address] [facility] [place] [address] 10/09/2024 7:00 AM EST [facility] [address] [place] [address] [facility] [address] [place] [address] 10/16/2024 7:00 AM EST [facility] [address] [place] [address] [address] [address] [facility] [address] [place] [address] 10/16/2024 1:45 PM EST Office Visit Hematology/Oncology [facility] [address] [place] [phone] Jitendra Aguero MD [address] [place] [address] 2024 7:00 AM EST [facility] [address] [place] [address] [facility] [address] [place], [place] [address] 10/30/2024 7:00 AM EST [facility] [address] [place] [address] [address] [facility] [address] [place], [place] [address] 11/11/2024 2:00 PM EST Office Visit Pharmacy, [address] [place] [address] [place] [address] 11/15/2024 7:05 AM EST [facility] [address] [place] [address] [facility] [address] [place], [place] [address] 11/20/2024 7:00 AM EST [facility] [address] [place], [place] [address] [facility] [address] [place] [address] [place], [place] [address] 11/27/2024 7:00 AM EST [facility] [address] [place], [place] [address] [facility] [address] [place] [address] 12/04/2024 7:00 AM EST [facility] [address] [place], [place] [address] [facility] [address] [place], [place] [address] 12/05/2024 9:00 AM EST Home Visit [facility] [place], [facility] [address] [place] [address] Tremaine Morgan PA-C [address] [place] [address] 12/11/2024 7:00 AM EST [facility] [address] [place] [address] [facility] [address] [facility] [place] [address] 12/18/2024 7:00 AM EST [facility] [address] [place] [address] [facility] [address] [facility] [place] [address] 12/24/2024 2:30 PM EST Nurse Only Ancillary [address] [place] [address] [place], Nurse [address] [place] [address] 12/25/2024 7:00 AM EST [facility] [address] [place] [address] [facility] [address] [place] [address] [place] [address] 01/01/2025 7:00 AM EST [facility] [address] [facility] [place] [address] [facility] [address] [place] [address] 01/08/2025 7:00 AM EST [facility] [address] [place] [address] [facility] [address] [place] [address] 01/13/2025 11:40 AM EST Office Visit Family Medicine [address] [place] [phone] Dhruv Moss MD [address] [place] [address] [place] [address] 01/15/2025 7:00 AM EST [facility] [address] [facility] [place] [address] [facility] [address] [facility] [place] [address] 01/22/2025 7:00 AM EDT [facility] [address] [place] [address] [facility] [address] [facility] [place] [address] 01/29/2025 7:00 AM EDT [facility] [address] [facility] [place] [address] [facility] [address] [facility] [place] [address] 02/05/2025 7:00 AM EDT [facility] [address] [place] [address] [facility] [address] [place] [address] 02/12/2025 7:00 AM EDT [facility] [address] [place] [address] [facility] [address] [place] [address] 02/19/2025 7:00 AM EDT [facility] [address] [facility] [place] [address] [facility] [address] [place] [address] 02/26/2025 7:00 AM EDT [facility] [address] [facility] [place] [address] [facility] [address] [facility] [place] [address] 03/05/2025 7:00 AM EDT [facility] [address] [place] [address] [facility] [address] [place] [address] 03/12/2025 7:00 AM EDT [facility] [address] [place] [address] [facility] [address] [place] [address] 03/19/2025 7:00 AM EDT [facility] [address] [place] [address] [facility] [address] [place] [address] 03/26/2025 7:00 AM EDT [facility] [address] [place] [address] [facility] [address] [place] [address] 04/02/2025 7:00 AM EDT [facility] [address] [place] [address] [facility] [address] [place] [address] 04/09/2025 7:00 AM EDT [facility] [address] [place] [address] [facility] [address] [place] [address] 04/16/2025 7:00 AM EDT [facility] [address] [place] [address] [facility] [address] [place] [address] 04/23/2025 7:00 AM EDT [facility] [address] [place] [address] [facility] [address] [place] [address] 04/30/2025 7:00 AM EDT [facility] [address] [place] [address] [facility] [address] [place] [address] 05/07/2025 7:00 AM EDT [facility] [address] [place] [address] [facility] [address] [place] [address] 05/14/2025 7:00 AM EDT [facility] [address] [place] [address] [facility] [address] [place] [address] 05/21/2025 7:00 AM EDT [facility] [address] [place] [address] [facility] [address] [place] [address] 07/21/2025 1:30 PM EDT Imaging Radiology [address] [place] [address] 08/04/2025 1:20 PM EDT Office Visit Family Medicine [address] [place] [phone] Dhruv Moss MD [address] [place] [address] [place] [address] Scheduled Orders Name Type Priority Associated Diagnoses Orde r Schedule RETINA SCAN DIAGNOSTIC IMAGE, POSTERIOR Procedures Routine 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, unspecified whether long wall shear operator insulin use (HCC) Ordered: 09/30/2024 FUNDUS PHOTOGRAPHY Procedures Routine 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, unspecified whether long wall shear operator insulin use (HCC) Ordered: 09/30/2024 Health Maintenance Due Date Last Done Comments *BISPHONATE OR OTHER ACCEPTABLE MEDICATION NEEDED FOR OSTEOPOROSIS (REFER TO SMARTSET #1146) 11/06/2023 Colonoscopy 05/06/2024 05/06/2019, 05/06/2019 CKD PHOS USE SMARTSET 24890 06/07/202405/14, 05/31/2023, 05/08/2023, Additional history exists COVID-19 [...] Additional history exists CKD HGB USE SMARTSET 23487 09/25/202509/25, 09/25/2024, 09/18/2024, Additional history exists DTap/Tdap Vaccines (3 - Td or Tdap) 11/10/2026 11/10/2016, 03/30/2011 VITAMIN D LEVEL ONCE IN A LIFETIME-USE SMARTSET# [id number] Completed 05/11/2015 RETIRED - COLONOSCOPY-EVERY 5 YRS [...] this encounter Medical Devices Implanted Type Area Bullet Maker Device Identifier Shelf Expiration Date Model / Serial / Lot Port Pwr Mri Isp Profile - [id number] Implanted:Qty: 1 on 07/24/2020 by Akash Castillo MD at OR [facility] Right: Chest CR BARD : PERIPHERAL VASCULAR 04/12/2021 [id number] / / [id number] documented as of this encounter Visit Diagnoses [...] unspecified laterality, unspecified retinopathy severity, unspecified whether long wall shear operator insulin use (HCC) HTN, goal below 140/90 Unspecified essential hypertension 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 Acquired hypothyroidism Unspecified hypothyroidism Gastro-esophageal reflux disease without esophagitis Esophageal reflux Dyslipidemia, goal LDL below 70 Other and unspecified hyperlipidemia 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- Primary MDS (myelodysplastic [...] Myelodysplastic syndrome, unspecified Coronary artery disease involving shoalwater coronary artery [...] of less than 8.0% ([facility]) Age-related osteoporosis without current pathological fracture Senile osteoporosis MDS (myelodysplastic syndrome), high grade (HCC)- Primary High grade myelodysplastic syndrome lesions Stem cells transplant status ([facility]) 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 Type 2 diabetes mellitus with hemoglobin A1c goal of less than 8.0% ([facility]) Advanced care planning/counseling discussion Other specified counseling MDS (myelodysplastic syndrome), high grade (HCC)- Primary High grade myelodysplastic syndrome lesions Chronic kidney disease, stage 3a ([facility]) Type 2 diabetes mellitus with both eyes affected by moderate nonproliferative retinopathy and macular edema, with long-term current use of insulin ([facility]) Advanced care planning/counseling discussion Other specified counseling Ambulatory dysfunction 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, unspecified whether long wall shear operator insulin use ([facility])- Primary Screening mammogram for breast cancer documented [...] eyes and macular edema, unspecified whether long wall shear operator insulin use (HCC) Given 09/30/2024 11:46 AM EST 2 mg Eye Right Given 09/30/2024 11:45 AM EST 2 mg E ye Left ROPivacaine (Naropin) inj 1.5 mg 1.5 mg, Injection, PRN Other, Starting on Mon09/30/24 at 1137, Until Mon09/30/25 at 1136, For 365 daysIndications: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
--- OUTSIDE RECORDS SUMMARY | 2024-10-10 00:26 | External Medical Summary | Summary of Care ---
Author Name Unknown Organization [facility] [address] [facility] [address] Phone [phone] Care Team Providers Care Multimedia Services Coordinator Name Role Phone Dhruv Moss MD Primary Care Provide r Reason for Visit * Reason Onset Date Comments Test Results Lab 09/26/2024 Encounter Details Date Type Department Care Team (Late st Contact Info) Description 09/26/2024 Telephone Hematology/Oncology [facility] [address] [place] [address] Jitendra Aguero MD [address] [facility] [address] Test Results Lab Allergies No known active [...] Nausea. 60 Tablet 3 12/09/19 22 Active [employer] Flex System w/Device Kit Use as directed . 12/16/19 22 Active Acetaminophen 500 MG Oral Tablet Take 1 Tablet by mouth every 6 hours as needed. Active Magnesium 100 MG Oral Capsule Take 1 Capsule by mouth in the morning. Active Pen Solo 32G X 4 MM Use as directed. 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 Does not have any evidence of zyyrp-tqboka-gjte disease Assessment & Plan (09/23/2024 10:42 AM [...] Currently in relapse. Hemoglobin yesterday 8.8. Platelets 12105. - weekly CBC. Transfusion to maintain above [...] EDT): I received a call from nurse high risk case manager in the field reporting that [...] that time. Coronary artery disease invo lving [place] coronary artery of [place] heart without angina pectoris 06/12/2017 Overview (06/12/2017): [...] was that I can find were from [id number] Assessment/plan: Dyslipidemia with patient currently taking Lipitor [...] mRNA, LNP-s, No Pre serve, 2-Dose Series (NeoReach) 02/05/2021,01/08/2021 COVID-19, LNP-s, No Preserve , Ye-sucrose, [...] Telephone Encounter - Makenzie Barth LPN - 09/26/2024 7:35 AM EST Called and spoke with patient's spouse, Roberto, reviewed patient's lab results with him; Hgb: 5.8 Plt: 4 He verbalized understanding, he denies pain has any bleeding but states she is "very tired". He states he is agreeable to her having the transfusions. He denies any questions or concerns at this time. Patient to receive 2 unit of prbc. 1 unit of platelets. Called [facility] blood bank. Spoke with Carissa. Spoke with Margoth in [place]. Called [facility] central scheduling. Patient scheduled for today at 09:30 am. Patient verbalized understanding of appt time. Faxed order to INU/ blood bank. * Telephone Encounter - Makenzie Barth LPN - 09/26/2024 7:31 AM EST Left message for patient's daughter's voicemail, return number provided. * Telephone Encounter - Makenzie Barth LPN - 09/26/2024 7:23 AM EST ----- Message from Jitendra Aguero MD sent at 09/26/2024 6:16 AM EST ----- Blood workup done on 09/25/2024: -WBC 86994, Hemoglobin and hematocrit -5.8/18.7, Platelet count of 4000. Would [facility] in this encounter Plan of Treatment Upcoming Encounters Date Type Department Care Team (Late st Contact Info) Description 09/30/2024 10:45 AM EST Office Visit Ophthalmology, [facility] [address] [facility] [place] [address] Fernando Damon, [address] [place] [address] 10/02/2024 7:00 AM EST Laboratory Lab [facility] [address] [place], [place] [address] [facility], [facility] [address] [facility] [place], [place] [address] 10/08/2024 10:00 AM EST Home Visit [facility] [place] [address] Marisa Pacheco, TANYA [address] [place] [address] 10/09/2024 7:00 AM EST Laboratory Lab [facility]lebot[facility] [address] [place], [place] [address] [facility], [facility] [address] [place] [employer] [place], [place] [address] 10/16/2024 7:00 AM EST Laboratory Lab [facility]lebot[facility] [address] [place], [place] [address] [facility], [facility] [address] [place] [address] [place], [place] [address] 10/16/2024 1:45 PM EST Office Visit Hematology/Oncology [facility] [address] [facility] [place], [place] [phone] Jitendra Aguero MD [address] [facility] [place] [address] 2024 7:00 AM EST Laboratory Lab [facility]lebot[facility] [address] [place], [place] [address] [facility], [facility] [address] [place] [address] 10/30/2024 7:00 AM EST Laboratory Lab [facility]lebot[facility] [address] [place], [place] [address] [facility], [facility] [address] [place], [place] [address] 11/11/2024 2:00 PM EST Office Visit Pharmacy, [address] [place] [address] [place] [address] 11/15/2024 7:05 AM EST Laboratory Lab [facility]lebot[facility] [address] [place] [address] [facility], [facility] [address] [place] [address] 11/20/2024 7:00 AM EST Laboratory Lab [facility] Phlebotomy [facility] [address] [place] [address] [facility], [facility] [address] [place], [place] [address] 11/27/2024 7:00 AM EST Laboratory Lab [facility] Phlebotomy [facility] [address] [place] [address] [facility], [facility] [address] [place], [place] [address] 12/04/2024 7:00 AM EST Laboratory [facility]lebot[facility] [address] [place], [place] [address] [facility], [facility] [address] [place], [place] [address] 12/05/2024 9:00 AM EST [facility] [address] [place] [address] Tremaine Morgan PA-C [address] [place] [address] 12/11/2024 7:00 AM EST Laboratory Lab [facility] Phlebotomy [facility] [address] [place] [address] [facility], [facility] [address] [place], [place] [address] 12/18/2024 7:00 AM EST Laboratory [facility]lebot[facility] [address] [place], [place] [address] [facility], [facility] [address] [place] [address] 12/24/2024 2:30 PM EST Nurse Only Ancillary [address] [place] [address] [place], Nurse Annual [address] [place] [address] 12/25/2024 7:00 AM EST Laboratory [facility] [address] [place] [address] [facility], [facility] [address] [place] [address] 01/01/2025 7:00 AM EST Laboratory Lab [facility] Phlebotomy [facility] [address] [place] [address] M[facility], [facility] [address] [place] [address] 01/08/2025 7:00 AM EST Laboratory Lab [facility]lebot[facility] [address] [place], [place] [address] [facility], [facility] [address] [place] [address] 01/13/2025 11:40 AM EST Office Visit Family Medicine [address] [place] [phone] Dhruv Moss MD [address] [place] [address] [place] [address] 01/15/2025 7:00 AM EST Laboratory Lab [facility]lebot[facility] [address] [place] [address] M[facility], [facility] [address] [place], [place] [address] 01/22/2025 7:00 AM EDT Laboratory Lab [facility] Phlebotomy [facility] [address] [place] [address] Mvmg, [facility] [address] [facility] [place] [address] 01/29/2025 7:00 AM EDT Laboratory Lab Mobile Phlebotomy [facility] [address] [facility] [place] [address] Mvmg, Gml [facility] Draw [address] [place] [address] 02/05/2025 7:00 AM EDT Laboratory Lab Mobile Phlebotomy [facility] [address] [place] [address] Mvmg, Gml [facility] Draw [address] [place] [address] 02/12/2025 7:00 AM EDT Laboratory Lab [facility] Phlebotomy [facility] [address] [facility] [place] [address] Mvmg, Gml [facility] Draw [address] [place] [address] 02/19/2025 7:00 AM EDT Laboratory Lab Mobile Phlebotomy [facility] [address] [facility] [place] [address] Mvmg, Gml [facility] Draw [address] [place] [address] 02/26/2025 7:00 AM EDT Laboratory Lab Mobile Phlebotomy [facility] [address] [facility] [place] [address] Mvmg, Gml [facility] [address] [place] [address] 03/05/2025 7:00 AM EDT Laboratory Lab [facility] Phlebotomy [facility] [address] [facility] [place] [address] Mvmg, [facility] [address] [place] [address] 03/12/2025 7:00 AM EDT Laboratory Lab [facility] Phlebotomy [facility] [address] [facility] [place] [address] Mvmg, Gml [facility] Draw [address] [place] [address] [address] 03/19/2025 7:00 AM EDT Laboratory Lab Mobile Phlebotomy [facility] [address] [place] [address] Mvmg, Gml [facility] Draw [address] [place] [address] 03/26/2025 7:00 AM EDT Laboratory Lab [facility] Phlebotomy [facility] [address] [place] [address] Mvmg, [facility] [address] [place] [address] 04/02/2025 7:00 AM EDT Laboratory Lab Mobile Phlebotomy [facility] [address] [place] [address] Mvmg, Gml [facility] [address] [place] [address] 04/09/2025 7:00 AM EDT Laboratory Lab [facility] Phlebotomy [facility] [address] [place] [address] Mvmg, Gml [facility] [address] [place] [address] 04/16/2025 7:00 AM EDT Laboratory Lab [facility] Phlebotomy [facility] [address] [place] [address] Mvmg, Gml [facility] [address] [place] [address] [address] 04/23/2025 7:00 AM EDT Laboratory Lab [facility] Phlebotomy [facility] [address] [place] [address] Mvmg, Gml [facility] [address] [place] [address] 04/30/2025 7:00 AM EDT Laboratory Lab [facility] Phlebotomy [facility] [address] [place] [address] Mvmg, Gml [facility] Draw [address] [place] [address] [place] [address] 05/07/2025 7:00 AM EDT Laboratory Lab Mobile Phlebotomy [facility] [address] [place], [place] [address] Mvmg, Gml [facility] Draw [address] [place] [address] 05/14/2025 7:00 AM EDT Laboratory Lab [facility] Phle[facility]omy [facility] [address] [facility] [place] [address] Mvmg, Gml [facility] Draw [address] [facility] [place] [address] 05/21/2025 7:00 AM EDT Laboratory Lab Mobile Phlebotomy [facility] [address] [place] [address] M[facility], Gml [facility] Draw [address] [facility] [place] [address] 07/21/2025 1:30 PM EDT Imaging Radiology [address] [place] [address] 08/04/2025 1:20 PM EDT Office Visit Family Medicine [address] [place] [phone] Dhruv Moss MD [address] [place] [address] [place] [address] Health Maintenance Due Date Last Done Comments *BISPHONATE OR OTHER ACCEPTABLE MEDICATION NEEDED FOR OSTEOPOROSIS (REFER TO SMARTSET #1146) 11/06/2023 Colonoscopy 05/06/2024 05/06/2019, 05/06/2019 CKD PHOS USE SMARTSET 24158 06/07/2024 07/04/2023, 05/31/2023, 05/08/2023, Additional history exists [...] Additional history exists CKD HGB USE SMARTSET 44240 09/25/202509/25, 09/25/2024, 09/18/2024, Additional history exists DTap/Tdap Vaccines (3 - Td or Tdap) 11/10/2026 11/10/2016, 03/30/2011 VITAMIN D LEVEL ONCE IN A LIFETIME-USE SMARTSET# 49719 Completed 05/11/2015 RETIRED - COLONOSCOPY-EVERY 5 YRS [...] this encounter Medical Devices Implanted Type Area Historic Preservationist Device Identifier Shelf Expiration Date Model / Serial / Lot Port Pwr Mri Isp Profile - [id number] Implanted:Qty: 1 on 07/24/2020 by Akash Castillo MD at [facility] Right: Chest CR BARD : PERIPHERAL VASCULAR 04/12/2021 [id number] / / [id number] documented as of this encounter Advance Directives [...] Agents on File Name Relationship Healthcare Agent [facility] Juanita Silva Adult Child Health Care Agent Care Teams Multimedia Services Coordinator Relationship Specialty Start Date End Date Dhruv Moss MD [address] [place] [id number] PCP - General Family Medicine 08/27/21 documented as of this encounter
--- OUTSIDE RECORDS SUMMARY | 2024-10-10 00:26 | External Medical Summary | Summary of Care ---
Author Name Unknown Organization [facility] Address [address] [facility] [address] Phone [phone] Care Team Providers Care Vice President Compliance Name Role Phone Dhruv Moss MD Primary Care Provide r Encounter Details Date Type Department Care Team (Late st Contact Info) Description 09/26/2024 Result Scan Unspecified Department Jitendra Aguero MD 200 [facility] [place] [id number] <No scans attached> Allergies No known active allergiesdocumented as of [...] by mouth in the morning. Active [place] 32G X 4 MM Use as directed. [...] 24 Hour (Imdur)Indications :Coronary artery disease involving duckwater coronary artery of duckwater heart without angina pectoris,HTN, goal below 140/90 [...] goal of less than 8.0% ([facility]) Use to test blood sugar three times a day DXe11.9 300 Each 3 07/22/20 24 Active Insulin Glargine Solostar 100 UNIT/ML Subcutaneous Solution Pen-injector (Lantus SoloStar) Inject 16 Units under the skin in the morning. 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 Does not have any evidence of ibyeo-zvxysy-srhf disease Assessment & Plan (09/23/2024 10:42 AM [...] Currently in relapse. Hemoglobin yesterday 8.8. Platelets 55024. - weekly CBC. Transfusion to maintain above [...] EDT): I received a call from nurse leather case finisher in the field reporting that over the [...] that time. Coronary artery disease invo lving duckwater coronary artery of duckwater heart without angina pectoris 06/12/2017 Overview (06/12/2017): [...] was that I can find were from [id number] Assessment/plan: Dyslipidemia with patient currently taking Lipitor [...] mRNA, LNP-s, No Pre serve, 2-Dose Series (disco volante) 02/05/2021,01/08/2021 COVID-19, LNP-s, No Preserve , Ye-sucrose, [...] Mobile Phlebotomy [facility] [address] [place] [address] Mvmg, Gml Mobile Home Draw [address] [place] [address] 10/08/2024 10:00 AM EST [facility] [address] [place] [address] Marisa Pacheco, TANYA [address] [place] [address] 10/09/2024 7:00 AM EST Laboratory Lab Mobile Phlebotomy [facility] [address] [place] [address] Mvmg, Gml Mobile Home Draw [address] [place] [address] 10/16/2024 7:00 AM EST Laboratory Lab Mobile Phlebotomy [facility] [address] [place] [address] Mvmg, Gml Mobile Home Draw [address] [place] [address] 10/16/2024 1:45 PM EST [facility] [place] [phone] Jitendra Aguero MD 200 [facility] [place] [address] 2024 7:00 AM EST Laboratory Lab Mobile Phlebotomy [facility] [address] [place] [address] Mvmg, Gml Mobile Home Draw [address] [place] [address] 10/30/2024 7:00 AM EST Laboratory Lab Mobile Phlebotomy [facility] [address] [place] [address] Mvmg, Gml Mobile Home Draw [address] [place] [address] 11/11/2024 2:00 PM EST Office Visit Pharmacy, [address] [place] [address] [place] [address] 11/15/2024 7:05 AM EST Laboratory Lab Mobile Phlebotomy [facility] [address] [place] [address] Mvmg, Gml Mobile Home Draw [address] [place] [address] 11/20/2024 7:00 AM EST Laboratory Lab Mobile Phlebotomy [facility] [address] [place] [address] Mvmg, Gml Mobile Home Draw [address] [place] [address] 11/27/2024 7:00 AM EST Laboratory Lab Mobile Phlebotomy [facility] [address] [place] [address] Mvmg, Gml Mobile Home Draw [address] [place] [address] 12/04/2024 7:00 AM EST Laboratory Lab Mobile Phlebotomy [facility] [address] [place] [address] Mvmg, Gml Mobile Home Draw [address]20 [facility] [place] [address] 12/05/2024 9:00 AM EST [facility] [address] [facility] [address] Tremaine Morgan PA-C [address] [address] 12/11/2024 7:00 AM EST Laboratory Lab Mobile Phlebotomy [facility] [address] [place] [address] Mvmg, Gml Mobile Home Draw [address] [place] [address] 12/18/2024 7:00 AM EST Laboratory Lab Mobile Phlebotomy [facility] [address] [place] [address] Mvmg, Gml Mobile Home Draw [address] [place] [address] 12/24/2024 2:30 PM EST Nurse Only Ancillary [address] [place] [address] [place], Nurse Annual [address] [place] [address] 12/25/2024 7:00 AM EST Laboratory Lab Mobile Phlebotomy [facility] [address] [place] [address] Mvmg, Gml Mobile Home Draw [address] [place] [address] 01/01/2025 7:00 AM EST Laboratory Lab Mobile Phlebotomy [facility] [address] [place] [address] Mvmg, Gml Mobile Home Draw [address] [place] [address] 01/08/2025 7:00 AM EST Laboratory Lab Mobile Phlebotomy [facility] [address] [place] [address] Mvmg, Gml Mobile Home Draw [address] [place] [address] 01/13/2025 11:40 AM EST Office Visit Family Medicine [address] [place] [phone] Dhruv Moss MD [address] [place] [address] [place] [address] 01/15/2025 7:00 AM EST Laboratory Lab Mobile Phlebotomy [facility] [address] [place] [address] Mvmg, Gml Mobile Home Draw [address] [place] [address] 01/22/2025 7:00 AM EDT Laboratory Lab Mobile Phlebotomy [facility] [address] [place] [address] Mvmg, Gml Mobile Home Draw [address] [place] [address] 01/29/2025 7:00 AM EDT Laboratory Lab Mobile Phlebotomy [facility] [address] [facility] [place] [address] Mvmg, Gml Mobile Home Draw 2520 [place] [address] 02/05/2025 7:00 AM EDT Laboratory Lab Mobile Phlebotomy [facility] [address] [facility] [place] [address] Mvmg, Gml Mobile Home Draw 2520 [place] [address] 02/12/2025 7:00 AM EDT Laboratory Lab Mobile Phlebotomy [facility] [address]20 [place] [address] Mvmg, Gml Mobile Home Draw 2520 [place] [address] 02/19/2025 7:00 AM EDT Laboratory Lab Mobile Phlebotomy [facility] [address] [facility] [place] [address] Mvmg, Gml Mobile Home Draw 2520 [place] [address] 02/26/2025 7:00 AM EDT Laboratory Lab Mobile Phlebotomy [facility] [address] [facility] [place] [address] Mvmg, Gml Mobile Home Draw 2520 [place] [address] 03/05/2025 7:00 AM EDT Laboratory Lab Mobile Phlebotomy [facility] [address] [facility] [place] [address] Mvmg, Gml Mobile Home Draw 2520 [place] [address] 03/12/2025 7:00 AM EDT Laboratory Lab Mobile Phlebotomy [facility] [address] [facility] [place] [address] Mvmg, Gml Mobile Home Draw 2520 [place] [address] 03/19/2025 7:00 AM EDT Laboratory Lab Mobile Phlebotomy [facility] [address] [facility] [place] [address] Mvmg, Gml Mobile Home Draw [address] [place] [address] 03/26/2025 7:00 AM EDT Laboratory Lab Mobile Phlebotomy [facility] [address] [facility] [place] [address] Mvmg, Gml Mobile Home Draw 2520 [place] [address] 04/02/2025 7:00 AM EDT Laboratory Lab Mobile Phlebotomy [facility] [address] [place] [address] Mvmg, Gml Mobile Home Draw 2520 [place] [address] 04/09/2025 7:00 AM EDT Laboratory Lab Mobile Phlebotomy [facility] [address] [place] [address] Mvmg, Gml Mobile Home Draw [address] [place] [place] [address] 04/16/2025 7:00 AM EDT Laboratory Lab Mobile Phlebotomy [facility] [address] [place] [address] Mvmg, Gml Mobile Home Draw 2520 [place] [address] 04/23/2025 7:00 AM EDT Laboratory Lab Mobile Phlebotomy [facility] [address] [place] [address] Mvmg, Gml Mobile Home Draw [address] [place] [address] 04/30/2025 7:00 AM EDT Laboratory Lab Mobile Phlebotomy [facility] [address] [place] [address] Mvmg, Gml Mobile Home Draw 2520 [place] [address] 05/07/2025 7:00 AM EDT Laboratory Lab Mobile Phlebotomy [facility] [address] [facility] [place] [address] Mvmg, Gml Mobile Home Draw [address] [employer] [place] [address] 05/14/2025 7:00 AM EDT Laboratory Lab Mobile Phlebotomy [facility] [address] [facility] [place] [address] Mvmg, Gml Mobile Home Draw 25[address] [facility] [place] [address] 05/21/2025 7:00 AM EDT Laboratory Lab Mobile Phlebotomy [facility] [address] [facility] [place] [address] Mvmg, Gml Mobile Home Draw 25[address] [facility] [place] [address] 07/21/2025 1:30 PM EDT Imaging Radiology [address] [place] [address] 08/04/2025 1:20 PM EDT Office Visit Family Medicine [address] [place] [phone] Dhruv Moss MD [address] [place] [address] [place] [address] Health Maintenance Due Date Last Done Comments *BISPHONATE OR OTHER ACCEPTABLE MEDICATION NEEDED FOR OSTEOPOROSIS (REFER TO SMARTSET #1146) 11/06/2023 Colonoscopy 05/06/2024 05/06/2019, 05/06/2019 CKD PHOS USE SMARTSET 62981 06/07/202405/14, 05/31/2023, 05/08/2023, Additional history exists COVID-19 [...] Additional history exists CKD HGB USE SMARTSET 88097 09/25/202509/25, 09/25/2024, 09/18/2024, Additional history exists DTap/Tdap Vaccines (3 - Td or Tdap) 11/10/2026 11/10/2016, 03/30/2011 VITAMIN D LEVEL ONCE IN A LIFETIME-USE SMARTSET# 54110 Completed 05/11/2015 RETIRED - COLONOSCOPY-EVERY 5 YRS [...] this encounter Medical Devices Implanted Type Area Diet Technician Registered Device Identifier Shelf Expiration Date Model / Serial / Lot Port Pwr Mri Isp Profile - [id number] Implanted:Qty: 1 on 07/24/2020 by Akash Castillo MD at OR [facility] Right: Chest CR BARD : PERIPHERAL VASCULAR 04/12/2021 [id number] / / [id number] documented as of this encounter Procedures Procedure Name Priority Date/Time Associated Diagnosis Comments OUTSIDE LAB RESULTS 09/26/2024 documented in this encounter Results * OUTSIDE LAB RESULTS (09/26/2024) 09/26/2024 Jitendra Aguero MD LABORATORY Final Result documented in this encounter Advance Directives * [...] Healthcare Agent [facility] p Communication Juanita Ricardo Adult Child Health Care Agent Care Teams Vice President Compliance Relationship Specialty Start Date End Date Dhurv Moss MD [facility] [place] [address] PCP - General Family Medicine 08/27/21 documented as of this encounter
--- OUTSIDE RECORDS SUMMARY | 2024-10-10 00:26 | External Medical Summary | Summary of Care ---
Author Name Unknown Organization [facility] Address [address] [facility] [place] [address] Phone [phone] Care Team Providers Care Client Service And Consulting Manager Name Role Phone Dhruv Moss MD Primary Care Provide r Encounter Details Date Type Department Care Team (Late st Contact Info) Description 09/26/2024 Result Scan Unspecified Department <No scans attached> Allergies No known active allergiesdocumented as of this encounter (statuses as of 09/27/2024) Medications Diclofenac Sodium 1 % External GelIndications:kne e pain Apply topically to affected area . Apply to bilateral knees Active Prochlorperazine Maleate 10 MG Oral Tablet (Compazine)Indicat ions:H/O allogeneic bone marrow transplant (HCC) Take by mouth 1 Tablet every 6 hours as needed for Nausea. 60 Tablet 3 12/09/19 22 Active DoughMainToOdyssey Mobile Interaction Verio Flex System w/Device Kit Use as directed . 12/16/19 22 Active Acetaminophen 500 MG Oral Tablet Take 1 Tablet by mouth every 6 hours as needed. Active Magnesium 100 MG Oral Capsule Take 1 Capsule by mouth in the morning. Active Pen Corning 32G X 4 MM Use as directed. 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 Date of Transplant: 09/01/2021 Conditioning Regimen: Fludarabine / Busulfan 2 with post-transplant Cytoxan ABO/Rh: A Positive CMV status: CMV Positive--- GRID: [id number] / DID: [id number] Matched Unrelated 10/24--- DPB1 Match ABO/Rh: A [...] & Plan (04/04/2023 4:21 PM EDT): Platelets 50101 on 03/20 Questionable hematuria Urinary incontinence 09/12/2022 [...] failure. Does not have any evidence of ibhns-jstndi-otsf disease Assessment & Plan (09/23/2024 10:42 AM [...] Currently in relapse. Hemoglobin yesterday 8.8. Platelets 39119. - weekly CBC. Transfusion to maintain above [...] EDT): I received a call from nurse catalytic case operator in the field reporting that over the [...] that time. Coronary artery disease invo lving round valley coronary artery of round valley heart without angina pectoris 06/12/2017 Overview [...] was that I can find were from [id number] Assessment/plan: Dyslipidemia with patient currently taking Lipitor [...] as of this encounter (statuses as of 09/27/2024) Resolved Problems Problem Noted Date Diagnosed Date [...] as of this encounter (statuses as of 09/27/2024) Immunizations Name Administration Dates Next Due COVID-19 mRNA, LNP-s, No Pre serve, 2-Dose Series (Splashscore) 02/05/2021,01/08/2021 COVID-19, LNP-s, No Preserve , Ye-sucrose, [...] 09/30/2024 10:45 AM EST Office Visit Ophthalmology, [facility] [address] [place] [address] Fernando Damon, DO 132 [place] [address] 10/02/2024 7:00 AM EST Laboratory Lab Mobile Phlebotomy [facility] [address] [place], [place] [address] Mvmg, Gml Mobile Home Draw [address] [place], [place] [address] 10/08/2024 10:00 AM EST [facility] [place] [address] Marisa Pacheco RN [facility] [place] [address] 10/09/2024 7:00 AM EST Laboratory Lab Mobile Phlebotomy [facility] [address] [place] [address] Mvmg, Gml Mobile Home Draw [address] [place], [place] [address] 10/16/2024 7:00 AM EST Laboratory Lab Mobile Phlebotomy [facility] [address] [place] [address] Mvmg, Gml Mobile Home Draw [address] [facility] [place], [place] [address] 10/16/2024 1:45 PM EST Office Visit Hematology/Oncology [facility] [address] [place], [place] [phone] Jitendra Aguero MD 200 [facility] [place] [address] 2024 7:00 AM EST Laboratory Lab Mobile Phlebotomy [facility] [address] [place], [place] [address] Mvmg, Gml Mobile Home Draw [address] [place] [address] 10/30/2024 7:00 AM EST Laboratory Lab Mobile Phlebotomy [facility] [address] [place], [place] [address] Mvmg, Gml Mobile Home Draw [address] [place] [address] 11/11/2024 2:00 PM EST Office Visit Pharmacy, [address] [place] [address] [place] [address] 11/15/2024 7:05 AM EST Laboratory Lab Mobile Phlebotomy [facility] [address] [place], [place] [address] Mvmg, Gml Mobile Home Draw [address] [place], [place] [address] 11/20/2024 7:00 AM EST Laboratory Lab Mobile Phlebotomy [facility] [address] [place], [place] [address] Mvmg, Gml Mobile Home Draw [address] [place], [place] [address] 11/27/2024 7:00 AM EST Laboratory Lab Mobile Phlebotomy [facility] [address] [place] [address] Mvmg, Gml Mobile Home Draw [address] [place], [place] [address] 12/04/2024 7:00 AM EST Laboratory Lab Mobile Phlebotomy [facility] [address] [place] [address] Mvmg, Gml Mobile Home Draw [address] [place], [place] [address] 12/05/2024 9:00 AM EST [facility] [place] [address] Tremaine Morgan PA-C [address] [place] [address] 12/11/2024 7:00 AM EST Laboratory Lab Mobile Phlebotomy [facility] [address] [place] [address] Mvmg, Gml Mobile Home Draw [address] [place], [place] [address] 12/18/2024 7:00 AM EST Laboratory Lab Mobile Phlebotomy [facility] [address] [place] [address] Mvmg, Gml Mobile Home Draw [address] [place] [address] 12/24/2024 2:30 PM EST Nurse Only Ancillary [address] [place] [address] [place], Nurse Annual [address] [place] [address] 12/25/2024 7:00 AM EST Laboratory Lab Mobile Phlebotomy [facility] [address] [place] [address] Mvmg, Gml Mobile Home Draw [address] [place] [address] 01/01/2025 7:00 AM EST Laboratory Lab Mobile Phlebotomy [facility] [address] [place] [address] Mvmg, Gml Mobile Home Draw [address] [place] [address] 01/08/2025 7:00 AM EST Laboratory Lab Mobile Phlebotomy [facility] [address] [place], [place] [address] Mvmg, Gml Mobile Home Draw [address] [place], [place] [address] 01/13/2025 11:40 AM EST Office Visit Family Medicine [address] [place] [phone] Dhruv Moss MD [address] [place] [address] [place] [address] 01/15/2025 7:00 AM EST Laboratory Lab Mobile Phlebotomy [facility] [address] [place] [address] Mvmg, Gml Mobile Home Draw [address] [place] [address] 01/22/2025 7:00 AM EDT Laboratory Lab Mobile Phlebotomy [facility] [address] [place] [address] Mvmg, Gml Mobile Home Draw 2520 [place] [address] 01/29/2025 7:00 AM EDT Laboratory Lab Mobile Phlebotomy [facility] [address] [place] [address] Mvmg, Gml Mobile Home Draw 2520 [facility] [place] [address] 02/05/2025 7:00 AM EDT Laboratory Lab Mobile Phlebotomy [facility] [address] [place] [address] Mvmg, Gml Mobile Home Draw 2520 [facility] [place] [address] 02/12/2025 7:00 AM EDT Laboratory Lab Mobile Phlebotomy [facility] [address] [place] [address] Mvmg, Gml Mobile Home Draw [address] [place] [address] 02/19/2025 7:00 AM EDT Laboratory Lab Mobile Phlebotomy [facility] [address] [place] [address] Mvmg, Gml Mobile Home Draw 2520 [facility] [place] [address] 02/26/2025 7:00 AM EDT Laboratory Lab Mobile Phlebotomy [facility] [address] [facility] [place] [address] Mvmg, Gml Mobile Home Draw [address] [place] [address] 03/05/2025 7:00 AM EDT Laboratory Lab Mobile Phlebotomy [facility] [address] [facility] [place] [address] Mvmg, Gml Mobile Home Draw 2520 [facility] [place] [address] 03/12/2025 7:00 AM EDT Laboratory Lab Mobile Phlebotomy [facility] [address] [place] [address] Mvmg, Gml Mobile Home Draw [address] [place] [address] 03/19/2025 7:00 AM EDT Laboratory Lab Mobile Phlebotomy [facility] [address] [place] [address] Mvmg, Gml Mobile Home Draw 25[address] [place] [address] 03/26/2025 7:00 AM EDT Laboratory Lab Mobile Phlebotomy [facility] [address] [place] [address] Mvmg, Gml Mobile Home Draw [address] [place] [address] 04/02/2025 7:00 AM EDT Laboratory Lab Mobile Phlebotomy [facility] [address] [place] [address] Mvmg, Gml Mobile Home Draw [address] [place] [address] 04/09/2025 7:00 AM EDT Laboratory Lab Mobile Phlebotomy [facility] [address] [place] [address] Mvmg, Gml Mobile Home Draw [address] [place] [address] 04/16/2025 7:00 AM EDT Laboratory Lab Mobile Phlebotomy [facility] [address] [place] [address] Mvmg, Gml Mobile Home Draw [address] [place] [address] 04/23/2025 7:00 AM EDT Laboratory Lab Mobile Phlebotomy [facility] [address] [place] [address] Mvmg, Gml Mobile Home Draw [address] [place] [address] 04/30/2025 7:00 AM EDT Laboratory Lab Mobile Phlebotomy [facility] [address] [place] [address] Mvmg, Gml Mobile Home Draw [address] [place] [address] 05/07/2025 7:00 AM EDT Laboratory Lab Mobile Phlebotomy [facility] [address] [place] [address] Mvmg, Gml Mobile Home Draw [address] [place] [address] 05/14/2025 7:00 AM EDT Laboratory Lab Mobile Phlebotomy [facility] [address] [place] [address] Mvmg, Gml Mobile Home Draw [address] [place] [address] 05/21/2025 7:00 AM EDT Laboratory Lab Mobile Phlebotomy [facility] [address] [place], [place] [address] Mvmg, Gml Mobile Home Draw [address] [place] [address] 07/21/2025 1:30 PM EDT Imaging Radiology [address] [place] [address] 08/04/2025 1:20 PM EDT Office Visit Family Medicine [address] [place] [phone] Dhruv Moss MD [address] [place] [address] [place] [address] Health Maintenance Due Date Last Done Comments *BISPHONATE OR OTHER ACCEPTABLE MEDICATION NEEDED FOR OSTEOPOROSIS (REFER TO SMARTSET #1146) 11/06/2023 Colonoscopy 05/06/2024 05/06/2019, 05/06/2019 CKD PHOS USE SMARTSET 17157 06/07/202405/14, 05/31/2023, 05/08/2023, Additional history exists COVID-19 [...] Additional history exists CKD HGB USE SMARTSET 65855 09/25/202509/25, 09/25/2024, 09/18/2024, Additional history exists DTap/Tdap Vaccines (3 - Td or Tdap) 11/10/2026 11/10/2016, 03/30/2011 VITAMIN D LEVEL ONCE IN A LIFETIME-USE SMARTSET# 24056 Completed 05/11/2015 RETIRED - COLONOSCOPY-EVERY 5 YRS [...] this encounter Medical Devices Implanted Type Area It Service Continuity Supervisor Device Identifier Shelf Expiration Date Model / Serial / Lot Port Pwr Mri Isp Profile - [id number] Implanted:Qty: 1 on 07/24/2020 by Akash Castillo MD at OR [facility] Right: Chest CR BARD : PERIPHERAL VASCULAR 04/12/2021 [id number] / / [id number] documented as of this encounter Procedures Procedure Name Priority Date/Time Associated Diagnosis Comments OUTSIDE LAB RESULTS 09/26/2024 documented in this encounter Results * OUTSIDE LAB RESULTS (09/26/2024) 09/26/2024 us No Physician Data Unknown LABORATORY Final Result documented in this encounter [...] Adult Child Health Care Agent Care Teams Client Service And Consulting Manager Relationship Specialty Start Date End Date Dhruv Moss MD [address] [facility] [place] [address] PCP - General Family Medicine 08/27/21 documented as of this encounter
--- OUTSIDE RECORDS SUMMARY | 2024-10-10 00:26 | External Medical Summary ---
Author Name Unknown Address Unknown Organization K01:[facility] [place] [facility] [address] [facility] [address] [place] [address] Laboratory Report Ordering Provider Test Date Status ANN MUNGUIA 09/25/2024 08:42:00 Final Observation Date Value Abnormality Reference (Units ) Status WBC, Total 09/25/2024 08:42:00 19.14 Above high normal 4.00-10.80 (K/uL) Final RBC 09/25/2024 08:42:00 1.95 3.85-5.15 (M/uL) Final Hemoglobin 09/25/2024 08:42:00 5.8 Below lower panic limits 12.0-15.3 (g/dL) Final HCT 09/25/2024 08:42:00 18.7 Below low normal 36.0-45.2 (%) Final MCV 09/25/2024 08:42:00 95.9 81.5-97.5 (fL) Final MCH 09/25/2024 08:42:00 29.7 27.0-34.0 (pg) Final MCHC 09/25/2024 08:42:00 31.0 32.0-36.0 (g/dL) Final RDW 09/25/2024 08:42:00 17.0 11.5-15.5 (%) Final Platelets 09/25/2024 08:42:00 4 Below lower panic limits 140-400 (K/uL) Final MPV 09/25/2024 08:42:00 10.5 6.6-11.1 (fL) Final Nucleated erythrocytes/100 leukocytes [Ratio] in Blood by Automated count 09/25/2024 08:42:00 0 <=0 (/100 WBCs) Final Performing Location [facility] [place] [address] [place] [address]
--- OUTSIDE RECORDS SUMMARY | 2024-10-10 00:27 | External Medical Summary | Summary of Care ---
Author Name Unknown Organization [facility] Address [address] [facility] [place] [address] Phone [phone] Care Team Providers Care Administrative Services Officer Name Role Phone Dhruv Moss MD Primary Care Provide r Reason for Visit * Reason Onset Date Comments Test Results Lab 09/19/2024 Platelets Encounter Details Date Type Department Care Team (Late st Contact Info) Description 09/19/2024 Telephone Hematology/Oncology [facility] [address] [place] [phone] Jitendra Aguero MD [address] [place] [address] Test Results Lab (Platelets) Allergies No known active allergiesdocumented as of this encounter (statuses as of 09/19/2024) Medications Medication Sig Dispensed Refills Start Date End Date Status Diclofenac Sodium 1 % External GelIndications:knee pain Apply topically to affected area . Apply to bilateral knees Active Prochlorperazine Maleate 10 MG Oral Tablet (Compazine)Indicatio ns:H/O allogeneic bone marrow transplant (HCC) Take by mouth 1 Tablet every 6 hours as needed for Nausea. 60 Tablet 3 12/09/2021 Active Convertio Co Flex System w/Device Kit Use as directed . 12/16/2021 Active Acetaminophen 500 MG Oral Tablet Take 1 Tablet by mouth every 6 hours as needed. Active Magnesium 100 MG Oral Capsule Take 1 Capsule by mouth in the morning. Active Venlafaxine HCl ER 150 MG Oral Capsule Extended Release 24 Hour (Effexor XR)Indications:Recur rent major depressive disorder, in partial remission (HCC) TAKE ONE CAPSULE BY MOUTH EVERY DAY do not cut, crush, or chew 90 Capsule 1 04/01/2024 Active Pen Stanton 32G X 4 MM Use as directed. Use to inject insulin up to 4 times daily. 400 Each 3 04/05/2024 Active Atorvastatin Calcium 40 MG Oral Tablet (Lipitor)Indications :Dyslipidemia, goal LDL below 70 TAKE ONE TABLET BY MOUTH IN THE MORNING 90 Tablet 2 04/22/2024 Active OneTouch Verio In Vitro Strip (Glucose Blood)Indications:Ty pe 2 diabetes mellitus with hemoglobin A1c goal of less than 8.0% (HCC) Use to test blood sugar three times a day DXe11.9 300 Strip 3 04/22/2024 Active Acyclovir 800 MG Oral Tablet (Zovirax)Indications :MDS (myelodysplastic syndrome), high grade (HCC) TAKE ONE TABLET BY MOUTH TWICE DAILY in the morning and before bedtime 60 Tablet 11 05/13/2024 Active Isosorbide Mononitrate ER 30 MG Oral Tablet Extended Release 24 Hour (Imdur)Indications:C oronary artery disease involving [place] coronary artery of [place] heart without angina pectoris,HTN, goal below 140/90 TAKE ONE TABLET BY MOUTH IN THE MORNING 90 Tablet 1 06/15/2024 Active Omeprazole 20 MG Oral Capsule Delayed Release (PriLOSEC)Indication s:MDS (myelodysplastic syndrome), high grade (HCC) Take 1 Capsule by mouth in the morning and 1 Capsule before bedtime. 180 Capsule 2 07/16/2024 Active Metoprolol Succinate ER 50 MG Oral Tablet Extended Release 24 Hour (toPROL XL)Indications:HTN, goal below 140/90 TAKE ONE TABLET BY MOUTH IN THE MORNING 90 Tablet 1 07/22/2024 Active metFORMIN HCl 1000 MG Oral Tablet (Glucophage)Indicati ons:Type 2 diabetes mellitus with hemoglobin A1c goal of less than 8.0% (HCC) TAKE 1 TABLET BY MOUTH TWICE DAILY WITH MORNING AND EVENING MEALS 180 Tablet 1 07/22/2024 Active Levothyroxine Sodium 88 MCG Oral Tablet (Levoxyl)Indications :Postoperative hypothyroidism TAKE ONE TABLET BY MOUTH FIRST THING IN THE MORNING AT LEAST 30 MINUTES BEFORE BREAKFAST OR OTHER MEDICATIONS 90 Tablet 1 07/22/2024 Active Nitroglycerin 0.4 MG Sublingual Tablet Sublingual (Nitrostat)Indicatio ns:chest pain Place 1 Tablet under the tongue every 5 minutes as needed for Pain, Chest. up to 3 doses in 15 minutes 25 Tablet 2 07/23/2024 Active OneTouch Delica Lancets 30GIndications:Type 2 diabetes mellitus with hemoglobin A1c goal of less than 8.0% ([facility]) Use to test blood sugar three times a day DXe11.9 300 Each 3 07/22/2024 Active Insulin Glargine Solostar 100 UNIT/ML Subcutaneous Solution Pen-injector (Lantus SoloStar) Inject 16 Units under the skin in the morning. 30 mL 3 07/22/2024 Active Ondansetron HCl 8 MG Oral TabletIndications:MD Santos (myelodysplastic syndrome), high grade ([facility]) Take 1 Tablet by mouth every 8 hours as needed for Nausea. 60 Tablet 3 07/22/2024 Active LubriFresh P.M. 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 Date of Transplant: 09/01/2021 Conditioning Regimen: Fludarabine / Busulfan 2 with post-transplant Cytoxan ABO/Rh: A Positive CMV status: CMV Positive--- GRID: [id number] / DID: [id number] Matched Unrelated 10/24--- DPB1 Match ABO/Rh: A Positive CMV status: Negative Problem Noted Date Diagnosed Date Chronic kidney disease, stage 3a 07/22/2024 Overview: Per CKD protocol Age-related osteoporosis wit hout current pathological fracture 11/03/2023 S/P right hip fracture 06/12/2023 Neutropenia 06/05/2023 Symptomatic stenosis of righ t carotid artery without infarction 05/24/2023 Overview: 05/24/23=50-69% on right and <50% on left. Repeat 1 year Myelodysplastic syndrome 12/06/2022 ILD (interstitial lung disease) 12/06/2022 Thrombocytopenia 12/06/2022 Last Assessment & Plan: Platelets 31118 on 03/20 Questionable hematuria Urinary incontinence 09/12/2022 History of immunosuppression therapy 04/19/2022 ACP (advance care planning) 03/10/2022 Last Assessment & Plan: ACP nose done by Lyudmila Sterling December 15, 2021. No additional discussions occurred today due to time constrictions. 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 Does not have any evidence of [id number]-[id number]-[id number] disease Last Assessment & Plan: Continues to follow with hematology CBCd weekly and transfuse to maintain hgb >8 Overall poor progression reviewed at recent oncology appt Reviewed expected symptoms with patient today Microalbuminuria due to type 2 diabetes mellitus 10/30/2019 Insulin-requiring or dependent type II diabetes mellitus 07/23/2018 Recurrent major depressive disorder, in partial remission 07/23/2018 Last Assessment & Plan: Stable -continue venlafaxine Coronary artery disease invo lving [place] coronary artery of [place] heart without angina pectoris 06/12/2017 Overview: S/P EDIL to LAD on 06/12/17 Last Assessment & Plan: No angina - Continue atorvastatin, isosorbide, metoprolol - no ASA due to thrombocytopenia Dyslipidemia, goal LDL below 70 11/25/2011 Last Assessment & Plan: Patient having no issues. She continues on Lipitor 40 mg daily Last lab I will was that I can find were from [phone] Assessment/plan: Dyslipidemia with patient currently taking Lipitor [...] metformin once daily now due to diarrhea Acquired hypothyroidism 12/01/2009 Last Assessment & Plan: Continue Synthroid Generalized osteoarthritis of multiple sites HTN, goal below 140/90 Last Assessment & Plan: BP stable. - continue medication regimen as noted above. documented as of this encounter (statuses as of 09/19/2024) Resolved Problems Problem Noted Date Diagnosed Date Resolved Date Controlled substance agreement signed 03/04/2024 03/04/2024 Acute cystitis without hematuria 05/09/2023 07/22/2024 Last Assessment & Plan: Given history of urosepsis, will opt to treat with Keflex 500 mg p.o. Three times daily times 10 days follow-up culture Candidiasis, esophageal 03/10/202205/14 Last Assessment & Plan: [...] as of this encounter (statuses as of 09/19/2024) Immunizations Name Administration Dates Next Due COVID-19 [...] No 08/13/2024 Does the household have a [facility] source of income? (Household - for ages [...] ages 0-17 years) Not on file 08/13/2024 Sex and Gender Information Value Date Recorded [...] Telephone Encounter - Makenzie Barth LPN - 09/19/2024 8:07 AM EST Spoke with patient's daughter, Juanita, reviewed lab result message from Dr. Aguero below. She verbalized understanding and is agreeable to the platelet transfusion. Patient to receive 1 unit of platelets. Called [facility] blood bank. Spoke with Kirsten. Spoke with Khushi in [facility]. Called [facility] central scheduling. Patient scheduled for 09/19/2024 at 1:00 pm. Patient verbalized understanding of appt time. Faxed order to [facility]/ blood bank. Standing CBCD order in place. [place] text sent to Zack Polk for updated consent. * Telephone Encounter - Makenzie Barth LPN - 09/19/2024 8:05 AM EST ----- Message from Jitendra Aguero MD sent at 09/19/2024 6:25 AM EST ----- Blood workup done on 09/18/2024: - WBC 21,900, H&H of 8.1/26.2, platelet count of 4000. [facility] No need for blood transfusion. She will continue to have a CBCD checkup every weekly. documented in this encounter Plan of Treatment Upcoming Encounters Date Type Department Care Team (Late st Contact Info) Description 09/23/2024 9:00 AM EST Home Visit [facility] [place], [facility] [address] [facility] [place] [address] Tremaine Morgan PA-C [address] [place] [address] 09/25/2024 7:00 AM EST Laboratory Lab [facility] [address] [facility] [place] [address] [facility], [facility] [address] [place], [place] [address] 09/30/2024 10:45 AM EST Office Visit Ophthalmology, [facility] [place] [address] Fernando Damon, DO [facility] [place] [address] 10/02/2024 7:00 AM EST Laboratory Lab [facility] [address] [place], [place] [address] [facility] [address] [facility] [place], [place] [address] 10/08/2024 10:00 AM EST [facility] Visit [facility] [place] [address] Marisa Pacheco, TAYNA [address] [facility] [place] [address] 10/09/2024 7:00 AM EST Laboratory Lab [facility] [address] [place], [place] [address] [facility], [facility] [address] [facility] [place], [place] [address] 10/16/2024 7:00 AM EST Laboratory Lab [facility] [address] [place], [place] [address] [facility], [facility] [address] [facility] [place], [place] [address] 10/16/2024 1:45 PM EST Office Visit Hematology/Oncology [facility] [place] [address] [facility] [place], [place] [phone] Jitendra Aguero MD [address] [facility] [place] [address] 2024 7:00 AM EST Laboratory Lab [facility] [address] [employer] [place], [place] [address] [facility], [facility] [address] [place], [place] [address] 10/30/2024 7:00 AM EST Laboratory Lab [facility] [address] [employer] [place], [place] [address] [facility], [facility] [address] [place], [place] [address] 11/11/2024 2:00 PM EST Office Visit Pharmacy, [address] [place] [address] [place] [address] 11/15/2024 7:05 AM EST Laboratory Lab [facility] [address] [employer] [place], [place] [address] [facility], [facility] [address] [employer] [place], [place] [address] 11/20/2024 7:00 AM EST Laboratory Lab [facility] [address] [employer] [place], [place] [address] [facility], [facility] [address] [employer] [place], [place] [address] 11/27/2024 7:00 AM EST Laboratory Lab [facility] [address] [employer] [place], [place] [address] [facility], [facility] [address] [employer] [place], [place] [address] 12/04/2024 7:00 AM EST Laboratory Lab [facility] [address] [place], [place] [address] [facility], [facility] [address] [employer] [place], [place] [address] 12/11/2024 7:00 AM EST Laboratory [facility] [address] [employer] [place] [address] [facility] [address] [facility] [address] [place], [place] [address] 12/18/2024 7:00 AM EST Laboratory [facility] [address] [facility] [place] [address] [facility] [address] [facility] [place] [address] 12/24/2024 2:30 PM EST Nurse Only Ancillary [address] [place] [address] [place], Nurse [address] [place] [address] 12/25/2024 7:00 AM EST Laboratory [facility] [address] [place], [place] [address] [facility], [facility] [address] [facility] [address] [place] [address] 01/01/2025 7:00 AM EST Laboratory Lab [facility] [address] [employer] [address] [place], [place] [address] [facility], [facility] [address] [facility] [address] [place], [place] [address] 01/08/2025 7:00 AM EST Laboratory Lab [facility] [address] [place] [address] M[facility], [facility] [address] [place] [address] 01/13/2025 11:40 AM EST Office Visit Family Medicine [address] [place] [phone] Dhruv Moss MD [address] [place] [address] [place] [address] 01/15/2025 7:00 AM EST Laboratory [facility] [address] [place] [address] [facility], [facility] [address] [facility] [place] [address] 01/22/2025 7:00 AM EDT Laboratory Lab [facility] [address] [place] [address] [facility], [facility] [address] [place] [address] 01/29/2025 7:00 AM EDT Laboratory Lab [facility] [address] [facility] [place] [address] [facility], [facility] [address] [place] [address] 02/05/2025 7:00 AM EDT Laboratory Lab [facility] [address] [facility] [place] [address] [facility], [facility] [address] [place] [address] 02/12/2025 7:00 AM EDT Laboratory Lab [facility] [address] [facility] [place] [address] [facility], [facility] [address] [place] [address] 02/19/2025 7:00 AM EDT Laboratory Lab [facility] [address] [facility] [place] [address] M[facility], [facility] [address] [place] [address] 02/26/2025 7:00 AM EDT Laboratory Lab [facility] [address] [facility] [place] [address] [facility] [address] [facility] [place] [address] 03/05/2025 7:00 AM EDT Laboratory Lab [facility] [address] [place] [address] [facility] [address] [facility] [place] [address] 03/12/2025 7:00 AM EDT Laboratory Lab [facility] [address] [facility] [place] [address] [facility], [facility] [address] [facility] [place] [address] 03/19/2025 7:00 AM EDT Laboratory Lab [facility] [address] [place] [address] [facility], [facility] [address] [place] [address] 03/26/2025 7:00 AM EDT Laboratory Lab [facility] [address] [place] [address] [facility], [facility] [address] [place] [address] 04/02/2025 7:00 AM EDT Laboratory Lab [facility] Phlebotomy [facility] [address] [employer] [place] [address] M[facility], G[facility] [address] [place] [address] 04/09/2025 7:00 AM EDT Laboratory Lab [facility] [address] [facility] [place] [address] [facility], [facility] [address] [facility] [place] [address] 04/16/2025 7:00 AM EDT Laboratory Lab [facility] [address] [place] [address] [facility] [address] [facility] [place] [address] 04/23/2025 7:00 AM EDT Laboratory Lab [facility] [address] [facility] [place] [address] [facility], [facility] [address] [place] [address] 04/30/2025 7:00 AM EDT Laboratory Lab [facility] [address] [place] [address] [facility] [address] [facility] [place] [address] 05/07/2025 7:00 AM EDT Laboratory Lab [facility] [address] [place] [address] [facility] [address] [place] [address] 05/14/2025 7:00 AM EDT Laboratory Lab [facility] [address] [place] [address] [facility] [address] [place] [address] 05/21/2025 7:00 AM EDT Laboratory Lab [facility] [address] [place] [address] [facility] [address] [facility] [place] [address] 07/21/2025 1:30 PM EDT Imaging Radiology [address] [place] [address] 08/04/2025 1:20 PM EDT Office Visit Family Medicine [address] [place] [phone] Dhruv Moss MD [address] [place] [address] [place] [address] Health Maintenance Due Date Last Done Comments *BISPHONATE OR OTHER ACCEPTABLE MEDICATION NEEDED FOR OSTEOPOROSIS (REFER TO SMARTSET #1146) 11/06/2023 Colonoscopy 05/06/2024 05/06/2019, 05/06/2019 CKD PHOS USE SMARTSET 65735 06/07/2024 0704/2023, 05/31/2023, 05/08/2023, Additional history exists COVID-19 Vaccine [...] 01/24/2024, Additional history exists TSH 01/02/2025 01/02/2024, 2 02/2023, 09/12/2022, Additional history exists DXA Scan 06/13/2025 06/13/2023, 08/0 11/2022, 03/16/2015 Diabetic Foot Exam 07/02/2025 07/02/2024, 0 06/05/2023, 06/03/2022, Additional history exists Diabetic Eye Exam 08/28/2025 08/28/2024, , 08/28/2024, Additional history exists CKD HGB USE SMARTSET 95618 09/18/202509/18, 09/18/2024, 09/11/2024, Additional history exists DTap/Tdap Vaccines (3 - Td or Tdap) 11/10/2026 11/10/2016, 03/30/2011 VITAMIN D LEVEL ONCE IN A LIFETIME-USE SMARTSET# 00083 Completed 05/11/2015 RETIRED - COLONOSCOPY-EVERY 5 YRS AGES 18-100 Discontinued 05/06/2019, 05/06/2019 Zoster Vaccines Completed 10/30/2020, 090 02/2020, 07/13/2020, [...] this encounter Medical Devices Implanted Type Area Crisis Mental Health Therapist Device Identifier Shelf Expiration Date Model / Serial / Lot Port Pwr Mri Isp Profile - [id number] Implanted:Qty: 1 on 07/24/2020 by Akash Castillo MD at OR [facility] Right: Chest CR BARD : PERIPHERAL VASCULAR 04/12/2021 [id number] / / [id number] documented as of this encounter Advance Directives [...] Child Health Care Agent Care Teams Administrative Services Officer Relationship Specialty Start Date End Date Dhruv Moss MD [address] [facility] [place] [address] PCP - General Family Medicine 08/27/21 documented as of this encounter
--- OUTSIDE RECORDS SUMMARY | 2024-10-10 00:27 | External Medical Summary | Summary of Care ---
Author Name Unknown Organization [facility] Address [address] [facility] [place] [address] Phone [phone] Care Team Providers Care Purchaser Name Role Phone Dhruv Moss MD Primary Care Provide r Reason for Visit * Reason Comments Dosage Adjustment In Person (Anticoag Cl inic) Diabetes Follow-Up Encounter Details Date Type Department Care Team (Late st Contact Info) Description 09/16/2024 2:30 PM EST Office Visit Pharmacy, [address] [place] [phone] [place] [address] Type 2 diabetes mellitus with hemoglobin A1c goal of less than 8.0% ([facility])* Allergies No known active allergiesdocumented as of this encounter (statuses as of 09/16/2024) Medications Medication Sig Dispensed Refills Start Date End Date Status Diclofenac Sodium 1 % External GelIndications:knee pain Apply topically to affected area . Apply to bilateral knees Active Prochlorperazine Maleate 10 MG Oral Tablet (Compazine)Indicatio ns:H/O allogeneic bone marrow transplant (HCC) Take by mouth 1 Tablet every 6 hours as needed for Nausea. 60 Tablet 3 12/09/2021 Active OneTouch Verio Flex System w/Device Kit [...] chew 90 Capsule 1 04/01/2024 Active [place] 32G X 4 MM Use as directed. Use to inject insulin up to 4 times daily. 400 Each 3 04/05/2024 Active Atorvastatin Calcium 40 MG Oral Tablet (Lipitor)Indications :Dyslipidemia, goal LDL below 70 TAKE ONE TABLET BY MOUTH IN THE MORNING 90 Tablet 2 04/22/2024 Active [employer] In Vitro Strip (Glucose Blood)Indications:Ty pe 2 [...] 24 Hour (Imdur)Indications:C oronary artery disease involving t[place] apache coronary artery of t[place] apache heart without angina pectoris,HTN, goal below 140/90 [...] Oral TabletIndications:MD Santos (myelodysplastic syndrome), high grade ([facility]) Take 1 Tablet by mouth every [...] high grade (HCC),Stem cells transplant status ([facility]),Acquired hypothyroidism 1000 mL IV DAILY PRN 12/08/2021 Active bevaCIZumab (Avastin) inj 1.25 mgIndications: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 Date of Transplant: 09/01/2021 Conditioning Regimen: Fludarabine / Busulfan 2 with post-transplant Cytoxan ABO/Rh: A Positive CMV status: CMV Positive--- GRID: [id number] / DID: [id number] Matched Unrelated 10/24--- DPB1 Match ABO/Rh: A [...] Thrombocytopenia 12/06/2022 Last Assessment & Plan: Platelets 42916 on 03/20 Questionable hematuria Urinary incontinence 09/12/2022 [...] failure. Does not have any evidence of qjxjo-zzswbb-hgkx disease Last Assessment & Plan: Continues to [...] -continue venlafaxine Coronary artery disease invo lving tonto apache coronary artery of [place] heart without angina pectoris 06/12/2017 Overview: S/P EDIL to LAD on 06/12/17 Last Assessment & Plan: No angina - Continue atorvastatin, isosorbide, metoprolol - no ASA due to thrombocytopenia Dyslipidemia, goal LDL below 70 11/25/2011 Last Assessment & Plan: Patient having no issues. She continues on Lipitor 40 mg daily Last lab I will was that I can find were from [phone] Assessment/plan: Dyslipidemia with patient currently taking Lipitor [...] as of this encounter (statuses as of 09/16/2024) Resolved Problems Problem Noted Date Diagnosed Date [...] as of this encounter (statuses as of 09/16/2024) Immunizations Name Administration Dates Next Due COVID-19 mRNA, LNP-s, No Pre serve, 2-Dose Series ([employer]) 02/05/2021,01/08/2021 COVID-19, LNP-s, No Preserve , [...] No 08/13/2024 Does the household have a [facility] source of income? (Household - for [...] encounter Progress Notes * Makenzie Pool, [facility] - 09/16/2024 2:34 PM EST Images from the original note were not included. Medication Therapy Disease Management Clinic - Diabetes Management Progress Note Ruth Burger, identified by name and date of , is a 73 year old female being seen for diabetes management/education. Patient presents for return diabetic visit. DIABETES: Current diabetic medications: Novolog PEN - 8 units with breakfast, 4 units with lunch , 6 units with supper + CF 1:20 if over 140 Lantus PEN - 16 units daily in AM Metformin 1000 mg - 1 tablet TWICE a day with food eGFR 76 as of 04/28/23 Medication Injection Site: Abdomen Lifestyle: Diet: Discussed below Glucose Review/SMBG: Readings obtained from patient device Hypoglycemia: Does your blood sugar go below 70 mg/dL? Yes, Discussed below Hyperglycemia symptoms present: none Recent Labs Units 05/22/24 0827 11/20/23 1319 12/06/22 1202 HEMOGLOBIN A1C - [facility] % 6.5* 7.6* 8.0* Recent Labs Units 06/26/24 0920 03/06/24 0852 01/24/24 1337 ESTIMATED GLOMERULAR FILTRATION RATE - [facility] mL/min 58* 46* 61 CREATININE - [facility] mg/dL 1.0 1.2* 1.0 HYPERTENSION: Patient on ACEi/ARB: no, stopped d/t hypotension BP Readings from Last 3 Encounters: 08/13/24 118/52 07/22/24 118/60 07/05/24 119/63 Blood pressure at goal: yes HYPERLIPIDEMIA: Recent Labs Units 12/27/23 1100 11/03/22 1138 LDL CHOLESTEROL (DIRECT MEASURE) - [facility] mg/dL 68 93 Does patient have clinical ASCVD? No, is patient LDL less than 70mg/dL? Yes HEALTH MAINTENANCE REVIEW: Health Maintenance Due Topic Date Due *BISPHONATE OR OTHER ACCEPTABLE MEDICATION NEEDED FOR OSTEOPOROSIS (REFER TO SMARTSET #1146) Never done Colonoscopy 05/06/2024 CKD PHOS USE SMARTSET 01874 06/07/2024 Influenza Vaccine (FLU shot) (1) 07/14/2024 COVID-19 Vaccine ( season) 2024 Albumin/Creatinine Ratio 09/15/2024 ASSESSMENT & PLAN: ICD-10-CM 1. Type 2 diabetes mellitus with hemoglobin A1c goal of less than 8.0% (HCC) E11.9 Considerations: Cost: Approved for PACE 07/2023 Medication: H/o MARTHA to Lantus, unspecified; Eye pain with Xultophy A1c may not be accurate given frequent transfusions Libre2 through [facility] Daughter, ShanteJONES nurse BG Readings - Blood sugars reviewed. Continuing to remain at goal. Patient notes to following DM diet. Experiencing some lows after supper, before bed time. Recently transitioned DME suppliers to [facility]. Denies any issues at this time. Medications - Reviewed current regimen, patient is adherent to regimen. Tolerating well. Will plan to slightly decrease set Novolog dose at supper to reduce lows after. Provided with new CF chart, also sent via [employer]ago - teamwork across global offices. Of note, transitioned to Novolog pens as opposed to vials. No issues reported, likes this much better than the vials. Diet, Exercise, Lifestyle - Continuing to work hard on DM diet. Encouraged to keep up great work. Patient is agreeable to SMBG daily with CGM ([employer] Jo[employer]) Patient aware to contact clinic if any hypoglycemia before next visit. MEDICATION CHANGES: Yes, see below Diabetic Medications: DEC Novolog PEN - 8 units with breakfast, 4 units with lunch , 4 units with supper + CF 1:20 if over 140 Lantus PEN - 16 units daily in AM Metformin 1000 mg - 1 tablet TWICE a day with food eGFR 58 as of 06/26/24 HEALTH MAINTENANCE INTERVENTIONS: Deferred d/t time constraints FOLLOW UP: Return to clinic in 8 weeks 11/11/2024 I spent a total of 30-39 minutes (exact time 35 mins) on the date of service in preparation, delivery, and documentation of the care provided to Ruth Burger excluding any time spent in the performance of separately billed services. Makenzie Pool [facility] Clinical Pharmacist - Special Collections Librarian Medication Therapy Management Clinic 09/16/2024, 2:34 PM documented in this encounter Plan of Treatment Upcoming Encounters Date Type Department Care Team (Late st Contact Info) Description 09/18/2024 7:00 AM EST Laboratory Lab Mobile Phlebotomy [facility] [address] [place] [address] [facility] [address] [facility] [place] [address] 09/23/2024 9:00 AM EST Home Visit [facility] [place], [facility] [address] [facility] [place] [address] Tremaine Morgan PA-C [address] [facility] [place] [address] 09/25/2024 7:00 AM EST Laboratory Lab Mobile Phlebotomy [facility] [address] [place] [address] [facility] [address] [facility] [place] [address] 09/30/2024 10:45 AM EST Office Visit Ophthalmology, [facility] [address] [facility] [place] [address] Fernando Damon DO [address] [place] [address] 10/02/2024 7:00 AM EST Laboratory Lab Mobile Phlebotomy [facility] [address] [facility] [place] [address] [facility] [address] [facility] [place] [address] 10/08/2024 10:00 AM EST Home Visit [facility] [address] [facility] [place] [address] Marisa Pacheco, TANYA [address] [place] [address] 10/09/2024 7:00 AM EST Laboratory Lab Mobile Phlebotomy [facility] [address] [place], [place] [address] [facility] [address] [place], [place] [address] 10/16/2024 7:00 AM EST Laboratory Lab Mobile Phlebotomy [facility] [address] [place] [address] [facility], [facility] Draw [address] [place], [place] [address] 10/16/2024 1:45 PM EST Office Visit Hematology/Oncology [facility] Alejandra [place] [facility] [place], [place] [id number] Jitendra Aguero MD [address] [facility] [place] [address] 2024 7:00 AM EST Laboratory Lab Mobile Phlebotomy [facility] [address] [place], [place] [address] [facility], [facility] Draw [address] [place], [place] [address] 10/30/2024 7:00 AM EST Laboratory Lab Mobile Phlebotomy [facility] [address] [place], [place] [address] [facility], [facility] Draw [address] [place], [place] [address] 11/11/2024 2:00 PM EST Office Visit Pharmacy, [address] [place] [address] [place] [address] 11/15/2024 7:05 AM EST Laboratory Lab Mobile Phlebotomy [facility] [address] [place], [place] [address] [facility], [facility] Draw [address] [place], [place] [address] 11/20/2024 7:00 AM EST Laboratory Lab Mobile Phlebotomy [facility] [address] [place] [address] Mv[facility], Gml [facility] Home Draw [address] [facility] [place] [address] 11/27/2024 7:00 AM EST Laboratory Lab Mobile Phlebotomy [facility] [address] [place] [address] Mvmg, Gml [facility] Draw [address] [place] [address] 12/04/2024 7:00 AM EST Laboratory Lab Mobile Phlebotomy [facility] [address] [place] [address] Mv[facility], Gml [facility] Draw [address] [facility] [place] [address] 12/11/2024 7:00 AM EST Laboratory Lab Mobile Phlebotomy [facility] [address] [place] [address] Mv[facility], Gml [facility] Draw [address] [facility] [place] [address] 12/18/2024 7:00 AM EST Laboratory Lab Mobile Phlebotomy [facility] [address] [facility] [place] [address] Mv[facility], [facility]ml [facility] Draw [address] [facility] [place] [address] 12/24/2024 2:30 PM EST Nurse Only Ancillary [address] [place] [address] [place], Nurse [address] [place] [address] 12/25/2024 7:00 AM EST Laboratory Lab Mobile Phlebotomy [facility] [address] [place] [address] M[facility], Gml [facility] Draw [address] [place] [address] 01/01/2025 7:00 AM EST Laboratory Lab Mobile Phlebotomy [facility] [address] [place] [address] M[facility], Gml [facility] Draw [address] [place] [address] 01/08/2025 7:00 AM EST Laboratory Lab Mobile Phlebotomy [facility] [address] [place], [place] [address] M[facility], Gml [facility] Draw [address] [place], [place] [address] 01/13/2025 11:40 AM EST Office Visit Family Medicine [address], [place] [phone] Dhruv Moss MD [address] [place], [place] [address] [address] 01/15/2025 7:00 AM EST Laboratory Lab Mobile Phlebotomy [facility] [address] [place], [place] [address] Mv[facility], Gml [facility] Draw [address] [facility] [place], [place] [address] 01/22/2025 7:00 AM EDT Laboratory Lab Mobile Phlebotomy [facility] [address] [employer], [place] [address] Mv[facility], Gml [facility] Home Draw [address] [place], [place] [address] 01/29/2025 7:00 AM EDT Laboratory Lab Mobile Phlebotomy [facility] [address] [place] [address] M[facility], [facility] Draw [address] [place] [address] 02/05/2025 7:00 AM EDT Laboratory Lab Mobile Phlebotomy [facility] [address] [place] [address] M[facility], [facility]ml [facility] Draw [address] [employer], [place] [address] 02/12/2025 7:00 AM EDT Laboratory Lab Mobile Phlebotomy [facility] [address] [place] [address] M[facility], Gml [facility] Home Draw [address] [address] 02/19/2025 7:00 AM EDT Laboratory Lab Mobile Phlebotomy [facility] [address] [place] [address] Mvmg, Gml Mobile Home Draw [address] [place] [address] 02/26/2025 7:00 AM EDT Laboratory Lab Mobile Phlebotomy [facility] [address] [place] [address] Mvmg, Gml Mobile Home Draw [address] [place] [address] 03/05/2025 7:00 AM EDT Laboratory Lab Mobile Phlebotomy [facility] [address] [place] [address] Mvmg, Gml [facility] Draw [address] [place] [address] 03/12/2025 7:00 AM EDT Laboratory Lab Mobile Phlebotomy [facility] [address] [place] [address] Mvmg, Gml Mobile Home Draw [address] [place] [address] 03/19/2025 7:00 AM EDT Laboratory Lab Mobile Phlebotomy [facility] [address] [place] [address] Mvmg, Gml [facility] Home Draw [address] [place] [address] 03/26/2025 7:00 AM EDT Laboratory Lab Mobile Phlebotomy [facility] [address] [place] [address] Mvmg, Gml Mobile Home Draw [address] [place] [address] 04/02/2025 7:00 AM EDT Laboratory Lab Mobile Phlebotomy [facility] [address] [place] [address] Mvmg, Gml [facility] Home Draw [address] [place] [address] 04/09/2025 7:00 AM EDT Laboratory Lab Mobile Phlebotomy [facility] [address] [place] [address] Mv[facility], Gml [facility] Draw [address] [facility] [place] [address] 04/16/2025 7:00 AM EDT Laboratory Lab Mobile Phlebotomy [facility] [address] [place] [address] Mvmg, Gml Mobile Home Draw [address] [place] [address] 04/23/2025 7:00 AM EDT Laboratory Lab Mobile Phlebotomy [facility] [address] [facility] [place] [address] Mvmg, Gml [facility] Home Draw [address] [facility] [place] [address] 04/30/2025 7:00 AM EDT Laboratory Lab Mobile Phlebotomy [facility] [address] [place] [address] Mv[facility], Gml [facility] Home Draw [address] [facility] [place] [address] 05/07/2025 7:00 AM EDT Laboratory Lab Mobile Phlebotomy [facility] [address] [place] [address] Mvmg, Gml [facility] Home Draw [address] [facility] [place] [address] 05/14/2025 7:00 AM EDT Laboratory Lab Mobile Phlebotomy [facility] [address] [place] [address] Mvmg, Gml Mobile Home Draw [address] [facility] [place] [address] 05/21/2025 7:00 AM EDT Laboratory Lab Mobile Phlebotomy [facility] [address] [place] [address] Mv[facility], Gml [facility] Home Draw [address] [facility] [place] [address] 07/21/2025 1:30 PM EDT Imaging Radiology [address] [place] [address] 08/04/2025 1:20 PM EDT Office Visit Family Medicine [address] [place] [phone] Dhruv Moss MD [address] [place] [address] [place] [address] Health Maintenance Due Date Last Done Comments *BISPHONATE OR OTHER ACCEPTABLE MEDICATION NEEDED FOR OSTEOPOROSIS (REFER TO SMARTSET #1146) 11/06/2023 Colonoscopy 05/06/2024 05/06/2019, 05/06/2019 CKD PHOS USE SMARTSET 87995 06/07/202405/14, 05/31/2023, 05/08/2023, Additional history exists COVID-19 [...] Additional history exists CKD HGB USE SMARTSET 86576 09/11/202509/11, 09/11/2024, 09/04/2024, Additional history exists DTap/Tdap Vaccines (3 - Td or Tdap) 11/10/2026 11/10/2016, 03/30/2011 VITAMIN D LEVEL ONCE IN A LIFETIME-USE SMARTSET# [id number] Completed 05/11/2015 RETIRED - COLONOSCOPY-EVERY 5 YRS [...] this encounter Medical Devices Implanted Type Area Foreign Agent Device Identifier Shelf Expiration Date Model / Serial / Lot Port Pwr Mri Isp Profile - [id number] Implanted:Qty: 1 on 07/24/2020 by Akash Castillo MD at OR [facility] Right: Chest CR BARD : PERIPHERAL VASCULAR 04/12/2021 [id number] / / [id number] documented as of this encounter Visit Diagnoses Diagnosis Type 2 diabetes mellitus with hemoglobin A1c goal of less than 8.0% ([facility])- Primary Screening mammogram for breast cancer [...] Adult Child Health Care Agent Care Teams Purchaser Relationship Specialty Start Date End Date Dhruv Moss MD [address] [place] [address] [place] [address] PCP - General Family Medicine 08/27/21 documented as of this encounter
--- OUTSIDE RECORDS SUMMARY | 2024-10-10 00:27 | External Medical Summary | Summary of Care ---
Author Name Unknown Organization [facility] Address [address] [facility] [address] Phone [phone] Care Team Providers Care Slabbing Machine Operator Name Role Phone Dhruv Moss MD Primary Care Provide r Reason for Visit * Reason Comments eRx-Medication Refill Encounter Details Date Type Department Care Team (Late st Contact Info) Description 09/21/2024 Refill Family Medicine [address] [phone] Dhruv Moss MD [address] [place] [address] [place] [address] Recurrent major depressive disorder, in partial remission (HCC) Allergies No known active allergiesdocumented as of this encounter (statuses as of 09/23/2024) Medications Diclofenac Sodium 1 % External GelIndications:kn ee pain Apply topically to affected area . Apply to bilateral knees Active Prochlorperazine Maleate 10 MG Oral Tablet (Compazine)Indica tions:H/O allogeneic bone marrow transplant (HCC) Take by mouth 1 Tablet every 6 hours as needed for Nausea. 60 Tablet 3 022 Active [email or web address] Flex System w/Device Kit Use as directed . 022 Active Acetaminophen 500 MG Oral Tablet Take 1 Tablet by mouth every 6 hours as needed. Active Magnesium 100 MG Oral Capsule Take 1 Capsule by mouth in the morning. Active Pen [place] 32G X 4 MM Use as directed. Use to inject insulin up to 4 times daily. 400 Each 3 4 7:20 AM EDT 024 Active Atorvastatin Calcium 40 MG Oral Tablet (Lipitor)Indicati ons:Dyslipidemia, goal LDL below 70 TAKE ONE TABLET BY MOUTH IN THE MORNING 90 Tablet 2 024 Active OneTouch Verio In Vitro Strip (Glucose Blood)Indications :Type 2 diabetes mellitus with hemoglobin A1c goal of less than 8.0% (HCC) Use to test blood sugar three times a day DXe11.9 300 Strip 3 024 Active Acyclovir 800 MG Oral Tablet (Zovirax)Indicati ons:MDS (myelodysplastic syndrome), high grade (HCC) TAKE ONE TABLET BY MOUTH TWICE DAILY in the morning and before bedtime 60 Tablet 11 024 Active Isosorbide Mononitrate ER 30 MG Oral Tablet Extended Release 24 Hour (Imdur)Indication s:Coronary artery disease involving [place] coronary artery of [place] heart without angina pectoris,HTN, goal below 140/90 TAKE ONE TABLET BY MOUTH IN THE MORNING 90 Tablet 1 024 Active Omeprazole 20 MG Oral Capsule Delayed Release (PriLOSEC)Indicat ions:MDS (myelodysplastic syndrome), high grade (HCC) Take 1 Capsule by mouth in the morning and 1 Capsule before bedtime. 180 Capsule 2 024 Active Metoprolol Succinate ER 50 MG Oral Tablet Extended Release 24 Hour (toPROL XL)Indications:HT N, goal below 140/90 TAKE ONE TABLET BY MOUTH IN THE MORNING 90 Tablet 1 024 Active metFORMIN HCl 1000 MG Oral Tablet (Glucophage)Indic ations:Type 2 diabetes mellitus with hemoglobin A1c goal of less than 8.0% (HCC) TAKE 1 TABLET BY MOUTH TWICE DAILY WITH MORNING AND EVENING MEALS 180 Tablet 1 024 Active Levothyroxine Sodium 88 MCG Oral Tablet (Levoxyl)Indicati ons:Postoperative hypothyroidism TAKE ONE TABLET BY MOUTH FIRST THING IN THE MORNING AT LEAST 30 MINUTES BEFORE BREAKFAST OR OTHER MEDICATIONS 90 Tablet 1 024 Active Nitroglycerin 0.4 MG Sublingual Tablet Sublingual (Nitrostat)Indica tions:chest pain Place 1 Tablet under the tongue every 5 minutes as needed for Pain, Chest. up to 3 doses in 15 minutes 25 Tablet 2 Active OneTouch Delica Lancets 30GIndications:Ty pe 2 diabetes mellitus with hemoglobin A1c goal of less than 8.0% ([facility]) Use to test blood sugar three times a day DXe11.9 300 Each 3 Active Insulin Glargine Solostar 100 UNIT/ML Subcutaneous Solution Pen-injector (Lantus SoloStar) Inject 16 Units under the skin in the morning. 30 mL 3 Active Ondansetron HCl 8 MG Oral TabletIndications :MDS (myelodysplastic syndrome), high grade (HCC) Take 1 Tablet by mouth every 8 hours as needed for Nausea. 60 Tablet 3 Active LubriFresh P.M. Ophthalmic Ointment Instill 1 [...] 45 mL 3 4 9:45 AM EDT Active Venlafaxine HCl ER 150 MG Oral Capsule Extended Release 24 Hour (Effexor XR)Indications:Re current major depressive disorder, in partial remission (HCC) TAKE ONE CAPSULE BY MOUTH EVERY DAY do not cut, crush, or chew 90 Capsule 2 Active Venlafaxine HCl ER 150 MG Oral Capsule Extended Release 24 Hour (Effexor XR)Indications:Re current major depressive disorder, in partial remission (HCC) TAKE ONE CAPSULE BY MOUTH EVERY DAY do not cut, crush, or chew 90 Capsule 1 024 2023 Discontinued Hospital, Clinic, or Other Facility Administered Medication Ordered Dose Route Frequency Start Date End Date Status NSS 0.9% 1,000 mL bolus infusionIndications:MDS (myelodysplastic syndrome), high grade (HCC),Stem cells transplant status (HCC),Acquired hypothyroidism 1000 mL IV DAILY PRN 12/08/2021 Active bevaCIZumab (Avastin) inj 1.25 mgIndications: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 Date of Transplant: 09/01/2021 Conditioning Regimen: Fludarabine / Busulfan 2 with post-transplant Cytoxan ABO/Rh: A Positive CMV status: CMV Positive--- GRID: [id number] / DID: [id number] Matched Unrelated 10/24--- DPB1 Match ABO/Rh: A [...] & Plan (04/04/2023 4:21 PM EDT): Platelets [id number] on 03/20 Questionable hematuria Urinary incontinence 09/12/2022 [...] failure. Does not have any evidence of [id number] disease Assessment & Plan (09/23/2024 10:42 AM [...] Currently in relapse. Hemoglobin yesterday 8.8. Platelets [id number]. - weekly CBC. Transfusion to maintain above [...] EDT): I received a call from nurse rehabilitation caseworker in the field reporting that over the [...] that time. Coronary artery disease invo lving [place] coronary artery of [place] heart without angina pectoris 06/12/2017 Overview [...] was that I can find were from [phone] Assessment/plan: Dyslipidemia with patient currently taking Lipitor [...] as of this encounter (statuses as of 09/23/2024) Resolved Problems Problem Noted Date Diagnosed Date [...] as of this encounter (statuses as of 09/23/2024) Immunizations Name Administration Dates Next Due COVID-19 [...] encounter Miscellaneous Notes * Telephone Encounter - Joyce Tinajero RPh - 09/23/2024 2:56 PM ESTSigned Prescriptions: Disp Refills Venlafaxine HCl ER 150 MG Oral Capsule Ext*90 Cap*2 Sig: TAKE ONE CAPSULE BY MOUTH EVERY DAY do not cut, crush, or chew Authorizing Provider: DHRUV MOSS Ordering User: JOYCE TINAJERO * Telephone Encounter - Interface, E-Rx Ss Inbound - 09/23/2024 12:05 PM EST Pending Prescriptions: Disp Refills Venlafaxine HCl ER 150 MG Oral Capsule Ext*90 Cap*0 Sig: TAKE ONE CAPSULE BY MOUTH EVERY DAY do not cut, crush, or chew documented in this encounter Plan of Treatment Upcoming Encounters Date Type Department Care Team (Late st Contact Info) Description 09/25/2024 7:00 AM EST Laboratory Lab Mobile Phlebotomy [facility] [address] [place], [place] [address] [facility], [facility] Mobile Home Draw [address] [place], [place] [address] 09/30/2024 10:45 AM EST Office Visit Ophthalmology, [facility] [address] [place] [id number] Fernando Damon DO [address] [place] [address] 10/02/2024 7:00 AM EST Laboratory Lab Mobile Phlebotomy [facility] [address] [place] [address] [facility], [facility] Draw [address] [employer] [place], [place] [address] 10/08/2024 10:00 AM EST Home Visit [facility] [place], [facility] [address] [place] [address] Marisa Pacheco, TANYA [address] [place] [address] 10/09/2024 7:00 AM EST Laboratory Lab Mobile Phlebotomy [facility] [address] [place] [address] [facility], [facility] [address] [place] [address] 10/16/2024 7:00 AM EST Laboratory Lab Mobile Phlebotomy [facility] [address] [place] [address] [address] [facility], [facility] Draw [address] [place] [address] 10/16/2024 1:45 PM EST [facility] [place] [address] [place] [phone] Jitendra Aguero MD [address] [facility] [place], [place] [address] 2024 7:00 AM EST Laboratory Lab Mobile Phlebotomy [facility] [address] [place] [address] [facility], [facility] Draw [address] [place], [place] [address] 10/30/2024 7:00 AM EST Laboratory Lab Mobile Phlebotomy [facility] [address] [place] [address] [address] [facility], [facility] [address] [place] [address] 11/11/2024 2:00 PM EST Office Visit Pharmacy, [address] [place] [address] [place] [address] 11/15/2024 7:05 AM EST Laboratory Lab Mobile Phlebotomy [facility] [address] [place], [place] [address] [facility], [facility] Draw [address] [place], [place] [address] 11/20/2024 7:00 AM EST Laboratory Lab Mobile Phlebotomy [facility] [address] [place], [place] [address] [facility], [facility] Draw [address] [place], [place] [address] 11/27/2024 7:00 AM EST Laboratory Lab Mobile Phlebotomy [facility] [address] [place], [place] [address] [facility], [facility] Draw [address] [place], [place] [address] 12/04/2024 7:00 AM EST Laboratory Lab Mobile Phlebotomy [facility] [address] [place] [address] [facility], [facility] Draw [address] [place] [address] 12/11/2024 7:00 AM EST Laboratory Lab Mobile Phlebotomy [facility] [address] [place] [address] [facility], [facility] Draw [address] [place] [address] 12/18/2024 7:00 AM EST Laboratory Lab Mobile Phlebotomy [facility] [address] [place] [address] [facility], [facility] [address] [place] [address] 12/24/2024 2:30 PM EST Nurse Only Ancillary [address] [place] [address] Bernadinealley, Nurse [address] [place] [address] 12/25/2024 7:00 AM EST Laboratory Lab Mobile Phlebotomy [facility] [address] [place], [place] [address] [facility], [facility] [address], [place] [address] 01/01/2025 7:00 AM EST Laboratory Lab Mobile Phlebotomy [facility] [address] [place], [place] [address] [facility], [facility] Draw [address] [place] [address] 01/08/2025 7:00 AM EST Laboratory Lab Mobile Phlebotomy [facility] [address] [place] [address] [facility], [facility] Draw [address], [place] [address] 01/13/2025 11:40 AM EST Office Visit Family Medicine [address] [phone] Dhruv Moss MD [address] [place] [address] [place] [address] 01/15/2025 7:00 AM EST Laboratory Lab Mobile Phlebotomy [facility] [address] [place] [address] [facility], [facility] [address] [place], [place] [address] 01/22/2025 7:00 AM EDT Laboratory Lab Mobile Phlebotomy [facility] [address] [place] [address] [facility], [facility] Draw [address] [place] [address] 01/29/2025 7:00 AM EDT Laboratory Lab Mobile Phlebotomy [facility] [address] [place] [address] [facility], [facility] Draw [address] [place] [address] 02/05/2025 7:00 AM EDT Laboratory Lab Mobile Phlebotomy [facility] [address] [facility] [place] [address] [facility], [facility] Draw [address] [facility] [place] [address] 02/12/2025 7:00 AM EDT Laboratory Lab Mobile Phlebotomy [facility] [address] [facility] [place] [address] [facility], [facility] Draw [address] [facility] [place] [address] 02/19/2025 7:00 AM EDT Laboratory Lab Mobile Phlebotomy [facility] [address] [facility] [place] [address] [facility], [facility] Draw [address] [facility] [place] [address] 02/26/2025 7:00 AM EDT Laboratory Lab Mobile Phlebotomy [facility] [address] [facility] [place] [address] [facility], [facility] Draw [address] [facility] [place] [address] 03/05/2025 7:00 AM EDT Laboratory Lab Mobile Phlebotomy [facility] [address] [facility] [place] [address] [facility], [facility] Draw [address] [facility] [place] [address] 03/12/2025 7:00 AM EDT Laboratory Lab Mobile Phlebotomy [facility] [address] [facility] [place] [address] [facility], [facility] Draw [address] [facility] [place] [address] 03/19/2025 7:00 AM EDT Laboratory Lab Mobile Phlebotomy [facility] [address] [facility] [place] [address] [facility], [facility] Draw [address] [facility] [place] [address] 03/26/2025 7:00 AM EDT Laboratory Lab Mobile Phlebotomy [facility] [address] [facility] [place] [address] [facility], [facility] Draw [address] [facility] [place] [address] 04/02/2025 7:00 AM EDT Laboratory Lab Mobile Phlebotomy [facility] [address] [facility] [place] [address] [facility], [facility] Draw [address] [facility] [place] [address] 04/09/2025 7:00 AM EDT Laboratory Lab Mobile Phlebotomy [facility] [address] [facility] [place] [address] [facility], [facility] Draw [address] [facility] [place] [address] 04/16/2025 7:00 AM EDT Laboratory Lab Mobile Phlebotomy [facility] [address] [facility] [place] [address] [facility], [facility] Draw [address] [facility] [place] [address] 04/23/2025 7:00 AM EDT Laboratory Lab Mobile Phlebotomy [facility] [address] [facility] [place] [address] [facility], [facility] Draw [address] [facility] [place] [address] 04/30/2025 7:00 AM EDT Laboratory Lab Mobile Phlebotomy [facility] [address] [facility] [place] [address] [facility], [facility] Draw [address] [facility] [place] [address] 05/07/2025 7:00 AM EDT Laboratory Lab Mobile Phlebotomy [facility] [address] [facility] [place] [address] [facility], [facility] Draw [address] [facility] [place] [address] 05/14/2025 7:00 AM EDT Laboratory Lab Mobile Phlebotomy [facility] [address] [facility] [place] [address] [facility], [facility] Draw [address] [facility] [place] [address] 05/21/2025 7:00 AM EDT Laboratory Lab Mobile Phlebotomy [facility] [address] [facility] [place] [address] [facility], [facility] Mobile [facility] Draw [address] [facility] [place] [address] 07/21/2025 1:30 PM EDT Imaging Radiology [address] [place] [address] 08/04/2025 1:20 PM EDT Office Visit Family Medicine [address] [place] [phone] Dhruv Moss MD [address] [place] [address] [place] [address] Health Maintenance Due Date Last Done Comments *BISPHONATE OR OTHER ACCEPTABLE MEDICATION NEEDED FOR OSTEOPOROSIS (REFER TO SMARTSET #1146) 11/06/2023 Colonoscopy 05/06/2024 05/06/2019, 05/06/2019 CKD PHOS USE SMARTSET 83549 06/07/202405/14, 05/31/2023, 05/08/2023, Additional history exists COVID-19 [...] Additional history exists CKD HGB USE SMARTSET 32487 09/18/202509/18, 09/18/2024, 09/11/2024, Additional history exists DTap/Tdap Vaccines (3 - Td or Tdap) 11/10/2026 11/10/2016, 03/30/2011 VITAMIN D LEVEL ONCE IN A LIFETIME-USE SMARTSET# [id number] Completed 05/11/2015 RETIRED - COLONOSCOPY-EVERY 5 YRS [...] this encounter Medical Devices Implanted Type Area Warehouse Operations Manager Device Identifier Shelf Expiration Date Model / Serial / Lot Port Pwr Mri Isp Profile - [id number] Implanted:Qty: 1 on 07/24/2020 by Akash Castillo MD at OR [facility] Right: Chest CR BARD : PERIPHERAL VASCULAR 04/12/2021 [id number] / / [id number] documented as of this encounter Visit Diagnoses Diagnosis Recurrent major depressive disorder, in partial remission (HCC)- Primary ACP (advance care planning)- Primary Other specified counseling Immunodeficiency due to drugs (HCC) Type 2 diabetes mellitus with hyperglycemia, with long-term current use of insulin ([facility]) Recurrent major depressive disorder, in partial remission ([facility]) Type 2 diabetes mellitus with retinopathy without macular edema, unspecified laterality, unspecified retinopathy severity, unspecified whether half-way insulin use ([facility]) HTN, goal below 140/90 Unspecified essential hypertension Coronary artery disease involving [place] coronary artery of [place] heart without angina pectoris Acquired hypothyroidism Unspecified hypothyroidism Gastro-esophageal reflux disease without esophagitis Esophageal reflux Dyslipidemia, goal LDL below 70 Other and unspecified hyperlipidemia Coronary artery disease involving [place] coronary artery of [place] heart without angina pectoris- Primary MDS (myelodysplastic syndrome), high grade (HCC) High grade myelodysplastic syndrome lesions Thrombocytopenia ([facility]) Thrombocytopenia, unspecified Acquired hypothyroidism Unspecified hypothyroidism Hypomagnesemia Disorders of magnesium metabolism Insulin-requiring or dependent type II diabetes mellitus ([facility]) Type II or unspecified type diabetes mellitus without mention of complication, not stated as uncontrolled Urinary incontinence, unspecified type Stem cells transplant status ([facility]) 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 Recurrent major depressive disorder, in partial remission ([facility]) Myelodysplastic syndrome (HCC)- Primary Myelodysplastic syndrome, unspecified Coronary artery disease involving [place] coronary artery of [place] heart without angina pectoris HTN, goal below 140/90 Unspecified essential hypertension MDS (myelodysplastic syndrome), high grade (HCC) High grade myelodysplastic syndrome lesions Acquired hypothyroidism Unspecified hypothyroidism Type 2 diabetes mellitus with hemoglobin A1c goal of less than 8.0% ([facility]) Gastro-esophageal reflux disease without esophagitis Esophageal reflux Recurrent major depressive disorder, in partial remission ([facility]) Acute cystitis without hematuria Acute cystitis Fall in home, initial encounter- Primary Ambulatory dysfunction MDS (myelodysplastic syndrome), high grade (HCC) High grade myelodysplastic syndrome lesions Type 2 diabetes mellitus with hemoglobin A1c goal of less than 8.0% ([facility]) Age-related osteoporosis without current pathological fracture Senile osteoporosis MDS (myelodysplastic syndrome), high grade (HCC)- Primary High grade myelodysplastic syndrome lesions Stem cells transplant status ([facility]) 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 Type 2 diabetes mellitus with hemoglobin A1c goal of less than 8.0% ([facility]) Advanced care planning/counseling discussion Other specified counseling Recurrent major depressive disorder, in partial remission ([facility]) MDS (myelodysplastic syndrome), high grade (HCC)- Primary High grade myelodysplastic syndrome lesions Chronic kidney disease, stage 3a (HCC) Type 2 diabetes mellitus with both eyes affected by moderate nonproliferative retinopathy and macular edema, with long-term current use of insulin (HCC) Screening mammogram for breast cancer documented in [...] Adult Child Health Care Agent Care Teams Slabbing Machine Operator Relationship Specialty Start Date End Date Dhruv Moss MD [address] [place] [address] [place] [address] PCP - General Family Medicine 08/27/21 documented as of this encounter
--- OUTSIDE RECORDS SUMMARY | 2024-10-10 00:27 | External Medical Summary | Summary of Care ---
Author Name Unknown Organization [facility] Address [address] [place] [address] Phone [phone] Care Team Providers Care Director Supply Name Role Phone Dhruv Moss MD Primary Care Provide r Encounter Details Date Type Department Care Team (Latest Contact Info) Description 09/23/2024 9:00 AM EST [facility] [address] [facility] [place] [address] Tremaine Morgan PA-C [address] [place] [address] MDS (myelodysplastic syndrome), high grade (HCC)*; Chronic kidney disease, stage 3a ([facility]); Type 2 diabetes mellitus with both eyes affected by moderate nonproliferative retinopathy and macular edema, with long-term current use of insulin (HCC); Advanced care planning/counseling discussion; Ambulatory dysfunction Allergies No known active allergiesdocumented as of this encounter (statuses as of 09/24/2024) Medications Diclofenac Sodium 1 % External GelIndications:kn ee pain Apply topically to affected area . Apply to bilateral knees Active Prochlorperazine Maleate 10 MG Oral Tablet (Compazine)Indica tions:H/O allogeneic bone marrow transplant (HCC) Take by mouth 1 Tablet every 6 hours as needed for Nausea. 60 Tablet 3 022 Active Leversense Verio Flex System w/Device Kit Use as directed . Active Acetaminophen 500 MG Oral Tablet Take 1 Tablet by mouth every 6 hours as needed. Active Magnesium 100 MG Oral Capsule Take 1 Capsule by mouth in the morning. Active Pen Blain 32G X 4 MM Use as directed. Use to inject insulin up to 4 times daily. 400 Each 3 4 7:20 AM EDT Active Atorvastatin Calcium 40 MG Oral Tablet (Lipitor)Indicati ons:Dyslipidemia, goal LDL below 70 TAKE ONE TABLET BY MOUTH IN THE MORNING 90 Tablet 2 024 Active NatSent In Vitro Strip (Glucose Blood)Indications :Type 2 diabetes mellitus with hemoglobin A1c goal of less than 8.0% (HCC) Use to test blood sugar three times a day DXe11.9 300 Strip 3 Active Acyclovir 800 MG Oral Tablet (Zovirax)Indicati ons:MDS (myelodysplastic syndrome), high grade (HCC) TAKE ONE TABLET BY MOUTH TWICE DAILY in the morning and before bedtime 60 Tablet 11 024 Active Isosorbide Mononitrate ER 30 MG Oral Tablet Extended Release 24 Hour (Imdur)Indication s:Coronary artery disease involving [place] coronary artery [...] BREAKFAST OR OTHER MEDICATIONS 90 Tablet 1 Active Nitroglycerin 0.4 MG Sublingual Tablet [...] both eyes and macular edema, unspecified whether concrete pourer insulin use (HCC) 1.25 mg IZ PRN 07/17/2024 07/17/2025 Active ROPivacaine (Naropin) inj 1.5 mgIndications: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 Date of Transplant: 09/01/2021 Conditioning Regimen: Fludarabine / Busulfan 2 with post-transplant Cytoxan ABO/Rh: A Positive CMV status: CMV Positive--- GRID: [id number] / DID: [id number] Matched Unrelated 10/24--- DPB1 Match ABO/Rh: A [...] & Plan (04/04/2023 4:21 PM EDT): Platelets [id number] on 03/20 Questionable hematuria Urinary incontinence 09/12/2022 [...] failure. Does not have any evidence of pbbxp-clfajf-seej disease Assessment & Plan (09/23/2024 10:42 AM [...] Currently in relapse. Hemoglobin yesterday 8.8. Platelets [id number]. - weekly CBC. Transfusion to maintain above [...] EDT): I received a call from nurse correctional counselor/case manager in the field reporting that over [...] that time. Coronary artery disease invo lving [place] coronary artery of [place] heart without angina pectoris 06/12/2017 Overview (06/12/2017): [...] was that I can find were from [phone] Assessment/plan: Dyslipidemia with patient currently taking Lipitor [...] as of this encounter (statuses as of 09/24/2024) Resolved Problems Problem Noted Date Diagnosed Date [...] as of this encounter (statuses as of 09/24/2024) Immunizations Name Administration Dates Next Due COVID-19 [...] Sign Reading Time Taken Comments Blood Pressure 118/58 09/23/2024 9:51 AM EST Pulse 90 09/23/2024 9:51 AM EST Temperature - - Respiratory Rate - - Oxygen Saturation 95% 09/23/2024 9:51 AM EST Inhaled Oxygen Concentration - - [...] documented in this encounter Progress Notes * Tremaine Morgan PA-C - 09/23/2024 9:38 AM EST Images from the original note were not included. [facility] Provider Visit Assessment and Plan Assessment & Plan MDS (myelodysplastic syndrome), high grade (HCC) Weekly bloodwork PRBC and platelet transfusions prn, approx once a week Chronic kidney disease, stage 3a (HCC) Renal function stable overall Type 2 diabetes mellitus with both eyes affected by moderate nonproliferative retinopathy and macular edema, with long-term current use of insulin (HCC) "RED FLAG" Diabetic symptoms: Rapid Weight Loss, Confusion, and Vision Changes Goal HgbA1c <8 Diabetic Complications Vascular (examples: PVD, PAD, CAD, CVA) Neurologic (example: Peripheral Neuropathy) Medication Regimen Metformin Basal/Long Acting Insulin Bolus/Short Acting Insulin DM Secondary Prevention Moderate-High Intensity Statin Additional Comments Follows with MTM Blood sugar well controlled Continues on jojo CGM Advanced care planning/counseling discussion Ambulatory dysfunction Encourage use of assistive device, especially when outside the home Remains high risk for falls, fractures, and bleeding Additional Medical Decision Making: Patient lives with spouse MDS - s/p stem cell transplant Daughter is RN and assists with care Labs weekly, transfusions prn Ongoing fatigue, worse when hgb is low Has not reviewed POLST with family yet, has blank copy Following with hem/onc and PCP Scheduled appointments in the next 60 days: Future Appointments-next 60 days Date/Time Provider Specialty Dept Phone 09/25/2024 7:00 AM [facility] [phone] 09/30/2024 10:45 AM Fernando Damon DO Ophthalmology [phone] 10/02/2024 7:00 AM [facility] [phone] 10/08/2024 10:00 AM Marisa Pacheco, TANYA [facility] [phone] 10/09/2024 7:00 AM [facility] [phone] 10/16/2024 7:00 AM [facility] [phone] 10/16/2024 1:45 PM (Arrive by 1:30 PM) Jitendra Aguero MD Hematology Oncology [phone] 2024 7:00 AM [facility] [phone] 10/30/2024 7:00 AM [facility] [phone] 11/11/2024 2:00 PM [facility] [phone] 11/15/2024 7:05 AM [facility] [phone] 11/20/2024 7:00 AM [facility] [phone] 11/27/2024 7:00 AM [facility] [phone] 12/04/2024 7:00 AM [facility] [phone] 12/11/2024 7:00 AM [facility] [phone] 12/18/2024 7:00 AM [facility] [phone] 12/24/2024 2:30 PM Cristina, Nurse [facility] [phone] 12/25/2024 7:00 AM [facility] [phone] 01/01/2025 7:00 AM [facility] [phone] 01/08/2025 7:00 AM [facility] [phone] 01/13/2025 11:40 AM (Arrive by 11:25 AMDhruv Harris MD [facility] [phone] 01/15/2025 7:00 AM [facility] [phone] 01/22/2025 7:00 AM [facility] [phone] 01/29/2025 7:00 AM [facility] [phone] 02/05/2025 7:00 AM [facility] [phone] 02/12/2025 7:00 AM [facility] [phone] 02/19/2025 7:00 AM [facility] [phone] 02/26/2025 7:00 AM [facility] [phone] 03/05/2025 7:00 AM [facility] [phone] 03/12/2025 7:00 AM [facility] [phone] 03/19/2025 7:00 AM [facility] [phone] 03/26/2025 7:00 AM [facility] [phone] 04/02/2025 7:00 AM [facility] [phone] 04/09/2025 7:00 AM [facility] [phone] 04/16/2025 7:00 AM [facility] [phone] 04/23/2025 7:00 AM [facility] [phone] 04/30/2025 7:00 AM [facility] [phone] 05/07/2025 7:00 AM [facility] [phone] 05/14/2025 7:00 AM [facility] [phone] 05/21/2025 7:00 AM [facility] [phone] 07/21/2025 1:30 PM (Arrive by 1:15 PM) [facility] Radiology [phone] 08/04/2025 1:20 PM (Arrive by 1:05 PM) Dhruv Moss MD Family Medicine [phone] A total of 30 minutes was spent face to face (via video-based telemedicine if designated as a telemedicine visit) Subjective Subjective Is this a Telemedicine Visit? No, this is an Home Visit. Reason For [facility] Visit: Follow-Up Current Concerns: Ruth Burger is a 73 year old female seen today for a [facility] provider visit. PMH includes MDS s/p SCT, CAD, HLD, HTN, IDDM, ILD Today's concerns are: Denies concerns Reports feeling at baseline overall Has ongoing fatigue, worse when hgb is low Denies SOB at rest Denies chest pain, palpitations Denies cough, fever/chills Ambulating independently in the home, has cane/walker for outside Denies recent falls, last fall 07/2024, without injury Additional Current Outpatient Medications Medication Sig Dispense Refill Diclofenac Sodium 1 % External Gel Apply topically to affected area . Apply to bilateral knees Prochlorperazine Maleate 10 MG Oral Tablet (Compazine) Take by mouth 1 Tablet every 6 hours as needed for Nausea. 60 Tablet 3 Leversense Verio Flex System w/Device Kit Use as directed . Acetaminophen 500 MG Oral Tablet Take 1 Tablet by mouth every 6 hours as needed. Magnesium 100 MG Oral Capsule Take 1 Capsule by mouth in the morning. Venlafaxine HCl ER 150 MG Oral Capsule Extended Release 24 Hour (Effexor XR) TAKE ONE CAPSULE BY MOUTH EVERY DAY do not cut, crush, or chew 90 Capsule 1 Pen Blain 32G X 4 MM Use as directed. Use to inject insulin up to 4 times daily. 400 Each 3 Atorvastatin Calcium 40 MG Oral Tablet (Lipitor) TAKE ONE TABLET BY MOUTH IN THE MORNING 90 Tablet 2 OneTouch Verio In Vitro Strip (Glucose Blood) Use to test blood sugar three times a day DXe11.9 300Strip 3 Acyclovir 800 MG Oral Tablet (Zovirax) TAKE ONE TABLET BY MOUTH TWICE DAILY in the morning and before bedtime 60 Tablet 11 Isosorbide Mononitrate ER 30 MG Oral Tablet Extended Release 24 Hour (Imdur) TAKE ONE TABLET BY MOUTH IN THE MORNING 90 Tablet 1 Omeprazole 20 MG Oral Capsule Delayed Release (PriLOSEC) Take 1 Capsule by mouth in the morning and1 Capsule before bedtime. 180 Capsule 2 Metoprolol Succinate ER 50 MG Oral Tablet Extended Release 24 Hour (toPROL XL) TAKE ONE TABLET BY MOUTH IN THE MORNING 90 Tablet 1 metFORMIN HCl 1000 MG Oral Tablet (Glucophage) TAKE 1 TABLET BY MOUTH TWICE DAILY WITH MORNING AND EVENING MEALS 180 Tablet 1 Levothyroxine Sodium 88 MCG Oral Tablet (Levoxyl) TAKE ONE TABLET BY MOUTH FIRST THING IN THE MORNING AT LEAST 30 MINUTES BEFORE BREAKFAST OR OTHER MEDICATIONS 90 Tablet 1 Nitroglycerin 0.4 MG Sublingual Tablet Sublingual (Nitrostat) Place 1 Tablet under the tongue every5 minutes as needed for Pain, Chest. up to 3 doses in 15 minutes 25 Tablet 2 General Sentiment Lancets 30G Use to test blood sugar three times a day DXe11.9 300 Each 3 Insulin Glargine Solostar 100 UNIT/ML Subcutaneous Solution Pen-injector (Lantus SoloStar) Inject 16 Units under the skin in the morning. 30 mL 3 Ondansetron HCl 8 MG Oral Tablet Take 1 Tablet by mouth every 8 hours as needed for Nausea. 60 Tablet 3 LubriFresh P.M. Ophthalmic Ointment Instill 1 Tube into the right eye once. Apply to inside of eyelid daily at night Probiotic Oral Tablet Chewable Take by mouth daily. NovoLOG FlexPen 100 UNIT/ML Subcutaneous Solution Pen-injector (insulin aspart) Inject 8 units withbreakfast, 4 units with lunch, and 6 units with dinner + sliding scale of 1 units per every 20 [id number] MAX DAILY DOSE 50 units 45 mL 3 Current Facility-Administered Medications Medication Dose Route Frequency Provider Last Rate Last Admin NSS 0.9% 1,000 mL bolus infusion 1,000 mL Intravenous Daily PRN Chinmay Rodriguez PA-C 1,000 mL at 12/08/21 1137 bevaCIZumab (Avastin) inj 1.25 mg 1.25 mg Intravitreal PRN 1.25 mg at 08/28/24 1422 ROPivacaine (Naropin) inj 1.5 mg 1.5 mg Perineural PRN 1.5 mg at 08/28/24 1421 I have reviewed the following results: CBC Objective Objective Vitals: 09/23/24 0951 Pulse: 90 SpO2: 95% BP: 118/58 Last Weights: Wt Readings from Last 3 Encounters: 07/05/24 71.2 kg (157 lb) 07/02/24 71.7 kg (158 lb) 03/28/24 72.8 kg (160 lb 8 oz) Last BPs: BP Readings from Last 4 Encounters: 09/23/24 118/58 08/13/24 118/52 07/22/24 118/60 07/05/24 119/63 General: alert and no distress Neuro: alert & oriented x 3 with fluent speech Heart: regular rate & rhythm and no murmur Lungs: lungs clear to auscultation, no wheeze, no rales, no rhonchi Abdomen: abdomen soft, non-tender, and normal bowel sounds Ext: Normal extremities without edema , some bruising noted to bilat arms documented in this encounter Miscellaneous Notes * Assessment & Plan Note - Tremaine Morgan PA-C - 09/23/2024 3:36 PM EST Associated Problem(s): Ambulatory dysfunction Encourage use of assistive device, especially when outside the home Remains high risk for falls, fractures, and bleeding * ACP (Advance Care Planning) - Tremaine Morgan PA-C - 09/23/2024 3:18 PM EST Patient-centered Communication 09/23/2024 The patient/surrogate voluntarily agreed to participate in advance care planning discussion. They were advised that this is a separate service which may incur out of pocket cost in the form of copayment and/or deductibles. Location: Home Individual(s) present for conversation: Patient and Spouse Decisions Synopsis Smart[facility] Most Recent Value Past ~10 years 07/22/2024 16:14 Decisions CPR decision: Patient chooses CPR 07/22/2024 Patient chooses CPR Intubation/Mechanical Ventilation decision: Patient chooses Intubation/mechanical ventilation 07/22/2024 Patient chooses Intubation/mechanical ventilation Non-invasive ventilation or BIPAP decision: Patient chooses non-invasive ventilation. Select interventions below 06/21/2024 Non-Invasive Ventilation Interventions: NIV 06/21/2024 Antibiotic therapy decision: Patient chooses Antibiotic therapy 07/22/2024 Patient chooses Antibiotic therapy Artificial nutrition decision: Undecided about Artificial nutrition 06/21/2024 IV hydration decision: Patient chooses IV hydration 06/21/2024 Chemotherapy decision: Declines Chemotherapy 07/22/2024 Declines Chemotherapy Radiation therapy decision: Declines Radiation therapy 07/22/2024 Declines Radiation therapy Surgical procedure(s) decision: Undecided about Surgical procedure 03/23/2023 Blood transfusion decision: Patient chooses Blood transfusion 07/22/2024 Patient chooses Blood transfusion Lab draw decision: Patient chooses Lab draws 07/22/2024 Patient chooses Lab draws Hospice decision: Undecided about Hospice 07/22/2024 Undecided about Hospice Dying at home decision: Undecided about Dying at home 07/22/2024 Undecided about Dying at home Dialysis decision: Undecided about Dialysis 06/21/2024 Additional Comments Synopsis SmartLink Most Recent Value Past ~10 years 09/23/2024 15:18 Additional Comments Additional Comments: remains full code. Has blank POLST form to review with family 09/23/2024 remains full code. Has blank POLST form to review with family Discerning What Matters Most to the Patient: Synopsis [facility] Most Recent Value Past ~10 years 07/22/2024 16:10 Discerning What Matters Most to the Patient In their own words, patient's UNDERSTANDING of their illness is: I know I have cancer. There are days I feel good and then days I really can't do anything. 12/15/2021 Their current SYMPTOMS include: Tiredness;Nausea;Shortnes of breath;Reduced overall well being 07/22/2024 Tiredness;Nausea;Shortnes of breath;Reduced overall well being They say their illness has CHANGED THEIR LIFE by: Less enjoyment (quality of life);Feel like a burden to family/loved ones 07/22/2024 Less enjoyment (quality of life);Feel like a burden to family/loved ones The patient thinks COMPLICATIONS in the future may be: More hospitalizations; 07/22/2024 More hospitalizations; Was PROGNOSIS discussed? No 12/15/2021 The patient's HOPES are: Cure;Maintain current functional abilities;Avoid further hospitalization;Avoid the ICU;Avoid intubation/mechanical ventilation;Avoid the senior living;Avoid symptoms; with dignity (define below) 12/15/2021 with dignity, patient defines as: to not alone, not be a burden 12/15/2021 The patient's FEARS/WORRIES about illness are: Being a burden to family;Going back to the hospital;Going to a senior living;"Being a vegetable" (define below) 12/15/2021 "Being a vegetable", patient defines as: laying there without being able to do anything 12/15/2021 The patient's cultural or spiritual BELIEFS that may affect health care decisions: Restorationist deb 12/15/2021 Source: Content from [employer] Aligning Care With What Matters Most: Synopsis [facility] Most Recent Value Past ~10 years 09/23/2024 15:18 Aligning Care With What Matters Most In their own words, the patient's understanding of their prognosis: "i get my blood drawn every week and usually a transfusion" 09/23/2024 "i get my blood drawn every week and usually a transfusion" Interventions/Choices: CPR;Intubation/mechanical ventilation;Antibiotic therapy;Chemotherapy;Radiation therapy;Lab draws;Blood transfusion;Hospice; at home 07/22/2024 Rationale for Decisions Synopsis [facility] Most Recent Value Past ~10 years 12/15/2021 [...] Intubation/mechanical ventilation decision are: being on it snf 12/15/2021 being on it snf Source: Content from [employer] [facility] 10 minutes spent in direct [id number] discussion Tremaine reyes PA-C * Assessment & Plan Note - Tremaine Morgan PA-C - 09/23/2024 10:42 AM EST Associated Problem(s): MDS (myelodysplastic syndrome), high grade (HCC) Weekly bloodwork PRBC and platelet transfusions prn, approx once a week * Assessment & Plan Note - Tremaine Morgan PA-C - 09/23/2024 10:42 AM EST Associated Problem(s): 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 (HCC) "RED FLAG" Diabetic symptoms: Rapid Weight Loss, Confusion, and Vision Changes Goal HgbA1c <8 Diabetic Complications Vascular (examples: PVD, PAD, CAD, CVA) Neurologic (example: Peripheral Neuropathy) Medication Regimen Metformin Basal/Long Acting Insulin Bolus/Short Acting Insulin DM Secondary Prevention Moderate-High Intensity Statin Additional Comments Follows with MTM Blood sugar well controlled Continues on jojo CGM * Assessment & Plan Note - Tremaine Morgan PA-C - 09/23/2024 10:42 AM EST Associated Problem(s): Chronic kidney disease, stage 3a (HCC) Renal function stable overall documented in this encounter Plan of Treatment Upcoming Encounters Date Type Department Care Team (Late st Contact Info) Description 09/25/2024 7:00 AM EST Laboratory Lab [facility] [address] [place] [address] [id number] [facility] [address] [place] [address] 09/30/2024 10:45 AM EST Office Visit Ophthalmology, [facility] [address] [place] [address] Fernando Damon DO [address] [place] [address] 10/02/2024 7:00 AM EST Laboratory [facility] [address] [place] [address] [facility] [address] [place] [address] 10/08/2024 10:00 AM EST Home Visit [facility] [address] [place] [address] Marisa Pacheco, TANYA [address] [place] [address] 10/09/2024 7:00 AM EST Laboratory [facility] [address] [place] [address] [address] [facility] [address] [place] [address] 10/16/2024 7:00 AM EST Laboratory [facility] [address] [place] [address] [id number] [facility] [address] [place] [address] 10/16/2024 1:45 PM EST Office Visit Hematology/Oncology [facility] [address] [place] [address] Jitendra Aguero MD [address] [place] [address] 2024 7:00 AM EST Laboratory [facility] [address] [place] [address] [facility] [address] [place] [address] 10/30/2024 7:00 AM EST Laboratory [facility] [address] [place] [address] [facility] [address] [place] [address] 11/11/2024 2:00 PM EST Office Visit Pharmacy, [address] [place] [address] [place] [address] 11/15/2024 7:05 AM EST Laboratory [facility] [address] [place] [address] [facility] [address] [place] [address] 11/20/2024 7:00 AM EST Laboratory [facility] [address] [place] [address] [facility] [address] [place] [address] 11/27/2024 7:00 AM EST Laboratory [facility] [address] [place] [address] [facility] [address] [place] [address] 12/04/2024 7:00 AM EST Laboratory [facility] [address] [place] [address] [facility] [address] [place] [address] 12/05/2024 9:00 AM EST Home Visit [facility] [address] [place] [address] Tremaine Morgan PA-C [address] [place] [address] 12/11/2024 7:00 AM EST Laboratory [facility] [address] [place] [address] [facility] [address] [place] [address] [address] 12/18/2024 7:00 AM EST Laboratory [facility] [address] [place] [address] [facility] [address] [place] [address] 12/24/2024 2:30 PM EST Nurse Only Ancillary [address] [place] [address] [place], Nurse [address] [place] [address] 12/25/2024 7:00 AM EST Laboratory [facility] [address] [place] [address] [address] [address] [facility] [address] [place] [address] [address] 01/01/2025 7:00 AM EST Laboratory [facility] [address] [place] [address] [address] [address] [facility] [address] [place] [address] [address] [address] 01/08/2025 7:00 AM EST Laboratory [facility] [address] [place] [address] [address] [facility] [address] [place] [address] 01/13/2025 11:40 AM EST Office Visit Family Medicine [address] [place] [phone] Dhruv Moss MD [address] [place] [address] [place] [address] 01/15/2025 7:00 AM EST Laboratory [facility] [address] [place] [address] [facility] [address] [place] [address] 01/22/2025 7:00 AM EDT Laboratory [facility] [address] [place] [address] [facility] [address] [place] [address] 01/29/2025 7:00 AM EDT Laboratory [facility] [address] [place] [address] [facility] [address] [place] [address] 02/05/2025 7:00 AM EDT [facility] [address] [place] [address] M[facility] [address] [place] [address] 02/12/2025 7:00 AM EDT [facility] [address] [place] [address] [facility] [address] [place] [address] 02/19/2025 7:00 AM EDT [facility] [address] [place] [address] [facility] [address] [facility] [place] [address] 02/26/2025 7:00 AM EDT [facility] [address] [facility] [place] [address] M[facility] [address] [facility] [place] [address] 03/05/2025 7:00 AM EDT [facility] [address] [facility] [place] [address] M[facility] [address] [facility] [place] [address] 03/12/2025 7:00 AM EDT [facility] [address] [facility] [place] [address] M[facility] [address] [facility] [place] [address] 03/19/2025 7:00 AM EDT [facility] [address] [facility] [place] [address] Mvmg, [facility] [address] [place] [address] 03/26/2025 7:00 AM EDT [facility] [address] [facility] [place] [address] Mvmg, [facility] [address] [facility] [place] [address] 04/02/2025 7:00 AM EDT [facility] [address] [facility] [place] [address] Mvmg, [facility] [address] [facility] [place] [address] 04/09/2025 7:00 AM EDT [facility] [address] [facility] [place] [address] M[facility]mg[facility] [address] [facility] [place] [address] 04/16/2025 7:00 AM EDT [facility] [address] [place] [address] M[facility] [address] [facility] [place] [address] 04/23/2025 7:00 AM EDT [facility] [address] [place] [address] M[facility], [facility] [address] [place] [address] 04/30/2025 7:00 AM EDT [facility] [address] [place] [address] M[facility] [address] [place] [address] 05/07/2025 7:00 AM EDT [facility] [address] [place] [address] M[facility], [facility] [address] [place] [address] 05/14/2025 7:00 AM EDT [facility] [address] [place] [address] M[facility] [address] [facility] [place] [address] 05/21/2025 7:00 AM EDT [facility] [address] [place] [address] [facility] [address] [place] [address] 07/21/2025 1:30 PM EDT Imaging Radiology [address] [place] [address] 08/04/2025 1:20 PM EDT Office Visit Family Medicine [address] [place] [phone] Dhruv Moss MD [address] [place] [address] [place] [address] Health Maintenance Due Date Last Done Comments *BISPHONATE OR OTHER ACCEPTABLE MEDICATION NEEDED FOR OSTEOPOROSIS (REFER TO SMARTSET #1146) 11/06/2023 Colonoscopy 05/06/2024 05/06/2019, 05/06/2019 CKD PHOS USE SMARTSET 78797 06/07/202405/14, 05/31/2023, 05/08/2023, Additional history exists COVID-19 [...] Additional history exists CKD HGB USE SMARTSET 56713 09/18/202509/18, 09/18/2024, 09/11/2024, Additional history exists DTap/Tdap Vaccines (3 - Td or Tdap) 11/10/2026 11/10/2016, 03/30/2011 VITAMIN D LEVEL ONCE IN A LIFETIME-USE SMARTSET# [id number] Completed 05/11/2015 RETIRED - COLONOSCOPY-EVERY 5 YRS [...] this encounter Medical Devices Implanted Type Area Commercial Litigation Paralegal Device Identifier Shelf Expiration Date Model / Serial / Lot Port Pwr Mri Isp Profile - [id number] Implanted:Qty: 1 on 07/24/2020 by kAash Castillo MD at OR [facility] Right: Chest CR BARD : PERIPHERAL VASCULAR 04/12/2021 [id number] / / [id number] documented as of this encounter Visit Diagnoses [...] unspecified laterality, unspecified retinopathy severity, unspecified whether snf insulin use (HCC) HTN, goal below 140/90 Unspecified essential hypertension Coronary artery disease involving [place] coronary artery of [place] heart without angina pectoris Acquired hypothyroidism Unspecified hypothyroidism Gastro-esophageal reflux disease without esophagitis Esophageal reflux Dyslipidemia, goal LDL below 70 Other and unspecified hyperlipidemia Coronary artery disease involving [place] coronary artery of [place] heart without angina pectoris- Primary MDS (myelodysplastic [...] Myelodysplastic syndrome, unspecified Coronary 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
--- OUTSIDE RECORDS SUMMARY | 2024-10-10 00:27 | External Medical Summary | Summary of Care ---
Author Name Unknown Organization [facility] Address [address] [facility] [address] Phone [phone] Care Team Providers Care Call Center Manager Name Role Phone Dhruv Moss MD Primary Care Provide r Encounter Details Date Type Department Care Team (Late st Contact Info) Description 09/13/2024 Result Scan Unspecified Department [facility] [address] [facility] [phone] <No scans attached> Allergies No known active [...] chew 90 Capsule 1 04/01/2024 Active Pen [place] 32G X 4 MM Use as directed. [...] 24 Hour (Imdur)Indications:C oronary artery disease involving [place] coronary artery of [place] heart without angina pectoris,HTN, goal below 140/90 [...] edema, unspecified whether terminal carman insulin use ([facility]) 1.5 mg PERINEURAL PRN 07/17/2024 07/17/2025 Active documented as of this encounter (statuses as of 09/16/2024) Active Problems Patient Care Coordination No te Formatting of this note migh t be different from the original. Date of Transplant: 09/01/2021 Conditioning Regimen: Fludarabine / Busulfan 2 with post-transplant Cytoxan ABO/Rh: A Positive CMV status: CMV Positive--- GRID: [id number] / DID: [id number] Matched Unrelated 10/24--- DPB1 Match ABO/Rh: A [...] Thrombocytopenia 12/06/2022 Last Assessment & Plan: Platelets 75328 on 03/20 Questionable hematuria Urinary incontinence 09/12/2022 History of immunosuppression therapy 04/19/2022 ACP (advance care planning) 03/10/2022 Last Assessment & Plan: ACP nose done by Lyudmila Sterling December 15, 2021. No additional discussions occurred today due to time constrictions. 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 Does not have any evidence of zitcg-vaceup-hyyp disease Last Assessment & Plan: Continues to [...] -continue venlafaxine Coronary artery disease invo lving [place] coronary artery of [place] heart without angina pectoris 06/12/2017 Overview: S/P EDIL to LAD on 06/12/17 Last Assessment & Plan: No angina - Continue atorvastatin, isosorbide, metoprolol - no ASA due to thrombocytopenia Dyslipidemia, goal LDL below 70 11/25/2011 Last Assessment & Plan: Patient having no issues. She continues on Lipitor 40 mg daily Last lab I will was that I can find were from [phone] Assessment/plan: Dyslipidemia with patient currently taking Lipitor [...] mRNA, LNP-s, No Pre serve, 2-Dose Series (GOOD) 02/05/2021,01/08/2021 COVID-19, LNP-s, No Preserve , Ye-sucrose, [...] 09/16/2024 2:30 PM EST Office Visit Pharmacy, [address] [place] [address] [place] [address] 09/18/2024 7:00 AM EST [facility] [address] [employer] [facility] [place] [address] M[facility] [address] [facility] [place] [address] 09/23/2024 9:00 AM EST [facility] Visit [facility] [address] [facility] [place] [address] Tremaine Morgan PA-C [address] [facility] [place] [address] 09/25/2024 7:00 AM EST [facility] [address] [place] [address] M[facility]mg, [facility] [address] [facility] [place] [address] 09/30/2024 10:45 AM EST Office Visit Ophthalmology, [facility] [address] [facility] [place] [address] Fernando Damon DO [address] [place] [address] 10/02/2024 7:00 AM EST [facility] [address] [place] [address] [address] Mvmg, [facility] [address] [facility] [place] [address] 10/08/2024 10:00 AM EST Home Visit [facility] [address] [address] Marisa Pacheco, TANYA [address] [place] [address] 10/09/2024 7:00 AM EST [facility] [address] [employer] [place], [place] [address] Mvmg, [facility] Draw [address] [facility], [place] [address] 10/16/2024 7:00 AM EST [facility] [address] [employer] [facility], [place] [address] Mvmg, [facility] Draw [address] [facility], [place] [address] 10/16/2024 1:45 PM EST Office Visit Hematology/Oncology [facility] [address] [place] [phone] Jitendra Aguero MD [address] [place] [address] 2024 7:00 AM EST [facility] [address] [facility], [place] [address] Mvmg, [facility] [address] [facility], [place] [address] 10/30/2024 7:00 AM EST [facility] [address] [employer] [place], [place] [address] Mvmg, [facility] [address] [place] [employer] [facility], [place] [address] 11/05/2024 7:00 AM EST [facility] [address] [facility] [place], [place] [address] Mvmg, [facility] Draw [address] [facility] [place], [place] [address] 11/12/2024 7:00 AM EST [facility] [address] [place] [address] Mvmg, [facility] [address] [facility] [place] [address] 11/20/2024 7:00 AM EST [facility] [address] [place] [address] Mvmg, [facility] [address] [facility] [place] [address] 11/27/2024 7:00 AM EST [facility] [address] [place] [address] Mvmg, [facility] [address] [place] [address] 12/04/2024 7:00 AM EST [facility] [address] [place] [address] Mvmg, [facility] [address] [place] [address] 12/11/2024 7:00 AM EST [facility] [address] [place] [address] Mvmg, [facility] [address] [place] [address] 12/18/2024 7:00 AM EST [facility] [address] [place] [address] Mv[facility], [facility] [address] [place] [address] 12/24/2024 2:30 PM EST Nurse Only Ancillary [address] [place] [address] [place], Nurse [address] [place] [address] 12/25/2024 7:00 AM EST [facility] [address] [place] [address] Mvmg, [facility] [address] [place] [address] 01/01/2025 7:00 AM EST [facility] [address] [place], [place] [address] Mvmg, [facility] [address] [place], [place] [address] 01/08/2025 7:00 AM EST [facility] [address] [employer], [place] [address] Mvmg, [facility] [address] [place], [place] [address] 01/13/2025 11:40 AM EST Office Visit Family Medicine [address] [phone] Dhruv Moss MD [address] [place] [address] [place] [address] 01/15/2025 7:00 AM EST [facility] [address] [place], [place] [address] Mvmg, [facility] [address] [place], [place] [address] 01/22/2025 7:00 AM EDT [facility] [address] [place], [place] [address] Mvmg, [facility] [address] [place], [place] [address] 01/29/2025 7:00 AM EDT [facility] [address] [address] Mvmg, [facility] [address] [address] 02/05/2025 7:00 AM EDT [facility] [address] [employer], [place] [address] Mvmg, [facility] [address] [place], [place] [address] 02/12/2025 7:00 AM EDT [facility] [address] [place] [address] Mvmg, [facility]ml [facility] Draw [address] [place] [address] 02/19/2025 7:00 AM EDT [facility] [address] [place] [address] Mvmg, [facility] [address] [place] [address] 02/26/2025 7:00 AM EDT [facility] [address] [place] [address] Mvmg, [facility] [address] [place] [address] 03/05/2025 7:00 AM EDT [facility] [address] [place] [address] Mvmg, [facility] [address] [place] [address] 03/12/2025 7:00 AM EDT [facility] [address] [place] [address] Mvmg, [facility]ml [facility] [address] [place] [address] 03/19/2025 7:00 AM EDT [facility] [address] [place] [address] Mvmg, [facility] [address] [place] [address] 03/26/2025 7:00 AM EDT [facility] [address] [place] [address] Mvmg, [facility] [address] [place] [address] 04/02/2025 7:00 AM EDT [facility] [address] [facility] [address] Mvmg, [facility] [address] [facility] [place] [address] 04/09/2025 7:00 AM EDT [facility] [address] [facility] [place] [address] Mvmg, [facility] [address] [place] [address] 04/16/2025 7:00 AM EDT [facility] [address] [place] [address] Mvmg, [facility] [address] [place] [address] 04/23/2025 7:00 AM EDT [facility] [address] [place] [address] Mvmg, [facility] [address] [place] [address] 04/30/2025 7:00 AM EDT [facility] [address] [place] [address] Mvmg, [facility] Draw [address] [place] [address] 05/07/2025 7:00 AM EDT [facility] [address] [place] [address] Mvmg, [facility] [address] [employer] [place] [address] 05/14/2025 7:00 AM EDT [facility] [address] [place] [address] Mvmg, [facility] [address] [facility] [place] [address] 05/21/2025 7:00 AM EDT [facility] [address] [place] [address] Mvmg, [facility] [address] [employer] [place] [address] 07/21/2025 1:30 PM EDT Imaging Radiology [address] [place] [address] 08/04/2025 1:20 PM EDT Office Visit Family Medicine [address] [place] [phone] Dhruv Moss MD [address] [place] [address] [place] [address] Health Maintenance Due Date Last Done Comments *BISPHONATE OR OTHER ACCEPTABLE MEDICATION NEEDED FOR OSTEOPOROSIS (REFER TO SMARTSET #1146) 11/06/2023 Colonoscopy 05/06/2024 05/06/2019, 05/06/2019 CKD PHOS USE SMARTSET 24822 06/07/202405/14, 05/31/2023, 05/08/2023, Additional history exists COVID-19 [...] Additional history exists CKD HGB USE SMARTSET 69383 09/11/202509/11, 09/11/2024, 09/04/2024, Additional history exists DTap/Tdap Vaccines (3 - Td or Tdap) 11/10/2026 11/10/2016, 03/30/2011 VITAMIN D LEVEL ONCE IN A LIFETIME-USE SMARTSET# 34263 Completed 05/11/2015 RETIRED - COLONOSCOPY-EVERY 5 YRS [...] encounter Medical Devices Implanted Type Area Senior Scientist Device Identifier Shelf Expiration Date Model / Serial / Lot Port Pwr Mri Isp Profile - [id number] Implanted:Qty: 1 on 07/24/2020 by Akash Castillo MD at OR [facility] Right: Chest CR BARD : PERIPHERAL VASCULAR 04/12/2021 [id number] / / [id number] documented as of this encounter Procedures Procedure Name Priority Date/Time Associated Diagnosis Comments OUTSIDE LAB RESULTS 09/13/2024 documented in this encounter Results * OUTSIDE LAB RESULTS (09/13/2024) 09/13/2024 Jitendra Aguero MD LABORATORY documented in this encounter Advance Directives * [...] Agents on File Name Relationship Healthcare Agent [facility] p Communication Juanita [facility] Adult Child Health Care Agent Care Teams Call Center Manager Relationship Specialty Start Date End Date Dhruv Moss MD [address] [place] [address] [place] [address] PCP - General Family Medicine 08/27/21 documented as of this encounter
--- OUTSIDE RECORDS SUMMARY | 2024-10-10 00:27 | External Medical Summary ---
Author Name Unknown Address Unknown Organization K01:[facility] [address] [facility] [place] [address] Laboratory Report Ordering Provider Test Date Status ANN MUNGUIA 09/25/2024 08:42:00 Final Observation Date Value Abnormality Reference (Units ) Status SYNC LEUKOCYTES IN BLOOD BY AUTOMATED COUNT 09/25/2024 08:42:00 19.14 Above high normal 4.00-10.80 (K/uL) Final Neutrophils/100 leukocytes in Blood by Manual count 09/25/2024 08:42:00 34.0 Below low normal 40.0-75.0 (%) Final Lymphocytes/100 leukocytes in Blood by Manual count 09/25/2024 08:42:00 37.0 18.0-42.0 (%) Final Monocytes/100 leukocytes in Blood by Manual count 09/25/2024 08:42:00 4.0 1.0-11.0 (%) Final Metamyelocytes/100 leukocytes in Blood by Manual count 09/25/2024 08:42:00 1.0 Above high normal <=0.0 (%) Final Myelocytes/100 leukocytes in Blood by Manual count 09/25/2024 08:42:00 2.0 Above high normal <=0.0 (%) Final Blasts/100 leukocytes in Blood by Manual count 09/25/2024 08:42:00 22.0 Above high normal <=0.0 (%) Final Neutrophils [#/volume] in Blood by Manual count 09/25/2024 08:42:00 6.51 1.80-7.70 (K/uL) Final Lymphocytes [#/volume] in Blood by Manual count 09/25/2024 08:42:00 7.08 Above high normal 1.00-4.80 (K/uL) Final Monocytes [#/volume] in Blood by Manual count 09/25/2024 08:42:00 0.77 0.00-1.10 (K/uL) Final Metamyelocytes [#/volume] in Blood by Manual count 09/25/2024 08:42:00 0.19 Above high normal <=0.00 (K/uL) Final Myelocytes [#/volume] in Blood by Manual count 09/25/2024 08:42:00 0.38 Above high normal <=0.00 (K/uL) Final Blasts [#/volume] in Blood by Manual count 09/25/2024 08:42:00 4.21 Above high normal <=0.00 (K/uL) Final Variant lymphocytes [Presence] in Blood by Light microscopy 09/25/2024 08:42:00 Present Abnormal None Seen Final Neutrophils.vacuolated [Presence] in Blood by Light microscopy 09/25/2024 08:42:00 Present Abnormal None Seen Final Performing Location LAB[facility] [place] [address] [facility] [address]
--- OUTSIDE RECORDS SUMMARY | 2024-10-10 00:27 | External Medical Summary ---
Author Name Unknown Address Unknown Organization K01:[facility]ATORY [place] - [facility] [address] [facility] [address] [place] [address] Laboratory Report Ordering Provider Test Date Status ANN MUNGUIA 09/18/2024 08:25:00 Final Observation Date Value Abnormality Reference (Units ) Status WBC, Total 09/18/2024 08:25:00 21.99 Above high normal 4.00-10.80 (K/uL) Final RBC 09/18/2024 08:25:00 2.72 3.85-5.15 (M/uL) Final Hemoglobin 09/18/2024 08:25:00 8.1 Below low normal 12.0-15.3 (g/dL) Final HCT 09/18/2024 08:25:00 26.2 Below low normal 36.0-45.2 (%) Final MCV 09/18/2024 08:25:00 96.3 81.5-97.5 (fL) Final MCH 09/18/2024 08:25:00 29.8 27.0-34.0 (pg) Final MCHC 09/18/2024 08:25:00 30.9 32.0-36.0 (g/dL) Final RDW 09/18/2024 08:25:00 17.0 11.5-15.5 (%) Final Platelets 09/18/2024 08:25:00 4 Below lower panic limits 140-400 (K/uL) Final MPV 09/18/2024 08:25:00 12.1 6.6-11.1 (fL) Final Nucleated erythrocytes/100 leukocytes [Ratio] in Blood by Automated count 09/18/2024 08:25:00 0 <=0 (/100 WBCs) Final Performing Location LABORATORY [place] - [address] [place] [address]
--- OUTSIDE RECORDS SUMMARY | 2024-10-10 00:27 | External Medical Summary ---
Author Name Unknown Address Unknown Organization K01[facility] [address] [facility] [place] [address] Laboratory Report Ordering Provider Test Date Status ANN MUNGUIA 09/18/2024 08:25:00 Final Observation Date Value Abnormality Reference (Units ) Status SYNC LEUKOCYTES IN BLOOD BY AUTOMATED COUNT 09/18/2024 08:25:00 21.99 Above high normal 4.00-10.80 (K/uL) Final Neutrophils/100 leukocytes in Blood by Manual count 09/18/2024 08:25:00 33.0 Below low normal 40.0-75.0 (%) Final Lymphocytes/100 leukocytes in Blood by Manual count 09/18/2024 08:25:00 38.0 18.0-42.0 (%) Final Monocytes/100 leukocytes in Blood by Manual count 09/18/2024 08:25:00 11.0 1.0-11.0 (%) Final Metamyelocytes/100 leukocytes in Blood by Manual count 09/18/2024 08:25:00 2.0 Above high normal <=0.0 (%) Final Myelocytes/100 leukocytes in Blood by Manual count 09/18/2024 08:25:00 3.0 Above high normal <=0.0 (%) Final Blasts/100 leukocytes in Blood by Manual count 09/18/2024 08:25:00 13.0 Above high normal <=0.0 (%) Final Neutrophils [#/volume] in Blood by Manual count 09/18/2024 08:25:00 7.26 1.80-7.70 (K/uL) Final Lymphocytes [#/volume] in Blood by Manual count 09/18/2024 08:25:00 8.36 Above high normal 1.00-4.80 (K/uL) Final Monocytes [#/volume] in Blood by Manual count 09/18/2024 08:25:00 2.42 Above high normal 0.00-1.10 (K/uL) Final Metamyelocytes [#/volume] in Blood by Manual count 09/18/2024 08:25:00 0.44 Above high normal <=0.00 (K/uL) Final Myelocytes [#/volume] in Blood by Manual count 09/18/2024 08:25:00 0.66 Above high normal <=0.00 (K/uL) Final Blasts [#/volume] in Blood by Manual count 09/18/2024 08:25:00 2.86 Above high normal <=0.00 (K/uL) Final Variant lymphocytes [Presence] in Blood by Light microscopy 09/18/2024 08:25:00 Present Abnormal None Seen Final Neutrophils.vacuolated [Presence] in Blood by Light microscopy 09/18/2024 08:25:00 Present Abnormal None Seen Final Performing Location [facility] [place] [address] [facility] [address]
--- OUTSIDE RECORDS SUMMARY | 2024-10-10 00:28 | External Medical Summary | Summary of Care ---
Author Name Unknown Organization [facility] [address] [address] Phone [phone] Care Team Providers Care Beam House Inspector Name Role Phone Dhruv Moss MD Primary Care Provide r Reason for Visit * Reason Onset Date Comments Test Results Lab 09/05/2024 Encounter Details Date Type Department Care Team (Late st Contact Info) Description 09/05/2024 Telephone Hematology/Oncology [facility] [address] [place] [address] Jitendra Aguero MD [address] [place] [address] Test Results Lab Allergies No known active allergiesdocumented as of this encounter (statuses as of 09/05/2024) Medications Medication Sig Dispensed Refills Start Date End Date Status Diclofenac Sodium 1 % External GelIndications:knee pain Apply topically to affected area . Apply to bilateral knees Active Prochlorperazine Maleate 10 MG Oral Tablet (Compazine)Indicatio ns:H/O allogeneic bone marrow transplant (HCC) Take by mouth 1 Tablet every 6 hours as needed for Nausea. 60 Tablet 3 12/09/2021 Active PipetteToPadSquadio Flex System w/Device Kit Use as directed [...] chew 90 Capsule 1 04/01/2024 Active [place] 32G X 4 MM Use as directed. [...] 24 Hour (Imdur)Indications:C oronary artery disease involving belkofski coronary artery of belkofski heart without angina pectoris,HTN, goal below 140/90 [...] goal of less than 8.0% ([facility]) Use to test blood sugar three times a day DXe11.9 300 Each 3 07/22/2024 Active Insulin Glargine Solostar 100 UNIT/ML Subcutaneous Solution Pen-injector (Lantus SoloStar) Inject 16 Units under the skin in the morning. 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 Date of Transplant: 09/01/2021 Conditioning Regimen: Fludarabine / Busulfan 2 with post-transplant Cytoxan ABO/Rh: A Positive CMV status: CMV Positive--- GRID: [id number] / DID: [id number] Matched Unrelated 10/24--- DPB1 Match ABO/Rh: A [...] Thrombocytopenia 12/06/2022 Last Assessment & Plan: Platelets [id number] on 03/20 Questionable hematuria Urinary incontinence 09/12/2022 [...] failure. Does not have any evidence of kzwex-xztgbb-skij disease Last Assessment & Plan: Continues to [...] -continue venlafaxine Coronary artery disease invo lving belkofski coronary artery of belkofski heart without angina pectoris 06/12/2017 Overview: S/P EDIL to LAD on 06/12/17 Last Assessment & Plan: No angina - Continue atorvastatin, isosorbide, metoprolol - no ASA due to thrombocytopenia Dyslipidemia, goal LDL below 70 11/25/2011 Last Assessment & Plan: Patient having no issues. She continues on Lipitor 40 mg daily Last lab I will was that I can find were from [phone] Assessment/plan: Dyslipidemia with patient currently taking Lipitor [...] as of this encounter (statuses as of 09/05/2024) Resolved Problems Problem Noted Date Diagnosed Date Resolved Date Controlled substance agreement signed 03/04/2024 03/04/2024 Acute cystitis without hematuria 05/09/2023 07/22/2024 Last Assessment & Plan: Given history of urosepsis, will opt to treat with Keflex 500 mg p.o. Three times daily times 10 days follow-up culture Candidiasis, esophageal 03/10/2022/2 12/2021 Last Assessment & Plan: The patient has [...] as of this encounter (statuses as of 09/05/2024) Immunizations Name Administration Dates Next Due COVID-19 [...] No 08/13/2024 Does the household have a [facility] source of income? (Household - for ages [...] Telephone Encounter - Makenzie Barth LPN - 09/05/2024 7:25 AM EDT Called and spoke with patient's , Roberto, reviewed lab results with him: Hgb: 6.2 Plt: 3 He verbalized understanding and is agreeable to taking patient for transfusions today. Patient to receive 2 unit of prbc and 1 unit of platelets. Called [facility] blood bank. Spoke with Kaleb. Spoke with Mragoth at [facility]. Called [facility] central scheduling. Patient scheduled for today at 09:30 am. Patient's spouse verbalized understanding of appt time. Faxed order to [facility]/ blood bank. * Telephone Encounter - Makenzie Barth LPN - 09/05/2024 7:08 AM EDT ----- Message from Jitendra Aguero MD sent at 09/05/2024 6:55 AM EDT ----- Blood workup done on 09/04/2024: - WBC 17,100, H&H of 6.2/19.3, platelet count of 3000. I would like to transfuse 2 units of PRBC one bag of platelet at [facility]. - Lasix 20 mg IV before 2nd unit of blood. documented in this encounter Plan of Treatment Upcoming Encounters Date Type Department Care Team (Late st Contact Info) Description 09/11/2024 7:00 AM EDT Laboratory [facility] [address] [place] [address] [address] [facility] [address] [place] [address] 09/16/2024 2:30 PM EST Office Visit Pharmacy, [address] [place] [address] [place] [address] 09/18/2024 7:00 AM EST Laboratory Lab [facility] [address] [facility] [place] [address] [facility] [address] [facility] [place] [address] 09/23/2024 9:00 AM EST [facility] Visit [facility], [facility] [address] [place] [address] Tremaine Morgan PA-C [address] [place] [address] 09/25/2024 7:00 AM EST Laboratory Lab [facility] [address] [facility] [place] [address] [facility] [address] [facility] [place] [address] 09/30/2024 10:45 AM EST Office Visit Ophthalmology, [facility] [address] [place] [address] Fernando Damon, [address] [place] [address] 10/02/2024 7:00 AM EST Laboratory Lab [facility] [address] [facility] [place] [address] [facility] [address] [facility] [place] [address] 10/08/2024 10:00 AM EST Home Visit [facility] [place], [facility] [address] [place] [address] Marisa Pacheco, TANYA [address] [place] [address] 10/09/2024 7:00 AM EST Laboratory Lab [facility] [address] [place] [address] [facility] [address] [place], [place] [address] 10/16/2024 7:00 AM EST Laboratory [facility] [address] [place], [place] [address] [facility] [address] [facility] [address] 10/16/2024 1:45 PM EST Office Visit Hematology/Oncology [facility] [address] [facility] [place] [id number] Jitendra Aguero MD [address] [facility] [place] [address] 2024 7:00 AM EST Laboratory Lab [facility] [address] [place] [address] [facility] [address] [facility] [address] 10/30/2024 7:00 AM EST Laboratory Lab [facility] [address] [place], [place] [address] [facility] [address] [place] [address] 11/05/2024 7:00 AM EST Laboratory [facility] [address] [place] [address] [facility] [address] [place] [address] 11/12/2024 7:00 AM EST Laboratory [facility] [address] [place] [address] [facility] [address] [place] [address] 11/20/2024 7:00 AM EST Laboratory Lab [facility] [address] [place] [address] [facility] [address] [facility] [address] 11/27/2024 7:00 AM EST Laboratory Lab [facility] [address] [facility] [address] [facility] [address] [facility] [address] 12/04/2024 7:00 AM EST Laboratory [facility] [address] [facility] [address] [facility] [address] [facility] [address] 12/11/2024 7:00 AM EST Laboratory [facility] [address] [place] [address] [facility] [address] [facility] [address] 12/18/2024 7:00 AM EST Laboratory [facility] [address] [place] [address] [facility] [address] [facility] [address] 12/24/2024 2:30 PM EST Nurse Only Ancillary [address] [place] [address] [place], Nurse [address] [place] [address] 12/25/2024 7:00 AM EST Laboratory Lab [facility] [address] [employer] [address] [facility] [address] [facility] [address] 01/01/2025 7:00 AM EST Laboratory [facility] [address] [place] [address] [facility] [address] [place] [address] 01/08/2025 7:00 AM EST Laboratory [facility] [address], [place] [address] [facility] [address] [place] [address] 01/13/2025 11:40 AM EST Office Visit Family Medicine [address], [place] [id number] Dhruv Moss MD [address] [place] [address] [place] [address] 01/15/2025 7:00 AM EST Laboratory [facility] [address] [employer], [place] [address] [facility] [address] [facility] [address] 01/22/2025 7:00 AM EDT Laboratory Lab [facility] [address], [place] [address] [facility] [address] [place] [address] 01/29/2025 7:00 AM EDT Laboratory [facility] [address] [place] [address] [facility] [address] [place] [address] 02/05/2025 7:00 AM EDT Laboratory Lab [facility] [address] [place] [address] [facility] [address] [place] [address] 02/12/2025 7:00 AM EDT Laboratory Lab [facility] [address] [place] [address] [facility] [address] [place] [address] 02/19/2025 7:00 AM EDT Laboratory Lab [facility] [address] [place] [address] [facility] [address] [place] [address] 02/26/2025 7:00 AM EDT Laboratory Lab [facility] [address] [place] [address] [facility] [address] [place] [address] 03/05/2025 7:00 AM EDT Laboratory Lab [facility] [address] [place] [address] [facility] [address] [place] [address] 03/12/2025 7:00 AM EDT Laboratory Lab [facility] [address] [place] [address] [facility] [address] [place] [address] 03/19/2025 7:00 AM EDT Laboratory Lab [facility] [address] [place] [address] [facility] [address] [place] [address] 03/26/2025 7:00 AM EDT Laboratory Lab [facility] [address] [place] [address] [facility] [address] [place] [address] 04/02/2025 7:00 AM EDT Laboratory Lab [facility] [address] [place] [address] [facility] [address] [place] [address] 04/09/2025 7:00 AM EDT Laboratory Lab [facility] [address] [place] [address] [facility] [address] [facility] [address] 04/16/2025 7:00 AM EDT Laboratory Lab [facility] [address] [address] [facility] [address] [place] [address] 04/23/2025 7:00 AM EDT Laboratory Lab [facility] [address] [facility] [address] [facility] [address] [place] [address] 04/30/2025 7:00 AM EDT Laboratory Lab [facility] [address] [address] [facility] [address] [place] [address] 05/07/2025 7:00 AM EDT Laboratory Lab [facility] [address] [address] [facility] [address] [facility] [address] 05/14/2025 7:00 AM EDT Laboratory [facility] [address] [address] [facility] [address] [place] [address] 05/21/2025 7:00 AM EDT Laboratory Lab [facility] [address] [address] [facility] [address] [place] [address] 07/21/2025 1:30 PM EDT Imaging Radiology [address] [place] [address] 08/04/2025 1:20 PM EDT Office Visit Family Medicine [address] [place] [phone] Dhruv Moss MD [address] [place] [address] [place] [address] Health Maintenance Due Date Last Done Comments *BISPHONATE OR OTHER ACCEPTABLE MEDICATION NEEDED FOR OSTEOPOROSIS (REFER TO SMARTSET #1146) 11/06/2023 Colonoscopy 05/06/2024 05/06/2019, 05/06/2019 CKD PHOS USE SMARTSET 18804 06/07/202405/14, 05/31/2023, 05/08/2023, Additional history exists COVID-19 [...] Additional history exists CKD HGB USE SMARTSET 64240 09/04/202509/04, 09/04/2024, 08/28/2024, Additional history exists DTap/Tdap Vaccines (3 - Td or Tdap) 11/10/2026 11/10/2016, 03/30/2011 VITAMIN D LEVEL ONCE IN A LIFETIME-USE SMARTSET# 28477 Completed 05/11/2015 RETIRED - COLONOSCOPY-EVERY 5 YRS [...] this encounter Medical Devices Implanted Type Area Line Closer Device Identifier Shelf Expiration Date Model / Serial / Lot [place] Mri Isp Profile - [id number] Implanted:Qty: 1 on 07/24/2020 by Akash Castillo MD at [facility] Right: Chest CR BARD : PERIPHERAL VASCULAR 04/12/2021 [id number] / / [id number] documented as of this encounter Advance Directives [...] Adult Child Health Care Agent Care Teams Beam House Inspector Relationship Specialty Start Date End Date Dhruv Moss MD [address] [place] [id number] PCP - General Family Medicine 08/27/21 documented as of this encounter
--- OUTSIDE RECORDS SUMMARY | 2024-10-10 00:28 | External Medical Summary | Summary of Care ---
Author Name Unknown Organization [facility] Address [address] [facility] [place] [address] Phone [phone] Care Team Providers Care Laboratory Technician Name Role Phone Dhruv Moss MD Primary Care Provide r Reason for Visit * Reason Onset Date Comments Precert Pending 08/28/2024 17 MELINA MARCELO Encounter Details Date Type Department Care Team (Late st Contact Info) Description 08/28/2024 Telephone Ophthalmology, [facility] [address] [place] [address] Fernando Damon, [address] [place] [address] Precert Pending (17 MELINA MARCELO) Allergies No known active allergiesdocumented as of this encounter (statuses as of 09/02/2024) Medications Medication Sig Dispensed Refills Start Date End Date Status Diclofenac Sodium 1 % External GelIndications:knee pain Apply topically to affected area . Apply to bilateral knees Active Prochlorperazine Maleate 10 MG Oral Tablet (Compazine)Indicatio ns:H/O allogeneic bone marrow transplant (HCC) Take by mouth 1 Tablet every 6 hours as needed for Nausea. 60 Tablet 3 12/09/2021 Active OneTouch VerWeimi Flex System w/Device Kit Use as directed . 12/16/2021 Active Acetaminophen 500 MG Oral Tablet Take 1 Tablet by mouth every 6 hours as needed. Active NovoLIN R 100 UNIT/ML Injection Solution (insulin REGULAR human)Indications:Ty pe 2 diabetes mellitus with hemoglobin A1c goal of less than 8.0% (HCC) Inject 8 units with breakfast, 4 units with lunch, and 6 units with dinner + sliding scale of 1 units per every 20 over 140 MAX DAILY DOSE 50 units 50 mL 5 07/25/2023 Active Magnesium 100 MG Oral Capsule Take 1 Capsule by mouth in the morning. Active Venlafaxine HCl ER 150 MG Oral Capsule Extended Release 24 Hour (Effexor XR)Indications:Recur rent major depressive disorder, in partial remission (HCC) TAKE ONE CAPSULE BY MOUTH EVERY DAY do not cut, crush, or chew 90 Capsule 1 04/01/2024 Active Pen [place] 32G X 4 MM Use as directed. Use to inject insulin up to 4 times daily. 400 Each 3 04/05/2024 Active Atorvastatin Calcium 40 MG Oral Tablet (Lipitor)Indications :Dyslipidemia, goal LDL below 70 TAKE ONE TABLET BY MOUTH IN THE MORNING 90 Tablet 2 04/22/2024 Active Bravofly In Vitro Strip (Glucose Blood)Indications:Ty pe 2 [...] 24 Hour (Imdur)Indications:C oronary artery disease involving [place] coronary artery of [place] heart without angina pectoris,HTN, goal below 140/90 [...] Oral TabletIndications:MD Santos (myelodysplastic syndrome), high grade ([facility]) Take 1 Tablet by mouth every 8 hours as needed for Nausea. 60 Tablet 3 07/22/2024 Active LubriFresh P.M. Ophthalmic Ointment Instill 1 Tube into the right eye once. Apply to inside of eyelid daily at night Active Probiotic Oral Tablet Chewable Take by mouth daily. 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 Date of Transplant: 09/01/2021 Conditioning Regimen: Fludarabine / Busulfan 2 with post-transplant Cytoxan ABO/Rh: A Positive CMV status: CMV Positive--- GRID: [id number] / [id number]: [id number] Matched Unrelated 10/24--- DPB1 Match ABO/Rh: A [...] Thrombocytopenia 12/06/2022 Last Assessment & Plan: Platelets 79677 on 03/20 Questionable hematuria Urinary incontinence 09/12/2022 [...] failure. Does not have any evidence of uzgsy-ayxntj-gucy disease Last Assessment & Plan: Continues to [...] -continue venlafaxine Coronary artery disease invo lving [place] coronary artery of [place] heart without angina pectoris 06/12/2017 Overview: S/P EDIL to LAD on 06/12/17 Last Assessment & Plan: No angina - Continue atorvastatin, isosorbide, metoprolol - no ASA due to thrombocytopenia Dyslipidemia, goal LDL below 70 11/25/2011 Last Assessment & Plan: Patient having no issues. She continues on Lipitor 40 mg daily Last lab I will was that I can find were from [phone] Assessment/plan: Dyslipidemia with patient currently taking Lipitor [...] as of this encounter (statuses as of 09/02/2024) Resolved Problems Problem Noted Date Diagnosed Date [...] as of this encounter (statuses as of 09/02/2024) Immunizations Name Administration Dates Next Due COVID-19 [...] No 08/13/2024 Does the household have a [facility]? (Household - for ages [...] encounter Miscellaneous Notes * Telephone Encounter - Wanda Haines OSA - 08/29/2024 7:43 AM EDT Prescribing Provider: Marisol Diagnosis & ICD 10 code: Type 2 diabetes mellitus with moderate nonproliferative retinopathy ofboth eyes and macular edema, unspecified whether termite treater helper insulin use ([facility]) E11.3313 Medication: Eylea Eye Treated: OU Date of office visit: 08/28/24 documented in this encounter Plan of Treatment Upcoming Encounters Date Type Department Care Team (Late st Contact Info) Description 09/04/2024 7:00 AM EDT Laboratory Lab [facility] [address] [place] [address] [facility] [address] [place] [address] 09/11/2024 7:00 AM EDT Laboratory Lab [facility] [address] [place] [address] [facility] [address] [place] [address] 09/16/2024 2:30 PM EST Office Visit Pharmacy, [address] [place] [address] [place] [address] 09/18/2024 7:00 AM EST Laboratory Lab [facility] [address] [place] [address] [address] [address] [facility] [address] [place], [place] [address] 09/23/2024 9:00 AM EST [facility] Visit [facility], [facility] [address] [facility] [place] [address] Tremaine Morgan PA-C [address] [facility] [place] [address] 09/25/2024 7:00 AM EST Laboratory Lab [facility] [address] [place], [place] [address] [facility] [address] [place], [place] [address] 09/30/2024 10:45 AM EST Office Visit Ophthalmology, [facility] [address] [facility] [place] [address] Fernando Damon DO [facility] [place] [address] 10/02/2024 7:00 AM EST Laboratory Lab [facility] [address] [place], [place] [address] [facility] [place], [place] [address] 10/08/2024 10:00 AM EST Home Visit [facility], [facility] [address] [facility] [place] [address] Marisa Pacheco, TANYA [address] [facility] [place] [address] 10/09/2024 7:00 AM EST Laboratory Lab [facility] [address] [place], [place] [address] [facility] [address] [place] [address] 10/16/2024 7:00 AM EST Laboratory Lab [facility] [address] [place], [place] [address] [facility] [address] [place] [address] 10/16/2024 1:45 PM EST Office Visit Hematology/Oncology [facility] [address] [place] [phone] Jitendra Aguero MD [address] [place] [address] 2024 7:00 AM EST Laboratory Lab [facility] [address] [place] [address] [facility] [address] [place] [address] 10/30/2024 7:00 AM EST Laboratory Lab [facility] [address] [place], [place] [address] [facility] [address] [place] [address] 11/05/2024 7:00 AM EST Laboratory Lab [facility] [address] [place] [address] [facility] [address] [place] [address] 11/12/2024 7:00 AM EST Laboratory Lab [facility] [address] [place] [address] [facility] [address] [place] [address] 11/20/2024 7:00 AM EST Laboratory Lab [facility] [address] [place] [address] [facility] [address] [place] [address] 11/27/2024 7:00 AM EST Laboratory [facility] [address] [place] [address] [facility] [address] [place] [address] 12/04/2024 7:00 AM EST Laboratory Lab [facility] [address] [place] [address] [facility] [address] [place] [address] 12/11/2024 7:00 AM EST Laboratory Lab [facility] [address] [place] [address] [facility] [address] [place] [address] 12/18/2024 7:00 AM EST Laboratory Lab [facility] [address] [place] [address] [facility] [address] [place] [address] 12/24/2024 2:30 PM EST Nurse Only Ancillary [address] [place] [address] [place], Nurse [address] [place] [address] 12/25/2024 7:00 AM EST Laboratory [facility] [address] [place] [address] [facility] [address] [place] [address] 01/01/2025 7:00 AM EST Laboratory Lab [facility] [address] [facility] [place] [address] [facility] [address] [place] [address] 01/08/2025 7:00 AM EST Laboratory Lab [facility] [address] [place] [address] [facility] [address] [place] [address] 01/13/2025 11:40 AM EST Office Visit Family Medicine [address] [place] [phone] Dhruv Moss MD [address] [place] [address] [place] [address] 01/15/2025 7:00 AM EST Laboratory [facility] [address] [place], [place] [address] [facility] [address] [place] [address] 01/22/2025 7:00 AM EDT Laboratory Lab [facility] [address] [place], [place] [address] [facility] [address] [place] [address] 01/29/2025 7:00 AM EDT Laboratory Lab [facility] [address] [place] [address] [facility] [address] [place] [address] 02/05/2025 7:00 AM EDT Laboratory Lab [facility] [address] [facility] [place] [address] [facility] [address] [place] [address] 02/12/2025 7:00 AM EDT Laboratory Lab [facility] [address] [place] [address] [facility] [address] [place] [address] 02/19/2025 7:00 AM EDT Laboratory Lab [facility] [address] [place] [address] [facility] [address] [place] [address] 02/26/2025 7:00 AM EDT Laboratory Lab [facility] [address] [place] [address] [facility] [address] [place] [address] 03/05/2025 7:00 AM EDT Laboratory Lab [facility] [address] [place] [address] [facility] [address] [place] [address] 03/12/2025 7:00 AM EDT Laboratory Lab [facility] [address] [place] [address] [facility] [address] [place] [address] 03/19/2025 7:00 AM EDT Laboratory [facility] [address] [place] [address] [facility] [address] [place] [address] 03/26/2025 7:00 AM EDT Laboratory [facility] [address] [place] [address] [facility] [address] [place] [address] 04/02/2025 7:00 AM EDT Laboratory [facility] [address] [place] [address] [facility] [address] [place] [address] 04/09/2025 7:00 AM EDT Laboratory [facility] [address] [place] [address] [facility] [address] [place] [address] 04/16/2025 7:00 AM EDT Laboratory [facility] [address] [place] [address] [facility] [address] [place] [address] 04/23/2025 7:00 AM EDT Laboratory Lab [facility] [address] [place], [place] [address] [facility] [address] [place] [address] 04/30/2025 7:00 AM EDT Laboratory Lab [facility] [address] [place] [address] [facility] [address] [place] [address] 05/07/2025 7:00 AM EDT Laboratory Lab [facility] [address] [place] [address] [facility] [address] [place] [address] 05/14/2025 7:00 AM EDT Laboratory Lab [facility] [address] [place] [address] [facility] [address] [place] [address] 05/21/2025 7:00 AM EDT Laboratory Lab [facility] [address] [place] [address] [facility] [address] [place] [address] 07/21/2025 1:30 PM EDT Imaging Radiology [address] [place] [address] 08/04/2025 1:20 PM EDT Office Visit Family Medicine [address] [place] [phone] Dhruv Moss MD [address] [place] [address] [place] [address] Health Maintenance Due Date Last Done Comments *BISPHONATE OR OTHER ACCEPTABLE MEDICATION NEEDED FOR OSTEOPOROSIS (REFER TO SMARTSET #1146) 11/06/2023 Colonoscopy 05/06/2024 05/06/2019, 05/06/2019 CKD PHOS USE SMARTSET 01940 06/07/20242 04/2023, 05/31/2023, 05/08/2023, Additional history exists COVID-19 [...] 07/02/2024, 0 06/05/2023, 06/03/2022, Additional history exists CKD HGB USE SMARTSET 02135 08/28/202508/28, 08/28/2024, 08/21/2024, Additional history exists Diabetic Eye Exam 08/28/2025 08/28/2024, , 08/28/2024, Additional history exists DTap/Tdap Vaccines (3 - Td or Tdap) 11/10/2026 11/10/2016, 03/30/2011 VITAMIN D LEVEL ONCE IN A LIFETIME-USE SMARTSET# 87104 Completed 05/11/2015 RETIRED - COLONOSCOPY-EVERY 5 YRS [...] this encounter Medical Devices Implanted Type Area Skimmer Device Identifier Shelf Expiration Date Model / Serial / Lot Port Pwr Mri Isp Profile - [id number] Implanted:Qty: 1 on 07/24/2020 by Akash Castillo MD at OR [facility] Right: Chest CR BARD : PERIPHERAL VASCULAR 04/12/2021 [id number] / / [id number] documented as of this encounter Advance Directives [...] Agents on File Name Relationship Healthcare Agent [facility] p Communication Juanita Silva Adult Child Health Care Agent Care Teams Laboratory Technician Relationship Specialty Start Date End Date Dhruv Moss MD [address] [place] [address] [place] [address] PCP - General Family Medicine 08/27/21 documented as of this encounter
--- OUTSIDE RECORDS SUMMARY | 2024-10-10 00:28 | External Medical Summary | Summary of Care ---
Author Name Unknown Organization [facility] Address [address] [facility] [place] [address] Phone [phone] Care Team Providers Care Sales Account Leader Name Role Phone Dhruv Moss MD Primary Care Provide r Reason for Visit * Reason Onset Date Comments Precert Approved 08/28/2024 terrence Encounter Details Date Type Department Care Team (Late st Contact Info) Description 08/28/2024 Telephone Ophthalmology, [facility] [address] [place] [address] Fernando Damon, [address] [place] [address] Precert Approved (eylea) Allergies No known active allergiesdocumented as of this encounter (statuses as of 09/03/2024) Medications Medication Sig Dispensed Refills Start Date End Date Status Diclofenac Sodium 1 % External GelIndications:knee pain Apply topically to affected area . Apply to bilateral knees Active Prochlorperazine Maleate 10 MG Oral Tablet (Compazine)Indicatio ns:H/O allogeneic bone marrow transplant (HCC) Take by mouth 1 Tablet every 6 hours as needed for Nausea. 60 Tablet 3 12/09/2021 Active PersonalingToJumptap Verio Flex System w/Device Kit Use as [...] 24 Hour (Imdur)Indications:C oronary artery disease involving [place] coronary artery of [place] heart without angina pectoris,HTN, goal below 140/90 [...] Oral TabletIndications:MD Santos (myelodysplastic syndrome), high grade ([facility]) Take 1 Tablet by mouth [...] syndrome), high grade (HCC),Stem cells transplant status ([facility]),Acquired hypothyroidism 1000 mL IV DAILY [...] joint terminal attack controller insulin use (HCC) 1.5 mg PERINEURAL PRN 07/17/2024 07/17/2025 Active documented as of this encounter (statuses as of 09/03/2024) Active Problems Patient Care Coordination No te Formatting of this note migh t be different from the original. Date of Transplant: 09/01/2021 Conditioning Regimen: Fludarabine / Busulfan 2 with post-transplant Cytoxan ABO/Rh: A Positive CMV status: CMV Positive--- GRID: [id number] / DID: [id number] Matched Unrelated 10/24--- DPB1 Match ABO/Rh: A [...] Thrombocytopenia 12/06/2022 Last Assessment & Plan: Platelets [id number] on 03/20 Questionable hematuria Urinary incontinence 09/12/2022 [...] failure. Does not have any evidence of ptdtc-irsnqj-cxxm disease Last Assessment & Plan: Continues to [...] -continue venlafaxine Coronary artery disease invo lving [place] coronary artery of [place] heart without angina pectoris 06/12/2017 Overview: S/P EDIL to LAD on 06/12/17 Last Assessment & Plan: No angina - Continue atorvastatin, isosorbide, metoprolol - no ASA due to thrombocytopenia Dyslipidemia, goal LDL below 70 11/25/2011 Last Assessment & Plan: Patient having no issues. She continues on Lipitor 40 mg daily Last lab I will was that I can find were from [id number] Assessment/plan: Dyslipidemia with patient currently taking Lipitor [...] as of this encounter (statuses as of 09/03/2024) Resolved Problems Problem Noted Date Diagnosed Date [...] angioplasty with coronary stent 06/12/2017 04/23/2019 Overview: EIDL to LAD on 06/12/17 Venous stasis dermatitis of both lower extremities 07/04/2016 12/20/2018 Does not have health insurance 10/25/2012 05/01/2013 Depression 12/01/2009 07/23/2018 HYPERTENSION NOS 12/25/2013 MIGRAINE, UNSPECIFIED, WITHO UT MENTION OF INTRACTABLE MIGRAINE 07/23/2018 documented as of this encounter (statuses as of 09/03/2024) Immunizations Name Administration Dates Next Due COVID-19 mRNA, LNP-s, No Pre serve, 2-Dose Series (SunModular) 02/05/2021,01/08/2021 COVID-19, LNP-s, No Preserve , Ye-sucrose, [...] encounter Miscellaneous Notes * Telephone Encounter - Melani Gilmore OSA - 09/03/2024 8:30 AM EDT Auth was actually on file from back in 2020 * Telephone Encounter - Wanda Haines OSA - 08/29/2024 7:43 AM EDT Prescribing Provider: Marisol Diagnosis & ICD 10 code: Type 2 diabetes mellitus with moderate nonproliferative retinopathy ofboth eyes and macular edema, unspecified whether joint terminal attack controller insulin use ([facility]) E11.3313 Medication: Eylea Eye Treated: OU Date of office visit: 08/28/24 documented in this encounter Plan of Treatment Upcoming Encounters Date Type Department Care Team (Late st Contact Info) Description 09/04/2024 7:00 AM EDT Laboratory [facility] [address] [place] [address] [facility] [address] [place] [address] [address] 09/11/2024 7:00 AM EDT Laboratory [facility] [address] [place] [address] [address] [facility] [address] [place] [address] [address] 09/16/2024 2:30 PM EST Office Visit Pharmacy, [address] [place] [address] [place] [address] 09/18/2024 7:00 AM EST [facility] [facility] [address] [facility] [address] [facility], [place] [address] 09/23/2024 9:00 AM EST [facility] [address] [facility] [place] [address] Tremaine Morgan PA-C [facility] [place] [address] 09/25/2024 7:00 AM EST Laboratory [facility] [address] [facility], [place] [address] [facility] [address] [facility], [place] [address] 09/30/2024 10:45 AM EST [facility], [facility] [place] [address] Fernando Damon DO [address] [facility] [place] [address] 10/02/2024 7:00 AM EST Laboratory [facility] [address] [facility], [place] [address] [facility] [address] [facility], [place] [address] 10/08/2024 10:00 AM EST Home Visit [facility] [place] [address] [place] [address] Marisa Pacheco, RN [address] [place] [address] 10/09/2024 7:00 AM EST Laboratory [facility] [address] [place] [address] [facility] [address] [place] [address] 10/16/2024 7:00 AM EST Laboratory [facility] [address] [place], [place] [address] [facility] [address] [place], [place] [address] 10/16/2024 1:45 PM EST Office Visit Hematology/Oncology [facility] [place] [address] [place] [id number] Jitendra Aguero MD [address] [place] [address] 2024 7:00 AM EST Laboratory [facility] [address] [place], [place] [address] [facility] [address] [place], [place] [address] 10/30/2024 7:00 AM EST Laboratory [facility] [address] [place], [place] [address] [facility] [address] [place], [place] [address] 11/05/2024 7:00 AM EST Laboratory [facility] [address] [place], [place] [address] [facility] [address] [place] [address] 11/12/2024 7:00 AM EST Laboratory [facility] [address] [place] [address] [facility] [address] [place], [place] [address] 11/20/2024 7:00 AM EST Laboratory [facility] [address] [place], [place] [address] [facility] [address] [place] [address] 11/27/2024 7:00 AM EST Laboratory [facility] [address] [place] [address] [facility] [address] [place] [address] 12/04/2024 7:00 AM EST Laboratory [facility] [address] [place] [address] [facility] [address] [facility] [place] [address] 12/11/2024 7:00 AM EST Laboratory [facility] [address] [place] [address] [facility] [address] [place] [address] 12/18/2024 7:00 AM EST Laboratory [facility] [address] [place] [address] [facility] [address] [facility] [place] [address] 12/24/2024 2:30 PM EST Nurse Only Ancillary [address] [place] [address] [place], Nurse [address] [place] [address] 12/25/2024 7:00 AM EST Laboratory [facility] [address] [place] [address] [facility] [address] [address] 01/01/2025 7:00 AM EST Laboratory [facility] [address] [place] [address] [facility] [address] [place] [address] 01/08/2025 7:00 AM EST Laboratory [facility] [address] [employer] [place], [place] [address] [facility] [address] [facility] [place], [place] [address] 01/13/2025 11:40 AM EST Office Visit Family [address] [place] [phone] Dhruv Moss MD [address] [place] [address] [place] [address] 01/15/2025 7:00 AM EST Laboratory [facility] [address] [employer] [place], [place] [address] [facility] [address] [place], [place] [address] 01/22/2025 7:00 AM EDT Laboratory [facility] [address] [place], [place] [address] [facility] [address] [place] [address] 01/29/2025 7:00 AM EDT Laboratory [facility] [address] [place] [address] [facility] [address] [facility] [place] [address] 02/05/2025 7:00 AM EDT Laboratory [facility] [address] [place] [address] [facility] [address] [place] [address] 02/12/2025 7:00 AM EDT Laboratory [facility] [address] [place] [address] [facility] [address] [place] [address] 02/19/2025 7:00 AM EDT Laboratory [facility] [address] [place] [address] [facility] [address] [facility] [place] [address] 02/26/2025 7:00 AM EDT Laboratory [facility] [address] [place] [address] [facility] [address] [place] [address] 03/05/2025 7:00 AM EDT Laboratory [facility] [address] [place] [address] [facility] [address] [place] [address] 03/12/2025 7:00 AM EDT Laboratory [facility] [address] [facility] [place] [address] [facility] [address] [place] [address] 03/19/2025 7:00 AM EDT Laboratory [facility] [address] [facility] [place] [address] [facility] [address] [place] [address] 03/26/2025 7:00 AM EDT Laboratory [facility] [address] [place] [address] [facility] [address] [place] [address] 04/02/2025 7:00 AM EDT Laboratory [facility] [address] [facility] [place] [address] [facility] [address] [place] [address] 04/09/2025 7:00 AM EDT Laboratory [facility] [address] [facility] [place] [address] [facility] [address] [place] [address] 04/16/2025 7:00 AM EDT Laboratory [facility] [address] [place] [address] [facility] [address] [place] [address] 04/23/2025 7:00 AM EDT Laboratory [facility] [address] [place] [address] [facility] [address] [place] [address] 04/30/2025 7:00 AM EDT Laboratory [facility] [address] [place] [address] [facility] [address] [place] [address] 05/07/2025 7:00 AM EDT Laboratory [facility] [address] [place] [address] [facility] [address] [place] [address] 05/14/2025 7:00 AM EDT Laboratory [facility] [address] [place] [address] [facility] [address] [place] [address] 05/21/2025 7:00 AM EDT Laboratory [facility] [address] [place] [address] [facility] [address] [place] [address] 07/21/2025 1:30 PM EDT Imaging Radiology [address] [place] [address] 08/04/2025 1:20 PM EDT Office Visit Family Medicine [facility] [place] [id number] Dhruv Moss MD [address] [place] [address] [place] [id number] Health Maintenance Due Date Last Done Comments *BISPHONATE OR OTHER ACCEPTABLE MEDICATION NEEDED FOR OSTEOPOROSIS (REFER TO SMARTSET #1146) 11/06/2023 Colonoscopy 05/06/2024 05/06/2019, 05/06/2019 CKD PHOS USE SMARTSET 16095 06/07/202405/14, 05/31/2023, 05/08/2023, Additional history exists COVID-19 [...] Additional history exists CKD HGB USE SMARTSET 51578 08/28/202508/28, 08/28/2024, 08/21/2024, Additional history exists Diabetic Eye Exam 08/28/2025 08/28/2024, , 08/28/2024, Additional history exists DTap/Tdap Vaccines (3 - Td or Tdap) 11/10/2026 11/10/2016, 03/30/2011 VITAMIN D LEVEL ONCE IN A LIFETIME-USE SMARTSET# 00281 Completed 05/11/2015 RETIRED - COLONOSCOPY-EVERY 5 YRS [...] this encounter Medical Devices Implanted Type Area Cloth Dyeing Range Tender Device Identifier Shelf Expiration Date Model / Serial / Lot Port Pwr Mri Isp Profile - [id number] Implanted:Qty: 1 on 07/24/2020 by Akash Castillo MD at OR [facility] Right: Chest CR BARD : PERIPHERAL VASCULAR 04/12/2021 [id number] / / [id number] documented as of this encounter Advance Directives [...] File Name Relationship Healthcare Agent [facility] p Communication [facility] Adult Child Health Care Agent Care Teams Sales Account Leader Relationship Specialty Start Date End Date Dhruv Moss MD [address] [place] [id number] PCP - General Family Medicine 08/27/21 documented as of this encounter
--- OUTSIDE RECORDS SUMMARY | 2024-10-10 00:28 | External Medical Summary ---
Author Name Unknown Address Unknown Organization K01[facility] [address] [facility] [place] [address] Laboratory Report Ordering Provider Test Date Status ANN MUNGUIA 09/11/2024 08:42:00 Final Observation Date Value Abnormality Reference (Units ) Status SYNC LEUKOCYTES IN BLOOD BY AUTOMATED COUNT 09/11/2024 08:42:00 19.60 Above high normal 4.00-10.80 (K/uL) Final Neutrophils/100 leukocytes in Blood by Manual count 09/11/2024 08:42:00 25.0 Below low normal 40.0-75.0 (%) Final Lymphocytes/100 leukocytes in Blood by Manual count 09/11/2024 08:42:00 53.0 Above high normal 18.0-42.0 (%) Final Monocytes/100 leukocytes in Blood by Manual count 09/11/2024 08:42:00 4.0 1.0-11.0 (%) Final Eosinophils/100 leukocytes in Blood by Manual count 09/11/2024 08:42:00 2.0 0.0-6.0 (%) Final Metamyelocytes/100 leukocytes in Blood by Manual count 09/11/2024 08:42:00 2.0 Above high normal <=0.0 (%) Final Myelocytes/100 leukocytes in Blood by Manual count 09/11/2024 08:42:00 5.0 Above high normal <=0.0 (%) Final Blasts/100 leukocytes in Blood by Manual count 09/11/2024 08:42:00 9.0 Above high normal <=0.0 (%) Final Neutrophils [#/volume] in Blood by Manual count 09/11/2024 08:42:00 4.90 1.80-7.70 (K/uL) Final Lymphocytes [#/volume] in Blood by Manual count 09/11/2024 08:42:00 10.39 Above high normal 1.00-4.80 (K/uL) Final Monocytes [#/volume] in Blood by Manual count 09/11/2024 08:42:00 0.78 0.00-1.10 (K/uL) Final Eosinophils [#/volume] in Blood by Manual count 09/11/2024 08:42:00 0.39 0.00-0.70 (K/uL) Final Metamyelocytes [#/volume] in Blood by Manual count 09/11/2024 08:42:00 0.39 Above high normal <=0.00 (K/uL) Final Myelocytes [#/volume] in Blood by Manual count 09/11/2024 08:42:00 0.98 Above high normal <=0.00 (K/uL) Final Blasts [#/volume] in Blood by Manual count 09/11/2024 08:42:00 1.76 Above high normal <=0.00 (K/uL) Final Variant lymphocytes [Presence] in Blood by Light microscopy 09/11/2024 08:42:00 Present Abnormal None Seen Final Neutrophils.vacuolated [Presence] in Blood by Light microscopy 09/11/2024 08:42:00 Present Abnormal None Seen Final Performing Location LABORATORY [facility] [place] - [address] [place] [facility] [address]
--- OUTSIDE RECORDS SUMMARY | 2024-10-10 00:28 | External Medical Summary | Summary of Care ---
Author Name Unknown Organization [facility] Address [address] [facility] [place] [address] Phone [phone] Care Team Providers Care Lap Checker Name Role Phone Dhruv Moss MD Primary Care Provide r Reason for Visit * Reason Onset Date Comments Test Results 09/04/2024 Encounter Details Date Type Department Care Team (Late st Contact Info) Description 09/04/2024 Telephone [facility] Cale PADILLA [address] [facility] [place] [id number] Shaik Bill Howell MD [address] [facility] [place] [phone] Test Results Allergies No known active allergiesdocumented as of this encounter (statuses as of 09/04/2024) Medications Medication Sig Dispensed Refills Start Date End Date Status Diclofenac Sodium 1 % External GelIndications:knee pain Apply topically to affected area . Apply to bilateral knees Active Prochlorperazine Maleate 10 MG Oral Tablet (Compazine)Indicatio ns:H/O allogeneic bone marrow transplant (HCC) Take by mouth 1 Tablet every 6 hours as needed for Nausea. 60 Tablet 3 12/09/2021 Active Thinker ThingToEquivalent DATA Verio Flex System w/Device Kit Use as [...] chew 90 Capsule 1 04/01/2024 Active Pen Cotuit 32G X 4 MM Use as directed. 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 Date of Transplant: 09/01/2021 Conditioning Regimen: Fludarabine / Busulfan 2 with post-transplant Cytoxan ABO/Rh: A Positive CMV status: CMV Positive--- GRID: [id number] / [id number]: [id number] Matched Unrelated 10/24--- DPB1 Match ABO/Rh: A [...] Thrombocytopenia 12/06/2022 Last Assessment & Plan: Platelets 38449 on 03/20 Questionable hematuria Urinary incontinence 09/12/2022 [...] failure. Does not have any evidence of reexu-azbcxx-kwnr disease Last Assessment & Plan: Continues to [...] -continue venlafaxine Coronary artery disease invo lving iliamna coronary artery of iliamna heart without angina pectoris 06/12/2017 Overview: S/P EDIL to LAD on 06/12/17 Last Assessment & Plan: No angina - Continue atorvastatin, isosorbide, metoprolol - no ASA due to thrombocytopenia Dyslipidemia, goal LDL below 70 11/25/2011 Last Assessment & Plan: Patient having no issues. She continues on Lipitor 40 mg daily Last lab I will was that I can find were from [phone] Assessment/plan: Dyslipidemia with patient currently taking Lipitor [...] as of this encounter (statuses as of 09/04/2024) Resolved Problems Problem Noted Date Diagnosed Date [...] as of this encounter (statuses as of 09/04/2024) Immunizations Name Administration Dates Next Due COVID-19 mRNA, LNP-s, No Pre serve, 2-Dose Series (Blast Ramp) 02/05/2021,01/08/2021 COVID-19, LNP-s, No Preserve , Ye-sucrose, Ages 12+ (Pfizer) 12/06/2021 Pneumococcal Conjugate Vacc, 13 Valent (Prevnar) 06/10/2022,10/09/2015 Pneumococcal Polysaccharide PPV23 (Pneumovax) 01/06/2017,03/30/2011 Seasonal Influenza Vac., MDV , IM, 0.5 mL (Fluzone) 09/03/2014,08/13/2013 Seasonal Influenza Virus Vac cine, Unspecified Formulation 07/25/2019,07/23/2018,07/27/2017,01/06,10/09/2015,09/03/2014,08/27/2013 ,08/13/2013,08/27/2012,11/25/2011,1011/2009,10/13/2009 Seasonal Influenza, PF, 6 M & above, [...] No 08/13/2024 Does the household have a [facility] source of income? (Household - for [...] encounter Miscellaneous Notes * Telephone Encounter - Shaik Bill Howell MD - 09/04/2024 11:03 PM EDT Called to discuss urgent lab results. Patiwnt with MDS-MLD, s/p allogeneic stem cell transplantation. She gets labs drawn every Monday with transfusion support on . 09/04/24 labs showed : hb 6.9g/dL, plt: 3K. She does have severe thrombocytopenia , and is currently receiving transfusion support for palliation. Will notify Dr Aguero's team for arranging for PRBC and platelet transfusion on 09/05/24. Per Dr Aguero's note, irradiated product not required. Patient;'s reports of no new symptoms or overt bleeding issues; and was appreciative of thecall. Shaik Machelle Christensen MD [facility] [address] [address] documented in this encounter Plan of Treatment Upcoming Encounters Date Type Department Care Team (Late st Contact Info) Description 09/11/2024 7:00 AM EDT Laboratory [facility] [address] [place] [address] [facility] [address] [place] [address] 09/16/2024 2:30 PM EST Office Visit Pharmacy, [address] [place] [address] [place] [address] 09/18/2024 7:00 AM EST Laboratory [facility] [address] [facility] [place], [place] [address] [facility] [address] [facility], [place] [address] 09/23/2024 9:00 AM EST [facility] Visit [facility], [facility] [address] [facility] [place] [address] Tremaine Morgan PA-C [address] [place] [address] 09/25/2024 7:00 AM EST Laboratory [facility] [address] [facility] [address] [facility] [address] [facility] [place] [address] 09/30/2024 10:45 AM EST Office Visit Ophthalmology, [facility] [address] [facility] [place] [address] Fernando Damon, [address] [facility] [place] [address] 10/02/2024 7:00 AM EST Laboratory Lab [facility]bot[facility] [address] [facility], [place] [address] [facility] [address] [facility] [place] [address] 10/08/2024 10:00 AM EST Home Visit [facility], [facility] [address] [facility] [place] [address] Marisa Pacheco, TANYA [address] [facility] [place] [address] 10/09/2024 7:00 AM EST Laboratory [facility] [address] [facility] [address] [facility] [address] [facility] [place] [address] 10/16/2024 7:00 AM EST Laboratory [facility] [address] [place] [address] [facility] [address] [place] [address] 10/16/2024 1:45 PM EST Office Visit Hematology/Oncology [facility] [place] [address] [facility] [place] [id number] Jitendra Aguero MD [address] [facility] [place] [address] 2024 7:00 AM EST Laboratory [facility] [address] [place] [address] [facility] [address] [place] [address] 10/30/2024 7:00 AM EST Laboratory [facility] [address] [place] [address] [facility] [address] [place] [address] 11/05/2024 7:00 AM EST Laboratory [facility] [address] [place] [address] [facility] [address] [place] [address] 11/12/2024 7:00 AM EST Laboratory Lab [facility] [address] [place] [address] [facility], [facility] [address] [place] [address] 11/20/2024 7:00 AM EST Laboratory [facility] [address] [place] [address] [facility] [address] [place] [address] 11/27/2024 7:00 AM EST Laboratory Lab [facility] [address] [facility] [place] [address] [facility], [facility] [address] [facility] [place] [address] 12/04/2024 7:00 AM EST Laboratory [facility] [address] [place] [address] [facility] [address] [facility] [place] [address] 12/11/2024 7:00 AM EST Laboratory [facility] [address] [place] [address] [facility] [address] [facility] [place] [address] 12/18/2024 7:00 AM EST Laboratory [facility] [address] [place] [address] [facility] [address] [facility] [place] [address] 12/24/2024 2:30 PM EST Nurse Only Ancillary [address] [place] [address] [place], Nurse [address] [place] [address] 12/25/2024 7:00 AM EST Laboratory [facility] [address] [place] [address] [facility] [address] [facility] [place] [address] 01/01/2025 7:00 AM EST Laboratory [facility] [address] [place] [address] [facility] [address] [place] [address] 01/08/2025 7:00 AM EST Laboratory Lab [facility]bot[facility] [address] [place], [place] [address] [facility], [facility] [address] [place], [place] [address] 01/13/2025 11:40 AM EST Office Visit Family Medicine [address] [place] [phone] Dhruv Moss MD [address] [place] [address] [place] [address] 01/15/2025 7:00 AM EST Laboratory [facility] [address] [place], [place] [address] [facility] [address] [place], [place] [address] 01/22/2025 7:00 AM EDT Laboratory [facility] [address] [place], [place] [address] [facility] [address] [place] [address] 01/29/2025 7:00 AM EDT Laboratory [facility] [address] [place] [address] [facility] [address] [place] [address] 02/05/2025 7:00 AM EDT Laboratory Lab [facility] [address] [place] [address] [facility] [address] [place] [address] 02/12/2025 7:00 AM EDT Laboratory Lab [facility] [address] [place] [address] [facility], [facility] [address] [place], [place] [address] 02/19/2025 7:00 AM EDT Laboratory Lab [facility] [address] [place] [address] [facility] [address] [facility] [place] [address] 02/26/2025 7:00 AM EDT Laboratory Lab [facility] [address] [facility] [place] [address] [facility] [address] [facility] [place] [address] 03/05/2025 7:00 AM EDT Laboratory Lab [facility] [address] [facility] [place] [address] [facility] [address] [facility] [place] [address] 03/12/2025 7:00 AM EDT Laboratory Lab [facility] [address] [facility] [place] [address] [facility] [address] [place] [address] 03/19/2025 7:00 AM EDT Laboratory Lab [facility] Phlebotomy [facility] [address] [place] [address] M[facility], [facility] [address] [facility] [place] [address] 03/26/2025 7:00 AM EDT Laboratory Lab [facility] [address] [facility] [place] [address] [facility] [address] [employer] [place] [address] 04/02/2025 7:00 AM EDT Laboratory Lab [facility] Phlebotomy [facility] [address] [facility] [place] [address] M[facility], [facility] Draw [address] [facility] [place] [address] 04/09/2025 7:00 AM EDT Laboratory Lab [facility] [address] [facility] [place] [address] [facility], [facility] [address] [place] [employer] [place] [address] 04/16/2025 7:00 AM EDT Laboratory Lab [facility] [address] [place] [address] [facility], [facility] [address] [facility] [place] [address] 04/23/2025 7:00 AM EDT Laboratory Lab [facility] [address] [facility] [place] [address] M[facility] [address] [place] [address] 04/30/2025 7:00 AM EDT Laboratory Lab [facility] [address] [place] [address] [facility] [address] [facility] [place] [address] 05/07/2025 7:00 AM EDT Laboratory Lab [facility] [address] [place] [address] [facility], [facility] [address] [facility] [place] [address] 05/14/2025 7:00 AM EDT Laboratory Lab [facility] [address] [place] [address] [facility], [facility] [address] [facility] [place] [address] 05/21/2025 7:00 AM EDT Laboratory Lab [facility] [address] [place] [address] [facility] [address] [facility] [place] [address] 07/21/2025 1:30 PM EDT Imaging Radiology [address] [place] [address] 08/04/2025 1:20 PM EDT Office Visit Family Medicine [address] [place] [phone] Dhruv Moss MD [address] [place] [address] [place] [address] Health Maintenance Due Date Last Done Comments *BISPHONATE OR OTHER ACCEPTABLE MEDICATION NEEDED FOR OSTEOPOROSIS (REFER TO SMARTSET #1146) 11/06/2023 Colonoscopy 05/06/2024 05/06/2019, 05/06/2019 CKD PHOS USE SMARTSET 29076 06/07/202405/14, 05/31/2023, 05/08/2023, Additional history exists COVID-19 [...] Additional history exists CKD HGB USE SMARTSET 60912 09/04/202509/04, 09/04/2024, 08/28/2024, Additional history exists DTap/Tdap Vaccines (3 - Td or Tdap) 11/10/2026 11/10/2016, 03/30/2011 VITAMIN D LEVEL ONCE IN A LIFETIME-USE SMARTSET# 46464 Completed 05/11/2015 RETIRED - COLONOSCOPY-EVERY 5 YRS [...] this encounter Medical Devices Implanted Type Area Husbandry Technician Device Identifier Shelf Expiration Date Model / Serial / Lot Port Pwr Mri Isp Profile - [id number] Implanted:Qty: 1 on 07/24/2020 by Akash Castillo MD at OR [facility] Right: Chest CR BARD : PERIPHERAL VASCULAR 04/12/2021 [id number] / / [id number] documented as of this encounter Advance Directives [...] Agent [facility] p Communication Juanita [place] Adult Child Health Care Agent Care Teams Lap Checker Relationship Specialty Start Date End Date Dhruv Moss MD [address] [place], [place] [address] [address] PCP - General Family Medicine 08/27/21 documented as of this encounter
--- OUTSIDE RECORDS SUMMARY | 2024-10-10 00:28 | External Medical Summary ---
Author Name Unknown Address Unknown Organization K01[facility] [address] [facility] [place] [address] Laboratory Report Ordering Provider Test Date Status ANN MUNGUIA 09/04/2024 08:37:00 Final Observation Date Value Abnormality Reference (Units ) Status SYNC LEUKOCYTES IN BLOOD BY AUTOMATED COUNT 09/04/2024 08:37:00 17.17 Above high normal 4.00-10.80 (K/uL) Final Neutrophils/100 leukocytes in Blood by Manual count 09/04/2024 08:37:00 32.0 Below low normal 40.0-75.0 (%) Final Lymphocytes/100 leukocytes in Blood by Manual count 09/04/2024 08:37:00 56.0 Above high normal 18.0-42.0 (%) Final Monocytes/100 leukocytes in Blood by Manual count 09/04/2024 08:37:00 2.0 1.0-11.0 (%) Final Metamyelocytes/100 leukocytes in Blood by Manual count 09/04/2024 08:37:00 3.0 Above high normal <=0.0 (%) Final Myelocytes/100 leukocytes in Blood by Manual count 09/04/2024 08:37:00 1.0 Above high normal <=0.0 (%) Final Blasts/100 leukocytes in Blood by Manual count 09/04/2024 08:37:00 6.0 Above high normal <=0.0 (%) Final Neutrophils [#/volume] in Blood by Manual count 09/04/2024 08:37:00 5.49 1.80-7.70 (K/uL) Final Lymphocytes [#/volume] in Blood by Manual count 09/04/2024 08:37:00 9.62 Above high normal 1.00-4.80 (K/uL) Final Monocytes [#/volume] in Blood by Manual count 09/04/2024 08:37:00 0.34 0.00-1.10 (K/uL) Final Metamyelocytes [#/volume] in Blood by Manual count 09/04/2024 08:37:00 0.52 Above high normal <=0.00 (K/uL) Final Myelocytes [#/volume] in Blood by Manual count 09/04/2024 08:37:00 0.17 Above high normal <=0.00 (K/uL) Final Blasts [#/volume] in Blood by Manual count 09/04/2024 08:37:00 1.03 Above high normal <=0.00 (K/uL) Final Schistocytes 09/04/2024 08:37:00 Few Abnormal None Seen Final Variant lymphocytes [Presence] in Blood by Light microscopy 09/04/2024 08:37:00 Present Abnormal None Seen Final Neutrophils.vacuolated [Presence] in Blood by Light microscopy 09/04/2024 08:37:00 Present Abnormal None Seen Final Performing Location [facility] [place] [address] [facility] [address]
--- OUTSIDE RECORDS SUMMARY | 2024-10-10 00:28 | External Medical Summary ---
Author Name Unknown Address Unknown Organization K01[facility] [place] [facility] [address] [facility] [address] [place] [address] Laboratory Report Ordering Provider Test Date Status ANN MUNGUIA 09/04/2024 08:37:00 Final Observation Date Value Abnormality Reference (Units ) Status WBC, Total 09/04/2024 08:37:00 17.17 Above high normal 4.00-10.80 (K/uL) Final RBC 09/04/2024 08:37:00 1.97 3.85-5.15 (M/uL) Final Hemoglobin 09/04/2024 08:37:00 6.2 Below low normal 12.0-15.3 (g/dL) Final HCT 09/04/2024 08:37:00 19.3 Below low normal 36.0-45.2 (%) Final MCV 09/04/2024 08:37:00 98.0 81.5-97.5 (fL) Final MCH 09/04/2024 08:37:00 31.5 27.0-34.0 (pg) Final MCHC 09/04/2024 08:37:00 32.1 32.0-36.0 (g/dL) Final RDW 09/04/2024 08:37:00 18.6 11.5-15.5 (%) Final Platelets 09/04/2024 08:37:00 3 Below lower panic limits 140-400 (K/uL) Final MPV 09/04/2024 08:37:00 Final No result - abnormal platele t distribution. Nucleated erythrocytes/100 l eukocytes [Ratio] in Blood by Automated count 09/04/2024 08:37:00 0 <=0 (/100 WBCs) Final Performing Location [facility] [place] [address] [place] [address]
--- OUTSIDE RECORDS SUMMARY | 2024-10-10 00:28 | External Medical Summary | Summary of Care ---
Author Name Unknown Organization [facility] Address [address] [facility] [place] [address] Phone [phone] Care Team Providers Care Photoengraving Machine Operator/Tender Name Role Phone Dhruv Moss MD Primary Care Provide r Reason for Visit * Reason Onset Date Comments Precert Pending 08/28/2024 17 MELINA MARCELO Encounter Details Date Type Department Care Team (Late st Contact Info) Description 08/28/2024 Telephone Ophthalmology, [facility] [address] [place] [address] Fernando Damon, [address] [place] [address] Precert Pending (17 MELINA MARCELO) Allergies No [...] Nausea. 60 Tablet 3 12/09/2021 Active OneTouch [employer] Flex System w/Device Kit Use as directed [...] chew 90 Capsule 1 04/01/2024 Active Pen [place] 32G X 4 MM Use as directed. Use to inject insulin up to 4 times daily. 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 Does not have any evidence of kdpiw-uvzvki-agcq disease Last Assessment & Plan: Continues to [...] was that I can find were from [id number] Assessment/plan: Dyslipidemia with patient currently taking Lipitor [...] angioplasty with coronary stent 06/12/2017 04/23/2019 Overview: EDLI to LAD on 06/12/17 Venous stasis dermatitis [...] No 08/13/2024 Does the household have a [facility]? (Household - [...] ofboth eyes and macular edema, unspecified whether chyron operator insulin use ([facility]) E11.3313 Medication: Eylea Eye Treated: OU Date of office visit: 08/28/24 documented in this encounter Plan of Treatment Upcoming Encounters Date Type Department Care Team (Late st Contact Info) Description 09/04/2024 7:00 AM EDT Laboratory [facility] [address] [place] [address] [facility] [address] [place] [address] 09/11/2024 7:00 AM EDT [facility] [address] [place] [address] [facility] [address] [place] [address] 09/16/2024 2:30 PM EST Office Visit Pharmacy, [address] [place] [address] [place] [address] 09/18/2024 7:00 AM EST [facility] [address] [place] [address] [address] [facility] [address] [place], [place] [address] 09/23/2024 9:00 AM EST [facility] Visit [facility], [facility] [address] [facility] [place] [address] Tremaine Mogran PA-C [address] [facility] [place] [address] 09/25/2024 7:00 AM EST Laboratory [facility] [address] [place], [place] [address] [facility] [address] [place], [place] [address] 09/30/2024 10:45 AM EST Office Visit Ophthalmology, [facility] [address] [facility] [place] [address] Fernando Damon DO [facility] [place] [address] 10/02/2024 7:00 AM EST Laboratory [facility] [address] [place], [place] [address] [facility] [place], [place] [address] 10/08/2024 10:00 AM EST Home Visit [facility], [facility] [address] [facility] [place] [address] Marisa Pacheco, TANYA [address] [facility] [place] [address] 10/09/2024 7:00 AM EST Laboratory [facility] [address] [place], [place] [address] [facility] [address] [place] [address] 10/16/2024 7:00 AM EST Laboratory [facility] [address] [place], [place] [address] [facility] [address] [address] 10/16/2024 1:45 PM EST Office Visit Hematology/Oncology [facility] [address] [facility] [place] [id number] Jitendra Aguero MD [address] [facility] [place] [address] 2024 7:00 AM EST Laboratory [facility] [address] [address] [facility] [address] [address] 10/30/2024 7:00 AM EST Laboratory [facility] [address] [place], [place] [address] [facility] [address] [address] 11/05/2024 7:00 AM EST Laboratory [facility] [address] [address] [facility] [address] [address] 11/12/2024 7:00 AM EST Laboratory [facility] [address] [address] [facility] [address] [address] 11/20/2024 7:00 AM EST Laboratory [facility] [address] [address] [facility] [address] [place] [address] 11/27/2024 7:00 AM EST [facility] [address] [place] [address] [facility] [address] [place] [address] 12/04/2024 7:00 AM EST Laboratory [facility] [address] [facility] [place] [address] [facility] [address] [facility] [place] [address] 12/11/2024 7:00 AM EST Laboratory [facility] [address] [place] [address] [facility] [address] [facility] [place] [address] 12/18/2024 7:00 AM EST Laboratory [facility] [address] [facility] [place] [address] [facility] [address] [facility] [place] [address] 12/24/2024 2:30 PM EST Nurse Only Ancillary [address] [place] [address] [place], Nurse [address] [place] [address] 12/25/2024 7:00 AM EST Laboratory [facility] [address] [place] [address] [facility] [address] [place] [address] 01/01/2025 7:00 AM EST Laboratory [facility] [address] [facility] [place] [address] [facility] [address] [facility] [place] [address] 01/08/2025 7:00 AM EST Laboratory [facility] [address] [address] [facility] [address] [place] [address] 01/13/2025 11:40 AM EST Office Visit Family Medicine [address] [place] [phone] Dhruv Moss MD [address] [place] [address] [place] [address] 01/15/2025 7:00 AM EST Laboratory [facility] [address] [place], [place] [address] [facility] [address] [place] [address] 01/22/2025 7:00 AM EDT Laboratory [facility] [address] [place], [place] [address] [facility] [address] [place] [address] 01/29/2025 7:00 AM EDT Laboratory [facility] [address] [place] [address] [facility] [address] [place] [address] 02/05/2025 7:00 AM EDT Laboratory [facility] [address] [employer] [place] [address] [facility] [address] [place] [address] 02/12/2025 7:00 AM EDT Laboratory [facility] [address] [place] [address] [facility] [address] [place] [address] 02/19/2025 7:00 AM EDT Laboratory [facility] [address] [place] [address] [facility] [address] [place] [address] 02/26/2025 7:00 AM EDT Laboratory [facility] [address] [facility] [place] [address] [facility] [address] [facility] [place] [address] 03/05/2025 7:00 AM EDT Laboratory [facility] [address] [facility] [place] [address] [facility] [address] [facility] [place] [address] 03/12/2025 7:00 AM EDT Laboratory [facility] [address] [facility] [place] [address] [facility] [address] [facility] [place] [address] 03/19/2025 7:00 AM EDT Laboratory [facility] [address] [facility] [place] [address] [facility] [address] [facility] [place] [address] 03/26/2025 7:00 AM EDT Laboratory [facility] [address] [facility] [place] [address] [facility] [address] [facility] [place] [address] 04/02/2025 7:00 AM EDT Laboratory [facility] [address] [facility] [place] [address] [facility] [address] [facility] [place] [address] 04/09/2025 7:00 AM EDT Laboratory [facility] [address] [facility] [place] [address] [facility] [address] [facility] [place] [address] 04/16/2025 7:00 AM EDT Laboratory [facility] [address] [facility] [place] [address] [facility] [address] [place] [address] 04/23/2025 7:00 AM EDT Laboratory [facility] [address] [place], [place] [address] [facility] [address] [place] [address] 04/30/2025 7:00 AM EDT Laboratory [facility] [address] [place] [address] [facility] [address] [place] [address] 05/07/2025 7:00 AM EDT Laboratory [facility] [address] [place] [address] [facility] [address] [place] [address] 05/14/2025 7:00 AM EDT Laboratory [facility] [address] [place] [address] [facility] [address] [place] [address] 05/21/2025 7:00 AM EDT Laboratory [facility] [address] [place] [address] [facility] [address] [place] [address] 07/21/2025 1:30 PM EDT Imaging Radiology [address] [place] [address] 08/04/2025 1:20 PM EDT Office Visit Family Medicine [address] [place] [phone] Dhruv Moss MD [address] [place] [address] [place] [address] Health Maintenance Due Date Last Done Comments *BISPHONATE OR OTHER ACCEPTABLE MEDICATION NEEDED FOR OSTEOPOROSIS (REFER TO SMARTSET #1146) 11/06/2023 Colonoscopy 05/06/2024 05/06/2019, 05/06/2019 CKD PHOS USE SMARTSET 73636 06/07/20242 04/2023, 05/31/2023, 05/08/2023, Additional history exists [...] Additional history exists CKD HGB USE SMARTSET 50884 08/28/202508/28, 08/28/2024, 08/21/2024, Additional history exists Diabetic Eye Exam 08/28/2025 08/28/2024, , 08/28/2024, Additional history exists DTap/Tdap Vaccines (3 - Td or Tdap) 11/10/2026 11/10/2016, 03/30/2011 VITAMIN D LEVEL ONCE IN A LIFETIME-USE SMARTSET# 12236 Completed 05/11/2015 RETIRED - COLONOSCOPY-EVERY 5 YRS [...] this encounter Medical Devices Implanted Type Area Cadmium Liquor Maker Device Identifier Shelf Expiration Date Model / Serial / Lot Port Pwr Mri Isp Profile - [id number] Implanted:Qty: 1 on 07/24/2020 by Akash Castillo MD at OR [facility] Right: Chest CR BARD : PERIPHERAL VASCULAR 04/12/2021 [id number] / / [id number] documented as of this encounter Advance Directives [...] Agents on File Name Relationship Healthcare Agent [facility] p Communication Juanita Silva Adult Child Health Care Agent Care Teams Photoengraving Machine Operator/Tender Relationship Specialty Start Date End Date Dhruv Moss MD [address] [place] [address] [place] [address] PCP - General Family Medicine 08/27/21 documented as of this encounter
--- OUTSIDE RECORDS SUMMARY | 2024-10-10 00:28 | External Medical Summary ---
Author Name Unknown Address Unknown Organization K01:[facility] – [place] - [facility] [address] [facility] [address] [place] [address] Laboratory Report Ordering Provider Test Date Status ANN MUNGUIA 09/11/2024 08:42:00 Final Observation Date Value Abnormality Reference (Units ) Status WBC, Total 09/11/2024 08:42:00 19.60 Above high normal 4.00-10.80 (K/uL) Final RBC 09/11/2024 08:42:00 2.52 3.85-5.15 (M/uL) Final Hemoglobin 09/11/2024 08:42:00 7.6 Below low normal 12.0-15.3 (g/dL) Final HCT 09/11/2024 08:42:00 24.6 Below low normal 36.0-45.2 (%) Final MCV 09/11/2024 08:42:00 97.6 81.5-97.5 (fL) Final MCH 09/11/2024 08:42:00 30.2 27.0-34.0 (pg) Final MCHC 09/11/2024 08:42:00 30.9 32.0-36.0 (g/dL) Final RDW 09/11/2024 08:42:00 17.4 11.5-15.5 (%) Final Platelets 09/11/2024 08:42:00 3 Below lower panic limits 140-400 (K/uL) Final MPV 09/11/2024 08:42:00 Final No result - abnormal platele t distribution. Nucleated erythrocytes/100 l eukocytes [Ratio] in Blood by Automated count 09/11/2024 08:42:00 0 <=0 (/100 WBCs) Final Performing Location [facility] – [place], [place] - [address] [place] [address]
--- OUTSIDE RECORDS SUMMARY | 2024-10-10 00:28 | External Medical Summary | Summary of Care ---
Author Name Unknown Organization [facility] Address [address] [facility] [facility] [address] Phone [phone] Care Team Providers Care Visual C Developer Name Role Phone Dhruv Moss MD Primary Care Provide r Reason for Visit * Reason Onset Date Comments Test Results Lab 09/12/2024 Encounter Details Date Type Department Care Team (Late st Contact Info) Description 09/12/2024 Telephone Hematology/Oncology [facility] [address] [place] [address] Jitendra Aguero MD [address] [place] [address] Test Results Lab Allergies No known active allergiesdocumented as of this encounter (statuses as of 09/12/2024) Medications Medication Sig Dispensed Refills Start Date End Date Status Diclofenac Sodium 1 % External GelIndications:knee pain Apply topically to affected area . Apply to bilateral knees Active Prochlorperazine Maleate 10 MG Oral Tablet (Compazine)Indicatio ns:H/O allogeneic bone marrow transplant (HCC) Take by mouth 1 Tablet every 6 hours as needed for Nausea. 60 Tablet 3 12/09/2021 Active MarketBriefToBespoke Postio Flex System w/Device Kit Use as directed [...] chew 90 Capsule 1 04/01/2024 Active Pen [place] 32G X 4 MM Use as directed. [...] 24 Hour (Imdur)Indications:C oronary artery disease involving guidiville coronary artery of guid[place]le heart without angina pectoris,HTN, goal below 140/90 [...] goal of less than 8.0% ([facility]) Use to test blood sugar three times a day DXe11.9 300 Each 3 07/22/2024 Active Insulin Glargine Solostar 100 UNIT/ML Subcutaneous Solution Pen-injector (Lantus SoloStar) Inject 16 Units under the skin in the morning. 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 Date of Transplant: 09/01/2021 Conditioning Regimen: Fludarabine / Busulfan 2 with post-transplant Cytoxan ABO/Rh: A Positive CMV status: CMV Positive--- GRID: [id number] / DID: [id number] Matched Unrelated 10/24--- DPB1 Match ABO/Rh: A [...] Thrombocytopenia 12/06/2022 Last Assessment & Plan: Platelets 58297 on 03/20 Questionable hematuria Urinary incontinence 09/12/2022 [...] failure. Does not have any evidence of iqhga-cilzoe-dncq disease Last Assessment & Plan: Continues to [...] -continue venlafaxine Coronary artery disease invo lving guidiville coronary artery of guidiville heart without angina pectoris 06/12/2017 Overview: S/P EDIL to LAD on 06/12/17 Last Assessment & Plan: No angina - Continue atorvastatin, isosorbide, metoprolol - no ASA due to thrombocytopenia Dyslipidemia, goal LDL below 70 11/25/2011 Last Assessment & Plan: Patient having no issues. She continues on Lipitor 40 mg daily Last lab I will was that I can find were from [phone] Assessment/plan: Dyslipidemia with patient currently taking Lipitor [...] as of this encounter (statuses as of 09/12/2024) Resolved Problems Problem Noted Date Diagnosed Date [...] as of this encounter (statuses as of 09/12/2024) Immunizations Name Administration Dates Next Due COVID-19 [...] No 08/13/2024 Does the household have a [facility] source [facility] income? (Household - for [...] Telephone Encounter - Makenzie Barth LPN - 09/12/2024 7:28 AM EDT Reviewed lab results with patient's daughterJuanita: Hgb: 7.6 Plt: 3 She verbalized understanding. She is requesting patient to also have 1 unit of blood per parametersset with MD at last appointment on 07/05/2024 of hgb less than 8. Patient to receive 1 unit of platelets and 1 unit of prbc. Called [facility] blood bank. Spoke with Kaleb. Spoke with Margoth in [facility]. Called [facility] central scheduling. Patient scheduled for 09/12/2024 at 10:00 am. Patient's daughter verbalized understanding of appt time and denies any other needs at this time. Faxed order to [facility]/ blood bank. * Telephone Encounter - Makenzie Barth LPN - 09/12/2024 7:26 AM EDT ----- Message from Jitendra Aguero MD sent at 09/12/2024 6:11 AM EDT ----- Blood workup done on 09/11/2024: - WBC 19,600, H&H of 7.6/24.6, platelet count of 3000. I will transfuse one bag of platelet at [facility]. documented in this encounter Plan of Treatment Upcoming Encounters Date Type Department Care Team (Late st Contact Info) Description 09/16/2024 2:30 PM EST Office Visit Pharmacy, [address] [place] [address] [place] [address] 09/18/2024 7:00 AM EST Laboratory [facility] [address] [facility], [place] [address] [facility] [address] [facility], [place] [address] 09/23/2024 9:00 AM EST [facility] Visit [facility], [facility] [address] [facility] [place] [address] Tremaine Morgan PA-C [address] [facility] [place] [address] 09/25/2024 7:00 AM EST Laboratory [facility] [address] [facility] [address] [facility] [address] [facility], [place] [address] 09/30/2024 10:45 AM EST Office Visit Ophthalmology, [facility] [address] [facility] [place] [address] Fernando Damon, [address] [facility] [place] [address] 10/02/2024 7:00 AM EST Laboratory [facility] [address] [facility], [place] [address] [facility] [address] [facility], [place] [address] 10/08/2024 10:00 AM EST Home Visit [facility] [place], [facility] [address] [place] [address] Marisa Pacheco, TANYA [address] [place] [address] 10/09/2024 7:00 AM EST Laboratory [facility] [address] [facility], [place] [address] [facility] [address] [place] [address] 10/16/2024 7:00 AM EST Laboratory [facility] [address] [place], [place] [address] [facility] [address] [place] [address] 10/16/2024 1:45 PM EST Office Visit Hematology/Oncology [facility] [place] [address] [place] [address] Jitendra Aguero MD [address] [place] [address] 2024 7:00 AM EST Laboratory [facility] [address] [place] [address] [facility] [address] [place], [place] [address] 10/30/2024 7:00 AM EST Laboratory [facility] [address] [place] [address] [facility] [address] [place] [address] 11/05/2024 7:00 AM EST Laboratory [facility] [address] [place] [address] [facility] [address] [place] [address] 11/12/2024 7:00 AM EST Laboratory [facility] [address] [place] [address] [facility] [address] [place] [address] 11/20/2024 7:00 AM EST Laboratory [facility] [address] [place] [address] [facility] [address] [place] [address] 11/27/2024 7:00 AM EST Laboratory [facility] [address] [place] [address] [facility] [address] [place] [address] 12/04/2024 7:00 AM EST Laboratory [facility] [address] [place] [address] [facility] [address] [place] [address] 12/11/2024 7:00 AM EST Laboratory [facility] [address] [place] [address] [facility] [address] [place] [address] 12/18/2024 7:00 AM EST Laboratory [facility] [address] [place], [place] [address] [facility] [address] [place] [address] 12/24/2024 2:30 PM EST Nurse Only Ancillary [address] [place] [address] [place], Nurse [address] [place] [address] 12/25/2024 7:00 AM EST Laboratory [facility] [address] [place] [address] [facility] [address] [place] [address] 01/01/2025 7:00 AM EST Laboratory [facility] [address] [place] [address] [facility] [address] [place] [address] 01/08/2025 7:00 AM EST Laboratory [facility] [address] [employer] [place] [address] [facility] [address] [place] [address] 01/13/2025 11:40 AM EST Office Visit Family [address] [place] [address] Dhruv Moss MD [address] [place] [address] [place] [address] 01/15/2025 7:00 AM EST Laboratory [facility] [address] [employer], [place] [address] [facility] [address] [place], [place] [address] 01/22/2025 7:00 AM EDT Laboratory [facility] [address] [place], [place] [address] [facility] [address] [place] [address] 01/29/2025 7:00 AM EDT Laboratory [facility] [address] [place], [place] [address] [facility] [address] [place] [address] 02/05/2025 7:00 AM EDT Laboratory Lab [facility] [address] [place] [employer] [place] [address] [facility] [address] [place] [address] 02/12/2025 7:00 AM EDT Laboratory [facility] [address] [place] [address] [facility] [address] [place] [address] 02/19/2025 7:00 AM EDT Laboratory [facility] [address] [place] [address] [facility] [address] [facility] [place] [address] 02/26/2025 7:00 AM EDT Laboratory Lab [facility] [address] [facility] [place] [address] [facility] [address] [facility] [place] [address] 03/05/2025 7:00 AM EDT Laboratory Lab [facility] [address] [place] [address] [facility] [address] [facility] [place] [address] 03/12/2025 7:00 AM EDT Laboratory [facility] [address] [place] [address] [facility] [address] [facility] [place] [address] 03/19/2025 7:00 AM EDT Laboratory [facility] [address] [place] [address] [facility] [address] [facility] [place] [address] 03/26/2025 7:00 AM EDT Laboratory [facility] [address] [facility] [place] [address] [facility] [address] [place] [address] 04/02/2025 7:00 AM EDT Laboratory Lab [facility] [address] [facility] [place] [address] [facility] [address] [facility] [place] [address] 04/09/2025 7:00 AM EDT Laboratory [facility] [address] [place] [address] [facility] [address] [place] [address] 04/16/2025 7:00 AM EDT Laboratory Lab [facility] [address] [place] [address] [facility] [address] [facility] [place] [address] 04/23/2025 7:00 AM EDT Laboratory [facility] [address] [place] [address] [facility] [address] [place] [address] 04/30/2025 7:00 AM EDT Laboratory [facility] [address] [place] [address] [facility] [address] [place] [address] 05/07/2025 7:00 AM EDT Laboratory [facility] [address] [place] [address] [facility] [address] [facility] [place] [address] 05/14/2025 7:00 AM EDT Laboratory Lab [facility] [address] [place] [address] [facility] [address] [place] [address] 05/21/2025 7:00 AM EDT Laboratory [facility] [address] [place] [address] [facility] [address] [facility] [place] [address] 07/21/2025 1:30 PM EDT Imaging Radiology [address] [place] [address] 08/04/2025 1:20 PM EDT Office Visit Family Medicine [address] [place] [phone] Dhruv Moss MD [address] [place] [address] [place] [address] Health Maintenance Due Date Last Done Comments *BISPHONATE OR OTHER ACCEPTABLE MEDICATION NEEDED FOR OSTEOPOROSIS (REFER TO SMARTSET #1146) 11/06/2023 Colonoscopy 05/06/2024 05/06/2019, 05/06/2019 CKD PHOS USE SMARTSET 25432 06/07/202405/14, 05/31/2023, 05/08/2023, Additional history exists COVID-19 [...] Additional history exists CKD HGB USE SMARTSET 54076 09/11/202509/11, 09/11/2024, 09/04/2024, Additional history exists DTap/Tdap Vaccines (3 - Td or Tdap) 11/10/2026 11/10/2016, 03/30/2011 VITAMIN D LEVEL ONCE IN A LIFETIME-USE SMARTSET# [id number] Completed 05/11/2015 RETIRED - COLONOSCOPY-EVERY 5 YRS [...] this encounter Medical Devices Implanted Type Area Svp Chief Marketing Officer Device Identifier Shelf Expiration Date Model / Serial / Lot Port Pwr Mri Isp Profile - [id number] Implanted:Qty: 1 on 07/24/2020 by Akash Castillo MD at OR [facility] Right: Chest CR BARD : PERIPHERAL VASCULAR 04/12/2021 [id number] / / [id number] documented as of this encounter Advance Directives [...] on File Name Relationship Healthcare Agent [facility] p Communication [facility] Adult Child Health Care Agent Care Teams Visual C Developer Relationship Specialty Start Date End Date Dhruv Moss MD [address] [place] [address] [place] [address] PCP - General Family Medicine 08/27/21 documented as of this encounter
--- OUTSIDE RECORDS SUMMARY | 2024-10-10 00:29 | External Medical Summary | Summary of Care ---
Author Name Unknown Organization [facility] Address [address] [facility] [place] [address] Phone [phone] Care Team Providers Care Reel Man Name Role Phone Dhruv Moss MD Primary Care Provide r Reason for Visit * Reason Onset Date Comments Pre Cert/Prior Auth 08/28/2024 Eylea Encounter Details Date Type Department Care Team (Late st Contact Info) Description 08/28/2024 Telephone Ophthalmology, [facility] [address] [place] [address] Fernando Damon, [address] [facility] [place] [address] Pre Cert/Prior Auth (Eylea) Allergies No known active allergiesdocumented as of this encounter (statuses as of 08/29/2024) Medications Medication Sig Dispensed Refills Start Date [...] chew 90 Capsule 1 04/01/2024 Active Pen Thornton 32G X 4 MM Use as directed. Use to inject insulin up to 4 times daily. 400 Each 3 04/05/2024 Active Atorvastatin Calcium 40 MG Oral Tablet (Lipitor)Indications :Dyslipidemia, goal LDL below 70 TAKE ONE TABLET BY MOUTH IN THE MORNING 90 Tablet 2 04/22/2024 Active Content Savvy In Vitro Strip (Glucose Blood)Indications:Ty pe 2 [...] 24 Hour (Imdur)Indications:C oronary artery disease involving [place] coronary artery of [place] heart without angina pectoris,HTN, goal below 140/90 [...] Oral TabletIndications:MD Santos (myelodysplastic syndrome), high grade ([facility]) Take 1 Tablet by mouth every 8 [...] syndrome), high grade (HCC),Stem cells transplant status ([facility]),Acquired hypothyroidism 1000 mL IV DAILY PRN 12/08/2021 [...] intermission coordinator insulin use (HCC) 1.5 mg PERINEURAL PRN 07/17/2024 07/17/2025 Active documented as of this encounter (statuses as of 08/29/2024) Active Problems Patient Care Coordination No te Formatting of this note migh t be different from the original. Date of Transplant: 09/01/2021 Conditioning Regimen: Fludarabine / Busulfan 2 with post-transplant Cytoxan ABO/Rh: A Positive CMV status: CMV Positive--- GRID: [id number] / DID: [id number] Matched Unrelated 10/24--- DPB1 Match ABO/Rh: A [...] Thrombocytopenia 12/06/2022 Last Assessment & Plan: Platelets [id number] on 03/20 Questionable hematuria Urinary incontinence 09/12/2022 [...] failure. Does not have any evidence of wjbmb-vjcqwe-rgzf disease Last Assessment & Plan: Continues to [...] -continue venlafaxine Coronary artery disease invo lving [place] coronary artery of [place] heart without angina pectoris 06/12/2017 Overview: S/P EDIL to LAD on 06/12/17 Last Assessment & Plan: No angina - Continue atorvastatin, isosorbide, metoprolol - no ASA due to thrombocytopenia Dyslipidemia, goal LDL below 70 11/25/2011 Last Assessment & Plan: Patient having no issues. She continues on Lipitor 40 mg daily Last lab I will was that I can find were from [phone] Assessment/plan: Dyslipidemia with patient currently taking Lipitor [...] as of this encounter (statuses as of 08/29/2024) Resolved Problems Problem Noted Date Diagnosed Date [...] as of this encounter (statuses as of 08/29/2024) Immunizations Name Administration Dates Next Due COVID-19 mRNA, LNP-s, No Pre serve, 2-Dose Series ([employer] [employer]) 02/05/2021,01/08/2021 COVID-19, LNP-s, No Preserve , Ye-sucrose, [...] ofboth eyes and macular edema, unspecified whether assisted insulin use ([facility]) E11.3313 Medication: Eylea Eye Treated: OU Date of office visit: 08/28/24 documented in this encounter Plan of Treatment Upcoming Encounters Date Type Department Care Team (Late st Contact Info) Description 08/29/2024 11:00 AM EDT Home Visit [facility] [address] [place] [address] Tremaine Morgan PA-C [address] [place] [address] 08/30/2024 2:30 PM EDT Office Visit Pharmacy, [address] [place] [address] [place] [address] 09/04/2024 7:00 AM EDT Laboratory [facility] [address] [place] [address] [facility] [address] [place] [address] 09/11/2024 7:00 AM EDT [facility] [address] [place] [address] [facility] [address] [facility] [place] [address] 09/18/2024 7:00 AM EST Laboratory [facility] [address] [facility] [place] [address] [facility] [address] [facility] [place] [address] 09/25/2024 7:00 AM EST [facility] [address] [place] [address] [facility] [address] [place] [address] 09/30/2024 10:45 AM EST Office Visit Ophthalmology, [facility] [address] [facility] [place] [address] Fernando Dam[facility] DO [facility] [address] 10/02/2024 7:00 AM EST Laboratory [facility] [address] [place] [address] [facility] [address] [place] [address] 10/08/2024 10:00 AM EST Home Visit [facility] [address] [facility] [place] [address] Marisa Pacheco, TANYA [address] [facility] [place] [address] 10/09/2024 7:00 AM EST Laboratory [facility] [address] [place] [address] [facility] [address] [facility] [place] [address] 10/16/2024 7:00 AM EST Laboratory [facility] [address] [place] [address] [facility] [address] [place] [address] 10/16/2024 1:45 PM EST [facility] [place] [address] [facility] [place], [place] [id number] Jitendra Aguero MD [address] [facility] [place] [address] 2024 7:00 AM EST Laboratory [facility] [address] [place], [place] [address] [facility] [address] [place], [place] [address] 10/30/2024 7:00 AM EST [facility] [address] [place], [place] [address] [facility] [address] [place], [place] [address] 11/05/2024 7:00 AM EST [facility] [address] [place] [address] [facility] [address] [place], [place] [address] 11/12/2024 7:00 AM EST [facility] [address] [place], [place] [address] [facility] [address] [place] [address] 11/20/2024 7:00 AM EST [facility] [address] [place] [address] [facility] [address] [place] [address] 11/27/2024 7:00 AM EST [facility] [address] [place], [place] [address] [facility] [address] [place] [address] 12/04/2024 7:00 AM EST [facility] [address] [place] [address] [facility] [address] [place] [address] 12/11/2024 7:00 AM EST [facility] [address] [place] [address] [facility] [address] [facility] [place] [address] 12/18/2024 7:00 AM EST [facility] [address] [place] [address] [facility] [address] [place] [address] 12/24/2024 2:30 PM EST Nurse Only Ancillary [address] [place] [address] [place], Nurse [address] [place] [address] 12/25/2024 7:00 AM EST [facility] [address] [place] [address] [facility] [address] [place] [address] 01/01/2025 7:00 AM EST [facility] [address] [place] [address] [facility] [address] [place] [address] 01/08/2025 7:00 AM EST [facility] [address] [place] [address] [facility] [address] [place] [address] 01/13/2025 11:40 AM EST Office Visit Family [address] [place] [phone] Dhruv Moss MD [address] [place] [address] [place] [address] 01/15/2025 7:00 AM EST [facility] [address] [place] [address] [facility] [address] [place] [address] 01/22/2025 7:00 AM EDT Laboratory [facility] [address] [place] [address] [facility] [address] [place] [address] 01/29/2025 7:00 AM EDT Laboratory [facility] [address] [place] [address] [facility] [address] [facility] [place] [address] 02/05/2025 7:00 AM EDT Laboratory [facility] [address] [place] [address] [facility] [address] [facility] [place] [address] 02/12/2025 7:00 AM EDT Laboratory [facility] [address] [place] [address] [facility], [facility] [address] [place] [address] 02/19/2025 7:00 AM EDT Laboratory [facility] [address] [place] [address] [facility] [address] [place] [address] 02/26/2025 7:00 AM EDT Laboratory [facility] [address] [facility] [place] [address] [facility], [facility] [address] [facility] [place] [address] 03/05/2025 7:00 AM EDT Laboratory [facility] [address] [place] [address] M[facility], [facility] [address] [place] [address] 03/12/2025 7:00 AM EDT Laboratory [facility] [address] [place] [address] M[facility], [facility] [address] [place] [address] 03/19/2025 7:00 AM EDT Laboratory [facility] [address] [facility] [place] [address] M[facility], [facility] [address] [place] [address] 03/26/2025 7:00 AM EDT Laboratory [facility] [address] [facility] [place] [address] [facility], [facility] [address] [place] [address] 04/02/2025 7:00 AM EDT Laboratory [facility] [address] [place] [address] M[facility], [facility] [address] [place] [address] 04/09/2025 7:00 AM EDT Laboratory [facility] [address] [facility] [place] [address] M[facility], [facility] [address] [place] [address] 04/16/2025 7:00 AM EDT Laboratory [facility] [address] [facility] [place] [address] [facility], [facility] [address] [place] [address] 04/23/2025 7:00 AM EDT Laboratory [facility] [address] [place] [address] [facility], [facility] [address] [place] [address] 04/30/2025 7:00 AM EDT Laboratory [facility] [address] [place] [address] [facility] [address] [facility] [place] [address] 05/07/2025 7:00 AM EDT Laboratory [facility] [address] [place] [address] [facility] [address] [facility] [place] [address] 05/14/2025 7:00 AM EDT Laboratory [facility] [address] [place] [address] [facility], [facility] [address] [facility] [place] [address] 05/21/2025 7:00 AM EDT Laboratory [facility] [address] [place] [address] [facility], [facility] [address] [facility] [place] [address] 07/21/2025 1:30 PM EDT Imaging Radiology [address] [place] [address] 08/04/2025 1:20 PM EDT Office Visit Family Medicine [address] [place] [phone] Dhruv Moss MD [address] [place] [address] [place] [address] Health Maintenance Due Date Last Done Comments *BISPHONATE OR OTHER ACCEPTABLE MEDICATION NEEDED FOR OSTEOPOROSIS (REFER TO SMARTSET #1146) 11/06/2023 Colonoscopy 05/06/2024 05/06/2019, 05/06/2019 CKD PHOS USE SMARTSET 31095 06/07/2024 07/2 04/2023, 05/31/2023, 05/08/2023, Additional history [...] Additional history exists CKD HGB USE SMARTSET 60264 08/28/202508/28, 08/28/2024, 08/21/2024, Additional history exists Diabetic Eye Exam 08/28/2025 08/28/2024, , 08/28/2024, Additional history exists DTap/Tdap Vaccines (3 - Td or Tdap) 11/10/2026 11/10/2016, 03/30/2011 VITAMIN D LEVEL ONCE IN A LIFETIME-USE SMARTSET# 79876 Completed 05/11/2015 RETIRED - COLONOSCOPY-EVERY 5 YRS [...] this encounter Medical Devices Implanted Type Area Baker Device Identifier Shelf Expiration Date Model / Serial / Lot Port Pwr Mri Isp Profile - [id number] Implanted:Qty: 1 on 07/24/2020 by Akash Castillo MD at OR [facility] Right: Chest CR BARD : PERIPHERAL VASCULAR 04/12/2021 [id number] / / [id number] documented as of this encounter Advance Directives [...] Agents on File Name Relationship Healthcare Agent [facility] p Communication Juanita Dalton Adult Child Health Care Agent Care Teams Reel Man Relationship Specialty Start Date End Date Dhruv Moss MD [address] [place] [address] [place] [address] PCP - General Family Medicine 08/27/21 documented as of this encounter
--- OUTSIDE RECORDS SUMMARY | 2024-10-10 00:29 | External Medical Summary | Summary of Care ---
Author Name Unknown Organization [facility] Address [address] [place] [address] Phone [phone] Care Team Providers Care [employer]cher [employer] Name Role Phone Dhruv Moss MD Primary Care Provide r Reason for Visit * Reason Onset Date Comments Pre Cert/Prior Auth 08/28/2024 Eylea Encounter Details Date Type Department Care Team (Late st Contact Info) Description 08/28/2024 Telephone Ophthalmology, [facility] [address] [place] [address] Fernando Damon, [address] [facility] [place] [address] Pre Cert/Prior Auth (Eylea) Allergies No known [...] chew 90 Capsule 1 04/01/2024 Active Pen [place] 32G X 4 MM Use as directed. Use to inject insulin up to 4 times daily. 400 Each 3 04/05/2024 Active Atorvastatin Calcium 40 MG Oral Tablet (Lipitor)Indications :Dyslipidemia, goal LDL below 70 TAKE ONE TABLET BY MOUTH IN THE MORNING 90 Tablet 2 04/22/2024 Active [employer] In Vitro Strip (Glucose Blood)Indications:Ty pe 2 [...] 24 Hour (Imdur)Indications:C oronary artery disease involving [place] coronary artery of [place] heart without angina pectoris,HTN, goal below 140/90 [...] Oral TabletIndications:MD Santos (myelodysplastic syndrome), high grade ([facility]) Take 1 Tablet by mouth [...] syndrome), high grade (HCC),Stem cells transplant status ([facility]),Acquired hypothyroidism 1000 mL IV DAILY PRN 12/08/2021 Active bevaCIZumab (Avastin) inj 1.25 mgIndications: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 Does not have any evidence of jxfxx-glodwx-qfdb disease Last Assessment & Plan: Continues to [...] -continue venlafaxine Coronary artery disease invo lving [place] coronary artery of [place] heart without angina pectoris 06/12/2017 Overview: S/P EDIL to LAD on 06/12/17 Last Assessment & Plan: No angina - Continue atorvastatin, isosorbide, metoprolol - no ASA due to thrombocytopenia Dyslipidemia, goal LDL below 70 11/25/2011 Last Assessment & Plan: Patient having no issues. She continues on Lipitor 40 mg daily Last lab I will was that I can find were from [phone] Assessment/plan: Dyslipidemia with patient currently taking Lipitor [...] mRNA, LNP-s, No Pre serve, 2-Dose Series ([employer]) 02/05/2021,01/08/2021 COVID-19, LNP-s, No Preserve , Ye-sucrose, [...] ofboth eyes and macular edema, unspecified whether mcc insulin use ([facility]) E11.3313 Medication: Eylea Eye Treated: OU Date of office visit: 08/28/24 documented in this encounter Plan of Treatment Upcoming Encounters Date Type Department Care Team (Late st Contact Info) Description 08/29/2024 11:00 AM EDT Home Visit [facility] [address] [place] [address] Tremaine Morgan PA-C [address] [place] [address] 08/30/2024 2:30 PM EDT Office Visit Pharmacy, [address] [place] [address] [place] [address] 09/04/2024 7:00 AM EDT [facility] [email or web address] [place] [address] [facility] [email or web address] [place] [address] 09/11/2024 7:00 AM EDT [facility] [email or web address] [place] [address] [facility] [address] [facility] [place] [address] 09/18/2024 7:00 AM EST [facility] [address] [facility] [place] [address] [facility] [address] [facility] [place] [address] 09/25/2024 7:00 AM EST [facility] [address] [place] [address] [facility] [address] [place] [address] 09/30/2024 10:45 AM EST Office Visit Ophthalmology, [facility] [address] [facility] [place] [address] Fernando Damon DO [address] [facility] [address] 10/02/2024 7:00 AM EST [facility] [address] [place] [address] [facility] [address] [place] [address] 10/08/2024 10:00 AM EST Home Visit [facility] [address] [facility] [place] [address] Marisa Pacheco, TANYA [address] [facility] [place] [address] 10/09/2024 7:00 AM EST [facility] [address] [place] [address] [facility] [address] [facility] [place] [address] 10/16/2024 7:00 AM EST [facility] [address] [place] [address] [facility] [address] [email or web address] [address] 10/16/2024 1:45 PM EST [facility] [place] [address] [facility] [place], [place] [phone] Jitendra Aguero MD [address] [place] [address] 2024 7:00 AM EST [facility] [email or web address] [place], [place] [address] [facility], [facility] [email or web address] [place], [place] [address] 10/30/2024 7:00 AM EST [facility] [email or web address] [place], [place] [address] M[facility], [facility] [email or web address] [place], [place] [address] 11/05/2024 7:00 AM EST [facility] [address] [email or web address] [address] M[facility], [facility] [email or web address] [place], [place] [address] 11/12/2024 7:00 AM EST [facility] [email or web address] [place], [place] [address] [facility], [facility] [address] [email or web address] [address] 11/20/2024 7:00 AM EST [facility] [address] [email or web address] [address] M[facility] [address] [email or web address] [address] 11/27/2024 7:00 AM EST [facility] [email or web address] [place], [place] [address] [facility] [address] [place] [address] 12/04/2024 7:00 AM EST [facility] [address] [place] [address] [facility] [address] [address] 12/11/2024 7:00 AM EST [facility] [address] [place] [address] [facility], [facility] [address] [facility] [place] [address] 12/18/2024 7:00 AM EST [facility] [address] [place] [address] [facility] [address] [place] [address] 12/24/2024 2:30 PM EST Nurse Only Ancillary [address] [place] [address] [place], Nurse [address] [place] [address] 12/25/2024 7:00 AM EST [facility] [address] [place] [address] [facility] [address] [place] [address] 01/01/2025 7:00 AM EST [facility] [address] [place] [address] [facility] [address] [place] [address] 01/08/2025 7:00 AM EST [facility] [address] [place] [address] [facility] [address] [place] [address] 01/13/2025 11:40 AM EST Office Visit Family [address] [place] [phone] Dhruv Moss MD [address] [place] [address] [place] [address] 01/15/2025 7:00 AM EST [facility] [address] [email or web address] [address] [facility] [address] [email or web address] [address] 01/22/2025 7:00 AM EDT Laboratory [facility] [address] [email or web address] [address] [facility] [address] [email or web address] [address] 01/29/2025 7:00 AM EDT Laboratory [facility] [address] [email or web address] [address] M[facility] [address] [place] [address] 02/05/2025 7:00 AM EDT Laboratory [facility] [address] [email or web address] [address] M[facility], [facility] [address] [place] [address] 02/12/2025 7:00 AM EDT Laboratory [facility] [address] [email or web address] [address] M[facility], [facility] [address] [email or web address] [address] 02/19/2025 7:00 AM EDT Laboratory [facility] [address] [email or web address] [address] M[facility], [facility] [address] [email or web address] [address] 02/26/2025 7:00 AM EDT Laboratory [facility] [address] [place] [address] M[facility], [facility] [address] [facility] [place] [address] 03/05/2025 7:00 AM EDT Laboratory [facility] [address] [place] [address] M[facility], [facility] [address] [place] [address] 03/12/2025 7:00 AM EDT Laboratory [facility] [address] [place] [address] M[facility], [facility] [address] [place] [address] 03/19/2025 7:00 AM EDT Laboratory [facility] [address] [facility] [place] [address] M[facility], [facility] [address] [place] [address] 03/26/2025 7:00 AM EDT Laboratory [facility] [address] [facility] [place] [address] M[facility], [facility] [address] [place] [address] 04/02/2025 7:00 AM EDT Laboratory [facility] [address] [place] [address] M[facility], [facility] [address] [place] [address] 04/09/2025 7:00 AM EDT Laboratory [facility] [address] [facility] [place] [address] M[facility], [facility] [address] [place] [address] 04/16/2025 7:00 AM EDT Laboratory [facility] [address] [facility] [place] [address] [facility], [facility] [address] [email or web address] [address] 04/23/2025 7:00 AM EDT Laboratory [facility] [address] [email or web address] [address] M[facility], [facility] [address] [email or web address] [address] 04/30/2025 7:00 AM EDT Laboratory [facility] [address] [email or web address] [address] M[facility], [facility] [address] [place] [address] 05/07/2025 7:00 AM EDT Laboratory [facility] [address] [email or web address] [address] M[facility], [facility] [address] [place] [address] 05/14/2025 7:00 AM EDT Laboratory [facility] [address] [email or web address] [address] M[facility], [facility] [address] [place] [address] 05/21/2025 7:00 AM EDT Laboratory [facility] [address] [email or web address] [address] [facility], [facility] [address] [place] [address] 07/21/2025 1:30 PM EDT Imaging Radiology [address] [place] [address] 08/04/2025 1:20 PM EDT Office Visit Family Medicine [address] [place] [phone] Dhruv Moss MD [address] [place] [address] [place] [address] Health Maintenance Due Date Last Done Comments *BISPHONATE OR OTHER ACCEPTABLE MEDICATION NEEDED FOR OSTEOPOROSIS (REFER TO SMARTSET #1146) 11/06/2023 Colonoscopy 05/06/2024 05/06/2019, 05/06/2019 CKD PHOS USE SMARTSET 85471 06/07/2024 07/2 04/2023, 05/31/2023, 05/08/2023, Additional history [...] Additional history exists CKD HGB USE SMARTSET 33607 08/28/202508/28, 08/28/2024, 08/21/2024, Additional history exists Diabetic Eye Exam 08/28/2025 08/28/2024, , 08/28/2024, Additional history exists DTap/Tdap Vaccines (3 - Td or Tdap) 11/10/2026 11/10/2016, 03/30/2011 VITAMIN D LEVEL ONCE IN A LIFETIME-USE SMARTSET# 38519 Completed 05/11/2015 RETIRED - COLONOSCOPY-EVERY 5 YRS [...] this encounter Medical Devices Implanted Type Area Digital Art Director Device Identifier Shelf Expiration Date Model / Serial / Lot Port Pwr Mri Isp Profile - [id number] Implanted:Qty: 1 on 07/24/2020 by Akash Castillo MD at OR [facility] Right: Chest CR BARD : PERIPHERAL VASCULAR 04/12/2021 [id number] / / [id number] documented as of this encounter Advance Directives [...] Agents on File Name Relationship Healthcare Agent [facility] p Communication Juanita Dalton Adult Child Health Care Agent Care Teams [employer] Relationship Specialty Start Date End Date Dhruv Moss MD [address] [place] [address] [place] [address] PCP - General Family Medicine 08/27/21 documented as of this encounter
--- OUTSIDE RECORDS SUMMARY | 2024-10-10 00:29 | External Medical Summary | Summary of Care ---
Author Name Unknown Organization [facility] Address [address] [facility] [place] [address] Phone [phone] Care Team Providers Care Welfare Specialist Name Role Phone Dhruv Moss MD Primary Care Provide r Reason for Visit * Reason Onset Date Comments Precert Pending 08/28/2024 17 MELINA MARCELO Encounter Details Date Type Department Care Team (Late st Contact Info) Description 08/28/2024 Telephone Ophthalmology, [facility] [address] [place] [address] Fernando Damon, [address] [place] [address] Precert Pending (17 MELINA MARCELO) Allergies No [...] Nausea. 60 Tablet 3 12/09/2021 Active OneTouch VerDigital Ally Flex System w/Device Kit Use as directed [...] chew 90 Capsule 1 04/01/2024 Active Pen Ackerly 32G X 4 MM Use as directed. Use to inject insulin up to 4 times daily. 400 Each 3 04/05/2024 Active Atorvastatin Calcium 40 MG Oral Tablet (Lipitor)Indications :Dyslipidemia, goal LDL below 70 TAKE ONE TABLET BY MOUTH IN THE MORNING 90 Tablet 2 04/22/2024 Active [employer] In Vitro Strip (Glucose Blood)Indications:Ty pe 2 [...] 24 Hour (Imdur)Indications:C oronary artery disease involving [place] coronary artery [...] 3553 0000 2079 7075 732 / DID: [id number] Matched Unrelated 10/24--- DPB1 Match ABO/Rh: A [...] Thrombocytopenia 12/06/2022 Last Assessment & Plan: Platelets 21287 on 03/20 Questionable hematuria Urinary incontinence 09/12/2022 [...] failure. Does not have any evidence of ifygs-gvoyli-zqil disease Last Assessment & Plan: Continues to [...] was that I can find were from [id number] Assessment/plan: Dyslipidemia with patient currently taking Lipitor [...] No 08/13/2024 Does the household have a [facility]? (Household - for [...] whether joint terminal attack controller insulin use ([facility]) E11.3313 Medication: Eylea Eye Treated: OU Date of office visit: 08/28/24 documented in this encounter Plan of Treatment Upcoming Encounters Date Type Department Care Team (Late st Contact Info) Description 08/30/2024 2:30 PM EDT Office Visit Pharmacy, [address] [place] [address] [place] [address] 09/04/2024 7:00 AM EDT Laboratory [facility] [address] [place] [address] [facility] [address] [place] [address] 09/11/2024 7:00 AM EDT Laboratory [facility] [address] [place] [address] [facility] [address] [place] [address] 09/18/2024 7:00 AM EST [facility] [address] [place] [address] [facility] [address] [facility], [place] [address] 09/23/2024 9:00 AM EST [facility] Visit [facility] [address] [facility] [place] [address] Tremaine Morgan PA-C [address] [facility] [place] [address] 09/25/2024 7:00 AM EST Laboratory [facility] Ph[facility]bot[facility] [address] [facility], [place] [address] [facility] [address] [facility], [place] [address] 09/30/2024 10:45 AM EST Office Visit Ophthalmology, [facility] [address] [facility] [place] [address] Fernando Damon DO [facility] [place] [address] 10/02/2024 7:00 AM EST Laboratory [facility] [address] [facility], [place] [address] [facility] [address] [facility], [place] [address] 10/08/2024 10:00 AM EST Home Visit [facility] [address] [facility] [place] [address] Marisa Pacheco, TANYA [facility] [address] 10/09/2024 7:00 AM EST Laboratory [facility]bot[facility] [address] [facility], [place] [address] [facility] [address] [facility] [place] [address] 10/16/2024 7:00 AM EST Laboratory Lab [facility] Ph[facility]bot[facility] [address] [facility] [place] [address] [facility] [address] [address] 10/16/2024 1:45 PM EST Office Visit Hematology/Oncology [facility] [address] [facility] [place] [id number] Jitendra Aguero MD 200 [facility] [place] [address] 2024 7:00 AM EST Laboratory [facility] [address] [place] [address] [facility] [address] [place] [address] 10/30/2024 7:00 AM EST Laboratory [facility] [address] [place], [place] [address] [facility] [address] [address] 11/05/2024 7:00 AM EST Laboratory [facility] [address] [address] [facility] [address] [address] 11/12/2024 7:00 AM EST Laboratory [facility] [address] [place] [address] [facility] [address] [place] [address] 11/20/2024 7:00 AM EST Laboratory [facility] [address] [address] [facility] [address] [address] 11/27/2024 7:00 AM EST Laboratory [facility] [address] [address] [facility] [address] [place] [address] 12/04/2024 7:00 AM EST Laboratory [facility] Phlebotomy [facility] [address] [facility] [place] [address] [facility] [address] [facility] [place] [address] 12/11/2024 7:00 AM EST Laboratory [facility] [address] [place] [address] [facility] [address] [facility] [place] [address] 12/18/2024 7:00 AM EST Laboratory Lab [facility]lebotomy [facility] [address] [employer] [place] [address] [facility] [address] [place] [address] 12/24/2024 2:30 PM EST Nurse Only Ancillary [address] [place] [address] [place], Nurse [address] [place] [address] 12/25/2024 7:00 AM EST Laboratory [facility] [address] [address] [facility] [address] [place] [address] 01/01/2025 7:00 AM EST Laboratory [facility] [address] [place] [address] [facility] [address] [facility] [place] [address] 01/08/2025 7:00 AM EST Laboratory [facility]le[facility] [address] [address] [facility] [address] [place] [address] 01/13/2025 11:40 AM EST Office Visit Family [address] [place] [phone] Dhruv Moss MD [address] [place] [address] [place] [address] 01/15/2025 7:00 AM EST Laboratory [facility] [address] [place], [place] [address] [facility] [address] [place] [address] 01/22/2025 7:00 AM EDT Laboratory [facility] [address] [place], [place] [address] [facility] [address] [place] [address] 01/29/2025 7:00 AM EDT Laboratory Lab [facility] Phlebotomy [facility] [address] [place] [address] [facility] [address] [place] [address] 02/05/2025 7:00 AM EDT Laboratory [facility] [address] [address] M[facility] [address] [place] [address] 02/12/2025 7:00 AM EDT Laboratory Lab [facility] Ph[facility] [address] [place] [address] [facility] [address] [place] [address] 02/19/2025 7:00 AM EDT Laboratory Lab [facility] Phlebotomy [facility] [address] [place] [address] M[facility] [address] [place] [address] 02/26/2025 7:00 AM EDT Laboratory Lab [facility] Phlebotomy [facility] [address] [facility] [place] [address] [facility] [address] [facility] [place] [address] 03/05/2025 7:00 AM EDT Laboratory Lab [facility] Phlebotomy [facility] [address] [facility] [place] [address] [facility] [address] [facility] [place] [address] 03/12/2025 7:00 AM EDT Laboratory Lab [facility] Phlebotomy [facility] [address] [facility] [place] [address] M[facility] [address] [facility] [place] [address] 03/19/2025 7:00 AM EDT Laboratory Lab [facility] Phlebotomy [facility] [address] [facility] [place] [address] [facility] [address] [facility] [place] [address] 03/26/2025 7:00 AM EDT Laboratory Lab [facility] Phlebotomy [facility] [address] [facility] [place] [address] [facility] [address] [facility] [place] [address] 04/02/2025 7:00 AM EDT Laboratory Lab [facility] Phlebotomy [facility] [address] [facility] [place] [address] [facility], [facility] [address] [facility] [place] [address] 04/09/2025 7:00 AM EDT Laboratory Lab [facility] Phlebotomy [facility] [address] [facility] [place] [address] [facility], [facility] [address] [facility] [place] [address] 04/16/2025 7:00 AM EDT Laboratory Lab [facility] Phlebotomy [facility] [address] [facility] [place] [address] M[facility], [facility] Draw [address] [place] [address] 04/23/2025 7:00 AM EDT Laboratory Lab [facility] Ph[facility]botomy [facility] [address] [place] [address] M[facility], [facility] [address] [place] [address] 04/30/2025 7:00 AM EDT Laboratory Lab [facility] [address] [place] [address] M[facility] [address] [place] [address] 05/07/2025 7:00 AM EDT Laboratory Lab [facility]omy [facility] [address] [place] [address] [facility] [address] [place] [address] 05/14/2025 7:00 AM EDT Laboratory Lab [facility] [address] [place] [address] M[facility], [facility] [address] [place] [address] 05/21/2025 7:00 AM EDT Laboratory Lab [facility] Phlebotomy [facility] [address] [place] [address] M[facility] [address] [place] [address] 07/21/2025 1:30 PM EDT Imaging Radiology [address] [place] [address] 08/04/2025 1:20 PM EDT Office Visit Family Medicine [address] [place] [phone] Dhruv Moss MD [address] [place] [address] [place] [address] Health Maintenance Due Date Last Done Comments *BISPHONATE OR OTHER ACCEPTABLE MEDICATION NEEDED FOR OSTEOPOROSIS (REFER TO SMARTSET #1146) 11/06/2023 Colonoscopy 05/06/2024 05/06/2019, 05/06/2019 CKD PHOS USE SMARTSET 90118 06/07/202405/14, 05/31/2023, 05/08/2023, Additional history exists COVID-19 [...] Additional history exists CKD HGB USE SMARTSET 43393 08/28/202508/28, 08/28/2024, 08/21/2024, Additional history exists Diabetic Eye Exam 08/28/2025 08/28/2024, , 08/28/2024, Additional history exists DTap/Tdap Vaccines (3 - Td or Tdap) 11/10/2026 11/10/2016, 03/30/2011 VITAMIN D LEVEL ONCE IN A LIFETIME-USE SMARTSET# 28817 Completed 05/11/2015 RETIRED - COLONOSCOPY-EVERY 5 YRS [...] this encounter Medical Devices Implanted Type [employer] Device Identifier Shelf Expiration Date Model / Serial / Lot Port Pwr Mri Isp Profile - [id number] Implanted:Qty: 1 on 07/24/2020 by Akash Castillo MD at OR [facility] Right: Chest CR BARD : PERIPHERAL VASCULAR 04/12/2021 [id number] / / [id number] documented as of this encounter Advance Directives [...] patient have Health Care Power of Attor okle? No * Full Code Date Activated Date [...] Agents on File Name Relationship Healthcare Agent [facility] p Communication Juanita Silva Adult Child Health Care Agent Care Teams Welfare Specialist Relationship Specialty Start Date End Date Dhruv Moss MD [address] [place] [address] [place] [address] PCP - General Family Medicine 08/27/21 documented as of this encounter
--- OUTSIDE RECORDS SUMMARY | 2024-10-10 00:29 | External Medical Summary | Summary of Care ---
Author Name Unknown Organization [facility] [address] [facility] [address] Phone [phone] Care Team Providers Care Health Researcher Name Role Phone Dhruv Moss MD Primary Care Provide r Encounter Details Date Type Department Care Team (Late st Contact Info) Description 08/29/2024 Result Scan Unspecified Department [facility] [address] [facility] [phone] <No scans attached> Allergies No known active allergiesdocumented as of this encounter (statuses as of 08/30/2024) Medications Medication Sig Dispensed Refills Start Date [...] chew 90 Capsule 1 04/01/2024 Active Pen Ione 32G X 4 MM Use as directed. [...] 24 Hour (Imdur)Indications:C oronary artery disease involving emmonak coronary artery of emmonak heart without angina pectoris,HTN, goal below 140/90 [...] A1c goal of less than 8.0% ([facility]) Use to test blood sugar three times a day DXe11.9 300 Each 3 07/22/2024 Active Insulin Glargine Solostar 100 UNIT/ML Subcutaneous Solution Pen-injector (Lantus SoloStar) Inject 16 Units under the skin in the morning. 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 Date of Transplant: 09/01/2021 Conditioning Regimen: Fludarabine / Busulfan 2 with post-transplant Cytoxan ABO/Rh: A Positive CMV status: CMV Positive--- GRID: [id number] / DID: [id number] Matched Unrelated 10/24--- DPB1 Match ABO/Rh: A [...] Thrombocytopenia 12/06/2022 Last Assessment & Plan: Platelets [id number] on 03/20 Questionable hematuria Urinary incontinence 09/12/2022 [...] failure. Does not have any evidence of vpzjl-nsrrnq-mlln disease Last Assessment & Plan: Continues to [...] -continue venlafaxine Coronary artery disease invo lving emmonak coronary artery of emmonak heart without angina pectoris 06/12/2017 Overview: S/P EDIL to LAD on 06/12/17 Last Assessment & Plan: No angina - Continue atorvastatin, isosorbide, metoprolol - no ASA due to thrombocytopenia Dyslipidemia, goal LDL below 70 11/25/2011 Last Assessment & Plan: Patient having no issues. She continues on Lipitor 40 mg daily Last lab I will was that I can find were from [phone] Assessment/plan: Dyslipidemia with patient currently taking Lipitor [...] as of this encounter (statuses as of 08/30/2024) Resolved Problems Problem Noted Date Diagnosed Date [...] as of this encounter (statuses as of 08/30/2024) Immunizations Name Administration Dates Next Due COVID-19 mRNA, LNP-s, No Pre serve, 2-Dose Series ([employer]) 02/05/2021,01/08/2021 COVID-19, LNP-s, No Preserve , Ye-sucrose, Ages 12+ (Pfizer) 12/06/2021 Pneumococcal Conjugate Vacc, 13 Valent (Prevnar) 06/10/2022,10/09/2015 Pneumococcal Polysaccharide PPV23 (Pneumovax) 01/06/2017,03/30/2011 Seasonal Influenza Vac., MDV , IM, 0.5 mL (Fluzone) 09/03/2014,08/13/2013 Seasonal Influenza Virus Vac cine, Unspecified Formulation 07/25/2019,07/23/2018,07/27/2017,01/06,10/09/2015,09/03/2014,08/27/2013 ,08/13/2013,08/27/2012,11/25/2011,/11/2009,10/13/2009 Seasonal Influenza, PF, 6 M & above, [...] 08/30/2024 2:30 PM EDT Office Visit Pharmacy, [address] [place] [address] [place] [address] 09/04/2024 7:00 AM EDT [facility] [address] [place] [address] [facility] [address] [place] [address] 09/11/2024 7:00 AM EDT [facility] [address] [place] [address] [facility] [address] [place] [address] 09/18/2024 7:00 AM EST [facility] [address] [place] [address] [facility] [address] [place] [address] 09/23/2024 9:00 AM EST Home Visit [facility] [address] [facility] [place] [address] Tremaine Morgan PA-C [address] [place] [address] 09/25/2024 7:00 AM EST [facility] [address] [facility] [place] [address] [facility] [address] [place] [address] 09/30/2024 10:45 AM EST Office Visit [facility], [facility] [place] [address] Fernando Damon DO [address] [facility] [place] [address] 10/02/2024 7:00 AM EST [facility] [address] [facility], [place] [address] [facility] [address] [facility], [place] [address] 10/08/2024 10:00 AM EST [facility] Visit [facility] [place] [address] Marisa Pacheco RN [address] [facility] [place] [address] 10/09/2024 7:00 AM EST [facility] [address] [facility], [place] [address] [facility] [address] [facility], [place] [address] 10/16/2024 7:00 AM EST [facility] [address] [facility], [place] [address] [facility] [address] [facility], [place] [address] 10/16/2024 1:45 PM EST Office Visit Hematology/Oncology [facility] [place] [address] [facility] [place], [place] [phone] Jitendra Aguero MD [address] [place] [address] 2024 7:00 AM EST [facility] [address] [facility] [place], [place] [address] [facility] [address] [facility], [place] [address] 10/30/2024 7:00 AM EST [facility] [address] [place] [address] [facility] [address] [place] [address] 11/05/2024 7:00 AM EST [facility] [address] [place] [address] [facility] [address] [place] [address] 11/12/2024 7:00 AM EST [facility] [address] [place] [address] [facility] [address] [place] [address] 11/20/2024 7:00 AM EST [facility] [address] [place] [address] [facility] [address] [place] [address] 11/27/2024 7:00 AM EST [facility] [address] [place] [address] [facility] [address] [place] [address] 12/04/2024 7:00 AM EST [facility] [address] [place] [address] [facility] [address] [place] [address] 12/11/2024 7:00 AM EST [facility] [address] [place] [address] [facility] [address] [place] [address] 12/18/2024 7:00 AM EST [facility] [address] [place] [address] [facility] [address] [place] [address] 12/24/2024 2:30 PM EST Nurse Only Ancillary [address] [place] [address] [place], Nurse Annual [address] [place] [address] 12/25/2024 7:00 AM EST [facility] [address] [place] [address] [facility] [address] [place] [address] 01/01/2025 7:00 AM EST [facility] [address] [place] [address] [facility] [address] [facility] [place] [address] 01/08/2025 7:00 AM EST [facility] [address] [facility] [place] [address] [facility] [address] [place], [place] [address] 01/13/2025 11:40 AM EST Office Visit Family Medicine [address] [place] [phone] Dhruv Moss MD [address] [place] [address] [place] [address] 01/15/2025 7:00 AM EST [facility] [address] [place], [place] [address] [facility] [address] [place], [place] [address] 01/22/2025 7:00 AM EDT [facility] [address] [place], [place] [address] [facility] [address] [place] [address] 01/29/2025 7:00 AM EDT [facility] [address] [place] [address] [facility] [address] [facility] [place] [place] [address] 02/05/2025 7:00 AM EDT [facility] [address] [place] [address] [facility] [address] [place] [address] 02/12/2025 7:00 AM EDT [facility] [address] [place] [address] [facility] [address] [place] [address] 02/19/2025 7:00 AM EDT [facility] [address] [place] [address] [facility] [address] [place] [address] 02/26/2025 7:00 AM EDT [facility] [address] [place] [address] [facility] [address] [place] [address] 03/05/2025 7:00 AM EDT [facility] [address] [place] [address] [facility] [address] [place] [address] 03/12/2025 7:00 AM EDT [facility] [address] [facility] [place] [place] [address] [facility] [address] [facility] [place] [address] 03/19/2025 7:00 AM EDT [facility] [address] [place] [address] [facility] [address] [place] [address] 03/26/2025 7:00 AM EDT [facility] [address] [place] [address] [facility] [address] [place] [address] 04/02/2025 7:00 AM EDT [facility] [address] [place] [address] [facility] [address] [place] [address] 04/09/2025 7:00 AM EDT [facility] [address] [place] [address] [facility] [address] [place] [address] 04/16/2025 7:00 AM EDT [facility] [address] [place] [address] [facility] [address] [place] [address] 04/23/2025 7:00 AM EDT [facility] [address] [place] [address] [facility] [address] [place] [address] 04/30/2025 7:00 AM EDT [facility] [address] [place] [address] [facility] [address] [place] [address] 05/07/2025 7:00 AM EDT [facility] [address] [place] [address] [facility] [address] [facility] [place] [address] 05/14/2025 7:00 AM EDT [facility] [address] [facility] [address] [place], [place] [address] [facility] [address] [facility] [place] [address] 05/21/2025 7:00 AM EDT [facility] [address] [facility] [address] [place], [place] [address] [facility] [address] [facility] [address] [place], [place] [address] 07/21/2025 1:30 PM EDT Imaging Radiology [address] [place] [address] 08/04/2025 1:20 PM EDT Office Visit Family Medicine [address] [place] [phone] Dhruv Moss MD [address] [place] [address] [place] [address] Health Maintenance Due Date Last Done Comments *BISPHONATE OR OTHER ACCEPTABLE MEDICATION NEEDED FOR OSTEOPOROSIS (REFER TO SMARTSET #1146) 11/06/2023 Colonoscopy 05/06/2024 05/06/2019, 05/06/2019 CKD PHOS USE SMARTSET 43281 06/07/202405/14, 05/31/2023, 05/08/2023, Additional history exists COVID-19 [...] Additional history exists CKD HGB USE SMARTSET 36462 08/28/202508/28, 08/28/2024, 08/21/2024, Additional history exists Diabetic Eye Exam 08/28/2025 08/28/2024, , 08/28/2024, Additional history exists DTap/Tdap Vaccines (3 - Td or Tdap) 11/10/2026 11/10/2016, 03/30/2011 VITAMIN D LEVEL ONCE IN A LIFETIME-USE SMARTSET# 43272 Completed 05/11/2015 RETIRED - COLONOSCOPY-EVERY 5 YRS [...] this encounter Medical Devices Implanted Type Area Online Program Coordinator Device Identifier Shelf Expiration Date Model / Serial / Lot Port Pwr Mri Isp Profile - [id number] Implanted:Qty: 1 on 07/24/2020 by Akash Castillo MD at [facility] Right: Chest CR BARD : PERIPHERAL VASCULAR 04/12/2021 [id number] / / [id number] documented as of this encounter Procedures Procedure Name Priority Date/Time Associated Diagnosis Comments OUTSIDE LAB RESULTS 08/29/2024 documented in this encounter Results * OUTSIDE LAB RESULTS (08/29/2024) 08/29/2024 Jitendra Aguero MD LABORATORY documented in this [...] Adult Child Health Care Agent Care Teams Health Researcher Relationship Specialty Start Date End Date Dhruv Moss [facility] [phone] PCP - General Family Medicine 08/27/21 documented as of this encounter
--- OUTSIDE RECORDS SUMMARY | 2024-10-10 00:29 | External Medical Summary | Summary of Care ---
Author Name Unknown Organization [facility] Address [address] [facility] [place] [address] Phone [phone] Care Team Providers Care Oil Well Gun Perforator Operator Name Role Phone Dhruv Moss MD Primary Care Provide r Reason for Visit * Reason Onset Date Comments Appointment 08/30/2024 Encounter Details Date Type Department Care Team (Late st Contact Info) Description 08/30/2024 Telephone Pharmacy, [address] [place] [address] [place] [address] Appointment Allergies No known active allergiesdocumented as [...] for Nausea. 60 Tablet 3 12/09/2021 Active [employer]shship FitnessTouch Verio Flex System w/Device Kit Use as [...] chew 90 Capsule 1 04/01/2024 Active Pen [place] 32G X 4 MM Use as directed. [...] 24 Hour (Imdur)Indications:C oronary artery disease involving [place] coronary artery of [place] heart without angina pectoris,HTN, goal below 140/90 [...] A1c goal of less than 8.0% ([facility]) TAKE 1 TABLET BY MOUTH TWICE DAILY [...] A1c goal of less than 8.0% ([facility]) Use to test blood sugar three times a day DXe11.9 300 Each 3 07/22/2024 Active Insulin Glargine Solostar 100 UNIT/ML Subcutaneous Solution Pen-injector (Lantus SoloStar) Inject 16 Units under the skin in the morning. 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 Does not have any evidence of bleyp-itsynz-dyvk disease Last Assessment & Plan: Continues to [...] -continue venlafaxine Coronary artery disease invo lving [place] coronary artery of [place] heart without angina pectoris 06/12/2017 Overview: S/P EDIL to LAD on 06/12/17 Last Assessment & Plan: No angina - Continue atorvastatin, isosorbide, metoprolol - no ASA due to thrombocytopenia Dyslipidemia, goal LDL below 70 11/25/2011 Last Assessment & Plan: Patient having no issues. She continues on Lipitor 40 mg daily Last lab I will was that I can find were from [id number] Assessment/plan: Dyslipidemia with patient currently taking Lipitor [...] No 08/13/2024 Does the household have a [facility] source of income? (Household - for ages [...] Miscellaneous Notes * Telephone Encounter - Makenzie Pool RPh - 08/30/2024 11:33 AM EDT Patient Phone Numbers Called and spoke to patient. Appointment rescheduled. Makenzie Pool [facility], PharmD Clinical Pharmacist - Youth Probation Officer Medication [facility] 08/30/2024, 11:33 AM [phone] * Telephone Encounter - Marisa Pereyra CPhT - 08/30/2024 10:55 AM EDT Caller's name: Ruth Preferred call back number(OFFICE NUMBER FOR ): [phone] Reason for call: Pt states she had eye injections and is unavailable to come in person for her appttoday. Pt states she can do a phone call or can r/s depending on what the [facility] prefers. Please Advise. Thank you, Marisa Pereyra CPhT Director Of Planning II [facility] [address] [place] [address] [address] [place] [address] [id number] 08/30/2024,10:56 AM documented in this encounter Plan of Treatment Upcoming Encounters Date Type Department Care Team (Late st Contact Info) Description 09/04/2024 7:00 AM EDT Laboratory Lab Mobile Phlebotomy [facility] [address] [place] [address] [facility] [address] [place] [address] 09/11/2024 7:00 AM EDT Laboratory Lab Mobile Phlebotomy [facility] [address] [place] [address] Mvmg, [facility]ml Mobile Home Draw [address] [facility] [place] [address] 09/16/2024 2:30 PM EST Office Visit [facility], [address] [place] [address] [place] [address] 09/18/2024 7:00 AM EST Laboratory Lab Mobile Phlebotomy [facility] [address] [facility] [place] [address] Mvmg, Gml [facility] Draw [address] [facility] [place] [address] 09/23/2024 9:00 AM EST Home Visit [facility] [address] [place] [address] Tremaine Morgan PA-C [address] [place] [address] 09/25/2024 7:00 AM EST Laboratory Lab Mobile Phlebotomy [facility] [address] [facility] [place] [address] Mvmg, Gml Mobile Home Draw [address] [facility] [place] [address] 09/30/2024 10:45 AM EST Office Visit Ophthalmology, [facility] [address] [place] [address] Fernando Damon, DO [address] [place] [address] 10/02/2024 7:00 AM EST Laboratory Lab Mobile Phlebotomy [facility] [address] [facility] [place] [address] Mvmg, Gml Mobile Home Draw [address] [facility] [place] [address] 10/08/2024 10:00 AM EST Home Visit [facility] [place] [address] [place] [address] Marisa Pacheco RN [address] [place] [address] 10/09/2024 7:00 AM EST Laboratory Lab Mobile Phlebotomy [facility] [address] [place] [address] M[facility], [facility] Draw [address] [place], [place] [address] 10/16/2024 7:00 AM EST Laboratory Lab Mobile Phlebotomy [facility] [address] [place] [address] M[facility]mg, Gml Mobile [facility] Draw [address] [facility] [place] [address] 10/16/2024 1:45 PM EST Office Visit [facility]ology[facility] [place] [address] [facility] [address] [place], [place] [id number] Jitendra Aguero MD [address] [facility] [place] [address] 2024 7:00 AM EST Laboratory Lab Mobile Phlebotomy [facility] [address] [place] [address] Mvmg, Gml Mobile Home Draw [address] [facility] [place], [place] [address] 10/30/2024 7:00 AM EST Laboratory Lab Mobile Phlebotomy [facility] [address] [place], [place] [address] Mvmg, Gml Mobile Home Draw [address] [place] [address] 11/05/2024 7:00 AM EST Laboratory Lab Mobile Phlebotomy [facility] [address] [place], [place] [address] Mvmg, Gml Mobile Home Draw [address] [facility] [place], [place] [address] 11/12/2024 7:00 AM EST Laboratory Lab Mobile Phlebotomy [facility] [address] [place] [address] Mvmg, Gml Mobile Home Draw [address] [place] [address] 11/20/2024 7:00 AM EST Laboratory Lab Mobile Phlebotomy [facility] [address] [place] [address] Mvmg, Gml Mobile Home Draw [address] [place] [address] 11/27/2024 7:00 AM EST Laboratory Lab Mobile Phlebotomy [facility] [address] [place] [place] [address] Mvmg, Gml Mobile Home Draw [address] [place] [address] 12/04/2024 7:00 AM EST Laboratory Lab Mobile Phlebotomy [facility] [address] [place] [address] Mvmg, Gml Mobile Home Draw [address] [place] [address] 12/11/2024 7:00 AM EST Laboratory Lab Mobile Phlebotomy [facility] [address] [place] [address] Mvmg, Gml Mobile Home Draw [address] [place] [address] 12/18/2024 7:00 AM EST Laboratory Lab Mobile Phlebotomy [facility] [address] [place] [address] Mvmg, Gml Mobile Home Draw [address] [facility] [place] [address] 12/24/2024 2:30 PM EST Nurse Only Ancillary [address] [place] [address] [place], Nurse [address] [place] [address] 12/25/2024 7:00 AM EST Laboratory Lab Mobile Phlebotomy [facility] [address] [place] [address] Mvmg, Gml Mobile Home Draw [address] [place] [address] 01/01/2025 7:00 AM EST Laboratory Lab Mobile Phlebotomy [facility] [address], [place] [address] Mvmg, Gml Mobile Home Draw [address] [place] [address] 01/08/2025 7:00 AM EST Laboratory Lab Mobile Phlebotomy [facility] [address] [place], [place] [address] Mvmg, Gml Mobile Home Draw [address] [place] [address] 01/13/2025 11:40 AM EST Office Visit Family Medicine [address] [phone] Dhruv Moss MD [address] [place], [place] [address] [address] 01/15/2025 7:00 AM EST Laboratory Lab Mobile Phlebotomy [facility] [address] [place] [address] Mvmg, Gml [facility] Home Draw [address], [place] [address] 01/22/2025 7:00 AM EDT Laboratory Lab Mobile Phlebotomy [facility] [address] [place] [address] Mvmg, Gml Mobile Home Draw [address] [place] [address] 01/29/2025 7:00 AM EDT Laboratory Lab Mobile Phlebotomy [facility] [address] [place] [address] Mvmg, Gml Mobile Home Draw [address] [place] [address] 02/05/2025 7:00 AM EDT Laboratory Lab Mobile Phlebotomy [facility] [address] [place] [address] Mvmg, Gml Mobile Home Draw [address] [place] [address] 02/12/2025 7:00 AM EDT Laboratory Lab Mobile Phlebotomy [facility] [address] [place] [address] Mvmg, Gml Mobile Home Draw [address] [place] [address] 02/19/2025 7:00 AM EDT Laboratory Lab Mobile Phlebotomy [facility] [address] [place] [address] Mvmg, Gml Mobile Home Draw [address] [place] [address] 02/26/2025 7:00 AM EDT Laboratory Lab Mobile Phlebotomy [facility] [address] [place] [address] Mvmg, Gml Mobile Home Draw [address] [place] [address] 03/05/2025 7:00 AM EDT Laboratory Lab Mobile Phlebotomy [facility] [address] [place] [address] Mvmg, Gml Mobile Home Draw [address] [place] [address] 03/12/2025 7:00 AM EDT Laboratory Lab Mobile Phlebotomy [facility] [address] [place] [address] Mvmg, Gml Mobile Home Draw [address] [place] [address] 03/19/2025 7:00 AM EDT Laboratory Lab Mobile Phlebotomy [facility] [address] [place] [address] Mvmg, Gml Mobile Home Draw [address] [place] [address] 03/26/2025 7:00 AM EDT Laboratory Lab Mobile Phlebotomy [facility] [address] [place] [address] Mvmg, Gml Mobile Home Draw [address] [place] [address] 04/02/2025 7:00 AM EDT Laboratory Lab Mobile Phlebotomy [facility] [address] [place] [address] Mvmg, Gml Mobile Home Draw [address] [place] [address] 04/09/2025 7:00 AM EDT Laboratory Lab Mobile Phlebotomy [facility] [address] [place] [address] Mvmg, Gml [facility] Home Draw [address] [place] [address] 04/16/2025 7:00 AM EDT Laboratory Lab Mobile Phlebotomy [facility] [address] [place] [address] Mvmg, Gml [facility] Draw [address] [place] [address] 04/23/2025 7:00 AM EDT Laboratory Lab Mobile Phlebotomy [facility] [address] [place] [address] Mvmg, Gml Mobile [facility] Draw [address] [place] [address] 04/30/2025 7:00 AM EDT Laboratory Lab Mobile Phlebotomy [facility] [address] [place] [address] Mvmg, Gml [facility] Home Draw [address] [place] [address] 05/07/2025 7:00 AM EDT Laboratory Lab Mobile Phlebotomy [facility] [address] [place] [address] Mvmg, Gml Mobile [facility] Draw [address] [place] [address] 05/14/2025 7:00 AM EDT Laboratory Lab Mobile Phlebotomy [facility] [address] [place] [address] Mvmg, Gml Mobile Home Draw [address] [place] [address] 05/21/2025 7:00 AM EDT Laboratory Lab Mobile Phlebotomy [facility] [address] [place] [address] Mvmg, Gml Mobile Home Draw [address] [place] [address] 07/21/2025 1:30 PM EDT Imaging Radiology [address] [place] [address] 08/04/2025 1:20 PM EDT Office Visit Family Medicine [address] [place] [phone] Dhruv Moss MD [address] [place] [address] [place] [address] Health Maintenance Due Date Last Done Comments *BISPHONATE OR OTHER ACCEPTABLE MEDICATION NEEDED FOR OSTEOPOROSIS (REFER TO SMARTSET #1146) 11/06/2023 Colonoscopy 05/06/2024 05/06/2019, 05/06/2019 CKD PHOS USE SMARTSET 77759 06/07/202405/14, 05/31/2023, 05/08/2023, Additional history exists COVID-19 [...] Additional history exists CKD HGB USE SMARTSET 22750 08/28/202508/28, 08/28/2024, 08/21/2024, Additional history exists Diabetic Eye Exam 08/28/2025 08/28/2024, , 08/28/2024, Additional history exists DTap/Tdap Vaccines (3 - Td or Tdap) 11/10/2026 11/10/2016, 03/30/2011 VITAMIN D LEVEL ONCE IN A LIFETIME-USE SMARTSET# 13616 Completed 05/11/2015 RETIRED - COLONOSCOPY-EVERY 5 YRS [...] this encounter Medical Devices Implanted Type Area Financial Coach Device Identifier Shelf Expiration Date Model / Serial / Lot [place] Mri Isp Profile - [id number] Implanted:Qty: 1 on 07/24/2020 by Akash Castillo MD at OR [facility] Right: Chest CR BARD : PERIPHERAL VASCULAR 04/12/2021 [id number] / / [id number] documented as of this encounter Advance Directives [...] Agents on File Name Relationship Healthcare Agent [facility] Juanita Bur Adult Child Health Care Agent Care Teams Oil Well Gun Perforator Operator Relationship Specialty Start Date End Date Dhruv Moss MD [address] [place], [place] [address] [address] PCP - General Family Medicine 08/27/21 documented as of this encounter
--- OUTSIDE RECORDS SUMMARY | 2024-10-10 00:29 | External Medical Summary | Summary of Care ---
Author Name Unknown Organization [facility] [address] [facility] [facility] [address] Phone [phone] Care Team Providers Care Sales Representative Health Insurance Name Role Phone Dhruv Moss MD Primary Care Provide r Reason for Visit * Reason Onset Date Comments Pre Cert/Prior Auth 08/28/2024 Eylea Precert Pending 08/28/2024 17 MELINA MARCELO Encounter Details Date Type Department Care Team (Late st Contact Info) Description 08/28/2024 Telephone Ophthalmology, [facility] [address] [place] [address] Fernando Damon, DO [address] [place] [address] Pre Cert/Prior Auth (Eylea); Precert Pendi... Allergies No known active allergiesdocumented as of [...] for Nausea. 60 Tablet 3 12/09/2021 Active [employer] Verio Flex System w/Device Kit Use as [...] chew 90 Capsule 1 04/01/2024 Active Pen Callicoon 32G X 4 MM Use as directed. Use to inject insulin up to 4 times daily. 400 Each 3 04/05/2024 Active Atorvastatin Calcium 40 MG Oral Tablet (Lipitor)Indications :Dyslipidemia, goal LDL below 70 TAKE ONE TABLET BY MOUTH IN THE MORNING 90 Tablet 2 04/22/2024 Active [employer] In Vitro Strip (Glucose Blood)Indications:Ty pe 2 [...] 24 Hour (Imdur)Indications:C oronary artery disease involving [place] coronary artery of [place] heart without angina pectoris,HTN, goal below [...] 3553 0000 2079 7075 732 / DID: [id number] Matched Unrelated 10/24--- DPB1 Match ABO/Rh: A [...] Thrombocytopenia 12/06/2022 Last Assessment & Plan: Platelets 52854 on 03/20 Questionable hematuria Urinary incontinence 09/12/2022 [...] failure. Does not have any evidence of ffydx-pozghv-emqx disease Last Assessment & Plan: Continues to [...] -continue venlafaxine Coronary artery disease invo lving t[place] river coronary artery of [place] heart without angina pectoris 06/12/2017 Overview: S/P EDIL to LAD on 06/12/17 Last Assessment & Plan: No angina - Continue atorvastatin, isosorbide, metoprolol - no ASA due to thrombocytopenia Dyslipidemia, goal LDL below 70 11/25/2011 Last Assessment & Plan: Patient having no issues. She continues on Lipitor 40 mg daily Last lab I will was that I can find were from [phone] Assessment/plan: Dyslipidemia with patient currently taking Lipitor [...] mRNA, LNP-s, No Pre serve, 2-Dose Series ([employer]) 02/05/2021,01/08/2021 COVID-19, LNP-s, No Preserve , Ye-sucrose, Ages 12+ ([employer]) 12/06/2021 Pneumococcal Conjugate Vacc, 13 Valent (Prevnar) [...] macular edema, unspecified whether mcc insulin use ([facility]) E11.3313 Medication: Eylea Eye Treated: OU Date of office visit: 08/28/24 documented in this encounter Plan of Treatment Upcoming Encounters Date Type Department Care Team (Late st Contact Info) Description 08/29/2024 11:00 AM EDT Home Visit [facility] [address] [facility] [place] [address] Tremaine Morgan PA-C [address] [place] [address] 08/30/2024 2:30 PM EDT Office Visit Pharmacy, [address] [place] [address] [place] [address] 09/04/2024 7:00 AM EDT [facility] [address] [place] [address] [facility] [address] [employer] [place] [address] 09/11/2024 7:00 AM EDT [facility] [address] [facility] [place] [address] [facility] [address] [facility] [place] [address] 09/18/2024 7:00 AM EST [facility] [address] [facility] [place] [address] [facility] [address] [facility] [place] [address] 09/25/2024 7:00 AM EST [facility] [address] [facility] [place] [address] [facility] [address] [facility] [place] [address] 09/30/2024 10:45 AM EST Office Visit Ophthalmology, [facility] [address] [place] [address] Fernando Damon DO [address] [place] [address] 10/02/2024 7:00 AM EST [facility] [address] [facility], [place] [address] [facility] [address] [facility] [place] [address] 10/08/2024 10:00 AM EST Home Visit [facility] [address] [place] [address] Marisa Pacheco, TANYA [address] [place] [address] 10/09/2024 7:00 AM EST [facility] [address] [facility] [place] [address] [facility] [address] [facility] [place] [address] 10/16/2024 7:00 AM EST [facility] [address] [place] [address] [facility] [address] [facility] [place], [place] [address] 10/16/2024 1:45 PM EST Office [facility] [address] [facility] [place] [phone] Jitendra Aguero MD [address] [facility] [place] [address] 2024 7:00 AM EST [facility] [address] [place], [place] [address] [facility] [address] [place] [address] 10/30/2024 7:00 AM EST [facility] [address] [place] [address] [facility] [address] [place] [address] 11/05/2024 7:00 AM EST [facility] [address] [place], [place] [address] [facility] [address] [facility] [place] [address] 11/12/2024 7:00 AM EST [facility] [address] [place] [address] [facility], [facility] [address] [address] 11/20/2024 7:00 AM EST [facility] [address] [place] [address] M[facility] [address] [place] [address] 11/27/2024 7:00 AM EST [facility] [address] [employer] [place] [address] [facility] [address] [place] [address] 12/04/2024 7:00 AM EST [facility] [address] [place] [address] [facility] [address] [place] [address] 12/11/2024 7:00 AM EST [facility] [address] [place] [address] [facility] [address] [place] [address] 12/18/2024 7:00 AM EST [facility] [address] [place], [place] [address] [facility] [address] [facility] [place] [address] 12/24/2024 2:30 PM EST Nurse Only Ancillary [address] [place] [address] [place], Nurse [address] [place] [address] 12/25/2024 7:00 AM EST [facility] [address] [place] [address] [facility] [address] [place] [address] 01/01/2025 7:00 AM EST [facility] [address] [place] [address] [facility] [address] [place] [address] 01/08/2025 7:00 AM EST [facility] [address] [place] [address] [facility] [address] [place] [address] 01/13/2025 11:40 AM EST Office Visit Family Medicine [address] [place] [phone] Dhruv Moss MD [address] [place] [address] [place] [address] 01/15/2025 7:00 AM EST [facility] [address] [place] [address] [facility] [address] [place] [address] 01/22/2025 7:00 AM EDT [facility] [address] [place] [address] [facility] [address] [place] [address] 01/29/2025 7:00 AM EDT [facility] [address] [place] [address] [facility] [address] [place] [address] 02/05/2025 7:00 AM EDT [facility] [address] [place] [address] M[facility] [address] [place] [address] 02/12/2025 7:00 AM EDT [facility] [address] [place] [address] [facility], [facility] [address] [place] [address] 02/19/2025 7:00 AM EDT Laboratory [facility] [address] [place] [address] M[facility] [address] [place] [address] 02/26/2025 7:00 AM EDT Laboratory [facility] [address] [facility] [place] [address] [facility] [address] [facility] [place] [address] 03/05/2025 7:00 AM EDT Laboratory [facility] [address] [facility] [place] [address] [facility] [address] [facility] [place] [address] 03/12/2025 7:00 AM EDT Laboratory [facility] [address] [facility] [place] [address] M[facility], [facility] [address] [facility] [place] [address] 03/19/2025 7:00 AM EDT Laboratory [facility] [address] [place] [address] M[facility], [facility] [address] [place] [address] 03/26/2025 7:00 AM EDT Laboratory [facility] [address] [place] [address] M[facility] [address] [facility] [place] [address] 04/02/2025 7:00 AM EDT Laboratory [facility] [address] [place] [address] [facility] [address] [place] [address] 04/09/2025 7:00 AM EDT Laboratory [facility] [address] [facility] [place] [address] [facility], [facility] [address] [facility] [place] [address] 04/16/2025 7:00 AM EDT [facility] [address] [place] [address] [facility], [facility] [address] [facility] [place] [address] 04/23/2025 7:00 AM EDT Laboratory [facility] [address] [place], [place] [address] [facility] [address] [facility] [place] [address] 04/30/2025 7:00 AM EDT Laboratory [facility] [address] [place] [address] [facility], [facility] [address] [place] [address] 05/07/2025 7:00 AM EDT Laboratory [facility] [address] [place] [address] [facility] [address] [place] [address] 05/14/2025 7:00 AM EDT Laboratory [facility] [address] [place] [address] [facility] [address] [place] [address] 05/21/2025 7:00 AM EDT Laboratory [facility] [address] [place] [address] [facility], [facility] [address] [place] [address] 07/21/2025 1:30 PM EDT Imaging Radiology [address] [place] [address] 08/04/2025 1:20 PM EDT Office Visit Family Medicine [address] [place] [address] Dhruv Moss MD [address] [place] [address] [place] [address] Health Maintenance Due Date Last Done Comments *BISPHONATE OR OTHER ACCEPTABLE MEDICATION NEEDED FOR OSTEOPOROSIS (REFER TO SMARTSET #1146) 11/06/2023 Colonoscopy 05/06/2024 05/06/2019, 05/06/2019 CKD PHOS USE SMARTSET 36983 06/07/202405/14, 05/31/2023, 05/08/2023, Additional history exists COVID-19 [...] Additional history exists CKD HGB USE SMARTSET 16203 08/28/202508/28, 08/28/2024, 08/21/2024, Additional history exists Diabetic Eye Exam 08/28/2025 08/28/2024, , 08/28/2024, Additional history exists DTap/Tdap Vaccines (3 - Td or Tdap) 11/10/2026 11/10/2016, 03/30/2011 VITAMIN D LEVEL ONCE IN A LIFETIME-USE SMARTSET# 85999 Completed 05/11/2015 RETIRED - COLONOSCOPY-EVERY 5 YRS [...] this encounter Medical Devices Implanted Type Area Slurry Mixer Device Identifier Shelf Expiration Date Model / Serial / Lot Port Pwr Mri Isp Profile - [id number] Implanted:Qty: 1 on 07/24/2020 by Akash Castillo MD at OR [facility] Right: Chest CR BARD : PERIPHERAL VASCULAR 04/12/2021 [id number] / / [id number] documented as of this encounter Advance Directives [...] Child Health Care Agent Care Teams Sales Representative Health Insurance Relationship Specialty Start Date End Date Dhruv Moss MD [address] [place] [id number] PCP - General Family Medicine 08/27/21 documented as of this encounter
[2024-10-10] MEDS: PANTOprazole 40 MG/10 ML SYR IV SCH (00:30)
--- OUTSIDE RECORDS SUMMARY | 2024-10-10 00:30 | External Medical Summary | Summary of Care ---
Author Name Unknown Organization [facility] Address [address] [address] Phone [phone] Care Team Providers Care Group Product Manager Name Role Phone Dhruv Moss MD Primary Care Provide r Reason for Visit * Reason Onset Date Comments Test Results 08/29/2024 Encounter Details Date Type Department Care Team (Late st Contact Info) Description 08/29/2024 Telephone Hematology/Oncology [facility] [address] [place] [phone] Jitendra Aguero MD [address] [place] [address] Test Results Allergies No known active allergiesdocumented [...] for Nausea. 60 Tablet 3 12/09/2021 Active VasonomicsTouch Verio Flex System w/Device Kit Use as [...] chew 90 Capsule 1 04/01/2024 Active Pen Hollister 32G X 4 MM Use as directed. 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 Does not have any evidence of ffrly-hjytpa-aslf disease Last Assessment & Plan: Continues to [...] -continue venlafaxine Coronary artery disease invo lving [place] coronary artery of [place] heart without angina pectoris 06/12/2017 Overview: S/P EDIL to LAD on 06/12/17 Last Assessment & Plan: No angina - Continue atorvastatin, isosorbide, metoprolol - no ASA due to thrombocytopenia Dyslipidemia, goal LDL below 70 11/25/2011 Last Assessment & Plan: Patient having no issues. She continues on Lipitor 40 mg daily Last lab I will was that I can find were from [phone] Assessment/plan: Dyslipidemia with patient currently taking Lipitor [...] No 08/13/2024 Does the household have a karmanos cancer centerr source of income? (Household - for ages [...] Telephone Encounter - Makenzie Barth LPN - 08/29/2024 7:55 AM EDT Called and spoke with patient's spouse Roberto, made him aware patient will need transfusions today.He verbalized understanding and states they are agreeable to the 11:00 am transfusion time at [facility].He denies any questions or concerns at this time. Patient to receive 1 unit prbc and 1 unit of platelets. Called [facility] blood bank. Spoke with Kaleb. Spoke with Dona in [facility]. Spoke with Nazia Called [facility] central scheduling. Patient scheduled for Today at 11:00 am. Patient's spouse, Roberto verbalized understanding of appt time. Faxed order to [facility]/ blood bank. * Telephone Encounter - Makenzie Barth LPN - 08/29/2024 7:44 AM EDT ----- Message from Jitendra Aguero MD sent at 08/29/2024 6:42 AM EDT ----- Blood workup done on 08/28/2024: - WBC 15,300, H&H of 7.12/04, platelet count of 3000. Would like to transfuse one unit of PRBC and one bag of platelet at [facility]. documented in this encounter Plan of Treatment Upcoming Encounters Date Type Department Care Team (Late st Contact Info) Description 08/29/2024 11:00 AM EDT Home Visit [facility] at [place], [facility] [address] [place] [address] Tremaine Morgan PA-C [address] [place] [address] 08/30/2024 2:30 PM EDT Office Visit Pharmacy, [address] [place] [address] [place] [address] 09/04/2024 7:00 AM EDT [facility] [address] [place] [address] [facility] [address] [place], [place] [address] 09/11/2024 7:00 AM EDT [facility] [address] [place] [address] [facility] [address] [place], [place] [address] 09/18/2024 7:00 AM EST [facility] [address] [place], [place] [address] [facility] [address] [place] [address] 09/25/2024 7:00 AM EST [facility] [address] [place], [place] [address] [facility] [address] [place] [address] 09/30/2024 10:45 AM EST Office Visit Ophthalmology, [facility] [address] [place] [address] Fernando Damon, [address] [place] [address] 10/02/2024 7:00 AM EST [facility] [address] [place] [address] [facility] [address] [employer] [address] 10/08/2024 10:00 AM EST [facility] Visit [facility], [facility] [address] [place] [address] Marisa Pacheco, TANYA [address] [place] [address] 10/09/2024 7:00 AM EST [facility] [address] [place] [address] [facility] [address] [place] [address] 10/16/2024 7:00 AM EST [facility] [address] [employer] [address] [facility] [address] [place], [place] [address] 10/16/2024 1:45 PM EST Office Visit Hematology/Oncology [facility] [place] [address] [facility] [place], [place] [phone] Jitendra Aguero MD [address] [place] [address] 2024 7:00 AM EST [facility] [address] [place] [address] [facility] [address] [place] [address] 10/30/2024 7:00 AM EST [facility] [address] [place] [address] [facility] [address] [place] [address] 11/05/2024 7:00 AM EST [facility] [address] [employer], [place] [address] [facility] [address] [place] [address] 11/12/2024 7:00 AM EST [facility] [address] [place] [facility] [address] [facility] [address] [place] [address] 11/20/2024 7:00 AM EST [facility] [address] [place] [address] [facility] [address] [place] [facility] [address] 11/27/2024 7:00 AM EST [facility] [address] [place] [address] [facility] [address] [place] [address] 12/04/2024 7:00 AM EST [facility] [address] [facility] [address] [facility] [address] [place] [address] 12/11/2024 7:00 AM EST [facility] [address] [place] [address] [facility] [address] [place] [address] 12/18/2024 7:00 AM EST [facility] [address] [facility] [address] [facility] [address] [facility] [address] 12/24/2024 2:30 PM EST Nurse Only Ancillary [address] [place] [address] [place], Nurse [address] [place] [address] 12/25/2024 7:00 AM EST [facility] [address] [place] [address] [facility] [address] [place] [address] 01/01/2025 7:00 AM EST [facility] [address] [place], [place] [address] [facility] [address] [place] [address] 01/08/2025 7:00 AM EST [facility] [address] [place], [place] [address] [facility] [address] [facility] [place], [place] [address] 01/13/2025 11:40 AM EST Office Visit Family [address] [phone] Dhruv Moss MD [address] [place] [address] [place] [address] 01/15/2025 7:00 AM EST [facility] [address] [place], [place] [address] [facility] [address] [place], [place] [address] 01/22/2025 7:00 AM EDT [facility] [address] [place] [address] [facility] [address] [facility] [place] [address] 01/29/2025 7:00 AM EDT [facility] [address] [place] [address] [facility] [address] [place] [address] 02/05/2025 7:00 AM EDT [facility] [address] [place] [address] [facility] [address] [place] [address] 02/12/2025 7:00 AM EDT [facility] [address] [place] [address] [facility] [address] [place] [address] 02/19/2025 7:00 AM EDT [facility] [address] [place] [address] [facility] [address] [place] [address] 02/26/2025 7:00 AM EDT [facility] [address] [place] [address] [facility] [address] [place] [address] 03/05/2025 7:00 AM EDT Laboratory [facility] [address] [place] [address] [facility] [address] [place] [address] 03/12/2025 7:00 AM EDT [facility] [address] [place] [address] [facility] [address] [place] [address] 03/19/2025 7:00 AM EDT Laboratory [facility] [address] [facility] [place] [address] [facility] [address] [place] [address] 03/26/2025 7:00 AM EDT [facility] [address] [place] [address] [facility] [address] [place] [address] 04/02/2025 7:00 AM EDT [facility] [address] [place] [address] [facility] [address] [place] [address] 04/09/2025 7:00 AM EDT [facility] [address] [facility] [address] [facility] [address] [facility] [place] [address] 04/16/2025 7:00 AM EDT [facility] [address] [place] [address] [facility] [address] [place] [address] 04/23/2025 7:00 AM EDT [facility] [address] [facility] [address] [facility] [address] [place] [address] 04/30/2025 7:00 AM EDT [facility] [address] [place] [address] [facility] [address] [place] [address] 05/07/2025 7:00 AM EDT Laboratory [facility] [address] [facility] [address] [facility] [address] [place] [address] 05/14/2025 7:00 AM EDT [facility] [address] [place] [address] [facility] [address] [place] [place] [address] 05/21/2025 7:00 AM EDT Laboratory [facility] [address] [facility] [place] [address] [facility] [address] [facility] [place] [address] 07/21/2025 1:30 PM EDT Imaging Radiology [address] [place] [address] 08/04/2025 1:20 PM EDT Office Visit Family Medicine [address] [place] [phone] Dhruv Moss MD [address] [place] [address] [place] [address] Health Maintenance Due Date Last Done Comments *BISPHONATE OR OTHER ACCEPTABLE MEDICATION NEEDED FOR OSTEOPOROSIS (REFER TO SMARTSET #1146) 11/06/2023 Colonoscopy 05/06/2024 05/06/2019, 05/06/2019 CKD PHOS USE SMARTSET 44453 06/07/202405/14, 05/31/2023, 05/08/2023, Additional history exists COVID-19 [...] Additional history exists CKD HGB USE SMARTSET 01866 08/28/202508/28, 08/28/2024, 08/21/2024, Additional history exists Diabetic Eye Exam 08/28/2025 08/28/2024, , 08/28/2024, Additional history exists DTap/Tdap Vaccines (3 - Td or Tdap) 11/10/2026 11/10/2016, 03/30/2011 VITAMIN D LEVEL ONCE IN A LIFETIME-USE SMARTSET# 69926 Completed 05/11/2015 RETIRED - COLONOSCOPY-EVERY 5 YRS [...] this encounter Medical Devices Implanted Type Area Band Tacker Device Identifier Shelf Expiration Date Model / Serial / Lot Port Pwr Mri Isp Profile - [id number] Implanted:Qty: 1 on 07/24/2020 by Akash Castillo MD at OR [facility] Right: Chest CR BARD : PERIPHERAL VASCULAR 04/12/2021 [id number] / / [id number] documented as of this encounter Advance Directives [...] Agents on File Name Relationship Healthcare Agent [facility] Juanita Silva Adult Child Health Care Agent Care Teams Group Product Manager Relationship Specialty Start Date End Date Dhruv Moss MD [address] [place] [id number] PCP - General Family Medicine 08/27/21 documented as of this encounter
--- OUTSIDE RECORDS SUMMARY | 2024-10-10 00:30 | External Medical Summary | Summary of Care ---
Author Name Unknown Organization [facility] Address [address] [facility] [place] [address] Phone [phone] Care Team Providers Care Supervisor Of Guidance And Testing Name Role Phone Dhruv Moss MD Primary Care Provide r Reason for Visit * Reason Onset Date Comments Medication Pre-auth 08/28/2024 Encounter Details Date Type Department Care Team (Late st Contact Info) Description 08/28/2024 Telephone Ophthalmology, [facility] [address] [place] [address] Fernando Damon, [address] [place] [address] Medication Pre-auth Allergies No known active allergiesdocumented as of [...] for Nausea. 60 Tablet 3 12/09/2021 Active BeyondCoreTouch Verio Flex System w/Device Kit Use as [...] chew 90 Capsule 1 04/01/2024 Active Pen [facility] 32G X 4 MM Use as directed. 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 Does not have any evidence of xkdbp-gzjehq-dvjk disease Last Assessment & Plan: Continues to [...] -continue venlafaxine Coronary artery disease invo lving [place] coronary artery of [place] heart without angina pectoris 06/12/2017 Overview: S/P EDIL to LAD on 06/12/17 Last Assessment & Plan: No angina - Continue atorvastatin, isosorbide, metoprolol - no ASA due to thrombocytopenia Dyslipidemia, goal LDL below 70 11/25/2011 Last Assessment & Plan: Patient having no issues. She continues on Lipitor 40 mg daily Last lab I will was that I can find were from [id number] Assessment/plan: Dyslipidemia with patient currently taking Lipitor [...] mRNA, LNP-s, No Pre serve, 2-Dose Series ([employer]) 02/05/2021,01/08/2021 COVID-19, LNP-s, No Preserve , Ye-sucrose, [...] No 08/13/2024 Does the household have a [facility] source [facility] income? (Household - [...] ofboth eyes and macular edema, unspecified whether fpc insulin use ([facility]) E11.3313 Medication: Eylea Eye Treated: OU Date of office visit: 08/28/24 documented in this encounter Plan of Treatment Upcoming Encounters Date Type Department Care Team (Late st Contact Info) Description 08/29/2024 11:00 AM EDT Home Visit [facility] [address] [place] [address] Tremaine Morgan PA-C [address] [place] [address] 08/30/2024 2:30 PM EDT Office Visit Pharmacy, [address] [place] [address] [place] [address] 09/04/2024 7:00 AM EDT [facility] [address] [place] [address] [address] [facility] [address] [place] [address] [address] 09/11/2024 7:00 AM EDT [facility] [address] [place] [address] [facility] [address] [place], [place] [address] 09/18/2024 7:00 AM EST [facility] [address] [place], [place] [address] [facility] [address] [facility] [place] [address] 09/25/2024 7:00 AM EST [facility] [address] [facility] [place] [address] [facility] [address] [facility] [place] [address] 09/30/2024 10:45 AM EST Office Visit Ophthalmology, [facility] [address] [facility] [place] [address] Fernando Damon DO [facility] [address] 10/02/2024 7:00 AM EST [facility] [address] [facility] [place], [place] [address] [facility] [place], [place] [address] 10/08/2024 10:00 AM EST Home Visit [facility] [address] [facility] [place] [address] Marisa Pacheco, TANYA 132 [facility] [place] [address] 10/09/2024 7:00 AM EST [facility] [address] [place], [place] [address] [facility] [address] [facility] [place], [place] [address] 10/16/2024 7:00 AM EST [facility] [address] [place], [place] [address] [facility] [address] [place] [address] 10/16/2024 1:45 PM EST Office Visit Hematology/Oncology [facility] [place] [address] [place] [phone] Jitendra Aguero MD 200 [facility] [place] [address] 2024 7:00 AM EST [facility] [address] [facility] [place] [address] [facility] [address] [facility] [place] [address] 10/30/2024 7:00 AM EST [facility] [address] [employer] [facility] [place] [address] [facility] [address] [place] [address] 11/05/2024 7:00 AM EST [facility] [address] [place] [address] [facility] [address] [facility] [place] [address] 11/12/2024 7:00 AM EST [facility] [address] [place] [address] [facility] [address] [place] [address] 11/20/2024 7:00 AM EST [facility] [address] [place] [address] [facility] [address] [facility] [place] [address] 11/27/2024 7:00 AM EST [facility] [address] [place] [address] [facility] [address] [place] [address] 12/04/2024 7:00 AM EST [facility] [address] [place] [address] [facility] [address] [place] [address] 12/11/2024 7:00 AM EST [facility] [address] [place], [place] [address] [facility] [address] [place] [address] 12/18/2024 7:00 AM EST [facility] [address], [place] [address] [facility] [address], [place] [address] 12/24/2024 2:30 PM EST Nurse Only Ancillary [address] [place] [address] [place], Nurse Annual [address] [place] [address] 12/25/2024 7:00 AM EST [facility] [address] [place], [place] [address] [facility] [address] [place] [address] 01/01/2025 7:00 AM EST [facility] [address] [place] [address] [facility] [address] [place] [address] 01/08/2025 7:00 AM EST [facility] [address] [place] [address] [facility] [address] [place] [address] 01/13/2025 11:40 AM EST Office Visit Family Medicine [address] [place] [phone] Dhruv Moss MD [address] [place] [address] [place] [address] 01/15/2025 7:00 AM EST [facility] [address] [employer] [place] [address] [facility] [address] [place] [address] 01/22/2025 7:00 AM EDT [facility] [address] [employer] [place] [address] [facility] [address] [address] 01/29/2025 7:00 AM EDT [facility] [address] [place] [address] [facility] [address] [address] 02/05/2025 7:00 AM EDT [facility] [address] [address] [facility] [address] [address] 02/12/2025 7:00 AM EDT [facility] [address] [place] [address] [facility] [address] [place] [address] 02/19/2025 7:00 AM EDT [facility] [address] [place] [address] [facility] [address] [address] 02/26/2025 7:00 AM EDT [facility] [address] [place] [address] [facility] [address] [facility] [place] [address] 03/05/2025 7:00 AM EDT [facility] [address] [facility] [place] [address] [facility] [address] [facility] [place] [address] 03/12/2025 7:00 AM EDT [facility] [address] [place] [address] [facility] [address] [facility] [place] [address] 03/19/2025 7:00 AM EDT [facility] [address] [place] [address] [facility] [address] [facility] [place] [address] 03/26/2025 7:00 AM EDT [facility] [address] [place] [address] [facility] [address] [facility] [place] [address] 04/02/2025 7:00 AM EDT [facility] [address] [facility] [place] [address] [facility] [address] [place] [address] 04/09/2025 7:00 AM EDT [facility] [address] [facility] [place] [address] [facility] [address] [facility] [place] [address] 04/16/2025 7:00 AM EDT [facility] [address] [place] [address] [facility] [address] [place] [address] 04/23/2025 7:00 AM EDT [facility] [address] [place] [address] [facility] [address] [facility] [place] [address] 04/30/2025 7:00 AM EDT [facility] [address] [place] [address] [facility] [address] [place] [address] 05/07/2025 7:00 AM EDT [facility] [address] [place] [address] [facility] [address] [facility] [place] [address] 05/14/2025 7:00 AM EDT [facility] [address] [place] [address] [facility] [address] [facility] [place] [address] 05/21/2025 7:00 AM EDT [facility] [address] [place] [address] [facility] [address] [facility] [place] [address] 07/21/2025 1:30 PM EDT Imaging Radiology [address] [place] [address] 08/04/2025 1:20 PM EDT Office Visit Family Medicine [address] [place] [phone] Dhruv Moss MD [address] [place] [address] [place] [address] Health Maintenance Due Date Last Done Comments *BISPHONATE OR OTHER ACCEPTABLE MEDICATION NEEDED FOR OSTEOPOROSIS (REFER TO SMARTSET #1146) 11/06/2023 Colonoscopy 05/06/2024 05/06/2019, 05/06/2019 CKD PHOS USE SMARTSET 28316 06/07/202405/14, 05/31/2023, 05/08/2023, Additional history exists COVID-19 [...] Additional history exists CKD HGB USE SMARTSET 12338 08/28/202508/28, 08/28/2024, 08/21/2024, Additional history exists Diabetic Eye Exam 08/28/2025 08/28/2024, , 08/28/2024, Additional history exists DTap/Tdap Vaccines (3 - Td or Tdap) 11/10/2026 11/10/2016, 03/30/2011 VITAMIN D LEVEL ONCE IN A LIFETIME-USE SMARTSET# [id number] Completed 05/11/2015 RETIRED - COLONOSCOPY-EVERY 5 YRS [...] this encounter Medical Devices Implanted Type Area Insurance Claims Supervisor Device Identifier Shelf Expiration Date Model / Serial / Lot Port Pwr Mri Isp Profile - [id number] Implanted:Qty: 1 on 07/24/2020 by Akash Castillo MD at OR [facility] Right: Chest CR BARD : PERIPHERAL VASCULAR 04/12/2021 [id number] / / [id number] documented as of this encounter Advance Directives [...] Child Health Care Agent Care Teams Supervisor Of Guidance And Testing Relationship Specialty Start Date End Date Dhruv Moss MD [address] [place] [address] [place] [address] PCP - General Family Medicine 08/27/21 documented as of this encounter
--- OUTSIDE RECORDS SUMMARY | 2024-10-10 00:30 | External Medical Summary | Summary of Care ---
Author Name Unknown Organization [facility] Address [address] [facility] [place] [address] Phone [phone] Care Team Providers Care Accounting Teacher Name Role Phone Dhruv Moss MD Primary Care Provide r Reason for Visit * Reason Onset Date Comments Pre Cert/Prior Auth 08/28/2024 Eylea Encounter Details Date Type Department Care Team (Late st Contact Info) Description 08/28/2024 Telephone Ophthalmology, [facility] [address] [place] [address] Fernando Damon, [address] [facility] [place] [address] Pre Cert/Prior Auth (Eylea) Allergies No known [...] chew 90 Capsule 1 04/01/2024 Active Pen [place] 32G X 4 MM Use as directed. Use to inject insulin up to 4 times daily. 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 Does not have any evidence of tijvo-hwnhcy-uzjc disease Last Assessment & Plan: Continues to [...] was that I can find were from [id number] Assessment/plan: Dyslipidemia with patient currently taking Lipitor [...] mRNA, LNP-s, No Pre serve, 2-Dose Series (Mofibo) 02/05/2021,01/08/2021 COVID-19, LNP-s, No Preserve , Ye-sucrose, [...] ofboth eyes and macular edema, unspecified whether halfway insulin use ([facility]) E11.3313 Medication: Eylea Eye Treated: OU Date of office visit: 08/28/24 documented in this encounter Plan of Treatment Upcoming Encounters Date Type Department Care Team (Late st Contact Info) Description 08/29/2024 11:00 AM EDT Home Visit [facility] [address] [place] [address] Tremaine Morgan PA-C [address] [place] [address] 08/30/2024 2:30 PM EDT Office Visit Pharmacy, [address] [place] [address] [place] [address] 09/04/2024 7:00 AM EDT Laboratory [facility] [address] [place] [address] [facility] [address] [place] [address] 09/11/2024 7:00 AM EDT [facility] [address] [place] [address] [facility] [address] [facility] [place] [address] 09/18/2024 7:00 AM EST [facility] [address] [facility] [place] [address] [facility] [address] [facility] [place] [address] 09/25/2024 7:00 AM EST [facility] [address] [place] [address] [facility] [address] [place] [address] 09/30/2024 10:45 AM EST Office Visit Ophthalmology, [facility] [address] [facility] [place] [address] Fernando Damon [facility] [address] 10/02/2024 7:00 AM EST Laboratory [facility] [address] [place] [address] [facility] [address] [place] [address] 10/08/2024 10:00 AM EST Home Visit [facility] [address] [facility] [place] [address] Marisa Pacheco, TANYA [facility] [place] [address] 10/09/2024 7:00 AM EST [facility] [address] [place] [address] [facility] [address] [facility] [place] [address] 10/16/2024 7:00 AM EST [facility] [address] [place] [address] [facility] [address] [place] [address] 10/16/2024 1:45 PM EST [facility] [place] [address] [facility] [place], [place] [phone] Jitendra Aguero MD [address] [place] [address] 2024 7:00 AM EST [facility] [address] [place], [place] [address] [facility] [address] [place], [place] [address] 10/30/2024 7:00 AM EST [facility] [address] [place], [place] [address] [facility] [address] [place], [place] [address] 11/05/2024 7:00 AM EST [facility] [address] [place] [address] [facility] [address] [place], [place] [address] 11/12/2024 7:00 AM EST [facility] [address] [place], [place] [address] [facility] [address] [place] [address] 11/20/2024 7:00 AM EST [facility] [address] [place] [address] [facility] [address] [place] [address] 11/27/2024 7:00 AM EST [facility] [address] [place], [place] [address] [facility] [address] [place] [address] 12/04/2024 7:00 AM EST [facility] [address] [place] [address] [facility] [address] [place] [address] 12/11/2024 7:00 AM EST [facility] [address] [place] [address] [facility] [address] [facility] [place] [address] 12/18/2024 7:00 AM EST [facility] [address] [place] [address] [facility] [address] [place] [address] 12/24/2024 2:30 PM EST Nurse Only Ancillary [address] [place] [address] [place], Nurse [address] [place] [address] 12/25/2024 7:00 AM EST [facility] [address] [place] [address] [facility] [address] [place] [address] 01/01/2025 7:00 AM EST [facility] [address] [place] [address] [facility] [address] [place] [address] 01/08/2025 7:00 AM EST [facility] [address] [place] [address] [facility] [address] [place] [address] 01/13/2025 11:40 AM EST Office Visit Family [address] [place] [phone] Dhruv Moss MD [address] [place] [address] [place] [address] 01/15/2025 7:00 AM EST [facility] [address] [place] [address] [facility] [address] [place] [address] 01/22/2025 7:00 AM EDT [facility] [address] [place] [address] [facility] [address] [place] [address] 01/29/2025 7:00 AM EDT [facility] [address] [place] [address] [facility] [address] [place] [address] 02/05/2025 7:00 AM EDT Laboratory [facility] [address] [place] [address] [facility] [address] [place] [address] 02/12/2025 7:00 AM EDT Laboratory [facility] [address] [place] [address] [facility] [address] [place] [address] 02/19/2025 7:00 AM EDT Laboratory [facility] [address] [place] [address] [facility] [address] [place] [address] 02/26/2025 7:00 AM EDT Laboratory [facility] [address] [place] [address] [facility] [address] [facility] [place] [address] 03/05/2025 7:00 AM EDT Laboratory [facility] [address] [place] [address] M[facility] [address] [place] [address] 03/12/2025 7:00 AM EDT Laboratory [facility] [address] [place] [address] [facility] [address] [place] [address] 03/19/2025 7:00 AM EDT Laboratory [facility] [address] [facility] [place] [address] [facility] [address] [place] [address] 03/26/2025 7:00 AM EDT Laboratory [facility] [address] [facility] [place] [address] [facility] [address] [place] [address] 04/02/2025 7:00 AM EDT Laboratory [facility] [address] [place] [address] [facility] [address] [place] [address] 04/09/2025 7:00 AM EDT Laboratory [facility] [address] [facility] [place] [address] [facility] [address] [place] [address] 04/16/2025 7:00 AM EDT Laboratory [facility] [address] [facility] [place] [address] [facility], [facility] [address] [place] [address] 04/23/2025 7:00 AM EDT Laboratory [facility] [address] [place] [address] [facility] [address] [place] [address] 04/30/2025 7:00 AM EDT Laboratory [facility] [address] [place] [address] [facility] [address] [place] [address] 05/07/2025 7:00 AM EDT Laboratory [facility] [address] [place] [address] [facility] [address] [place] [address] 05/14/2025 7:00 AM EDT Laboratory [facility] [address] [place] [address] [facility], [facility] [address] [place] [address] 05/21/2025 7:00 AM EDT Laboratory [facility] [address] [place] [address] [facility] [address] [place] [address] 07/21/2025 1:30 PM EDT Imaging Radiology [address] [place] [address] 08/04/2025 1:20 PM EDT Office Visit Family Medicine [address] [place] [phone] Dhruv Moss MD [address] [place] [address] [place] [address] Health Maintenance Due Date Last Done Comments *BISPHONATE OR OTHER ACCEPTABLE MEDICATION NEEDED FOR OSTEOPOROSIS (REFER TO SMARTSET #1146) 11/06/2023 Colonoscopy 05/06/2024 05/06/2019, 05/06/2019 CKD PHOS USE SMARTSET 47581 06/07/2024 07/2 04/2023, 05/31/2023, 05/08/2023, Additional history [...] Additional history exists CKD HGB USE SMARTSET 61092 08/28/202508/28, 08/28/2024, 08/21/2024, Additional history exists Diabetic Eye Exam 08/28/2025 08/28/2024, , 08/28/2024, Additional history exists DTap/Tdap Vaccines (3 - Td or Tdap) 11/10/2026 11/10/2016, 03/30/2011 VITAMIN D LEVEL ONCE IN A LIFETIME-USE SMARTSET# 52409 Completed 05/11/2015 RETIRED - COLONOSCOPY-EVERY 5 YRS [...] this encounter Medical Devices Implanted Type Area Barrel Tester Device Identifier Shelf Expiration Date Model / Serial / Lot Port Pwr Mri Isp Profile - [id number] Implanted:Qty: 1 on 07/24/2020 by Akash Castillo MD at OR [facility] Right: Chest CR BARD : PERIPHERAL VASCULAR 04/12/2021 [id number] / / [id number] documented as of this encounter Advance Directives [...] Agents on File Name Relationship Healthcare Agent [facility] p Communication Juanita Dalton Adult Child Health Care Agent Care Teams Accounting Teacher Relationship Specialty Start Date End Date Dhruv Moss MD [address] [place] [address] [place] [address] PCP - General Family Medicine 08/27/21 documented as of this encounter
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
--- OUTSIDE RECORDS SUMMARY | 2024-10-10 00:30 | External Medical Summary | Summary of Care ---
Author Name Unknown Organization [facility] [address] [facility] [address] Phone [phone] Care Team Providers Care Wet Process Head Miller Name Role Phone Dhruv Moss MD Primary Care Provide r Encounter Details Date Type Department Care Team (Late st Contact Info) Description 08/27/2024 Population Health External Data Unspecified Department Allergies [...] hemoglobin A1c goal of less than 8.0% ([facility]) Inject 8 units with breakfast, [...] chew 90 Capsule 1 04/01/2024 Active Pen [place] 32G X 4 MM Use as directed. 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 Does not have any evidence of [id number] disease Last Assessment & Plan: Continues to [...] was that I can find were from [id number] Assessment/plan: Dyslipidemia with patient currently taking Lipitor [...] mRNA, LNP-s, No Pre serve, 2-Dose Series ([employer]) 02/05/2021,01/08/2021 COVID-19, LNP-s, No Preserve , [...] Description 08/29/2024 11:00 AM EDT [facility], [facility] [address] [place] [address] Tremaine Morgan PA-C [address] [place] [address] 08/30/2024 2:30 PM EDT Office Visit Pharmacy, [address] [place] [address] [place] [address] 09/04/2024 7:00 AM EDT [facility] [address] [place] [address] [facility] [address] [place], [place] [address] 09/11/2024 7:00 AM EDT [facility] [address] [place] [address] [facility] [address] [place], [place] [address] 09/18/2024 7:00 AM EST [facility] [address] [place], [place] [address] [facility] [address] [place], [place] [address] 09/25/2024 7:00 AM EST [facility] [address] [place], [place] [address] [facility] [address] [place], [place] [address] 09/30/2024 10:45 AM EST Office Visit Ophthalmology, [facility] [address] [place] [address] Fernando Damon, [address] [place] [address] 10/02/2024 7:00 AM EST [facility] [address] [place] [address] [facility] [address] [place] [address] 10/08/2024 10:00 AM EST Home Visit [facility] [place], [facility] [address] [facility] [place] [address] Marisa Pacheco, TANYA 132 [facility] [place] [address] 10/09/2024 7:00 AM EST Laboratory [facility] [address] [place] [address] [facility] [address] [facility] [place] [address] 10/16/2024 7:00 AM EST [facility] [address] [place] [address] [facility] [place] [address] 10/16/2024 1:45 PM EST Office Visit Hematology/Oncology [facility] [place] [address] [facility] [place], [place] [phone] Jitendra Aguero MD [address] [facility], [place] [address] 2024 7:00 AM EST Laboratory [facility] [address] [place] [address] [facility] [address] [facility] [place], [place] [address] 10/30/2024 7:00 AM EST [facility] [address] [place] [address] [facility] [address] [facility] [place] [address] 11/05/2024 7:00 AM EST [facility] [address] [facility] [place] [address] [facility] [address] [facility] [place] [address] 11/12/2024 7:00 AM EST [facility] [address] [facility] [place] [address] [facility] [address] [facility] [place] [address] 11/20/2024 7:00 AM EST [facility] [address] [facility] [place] [address] [facility] [address] [facility] [place] [address] 11/27/2024 7:00 AM EST [facility] [address] [facility] [place] [address] [facility] [address] [facility] [place] [address] 12/04/2024 7:00 AM EST [facility] [address] [facility] [place] [address] [facility] [address] [facility] [place] [address] 12/11/2024 7:00 AM EST [facility] [address] [facility] [place] [address] [facility] [address] [facility] [place] [address] 12/18/2024 7:00 AM EST [facility] [address] [facility] [place] [address] [facility] [address] [facility] [place] [address] 12/24/2024 2:30 PM EST Nurse Only Ancillary [address] [place] [address] [place], Nurse Annual [address] [place] [address] 12/25/2024 7:00 AM EST [facility] [address] [place] [address] [facility] [address], [place] [address] 01/01/2025 7:00 AM EST [facility] [address] [place] [address] [facility] [address] [place] [address] 01/08/2025 7:00 AM EST [facility] [address] [place] [address] [address] [facility] [address] [place] [address] 01/13/2025 11:40 AM EST Office Visit Family Medicine [address] [place] [phone] Dhruv Moss MD [address] [place] [address] [place] [address] 01/15/2025 7:00 AM EST [facility] [address] [place], [place] [address] [facility] [address] [place] [address] 01/22/2025 7:00 AM EDT [facility] [address] [place] [address] [facility] [address] [place] [address] 01/29/2025 7:00 AM EDT [facility] [address] [place] [address] [facility] [address] [place] [address] 02/05/2025 7:00 AM EDT [facility] [address] [place] [address] [facility] [address] [place] [address] 02/12/2025 7:00 AM EDT Laboratory [facility] [address] [facility] [place] [address] [facility] [address] [facility] [place] [address] 02/19/2025 7:00 AM EDT Laboratory [facility] [address] [place] [address] [facility] [address] [facility] [place] [address] 02/26/2025 7:00 AM EDT [facility] [address] [place] [address] [facility] [address] [facility] [place] [address] 03/05/2025 7:00 AM EDT [facility] [address] [place] [address] [facility] [address] [facility] [place] [address] 03/12/2025 7:00 AM EDT [facility] [address] [place] [address] [facility] [address] [place] [address] 03/19/2025 7:00 AM EDT [facility] [address] [facility] [place] [address] [facility] [address] [place] [address] 03/26/2025 7:00 AM EDT [facility] [address] [facility] [place] [address] [facility] [address] [place] [address] 04/02/2025 7:00 AM EDT Laboratory [facility] [address] [employer] [address] [facility] [address] [facility] [place] [address] 04/09/2025 7:00 AM EDT [facility] [address] [place] [address] [facility] [address] [facility] [place] [address] 04/16/2025 7:00 AM EDT [facility] [address] [employer] [address] [facility] [address] [facility] [place] [address] 04/23/2025 7:00 AM EDT [facility] [address] [facility] [place] [address] [facility] [address] [place] [address] 04/30/2025 7:00 AM EDT [facility] [address] [place] [address] [facility] [address] [facility] [place] [address] 05/07/2025 7:00 AM EDT [facility] [address] [facility] [place] [address] [facility] [address] [place] [address] 05/14/2025 7:00 AM EDT Laboratory [facility] [address] [facility] [place] [address] [facility] [address] [facility] [place] [address] 05/21/2025 7:00 AM EDT Laboratory [facility] [address] [facility] [place] [address] [facility] [address] [facility] [place] [address] 07/21/2025 1:30 PM EDT Imaging Radiology [address] [place] [address] 08/04/2025 1:20 PM EDT Office Visit Family Medicine [address] [place] [phone] Dhruv Moss MD [address] [place] [address] [place] [address] Health Maintenance Due Date Last Done Comments *BISPHONATE OR OTHER ACCEPTABLE MEDICATION NEEDED FOR OSTEOPOROSIS (REFER TO SMARTSET #1146) 11/06/2023 Colonoscopy 05/06/2024 05/06/2019, 05/06/2019 CKD PHOS USE SMARTSET 18196 06/07/202405/14, 05/31/2023, 05/08/2023, Additional history exists COVID-19 [...] Additional history exists CKD HGB USE SMARTSET 36061 08/21/202508/21, 08/21/2024, 08/14/2024, Additional history exists Diabetic Eye Exam 08/28/2025 08/28/2024, , 08/28/2024, Additional history exists DTap/Tdap Vaccines (3 - Td or Tdap) 11/10/2026 11/10/2016, 03/30/2011 VITAMIN D LEVEL ONCE IN A LIFETIME-USE SMARTSET# 27889 Completed 05/11/2015 RETIRED - COLONOSCOPY-EVERY 5 YRS [...] encounter Medical Devices Implanted Type Area Road Machinery Inspector Device Identifier Shelf Expiration Date Model / Serial / Lot Port Pwr Mri Isp Profile - [id number] Implanted:Qty: 1 on 07/24/2020 by Akash Castillo MD at OR [facility] Right: Chest CR BARD : PERIPHERAL VASCULAR 04/12/2021 [id number] / / [id number] documented as of this encounter Advance Directives [...] Agents on File Name Relationship Healthcare Agent [facility] Juanita Silva Adult Child Health Care Agent Care Teams Wet Process Head [place] Relationship Specialty Start Date End Date Dhruv Moss MD [address] [place] [id number] PCP - General Family Medicine 08/27/21 documented as of this encounter
--- OUTSIDE RECORDS SUMMARY | 2024-10-10 00:31 | External Medical Summary ---
Author Name Unknown Address Unknown Organization K01:[facility] [address] [facility] [place] [address] Laboratory Report Ordering Provider Test Date Status ANN MUNGUIA 08/28/2024 08:28:00 Final Observation Date Value Abnormality Reference (Units ) Status SYNC LEUKOCYTES IN BLOOD BY AUTOMATED COUNT 08/28/2024 08:28:00 15.30 Above high normal 4.00-10.80 (K/uL) Final Neutrophils/100 leukocytes in Blood by Manual count 08/28/2024 08:28:00 18.0 Below low normal 40.0-75.0 (%) Final Lymphocytes/100 leukocytes in Blood by Manual count 08/28/2024 08:28:00 52.0 Above high normal 18.0-42.0 (%) Final Monocytes/100 leukocytes in Blood by Manual count 08/28/2024 08:28:00 1.0 1.0-11.0 (%) Final Eosinophils/100 leukocytes in Blood by Manual count 08/28/2024 08:28:00 1.0 0.0-6.0 (%) Final Basophils/100 leukocytes in Blood by Manual count 08/28/2024 08:28:00 1.0 0.0-2.0 (%) Final Metamyelocytes/100 leukocytes in Blood by Manual count 08/28/2024 08:28:00 7.0 Above high normal <=0.0 (%) Final Myelocytes/100 leukocytes in Blood by Manual count 08/28/2024 08:28:00 6.0 Above high normal <=0.0 (%) Final Promyelocytes/100 leukocytes in Blood by Manual count 08/28/2024 08:28:00 1.0 Above high normal <=0.0 (%) Final Blasts/100 leukocytes in Blood by Manual count 08/28/2024 08:28:00 13.0 Above high normal <=0.0 (%) Final patient's 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 Neutrophils [#/volume] in Blood by Manual count 08/28/2024 08:28:00 2.75 1.80-7.70 (K/uL) Pricilla l Lymphocytes [#/volume] in Blood by Manual count 08/28/2024 08:28:00 7.96 Above high normal 1.00-4.80 (K/uL) Final Monocytes [#/volume] in Blood by Manual count 08/28/2024 08:28:00 0.15 0.00-1.10 (K /uL) Final Eosinophils [#/volume] in Blood by Manual count 08/28/2024 08:28:00 0.15 0.00-0.70 (K/uL) Pricilla l Basophils [#/volume] in Blood by Manual count 08/28/2024 08:28:00 0.15 0.00-0.20 (K /uL) Final Metamyelocytes [#/volume] in Blood by Manual count 08/28/2024 08:28:00 1.07 Above high normal <=0.00 (K/uL) Final Myelocytes [#/volume] in Blood by Manual count 08/28/2024 08:28:00 0.92 Above high normal <=0.00 (K/uL) Final Promyelocytes [#/volume] in Blood by Manual count 08/28/2024 08:28:00 0.15 Above high normal <=0.00 (K/uL) Final Blasts [#/volume] in Blood by Manual count 08/28/2024 08:28:00 1.99 Above high normal <=0.00 (K/uL) Final Performing Location [facility] [place] [address] [place] [facility] [address]
--- OUTSIDE RECORDS SUMMARY | 2024-10-10 00:31 | External Medical Summary ---
Author Name Unknown Address Unknown Organization K01:[facility] [place] [facility] [address] [facility] [address] [place] [address] Laboratory Report Ordering Provider Test Date Status ANN MUNGUIA 08/28/2024 08:28:00 Final Observation Date Value Abnormality Reference (Units ) Status WBC, Total 08/28/2024 08:28:00 15.30 Above high normal 4.00-10.80 (K/uL) Final RBC 08/28/2024 08:28:00 2.28 3.85-5.15 (M/uL) Final Hemoglobin 08/28/2024 08:28:00 7.1 Below low normal 12.0-15.3 (g/dL) Final HCT 08/28/2024 08:28:00 22.0 Below low normal 36.0-45.2 (%) Final MCV 08/28/2024 08:28:00 96.5 81.5-97.5 (fL) Final MCH 08/28/2024 08:28:00 31.1 27.0-34.0 (pg) Final MCHC 08/28/2024 08:28:00 32.3 32.0-36.0 (g/dL) Final RDW 08/28/2024 08:28:00 18.5 11.5-15.5 (%) Final Platelets 08/28/2024 08:28:00 3 Below lower panic limits 140-400 (K/uL) Final MPV 08/28/2024 08:28:00 7.7 6.6-11.1 (fL) Final Nucleated erythrocytes/100 leukocytes [Ratio] in Blood by Automated count 08/28/2024 08:28:00 0 <=0 (/100 WBCs) Final Performing Location [facility]ORY [facility] [place] [address] [place] [place] [address]
--- OUTSIDE RECORDS SUMMARY | 2024-10-10 00:31 | External Medical Summary | Summary of Care ---
Author Name Unknown Organization [facility] Address [address] [facility] [address] Phone [phone] Care Team Providers Care Silver Designer Name Role Phone Dhruv Moss MD Primary Care Provide r Reason for Visit * Reason Comments Follow Up * Precert (Within 10 days (routine)) - Authorized Specialty Diagnoses / Procedures Referred By Vern ayala Referred To Contact Ophthalmology Diagnoses Type 2 diabetes mellitus with moderate nonproliferative diabetic retinopathy with macular edema, bilateral (HCC) Procedures NV BEVACIZUMAB INJECTION NV INTRAVITREAL NJX PHARMACOLOGIC AGT SPX Fernando Damon [facility] [address] [facility] [address] Referral ID Status Reason Start Date Expiration Date V isits Requested Visits Authorized [id number] Authorized Precert 07/17/2024 11/12/2099 [id number] Encounter Details Date Type Department Care Team (Late st Contact Info) Description 08/28/2024 1:45 PM EDT Office Visit Ophthalmology, [facility] [address] [place] [id number] Fernando Damon DO [address] [facility] [address] 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 60 Tablet 3 12/09/2021 Active HeyAnitaTouch Verio Flex System w/Device Kit Use as [...] chew 90 Capsule 1 04/01/2024 Active Pen [place] 32G X 4 MM Use as directed. Use to inject insulin up to 4 times daily. 400 Each 3 04/05/2024 Active Atorvastatin Calcium 40 MG Oral Tablet (Lipitor)Indications :Dyslipidemia, goal LDL below 70 TAKE ONE TABLET BY MOUTH IN THE MORNING 90 Tablet 2 04/22/2024 Active HeyAnitaToTIKI.VN Verio In Vitro Strip (Glucose Blood)Indications:Ty pe [...] 24 Hour (Imdur)Indications:C oronary artery disease involving [facility] coronary artery of [place] heart without angina pectoris,HTN, goal below 140/90 [...] edema, unspecified whether jail insulin use (HCC) 1.25 mg IZ PRN [...] 3553 0000 2079 [id number] 732 / DID: [id number] Matched Unrelated 10/24--- DPB1 Match ABO/Rh: A [...] Thrombocytopenia 12/06/2022 Last Assessment & Plan: Platelets 19922 on 03/20 Questionable hematuria Urinary incontinence 09/12/2022 [...] failure. Does not have any evidence of ixqhq-xknyxy-ynfb disease Last Assessment & Plan: Continues to [...] -continue venlafaxine Coronary artery disease invo lving [facility] [place] coronary artery of [facility] heart without angina pectoris 06/12/2017 Overview: S/P EDIL to LAD on 06/12/17 Last Assessment & Plan: No angina - Continue atorvastatin, isosorbide, metoprolol - no ASA due to thrombocytopenia Dyslipidemia, goal LDL below 70 11/25/2011 Last Assessment & Plan: Patient having no issues. She continues on Lipitor 40 mg daily Last lab I will was that I can find were from [id number] Assessment/plan: Dyslipidemia with patient currently taking Lipitor [...] Fernando Damon, - 08/28/2024 1:45 PM EDT [facility] [place] Nursing Notes: [...] Fernando Damon DO Avastin 1.25mg lot # [id number] Exp. Date: 09/20/2024 Ruth Burger to receive fifth Avastin 1.25mg Injection of the Left eye. Correct eye confirmed with patient and marked by Fernando Damon DO Avastin 1.25mg lot # [id number] Exp. Date: 09/28/2024 * Deja Choi TECH [...] 11:00 AM EDT [facility] [place], [facility] [address] [facility] [place] [address] Tremaine Morgan PA-C [address] [place] [address] 08/30/2024 2:30 PM EDT Office Visit Pharmacy, [address] [place] [address] [place] [address] 09/04/2024 7:00 AM EDT [facility] [address] [place] [address] [address] [facility] [address] [place] [address] 09/11/2024 7:00 AM EDT [facility] [address] [place] [address] [facility] [address] [place] [address] 09/18/2024 7:00 AM EST [facility] [address] [facility] [place], [place] [address] [facility] [address] [facility] [place], [place] [address] 09/25/2024 7:00 AM EST [facility] [address] [facility] [place], [place] [address] [facility] [address] [facility] [address] 10/02/2024 7:00 AM EST [facility] [address] [facility] [place], [place] [address] [facility] [address] [facility] [place], [place] [address] 10/08/2024 10:00 AM EST Home Visit [facility] [address] [facility] [place] [address] Marisa Pacheco, TANYA [address] [facility] [place] [address] 10/09/2024 7:00 AM EST [facility] [address] [facility] [place], [place] [address] [facility] [address] [facility] [place], [place] [address] 10/16/2024 7:00 AM EST [facility] [address] [facility] [place], [place] [address] [facility] [address] [facility] [place] [address] 10/16/2024 1:45 PM EST Office Visit Hematology/Oncology [facility] [place] [address] [place], [place] [id number] Jitendra Aguero MD [address] [place] [address] 2024 7:00 AM EST [facility] [address] [facility] [place] [address] [facility] [address] [place] [address] 10/30/2024 7:00 AM EST [facility] [address] [facility] [address] [facility] [address] [place] [address] 11/05/2024 7:00 AM EST [facility] [address] [facility] [address] [facility] [address] [place] [address] 11/12/2024 7:00 AM EST [facility] [address] [facility] [address] [facility] [address] [place] [address] 11/20/2024 7:00 AM EST [facility] [address] [facility] [address] [facility] [address] [place] [address] 11/27/2024 7:00 AM EST [facility] [address] [facility] [address] [facility] [address] [place] [address] 12/04/2024 7:00 AM EST [facility] [address] [facility] [address] [facility] [address] [facility] [address] 12/11/2024 7:00 AM EST [facility] [address] [place] [address] [facility] [address] [facility] [address] [place] [address] 12/18/2024 7:00 AM EST [facility] [address] [place] [address] [facility] [address] [facility] [place] [address] 12/24/2024 2:30 PM EST Nurse Only Ancillary [address] [place] [address] [place], Nurse [address] [place] [address] 12/25/2024 7:00 AM EST [facility] [address] [place] [address] [facility] [address] [employer] [address] [place] [address] 01/01/2025 7:00 AM EST [facility] [address] [facility] [address] [place] [address] [facility] [address] [facility] [address] [place], [place] [address] 01/08/2025 7:00 AM EST [facility] [address] [facility] [address] [place], [place] [address] [facility] [address] [employer] [place], [place] [address] 01/13/2025 11:40 AM EST Office Visit Family Medicine [address] [place] [phone] Dhruv Moss MD [address] [place] [address] [place] [address] 01/15/2025 7:00 AM EST [facility] [address] [place] [address] [facility] [address] [employer] [place] [address] 01/22/2025 7:00 AM EDT [facility] [address] [place] [address] [facility] [address] [place] [address] 01/29/2025 7:00 AM EDT [facility] [address] [facility], [place] [address] [facility] [address] [place] [address] 02/05/2025 7:00 AM EDT [facility] [address] [place] [address] [facility] [address] [place] [address] 02/12/2025 7:00 AM EDT [facility] [address] [place] [address] [facility] [address] [place] [address] 02/19/2025 7:00 AM EDT [facility] [address] [place] [address] [facility] [address] [employer] [facility] [place] [address] 02/26/2025 7:00 AM EDT [facility] [address] [place] [address] [facility] [address] [place] [address] 03/05/2025 7:00 AM EDT [facility] [address] [place] [address] [facility] [address] [employer] [facility] [place] [address] 03/12/2025 7:00 AM EDT [facility] [address] [place] [address] [facility] [address] [place] [address] 03/19/2025 7:00 AM EDT [facility] [address] [place] [address] [facility] [address] [place] [address] 03/26/2025 7:00 AM EDT [facility] [address] [place] [address] [facility] [address] [place] [address] 04/02/2025 7:00 AM EDT [facility] [address] [place] [address] [facility] [address] [place] [address] 04/09/2025 7:00 AM EDT [facility] [address] [place] [address] [facility] [address] [place] [address] 04/16/2025 7:00 AM EDT [facility] [address] [place] [address] [facility] [address] [place] [address] 04/23/2025 7:00 AM EDT [facility] [address] [place] [address] [facility] [address] [place] [address] 04/30/2025 7:00 AM EDT [facility] [address] [place] [address] [facility] [address] [address] [place], [place] [address] 05/07/2025 7:00 AM EDT [facility] [address] [place], [place] [address] [facility] [address] [place], [place] [address] 05/14/2025 7:00 AM EDT [facility] [address] [place], [place] [address] [facility] [address] [place] [address] 05/21/2025 7:00 AM EDT [facility] [address] [place] [address] [facility] [address] [place] [address] 07/21/2025 1:30 PM EDT Imaging Radiology [address] [place] [address] 08/04/2025 1:20 PM EDT Office Visit Family Medicine [address] [place] [phone] Dhruv Moss MD [address] [place] [address] [place] [address] Scheduled Orders Name Type Priority Associated Diagnoses Orde r Schedule RETINA SCAN DIAGNOSTIC IMAGE, POSTERIOR Procedures Routine 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, unspecified whether exterminator termite insulin use (HCC) Ordered: 08/28/2024 FUNDUS PHOTOGRAPHY Procedures Routine 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, unspecified whether jail insulin use (HCC) Ordered: 08/28/2024 Health Maintenance Due Date Last Done Comments *BISPHONATE OR OTHER ACCEPTABLE MEDICATION NEEDED FOR OSTEOPOROSIS (REFER TO SMARTSET #1146) 11/06/2023 Colonoscopy 05/06/2024 05/06/2019, 05/06/2019 CKD PHOS USE SMARTSET 07133 06/07/2024 07/2 04/2023, 05/31/2023, 05/08/2023, Additional history [...] Additional history exists CKD HGB USE SMARTSET 77806 08/21/202508/21, 08/21/2024, 08/14/2024, Additional history exists Diabetic Eye Exam 08/28/2025 08/28/2024, , 08/28/2024, Additional history exists DTap/Tdap Vaccines (3 - Td or Tdap) 11/10/2026 11/10/2016, 03/30/2011 VITAMIN D LEVEL ONCE IN A LIFETIME-USE SMARTSET# 16111 Completed 05/11/2015 RETIRED - COLONOSCOPY-EVERY 5 YRS [...] this encounter Medical Devices Implanted Type Area Hydrographical Technical Officer Device Identifier Shelf Expiration Date Model / Serial / Lot Port Pwr Mri Isp Profile - [id number] Implanted:Qty: 1 on 07/24/2020 by Akash Castillo MD at OR [facility] Right: Chest CR BARD : PERIPHERAL VASCULAR 04/12/2021 [id number] / / [id number] documented as of this encounter Visit Diagnoses Diagnosis 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
--- OUTSIDE RECORDS SUMMARY | 2024-10-10 00:31 | External Medical Summary | Summary of Care ---
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 Name Role Phone Dhruv Moss MD Primary Care Provide r Reason for Visit * Reason Onset Date Comments Test Results Lab 08/22/2024 Encounter Details Date Type Department Care Team (Late st Contact Info) Description 08/22/2024 Telephone Hematology/Oncology [facility] [address] [place] [phone] Jitendra Aguero MD [address] [place] [address] Test Results Lab Allergies No known active allergiesdocumented as of this encounter (statuses as of 08/22/2024) Medications Medication Sig Dispensed Refills Start Date End Date Status Diclofenac Sodium 1 % External GelIndications:knee pain Apply topically to affected area . Apply to bilateral knees Active Prochlorperazine Maleate 10 MG Oral Tablet (Compazine)Indicatio ns:H/O allogeneic bone marrow transplant (HCC) Take by mouth 1 Tablet every 6 hours as needed for Nausea. 60 Tablet 3 12/09/2021 Active [employer] Flex System w/Device Kit Use as [...] chew 90 Capsule 1 04/01/2024 Active Pen [place] 32G X 4 MM Use as directed. [...] 24 Hour (Imdur)Indications:C oronary artery disease involving [place] coronary artery of [place] heart without angina pectoris,HTN, goal below [...] Oral TabletIndications:MD Santos (myelodysplastic syndrome), high grade ([facility]) Take 1 Tablet by mouth [...] as of this encounter (statuses as of 08/22/2024) Active Problems Patient Care Coordination No te Formatting of this note migh t be different from the original. Date of Transplant: 09/01/2021 Conditioning Regimen: Fludarabine / Busulfan 2 with post-transplant Cytoxan ABO/Rh: A Positive CMV status: CMV Positive--- GRID: [id number] / DID: [id number] Matched Unrelated 10/24--- DPB1 Match ABO/Rh: A [...] Thrombocytopenia 12/06/2022 Last Assessment & Plan: Platelets 38844 on 03/20 Questionable hematuria Urinary incontinence 09/12/2022 [...] failure. Does not have any evidence of qpfwx-vzdqqg-fygz disease Last Assessment & Plan: Continues to [...] -continue venlafaxine Coronary artery disease invo lving [place] coronary artery of [place] heart without angina pectoris 06/12/2017 Overview: S/P EDIL to LAD on 06/12/17 Last Assessment & Plan: No angina - Continue atorvastatin, isosorbide, metoprolol - no ASA due to thrombocytopenia Dyslipidemia, goal LDL below 70 11/25/2011 Last Assessment & Plan: Patient having no issues. She continues on Lipitor 40 mg daily Last lab I will was that I can find were from [phone] Assessment/plan: Dyslipidemia with patient currently taking Lipitor [...] as of this encounter (statuses as of 08/22/2024) Resolved Problems Problem Noted Date Diagnosed Date [...] hyperglycemia, with long-term current use of insulin 08/30/20212 Last Assessment & Plan: Is aPatient currently [...] as of this encounter (statuses as of 08/22/2024) Immunizations Name Administration Dates Next Due COVID-19 mRNA, LNP-s, No Pre serve, 2-Dose Series (NinthDecimal) 02/05/2021,01/08/2021 COVID-19, LNP-s, No Preserve , Ye-sucrose, [...] No 08/13/2024 Does the household have a [facility] source of income? (Household - for ages [...] Telephone Encounter - Makenzie Barth LPN - 08/22/2024 7:08 AM EDT Per TE from 08/15/2024 at patient's daughter's request called family friend, Mayuri Mir. Informed patient will need to have 1 unit of prbc and 1unit of platelets. Patient to receive 1 of prbc and 1 unit of platelets. Called [facility] blood bank. Spoke with Emiliano. Spoke with Margoth at [facility]. Called [facility] central scheduling. Patient scheduled for 08/22/2024 at 10:00 am. Mayuri verbalized understanding of appt time and will make patient and her is aware. Faxed order to [facility]/ blood bank. * Telephone Encounter - Makenzie Barth LPN - 08/22/2024 6:58 AM EDT ----- Message from Jitendra Aguero MD sent at 08/22/2024 6:52 AM EDT ----- Blood workup done on 08/21/2024: - WBC 16,000, H&H of 7.5/20.4, platelet count of 4000. Transfuse one unit of PRBC and one bag of platelet. documented in this encounter Plan of Treatment Upcoming Encounters Date Type Department Care Team (Late st Contact Info) Description 08/27/2024 1:00 PM EDT Office Visit Pharmacy, [address] [place] [address] [place] [address] 08/28/2024 7:00 AM EDT Laboratory Lab Mobile Phlebotomy [facility] [address] [facility] [place] [address] M[facility], [facility] [address] [facility] [place] [address] 08/28/2024 1:45 PM EDT Office Visit Ophthal[facility], [facility] [address] [place] [address] Fernando Damon, [address] [place] [address] 08/29/2024 11:00 AM EDT Home Visit [facility] [address] [place] [address] Tremaine Morgan PA-C [address] [place] [address] 09/04/2024 7:00 AM EDT Laboratory Lab Mobile Phlebotomy [facility] [address] [facility] [place] [address] M[facility], [facility] [address] [facility] [place] [address] 09/11/2024 7:00 AM EDT Laboratory Lab [facility] Phlebotomy [facility] [address] [facility] [place] [address] Mv[facility], [facility] [address] [facility] [place] [address] 09/18/2024 7:00 AM EST Laboratory Lab [facility] Phlebotomy [facility] [address] [facility] [place] [address] Mvmg, [facility] [address] [facility] [place] [address] 09/25/2024 7:00 AM EST Laboratory Lab [facility] Phlebotomy [facility] [address] [facility] [place] [address] Mvmg, Gml [facility] [address] [facility] [place] [address] 10/02/2024 7:00 AM EST Laboratory Lab Mobile Phlebotomy [facility] [address] [place] [address] M[facility], [facility] Draw [address] [place] [address] 10/08/2024 10:00 AM EST [facility] Visit [facility] [place] [address] [place] [address] Marisa Pacheco, TANYA [address] [place] [address] 10/09/2024 7:00 AM EST Laboratory Lab Mobile Phlebotomy [facility] [address] [employer] [place] [address] M[facility], [facility] [address] [facility] [place] [address] 10/16/2024 7:00 AM EST Laboratory Lab Mobile Phlebotomy [facility] [address] [employer] [place] [address] M[facility]mg, Gml [facility] Draw [address] [facility] [place] [address] 10/16/2024 1:45 PM EST Office Visit Hematology/Oncology [facility] [address] [facility] [place], [place] [id number] Jitendra Aguero MD [address] [facility] [place] [address] 2024 7:00 AM EST Laboratory Lab Mobile Phlebotomy [facility] [address] [employer] [place] [address] Mvmg, Gml [facility] Draw [address] [employer] [place], [place] [address] 10/30/2024 7:00 AM EST Laboratory Lab Mobile Phlebotomy [facility] [address] [place] [address] M[facility]mg, Gml [facility] Draw [address] [facility] [place] [address] 11/05/2024 7:00 AM EST Laboratory Lab Mobile Phlebotomy [facility] [address] [place] [address] Mvmg, Gml Mobile Home Draw [address] [place] [address] 11/12/2024 7:00 AM EST Laboratory Lab Mobile Phlebotomy [facility] [address] [place] [address] Mvmg, Gml [facility] Draw [address] [place] [address] 11/20/2024 7:00 AM EST Laboratory Lab Mobile Phlebotomy [facility] [address] [place] [address] Mvmg, Gml [facility] Draw [address] [place] [address] 11/27/2024 7:00 AM EST Laboratory Lab Mobile Phlebotomy [facility] [address] [place] [address] Mvmg, Gml [facility] Draw [address] [place] [address] 12/04/2024 7:00 AM EST Laboratory Lab Mobile Phlebotomy [facility] [address] [place] [address] Mvmg, Gml Mobile Home Draw [address] [place] [address] 12/11/2024 7:00 AM EST Laboratory Lab Mobile Phlebotomy [facility] [address] [place] [address] Mvmg, Gml [facility] Draw [address] [place] [address] 12/18/2024 7:00 AM EST Laboratory Lab Mobile Phlebotomy [facility] [address] [facility] [place] [address] Mvmg, Gml [facility] Draw [address] [facility] [place] [address] 12/24/2024 2:30 PM EST Nurse Only Ancillary [address] [place] [address] Cristina, Nurse Annual [address] [place] [address] 12/25/2024 7:00 AM EST Laboratory Lab Mobile Phlebotomy [facility] [address] [employer] [place] [address] Mvmg, Gml [facility] Draw [address] [employer] [place] [address] 01/01/2025 7:00 AM EST Laboratory Lab Mobile Phlebotomy [facility] [address] [employer] [place] [address] Mvmg, Gml [facility] Draw [address] [employer] [place] [address] 01/08/2025 7:00 AM EST Laboratory Lab Mobile Phlebotomy [facility] [address] [employer] [place] [address] Mvmg, Gml [facility] Draw [address] [employer] [place] [address] 01/13/2025 11:40 AM EST Office Visit Family Medicine [address] [place] [phone] Dhruv Moss MD [address] [place] [address] [place] [address] 01/15/2025 7:00 AM EST Laboratory Lab Mobile Phlebotomy [facility] [address] [employer] [place] [address] Mvmg, Gml [facility] Draw [address] [address] 01/22/2025 7:00 AM EDT Laboratory Lab Mobile Phlebotomy [facility] [address] [place] [place] [address] Mvmg, Gml [facility] Draw [address] [place] [address] 01/29/2025 7:00 AM EDT Laboratory Lab Mobile Phlebotomy [facility] [address] [place] [address] Mvmg, Gml [facility] Draw [address] [facility] [place] [address] 02/05/2025 7:00 AM EDT Laboratory Lab Mobile Phlebotomy [facility] [address] [facility] [place] [address] Mvmg, Gml [facility] Draw [address] [facility] [place] [address] 02/12/2025 7:00 AM EDT Laboratory Lab Mobile Phlebotomy [facility] [address] [employer] [place] [address] Mvmg, Gml [facility] Draw [address] [facility] [place] [address] 02/19/2025 7:00 AM EDT Laboratory Lab Mobile Phlebotomy [facility] [address] [employer] [place] [address] Mvmg, Gml Mobile [facility] Draw [address] [place] [address] 02/26/2025 7:00 AM EDT Laboratory Lab Mobile Phlebotomy [facility] [address] [employer] [place] [address] Mvmg, Gml Mobile Home Draw [address] [place] [address] 03/05/2025 7:00 AM EDT Laboratory Lab Mobile Phlebotomy [facility] [address] [facility] [place] [address] Mvmg, Gml [facility] Draw [address] [place] [address] 03/12/2025 7:00 AM EDT Laboratory Lab Mobile Phlebotomy [facility] [address] [place] [address] Mvmg, Gml Mobile Home Draw [address] [place] [address] 03/19/2025 7:00 AM EDT Laboratory Lab Mobile Phlebotomy [facility] [address] [facility] [place] [address] Mvmg, Gml [facility] Draw [address] [place] [address] 03/26/2025 7:00 AM EDT Laboratory Lab Mobile Phlebotomy [facility] [address] [facility] [place] [address] Mvmg, Gml [facility] Draw [address] [facility] [place] [address] 04/02/2025 7:00 AM EDT Laboratory Lab Mobile Phlebotomy [facility] [address] [facility] [place] [address] Mvmg, Gml [facility] Draw [address] [facility] [place] [address] 04/09/2025 7:00 AM EDT Laboratory Lab Mobile Phlebotomy [facility] [address] [facility] [place] [address] Mvmg, Gml [facility] Draw [address] [facility] [place] [address] 04/16/2025 7:00 AM EDT Laboratory Lab Mobile Phlebotomy [facility] [address] [place] [address] Mvmg, Gml [facility] Draw [address] [place] [address] 04/23/2025 7:00 AM EDT Laboratory Lab Mobile Phlebotomy [facility] [address] [place] [address] Mvmg, Gml [facility] Draw [address] [facility] [place] [address] 04/30/2025 7:00 AM EDT Laboratory Lab Mobile Phlebotomy [facility] [address] [place] [address] Mvmg, Gml [facility] Home Draw [address] [place] [address] 05/07/2025 7:00 AM EDT Laboratory Lab Mobile Phlebotomy [facility] [address] [facility] [place] [address] Mvmg, Gml [facility] Draw [address] [facility] [place] [address] 05/14/2025 7:00 AM EDT Laboratory Lab Mobile Phlebotomy [facility] [address] [employer] [place] [address] Mvmg, Gml [facility] Draw [address] [facility] [place] [address] 05/21/2025 7:00 AM EDT Laboratory Lab Mobile Phlebotomy [facility] [address] [place] [address] Mvmg, Gml [facility] Draw [address] [facility] [place] [address] 07/21/2025 1:30 PM EDT Imaging Radiology [address] [place] [address] 08/04/2025 1:20 PM EDT Office Visit Family Medicine [address] [place] [phone] Dhruv Moss MD [address] [place] [address] [place] [address] Health Maintenance Due Date Last Done Comments *BISPHONATE OR OTHER ACCEPTABLE MEDICATION NEEDED FOR OSTEOPOROSIS (REFER TO SMARTSET #1146) 11/06/2023 Colonoscopy 05/06/2024 05/06/2019, 05/06/2019 CKD PHOS USE SMARTSET 31044 06/07/202405/14, 05/31/2023, 05/08/2023, Additional history exists COVID-19 [...] 06/03/2022, Additional history exists Diabetic Eye Exam 07/17/2025 07/17/2024, , 07/17/2024, Additional history exists CKD HGB USE SMARTSET 85520 08/21/202508/21, 08/21/2024, 08/14/2024, Additional history exists DTap/Tdap Vaccines (3 - Td or Tdap) 11/10/2026 11/10/2016, 03/30/2011 VITAMIN D LEVEL ONCE IN A LIFETIME-USE SMARTSET# 91633 Completed 05/11/2015 RETIRED - COLONOSCOPY-EVERY 5 YRS [...] this encounter Medical Devices Implanted Type Area Veneer Sander Device Identifier Shelf Expiration Date Model / Serial / Lot Port Pwr Mri Isp Profile - [id number] Implanted:Qty: 1 on 07/24/2020 by Akash Castillo MD at [facility] Right: Chest CR BARD : PERIPHERAL VASCULAR 04/12/2021 [id number] / / [id number] documented as of this encounter Advance Directives [...] Name Relationship Healthcare Agent [facility] p Communication [facility] Adult Child Health Care Agent Care Teams Kettle Fry Cook Operator Relationship Specialty Start Date End Date Dhruv Moss MD [address] [place] [address] [place] [address] PCP - General Family Medicine 08/27/21 documented as of this encounter
--- OUTSIDE RECORDS SUMMARY | 2024-10-10 00:31 | External Medical Summary ---
Author Name Unknown Address Unknown Organization K01:LABORATORY [facility] [place] - [facility] [address] [facility] [address] [place] [address] Laboratory Report Ordering Provider Test Date Status ANN MUNGUIA 08/21/2024 08:51:00 Final Observation Date Value Abnormality Reference (Units ) Status WBC, Total 08/21/2024 08:51:00 16.08 Above high normal 4.00-10.80 (K/uL) Final RBC 08/21/2024 08:51:00 2.30 3.85-5.15 (M/uL) Final Hemoglobin 08/21/2024 08:51:00 7.5 Below low normal 12.0-15.3 (g/dL) Final HCT 08/21/2024 08:51:00 23.4 Below low normal 36.0-45.2 (%) Final MCV 08/21/2024 08:51:00 101.7 81.5-97.5 (fL) Final MCH 08/21/2024 08:51:00 32.6 27.0-34.0 (pg) Final MCHC 08/21/2024 08:51:00 32.1 32.0-36.0 (g/dL) Final RDW 08/21/2024 08:51:00 18.5 11.5-15.5 (%) Final Platelets 08/21/2024 08:51:00 4 Below lower panic limits 140-400 (K/uL) Final MPV 08/21/2024 08:51:00 9.5 6.6-11.1 (fL) Final Nucleated erythrocytes/100 leukocytes [Ratio] in Blood by Automated count 08/21/2024 08:51:00 0 <=0 (/100 WBCs) Final Performing Location LABORATORY [facility] - [address] [place] [address]
--- OUTSIDE RECORDS SUMMARY | 2024-10-10 00:31 | External Medical Summary ---
Author Name Unknown Address Unknown Organization K01:[facility] [address] [facility] [place] [address] Laboratory Report Ordering Provider Test Date Status ANN MUNGUIA 08/21/2024 08:51:00 Final Observation Date Value Abnormality Reference (Units ) Status SYNC LEUKOCYTES IN BLOOD BY AUTOMATED COUNT 08/21/2024 08:51:00 16.08 Above high normal 4.00-10.80 (K/uL) Final Neutrophils/100 leukocytes in Blood by Manual count 08/21/2024 08:51:00 17.0 Below low normal 40.0-75.0 (%) Final Lymphocytes/100 leukocytes in Blood by Manual count 08/21/2024 08:51:00 60.0 Above high normal 18.0-42.0 (%) Final Monocytes/100 leukocytes in Blood by Manual count 08/21/2024 08:51:00 9.0 1.0-11.0 (%) Final Metamyelocytes/100 leukocytes in Blood by Manual count 08/21/2024 08:51:00 7.0 Above high normal <=0.0 (%) Final Blasts/100 leukocytes in Blood by Manual count 08/21/2024 08:51:00 7.0 Above high normal <=0.0 (%) Final Neutrophils [#/volume] in Blood by Manual count 08/21/2024 08:51:00 2.73 1.80-7.70 (K/uL) Final Lymphocytes [#/volume] in Blood by Manual count 08/21/2024 08:51:00 9.65 Above high normal 1.00-4.80 (K/uL) Final Monocytes [#/volume] in Blood by Manual count 08/21/2024 08:51:00 1.45 Above high normal 0.00-1.10 (K/uL) Final Metamyelocytes [#/volume] in Blood by Manual count 08/21/2024 08:51:00 1.13 Above high normal <=0.00 (K/uL) Final Blasts [#/volume] in Blood by Manual count 08/21/2024 08:51:00 1.13 Above high normal <=0.00 (K/uL) Final Performing Location [facility] [place] [address] [facility] [address]
--- OUTSIDE RECORDS SUMMARY | 2024-10-10 00:31 | External Medical Summary | Summary of Care ---
Author Name Unknown Organization [facility] Address [address] [facility] [address] Phone [phone] Care Team Providers Care Account Manager B2B Name Role Phone Dhruv Moss MD Primary Care Provide r Encounter Details Date Type Department Care Team (Late st Contact Info) Description 08/19/2024 Telephone Pharmacy, [address] [place] [phone] [facility] [phone] Allergies No known active allergiesdocumented as of this encounter (statuses as of 08/21/2024) Medications Medication Sig Dispensed Refills Start Date [...] chew 90 Capsule 1 04/01/2024 Active Pen [place] 32G X 4 MM Use as directed. [...] 24 Hour (Imdur)Indications:C oronary artery disease involving chilkat coronary artery of chilkat heart without angina pectoris,HTN, goal below 140/90 [...] of less than 8.0% ([facility]) TAKE 1 TABLET BY MOUTH [...] both eyes and macular edema, unspecified whether truck terminal manager insulin use (HCC) 1.5 mg PERINEURAL PRN 07/17/2024 07/17/2025 Active documented as of this encounter (statuses as of 08/21/2024) Active Problems Patient Care Coordination No te Formatting of this note migh t be different from the original. Date of Transplant: 09/01/2021 Conditioning Regimen: Fludarabine / Busulfan 2 with post-transplant Cytoxan ABO/Rh: A Positive CMV status: CMV Positive--- GRID: [id number] / DID: [id number] Matched Unrelated 10/24--- DPB1 Match ABO/Rh: A [...] Thrombocytopenia 12/06/2022 Last Assessment & Plan: Platelets 41039 on 03/20 Questionable hematuria Urinary incontinence 09/12/2022 [...] failure. Does not have any evidence of qbjpr-hcynkx-buow disease Last Assessment & Plan: Continues to [...] -continue venlafaxine Coronary artery disease invo lving chilkat coronary artery of chilkat heart without angina pectoris 06/12/2017 Overview: S/P EDIL to LAD on 06/12/17 Last Assessment & Plan: No angina - Continue atorvastatin, isosorbide, metoprolol - no ASA due to thrombocytopenia Dyslipidemia, goal LDL below 70 11/25/2011 Last Assessment & Plan: Patient having no issues. She continues on Lipitor 40 mg daily Last lab I will was that I can find were from [phone] Assessment/plan: Dyslipidemia with patient currently taking Lipitor [...] as of this encounter (statuses as of 08/21/2024) Resolved Problems Problem Noted Date Diagnosed Date [...] as of this encounter (statuses as of 08/21/2024) Immunizations Name Administration Dates Next Due COVID-19 mRNA, LNP-s, No Pre serve, 2-Dose Series ([employer]) 02/05/2021,01/08/2021 COVID-19, LNP-s, No Preserve , Ye-sucrose, [...] No 08/13/2024 Does the household have a hawthorn centerr source of income? (Household - for [...] Telephone Encounter - Makenzie Pool RPh - 08/21/2024 10:10 AM EDT Attempted to contact patient, no answer. Left message to return call. Makenzie Pool RPh, PharmD Clinical Pharmacist - Heavy Duty Press Operator [facility] 08/21/2024, 10:10 AM [phone] * Telephone Encounter - Makenzie Pool RPh - 08/19/2024 4:13 PM EDT Attempted to contact patient to reschedule 08/27 appointment due to coverage. No answer, left message to return call to clinic to reschedule. Makenzie Pool RPh, PharmD Clinical Pharmacist - Heavy Duty Press Operator [facility] 08/19/2024, 4:14 PM [phone] documented in this encounter Plan of Treatment Upcoming Encounters Date Type Department Care Team (Late st Contact Info) Description 08/27/2024 1:00 PM EDT Office Visit Pharmacy, [address] [place] [address] [place] [address] 08/28/2024 7:00 AM EDT Laboratory Lab Mobile Phlebot[facility] [address] [place] [address] [address] [facility] [address] [place] [address] [address] 08/28/2024 1:45 PM EDT Office Visit Ophthalmology, [address] [place] [address] Fernando Damon DO [address] [place] [address] 08/29/2024 11:00 AM EDT Home Visit [facility] [address] [place] [address] Tremaine Morgan PA-C [address] [place] [place] [address] 09/04/2024 7:00 AM EDT Laboratory Lab Mobile Phlebotomy [facility] [address] [facility], [place] [address] [facility] [address] [facility], [place] [address] 09/11/2024 7:00 AM EDT Laboratory Lab Mobile Phlebotomy [facility] [address] [facility], [place] [address] [facility] [address] [place] [address] 09/18/2024 7:00 AM EST Laboratory [facility] [address] [facility] [place], [place] [address] [facility] [address] [facility], [place] [address] 09/25/2024 7:00 AM EST Laboratory Lab [facility] Phlebotomy [facility] [address] [facility] [place] [place], [place] [address] [facility] [address] [place] [address] 10/02/2024 7:00 AM EST Laboratory [facility] [address] [facility] [place], [place] [address] [facility] [address] [facility], [place] [address] 10/08/2024 10:00 AM EST Home Visit [facility] [address] [place] [address] Marisa Pacheco, TANYA [address] [place] [address] 10/09/2024 7:00 AM EST Laboratory [facility] [address] [employer] [place] [address] [facility] [address] [place], [place] [address] 10/16/2024 7:00 AM EST Laboratory [facility] [address] [facility] [place] [address] [facility] [address] [facility] [place] [address] 10/16/2024 1:45 PM EST Office Visit [facility]ology[facility] [place] [address] [facility], [place] [phone] Jitendra Aguero MD [address] [place] [address] 2024 7:00 AM EST Laboratory [facility]bot[facility] [address] [place], [place] [address] [facility] [address] [facility] [place], [place] [address] 10/30/2024 7:00 AM EST Laboratory [facility] Phlebot[facility] [address] [place], [place] [address] [facility] [address] [facility] [place], [place] [address] 11/05/2024 7:00 AM EST Laboratory [facility] Phlebot[facility] [address] [place], [place] [address] [facility] [address] [facility] [place], [place] [address] 11/12/2024 7:00 AM EST Laboratory [facility] Phlebot[facility] [address] [place] [address] [facility] [address] [place] [address] 11/20/2024 7:00 AM EST Laboratory [facility] Ph[facility]bot[facility] [address] [place] [address] [facility] [address] [place] [address] 11/27/2024 7:00 AM EST Laboratory [facility] Phlebot[facility] [address] [place] [address] [facility] [address] [place] [address] 12/04/2024 7:00 AM EST Laboratory [facility] [address] [place] [address] [facility] [address] [place] [address] 12/11/2024 7:00 AM EST Laboratory [facility] Phlebotomy [facility] [address] [place] [address] [facility] [address] [place] [address] 12/18/2024 7:00 AM EST Laboratory [facility] [address] [place] [address] [facility] [address] [place] [address] 12/24/2024 2:30 PM EST Nurse Only Ancillary [address] [place] [address] Bernadinealley, Nurse [address] [place] [address] 12/25/2024 7:00 AM EST Laboratory [facility] [address] [place] [address] [facility] [address] [place] [address] 01/01/2025 7:00 AM EST Laboratory [facility] Phlebot[facility] [address] [place], [place] [address] [facility] [address] [place] [address] 01/08/2025 7:00 AM EST Laboratory [facility] [address] [place], [place] [address] [facility] [address] [place], [place] [address] 01/13/2025 11:40 AM EST Office Visit Family Medicine [address] [phone] Dhruv Moss MD [address] [place] [address] [place] [address] 01/15/2025 7:00 AM EST [facility] [address] [place], [place] [address] [facility] [address] [place], [place] [address] 01/22/2025 7:00 AM EDT Laboratory [facility] Phlebotomy [facility] [address], [place] [address] [facility] [address] [place], [place] [address] 01/29/2025 7:00 AM EDT Laboratory [facility] Phlebot[facility] [address] [place] [address] [facility] [address] [place] [address] 02/05/2025 7:00 AM EDT Laboratory Lab [facility] Phlebotomy [facility] [address] [place] [address] [facility] [address] [place] [address] 02/12/2025 7:00 AM EDT Laboratory [facility] [address] [place] [address] [facility] [address] [place] [address] 02/19/2025 7:00 AM EDT Laboratory Lab Mobile Phlebotomy [facility] [address] [place] [address] [facility] [address] [place] [address] 02/26/2025 7:00 AM EDT Laboratory [facility] Ph[facility] [address] [place] [address] [facility] [address] [place] [address] 03/05/2025 7:00 AM EDT Laboratory Lab [facility] Phlebotomy [facility] [address] [place] [address] [facility] [address] [place] [address] 03/12/2025 7:00 AM EDT Laboratory Lab [facility] [address] [place] [address] [facility] [address] [place] [address] 03/19/2025 7:00 AM EDT Laboratory [facility] [address] [place] [address] [facility] [address] [place] [address] 03/26/2025 7:00 AM EDT Laboratory [facility] [address] [place] [address] [facility] [address] [place] [address] 04/02/2025 7:00 AM EDT Laboratory [facility] [address] [place] [address] [facility] [address] [place] [address] 04/09/2025 7:00 AM EDT Laboratory [facility] Ph[facility] [address] [place] [address] [facility] [address] [place] [address] 04/16/2025 7:00 AM EDT Laboratory [facility] [address] [place] [address] [facility] [address] [place] [address] 04/23/2025 7:00 AM EDT Laboratory [facility] [address] [place] [address] [facility] [address] [place] [address] 04/30/2025 7:00 AM EDT Laboratory [facility] [address] [place] [address] [facility] [address] [place] [address] 05/07/2025 7:00 AM EDT Laboratory [facility] [address] [place] [address] [facility] [address] [place] [address] 05/14/2025 7:00 AM EDT Laboratory [facility] [address] [place] [address] [facility] [address] [place] [address] 05/21/2025 7:00 AM EDT Laboratory Lab [facility] Phlebotomy [facility] [address] [place] [address] [facility] [address] [place] [address] 07/21/2025 1:30 PM EDT Imaging Radiology [address] [place] [address] 08/04/2025 1:20 PM EDT Office Visit Family Medicine [address] [place] [phone] Dhruv Moss MD [address] [place] [address] [place] [address] Health Maintenance Due Date Last Done Comments *BISPHONATE OR OTHER ACCEPTABLE MEDICATION NEEDED FOR OSTEOPOROSIS (REFER TO SMARTSET #1146) 11/06/2023 Colonoscopy 05/06/2024 05/06/2019, 05/06/2019 CKD PHOS USE SMARTSET 01244 06/07/202405/14, 05/31/2023, 05/08/2023, Additional history exists COVID-19 [...] Additional history exists CKD HGB USE SMARTSET 78157 08/14/202508/14, 08/14/2024, 08/07/2024, Additional history exists DTap/Tdap Vaccines (3 - Td or Tdap) 11/10/2026 11/10/2016, 03/30/2011 VITAMIN D LEVEL ONCE IN A LIFETIME-USE SMARTSET# [id number] Completed 05/11/2015 RETIRED - COLONOSCOPY-EVERY 5 YRS [...] this encounter Medical Devices Implanted Type Area Horseradish Grinder Device Identifier Shelf Expiration Date Model / Serial / Lot Port Pwr Mri Isp Profile - [id number] Implanted:Qty: 1 on 07/24/2020 by Akash Catsillo MD at [facility] Right: Chest CR BARD : PERIPHERAL VASCULAR 04/12/2021 [id number] / / [id number] documented as of this encounter Advance Directives [...] Agents on File Name Relationship Healthcare Agent [facility] p Communication [facility] Child Health Care Agent Care Teams Account Manager B2B Relationship Specialty Start Date End Date Dhruv Moss MD [address] [place], [place] [address] [address] PCP - General Family Medicine 08/27/21 documented as of this encounter
--- OUTSIDE RECORDS SUMMARY | 2024-10-10 00:31 | External Medical Summary | Summary of Care ---
Author Name Unknown Organization [facility] [address] [facility] [address] Phone [phone] Care Team Providers Care Television Audio Engineer Name Role Phone Dhruv Moss MD Primary Care Provide r Encounter Details Date Type Department Care Team (Late st Contact Info) Description 08/19/2024 Telephone Pharmacy, [address] [place] [phone] [phone] Allergies No known active allergiesdocumented as of this encounter (statuses as of 08/26/2024) Medications Medication Sig Dispensed Refills Start Date [...] chew 90 Capsule 1 04/01/2024 Active Pen Neligh 32G X 4 MM Use as directed. 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 Date of Transplant: 09/01/2021 Conditioning Regimen: Fludarabine / Busulfan 2 with post-transplant Cytoxan ABO/Rh: A Positive CMV status: CMV Positive--- GRID: [id number] / DID: [id number] Matched Unrelated 10/24--- DPB1 Match ABO/Rh: A [...] Thrombocytopenia 12/06/2022 Last Assessment & Plan: Platelets 44379 on 03/20 Questionable hematuria Urinary incontinence 09/12/2022 [...] failure. Does not have any evidence of kbrtt-pjtvfx-lkbk disease Last Assessment & Plan: Continues to [...] was that I can find were from [phone] Assessment/plan: Dyslipidemia with patient currently taking Lipitor [...] as of this encounter (statuses as of 08/26/2024) Resolved Problems Problem Noted Date Diagnosed Date [...] as of this encounter (statuses as of 08/26/2024) Immunizations Name Administration Dates Next Due COVID-19 mRNA, LNP-s, No Pre serve, 2-Dose Series (bizsol) 02/05/2021,01/08/2021 COVID-19, LNP-s, No Preserve , Ye-sucrose, [...] No 08/13/2024 Does the household have a [facility] source of income? (Household - for ages [...] Telephone Encounter - Makenzie Pool RPh - 08/26/2024 9:23 AM EDT Called and spoke with patient's spouse. Appointment rescheduled for 08/30. Makenzie Pool RPh, PharmArmand Clinical Pharmacist - Preliminary School Psychologist [facility] 08/26/2024, 9:23 AM [phone] * Telephone Encounter - Makenzie Pool RPh - 08/21/2024 10:10 AM EDT Attempted to contact patient, no answer. Left message to return call. Makenzie Pool RPh, PharmD Clinical Pharmacist - Preliminary School Psychologist [facility] 08/21/2024, 10:10 AM [phone] * Telephone Encounter - Makenzie Pool RPh - 08/19/2024 4:13 PM EDT Attempted to contact patient to reschedule 08/27 appointment due to coverage. No answer, left message to return call to clinic to reschedule. Makenzie Pool RPh, PharmD Clinical Pharmacist - Preliminary School Psychologist [facility] 08/19/2024, 4:14 PM [phone] documented in this encounter Plan of Treatment Upcoming Encounters Date Type Department Care Team (Late st Contact Info) Description 08/28/2024 7:00 AM EDT Laboratory Lab Mobile Phlebotomy [facility] [address] [place] [address] [facility], [facility] [address] [place], [place] [address] 08/28/2024 1:45 PM EDT Office Visit Ophthalmology, [facility] [address] [place] [address] Fernando Damon, [address] [place] [address] 08/29/2024 11:00 AM EDT [facility] Visit [facility] [address] [place] [address] Tremaine Morgan PA-C [address] [place] [address] 08/30/2024 2:30 PM EDT Office Visit Pharmacy, [address] [place] [address] [place] [address] 09/04/2024 7:00 AM EDT Laboratory Lab Mobile Phlebotomy [facility] [address] [place] [address] [facility] [address] [place], [place] [address] 09/11/2024 7:00 AM EDT Laboratory Lab Mobile Phlebotomy [facility] [address] [place], [place] [address] [facility], [facility] [address] [place], [place] [address] 09/18/2024 7:00 AM EST Laboratory Lab Mobile Phlebotomy [facility] [address] [place], [place] [address] [facility], [facility] [address] [place], [place] [address] 09/25/2024 7:00 AM EST Laboratory Lab Mobile Phlebotomy [facility] [address] [place], [place] [address] [facility], [facility] Draw [address] [place], [place] [address] 10/02/2024 7:00 AM EST Laboratory Lab Mobile Phlebotomy [facility] [address] [place], [place] [address] [facility], [facility] Draw [address] [place], [place] [address] 10/08/2024 10:00 AM EST Home Visit [facility] at [facility] [address] [facility] [place] [address] Marisa Pacheco RN [address] [facility] [place] [address] 10/09/2024 7:00 AM EST Laboratory Lab Mobile Phlebotomy [facility] [address] [place], [place] [address] [facility], [facility] [address] [place], [place] [address] 10/16/2024 7:00 AM EST Laboratory Lab Mobile Phlebotomy [facility] [address] [place], [place] [address] M[facility], [facility] Draw [address] [place], [place] [address] 10/16/2024 1:45 PM EST Office Visit Hematology/Oncology [facility] [place] [address] [place], [place] [phone] Jitendra Aguero MD [address] [place] [address] 2024 7:00 AM EST Laboratory Lab Mobile Phlebotomy [facility] [address] [place], [place] [address] [facility], [facility] Draw [address] [place] [address] 10/30/2024 7:00 AM EST Laboratory Lab Mobile Phlebotomy [facility] [address] [place] [address] M[facility], [facility] Draw [address] [facility] [place] [address] 11/05/2024 7:00 AM EST Laboratory Lab Mobile Phlebotomy [facility] [address] [facility] [place] [address] M[facility], [facility] Draw [address] [facility] [place] [address] 11/12/2024 7:00 AM EST Laboratory Lab Mobile Phlebotomy [facility] [address] [place] [address] Mvmg, [facility]ml [facility] Draw [address] [facility] [place] [address] 11/20/2024 7:00 AM EST Laboratory Lab Mobile Phlebotomy [facility] [address] [facility] [place] [address] Mvmg, [facility] [address] [facility] [place] [address] 11/27/2024 7:00 AM EST Laboratory Lab Mobile Phlebotomy [facility] [address] [facility] [place] [address] M[facility], [facility] [address] [facility] [place] [address] 12/04/2024 7:00 AM EST Laboratory Lab Mobile Phlebotomy [facility] [address] [facility] [place] [address] Mvmg, [facility] Draw [address] [place] [address] 12/11/2024 7:00 AM EST Laboratory Lab Mobile Phlebotomy [facility] [address] [facility] [place] [address] M[facility], [facility] [address] [facility] [place] [address] 12/18/2024 7:00 AM EST Laboratory Lab Mobile Phlebotomy [facility] [address] [facility] [place] [address] M[facility], [facility] Draw [address] [place] [address] 12/24/2024 2:30 PM EST Nurse Only Ancillary [address] [place] [address] [place], Nurse Annual [address] [place] [address] 12/25/2024 7:00 AM EST Laboratory Lab Mobile Phlebotomy [facility] [address] [place] [address] [facility], [facility] [address] [place] [address] 01/01/2025 7:00 AM EST Laboratory Lab Mobile Phlebotomy [facility] [address] [place] [address] Mv[facility], [facility]ml [facility] Draw [address] [place] [address] 01/08/2025 7:00 AM EST Laboratory Lab Mobile Phlebotomy [facility] [address] [place] [address] M[facility], [facility] [address] [place], [place] [address] 01/13/2025 11:40 AM EST Office Visit Family Medicine [address] [place] [phone] Dhruv Moss MD [address] [place] [address] [place] [address] 01/15/2025 7:00 AM EST Laboratory Lab Mobile Phlebotomy [facility] [address] [place] [address] M[facility], [facility] [address] [place] [address] 01/22/2025 7:00 AM EDT Laboratory Lab Mobile Phlebotomy [facility] [address] [place] [address] M[facility], [facility] [address] [place] [address] 01/29/2025 7:00 AM EDT Laboratory Lab Mobile Phlebotomy [facility] [address] [place] [address] Mvmg, Gml [facility] Draw [address] [place] [address] 02/05/2025 7:00 AM EDT Laboratory Lab Mobile Phlebotomy [facility] [address] [place] [address] Mvmg, [facility] [address] [place] [address] 02/12/2025 7:00 AM EDT Laboratory Lab Mobile Phlebotomy [facility] [address] [place] [address] Mvmg, [facility] [address] [place] [address] 02/19/2025 7:00 AM EDT Laboratory Lab Mobile Phlebotomy [facility] [address] [place] [address] Mvmg, [facility]ml [facility] [address] [place] [address] 02/26/2025 7:00 AM EDT Laboratory Lab Mobile Phlebotomy [facility] [address] [place] [address] Mv[facility], [facility] [address] [place] [address] 03/05/2025 7:00 AM EDT Laboratory Lab Mobile Phlebotomy [facility] [address] [place] [address] Mvmg, [facility] [address] [place] [address] 03/12/2025 7:00 AM EDT Laboratory Lab Mobile Phlebotomy [facility] [address] [place] [address] Mvmg, [facility] [address] [place] [address] 03/19/2025 7:00 AM EDT Laboratory Lab Mobile Phlebotomy [facility] [address] [facility] [place] [address] Mvmg, [facility]ml [facility] Draw [address] [facility] [place] [address] 03/26/2025 7:00 AM EDT Laboratory Lab Mobile Phlebotomy [facility] [address] [facility] [place] [address] Mvmg, [facility] [address] [facility] [place] [address] 04/02/2025 7:00 AM EDT Laboratory Lab Mobile Phlebotomy [facility] [address] [place] [address] Mvmg, [facility] [address] [place] [address] 04/09/2025 7:00 AM EDT Laboratory Lab Mobile Phlebotomy [facility] [address] [facility] [place] [address] Mvmg, [facility] [address] [place] [address] 04/16/2025 7:00 AM EDT Laboratory Lab Mobile Phlebotomy [facility] [address] [facility] [place] [address] Mv[facility], [facility] [address] [place] [address] 04/23/2025 7:00 AM EDT Laboratory Lab Mobile Phlebotomy [facility] [address] [facility] [place] [address] Mvmg, [facility] [address] [place] [address] 04/30/2025 7:00 AM EDT Laboratory Lab Mobile Phlebotomy [facility] [address] [facility] [place] [address] Mvmg, [facility] [address] [facility] [place] [address] 05/07/2025 7:00 AM EDT Laboratory Lab Mobile Phlebotomy [facility] [address] [facility] [place] [address] Mv[facility], [facility] Draw [address] [place] [address] 05/14/2025 7:00 AM EDT Laboratory Lab Mobile Phlebotomy [facility] [address] [facility] [place] [address] Mvmg, [facility] [address] [facility] [place] [address] 05/21/2025 7:00 AM EDT Laboratory Lab Mobile Phlebotomy [facility] [address] [facility] [place] [address] M[facility], [facility] Draw [address] [facility] [address] [place] [address] 07/21/2025 1:30 PM EDT Imaging Radiology [address] [place] [address] 08/04/2025 1:20 PM EDT Office Visit Family Medicine [address] [place] [phone] Dhruv Moss MD [address] [place] [address] [place] [address] Health Maintenance Due Date Last Done Comments *BISPHONATE OR OTHER ACCEPTABLE MEDICATION NEEDED FOR OSTEOPOROSIS (REFER TO SMARTSET #1146) 11/06/2023 Colonoscopy 05/06/2024 05/06/2019, 05/06/2019 CKD PHOS USE SMARTSET 01167 06/07/202405/14, 05/31/2023, 05/08/2023, Additional history exists COVID-19 [...] Additional history exists CKD HGB USE SMARTSET 29731 08/21/202508/21, 08/21/2024, 08/14/2024, Additional history exists DTap/Tdap Vaccines (3 - Td or Tdap) 11/10/2026 11/10/2016, 03/30/2011 VITAMIN D LEVEL ONCE IN A LIFETIME-USE SMARTSET# 78007 Completed 05/11/2015 RETIRED - COLONOSCOPY-EVERY 5 YRS [...] this encounter Medical Devices Implanted Type Area Associate Media Director Device Identifier Shelf Expiration Date Model / Serial / Lot Port Pwr Mri Isp Profile - [id number] Implanted:Qty: 1 on 07/24/2020 by Akash Castillo MD at [facility] Right: Chest CR BARD : PERIPHERAL VASCULAR 04/12/2021 [id number] / / [id number] documented as of this encounter Advance Directives [...] Adult Child Health Care Agent Care Teams Television Audio Engineer Relationship Specialty Start Date End Date Dhruv Moss MD [address] [place], [place] [address] [address] PCP - General Family Medicine 08/27/21 documented as of this encounter
--- OUTSIDE RECORDS SUMMARY | 2024-10-10 00:32 | External Medical Summary | Summary of Care ---
Author Name Unknown Organization [facility] [address] [facility] [address] Phone [phone] Care Team Providers Care Client Development Consultant Name Role Phone Dhruv Moss MD Primary Care Provide r Encounter Details Date Type Department Care Team (Late st Contact Info) Description 08/15/2024 Result Scan Unspecified Department Jitendra Aguero MD [address] [facility] [id number] <No scans attached> Allergies No known active allergiesdocumented as of this encounter (statuses as of 08/16/2024) Medications Medication Sig Dispensed Refills Start Date [...] chew 90 Capsule 1 04/01/2024 Active Pen [place] 32G X 4 MM Use as directed. [...] 24 Hour (Imdur)Indications:C oronary artery disease involving [place] coronary artery of [place] heart without angina pectoris,HTN, goal below 140/90 [...] goal of less than 8.0% ([facility]) Use to test blood sugar three times a day DXe11.9 300 Each 3 07/22/2024 Active Insulin Glargine Solostar 100 UNIT/ML Subcutaneous Solution Pen-injector (Lantus SoloStar) Inject 16 Units under the skin in the morning. 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 Date of Transplant: 09/01/2021 Conditioning Regimen: Fludarabine / Busulfan 2 with post-transplant Cytoxan ABO/Rh: A Positive CMV status: CMV Positive--- GRID: [id number] / DID: [id number] Matched Unrelated 10/24--- DPB1 Match ABO/Rh: A [...] Thrombocytopenia 12/06/2022 Last Assessment & Plan: Platelets 31084 on 03/20 Questionable hematuria Urinary incontinence 09/12/2022 [...] failure. Does not have any evidence of avhkp-jlixzd-rfat disease Last Assessment & Plan: Continues to [...] -continue venlafaxine Coronary artery disease invo lving [place] coronary artery of [place] heart without angina pectoris 06/12/2017 Overview: S/P EDIL to LAD on 06/12/17 Last Assessment & Plan: No angina - Continue atorvastatin, isosorbide, metoprolol - no ASA due to thrombocytopenia Dyslipidemia, goal LDL below 70 11/25/2011 Last Assessment & Plan: Patient having no issues. She continues on Lipitor 40 mg daily Last lab I will was that I can find were from [phone] Assessment/plan: Dyslipidemia with patient currently taking Lipitor [...] as of this encounter (statuses as of 08/16/2024) Resolved Problems Problem Noted Date Diagnosed Date [...] as of this encounter (statuses as of 08/16/2024) Immunizations Name Administration Dates Next Due COVID-19 mRNA, LNP-s, No Pre serve, 2-Dose Series ([employer] [facility]) 02/05/2021,01/08/2021 COVID-19, LNP-s, No Preserve , Ye-sucrose, [...] Care Team (Late st Contact Info) Description 08/21/2024 7:00 AM EDT Laboratory [facility] [address] [place] [address] [facility] [address] [place] [address] 08/27/2024 1:00 PM EDT Office Visit Pharmacy, [address] [place] [address] [place] [address] 08/28/2024 7:00 AM EDT Laboratory [facility] [address] [place] [address] [facility] [address] [place] [address] [address] 08/28/2024 1:45 PM EDT Office Visit Ophthalmology, [facility] [address] [place] [address] Fernando Damon DO [address] [place] [address] 08/29/2024 11:00 AM EDT Home Visit terrenceer at [facility] [address] [place] [address] Tremaine Morgan PA-C [address] [place] [address] 09/04/2024 7:00 AM EDT Laboratory [facility] [address] [place] [address] [facility] [address] [place] [address] 09/11/2024 7:00 AM EDT Laboratory [facility] [address] [place] [address] [facility] [address] [place], [place] [address] 09/18/2024 7:00 AM EST Laboratory [facility] [address] [place], [place] [address] [facility] [address] [place] [address] 09/25/2024 7:00 AM EST Laboratory [facility] [address] [place], [place] [address] [facility] [address] [facility] [place], [place] [address] 10/02/2024 7:00 AM EST Laboratory [facility] [address] [place] [address] [facility] [address] [facility] [place], [place] [address] 10/08/2024 10:00 AM EST Home Visit [facility] [address] [facility] [place] [address] Marisa Pacheco, TANYA [address] [facility] [place] [address] 10/09/2024 7:00 AM EST Laboratory [facility] [address] [place], [place] [address] [facility], [facility] [address] [facility] [place] [address] 10/16/2024 7:00 AM EST Laboratory [facility] [address] [place], [place] [address] [facility] [address] [place], [place] [address] 10/16/2024 1:45 PM EST Office Visit Hematology/Oncology [facility] [address] [place] [id number] Jitendra Aguero MD [address] [place] [address] 2024 7:00 AM EST Laboratory Lab [facility] [address] [facility] [place] [address] Mvmg, G[facility] Draw [address] [facility] [place] [address] 10/30/2024 7:00 AM EST Laboratory Lab [facility] [address] [place] [address] Mvmg, [facility] Draw [address] [facility] [place] [address] 11/05/2024 7:00 AM EST Laboratory Lab [facility] [address] [place] [address] M[facility], [facility] Draw [address] [facility] [place] [address] 11/12/2024 7:00 AM EST Laboratory Lab [facility] [address] [facility] [place] [address] Mvmg, [facility] [address] [facility] [place] [address] 11/20/2024 7:00 AM EST Laboratory Lab [facility] [address] [place] [address] Mvmg, [facility] Draw [address] [facility] [place] [address] 11/27/2024 7:00 AM EST Laboratory Lab [facility] [address] [place] [address] Mv[facility], [facility]ml [facility] Draw [address] [place] [address] 12/04/2024 7:00 AM EST Laboratory [facility] [address] [place] [address] M[facility], [facility] Draw [address] [place], [place] [address] 12/11/2024 7:00 AM EST Laboratory Lab [facility]lebot[facility] [address] [place] [address] Mv[facility], [facility] Draw [address] [place] [address] 12/18/2024 7:00 AM EST Laboratory Lab [facility] [address] [place] [address] M[facility] [address] [place] [address] 12/24/2024 2:30 PM EST Nurse Only Ancillary [address] [place] [address] [place], Nurse [address] [place] [address] 12/25/2024 7:00 AM EST Laboratory Lab [facility] [address] [place] [address] Mvmg, Gml [facility] Draw [address] [place] [address] 01/01/2025 7:00 AM EST Laboratory [facility] [address] [place] [address] [address] Mvmg, [facility] [address] [place], [place] [address] 01/08/2025 7:00 AM EST Laboratory [facility] [address] [place], [place] [address] Mv[facility], [facility] [address] [place], [place] [address] 01/13/2025 11:40 AM EST Office Visit Family Medicine [address] [place] [phone] Dhruv Moss MD [address] [place] [address] [place] [address] 01/15/2025 7:00 AM EST Laboratory [facility] [address] [place] [address] Mvmg, [facility] [address] [facility] [place] [address] 01/22/2025 7:00 AM EDT Laboratory Lab [facility] [address] [place] [address] Mvmg, [facility] [address] [facility] [place] [address] 01/29/2025 7:00 AM EDT Laboratory Lab [facility]lebot[facility] [address] [place] [address] Mvmg, Gml [facility] [address] [place] [address] 02/05/2025 7:00 AM EDT Laboratory Lab [facility] [address] [place] [address] Mvmg, Gml [facility] [address] [facility] [place] [address] 02/12/2025 7:00 AM EDT Laboratory Lab [facility] [address] [facility] [place] [address] Mvmg, Gml [facility] [address] [place] [address] 02/19/2025 7:00 AM EDT Laboratory Lab [facility]lebot[facility] [address] [place] [address] Mvmg, Gml [facility] Draw [address] [facility] [place] [address] 02/26/2025 7:00 AM EDT Laboratory Lab [facility] [address] [place] [address] Mvmg, [facility] [address] [place] [address] 03/05/2025 7:00 AM EDT Laboratory Lab [facility]lebot[facility] [address] [place] [address] Mvmg, Gml [facility] [address] [place] [address] 03/12/2025 7:00 AM EDT Laboratory Lab [facility] [address] [place] [address] Mvmg, [facility] [address] [place] [address] 03/19/2025 7:00 AM EDT Laboratory Lab [facility] Phlebot[facility] [address] [place] [address] Mvmg, [facility] [address] [place] [address] 03/26/2025 7:00 AM EDT Laboratory Lab [facility]le[facility] [address] [place] [address] Mvmg, [facility]ml [facility] [address] [place] [address] 04/02/2025 7:00 AM EDT Laboratory Lab [facility] [address] [place] [address] Mvmg, Gml [facility] [address] [place] [address] 04/09/2025 7:00 AM EDT Laboratory Lab [facility]lebotomy [facility] [address] [place] [facility] [place] [address] Mvmg, Gml [facility] Draw [address] [place] [address] 04/16/2025 7:00 AM EDT Laboratory Lab [facility] [address] [facility] [place] [address] Mvmg, [facility] [address] [facility] [place] [address] 04/23/2025 7:00 AM EDT Laboratory Lab [facility] [address] [place] [address] Mvmg, Gml [facility] Draw [address] [facility] [place] [address] 04/30/2025 7:00 AM EDT Laboratory Lab [facility]lebot[facility] [address] [place], [place] [address] Mv[facility], [facility] Draw [address] [place] [address] 05/07/2025 7:00 AM EDT Laboratory Lab [facility]le[facility] [address] [place] [address] Mvmg, Gml [facility] Draw [address] [place] [address] 05/14/2025 7:00 AM EDT Laboratory Lab [facility] [address] [place], [place] [address] Mvmg, G[facility] Draw [address] [place] [address] 05/21/2025 7:00 AM EDT Laboratory Lab [facility]lebot[facility] [address] [place], [place] [address] Mv[facility], G[facility] Draw [address] [facility] [place] [address] 07/21/2025 1:30 PM EDT Imaging Radiology [address] [place] [address] 08/04/2025 1:20 PM EDT Office Visit Family Medicine [address] [place] [phone] Dhruv Moss MD [address] [place] [address] [place] [address] Health Maintenance Due Date Last Done Comments *BISPHONATE OR OTHER ACCEPTABLE MEDICATION NEEDED FOR OSTEOPOROSIS (REFER TO SMARTSET #1146) 11/06/2023 Colonoscopy 05/06/2024 05/06/2019, 05/06/2019 CKD PHOS USE SMARTSET 46233 06/07/202405/14 04/2023, 05/31/2023, 05/08/2023, Additional history exists COVID-19 [...] Additional history exists CKD HGB USE SMARTSET 69554 08/14/202508/14, 08/14/2024, 08/07/2024, Additional history exists DTap/Tdap Vaccines (3 - Td or Tdap) 11/10/2026 11/10/2016, 03/30/2011 VITAMIN D LEVEL ONCE IN A LIFETIME-USE SMARTSET# 35036 Completed 05/11/2015 RETIRED - COLONOSCOPY-EVERY 5 YRS [...] this encounter Medical Devices Implanted Type Area Psychologist Experimental Device Identifier Shelf Expiration Date Model / Serial / Lot Port Pwr Mri Isp Profile - [id number] Implanted:Qty: 1 on 07/24/2020 by Akash Castillo MD at OR [facility] Right: Chest CR BARD : PERIPHERAL VASCULAR 04/12/2021 [id number] / / [id number] documented as of this encounter Procedures Procedure Name Priority Date/Time Associated Diagnosis Comments OUTSIDE LAB RESULTS 08/15/2024 documented in this encounter Results * OUTSIDE LAB RESULTS (08/15/2024) 08/15/2024 Jitendra Aguero MD LABORATORY documented in this [...] Agents on File Name Relationship Healthcare Agent [facility] p Communication Juanita Silva Adult Child Health Care Agent Care Teams Client Development Consultant Relationship Specialty Start Date End Date Dhruv Moss MD [address] [place], [place] [address] [address] PCP - General Family Medicine 08/27/21 documented as of this encounter
--- OUTSIDE RECORDS SUMMARY | 2024-10-10 00:32 | External Medical Summary ---
Author Name Unknown Address Unknown Organization K01:LABORATORY [facility] - [address] [facility] [place] [address] Laboratory Report Ordering Provider Test Date Status ANN MUGNUIA 08/14/2024 14:09:34 Final Albumin slide made.
<br/ >null Observation Date Value Abnormality Reference (Units ) Status SYNC LEUKOCYTES IN BLOOD BY AUTOMATED COUNT 08/14/2024 14:09:34 20.25 Above high normal 4.00-10.80 (K/uL) Final Neutrophils/100 leukocytes in Blood by Manual count 08/14/2024 14:09:34 29.0 Below low normal 40.0-75.0 (%) Final Lymphocytes/100 leukocytes in Blood by Manual count 08/14/2024 14:09:34 40.0 18.0-42.0 (%) Final Monocytes/100 leukocytes in Blood by Manual count 08/14/2024 14:09:34 5.0 1.0-11.0 (%) Final Eosinophils/100 leukocytes in Blood by Manual count 08/14/2024 14:09:34 3.0 0.0-6.0 (%) Final Basophils/100 leukocytes in Blood by Manual count 08/14/2024 14:09:34 1.0 0.0-2.0 (%) Final Metamyelocytes/100 leukocytes in Blood by Manual count 08/14/2024 14:09:34 1.0 Above high normal <=0.0 (%) Final Myelocytes/100 leukocytes in Blood by Manual count 08/14/2024 14:09:34 3.0 Above high normal <=0.0 (%) Final Blasts/100 leukocytes in Blood by Manual count 08/14/2024 14:09:34 18.0 Above high normal <=0.0 (%) Final Neutrophils [#/volume] in Blood by Manual count 08/14/2024 14:09:34 5.87 1.80-7.70 (K/uL) Final Lymphocytes [#/volume] in Blood by Manual count 08/14/2024 14:09:34 8.10 Above high normal 1.00-4.80 (K/uL) Final Monocytes [#/volume] in Blood by Manual count 08/14/2024 14:09:34 1.01 0.00-1.10 (K/uL) Final Eosinophils [#/volume] in Blood by Manual count 08/14/2024 14:09:34 0.61 0.00-0.70 (K/uL) Final Basophils [#/volume] in Blood by Manual count 08/14/2024 14:09:34 0.20 0.00-0.20 (K/uL) Final Metamyelocytes [#/volume] in Blood by Manual count 08/14/2024 14:09:34 0.20 Above high normal <=0.00 (K/uL) Final Myelocytes [#/volume] in Blood by Manual count 08/14/2024 14:09:34 0.61 Above high normal <=0.00 (K/uL) Final Blasts [#/volume] in Blood by Manual count 08/14/2024 14:09:34 3.65 Above high normal <=0.00 (K/uL) Final Neutrophils.agranular [Presence] in Blood by Light microscopy 08/14/2024 14:09:34 Present Abnormal None Seen Final Performing Location LABORATORY [facility] - [address] [facility] [address]
--- OUTSIDE RECORDS SUMMARY | 2024-10-10 00:32 | External Medical Summary | Summary of Care ---
Author Name Unknown Organization [facility] Address [address] [facility] [place] [address] Phone [phone] Care Team Providers Care Merchant Seaman Name Role Phone Dhruv Moss MD Primary Care Provide r Reason for Visit * Reason Comments Outpatient Testing Encounter Details Date Type Department Care Team (Late st Contact Info) Description 08/14/2024 2:10 PM EDT Laboratory Laboratory [address] [place] [phone] [place] [address] MDS (myelodysplastic syndrome), high grade (HCC) Allergies No known active allergiesdocumented as of this encounter (statuses as of 08/14/2024) Medications Medication Sig Dispensed Refills Start Date End Date Status Diclofenac Sodium 1 % External GelIndications:knee pain Apply topically to affected area . Apply to bilateral knees Active Prochlorperazine Maleate 10 MG Oral Tablet (Compazine)Indicatio ns:H/O allogeneic bone marrow transplant (HCC) Take by mouth 1 Tablet every 6 hours as needed for Nausea. 60 Tablet 3 12/09/2021 Active [facility] Flex System w/Device Kit Use as directed [...] chew 90 Capsule 1 04/01/2024 Active Pen [place] 32G X 4 MM Use as directed. 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 Date of Transplant: 09/01/2021 Conditioning Regimen: Fludarabine / Busulfan 2 with post-transplant Cytoxan ABO/Rh: A Positive CMV status: CMV Positive--- GRID: [id number] / DID: [id number] Matched Unrelated 10/24--- DPB1 Match ABO/Rh: A [...] Thrombocytopenia 12/06/2022 Last Assessment & Plan: Platelets 57840 on 03/20 Questionable hematuria Urinary incontinence 09/12/2022 [...] failure. Does not have any evidence of [id number] disease Last Assessment & Plan: Continues to [...] was that I can find were from [id number] Assessment/plan: Dyslipidemia with patient currently taking Lipitor [...] as of this encounter (statuses as of 08/14/2024) Resolved Problems Problem Noted Date Diagnosed Date [...] as of this encounter (statuses as of 08/14/2024) Immunizations Name Administration Dates Next Due COVID-19 mRNA, LNP-s, No Pre serve, 2-Dose Series (Produce Run) 02/05/2021,01/08/2021 COVID-19, LNP-s, No Preserve , Ye-sucrose, [...] No 08/13/2024 Does the household have a [facility] hospit[facility] source of income? (Household - [...] EDT Laboratory Lab [facility] [address] [place] [address] [facility] [address] [employer] [employer] [place] [address] 08/27/2024 1:00 PM EDT Office Visit Pharmacy, [address] [place] [address] [place] [address] 08/28/2024 7:00 AM EDT Laboratory [facility] [address] [employer] [employer] [place] [address] [facility] [address] [employer] [place] [address] 08/28/2024 1:45 PM EDT Office Visit Ophthalmology, [facility] [address] [place] [address] Fernando Damon, DO [address] [place] [address] 08/29/2024 11:00 AM EDT [facility] [address] [place] [address] Tremaine Morgan PA-C [address] [place] [address] 09/04/2024 7:00 AM EDT Laboratory Lab [facility] [address] [employer] [place] [address] [facility] [address] [place] [address] 09/11/2024 7:00 AM EDT Laboratory Lab [facility] [address] [place] [address] [facility] [address] [place] [address] 09/18/2024 7:00 AM EST Laboratory [facility] [address] [place] [address] [facility] [address] [place] [address] 09/25/2024 7:00 AM EST Laboratory Lab [facility] [address] [place] [address] [facility] [address] [place] [address] 10/02/2024 7:00 AM EST Laboratory Lab [facility] [address] [place] [address] [facility] [address] [place] [address] 10/08/2024 10:00 AM EST [facility] [address] [facility] [place] [address] Marisa Pacheco RN 132 [facility] [place] [address] 10/09/2024 7:00 AM EST Laboratory Lab [facility] [address] [place] [address] M[facility] [address] [place] [address] 10/16/2024 7:00 AM EST Laboratory Lab [facility] [address] [place] [address] [facility] [address] [place] [address] 10/16/2024 1:45 PM EST Office Visit Hematology/Oncology [facility] [place] [address] [facility] [place] [phone] Jitendra Aguero MD [address] [place] [address] 2024 7:00 AM EST Laboratory [facility] [address] [place] [address] M[facility] [address] [place] [address] 10/30/2024 7:00 AM EST Laboratory Lab [facility] [address] [place] [address] Mv[facility], [facility] Draw [address] [place] [address] 11/05/2024 7:00 AM EST Laboratory Lab [facility] [address] [place] [address] Mvmg, [facility] Draw [address] [place] [address] 11/12/2024 7:00 AM EST Laboratory Lab [facility] [address] [place] [address] Mv[facility], [facility] Draw [address] [place] [address] 11/20/2024 7:00 AM EST Laboratory Lab [facility] [address] [place] [address] M[facility], [facility] [address] [place] [address] 11/27/2024 7:00 AM EST Laboratory Lab [facility] [address] [place] [address] Mv[facility], [facility] Draw [address] [place] [address] 12/04/2024 7:00 AM EST Laboratory [facility] [address] [place] [address] M[facility] [address] [place] [address] 12/11/2024 7:00 AM EST Laboratory [facility] [address] [place] [address] Mvmg, [facility] Draw [address] [facility] [place] [address] 12/18/2024 7:00 AM EST Laboratory [facility] [address] [place] [address] M[facility], [facility] [address] [place] [address] 12/24/2024 2:30 PM EST Nurse Only Ancillary [address] [place] [address] [place], Nurse [address] [place] [address] 12/25/2024 7:00 AM EST Laboratory [facility] [address] [place] [address] M[facility], [facility] [address] [place] [address] 01/01/2025 7:00 AM EST Laboratory Lab [facility] [address] [place] [address] M[facility], [facility] [address] [place] [address] 01/08/2025 7:00 AM EST Laboratory Lab [facility] [address] [place] [address] M[facility], [facility] [address] [place] [address] 01/13/2025 11:40 AM EST Office Visit Family Medicine [address] [place] [phone] Dhruv Moss MD [address] [place] [address] [place] [address] 01/15/2025 7:00 AM EST Laboratory [facility] [address] [place], [place] [address] [facility] [address] [employer] [place], [place] [address] 01/22/2025 7:00 AM EDT Laboratory Lab [facility] [address] [employer] [place], [place] [address] M[facility], [facility] [address] [employer] [place], [place] [address] 01/29/2025 7:00 AM EDT Laboratory Lab [facility] [address] [employer] [place], [place] [address] M[facility], [facility] Draw [address] [place] [address] 02/05/2025 7:00 AM EDT Laboratory Lab [facility] [address] [place], [place] [address] Mv[facility], [facility] Draw [address] [place] [address] 02/12/2025 7:00 AM EDT Laboratory Lab [facility] [address] [place] [address] Mvmg, [facility] Draw [address] [place] [address] 02/19/2025 7:00 AM EDT Laboratory Lab [facility] [address] [place] [address] M[facility], [facility] Draw [address] [place] [address] 02/26/2025 7:00 AM EDT Laboratory Lab [facility] [address] [place] [address] M[facility], [facility] [address] [place] [address] 03/05/2025 7:00 AM EDT Laboratory Lab [facility]bot[facility] [address] [place] [address] M[facility], [facility] Draw [address] [place] [address] 03/12/2025 7:00 AM EDT Laboratory Lab [facility] [address] [place] [address] M[facility], [facility] [address] [place] [address] 03/19/2025 7:00 AM EDT Laboratory Lab [facility] [address] [place] [address] M[facility], [facility] [address] [place] [address] 03/26/2025 7:00 AM EDT Laboratory Lab [facility] [address] [place] [address] M[facility] [address] [place] [address] 04/02/2025 7:00 AM EDT Laboratory Lab [facility] [address] [place] [address] M[facility], [facility] [address] [place] [address] 04/09/2025 7:00 AM EDT Laboratory Lab [facility] [address] [place] [address] Mvmg, [facility] Draw [address] [place] [address] 04/16/2025 7:00 AM EDT Laboratory Lab [facility] [address] [place] [address] Mv[facility], [facility] Draw [address] [place] [address] 04/23/2025 7:00 AM EDT Laboratory Lab [facility] [address] [place] [address] Mvmg, [facility] Draw [address] [employer] [place], [place] [address] 04/30/2025 7:00 AM EDT Laboratory Lab [facility] [address] [place] [address] Mvmg, [facility] Draw [address] [place] [address] 05/07/2025 7:00 AM EDT Laboratory Lab [facility]lebot[facility] [address] [employer] [place], [place] [address] Mvmg, [facility] Draw [address] [place] [address] 05/14/2025 7:00 AM EDT Laboratory Lab [facility] Phlebotomy [facility] [address] [place] [address] Mvmg, Gml [facility] Draw [address] [place] [address] 05/21/2025 7:00 AM EDT Laboratory Lab [facility] Phlebot[facility] [address] [place] [address] Mv[facility], [facility] Draw [address] [place] [address] 07/21/2025 1:30 PM EDT Imaging Radiology [address] [place] [address] 08/04/2025 1:20 PM EDT Office Visit Family Medicine [address] [place] [phone] Dhruv Moss MD [address] [place] [address] [place] [address] Pending Results Name Type Priority Associated Diagnoses Date /Time CBC WITH WBC DIFFERENTIAL Lab STAT MDS (myelodysplastic syndrome), high grade (HCC) 08/14/2024 2:09 PM EDT CBC Lab STAT MDS (myelodysplastic syndrome), high grade (HCC) 08/14/2024 2:09 PM EDT DIFFERENTIAL, AUTOMATED Lab STAT MDS (myelodysplastic syndrome), high grade (HCC) 08/14/2024 2:09 PM EDT Health Maintenance Due Date Last Done Comments *BISPHONATE OR OTHER ACCEPTABLE MEDICATION NEEDED FOR OSTEOPOROSIS (REFER TO SMARTSET #1146) 11/06/2023 Colonoscopy 05/06/2024 05/06/2019, 05/06/2019 CKD PHOS USE SMARTSET 09202 06/07/2024 0704/2023, 05/31/2023, 05/08/2023, Additional history exists [...] Additional history exists CKD HGB USE SMARTSET 98432 08/07/202508/07, 08/07/2024, 07/31/2024, Additional history exists DTap/Tdap Vaccines (3 - Td or Tdap) 11/10/2026 11/10/2016, 03/30/2011 VITAMIN D LEVEL ONCE IN A LIFETIME-USE SMARTSET# 55618 Completed 05/11/2015 RETIRED - COLONOSCOPY-EVERY 5 YRS [...] this encounter Medical Devices Implanted Type Area Farmer [employer] Device Identifier Shelf Expiration Date Model / Serial / Lot Port Pwr Mri Isp Profile - [id number] Implanted:Qty: 1 on 07/24/2020 by Akash Castillo MD at [facility] Right: Chest CR BARD : PERIPHERAL VASCULAR 04/12/2021 [id number] / / [id number] documented as of this encounter Visit Diagnoses Diagnosis MDS (myelodysplastic syndrome), high grade (HCC) High grade myelodysplastic syndrome lesions Screening mammogram for breast cancer documented in [...] Healthcare Agent [facility] p Communication [facility] Child Health Care Agent Care Teams Merchant Seaman Relationship Specialty Start Date End Date Dhruv Moss MD [address] [place] [address] [place] [address] PCP - General Family Medicine 08/27/21 documented as of this encounter
--- OUTSIDE RECORDS SUMMARY | 2024-10-10 00:32 | External Medical Summary | Summary of Care ---
Author Name Unknown Organization [facility] [address] [address] Phone [phone] Care Team Providers Care Perpetual Inventory Clerk Name Role Phone Dhruv Moss MD Primary Care Provide r Reason for Visit * Reason Onset Date Comments Test Results Lab 08/15/2024 Hgb/Plts Encounter Details Date Type Department Care Team (Late st Contact Info) Description 08/15/2024 Telephone Hematology/Oncology Joanie [place] [address] [place] [phone] Jitendra Aguero MD [address] [place] [address] Test Results Lab (Hgb/Plts) Allergies No known active allergiesdocumented as of this encounter (statuses as of 08/15/2024) Medications Medication Sig Dispensed Refills Start Date End Date Status Diclofenac Sodium 1 % External GelIndications:knee pain Apply topically to affected area . Apply to bilateral knees Active Prochlorperazine Maleate 10 MG Oral Tablet (Compazine)Indicatio ns:H/O allogeneic bone marrow transplant (HCC) Take by mouth 1 Tablet every 6 hours as needed for Nausea. 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 Date of Transplant: 09/01/2021 Conditioning Regimen: Fludarabine / Busulfan 2 with post-transplant Cytoxan ABO/Rh: A Positive CMV status: CMV Positive--- GRID: [id number] / DID: [id number] Matched Unrelated 10/24--- DPB1 Match ABO/Rh: A [...] Thrombocytopenia 12/06/2022 Last Assessment & Plan: Platelets [address]803 on 03/20 Questionable hematuria Urinary incontinence 09/12/2022 [...] failure. Does not have any evidence of jffui-vunbem-ykjq disease Last Assessment & Plan: Continues to [...] -continue venlafaxine Coronary artery disease invo lving chemehuevi coronary artery of chemehuevi heart without angina pectoris 06/12/2017 Overview: S/P EDIL to LAD on 06/12/17 Last Assessment & Plan: No angina - Continue atorvastatin, isosorbide, metoprolol - no ASA due to thrombocytopenia Dyslipidemia, goal LDL below 70 11/25/2011 Last Assessment & Plan: Patient having no issues. She continues on Lipitor 40 mg daily Last lab I will was that I can find were from [phone] Assessment/plan: Dyslipidemia with patient currently taking Lipitor [...] as of this encounter (statuses as of 08/15/2024) Resolved Problems Problem Noted Date Diagnosed Date [...] as of this encounter (statuses as of 08/15/2024) Immunizations Name Administration Dates Next Due COVID-19 mRNA, LNP-s, No Pre serve, 2-Dose Series ([employer]) 02/05/2021,01/08/2021 COVID-19, LNP-s, No Preserve [...] Telephone Encounter - Makenzie Barth LPN - 08/15/2024 8:02 AM EDT Juanita, daughter states she will be away for 2 weeks with a 6 hour time difference. She is requesting the office to call her with the time difference in mind. She states if unable to reach herself or the patient at home (use 's number), Please call her her friend Mayuri Mir at [phone] to relay transfusion appointments. Friend will then contact patient. Daughter states she will return to the [facility] on 08/31/2024. Patient to receive 1 unit of prbc and 1 unit of platelets. Called [facility] blood bank. Spoke with Kaleb. Spoke with Arlin in [place]. Called [facility] central scheduling. Patient scheduled for 08/15/2024 at 8:11 am. Patient verbalized understanding of appt time. Faxed order to [facility]/ blood bank. documented in this encounter Plan of Treatment Upcoming Encounters Date Type Department Care Team (Late st Contact Info) Description 08/21/2024 7:00 AM EDT Laboratory Lab Mobile Phlebotomy [facility] [address] [place] [address] [facility], [facility] Draw [address] [place] [address] 08/27/2024 1:00 PM EDT Office Visit Pharmacy, [address] [place] [address] [place] [address] 08/28/2024 7:00 AM EDT Laboratory Lab Mobile Phlebotomy [facility] [address] [facility] [place] [address] [facility], [facility] Draw [address] [facility] [place] [address] 08/28/2024 1:45 PM EDT Office Visit Ophthalmology, [facility] [address] [place] [address] Fernando Damon, [address] [place] [address] 08/29/2024 11:00 AM EDT Home Visit [facility] [place], [facility] [address] [place] [address] Tremaine Morgan PA-C [address] [place] [address] 09/04/2024 7:00 AM EDT Laboratory Lab Mobile Phlebotomy [facility] [address] [facility] [place] [address] M[facility], [facility] Draw [address] [facility] [place] [address] 09/11/2024 7:00 AM EDT Laboratory Lab Mobile Phlebotomy [facility] [address] [facility] [place] [address] Mv[facility], G[facility] Draw [address] [facility] [place] [address] 09/18/2024 7:00 AM EST Laboratory Lab Mobile Phlebotomy [facility] [address] [facility] [address] Mvmg, Gml [facility] Draw [address] [place] [address] 09/25/2024 7:00 AM EST Laboratory Lab Mobile Phlebotomy [facility] [address] [facility] [place] [address] M[facility], [facility] Draw [address] [facility] [place] [address] 10/02/2024 7:00 AM EST Laboratory Lab Mobile Phlebotomy [facility] [address] [facility] [place] [address] [facility], [facility] Draw [address] [place] [address] 10/08/2024 10:00 AM EST [facility] Visit [facility], [facility] [place] [address] Marisa Pacheco RN [address] [facility] [place] [address] 10/09/2024 7:00 AM EST Laboratory Lab Mobile Phlebotomy [facility] [address] [employer] [employer] [place] [address] [facility], G[facility] Draw [address] [place] [address] 10/16/2024 7:00 AM EST Laboratory Lab Mobile Phlebotomy [facility] [address] [facility] [place] [address] M[facility], [facility] Draw [address] [place] [address] 10/16/2024 1:45 PM EST Office Visit Hematology/Oncology [facility] [place] [facility] [place], [place] [phone] Jitendra Aguero MD [address] [facility] [place], [place] [address] 2024 7:00 AM EST Laboratory Lab Mobile Phlebotomy [facility] [address] [facility] [address] [place] [address] M[facility], [facility] Draw [address] [place] [address] 10/30/2024 7:00 AM EST Laboratory Lab Mobile Phlebotomy [facility] [address] [place] [address] Mvmg, Gml [facility] Draw [address] [place] [address] 11/05/2024 7:00 AM EST Laboratory Lab Mobile Phlebotomy [facility] [address] [place] [address] Mvmg, Gml [facility] Draw [address] [place] [address] 11/12/2024 7:00 AM EST Laboratory Lab Mobile Phlebotomy [facility] [address] [place] [address] Mvmg, Gml [facility] Draw [address] [place] [address] 11/20/2024 7:00 AM EST Laboratory Lab Mobile Phlebotomy [facility] [address] [place] [address] Mvmg, Gml [facility] Draw [address] [place] [address] 11/27/2024 7:00 AM EST Laboratory Lab Mobile Phlebotomy [facility] [address] [place] [address] Mvmg, Gml [facility] Draw [address] [place] [address] 12/04/2024 7:00 AM EST Laboratory Lab Mobile Phlebotomy [facility] [address] [place] [address] Mvmg, Gml [facility] Draw [address] [place] [address] 12/11/2024 7:00 AM EST Laboratory Lab Mobile Phlebotomy [facility] [address] [place] [address] Mvmg, Gml [facility] Draw [address] [place] [address] 12/18/2024 7:00 AM EST Laboratory Lab Mobile Phlebotomy [facility] [address] [place] [address] Mvmg, Gml [facility] Draw [address] [place] [address] 12/24/2024 2:30 PM EST Nurse Only Ancillary [address] [place] [address] Cristina, Nurse Annual [facility]ness [address] [place] [address] [place] [address] 12/25/2024 7:00 AM EST Laboratory Lab Mobile Phlebotomy [facility] [address] [place] [address] M[facility], Gml [facility] Draw [address] [place] [address] 01/01/2025 7:00 AM EST Laboratory Lab Mobile Phlebotomy [facility] [address] [place] [address] [address] Mvmg, [facility] Draw [address] [place] [address] [address] 01/08/2025 7:00 AM EST Laboratory Lab Mobile Phlebotomy [facility] [address] [place] [address] [address] M[facility]mg, [facility] Draw [address] [place] [address] 01/13/2025 11:40 AM EST Office Visit Family Medicine [address] [place] [phone] Dhruv Moss MD [address] [place] [address] [place] [address] 01/15/2025 7:00 AM EST Laboratory Lab Mobile Phlebotomy [facility] [address] [place] [address] M[facility]mg, [facility] [address] [place] [address] 01/22/2025 7:00 AM EDT Laboratory Lab Mobile Phlebotomy [facility] [address] [place] [address] [address] M[facility], [facility] Draw [address] [place], [place] [address] 01/29/2025 7:00 AM EDT Laboratory Lab Mobile Phlebotomy [facility] [address] [place] [address] [address] Mvmg, Gml [facility] Draw [address] [place] [address] 02/05/2025 7:00 AM EDT Laboratory Lab Mobile Phlebotomy [facility] [address] [facility] [address] Mvmg, Gml [facility] Draw [address] [place] [address] 02/12/2025 7:00 AM EDT Laboratory Lab Mobile Phlebotomy [facility] [address] [facility] [place] [address] Mvmg, Gml [facility] Draw [address] [place] [address] 02/19/2025 7:00 AM EDT Laboratory Lab Mobile Phlebotomy [facility] [address] [place] [address] Mvmg, Gml [facility] Draw [address] [place] [address] 02/26/2025 7:00 AM EDT Laboratory Lab Mobile Phlebotomy [facility] [address] [employer] [facility] [place] [address] Mvmg, Gml [facility] Draw [address] [place] [address] 03/05/2025 7:00 AM EDT Laboratory Lab Mobile Phlebotomy [facility] [address] [place] [address] Mvmg, Gml [facility] Draw [address] [place] [address] 03/12/2025 7:00 AM EDT Laboratory Lab Mobile Phlebotomy [facility] [address] [facility] [place] [address] Mvmg, Gml [facility] Draw [address] [place] [address] 03/19/2025 7:00 AM EDT Laboratory Lab Mobile Phlebotomy [facility] [address] [facility] [address] Mvmg, Gml [facility] Draw [address] [employer] [facility] [place] [address] 03/26/2025 7:00 AM EDT Laboratory Lab Mobile Phlebotomy [facility] [address] [place] [address] Mvmg, Gml [facility] Draw [address] [place] [address] 04/02/2025 7:00 AM EDT Laboratory Lab Mobile Phlebotomy [facility] [address] [place] [address] Mvmg, Gml [facility] [address] [place] [address] 04/09/2025 7:00 AM EDT Laboratory Lab Mobile Phlebotomy [facility] [address] [place] [address] Mvmg, [facility]ml [facility] [address] [place] [address] 04/16/2025 7:00 AM EDT Laboratory Lab Mobile Phlebotomy [facility] [address] [place] [address] Mvmg, [facility] [address] [place] [address] 04/23/2025 7:00 AM EDT Laboratory Lab Mobile Phlebotomy [facility] [address] [place] [address] Mvmg, [facility] [address] [place] [address] 04/30/2025 7:00 AM EDT Laboratory Lab Mobile Phlebotomy [facility] [address] [place] [address] Mvmg, Gml [facility] [address] [place] [address] 05/07/2025 7:00 AM EDT Laboratory Lab Mobile Phlebotomy [facility] [address] [place] [address] Mvmg, Gml [facility] [address] [place] [address] 05/14/2025 7:00 AM EDT Laboratory Lab Mobile Phlebotomy [facility] [address] [employer] [place] [address] Mvmg, [facility]ml [facility] Draw [address] [place] [address] 05/21/2025 7:00 AM EDT Laboratory Lab Mobile Phlebotomy [facility] [address] [place] [address] [address] M[facility], [facility] [address] [place] [address] [address] 07/21/2025 1:30 PM EDT Imaging Radiology [address] [place] [address] 08/04/2025 1:20 PM EDT Office Visit Family Medicine [address] [place] [phone] Dhruv Moss MD [address] [place] [address] [place] [address] Health Maintenance Due Date Last Done Comments *BISPHONATE OR OTHER ACCEPTABLE MEDICATION NEEDED FOR OSTEOPOROSIS (REFER TO SMARTSET #1146) 11/06/2023 Colonoscopy 05/06/2024 05/06/2019, 05/06/2019 CKD PHOS USE SMARTSET 61217 06/07/2024 0704/2023, 05/31/2023, 05/08/2023, Additional history exists [...] Additional history exists CKD HGB USE SMARTSET 80930 08/14/202508/14, 08/07/2024, 08/07/2024, Additional history exists DTap/Tdap Vaccines (3 - Td or Tdap) 11/10/2026 11/10/2016, 03/30/2011 VITAMIN D LEVEL ONCE IN A LIFETIME-USE SMARTSET# 51314 Completed 05/11/2015 RETIRED - COLONOSCOPY-EVERY 5 YRS [...] this encounter Medical Devices Implanted Type Area Long Wall Shear Operator Device Identifier Shelf Expiration Date Model / Serial / Lot Port Pwr Mri Isp Profile - [id number] Implanted:Qty: 1 on 07/24/2020 by Akash Castillo MD at OR [facility] Right: Chest CR BARD : PERIPHERAL VASCULAR 04/12/2021 [id number] / / [id number] documented as of this encounter Advance Directives [...] Healthcare Agent [facility] p Communication [place] Adult Child Health Care Agent Care Teams Perpetual Inventory Clerk Relationship Specialty Start Date End Date Dhruv Moss MD [address] [place] [id number] PCP - General Family Medicine 08/27/21 documented as of this encounter
--- OUTSIDE RECORDS SUMMARY | 2024-10-10 00:32 | External Medical Summary ---
Author Name Unknown Address Unknown Organization K01:LABORATORY [facility] - [facility] [address] [place] [address] Laboratory Report Ordering Provider Test Date Status ANN MUNGUIA 08/14/2024 14:09:34 Final Observation Date Value Abnormality Reference (Units ) Status WBC, Total 08/14/2024 14:09:34 20.25 Above high normal 4.00-10.80 (K/uL) Final RBC 08/14/2024 14:09:34 2.25 3.85-5.15 (M/uL) Final Hemoglobin 08/14/2024 14:09:34 7.4 Below low normal 12.0-15.3 (g/dL) Final HCT 08/14/2024 14:09:34 22.7 Below low normal 36.0-45.2 (%) Final MCV 08/14/2024 14:09:34 100.9 81.5-97.5 (fL) Final MCH 08/14/2024 14:09:34 32.9 27.0-34.0 (pg) Final MCHC 08/14/2024 14:09:34 32.6 32.0-36.0 (g/dL) Final RDW 08/14/2024 14:09:34 19.4 11.5-15.5 (%) Final Platelets 08/14/2024 14:09:34 3 Below lower panic limits 140-400 (K/uL) Final MPV 08/14/2024 14:09:34 Final No result - abnormal platele t distribution. Nucleated erythrocytes/100 l eukocytes [Ratio] in Blood by Automated count 08/14/2024 14:09:34 0 <=0 (/100 WBCs) Final Performing Location LABORATORY [facility] - [address] [place] [address]
--- OUTSIDE RECORDS SUMMARY | 2024-10-10 00:32 | External Medical Summary ---
Author Name Unknown Address Unknown Organization K01:[facility] [place] [address] 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 See comment. Final Pathologist review of results 08/14/2024 14:09:34 Final Pathologist review of results 08/14/2024 14:09:34 Comment: Blasts are medium to large in size with fine chromatin, nucleoli, and scant cytoplasm. No Lizandro rods present. 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 If concerned for disease progression recommend bone marrow biopsy panel. Final HEMATOLOGY PATHOLOGIST 08/14/2024 14:09:34 Dr. Mervat Rodriguez, Final Performing Location [facility] [place] [address] [facility] [address]
--- OUTSIDE RECORDS SUMMARY | 2024-10-10 00:32 | External Medical Summary | Summary of Care ---
Author Name Unknown Organization [facility] Address [address] [facility] [address] Phone [phone] Care Team Providers Care Distribution Operations Manager Name Role Phone Dhruv Moss MD Primary Care Provide r Encounter Details Date Type Department Care Team (Late st Contact Info) Description 08/19/2024 Telephone Pharmacy, [address] [place] [phone] [facility] [phone] Allergies No known active allergiesdocumented as of this encounter (statuses as of 08/19/2024) Medications Medication Sig Dispensed Refills Start Date [...] chew 90 Capsule 1 04/01/2024 Active Pen [place] 32G X 4 MM Use as directed. [...] both eyes and macular edema, unspecified whether bass singer insulin use (HCC) 1.5 mg PERINEURAL PRN 07/17/2024 07/17/2025 Active documented as of this encounter (statuses as of 08/19/2024) Active Problems Patient Care Coordination No te Formatting of this note migh t be different from the original. Date of Transplant: 09/01/2021 Conditioning Regimen: Fludarabine / Busulfan 2 with post-transplant Cytoxan ABO/Rh: A Positive CMV status: CMV Positive--- GRID: [id number] / DID: [id number] Matched Unrelated 10/24--- DPB1 Match ABO/Rh: A [...] Thrombocytopenia 12/06/2022 Last Assessment & Plan: Platelets 60202 on 03/20 Questionable hematuria Urinary incontinence 09/12/2022 [...] failure. Does not have any evidence of zftgk-iuxanq-onrt disease Last Assessment & Plan: Continues to [...] was that I can find were from [phone] Assessment/plan: Dyslipidemia with patient currently taking Lipitor [...] as of this encounter (statuses as of 08/19/2024) Resolved Problems Problem Noted Date Diagnosed Date [...] as of this encounter (statuses as of 08/19/2024) Immunizations Name Administration Dates Next Due COVID-19 mRNA, LNP-s, No Pre serve, 2-Dose Series (Topic) 02/05/2021,01/08/2021 COVID-19, LNP-s, No Preserve , Ye-sucrose, [...] No 08/13/2024 Does the household have a [facility] source of income? (Household - for ages [...] Makenzie Pool RPh, PharmD Clinical Pharmacist - Content Management Specialist Medication [facility] 08/19/2024, 4:14 PM [phone] documented in this encounter Plan of Treatment Upcoming Encounters Date Type Department Care Team (Late st Contact Info) Description 08/21/2024 7:00 AM EDT Laboratory Lab Mobile Phlebotomy [facility] [address] [place] [address] [facility] [address] [employer] [address] [place] [address] 08/27/2024 1:00 PM EDT Office Visit Pharmacy, [address] [place] [address] [place] [address] 08/28/2024 7:00 AM EDT Laboratory Lab Mobile Phlebotomy [facility] [address] [employer] [address] [employer] [place] [address] [facility] Draw [address] [place] [address] 08/28/2024 1:45 PM EDT Office Visit Ophthalmology, [facility] [address] [place] [address] Fernando Damon, 132 [place] [address] 08/29/2024 11:00 AM EDT [facility] [place] [address] Tremaine Morgan PA-C 132 [facility] [place] [address] 09/04/2024 7:00 AM EDT Laboratory Lab Mobile Phlebotomy [facility] [address] [employer] [address] [employer] [facility], [place] [address] Mv[facility], Gml Mobile Home Draw [address]20 [place] [address] 09/11/2024 7:00 AM EDT Laboratory Lab Mobile Phlebotomy [facility] [address] [employer] [facility] [place], [place] [address] Mvmg, Gml [facility] Draw [address] [place] [address] 09/18/2024 7:00 AM EST Laboratory Lab Mobile Phlebotomy [facility] [address] [employer] [place] [address] Mvmg, Gml [facility] Draw [address]20 [place] [address] 09/25/2024 7:00 AM EST Laboratory Lab Mobile Phlebotomy [facility] [address] [facility] [place] [address] Mv[facility], Gml [facility] Draw [address] [place] [address] 10/02/2024 7:00 AM EST Laboratory Lab Mobile Phlebotomy [facility] [address] [place] [address] M[facility], G[facility] Draw [address] [place] [address] 10/08/2024 10:00 AM EST [facility] [place] [address] Marisa Pacheco, TANYA [address] [place] [address] 10/09/2024 7:00 AM EST Laboratory Lab Mobile Phlebotomy [facility] [address] [place], [place] [address] [facility] [address] [place], [place] [address] 10/16/2024 7:00 AM EST Laboratory Lab Mobile Phlebotomy [facility] [address] [place], [place] [address] [facility], [facility] Draw [address] [place] [address] 10/16/2024 1:45 PM EST Office Visit Hematology/Oncology [facility] [place] 200 [facility] [place] [phone] Jitendra Aguero MD 200 [facility] [place] [address] 2024 7:00 AM EST Laboratory Lab Mobile Phlebotomy [facility] [address] [place] [address] [facility], [facility] Draw [address] [place] [address] 10/30/2024 7:00 AM EST Laboratory Lab Mobile Phlebotomy [facility] [address] [place], [place] [address] Mv[facility], Gml [facility] Draw [address] [place] [address] 11/05/2024 7:00 AM EST Laboratory Lab Mobile Phlebotomy [facility] [address] [place] [address] Mv[facility], [facility] Draw [address] [place] [address] 11/12/2024 7:00 AM EST Laboratory Lab Mobile Phlebotomy [facility] [address] [place] [address] M[facility], [facility] Draw [address] [place] [address] 11/20/2024 7:00 AM EST Laboratory Lab Mobile Phlebotomy [facility] [address] [facility] [place] [address] Mvmg, Gml [facility] Draw [address] [facility] [place] [address] 11/27/2024 7:00 AM EST Laboratory Lab Mobile Phlebotomy [facility] [address] [facility] [place] [address] Mvmg, Gml [facility] Draw [address] [facility] [place] [address] 12/04/2024 7:00 AM EST Laboratory Lab Mobile Phlebotomy [facility] [address] [facility] [place] [address] Mvmg, Gml [facility] Draw [address] [facility] [place] [address] 12/11/2024 7:00 AM EST Laboratory Lab Mobile Phlebotomy [facility] [address] [place] [address] Mvmg, Gml Mobile Home Draw [address] [facility] [place] [address] 12/18/2024 7:00 AM EST Laboratory Lab Mobile Phlebotomy [facility] [address] [place] [address] Mv[facility], G[facility] Draw [address] [facility] [place] [address] 12/24/2024 2:30 PM EST Nurse Only Ancillary [address] [place] [address] [place], Nurse [address] [place] [address] 12/25/2024 7:00 AM EST Laboratory Lab Mobile Phlebotomy [facility] [address] [facility] [place] [address] Mvmg, Gml Mobile Home Draw [address] [facility] [place] [address] 01/01/2025 7:00 AM EST Laboratory Lab Mobile Phlebotomy [facility] [address] [place] [address] Mvmg, Gml [facility] Draw [address] [place], [place] [address] 01/08/2025 7:00 AM EST Laboratory Lab Mobile Phlebotomy [facility] [address] [place], [place] [address] Mv[facility], Gml [facility] Draw [address] [place], [place] [address] 01/13/2025 11:40 AM EST Office Visit Family Medicine [address] [phone] Dhruv Moss MD [address] [place], [place] [address] [address] 01/15/2025 7:00 AM EST Laboratory Lab Mobile Phlebotomy [facility] [address] [place], [place] [address] M[facility], [facility] [address] [place], [place] [address] 01/22/2025 7:00 AM EDT Laboratory Lab Mobile Phlebotomy [facility] [address] [employer] [address] [facility], [facility] Draw [address] [place], [place] [address] 01/29/2025 7:00 AM EDT Laboratory Lab Mobile Phlebotomy [facility] [address] [place], [place] [address] Mv[facility], Gml [facility] Draw [address] [place] [address] 02/05/2025 7:00 AM EDT Laboratory Lab Mobile Phlebotomy [facility] [address] [place], [place] [address] Mv[facility], Gml [facility] Draw [address] [employer], [place] [address] 02/12/2025 7:00 AM EDT Laboratory Lab Mobile Phlebotomy [facility] [address] [place], [place] [address] Mv[facility], Gml [facility] Draw [address] [place] [address] 02/19/2025 7:00 AM EDT Laboratory Lab Mobile Phlebotomy [facility] [address] [place] [address] Mvmg, Gml [facility] Draw [address] [place] [address] 02/26/2025 7:00 AM EDT Laboratory Lab Mobile Phlebotomy [facility] [address] [place] [place] [address] Mvmg, Gml Mobile [facility] Draw [address] [place] [address] 03/05/2025 7:00 AM EDT Laboratory Lab Mobile Phlebotomy [facility] [address] [place] [address] Mvmg, Gml [facility] Draw [address] [place] [address] 03/12/2025 7:00 AM EDT Laboratory Lab Mobile Phlebotomy [facility] [address] [place] [address] Mvmg, Gml [facility] Draw [address] [place] [address] 03/19/2025 7:00 AM EDT Laboratory Lab Mobile Phlebotomy [facility] [address] [place] [address] Mvmg, Gml [facility] Draw [address] [place] [address] 03/26/2025 7:00 AM EDT Laboratory Lab Mobile Phlebotomy [facility] [address] [place] [address] Mvmg, Gml [facility] Draw [address] [place] [address] 04/02/2025 7:00 AM EDT Laboratory Lab Mobile Phlebotomy [facility] [address] [place] [address] Mvmg, Gml [facility] Draw [address] [place] [address] 04/09/2025 7:00 AM EDT Laboratory Lab Mobile Phlebotomy [facility] [address] [facility] [place] [address] Mvmg, Gml [facility] Draw [address] [facility] [place] [address] 04/16/2025 7:00 AM EDT Laboratory Lab Mobile Phlebotomy [facility] [address] [place] [address] Mvmg, Gml [facility] Draw [address] [place] [address] 04/23/2025 7:00 AM EDT Laboratory Lab Mobile Phlebotomy [facility] [address] [facility] [place] [address] Mvmg, Gml [facility] Draw [address] [facility] [place] [address] 04/30/2025 7:00 AM EDT Laboratory Lab Mobile Phlebotomy [facility] [address] [place] [address] Mvmg, Gml [facility] Draw [address] [facility] [place] [address] 05/07/2025 7:00 AM EDT Laboratory Lab Mobile Phlebotomy [facility] [address] [place] [address] Mvmg, Gml [facility] Draw [address] [facility] [place] [address] 05/14/2025 7:00 AM EDT Laboratory Lab Mobile Phlebotomy [facility] [address] [facility] [place] [address] Mvmg, Gml Mobile Home Draw [address] [place] [address] 05/21/2025 7:00 AM EDT Laboratory Lab Mobile Phlebotomy [facility] [address] [place] [address] Mv[facility], Gml [facility] Draw [address] [facility] [place] [address] 07/21/2025 1:30 PM EDT Imaging Radiology [address] [place] [address] 08/04/2025 1:20 PM EDT Office Visit Family Medicine [address] [place] [phone] Dhruv Moss MD [address] [place] [address] [place] [address] Health Maintenance Due Date Last Done Comments *BISPHONATE OR OTHER ACCEPTABLE MEDICATION NEEDED FOR OSTEOPOROSIS (REFER TO SMARTSET #1146) 11/06/2023 Colonoscopy 05/06/2024 05/06/2019, 05/06/2019 CKD PHOS USE SMARTSET 49111 06/07/202405/14, 05/31/2023, 05/08/2023, Additional history exists COVID-19 [...] Additional history exists CKD HGB USE SMARTSET 03919 08/14/202508/14, 08/14/2024, 08/07/2024, Additional history exists DTap/Tdap Vaccines (3 - Td or Tdap) 11/10/2026 11/10/2016, 03/30/2011 VITAMIN D LEVEL ONCE IN A LIFETIME-USE SMARTSET# 13946 Completed 05/11/2015 RETIRED - COLONOSCOPY-EVERY 5 YRS [...] this encounter Medical Devices Implanted Type Area Composite Layup Worker Device Identifier Shelf Expiration Date Model / Serial / Lot Port Pwr Mri Isp Profile - [id number] Implanted:Qty: 1 on 07/24/2020 by Akash Castillo MD at [facility] Right: Chest CR BARD : PERIPHERAL VASCULAR 04/12/2021 [id number] / / [id number] documented as of this encounter Advance Directives [...] File Name Relationship Healthcare Agent [facility] Communication Juanita Silva Adult Child Health Care Agent Care Teams Distribution Operations Manager Relationship Specialty Start Date End Date Dhruv Moss MD [address] [place] [address] [place] [address] PCP - General Family Medicine 08/27/21 documented as of this encounter
--- OUTSIDE RECORDS SUMMARY | 2024-10-10 00:32 | External Medical Summary | Summary of Care ---
Author Name Unknown Organization [facility] Address [address] [facility] [place] [address] Phone [phone] Care Team Providers Care Hydraulic Spinner Name Role Phone Dhruv Moss MD Primary Care Provide r Encounter Details Date Type Department Care Team (Late st Contact Info) Description 08/13/2024 8:30 AM EDT [facility] 132 [facility] [place] [address] Marisa Pacheco, TANYA 132 [facility] [place] [address] Allergies No known active allergiesdocumented as of this encounter (statuses as of 08/13/2024) Medications Medication Sig Dispensed Refills Start Date End Date Status Diclofenac Sodium 1 % External GelIndications:knee pain Apply topically to affected area . Apply to bilateral knees Active Prochlorperazine Maleate 10 MG Oral Tablet (Compazine)Indicatio ns:H/O allogeneic bone marrow transplant (HCC) Take by mouth 1 Tablet every 6 hours as needed for Nausea. 60 Tablet 3 12/09/2021 Active ShareTrackerTouch Verio Flex System w/Device Kit Use as [...] chew 90 Capsule 1 04/01/2024 Active Pen [place] 32G X 4 MM Use as directed. [...] 24 Hour (Imdur)Indications:C oronary artery disease involving [place] coronary artery of [place] heart without angina pectoris,HTN, goal below 140/90 [...] as of this encounter (statuses as of 08/13/2024) Active Problems Patient Care Coordination No te Formatting of this note migh t be different from the original. Date of Transplant: 09/01/2021 Conditioning Regimen: Fludarabine / Busulfan 2 with post-transplant Cytoxan ABO/Rh: A Positive CMV status: CMV Positive--- GRID: [id number] / DID: [id number] Matched Unrelated 10/24--- DPB1 Match ABO/Rh: A [...] Thrombocytopenia 12/06/2022 Last Assessment & Plan: Platelets 56713 on 03/20 Questionable hematuria Urinary incontinence 09/12/2022 [...] failure. Does not have any evidence of bkgpe-mlvepc-nupl disease Last Assessment & Plan: Continues to [...] -continue venlafaxine Coronary artery disease invo lving [place] coronary artery of [place] heart without angina pectoris 06/12/2017 Overview: S/P EDIL to LAD on 06/12/17 Last Assessment & Plan: No angina - Continue atorvastatin, isosorbide, metoprolol - no ASA due to thrombocytopenia Dyslipidemia, goal LDL below 70 11/25/2011 Last Assessment & Plan: Patient having no issues. She continues on Lipitor 40 mg daily Last lab I will was that I can find were from [phone] Assessment/plan: Dyslipidemia with patient currently taking Lipitor [...] as of this encounter (statuses as of 08/13/2024) Resolved Problems Problem Noted Date Diagnosed Date [...] insulin 08/30/2021 Last Assessment & Plan: Dick aPatietoni currently has been having some issues maintaining [...] as of this encounter (statuses as of 08/13/2024) Immunizations Name Administration Dates Next Due COVID-19 mRNA, LNP-s, No Pre serve, 2-Dose Series ([employer]) 02/05/2021,01/08/2021 COVID-19, LNP-s, No Preserve , Ye-sucrose, [...] No 08/13/2024 Does the household have a [facility] source of income? (Household - for [...] Sign Reading Time Taken Comments Blood Pressure 118/52 08/13/2024 9:54 AM EDT Pulse 80 08/13/2024 9:54 AM EDT Temperature 35.7 C (96.3 F) 08/13/2024 9:54 AM ED T Respiratory Rate 18 08/13/2024 9:54 AM EDT Oxygen Saturation 96% 08/13/2024 9:54 AM EDT Inhaled Oxygen Concentration - - [...] Progress Notes * Marisa Pacheco RN - 08/13/2024 9:18 AM EDT Current Concerns: Patient seen for follow up- MDS- H/o stem cell transplant, CAD, DM2, Osteoarthritis Weekly labs- has been receiving 1 unit PRBC's on average weekly. Reports not feeling the best- vision is poor this morning. Can tell that she is going to need blood this week. Has not been checking blood sugars regularly- blood sugar this am 176. VS wnl Lungs clear bilaterally- slightly diminished Denies sob No LE edema Voiding without difficulty Bowels wnl Appetite fair Taking fluids well. Denies discomfort. Physical Exam: Physical Exam Constitutional: Appearance: Normal [...] Review of Systems: Review of Systems Constitutional: Negative. HENT: Negative. Respiratory: Positive for shortness of breath. Cardiovascular: Negative. Gastrointestinal: Negative. Genitourinary: Negative. Musculoskeletal: Positive for gait problem. Skin: Negative. Hematological: Negative. Psychiatric/Behavioral: Negative. Care Plan Goal Progress: Patient will remain free of falls. (Progressing) Start: 08/13/24 Expected End: 11/11/24 Patient will remain free from infection. (Progressing) Start: 08/13/24 Expected End: 11/11/24 Orders Placed: No orders of the defined types were placed in this encounter. Medications Given: Care Gaps: Care Gaps Care gaps closed this contact:: Education (08/13/24 1014) Type of education: Clinical/disease (08/13/24 1014) documented in this encounter Plan of Treatment Upcoming Encounters Date Type Department Care Team (Late st Contact Info) Description 08/27/2024 1:00 PM EDT Office Visit Pharmacy, [address] [place] [address] [place] [address] 08/28/2024 1:45 PM EDT Office Visit Ophthalmology, [facility] 132 [place] [address] Fernando Damon DO [address] [place] [address] 08/29/2024 11:00 AM EDT [facility] [place] 132 [place] [address] Tremaine Morgan PA-C [address] [place] [address] 10/08/2024 10:00 AM EST [facility] [place] 132 [place] [address] Marisa Pacheco RN [address] [place] [address] 10/16/2024 1:45 PM EST Office Visit Hematology/Oncology [facility] [address] [facility] [address] [place] [phone] Jitendra Aguero MD 200 [facility] [place] [address] 12/24/2024 2:30 PM EST Nurse Only Ancillary [address] [place] [address] [place], Nurse Annual [address] [place] [address] 01/13/2025 11:40 AM EST Office Visit Family Medicine [address] [place] [phone] Dhruv Moss MD [address] [place] [address] [place] [address] 07/21/2025 1:30 PM EDT Imaging Radiology [address] [place] [address] 08/04/2025 1:20 PM EDT Office Visit Family Medicine [address] [place] [phone] Dhruv Moss MD [address] [place] [address] [place] [address] Health Maintenance Due Date Last Done Comments *BISPHONATE OR OTHER ACCEPTABLE MEDICATION NEEDED FOR OSTEOPOROSIS (REFER TO SMARTSET #1146) 11/06/2023 Colonoscopy 05/06/2024 05/06/2019, 05/06/2019 CKD PHOS USE SMARTSET 61129 06/07/2024 07/04/2023, 05/31/2023, 05/08/2023, Additional history exists [...] Additional history exists CKD HGB USE SMARTSET 06112 08/07/202508/07, 08/07/2024, 07/31/2024, Additional history exists DTap/Tdap Vaccines (3 - Td or Tdap) 11/10/2026 11/10/2016, 03/30/2011 VITAMIN D LEVEL ONCE IN A LIFETIME-USE SMARTSET# 56598 Completed 05/11/2015 RETIRED - COLONOSCOPY-EVERY 5 YRS [...] this encounter Medical Devices Implanted Type Area Investment Consultant Device Identifier Shelf Expiration Date Model / Serial / Lot Port Pwr Mri Isp Profile - [id number] Implanted:Qty: 1 on 07/24/2020 by Akash Castillo MD at [facility] Right: Chest CR BARD : PERIPHERAL VASCULAR 04/12/2021 [id number] / / [id number] documented as of this encounter Advance Directives [...] Agents on File Name Relationship Healthcare Agent [facility] Communication Juanita Ricardo Adult Child Health Care Agent Care Teams Hydraulic Spinner Relationship Specialty Start Date End Date Dhruv Moss MD [facility] [place] [address] PCP - General Family Medicine 08/27/21 documented as of this encounter
--- OUTSIDE RECORDS SUMMARY | 2024-10-10 00:33 | External Medical Summary | Summary of Care ---
Author Name Unknown Organization [facility] Address [address] [facility] [address] Phone [phone] Care Team Providers Care Weeder Name Role Phone Dhruv Moss MD Primary Care Provide r Reason for Visit * Reason Onset Date Comments Test Results 08/08/2024 Encounter Details Date Type Department Care Team (Late st Contact Info) Description 08/08/2024 Telephone Hematology/Oncology [facility] [address] [place] [address] Jitendra Aguero MD [address] [place] [address] Test Results Allergies No known active allergiesdocumented as of this encounter (statuses as of 08/08/2024) Medications Medication Sig Dispensed Refills Start Date End Date Status Diclofenac Sodium 1 % External GelIndications:knee pain Apply topically to affected area . Apply to bilateral knees Active Prochlorperazine Maleate 10 MG Oral Tablet (Compazine)Indicatio ns:H/O allogeneic bone marrow transplant (HCC) Take by mouth 1 Tablet every 6 hours as needed for Nausea. 60 Tablet 3 12/09/2021 Active GRIDTouch Verio Flex System w/Device Kit Use as [...] chew 90 Capsule 1 04/01/2024 Active Pen [place] 32G X 4 MM Use as directed. [...] 24 Hour (Imdur)Indications:C oronary artery disease involving [place] coronary artery of [place] heart without angina pectoris,HTN, goal below [...] TabletIndications:MD Santos (myelodysplastic syndrome), high grade ([facility]) Take 1 Tablet by mouth every 8 hours as needed for Nausea. 60 Tablet 3 07/22/2024 Active LubriFresh P.M. Ophthalmic Ointment Instill 1 Tube into the right eye once. 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 Date of Transplant: 09/01/2021 Conditioning Regimen: Fludarabine / Busulfan 2 with post-transplant Cytoxan ABO/Rh: A Positive CMV status: CMV Positive--- GRID: [id number] [id number] / DID: [id number] Matched Unrelated 10/24--- DPB1 Match ABO/Rh: A [...] Thrombocytopenia 12/06/2022 Last Assessment & Plan: Platelets 30230 on 03/20 Questionable hematuria Urinary incontinence 09/12/2022 [...] failure. Does not have any evidence of ucsfg-gcoczy-hijt disease Last Assessment & Plan: Continues to [...] -continue venlafaxine Coronary artery disease invo lving [place] coronary artery of [place] heart without angina pectoris 06/12/2017 Overview: S/P EDIL to LAD on 06/12/17 Last Assessment & Plan: No angina - Continue atorvastatin, isosorbide, metoprolol - no ASA due to thrombocytopenia Dyslipidemia, goal LDL below 70 11/25/2011 Last Assessment & Plan: Patient having no issues. She continues on Lipitor 40 mg daily Last lab I will was that I can find were from [phone] Assessment/plan: Dyslipidemia with patient currently taking Lipitor [...] as of this encounter (statuses as of 08/08/2024) Resolved Problems Problem Noted Date Diagnosed Date Resolved Date Controlled substance agreement signed 03/04/2024 03/04/2024 Acute cystitis without hematuria 05/09/2023 07/22/2024 Last Assessment & Plan: Given history of urosepsis, will opt to treat with Keflex 500 mg p.o. Three times daily times 10 days follow-up culture Candidiasis, esophageal 03/10/2022/12/2021 Last Assessment & Plan: The patient has [...] as of this encounter (statuses as of 08/08/2024) Immunizations Name Administration Dates Next Due COVID-19 [...] PF, (Fluzone) 08/27/2013,11/25/2011,08/13/2010,10/13 Seasonal Influenza, Trivalen t, (IIV3), with Preserv, (Fluzone) 09/03/2014,08/13/2013 Seasonal Influenza, Trivalen t, Adjuvanted, 65+ YRS, [...] money to get more. Never true 12/22/2023 Childcare Answer Date Recorded Do you feel overwhelmed with taking care of a child, family member or friend? No 12/22/2023 Does your family need help f inding childcare? (Household - for ages 0-17 years) Not on file 12/22/2023 Clothing Answer Date Recorded Have you been unable to get clothing when it was really needed? No 12/22/2023 Is your family able to get c lothes or diapers when needed? (Household - for ages 0-17 years) Not on file 12/22/2023 Personal Safety Answer Date Recorded Do you feel unsafe or have concerns for your saf ety? No 12/22/2023 Do you have concerns for you r family's safety? (Household - for ages 0-17 years) Not on file 12/22/2023 Utilities Answer Date Recorded Do you have trouble paying y our heating, water, or electric bill? No 12/22/2023 Is your family able to pay t he heat, water, or electric bill? (Household - for ages 0-17 years) Not on file 12/22/2023 Does your family have access to good internet? (Household - for ages 0-17 years) Not on file 12/22/2023 Employment Status Answer Date Recorded Are you unemployed or without regular income? No 12/22/2023 Does the household have a [facility] source of income? (Household - for ages 0-17 years) Not on file 12/22/2023 Social Connections Answer Date Recorded How often do you feel lonely or isolated from those around you? Sometimes 12/22/2023 Financial Resource Strain Answer Date R ecorded Do you have any trouble payi ng for your medications, or do you think you might in the future? No 12/22/2023 Does your family have troubl e paying for medicine? (Household - for ages 0-17 years) Not on file 12/22/2023 Transportation Needs Answer Date Record ed READ ONLY Do you have troubl e getting a ride to medical visits or work? Never True 12/22/2023 Does your family have a hard time getting a ride to doctors visits? (Household - for ages 0-17 years) Not on file 12/22/2023 Has lack of transportation k ept you from medical appointments, meetings, work, or from getting things needed for daily living? Check all that apply. (Adult - for ages 18 years and over) Not on file 12/22/2023 Do you (or your family) have trouble finding or paying for a ride (transportation)? (Household - for ages 0-17 years) Not on file 12/22/2023 Housing Stability Answer Date Recorded Do you currently live in a s helter or have no steady place to sleep at night? No 12/22/2023 READ ONLY Do you think you a re at risk of becoming homeless? No 12/22/2023 Does your family worry about paying for your home or becoming homeless? (Household - for ages 0-17 years) Not on file 0 12/22/2023 Are you homeless or worried that you might be in the future? (Adult - for ages 18 years and over) Not on file Are you (or your family) lou eless or worried that you might be in the future? (Household - for ages 0-17 years) Not on file Food Insecurity Answer Date Recorded Do you need food for this week? No 12/22/2023 Are you able to get enough f ood for your family? (Household - for ages 0-17 years) Not on file 12/22/2023 Does your family need food t his week? (Household - for ages 0-17 years) Not on file 12/22/2023 Do you always have enough fo od for your family? (Household - for ages 0-17 years) Not on file 12/22/2023 Sex and Gender Information Value Date [...] Telephone Encounter - Makenzie Barth LPN - 08/08/2024 8:12 AM EDT Reviewed lab results with patient's daughter. She verbalized understanding. Patient to receive 1 unit prbc and 1 unit platelets. Called [facility] blood bank. Spoke with Emiliano. Spoke with Margoth at [facility]. Called [facility] central scheduling. Patient scheduled for today at 10:30 am. Patient verbalized understanding of appt time. Faxed order to [facility]/ blood bank. * Telephone Encounter - Makenzie Barth LPN - 08/08/2024 8:06 AM EDT ----- Message from Jitendra Aguero MD sent at 08/08/2024 6:21 AM EDT ----- Blood workup done on 08/07/2024: - WBC 13,700, H&H of 7.1/21.8, platelet count of 3000. I would like to give her one unit of PRBC and one bag of platelet at [facility]. documented in this encounter Plan of Treatment Upcoming Encounters Date Type Department Care Team (Late st Contact Info) Description 08/13/2024 8:30 AM EDT Home Visit [facility] [address] [place] [address] Marisa Pacheco, TANYA [address] [place] [address] 08/27/2024 1:00 PM EDT Office Visit Pharmacy, [address] [place] [address] [place] [address] 08/28/2024 1:45 PM EDT Office Visit Ophthalmology, [facility] [address] [place] [address] Fernando Damon, [address] [place] [address] 08/29/2024 11:00 AM EDT [facility], [facility] [address] [place] [address] Tremaine Morgan PA-C [address] [place] [address] 10/16/2024 1:45 PM EST Office Visit Hematology/Oncology [facility] [address] [place] [phone] Jitendra Aguero MD [address] [place] [address] 12/24/2024 2:30 PM EST Nurse Only Ancillary [address] [place] [address] [place], Nurse [address] [place] [address] 01/13/2025 11:40 AM EST Office Visit Family Medicine [address] [place] [phone] Dhruv Moss MD [address] [place] [address] [place] [address] 07/21/2025 1:30 PM EDT Imaging Radiology [address] [place] [address] 08/04/2025 1:20 PM EDT Office Visit Family Medicine [address] [place] [phone] Dhruv Moss MD [address] [place] [address] [place] [address] Health Maintenance Due Date Last Done Comments *BISPHONATE OR OTHER ACCEPTABLE MEDICATION NEEDED FOR OSTEOPOROSIS (REFER TO SMARTSET #1146) 11/06/2023 Colonoscopy 05/06/2024 05/06/2019, 05/06/2019 CKD PHOS USE SMARTSET 68659 06/07/202405/14, 05/31/2023, 05/08/2023, Additional history exists COVID-19 [...] Additional history exists CKD HGB USE SMARTSET 56874 08/07/202508/07, 08/07/2024, 07/31/2024, Additional history exists DTap/Tdap Vaccines (3 - Td or Tdap) 11/10/2026 11/10/2016, 03/30/2011 VITAMIN D LEVEL ONCE IN A LIFETIME-USE SMARTSET# 52094 Completed 05/11/2015 RETIRED - COLONOSCOPY-EVERY 5 YRS [...] this encounter Medical Devices Implanted Type Area Seam Finisher Device Identifier Shelf Expiration Date Model / Serial / Lot Port Pwr Mri Isp Profile - [id number] Implanted:Qty: 1 on 07/24/2020 by Akash Castillo MD at OR [facility] Right: Chest CR BARD : PERIPHERAL VASCULAR 04/12/2021 [id number] / / [id number] documented as of this encounter Advance Directives [...] Adult Child Health Care Agent Care Teams Weeder Relationship Specialty Start Date End Date Dhruv Moss MD [address] [place], [place] [address] [address] PCP - General Family Medicine 08/27/21 documented as of this encounter
--- OUTSIDE RECORDS SUMMARY | 2024-10-10 00:33 | External Medical Summary | Summary of Care ---
Author Name Unknown Organization [facility] Address [address] [facility] [address] Phone [phone] Care Team Providers Care Cable Hooker Name Role Phone Dhruv Moss MD Primary Care Provide r Encounter Details Date Type Department Care Team (Late st Contact Info) Description 08/01/2024 Population Health External Data Unspecified Department Allergies No known active allergiesdocumented as of this encounter (statuses as of 08/05/2024) Medications Medication Sig Dispensed Refills Start Date [...] chew 90 Capsule 1 04/01/2024 Active Pen [place] 32G X 4 MM Use as directed. [...] 24 Hour (Imdur)Indications:C oronary artery disease involving [place] coronary artery of [place] heart without angina pectoris,HTN, goal below 140/90 [...] edema, unspecified whether prison insulin use (HCC) 1.5 mg PERINEURAL PRN 07/17/2024 07/17/2025 Active documented as of this encounter (statuses as of 08/05/2024) Active Problems Patient Care Coordination No te Formatting of this note migh t be different from the original. Date of Transplant: 09/01/2021 Conditioning Regimen: Fludarabine / Busulfan 2 with post-transplant Cytoxan ABO/Rh: A Positive CMV status: CMV Positive--- GRID: [id number] [id number] 732 / DID: [id number] Matched Unrelated 10/24--- DPB1 Match ABO/Rh: A [...] Thrombocytopenia 12/06/2022 Last Assessment & Plan: Platelets 81222 on 03/20 Questionable hematuria Urinary incontinence 09/12/2022 [...] failure. Does not have any evidence of ghopq-pmzpwx-ripz disease Last Assessment & Plan: Continues to [...] -continue venlafaxine Coronary artery disease invo lving [place] coronary artery of [place] heart without angina pectoris 06/12/2017 Overview: S/P EDIL to LAD on 06/12/17 Last Assessment & Plan: No angina - Continue atorvastatin, isosorbide, metoprolol - no ASA due to thrombocytopenia Dyslipidemia, goal LDL below 70 11/25/2011 Last Assessment & Plan: Patient having no issues. She continues on Lipitor 40 mg daily Last lab I will was that I can find were from [phone] Assessment/plan: Dyslipidemia with patient currently taking Lipitor [...] as of this encounter (statuses as of 08/05/2024) Resolved Problems Problem Noted Date Diagnosed Date [...] as of this encounter (statuses as of 08/05/2024) Immunizations Name Administration Dates Next Due COVID-19 mRNA, LNP-s, No Pre serve, 2-Dose Series (Tixie ([employer])) 02/05/2021,01/08/2021 COVID-19, LNP-s, No Preserve , Ye-sucrose, [...] No 12/22/2023 Does the household have a re gular [...] Care Team (Late st Contact Info) Description 08/07/2024 7:10 AM EDT Laboratory Lab Mobile Phlebotomy [facility] [address] [place] [address] M[facility], Gml Mobile Home Draw [address] [employer] [place] [address] 08/13/2024 8:30 AM EDT [facility], [facility] [address] [place] [address] Marisa Pacheco, TANYA [address] [place] [address] 08/27/2024 1:00 PM EDT Office Visit Pharmacy, [address] [place] [address] [place] [address] 08/28/2024 1:45 PM EDT Office Visit Ophthalmology, [facility] [address] [place] [address] [address] Fernando Damon, [address] [place] [address] 08/29/2024 11:00 AM EDT [facility] Visit [facility] [address] [place] [address] [address] Tremaine Morgan PA-C [address] [place] [address] 10/16/2024 1:45 PM EST Office Visit Hematology/On[facility] [address] [place] [phone] Jitendra Aguero MD [address] [place] [address] 12/24/2024 2:30 PM EST Nurse Only Ancillary [address] [place] [address] [place], Nurse [facility] [address] [place] [address] [place] [address] 01/13/2025 11:40 AM EST Office Visit Family Medicine [address] [place] [phone] Dhruv Moss MD [address] [place] [address] [place] [address] 07/21/2025 1:30 PM EDT Imaging Radiology [address] [place] [address] 08/04/2025 1:20 PM EDT Office Visit [address] [place] [phone] Dhruv Moss MD [address] [place] [address] [place] [address] Health Maintenance Due Date Last Done Comments *BISPHONATE OR OTHER ACCEPTABLE MEDICATION NEEDED FOR OSTEOPOROSIS (REFER TO SMARTSET #1146) 11/06/2023 Colonoscopy 05/06/2024 05/06/2019, 05/06/2019 CKD PHOS USE SMARTSET 80791 06/07/202405/14, 05/31/2023, 05/08/2023, Additional history exists COVID-19 [...] Additional history exists CKD HGB USE SMARTSET 96256 07/31/202507/31, 07/31/2024, 07/24/2024, Additional history exists DTap/Tdap Vaccines (3 - Td or Tdap) 11/10/2026 11/10/2016, 03/30/2011 VITAMIN D LEVEL ONCE IN A LIFETIME-USE SMARTSET# 45489 Completed 05/11/2015 RETIRED - COLONOSCOPY-EVERY 5 YRS [...] this encounter Medical Devices Implanted Type Area Crimp Setter Device Identifier Shelf Expiration Date Model / Serial / Lot Port Pwr Mri Isp Profile - [id number] Implanted:Qty: 1 on 07/24/2020 by Akash Castillo MD at OR [facility] Right: Chest CR BARD : PERIPHERAL VASCULAR 04/12/2021 [id number] / / [id number] documented as of this encounter Advance Directives [...] Name Relationship Healthcare Agent Relationshi p Communication Juanitaismael Dalton Adult Child Health Care Agent Care Teams Cable Hooker Relationship Specialty Start Date End Date Dhruv Moss MD [address] [place] [id number] PCP - General Family Medicine 08/27/21 documented as of this encounter
--- OUTSIDE RECORDS SUMMARY | 2024-10-10 00:33 | External Medical Summary | Summary of Care ---
Author Name Unknown Organization [facility] Address [address] [facility] [address] Phone [phone] Care Team Providers Care Typing Secretary Name Role Phone Dhruv Moss MD Primary Care Provide r Reason for Visit * Reason Onset Date Comments Fax 07/26/2024 Encounter Details Date Type Department Care Team (Late st Contact Info) Description 07/26/2024 Telephone Family Medicine [address] [phone] Dhruv Moss MD [address] [place] [address] [place] [address] Fax Allergies No known active allergiesdocumented as of [...] for Nausea. 60 Tablet 3 12/09/2021 Active Churn LabsTouch Verio Flex System w/Device Kit Use as [...] chew 90 Capsule 1 04/01/2024 Active Pen [place] 32G X 4 MM Use as directed. [...] 24 Hour (Imdur)Indications:C oronary artery disease involving [place] coronary artery of [place] heart without angina pectoris,HTN, goal below 140/90 [...] goal of less than 8.0% ([facility]) Use to test blood sugar three times a day DXe11.9 300 Each 3 07/22/2024 Active Insulin Glargine Solostar 100 UNIT/ML Subcutaneous Solution Pen-injector (Lantus SoloStar) Inject 16 Units under the skin in the morning. 30 mL 3 07/22/2024 Active Ondansetron HCl 8 MG Oral TabletIndications:MD Santos (myelodysplastic syndrome), high grade ([facility]) Take 1 Tablet by mouth every 8 [...] grade (HCC),Stem cells transplant status ([facility]),Acquired hypothyroidism 1000 mL IV DAILY PRN 12/08/2021 [...] [id number] 2079 7075 732 / DID: [id number] Matched Unrelated 10/24--- DPB1 Match ABO/Rh: A [...] Thrombocytopenia 12/06/2022 Last Assessment & Plan: Platelets 96534 on 03/20 Questionable hematuria Urinary incontinence 09/12/2022 [...] failure. Does not have any evidence of rqkey-idrfer-xlqk disease Last Assessment & Plan: Continues to [...] -continue venlafaxine Coronary artery disease invo lving [place] coronary artery of [place] heart without angina pectoris 06/12/2017 Overview: S/P EDIL to LAD on 06/12/17 Last Assessment & Plan: No angina - Continue atorvastatin, isosorbide, metoprolol - no ASA due to thrombocytopenia Dyslipidemia, goal LDL below 70 11/25/2011 Last Assessment & Plan: Patient having no issues. She continues on Lipitor 40 mg daily Last lab I will was that I can find were from [phone] Assessment/plan: Dyslipidemia with patient currently taking Lipitor [...] No 12/22/2023 Does the household have a [facility] source of income? (Household - for [...] encounter Miscellaneous Notes * Telephone Encounter - Dalia Bojorquez OSA - 08/02/2024 9:48 AM EDT [facility] calling in regards to faxed order. Please see below. Thank you. * Telephone Encounter - Cecille Gilbert OSA - 07/26/2024 1:20 PM EDT Caller requesting the following information to be faxed: Name/Company of caller: [facility] Information requested to be faxed: Es will be faxing over diabetic supplies form to be filled out by PCP Fax number: [phone] Attention to Name/Company: [facility] Any additional information?: No documented in this encounter Plan of Treatment Upcoming Encounters Date Type Department Care Team (Late st Contact Info) Description 08/07/2024 7:10 AM EDT Laboratory Lab Mobile Phlebotomy [facility] [address] [employer] [place] [address] [facility], Gml Mobile Home Draw [address] [place] [address] 08/13/2024 8:30 AM EDT [facility] Visit [facility] [place], [facility] [address] [place] [address] Marisa Pacheco, TANYA [address] [place] [address] 08/27/2024 1:00 PM EDT Office Visit Pharmacy, [address] [place] [address] [place] [address] 08/28/2024 1:45 PM EDT Office Visit Ophthalmology, [facility] [address] [place] [address] Fernando Damon, [address] [place] [address] 08/29/2024 11:00 AM EDT [facility], [facility] [address] [place] [address] Tremaine Morgan PA-C [address] [place] [address] 10/16/2024 1:45 PM EST Office Visit Hematology/Oncology [facility] [address] [place] [phone] Jitendra Aguero MD [address] [facility] [place] [address] 12/24/2024 2:30 PM EST Nurse Only Ancillary [address] [place] [address] [place], Nurse [address] [place] [address] 01/13/2025 11:40 AM EST Office Visit Family Medicine [address] [place] [phone] Dhruv Moss MD [address] [place] [address] [place] [address] 07/21/2025 1:30 PM EDT Imaging Radiology [address] [place] [address] 08/04/2025 1:20 PM EDT Office Visit Family Medicine [address] [place] [phone] Dhruv Moss MD [address] [place] [address] [place] [address] Health Maintenance Due Date Last Done Comments *BISPHONATE OR OTHER ACCEPTABLE MEDICATION NEEDED FOR OSTEOPOROSIS (REFER TO SMARTSET #1146) 11/06/2023 Colonoscopy 05/06/2024 05/06/2019, 05/06/2019 CKD PHOS USE SMARTSET 41078 06/07/202405/14, 05/31/2023, 05/08/2023, Additional history exists COVID-19 [...] Additional history exists CKD HGB USE SMARTSET 68656 07/31/202507/31, 07/31/2024, 07/24/2024, Additional history exists DTap/Tdap Vaccines (3 - Td or Tdap) 11/10/2026 11/10/2016, 03/30/2011 VITAMIN D LEVEL ONCE IN A LIFETIME-USE SMARTSET# 02825 Completed 05/11/2015 RETIRED - COLONOSCOPY-EVERY 5 YRS [...] this encounter Medical Devices Implanted Type Area [employer] Device Identifier Shelf Expiration Date Model / Serial / Lot Port Pwr Mri Isp Profile - [id number] Implanted:Qty: 1 on 07/24/2020 by Akash Castillo MD at OR [facility] Right: Chest CR BARD : PERIPHERAL VASCULAR 04/12/2021 [id number] / / [id number] documented as of this encounter Advance Directives [...] Adult Child Health Care Agent Care Teams Typing Secretary Relationship Specialty Start Date End Date Dhruv Moss MD [address] [place] [address] [place] [address] PCP - General Family Medicine 08/27/21 documented as of this encounter
--- OUTSIDE RECORDS SUMMARY | 2024-10-10 00:33 | External Medical Summary | Summary of Care ---
Author Name Unknown Organization [facility] [address] [facility] [address] Phone [phone] Care Team Providers Care Stone Hand Name Role Phone Dhruv Moss MD Primary Care Provide r Encounter Details Date Type Department Care Team (Late st Contact Info) Description 08/02/2024 Result Scan Unspecified Department [facility]itendra [facility]ero MD [facility] [id number] <No scans attached> Allergies No known active [...] chew 90 Capsule 1 04/01/2024 Active Pen [place] 32G X 4 MM Use as [...] 24 Hour (Imdur)Indications:C oronary artery disease involving [place] coronary artery of [place] heart without angina pectoris,HTN, goal below 140/90 [...] Santos (myelodysplastic syndrome), high grade ([facility]) Take 1 Tablet by mouth [...] grade (HCC),Stem cells transplant status ([facility]),Acquired hypothyroidism 1000 mL IV DAILY PRN 12/08/2021 Active bevaCIZumab (Avastin) inj 1.25 mgIndications: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, unspecified whether laborer marine terminal insulin use ([facility]) 1.25 mg IZ PRN 07/17/2024 07/17/2025 Active ROPivacaine (Naropin) inj 1.5 mgIndications: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 Does not have any evidence of knkjd-ctwvfa-zknk disease Last Assessment & Plan: Continues to [...] -continue venlafaxine Coronary artery disease invo lving [place] coronary artery of [place] heart without angina pectoris 06/12/2017 Overview: S/P EDIL to LAD on 06/12/17 Last Assessment & Plan: No angina - Continue atorvastatin, isosorbide, metoprolol - no ASA due to thrombocytopenia Dyslipidemia, goal LDL below 70 11/25/2011 Last Assessment & Plan: Patient having no issues. She continues on Lipitor 40 mg daily Last lab I will was that I can find were from [phone] Assessment/plan: Dyslipidemia with patient currently taking Lipitor [...] mRNA, LNP-s, No Pre serve, 2-Dose Series ([employer]) 02/05/2021,01/08/2021 COVID-19, LNP-s, No Preserve , Ye-sucrose, [...] 12/22/2023 Does the household have a re lar [...] Laboratory Lab Mobile Phlebotomy [facility] [address] [place] [address] [facility], Gml Mobile Home Draw [address] [employer] [place] [address] 08/13/2024 8:30 AM EDT Home Visit [facility], [facility] [address] [place] [address] Marisa Pacheco, TANYA 132 [place] [address] 08/27/2024 1:00 PM EDT Office Visit Pharmacy, [address] [place] [address] [place] [address] 08/28/2024 1:45 PM EDT Office Visit Ophthalmology, [facility] [address] [place] [address] Fernando Damon, DO [address] [place] [address] 08/29/2024 11:00 AM EDT [facility] Visit [facility] [address] [place] [address] Tremaine Morgan PA-C [address] [place] [address] 10/16/2024 1:45 PM EST Office Visit Hematology/Oncology [facility] [place] [address] [facility] [place] [phone] Jitendra Aguero MD [address] [facility] [place] [address] 12/24/2024 2:30 PM EST Nurse Only Ancillary [address] [place] [address] [place], Nurse Annual [address] [place] [address] 01/13/2025 11:40 AM EST Office Visit Family Medicine [address] [place] [phone] Dhruv Moss MD [address] [place] [address] [place] [address] 07/21/2025 1:30 PM EDT Imaging Radiology [address] [place] [address] 08/04/2025 1:20 PM EDT Office Visit Family Medicine [address] [place] [phone] Dhruv Moss MD [address] [place] [address] [place] [address] Health Maintenance Due Date Last Done Comments *BISPHONATE OR OTHER ACCEPTABLE MEDICATION NEEDED FOR OSTEOPOROSIS (REFER TO SMARTSET #1146) 11/06/2023 Colonoscopy 05/06/2024 05/06/2019, 05/06/2019 CKD PHOS USE SMARTSET 06733 06/07/202405/14, 05/31/2023, 05/08/2023, Additional history exists COVID-19 [...] Additional history exists CKD HGB USE SMARTSET 94107 07/31/202507/31, 07/31/2024, 07/24/2024, Additional history exists DTap/Tdap Vaccines (3 - Td or Tdap) 11/10/2026 11/10/2016, 03/30/2011 VITAMIN D LEVEL ONCE IN A LIFETIME-USE SMARTSET# 12716 Completed 05/11/2015 RETIRED - COLONOSCOPY-EVERY 5 YRS [...] this encounter Medical Devices Implanted Type Area Oil Burner Servicer And Installer Device Identifier Shelf Expiration Date Model / Serial / Lot Port Pwr Mri Isp Profile - [id number] Implanted:Qty: 1 on 07/24/2020 by Akash Castillo MD at OR [facility] Right: Chest CR BARD : PERIPHERAL VASCULAR 04/12/2021 [id number] / / [id number] documented as of this encounter Procedures Procedure Name Priority Date/Time Associated Diagnosis Comments OUTSIDE LAB RESULTS 08/02/2024 documented in this encounter Results * OUTSIDE LAB RESULTS (08/02/2024) 08/02/2024 Jitendra Aguero MD LABORATORY documented in this [...] Adult Child Health Care Agent Care Teams Stone Hand Relationship Specialty Start Date End Date Dhruv Moss MD [address] [place] [address] [place] [address] PCP - General Family Medicine 08/27/21 documented as of this encounter
--- OUTSIDE RECORDS SUMMARY | 2024-10-10 00:33 | External Medical Summary ---
Author Name Unknown Address Unknown Organization K01:[facility] [address] [facility] [place] [address] Laboratory Report Ordering Provider Test Date Status ANN MUNGUIA 08/07/2024 08:13:00 Final Observation Date Value Abnormality Reference (Units ) Status SYNC LEUKOCYTES IN BLOOD BY AUTOMATED COUNT 08/07/2024 08:13:00 13.72 Above high normal 4.00-10.80 (K/uL) Final Neutrophils/100 leukocytes in Blood by Manual count 08/07/2024 08:13:00 29.0 Below low normal 40.0-75.0 (%) Final Lymphocytes/100 leukocytes in Blood by Manual count 08/07/2024 08:13:00 61.0 Above high normal 18.0-42.0 (%) Final Monocytes/100 leukocytes in Blood by Manual count 08/07/2024 08:13:00 1.0 1.0-11.0 (%) Final Eosinophils/100 leukocytes in Blood by Manual count 08/07/2024 08:13:00 3.0 0.0-6.0 (%) Final Blasts/100 leukocytes in Blood by Manual count 08/07/2024 08:13:00 6.0 Above high normal <=0.0 (%) Final Neutrophils [#/volume] in Blood by Manual count 08/07/2024 08:13:00 3.98 1.80-7.70 (K/uL) Final Lymphocytes [#/volume] in Blood by Manual count 08/07/2024 08:13:00 8.37 Above high normal 1.00-4.80 (K/uL) Final Monocytes [#/volume] in Blood by Manual count 08/07/2024 08:13:00 0.14 0.00-1.10 (K/uL) Final Eosinophils [#/volume] in Blood by Manual count 08/07/2024 08:13:00 0.41 0.00-0.70 (K/uL) Final Blasts [#/volume] in Blood by Manual count 08/07/2024 08:13:00 0.82 Above high normal <=0.00 (K/uL) Final Performing Location LABORATORY [facility] - [address] [facility] [address]
--- OUTSIDE RECORDS SUMMARY | 2024-10-10 00:33 | External Medical Summary ---
Author Name Unknown Address Unknown Organization K01:LABORATORY [facility] [place] - [facility] [address] [place] [address] Laboratory Report Ordering Provider Test Date Status ANN MUNGUIA 08/07/2024 08:13:00 Final Observation Date Value Abnormality Reference (Units ) Status WBC, Total 08/07/2024 08:13:00 13.72 Above high normal 4.00-10.80 (K/uL) Final RBC 08/07/2024 08:13:00 2.12 3.85-5.15 (M/uL) Final Hemoglobin 08/07/2024 08:13:00 7.1 Below low normal 12.0-15.3 (g/dL) Final HCT 08/07/2024 08:13:00 21.8 Below low normal 36.0-45.2 (%) Final MCV 08/07/2024 08:13:00 102.8 81.5-97.5 (fL) Final MCH 08/07/2024 08:13:00 33.5 27.0-34.0 (pg) Final MCHC 08/07/2024 08:13:00 32.6 32.0-36.0 (g/dL) Final RDW 08/07/2024 08:13:00 19.9 11.5-15.5 (%) Final Platelets 08/07/2024 08:13:00 3 Below lower panic limits 140-400 (K/uL) Final MPV 08/07/2024 08:13:00 10.0 6.6-11.1 (fL) Final Nucleated erythrocytes/100 leukocytes [Ratio] in Blood by Automated count 08/07/2024 08:13:00 0 <=0 (/100 WBCs) Final Performing Location LABORATORY [facility] - [address] [place] [address]
--- OUTSIDE RECORDS SUMMARY | 2024-10-10 00:33 | External Medical Summary | Summary of Care ---
Author Name Unknown Organization [facility] Address [address] [facility] [address] Phone [phone] Care Team Providers Care Merchandising Execution Manager Name Role Phone Dhruv Moss MD Primary Care Provide r Reason for Visit * Reason Onset Date Comments Fax 07/26/2024 Encounter Details Date Type Department Care Team (Late st Contact Info) Description 07/26/2024 Telephone Family Medicine [address] [phone] Dhruv Moss MD [address] [place] [address] [place] [address] Fax Allergies No known [...] for Nausea. 60 Tablet 3 12/09/2021 Active VoluniaTouch Verio Flex System w/Device Kit Use as [...] chew 90 Capsule 1 04/01/2024 Active Pen [place] 32G X 4 MM Use as directed. [...] 24 Hour (Imdur)Indications:C oronary artery disease involving [place] coronary artery of [place] heart without angina pectoris,HTN, goal below 140/90 [...] hemoglobin A1c goal of less than 8.0% ([facility]) Use to test blood sugar three times a day DXe11.9 300 Each 3 07/22/2024 Active Insulin Glargine Solostar 100 UNIT/ML Subcutaneous Solution Pen-injector (Lantus SoloStar) Inject 16 Units under the skin in the morning. 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 Does not have any evidence of wjjus-bwodbt-mhbn disease Last Assessment & Plan: Continues to [...] -continue venlafaxine Coronary artery disease invo lving [place] coronary artery of [place] heart without angina pectoris 06/12/2017 Overview: S/P EDIL to LAD on 06/12/17 Last Assessment & Plan: No angina - Continue atorvastatin, isosorbide, metoprolol - no ASA due to thrombocytopenia Dyslipidemia, goal LDL below 70 11/25/2011 Last Assessment & Plan: Patient having no issues. She continues on Lipitor 40 mg daily Last lab I will was that I can find were from [phone] Assessment/plan: Dyslipidemia with patient currently taking Lipitor [...] No 12/22/2023 Does the household have a [facility] source of income? (Household - for [...] be filled out by PCP Fax number: [phone] Attention to Name/Company: [employer] Any additional information?: No documented in this encounter Plan of Treatment Upcoming Encounters Date Type Department Care Team (Late st Contact Info) Description 08/07/2024 7:10 AM EDT Laboratory Lab Mobile Phlebotomy [facility] [address] [facility] [address] [address] Mv[facility], Gml Mobile Home Draw [address] [place] [address] 08/13/2024 8:30 AM EDT Home Visit [facility] [place], [facility] [address] [place] [address] Marisa Pacheco, TANYA [address] [place] [address] 08/27/2024 1:00 PM EDT Office Visit Pharmacy, [address] [place] [address] [place] [address] 08/28/2024 1:45 PM EDT Office Visit Ophthalmology, [facility] [address] [place] [address] Fernando Damon, [address] [place] [address] 08/29/2024 11:00 AM EDT [facility] Visit [facility], [facility] [address] [place] [address] Tremaine Morgan PA-C [address] [place] [address] 10/16/2024 1:45 PM EST Office Visit Hematology/Oncology [facility] [address] [place] [phone] Jitendra Aguero MD 200 [facility] [place] [address] 12/24/2024 2:30 PM EST Nurse Only Ancillary [address] [place] [address] [place], Nurse [address] [place] [address] 01/13/2025 11:40 AM EST Office Visit Family Medicine [address] [place] [phone] Dhruv Moss MD [address] [place] [address] [place] [address] 07/21/2025 1:30 PM EDT Imaging Radiology [address] [place] [address] 08/04/2025 1:20 PM EDT Office Visit Family Medicine [address] [place] [phone] Dhruv Moss MD [address] [place] [address] [place] [address] Health Maintenance Due Date Last Done Comments *BISPHONATE OR OTHER ACCEPTABLE MEDICATION NEEDED FOR OSTEOPOROSIS (REFER TO SMARTSET #1146) 11/06/2023 Colonoscopy 05/06/2024 05/06/2019, 05/06/2019 CKD PHOS USE SMARTSET 45255 06/07/202405/14, 05/31/2023, 05/08/2023, Additional history exists COVID-19 [...] Additional history exists CKD HGB USE SMARTSET 81570 07/31/202507/31, 07/31/2024, 07/24/2024, Additional history exists DTap/Tdap Vaccines (3 - Td or Tdap) 11/10/2026 11/10/2016, 03/30/2011 VITAMIN D LEVEL ONCE IN A LIFETIME-USE SMARTSET# 55644 Completed 05/11/2015 RETIRED - COLONOSCOPY-EVERY 5 YRS [...] this encounter Medical Devices Implanted Type Area Tensile Tester Device Identifier Shelf Expiration Date Model / Serial / Lot Port Pwr Mri Isp Profile - [id number] Implanted:Qty: 1 on 07/24/2020 by Akash Castillo MD at OR [facility] Right: Chest CR BARD : PERIPHERAL VASCULAR 04/12/2021 [id number] / / [id number] documented as of this encounter Advance Directives [...] Agents on File Name Relationship Healthcare Agent [facility] Communication Juanita Silva Adult Child Health Care Agent Care Teams Merchandising Execution Manager Relationship Specialty Start Date End Date Dhruv Moss MD [address] [place] [address] [place] [address] PCP - General Family Medicine 08/27/21 documented as of this encounter
--- OUTSIDE RECORDS SUMMARY | 2024-10-10 00:33 | External Medical Summary | Summary of Care ---
Author Name Unknown Organization [facility] Address [address] [facility] [address] Phone [phone] Care Team Providers Care Set Up Operator Name Role Phone Dhruv Moss MD Primary Care Provide r Reason for Visit * Reason Onset Date Comments Health Maintenance 08/12/2024 Encounter Details Date Type Department Care Team (Late st Contact Info) Description 08/12/2024 Telephone Family Medicine [address] [phone] Dhruv Moss MD [address] [place] [address] [place] [address] Health Maintenance Allergies No known active allergiesdocumented as of this encounter (statuses as of 08/12/2024) Medications Medication Sig Dispensed Refills Start Date End Date Status Diclofenac Sodium 1 % External GelIndications:knee pain Apply topically to affected area . Apply to bilateral knees Active Prochlorperazine Maleate 10 MG Oral Tablet (Compazine)Indicatio ns:H/O allogeneic bone marrow transplant (HCC) Take by mouth 1 Tablet every 6 hours as needed for Nausea. 60 Tablet 3 12/09/2021 Active Horizon DiscoveryTouch Verio Flex System w/Device Kit Use as [...] chew 90 Capsule 1 04/01/2024 Active Pen [place] 32G X 4 MM Use as directed. [...] 24 Hour (Imdur)Indications:C oronary artery disease involving [place] coronary artery of [place] heart without angina pectoris,HTN, goal below 140/90 [...] as of this encounter (statuses as of 08/12/2024) Active Problems Patient Care Coordination No te Formatting of this note migh t be different from the original. Date of Transplant: 09/01/2021 Conditioning Regimen: Fludarabine / Busulfan 2 with post-transplant Cytoxan ABO/Rh: A Positive CMV status: CMV Positive--- GRID: [id number] 732 / DID: [id number] Matched Unrelated 10/24--- DPB1 Match ABO/Rh: A [...] Thrombocytopenia 12/06/2022 Last Assessment & Plan: Platelets 47075 on 03/20 Questionable hematuria Urinary incontinence 09/12/2022 [...] failure. Does not have any evidence of hddih-pxewac-jllz disease Last Assessment & Plan: Continues to [...] -continue venlafaxine Coronary artery disease invo lving [place] coronary artery of [place] heart without angina pectoris 06/12/2017 Overview: S/P EDIL to LAD on 06/12/17 Last Assessment & Plan: No angina - Continue atorvastatin, isosorbide, metoprolol - no ASA due to thrombocytopenia Dyslipidemia, goal LDL below 70 11/25/2011 Last Assessment & Plan: Patient having no issues. She continues on Lipitor 40 mg daily Last lab I will was that I can find were from [phone] Assessment/plan: Dyslipidemia with patient currently taking Lipitor [...] as of this encounter (statuses as of 08/12/2024) Resolved Problems Problem Noted Date Diagnosed Date [...] as of this encounter (statuses as of 08/12/2024) Immunizations Name Administration Dates Next Due COVID-19 [...] No 12/22/2023 Does the household have a [facility] source of income? (Household - for ages [...] encounter Miscellaneous Notes * Telephone Encounter - Lyudmila Reinoso LPN - 08/12/2024 2:23 PM EDT Care Gaps Comprehensive Care Outreach Last Office/Telemedicine Visit: 07/02/2024 (in office), Visit date not found (telemedicine) Next Office Visit: 01/13/2025 Hemoglobin AIC Results: Lab Results Component Value Date/Time HEMOGLOBIN A1C - [facility] 6.5 (H) 05/22/2024 08:27 AM HEMOGLOBIN A1C - [facility] 7.6 (H) 11/20/2023 01:19 PM HEMOGLOBIN A1C - [facility] 8.0 (H) 12/06/2022 12:02 PM HEMOGLOBIN A1C - [facility] 6.1 (H) 10/01/2020 03:24 PM HEMOGLOBIN A1C - [facility] 8.1 (H) 02/05/2020 10:48 AM HEMOGLOBIN A1C - [facility] 7.9 (H) 10/28/2019 12:42 PM BP Readings from Last 1 Encounters: 07/22/24 118/60 Reviewed Health Maintenance below: Health Maintenance Topic Date Due *BISPHONATE OR OTHER ACCEPTABLE MEDICATION NEEDED FOR OSTEOPOROSIS (REFER TO SMARTSET #1146) Never done Colonoscopy 05/06/2024 CKD PHOS USE SMARTSET 38337 06/07/2024 Influenza Vaccine (FLU shot) (1) 07/14/2024 COVID-19 Vaccine ( season) 2024 Albumin/Creatinine Ratio 09/15/2024 HbA1c 11/22/2024 Depression Monitoring 12/22/2024 Adult Wellness Visit 12/22/2024 GFR 12/27/2024 TSH 01/02/2025 Colon canceled aug labs Care Gap Outreach Action Taken: Left message and MyChart message sent documented in this encounter Plan of Treatment Upcoming Encounters Date Type Department Care Team (Late st Contact Info) Description 08/13/2024 8:30 AM EDT [facility] [address] [place] [address] Marisa Pacheco, RN [address] [place] [address] 08/27/2024 1:00 PM EDT Office Visit Pharmacy, [address] [place] [address] [place] [address] 08/28/2024 1:45 PM EDT Office Visit Ophthalmology, [facility] [address] [place] [address] Fernando Damon, [address] [place] [address] 08/29/2024 11:00 AM EDT [facility] Visit [facility], [facility] [address] [place] [address] Tremaine Morgan PA-C [address] [place] [address] 10/16/2024 1:45 PM EST Office Visit Hematology/Oncology [facility] [address] [facility] [place] [phone] Jitendra Aguero MD [address] [place] [address] 12/24/2024 2:30 PM EST Nurse Only Ancillary [address] [place] [address] [place], Nurse [address] [place] [address] 01/13/2025 11:40 AM EST Office Visit [address] [place] [phone] Dhruv Moss MD [address] [place] [address] [place] [address] 07/21/2025 1:30 PM EDT Imaging Radiology [address] [place] [address] 08/04/2025 1:20 PM EDT Office Visit [address] [place] [phone] Dhruv Moss MD [address] [place] [address] [place] [address] Health Maintenance Due Date Last Done Comments *BISPHONATE OR OTHER ACCEPTABLE MEDICATION NEEDED FOR OSTEOPOROSIS (REFER TO SMARTSET #1146) 11/06/2023 Colonoscopy 05/06/2024 05/06/2019, 05/06/2019 CKD PHOS USE SMARTSET 34484 06/07/202405/14, 05/31/2023, 05/08/2023, Additional history exists COVID-19 [...] Additional history exists CKD HGB USE SMARTSET 74600 08/07/202508/07, 08/07/2024, 07/31/2024, Additional history exists DTap/Tdap Vaccines (3 - Td or Tdap) 11/10/2026 11/10/2016, 03/30/2011 VITAMIN D LEVEL ONCE IN A LIFETIME-USE SMARTSET# 80894 Completed 05/11/2015 RETIRED - COLONOSCOPY-EVERY 5 YRS [...] this encounter Medical Devices Implanted Type Area Transistor Tester Device Identifier Shelf Expiration Date Model / Serial / Lot Port Pwr Mri Isp Profile - [id number] Implanted:Qty: 1 on 07/24/2020 by Akash Castillo MD at OR [facility] Right: Chest CR BARD : PERIPHERAL VASCULAR 04/12/2021 [id number] / / [id number] documented as of this encounter Advance Directives [...] on File Name Relationship [facility] Juanita Silva Adult Child Health Care Agent Care Teams Set Up Operator Relationship Specialty Start Date End Date Dhruv Moss MD [address] [place] [address] PCP - General Family Medicine 08/27/21 documented as of this encounter
--- OUTSIDE RECORDS SUMMARY | 2024-10-10 00:34 | External Medical Summary | Summary of Care ---
Author Name Unknown Organization [facility] Address [address] [facility] [address] Phone [phone] Care Team Providers Care Study Lead Name Role Phone Dhruv Moss MD Primary Care Provide r Reason for Visit * Reason Onset Date Comments Test Results 08/01/2024 Encounter Details Date Type Department Care Team (Late st Contact Info) Description 08/01/2024 Telephone Hematology/Oncology [facility] [address] [place] [address] Jitendra Aguero MD [address] [place] [address] Test Results Allergies No known active allergiesdocumented as of this encounter (statuses as of 08/01/2024) Medications Medication Sig Dispensed Refills Start Date End Date Status Diclofenac Sodium 1 % External GelIndications:knee pain Apply topically to affected area . Apply to bilateral knees Active Prochlorperazine Maleate 10 MG Oral Tablet (Compazine)Indicatio ns:H/O allogeneic bone marrow transplant (HCC) Take by mouth 1 Tablet every 6 hours as needed for Nausea. 60 Tablet 3 12/09/2021 Active NativeXTouch Verio Flex System w/Device Kit Use as [...] chew 90 Capsule 1 04/01/2024 Active Pen [place] 32G X 4 MM Use as [...] 24 Hour (Imdur)Indications:C oronary artery disease involving [place] coronary artery of [place] heart without angina pectoris,HTN, goal below 140/90 [...] of less than 8.0% ([facility]) Use to test blood sugar three times a day DXe11.9 300 Each 3 07/22/2024 Active Insulin Glargine Solostar 100 UNIT/ML Subcutaneous Solution Pen-injector (Lantus SoloStar) Inject 16 Units under the skin in the morning. 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 Date of Transplant: 09/01/2021 Conditioning Regimen: Fludarabine / Busulfan 2 with post-transplant Cytoxan ABO/Rh: A Positive CMV status: CMV Positive--- GRID: [id number] 732 / DID: [id number] Matched Unrelated 10/24--- DPB1 Match ABO/Rh: A [...] Thrombocytopenia 12/06/2022 Last Assessment & Plan: Platelets 27189 on 03/20 Questionable hematuria Urinary incontinence 09/12/2022 [...] failure. Does not have any evidence of ilwai-misrab-jhvx disease Last Assessment & Plan: Continues to [...] -continue venlafaxine Coronary artery disease invo lving [place] coronary artery of [place] heart without angina pectoris 06/12/2017 Overview: S/P EDIL to LAD on 06/12/17 Last Assessment & Plan: No angina - Continue atorvastatin, isosorbide, metoprolol - no ASA due to thrombocytopenia Dyslipidemia, goal LDL below 70 11/25/2011 Last Assessment & Plan: Patient having no issues. She continues on Lipitor 40 mg daily Last lab I will was that I can find were from [phone] Assessment/plan: Dyslipidemia with patient currently taking Lipitor [...] as of this encounter (statuses as of 08/01/2024) Resolved Problems Problem Noted Date Diagnosed Date [...] as of this encounter (statuses as of 08/01/2024) Immunizations Name Administration Dates Next Due COVID-19 [...] No 12/22/2023 Does the household have a [facility] source of income? (Household - for ages [...] encounter Miscellaneous Notes * Telephone Encounter - Kasia Duran OSA - 08/01/2024 8:46 AM EDT Eliazar from [facility] calling in- he is looking to speak with Dawson Barth. Please call him back [facility] at [phone]. He would like to speak with you about availability at blood bank for pt. * Telephone Encounter - Makenzie Barth LPN - 08/01/2024 8:34 AM EDT Patients daughter states patient has concerns in regards to the wait times at the ED. She states they are willing to wait until tomorrow Monday08/02/2024 to have the infusion done at [facility]. Advised daughter if patient develops any symptoms to have her go the ED today. She verbalized understanding. Patient to receive 1 unit of platelets and 1 unit of prbc. Called [facility] blood bank. Spoke with Oskar. Spoke with Dona. Called [facility] central scheduling. Patient scheduled for 08/02/2024 at 11:00 am. Patient' daughter verbalized understanding of appt time. Faxed order to [facility]/ blood bank. * Telephone Encounter - Makenzie Barth LPN - 08/01/2024 8:09 AM EDT Called and spoke with patient's daughter Juanita, informed that at this time there is no platelet availability at [facility] for outpatient today. She verbalized understanding. Advised daughter we can have patient go through to the [facility] ED or arrange for a blood transfusion at the [facility]. Daughter verbalized understanding and states she will tell patient to the [facility] ER today, daughter reports she "saw" the patient's blood results and would like the patient treated today. She states she has concerns in regards to her Father, patient's spouse driving for long distances. She states if the patient decides for [facility] she will make us aware. She denies any questions at this time. * Telephone Encounter - Makenzie Barth LPN - 08/01/2024 8:03 AM EDT Spoke with Oskar at [facility] BB, he states they have no platelets available for transfusion today. He states their shipment does not come until 8:00 pm or 9:00 pm this evening. * Telephone Encounter - Makenzie Barth LPN - 08/01/2024 7:56 AM EDT ----- Message from Jitendra Aguero MD sent at 08/01/2024 6:25 AM EDT ----- Blood workup done on 07/31/2024: - WBC 14,000, H&H of 6.7/20.4, platelet count of less than 3000. Would like to give her one unit of PRBC and one pack of platelet at [facility]. documented in this encounter Plan of Treatment Upcoming Encounters Date Type Department Care Team (Late st Contact Info) Description 08/07/2024 7:10 AM EDT Laboratory Lab Mobile Phlebotomy [facility] [address] [place] [address] [facility], G[facility] Mobile Home Draw [address] [place] [address] [place] [address] 08/13/2024 8:30 AM EDT Home Visit [facility] [address] [facility] [place] [address] Marisa Pacheco, RN [address] [place] [address] 08/27/2024 1:00 PM EDT Office Visit Pharmacy, [address] [place] [address] [place] [address] 08/28/2024 1:45 PM EDT Office Visit Ophthalmology, [facility] [address] [place] [address] Fernando Damon, [address] [place] [address] 08/29/2024 11:00 AM EDT [facility] [address] [place] [address] Tremaine Morgan PA-C [address] [place] [address] 10/16/2024 1:45 PM EST Office Visit Hematology/Oncology [facility] [address] [facility] [place] [phone] Jitendra Aguero MD [address] [place] [address] 12/24/2024 2:30 PM EST Nurse Only Ancillary [address] [place] [address] [place], Nurse [address] [place] [address] 01/13/2025 11:40 AM EST Office Visit Family Medicine [address] [place] [phone] Dhruv Moss MD [address] [place] [address] [place] [address] 07/21/2025 1:30 PM EDT Imaging Radiology [address] [place] [address] 08/04/2025 1:20 PM EDT Office Visit Family Medicine [address] [place] [phone] Dhruv Moss MD [address] [place] [address] [place] [address] Health Maintenance Due Date Last Done Comments *BISPHONATE OR OTHER ACCEPTABLE MEDICATION NEEDED FOR OSTEOPOROSIS (REFER TO SMARTSET #1146) 11/06/2023 Colonoscopy 05/06/2024 05/06/2019, 05/06/2019 CKD PHOS USE SMARTSET 85755 06/07/202405/14, 05/31/2023, 05/08/2023, Additional history exists COVID-19 [...] Additional history exists CKD HGB USE SMARTSET 64066 07/31/202507/31, 07/31/2024, 07/24/2024, Additional history exists DTap/Tdap Vaccines (3 - Td or Tdap) 11/10/2026 11/10/2016, 03/30/2011 VITAMIN D LEVEL ONCE IN A LIFETIME-USE SMARTSET# 32263 Completed 05/11/2015 RETIRED - COLONOSCOPY-EVERY 5 YRS [...] this encounter Medical Devices Implanted Type Area Screening Nurse Device Identifier Shelf Expiration Date Model / Serial / Lot Port Pwr Mri Isp Profile - [id number] Implanted:Qty: 1 on 07/24/2020 by Akash Castillo MD at OR [facility] Right: Chest CR BARD : PERIPHERAL VASCULAR 04/12/2021 [id number] / / [id number] documented as of this encounter Advance Directives [...] Agents on File Name Relationship Healthcare Agent [facility] Communication Juanita Silva Adult Child Health Care Agent Care Teams Study Lead Relationship Specialty Start Date End Date Dhruv Moss MD [address] [place] [address] [place] [address] PCP - General Family Medicine 08/27/21 documented as of this encounter
--- OUTSIDE RECORDS SUMMARY | 2024-10-10 00:34 | External Medical Summary | Summary of Care ---
Author Name Unknown Organization [facility] Address [address] [place] [facility] [place] [address] Phone [phone] Care Team Providers Care Paint Booth Operator Name Role Phone Dhruv Moss MD Primary Care Provide r Reason for Visit * Reason Onset Date Comments Fax 07/26/2024 Encounter Details Date Type Department Care Team (Late st Contact Info) Description 07/26/2024 Telephone Family Medicine [address] [phone] Dhruv Moss MD [address] [place] [address] [place] [address] Fax Allergies No known [...] for Nausea. 60 Tablet 3 12/09/2021 Active BeVocalTouch Verio Flex System w/Device Kit Use as [...] chew 90 Capsule 1 04/01/2024 Active Pen [place] 32G X 4 MM Use as directed. 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 Does not have any evidence of qiric-lwgkfz-jxeg disease Last Assessment & Plan: Continues to [...] -continue venlafaxine Coronary artery disease invo lving [place] coronary artery of che[place] heart without angina pectoris 06/12/2017 Overview: S/P EDIL to LAD on 06/12/17 Last Assessment & Plan: No angina - Continue atorvastatin, isosorbide, metoprolol - no ASA due to thrombocytopenia Dyslipidemia, goal LDL below 70 11/25/2011 Last Assessment & Plan: Patient having no issues. She continues on Lipitor 40 mg daily Last lab I will was that I can find were from [phone] Assessment/plan: Dyslipidemia with patient currently taking Lipitor [...] No 12/22/2023 Does the household have a [facility] source of income? (Household - [...] on file Are you (or your family) luo eless or worried that you might be [...] encounter Miscellaneous Notes * Telephone Encounter - Cecille Gilbert OSA - 07/26/2024 1:20 PM EDT Caller requesting the following information to be faxed: Name/Company of caller: [facility] Information requested to be faxed: Es will be faxing over diabetic supplies form to be filled out by PCP Fax number: [phone] Attention to Name/Company: [facility] Any additional information?: No documented in this encounter Plan of Treatment Upcoming Encounters Date Type Department Care Team (Late st Contact Info) Description 08/07/2024 7:10 AM EDT Laboratory Lab Mobile Phlebotomy [facility] [address] [facility] [place] [address] [facility], Gml Mobile Home Draw [address] [facility] [place] [address] 08/13/2024 8:30 AM EDT Home Visit [facility] [address] [facility] [place] [address] Marisa Pacheco, TANYA [address] [facility] [place] [address] 08/27/2024 1:00 PM EDT Office Visit Pharmacy, [address] [place] [address] [place] [address] 08/28/2024 1:45 PM EDT Office Visit Ophthalmology, [facility] 132 [facility] [place] [address] Fernando Damon DO [address] [place] [address] 08/29/2024 11:00 AM EDT [facility], [facility] [address] [place] [address] Tremaine Morgan PA-C [address] [place] [address] 10/16/2024 1:45 PM EST Office Visit Hematology/Oncology [facility] [address] [facility] [place] [phone] Jitendra Aguero MD [address] [facility] [place] [address] 12/24/2024 2:30 PM EST Nurse Only Ancillary [address] [place] [address] [place], Nurse Annual [address] [place] [address] 01/13/2025 11:40 AM EST Office Visit Family Medicine [address] [place] [phone] Dhruv Moss MD [address] [place] [address] [place] [address] 07/21/2025 1:30 PM EDT Imaging Radiology [address] [place] [address] 08/04/2025 1:20 PM EDT Office Visit Family [address] [place] [phone] Dhruv Moss MD [address] [place] [address] [place] [address] Health Maintenance Due Date Last Done Comments *BISPHONATE OR OTHER ACCEPTABLE MEDICATION NEEDED FOR OSTEOPOROSIS (REFER TO SMARTSET #1146) 11/06/2023 Colonoscopy 05/06/2024 05/06/2019, 05/06/2019 CKD PHOS USE SMARTSET 22878 06/07/2024/04/2023, 05/31/2023, 05/08/2023, Additional history exists COVID-19 [...] Additional history exists CKD HGB USE SMARTSET 85640 07/31/202507/31, 07/31/2024, 07/24/2024, Additional history exists DTap/Tdap Vaccines (3 - Td or Tdap) 11/10/2026 11/10/2016, 03/30/2011 VITAMIN D LEVEL ONCE IN A LIFETIME-USE SMARTSET# [id number] Completed 05/11/2015 RETIRED - COLONOSCOPY-EVERY 5 YRS [...] this encounter Medical Devices Implanted Type Area Ultrasonographer Device Identifier Shelf Expiration Date Model / Serial / Lot Port Pwr Mri Isp Profile - [id number] Implanted:Qty: 1 on 07/24/2020 by Akash Castillo MD at OR [facility] Right: Chest CR BARD : PERIPHERAL VASCULAR 04/12/2021 [id number] / / [id number] documented as of this encounter Advance Directives [...] Agents on File Name Relationship Healthcare Agent [facility] Communication Juanita Silva Adult Child Health Care Agent Care Teams Paint Booth Operator Relationship Specialty Start Date End Date Dhruv Moss MD [address] [place] [address] [phone] PCP - General Family Medicine 08/27/21 documented as of this encounter
--- OUTSIDE RECORDS SUMMARY | 2024-10-10 00:34 | External Medical Summary | Summary of Care ---
Author Name Unknown Organization [facility] [address] [facility] [address] Phone [phone] Care Team Providers Care Assistant Food Service Manager Name Role Phone Dhruv Moss MD Primary Care Provide r Reason for Visit * Reason Onset Date Comments Test Results 08/01/2024 Encounter Details Date Type Department Care Team (Late st Contact Info) Description 08/01/2024 Telephone Hematology/Oncology [facility] [address] [place] [phone] Jitendra Aguero MD [address] [place] [address] Test Results Allergies No known active allergiesdocumented [...] for Nausea. 60 Tablet 3 12/09/2021 Active BG MedicineTouch Verio Flex System w/Device Kit Use as [...] chew 90 Capsule 1 04/01/2024 Active Pen [place] 32G X 4 MM Use as directed. 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 Does not have any evidence of ziymb-eoszua-ajry disease Last Assessment & Plan: Continues to [...] -continue venlafaxine Coronary artery disease invo lving [place] coronary artery of [place] heart without angina pectoris 06/12/2017 Overview: S/P EDIL to LAD on 06/12/17 Last Assessment & Plan: No angina - Continue atorvastatin, isosorbide, metoprolol - no ASA due to thrombocytopenia Dyslipidemia, goal LDL below 70 11/25/2011 Last Assessment & Plan: Patient having no issues. She continues on Lipitor 40 mg daily Last lab I will was that I can find were from [phone] Assessment/plan: Dyslipidemia with patient currently taking Lipitor [...] No 12/22/2023 Does the household have a [facility] source of income? (Household - [...] Monday08/02/2024 to have the infusion done at [facility]. Advised daughter if patient develops any symptoms to have her go the ED today. She verbalized understanding. Patient to receive 1 unit of platelets and 1 unit of prbc. Called [facility] blood bank. Spoke with Oskar. Spoke with Dona. Called [facility] central scheduling. Patient scheduled for 08/02/2024 at 11:00 am. Patient' daughter verbalized understanding of appt time. Faxed order to [facility]/ blood bank. * Telephone Encounter - Makenzie Barth LPN - 08/01/2024 8:09 AM EDT Called and spoke with patient's daughter Juanita, informed that at this time there is no platelet availability at [facility] for outpatient today. She verbalized understanding. Advised daughter we can have patient go through to the [facility] ED or arrange for a blood transfusion at the [facility]. Daughter verbalized understanding and states she will tell patient to the [facility] ER today, daughter reports she "saw" the patient's blood results and would like the patient treated today. She states she has concerns in regards to her Father, patient's spouse driving for long distances. She states if the patient decides for [facility] she will make us aware. She denies any questions at this time. * Telephone Encounter - Makenzie Barth LPN - 08/01/2024 8:03 AM EDT Spoke with Oskar at [facility] BB, he states they have no [...] PRBC and one pack of platelet at [facility]. documented in this encounter Plan of Treatment Upcoming Encounters Date Type Department Care Team (Late st Contact Info) Description 08/07/2024 7:10 AM EDT Laboratory Lab Mobile Phlebotomy [facility] [address] [place] [address] [facility], Gml Mobile Home Draw [address] [place] [address] 08/13/2024 8:30 AM EDT Home Visit [facility] [address] [place] [address] Marisa Pacheco, RN [address] [place] [address] 08/27/2024 1:00 PM EDT Office Visit Pharmacy, [address] [place] [address] [place] [address] 08/28/2024 1:45 PM EDT Office Visit Ophthalmology, [facility] [address] [place] [address] Fernando Damon DO [address] [place] [address] 08/29/2024 11:00 AM EDT [facility] [address] [place] [address] Tremaine Morgan PA-C [address] [place] [address] 10/16/2024 1:45 PM EST Office Visit Hematology/Oncology [facility] 200 [facility] [place] [phone] Jitendra Aguero MD [address] [facility] [place] [address] 12/24/2024 2:30 PM EST Nurse Only Ancillary [address] [place] [address] [place], Nurse [address] [place] [address] 01/13/2025 11:40 AM EST Office Visit Family Medicine [address] [place] [phone] Dhruv Moss MD [address] [place] [address] [place] [address] 07/21/2025 1:30 PM EDT Imaging Radiology [address] [place] [address] 08/04/2025 1:20 PM EDT Office Visit Family Medicine [address] [place] [phone] Dhruv Moss MD [address] [place] [address] [place] [address] Health Maintenance Due Date Last Done Comments *BISPHONATE OR OTHER ACCEPTABLE MEDICATION NEEDED FOR OSTEOPOROSIS (REFER TO SMARTSET #1146) 11/06/2023 Colonoscopy 05/06/2024 05/06/2019, 05/06/2019 CKD PHOS USE SMARTSET 83116 06/07/202405/14, 05/31/2023, 05/08/2023, Additional history exists COVID-19 [...] Additional history exists CKD HGB USE SMARTSET 66291 07/31/202507/31, 07/31/2024, 07/24/2024, Additional history exists DTap/Tdap Vaccines (3 - Td or Tdap) 11/10/2026 11/10/2016, 03/30/2011 VITAMIN D LEVEL ONCE IN A LIFETIME-USE SMARTSET# 85700 Completed 05/11/2015 RETIRED - COLONOSCOPY-EVERY 5 YRS [...] this encounter Medical Devices Implanted Type Area Human Resources Compensation Analyst Device Identifier Shelf Expiration Date Model / Serial / Lot Port Pwr Mri Isp Profile - [id number] Implanted:Qty: 1 on 07/24/2020 by Akash Castillo MD at OR [facility] Right: Chest CR BARD : PERIPHERAL VASCULAR 04/12/2021 [id number] / / [id number] documented as of this encounter Advance Directives [...] Agents on File Name Relationship Healthcare Agent [facility] Communication Juanita Sha Adult Child Health Care Agent Care Teams Assistant Food Service Manager Relationship Specialty Start Date End Date Dhruv Moss MD [address] [place] [address] [place] [address] PCP - General Family Medicine 08/27/21 documented as of this encounter
--- OUTSIDE RECORDS SUMMARY | 2024-10-10 00:34 | External Medical Summary | Summary of Care ---
Author Name Unknown Organization [facility] Address [address] [facility] [address] Phone [phone] Care Team Providers Care Concrete Pump Operator Helper Name Role Phone Dhruv Moss MD Primary Care Provide r Reason for Visit * Reason Onset Date Comments Fax 07/26/2024 Encounter Details Date Type Department Care Team (Late st Contact Info) Description 07/26/2024 Telephone Family Medicine [address] [phone] Dhruv Moss MD [address] [place] [address] [place] [address] Fax Allergies No known active allergiesdocumented as of this encounter (statuses as of 08/02/2024) Medications Medication Sig Dispensed Refills Start Date End Date Status Diclofenac Sodium 1 % External GelIndications:knee pain Apply topically to affected area . Apply to bilateral knees Active Prochlorperazine Maleate 10 MG Oral Tablet (Compazine)Indicatio ns:H/O allogeneic bone marrow transplant (HCC) Take by mouth 1 Tablet every 6 hours as needed for Nausea. 60 Tablet 3 12/09/2021 Active Net ElementTouch Verio Flex System w/Device Kit Use as [...] chew 90 Capsule 1 04/01/2024 Active Pen [place] 32G X 4 MM Use as directed. [...] 24 Hour (Imdur)Indications:C oronary artery disease involving [place] coronary artery of [place] heart without angina pectoris,HTN, goal below 140/90 [...] goal of less than 8.0% ([facility]) Use to test blood sugar three times a day DXe11.9 300 Each 3 07/22/2024 Active Insulin Glargine Solostar 100 UNIT/ML Subcutaneous Solution Pen-injector (Lantus SoloStar) Inject 16 Units under the skin in the morning. 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 Date of Transplant: 09/01/2021 Conditioning Regimen: Fludarabine / Busulfan 2 with post-transplant Cytoxan ABO/Rh: A Positive CMV status: CMV Positive--- GRID: [id number] [id number] / DID: [id number] Matched Unrelated 10/24--- DPB1 Match ABO/Rh: A [...] Thrombocytopenia 12/06/2022 Last Assessment & Plan: Platelets 93407 on 03/20 Questionable hematuria Urinary incontinence 09/12/2022 [...] failure. Does not have any evidence of lgert-zerdxp-xjwy disease Last Assessment & Plan: Continues to [...] -continue venlafaxine Coronary artery disease invo lving [place] coronary artery of [place] heart without angina pectoris 06/12/2017 Overview: S/P EDIL to LAD on 06/12/17 Last Assessment & Plan: No angina - Continue atorvastatin, isosorbide, metoprolol - no ASA due to thrombocytopenia Dyslipidemia, goal LDL below 70 11/25/2011 Last Assessment & Plan: Patient having no issues. She continues on Lipitor 40 mg daily Last lab I will was that I can find were from [phone] Assessment/plan: Dyslipidemia with patient currently taking Lipitor [...] as of this encounter (statuses as of 08/02/2024) Resolved Problems Problem Noted Date Diagnosed Date [...] as of this encounter (statuses as of 08/02/2024) Immunizations Name Administration Dates Next Due COVID-19 [...] be filled out by PCP Fax number: [phone] Attention to Name/Company: [facility] Any additional information?: No documented in this encounter Plan of Treatment Upcoming Encounters Date Type Department Care Team (Late st Contact Info) Description 08/07/2024 7:10 AM EDT Laboratory Lab Mobile Phlebotomy [facility] [address] [employer] [address] [place] [address] [facility], Gml Mobile Home Draw [address] [place] [address] 08/13/2024 8:30 AM EDT Home Visit [facility] [place], [facility] [address] [place] [address] Marisa Pacheco, TANYA 132 [place] [address] 08/27/2024 1:00 PM EDT Office Visit Pharmacy, [address] [place] [address] [place] [address] 08/28/2024 1:45 PM EDT Office Visit Ophthalmology, [facility] [address] [place] [address] Fernando Damon, [address] [place] [address] 08/29/2024 11:00 AM EDT [facility], [facility] [address] [place] [address] Tremaine Morgan PA-C [address] [place] [address] 10/16/2024 1:45 PM EST Office Visit Hematology/Oncology [facility] [address] [place] [phone] Jitendra Aguero MD 200 [facility] [place] [address] 12/24/2024 2:30 PM EST Nurse Only Ancillary [address] [place] [address] [place], Nurse [address] [place] [address] 01/13/2025 11:40 AM EST Office Visit Family Medicine [address] [place] [phone] Dhruv Moss MD [address] [place] [address] [place] [address] 07/21/2025 1:30 PM EDT Imaging Radiology [address] [place] [address] 08/04/2025 1:20 PM EDT Office Visit Family Medicine [address] [place] [phone] Dhruv Moss MD [address] [place] [address] [place] [address] Health Maintenance Due Date Last Done Comments *BISPHONATE OR OTHER ACCEPTABLE MEDICATION NEEDED FOR OSTEOPOROSIS (REFER TO SMARTSET #1146) 11/06/2023 Colonoscopy 05/06/2024 05/06/2019, 05/06/2019 CKD PHOS USE SMARTSET 29839 06/07/202405/14, 05/31/2023, 05/08/2023, Additional history exists COVID-19 [...] Additional history exists CKD HGB USE SMARTSET 32913 07/31/202507/31, 07/31/2024, 07/24/2024, Additional history exists DTap/Tdap Vaccines (3 - Td or Tdap) 11/10/2026 11/10/2016, 03/30/2011 VITAMIN D LEVEL ONCE IN A LIFETIME-USE SMARTSET# 31703 Completed 05/11/2015 RETIRED - COLONOSCOPY-EVERY 5 YRS [...] this encounter Medical Devices Implanted Type Area Game Farm Helper Device Identifier Shelf Expiration Date Model / Serial / Lot Port Pwr Mri Isp Profile - [id number] Implanted:Qty: 1 on 07/24/2020 by Akash Castillo MD at OR [facility] Right: Chest CR BARD : PERIPHERAL VASCULAR 04/12/2021 [id number] / / [id number] documented as of this encounter Advance Directives [...] Agents on File Name Relationship Healthcare Agent [facility] Communication Juanita Silva Adult Child Health Care Agent Care Teams Concrete Pump Operator Helper Relationship Specialty Start Date End Date Dhruv Moss MD [address] [place] [address] [place] [address] PCP - General Family Medicine 08/27/21 documented as of this encounter
--- OUTSIDE RECORDS SUMMARY | 2024-10-10 00:34 | External Medical Summary | Summary of Care ---
Author Name Unknown Organization [facility] Address [address] [facility] [address] Phone [phone] Care Team Providers Care Structural Manager Name Role Phone Dhruv Moss MD Primary Care Provide r Reason for Visit * Reason Onset Date Comments Test Results 08/01/2024 Encounter Details Date Type Department Care Team (Late st Contact Info) Description 08/01/2024 Telephone Hematology/Oncology [facility] [address] [place] [phone] Jitendra Aguero MD [address] [place] [address] Test Results Allergies No known active allergiesdocumented [...] for Nausea. 60 Tablet 3 12/09/2021 Active Hmizate.maTouch Verio Flex System w/Device Kit Use as [...] chew 90 Capsule 1 04/01/2024 Active Pen [place] 32G X 4 MM Use as directed. [...] 24 Hour (Imdur)Indications:C oronary artery disease involving [place] coronary artery of [place] heart without angina pectoris,HTN, goal below [...] goal of less than 8.0% ([facility]) Use to test blood sugar three times a day DXe11.9 300 Each 3 07/22/2024 Active Insulin Glargine Solostar 100 UNIT/ML Subcutaneous Solution Pen-injector (Lantus SoloStar) Inject 16 Units under the skin in the morning. 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 Does not have any evidence of ymlok-umppse-juzk disease Last Assessment & Plan: Continues to [...] -continue venlafaxine Coronary artery disease invo lving [place] coronary artery of [place] heart without angina pectoris 06/12/2017 Overview: S/P EDIL to LAD on 06/12/17 Last Assessment & Plan: No angina - Continue atorvastatin, isosorbide, metoprolol - no ASA due to thrombocytopenia Dyslipidemia, goal LDL below 70 11/25/2011 Last Assessment & Plan: Patient having no issues. She continues on Lipitor 40 mg daily Last lab I will was that I can find were from [phone] Assessment/plan: Dyslipidemia with patient currently taking Lipitor [...] No 12/22/2023 Does the household have a [facility] source of income? (Household - for ages [...] Encounter - Makenzie Barth LPN - 08/01/2024 9:16 AM EDT Called and spoke with patient's daughter Juanita. Informed her that [facility] at [facility] can do the patient's transfusions today at 11:00 am instead of tomorrow. Per Juanita the patient would like to wait until her scheduled appointment at [facility] tomorrow at 11:00 am. She denies the patient has any complaints at this time. Called and informed [facility] patient will keep her appointment with them tomorrow at 11:00 am. TANYA Luongverbalized understanding and verbally confirmed patient is scheduled tomorrow at 11:00 am. * Telephone Encounter - Makenzie Barth LPN - 08/01/2024 9:12 AM EDT Zakiya Oskar's call at [facility] BB. He states they have just received platelets and go do the patient's transfusions today. This nurse verbalized understanding and will notify the patient * Telephone Encounter - Kasia Duran OSA - 08/01/2024 8:46 AM EDT Eliazar from [facility] calling in- he is looking to speak with Dawson Barth. Please call him back [facility] at [phone]. He would like to speak with you about availability at blood bank for pt. * Telephone Encounter - Makenzie Barth LPN - 08/01/2024 8:34 AM EDT Patients daughter states patient has concerns in regards to the wait times at the ED. She states they are willing to wait until tomorrow Monday08/02/2024 to have the infusion done at [facility]. Advised daughter if patient develops any symptoms to have her go the ED today. She verbalized understanding. Patient to receive 1 unit of platelets and 1 unit of prbc. Called [facility] blood bank. Spoke with Oskar. Spoke with Dona. Called [facility] central scheduling. Patient scheduled for 08/02/2024 at 11:00 am. Patient' daughter verbalized understanding of appt time. Faxed order to [facility]/ blood bank. * Telephone Encounter - Makenzie Barth LPN - 08/01/2024 8:09 AM EDT Called and spoke with patient's daughter Juanita, informed that at this time there is no platelet availability at [facility] for outpatient today. She verbalized understanding. Advised daughter we can have patient go through to the [facility] ED or arrange for a blood transfusion at the [facility]. Daughter verbalized understanding and states she will tell patient to the [facility] ER today, daughter reports she "saw" the patient's blood results and would like the patient treated today. She states she has concerns in regards to her Father, patient's spouse driving for long distances. She states if the patient decides for [facility] she will make us aware. She denies any questions at this time. * Telephone Encounter - Makenzie Barth LPN - 08/01/2024 8:03 AM EDT Spoke with Oskar at [facility] [place], he states they have no platelets available [...] PRBC and one pack of platelet at [facility]. documented in this encounter Plan of Treatment Upcoming Encounters Date Type Department Care Team (Late st Contact Info) Description 08/07/2024 7:10 AM EDT Laboratory Lab Mobile Phlebotomy [facility] [address] [place] [address] M[facility], Gml Mobile Home Draw [address] [place] [address] 08/13/2024 8:30 AM EDT [facility] Visit [facility] [address] [place] [address] Marisa Pacheco RN [address] [place] [address] 08/27/2024 1:00 PM EDT Office Visit Pharmacy, [address] [place] [address] [place] [address] 08/28/2024 1:45 PM EDT Office Visit Ophthalmology, [facility] [address] [place] [address] Fernando Damon DO [address] [place] [address] 08/29/2024 11:00 AM EDT [facility] Visit [facility] [address] [place] [address] Tremaine Morgan PA-C [address] [place] [address] 10/16/2024 1:45 PM EST Office Visit Hematology/Oncology [facility] [address] [facility] [place] [address] Jitendra Aguero MD [address] [place] [address] 12/24/2024 2:30 PM EST Nurse Only Ancillary [address] [place] [address] [place], Nurse Annual [address] [place] [address] 01/13/2025 11:40 AM EST Office Visit Family Medicine [address] [place] [phone] Dhruv Moss MD [address] [place] [address] [place] [address] 07/21/2025 1:30 PM EDT Imaging Radiology [address] [place] [address] 08/04/2025 1:20 PM EDT Office Visit Family [address] [place] [phone] Dhruv Moss MD [address] [place] [address] [place] [address] Health Maintenance Due Date Last Done Comments *BISPHONATE OR OTHER ACCEPTABLE MEDICATION NEEDED FOR OSTEOPOROSIS (REFER TO SMARTSET #1146) 11/06/2023 Colonoscopy 05/06/2024 05/06/2019, 05/06/2019 CKD PHOS USE SMARTSET 91373 06/07/202405/14, 05/31/2023, 05/08/2023, Additional history exists COVID-19 [...] Additional history exists CKD HGB USE SMARTSET 15978 07/31/202507/31, 07/31/2024, 07/24/2024, Additional history exists DTap/Tdap Vaccines (3 - Td or Tdap) 11/10/2026 11/10/2016, 03/30/2011 VITAMIN D LEVEL ONCE IN A LIFETIME-USE SMARTSET# 80384 Completed 05/11/2015 RETIRED - COLONOSCOPY-EVERY 5 YRS [...] this encounter Medical Devices Implanted Type Area Grain Combiner Device Identifier Shelf Expiration Date Model / Serial / Lot Port Pwr Mri Isp Profile - [id number] Implanted:Qty: 1 on 07/24/2020 by Akash Castillo MD at OR [facility] Right: Chest CR BARD : PERIPHERAL VASCULAR 04/12/2021 [id number] / / [id number] documented as of this encounter Advance Directives [...] Adult Child Health Care Agent Care Teams Structural Manager Relationship Specialty Start Date End Date Dhruv Moss MD [address] [place] [address] [place] [address] PCP - General Family Medicine 08/27/21 documented as of this encounter
--- OUTSIDE RECORDS SUMMARY | 2024-10-10 00:34 | External Medical Summary | Summary of Care ---
Author Name Unknown Organization [facility] Address [address] [facility] [address] Phone [phone] Care Team Providers Care Printer Slotter Feeder Name Role Phone Dhruv Moss MD Primary Care Provide r Reason for Visit * Reason Onset Date Comments Test Results 08/01/2024 Encounter Details Date Type Department Care Team (Late st Contact Info) Description 08/01/2024 Telephone Hematology/Oncology [facility] [address] [place] [address] Jitendra Aguero MD [address] [place] [address] Test Results Allergies No known active allergiesdocumented [...] for Nausea. 60 Tablet 3 12/09/2021 Active HKS MediaGroupTouch Verio Flex System w/Device Kit Use as [...] chew 90 Capsule 1 04/01/2024 Active Pen [place] 32G X 4 MM Use as directed. 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 Does not have any evidence of zntno-idhqrz-hogb disease Last Assessment & Plan: Continues to [...] -continue venlafaxine Coronary artery disease invo lving [place] coronary artery of [place] heart without angina pectoris 06/12/2017 Overview: S/P EDIL to LAD on 06/12/17 Last Assessment & Plan: No angina - Continue atorvastatin, isosorbide, metoprolol - no ASA due to thrombocytopenia Dyslipidemia, goal LDL below 70 11/25/2011 Last Assessment & Plan: Patient having no issues. She continues on Lipitor 40 mg daily Last lab I will was that I can find were from [phone] Assessment/plan: Dyslipidemia with patient currently taking Lipitor [...] No 12/22/2023 Does the household have a [facility] source of income? (Household - for ages [...] time there is no platelet availability at [facility] for outpatient today. She verbalized understanding. Advised daughter we can have patient go through to the [facility] ED or arrange for a blood transfusion at the [facility]. Daughter verbalized understanding and states she will tell patient to the [facility] ER today, daughter reports she "saw" the patient's blood results and would like the patient treated today. She states she has concerns in regards to her Father, patient's spouse driving for long distances. She states if the patient decides for [facility] she will make us aware. She denies any questions at this time. * Telephone Encounter - Makenzie Barth LPN - 08/01/2024 8:03 AM EDT Spoke with Oskar at [facility] BB, he states they have no platelets [...] EDT Laboratory Lab Mobile Phlebotomy [facility] [address] [facility] [place] [address] Mv[facility], Gml Mobile Home Draw [address] [place] [address] 08/13/2024 8:30 AM EDT Home Visit [facility] at Home, [facility] [address] [place] [address] Marisa Pacheco RN 132 [place] [address] 08/27/2024 1:00 PM EDT Office Visit Pharmacy, [address] [place] [address] [place] [address] 08/28/2024 1:45 PM EDT Office Visit Ophthalmology, [facility] [address] [place] [address] Fernando Damon, 132 [place] [address] 08/29/2024 11:00 AM EDT [facility] [address] [place] [address] Tremaine Morgan PA-C [address] [place] [address] 10/16/2024 1:45 PM EST Office Visit Hematology/Oncology [facility] [address] [place] [address] Jitendra Aguero MD [address] [facility] [place] [facility] [address] [address] [place] [address] 12/24/2024 2:30 PM EST Nurse Only Ancillary [address] [place] [address] [place], Nurse Annual [facility] [address] [place] [address] [place] [address] 01/13/2025 11:40 AM EST Office Visit Family Medicine [address] [place] [phone] Dhruv Moss MD [address] [place] [address] [place] [address] 07/21/2025 1:30 PM EDT Imaging Radiology [address] [place] [address] 08/04/2025 1:20 PM EDT Office Visit Family Medicine [address] [place] [phone] Dhruv Moss MD [address] [place] [address] [place] [address] Health Maintenance Due Date Last Done Comments *BISPHONATE OR OTHER ACCEPTABLE MEDICATION NEEDED FOR OSTEOPOROSIS (REFER TO SMARTSET #1146) 11/06/2023 Colonoscopy 05/06/2024 05/06/2019, 05/06/2019 CKD PHOS USE SMARTSET 15006 06/07/2024 07/04/2023, 05/31/2023, 05/08/2023, Additional history exists [...] Additional history exists CKD HGB USE SMARTSET 08140 07/31/202507/31, 07/31/2024, 07/24/2024, Additional history exists DTap/Tdap Vaccines (3 - Td or Tdap) 11/10/2026 11/10/2016, 03/30/2011 VITAMIN D LEVEL ONCE IN A LIFETIME-USE SMARTSET# 73225 Completed 05/11/2015 RETIRED - COLONOSCOPY-EVERY 5 YRS [...] this encounter Medical Devices Implanted Type Area Boring Machine Operator Vertical Device Identifier Shelf Expiration Date Model / Serial / Lot Port Pwr Mri Isp Profile - [id number] Implanted:Qty: 1 on 07/24/2020 by Akash Castillo MD at OR [facility] Right: Chest CR BARD : PERIPHERAL VASCULAR 04/12/2021 [id number] / / [id number] documented as of this encounter Advance Directives [...] Adult Child Health Care Agent Care Teams Printer Slotter Feeder Relationship Specialty Start Date End Date Dhruv Moss MD [address] [place] [address] PCP - General Family Medicine 08/27/21 documented as of this encounter
--- OUTSIDE RECORDS SUMMARY | 2024-10-10 00:34 | External Medical Summary ---
Author Name Unknown Address Unknown Organization K01:[facility] [address] [place] [address] Laboratory Report Ordering Provider Test Date Status ANN MUNGUIA 07/31/2024 10:36:00 Final Observation Date Value Abnormality Reference (Units ) Status WBC, Total 07/31/2024 10:36:00 14.04 Above high normal 4.00-10.80 (K/uL) Final RBC 07/31/2024 10:36:00 2.00 3.85-5.15 (M/uL) Final Hemoglobin 07/31/2024 10:36:00 6.7 Below low normal 12.0-15.3 (g/dL) Final HCT 07/31/2024 10:36:00 20.4 Below low normal 36.0-45.2 (%) Final MCV 07/31/2024 10:36:00 102.0 81.5-97.5 (fL) Final MCH 07/31/2024 10:36:00 33.5 27.0-34.0 (pg) Final MCHC 07/31/2024 10:36:00 32.8 32.0-36.0 (g/dL) Final RDW 07/31/2024 10:36:00 21.4 11.5-15.5 (%) Final Platelets 07/31/2024 10:36:00 <3 Below lower panic limits 140-400 (K/uL) Final MPV 07/31/2024 10:36:00 Final No result - abnormal platele t distribution. Nucleated erythrocytes/100 l eukocytes [Ratio] in Blood by Automated count 07/31/2024 10:36:00 0 <=0 (/100 WBCs) Final Performing Location [facility] [address] [place] [address]
--- OUTSIDE RECORDS SUMMARY | 2024-10-10 00:35 | External Medical Summary | Summary of Care ---
Author Name Unknown Organization [facility] Address [address] [facility] [place] [address] Phone [phone] Care Team Providers Care Sterile Process Coordinator Name Role Phone Dhruv Moss MD Primary Care Provide r Encounter Details Date Type Department Care Team (Late st Contact Info) Description 07/24/2024 Orders Only PATIENT PORTAL DO NOT DELETE THIS DEPT USED BY [place] [facility] [id number] Allergies No known active allergiesdocumented as of this encounter (statuses as of 07/24/2024) Medications Medication Sig Dispensed Refills Start Date [...] less than 8.0% ([facility]) Inject 8 units with breakfast, [...] chew 90 Capsule 1 04/01/2024 Active Pen [place] 32G X 4 MM Use as directed. 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 Date of Transplant: 09/01/2021 Conditioning Regimen: Fludarabine / Busulfan 2 with post-transplant Cytoxan ABO/Rh: A Positive CMV status: CMV Positive--- GRID: [id number] / DID: [id number] Matched Unrelated 10/24--- DPB1 Match ABO/Rh: A [...] Thrombocytopenia 12/06/2022 Last Assessment & Plan: Platelets 30563 on 03/20 Questionable hematuria Urinary incontinence 09/12/2022 [...] failure. Does not have any evidence of nwgen-jrpewx-jibw disease Last Assessment & Plan: Continues to [...] -continue venlafaxine Coronary artery disease invo lving point hope ira coronary artery of point [place] ir[place] heart without angina pectoris 06/12/2017 Overview: S/P EDIL to LAD on 06/12/17 Last Assessment & Plan: No angina - Continue atorvastatin, isosorbide, metoprolol - no ASA due to thrombocytopenia Dyslipidemia, goal LDL below 70 11/25/2011 Last Assessment & Plan: Patient having no issues. She continues on Lipitor 40 mg daily Last lab I will was that I can find were from [phone] Assessment/plan: Dyslipidemia with patient currently taking Lipitor [...] as of this encounter (statuses as of 07/24/2024) Resolved Problems Problem Noted Date Diagnosed Date [...] as of this encounter (statuses as of 07/24/2024) Immunizations Name Administration Dates Next Due COVID-19 mRNA, LNP-s, No Pre serve, 2-Dose Series ([employer]) 02/05/2021,01/08/2021 COVID-19, LNP-s, No Preserve , [...] Upcoming Encounters Date Type Department Care Team (Ra guy Contact Info) Description 07/31/2024 7:10 AM EDT Laboratory Lab Mobile Phlebotomy [facility] [address] [facility] [place] [address] [facility], [facility] Home Draw [address] [facility] [place] [address] 08/07/2024 7:10 AM EDT Laboratory Lab Mobile Phlebotomy [facility] [address] [facility] [place] [address] [facility], [facility] Mobile Home Draw [address] [facility] [place] [address] 08/13/2024 8:30 AM EDT [facility], [facility] [address] [place] [address] Marisa Pacheco, TANYA [address] [facility] [place] [address] 08/27/2024 1:00 PM EDT Office Visit Pharmacy, [address] [place] [address] [place] [address] 08/28/2024 1:45 PM EDT Office Visit Ophthalmology, [facility] [address] [place] [address] Fernando Damon DO [address] [facility] [place] [address] 10/16/2024 1:45 PM EST Office Visit Hematology/Oncology [facility] [place] [facility] [place] [phone] Jitendra Aguero MD [address] [place] [address] 12/24/2024 2:30 PM EST Nurse Only Ancillary [address] [place] [address] Cristina, Nurse Annual Wellness [address] [place] [address] [place] [address] 01/13/2025 11:40 AM EST Office Visit [address] [place] [phone] Dhruv Moss MD [address] [place] [address] [place] [address] 07/21/2025 1:30 PM EDT Imaging Radiology [address] [place] [address] 08/04/2025 1:20 PM EDT Office Visit [address] [place] [address] Dhruv Moss MD [address] [place] [address] [place] [address] Health Maintenance Due Date Last Done Comments *BISPHONATE OR OTHER ACCEPTABLE MEDICATION NEEDED FOR OSTEOPOROSIS (REFER TO SMARTSET #1146) 11/06/2023 Colonoscopy 05/06/2024 05/06/2019, 05/06/2019 COVID-19 Vaccine ( season) 2024 12/06/2021, 02/05/2021, 01/08/2021 Influenza Vaccine (FLU shot) (#1) 2024 07/17/2020, 07/13/2020, 07/25/2019, Additional history exists Albumin/Creatinine Ratio 09/15/2024 023, 03/08/2022, 10/29/2019, Additional history exists HbA1c 11/22/2024 05/22/2024, 06/2024, 12/06/2022, Additional history exists Adult Wellness Visit 12/22/2024 12/22/2023, 12/12/19 23 Depression Monitoring 12/22/2024 12/22/2023 TSH 01/02/2025 01/02/2024, 11/14, 09/12/2022, Additional history exists DXA Scan 06/13/2025 06/13/2023, 11/2022, 03/16/2015 GFR 06/26/2025 06/26/2024, 02/12, 01/24/2024, Additional history exists Diabetic Foot Exam 07/02/2025 07/02/2024, 0 06/05/2023, 06/03/2022, Additional history exists Diabetic Eye Exam 07/17/2025 07/17/2024, , 07/17/2024, Additional history exists DTap/Tdap Vaccines (3 - Td or Tdap) 11/10/2026 11/10/2016, 03/30/2011 VITAMIN D LEVEL ONCE IN A LIFETIME-USE SMARTSET# 66017 Completed 05/11/2015 RETIRED - COLONOSCOPY-EVERY 5 YRS [...] this encounter Medical Devices Implanted Type Area Patient Services Assistant Device Identifier Shelf Expiration Date Model / Serial / Lot Port Pwr Mri Isp Profile - [id number] Implanted:Qty: 1 on 07/24/2020 by Akash Castillo MD at OR [facility] Right: Chest CR BARD : PERIPHERAL VASCULAR 04/12/2021 [id number] / / [id number] documented as of this encounter Advance Directives [...] on File Name Relationship Healthcare Agent [facility] Communication Juanita Silva Adult Child Health Care Agent Care Teams Sterile Process Coordinator Relationship Specialty Start Date End Date Dhruv Moss MD [address] [place] [address] [place] [id number] PCP - General Family Medicine 08/27/21 documented as of this encounter
--- OUTSIDE RECORDS SUMMARY | 2024-10-10 00:35 | External Medical Summary ---
Author Name Unknown Address Unknown Organization K01:[facility] [address] [facility] [place] [address] Laboratory Report Ordering Provider Test Date Status ANN MUNGUIA 07/24/2024 08:07:00 Final Observation Date Value Abnormality Reference (Units ) Status SYNC LEUKOCYTES IN BLOOD BY AUTOMATED COUNT 07/24/2024 08:07:00 11.36 Above high normal 4.00-10.80 (K/uL) Final Neutrophils/100 leukocytes in Blood by Manual count 07/24/2024 08:07:00 23.0 Below low normal 40.0-75.0 (%) Final Lymphocytes/100 leukocytes in Blood by Manual count 07/24/2024 08:07:00 64.0 Above high normal 18.0-42.0 (%) Final Monocytes/100 leukocytes in Blood by Manual count 07/24/2024 08:07:00 7.0 1.0-11.0 (%) Final Metamyelocytes/100 leukocytes in Blood by Manual count 07/24/2024 08:07:00 1.0 Above high normal <=0.0 (%) Final Myelocytes/100 leukocytes in Blood by Manual count 07/24/2024 08:07:00 5.0 Above high normal <=0.0 (%) Final Neutrophils [#/volume] in Blood by Manual count 07/24/2024 08:07:00 2.61 1.80-7.70 (K/uL) Final Lymphocytes [#/volume] in Blood by Manual count 07/24/2024 08:07:00 7.27 Above high normal 1.00-4.80 (K/uL) Final Monocytes [#/volume] in Blood by Manual count 07/24/2024 08:07:00 0.80 0.00-1.10 (K/uL) Final Metamyelocytes [#/volume] in Blood by Manual count 07/24/2024 08:07:00 0.11 Above high normal <=0.00 (K/uL) Final Myelocytes [#/volume] in Blood by Manual count 07/24/2024 08:07:00 0.57 Above high normal <=0.00 (K/uL) Final Variant lymphocytes [Presence] in Blood by Light microscopy 07/24/2024 08:07:00 Present Abnormal None Seen Final Smudge cells [Presence] in Blood by Light microscopy 07/24/2024 08:07:00 Present Abnormal None Seen Final Neutrophils.vacuolated [Presence] in Blood by Light microscopy 07/24/2024 08:07:00 Present Abnormal None Seen Final Performing Location [facility] [place] [address] [place] [facility] [address]
--- OUTSIDE RECORDS SUMMARY | 2024-10-10 00:35 | External Medical Summary | Summary of Care ---
Author Name Unknown Organization [facility] [address] [facility] [address] Phone [phone] Care Team Providers Care Grinding Machine Operator Portable Name Role Phone Dhruv Moss MD Primary Care Provide r Reason for Visit * Reason Onset Date Comments Test Results Lab 07/25/2024 Encounter Details Date Type Department Care Team (Late st Contact Info) Description 07/25/2024 Telephone Hematology/Oncology [facility] [address] [place] [address] Jitendra Aguero MD [address] [place] [address] Test Results Lab Allergies No known active allergiesdocumented as of this encounter (statuses as of 07/25/2024) Medications Medication Sig Dispensed Refills Start Date End Date Status Diclofenac Sodium 1 % External GelIndications:knee pain Apply topically to affected area . Apply to bilateral knees Active Prochlorperazine Maleate 10 MG Oral Tablet (Compazine)Indicatio ns:H/O allogeneic bone marrow transplant (HCC) Take by mouth 1 Tablet every 6 hours as needed for Nausea. 60 Tablet 3 12/09/2021 Active [employer] Flex System w/Device Kit Use as directed [...] chew 90 Capsule 1 04/01/2024 Active Pen [place] 32G X 4 MM Use as directed. 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 Date of Transplant: 09/01/2021 Conditioning Regimen: Fludarabine / Busulfan 2 with post-transplant Cytoxan ABO/Rh: A Positive CMV status: CMV Positive--- GRID: [id number] / DID: [id number] Matched Unrelated 10/24--- DPB1 Match ABO/Rh: A [...] Thrombocytopenia 12/06/2022 Last Assessment & Plan: Platelets 56992 on 03/20 Questionable hematuria Urinary incontinence 09/12/2022 [...] failure. Does not have any evidence of eygvh-akugfv-hpea disease Last Assessment & Plan: Continues to [...] -continue venlafaxine Coronary artery disease invo lving jackson coronary artery of jackson heart without angina pectoris 06/12/2017 Overview: S/P EDIL to LAD on 06/12/17 Last Assessment & Plan: No angina - Continue atorvastatin, isosorbide, metoprolol - no ASA due to thrombocytopenia Dyslipidemia, goal LDL below 70 11/25/2011 Last Assessment & Plan: Patient having no issues. She continues on Lipitor 40 mg daily Last lab I will was that I can find were from [id number] Assessment/plan: Dyslipidemia with patient currently taking Lipitor [...] as of this encounter (statuses as of 07/25/2024) Resolved Problems Problem Noted Date Diagnosed Date [...] as of this encounter (statuses as of 07/25/2024) Immunizations Name Administration Dates Next Due COVID-19 [...] No 12/22/2023 [address] the household have a [facility] source of income? (Household - for [...] Telephone Encounter - Makenzie Barth LPN - 07/25/2024 7:39 AM EDT Called and spoke with Elida, patient's daughter. Reviewed lab results; Hgb 7.1 Plt: 4 Daughter verbalized understanding and states will have patient be at the [facility] at the arranged time. Patient to receive 1 unit prbc, 1 unit platelets. Called [facility] blood bank. Spoke with Emiliano. Spoke with Dona at [facility]. Called [facility] central scheduling. Patient scheduled for today at 10:00am. Patient's daughter verbalized understanding of appt time. Faxed order to [facility]/ blood bank. * Telephone Encounter - Makenzie Barth LPN - 07/25/2024 7:25 AM EDT ----- Message from Jitendra Aguero MD sent at 07/25/2024 6:54 AM EDT ----- Blood workup done on 07/24/2024: - WBC 11,300, immature WBCs noted. - Hemoglobin level 7.1, hematocrit 18.9 - Platelet count 4000 [facility] documented in this encounter Plan of Treatment Upcoming Encounters Date Type Department Care Team (Late st Contact Info) Description 07/31/2024 7:10 AM EDT Laboratory Lab Mobile Phlebotomy [facility] [address] [place] [address] [facility], [facility] Mobile Home Draw [address] [place], [place] [address] 08/07/2024 7:10 AM EDT Laboratory Lab Mobile Phlebotomy [facility] [address] [facility] [place] [address] [facility], Gml Mobile Home Draw [address] [facility] [place] [address] 08/13/2024 8:30 AM EDT [facility] Visit [facility], [facility] [address] [place] [address] Marisa Pacheco, TANYA [address] [place] [address] 08/27/2024 1:00 PM EDT Office Visit Pharmacy, [address] [place] [address] [place] [address] 08/28/2024 1:45 PM EDT Office Visit Ophthalmology, [facility] [address] [place] [address] Fernando Damon, [address] [place] [address] 10/16/2024 1:45 PM EST Office Visit Hematology/Oncology [facility] [address] [facility] [place] [phone] Jitendra Aguero MD [address] [facility] [place] [address] 12/24/2024 2:30 PM EST Nurse Only Ancillary [address] [place] [address] [place], Nurse [address] [place] [address] 01/13/2025 11:40 AM EST Office Visit Family [place] [place] [address] Dhruv Moss MD [address] [place] [address] [place] [address] 07/21/2025 1:30 PM EDT Imaging Radiology [address] [place] [address] 08/04/2025 1:20 PM EDT Office Visit Family Medicine [address] [place] [address] Dhruv Moss MD [address] [place] [address] [place] [address] Health Maintenance Due Date Last Done Comments *BISPHONATE OR OTHER ACCEPTABLE MEDICATION NEEDED FOR OSTEOPOROSIS (REFER TO SMARTSET #1146) 11/06/2023 Colonoscopy 05/06/2024 05/06/2019, 05/06/2019 CKD PHOS USE SMARTSET 02909 06/07/202405/14, 05/31/2023, 05/08/2023, Additional history exists COVID-19 [...] Additional history exists CKD HGB USE SMARTSET 22594 07/24/202507/24, 07/24/2024, 07/17/2024, Additional history exists DTap/Tdap Vaccines (3 - Td or Tdap) 11/10/2026 11/10/2016, 03/30/2011 VITAMIN D LEVEL ONCE IN A LIFETIME-USE SMARTSET# 47468 Completed 05/11/2015 RETIRED - COLONOSCOPY-EVERY 5 YRS [...] this encounter Medical Devices Implanted Type Area [employer]asswind Instrument Repairer Device Identifier Shelf Expiration Date Model / Serial / Lot Port Pwr Mri Isp Profile - [id number] Implanted:Qty: 1 on 07/24/2020 by Akash Castillo MD at OR [facility] Right: Chest CR BARD : PERIPHERAL VASCULAR 04/12/2021 [id number] / / [id number] documented as of this encounter Advance Directives [...] Agents on File Name Relationship Healthcare Agent [facility] p Communication Juanita Silva Adult Child Health Care Agent Care Teams Grinding Machine Operator Portable Relationship Specialty Start Date End Date Dhruv Moss MD [address] [place] [phone] PCP - General Family Medicine 08/27/21 documented as of this encounter
--- OUTSIDE RECORDS SUMMARY | 2024-10-10 00:35 | External Medical Summary | Summary of Care ---
Author Name Unknown Organization [facility] Address [address] [facility] [place] [address] Phone [phone] Care Team Providers Care Repair Welder Name Role Phone Dhruv Moss MD Primary Care Provide r Reason for Visit * Reason Onset Date Comments Medication Refill 07/21/2024 Encounter Details Date Type Department Care Team (Late st Contact Info) Description 07/21/2024 Refill Cardiology [address] [place] [phone] Morris Anthony PA-C [address] [place] [address] Allergies No known active allergiesdocumented as of this encounter (statuses as of 07/23/2024) Medications Medication Sig Dispensed Refills Start Date End Date Status Diclofenac Sodium 1 % External GelIndications:knee pain Apply topically to affected area . Apply to bilateral knees Active Prochlorperazine Maleate 10 MG Oral Tablet (Compazine)Indicati ons:H/O allogeneic bone marrow transplant (HCC) Take by mouth 1 Tablet every 6 hours as needed for Nausea. 60 Tablet 3 12/09/2021 Active JackrabbitTouch Verio Flex System w/Device Kit Use as [...] chew 90 Capsule 1 04/01/2024 Active Pen [place] 32G X 4 MM Use as directed. Use to inject insulin up to 4 times daily. 400 Each 3 04/05/2024 Active Atorvastatin Calcium 40 MG Oral Tablet (Lipitor)Indication s:Dyslipidemia, goal LDL below 70 TAKE ONE TABLET BY MOUTH IN THE MORNING 90 Tablet 2 04/22/2024 Active OneTouch Verio In Vitro Strip (Glucose Blood)Indications:T ype 2 diabetes mellitus with hemoglobin A1c goal of less than 8.0% (HCC) Use to test blood sugar three times a day DXe11.9 300 Strip 3 04/22/2024 Active Acyclovir 800 MG Oral Tablet (Zovirax)Indication s:MDS (myelodysplastic syndrome), high grade (HCC) TAKE ONE TABLET BY MOUTH TWICE DAILY in the morning and before bedtime 60 Tablet 11 05/13/2024 Active Isosorbide Mononitrate ER 30 MG Oral Tablet Extended Release 24 Hour (Imdur)Indications: 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 up to 3 doses in 15 minutes 25 Tablet 2 07/23/2024 Active OneTouch Delica Lancets 30GIndications:Type 2 diabetes mellitus with hemoglobin A1c goal of less than 8.0% (HCC) Use to test blood sugar three times a day DXe11.9 300 Each 3 07/22/2024 Active Nitroglycerin 0.4 MG Sublingual Tablet Sublingual (Nitrostat) Place 1 Tablet under the tongue every 5 minutes as needed for Pain, Chest. 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 Date of Transplant: 09/01/2021 Conditioning Regimen: Fludarabine / Busulfan 2 with post-transplant Cytoxan ABO/Rh: A Positive CMV status: CMV Positive--- GRID: [id number] / DID: [id number] Matched Unrelated 10/24--- DPB1 Match ABO/Rh: A [...] Thrombocytopenia 12/06/2022 Last Assessment & Plan: Platelets 63325 on 03/20 Questionable hematuria Urinary incontinence 09/12/2022 [...] failure. Does not have any evidence of txlxi-grxryf-kmaz disease Last Assessment & Plan: Continues to [...] -continue venlafaxine Coronary artery disease invo lving cloverdale coronary artery of cloverdale heart without angina pectoris 06/12/2017 Overview: S/P EDIL to LAD on 06/12/17 Last Assessment & Plan: No angina - Continue atorvastatin, isosorbide, metoprolol - no ASA due to thrombocytopenia Dyslipidemia, goal LDL below 70 11/25/2011 Last Assessment & Plan: Patient having no issues. She continues on Lipitor 40 mg daily Last lab I will was that I can find were from [phone] Assessment/plan: Dyslipidemia with patient currently taking Lipitor [...] as of this encounter (statuses as of 07/23/2024) Resolved Problems Problem Noted Date Diagnosed Date [...] as of this encounter (statuses as of 07/23/2024) Immunizations Name Administration Dates Next Due COVID-19 mRNA, LNP-s, No Pre serve, 2-Dose Series (Wink) 02/05/2021,01/08/2021 COVID-19, LNP-s, No Preserve , Ye-sucrose, [...] Telephone Encounter - Dhruv Moss MD - 07/23/2024 8:38 AM EDT Signed Prescriptions: Disp Refills Nitroglycerin 0.4 MG Sublingual Tablet Sub*25 Tab*2 Sig: Place 1 Tablet under the tongue every 5 minutes as needed for Pain, Chest. up to 3 doses in 15 minutes Authorizing Provider: DHRUV MOSS * Telephone Encounter - Maya Quinones, TANYA - 07/23/2024 8:32 AM EDTPending Prescriptions: Disp Refills Nitroglycerin 0.4 MG Sublingual Tablet Sub*10 Tab*2 Sig: Place 1 Tablet under the tongue every 5 minutes as needed for Pain, Chest. up to 3 doses in 15 minutes * Telephone Encounter - Sharon Huizar CMA - 07/22/2024 3:23 PM EDTPending Prescriptions: Disp Refills Nitroglycerin 0.4 MG Sublingual Tablet Sub*25 Tab*3 Sig: Place 1 Tablet under the tongue every 5 minutes as needed for Pain, Chest. up to 3 doses in 15 minutes * Telephone Encounter - Sharon Huizar CMA - 07/22/2024 3:23 PM EDT Patient has not been seen by cardiology since 2020. Defer to PCP for refills/follow up. * Telephone Encounter - Linda Lunsford OSA - 07/21/2024 5:55 PM EDTPending Prescriptions: Disp Refills Nitroglycerin 0.4 MG Sublingual Tablet Sub*25 Tab*3 Sig: Place 1 Tablet under the tongue every 5 minutes as needed for Pain, Chest. up to 3 doses in 15 minutes----- documented in this encounter Plan of Treatment Upcoming Encounters Date Type Department Care Team (Late st Contact Info) Description 07/24/2024 7:10 AM EDT Laboratory Lab Mobile Phlebotomy [facility] [address] [facility] [place], [place] [address] [facility], [facility] Mobile Home Draw [phone] [facility] [place], [place] [address] 07/31/2024 7:10 AM EDT Laboratory Lab Mobile Phlebotomy [facility] [address] [facility] [place], [place] [address] [facility], [facility] Mobile Home Draw [address] [facility] [place], [place] [address] 08/07/2024 7:10 AM EDT Laboratory Lab Mobile Phlebotomy [facility] [address] [facility] [place], [place] [address] [facility], [facility]ml Mobile Home Draw [address] [facility] [place], [place] [address] 08/13/2024 8:30 AM EDT Home Visit [facility] [place], [facility] [address] [facility] [place] [address] Marisa Pacheco, TANYA [address] [place] [address] 08/27/2024 1:00 PM EDT Office Visit Pharmacy, [address] [place] [address] [place] [address] 08/28/2024 1:45 PM EDT Office Visit Ophthalmology, [facility] [address] [place] [address] Fernando Damon DO [address] [place] [address] 10/16/2024 1:45 PM EST Office Visit Hematology/Oncology [facility] [address] [facility] [place] [phone] Jitendra Aguero MD [address] [place] [address] 12/24/2024 2:30 PM EST Nurse Only Ancillary [address] [place] [address] [place], Nurse [address] [place] [address] 01/13/2025 11:40 AM EST Office Visit Family Medicine [address] [place] [phone] Dhruv Moss MD [address] [place] [address] [place] [address] 07/21/2025 1:30 PM EDT Imaging Radiology [address] [place] [address] 08/04/2025 1:20 PM EDT Office Visit Family Medicine [address] [place] [phone] Dhruv Moss MD [address] [place] [address] [place] [address] Health Maintenance Due Date Last Done Comments [...] D LEVEL ONCE IN A LIFETIME-USE SMARTSET# 82188 Completed 05/11/2015 RETIRED - COLONOSCOPY-EVERY 5 YRS [...] this encounter Medical Devices Implanted Type Area Wireline Operator Device Identifier Shelf Expiration Date Model / Serial / Lot Port Pwr Mri Isp Profile - [id number] Implanted:Qty: 1 on 07/24/2020 by Akash Castillo MD at OR [facility] Right: Chest CR BARD : PERIPHERAL VASCULAR 04/12/2021 [id number] / / [id number] documented as of this encounter Advance Directives [...] Adult Child Health Care Agent Care Teams Repair Welder Relationship Specialty Start Date End Date Dhruv Moss MD [address] [place] [address] [place] [id number] PCP - General Family Medicine 08/27/21 documented as of this encounter
--- OUTSIDE RECORDS SUMMARY | 2024-10-10 00:35 | External Medical Summary ---
Author Name Unknown Address Unknown Organization K01:[facility] [address] [facility] [place] [address] Laboratory Report Ordering Provider Test Date Status ANN MUNGUIA 07/31/2024 10:36:00 Final Observation Date Value Abnormality Reference (Units ) Status SYNC LEUKOCYTES IN BLOOD BY AUTOMATED COUNT 07/31/2024 10:36:00 14.04 Above high normal 4.00-10.80 (K/uL) Final Neutrophils/100 leukocytes in Blood by Manual count 07/31/2024 10:36:00 35.0 Below low normal 40.0-75.0 (%) Final Lymphocytes/100 leukocytes in Blood by Manual count 07/31/2024 10:36:00 52.0 Above high normal 18.0-42.0 (%) Final Eosinophils/100 leukocytes in Blood by Manual count 07/31/2024 10:36:00 2.0 0.0-6.0 (%) Final Metamyelocytes/100 leukocytes in Blood by Manual count 07/31/2024 10:36:00 2.0 Above high normal <=0.0 (%) Final Blasts/100 leukocytes in Blood by Manual count 07/31/2024 10:36:00 9.0 Above high normal <=0.0 (%) Final Neutrophils [#/volume] in Blood by Manual count 07/31/2024 10:36:00 4.91 1.80-7.70 (K/uL) Final Lymphocytes [#/volume] in Blood by Manual count 07/31/2024 10:36:00 7.30 Above high normal 1.00-4.80 (K/uL) Final Eosinophils [#/volume] in Blood by Manual count 07/31/2024 10:36:00 0.28 0.00-0.70 (K/uL) Final Metamyelocytes [#/volume] in Blood by Manual count 07/31/2024 10:36:00 0.28 Above high normal <=0.00 (K/uL) Final Blasts [#/volume] in Blood by Manual count 07/31/2024 10:36:00 1.26 Above high normal <=0.00 (K/uL) Final Performing Location LABORATORY [facility] - [address] [facility] [address]
--- OUTSIDE RECORDS SUMMARY | 2024-10-10 00:35 | External Medical Summary | Summary of Care ---
Author Name Unknown Organization [facility] Address [address] [place] [address] Phone [phone] Care Team Providers Care Ghost Writer Name Role Phone Dhruv Moss MD Primary Care Provide r Reason for Visit * Reason Onset Date Comments Advice 07/24/2024 Chest pain - pat el Encounter Details Date Type Department Care Team (Late st Contact Info) Description 07/24/2024 Telephone Access Center, [place] [address] [facility] *DO NOT REMOVE THIS DEPARTMENT* [place] [phone] Services, Scheduling [address] [place] [address] Advice (Chest pain - finley ) Allergies No known active allergiesdocumented as of this encounter (statuses as of 07/29/2024) Medications Medication Sig Dispensed Refills Start Date [...] chew 90 Capsule 1 04/01/2024 Active Pen Tok 32G X 4 MM Use as directed. [...] 24 Hour (Imdur)Indications:C oronary artery disease involving hoh coronary artery of hoh heart without angina pectoris,HTN, goal below 140/90 [...] Oral TabletIndications:MD Santos (myelodysplastic syndrome), high grade (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) 1.5 mg PERINEURAL PRN 07/17/2024 07/17/2025 Active documented as of this encounter (statuses as of 07/29/2024) Active Problems Patient Care Coordination No te Formatting of this note migh t be different from the original. Date of Transplant: 09/01/2021 Conditioning Regimen: Fludarabine / Busulfan 2 with post-transplant Cytoxan ABO/Rh: A Positive CMV status: CMV Positive--- GRID: [id number] / DID: [id number] Matched Unrelated 10/24--- DPB1 Match ABO/Rh: A [...] Thrombocytopenia 12/06/2022 Last Assessment & Plan: Platelets 30242 on 03/20 Questionable hematuria Urinary incontinence 09/12/2022 [...] failure. Does not have any evidence of krbgz-okfnmg-opsw disease Last Assessment & Plan: Continues to [...] -continue venlafaxine Coronary artery disease invo lving hoh coronary artery of hoh heart without angina pectoris 06/12/2017 Overview: S/P EDIL to LAD on 06/12/17 Last Assessment & Plan: No angina - Continue atorvastatin, isosorbide, metoprolol - no ASA due to thrombocytopenia Dyslipidemia, goal LDL below 70 11/25/2011 Last Assessment & Plan: Patient having no issues. She continues on Lipitor 40 mg daily Last lab I will was that I can find were from [phone] Assessment/plan: Dyslipidemia with patient currently taking Lipitor [...] as of this encounter (statuses as of 07/29/2024) Resolved Problems Problem Noted Date Diagnosed Date [...] as of this encounter (statuses as of 07/29/2024) Immunizations Name Administration Dates Next Due COVID-19 mRNA, LNP-s, No Pre serve, 2-Dose Series (Actimize) 02/05/2021,01/08/2021 COVID-19, LNP-s, No Preserve , Ye-sucrose, [...] Telephone Encounter - Winsome Chang RN - 07/24/2024 1:01 PM EDT Reviewed with Dr Finley- will change blood parameter to transfusion if hgb <8 or just above 8 andsymptomatic. * Telephone Encounter - Winsome Chang RN - 07/24/2024 11:35 AM EDT Called and spoke to Shante. She has noticed that patient has been more SOB/ dizzy, especially when shegets into a hgb in the low to mid 7's. Reviewed previous transfusion record- patient felt symptomatic in the past when she was below/ justabove hgb 8. Advised Shante that we would review with Dr Finley to see if we could change parameter to keep patient feeling better. She verbalized understanding and appreciation. * Telephone Encounter - Kirsten Wild OSA - 07/24/2024 11:27 AM EDT Pateint daughter calling asking to speak to nurse, pt has been experiencing more frequent shortnessof breath and had to take her nitroglycerine on monday due to chest pains. Wanted to see if she canget a unit of blood today if her labs are less than 8 documented in this encounter Plan of Treatment Upcoming Encounters Date Type Department Care Team (Late st Contact Info) Description 07/31/2024 7:10 AM EDT Laboratory Lab Mobile Phlebotomy [facility] [address] [place] [address] [facility], Gml Mobile Home Draw [address] [place] [address] 08/07/2024 7:10 AM EDT Laboratory Lab Mobile Phlebotomy [facility] [address] [facility] [place] [address] [facility], Gml Mobile Home Draw [address] [facility] [place] [address] 08/13/2024 8:30 AM EDT Home Visit [facility] [place], [facility] [address] [place] [address] Marisa Pacheco, TANYA [address] [place] [address] 08/27/2024 1:00 PM EDT Office Visit Pharmacy, [address] [place] [address] [place] [address] 08/28/2024 1:45 PM EDT Office Visit Ophthalmology, [facility] [address] [place] [address] Fernando Damon DO [address] [place] [address] 10/16/2024 1:45 PM EST Office Visit Hematology/Oncology [facility] [address] [place] [phone] Jitendra Finley MD [address] [place] [address] 12/24/2024 2:30 PM EST Nurse Only Ancillary [address] [place] [address] [place], Nurse [address] [place] [address] 01/13/2025 11:40 AM EST [address] [phone] Dhruv Moss MD [address] [place] [address] [place] [address] 07/21/2025 1:30 PM EDT Imaging Radiology [address] [place] [address] 08/04/2025 1:20 PM EDT Office Visit [address] [place] [address] Dhruv Moss MD [address] [place] [address] [place] [address] Health Maintenance Due Date Last Done Comments *BISPHONATE OR OTHER ACCEPTABLE MEDICATION NEEDED FOR OSTEOPOROSIS (REFER TO SMARTSET #1146) 11/06/2023 Colonoscopy 05/06/2024 05/06/2019, 05/06/2019 CKD PHOS USE SMARTSET 30663 06/07/202405/14, 05/31/2023, 05/08/2023, Additional history exists COVID-19 [...] Additional history exists CKD HGB USE SMARTSET 41263 07/24/202507/24, 07/24/2024, 07/17/2024, Additional history exists DTap/Tdap Vaccines (3 - Td or Tdap) 11/10/2026 11/10/2016, 03/30/2011 VITAMIN D LEVEL ONCE IN A LIFETIME-USE SMARTSET# 22929 Completed 05/11/2015 RETIRED - COLONOSCOPY-EVERY 5 YRS [...] this encounter Medical Devices Implanted Type Area Thread Machine Operator Device Identifier Shelf Expiration Date Model / Serial / Lot Port Pwr Mri Isp Profile - [id number] Implanted:Qty: 1 on 07/24/2020 by Akash Castillo MD at OR [facility] Right: Chest CR BARD : PERIPHERAL VASCULAR 04/12/2021 [id number] / / [id number] documented as of this encounter Advance Directives [...] File Name Relationship Healthcare Agent [facility] Communication Juanita Silva Adult Child Health Care Agent Care Teams Ghost Writer Relationship Specialty Start Date End Date Dhruv Moss MD [address] [place] [id number] PCP - General Family Medicine 08/27/21 documented as of this encounter
--- OUTSIDE RECORDS SUMMARY | 2024-10-10 00:35 | External Medical Summary ---
Author Name Unknown Address Unknown Organization K01:LABORATORY [facility] - [facility] [address] [place] [address] Laboratory Report Ordering Provider Test Date Status ANN MUNGUIA 07/24/2024 08:07:00 Final Observation Date Value Abnormality Reference (Units ) Status WBC, Total 07/24/2024 08:07:00 11.36 Above high normal 4.00-10.80 (K/uL) Final RBC 07/24/2024 08:07:00 1.71 3.85-5.15 (M/uL) Final Hemoglobin 07/24/2024 08:07:00 7.1 Below low normal 12.0-15.3 (g/dL) Final HCT 07/24/2024 08:07:00 18.9 Below low normal 36.0-45.2 (%) Final MCV 07/24/2024 08:07:00 110.5 81.5-97.5 (fL) Final MCH 07/24/2024 08:07:00 41.5 27.0-34.0 (pg) Final MCHC 07/24/2024 08:07:00 37.6 32.0-36.0 (g/dL) Final RDW 07/24/2024 08:07:00 22.5 11.5-15.5 (%) Final Platelets 07/24/2024 08:07:00 4 Below lower panic limits 140-400 (K/uL) Final MPV 07/24/2024 08:07:00 10.8 6.6-11.1 (fL) Final Nucleated erythrocytes/100 leukocytes [Ratio] in Blood by Automated count 07/24/2024 08:07:00 0 <=0 (/100 WBCs) Final Performing Location LABORATORY [facility] - [address] [place] [address]
--- OUTSIDE RECORDS SUMMARY | 2024-10-10 00:36 | External Medical Summary | Summary of Care ---
Author Name Unknown Organization [facility] Address [address] [place] [address] Phone [phone] Care Team Providers Care Copyright Manager Name Role Phone Dhruv Moss MD Primary Care Provide r Reason for Visit * Reason Onset Date Comments Appointment 07/19/2024 Encounter Details Date Type Department Care Team (Late st Contact Info) Description 07/19/2024 Telephone [facility], [facility] [address] [facility] [place] [address] Services, Scheduling [address] [place] [address] Appointment (///) Allergies No known active allergiesdocumented as of this encounter (statuses as of 07/19/2024) Medications Medication Sig Dispensed Refills Start Date End Date Status Ondansetron HCl 8 MG Oral TabletIndications:MD Santos [...] for Nausea. 60 Tablet 3 12/09/2021 Active QuickPlay MediaTouch Delica Lancets 30GIndications:Type 2 diabetes mellitus with hemoglobin A1c goal of less than 8.0% ([facility]) Use to test blood sugar three times a day DXe11.9 300 Each 3 12/16/2021 Active QuickPlay [employer] Verio Flex System w/Device Kit Use as directed . 12/16/2021 Active Acetaminophen 500 MG Oral Tablet Take 1 Tablet by mouth every 6 hours as needed. Active Metoprolol Succinate ER 50 MG Oral Tablet Extended Release 24 Hour (toPROL XL)Indications:HTN, goal below 140/90 Take 1 Tablet by mouth in the morning. 90 Tablet 3 05/01/2023 Active Premarin 0.625 MG/GM Vaginal Cream (Estrogens Conjugated) Administer 1 g into the vagina at bedtime. As directed. 42.5 g 5 05/10/2023 Active NovoLIN R 100 UNIT/ML Injection Solution [...] 50 mL 5 07/25/2023 Active Levothyroxine Sodium 88 MCG Oral Tablet [...] rent major depressive disorder, in partial remission ([facility]) TAKE ONE CAPSULE BY MOUTH EVERY DAY do not cut, crush, or chew 90 Capsule 1 04/01/2024 Active Insulin Glargine Solostar 100 UNIT/ML Subcutaneous Solution Pen-injector (Lantus SoloStar) Inject 20 Units under the skin in the morning. 30 mL 3 04/05/2024 Active Pen Sullivan 32G X 4 MM Use as directed. [...] 24 Hour (Imdur)Indications:C oronary artery disease involving [place] coronary artery of [place] heart without angina pectoris,HTN, goal below 140/90 TAKE ONE TABLET BY MOUTH IN THE MORNING 90 Tablet 1 06/15/2024 Active Oxymetazoline HCl 0.05 % Nasal SolutionIndications: Bleeding from the nose Administer 2 Sprays into each nostril 2 times a day as needed for Congestion (for congestion). Do not use for more than three days. 6 mL 07/02/2024 Active Omeprazole 20 MG Oral Capsule Delayed Release (PriLOSEC)Indication s:MDS (myelodysplastic syndrome), high grade (HCC) Take 1 Capsule by mouth in the morning and 1 Capsule before bedtime. 180 Capsule 2 07/16/2024 Active AMBULATORY MISCELLANEOUS MEDICATION Instill 1 Dose into the left eye as needed for Dry eyes. Pt. Unable to recall name of eye ointment Active Hospital, Clinic, or Other Facility Administered [...] whether usp insulin use (HCC) 1.5 mg PERINEURAL PRN 07/17/2024 07/17/2025 Active documented as of this encounter (statuses as of 07/19/2024) Active Problems Patient Care Coordination No te Formatting of this note migh t be different from the original. Date of Transplant: 09/01/2021 Conditioning Regimen: Fludarabine / Busulfan 2 with post-transplant Cytoxan ABO/Rh: A Positive CMV status: CMV Positive--- GRID: [id number] / DID: [id number] Matched Unrelated 10/24--- DPB1 Match ABO/Rh: A [...] Thrombocytopenia 12/06/2022 Last Assessment & Plan: Platelets [address]0912 on 03/20 Questionable hematuria Urinary incontinence 09/12/2022 [...] failure. Does not have any evidence of lunad-wlopzd-txoz disease Last Assessment & Plan: Continues to [...] -continue venlafaxine Coronary artery disease invo lving [place] coronary artery of [place] heart without angina pectoris 06/12/2017 Overview: S/P EDIL to LAD on 06/12/17 Last Assessment & Plan: No angina - Continue atorvastatin, isosorbide, metoprolol - no ASA due to thrombocytopenia Dyslipidemia, goal LDL below 70 11/25/2011 Last Assessment & Plan: Patient having no issues. She continues on Lipitor 40 mg daily Last lab I will was that I can find were from [phone] Assessment/plan: Dyslipidemia with patient currently taking Lipitor [...] as of this encounter (statuses as of 07/19/2024) Resolved Problems Problem Noted Date Diagnosed Date Resolved Date Controlled substance agreement signed 03/04/2024 03/04/2024 Candidiasis, esophageal 03/10/202205/14 Last Assessment & Plan: [...] as of this encounter (statuses as of 07/19/2024) Immunizations Name Administration Dates Next Due COVID-19 [...] encounter Miscellaneous Notes * Telephone Encounter - Mery Jerome OSA - 07/19/2024 3:29 PM EDT Per Request via TT Sharon Tolentino to add pt at 9:00am pt is aware of apt on 07/22 at 9:00am don'tneed to call documented in this encounter Plan of Treatment Upcoming Encounters Date Type Department Care Team (Late st Contact Info) Description 07/22/2024 11:30 AM EDT Telemedicine Pharmacy, [address] [place] [address] [place] [address] 07/24/2024 7:10 AM EDT Laboratory Lab [facility] [address] [employer] [place], [place] [address] [facility] [address] [place], [place] [address] 07/31/2024 7:10 AM EDT Laboratory Lab [facility] [address] [employer] [facility] [place] [address] [facility] [address] [employer] [place] [address] 08/07/2024 7:10 AM EDT Laboratory Lab [facility] [address] [place], [place] [address] [facility] [address] [employer] [facility] [place] [address] 08/13/2024 8:30 AM EDT Home Visit ising at [place], [facility] [address] [place] [address] Marisa Pacheco RN [address] [place] [address] 08/27/2024 1:00 PM EDT Office Visit Pharmacy, [address] [place] [address] [place] [address] 08/28/2024 1:45 PM EDT Office Visit Ophthalmology, [facility] [address] [place] [address] Fernando Damon, [address] [place] [address] 10/16/2024 1:45 PM EST Office Visit Hematology/Oncology [facility] [place] [address] [place] [id number] Jitendra Aguero MD [address] [place] [address] 12/24/2024 2:30 PM EST Nurse Only Ancillary [address] [place] [address] [place], Nurse Annual [address] [place] [address] 01/13/2025 11:40 AM EST Office Visit Family Medicine [address] [place] [phone] Dhruv Moss MD [address] [place] [address] [place] [address] 07/21/2025 1:30 PM EDT Imaging Radiology [address] [place] [address] 08/04/2025 1:20 PM EDT Office Visit [address] [place] [phone] Dhruv Moss MD [address] [place] [address] [place] [address] Health Maintenance Due Date Last Done Comments *BISPHONATE OR OTHER ACCEPTABLE MEDICATION NEEDED FOR OSTEOPOROSIS (REFER TO SMARTSET #1146) 11/06/2023 Colonoscopy 05/06/2024 05/06/2019, 05/06/2019 COVID-19 Vaccine ( season) 2024 12/06/2021, 02/05/2021, 01/08/2021 Influenza Vaccine (FLU shot) (#1) 2024 07/17/2020, 07/13/2020, 07/25/2019, Additional history exists Albumin/Creatinine Ratio 09/15/20242 023, 03/08/2022, 10/29/2019, Additional history exists HbA1c 11/22/2024 05/22/2024, 0 06/2024, 12/06/2022, Additional history exists Adult Wellness Visit 12/22/2024 12/22/2023, 12/12/19 23 Depression Monitoring 12/22/2024 12/22/2023 TSH 01/02/2025 01/02/2024, 11/14, 09/12/2022, Additional history exists DXA Scan 06/13/2025 06/13/2023, 0811/2022, 03/16/2015 GFR 06/26/2025 06/26/2024, 02/12, 01/24/2024, Additional history exists Diabetic Foot Exam 07/02/2025 07/02/2024, 0 06/05/2023, 06/03/2022, Additional history exists Diabetic Eye Exam 07/17/2025 07/17/2024, , 07/17/2024, Additional history exists DTap/Tdap Vaccines (3 - Td or Tdap) 11/10/2026 11/10/2016, 03/30/2011 VITAMIN D LEVEL ONCE IN A LIFETIME-USE SMARTSET# 70737 Completed 05/11/2015 RETIRED - COLONOSCOPY-EVERY 5 YRS [...] this encounter Medical Devices Implanted Type Area Assembly Line Leader Device Identifier Shelf Expiration Date Model / Serial / Lot Port Pwr Mri Isp Profile - [id number] Implanted:Qty: 1 on 07/24/2020 by Akash Castillo MD at OR [facility] Right: Chest CR BARD : PERIPHERAL VASCULAR 04/12/2021 [id number] / / [id number] documented as of this encounter Advance Directives [...] File Name Relationship Healthcare Agent [facility] p Communication Juanita Silva Adult Child Health Care Agent Care Teams Copyright Manager Relationship Specialty Start Date End Date Dhruv Moss MD [address] [place], [place] [address] [address] PCP - General Family Medicine 08/27/21 documented as of this encounter
--- OUTSIDE RECORDS SUMMARY | 2024-10-10 00:36 | External Medical Summary | Summary of Care ---
Author Name Unknown Organization [facility] Address [address] [place] [address] Phone [phone] Care Team Providers Care Consulting Practice Manager Name Role Phone Dhruv Moss MD Primary Care Provide r Encounter Details Date Type Department Care Team (Late st Contact Info) Description 07/22/2024 Medication Management [facility] [address], [place] [phone] Makenzie Pool, [facility] [address] [place], [place] [phone] Referred for management of medication therapy* Allergies No known active allergiesdocumented as of this encounter (statuses as of 07/22/2024) Medications Medication Sig Dispensed Refills Start Date End Date Status Nitroglycerin 0.4 MG Sublingual Tablet Sublingual (Nitrostat) Place 1 Tablet under the tongue every 5 minutes as needed for Pain, Chest. up to 3 doses in 15 minutes 25 Tablet 3 Active Additional Information Patient taking differently:0.4 mg [...] Nausea. 60 Tablet 3 2 Active OneTouch Verio Flex System w/Device Kit Use as directed . 2 Active Acetaminophen 500 MG Oral Tablet [...] 50 units 50 mL 5 3 Active Magnesium 100 MG Oral Capsule Take 1 Capsule by mouth in the morning. Active Venlafaxine HCl ER 150 MG Oral Capsule Extended Release 24 Hour (Effexor XR)Indications:Rec urrent major depressive disorder, in partial remission (HCC) TAKE ONE CAPSULE BY MOUTH EVERY DAY do not cut, crush, or chew 90 Capsule 1 4 Active Pen Froid 32G X 4 MM Use as directed. Use to inject insulin up to 4 times daily. 400 Each 3 4 Active Atorvastatin Calcium 40 MG Oral Tablet (Lipitor)Indicatio ns:Dyslipidemia, goal LDL below 70 TAKE ONE TABLET BY MOUTH IN THE MORNING 90 Tablet 2 4 Active OneTouch Verio In Vitro Strip (Glucose Blood)Indications: Type 2 diabetes mellitus with hemoglobin A1c goal of less than 8.0% ([facility]) Use to test blood sugar three times a day DXe11.9 300 Strip 3 4 Active Acyclovir 800 MG Oral Tablet (Zovirax)Indicatio ns:MDS (myelodysplastic syndrome), high grade (HCC) TAKE ONE TABLET BY MOUTH TWICE DAILY in the morning and before bedtime 60 Tablet 11 4 Active Isosorbide Mononitrate ER 30 MG Oral Tablet Extended Release 24 Hour (Imdur)Indications :Coronary artery disease involving qagan tayagungin coronary artery of qagan tayagungin heart without angina pectoris,HTN, goal below 140/90 TAKE ONE TABLET BY MOUTH IN THE MORNING 90 Tablet 1 4 Active Omeprazole 20 MG Oral Capsule Delayed Release (PriLOSEC)Indicati ons:MDS (myelodysplastic syndrome), high grade (HCC) Take 1 Capsule by mouth in the morning and 1 Capsule before bedtime. 180 Capsule 2 4 Active Metoprolol Succinate ER 50 MG Oral Tablet Extended Release 24 Hour (toPROL XL)Indications:HTN , goal below 140/90 TAKE ONE TABLET BY MOUTH IN THE MORNING 90 Tablet 1 4 Active metFORMIN HCl 1000 MG Oral Tablet (Glucophage)Indica tions:Type 2 diabetes mellitus with hemoglobin A1c goal of less than 8.0% (HCC) TAKE 1 TABLET BY MOUTH TWICE DAILY WITH MORNING AND EVENING MEALS 180 Tablet 1 4 Active Levothyroxine Sodium 88 MCG Oral Tablet (Levoxyl)Indicatio ns:Postoperative hypothyroidism TAKE ONE TABLET BY MOUTH FIRST THING IN THE MORNING AT LEAST 30 MINUTES BEFORE BREAKFAST OR OTHER MEDICATIONS 90 Tablet 1 4 Active OneTouch Delica Lancets 30GIndications:Typ e 2 diabetes mellitus with hemoglobin A1c goal of less than 8.0% (HCC) Use to test blood sugar three times a day DXe11.9 300 Each 4 Active Insulin Glargine Solostar 100 UNIT/ML Subcutaneous Solution Pen-injector (Lantus SoloStar) Inject 16 Units under the skin in the morning. 30 mL 3 4 Active Ondansetron HCl 8 MG Oral TabletIndications: MDS (myelodysplastic syndrome), high grade (HCC) Take 1 Tablet by mouth every 8 hours as needed for Nausea. 60 Tablet 3 4 Active LubriFresh P.M. Ophthalmic Ointment Instill 1 Tube into the right eye once. Apply to inside of eyelid daily at night Active Premarin 0.625 MG/GM Vaginal Cream (Estrogens Conjugated) Administer 1 g into the vagina at bedtime. As directed. 42.5 g 5 3 024 Discontinued(Pa tient preference/disc ontinuation) Oxymetazoline HCl 0.05 % Nasal SolutionIndication s:Bleeding from the nose Administer 2 Sprays into each nostril 2 times a day as needed for Congestion (for congestion). Do not use for more than three days. 6 mL 4 09/09/2 024 Discontinued(Pa tient preference/disc ontinuation) AMBULATORY MISCELLANEOUS MEDICATION Instill 1 Dose into the left eye as needed for Dry eyes. Pt. Unable to recall name of eye ointment 024 Discontinued Hospital, Clinic, or Other Facility [...] as of this encounter (statuses as of 07/22/2024) Active Problems Patient Care Coordination No te Formatting of this note migh t be different from the original. Date of Transplant: 09/01/2021 Conditioning Regimen: Fludarabine / Busulfan 2 with post-transplant Cytoxan ABO/Rh: A Positive CMV status: CMV Positive--- GRID: [id number] / DID: [id number] Matched Unrelated 10/24--- DPB1 Match ABO/Rh: A [...] Thrombocytopenia 12/06/2022 Last Assessment & Plan: Platelets 35572 on 03/20 Questionable hematuria Urinary incontinence 09/12/2022 [...] failure. Does not have any evidence of xziae-gcbtlc-qzyc disease Last Assessment & Plan: Continues to [...] -continue venlafaxine Coronary artery disease invo lving qagan tayagungin coronary artery of qagan tayagungin heart without angina pectoris 06/12/2017 Overview: S/P EDLI to LAD on 06/12/17 Last Assessment & Plan: No angina - Continue atorvastatin, isosorbide, metoprolol - no ASA due to thrombocytopenia Dyslipidemia, goal LDL below 70 11/25/2011 Last Assessment & Plan: Patient having no issues. She continues on Lipitor 40 mg daily Last lab I will was that I can find were from [phone] Assessment/plan: Dyslipidemia with patient currently taking Lipitor [...] as of this encounter (statuses as of 07/22/2024) Resolved Problems Problem Noted Date Diagnosed Date [...] as of this encounter (statuses as of 07/22/2024) Immunizations Name Administration Dates Next Due COVID-19 [...] Progress Notes * Makenzie Pool, [facility] - 07/22/2024 3:42 PM EDT Ruth Burger is a 73 year old female. Objective: Review of patient's allergies indicates: No Known Allergies Current Outpatient Medications - WARNING: List may be incomplete due to filtering Medication Sig Dispense Refill Insulin Glargine Solostar 100 UNIT/ML Subcutaneous Solution Pen-injector (Lantus SoloStar) Inject 16 Units under the skin in the morning. 30 mL 3 Levothyroxine Sodium 88 MCG Oral Tablet (Levoxyl) TAKE ONE TABLET BY MOUTH FIRST THING IN THE MORNING AT LEAST 30 MINUTES BEFORE BREAKFAST OR OTHER MEDICATIONS 90 Tablet 1 LubriFresh P.M. Ophthalmic Ointment Instill 1 Tube into the right eye once. Apply to inside of eyelid daily at night metFORMIN HCl 1000 MG Oral Tablet (Glucophage) TAKE 1 TABLET BY MOUTH TWICE DAILY WITH MORNING AND EVENING MEALS 180 Tablet 1 Metoprolol Succinate ER 50 MG Oral Tablet Extended Release 24 Hour (toPROL XL) TAKE ONE TABLET BY MOUTH IN THE MORNING 90 Tablet 1 Ondansetron HCl 8 MG Oral Tablet Take 1 Tablet by mouth every 8 hours as needed for Nausea. 60 Tablet 3 Omeprazole 20 MG Oral Capsule Delayed Release (PriLOSEC) Take 1 Capsule by mouth in the morning and1 Capsule before bedtime. 180 Capsule 2 Isosorbide Mononitrate ER 30 MG Oral Tablet Extended Release 24 Hour (Imdur) TAKE ONE TABLET BY MOUTH IN THE MORNING 90 Tablet 1 Acyclovir 800 MG Oral Tablet (Zovirax) TAKE ONE TABLET BY MOUTH TWICE DAILY in the morning and before bedtime 60 Tablet 11 Venlafaxine HCl ER 150 MG Oral Capsule Extended Release 24 Hour (Effexor XR) TAKE ONE CAPSULE BY MOUTH EVERY DAY do not cut, crush, or chew 90 Capsule 1 Magnesium 100 MG Oral Capsule Take 1 Capsule by mouth in the morning. NovoLIN R 100 UNIT/ML Injection Solution (insulin REGULAR human) Inject 8 units with breakfast, 4 units with lunch, and 6 units with dinner + sliding scale of 1 units per every 20 over 140 MAX DAILY DOSE 50 units 50 mL 5 Acetaminophen 500 MG Oral Tablet Take 1 Tablet by mouth every 6 hours as needed. Prochlorperazine Maleate 10 MG Oral Tablet (Compazine) Take by mouth 1 Tablet every 6 hours as needed for Nausea. 60 Tablet 3 Diclofenac Sodium 1 % External Gel Apply topically to affected area . Apply to bilateral knees Nitroglycerin 0.4 MG Sublingual Tablet Sublingual (Nitrostat) Place 1 Tablet under the tongue every5 minutes as needed for Pain, Chest. up to 3 doses in 15 minutes (Patient taking differently: Place1 Tablet under the tongue every 5 minutes as needed for Pain, Chest. up to 3 doses in 15 minutes) 25 Tablet 3 Optimus3Touch Delica Lancets 30G Use to test blood sugar three times a day DXe11.9 300 Each 3 Atorvastatin Calcium 40 MG Oral Tablet (Lipitor) TAKE ONE TABLET BY MOUTH IN THE MORNING 90 Tablet 2 OneTouch Verio In Vitro Strip (Glucose Blood) Use to test blood sugar three times a day DXe11.9 300Strip 3 Pen Froid 32G X 4 MM Use as directed. Use to inject insulin up to 4 times daily. 400 Each 3 Hiphuntersio Flex System w/Device Kit Use as directed . Immunization History Administered Date(s) Administered COVID-19 mRNA, LNP-s, No Preserve, 2-Dose Series (Bigpoint) 01/08/2021, 02/05/2021 COVID-19, LNP-s, No Preserve, Ye-sucrose, [...] Preserve, IM 10/09/2015, 01/06/2017, 07/27/2017 Seasonal Influenza, Trivalent, (IIV3), PF, (Fluzone) 10/13/2009, 08/13/2010, 11/25/2011, 08/27/2013 Seasonal Influenza, Trivalent, (IIV3), with Preserv, (Fluzone) 08/13/2013, 09/03/2014 Seasonal Influenza, Trivalent, Adjuvanted, 65+ YRS, PF, (Fluad) 07/25/2019 TDAP (age 10 and older)(Boostrix) 11/10/2016 TDAP, Age 7 and older, IM (Adacel) 03/30/2011 Zoster Vaccine Recombinant (Shingrix) 07/23/2018, 07/13/2020, 07/17/2020, 10/30/2020 TMR Interventions Incomplete Encounter MTPs No medication therapy recommendations to display Complete Encounter MTPs No medication therapy recommendations to display Assessment & Plan Indication, effectiveness, safety and convenience of her medications were reviewed today. The patient's medical conditions were assessed, evaluated, and deemed meeting goals of drug therapy, with thefollowing exceptions. Additional Notes: N/a Summary Time Spent: 1-15 min Supervising pharmacist who provided the service: Makenzie Pool [facility] Takeaway Information Who was the recipient of the CMR service: beneficiary Language Template for the Patient Takeaway: [place] I attest that I have reviewed and updated the patient's conditions, allergies, and medications to the best of my ability. Makenzie Pool [facility] 07/22/2024, 3:42 PM documented in this encounter Miscellaneous Notes * MTM Personal Medication List - Makenzie Pool [facility] - 07/22/2024 3:34 PM EDT Medication How I take it Why I use it Prescriber Acetaminophen 500 MG Oral Tablet Take 1 tablet by mouth every 6 hours as needed Pain Self Acyclovir 800 MG Oral Tablet (Zovirax) Take 1 tablet by mouth twice daily in the morning and beforebedtime Virus prevention Dhruv Moss MD Diclofenac Sodium 1 % External Gel Apply to affected area on knees as needed Pain Self Insulin Glargine Solostar 100 UNIT/ML Subcutaneous Solution Pen-injector (Lantus SoloStar) Inject 16 units under the skin in the morning Diabetes Tremaine Morgan PA-C Isosorbide Mononitrate ER 30 MG Oral Tablet Extended Release 24 Hour (Imdur) Take 1 tablet by mouthin the morning Blood pressure Dhruv Moss MD Levothyroxine Sodium 88 MCG Oral Tablet (Levoxyl) Take 1 tablet by mouth first thing in the morningat least 30 minutes before breakfast or other medications Thyroid Dhruv Moss MD [facility] P.M. Ophthalmic Ointment Squeeze 1-2 drops into the right eye once daily at night Dry eye Self Magnesium 100 MG Oral Capsule Take 1 capsule by mouth in the morning Supplement Self metFORMIN HCl 1000 MG Oral Tablet (Glucophage) Take 1 tablet by mouth twice daily with morning andevening meals Diabetes Dhruv Moss MD Metoprolol Succinate ER 50 MG Oral Tablet Extended Release 24 Hour (toPROL XL) Take 1 tablet by mouth in the morning Blood pressure Dhruv Moss MD Nitroglycerin 0.4 MG Sublingual Tablet Sublingual (Nitrostat) Place 1 tablet under the tongue every5 minutes as needed for pain, chest. Up to 3 doses in 15 minutes Chest pain Morris Santos JOVI Anthony NovoLIN R 100 UNIT/ML Injection Solution (insulin REGULAR human) Inject 8 units with breakfast, 4 units with lunch, and 6 units with dinner + sliding scale of 1 units per every 20 over 140 max daily dose 50 units Diabetes Dhruv Moss MD Omeprazole 20 MG Oral Capsule Delayed Release (PriLOSEC) Take 1 capsule by mouth in the morning and1 capsule before bedtime Stomach Dhruv Moss MD Ondansetron HCl 8 MG Oral Tablet Take 1 tablet by mouth every 8 hours as needed for nausea Nausea Tremaine Morgan PA-C Prochlorperazine Maleate 10 MG Oral Tablet (Compazine) Take 1 tablet by mouth every 6 hours as needed for nausea Nausea Keon Pa MD Venlafaxine HCl ER 150 MG Oral Capsule Extended Release 24 Hour (Effexor XR) Take 1 capsule by mouth every day do not cut, crush, or chew Anxiety/depression Dhruv Moss MD * MTM To-Do-List - Makenzie Pool RPh - 07/22/2024 3:34 PM EDT Images from the original note were not included. What we talked about: What I should do: The importance of taking your medication as prescribed Your medicine works best when taken as prescribed. It can be hard to remember to take daily medications. Consider making it a part of your daily routine. Pair taking your medication with something you do every day, like brushing your teeth or eating a meal. Consider setting daily alarms to help remind yourself when it is time to take your medicine. Using a pill box can also help you organize your medicines. Pill boxes allow you to fill each day slot with your daily medicine and help you track when your next dose is due. documented in this encounter Plan of Treatment Upcoming Encounters Date Type Department Care Team (Late st Contact Info) Description 07/24/2024 7:10 AM EDT Laboratory Lab Mobile Phlebotomy [facility] [address] [place], [place] [address] [facility] Draw [address] [place], [place] [address] 07/31/2024 7:10 AM EDT Laboratory Lab Mobile Phlebotomy [facility] [address] [place] [address] [facility] Draw [address] [place], [place] [address] 08/07/2024 7:10 AM EDT Laboratory Lab Mobile Phlebotomy [facility] [address] [place], [place] [address] [facility] Mobile Home Draw [address] [place] [address] 08/13/2024 8:30 AM EDT Home Visit [facility] [place], [facility] [address] [place] [address] Marisa Pacheco RN [address] [place] [address] 08/27/2024 1:00 PM EDT Office Visit Pharmacy, [address] [place] [id number] [place] [address] 08/28/2024 1:45 PM EDT Office Visit Ophthalmology, [facility] [address] [place] [address] Fernando Damon, [address] [place] [address] 10/16/2024 1:45 PM EST [facility] [place] [address] [place] [phone] Jitendra Aguero MD [address] [facility] [place] [address] 12/24/2024 2:30 PM EST Nurse Only Ancillary [address] [place] [address] [place], Nurse Annual [address] [place] [address] 01/13/2025 11:40 AM EST Office Visit Family [address] [place] [phone] Dhruv Moss MD [address] [place] [address] [place] [address] 07/21/2025 1:30 PM EDT Imaging Radiology [address] [place] [address] 08/04/2025 1:20 PM EDT Office Visit [address] [place] [phone] Dhruv Moss MD [address] [place] [address] [place] [address] Health Maintenance Due Date Last Done Comments [...] D LEVEL ONCE IN A LIFETIME-USE SMARTSET# [id number] Completed 05/11/2015 RETIRED - COLONOSCOPY-EVERY 5 YRS [...] this encounter Medical Devices Implanted Type Area Tick Sewer Device Identifier Shelf Expiration Date Model / Serial / Lot Port Pwr Mri Isp Profile - [id number] Implanted:Qty: 1 on 07/24/2020 by Akash Castillo MD at [facility] Right: Chest CR BARD : PERIPHERAL VASCULAR 04/12/2021 [id number] / / [id number] documented as of this encounter Visit Diagnoses Diagnosis Referred for management of medication therapy- Primary Encounter for long-term (current) use of other medications Screening mammogram for breast cancer documented in [...] Relationship Healthcare Agent [facility] p Communication [facility] Adult Child Health Care Agent Care Teams Consulting Practice Manager Relationship Specialty Start Date End Date Dhruv Moss MD [address] [place] [id number] PCP - General Family Medicine 08/27/21 documented as of this encounter
--- OUTSIDE RECORDS SUMMARY | 2024-10-10 00:36 | External Medical Summary | Summary of Care ---
Author Name Unknown Organization [facility] [address] [facility] [address] Phone [phone] Care Team Providers Care Mail Deliverer Name Role Phone Dhruv Moss MD Primary Care Provide r Reason for Visit * Reason Comments eRx-Medication Refill Encounter Details Date Type Department Care Team (Late st Contact Info) Description 07/20/2024 Refill Family Medicine [address] [phone] Dhruv Moss MD [address] [place] [address] [place] [phone] HTN, goal below 140/90; Type 2 diabetes mellitus with hemoglobin A1c goal of less than 8.0% ([facility]); Postoperative hypothyroidism Allergies No known active allergiesdocumented [...] for Nausea. 60 Tablet 3 2 Active CybersourceTouch Verio Flex System w/Device Kit Use as directed . 2 Active Acetaminophen 500 MG Oral Tablet Take 1 Tablet by mouth every 6 hours as needed. Active Premarin 0.625 MG/GM Vaginal Cream (Estrogens Conjugated) Administer 1 g into the vagina at bedtime. As directed. 42.5 g 5 3 Active NovoLIN R 100 UNIT/ML Injection Solution (insulin REGULAR human)Indications:T ype 2 diabetes mellitus with hemoglobin A1c goal of less than 8.0% ([facility]) Inject 8 units with breakfast, [...] rrent major depressive disorder, in partial remission ([facility]) TAKE ONE CAPSULE BY MOUTH EVERY DAY do not cut, crush, or chew 90 Capsule 1 4 Active Pen Grand Cane 32G X 4 MM Use as directed. 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 Do not use for more than three days. 6 mL 4 Active Omeprazole 20 MG Oral Capsule Delayed Release (PriLOSEC)Indicatio ns:MDS (myelodysplastic syndrome), high grade (HCC) Take 1 Capsule by mouth in the morning and 1 Capsule before bedtime. 180 Capsule 2 4 Active AMBULATORY MISCELLANEOUS MEDICATION Instill 1 Dose into the left eye as needed for Dry eyes. Pt. Unable to recall name of eye ointment Active Metoprolol Succinate ER 50 MG Oral [...] OTHER MEDICATIONS 90 Tablet 1 4 Active Metoprolol Succinate ER 50 MG Oral Tablet Extended Release 24 Hour (toPROL XL)Indications:HTN, goal below 140/90 Take 1 Tablet by mouth in the morning. 90 Tablet 3 3 07/22/20 24 Discontinued Levothyroxine Sodium 88 MCG Oral Tablet (Levoxyl)Indication s:Postoperative hypothyroidism TAKE ONE TABLET BY MOUTH daily first thing in the morning at least 30 minutes prior to breakfast or other meds 90 Tablet 1 4 07/22/20 24 Discontinued metFORMIN HCl 1000 MG Oral Tablet (Glucophage)Indicat ions:Type 2 diabetes mellitus with hemoglobin A1c goal of less than 8.0% (HCC) TAKE 1 TABLET BY MOUTH TWICE DAILY WITH MORNING AND EVENING MEALS 180 Tablet 1 4 07/22/20 24 Discontinued Hospital, Clinic, or Other Facility [...] [id number] / DID: [id number] Matched Unrelated 10/24--- DPB1 Match ABO/Rh: A [...] Thrombocytopenia 12/06/2022 Last Assessment & Plan: Platelets 38839 on 03/20 Questionable hematuria Urinary incontinence 09/12/2022 [...] failure. Does not have any evidence of ulwti-tgkrdr-mclg disease Last Assessment & Plan: Continues to [...] -continue venlafaxine Coronary artery disease invo lving enterprise coronary artery of enterprise heart without angina pectoris 06/12/2017 Overview: S/P EDIL to LAD on 06/12/17 Last Assessment & Plan: No angina - Continue atorvastatin, isosorbide, metoprolol - no ASA due to thrombocytopenia Dyslipidemia, goal LDL below 70 11/25/2011 Last Assessment & Plan: Patient having no issues. She continues on Lipitor 40 mg daily Last lab I will was that I can find were from [phone] Assessment/plan: Dyslipidemia with patient currently taking Lipitor [...] mRNA, LNP-s, No Pre serve, 2-Dose Series ([employer]) 02/05/2021,01/08/2021 COVID-19, LNP-s, No Preserve , Ye-sucrose, [...] Notes * Telephone Encounter - Joyce Tinajero [facility] - 07/22/2024 1:46 PM EDTSigned Prescriptions: Disp Refills Metoprolol Succinate ER 50 MG Oral Tablet *90 Tab*1 Sig: TAKE ONE TABLET BY MOUTH IN THE MORNINGAuthorizing Provider: DHRUV MOSS User: JOYCE TINAJERO metFORMIN HCl 1000 MG Oral Tablet (Glucoph*180 Ta*1 Sig: TAKE 1 TABLET BY MOUTH TWICE DAILY WITH MORNING AND EVENING MEALSAuthorizing Provider: DHRUV MOSS User: JOYCE TINAJERO Levothyroxine Sodium 88 MCG Oral Tablet (L*90 Tab*1 Sig: TAKE ONE TABLET BY MOUTH FIRST THING IN THE MORNING AT LEAST 30 MINUTES BEFORE BREAKFAST OR OTHER MEDICATIONSAuthorizing Provider: DHRUV MOSS User: JOYCE TINAJERO * Telephone Encounter - Interface, [facility] Inbound - 07/22/2024 10:46 AM EDT Pending Prescriptions: Disp Refills Metoprolol Succinate ER 50 MG Oral Tablet *90 Tab*0 Sig: TAKE ONE TABLET BY MOUTH IN THE MORNING metFORMIN HCl 1000 MG Oral Tablet [Pharmac*180 Ta*0 Sig: TAKE 1 TABLET BY MOUTH TWICE DAILY WITH MORNING AND EVENING MEALS Levothyroxine Sodium 88 MCG Oral Tablet [P*90 Tab*0 Sig: TAKE ONE TABLET BY MOUTH FIRST THING IN THE MORNING AT LEAST 30 MINUTES BEFORE BREAKFAST OR OTHER MEDICATIONS documented in this encounter Plan of Treatment Upcoming Encounters Date Type Department Care Team (Late st Contact Info) Description 07/24/2024 7:10 AM EDT Laboratory Lab [facility] [address] [place] [address] [facility] [address] [place] [address] 07/31/2024 7:10 AM EDT Laboratory Lab [facility] [address] [place] [address] [facility] [address] [place] [address] 08/07/2024 7:10 AM EDT Laboratory Lab [facility] [address] [facility] [place] [address] [facility] [address] [facility] [place] [address] 08/13/2024 8:30 AM EDT Home Visit [facility] [address] [place] [address] Marisa Pacheco, TANYA [address] [place] [address] 08/27/2024 1:00 PM EDT Office Visit Pharmacy, [address] [place] [address] [place] [address] 08/28/2024 1:45 PM EDT Office Visit Ophthalmology, [facility] [address] [place] [address] Fernando Damon, [address] [place] [address] 10/16/2024 1:45 PM EST Office Visit Hematology/Oncology [facility] [address] [facility] [place] [id number] Jitendra Aguero MD [address] [facility] [place] [address] 12/24/2024 2:30 PM EST Nurse Only Ancillary [address] [place] [address] [place], Nurse [address] [place] [address] 01/13/2025 11:40 AM EST Office Visit Family Medicine [address] [place] [phone] Dhruv Moss MD [address] [place] [address] [place] [address] 07/21/2025 1:30 PM EDT Imaging Radiology [address] [place] [address] 08/04/2025 1:20 PM EDT Office Visit Family Medicine [address] [place] [phone] Dhruv Moss MD [address] [place] [address] [place] [id number] Scheduled Orders Name Type Priority Associated Diagnoses Orde r Schedule ALBUMIN / CREATININE RATIO, URINE Lab Routine HTN, goal below 140/90 Type 2 diabetes mellitus with hemoglobin A1c goal of less than 8.0% ([facility]) Expected: 07/22/2024, Expires: 07/22/2025 Health Maintenance Due Date Last Done Comments [...] DXA Scan 06/13/2025 06/13/2023, 08/0 11/2022, 03/16/2015 GFR 06/26/2025 06/26/2024, 02/12, 01/24/2024, Additional history exists Diabetic Foot Exam 07/02/2025 07/02/2024, 0 06/05/2023, 06/03/2022, Additional history exists Diabetic Eye Exam 07/17/2025 07/17/2024, , 07/17/2024, Additional history exists DTap/Tdap Vaccines (3 - Td or Tdap) 11/10/2026 11/10/2016, 03/30/2011 VITAMIN D LEVEL ONCE IN A LIFETIME-USE SMARTSET# [id number] Completed 05/11/2015 RETIRED - COLONOSCOPY-EVERY 5 YRS [...] this encounter Medical Devices Implanted Type Area Partner Cco Device Identifier Shelf Expiration Date Model / Serial / Lot Port Pwr Mri Isp Profile - [id number] Implanted:Qty: 1 on 07/24/2020 by Akash Castillo MD at OR [facility] Right: Chest CR BARD : PERIPHERAL VASCULAR 04/12/2021 [id number] / / [id number] documented as of this encounter Visit Diagnoses Diagnosis HTN, goal below 140/90 Unspecified essential hypertension Type 2 diabetes mellitus with hemoglobin A1c goal of less than 8.0% (HCC) Postoperative hypothyroidism Postsurgical hypothyroidism Screening mammogram for breast cancer documented in [...] on File Name Relationship Healthcare Agent [facility] Juanita Silva Adult Child Health Care Agent Care Teams Mail Deliverer Relationship Specialty Start Date End Date Dhruv Moss MD [address] [place] [id number] PCP - General Family Medicine 08/27/21 documented as of this encounter
--- OUTSIDE RECORDS SUMMARY | 2024-10-10 00:36 | External Medical Summary | Summary of Care ---
Author Name Unknown Organization [facility] Address [address] [facility] [place] [address] Phone [phone] Care Team Providers Care Diesel Engine Operator Name Role Phone Dhruv Moss MD Primary Care Provide r Encounter Details Date Type Department Care Team (Late st Contact Info) Description 07/22/2024 9:00 AM EDT Home Visit [facility], [facility] [address] [place] [address] Tremaine Morgan PA-C [address] [place] [address] MDS (myelodysplastic syndrome), high grade (HCC)*; Stem cells transplant status (HCC); Type 2 diabetes mellitus with hemoglobin A1c goal of less than 8.0% (HCC); Advanced care planning/counseling discussion Allergies No known active allergiesdocumented as of [...] chew 90 Capsule 1 4 Active Pen [place] 32G X 4 MM Use as directed. [...] 24 Hour (Imdur)Indications :Coronary artery disease involving [place] coronary artery of [place] heart without angina pectoris,HTN, goal below 140/90 TAKE ONE TABLET BY MOUTH IN THE MORNING 90 Tablet 1 4 Active Omeprazole 20 MG Oral Capsule Delayed Release (PriLOSEC)Indicati ons:MDS (myelodysplastic syndrome), high grade (HCC) Take 1 Capsule by mouth in the morning and 1 Capsule before bedtime. 180 Capsule 2 4 Active OneTouch Delica Lancets 30GIndications:Typ e 2 diabetes mellitus with hemoglobin A1c goal of less than 8.0% (HCC) Use to test blood sugar three times a day DXe11.9 300 Each 3 4 Active Insulin Glargine Solostar 100 UNIT/ML Subcutaneous Solution Pen-injector (Lantus SoloStar) Inject 16 Units under the skin in the morning. 30 mL 3 4 Active Ondansetron HCl 8 MG Oral TabletIndications: MDS (myelodysplastic syndrome), high grade (HCC) Take 1 Tablet by mouth every 8 hours as needed for Nausea. 60 Tablet 3 4 Active Ondansetron HCl 8 MG Oral TabletIndications: MDS (myelodysplastic syndrome), high grade (HCC) Take 1 Tablet by mouth every 8 hours as needed for Nausea. 60 Tablet 3 1 024 Discontinued(Re fill) Metoprolol Succinate ER 50 MG Oral Tablet Extended Release 24 Hour (toPROL XL)Indications:HTN , goal below 140/90 Take 1 Tablet by mouth in the morning. 90 Tablet 3 3 024 Discontinued Premarin 0.625 MG/GM Vaginal Cream (Estrogens Conjugated) Administer 1 g into the vagina at bedtime. As directed. 42.5 g 5 3 024 Discontinued(Edgardo pat preference/disc ontinuation) Levothyroxine Sodium 88 MCG Oral Tablet (Levoxyl)Indicatio ns:Postoperative hypothyroidism TAKE ONE TABLET BY MOUTH daily first thing in the morning at least 30 minutes prior to breakfast or other meds 90 Tablet 1 4 024 Discontinued metFORMIN HCl 1000 MG Oral Tablet (Glucophage)Indica tions:Type 2 diabetes mellitus with hemoglobin A1c goal of less than 8.0% ([facility]) TAKE 1 TABLET BY MOUTH TWICE DAILY WITH MORNING AND EVENING MEALS 180 Tablet 1 4 024 Discontinued Insulin Glargine Solostar 100 UNIT/ML Subcutaneous Solution Pen-injector (Lantus SoloStar) Inject 20 Units under the skin in the morning. 30 mL 3 4 024 Discontinued Oxymetazoline HCl 0.05 % Nasal SolutionIndication s:Bleeding from the nose Administer 2 Sprays into each nostril 2 times a day as needed for Congestion (for congestion). Do not use for more than three days. 6 mL 4 024 Discontinued(Pa tient preference/disc ontinuation) AMBULATORY MISCELLANEOUS MEDICATION Instill 1 Dose into the left eye as needed for Dry eyes. Pt. Unable to recall name of eye ointment Discontinued Hospital, Clinic, or Other Facility Administered [...] eyes and macular edema, unspecified whether buttermaker insulin use (HCC) 1.5 mg PERINEURAL PRN [...] 3553 0000 2079 7075 732 / DID: [id number] Matched Unrelated 10/24--- DPB1 Match ABO/Rh: A [...] Thrombocytopenia 12/06/2022 Last Assessment & Plan: Platelets 87329 on 03/20 Questionable hematuria Urinary incontinence 09/12/2022 [...] failure. Does not have any evidence of pbkxz-uukuec-sbme disease Last Assessment & Plan: Continues to [...] -continue venlafaxine Coronary artery disease invo lving [place] coronary artery of [place] heart without angina pectoris 06/12/2017 Overview: S/P EDIL to LAD on 06/12/17 Last Assessment & Plan: No angina - Continue atorvastatin, isosorbide, metoprolol - no ASA due to thrombocytopenia Dyslipidemia, goal LDL below 70 11/25/2011 Last Assessment & Plan: Patient having no issues. She continues on Lipitor 40 mg daily Last lab I will was that I can find were from [phone] Assessment/plan: Dyslipidemia with patient currently taking Lipitor [...] Sign Reading Time Taken Comments Blood Pressure 118/60 07/22/2024 10:35 AM EDT Pulse - - Temperature - - Respiratory Rate - - Oxygen Saturation - - Inhaled Oxygen Concentration - - Weight - [...] Progress Notes * Tremaine Morgan PA-C - 07/22/2024 9:04 AM EDT Images from the original note were not included. [facility] Problem Oriented Charting Provider Visit Date: 07/22/2024 Time: 9:04 AM [facility] Sub-Program: Primary Care at Home Assessment and Plan #1 MDS (myelodysplastic syndrome), high grade (HCC) (Primary) Overview: diagnosed in 2019, received 9 cycles of Dacogen, had a very good response, and underwent clinic stem cell transplantation in August 2021 bone marrow done lately on 2 occasions shows recurrence of underlying myelodysplastic syndrome withthe similar chromosomal changes suggest graft failure. Does not have any evidence of uamyz-pjwupi-dfvn disease Assessment & Plan: Continues to follow with hematology CBCd weekly and transfuse to maintain hgb >8 Overall poor progression reviewed at recent oncology appt Reviewed expected symptoms with patient today Orders: - Ondansetron HCl; Take 1 Tablet by mouth every 8 hours as needed for Nausea. Dispense: 60 Tablet; Refill: 3 #2 Stem cells transplant status (HCC) #3 Type 2 diabetes mellitus with hemoglobin A1c [...] metformin once daily now due to diarrhea Other orders - Insulin Glargine Solostar; Inject 16 Units under the skin in the morning. Dispense: 30 mL; Refill: 3 Additional Medical Decision Making: Patient lives with spouse MDS - s/p stem cell transplant Follows with hematology, labs weekly Daughter is RN and assists with care Reviewed expected symptoms with MDS Goals of care reviewed, remains full code Continues with weekly blood draws and transfusions as needed Reviewed benefits/burdens of CPR POLST and decision making guide left with patient Scheduled appointments in the next 60 days: Future Appointments-next 60 days Date/Time Provider Specialty Dept Phone 07/22/2024 11:30 AM [facility] [phone] 07/24/2024 7:10 AM [facility] [phone] 07/31/2024 7:10 AM [facility] [phone] 08/07/2024 7:10 AM [facility] [phone] 08/13/2024 8:30 AM Marisa Pacheco RN [facility] [phone] 08/27/2024 1:00 PM [facility] [phone] 08/28/2024 1:45 PM Fernando Damon, Ophthalmology [phone] 10/16/2024 1:45 PM (Arrive by 1:30 PM) Jitendra Aguero MD Hematology Oncology [phone] 12/24/2024 2:30 PM Cristina, Nurse [facility] Ancillary [phone] 01/13/2025 11:40 AM (Arrive by 11:25 AM) Dhruv Moss MD Family Medicine [phone] 07/21/2025 1:30 PM (Arrive by 1:15 PM) [facility] [place] Radiology [phone] 08/04/2025 1:20 PM (Arrive by 1:05 PM) Dhruv Moss MD Family Medicine [phone] A total of 45 minutes was spent face to face (via video-based telemedicine if designated as a telemedicine visit) Subjective Subjective Is this a Telemedicine Visit? No, this is an Home Visit. Reason For CtH Visit: Follow-Up Current Concerns: Ruth Burger is a 73 year old female seen today for a [facility] provider visit. PMH includes MDS s/p SCT, CAD, HLD, HTN, IDDM, ILD Today's concerns are: Constant fatigue, feels like she is sleeping all the time Ongoing ABDULLAHI Denies cough, SOB at rest, fever/chills Denies pain Has ongoing weakness and ambulatory dysfunction Has a can and walker, but does not always use them Reports having a fall last week, denies injury Appetite remains fair Admits to occasional nausea, denies vomiting Denies abd pain Has been having some diarrhea lately and has since cut her metformin back to once daily to see if this helps Additional Objective Objective Vitals: 07/22/24 1035 BP: 118/60 Last Weights: Wt Readings from Last 3 Encounters: 07/05/24 71.2 kg (157 lb) 07/02/24 71.7 kg (158 lb) 03/28/24 72.8 kg (160 lb 8 oz) Last BPs: BP Readings from Last 4 Encounters: 07/22/24 118/60 07/05/24 119/63 07/02/24 122/70 06/21/24 108/56 General: alert and no distress Neuro: alert & oriented x 3 with fluent speech Heart: regular rate & rhythm and no murmur Lungs: no chest wall tenderness, lungs clear to auscultation, no wheeze, no rales, no rhonchi Abdomen: abdomen soft, non-tender, and normal bowel sounds Ext: Normal extremities without edema Tremaine Morgan PA-C 9:04 AM documented in this encounter Miscellaneous Notes * ACP (Advance Care Planning) - Tremaien Morgan PA-C - 07/22/2024 4:17 PM EDT Patient-centered Communication 07/22/2024 The patient/surrogate voluntarily agreed to participate in [...] Recent Value Past ~10 years 07/22/2024 16:14 Additional Comments Additional Comments: POLST left to review with family 07/22/2024 POLST left to review with family Discerning What Matters [...] further hospitalization;Avoid the ICU;Avoid intubation/mechanical ventilation;Avoid the half-way;Avoid symptoms; with dignity (define below) 12/15/2021 with dignity, patient defines as: to not alone, not be a burden 12/15/2021 The patient's FEARS/WORRIES about illness are: Being a burden to family;Going back to the hospital;Going to a half-way;"Being a vegetable" (define below) 12/15/2021 "Being a vegetable", patient defines as: laying there without being able to do anything 12/15/2021 The patient's cultural or spiritual BELIEFS that may affect health care decisions: Sabianism deb 12/15/2021 Source: Content from [employer] Aligning Care With What Matters Most: Synopsis SmartLink Most Recent Value Past ~10 years 07/22/2024 16:14 Aligning Care With What Matters Most Interventions/Choices: CPR;Intubation/mechanical ventilation;Antibiotic therapy;Chemotherapy;Radiation therapy;Lab draws;Blood transfusion;Hospice; at home 07/22/2024 CPR;Intubation/mechanical ventilation;Antibiotic therapy;Chemotherapy;Radiation therapy;Lab draws;Blood transfusion;Hospice; at home Rationale for Decisions Synopsis SmartLink Most Recent [...] Intubation/mechanical ventilation decision are: being on it mcfp 12/15/2021 being on it mcfp Source: Content from [employer] 35 minutes spent in direct ccby-ap-pahu discussion today, Tremaine Morgan PA-C * Assessment & Plan Note - Tremaine Morgan PA-C - 07/22/2024 3:53 PM EDT Associated Problem(s): Type 2 diabetes mellitus with [...] metformin once daily now due to diarrhea * Assessment & Plan Note - Tremaine Morgan PA-C - 07/22/2024 3:52 PM EDT Associated Problem(s): MDS (myelodysplastic syndrome), high grade (HCC) Continues to follow with hematology CBCd weekly and transfuse to maintain hgb >8 Overall poor progression reviewed at recent oncology appt Reviewed expected symptoms with patient today documented in this encounter Plan of Treatment Upcoming Encounters Date Type Department Care Team (Late st Contact Info) Description 07/24/2024 7:10 AM EDT Laboratory Lab Mobile Phlebotomy [facility] [address] [place] [place] [address] [facility] [address] [place] [address] 07/31/2024 7:10 AM EDT Laboratory Lab [facility] Phlebotomy [facility] [address] [place] [address] [facility] [address] [place] [address] 08/07/2024 7:10 AM EDT Laboratory Lab [facility] Phlebot[facility] [address] [place] [address] [facility] [address] [place] [address] 08/13/2024 8:30 AM EDT Home Visit [facility] at [place], [facility] [address] [place] [place] [address] Marisa Pacheco, TANYA [address] [place] [address] 08/27/2024 1:00 PM EDT Office Visit Pharmacy, [address] [place] [address] [place] [address] 08/28/2024 1:45 PM EDT Office Visit Ophthalmology, [facility] [address] [place] [address] Fernando Damon DO [address] [place] [address] 10/16/2024 1:45 PM EST Office Visit Hematology/Oncology [facility] [address] [place] [phone] Jitendra Aguero MD [address] [place] [address] 12/24/2024 2:30 PM EST Nurse Only Ancillary [address] [place] [address] [place], Nurse [address] [place] [address] 01/13/2025 11:40 AM EST Office Visit Family Medicine [address] [place] [phone] Dhruv Moss MD [address] [place] [address] [place] [address] 07/21/2025 1:30 PM EDT Imaging Radiology [address] [place] [address] 08/04/2025 1:20 PM EDT Office Visit Family Medicine [address] [place] [phone] Dhruv Moss MD [address] [place] [address] [place] [address] Health Maintenance Due Date Last Done Comments [...] DXA Scan 06/13/2025 06/13/2023, 080 11/2022, 03/16/2015 GFR 06/26/2025 06/26/2024, 02/12, 01/24/2024, Additional history exists Diabetic Foot Exam 07/02/2025 07/02/2024, 0 06/05/2023, 06/03/2022, Additional history exists Diabetic Eye Exam 07/17/2025 07/17/2024, , 07/17/2024, Additional history exists DTap/Tdap Vaccines (3 - Td or Tdap) 11/10/2026 11/10/2016, 03/30/2011 VITAMIN D LEVEL ONCE IN A LIFETIME-USE SMARTSET# [id number] Completed 05/11/2015 RETIRED - COLONOSCOPY-EVERY 5 YRS [...] this encounter Medical Devices Implanted Type Area Records Tech Device Identifier Shelf Expiration Date Model / Serial / Lot Port Pwr Mri Isp Profile - [id number] Implanted:Qty: 1 on 07/24/2020 by Akash Castillo MD at OR [facility] Right: Chest CR BARD : PERIPHERAL VASCULAR 04/12/2021 [id number] / / [id number] documented as of this encounter Visit Diagnoses Diagnosis MDS (myelodysplastic syndrome), high grade (HCC)- Primary High grade myelodysplastic syndrome lesions Stem cells transplant status (HCC) 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 Type 2 diabetes mellitus with hemoglobin A1c goal of less than 8.0% (HCC) Advanced care planning/counseling discussion Other specified counseling Screening mammogram for breast cancer documented in [...] File Name Relationship Healthcare Agent [facility] Communication Juanita Silva Adult Child Health Care Agent Care Teams Diesel Engine Operator Relationship Specialty Start Date End Date Dhruv Moss MD [address] [place] [id number] PCP - General Family Medicine 08/27/21 documented as of this encounter
--- OUTSIDE RECORDS SUMMARY | 2024-10-10 00:36 | External Medical Summary | Summary of Care ---
Author Name Unknown Organization [facility] Address [address] [facility] [place] [address] Phone [phone] Care Team Providers Care Financial Aid Director Name Role Phone Dhruv Moss MD Primary Care Provide r Reason for Visit * Reason Onset Date Comments Medication Refill 07/21/2024 Encounter Details Date Type Department Care Team (Late st Contact Info) Description 07/21/2024 Refill Pharmacy, [address] [place] [address] Dhruv Moss MD [address] [place] [address] [place] [address] Type 2 diabetes mellitus with hemoglobin A1c goal of less than 8.0% ([facility]) Allergies No known active allergiesdocumented as of this encounter (statuses as of 07/22/2024) Medications Medication Sig Dispensed Refills Start Date End Date Status Ondansetron HCl 8 MG Oral TabletIndications:M DS [...] for Nausea. 60 Tablet 3 12/09/2021 Active [employer] Verio Flex System w/Device Kit Use as [...] than 8.0% ([facility]) Inject 8 units with breakfast, [...] than 8.0% ([facility]) TAKE 1 TABLET BY MOUTH TWICE DAILY WITH MORNING AND EVENING MEALS 180 Tablet 1 01/17/2024 Active Magnesium 100 MG Oral Capsule Take 1 Capsule by mouth in the morning. Active Venlafaxine HCl ER 150 MG Oral Capsule Extended Release 24 Hour (Effexor XR)Indications:Recu rrent major depressive disorder, in partial remission ([facility]) TAKE ONE CAPSULE BY MOUTH EVERY DAY do not cut, crush, or chew 90 Capsule 1 04/01/2024 Active Insulin Glargine Solostar 100 UNIT/ML Subcutaneous Solution Pen-injector (Lantus SoloStar) Inject 20 Units under the skin in the morning. 30 mL 04/05/2024 Active Pen [place] 32G X 4 MM Use as directed. [...] 24 Hour (Imdur)Indications: Coronary artery disease involving [place] coronary artery of [place] heart without angina pectoris,HTN, goal below 140/90 TAKE ONE TABLET BY MOUTH IN THE MORNING 90 Tablet 1 06/15/2024 Active Oxymetazoline HCl 0.05 % Nasal SolutionIndications [...] to recall name of eye ointment Active OneTouch Delica Lancets 30GIndications:Type 2 diabetes mellitus with hemoglobin A1c goal of less than 8.0% (HCC) Use to test blood sugar three times a day DXe11.9 300 Each 3 07/22/2024 Active OneTouch Delica Lancets 30GIndications:Type 2 diabetes mellitus with hemoglobin A1c goal of less than 8.0% (HCC) Use to test blood sugar three times a day DXe11.9 300 Each 3 12/16/2021 07/21/20 24 Discontinu ed(Refill) Hospital, Clinic, or Other Facility Administered Medication Ordered Dose Route Frequency Start Date End Date Status NSS 0.9% 1,000 mL bolus infusionIndications:MDS (myelodysplastic syndrome), high grade (HCC),Stem cells transplant status ([facility] [...] both eyes and macular edema, unspecified whether mechanical intern insulin use (HCC) 1.5 mg PERINEURAL PRN [...] 3553 0000 2079 7075 732 / DID: [id number] Matched Unrelated 10/24--- DPB1 Match ABO/Rh: A [...] Thrombocytopenia 12/06/2022 Last Assessment & Plan: Platelets 22345 on 03/20 Questionable hematuria Urinary incontinence 09/12/2022 [...] failure. Does not have any evidence of hwgtp-rjrauv-nwad disease Last Assessment & Plan: Continues to [...] -continue venlafaxine Coronary artery disease invo lving [place] coronary artery of [place] heart without angina pectoris 06/12/2017 Overview: S/P EDIL to LAD on 06/12/17 Last Assessment & Plan: No angina - Continue atorvastatin, isosorbide, metoprolol - no ASA due to thrombocytopenia Dyslipidemia, goal LDL below 70 11/25/2011 Last Assessment & Plan: Patient having no issues. She continues on Lipitor 40 mg daily Last lab I will was that I can find were from [phone] Assessment/plan: Dyslipidemia with patient currently taking Lipitor [...] neutropenia 07/27/2021 06/03/20 COVID-19 virus infection 07/25/2021 07/ Myelodysplastic syndrome 06/09/2020 Type 2 diabetes mellitus [...] encounter Miscellaneous Notes * Telephone Encounter - Margie Pool [facility] - 07/22/2024 8:45 AM EDT Signed Prescriptions: Disp Refills OneTouch Delica Lancets 30G 300 Ea*3 Sig: Use to test blood sugar three times a day DXe11.9Authorizing Provider: DHRUV MOSS User: MARGIE POOL documented in this encounter Plan of Treatment Upcoming Encounters Date Type Department Care Team (Late st Contact Info) Description 07/22/2024 11:30 AM EDT Telemedicine Pharmacy, [address] [place] [address] [place] [address] 07/24/2024 7:10 AM EDT Laboratory Lab Mobile Phlebotomy [facility] [address] [place] [address] [facility] [address] [place], [place] [address] 07/31/2024 7:10 AM EDT Laboratory Lab [facility] Phlebot[facility] [address] [place], [place] [address] [facility] [address] [place] [address] 08/07/2024 7:10 AM EDT Laboratory Lab Mobile Phlebotomy [facility] [address] [place] [address] [facility] [address] [place] [address] 08/13/2024 8:30 AM EDT Home Visit isinger at [place], [facility] [address] [place] [address] Marisa Pacheco, TANYA [address] [place] [address] 08/27/2024 1:00 PM EDT Office Visit Pharmacy, [address] [place] [address] [place] [address] 08/28/2024 1:45 PM EDT Office Visit Ophthalmology, [facility] [address] [place] [address] Fernando Damon, [address] [place] [address] 10/16/2024 1:45 PM EST Office Visit Hematology/Oncology [facility] [address] [facility] [place] [phone] Jitendra Aguero MD [address] [facility] [place] [address] 12/24/2024 2:30 PM EST Nurse Only Ancillary [address] [place] [address] [place], Nurse [address] [place] [address] 01/13/2025 11:40 AM EST Office Visit Family [address] [place] [phone] Dhruv Moss MD [address] [place] [address] [place] [address] 07/21/2025 1:30 PM EDT Imaging Radiology [address] [place] [address] 08/04/2025 1:20 PM EDT Office Visit [address] [place] [phone] Dhruv Moss MD [address] [place] [address] [place] [address] Health Maintenance Due Date Last Done Comments [...] D LEVEL ONCE IN A LIFETIME-USE SMARTSET# [id number] Completed 05/11/2015 RETIRED - COLONOSCOPY-EVERY 5 YRS [...] this encounter Medical Devices Implanted Type Area Milk House Worker Device Identifier Shelf Expiration Date Model / Serial / Lot Port Pwr Mri Isp Profile - [id number] Implanted:Qty: 1 on 07/24/2020 by Akash Castillo MD at OR [facility] Right: Chest CR BARD : PERIPHERAL VASCULAR 04/12/2021 [id number] / / [id number] documented as of this encounter Visit Diagnoses Diagnosis Type 2 diabetes mellitus with hemoglobin A1c goal of less than 8.0% (HCC) Screening mammogram for breast cancer documented [...] Adult Child Health Care Agent Care Teams Financial Aid Director Relationship Specialty Start Date End Date Dhruv Moss MD [address] [place] [address] [place] [address] PCP - General Family Medicine 08/27/21 documented as of this encounter
--- OUTSIDE RECORDS SUMMARY | 2024-10-10 00:36 | External Medical Summary | Summary of Care ---
Author Name Unknown Organization [facility] Address [address] [facility] [place] [address] Phone [phone] Care Team Providers Care Order Taker Name Role Phone Dhruv Moss MD Primary Care Provide r Reason for Visit * Reason Comments Medication Discussion Encounter Details Date Type Department Care Team (Late st Contact Info) Description 07/22/2024 11:30 AM EDT Telemedicine Pharmacy, [address] [place] [address] [place] [address] Encounter for medication review* Allergies No known active allergiesdocumented as of [...] for Nausea. 60 Tablet 3 2 Active TV PixieTouch Verio Flex System w/Device Kit Use as directed . 2 Active Acetaminophen 500 MG Oral Tablet Take 1 Tablet by mouth every 6 hours as needed. Active NovoLIN R 100 UNIT/ML Injection Solution (insulin REGULAR human)Indications: Type 2 diabetes mellitus with hemoglobin A1c goal of less than 8.0% ([facility]) Inject 8 units with breakfast, [...] chew 90 Capsule 1 4 Active Pen [place] 32G X 4 MM Use as directed. [...] hemoglobin A1c goal of less than 8.0% ([facility]) Use to test blood sugar three times a day DXe11.9 300 Strip 3 4 Active Acyclovir 800 MG Oral Tablet (Zovirax)Indicatio ns:MDS (myelodysplastic syndrome), high grade (HCC) TAKE ONE TABLET BY MOUTH TWICE DAILY in the morning and before bedtime 60 Tablet 11 4 Active Isosorbide Mononitrate ER 30 MG Oral Tablet Extended Release 24 Hour (Imdur)Indications :Coronary artery disease involving [place] coronary artery of [place] heart without angina pectoris,HTN, goal below 140/90 [...] for Nausea. 60 Tablet 3 4 Active Metoprolol Succinate ER 50 MG [...] MEALS 180 Tablet 1 4 024 Discontinued Oxymetazoline HCl 0.05 % [...] 3553 0000 2079 [id number] 732 / DID: [id number] Matched Unrelated 10/24--- DPB1 Match ABO/Rh: A [...] Thrombocytopenia 12/06/2022 Last Assessment & Plan: Platelets 83439 on 03/20 Questionable hematuria Urinary incontinence 09/12/2022 [...] failure. Does not have any evidence of iamde-iumvcp-kjtq disease Last Assessment & Plan: Continues to [...] -continue venlafaxine Coronary artery disease invo lving [place] coronary artery of [place] heart without angina pectoris 06/12/2017 Overview: S/P EDIL to LAD on 06/12/17 Last Assessment & Plan: No angina - Continue atorvastatin, isosorbide, metoprolol - no ASA due to thrombocytopenia Dyslipidemia, goal LDL below 70 11/25/2011 Last Assessment & Plan: Patient having no issues. She continues on Lipitor 40 mg daily Last lab I will was that I can find were from [phone] Assessment/plan: Dyslipidemia with patient currently taking Lipitor [...] of this encounter Progress Notes * Makenzie Pool RPh - 07/22/2024 3:43 PM EDT CMR completed today in Medication Management encounter (07/22/24). Makenzie Pool RPh, PharmD Clinical Pharmacist - [facility] 07/22/2024, 3:44 PM [phone] documented in this encounter Plan of Treatment Upcoming Encounters Date Type Department Care Team (Late st Contact Info) Description 07/24/2024 7:10 AM EDT Laboratory Lab Mobile Phlebotomy [facility] [address] [place] [address] [address] [address] [facility] [address] [place] [address] [address] 07/31/2024 7:10 AM EDT Laboratory Lab Mobile Phlebotomy [facility] [address] [place] [address] [address] [facility] Draw [address] [facility] [place] [address] 08/07/2024 7:10 AM EDT Laboratory Lab Mobile Phlebotomy MV [address] [facility] [place] [address] [facility] Mobile Home Draw [address] [facility] [place] [address] 08/13/2024 8:30 AM EDT [facility], [facility] [address] [place] [address] Marisa Pacheco, TANYA [address] [place] [address] 08/27/2024 1:00 PM EDT Office Visit Pharmacy, [address] [place] [address] [place] [address] 08/28/2024 1:45 PM EDT Office Visit Ophthalmology, [facility] [address] [place] [address] Fernando Damon DO [address] [place] [address] 10/16/2024 1:45 PM EST Office Visit Hematology/Oncology [facility] [address] [place] [phone] Jitendra Aguero MD [address] [place] [address] 12/24/2024 2:30 PM EST Nurse Only Ancillary [address] [place] [address] [place], Nurse [address] [place] [address] 01/13/2025 11:40 AM EST Office Visit [address] [place] [address] Dhruv Moss MD [address] [place] [address] [place] [address] 07/21/2025 1:30 PM EDT Imaging Radiology [address] [place] [address] 08/04/2025 1:20 PM EDT Office Visit [address] [place] [address] Dhruv Moss MD [address] [place] [address] [place] [address] Health Maintenance Due Date Last Done Comments [...] D LEVEL ONCE IN A LIFETIME-USE SMARTSET# [id number] Completed 05/11/2015 RETIRED - COLONOSCOPY-EVERY 5 YRS [...] this encounter Medical Devices Implanted Type Area Rate Clerk Device Identifier Shelf Expiration Date Model / Serial / Lot Port Pwr Mri Isp Profile - [id number] Implanted:Qty: 1 on 07/24/2020 by Akash Castillo MD at OR [facility] Right: Chest CR BARD : PERIPHERAL VASCULAR 04/12/2021 [id number] / / [id number] documented as of this encounter Visit Diagnoses Diagnosis Encounter for medication review- Primary Encounter for long-term (current) use of [...] Agents on File Name Relationship Healthcare Agent [facility] Communication [facility] Adult Child Health Care Agent Care Teams Order Taker Relationship Specialty Start Date End Date Dhruv Moss MD [address] [place], [place] [address] [address] PCP - General Family Medicine 08/27/21 documented as of this encounter
--- OUTSIDE RECORDS SUMMARY | 2024-10-10 00:37 | External Medical Summary | Summary of Care ---
Author Name Unknown Organization [facility] Address [address] [facility] [address] Phone [phone] Care Team Providers Care Hangar Attendant Name Role Phone Dhruv Moss MD Primary Care Provide r Encounter Details Date Type Department Care Team (Late st Contact Info) Description 07/18/2024 Result Scan Unspecified Department Jitendra Aguero MD [address] [facility] [phone] <No scans attached> Allergies No known active allergiesdocumented as of this encounter (statuses as of 07/18/2024) Medications Medication Sig Dispensed Refills Start Date [...] 300 Each 3 12/16/2021 Active OneTouch Verio Flex System [...] than 8.0% ([facility]) Inject 8 units with breakfast, [...] than 8.0% ([facility]) TAKE 1 TABLET BY MOUTH [...] morning. 30 mL 3 04/05/2024 Active Pen [place] 32G X 4 MM Use as directed. 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 Date of Transplant: 09/01/2021 Conditioning Regimen: Fludarabine / Busulfan 2 with post-transplant Cytoxan ABO/Rh: A Positive CMV status: CMV Positive--- GRID: [id number] 2079 [id number] 732 / DID: [id number] Matched Unrelated 10/24--- DPB1 Match ABO/Rh: A [...] Thrombocytopenia 12/06/2022 Last Assessment & Plan: Platelets 53635 on 03/20 Questionable hematuria Urinary incontinence 09/12/2022 [...] failure. Does not have any evidence of ebmry-xwaawp-book disease Last Assessment & Plan: Continues to [...] was that I can find were from [phone] Assessment/plan: Dyslipidemia with patient currently taking Lipitor [...] as of this encounter (statuses as of 07/18/2024) Resolved Problems Problem Noted Date Diagnosed Date Resolved Date Controlled substance agreement signed 03/04/2024 03/04/2024 Candidiasis, esophageal 03/10/2022 07/12/2021 Last Assessment & Plan: The patient has [...] as of this encounter (statuses as of 07/18/2024) Immunizations Name Administration Dates Next Due COVID-19 [...] Description 07/22/2024 11:30 AM EDT Telemedicine Pharmacy, [address] [place] [address] [place] [address] 07/24/2024 7:10 AM EDT Laboratory Lab Mobile Phlebotomy [facility] [address] [employer] [place] [address] [facility] Draw [address] [place] [address] [address] 07/31/2024 7:10 AM EDT Laboratory Lab Mobile Phlebotomy [facility] [address] [place] [address] [facility] Draw [address] [place] [address] [address] 08/07/2024 7:10 AM EDT Laboratory Lab [facility]omy [facility] [facility] [address] [facility] Mobile Home Draw [address] [facility] [place] [address] 08/13/2024 8:30 AM EDT [facility], [facility] [address] [place] [address] Marisa Pacheco, TANYA [address] [place] [address] 08/27/2024 1:00 PM EDT Office Visit Pharmacy, [address] [place] [address] [place] [address] 08/28/2024 1:45 PM EDT Office Visit Ophthalmology, [facility] [address] [place] [address] Fernando Damon DO [address] [place] [address] 10/16/2024 1:45 PM EST Office Visit Hematology/Oncology [facility] [address] [place] [phone] Jitendra Aguero MD [address] [place] [address] 12/24/2024 2:30 PM EST Nurse Only Ancillary [address] [place] [address] [place], Nurse [address] [place] [address] 01/13/2025 11:40 AM EST Office Visit Family Medicine [address] [place] [address] Dhruv Moss MD [address] [place] [address] [place] [address] 07/21/2025 1:30 PM EDT Imaging Radiology [address] [place] [address] 08/04/2025 1:20 PM EDT Office Visit Family Medicine [address] [place] [address] Dhruv Moss MD [address] [place] [address] [place] [address] Health Maintenance Due Date Last Done Comments [...] D LEVEL ONCE IN A LIFETIME-USE SMARTSET# [id number] Completed 05/11/2015 RETIRED - COLONOSCOPY-EVERY 5 YRS [...] this encounter Medical Devices Implanted Type Area Airline Station Agent Device Identifier Shelf Expiration Date Model / Serial / Lot Port Pwr Mri Isp Profile - [id number] Implanted:Qty: 1 on 07/24/2020 by Akash Castillo MD at [facility] Right: Chest CR BARD : PERIPHERAL VASCULAR 04/12/2021 [id number] / / [id number] documented as of this encounter Procedures Procedure Name Priority Date/Time Associated Diagnosis Comments OUTSIDE LAB RESULTS 07/18/2024 documented in this encounter Results * OUTSIDE LAB RESULTS (07/18/2024) 07/18/2024 Jitendra Aguero MD LABORATORY documented in this [...] Adult Child Health Care Agent Care Teams Hangar Attendant Relationship Specialty Start Date End Date Dhruv Moss MD [address] [place] [address] PCP - General Family Medicine 08/27/21 documented as of this encounter
--- OUTSIDE RECORDS SUMMARY | 2024-10-10 00:37 | External Medical Summary | Summary of Care ---
Author Name Unknown Organization [facility] Address [address] [facility] [address] Phone [phone] Care Team Providers Care Shirt Turner Name Role Phone Dhruv Moss MD Primary Care Provide r Reason for Visit * Reason Onset Date Comments Other 07/17/2024 Platelets Encounter Details Date Type Department Care Team (Late st Contact Info) Description 07/17/2024 Telephone Hematology/Oncology [facility] [address] [place] [address] Jitendra Aguero MD [address] [place] [address] Other (Platelets) Allergies No known active allergiesdocumented as of this encounter (statuses as of 07/17/2024) Medications Medication Sig Dispensed Refills Start Date [...] day DXe11.9 300 Each 3 12/16/2021 Active SurfingbirdTouch Verio Flex System w/Device Kit Use as [...] of less than 8.0% ([facility]) TAKE 1 TABLET BY MOUTH [...] morning. 30 mL 3 04/05/2024 Active Pen [place] 32G X 4 MM Use as directed. 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 Date of Transplant: 09/01/2021 Conditioning Regimen: Fludarabine / Busulfan 2 with post-transplant Cytoxan ABO/Rh: A Positive CMV status: CMV Positive--- GRID: [id number] [id number] 732 / DID: [id number] Matched Unrelated 10/24--- DPB1 Match ABO/Rh: A [...] Thrombocytopenia 12/06/2022 Last Assessment & Plan: Platelets [address]648 on 03/20 Questionable hematuria Urinary incontinence 09/12/2022 [...] failure. Does not have any evidence of unjah-qsvjwi-rrgb disease Last Assessment & Plan: Continues to [...] -continue venlafaxine Coronary artery disease invo lving [place] coronary artery of [place] heart without angina pectoris 06/12/2017 Overview: S/P EDIL to LAD on 06/12/17 Last Assessment & Plan: No angina - Continue atorvastatin, isosorbide, metoprolol - no ASA due to thrombocytopenia Dyslipidemia, goal LDL below 70 11/25/2011 Last Assessment & Plan: Patient having no issues. She continues on Lipitor 40 mg daily Last lab I will was that I can find were from [phone] Assessment/plan: Dyslipidemia with patient currently taking Lipitor [...] as of this encounter (statuses as of 07/17/2024) Resolved Problems Problem Noted Date Diagnosed Date [...] Assessment & Plan: Chemotherapy has been completed MIHCELE (acute kidney injury) 10/27/2021 Encounter for antineoplastic [...] as of this encounter (statuses as of 07/17/2024) Immunizations Name Administration Dates Next Due COVID-19 [...] Telephone Encounter - Makenzie Barth LPN - 07/17/2024 12:15 PM EDT Left voicemail on patient's spouses answering machine, return phone number provided. Called and spoke with Juanita, patient's daugther. Made her aware of patient's platelet count. Sheverbalized understanding. Offering patient a transfusion time today at [facility] at 2:30 pm for 1 unit of platelets. Daughter verbalized understanding and states she will call the patient. * Telephone Encounter - Makenzie Barth LPN - 07/17/2024 12:07 PM EDT ----- Message from Jitendra Aguero MD sent at 07/17/2024 12:00 PM EDT ----- Blood workup done on 07/17/2024: -WBC 19,400, Hemoglobin and hematocrit -7.3/22, Platelet count of less than 10,000 Would like to transfuse 1 unit of Platelet at [facility] No need for blood transfusion at this time. Repeat CBCD every weekly as we planned earlier. documented in this encounter Plan of Treatment Upcoming Encounters Date Type Department Care Team (Late st Contact Info) Description 07/22/2024 11:30 AM EDT Telemedicine Pharmacy, [address] [place] [address] [place] [address] 07/24/2024 7:10 AM EDT Laboratory Lab Mobile Phlebotomy [facility] [address] [place] [address] [facility], [facility] Mobile Home Draw [address] [place] [address] 07/31/2024 7:10 AM EDT Laboratory Lab Mobile Phlebotomy [facility] [address] [place] [address] [facility], [facility] Mobile Home Draw [address] [place] [address] 08/07/2024 7:10 AM EDT Laboratory Lab Mobile Phlebotomy [facility] [address] [place] [address] [facility], [facility] Mobile Home Draw [address] [place] [address] 08/13/2024 8:30 AM EDT Home Visit [facility] [employer], [facility] [address] [place] [address] Marisa Pacheco, TANYA [address] [place] [address] 08/27/2024 1:00 PM EDT Office Visit Pharmacy, [address] [place] [address] [place] [address] 08/28/2024 1:45 PM EDT Office Visit Ophthalmology, [facility] [address] [place] [address] Fernando Damon, [address] [place] [address] 10/16/2024 1:45 PM EST Office Visit Hematology/Oncology [facility] [address] [place] [phone] Jitendra Aguero MD [address] [place] [address] 12/24/2024 2:30 PM EST Nurse Only Ancillary [address] [place] [address] [place], Nurse [address] [place] [address] 01/13/2025 11:40 AM EST Office Visit Family Medicine [address] [place] [address] Dhruv Moss MD [address] [place] [address] [place] [address] 07/21/2025 1:30 PM EDT Imaging Radiology [address] [place] [address] 08/04/2025 1:20 PM EDT Office Visit Family Medicine [address] [place] [phone] Dhruv Moss MD [address] [place] [address] [place] [address] Health Maintenance Due Date [...] D LEVEL ONCE IN A LIFETIME-USE SMARTSET# [id number] Completed 05/11/2015 RETIRED - COLONOSCOPY-EVERY 5 YRS [...] this encounter Medical Devices Implanted Type Area Publicity Consultant Device Identifier Shelf Expiration Date Model / Serial / Lot Port Pwr Mri Isp Profile - [id number] Implanted:Qty: 1 on 07/24/2020 by Akash Castillo MD at [facility] Right: Chest CR BARD : PERIPHERAL VASCULAR 04/12/2021 [id number] / / [id number] documented as of this encounter Advance Directives [...] Adult Child Health Care Agent Care Teams Shirt Turner Relationship Specialty Start Date End Date Dhruv Moss MD [address] [place] [address] PCP - General Family Medicine 08/27/21 documented as of this encounter
--- OUTSIDE RECORDS SUMMARY | 2024-10-10 00:37 | External Medical Summary | Summary of Care ---
Author Name Unknown Organization [facility] Address [address] [facility] [address] Phone [phone] Care Team Providers Care Arm Maker Name Role Phone Dhruv Moss MD Primary Care Provide r Encounter Details Date Type Department Care Team (Late st Contact Info) Description 07/18/2024 Telephone Pharmacy, [address] [place] [phone] [facility] [phone] Allergies No known active allergiesdocumented as of [...] day DXe11.9 300 Each 3 12/16/2021 Active [employer] Verio Flex System w/Device Kit Use as [...] less than 8.0% ([facility]) TAKE 1 TABLET BY MOUTH TWICE [...] morning. 30 mL 3 04/05/2024 Active Pen [place] 32G X 4 MM Use as directed. [...] 24 Hour (Imdur)Indications:C oronary artery disease involving [place] coronary artery of [place] heart without angina pectoris,HTN, goal below 140/90 [...] grade (HCC),Stem cells transplant status ([facility]),Acquired hypothyroidism 1000 mL IV DAILY PRN [...] [id number] 0000 2079 7075 732 / DID: [id number] Matched Unrelated 10/24--- DPB1 Match ABO/Rh: A [...] Thrombocytopenia 12/06/2022 Last Assessment & Plan: Platelets 69895 on 03/20 Questionable hematuria Urinary incontinence 09/12/2022 [...] failure. Does not have any evidence of einqx-kgetio-hsac disease Last Assessment & Plan: Continues to [...] -continue venlafaxine Coronary artery disease invo lving [place] coronary artery of [place] heart without angina pectoris 06/12/2017 Overview: S/P EDIL to LAD on 06/12/17 Last Assessment & Plan: No angina - Continue atorvastatin, isosorbide, metoprolol - no ASA due to thrombocytopenia Dyslipidemia, goal LDL below 70 11/25/2011 Last Assessment & Plan: Patient having no issues. She continues on Lipitor 40 mg daily Last lab I will was that I can find were from [phone] Assessment/plan: Dyslipidemia with patient currently taking Lipitor [...] Telephone Encounter - Makenzie Pool RPh - 07/18/2024 3:56 PM EDT Spoke to Marisa Pacheco RN regarding patient. Patient inquiring on transitioning suppliers for patient's [employer] 2 supplies. Updated [facility] order placed. Makenzie Pool RPh, PharmD Clinical Pharmacist - [facility] 07/18/2024, 3:57 PM [phone] documented in this encounter Plan of Treatment Upcoming Encounters Date Type Department Care Team (Late st Contact Info) Description 07/22/2024 11:30 AM EDT Telemedicine Pharmacy, [address] [place] [address] [place] [address] 07/24/2024 7:10 AM EDT Laboratory Lab Mobile Phlebotomy [facility] [address] [place], [place] [address] [facility], Gml Mobile Home Draw [address] [place], [place] [address] 07/31/2024 7:10 AM EDT Laboratory Lab Mobile Phlebotomy [facility] [address] [place], [place] [address] [facility], Gml Mobile Home Draw [address] [place] [address] 08/07/2024 7:10 AM EDT Laboratory Lab Mobile Phlebotomy [facility] [address] [place], [place] [address] Mv[facility], Gml Mobile Home Draw [address] [place], [place] [address] 08/13/2024 8:30 AM EDT [facility] Visit [facility], [facility] [address] [place] [address] Marisa Pacheco, TANYA [address] [place] [address] 08/27/2024 1:00 PM EDT Office Visit Pharmacy, [address] [place] [address] [place] [address] 08/28/2024 1:45 PM EDT Office Visit Ophthalmology, [facility] [address] [place] [address] Fernando Damon DO [address] [place] [address] 10/16/2024 1:45 PM EST Office Visit Hematology/Oncology [facility] 200 [facility] [place] [address] Jitendra Aguero MD 200 [facility] [place] [address] 12/24/2024 2:30 PM EST Nurse Only Ancillary [address] [place] [address] [place], Nurse Annual [address] [place] [address] 01/13/2025 11:40 AM EST Office Visit Family Medicine [address] [place] [phone] Dhruv Moss MD [address] [place] [address] [place] [address] 07/21/2025 1:30 PM EDT Imaging Radiology [address] [place] [address] 08/04/2025 1:20 PM EDT Office Visit Family Medicine [address] [place] [address] Dhruv Moss MD [address] [place] [address] [place] [address] Health Maintenance Due Date Last Done Comments [...] D LEVEL ONCE IN A LIFETIME-USE SMARTSET# [id number] Completed 05/11/2015 RETIRED - COLONOSCOPY-EVERY 5 YRS [...] this encounter Medical Devices Implanted Type Area Chief Engineering Division Device Identifier Shelf Expiration Date Model / Serial / Lot Port Pwr Mri Isp Profile - [id number] Implanted:Qty: 1 on 07/24/2020 by Akash Castillo MD at OR [facility] Right: Chest CR BARD : PERIPHERAL VASCULAR 04/12/2021 [id number] / / [id number] documented as of this encounter Visit Diagnoses Diagnosis Type 2 diabetes mellitus with hemoglobin A1c goal of less than 8.0% (HCC)- Primary Screening mammogram for breast cancer [...] Adult Child Health Care Agent Care Teams Arm Maker Relationship Specialty Start Date End Date Dhruv Moss MD [address] [place] [address] [place] [address] PCP - General Family Medicine 08/27/21 documented as of this encounter
--- OUTSIDE RECORDS SUMMARY | 2024-10-10 00:37 | External Medical Summary | Summary of Care ---
Author Name Unknown Organization [facility] Address [address] [facility] [address] Phone [phone] Care Team Providers Care Sawmilling Operator Name Role Phone Dhruv Moss MD Primary Care Provide r Reason for Visit * Reason Onset Date Comments Other 07/17/2024 Platelets Encounter Details Date Type Department Care Team (Late st Contact Info) Description 07/17/2024 Telephone Hematology/Oncology [facility] [address] [place] [address] Jitendra Aguero MD [address] [place] [address] Other (Platelets) Allergies No known active allergiesdocumented [...] day DXe11.9 300 Each 3 12/16/2021 Active [employer] PizzaTouch Verio Flex System w/Device Kit Use as [...] less than 8.0% ([facility]) Inject 8 units with breakfast, 4 [...] less than 8.0% ([facility]) TAKE 1 TABLET BY MOUTH TWICE [...] morning. 30 mL 3 04/05/2024 Active Pen [place] 32G X 4 MM Use as directed. [...] 24 Hour (Imdur)Indications:C oronary artery disease involving [place] coronary artery of [place] heart without angina pectoris,HTN, goal below 140/90 [...] 3553 0000 2079 7075 732 / DID: [id number] Matched Unrelated 10/24--- DPB1 Match ABO/Rh: A [...] Thrombocytopenia 12/06/2022 Last Assessment & Plan: Platelets 38749 on 03/20 Questionable hematuria Urinary incontinence 09/12/2022 [...] failure. Does not have any evidence of xylmb-vqslqr-cdnf disease Last Assessment & Plan: Continues to [...] -continue venlafaxine Coronary artery disease invo lving [place] coronary artery of [place] heart without angina pectoris 06/12/2017 Overview: S/P EDIL to LAD on 06/12/17 Last Assessment & Plan: No angina - Continue atorvastatin, isosorbide, metoprolol - no ASA due to thrombocytopenia Dyslipidemia, goal LDL below 70 11/25/2011 Last Assessment & Plan: Patient having no issues. She continues on Lipitor 40 mg daily Last lab I will was that I can find were from [id number] Assessment/plan: Dyslipidemia with patient currently taking Lipitor [...] Encounter - Makenzie Barth LPN - 07/17/2024 12:47 PM EDT Patient's daughter called back and states she is unable to get in touch with the patient. She reports the patient had an eye appointment today. She is requesting the platelet transfusion be rescheduled to tomorrow "late morning" 07/18/2024. * Telephone Encounter - Makenzie Barth LPN - 07/17/2024 12:15 PM EDT Left voicemail on patient's spouses answering machine, return phone number provided. Called and spoke with Juanita, patient's daugther. Made her aware of patient's platelet count. Sheverbalized understanding. Offering patient a transfusion time today at [facility] at 2:30 pm for 1 unit of platelets. Daughter verbalized understanding and states she will call the patient. * Telephone Encounter - Maeknzie Barth LPN - 07/17/2024 12:07 PM EDT ----- Message from Jitendra Aguero MD sent at 07/17/2024 12:00 PM EDT ----- Blood workup done on 07/17/2024: -WBC 19,400, Hemoglobin and hematocrit -7.3/22, Platelet count of less than 10,000 Would like to transfuse 1 unit of Platelet at [facility] No need for blood transfusion at this time. Repeat CBCD every weekly as we planned earlier. documented in this encounter Plan of Treatment Upcoming Encounters Date Type Department Care Team (Late st Contact Info) Description 07/22/2024 11:30 AM EDT Telemedicine Pharmacy, [address] [place] [address] [place] [address] 07/24/2024 7:10 AM EDT Laboratory Lab Mobile [facility] [address] [place] [address] [facility] [address] [place] [address] [address] 07/31/2024 7:10 AM EDT Laboratory Lab [facility] [address] [place] [address] [address] [address] [facility] [address] [place] [address] [address] 08/07/2024 7:10 AM EDT Laboratory Lab [facility] [address] [place] [address] [facility] [address] [facility] [place] [address] 08/13/2024 8:30 AM EDT Home Visit [facility], [facility] [address] [place] [address] Marisa Pacheco, TANYA [address] [place] [address] 08/27/2024 1:00 PM EDT Office Visit Pharmacy, [address] [place] [address] [place] [address] 08/28/2024 1:45 PM EDT Office Visit Ophthalmology, [facility] [address] [place] [address] Fernando Damon DO [address] [place] [address] 10/16/2024 1:45 PM EST Office Visit Hematology/Oncology [address] [place] [phone] Jitendra Aguero MD [address] [facility] [place] [address] 12/24/2024 2:30 PM EST Nurse Only Ancillary [address] [place] [address] Cristina, Nurse [address] [place] [address] 01/13/2025 11:40 AM EST Office Visit Family Medicine [address] [place] [phone] Dhruv Moss MD [address] [place] [address] [place] [address] 07/21/2025 1:30 PM EDT Imaging Radiology [address] [place] [address] 08/04/2025 1:20 PM EDT Office Visit Family Medicine [address] [place] [address] Dhruv Moss MD [address] [place] [address] [place] [address] Health Maintenance Due Date Last Done Comments [...] D LEVEL ONCE IN A LIFETIME-USE SMARTSET# [id number] Completed 05/11/2015 RETIRED - COLONOSCOPY-EVERY 5 YRS [...] this encounter Medical Devices Implanted Type Area Bonding Machine Tender Device Identifier Shelf Expiration Date Model / Serial / Lot Port Pwr Mri Isp Profile - [id number] Implanted:Qty: 1 on 07/24/2020 by Akash Castillo MD at [facility] Right: Chest CR BARD : PERIPHERAL VASCULAR 04/12/2021 [id number] / / [id number] documented as of this encounter Advance Directives [...] Agents on File Name Relationship Healthcare Agent [facility] Communication Juanita Silva Adult Child Health Care Agent Care Teams Sawmilling Operator Relationship Specialty Start Date End Date Dhruv Moss MD [address] [place] [phone] PCP - General Family Medicine 08/27/21 documented as of this encounter
--- OUTSIDE RECORDS SUMMARY | 2024-10-10 00:37 | External Medical Summary | Summary of Care ---
Author Name Unknown Organization [facility] Address [address] [facility] [address] Phone [phone] Care Team Providers Care Cheese Sprayer Name Role Phone Dhruv Moss MD Primary Care Provide r Reason for Visit * Reason Onset Date Comments Other 07/17/2024 Platelets Encounter Details Date Type Department Care Team (Late st Contact Info) Description 07/17/2024 Telephone Hematology/Oncology [facility] [address] [place] [address] Jitendra Aguero MD [address] [place] [address] Other (Platelets) Allergies No known active allergiesdocumented [...] day DXe11.9 300 Each 3 12/16/2021 Active [employer] PeopleTouch Verio Flex System w/Device Kit Use as [...] 8.0% ([facility]) TAKE 1 TABLET BY MOUTH TWICE DAILY [...] morning. 30 mL 3 04/05/2024 Active Pen [place] 32G X 4 MM Use as directed. [...] 24 Hour (Imdur)Indications:C oronary artery disease involving [place] coronary artery of [place] heart without angina pectoris,HTN, goal below 140/90 [...] 3553 0000 2079 7075 732 / DID: [id number] Matched Unrelated 10/24--- DPB1 Match ABO/Rh: A [...] Thrombocytopenia 12/06/2022 Last Assessment & Plan: Platelets 31260 on 03/20 Questionable hematuria Urinary incontinence 09/12/2022 [...] failure. Does not have any evidence of laqmq-lrnnrn-ehvs disease Last Assessment & Plan: Continues to [...] -continue venlafaxine Coronary artery disease invo lving [place] coronary artery of [place] heart without angina pectoris 06/12/2017 Overview: S/P EDIL to LAD on 06/12/17 Last Assessment & Plan: No angina - Continue atorvastatin, isosorbide, metoprolol - no ASA due to thrombocytopenia Dyslipidemia, goal LDL below 70 11/25/2011 Last Assessment & Plan: Patient having no issues. She continues on Lipitor 40 mg daily Last lab I will was that I can find were from [phone] Assessment/plan: Dyslipidemia with patient currently taking Lipitor [...] Encounter - Makenzie Barth LPN - 07/17/2024 12:59 PM EDT Patient to receive 1 unit platelets. Called [facility] blood bank. Spoke with Oskar. Spoke with Margoth at [facility]. Called [facility] central scheduling. Patient scheduled for 07/18/2024 at 10:00 am. Patient's daughter verbalized understanding of appt time. Faxed order to [facility]/ blood bank. * Telephone Encounter - Makenzie [...] Offering patient a transfusion time today at [facility] at 2:30 pm for 1 unit of [...] to transfuse 1 unit of Platelet at [facility] No need for blood transfusion at this time. Repeat CBCD every weekly as we planned earlier. documented in this encounter Plan of Treatment Upcoming Encounters Date Type Department Care Team (Late st Contact Info) Description 07/22/2024 11:30 AM EDT Telemedicine Pharmacy, [address] [place] [address] [place] [address] 07/24/2024 7:10 AM EDT Laboratory Lab Mobile Ph[facility]botomy [place] [id number] [place] [address] [facility] [address] [facility] [place], [place] [address] 07/31/2024 7:10 AM EDT Laboratory Lab [facility] [address] [facility] [address] [place], [place] [address] [facility] [address] [facility] [place], [place] [address] 08/07/2024 7:10 AM EDT Laboratory Lab [facility] Phlebot[facility] [address] [facility] [address] [place], [place] [address] [facility] [address] [facility] [address] [place], [place] [address] 08/13/2024 8:30 AM EDT Home Visit [facility] [place], [facility] [address] [place] [address] Marisa Pacheco RN [address] [place] [address] 08/27/2024 1:00 PM EDT Office Visit Pharmacy, [address] [place] [address] [place] [address] 08/28/2024 1:45 PM EDT Office Visit Ophthalmology, [facility] [address] [place] [address] Fernando Damon, [address] [place] [address] 10/16/2024 1:45 PM EST Office Visit Hematology/Oncology [facility] [address] [place] [address] [place] [phone] Jitendra Aguero MD [address] [place] [address] 12/24/2024 2:30 PM EST Nurse Only Ancillary [address] [place] [address] Cristina, Nurse [facility] [address] [place] [address] [place] [address] 01/13/2025 11:40 AM EST Office Visit Family Medicine [address] [place] [phone] Dhruv Moss MD [address] [place] [address] [place] [address] 07/21/2025 1:30 PM EDT Imaging Radiology [address] [place] [address] 08/04/2025 1:20 PM EDT Office Visit [address] [place] [address] Dhruv Moss MD [address] [place] [address] [place] [address] Health Maintenance Due Date Last Done Comments [...] D LEVEL ONCE IN A LIFETIME-USE SMARTSET# [id number] Completed 05/11/2015 RETIRED - COLONOSCOPY-EVERY 5 YRS [...] this encounter Medical Devices Implanted Type Area Security Team Lead Device Identifier Shelf Expiration Date Model / Serial / Lot Port Pwr Mri Isp Profile - [id number] Implanted:Qty: 1 on 07/24/2020 by Akash Castillo MD at [facility] Right: Chest CR BARD : PERIPHERAL VASCULAR 04/12/2021 [id number] / / [id number] documented as of this encounter Advance Directives [...] Agents on File Name Relationship Healthcare Agent [facility] Communication Juanita Silva Adult Child Health Care Agent Care Teams Cheese Sprayer Relationship Specialty Start Date End Date Dhruv Moss MD [address] [place] [id number] PCP - General Family Medicine 08/27/21 documented as of this encounter
--- OUTSIDE RECORDS SUMMARY | 2024-10-10 00:38 | External Medical Summary | Summary of Care ---
Author Name Unknown Organization [facility] Address [address] [facility] [address] Phone [phone] Care Team Providers Care Medical Physics Researcher Name Role Phone Dhruv Moss MD Primary Care Provide r Reason for Visit * Reason Comments Follow Up * Evaluate & Treat - Unlimited Visits (Within 10 days (routine)) - Authorized Specialty Diagnoses / Procedures Referred By Vern ayala Referred To Contact Ophthalmology Diagnoses Type 2 diabetes mellitus with hemoglobin A1c goal of less than 8.0% ([facility]) Abby Bennett [address] [place] [address] Referral ID Status Reason Start Date Expiration Date Visits Requested Visits Authorized [id number] Authorized Specialty Services Required 07/02/[phone] Encounter Details Date Type Department Care Team (Late st Contact Info) Description 07/17/2024 9:00 AM EDT Office Visit Ophthalmology, [facility] [address] [place] [address] Fernando Damon, [address] [place] [address] 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 30 mL 04/05/2024 Active Pen [place] 32G X 4 MM Use as directed. Use to inject insulin up to 4 times daily. 400 Each 04/05/2024 Active Atorvastatin Calcium 40 MG Oral [...] 24 Hour (Imdur)Indications:C oronary artery disease involving [place] coronary artery of [place] heart without angina pectoris,HTN, goal below 140/90 [...] syndrome), high grade (HCC),Stem cells transplant status ([facility]),Acquired hypothyroidism 1000 mL IV DAILY [...] 3553 0000 2079 [id number] 732 / DID: [id number] Matched Unrelated 10/24--- DPB1 Match ABO/Rh: A [...] Thrombocytopenia 12/06/2022 Last Assessment & Plan: Platelets 05764 on 03/20 Questionable hematuria Urinary incontinence 09/12/2022 [...] failure. Does not have any evidence of mflhf-qfzjnd-jizw disease Last Assessment & Plan: Continues to [...] -continue venlafaxine Coronary artery disease invo lving [place] coronary artery of [place] heart without angina pectoris 06/12/2017 Overview: S/P EDIL to LAD on 06/12/17 Last Assessment & Plan: No angina - Continue atorvastatin, isosorbide, metoprolol - no ASA due to thrombocytopenia Dyslipidemia, goal LDL below 70 11/25/2011 Last Assessment & Plan: Patient having no issues. She continues on Lipitor 40 mg daily Last lab I will was that I can find were from [phone] Assessment/plan: Dyslipidemia with patient currently taking Lipitor [...] mRNA, LNP-s, No Pre serve, 2-Dose Series (X5 Group) 02/05/2021,01/08/2021 COVID-19, LNP-s, No Preserve , [...] encounter Progress Notes * Fernando Damon, - 07/17/2024 9:00 AM EDT [facility] [place] Nursing Notes: Gege Blakely RN 07/17/24 [address] Paulson in past-now to follow with Dr. Damon Patient's name preference, 'Ruth'. Patient currently states "can not see anything out of left ey-is just a black blob and right eye getting bad-blurry and can not see few feet in front of me" Pt. Reports H/O Herpes virus recurrent OS-last occurrence a year ago" Have you ever had any major surgery of serious injury of or around the eyes- no Are you diabetic? Yes. Do you check your blood sugars daily? YES. Fasting BS this mornin mg/dl. Last Hemoglobin A1C: Lab Results Component Value Date/Time HGBA1C 6.5 (H) 05/22/2024 08:27 AM HGBA1C 7.6 (H) 11/20/2023 01:19 PM HGBA1C 8.0 (H) 12/06/2022 12:02 PM HGBA1C 6.1 (H) 10/01/2020 03:24 PM HGBA1C 8.1 (H) 02/05/2020 10:48 AM HGBA1C 7.9 (H) 10/28/2019 12:42 PM FAMILY HISTORY: Family History Problem Relation Name Age of Onset Diabetes Mother Heart Disorder Mother 69 [place] Heart Disorder Father 56 [place]; CHF Diabetes Father Heart disease Brother Martha 73 [place] Diabetes Sister Hailey Diabetes Sister Judy Diabetes Sister Jessa Alcohol and Other Disorders Associated Brother Edouard Heart Disorder Brother Wenceslao 59 [place] Diabetes Sister Agnus Cancer Sister Zelda multiple myeloma Cancer Sister Karen breast Breast Cancer Sister Karen Alzheimer's disease Sister Karen Blood Disorder Brother ?missing factors from blood No Past Hx Daughter No Past Hx Son Eye Problems No significant family history Denies family hx Glaucoma No significant family history Denies family hx SOCIAL HISTORY: Social History Tobacco Use Smoking status: Never Smokeless tobacco: Never Vaping Use Vaping status: Never Used Substance Use Topics Alcohol use: No Drug use: No PMH: Past Medical History: Diagnosis Date Hager's palsy [...] without presence of risk factors 04/18/2017 negative Patient Active Problem List Diagnosis Acquired hypothyroidism Generalized osteoarthritis of multiple sites Type 2 diabetes mellitus with hemoglobin A1c goal of less than 8.0% (HCC) Dyslipidemia, goal LDL below 70 HTN, goal below 140/90 Coronary artery disease involving [place] coronary artery of [place] heart without angina pectoris Insulin-requiring or dependent type II diabetes mellitus (HCC) Recurrent major depressive disorder, in partial remission (HCC) Microalbuminuria due to type 2 diabetes mellitus (HCC) MDS (myelodysplastic syndrome), high grade (HCC) Iron overload, transfusional Gastro-esophageal reflux disease without esophagitis Stem cells transplant status (HCC) Hypomagnesemia H/O allogeneic bone marrow transplant (HCC) Dehydration Neuropathy due to chemotherapeutic drug (HCC) Type 2 diabetes mellitus with 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 no OCT image(s) of both eyes acquired and filed/scanned into chart. Base Eye Exam Visual Acuity (Snellen - Linear) Right Left Dist cc 20/100 -1 HMO Dist ph cc NI NI Correction: Glasses Tonometry (Tonopen, 9:15 AM) Right Left Pressure 14 12 Pupils Dark Light Shape React APD Right 5.5 5.5 Round Minimal None Left 6 6 Round Minimal None Visual Javier (Counting fingers) Right Left Full Restrictions Total superior temporal, inferior temporal, superior nasal, inferior nasal deficiencies Extraocular Movement Right Left Full, Ortho Full, Ortho Neuro/Psych Oriented x3: Yes Mood/Affect: Normal Dilation Both eyes: 0.5% Proparacaine @ 9:14 AM Dilation #2 Both eyes: 1.0% Mydriacyl, 2.5% Phenylephrine @ 9:14 AM Dilation #3 Both eyes: 1.0% Mydriacyl, 2.5% Phenylephrine @ 9:16 AM Dilation Comments Patient cautioned that effects [...] ma x 4 quads OCT Interpretation: OD: +irf/srf--worse OS: unable A/P: 1. Moderate Nonproliferative Diabetic Retinopathy OU -h/o Avastin in past by Dr. Paulson -recommend HgbA1C <7, BP and lipid control. -DME OU -Avastin OU 07/17/2024 2. h/o CRVO OS -An examination for this condition was completed which is unrelated to the procedure that was performed today -monitor 3. h/o HSV OS -seen in past by Dr. Martínez -poor vision OS -on acyclovir prophylaxis 4. Cataracts OU -monitor F/u 4-6 weeks, OCT OU; WF OU Fernando Damon DO CC: PCP: Dhruv Moss MD TIMEOUT [...] documented in this encounter Nursing Notes * Gege Blakely RN - 07/17/2024 9:50 AM EDT Ruth Burger to receive first Avastin 1.25mg Injection of the Right eye. Correct eye confirmed with patient and marked by Fernando Damon DO Avastin 1.25mg lot # [id number] Exp. Date: 08/05/24 Ruth Burger to receive fourth Avastin 1.25mg Injection of the Left eye. Correct eye confirmed with patient and marked by Fernando Damon DO Avastin 1.25mg lot # [id number] Exp. Date: 08/10/2025 * Gege Blakely RN - 07/17/2024 9:05 AM EDT Seen by Dr. Paulson in past-now to follow with Dr. Damon Patient's name preference, 'Ruth'. Patient currently states "can not see anything out of left ey-is just a black blob and right eye getting bad-blurry and can not see few feet in front of me" Pt. Reports H/O Herpes virus recurrent OS-last occurrence a year ago" Have you ever had any major surgery of serious injury of or around the eyes- no Are you diabetic? Yes. Do you check your blood sugars daily? YES. Fasting BS this mornin mg/dl. Last Hemoglobin A1C: Lab Results Component Value Date/Time HGBA1C 6.5 (H) 05/22/2024 08:27 AM HGBA1C 7.6 (H) 11/20/2023 01:19 PM HGBA1C 8.0 (H) 12/06/2022 12:02 PM HGBA1C 6.1 (H) 10/01/2020 03:24 PM HGBA1C 8.1 (H) 02/05/2020 10:48 AM HGBA1C 7.9 (H) 10/28/2019 12:42 PM FAMILY HISTORY: Family History Problem Relation Name Age of Onset Diabetes Mother Heart Disorder Mother 69 [place] Heart Disorder Father 56 [place]; CHF Diabetes Father Heart disease Brother Martha 73 [place] Diabetes Sister Hailey Diabetes Sister Judy Diabetes Sister Jessa Alcohol and Other Disorders Associated Brother Edouard Heart Disorder Brother Wenceslao 59 [place] Diabetes Sister Agnus Cancer Sister Zelda multiple myeloma Cancer Sister Karen breast Breast Cancer Sister Karen Alzheimer's disease Sister Karen Blood Disorder Brother ?missing factors from blood No Past Hx Daughter No Past Hx Son Eye Problems No significant family history Denies family hx Glaucoma No significant family history Denies family hx SOCIAL HISTORY: Social History Tobacco Use Smoking status: Never Smokeless tobacco: Never Vaping Use Vaping status: Never Used Substance Use Topics Alcohol use: No Drug use: No PMH: Past Medical History: Diagnosis Date Hager's palsy Carpal tunnel syndrome Depressive disorder, not elsewhere classified DM type 2, goal A1c below 7 Encounter for hepatitis C screening test for low risk patient 04/18/2017 negative for B and C. Essential hypertension with goal blood pressure less than 140/90 Geniculate herpes zoster adriensarah evanst History of immunosuppression therapy 04/19/2022 Hyperlipidemia LDL goal < 100 Migraine S/P primary angioplasty with coronary stent 06/12/2017 EIDL to LAD on 06/12/17 Screening for HIV without presence of risk factors 04/18/2017 negative Patient Active Problem List Diagnosis Acquired hypothyroidism Generalized osteoarthritis of multiple sites Type 2 diabetes mellitus with hemoglobin A1c goal of less than 8.0% (HCC) Dyslipidemia, goal LDL below 70 HTN, goal below 140/90 Coronary artery disease involving [place] coronary artery of [place] heart without angina pectoris Insulin-requiring or dependent type II diabetes mellitus (HCC) Recurrent major depressive disorder, in partial remission (HCC) Microalbuminuria due to type 2 diabetes mellitus (HCC) MDS (myelodysplastic syndrome), high grade (HCC) Iron overload, transfusional Gastro-esophageal reflux disease without esophagitis Stem cells transplant status (HCC) Hypomagnesemia H/O allogeneic bone marrow transplant (HCC) Dehydration Neuropathy due to chemotherapeutic drug (HCC) Type 2 diabetes mellitus with 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 no OCT image(s) of both eyes acquired and filed/scanned into chart. documented in this encounter Plan of Treatment Upcoming Encounters Date Type Department Care Team (Late st Contact Info) Description 07/22/2024 11:30 AM EDT Telemedicine Pharmacy, [address] [place] [address] [place] [address] 07/24/2024 7:10 AM EDT Laboratory Lab [facility] [address] [place] [address] [facility] [address] [place] [address] 07/31/2024 7:10 AM EDT [facility] [address] [place] [address] [facility] [address] [place] [address] 08/07/2024 7:10 AM EDT Laboratory [facility] [address] [place] [address] [facility] [address] [place] [address] 08/13/2024 8:30 AM EDT [facility] Visit [facility] [place], [facility] [address] [place] [address] Marisa Pacheco RN [address] [place] [address] 08/27/2024 1:00 PM EDT Office Visit Pharmacy, [address] [place] [address] [place] [address] 10/16/2024 1:45 PM EST Office Visit Hematology/Oncology [facility] [address] [facility] [phone] Jitendra Aguero MD [address] [facility] [place] [address] 12/24/2024 2:30 PM EST Nurse Only Ancillary [address] [place] [address] [place], Nurse [address] [place] [address] 01/13/2025 11:40 AM EST Office Visit Family Medicine [address] [place] [phone] Dhruv Moss MD [address] [place] [address] [place] [address] 07/21/2025 1:30 PM EDT Imaging Radiology [address] [place] [address] 08/04/2025 1:20 PM EDT Office Visit Family [address] [place] [phone] Dhruv Moss MD [address] [place] [address] [place] [address] Scheduled Orders Name Type Priority Associated Diagnoses Orde r Schedule RETINA SCAN DIAGNOSTIC IMAGE, POSTERIOR Procedures Routine 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, unspecified whether ferry terminal supervisor insulin use (HCC) Ordered: 07/17/2024 Health Maintenance Due Date Last Done Comments [...] D LEVEL ONCE IN A LIFETIME-USE SMARTSET# [id number] Completed 05/11/2015 RETIRED - COLONOSCOPY-EVERY 5 YRS [...] this encounter Medical Devices Implanted Type Area Shipper Device Identifier Shelf Expiration Date Model / Serial / Lot Port Pwr Mri Isp Profile - [id number] Implanted:Qty: 1 on 07/24/2020 by Akash Castillo MD at OR [facility] Right: Chest CR BARD : PERIPHERAL VASCULAR 04/12/2021 [id number] / / [id number] documented as of this encounter Visit Diagnoses Diagnosis 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, unspecified whether ferry terminal supervisor insulin use (HCC)- Primary Encounter for diabetes type 2 eye exam (HCC) Type II or unspecified type diabetes mellitus without mention of complication, not stated as uncontrolled Screening mammogram for breast cancer documented in this encounter Administered Medications Active Administered Medications - up to 3 most recent administrations Medication Order MAR Action Action Date Dose Rate Site bevaCIZumab (Avastin) inj 1.25 mg 1.25 mg, Intravitreal, PRN Other, Starting on Mon07/17/24 at 0959, Until Juanita 07/17/25 at 0958, For 365 days Given 07/17/2024 10:18 AM EDT 1.25 mg Eye Left Given 07/17/2024 10:17 AM EDT 1.25 mg E ye Right ROPivacaine (Naropin) inj 1.5 mg 1.5 mg, Perineural, PRN Other, Starting on Mon07/17/24 at 0959, Until Juanita 07/17/25 at 0958, For 365 days Given 07/17/2024 10:18 AM EDT 1.5 mg Eye Left Given 07/17/2024 10:17 AM EDT 1.5 mg E ye Right documented in this encounter Advance Directives * [...] File Name Relationship [facility] Communication Juanita Silva Adult Child Health Care Agent Care Teams Medical Physics Researcher Relationship Specialty Start Date End Date Dhruv Moss MD [address] [place] [id number] PCP - General Family Medicine 08/27/21 documented as of this encounter
--- OUTSIDE RECORDS SUMMARY | 2024-10-10 00:38 | External Medical Summary | Summary of Care ---
Author Name Unknown Organization [facility] Address [address] [facility] [address] Phone [phone] Care Team Providers Care Isotope Technician Name Role Phone Dhruv Moss MD Primary Care Provide r Reason for Visit * Reason Comments Follow Up * Evaluate & Treat - Unlimited Visits (Within 10 days (routine)) - Authorized Specialty Diagnoses / Procedures Referred By Vern ayala Referred To Contact Ophthalmology Diagnoses Type 2 diabetes mellitus with hemoglobin A1c goal of less than 8.0% ([facility]) Abby Bennett [address] [place] [address] Referral ID Status Reason Start Date Expiration Date Visits Requested Visits Authorized [id number] Authorized Specialty Services Required 07/02/[phone] Encounter Details Date Type Department Care Team (Late st Contact Info) Description 07/17/2024 9:00 AM EDT Office Visit Ophthalmology, [facility] [address] [place] [address] Fernando Damon, [address] [place] [address] 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 30 mL 04/05/2024 Active Pen [place] 32G X 4 MM Use as directed. 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 Does not have any evidence of fzwxp-vuebmo-nnze disease Last Assessment & Plan: Continues to [...] -continue venlafaxine Coronary artery disease invo lving [place] coronary artery of [place] heart without angina pectoris 06/12/2017 Overview: S/P EDIL to LAD on 06/12/17 Last Assessment & Plan: No angina - Continue atorvastatin, isosorbide, metoprolol - no ASA due to thrombocytopenia Dyslipidemia, goal LDL below 70 11/25/2011 Last Assessment & Plan: Patient having no issues. She continues on Lipitor 40 mg daily Last lab I will was that I can find were from [phone] Assessment/plan: Dyslipidemia with patient currently taking Lipitor [...] mRNA, LNP-s, No Pre serve, 2-Dose Series (Diagnoplex) 02/05/2021,01/08/2021 COVID-19, LNP-s, No Preserve , Ye-sucrose, [...] Fernando Damon, - 07/17/2024 9:00 AM EDT [facility] [place] Nursing Notes: Gege Blakely RN 07/17/24 09[address] Paulson in past-now [...] Onset Diabetes Mother Heart Disorder Mother 69 [place] Heart Disorder Father 56 [place]; CHF Diabetes Father Heart disease Brother Martha 73 [place] Diabetes Sister Hailey Diabetes Sister Judy Diabetes Sister Jessa Alcohol and Other Disorders Associated Brother Edouard Heart Disorder Brother Wenceslao 59 [place] Diabetes Sister Agnus Cancer Sister Zelda multiple [...] goal below 140/90 Coronary artery disease involving [place] coronary artery of [place] heart without angina pectoris Insulin-requiring or dependent [...] Fernando Damon DO Avastin 1.25mg lot # [id number] Exp. Date: 08/05/24 Ruth Burger to receive fourth Avastin 1.25mg Injection of the Left eye. Correct eye confirmed with patient and marked by Fernando Damon DO Avastin 1.25mg lot # [id number] Exp. Date: 08/10/2025 * Gege Blakely RN [...] Onset Diabetes Mother Heart Disorder Mother 69 [place] Heart Disorder Father 56 [place]; CHF Diabetes Father Heart disease Brother Martha 73 [place] Diabetes Sister Hailey Diabetes Sister Judy Diabetes Sister Jessa Alcohol and Other Disorders Associated Brother Edouard Heart Disorder Brother Wenceslao 59 [place] Diabetes Sister Agnus Cancer Sister Zelda multiple [...] goal below 140/90 Coronary artery disease involving [place] coronary artery of [place] heart without angina pectoris Insulin-requiring or dependent [...] Description 07/22/2024 11:30 AM EDT Telemedicine Pharmacy, [address] [place] [address] [place] [address] 07/24/2024 7:10 AM EDT Laboratory Lab [facility] [address] [place] [address] [facility] [address] [place] [address] 07/31/2024 7:10 AM EDT Laboratory Lab [facility]bot[facility] [address] [place] [address] [facility] [address] [place] [address] 08/07/2024 7:10 AM EDT Laboratory Lab [facility]bot[facility] [address] [place] [address] [facility] Draw [address] [place] [address] 08/13/2024 8:30 AM EDT [facility] Visit [facility] [place], [facility] [address] [place] [address] Marisa Pacheco RN [address] [place] [address] 08/27/2024 1:00 PM EDT Office Visit Pharmacy, [address] [place] [address] [place] [address] 10/16/2024 1:45 PM EST Office Visit Hematology/Oncology [facility] [place] [phone] Jitendra Aguero MD [address] [facility] [place] [address] 12/24/2024 2:30 PM EST Nurse Only Ancillary [address] [place] [address] [place], Nurse [address] [place] [address] 01/13/2025 11:40 AM EST Office Visit Family Medicine [address] [place] [phone] Dhruv Moss MD [address] [place] [address] [place] [address] 07/21/2025 1:30 PM EDT Imaging Radiology [address] [place] [address] 08/04/2025 1:20 PM EDT Office Visit Family [address] [place] [phone] Dhruv Moss MD [address] [place] [address] [place] [address] Scheduled Orders Name Type Priority Associated Diagnoses Orde r Schedule RETINA SCAN DIAGNOSTIC IMAGE, POSTERIOR Procedures Routine 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, unspecified whether watcher automat long goods insulin use (HCC) Ordered: 07/17/2024 Health Maintenance [...] D LEVEL ONCE IN A LIFETIME-USE SMARTSET# [id number] Completed 05/11/2015 RETIRED - COLONOSCOPY-EVERY 5 YRS [...] encounter Medical Devices Implanted Type Area Manager Business Operations Device Identifier Shelf Expiration Date Model / Serial / Lot Port Pwr Mri Isp Profile - [id number] Implanted:Qty: 1 on 07/24/2020 by Akash Castillo MD at OR [facility] Right: Chest CR BARD : PERIPHERAL VASCULAR 04/12/2021 [id number] / / [id number] documented as of this encounter Visit Diagnoses Diagnosis 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
--- OUTSIDE RECORDS SUMMARY | 2024-10-10 00:38 | External Medical Summary | Summary of Care ---
Author Name Unknown Organization [facility] Address [address] [facility] [place] [address] Phone [phone] Care Team Providers Care Principal Systems Architect Name Role Phone Dhruv Moss MD Primary Care Provide r Reason for Visit * Reason Onset Date Comments Pre Cert/Prior Auth 07/17/2024 Encounter Details Date Type Department Care Team (Late st Contact Info) Description 07/17/2024 Telephone Ophthalmology, [facility] [address] [place] [address] Fernando Damon DO [address] [place] [address] Pre Cert/Prior Auth Allergies No known active allergiesdocumented as of [...] day DXe11.9 300 Each 3 12/16/2021 Active ZetaRx BiosciencesTouch Verio Flex System w/Device Kit Use as [...] less than 8.0% ([facility]) TAKE 1 TABLET BY MOUTH TWICE DAILY [...] morning. 30 mL 3 04/05/2024 Active Pen [place] 32G X 4 MM Use as directed. [...] 24 Hour (Imdur)Indications:C oronary artery disease involving [place] coronary artery of [place] heart without angina pectoris,HTN, goal below 140/90 [...] 1000 mL IV DAILY PRN 12/08/2021 Active documented as of this encounter (statuses as of 07/17/2024) Active Problems Patient Care Coordination No te Formatting of this note migh t be different from the original. Date of Transplant: 09/01/2021 Conditioning Regimen: Fludarabine / Busulfan 2 with post-transplant Cytoxan ABO/Rh: A Positive CMV status: CMV Positive--- GRID: [id number] 2079 7075 732 / DID: [id number] Matched Unrelated 10/24--- DPB1 Match ABO/Rh: A [...] Thrombocytopenia 12/06/2022 Last Assessment & Plan: Platelets 55005 on 03/20 Questionable hematuria Urinary incontinence 09/12/2022 [...] failure. Does not have any evidence of uiixd-yizute-kupu disease Last Assessment & Plan: Continues to [...] -continue venlafaxine Coronary artery disease invo lving [place] coronary artery of [place] heart without angina pectoris 06/12/2017 Overview: S/P EDIL to LAD on 06/12/17 Last Assessment & Plan: No angina - Continue atorvastatin, isosorbide, metoprolol - no ASA due to thrombocytopenia Dyslipidemia, goal LDL below 70 11/25/2011 Last Assessment & Plan: Patient having no issues. She continues on Lipitor 40 mg daily Last lab I will was that I can find were from [id number] Assessment/plan: Dyslipidemia with patient currently taking Lipitor [...] agreement signed 03/04/2024 03/04/2024 Candidiasis, esophageal 03/10/2022 0712/2021 Last Assessment & Plan: The patient has [...] No 12/22/2023 Does the household have a [facility] source of income? (Household - for [...] encounter Miscellaneous Notes * Telephone Encounter - Gege Blakely RN - 07/17/2024 9:44 AM EDT New Medication Insurance: [facility] Provider: Fernando Damon DO Tax ID: [id number] Office Address: [address] [place] [address] [place] [address] Office Office Drug Name/CPT: Avastin ICD 10: E11.3313 Dosage: 2.75mg/0.11ml Eye Treated: Both eyes Frequency: Q 4-6 weeks Prior Eye medications received: Avastin, Eylea Specialty Pharmacy/Buy and bill? Office stock documented in this encounter Plan of Treatment Upcoming Encounters Date Type Department Care Team (Late st Contact Info) Description 07/22/2024 11:30 AM EDT Telemedicine Pharmacy, [address] [place] [address] [place] [address] 07/24/2024 7:10 AM EDT Laboratory Lab [facility] [address] [employer] [place] [address] [facility], [facility] Draw [address] [place] [address] 07/31/2024 7:10 AM EDT Laboratory [facility] [address] [place] [address] [facility], [facility] Draw [address] [facility] [place] [address] 08/07/2024 7:10 AM EDT Laboratory Lab [facility] Phlebotomy [facility] [address] [place] [address] M[facility], Gml Mobile Home Draw [address] [place] [address] 08/13/2024 8:30 AM EDT [facility] Visit [facility] [place] [place] [address] Marisa Pacheco RN [address] [place] [address] 08/27/2024 1:00 PM EDT Office Visit Pharmacy, [address] [place] [address] [place] [address] 10/16/2024 1:45 PM EST Office Visit Hematology/Oncology [facility] [address] [facility] [place] [phone] Jitendra Aguero MD [address] [place] [address] 12/24/2024 2:30 PM EST Nurse Only Ancillary [address] [place] [address] Cristina, Nurse [address] [place] [address] 01/13/2025 11:40 AM EST Office Visit [address] [place] [address] Dhruv Moss MD [address] [place] [address] [place] [address] 07/21/2025 1:30 PM EDT Imaging Radiology [address] [place] [address] 08/04/2025 1:20 PM EDT Office Visit [address] [place] [address] Dhruv Moss MD [address] [place] [address] [place] [address] Health Maintenance Due Date Last Done Comments [...] 06/13/2025 06/13/2023, 11/2022, 03/16/2015 GFR 06/26/2025 06/26/2024, 0402/2024, 01/24/2024, Additional history exists Diabetic Foot Exam 07/02/2025 07/02/2024, 0 06/05/2023, 06/03/2022, Additional history exists Diabetic Eye Exam 07/17/2025 07/17/2024, , 07/17/2024, Additional history exists DTap/Tdap Vaccines (3 - Td or Tdap) 11/10/2026 11/10/2016, 03/30/2011 VITAMIN D LEVEL ONCE IN A LIFETIME-USE SMARTSET# [id number] Completed 05/11/2015 RETIRED - COLONOSCOPY-EVERY 5 YRS [...] this encounter Medical Devices Implanted Type Area Net Front End Developer Device Identifier Shelf Expiration Date Model / Serial / Lot Port Pwr Mri Isp Profile - [id number] Implanted:Qty: 1 on 07/24/2020 by Akash Castillo MD at 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
--- OUTSIDE RECORDS SUMMARY | 2024-10-10 00:38 | External Medical Summary ---
Author Name Unknown Address Unknown Organization K0G:[facility] [address] [place] [address] Laboratory Report Ordering Provider Test Date Status ANN MUNGUIA 07/17/2024 10:18:23 Final Observation Date Value Abnormality Reference (Units ) Status SYNC LEUKOCYTES IN BLOOD BY AUTOMATED COUNT 07/17/2024 10:18:23 19.41 Above high normal 4.00-10.80 (K/uL) Final Neutrophils/100 leukocytes in Blood by Manual count 07/17/2024 10:18:23 59.0 40.0-75.0 (%) Final Lymphocytes/100 leukocytes in Blood by Manual count 07/17/2024 10:18:23 21.0 18.0-42.0 (%) Final Monocytes/100 leukocytes in Blood by Manual count 07/17/2024 10:18:23 5.0 1.0-11.0 (%) Final Eosinophils/100 leukocytes in Blood by Manual count 07/17/2024 10:18:23 1.0 0.0-6.0 (%) Final Metamyelocytes/100 leukocytes in Blood by Manual count 07/17/2024 10:18:23 6.0 Above high normal <=0.0 (%) Final Myelocytes/100 leukocytes in Blood by Manual count 07/17/2024 10:18:23 3.0 Above high normal <=0.0 (%) Final Blasts/100 leukocytes in Blood by Manual count 07/17/2024 10:18:23 5.0 Above high normal <=0.0 (%) Final Consistent with previous res ults.
null Neutrophils [#/volume] in Blood by Manual count 07/17/2024 10:18:23 11.45 Above high normal 1.80-7.70 (K/uL) Final Lymphocytes [#/volume] in Blood by Manual count 07/17/2024 10:18:23 4.08 1.00-4.80 (K/uL) Final Monocytes [#/volume] in Blood by Manual count 07/17/2024 10:18:23 0.97 0.00-1.10 (K/uL) Final Eosinophils [#/volume] in Blood by Manual count 07/17/2024 10:18:23 0.19 0.00-0.70 (K/uL) Final Metamyelocytes [#/volume] in Blood by Manual count 07/17/2024 10:18:23 1.16 Above high normal <=0.00 (K/uL) Final Myelocytes [#/volume] in Blood by Manual count 07/17/2024 10:18:23 0.58 Above high normal <=0.00 (K/uL) Final Blasts [#/volume] in Blood by Manual count 07/17/2024 10:18:23 0.97 Above high normal <=0.00 (K/uL) Final Nucleated erythrocytes/100 leukocytes [Ratio] in Blood by Automated count 07/17/2024 10:18:23 Final Neutrophils.agranular [Presence] in Blood by Light microscopy 07/17/2024 10:18:23 Present Abnormal None Seen Final Anish present. Variant lymphocytes [Presenc e] in Blood by Light microscopy 07/17/2024 10:18:23 Present Abnormal None Seen Final Performing Location [facility] [address] [facility] [address]
--- OUTSIDE RECORDS SUMMARY | 2024-10-10 00:38 | External Medical Summary | Summary of Care ---
Author Name Unknown Organization [facility] Address [address] [facility] [place] [address] Phone [phone] Care Team Providers Care Archivist Economic History Name Role Phone Dhruv Moss MD Primary Care Provide r Reason for Visit * Reason Onset Date Comments Precert Not Needed 07/17/2024 Encounter Details Date Type Department Care Team (Late st Contact Info) Description 07/17/2024 Telephone Ophthalmology, [facility] [address] [place] [address] Fernando Damon DO [address] [place] [address] Precert Not Needed Allergies No known active allergiesdocumented as of [...] for Nausea. 60 Tablet 3 12/09/2021 Active PearltreesTouch Delica Lancets 30GIndications:Type 2 diabetes mellitus with hemoglobin A1c goal of less than 8.0% ([facility]) Use to test blood sugar three times a day DXe11.9 300 Each 3 12/16/2021 Active PearltreesTouch Verio Flex System w/Device Kit Use as [...] less than 8.0% ([facility]) Inject 8 units with breakfast, [...] less than 8.0% ([facility]) TAKE 1 TABLET BY MOUTH [...] morning. 30 mL 3 04/05/2024 Active Pen [place] 32G X 4 MM Use as directed. [...] Hour (Imdur)Indications:C oronary artery disease involving [place] coronary artery of [place] heart without angina pectoris,HTN, goal below [...] 3553 0000 2079 7075 732 / DID: [id number] Matched Unrelated 10/24--- DPB1 Match ABO/Rh: A [...] Thrombocytopenia 12/06/2022 Last Assessment & Plan: Platelets 43833 on 03/20 Questionable hematuria Urinary incontinence 09/12/2022 [...] failure. Does not have any evidence of gborm-lkhhte-zdcd disease Last Assessment & Plan: Continues to [...] venlafaxine Coronary artery disease invo lving [place] coronary artery of [place] heart without angina pectoris 06/12/2017 Overview: S/P EDIL to LAD on 06/12/17 Last Assessment & Plan: No angina - Continue atorvastatin, isosorbide, metoprolol - no ASA due to thrombocytopenia Dyslipidemia, goal LDL below 70 11/25/2011 Last Assessment & Plan: Patient having no issues. She continues on Lipitor 40 mg daily Last lab I will was that I can find were from [phone] Assessment/plan: Dyslipidemia with patient currently taking Lipitor [...] 07/17/2024 9:44 AM EDT New Medication Insurance: [facility] Provider: Fernando Damon DO Tax ID: [id number] Office Address: [address] [place] [address] [place] [address] Office Office Drug Name/CPT: Avastin ICD 10: E11.3313 Dosage: 2.75mg/0.11ml Eye Treated: Both eyes Frequency: Q 4-6 weeks Prior Eye medications received: Avastin, Eylea Specialty Pharmacy/Buy and bill? Office stock documented in this encounter Plan of Treatment Upcoming Encounters Date Type Department Care Team (Late st Contact Info) Description 07/22/2024 11:30 AM EDT Telemedicine Pharmacy, [address] [place] [address] [place] [address] 07/24/2024 7:10 AM EDT Laboratory Lab Mobile Phlebotomy [facility] [address] [place] [address] M[facility], Gml Mobile Home Draw [address] [place] [address] 07/31/2024 7:10 AM EDT Laboratory Lab Mobile Phlebotomy [facility] [address] [place] [address] Mvmg, Gml Mobile Home Draw [address] [place] [address] 08/07/2024 7:10 AM EDT Laboratory Lab [facility] Phlebot[facility] [address] [place] [address] Mvmg, Gml Mobile Home Draw [address] [place] [address] 08/13/2024 8:30 AM EDT [facility] Visit [facility] [place], [facility] [place] [address] Marisa Pacheco RN [address] [place] [address] 08/27/2024 1:00 PM EDT Office Visit Pharmacy, [address] [place] [address] [place] [address] 10/16/2024 1:45 PM EST Office Visit Hematology/Oncology [facility] [address] [place] [phone] Jitendra Aguero MD [address] [place] [address] 12/24/2024 2:30 PM EST Nurse Only Ancillary [address] [place] [address] Valentinoey, Nurse [address] [place] [address] 01/13/2025 11:40 AM EST Office Visit [address] [place] [address] Dhruv Moss MD [address] [place] [address] [place] [address] 07/21/2025 1:30 PM EDT Imaging Radiology [address] [place] [address] 08/04/2025 1:20 PM EDT Office Visit [address] [place] [address] Dhruv Moss MD [address] [place] [address] [place] [address] Health Maintenance Due Date Last Done Comments [...] D LEVEL ONCE IN A LIFETIME-USE SMARTSET# [id number] Completed 05/11/2015 RETIRED - COLONOSCOPY-EVERY 5 YRS [...] this encounter Medical Devices Implanted Type Area Teaching Associate Device Identifier Shelf Expiration Date Model / Serial / Lot Port Pwr Mri Isp Profile - [id number] Implanted:Qty: 1 on 07/24/2020 by Akash Castillo MD at [facility] Right: Chest CR BARD : PERIPHERAL VASCULAR 04/12/2021 [id number] / / [id number] documented as of this encounter Visit Diagnoses Diagnosis 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 p Communication [facility] Adult Child Health Care Agent Care Teams Archivist Economic History Relationship Specialty Start Date End Date Dhruv Moss MD [address] [place] [address] PCP - General Family Medicine 08/27/21 documented as of this encounter
--- OUTSIDE RECORDS SUMMARY | 2024-10-10 00:38 | External Medical Summary | Summary of Care ---
Author Name Unknown Organization [facility] Address [address] [facility] [place] [address] Phone [phone] Care Team Providers Care Test Conductor Name Role Phone Dhruv Moss MD Primary Care Provide r Reason for Visit * Reason Onset Date Comments Precert Not Needed 07/17/2024 Encounter Details Date Type Department Care Team (Late st Contact Info) Description 07/17/2024 Telephone Ophthalmology, [facility] [address] [place] [address] Fernando Damon DO [address] [place] [address] Precert Not Needed Allergies No known active [...] for Nausea. 60 Tablet 3 12/09/2021 Active EatTouch Delica Lancets 30GIndications:Type 2 diabetes mellitus with hemoglobin A1c goal of less than 8.0% ([facility]) Use to test blood sugar three times a day DXe11.9 300 Each 3 12/16/2021 Active EatTouch Verio Flex System w/Device Kit Use as [...] of less than 8.0% ([facility]) Inject 8 units with breakfast, 4 units [...] of less than 8.0% ([facility]) TAKE 1 TABLET BY MOUTH TWICE DAILY [...] morning. 30 mL 3 04/05/2024 Active Pen Whiteside 32G X 4 MM Use as directed. [...] 3553 0000 2079 7075 732 / DID: [id number] Matched Unrelated 10/24--- DPB1 Match ABO/Rh: A [...] Thrombocytopenia 12/06/2022 Last Assessment & Plan: Platelets 58202 on 03/20 Questionable hematuria Urinary incontinence 09/12/2022 [...] failure. Does not have any evidence of kqkmp-qyekmt-dted disease Last Assessment & Plan: Continues to [...] was that I can find were from [phone] Assessment/plan: Dyslipidemia with patient currently taking Lipitor [...] AM EDT New Medication Insurance: [facility] Provider: Fernando Damon DO Tax ID: [id number] Office Address: [address] [place] [address] [place] [address] Office Office Drug Name/CPT: Avastin ICD 10: E11.3313 Dosage: 2.75mg/0.11ml Eye Treated: Both eyes Frequency: Q 4-6 weeks Prior Eye medications received: Avastin, Eylea Specialty Pharmacy/Buy and bill? Office stock documented in this encounter Plan of Treatment Upcoming Encounters Date Type Department Care Team (Late st Contact Info) Description 07/22/2024 11:30 AM EDT Telemedicine Pharmacy, [address] [place] [address] [place] [address] 07/24/2024 7:10 AM EDT Laboratory Lab Mobile Phlebotomy [facility] [address] [place] [address] Mvmg, Gml Mobile Home Draw [address] [place] [address] 07/31/2024 7:10 AM EDT Laboratory Lab Mobile Phlebotomy [facility] [address] [place] [address] Mvmg, Gml Mobile Home Draw [address] [employer] [place] [address] 08/07/2024 7:10 AM EDT Laboratory Lab Mobile Phlebotomy [facility] [address] [employer] [place] [address] Mvmg, Gml Mobile Home Draw [address] [employer] [place] [address] 08/13/2024 8:30 AM EDT [facility] [place], [facility] [place] [address] Marisa Pacheco RN [address] [place] [address] 08/27/2024 1:00 PM EDT Office Visit Pharmacy, [address] [place] [address] [place] [address] 10/16/2024 1:45 PM EST Office Visit Hematology/Oncology [facility] [address] [place] [address] Jitendra Aguero MD [address] [place] [address] 12/24/2024 2:30 PM EST Nurse Only Ancillary [address] [place] [address] Valentinoey, Nurse [address] [place] [address] 01/13/2025 11:40 AM EST Office Visit [address] [place] [address] Dhruv Moss MD [address] [place] [address] [place] [address] 07/21/2025 1:30 PM EDT Imaging Radiology [address] [place] [address] 08/04/2025 1:20 PM EDT Office Visit [address] [place] [address] Dhruv Moss MD [address] [place] [address] [place] [address] Health Maintenance Due Date Last Done Comments [...] D LEVEL ONCE IN A LIFETIME-USE SMARTSET# [id number] Completed 05/11/2015 RETIRED - COLONOSCOPY-EVERY 5 YRS [...] this encounter Medical Devices Implanted Type Area Relations Coordinator Device Identifier Shelf Expiration Date Model / Serial / Lot Port Pwr Mri Isp Profile - [id number] Implanted:Qty: 1 on 07/24/2020 by Akash Castillo MD at [facility] Right: Chest CR BARD : PERIPHERAL VASCULAR 04/12/2021 [id number] / / [id number] documented as of this encounter Visit Diagnoses Diagnosis 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
--- OUTSIDE RECORDS SUMMARY | 2024-10-10 00:38 | External Medical Summary | Summary of Care ---
Author Name Unknown Organization [facility] Address [address] [facility] [place] [address] Phone [phone] Care Team Providers Care Mathematician Research Name Role Phone Dhruv Moss MD Primary Care Provide r Reason for Visit * Reason Comments Outpatient Testing Encounter Details Date Type Department Care Team (Late st Contact Info) Description 07/17/2024 10:10 AM EDT Laboratory Laboratory, [facility] [address] [facility] [address] [facility] [address] [facility] [address] MDS (myelodysplastic syndrome), high grade (HCC) Allergies [...] for Nausea. 60 Tablet 3 12/09/2021 Active TáximoTouch Delica Lancets 30GIndications:Type 2 diabetes mellitus with hemoglobin A1c goal of less than 8.0% ([facility]) Use to test blood sugar three times a day DXe11.9 300 Each 3 12/16/2021 Active Táximo[employer]ellow [employer] Verio Flex System w/Device Kit Use as [...] than 8.0% ([facility]) Inject 8 units with breakfast, [...] than 8.0% ([facility]) TAKE 1 TABLET BY MOUTH [...] morning. 30 mL 3 04/05/2024 Active Pen [place] 32G X 4 MM Use as directed. [...] Hour (Imdur)Indications:C oronary artery disease involving [place] coronary artery of [place] heart without angina pectoris,HTN, goal below 140/90 [...] eyes and macular edema, unspecified whether superintendent container terminal insulin use (HCC) 1.25 mg IZ [...] 3553 0000 2079 7075 732 / DID: [id number] Matched Unrelated 10/24--- DPB1 Match ABO/Rh: A [...] Thrombocytopenia 12/06/2022 Last Assessment & Plan: Platelets 61245 on 03/20 Questionable hematuria Urinary incontinence 09/12/2022 [...] failure. Does not have any evidence of hboea-prvrek-yocu disease Last Assessment & Plan: Continues to [...] venlafaxine Coronary artery disease invo lving [place]. cro[place] coronary artery of [place] heart without angina pectoris 06/12/2017 Overview: S/P EDIL to LAD on 06/12/17 Last Assessment & Plan: No angina - Continue atorvastatin, isosorbide, metoprolol - no ASA due to thrombocytopenia Dyslipidemia, goal LDL below 70 11/25/2011 Last Assessment & Plan: Patient having no issues. She continues on Lipitor 40 mg daily Last lab I will was that I can find were from [phone] Assessment/plan: Dyslipidemia with patient currently taking Lipitor [...] Description 07/22/2024 11:30 AM EDT Telemedicine Pharmacy, [address] [place] [address] [place] [address] 07/24/2024 7:10 AM EDT Laboratory Lab [facility] [address] [place] [address] [address] [address] [facility] [address] [employer] [place] [address] 07/31/2024 7:10 AM EDT Laboratory [facility] [address] [facility] [place] [address] [facility] [address] [facility] [place] [address] 08/07/2024 7:10 AM EDT Laboratory Lab [facility] [address] [facility] [place] [address] [facility] [address] [facility] [place] [address] 08/13/2024 8:30 AM EDT [facility], [facility] [place] [address] Marisa Pacheco RN [address] [facility] [place] [address] 08/27/2024 1:00 PM EDT Office Visit Pharmacy, [address] [place] [address] [place] [address] 08/28/2024 1:45 PM EDT Office Visit Ophthalmology, [facility] 132 [facility] [place] [address] Fernando Damon, [address] [facility] [place] [address] 10/16/2024 1:45 PM EST Office Visit Hematology/Oncology [facility] [address] [facility] [place] [id number] Jitendra Aguero MD [address] [place] [address] 12/24/2024 2:30 PM EST Nurse Only Ancillary [address] [place] [address] [place], Nurse [address] [place] [address] 01/13/2025 11:40 AM EST Office Visit [address] [place] [phone] Dhruv Moss MD [address] [place] [address] [place] [address] 07/21/2025 1:30 PM EDT Imaging Radiology [address] [place] [address] 08/04/2025 1:20 PM EDT Office Visit [address] [place] [address] Dhruv Moss MD [address] [place] [address] [place] [address] Pending Results Name Type Priority Associated Diagnoses Date /Time CBC WITH WBC DIFFERENTIAL Lab STAT MDS (myelodysplastic syndrome), high grade (HCC) 07/17/2024 10:18 AM EDT CBC Lab STAT MDS (myelodysplastic syndrome), high grade (HCC) 07/17/2024 10:18 AM EDT DIFFERENTIAL, AUTOMATED Lab STAT MDS (myelodysplastic syndrome), high grade (HCC) 07/17/2024 10:18 AM EDT Health Maintenance Due Date Last Done [...] D LEVEL ONCE IN A LIFETIME-USE SMARTSET# 87140 Completed 05/11/2015 RETIRED - COLONOSCOPY-EVERY 5 YRS [...] this encounter Medical Devices Implanted Type Area Flight Attendant/Inflight Manager Device Identifier Shelf Expiration Date Model / Serial / Lot Port Pwr Mri Isp Profile - [id number] Implanted:Qty: 1 on 07/24/2020 by Akash Castillo MD at OR [facility] Right: Chest CR BARD : PERIPHERAL VASCULAR 04/12/2021 [id number] / / [id number] documented as of this encounter Visit Diagnoses [...] Relationship Healthcare Agent Relationshi p Communication [facility] Adult Child Health Care Agent Care Teams Mathematician Research Relationship Specialty Start Date End Date Dhruv Moss MD [address] [place], [place] [address] [address] PCP - General Family Medicine 08/27/21 documented as of this encounter
--- OUTSIDE RECORDS SUMMARY | 2024-10-10 00:38 | External Medical Summary | Summary of Care ---
Author Name Unknown Organization [facility] Address [address] [facility] [place] [address] Phone [phone] Care Team Providers Care Diabetes Specialist Name Role Phone Dhruv Moss MD Primary Care Provide r Reason for Visit * Reason Onset Date Comments Pre Cert/Prior Auth 07/17/2024 Encounter Details Date Type Department Care Team (Late st Contact Info) Description 07/17/2024 Telephone Ophthalmology, [facility] [address] [place] [address] Fernando Damon DO [address] [place] [address] Pre Cert/Prior Auth Allergies No known active [...] day DXe11.9 300 Each 3 12/16/2021 Active VoIP LogicTouch Verio Flex System w/Device Kit Use as [...] less than 8.0% ([facility]) TAKE 1 TABLET BY MOUTH TWICE [...] morning. 30 mL 3 04/05/2024 Active Pen [place] 32G X 4 MM Use as directed. [...] 24 Hour (Imdur)Indications:C oronary artery disease involving [place] coronary artery of [place] heart without angina pectoris,HTN, goal below 140/90 [...] 3553 0000 2079 7075 732 / DID: [id number] Matched Unrelated 10/24--- DPB1 Match ABO/Rh: A [...] Thrombocytopenia 12/06/2022 Last Assessment & Plan: Platelets 50652 on 03/20 Questionable hematuria Urinary incontinence 09/12/2022 [...] failure. Does not have any evidence of iyxiv-uzeewn-rzcr disease Last Assessment & Plan: Continues to [...] -continue venlafaxine Coronary artery disease invo lving [place] coronary artery of [place] heart without angina pectoris 06/12/2017 Overview: S/P EDIL to LAD on 06/12/17 Last Assessment & Plan: No angina - Continue atorvastatin, isosorbide, metoprolol - no ASA due to thrombocytopenia Dyslipidemia, goal LDL below 70 11/25/2011 Last Assessment & Plan: Patient having no issues. She continues on Lipitor 40 mg daily Last lab I will was that I can find were from [phone] Assessment/plan: Dyslipidemia with patient currently taking Lipitor [...] No 12/22/2023 Does the household have a presbyterian kaseman hospitallar source of income? (Household - for [...] 07/17/2024 9:44 AM EDT New Medication Insurance: [facility] Provider: Fernando Damon DO Tax ID: [id number] Office Address: [address] [place] [address] [place] [address] Office Office Drug Name/CPT: Avastin ICD 10: E11.3313 Dosage: 2.75mg/0.11ml Eye Treated: Both eyes Frequency: Q 4-6 weeks Prior Eye medications received: Avastin, Eyle[facility] Special[facility] Pharmacy/Buy and bill? Office stock documented in this encounter Plan of Treatment Upcoming Encounters Date Type Department Care Team (Late st Contact Info) Description 07/22/2024 11:30 AM EDT Telemedicine Pharmacy, [address] [place] [address] [place] [address] 07/24/2024 7:10 AM EDT Laboratory Lab [facility] [address] [employer] [place] [address] [facility] [address] [employer] [place] [address] 07/31/2024 7:10 AM EDT Laboratory Lab [facility] [address] [place] [address] [facility], [facility] [address] [facility] [place] [address] 08/07/2024 7:10 AM EDT Laboratory Lab [facility] [address] [place] [address] [facility], [facility] [address] [place] [address] 08/13/2024 8:30 AM EDT Home Visit [facility] [place], [facility] [place] [address] Marisa Pacheco RN [address] [place] [address] 08/27/2024 1:00 PM EDT Office Visit Pharmacy, [address] [place] [address] [place] [address] 10/16/2024 1:45 PM EST Office Visit Hematology/Oncology [facility] [address] [facility] [place] [phone] Jitendra Aguero MD [address] [place] [address] 12/24/2024 2:30 PM EST Nurse Only Ancillary [address] [place] [address] Cristina, Nurse [address] [place] [address] 01/13/2025 11:40 AM EST Office Visit [address] [place] [phone] Dhruv Moss MD [address] [place] [address] [place] [address] 07/21/2025 1:30 PM EDT Imaging Radiology [address] [place] [address] 08/04/2025 1:20 PM EDT Office Visit [address] [place] [address] Dhruv Moss MD [address] [place] [address] [place] [address] Health Maintenance Due Date Last Done Comments [...] D LEVEL ONCE IN A LIFETIME-USE SMARTSET# 21046 Completed 05/11/2015 RETIRED - COLONOSCOPY-EVERY 5 YRS [...] this encounter Medical Devices Implanted Type Area Assemblyman Or Woman Device Identifier Shelf Expiration Date Model / Serial / Lot Port Pwr Mri Isp Profile - [id number] Implanted:Qty: 1 on 07/24/2020 by Akash Castillo MD at [facility] Right: Chest CR BARD : PERIPHERAL VASCULAR 04/12/2021 [id number] / / [id number] documented as of this encounter Visit Diagnoses [...] on File Name Relationship Healthcare Agent [facility] p Communication [facility] Adult Child Health Care Agent Care Teams Diabetes Specialist Relationship Specialty Start Date End Date Dhruv Moss MD [address] [place] [id number] PCP - General Family Medicine 08/27/21 documented as of this encounter
--- OUTSIDE RECORDS SUMMARY | 2024-10-10 00:39 | External Medical Summary | Summary of Care ---
Author Name Unknown Organization [facility] [address] [facility] [address] Phone [phone] Care Team Providers Care Tobacco Blender Name Role Phone Dhruv Moss MD Primary Care Provide r Reason for Visit * Reason Comments Follow Up 3 months Encounter Details Date Type Department Care Team (Late st Contact Info) Description 07/05/2024 9:15 AM EDT Office Visit Hematology/Oncology [facility] [address] [facility] [place] [address] Jitendra Aguero MD [address] [facility] [address] MDS (myelodysplastic syndrome), high grade (HCC)*; Thrombocytopenia (HCC) Allergies No known active allergiesdocumented as of this encounter (statuses as of 07/05/2024) Medications Medication Sig Dispensed Refills Start Date [...] day DXe11.9 300 Each 3 12/16/2021 Active Atl[employer]ia SearchTouch Verio Flex System w/Device Kit Use as [...] (PriLOSEC)Indication s:MDS (myelodysplastic syndrome), high grade ([facility]) Take 1 capsule by mouth twice daily [...] the morning. 30 mL 04/05/2024 Active Pen [place] 32G X 4 MM Use as directed. [...] (Imdur)Indications:C oronary artery disease involving [place] coronary [...] than three days. 6 mL 07/02/2024 Active Hospital, Clinic, or Other Facility Administered Medication Ordered Dose Route Frequency Start Date End Date Status NSS 0.9% 1,000 mL bolus infusionIndications:MDS (myelodysplastic syndrome), high grade (HCC),Stem cells transplant status (HCC),Acquired hypothyroidism 1000 mL IV DAILY PRN 12/08/2021 Active documented as of this encounter (statuses as of 07/05/2024) Active Problems Patient Care Coordination No te Formatting of this note migh t be different from the original. Date of Transplant: 09/01/2021 Conditioning Regimen: Fludarabine / Busulfan 2 with post-transplant Cytoxan ABO/Rh: A Positive CMV status: CMV Positive--- GRID: [id number] / DID: [id number] Matched Unrelated 10/24--- DPB1 Match ABO/Rh: A [...] Thrombocytopenia 12/06/2022 Last Assessment & Plan: Platelets 95257 on 03/20 Questionable hematuria Urinary incontinence 09/12/2022 [...] failure. Does not have any evidence of mojkl-crsjbc-myqe disease Last Assessment & Plan: Continues to [...] of [place] heart without angina pectoris 06/12/2017 Overview: S/P EDIL to LAD on 06/12/17 Last Assessment & Plan: No angina - Continue atorvastatin, isosorbide, metoprolol - no ASA due to thrombocytopenia Dyslipidemia, goal LDL below 70 11/25/2011 Last Assessment & Plan: Patient having no issues. She continues on Lipitor 40 mg daily Last lab I will was that I can find were from [id number] Assessment/plan: Dyslipidemia with patient currently taking Lipitor [...] as of this encounter (statuses as of 07/05/2024) Resolved Problems Problem Noted Date Diagnosed Date [...] as of this encounter (statuses as of 07/05/2024) Immunizations Name Administration Dates Next Due COVID-19 mRNA, LNP-s, No Pre serve, 2-Dose Series (RewardMe) 02/05/2021,01/08/2021 COVID-19, LNP-s, No Preserve , Ye-sucrose, [...] Sign Reading Time Taken Comments Blood Pressure 119/63 07/05/2024 9:04 AM EDT Pulse 59 07/05/2024 9:04 AM EDT Temperature 36.4 C (97.5 F) 07/05/2024 9:04 AM ED T Respiratory Rate - - Oxygen Saturation 98% 07/05/2024 9:04 AM EDT Inhaled Oxygen Concentration - - Weight 71.2 kg (157 lb) 07/05/2024 9:04 AM EDT Height - - Body Mass Index 25.34 07/02/2024 12:51 PM EDT documented in this encounter Functional Status Functional [...] Progress Notes * Jitendra Aguero MD - 07/05/2024 9:15 AM EDT Hematology/Oncology Outpatient Clinic note Ananya Roberts [facility] [place] [address] Name: Ruth Burger Date: 03/28/2024 CHIEF COMPLAINT: Ruth Burger is a 73 year old female here today for f/u visit today. 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 DATE OF DIAGNOSIS: 06/24/2020 TREATMENT HISTORY: - Dacogen between 07/2020 -June 2021( 9 cycles) - allogeneic stem cell transplantation in August 2021. CURRENT TREATMENT: Currently under observation but may require blood transfusion if the hemoglobin level is less than 8 ( because of cardiac reasons ), or Platelet transfusion if It is less than 10 or bleeding complications. -does not require irradiated blood products . DIAGNOSTIC WORKUP: Bone marrow examination (06/24/2020) -MDS with multi lineage dysplasia, 4% erythroblast, patchy fibrosis. 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 Significance isunknown at this time. -chromosome analysis --> Karyotype: 47,XX,del(5)(q22q35),del(11)(p13p15.5),ider(20)(q10)del(20)( q11.2q13.3),+mar[7]/46,XX[5] IPSS--> 2.5, INT -2 R-IPSS--> 5, high [...] studies reveal a del 20q12 and del 4n66-z52. Molecular studies reveal a RUNX1 abnormality as [...] the past. -back surgery. - herpes ophthalmicus. HISTORY OF PRESENT ILLNESS: She has come the clinic for the follow-up, came to clinic by herself. Ambulating with the help of the cane. Recently she had some epistaxis, she gets periodic blood and Platelet transfusion based on the blood test results and her symptoms. No other bleeding sites. She is not on any anticoagulant or aspirintherapy. Feeling weak and tired, no fever, no increasing headache, stable weight around 157 lb. No recent fall, no recent hospitalization. She gets blood workup every weekly. (at home phlebotomy). Feeling weak and tired but still able to function to a great extent in the day. Past Medical History: Diagnosis Date Hager's palsy [...] performed by Robyn Bynum MD at [facility]COPY [facility] DILATION AND CURETTAGE (D&C) x 2 EGD, FLEXIBLE, DIAGNOSTIC N/A 10/22/2021 ESOPHAGOGASTRODUODENOSCOPY (EGD), FLEXIBLE, TRANSORAL, DIAGNOSTIC performed by Tom Rivera MD at[facility] INFORMATION Bilateral AVASTIN CONSENT OU SIGNED; DR [...] performed by Akash Castillo MD at OR [facility] IR BIOPSY 08/30/2022 IR BIOPSY 03/20/2023 [...] Vaping Use Vaping status: Never Used Substance and Sexual Activity Alcohol use: No Drug use: No Sexual activity: Not on file Other Topics Concern Not on file Social History Narrative for 53 yrs as of 12/22/2023 1 small dog No mold Social Determinants of Health Financial Resource Strain: Low Risk (12/22/2023) Financial Resource Strain Do you have any trouble paying for your medications, or do you think you might in the future? (Adult - for ages 18 years and over): No Does your family have trouble paying for medicine? (Household - for ages 0-17 years): Not on file Food Insecurity: No Food Insecurity (12/22/2023) Food Insecurity Do you need food for this week? (Adult - for ages 18 years and over): No Are you able to get enough food for your family? (Household - for ages 0-17 years): Not on file Does your family need food this week? (Household - for ages 0-17 years): Not on file Do you always have enough food for your family? (Household - for ages 0-17 years): Not on file Transportation Needs: No Transportation Needs (12/22/2023) Transportation Needs Do you have trouble getting a ride to medical visits or work? (Adult - for ages 18 years and over):Never True Does your family have a hard time getting a ride to doctors visits? (Household - for ages 0-17 years): Not on file Has lack of transportation kept you from medical appointments, meetings, work, or from getting things needed for daily living? Check all that apply. (Adult - for ages 18 years and over): Not on file Do you (or your family) have trouble finding or paying for a ride (transportation)? (Household - for ages 0-17 years): Not on file Social Connections: Socially Integrated (12/22/2023) Social Connections How often do you feel lonely or isolated from those around you? (Adult - for ages 18 years and over): Sometimes Housing Stability: Low Risk (03/13/2024) Received from [facility] Housing Stability Unstable Housing in the Last Year: Not on file Review of patient's allergies indicates: No Known Allergies Current Outpatient Medications Medication Sig Dispense Refill Ondansetron HCl 8 MG Oral Tablet Take [...] times a day DXe11.9 300 Each 3 Mochi [employer] VerProtea Medical Flex System w/Device Kit Use as directed . Acetaminophen 500 MG Oral Tablet Take 1 Tablet by mouth every 6 hours as needed. Metoprolol Succinate ER 50 MG Oral Tablet Extended Release 24 Hour (toPROL XL) Take 1 Tablet by mouth in the morning. 90 Tablet 3 Premarin 0.625 MG/GM Vaginal Cream (Estrogens Conjugated) Administer 1 g into the vagina at bedtime. As directed. (Patient not taking: Reported on 01/31/2024) 42.5 g 5 Omeprazole 20 MG Oral Capsule Delayed Release (PriLOSEC) Take 1 capsule by mouth twice daily 180 Capsule 2 NovoLIN R 100 UNIT/ML Injection Solution (insulin REGULAR human) Inject 8 units with breakfast, 4 units with lunch, and 6 units with dinner + sliding scale of 1 units per every 20 over 140 MAX DAILY DOSE 50 units 50 mL 5 Levothyroxine Sodium 88 MCG Oral Tablet (Levoxyl) TAKE ONE TABLET BY MOUTH daily first thing in themorning at least 30 minutes prior to breakfast or other meds 90 Tablet 1 metFORMIN HCl 1000 MG Oral Tablet (Glucophage) TAKE 1 TABLET BY MOUTH TWICE DAILY WITH MORNING AND EVENING MEALS 180 Tablet 1 Magnesium 100 MG Oral Capsule Take 1 Capsule by mouth in the morning. Venlafaxine HCl ER 150 MG Oral Capsule Extended Release 24 Hour (Effexor XR) TAKE ONE CAPSULE BY MOUTH EVERY DAY do not cut, crush, or chew 90 Capsule 1 Insulin Glargine Solostar 100 UNIT/ML Subcutaneous Solution Pen-injector (Lantus SoloStar) Inject 20 Units under the skin in the morning. 30 mL 3 Pen [place] 32G X 4 MM Use as directed. [...] MOUTH IN THE MORNING 90 Tablet 1 Oxymetazoline HCl 0.05 % Nasal Solution Administer 2 Sprays into each nostril 2 times a day as needed for Congestion (for congestion). Do not use for more than three days. 6 mL 0 Current Facility-Administered Medications Medication Dose Route Frequency Provider Last Rate Last Admin NSS 0.9% 1,000 mL bolus infusion 1,000 mL Intravenous Daily PRN Chinmay Rodriguez PA-C 1,000 mL at 12/08/21 1137 REVIEW OF SYSTEMS: See HPI - otherwise negative OBJECTIVE: BP 119/63 (BP Site: Left Arm, BP Position: Sitting, BP Cuff Size: Regular) | Pulse 59 | Temp 36.4 C (97.5 F) (Tympanic) | Wt 71.2 kg (157 lb) | LMP 10/29/2000 | SpO2 98% | BMI 25.34 kg/m | BSA 1.82 m PHYSICAL EXAM: ECOG: Performance Status 1-2 General Appearance: No acute distress Lungs/Thorax: Normal respiratory effort Extremities: No edema Neurologic: alert and oriented x 4, ambulates with assistive device LABS: Blood workup done on 07/04/2024: -WBC 01300, immature WBCs noted -hemoglobin level 6, hematocrit 18.5, Platelet count 4000. She received 2 units of PRBC N1 bag of Platelet [facility] at [facility]. She will continue to have weekly CBCD checkup (at home phlebotomy). IMPRESSION/PLAN: Relapsed myelodysplastic syndrome Currently she is interested in pursuing to have a quality of the life and no active treatment Continue to have CBCD checkup every week If she needs blood product, she does not require irradiated blood products at this time Consider for blood transfusion if the hemoglobin level is less than 8 and Platelet count of less than 10. We talked about overall poor progression carcinoma she understood that well. I am planning to see her back [...] in this encounter Nursing Notes * Eugenie Jerome MED ASSIST - 07/05/2024 9:06 AM EDT Patient identifed by name and birthdate Do you have any concerns about pain management for today's visit? Yes. Patient instructed to discuss pain concerns with provider during the visit today Living Will or Advance Directive for Health Care as noted on the problem list. [employer] [facility] is a way you can talk to your provider on line through e-mail. Would you like to sign up? I can activate it for you? ALREADY ACTIVE Filed Vitals: 07/05/24 0904 BP: 119/63 Pulse: 59 Temp: 36.4 C (97.5 F) TempSrc: Tympanic SpO2: 98% Weight: 71.2 kg (157 lb) Patient was instructed to not get up on the exam table/exam chair until directed and assisted by their provider; patient is to remain seated in the chair/ wheelchair/ exam table/ exam chair for fall prevention and safety reasons. Patient is aware to have assistance to step down off exam table/exam chair with personnel. Patient voiced full comprehension of instructions. Pt reported she had an episode of loss of memory on February 24-. Pts family called the ambulance from an unknown location and taken to [facility] where she was later admitted. documented in this encounter Plan of Treatment Upcoming Encounters Date Type Department Care Team (Latest Contact Info) Description 07/10/2024 7:10 AM EDT Laboratory Lab Mobile Phlebotomy [facility] [address] [place] [address] [address] [id number] [facility] Draw [address] [place] [address] [address] 07/11/2024 1:00 PM EDT Telemedicine Pharmacy, [address] [place] [address] [place] [address] 07/12/2024 1:41 PM EDT Hospital Encounter [place] [facility], Operating Room, [facility] - 4th Floor [address] [place] [phone] Noemy Carrasco, DO [address] [place] [address] 07/12/2024 1:41 PM EDT - 07/12/2024 2:19 PM EDT Surgery OR [facility], Operating Room, [facility] - 4th Floor [address] [place] [address] [address] Noemy Carrasco, DO [address] [place] [address] COLONOSCOPY FLEXIBLE PROXIMAL DIAGNOSTIC 07/17/2024 7:10 AM EDT Laboratory Lab Mobile Phlebotomy [facility] [address] [place] [address] [address] [facility], [facility] Mobile Home Draw [address] [place], [place] [address] 07/24/2024 7:10 AM EDT Laboratory Lab Mobile Phlebotomy [facility] [address] [place] [address] [address] [facility], [facility] Mobile Home Draw [address] [place] [address] 07/31/2024 7:10 AM EDT Laboratory Lab [facility] Phlebotomy [facility] [address] [place] [address] [address] [facility] Home Draw [address] [place] [address] 08/07/2024 7:10 AM EDT Laboratory Lab [facility] Phlebotomy [facility] [address] [place] [address] [facility] Mobile Home Draw [address] [place] [address] 08/13/2024 8:30 AM EDT Home Visit [facility], [facility] [address] [place] [address] Marisa Pacheco, RN [address] [place] [address] 08/27/2024 1:00 PM EDT Office Visit Pharmacy, [address] [place] [address] [place] [address] 10/16/2024 1:45 PM EST Office Visit Hematology/Oncology [facility] [address] [facility] [place] [phone] Jitendra Aguero MD [address] [facility] [place] [address] 12/24/2024 2:30 PM EST Nurse Only Ancillary [address] [place] [address] [place], Nurse Annual [address] [place] [address] 01/13/2025 11:40 AM EST Office Visit Family Medicine [address] [place] [phone] Dhruv Moss MD [address] [place] [address] [place] [address] 07/21/2025 1:30 PM EDT Imaging Radiology [address] [place] [address] 08/04/2025 1:20 PM EDT Office Visit Family Medicine [address] [place] [phone] Dhruv Moss MD [address] [place] [address] [place] [id number] Scheduled Procedures Name Priority Associated Diagnoses Date/Ti me COLONOSCOPY FLEXIBLE PROXIMA L DIAGNOSTIC Recall Diarrhea 07/12/2024 1:41 PM EDT Health Maintenance Due Date Last Done Comments COVID-19 Vaccine ( season) 2023 12/06/2021, 02/05/2021, 01/08/2021 *BISPHONATE OR OTHER ACCEPTABLE MEDICATION NEEDED FOR OSTEOPOROSIS (REFER TO SMARTSET #1146) 11/06/2023 Colonoscopy 05/06/2024 05/06/2019, 05/06/2019 Diabetic Eye Exam 05/12/2024 05/12/2023, , 05/12/2023, Additional history exists Influenza Vaccine (FLU shot) (#1) 2024 07/17/2020, [...] 07/02/2024, 0 06/05/2023, 06/03/2022, Additional history exists DTaP,Tdap,and Td Vaccines (3 - Td or Tdap) 11/10/2026 11/10/2016, 03/30/2011 VITAMIN D LEVEL ONCE IN A LIFETIME-USE SMARTSET# 99557 Completed 05/11/2015 RETIRED - COLONOSCOPY-EVERY 5 YRS [...] this encounter Medical Devices Implanted Type Area Doll Repairer Device Identifier Shelf Expiration Date Model / Serial / Lot Port Pwr Mri Isp Profile - [id number] Implanted:Qty: 1 on 07/24/2020 by Akash Castillo MD at OR [facility] Right: Chest CR BARD : PERIPHERAL VASCULAR 04/12/2021 [id number] / / [id number] documented as of this encounter Visit Diagnoses Diagnosis MDS (myelodysplastic syndrome), high grade (HCC)- Primary High grade myelodysplastic syndrome lesions Thrombocytopenia (HCC) Thrombocytopenia, unspecified Diarrhea Screening mammogram for breast cancer documented in [...] Agents on File Name Relationship [facility] Juanita Silva Adult Child Health Care Agent Care Teams Tobacco Blender Relationship Specialty Start Date End Date Dhruv Moss MD [address] [place] [address] [place] [address] PCP - General Family Medicine 08/27/21 documented as of this encounter
--- OUTSIDE RECORDS SUMMARY | 2024-10-10 00:39 | External Medical Summary | Summary of Care ---
Author Name Unknown Organization [facility] Address [address] [facility] [address] Phone [phone] Care Team Providers Care Health Safety Engineer Name Role Phone Dhruv Moss MD Primary Care Provide r Reason for Visit * Reason Comments eRx-Medication Refill Encounter Details Date Type Department Care Team (Late st Contact Info) Description 07/13/2024 Refill Family Medicine [address] [phone] Dhruv Moss MD [address] [place] [address] [place] [address] MDS (myelodysplastic syndrome), high grade (HCC) Allergies No known active allergiesdocumented as of this encounter (statuses as of 07/16/2024) Medications Medication Sig Dispensed Refills Start Date [...] 300 Each 3 2 Active OneTouch Verio Flex System w/Device Kit Use as directed . 2 Active Acetaminophen 500 MG Oral Tablet Take 1 Tablet by mouth every 6 hours as needed. Active Metoprolol Succinate ER 50 MG Oral Tablet Extended Release 24 Hour (toPROL XL)Indications:HTN, goal below 140/90 Take 1 Tablet by mouth in the morning. 90 Tablet 3 3 Active Premarin 0.625 MG/GM Vaginal Cream (Estrogens Conjugated) Administer 1 g into the vagina at bedtime. As directed. 42.5 g 5 3 Active Additional Information Patient not taking.Reported on 01/31/2024 NovoLIN R 100 UNIT/ML Injection Solution (insulin REGULAR human)Indications:T ype 2 diabetes mellitus with hemoglobin A1c goal of less than 8.0% ([facility]) Inject 8 units with breakfast, 4 units with lunch, and 6 units with dinner + sliding scale of 1 units per every 20 over 140 MAX DAILY DOSE 50 units 50 mL 5 3 Active Levothyroxine Sodium 88 MCG Oral Tablet (Levoxyl)Indication s:Postoperative hypothyroidism TAKE ONE TABLET BY MOUTH daily first thing in the morning at least 30 minutes prior to breakfast or other meds 90 Tablet 1 4 Active metFORMIN HCl 1000 MG Oral Tablet (Glucophage)Indicat ions:Type 2 diabetes mellitus with hemoglobin A1c goal of less than 8.0% ([facility]) TAKE 1 TABLET BY MOUTH TWICE DAILY WITH MORNING AND EVENING MEALS 180 Tablet 1 4 Active Magnesium 100 MG Oral Capsule Take 1 Capsule by mouth in the morning. Active Venlafaxine HCl ER 150 MG Oral Capsule Extended Release 24 Hour (Effexor XR)Indications:Recu rrent major depressive disorder, in partial remission (HCC) TAKE ONE CAPSULE BY MOUTH EVERY DAY do not cut, crush, or chew 90 Capsule 1 4 Active Insulin Glargine Solostar 100 UNIT/ML Subcutaneous Solution Pen-injector (Lantus SoloStar) Inject 20 Units under the skin in the morning. 30 mL 3 4 Active Pen [place] 32G X 4 MM Use as directed. [...] 24 Hour (Imdur)Indications: Coronary artery disease involving [place] coronary artery of [place] heart without angina pectoris,HTN, goal below 140/90 [...] (PriLOSEC)Indicatio ns:MDS (myelodysplastic syndrome), high grade (HCC) TAKE ONE CAPSULE BY MOUTH TWICE DAILY 180 Capsule 2 4 Active Omeprazole 20 MG Oral Capsule Delayed Release (PriLOSEC)Indicatio ns:MDS (myelodysplastic syndrome), high grade (HCC) Take 1 capsule by mouth twice daily 180 Capsule 2 3 07/16/20 24 Discontinued Hospital, Clinic, or Other Facility Administered Medication Ordered Dose Route Frequency Start Date End Date Status NSS 0.9% 1,000 mL bolus infusionIndications:MDS (myelodysplastic syndrome), high grade (HCC),Stem cells transplant status (HCC),Acquired hypothyroidism 1000 mL IV DAILY PRN 12/08/2021 Active documented as of this encounter (statuses as of 07/16/2024) Active Problems Patient Care Coordination No te Formatting of this note migh t be different from the original. Date of Transplant: 09/01/2021 Conditioning Regimen: Fludarabine / Busulfan 2 with post-transplant Cytoxan ABO/Rh: A Positive CMV status: CMV Positive--- GRID: [id number] / DID: [id number] Matched Unrelated 10/24--- DPB1 Match ABO/Rh: A [...] Thrombocytopenia 12/06/2022 Last Assessment & Plan: Platelets 87190 on 03/20 Questionable hematuria Urinary incontinence 09/12/2022 [...] failure. Does not have any evidence of fxkhl-qhxjxx-eocx disease Last Assessment & Plan: Continues to [...] -continue venlafaxine Coronary artery disease invo lving [place] coronary artery of [place] heart without angina pectoris 06/12/2017 Overview: S/P EDIL to LAD on 06/12/17 Last Assessment & Plan: No angina - Continue atorvastatin, isosorbide, metoprolol - no ASA due to thrombocytopenia Dyslipidemia, goal LDL below 70 11/25/2011 Last Assessment & Plan: Patient having no issues. She continues on Lipitor 40 mg daily Last lab I will was that I can find were from [phone] Assessment/plan: Dyslipidemia with patient currently taking Lipitor [...] as of this encounter (statuses as of 07/16/2024) Resolved Problems Problem Noted Date Diagnosed Date [...] as of this encounter (statuses as of 07/16/2024) Immunizations Name Administration Dates Next Due COVID-19 [...] encounter Miscellaneous Notes * Telephone Encounter - Lisa Velasco RPh - 07/16/2024 9:45 AM EDTSigned Prescriptions: Disp Refills Omeprazole 20 MG Oral Capsule Delayed Rele*180 Ca*2 Sig: TAKE ONE CAPSULE BY MOUTH TWICE DAILYAuthorizing Provider: DHRUV MOSS User: LISA VELASCO documented in this encounter Plan of Treatment Upcoming Encounters Date Type Department Care Team (Late st Contact Info) Description 07/17/2024 7:10 AM EDT Laboratory Lab [facility] [address] [place] [address] [facility] [address] [place] [address] 07/17/2024 9:00 AM EDT Office Visit Ophthalmology, [facility] [address] [place] [address] Fernando Damon DO [address] [place] [address] 07/22/2024 11:30 AM EDT Telemedicine Pharmacy, [address] [place] [address] [place] [address] 07/24/2024 7:10 AM EDT Laboratory Lab Mobile Phlebotomy [facility] [address] [place] [address] [facility] [address] [place] [address] 07/31/2024 7:10 AM EDT Laboratory Lab [facility] Ph[facility]bot[facility] [address] [place] [address] [facility], [facility] Draw [address] [place] [address] 08/07/2024 7:10 AM EDT Laboratory Lab [facility] Phlebot[facility] [address] [place] [address] [facility], [facility] Draw [address] [place], [place] [address] 08/13/2024 8:30 AM EDT [facility], [facility] [address] [address] Marisa Pacheco, RN 132 [place] [address] 08/27/2024 1:00 PM EDT Office Visit Pharmacy, [address] [place] [address] [place] [address] 10/16/2024 1:45 PM EST Office Visit Hematology/Oncology [facility] [place] [address] [facility] [address] [place] [phone] Jitendra Aguero MD [address] [facility] [place] [address] 12/24/2024 2:30 PM EST Nurse Only Ancillary [address] [place] [address] [place], Nurse Annual [address] [place] [address] 01/13/2025 11:40 AM EST Office Visit Family [address] [place] [phone] Dhruv Moss MD [address] [place] [address] [place] [address] 07/21/2025 1:30 PM EDT Imaging Radiology [address] [place] [address] 08/04/2025 1:20 PM EDT Office Visit [address] [place] [phone] Dhruv Moss MD [address] [place] [address] [place] [address] Health Maintenance Due Date Last Done Comments *BISPHONATE OR OTHER ACCEPTABLE MEDICATION NEEDED FOR OSTEOPOROSIS (REFER TO SMARTSET #1146) 11/06/2023 Colonoscopy 05/06/2024 05/06/2019, 05/06/2019 Diabetic Eye Exam 05/12/2024 05/12/2023, , 05/12/2023, Additional history exists COVID-19 Vaccine ( season) [...] 07/02/2024, 0 06/05/2023, 06/03/2022, Additional history exists DTap/Tdap Vaccines (3 - Td or Tdap) 11/10/2026 11/10/2016, 03/30/2011 VITAMIN D LEVEL ONCE IN A LIFETIME-USE SMARTSET# 80780 Completed 05/11/2015 RETIRED - COLONOSCOPY-EVERY 5 YRS [...] this encounter Medical Devices Implanted Type Area Rides Supervisor Device Identifier Shelf Expiration Date Model / Serial / Lot Port Pwr Mri Isp Profile - [id number] Implanted:Qty: 1 on 07/24/2020 by Akash Castillo MD at OR [facility] Right: Chest CR BARD : PERIPHERAL VASCULAR 04/12/2021 [id number] / / [id number] documented as of this encounter Visit Diagnoses [...] on File Name Relationship Healthcare Agent [facility] Communication Juanita Ricardo Adult Child Health Care Agent Care Teams Health Safety Engineer Relationship Specialty Start Date End Date Dhruv Moss MD [address] [place] [address] PCP - General Family Medicine 08/27/21 documented as of this encounter
--- OUTSIDE RECORDS SUMMARY | 2024-10-10 00:39 | External Medical Summary ---
Author Name Unknown Address Unknown Organization K01:[facility] [address] [facility] [place] [address] Laboratory Report Ordering Provider Test Date Status ANN MUNGUIA 07/10/2024 09:11:00 Final Observation Date Value Abnormality Reference (Units ) Status SYNC LEUKOCYTES IN BLOOD BY AUTOMATED COUNT 07/10/2024 09:11:00 12.63 Above high normal 4.00-10.80 (K/uL) Final Neutrophils/100 leukocytes in Blood by Manual count 07/10/2024 09:11:00 41.0 40.0-75.0 (%) Final Lymphocytes/100 leukocytes in Blood by Manual count 07/10/2024 09:11:00 46.0 Above high normal 18.0-42.0 (%) Final Monocytes/100 leukocytes in Blood by Manual count 07/10/2024 09:11:00 4.0 1.0-11.0 (%) Final Metamyelocytes/100 leukocytes in Blood by Manual count 07/10/2024 09:11:00 4.0 Above high normal <=0.0 (%) Final Blasts/100 leukocytes in Blood by Manual count 07/10/2024 09:11:00 5.0 Above high normal <=0.0 (%) Final Neutrophils [#/volume] in Blood by Manual count 07/10/2024 09:11:00 5.18 1.80-7.70 (K/uL) Final Lymphocytes [#/volume] in Blood by Manual count 07/10/2024 09:11:00 5.81 Above high normal 1.00-4.80 (K/uL) Final Monocytes [#/volume] in Blood by Manual count 07/10/2024 09:11:00 0.51 0.00-1.10 (K/uL) Final Metamyelocytes [#/volume] in Blood by Manual count 07/10/2024 09:11:00 0.51 Above high normal <=0.00 (K/uL) Final Blasts [#/volume] in Blood by Manual count 07/10/2024 09:11:00 0.63 Above high normal <=0.00 (K/uL) Final Performing Location LABORATORY [facility] [place] - [address] [facility] [address]
--- OUTSIDE RECORDS SUMMARY | 2024-10-10 00:39 | External Medical Summary | Summary of Care ---
Author Name Unknown Organization [facility] Address [address] [facility] [place] [address] Phone [phone] Care Team Providers Care Animal Attendants And Trainers Name Role Phone Dhruv Moss MD Primary Care Provide r Encounter Details Date Type Department Care Team (Late st Contact Info) Description 07/09/2024 Orders Only Hematology/Oncology [facility] Alejandra [place] [address] [facility] [place] [phone] Jitendra Aguero MD [facility] [address] MDS (myelodysplastic syndrome), high grade (HCC)* Allergies No known active allergiesdocumented as of this encounter (statuses as of 07/09/2024) Medications Medication Sig Dispensed Refills Start Date [...] for Nausea. 60 Tablet 3 12/09/2021 Active CardiAQ Valve TechnologiesTouch Delica Lancets 30GIndications:Type 2 diabetes mellitus with hemoglobin A1c goal of less than 8.0% ([facility]) Use to test blood sugar three times a day DXe11.9 300 Each 3 12/16/2021 Active CardiAQ Valve TechnologiesToMisoca Verio Flex System w/Device Kit Use as [...] morning. 30 mL 3 04/05/2024 Active Pen [place] 32G X 4 MM Use as directed. [...] Hour (Imdur)Indications:C oronary artery disease involving [place] coronary artery of [place] heart without angina pectoris,HTN, goal below 140/90 [...] as of this encounter (statuses as of 07/09/2024) Active Problems Patient Care Coordination No te Formatting of this note migh t be different from the original. Date of Transplant: 09/01/2021 Conditioning Regimen: Fludarabine / Busulfan 2 with post-transplant Cytoxan ABO/Rh: A Positive CMV status: CMV Positive--- GRID: [id number] [id number] / DID: [id number] Matched Unrelated 10/24--- DPB1 Match ABO/Rh: A [...] Thrombocytopenia 12/06/2022 Last Assessment & Plan: Platelets 23942 on 03/20 Questionable hematuria Urinary incontinence 09/12/2022 [...] failure. Does not have any evidence of zquff-kqghkv-xjum disease Last Assessment & Plan: Continues to [...] venlafaxine Coronary artery disease invo lving [place] coronary artery of [place] heart without angina pectoris 06/12/2017 Overview: S/P EDIL to LAD on 06/12/17 Last Assessment & Plan: No angina - Continue atorvastatin, isosorbide, metoprolol - no ASA due to thrombocytopenia Dyslipidemia, goal LDL below 70 11/25/2011 Last Assessment & Plan: Patient having no issues. She continues on Lipitor 40 mg daily Last lab I will was that I can find were from [phone] Assessment/plan: Dyslipidemia with patient currently taking Lipitor [...] as of this encounter (statuses as of 07/09/2024) Resolved Problems Problem Noted Date Diagnosed Date [...] as of this encounter (statuses as of 07/09/2024) Immunizations Name Administration Dates Next Due COVID-19 mRNA, LNP-s, No Pre serve, 2-Dose Series (YinYangMap) 02/05/2021,01/08/2021 COVID-19, LNP-s, No Preserve , Ye-sucrose, [...] Care Team (Late st Contact Info) Description 07/10/2024 7:10 AM EDT Laboratory Lab Mobile Phlebot[facility] [address] [place] [address] [address] [facility] Draw [address] [place] [address] [address] 07/11/2024 1:00 PM EDT Telemedicine Pharmacy, [address] [place] [address] [place] [address] 07/17/2024 7:10 AM EDT Laboratory Lab [facility] [address] [place] [address] [address] [facility] Draw [address] [place] [address] [address] 07/24/2024 7:10 AM EDT Laboratory Lab [facility] [address] [address] [facility] Draw [address] [place] [address] [address] 07/31/2024 7:10 AM EDT Laboratory Lab [facility] Ph[facility]bot[facility] [address] [address] [facility] Draw [address] [place] [address] 08/07/2024 7:10 AM EDT Laboratory Lab Mobile Phlebot[facility] [address] [facility] [place] [address] [facility], Gml Mobile Home Draw [address] [place] [address] 08/13/2024 8:30 AM EDT [facility] [address] [facility] [place] [address] Marisa Pacheco, TANYA [address] [place] [address] 08/27/2024 1:00 PM EDT Office Visit Pharmacy, [address] [place] [address] [place] [address] 09/27/2024 1:15 PM EST Office Visit Ophthalmology, [facility] 132 [facility] [place] [address] Usama Paulson MD [address] [address] 10/16/2024 1:45 PM EST Office Visit Hematology/Oncology [facility] 200 [facility] [place] [phone] Jitendra Aguero MD 200 [facility] [place] [address] 12/24/2024 2:30 PM EST Nurse Only Ancillary [address] [place] [address] [place], Nurse [address] [place] [address] 01/13/2025 11:40 AM EST Office Visit Family Medicine [address] [place] [address] Dhruv Moss MD [address] [place] [address] [place] [address] 07/21/2025 1:30 PM EDT Imaging Radiology [address] [place] [address] 08/04/2025 1:20 PM EDT Office Visit Family Medicine [address] [place] [phone] Dhruv Moss MD [address] [place] [address] [place] [address] Scheduled Orders Name Type Priority Associated Diagnoses Orde r Schedule CBC WITH WBC DIFFERENTIAL Lab STAT MDS (myelodysplastic syndrome), high grade (HCC) Every Week for 52 Occurrences starting 07/09/2024 until 07/09/2025 Health Maintenance Due Date Last Done Comments [...] D LEVEL ONCE IN A LIFETIME-USE SMARTSET# 53151 Completed 05/11/2015 RETIRED - COLONOSCOPY-EVERY 5 YRS [...] this encounter Medical Devices Implanted Type Area Propeller Layout Worker Device Identifier Shelf Expiration Date Model / Serial / Lot Port Pwr Mri Isp Profile - [id number] Implanted:Qty: 1 on 07/24/2020 by Akash Castillo MD at OR [facility] Right: Chest CR BARD : PERIPHERAL VASCULAR 04/12/2021 [id number] / / [id number] documented as of this encounter Visit Diagnoses Diagnosis MDS (myelodysplastic syndrome), high grade (HCC)- Primary High grade myelodysplastic syndrome lesions Screening mammogram [...] Agents on File Name Relationship Healthcare Agent [facility] p Communication [facility] Adult Child Health Care Agent Care Teams Animal Attendants And Trainers Relationship Specialty Start Date End Date Dhruv Moss MD [address] [place] [address] PCP - General Family Medicine 08/27/21 documented as of this encounter
--- OUTSIDE RECORDS SUMMARY | 2024-10-10 00:39 | External Medical Summary | Summary of Care ---
Author Name Unknown Organization [facility] Address [address] [facility] [place] [address] Phone [phone] Care Team Providers Care Straight Ruling Machine Operator Name Role Phone Dhruv Moss MD Primary Care Provide r Reason for Visit * Reason Comments Dosage Adjustment Via Phone (anticoag Cl inic) Medication Discussion Encounter Details Date Type Department Care Team (Late st Contact Info) Description 07/11/2024 1:00 PM EDT Telemedicine Pharmacy, [address] [place] [address] [place] [address] Encounter for medication review* Allergies No known active allergiesdocumented as of this encounter (statuses as of 07/11/2024) Medications Medication Sig Dispensed Refills Start Date [...] for Nausea. 60 Tablet 3 12/09/2021 Active Alchemia OncologyTouch Delica Lancets 30GIndications:Type 2 diabetes mellitus with hemoglobin A1c goal of less than 8.0% ([facility]) Use to test blood sugar three times a day DXe11.9 300 Each 3 12/16/2021 Active Alchemia OncologyToCelebCalls Verio Flex System w/Device Kit Use as [...] Release (PriLOSEC)Indication s:MDS (myelodysplastic syndrome), high grade ([facility]) Take 1 capsule by mouth twice daily 180 Capsule 2 06/10/2023 Active NovoLIN R 100 UNIT/ML Injection Solution (insulin REGULAR human)Indications:Ty pe 2 diabetes mellitus with hemoglobin A1c goal of less than 8.0% ([facility]) Inject 8 units with breakfast, [...] morning. 30 mL 3 04/05/2024 Active Pen [place] 32G X 4 MM Use as directed. [...] 24 Hour (Imdur)Indications:C oronary artery disease involving [place] coronary artery of [place] heart without angina pectoris,HTN, goal below [...] as of this encounter (statuses as of 07/11/2024) Active Problems Patient Care Coordination No te Formatting of this note migh t be different from the original. Date of Transplant: 09/01/2021 Conditioning Regimen: Fludarabine / Busulfan 2 with post-transplant Cytoxan ABO/Rh: A Positive CMV status: CMV Positive--- GRID: [id number] [id number] / DID: [id number] Matched Unrelated 10/24--- DPB1 Match ABO/Rh: A [...] Thrombocytopenia 12/06/2022 Last Assessment & Plan: Platelets 72014 on 03/20 Questionable hematuria Urinary incontinence 09/12/2022 [...] failure. Does not have any evidence of bzknq-ndblda-nxun disease Last Assessment & Plan: Continues to [...] -continue venlafaxine Coronary artery disease invo lving [place] coronary artery of [place] heart without angina pectoris 06/12/2017 Overview: S/P EDIL to LAD on 06/12/17 Last Assessment & Plan: No angina - Continue atorvastatin, isosorbide, metoprolol - no ASA due to thrombocytopenia Dyslipidemia, goal LDL below 70 11/25/2011 Last Assessment & Plan: Patient having no issues. She continues on Lipitor 40 mg daily Last lab I will was that I can find were from [phone] Assessment/plan: Dyslipidemia with patient currently taking Lipitor [...] as of this encounter (statuses as of 07/11/2024) Resolved Problems Problem Noted Date Diagnosed Date [...] as of this encounter (statuses as of 07/11/2024) Immunizations Name Administration Dates Next Due COVID-19 mRNA, LNP-s, No Pre serve, 2-Dose Series ([employer]) 02/05/2021,01/08/2021 COVID-19, LNP-s, No Preserve , Ye-sucrose, [...] Progress Notes * Makenzie Pool RPh - 07/11/2024 1:03 PM EDT Patient Phone Numbers Attempted to contact patient to complete CMR. Spoke with patient's daughter. Currently receiving treatment at [facility]. Call rescheduled to 07/22. Makenzie Pool RPh, PharmD Clinical Pharmacist - Substitute Bus Driver Medication Therapy [facility] 07/11/2024, 1:04 PM [phone] documented in this encounter Plan of Treatment Upcoming Encounters Date Type Department Care Team (Late st Contact Info) Description 07/17/2024 7:10 AM EDT Laboratory Lab Mobile Phlebot[facility] [address] [place] [address] [facility], [facility]ml [facility] Draw [address] [place] [address] 07/17/2024 9:00 AM EDT Office Visit Ophthalmology, [facility] [address] [place] [address] Fernando Damon, DO [address] [place] [address] 07/22/2024 11:30 AM EDT Telemedicine Pharmacy, [address] [place] [address] [place] [address] 07/24/2024 7:10 AM EDT Laboratory Lab Mobile Phlebotomy [facility] [address] [place] [address] Mvmg, Gml Mobile Home Draw [address] [place] [address] 07/31/2024 7:10 AM EDT Laboratory Lab Mobile Phlebotomy [facility] [address] [place] [address] Mvmg, Gml Mobile Home Draw [address] [place] [address] 08/07/2024 7:10 AM EDT Laboratory Lab Mobile Phlebotomy [facility] [address] [place] [address] Mvmg, Gml Mobile Home Draw [address] [place] [address] 08/13/2024 8:30 AM EDT Home Visit [facility]inger at [facility] 132 [facility] [place] [address] Marisa Pacheco, TANYA 132 [facility] [place] [address] 08/27/2024 1:00 PM EDT Office Visit Pharmacy, [address] [place] [address] [place] [address] 10/16/2024 1:45 PM EST Office Visit Hematology/Oncology [facility] [address] [facility] [place] [phone] Jitendra Aguero MD [address] [facility] [place] [address] 12/24/2024 2:30 PM EST Nurse Only Ancillary [address] [place] [address] [place], Nurse Annual [address] [place] [address] 01/13/2025 11:40 AM EST Office Visit Family Medicine [address] [place] [phone] Dhruv Moss MD [address] [place] [address] [place] [address] 07/21/2025 1:30 PM EDT Imaging Radiology [address] [place] [address] 08/04/2025 1:20 PM EDT Office Visit [address] [place] [address] Dhruv Moss MD [address] [place] [address] [place] [address] Health Maintenance Due Date Last Done Comments [...] D LEVEL ONCE IN A LIFETIME-USE SMARTSET# 56818 Completed 05/11/2015 RETIRED - COLONOSCOPY-EVERY 5 YRS [...] this encounter Medical Devices Implanted Type Area Pharmacy Services Director Device Identifier Shelf Expiration Date Model / Serial / Lot Port Pwr Mri Isp Profile - [id number] Implanted:Qty: 1 on 07/24/2020 by Akash Castillo MD at OR [facility] Right: Chest CR BARD : PERIPHERAL VASCULAR 04/12/2021 [id number] / / [id number] documented as of this encounter Visit Diagnoses [...] on File Name Relationship [facility] Juanita Silva Adult Child Health Care Agent Care Teams Straight Ruling Machine Operator Relationship Specialty Start Date End Date Dhruv Moss MD [address] [place] [phone] PCP - General Family Medicine 08/27/21 documented as of this encounter
--- OUTSIDE RECORDS SUMMARY | 2024-10-10 00:39 | External Medical Summary | Summary of Care ---
Author Name Unknown Organization [facility] Address [address] [facility] [place] [address] Phone [phone] Care Team Providers Care Gradall Operator Name Role Phone Dhruv Moss MD Primary Care Provide r Reason for Visit * Reason Onset Date Comments Test Results 07/11/2024 Plts Encounter Details Date Type Department Care Team (Late st Contact Info) Description 07/11/2024 Telephone Hematology/Oncology [facility] [address] [place] [address] Jitendra Aguero MD [address] [facility] [phone] Test Results (Plts) Allergies No known active allergiesdocumented as of [...] for Nausea. 60 Tablet 3 12/09/2021 Active mobile melting gmbhTouch Delica Lancets 30GIndications:Type 2 diabetes mellitus with hemoglobin A1c goal of less than 8.0% ([facility]) Use to test blood sugar three times a day DXe11.9 300 Each 3 12/16/2021 Active mobile melting gmbhToTandem Verio Flex System w/Device Kit Use as [...] ([facility]) Inject 8 units with breakfast, [...] morning. 30 mL 3 04/05/2024 Active Pen [employer] 32G X 4 MM Use as directed. [...] 24 Hour (Imdur)Indications:C oronary artery disease involving [place] coronary artery of [place] heart without angina pectoris,HTN, goal below [...] 3553 0000 2079 7075 732 / DID: [id number] Matched Unrelated 10/24--- DPB1 Match ABO/Rh: A [...] Thrombocytopenia 12/06/2022 Last Assessment & Plan: Platelets 26675 on 03/20 Questionable hematuria Urinary incontinence 09/12/2022 [...] failure. Does not have any evidence of eyggt-nlskqt-dqpk disease Last Assessment & Plan: Continues to [...] -continue venlafaxine Coronary artery disease invo lving [place] coronary artery of [place] heart without angina pectoris 06/12/2017 Overview: S/P EDIL to LAD on 06/12/17 Last Assessment & Plan: No angina - Continue atorvastatin, isosorbide, metoprolol - no ASA due to thrombocytopenia Dyslipidemia, goal LDL below 70 11/25/2011 Last Assessment & Plan: Patient having no issues. She continues on Lipitor 40 mg daily Last lab I will was that I can find were from [phone] Assessment/plan: Dyslipidemia with patient currently taking Lipitor [...] mRNA, LNP-s, No Pre serve, 2-Dose Series ([employer]) 02/05/2021,01/08/2021 COVID-19, LNP-s, No Preserve , [...] Telephone Encounter - Makenzie Barth LPN - 07/11/2024 7:44 AM EDT Called and spoke with patient's daughter Juanita, reviewed lab results; Plt: 3 She verbalized understanding. Patient to receive 1 unit of platelets. Called [facility] blood bank. Spoke with Riki. Spoke with Madeline. Called [facility] central scheduling. Patient scheduled for today at 10:30 am. Patient's daughter verbalized understanding of appt time. Faxed order to [facility]/ blood bank. * Telephone Encounter - Makenzie Barth LPN - 07/11/2024 7:31 AM EDT ----- Message from Jitendra Aguero MD sent at 07/11/2024 6:59 AM EDT ----- Blood workup done on 07/10/2024: - WBC 12,600, H&H of 8.4/26, platelet count of 3000. [facility] No need for blood transfusion at this time. documented in this encounter Plan of Treatment Upcoming Encounters Date Type Department Care Team (Late st Contact Info) Description 07/11/2024 1:00 PM EDT Telemedicine Pharmacy, [address] [place] [address] [place] [address] 07/17/2024 7:10 AM EDT Laboratory Lab Mobile Phlebotomy [facility] [address] [place] [address] Mvmg, Gml Mobile Home Draw [address] [facility] [place] [address] 07/17/2024 9:00 AM EDT Office Visit Ophthalmology, [facility] [address] [place] [address] Fernando Damon DO [address] [place] [address] 07/24/2024 7:10 AM EDT Laboratory Lab Mobile Phlebotomy [facility] [address] [facility] [place] [address] Mvmg, Gml Mobile Home Draw [address] [facility] [place], [place] [address] 07/31/2024 7:10 AM EDT Laboratory Lab Mobile Phlebotomy [facility] [address] [facility] [place] [address] Mvmg, Gml Mobile Home Draw [address] [facility] [place], [place] [address] 08/07/2024 7:10 AM EDT Laboratory Lab Mobile Phlebotomy [facility] [address] [place] [address] Mvmg, Gml Mobile Home Draw [address] [facility] [place] [address] 08/13/2024 8:30 AM EDT [facility] Visit [facility], [facility] [address] [place] [address] Marisa Pacheco, TANYA [address] [place] [address] 08/27/2024 1:00 PM EDT Office Visit Pharmacy, [address] [place] [address] [place] [address] 10/16/2024 1:45 PM EST Office Visit Hematology/Oncology [facility] [address] [facility] [place] [phone] Jitendra Aguero MD [address] [facility] [place] [address] 12/24/2024 2:30 PM EST Nurse Only Ancillary [address] [place] [address] [place], Nurse [address] [place] [address] 01/13/2025 11:40 AM EST Office Visit Family Medicine [address] [place] [phone] Dhruv Moss MD [address] [place] [address] [place] [address] 07/21/2025 1:30 PM EDT Imaging Radiology [address] [place] [address] 08/04/2025 1:20 PM EDT Office Visit Family Medicine [address] [place] [phone] Dhruv Moss MD [address] [place] [address] [place] [address] Health Maintenance Due Date Last Done Comments [...] D LEVEL ONCE IN A LIFETIME-USE SMARTSET# [id number] Completed 05/11/2015 RETIRED - COLONOSCOPY-EVERY 5 YRS [...] this encounter Medical Devices Implanted Type Area Tableau Architect Device Identifier Shelf Expiration Date Model / Serial / Lot Port Pwr Mri Isp Profile - [id number] Implanted:Qty: 1 on 07/24/2020 by Akash Castillo MD at [facility] Right: Chest CR BARD : PERIPHERAL VASCULAR 04/12/2021 [id number] / / [id number] documented as of this encounter Advance Directives [...] Agents on File Name Relationship [facility] Juanita Silva Adult Child Health Care Agent Care Teams Gradall Operator Relationship Specialty Start Date End Date Dhruv Moss MD [address] [place] [address] [place] [address] PCP - General Family Medicine 08/27/21 documented as of this encounter
--- OUTSIDE RECORDS SUMMARY | 2024-10-10 00:39 | External Medical Summary ---
Author Name Unknown Address Unknown Organization K01:LABORATORY [facility] - [facility] [address] [place] [address] Laboratory Report Ordering Provider Test Date Status ANN MUNGUIA 07/10/2024 09:11:00 Final Observation Date Value Abnormality Reference (Units ) Status WBC, Total 07/10/2024 09:11:00 12.63 Above high normal 4.00-10.80 (K/uL) Final RBC 07/10/2024 09:11:00 2.49 3.85-5.15 (M/uL) Final Hemoglobin 07/10/2024 09:11:00 8.4 Below low normal 12.0-15.3 (g/dL) Final HCT 07/10/2024 09:11:00 26.0 Below low normal 36.0-45.2 (%) Final MCV 07/10/2024 09:11:00 104.4 81.5-97.5 (fL) Final MCH 07/10/2024 09:11:00 33.7 27.0-34.0 (pg) Final MCHC 07/10/2024 09:11:00 32.3 32.0-36.0 (g/dL) Final RDW 07/10/2024 09:11:00 21.4 11.5-15.5 (%) Final Platelets 07/10/2024 09:11:00 3 Below lower panic limits 140-400 (K/uL) Final MPV 07/10/2024 09:11:00 9.1 6.6-11.1 (fL) Final Nucleated erythrocytes/100 leukocytes [Ratio] in Blood by Automated count 07/10/2024 09:11:00 0 <=0 (/100 WBCs) Final Performing Location LABORATORY [facility] - [address] [place] [address]
--- OUTSIDE RECORDS SUMMARY | 2024-10-10 00:39 | External Medical Summary | Summary of Care ---
Author Name Unknown Organization [facility] Address [address] [facility] [address] Phone [phone] Care Team Providers Care Bond Trader Name Role Phone Dhruv Moss MD Primary Care Provide r Encounter Details Date Type Department Care Team (Late st Contact Info) Description 07/11/2024 Telephone Pharmacy, [address] [place] [phone] [facility] [phone] Allergies No known active allergiesdocumented as of [...] for Nausea. 60 Tablet 3 12/09/2021 Active Live ShuttleTouch Delica Lancets 30GIndications:Type 2 diabetes mellitus with hemoglobin A1c goal of less than 8.0% ([facility]) Use to test blood sugar three times a day DXe11.9 300 Each 3 12/16/2021 Active Live ShuttleToVirtualWorks Group Verio Flex System w/Device Kit Use as [...] less than 8.0% ([facility]) Inject 8 units with [...] morning. 30 mL 3 04/05/2024 Active Pen [place] 32G X 4 MM Use as directed. [...] 24 Hour (Imdur)Indications:C oronary artery disease involving [place] coronary artery of [place] heart without angina pectoris,HTN, goal below 140/90 [...] 3553 0000 2079 7075 732 / DID: [id number] Matched Unrelated 10/24--- DPB1 Match ABO/Rh: A [...] Thrombocytopenia 12/06/2022 Last Assessment & Plan: Platelets 54482 on 03/20 Questionable hematuria Urinary incontinence 09/12/2022 [...] failure. Does not have any evidence of euori-emtnyy-zljk disease Last Assessment & Plan: Continues to [...] -continue venlafaxine Coronary artery disease invo lving [place] coronary artery of [place] heart without angina pectoris 06/12/2017 Overview: S/P EDIL to LAD on 06/12/17 Last Assessment & Plan: No angina - Continue atorvastatin, isosorbide, metoprolol - no ASA due to thrombocytopenia Dyslipidemia, goal LDL below 70 11/25/2011 Last Assessment & Plan: Patient having no issues. She continues on Lipitor 40 mg daily Last lab I will was that I can find were from [phone] Assessment/plan: Dyslipidemia with patient currently taking Lipitor [...] mRNA, LNP-s, No Pre serve, 2-Dose Series ([employer]) 02/05/2021,01/08/2021 COVID-19, LNP-s, No Preserve , Ye-sucrose, Ages 12+ ([employer]) 12/06/2021 Pneumococcal Conjugate Vacc, 13 Valent (Prevnar) [...] Telephone Encounter - Makenzie Pool RPh - 07/11/2024 1:02 PM EDT Patient Phone Numbers Attempted to contact patient to complete CMR. Spoke with patient's daughter. Currently receiving treatment at [facility]. Call rescheduled to 07/22. Makenzie Pool RPh, PharmD Clinical Pharmacist - Paid Intern [facility] 07/11/2024, 1:05 PM [phone] documented in this encounter Plan of Treatment Upcoming Encounters Date Type Department Care Team (Late st Contact Info) Description 07/17/2024 7:10 AM EDT Laboratory Lab Mobile Phlebotomy [facility] [address] [place] [address] [address] Mvmg, Gml Mobile Home Draw [address] [place] [address] 07/17/2024 9:00 AM EDT Office Visit Ophthalmology, [facility] [address] [place] [address] Fernando Damon, DO 132 [place] [address] 07/22/2024 11:30 AM EDT Telemedicine Pharmacy, [address] [place] [address] [place] [address] 07/24/2024 7:10 AM EDT Laboratory Lab Mobile Phlebotomy [facility] [address] [place], [place] [address] Mvmg, Gml Mobile Home Draw [address] [employer] [place] [address] 07/31/2024 7:10 AM EDT Laboratory Lab Mobile Phlebotomy [facility] [address] [employer] [place] [address] Mvmg, Gml Mobile Home Draw [address] [employer] [place] [address] 08/07/2024 7:10 AM EDT Laboratory Lab Mobile Phlebotomy [facility] [address] [employer] [place] [address] Mvmg, Gml Mobile Home Draw [address] [employer] [place] [address] 08/13/2024 8:30 AM EDT [facility], [facility] [place] [address] Marisa Pacheco, TANYA [address] [place] [address] 08/27/2024 1:00 PM EDT Office Visit Pharmacy, [address] [place] [address] [place] [address] 10/16/2024 1:45 PM EST Office Visit Hematology/Oncology [facility] [address] [place] [phone] Jitendra Aguero MD [address] [place] [address] 12/24/2024 2:30 PM EST Nurse Only Ancillary [address] [place] [address] Cristina, Nurse [facility] [address] [place] [address] [place] [address] 01/13/2025 11:40 AM EST Office Visit [address] [place] [address] Dhruv Moss MD [address] [place] [address] [place] [address] 07/21/2025 1:30 PM EDT Imaging Radiology [address] [place] [address] 08/04/2025 1:20 PM EDT Office Visit [address] [place] [address] Dhruv Moss MD [address] [place] [address] [place] [address] Health Maintenance Due Date Last Done Comments [...] D LEVEL ONCE IN A LIFETIME-USE SMARTSET# 34081 Completed 05/11/2015 RETIRED - COLONOSCOPY-EVERY 5 YRS [...] this encounter Medical Devices Implanted Type Area Veterinarian Assistant Device Identifier Shelf Expiration Date Model / Serial / Lot Port Pwr Mri Isp Profile - [id number] Implanted:Qty: 1 on 07/24/2020 by Akash Castillo MD at OR [facility] Right: Chest CR BARD : PERIPHERAL VASCULAR 04/12/2021 [id number] / / [id number] documented as of this encounter Advance Directives [...] Healthcare Agent [facility] Communication Juanita Silva Adult Child Health Care Agent Care Teams Bond Trader Relationship Specialty Start Date End Date Dhruv Moss MD [address] [place] [address] PCP - General Family Medicine 08/27/21 documented as of this encounter
--- OUTSIDE RECORDS SUMMARY | 2024-10-10 00:39 | External Medical Summary | Summary of Care ---
Author Name Unknown Organization [facility] Address [address] [facility] [address] Phone [phone] Care Team Providers Care Roping Machine Tender Name Role Phone Dhruv Moss MD Primary Care Provide r Reason for Visit * Reason Onset Date Comments Medication Refill 07/16/2024 Encounter Details Date Type Department Care Team (Late st Contact Info) Description 07/16/2024 Refill Family Medicine [address] [phone] Dhruv Moss MD [address] [place] [address] [place] [address] MDS (myelodysplastic syndrome), high [...] for Nausea. 60 Tablet 3 12/09/2021 Active Motivity LabsTouch Delica Lancets 30GIndications:Type 2 diabetes mellitus with hemoglobin A1c goal of less than 8.0% ([facility]) Use to test blood sugar three times a day DXe11.9 300 Each 3 12/16/2021 Active Motivity LabsToShiftPlanning Verio Flex System w/Device Kit Use as [...] than 8.0% ([facility]) Inject 8 units with breakfast, 4 [...] morning. 30 mL 3 04/05/2024 Active Pen [place] 32G X 4 MM Use as directed. [...] 24 Hour (Imdur)Indications: Coronary artery disease involving [place] coronary artery of [place] heart without angina pectoris,HTN, goal below 140/90 [...] before bedtime. 180 Capsule 2 07/16/2024 Active Omeprazole 20 MG Oral Capsule Delayed Release (PriLOSEC)Indicatio ns:MDS (myelodysplastic syndrome), high grade (HCC) TAKE ONE CAPSULE BY MOUTH TWICE DAILY 180 Capsule 2 07/16/2024 07/16/20 Discontinu ed(Refill) Hospital, Clinic, or Other Facility [...] 3553 0000 2079 7075 732 / DID: [id number] Matched Unrelated 10/24--- DPB1 Match ABO/Rh: A [...] Thrombocytopenia 12/06/2022 Last Assessment & Plan: Platelets 89323 on 03/20 Questionable hematuria Urinary incontinence 09/12/2022 History of immunosuppression therapy 04/19/2022 ACP (advance care planning) 03/10/2022 Last Assessment & Plan: ACP nose done by Lyudmila Sterilng December 15, 2021. No additional discussions occurred [...] failure. Does not have any evidence of hdlfj-sorhgb-qtaz disease Last Assessment & Plan: Continues to [...] -continue venlafaxine Coronary artery disease invo lving [place] coronary artery of [place] heart without angina pectoris 06/12/2017 Overview: S/P EDIL to LAD on 06/12/17 Last Assessment & Plan: No angina - Continue atorvastatin, isosorbide, metoprolol - no ASA due to thrombocytopenia Dyslipidemia, goal LDL below 70 11/25/2011 Last Assessment & Plan: Patient having no issues. She continues on Lipitor 40 mg daily Last lab I will was that I can find were from [phone] Assessment/plan: Dyslipidemia with patient currently taking Lipitor [...] Telephone Encounter - Dhruv Moss MD - 07/16/2024 2:59 PM EDT Signed Prescriptions: Disp Refills Omeprazole 20 MG Oral Capsule Delayed Rele*180 Ca*2 Sig: Take 1 Capsule by mouth in the morning and 1 Capsule before bedtime. Authorizing Provider: DHRUV MOSS * Telephone Encounter - Maya Quinones RN - 07/16/2024 2:55 PM EDTPending Prescriptions: Disp Refills Omeprazole 20 MG Oral Capsule Delayed Rele*180 Ca*2 Sig: Take 1 Capsule by mouth in the morning and 1 Capsule before bedtime. * Telephone Encounter - Vickie Gonzalez OSA - 07/16/2024 2:17 PM EDT Did you pend patient's preferred pharmacy and medication before forwarding?yes Pharmacy: No prescriptions requested or ordered in this encounter Last Visit: 07/02/2024 (in office), Visit date not found (telemedicine) Next Visit: 01/13/2025 If no future appointments scheduled, and last appointment is greater than a year ago, please schedule patient for a follow-up appointment Last date the medication was ordered: [id number] Is this request for a controlled substance?No Urine Drug Screen:No results found. However, due to the size of the patient record, not all encounters were searched. Please check Results Review for a complete set of results. Patient Phone Numbers Labs: Lab Results Component Value Date/Time CREAT 1.0 06/26/2024 09:20 AM CREAT 0.7 12/10/2020 12:29 PM POTASSIUM 4.7 06/26/2024 09:20 AM POTASSIUM 4.4 12/10/2020 12:29 PM TSH 5.69 (H) 01/02/2024 02:49 PM TSH 6.85 (H) 10/30/2020 09:28 AM LDL 68 12/27/2023 11:00 AM LDL 99 09/12/2022 10:09 AM LDL 136 (H) 10/01/2020 03:24 PM LDL UNINTERPRETABLE RESULT 05/09/2019 09:06 AM ALT 21 06/26/2024 09:20 AM ALT 25 12/10/2020 12:29 PM HGBA1C 6.5 (H) 05/22/2024 08:27 AM HGBA1C 6.1 (H) 10/01/2020 03:24 PM documented in this encounter Plan of Treatment Upcoming Encounters Date Type Department Care Team (Late st Contact Info) Description 07/17/2024 9:00 AM EDT Office Visit Ophthalmology, [facility] [address] [place] [address] Fernando Damon DO 132 [place] [address] 07/22/2024 11:30 AM EDT Telemedicine Pharmacy, [address] [place] [address] [place] [address] 07/24/2024 7:10 AM EDT Laboratory Lab Mobile Phlebotomy [facility] [address] [employer] [place] [address] Mvmg, Gml Mobile Home Draw [address] [employer] [place] [address] 07/31/2024 7:10 AM EDT Laboratory Lab Mobile Phlebotomy [facility] [address] [employer] [place] [address] Mvmg, Gml Mobile Home Draw [address] [place] [address] 08/07/2024 7:10 AM EDT Laboratory Lab Mobile Phlebotomy [facility] [address] [employer] [place] [address] Mvmg, Gml Mobile Home Draw [address] [place] [address] 08/13/2024 8:30 AM EDT [facility], [facility] [address] [place] [address] Marisa Pacheco, RN 132 [place] [address] 08/27/2024 1:00 PM EDT Office Visit Pharmacy, [address] [place] [address] [place] [address] 10/16/2024 1:45 PM EST Office Visit Hematology/Oncology [facility] [place] [phone] Jitendra Aguero MD 200 [facility] [place] [address] 12/24/2024 2:30 PM EST Nurse Only Ancillary [address] [place] [address] [place], Nurse [address] [place] [address] 01/13/2025 11:40 AM EST Office Visit Family Medicine [address] [place] [address] Dhruv Moss MD [address] [place] [address] [place] [address] 07/21/2025 1:30 PM EDT Imaging Radiology [address] [place] [address] 08/04/2025 1:20 PM EDT Office Visit Family [address] [place] [address] Dhruv Moss MD [address] [place] [address] [place] [address] Health Maintenance Due Date Last Done Comments [...] D LEVEL ONCE IN A LIFETIME-USE SMARTSET# 79614 Completed 05/11/2015 RETIRED - COLONOSCOPY-EVERY 5 YRS [...] this encounter Medical Devices Implanted Type Area Editorial Director Device Identifier Shelf Expiration Date Model / Serial / Lot Port Pwr Mri Isp Profile - [id number] Implanted:Qty: 1 on 07/24/2020 by Akash Castillo MD at OR [facility] Right: Chest CR BARD : PERIPHERAL VASCULAR 04/12/2021 [id number] / / [id number] documented as of this encounter Visit Diagnoses [...] Adult Child Health Care Agent Care Teams Roping Machine Tender Relationship Specialty Start Date End Date Dhruv Moss MD [address] [place], [place] [address] [address] PCP - General Family Medicine 08/27/21 documented as of this encounter
--- OUTSIDE RECORDS SUMMARY | 2024-10-10 00:39 | External Medical Summary ---
Author Name Unknown Address Unknown Organization K0G:LABORATORY [facility] - [address] [place] [address] Laboratory Report Ordering Provider Test Date Status ANN MUNGUIA 07/17/2024 10:18:23 Final Observation Date Value Abnormality Reference (Units ) Status WBC, Total 07/17/2024 10:18:23 19.41 Above high normal 4.00-10.80 (K/uL) Final RBC 07/17/2024 10:18:23 2.13 3.85-5.15 (M/uL) Final Hemoglobin 07/17/2024 10:18:23 7.3 Below low normal 12.0-15.3 (g/dL) Final HCT 07/17/2024 10:18:23 22.1 Below low normal 36.0-45.2 (%) Final MCV 07/17/2024 10:18:23 103.8 81.5-97.5 (fL) Final MCH 07/17/2024 10:18:23 34.3 27.0-34.0 (pg) Final MCHC 07/17/2024 10:18:23 33.0 32.0-36.0 (g/dL) Final RDW 07/17/2024 10:18:23 21.7 11.5-15.5 (%) Final Platelets 07/17/2024 10:18:23 <10 Below lower panic limits 140-400 (K/uL) Final Results rechecked.
null MPV 07/17/2024 10:18:23 Final No result - abnormal platele t distribution. [facility] [address] [place] [address]
--- OUTSIDE RECORDS SUMMARY | 2024-10-10 00:40 | External Medical Summary | Summary of Care ---
Author Name Unknown Organization [facility] Address [address] [facility] [address] Phone [phone] Care Team Providers Care Jewelry Casting Model Maker Apprentice Name Role Phone Dhruv Moss MD Primary Care Provide r Encounter Details Date Type Department Care Team (Late st Contact Info) Description 07/04/2024 Result Scan Unspecified Department [facility] [id number] <No scans attached> Allergies No known active [...] day DXe11.9 300 Each 3 12/16/2021 Active SumomiTouch Verio Flex System w/Device Kit Use as [...] morning. 30 mL 3 04/05/2024 Active Pen [place] 32G X 4 MM Use as directed. [...] 24 Hour (Imdur)Indications:C oronary artery disease involving robinson coronary artery of robinson heart without angina pectoris,HTN, goal below 140/90 [...] 3553 0000 2079 7075 732 / DID: [id number] Matched Unrelated 10/24--- DPB1 Match ABO/Rh: A [...] Thrombocytopenia 12/06/2022 Last Assessment & Plan: Platelets 07806 on 03/20 Questionable hematuria Urinary incontinence 09/12/2022 [...] failure. 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 She continues on Lipitor 40 mg daily Last lab I will was that I can find were from [id number] Assessment/plan: Dyslipidemia with patient currently taking Lipitor [...] mRNA, LNP-s, No Pre serve, 2-Dose Series (Sighter) 02/05/2021,01/08/2021 COVID-19, LNP-s, No Preserve , Ye-sucrose, [...] Department Care Team (Latest Contact Info) Description 07/05/2024 9:15 AM EDT Office Visit Hematology/Oncology [facility] 200 [facility] [place] [phone] Jitendra Aguero MD 200 [facility] [place] [address] 07/10/2024 7:10 AM EDT Laboratory Lab Mobile Phlebotomy [facility] [address] [place] [address] Mvmg, Gml Mobile Home Draw [address] [place] [address] 07/11/2024 1:00 PM EDT Telemedicine Pharmacy, [address] [place] [address] [place] [address] 07/12/2024 1:41 PM EDT Hospital Encounter OR [facility], Operating Room, [facility] - 4th Floor 400 [place] [phone] Noemy Carrasco, DO [address] [place] [address] 07/12/2024 1:41 PM EDT - 07/12/2024 2:19 PM EDT Surgery OR [facility], Operating Room, [facility] - 4th Floor 400 [place] [address] Noemy Carrasco, DO [address] [place] [address] COLONOSCOPY FLEXIBLE PROXIMAL DIAGNOSTIC 07/17/2024 7:10 AM EDT Laboratory Lab Mobile Phlebotomy [facility] [address] [place] [address] Mvmg, Gml Mobile Home Draw [address] [place] [address] 07/24/2024 7:10 AM EDT Laboratory Lab Mobile Phlebotomy [facility] [address] [place] [address] Mvmg, Gml Mobile Home Draw [address] [place] [address] 07/31/2024 7:10 AM EDT Laboratory Lab Mobile Phlebotomy [facility] [address] [place], [place] [address] Mvmg, Gml Mobile Home Draw [address] [place] [address] 08/07/2024 7:10 AM EDT Laboratory Lab Mobile Phlebotomy [facility] [address] [place] [address] Mvmg, Gml Mobile Home Draw [address] [place] [address] 08/13/2024 8:30 AM EDT Home Visit [facility] [place] [address] Marisa Pacheco, TANYA [address] [place] [address] 08/27/2024 1:00 PM EDT Office Visit Pharmacy, [address] [place] [address] [place] [address] 12/24/2024 2:30 PM EST Nurse Only Ancillary [address] [place] [address] Cristina, Nurse [facility] [address] [place] [address] [place] [address] 01/13/2025 11:40 AM EST Office Visit [address] [place] [phone] Dhruv Moss MD [address] [place] [address] [place] [address] 07/21/2025 1:30 PM EDT Imaging Radiology [address] [place] [address] 08/04/2025 1:20 PM EDT Office Visit [address] [place] [phone] Dhruv Moss MD [address] [place] [address] [place] [address] Scheduled Procedures Name Priority Associated Diagnoses Date/Ti [...] D LEVEL ONCE IN A LIFETIME-USE SMARTSET# [id number] Completed 05/11/2015 RETIRED - COLONOSCOPY-EVERY 5 YRS [...] this encounter Medical Devices Implanted Type Area Registrar Assistant Device Identifier Shelf Expiration Date Model / Serial / Lot Port Pwr Mri Isp Profile - [id number] Implanted:Qty: 1 on 07/24/2020 by Akash Castillo MD at OR [facility] Right: Chest CR BARD : PERIPHERAL VASCULAR 04/12/2021 [id number] / / [id number] documented as of this encounter Procedures Procedure Name Priority Date/Time Associated Diagnosis Comments OUTSIDE LAB RESULTS 07/04/2024 documented in this encounter Results * OUTSIDE LAB RESULTS (07/04/2024) 07/04/2024 Jitendra Aguero MD LABORATORY documented in this [...] Adult Child Health Care Agent Care Teams Jewelry Casting Model Maker Apprentice Relationship Specialty Start Date End Date Dhruv Moss MD [address] [place] [address] [place] [address] PCP - General Family Medicine 08/27/21 documented as of this encounter
--- OUTSIDE RECORDS SUMMARY | 2024-10-10 00:40 | External Medical Summary | Summary of Care ---
Author Name Unknown Organization [facility] Address [address] [facility] [address] Phone [phone] Care Team Providers Care Front Office Clerk Name Role Phone Dhruv Moss MD Primary Care Provide r Reason for Visit * Reason Onset Date Comments Test Results 07/04/2024 Encounter Details Date Type Department Care Team (Late st Contact Info) Description 07/04/2024 Telephone Hematology/Oncology [facility] [address] [place] [address] Jitendra Aguero MD [address] [place] [address] Test Results Allergies No known active allergiesdocumented as of this encounter (statuses as of 07/04/2024) Medications Medication Sig Dispensed Refills Start Date [...] for Nausea. 60 Tablet 3 12/09/2021 Active Blackaeon InternationalTouch Delica Lancets 30GIndications:Type 2 diabetes mellitus with hemoglobin A1c goal of less than 8.0% ([facility]) Use to test blood sugar three times a day DXe11.9 300 Each 3 12/16/2021 Active Blackaeon InternationalToCelles Verio Flex System w/Device Kit Use as [...] morning. 30 mL 3 04/05/2024 Active Pen [place] 32G X 4 MM Use as directed. [...] 24 Hour (Imdur)Indications:C oronary artery disease involving yankton coronary artery of yankton heart without angina pectoris,HTN, goal below 140/90 [...] as of this encounter (statuses as of 07/04/2024) Active Problems Patient Care Coordination No te Formatting of this note migh t be different from the original. Date of Transplant: 09/01/2021 Conditioning Regimen: Fludarabine / Busulfan 2 with post-transplant Cytoxan ABO/Rh: A Positive CMV status: CMV Positive--- GRID: [id number] 0000 2079 7075 732 / DID: [id number] Matched Unrelated 10/24--- DPB1 Match ABO/Rh: A [...] Thrombocytopenia 12/06/2022 Last Assessment & Plan: Platelets 68710 on 03/20 Questionable hematuria Urinary incontinence 09/12/2022 [...] failure. Does not have any evidence of puktk-aepexq-nirm disease Last Assessment & Plan: Continues to [...] -continue venlafaxine Coronary artery disease invo lving yankton coronary artery of yankton heart without angina pectoris 06/12/2017 Overview: S/P EDIL to LAD on 06/12/17 Last Assessment & Plan: No angina - Continue atorvastatin, isosorbide, metoprolol - no ASA due to thrombocytopenia Dyslipidemia, goal LDL below 70 11/25/2011 Last Assessment & Plan: Patient having no issues. She continues on Lipitor 40 mg daily Last lab I will was that I can find were from [phone] Assessment/plan: Dyslipidemia with patient currently taking Lipitor [...] as of this encounter (statuses as of 07/04/2024) Resolved Problems Problem Noted Date Diagnosed Date [...] as of this encounter (statuses as of 07/04/2024) Immunizations Name Administration Dates Next Due COVID-19 mRNA, LNP-s, No Pre serve, 2-Dose Series ([employer]) 02/05/2021,01/08/2021 COVID-19, LNP-s, No Preserve , Ye-sucrose, [...] Telephone Encounter - Bogdan Gutiérrez RN - 07/04/2024 4:03 PM EDT Gastro/Dr. Crocker- anastacio. Pt is scheduled 07/12 for Colonoscopy. * Telephone Encounter - Jitendra Aguero MD - 07/04/2024 1:41 PM EDT Because of significantly low blood counts mainly thrombocytopenia, we should not do colonoscopy in her case unless it is absolutely must. * Telephone Encounter - Makenzie Barth LPN - 07/04/2024 9:20 AM EDT 9:12 amSpoke with patient's daughter, she states that the patient will not be able to make it by 10:30 am but can be there between 10:30 am and 11:00 am today. 09:17 am: Called and spoke with Madeline at [facility], per Madeline if the patient arrives late they will still be ableto transfuse her. 9:20 am: Spoke with Juanita, patient's daughter, made her aware the patient is ok to be there between 10:30am and 11:00am. She verbalized understanding and states the patient is going to be heading to [facility] shortly. * Telephone Encounter - Kasia Duran OSA - 07/04/2024 9:12 AM EDT Pt's daughter Juanita calling in to speak with Makenzie in regards to possible blood transfusion- call was warm transferred to nurse, Makenzie Barth. * Telephone Encounter - Makenzie Barth LPN - 07/04/2024 9:[address] Aguero Patient's daughter Juanita, is asking if there is any concern with patient having her colonoscopy at [facility] on 07/12/2024? She states she is concerned about the patient's risk of bleeding. * Telephone Encounter - Makenzie Barth LPN - 07/04/2024 9:02 AM EDT Reviewed lab results with patient's daughter, Juanita: Hgb: 6.0 Plt: 4 Patient's daughter verbalized understanding. Patient to receive 2 units prbc, 1 unit platelets. Called [facility] blood bank. Spoke with Kaleb. Spoke with Margoth at [facility] Called [facility] central scheduling. Patient scheduled for today at 10:30 am. Patient verbalized understanding of appt time. Faxed order to [facility]/ blood bank. * Telephone Encounter - Makenzie Barth LPN - 07/04/2024 8:55 AM EDT ----- Message from Jitendra Aguero MD sent at 07/04/2024 6:48 AM EDT ----- Blood workup done on 07/03/2024: - WBC 11,000, immature WBCs noted - H&H of 6/18.5, platelet count of 4000. Would like to transfuse 2 units of PRBC and one bag of platelet.. documented in this encounter Plan of Treatment Upcoming Encounters Date Type Department Care Team (Latest Contact Info) Description 07/05/2024 9:15 AM EDT Office [facility] [employer] [address] [place] [address] Jitendra Aguero MD 200 [facility] [place] [address] 07/10/2024 7:10 AM EDT Laboratory Lab Mobile Phlebotomy [facility] [address] [place] [address] Mvmg, Gm Mobile Home Draw [address] [place] [address] 07/11/2024 1:00 PM EDT Telemedicine Pharmacy, [address] [place] [address] [place] [address] 07/12/2024 1:41 PM EDT Hospital Encounter OR [facility], Operating Room, [facility] - 4th Floor [address] [place] [phone] Noemy Carrasco, DO [address] [place] [address] 07/12/2024 1:41 PM EDT - 07/12/2024 2:19 PM EDT Surgery OR [facility], Operating Room, [facility] - 4th Floor [address] [place] [phone] Noemy Carrasco, DO [address] [place] [address] COLONOSCOPY FLEXIBLE PROXIMAL DIAGNOSTIC 07/17/2024 7:10 AM EDT Laboratory Lab Mobile Phlebotomy [facility] [address] [place] [address] Mvmg, Gml Mobile Home Draw [address] [employer] [place], [place] [address] 07/24/2024 7:10 AM EDT Laboratory Lab Mobile Phlebotomy [facility] [address] [employer] [place], [place] [address] Mvmg, Gml Mobile Home Draw [address] [place] [address] 07/31/2024 7:10 AM EDT Laboratory Lab Mobile Phlebotomy [facility] [address] [place], [place] [address] Mvmg, Gml Mobile Home Draw [address] [place] [address] 08/07/2024 7:10 AM EDT Laboratory Lab Mobile Phlebotomy [facility] [address] [place], [place] [address] Mvmg, Gml Mobile Home Draw [address] [place], [place] [address] 08/13/2024 8:30 AM EDT [facility] [place] [address] Marisa Pacheco, TANYA [address] [place] [address] 08/27/2024 1:00 PM EDT Office Visit Pharmacy, [address] [place] [address] [place] [address] 12/24/2024 2:30 PM EST Nurse Only Ancillary [address] [place] [address] [place], Nurse [address] [place] [address] 01/13/2025 11:40 AM EST Office Visit Family Medicine [address] [address] Dhruv Moss MD [address] [place] [address] [place] [address] 07/21/2025 1:30 PM EDT Imaging Radiology [address] [place] [address] 08/04/2025 1:20 PM EDT Office Visit Family Medicine [address] [place] [address] Dhruv Moss MD [address] [place] [address] [place] [address] Scheduled Procedures Name Priority Associated Diagnoses Date/Ti [...] D LEVEL ONCE IN A LIFETIME-USE SMARTSET# [id number] Completed 05/11/2015 RETIRED - COLONOSCOPY-EVERY 5 YRS [...] this encounter Medical Devices Implanted Type Area Turbine Engineer Device Identifier Shelf Expiration Date Model / Serial / Lot Port Pwr Mri Isp Profile - [id number] Implanted:Qty: 1 on 07/24/2020 by Akash Castillo MD at [facility] Right: Chest CR BARD : PERIPHERAL VASCULAR 04/12/2021 [id number] / / [id number] documented as of this encounter Advance Directives [...] Agents on File Name Relationship Healthcare Agent [facility] Communication Juanita Silva Adult Child Health Care Agent Care Teams Front Office Clerk Relationship Specialty Start Date End Date Dhruv Moss MD [address] [place] [address] [place] [address] PCP - General Family Medicine 08/27/21 documented as of this encounter
--- OUTSIDE RECORDS SUMMARY | 2024-10-10 00:40 | External Medical Summary | Summary of Care ---
Author Name Unknown Organization [facility] [address] [facility] [address] Phone [phone] Care Team Providers Care Carpenter Packing Name Role Phone Dhruv Moss MD Primary Care Provide r Reason for Visit * Reason Onset Date Comments Test Results 07/04/2024 Encounter Details Date Type Department Care Team (Late st Contact Info) Description 07/04/2024 Telephone Hematology/Oncology [facility] [address] [place] [address] Jitendra Aguero MD [address] [place] [address] Test Results Allergies No known active allergiesdocumented [...] for Nausea. 60 Tablet 3 12/09/2021 Active Homestay.comTouch Delica Lancets 30GIndications:Type 2 diabetes mellitus with hemoglobin A1c goal of less than 8.0% ([facility]) Use to test blood sugar three times a day DXe11.9 300 Each 3 12/16/2021 Active Homestay.comToTastemakerX Verio Flex System w/Device Kit Use as [...] hemoglobin A1c goal of less than 8.0% ([facility]) Inject 8 units with [...] morning. 30 mL 3 04/05/2024 Active Pen [place] 32G X 4 MM Use as directed. [...] Hour (Imdur)Indications:C oronary artery disease involving confederated salish coronary artery of confederated salish heart without angina pectoris,HTN, goal below 140/90 [...] 3553 0000 2079 7075 732 / DID: [id number] Matched Unrelated 10/24--- DPB1 Match ABO/Rh: A [...] Thrombocytopenia 12/06/2022 Last Assessment & Plan: Platelets 21038 on 03/20 Questionable hematuria Urinary incontinence 09/12/2022 [...] failure. Does not have any evidence of inccu-xjnzny-zpfh disease Last Assessment & Plan: Continues to [...] venlafaxine Coronary artery disease invo lving confederated salish coronary artery of confederated salish heart without angina pectoris 06/12/2017 Overview: S/P EDIL to LAD on 06/12/17 Last Assessment & Plan: No angina - Continue atorvastatin, isosorbide, metoprolol - no ASA due to thrombocytopenia Dyslipidemia, goal LDL below 70 11/25/2011 Last Assessment & Plan: Patient having no issues. She continues on Lipitor 40 mg daily Last lab I will was that I can find were from [id number] Assessment/plan: Dyslipidemia with patient currently taking Lipitor [...] mRNA, LNP-s, No Pre serve, 2-Dose Series ([employer]) 02/05/2021,01/08/2021 COVID-19, LNP-s, No Preserve , Ye-sucrose, [...] am: Called and spoke with Madeline at [facility], per Madeline if the patient arrives late they will still be ableto transfuse her. 9:20 am: Spoke with Juanita, patient's daughter, made her aware the patient is ok to be there between 10:30am and 11:00am. She verbalized understanding and states the patient is going to be heading to [facility] shortly. * Telephone Encounter - [...] concern with patient having her colonoscopy at [facility] on 07/12/2024? She states she is concerned about the patient's risk of bleeding. * Telephone Encounter - Makenzie Barth LPN - 07/04/2024 9:02 AM EDT Reviewed lab results with patient's daughter, Juanita: Hgb: 6.0 Plt: 4 Patient's daughter verbalized understanding. Patient to receive 2 units prbc, 1 unit platelets. Called [facility] blood bank. Spoke with Kaleb. Spoke with Margoth at [facility] Called [facility] central scheduling. Patient scheduled for today at 10:30 am. Patient verbalized understanding of appt time. Faxed order to [facility]/ blood bank. * Telephone Encounter - Makenzie [...] 07/05/2024 9:15 AM EDT [facility] [employer] [facility] [address] [place] [address] Jitendra Aguero MD 200 [facility] [place] [address] 07/10/2024 7:10 AM EDT Laboratory Lab Mobile Phlebotomy [facility] [address] [employer] [place] [address] Mvmg, Gm Mobile Home Draw [address] [employer] [place] [address] 07/11/2024 1:00 PM EDT Telemedicine Pharmacy, [address] [place] [address] [place] [address] 07/12/2024 1:41 PM EDT Hospital Encounter OR [facility], Operating Room, [facility] - 4th Floor [address] [place] [phone] Noemy Carrasco, DO [address] [place] [address] 07/12/2024 1:41 PM EDT - 07/12/2024 2:19 PM EDT Surgery OR [facility], Operating Room, [facility] - 4th Floor [address] [place] [phone] Noemy Carrasco, DO [address] [place] [address] COLONOSCOPY FLEXIBLE PROXIMAL DIAGNOSTIC 07/17/2024 7:10 AM EDT Laboratory Lab Mobile Phlebotomy [facility] [address] [employer] [place] [address] Mvmg, Gml Mobile Home Draw [address] [employer] [place], [place] [address] 07/24/2024 7:10 AM EDT Laboratory Lab Mobile Phlebotomy M[facility] [address] [employer] [place], [place] [address] Mvmg, Gml Mobile Home Draw [address] [place] [address] 07/31/2024 7:10 AM EDT Laboratory Lab Mobile Phlebotomy M[facility] [address] [employer] [place], [place] [address] Mvmg, Gml Mobile Home Draw [address] [place] [address] 08/07/2024 7:10 AM EDT Laboratory Lab Mobile Phlebotomy M[facility] [address] [employer] [place], [place] [address] Mvmg, Gml Mobile Home Draw [address] [employer] [place], [place] [address] 08/13/2024 8:30 AM EDT [facility] [place] [address] Marisa Pacheco, TANYA [address] [place] [address] 08/27/2024 1:00 PM EDT Office Visit Pharmacy, [address] [place] [address] [place] [address] 12/24/2024 2:30 PM EST Nurse Only Ancillary [address] [place] [address] [place], Nurse [address] [place] [address] 01/13/2025 11:40 AM EST Office Visit Family Medicine [address] [address] Dhruv Moss MD [address] [place] [address] [place] [address] 07/21/2025 1:30 PM EDT Imaging Radiology [address] [place] [address] 08/04/2025 1:20 PM EDT Office Visit Family Medicine [address] [place] [address] Dhruv Moss MD [address] [place] [address] [place] [address] Scheduled Procedures Name Priority Associated Diagnoses Date/Ti [...] D LEVEL ONCE IN A LIFETIME-USE SMARTSET# [id number] Completed 05/11/2015 RETIRED - COLONOSCOPY-EVERY 5 YRS [...] this encounter Medical Devices Implanted Type Area Wastewater Treatment Plant Attendant Device Identifier Shelf Expiration Date Model / Serial / Lot Port Pwr Mri Isp Profile - [id number] Implanted:Qty: 1 on 07/24/2020 by [facility]ash Castillo MD at [facility] Right: Chest CR BARD : PERIPHERAL VASCULAR 04/12/2021 [id number] / / [id number] documented as of this encounter Advance Directives [...] Agents on File Name Relationship Healthcare Agent [facility] Communication Juanita Silva Adult Child Health Care Agent Care Teams Carpenter Packing Relationship Specialty Start Date End Date Dhruv Moss MD [address] [place] [address] [place] [address] PCP - General Family Medicine 08/27/21 documented as of this encounter
--- OUTSIDE RECORDS SUMMARY | 2024-10-10 00:40 | External Medical Summary | Summary of Care ---
Author Name Unknown Organization [facility] Address [address] [facility] [address] Phone [phone] Care Team Providers Care School Business Administrator Name Role Phone Dhruv Moss MD Primary Care Provide r Reason for Visit * Reason Onset Date Comments Test Results 07/04/2024 Encounter Details Date Type Department Care Team (Late st Contact Info) Description 07/04/2024 Telephone Hematology/Oncology [facility] [address] [place] [address] Jitendra Aguero MD [address] [place] [address] Test Results Allergies No known active allergiesdocumented [...] for Nausea. 60 Tablet 3 12/09/2021 Active AppsFunderTouch Delica Lancets 30GIndications:Type 2 diabetes mellitus with hemoglobin A1c goal of less than 8.0% ([facility]) Use to test blood sugar three times a day DXe11.9 300 Each 3 12/16/2021 Active [employer]Funder[employer]ury[employer] Verio Flex System w/Device Kit Use as [...] morning. 30 mL 3 04/05/2024 Active Pen [place] 32G X 4 MM Use as directed. [...] 3553 0000 2079 7075 732 / DID: [id number] Matched Unrelated 10/24--- DPB1 Match ABO/Rh: A [...] Thrombocytopenia 12/06/2022 Last Assessment & Plan: Platelets 52027 on 03/20 Questionable hematuria Urinary incontinence 09/12/2022 [...] failure. Does not have any evidence of unsze-mpaztz-ksvl disease Last Assessment & Plan: Continues to [...] was that I can find were from [id number] Assessment/plan: Dyslipidemia with patient currently taking Lipitor [...] mRNA, LNP-s, No Pre serve, 2-Dose Series (CBIT A/S) 02/05/2021,01/08/2021 COVID-19, LNP-s, No Preserve , Ye-sucrose, [...] Encounter - Bogdan Gutiérrez RN - 07/04/2024 4:[address] Crocker "Ok to cancel colonoscopy, no need to reschedule." I called patients daughter Juanita and advised. * Telephone Encounter - Bogdan Gutiérrez RN - 07/04/2024 4:03 PM EDT Gastro/Dr. Crocker- guillermo. Pt is scheduled 07/12 for Colonoscopy. * [...] am: Called and spoke with Madeline at [facility], per Madeline if the patient arrives late they will still be ableto transfuse her. 9:20 am: Spoke with Juanita, patient's daughter, made her aware the patient is ok to be there between 10:30am and 11:00am. She verbalized understanding and states the patient is going to be heading to [facility] shortly. * Telephone Encounter - Kasia Duran [...] concern with patient having her colonoscopy at [facility] on 07/12/2024? She states she is concerned about the patient's risk of bleeding. * Telephone Encounter - Makenzie Barth LPN - 07/04/2024 9:02 AM EDT Reviewed lab results with patient's daughter, Juanita: Hgb: 6.0 Plt: 4 Patient's daughter verbalized understanding. Patient to receive 2 units prbc, 1 unit platelets. Called [facility] blood bank. Spoke with Kaleb. Spoke with Margoth at [facility] Called [facility] central scheduling. Patient scheduled for today at 10:30 am. Patient verbalized understanding of appt time. Faxed order to [facility]/ blood bank. * Telephone Encounter - Makenzie [...] Office Visit Hematology/Oncology [place] [facility] [address] [facility] [place] [phone] Jitendra Aguero MD [address] [place] [address] 07/10/2024 7:10 AM EDT Laboratory Lab Mobile Phlebotomy [facility] [address] [place] [address] Mvmg, Gml Mobile Home Draw [address] [place] [address] 07/11/2024 1:00 PM EDT Telemedicine Pharmacy, [address] [place] [address] [place] [address] 07/12/2024 1:41 PM EDT Hospital Encounter OR GL, Operating Room, [facility] - 4th Floor [address] [place] [phone] Noemy Carrasco, DO [address] [place] [address] 07/12/2024 1:41 PM EDT - 07/12/2024 2:19 PM EDT Surgery OR [facility], Operating Room, [facility] - 4th Floor [address] [place] [address] Noemy Carrasco DO [address] [place] [address] COLONOSCOPY FLEXIBLE PROXIMAL DIAGNOSTIC 07/17/2024 7:10 AM EDT Laboratory Lab Mobile Phlebotomy [facility] [address] [facility], [place] [address] Mvmg, Gml Mobile Home Draw [address] [place], [place] [address] 07/24/2024 7:10 AM EDT Laboratory Lab Mobile Phlebotomy [facility] [address] [place] [address] Mvmg, Gml Mobile Home Draw [address] [place] [address] 07/31/2024 7:10 AM EDT Laboratory Lab Mobile Phlebotomy [facility] [address] [place] [address] Mvmg, Gml Mobile Home Draw [address] [place] [address] 08/07/2024 7:10 AM EDT Laboratory Lab Mobile Phlebotomy [facility] [address] [place], [place] [address] Mvmg, Gml Mobile Home Draw [address] [place] [address] 08/13/2024 8:30 AM EDT Home Visit [facility] [place], [facility] [address] [address] Marisa Pacheco, TANYA [address] [place] [address] 08/27/2024 1:00 PM EDT Office Visit Pharmacy, [address] [place] [address] [place] [address] 12/24/2024 2:30 PM EST Nurse Only Ancillary [address] [place] [address] Cristina, Nurse Annual [facility]ness [address] [place] [address] [place] [address] 01/13/2025 11:40 AM EST Office Visit Family [address] [place] [phone] Dhruv Moss MD [address] [place] [address] [place] [address] 07/21/2025 1:30 PM EDT Imaging Radiology [address] [place] [address] 08/04/2025 1:20 PM EDT Office Visit [address] [place] [phone] Dhruv Moss MD [address] [place] [address] [place] [address] Scheduled Procedures Name Priority Associated Diagnoses Date/Ti [...] D LEVEL ONCE IN A LIFETIME-USE SMARTSET# 31222 Completed 05/11/2015 RETIRED - COLONOSCOPY-EVERY 5 YRS [...] this encounter Medical Devices Implanted Type Area Salesperson Furs Device Identifier Shelf Expiration Date Model / Serial / Lot Port Pwr Mri Isp Profile - [id number] Implanted:Qty: 1 on 07/24/2020 by Akash Castillo MD at OR [facility] Right: Chest CR BARD : PERIPHERAL VASCULAR 04/12/2021 [id number] / / [id number] documented as of this encounter Advance Directives [...] Agents on File Name Relationship Healthcare Agent [facility] p Communication Juanita Dalton Adult Child Health Care Agent Care Teams School Business Administrator Relationship Specialty Start Date End Date Dhruv Moss MD [address] [place] [address] [place] [address] PCP - General Family Medicine 08/27/21 documented as of this encounter
--- OUTSIDE RECORDS SUMMARY | 2024-10-10 00:41 | External Medical Summary | Summary of Care ---
Author Name Unknown Organization [facility] Address [address] [facility] [address] Phone [phone] Care Team Providers Care Hop Picker Name Role Phone Dhruv Moss MD Primary Care Provide r Reason for Visit * Reason Onset Date Comments Test Results 07/04/2024 Encounter Details Date Type Department Care Team (Late st Contact Info) Description 07/04/2024 Telephone Hematology/Oncology [facility] [address] [place] [address] Jitendra Aguero MD [address] [place] [address] Test Results Allergies No known active allergiesdocumented [...] for Nausea. 60 Tablet 3 12/09/2021 Active JustInvestingTouch Delica Lancets 30GIndications:Type 2 diabetes mellitus with hemoglobin A1c goal of less than 8.0% ([facility]) Use to test blood sugar three times a day DXe11.9 300 Each 3 12/16/2021 Active [employer]ing[employer] Verio Flex System w/Device Kit Use as [...] of less than 8.0% ([facility]) Inject 8 units with breakfast, 4 units [...] morning. 30 mL 3 04/05/2024 Active Pen [place] 32G X 4 MM Use as [...] 24 Hour (Imdur)Indications:C oronary artery disease involving [place] coronary artery of [place] heart without angina pectoris,HTN, goal below 140/90 [...] 3553 0000 2079 7075 732 / DID: [id number] Matched Unrelated 10/24--- DPB1 Match ABO/Rh: A [...] Thrombocytopenia 12/06/2022 Last Assessment & Plan: Platelets 33922 on 03/20 Questionable hematuria Urinary incontinence 09/12/2022 [...] failure. Does not have any evidence of lsmph-gkpkqv-ieqg disease Last Assessment & Plan: Continues to [...] -continue venlafaxine Coronary artery disease invo lving [place] coronary artery of [place] heart without angina pectoris 06/12/2017 Overview: S/P EDIL to LAD on 06/12/17 Last Assessment & Plan: No angina - Continue atorvastatin, isosorbide, metoprolol - no ASA due to thrombocytopenia Dyslipidemia, goal LDL below 70 11/25/2011 Last Assessment & Plan: Patient having no issues. She continues on Lipitor 40 mg daily Last lab I will was that I can find were from [id number] Assessment/plan: Dyslipidemia with patient currently taking Lipitor [...] mRNA, LNP-s, No Pre serve, 2-Dose Series ([employer]) 02/05/2021,01/08/2021 COVID-19, LNP-s, No Preserve , Ye-sucrose, [...] am: Called and spoke with Madeline at [facility], per Madeline if the patient arrives late they will still be ableto transfuse her. 9:20 am: Spoke with Juanita, patient's daughter, made her aware the patient is ok to be there between 10:30am and 11:00am. She verbalized understanding and states the patient is going to be heading to [facility] shortly. * Telephone Encounter - [...] concern with patient having her colonoscopy at [facility] on 07/12/2024? She states she is concerned about the patient's risk of bleeding. * Telephone Encounter - Makenzie Barth LPN - 07/04/2024 9:02 AM EDT Reviewed lab results with patient's daughterJuanita: Hgb: 6.0 Plt: 4 Patient's daughter verbalized understanding. Patient to receive 2 units prbc, 1 unit platelets. Called [facility] blood bank. Spoke with Kaleb. Spoke with Margoth at [facility] Called [facility] central scheduling. Patient scheduled for today at 10:30 am. Patient verbalized understanding of appt time. Faxed order to [facility]/ blood bank. * Telephone Encounter - [...] [place] [address] [place] [address] Jitendra Aguero MD [address] [place] [address] 07/10/2024 7:10 AM EDT Laboratory Lab Mobile Phlebotomy [facility] [address] [facility] [place] [address] Mvmg, Gml Mobile Home Draw [address] [place], [place] [address] 07/11/2024 1:00 PM EDT Telemedicine Pharmacy, [address] [place] [address] [place] [address] 07/12/2024 1:41 PM EDT Hospital Encounter OR [facility], Operating Room, [facility] - 4th Floor [address] [place] [address] Noemy Carrasco, DO [address] [place] [address] 07/12/2024 1:41 PM EDT - 07/12/2024 2:19 PM EDT Surgery OR GL, Operating Room, [facility] - 4th Floor [address] [place] [address] Noemy Carrasco, DO [address] [place] [address] COLONOSCOPY FLEXIBLE PROXIMAL DIAGNOSTIC 07/17/2024 7:10 AM EDT Laboratory Lab Mobile Phlebotomy [facility] [address] [place] [address] Mvmg, Gml Mobile Home Draw [address] [place], [place] [address] 07/24/2024 7:10 AM EDT Laboratory Lab Mobile Phlebotomy [facility] [address] [place] [address] Mvmg, Gml Mobile Home Draw [address] [place] [address] 07/31/2024 7:10 AM EDT Laboratory Lab Mobile Phlebotomy [facility] [address] [place] [address] Mvmg, Gml Mobile Home Draw [address] [place] [address] 08/07/2024 7:10 AM EDT Laboratory Lab Mobile Phlebotomy [facility] [address] [facility] [place] [address] Mvmg, Gml Mobile Home Draw [address] [facility] [place] [address] 08/13/2024 8:30 AM EDT [facility] Visit [facility], [facility] [address] [place] [address] Marisa Pacheco, TANYA [address] [place] [address] 08/27/2024 1:00 PM EDT Office Visit Pharmacy, [address] [place] [address] [place] [address] 12/24/2024 2:30 PM EST Nurse Only Ancillary [address] [place] [address] [place], Nurse [address] [place] [address] 01/13/2025 11:40 AM EST Office Visit Family [address] [place] [phone] Dhruv Moss MD [address] [place] [address] [place] [address] 07/21/2025 1:30 PM EDT Imaging Radiology [address] [place] [address] 08/04/2025 1:20 PM EDT Office Visit Family Medicine [address] [place] [phone] Dhruv Moss MD [address] [place] [address] [place] [address] Scheduled Procedures Name Priority Associated Diagnoses Date/Ti [...] D LEVEL ONCE IN A LIFETIME-USE SMARTSET# 30422 Completed 05/11/2015 RETIRED - COLONOSCOPY-EVERY 5 YRS [...] this encounter Medical Devices Implanted Type Area Business Intelligence Developer Device Identifier Shelf Expiration Date Model / Serial / Lot Port Pwr Mri Isp Profile - [id number] Implanted:Qty: 1 on 07/24/2020 by Akash Castillo MD at OR [facility] Right: Chest CR BARD : PERIPHERAL VASCULAR 04/12/2021 [id number] / / [id number] documented as of this encounter Advance Directives [...] Agents on File Name Relationship Healthcare Agent [facility] p Communication Juanita Silva Adult Child Health Care Agent Care Teams Hop Picker Relationship Specialty Start Date End Date Dhruv Moss MD [address] [place] [address] [place] [address] PCP - General Family Medicine 08/27/21 documented as of this encounter
--- OUTSIDE RECORDS SUMMARY | 2024-10-10 00:41 | External Medical Summary | Summary of Care ---
Author Name Unknown Organization [facility] Address [address] [facility] [address] Phone [phone] Care Team Providers Care Mid Teacher Name Role Phone Dhruv Moss MD Primary Care Provide r Reason for Visit * Reason Onset Date Comments Test Results 07/04/2024 Encounter Details Date Type Department Care Team (Late st Contact Info) Description 07/04/2024 Telephone Hematology/Oncology [facility] [address] [place] [address] Jitendra Aguero MD [address] [place] [address] Test Results Allergies No known active allergiesdocumented [...] for Nausea. 60 Tablet 3 12/09/2021 Active Emergency CallWorksTouch Delica Lancets 30GIndications:Type 2 diabetes mellitus with hemoglobin A1c goal of less than 8.0% ([facility]) Use to test blood sugar three times a day DXe11.9 300 Each 3 12/16/2021 Active Emergency [employer] Verio Flex System w/Device Kit Use as [...] morning. 30 mL 3 04/05/2024 Active Pen [place] 32G X 4 MM Use as directed. [...] 24 Hour (Imdur)Indications:C oronary artery disease involving [place] coronary artery of [place] heart without angina pectoris,HTN, goal below 140/90 [...] 3553 0000 2079 7075 732 / DID: [id number] Matched Unrelated 10/24--- DPB1 Match ABO/Rh: A [...] Thrombocytopenia 12/06/2022 Last Assessment & Plan: Platelets 88091 on 03/20 Questionable hematuria Urinary incontinence 09/12/2022 [...] failure. Does not have any evidence of ojukk-fytlsd-qndt disease Last Assessment & Plan: Continues to [...] venlafaxine Coronary artery disease invo lving [place] coronary artery of [place] heart without angina pectoris 06/12/2017 Overview: S/P EDIL to LAD on 06/12/17 Last Assessment & Plan: No angina - Continue atorvastatin, isosorbide, metoprolol - no ASA due to thrombocytopenia Dyslipidemia, goal LDL below 70 11/25/2011 Last Assessment & Plan: Patient having no issues. She continues on Lipitor 40 mg daily Last lab I will was that I can find were from [id number] Assessment/plan: Dyslipidemia with patient currently taking Lipitor [...] mRNA, LNP-s, No Pre serve, 2-Dose Series ([employer]) 02/05/2021,01/08/2021 COVID-19, LNP-s, No Preserve , [...] am: Called and spoke with Madeline at [facility], per Madeline if the patient arrives late they will still be ableto transfuse her. 9:20 am: Spoke with Juanita, patient's daughter, made her aware the patient is ok to be there between 10:30am and 11:00am. She verbalized understanding and states the patient is going to be heading to [facility] shortly. * Telephone Encounter - Kasia Duran [...] concern with patient having her colonoscopy at [facility] on 07/12/2024? She states she is concerned about the patient's risk of bleeding. * Telephone Encounter - Makenzie Barth LPN - 07/04/2024 9:02 AM EDT Reviewed lab results with patient's daughter, Juanita: Hgb: 6.0 Plt: 4 Patient's daughter verbalized understanding. Patient to receive 2 units prbc, 1 unit platelets. Called [facility] blood bank. Spoke with Kaleb. Spoke with Margoth at [facility] Called [facility] central scheduling. Patient scheduled for today at 10:30 am. Patient verbalized understanding of appt time. Faxed order to [facility]/ blood bank. * Telephone Encounter - [...] State [place]aryl [place] [address] [place] [address] Jitendra Aguero MD 200 [facility] [place] [address] 07/10/2024 7:10 AM EDT Laboratory Lab Mobile Phlebotomy [facility] [address] [place] [address] Mvmg, Gml Mobile Home Draw [address] [place] [address] 07/11/2024 1:00 PM EDT Telemedicine Pharmacy, [address] [place] [address] [place] [address] 07/12/2024 1:41 PM EDT Hospital Encounter OR [facility], Operating Room, [facility] - 4th Floor [address] [place] [phone] Noemy Carrasco, DO [address] [place] [address] 07/12/2024 1:41 PM EDT - 07/12/2024 2:19 PM EDT Surgery OR [facility], Operating Room, [facility] - 4th Floor [address] [place] [phone] Noemy Carrasco, DO [address] [place] [address] COLONOSCOPY FLEXIBLE PROXIMAL DIAGNOSTIC 07/17/2024 7:10 AM EDT Laboratory Lab Mobile Phlebotomy [facility] [address] [place] [address] Mvmg, Gml Mobile Home Draw [address] [place] [address] 07/24/2024 7:10 AM EDT Laboratory Lab Mobile Phlebotomy [facility] [address] [place] [address] Mvmg, Gml Mobile Home Draw [address] [place] [address] 07/31/2024 7:10 AM EDT Laboratory Lab Mobile Phlebotomy [facility] [address] [facility] [place] [address] Mvmg, Gml Mobile Home Draw [address] [facility] [place] [address] 08/07/2024 7:10 AM EDT Laboratory Lab Mobile Phlebotomy [facility] [address] [facility] [place] [address] Mvmg, Gml Mobile Home Draw [address] [facility] [place] [address] 08/13/2024 8:30 AM EDT [facility] Visit [facility] [place], [facility] [address] [facility] [place] [address] Marisa Pacheco, TANYA [address] [facility] [place] [address] 08/27/2024 1:00 PM EDT Office Visit Pharmacy, [address] [place] [address] [place] [address] 12/24/2024 2:30 PM EST Nurse Only Ancillary [address] [place] [address] Cristina, Nurse Annual [address] [place] [address] 01/13/2025 11:40 AM EST Office Visit Family Medicine [address] [place] [phone] Dhruv Moss MD [address] [place] [address] [place] [address] 07/21/2025 1:30 PM EDT Imaging Radiology [address] [place] [address] 08/04/2025 1:20 PM EDT Office Visit Family Medicine [address] [place] [phone] Dhruv Moss MD [address] [place] [address] [place] [address] Scheduled Procedures Name Priority Associated Diagnoses Date/Ti [...] D LEVEL ONCE IN A LIFETIME-USE SMARTSET# 60081 Completed 05/11/2015 RETIRED - COLONOSCOPY-EVERY 5 YRS [...] this encounter Medical Devices Implanted Type Area Hvac Service Technician Device Identifier Shelf Expiration Date Model / Serial / Lot Port Pwr Mri Isp Profile - [id number] Implanted:Qty: 1 on 07/24/2020 by Akash Castillo MD at OR [facility] Right: Chest CR BARD : PERIPHERAL VASCULAR 04/12/2021 [id number] / / [id number] documented as of this encounter Advance Directives [...] Agents on File Name Relationship Healthcare Agent [facility] p Communication [facility] Adult Child Health Care Agent Care Teams Mid Teacher Relationship Specialty Start Date End Date Dhruv Moss MD [address] [place] [address] [place] [address] PCP - General Family Medicine 08/27/21 documented as of this encounter
--- OUTSIDE RECORDS SUMMARY | 2024-10-10 00:41 | External Medical Summary ---
Author Name Unknown Address Unknown Organization K01:LABORATORY [facility] - [facility] [address] [facility] [address] [place] [address] Laboratory Report Ordering Provider Test Date Status ANN MUNGUIA 07/03/2024 08:20:00 Final Observation Date Value Abnormality Reference (Units ) Status WBC, Total 07/03/2024 08:20:00 11.06 Above high normal 4.00-10.80 (K/uL) Final RBC 07/03/2024 08:20:00 1.73 3.85-5.15 (M/uL) Final Hemoglobin 07/03/2024 08:20:00 6.0 Below lower panic limits 12.0-15.3 (g/dL) Final HCT 07/03/2024 08:20:00 18.5 Below low normal 36.0-45.2 (%) Final MCV 07/03/2024 08:20:00 106.9 81.5-97.5 (fL) Final MCH 07/03/2024 08:20:00 34.7 27.0-34.0 (pg) Final MCHC 07/03/2024 08:20:00 32.4 32.0-36.0 (g/dL) Final RDW 07/03/2024 08:20:00 Final No result - abnormal red radha l distribution. Platelets 07/03/2024 08:20:00 4 Below lower panic li mits 140-400 (K/uL) Final MPV 07/03/2024 08:20:00 Final No result - abnormal platele t distribution. Nucleated erythrocytes/100 l eukocytes [Ratio] in Blood by Automated count 07/03/2024 08:20:00 0 <=0 (/100 WBCs) Final Performing Location LABOR[facility]ORY [facility] - [address] [place] [address]
--- OUTSIDE RECORDS SUMMARY | 2024-10-10 00:41 | External Medical Summary | Summary of Care ---
Author Name Unknown Organization [facility] Address [address] [facility] [address] Phone [phone] Care Team Providers Care Production Control Scheduler Name Role Phone Dhruv Moss MD Primary Care Provide r Reason for Referral * Evaluate & Treat - Unlimited Visits (Within 10 days (routine)) - Authorized Specialty Diagnoses / Procedures Referred By Vern ayala Referred To Contact Ophthalmology Diagnoses Type 2 diabetes mellitus with hemoglobin A1c goal of less than 8.0% ([facility]) Abby Bennett CRNP [address] [place] [address] [place] [address] Referral ID Status Reason Start Date Expiration Date Visits Requested Visits Authorized [id number] Authorized Specialty Services Required 07/02/2024 999 999 Question Answer Referral Priority Within 10 days (routine) Where should this appointment be scheduled? [facility] Referring for: Optometry Conditions Optometry Conditions Diabetic Eye Exam without Retinopathy Reason for Visit * Reason Comments Re-Check Encounter Details Date Type Department Care Team (Late st Contact Info) Description 07/02/2024 1:00 PM EDT Office Visit Family Medicine [address] [place] [phone] Abby Bennett CRNP [address] [place] [address] [place] [phone] Type 2 diabetes mellitus with hemoglobin A1c goal of less than 8.0% ([facility])*; Bleeding from the nose; HTN, goal below 140/90; MDS (myelodysplastic syndrome), high grade (HCC); Recurrent major depressive disorder, in partial remission ([facility]) Allergies No known active allergiesdocumented as of this encounter (statuses as of 07/02/2024) Medications Medication Sig Dispensed Refills Start Date End Date Status Ondansetron HCl 8 MG Oral TabletIndications:M DS (myelodysplastic syndrome), high grade ([facility]) Take 1 Tablet by mouth every 8 [...] goal of less than 8.0% ([facility]) Use to test blood sugar three times a day DXe11.9 300 Each 3 12/16/2021 Active MerchantryTouch Verio Flex System w/Device Kit Use as [...] the morning. 30 mL 04/05/2024 Active Pen [place] 32G X 4 MM Use as directed. [...] 24 Hour (Imdur)Indications: Coronary artery disease involving tangirnaq coronary artery of tangirnaq heart without angina pectoris,HTN, goal below 140/90 TAKE ONE TABLET BY MOUTH IN THE MORNING 90 Tablet 1 06/15/2024 Active Oxymetazoline HCl 0.05 % Nasal SolutionIndications :Bleeding from the nose Administer 2 Sprays into each nostril 2 times a day as needed for Congestion (for congestion). Do not use for more than three days. 6 mL 07/02/2024 Active Amoxicillin 500 MG Oral Capsule (Amoxil) Take 1 Capsule by mouth in the morning and 1 Capsule before bedtime. Do all this for 10 days. 20 Capsule 02/25/2024 07/02/20 24 Discontinu ed(Patient preference /discontin uation) Hospital, Clinic, or Other Facility Administered Medication Ordered Dose Route Frequency Start Date End Date Status NSS 0.9% 1,000 mL bolus infusionIndications:MDS (myelodysplastic syndrome), high grade (HCC),Stem cells transplant status (HCC),Acquired hypothyroidism 1000 mL IV DAILY PRN 12/08/2021 Active documented as of this encounter (statuses as of 07/02/2024) Active Problems Patient Care Coordination No te Formatting of this note migh t be different from the original. Date of Transplant: 09/01/2021 Conditioning Regimen: Fludarabine / Busulfan 2 with post-transplant Cytoxan ABO/Rh: A Positive CMV status: CMV Positive--- GRID: [id number] / DID: [id number] Matched Unrelated 10/24--- DPB1 Match ABO/Rh: A [...] Thrombocytopenia 12/06/2022 Last Assessment & Plan: Platelets 53645 on 03/20 Questionable hematuria Urinary incontinence 09/12/2022 [...] failure. Does not have any evidence of mgjpl-cwbfge-rzpi disease Last Assessment & Plan: Continues to [...] -continue venlafaxine Coronary artery disease invo lving tangirnaq coronary artery of tangirnaq heart without angina pectoris 06/12/2017 Overview: S/P EDIL to LAD on 06/12/17 Last Assessment & Plan: No angina - Continue atorvastatin, isosorbide, metoprolol - no ASA due to thrombocytopenia Dyslipidemia, goal LDL below 70 11/25/2011 Last Assessment & Plan: Patient having no issues. She continues on Lipitor 40 mg daily Last lab I will was that I can find were from [phone] Assessment/plan: Dyslipidemia with patient currently taking Lipitor [...] as of this encounter (statuses as of 07/02/2024) Resolved Problems Problem Noted Date Diagnosed Date [...] as of this encounter (statuses as of 07/02/2024) Immunizations Name Administration Dates Next Due COVID-19 mRNA, LNP-s, No Pre serve, 2-Dose Series (RedVision System) 02/05/2021,01/08/2021 COVID-19, LNP-s, No Preserve , Ye-sucrose, [...] Sign Reading Time Taken Comments Blood Pressure 122/70 07/02/2024 12:51 PM EDT Pulse 84 07/02/2024 12:51 PM EDT Temperature 36 C (96.8 F) 07/02/2024 12:51 PM EDT Respiratory Rate 16 07/02/2024 12:51 PM EDT Oxygen Saturation 97% 07/02/2024 12:51 PM EDT Inhaled Oxygen Concentration - - Weight 71.7 kg (158 lb) 07/02/2024 12:51 PM EDT Height 167.6 cm (5' 6") 07/02/2024 12:51 PM EDT Body Mass Index 25.5 07/02/2024 12:51 PM EDT documented in this [...] as of this encounter Progress Notes * Maya Quinones RN - 07/02/2024 1:02 PM EDT Unable to do DM EYe, can not get clear photos * Maya Quinones RN - 07/02/2024 12:57 PM EDT Socks and Shoes Removed for Annual Diabetic Foot Screening RIGHT FOOT: No Reddened, Cracking, Or Open Areas Noted. RIGHT Dorsalis Pedis Pulse: Palpable RIGHT Posterior Tibial Pulse: Palpable RIGHT Monofilament:Patient reports feeling monofilament pressure on plantar surface of foot LEFT FOOT: No Reddened, Cracking or Open Areas Noted. LEFT Dorsalis Pedis Pulse: Palpable LEFT Posterior Tibial Pulse: Palpable LEFT Monofilament:Patient reports feeling monofilament pressure on plantar surface of foot documented in this encounter Nursing Notes * Maya Quinones RN - 07/02/2024 12:54 PM EDT Pt here for 6 mo check up, seeing Makenzie in [facility] following this appt documented in this encounter Plan of Treatment Upcoming Encounters Date Type Department Care Team (Latest Contact Info) Description 07/03/2024 7:10 AM EDT Laboratory Lab Mobile Phlebotomy [facility] [address] [place] [address] [facility], [facility] Draw [address] [place] [address] 07/03/2024 1:30 PM EDT Imaging Radiology [address] [place] [address] 07/05/2024 9:15 AM EDT Office Visit Hematology/Oncology [facility] [address] [facility] [place] [phone] Jitendra Aguero MD [address] [facility] [place] [address] 07/10/2024 7:10 AM EDT Laboratory Lab Mobile Phlebotomy [facility] [address] [place] [address] M[facility], Gml Mobile Home Draw [address] [facility] [place] [address] 07/11/2024 1:00 PM EDT Telemedicine Pharmacy, [address] [place] [address] [place] [address] 07/12/2024 1:41 PM EDT Hospital Encounter OR [facility], Operating Room, [facility] - 4th Floor [address] [facility] [place] [phone] Noemy Carrasco, DO [address] [place] [address] 07/12/2024 1:41 PM EDT - 07/12/2024 2:19 PM EDT Surgery OR [facility], Operating Room, [facility] - 4th Floor [address] [place] [place] [phone] Noemy Carrasco DO [address] [place] [address] COLONOSCOPY FLEXIBLE PROXIMAL DIAGNOSTIC 07/17/2024 7:10 AM EDT Laboratory Lab Mobile Phlebotomy [facility] [address] [place] [address] M[facility], G[facility] [address] [place] [address] 07/24/2024 7:10 AM EDT Laboratory Lab Mobile Phlebotomy [facility] [address] [place] [address] [facility], G[facility] [address] [place] [address] 07/31/2024 7:10 AM EDT Laboratory Lab Mobile Phlebotomy [facility] [address] [place] [address] [facility], Gml [facility] Draw [address] [place], [place] [address] 08/07/2024 7:10 AM EDT Laboratory Lab Mobile Phlebotomy [facility] [address] [place], [place] [address] [facility], Gml Mobile Home Draw [address] [place], [place] [address] 08/13/2024 8:30 AM EDT [facility] Visit [facility], [facility] [address] [place] [address] Marisa Pacheco, TANYA [address] [place] [address] 08/27/2024 1:00 PM EDT Office Visit Pharmacy, [address] [place] [address] [place] [address] 12/24/2024 2:30 PM EST Nurse Only Ancillary [address] [place] [address] [place], Nurse Annual [address] [place] [address] 01/13/2025 11:40 AM EST [address] [phone] Dhruv Moss MD [address] [place] [address] [place] [address] 08/04/2025 1:20 PM EDT [address] [phone] Dhruv Moss MD [address] [place] [address] [place] [address] Scheduled Procedures Name Priority Associated Diagnoses Date/Ti me COLONOSCOPY FLEXIBLE PROXIMA L DIAGNOSTIC Recall Diarrhea 07/12/2024 1:41 PM EDT Scheduled Referrals Name Type Priority Associated Diagnoses Orde r Schedule ADULT/PEDS OPHTHALMOLOGY/OPTOM ETRY REFERRAL OP Referral Within 10 days (routine) Type 2 diabetes mellitus with hemoglobin A1c goal of less than 8.0% ([facility]) Ordered: 07/02/2024 Health Maintenance Due Date Last Done Comments [...] D LEVEL ONCE IN A LIFETIME-USE SMARTSET# 11834 Completed 05/11/2015 RETIRED - COLONOSCOPY-EVERY 5 YRS [...] this encounter Medical Devices Implanted Type Area Mobile Sales Expert Device Identifier Shelf Expiration Date Model / Serial / Lot Port Pwr Mri Isp Profile - [id number] Implanted:Qty: 1 on 07/24/2020 by Akash Castillo MD at OR [facility] Right: Chest CR BARD : PERIPHERAL VASCULAR 04/12/2021 [id number] / / [id number] documented as of this encounter Visit Diagnoses Diagnosis Type 2 diabetes mellitus with hemoglobin A1c goal of less than 8.0% (HCC)- Primary Bleeding from the nose Epistaxis HTN, goal below 140/90 Unspecified essential hypertension MDS (myelodysplastic syndrome), high grade (HCC) High grade myelodysplastic syndrome lesions Recurrent major depressive disorder, in partial remission (HCC) Diarrhea documented in this encounter Advance Directives * [...] Agents on File Name Relationship [facility] Juanita Ricardo Adult Child Health Care Agent Care Teams Production Control Scheduler Relationship Specialty Start Date End Date Dhruv Moss MD [address] [place], [place] [address] [address] PCP - General Family Medicine 08/27/21 documented as of this encounter
--- OUTSIDE RECORDS SUMMARY | 2024-10-10 00:41 | External Medical Summary | Summary of Care ---
Author Name Unknown Organization [facility] Address [address] [facility] [place] [address] Phone [phone] Care Team Providers Care Movie Extra Name Role Phone Dhruv Moss MD Primary Care Provide r Reason for Visit * Reason Comments Dosage Adjustment In Person (Anticoag Cl inic) Diabetes Follow-Up Encounter Details Date Type Department Care Team (Late st Contact Info) Description 07/02/2024 1:30 PM EDT Office Visit Pharmacy, [address] [place] [phone] [place] [address] Type 2 diabetes mellitus with hemoglobin A1c goal of less than 8.0% ([facility])* Allergies No known active allergiesdocumented as of [...] day DXe11.9 300 Each 3 12/16/2021 Active LEYIOTouch Verio Flex System w/Device Kit Use as [...] Release (PriLOSEC)Indication s:MDS (myelodysplastic syndrome), high grade ([facility]) Take 1 capsule by mouth twice daily 180 Capsule 2 06/10/2023 Active NovoLIN R 100 UNIT/ML Injection Solution (insulin REGULAR human)Indications:Ty pe 2 diabetes mellitus with hemoglobin A1c goal of less than 8.0% ([facility]) Inject 8 units with breakfast, 4 units [...] the morning. 30 mL 04/05/2024 Active Pen [place] 32G X 4 MM Use as directed. [...] 3553 0000 2079 7075 732 / DID: [id number] Matched Unrelated 10/24--- DPB1 Match ABO/Rh: A [...] Thrombocytopenia 12/06/2022 Last Assessment & Plan: Platelets 92519 on 03/20 Questionable hematuria Urinary incontinence 09/12/2022 [...] failure. Does not have any evidence of wjxnv-lxscfh-xaul disease Last Assessment & Plan: Continues to [...] was that I can find were from [phone] Assessment/plan: Dyslipidemia with patient currently taking Lipitor [...] encounter Progress Notes * Makenzie Pool, [facility] - 07/02/2024 1:45 PM EDT Images from the original note [...] supper + CF 1:20 if over 140 DEC Lantus PEN - 18 units daily in AM Metformin 1000 mg - 1 tablet TWICE a day with food eGFR 76 as of 04/28/23 Medication Injection Site: Abdomen Lifestyle: Diet: improved Glucose Review/SMBG: Readings obtained from patient device Hypoglycemia: Does your blood sugar go below 70 mg/dL? Yes, discussed below Hyperglycemia symptoms present: none Recent Labs Units 05/22/24 0827 11/20/23 1319 12/06/22 1202 HEMOGLOBIN A1C - [facility] % 6.5* 7.6* 8.0* Recent Labs Units 06/26/24 0920 03/06/24 0852 01/24/24 1337 ESTIMATED GLOMERULAR FILTRATION RATE - [facility] mL/min 58* 46* 61 CREATININE - [facility] mg/dL 1.0 1.2* 1.0 HYPERTENSION: Patient on ACEi/ARB: no, stopped d/t hypotension BP Readings from Last 3 Encounters: 07/02/24 122/70 06/21/24 108/56 03/29/24 118/58 Blood pressure at goal: yes HYPERLIPIDEMIA: Recent Labs Units 12/27/23 1100 11/03/22 1138 09/12/22 1009 LDL CHOLESTEROL (DIRECT MEASURE) - [facility] mg/dL 68 93 -- LDL CHOLESTEROL (CALCULATED) - [facility] mg/dL -- -- 99 Does patient have clinical ASCVD? No, is patient LDL less than 70mg/dL? Yes HEALTH MAINTENANCE REVIEW: Health Maintenance Due Topic Date Due COVID-19 Vaccine ( season) 2023 *BISPHONATE OR OTHER ACCEPTABLE MEDICATION NEEDED FOR OSTEOPOROSIS (REFER TO SMARTSET #1146) Never done Colonoscopy 05/06/2024 Diabetic Eye Exam 05/12/2024 Albumin/Creatinine Ratio 09/15/2024 ASSESSMENT & PLAN: ICD-10-CM 1. Type 2 diabetes mellitus with hemoglobin A1c goal of less than 8.0% ([facility]) E11.9 Considerations: Cost: Approved for PACE 07/2023 Medication: H/o MARTHA to Lantus, unspecified; Eye pain with Xultophy A1c may not be accurate given frequent transfusions Libre2 through [facility] [phone] Daughter, JONES Frey nurse BG Readings - Blood sugars reviewed. Improvement noted since last visit. Reviewed with patient. Attributes this to diet improvements. Medications - Reviewed current regimen. Patient following CF sheet at home. Encouraged to bring to next visit to ensure this matches listed dosing parameters. In the interim, will plan to further decrease Lantus to reduce hypoglycemia. Diet, Exercise, Lifestyle - Encouraged to keep up great diet modifications. Patient is agreeable to SMBG daily with CGM ([employer] Jo[employer]) Patient aware to contact clinic if any hypoglycemia before next visit. MEDICATION CHANGES: Yes, see below Diabetic Medications: Novolin R (Relion) Vial - 8 units with breakfast, 4 units with lunch , 6 units with supper + CF 1:20 if over 140 DEC Lantus PEN - 16 units daily in AM Metformin 1000 mg - 1 tablet TWICE a day with food eGFR 76 as of 04/28/23 HEALTH MAINTENANCE INTERVENTIONS: Deferred d/t time constraints FOLLOW UP: Return to clinic in 8 weeks 07/11/2024 I spent a total of 30-39 minutes (exact time 35 mins) on the date of service in preparation, delivery, and documentation of the care provided to Ruth Burger excluding any time spent in the performance of separately billed services. Makenzie Pool [facility] Clinical Pharmacist - Type Soldering Machine Tender Medication Therapy Management Clinic 07/02/2024, 1:45 PM documented in this encounter Plan of Treatment Upcoming Encounters Date Type Department Care Team (Latest Contact Info) Description 07/03/2024 7:10 AM EDT Laboratory Lab Mobile Phlebotomy [facility] [address] [employer] [place] [address] [facility], Gml Mobile Home Draw [address] [employer] [place] [address] 07/03/2024 1:30 PM EDT Imaging Radiology [address] [place] [address] 07/05/2024 9:15 AM EDT [facility] [address] [facility] [place] [phone] Jitendra Aguero MD [address] [facility] [place] [address] 07/10/2024 7:10 AM EDT Laboratory Lab Mobile Phlebotomy [facility] [address] [employer] [facility] [employer] [place] [address] Mvmg, Gml Mobile Home Draw [address] [employer] [place] [address] 07/11/2024 1:00 PM EDT Telemedicine Pharmacy, [address] [place] [address] [place] [address] 07/12/2024 1:41 PM EDT Hospital Encounter OR [facility], Operating Room, [facility] - 4th Floor [address] [place] [phone] Noemy Carrasco, DO [address] [place] [address] 07/12/2024 1:41 PM EDT - 07/12/2024 2:19 PM EDT Surgery OR [facility], Operating Room, [facility] - 4th Floor [address] [place] [phone] Noemy Carrasco DO [address] [place] [address] COLONOSCOPY FLEXIBLE PROXIMAL DIAGNOSTIC 07/17/2024 7:10 AM EDT Laboratory Lab Mobile Phlebotomy [facility] [address] [employer] [place] [address] M[facility], Gml Mobile Home Draw [address] [employer] [place] [address] 07/24/2024 7:10 AM EDT Laboratory Lab Mobile Phlebotomy [facility] [address] [employer] [facility] [employer] [place] [address] Mvmg, Gml Mobile Home Draw [address] [employer] [place], [place] [address] 07/31/2024 7:10 AM EDT Laboratory Lab Mobile Phlebotomy [facility] [address] [employer] [facility] [employer] [place] [address] Mvmg, Gml Mobile Home Draw [address] [employer] [place], [place] [address] 08/07/2024 7:10 AM EDT Laboratory Lab Mobile Phlebotomy [facility] [address] [employer] [facility] [employer] [place] [address] M[facility], Gml Mobile Home Draw [address] [employer] [place], [place] [address] 08/13/2024 8:30 AM EDT Home Visit [facility], [facility] [address] [place] [address] Marisa Pacheco, TANYA [address] [place] [address] 08/27/2024 1:00 PM EDT Office Visit Pharmacy, [address] [place] [address] [place] [address] 12/24/2024 2:30 PM EST Nurse Only Ancillary [address] [place] [address] [place], Nurse Annual [address] [place] [address] 01/13/2025 11:40 AM EST Office Visit [address] [place] [phone] Dhruv Moss MD [address] [place] [address] [place] [address] 08/04/2025 1:20 PM EDT Office Visit [address] [place] [address] Dhruv Moss MD [address] [place] [address] [place] [address] Scheduled Procedures Name Priority Associated Diagnoses Date/Ti [...] D LEVEL ONCE IN A LIFETIME-USE SMARTSET# 50312 Completed 05/11/2015 RETIRED - COLONOSCOPY-EVERY 5 YRS [...] this encounter Medical Devices Implanted Type Area Die Tester Device Identifier Shelf Expiration Date Model / Serial / Lot Port Pwr Mri Isp Profile - [id number] Implanted:Qty: 1 on 07/24/2020 by Akash Castillo MD at OR [facility] Right: Chest CR BARD : PERIPHERAL VASCULAR 04/12/2021 [id number] / / [id number] documented as of this encounter Visit Diagnoses Diagnosis Type 2 diabetes mellitus with hemoglobin A1c goal of less than 8.0% (HCC)- Primary Diarrhea documented in this encounter Advance Directives [...] Adult Child Health Care Agent Care Teams Movie Extra Relationship Specialty Start Date End Date Dhruv Moss MD [address] [place], [place] [address] [address] PCP - General Family Medicine 08/27/21 documented as of this encounter
--- OUTSIDE RECORDS SUMMARY | 2024-10-10 00:41 | External Medical Summary | Summary of Care ---
Author Name Unknown Organization [facility] Address [address] [facility] [place] [address] Phone [phone] Care Team Providers Care Study Assistant Name Role Phone Dhruv Moss MD Primary Care Provide r Reason for Visit * Reason Onset Date Comments Test Results Lab 06/26/2024 Encounter Details Date Type Department Care Team (Late st Contact Info) Description 06/26/2024 Telephone Hematology/Oncology Treatment, [place] [address] [place] [address] Jitendra Aguero MD [address] [place] [address] Test Results Lab Allergies No known active allergiesdocumented as of this encounter (statuses as of 06/26/2024) Medications Medication Sig Dispensed Refills Start Date [...] hemoglobin A1c goal of less than 8.0% ([facility]) Use to test blood sugar three times a day DXe11.9 300 Each 3 12/16/2021 Active Progressive Dealer ToolsTouch Verio Flex System w/Device Kit Use as [...] hemoglobin A1c goal of less than 8.0% ([facility]) Inject 8 units with breakfast, 4 units [...] morning. 30 mL 3 04/05/2024 Active Pen [place] 32G X 4 MM Use as directed. [...] 24 Hour (Imdur)Indications:C oronary artery disease involving [place] coronary artery of [place] heart without angina pectoris,HTN, goal below 140/90 TAKE ONE TABLET BY MOUTH IN THE MORNING 90 Tablet 1 06/15/2024 Active Hospital, Clinic, or Other Facility Administered Medication Ordered Dose Route Frequency Start Date End Date Status NSS 0.9% 1,000 mL bolus infusionIndications:MDS (myelodysplastic syndrome), high grade (HCC),Stem cells transplant status (HCC),Acquired hypothyroidism 1000 mL IV DAILY PRN 12/08/2021 Active documented as of this encounter (statuses as of 06/26/2024) Active Problems Patient Care Coordination No te Formatting of this note migh t be different from the original. Date of Transplant: 09/01/2021 Conditioning Regimen: Fludarabine / Busulfan 2 with post-transplant Cytoxan ABO/Rh: A Positive CMV status: CMV Positive--- GRID: [id number] / DID: [id number] Matched Unrelated 10/24--- DPB1 Match ABO/Rh: A [...] Thrombocytopenia 12/06/2022 Last Assessment & Plan: Platelets 18626 on 03/20 Questionable hematuria Urinary incontinence 09/12/2022 [...] failure. Does not have any evidence of yfevm-tumfow-jjys disease Last Assessment & Plan: Continues to [...] -continue venlafaxine Coronary artery disease invo lving [place] coronary artery of [place] heart without angina pectoris 06/12/2017 Overview: S/P EDIL to LAD on 06/12/17 Last Assessment & Plan: No angina - Continue atorvastatin, isosorbide, metoprolol - no ASA due to thrombocytopenia Dyslipidemia, goal LDL below 70 11/25/2011 Last Assessment & Plan: Patient having no issues. She continues on Lipitor 40 mg daily Last lab I will was that I can find were from [id number] Assessment/plan: Dyslipidemia with patient currently taking Lipitor [...] as of this encounter (statuses as of 06/26/2024) Resolved Problems Problem Noted Date Diagnosed Date [...] as of this encounter (statuses as of 06/26/2024) Immunizations Name Administration Dates Next Due COVID-19 mRNA, LNP-s, No Pre serve, 2-Dose Series ([employer]) 02/05/2021,01/08/2021 COVID-19, LNP-s, No Preserve , Ye-sucrose, [...] No 12/22/2023 Does the household have a [facility] source of income? (Household - for [...] Telephone Encounter - Makenzie Barth LPN - 06/26/2024 12:11 PM EDT Patient to receive 1 unit platelets. Called [facility] blood bank. Spoke to Pattie. Spoke with Yasmine at [facility]. Called [facility] central scheduling. Patient scheduled for 06/27/2024 at 1:00 pm. Called and spoke with patient's daughter, Juanita. She verbalized understanding of appt time. Faxed order to [facility]/ blood bank. Jitendra Aguero MD Blood workup done on 06/26/2024: -WBC 88395, Hemoglobin and hematocrit -7.8/23, Platelet count of less than 10,000 I would like to transfuse 1 unit of Platelet at [facility]. * Telephone Encounter - Winsome Chang RN - 06/26/2024 12:06 PM EDT Received TT from lab, plt <10. Per parameters, patient to receive platelet transfusion. documented in this encounter Plan of Treatment Upcoming Encounters Date Type Department Care Team (Latest Contact Info) Description 07/02/2024 1:00 PM EDT Office Visit Family Medicine [address] [place] [phone] Abby Bennett CRNP [address] [place] [address] [place] [address] 07/02/2024 1:30 PM EDT Office Visit Pharmacy[address] [place] [address] [place] [address] 07/03/2024 7:10 AM EDT Laboratory Lab [facility] [address] [place] [address] [facility] [address] [place] [address] 07/03/2024 1:30 PM EDT Imaging Radiology [address] [place] [address] 07/05/2024 9:15 AM EDT Office Visit Hematology/Oncology [facility] Daryl Roberts [address] [place] [phone] Jitendra Aguero MD [address] [place] [address] 07/10/2024 7:10 AM EDT Laboratory Lab [facility] [address] [employer] [place] [address] [facility] [address] [place] [address] 07/12/2024 1:41 PM EDT Hospital Encounter OR [facility], Operating Room, [facility] - 4th Floor [address] [place] [address] Noemy Carrasco, DO [address] [place] [address] 07/12/2024 1:41 PM EDT - 07/12/2024 2:19 PM EDT Surgery OR [facility], Operating Room, [facility] - 4th Floor [address] [place] [address] Noemy Carrasco, DO [address] [place] [address] COLONOSCOPY FLEXIBLE PROXIMAL DIAGNOSTIC 07/17/2024 7:10 AM EDT Laboratory Lab [facility]bot[facility] [address] [place], [place] [address] M[facility], [facility] [address] [place] [address] 07/24/2024 7:10 AM EDT Laboratory Lab [facility]bot[facility] [address] [place] [address] M[facility], [facility] [address] [place] [address] 07/31/2024 7:10 AM EDT Laboratory Lab [facility] Phlebotomy [facility] [address] [place] [address] M[facility]mg, [facility] [address] [place], [place] [address] 08/07/2024 7:10 AM EDT Laboratory Lab [facility] Phlebot[facility] [address] [place] [address] M[facility], [facility] Draw [address] [place] [address] 08/13/2024 8:30 AM EDT Home Visit [facility] [address] [facility] [place] [address] Marisa Pacheco, TANYA [address] [facility] [place] [address] 12/24/2024 2:30 PM EST Nurse Only Ancillary [address] [place] [address] [place], Nurse [address] [place] [address] 01/13/2025 11:40 AM EST Office Visit Family Medicine [address] [place] [phone] Drhuv Moss MD [address] [place] [address] [place] [address] Scheduled Procedures Name Priority Associated Diagnoses Date/Ti [...] 06/26/2025 06/26/2024, 02/12, 01/24/2024, Additional history exists DTaP,Tdap,and Td Vaccines (3 - Td or Tdap) 11/10/2026 11/10/2016, 03/30/2011 VITAMIN D LEVEL ONCE IN A LIFETIME-USE SMARTSET# [id number] Completed 05/11/2015 RETIRED - COLONOSCOPY-EVERY 5 YRS [...] this encounter Medical Devices Implanted Type Area Litigation Coordinator Device Identifier Shelf Expiration Date Model / Serial / Lot Port Pwr Mri Isp Profile - [id number] Implanted:Qty: 1 on 07/24/2020 by Akash Castillo MD at [facility] Right: Chest CR BARD : PERIPHERAL VASCULAR 04/12/2021 [id number] / / [id number] documented as of this encounter Advance Directives [...] Healthcare Agent [facility] p Communication Juanita Silva Adult Child Health Care Agent Care Teams Study Assistant Relationship Specialty Start Date End Date Dhruv Moss MD [address] [place], [place] [address] [address] PCP - General Family Medicine 08/27/21 documented as of this encounter
--- OUTSIDE RECORDS SUMMARY | 2024-10-10 00:41 | External Medical Summary ---
Author Name Unknown Address Unknown Organization K01:[facility] [address] [facility] [place] [address] Laboratory Report Ordering Provider Test Date Status ANN MUNGUIA 07/03/2024 08:20:00 Final Observation Date Value Abnormality Reference (Units ) Status SYNC LEUKOCYTES IN BLOOD BY AUTOMATED COUNT 07/03/2024 08:20:00 11.06 Above high normal 4.00-10.80 (K/uL) Final Neutrophils/100 leukocytes in Blood by Manual count 07/03/2024 08:20:00 22.0 Below low normal 40.0-75.0 (%) Final Lymphocytes/100 leukocytes in Blood by Manual count 07/03/2024 08:20:00 43.0 Above high normal 18.0-42.0 (%) Final Monocytes/100 leukocytes in Blood by Manual count 07/03/2024 08:20:00 9.0 1.0-11.0 (%) Final Eosinophils/100 leukocytes in Blood by Manual count 07/03/2024 08:20:00 1.0 0.0-6.0 (%) Final Metamyelocytes/100 leukocytes in Blood by Manual count 07/03/2024 08:20:00 3.0 Above high normal <=0.0 (%) Final Myelocytes/100 leukocytes in Blood by Manual count 07/03/2024 08:20:00 7.0 Above high normal <=0.0 (%) Final Blasts/100 leukocytes in Blood by Manual count 07/03/2024 08:20:00 15.0 Above high normal <=0.0 (%) Final Neutrophils [#/volume] in Blood by Manual count 07/03/2024 08:20:00 2.43 1.80-7.70 (K/uL) Final Lymphocytes [#/volume] in Blood by Manual count 07/03/2024 08:20:00 4.76 1.00-4.80 (K/uL) Final Monocytes [#/volume] in Blood by Manual count 07/03/2024 08:20:00 1.00 0.00-1.10 (K/uL) Final Eosinophils [#/volume] in Blood by Manual count 07/03/2024 08:20:00 0.11 0.00-0.70 (K/uL) Final Metamyelocytes [#/volume] in Blood by Manual count 07/03/2024 08:20:00 0.33 Above high normal <=0.00 (K/uL) Final Myelocytes [#/volume] in Blood by Manual count 07/03/2024 08:20:00 0.77 Above high normal <=0.00 (K/uL) Final Blasts [#/volume] in Blood by Manual count 07/03/2024 08:20:00 1.66 Above high normal <=0.00 (K/uL) Final Ovalocytes [Presence] in Blood by Light microscopy 07/03/2024 08:20:00 Moderate Abnormal None Seen Final Performing Location LABORATORY [facility] [place] - [address] [facility] [address]
--- OUTSIDE RECORDS SUMMARY | 2024-10-10 00:42 | External Medical Summary ---
Author Name Unknown Address Unknown Organization K0G:[facility]ORY [place] [address] - [address] [place] [address] Laboratory Report Ordering Provider Test Date Status ANN MUNGUIA 06/26/2024 09:20:00 Final Observation Date Value Abnormality Reference (Units ) Status SYNC LEUKOCYTES IN BLOOD BY AUTOMATED COUNT 06/26/2024 09:20:00 11.77 Above high normal 4.00-10.80 (K/uL) Final Neutrophils/100 leukocytes in Blood by Manual count 06/26/2024 09:20:00 32.0 Below low normal 40.0-75.0 (%) Final Lymphocytes/100 leukocytes in Blood by Manual count 06/26/2024 09:20:00 33.0 18.0-42.0 (%) Final Monocytes/100 leukocytes in Blood by Manual count 06/26/2024 09:20:00 5.0 1.0-11.0 (%) Final Eosinophils/100 leukocytes in Blood by Manual count 06/26/2024 09:20:00 2.0 0.0-6.0 (%) Final Metamyelocytes/100 leukocytes in Blood by Manual count 06/26/2024 09:20:00 7.0 Above high normal <=0.0 (%) Final Myelocytes/100 leukocytes in Blood by Manual count 06/26/2024 09:20:00 10.0 Above high normal <=0.0 (%) Final Promyelocytes/100 leukocytes in Blood by Manual count 06/26/2024 09:20:00 1.0 Above high normal <=0.0 (%) Final Blasts/100 leukocytes in Blood by Manual count 06/26/2024 09:20:00 10.0 Above high normal <=0.0 (%) Final Neutrophils [#/volume] in Blood by Manual count 06/26/2024 09:20:00 3.77 1.80-7.70 (K/uL) Final Lymphocytes [#/volume] in Blood by Manual count 06/26/2024 09:20:00 3.88 1.00-4.80 (K/uL) Final Monocytes [#/volume] in Blood by Manual count 06/26/2024 09:20:00 0.59 0.00-1.10 (K/uL) Final Eosinophils [#/volume] in Blood by Manual count 06/26/2024 09:20:00 0.24 0.00-0.70 (K/uL) Final Metamyelocytes [#/volume] in Blood by Manual count 06/26/2024 09:20:00 0.82 Above high normal <=0.00 (K/uL) Final Myelocytes [#/volume] in Blood by Manual count 06/26/2024 09:20:00 1.18 Above high normal <=0.00 (K/uL) Final Promyelocytes [#/volume] in Blood by Manual count 06/26/2024 09:20:00 0.12 Above high normal <=0.00 (K/uL) Final Blasts [#/volume] in Blood by Manual count 06/26/2024 09:20:00 1.18 Above high normal <=0.00 (K/uL) Final Nucleated erythrocytes/100 leukocytes [Ratio] in Blood by Automated count 06/26/2024 09:20:00 Final Variant lymphocytes [Presence] in Blood by Light microscopy 06/26/2024 09:20:00 Present Abnormal None Seen Final Neutrophils.vacuolated [Presence] in Blood by Light microscopy 06/26/2024 09:20:00 Present Abnormal None Seen Final Performing Location LABORATORY [place] 57-1 0 - [address] [facility] [address]
--- OUTSIDE RECORDS SUMMARY | 2024-10-10 00:42 | External Medical Summary ---
Author Name Unknown Address Unknown Organization K0G:[facility]ATORY [place] 57-[address] - [address] [place] [address] Laboratory Report Ordering Provider Test Date Status ANN MUNGUIA 06/26/2024 09:20:00 Final Observation Date Value Abnormality Reference (Units ) Status WBC, Total 06/26/2024 09:20:00 11.77 Above high normal 4.00-10.80 (K/uL) Final RBC 06/26/2024 09:20:00 2.26 3.85-5.15 (M/uL) Final Hemoglobin 06/26/2024 09:20:00 7.8 Below low normal 12.0-15.3 (g/dL) Final HCT 06/26/2024 09:20:00 23.5 Below low normal 36.0-45.2 (%) Final MCV 06/26/2024 09:20:00 104.0 81.5-97.5 (fL) Final MCH 06/26/2024 09:20:00 34.5 27.0-34.0 (pg) Final MCHC 06/26/2024 09:20:00 33.2 32.0-36.0 (g/dL) Final RDW 06/26/2024 09:20:00 24.2 11.5-15.5 (%) Final Platelets 06/26/2024 09:20:00 <10 Below lower panic limits 140-400 (K/uL) Final MPV 06/26/2024 09:20:00 10.9 6.6-11.1 (fL) Final Performing Location [facility] 0 - [address] [place] [address]
--- OUTSIDE RECORDS SUMMARY | 2024-10-10 00:42 | External Medical Summary | Summary of Care ---
Author Name Unknown Organization [facility] Address [address] [facility] [address] Phone [phone] Care Team Providers Care Transportation Refrigeration Technician Name Role Phone Dhruv Moss MD Primary Care Provide r Encounter Details Date Type Department Care Team (Late st Contact Info) Description 06/20/2024 Result Scan Unspecified Department [facility] [id number] <No scans attached> Allergies No known active allergiesdocumented as of this encounter (statuses as of 06/20/2024) Medications Medication Sig Dispensed Refills Start Date [...] day DXe11.9 300 Each 3 12/16/2021 Active vozeroTouch Verio Flex System w/Device Kit Use as [...] the morning. 30 Tablet 11 05/01/2023 Active Premarin 0.625 MG/GM Vaginal Cream [...] than 8.0% ([facility]) Inject 8 units with breakfast, [...] the morning. 30 mL 04/05/2024 Active Pen [place] 32G X 4 MM Use as directed. [...] 24 Hour (Imdur)Indications:C oronary artery disease involving [place] coronary artery of [place] heart without angina pectoris,HTN, goal below 140/90 [...] as of this encounter (statuses as of 06/20/2024) Active Problems Patient Care Coordination No te Formatting of this note migh t be different from the original. Date of Transplant: 09/01/2021 Conditioning Regimen: Fludarabine / Busulfan 2 with post-transplant Cytoxan ABO/Rh: A Positive CMV status: CMV Positive--- GRID: [id number] 732 / DID: [id number] Matched Unrelated 10/24--- DPB1 Match ABO/Rh: A [...] Thrombocytopenia 12/06/2022 Last Assessment & Plan: Platelets 76782 on 03/20 Questionable hematuria Urinary incontinence 09/12/2022 [...] failure. Does not have any evidence of mktsz-noqdaq-jdse disease Last Assessment & Plan: Continues to [...] -continue venlafaxine Coronary artery disease invo lving inup[place] coronary artery of inup[place] heart without angina pectoris 06/12/2017 Overview: S/P EDIL to LAD on 06/12/17 Last Assessment & Plan: No angina - Continue atorvastatin, isosorbide, metoprolol - no ASA due to thrombocytopenia Dyslipidemia, goal LDL below 70 11/25/2011 Last Assessment & Plan: Patient having no issues. She continues on Lipitor 40 mg daily Last lab I will was that I can find were from [phone] Assessment/plan: Dyslipidemia with patient currently taking Lipitor [...] as of this encounter (statuses as of 06/20/2024) Resolved Problems Problem Noted Date Diagnosed Date [...] as of this encounter (statuses as of 06/20/2024) Immunizations Name Administration Dates Next Due COVID-19 [...] Department Care Team (Latest Contact Info) Description 06/21/2024 4:00 PM EDT [facility] [place] [address] Marisa Pacheco RN [address] [place] [address] 06/26/2024 7:10 AM EDT Laboratory Lab Mobile Phlebotomy [facility] [address] [place] [address] M[facility], G[facility] [address] [place] [address] 07/02/2024 1:00 PM EDT Office Visit Family Medicine [address] [place] [phone] [address] [place] [address] 07/02/2024 1:30 PM EDT Office Visit Pharmacy, [address] [place] [address] [place] [address] 07/03/2024 7:10 AM EDT Laboratory Lab [facility] Phlebot[facility] [address] [place] [address] Mvmg, Gml [facility] [address] [place] [address] 07/03/2024 1:30 PM EDT Imaging Radiology [address] [place] [address] 07/05/2024 9:15 AM EDT Office Visit Hematology/Oncology [place] [address] [facility] [place] [phone] Jitendra Aguero MD [address] [facility] [place] [address] 07/10/2024 7:10 AM EDT Laboratory Lab Mobile Phlebotomy [facility] [address] [place] [address] Mvmg, Gml [facility] Draw [address] [place] [address] 07/12/2024 1:41 PM EDT Hospital Encounter OR [facility], Operating Room, [facility] - 4th Floor [address] [place] [address] Noemy Carrasco, DO [address] [place] [address] 07/12/2024 1:41 PM EDT - 07/12/2024 2:19 PM EDT Surgery OR [facility], Operating Room, [facility] - 4th Floor [address] [facility] [place] [address] Noemy Carrasco, DO [address] [place] [address] COLONOSCOPY FLEXIBLE PROXIMAL DIAGNOSTIC 07/17/2024 7:10 AM EDT Laboratory Lab Mobile Phlebotomy [facility] [address] [place] [address] Mvmg, Gml Mobile Home Draw [address] [place] [address] 07/24/2024 7:10 AM EDT Laboratory Lab Mobile Phlebotomy [facility] [address] [place] [address] [address] Mvmg, Gml [facility] Draw [address] [place] [address] [address] 07/31/2024 7:10 AM EDT Laboratory Lab Mobile Phlebotomy [facility] [address] [facility] [place] [address] Mvmg, Gml Mobile Home Draw [address] [facility] [place] [address] 08/07/2024 7:10 AM EDT Laboratory Lab Mobile Phlebotomy [facility] [address] [facility] [place] [address] Mvmg, Gml Mobile Home Draw [address] [facility] [place] [address] 12/24/2024 2:30 PM EST Nurse Only Ancillary [address] [place] [address] [place], Nurse Annual [address] [place] [address] 01/13/2025 11:40 AM EST Office Visit Family Medicine [address] [place] [phone] Dhruv Moss MD [address] [place] [address] [place] [address] Scheduled Procedures Name Priority Associated Diagnoses Date/Ti [...] 01/02/2024, 11/14, 09/12/2022, Additional history exists GFR 03/06/2025 03/06/2024, 01/11, 06/07/2023, Additional history exists DXA Scan 06/13/2025 06/13/2023, 11/2022, 03/16/2015 DTaP,Tdap,and Td Vaccines (3 - Td or Tdap) 11/10/2026 11/10/2016, 03/30/2011 VITAMIN D LEVEL ONCE IN A LIFETIME-USE SMARTSET# [id number] Completed 05/11/2015 RETIRED - COLONOSCOPY-EVERY 5 YRS [...] this encounter Medical Devices Implanted Type Area Power Transmission Engineer Device Identifier Shelf Expiration Date Model / Serial / Lot Port Pwr Mri Isp Profile - [id number] Implanted:Qty: 1 on 07/24/2020 by Akash Castillo MD at OR [facility] Right: Chest CR BARD : PERIPHERAL VASCULAR 04/12/2021 [id number] / / [id number] documented as of this encounter Procedures Procedure Name Priority Date/Time Associated Diagnosis Comments OUTSIDE LAB RESULTS 06/20/2024 documented in this encounter Results * OUTSIDE LAB RESULTS (06/20/2024) 06/20/2024 Jitendra Aguero MD LABORATORY documented in this [...] Healthcare [facility] Communication Juanita Silva Adult Child Health Care Agent Care Teams Transportation Refrigeration Technician Relationship Specialty Start Date End Date Dhruv Moss MD [address] [place], [place] [address] [address] PCP - General Family Medicine 08/27/21 documented as of this encounter
--- OUTSIDE RECORDS SUMMARY | 2024-10-10 00:42 | External Medical Summary | Summary of Care ---
Author Name Unknown Organization [facility] Address [address] [place] [facility] [place] [address] Phone [phone] Care Team Providers Care Fur Cutter Name Role Phone Dhruv Moss MD Primary Care Provide r Reason for Visit * Reason Onset Date Comments Test Results Lab 06/26/2024 Encounter Details Date Type Department Care Team (Late st Contact Info) Description 06/26/2024 Telephone Hematology/Oncology Treatment, [place] [address] [place] [address] Jitendra Aguero MD [address] [place] [address] Test Results Lab Allergies No known active [...] A1c goal of less than 8.0% ([facility]) Use to test blood sugar three times a day DXe11.9 300 Each 3 12/16/2021 Active PredilyticsTouch Verio Flex System w/Device Kit Use as [...] A1c goal of less than 8.0% ([facility]) Inject 8 units with breakfast, [...] morning. 30 mL 3 04/05/2024 Active Pen [place] 32G X 4 MM Use as directed. [...] [id number] / DID: [id number] Matched Unrelated 10/24--- DPB1 Match ABO/Rh: A [...] Thrombocytopenia 12/06/2022 Last Assessment & Plan: Platelets 87452 on 03/20 Questionable hematuria Urinary incontinence 09/12/2022 [...] failure. Does not have any evidence of umwpe-lxtlap-beov disease Last Assessment & Plan: Continues to [...] was that I can find were from [id number] Assessment/plan: Dyslipidemia with patient currently taking Lipitor [...] mRNA, LNP-s, No Pre serve, 2-Dose Series ([employer]) 02/05/2021,01/08/2021 COVID-19, LNP-s, No Preserve , Ye-sucrose, [...] No 12/22/2023 Does the household have a [facility] healthcare [facility] source of income? (Household - for ages [...] Patient to receive [address] [facility] blood bank. Spoke to Pattie. Spoke with Yasmine at [facility]. Called [facility] central scheduling. Patient scheduled for 06/27/2024 at 1:00 pm. Called and spoke with patient's daughter, Juanita. She verbalized understanding of appt time. Faxed order to [facility]/ blood bank. * Telephone Encounter - Winsome Chang RN - 06/26/2024 12:06 PM EDT Received TT from lab, plt <10. Per parameters, patient to receive platelet transfusion. documented in this encounter Plan of Treatment Upcoming Encounters Date Type Department Care Team (Latest Contact Info) Description 07/02/2024 1:00 PM EDT Office Visit Family Medicine [address] [place] [phone] [address] [place] [address] 07/02/2024 1:30 PM EDT Office Visit Pharmacy, [address] [place] [address] [place] [address] 07/03/2024 7:10 AM EDT Laboratory Lab Mobile Phlebotomy [facility] [address] [place] [address] [facility], [facility] Draw [address] [place] [address] 07/03/2024 1:30 PM EDT Imaging Radiology [address] [place] [address] 07/05/2024 9:15 AM EDT [facility] [address] [facility] [place] [phone] Jitendra Aguero MD [address] [facility] [place] [address] 07/10/2024 7:10 AM EDT Laboratory Lab Mobile Phlebotomy [facility] [address] [place] [address] [facility], [facility] Draw [address] [place] [address] 07/12/2024 1:41 PM EDT Hospital Encounter OR GL, Operating Room, [facility] - 4th Floor [address] [place] [address] Noemy Carrasco, DO [address] [place] [address] 07/12/2024 1:41 PM EDT - 07/12/2024 2:19 PM EDT Surgery OR [facility], Operating Room, [facility] - 4th Floor [address] [place] [address] Noemy Carrasco, DO [address] [place] [address] COLONOSCOPY FLEXIBLE PROXIMAL DIAGNOSTIC 07/17/2024 7:10 AM EDT Laboratory Lab Mobile Phlebotomy [facility] [address] [place] [address] M[facility], [facility] Draw [address] [place] [address] 07/24/2024 7:10 AM EDT Laboratory Lab Mobile Phlebotomy [facility] [address] [place], [place] [address] [facility], [facility] Home Draw [address] [place] [address] 07/31/2024 7:10 AM EDT Laboratory Lab Mobile Phlebotomy [facility] [address] [facility] [place] [address] M[facility], Gml Mobile Home Draw [address] [facility] [place] [address] 08/07/2024 7:10 AM EDT Laboratory Lab Mobile Phlebotomy [facility] [address] [facility] [address] [place] [address] M[facility], Gml Mobile Home Draw [address] [facility] [place] [address] 08/13/2024 8:30 AM EDT Home Visit [facility] [address] [facility] [place] [address] Marisa Pacheco, TANYA [address] [facility] [place] [address] 12/24/2024 2:30 PM EST Nurse Only Ancillary [address] [place] [address] Cristina, Nurse [facility] [address] [place] [address] [place] [address] 01/13/2025 11:40 AM EST Office Visit Family Medicine [address] [place] [phone] Dhruv Moss MD [address] [place] [address] [place] [address] Scheduled Procedures Name Priority Associated Diagnoses Date/Ti [...] D LEVEL ONCE IN A LIFETIME-USE SMARTSET# [id number] Completed 05/11/2015 RETIRED - COLONOSCOPY-EVERY 5 YRS [...] this encounter Medical Devices Implanted Type Area Motion Study Engineer Device Identifier Shelf Expiration Date Model / Serial / Lot Port Pwr Mri Isp Profile - [id number] Implanted:Qty: 1 on 07/24/2020 by Akash Castillo MD at [facility] Right: Chest CR BARD : PERIPHERAL VASCULAR 04/12/2021 [id number] / / [id number] documented as of this encounter Advance Directives [...] Adult Child Health Care Agent Care Teams Fur Cutter Relationship Specialty Start Date End Date Dhruv Moss MD [address] [place] [address] [place] [address] PCP - General Family Medicine 08/27/21 documented as of this encounter
--- OUTSIDE RECORDS SUMMARY | 2024-10-10 00:42 | External Medical Summary | Summary of Care ---
Author Name Unknown Organization [facility] Address [address] [facility] [place] [address] Phone [phone] Care Team Providers Care Medical Support Specialist Name Role Phone Dhruv Moss MD Primary Care Provide r Reason for Visit * Reason Comments [facility]: Maintenance Encounter Details Date Type Department Care Team (Late st Contact Info) Description 06/21/2024 8:30 AM EDT [facility] Visit [facility], [facility] [address] [place] [address] Marisa Pacheco, RN 132 [place] [address] Advanced care planning/counseling discussion* Allergies No known active allergiesdocumented as of this encounter (statuses as of 06/21/2024) Medications Medication Sig Dispensed Refills Start Date [...] for Nausea. 60 Tablet 3 12/09/2021 Active CloudsnapTouch Delica Lancets 30GIndications:Type 2 diabetes mellitus with hemoglobin A1c goal of less than 8.0% ([facility]) Use to test blood sugar three times a day DXe11.9 300 Each 3 12/16/2021 Active CloudsnapTouch Verio Flex System w/Device Kit Use as [...] Release (PriLOSEC)Indicatio ns:MDS (myelodysplastic syndrome), high grade ([facility] [...] the morning. 30 mL 04/05/2024 Active Pen [place] 32G X 4 MM Use as directed. [...] THE MORNING 90 Tablet 1 06/15/2024 Active Myrbetriq 50 MG Oral Tablet Extended Release 24 Hour ([facility])Indications:Urin aj incontinence, unspecified type Take 1 Tablet by mouth in the morning. 30 Tablet 05/01/2023 06/21/20 24 Discontinu ed(Medicat ion List Clean Up) Hospital, Clinic, or Other Facility Administered Medication Ordered Dose Route Frequency Start Date End Date Status NSS 0.9% 1,000 mL bolus infusionIndications:MDS (myelodysplastic syndrome), high grade (HCC),Stem cells transplant status (HCC),Acquired hypothyroidism 1000 mL IV DAILY PRN 12/08/2021 Active documented as of this encounter (statuses as of 06/21/2024) Active Problems Patient Care Coordination No te Formatting of this note migh t be different from the original. Date of Transplant: 09/01/2021 Conditioning Regimen: Fludarabine / Busulfan 2 with post-transplant Cytoxan ABO/Rh: A Positive CMV status: CMV Positive--- GRID: [id number] [id number] / DID: [id number] Matched Unrelated 10/24--- DPB1 Match ABO/Rh: A [...] Thrombocytopenia 12/06/2022 Last Assessment & Plan: Platelets 94382 on 03/20 Questionable hematuria Urinary incontinence 09/12/2022 [...] failure. Does not have any evidence of zumrt-zageqd-vhbo disease Last Assessment & Plan: Continues to [...] was that I can find were from [id number] Assessment/plan: Dyslipidemia with patient currently taking Lipitor [...] as of this encounter (statuses as of 06/21/2024) Resolved Problems Problem Noted Date Diagnosed Date [...] as of this encounter (statuses as of 06/21/2024) Immunizations Name Administration Dates Next Due COVID-19 mRNA, LNP-s, No Pre serve, 2-Dose Series ([employer]) 02/05/2021,01/08/2021 COVID-19, LNP-s, No Preserve , Ye-sucrose, [...] Sign Reading Time Taken Comments Blood Pressure 108/56 06/21/2024 9:29 AM EDT Pulse 80 06/21/2024 9:29 AM EDT Temperature 36.1 C (97 F) 06/21/2024 9:29 AM EDT Respiratory Rate 18 06/21/2024 9:29 AM EDT Oxygen Saturation 99% 06/21/2024 9:29 AM EDT Inhaled Oxygen Concentration - - [...] Progress Notes * Marisa Pacheco RN - 06/21/2024 9:12 AM EDT [facility] Clinical DieticianPlate Maker Visit Date: 06/21/2024 Time: 9:12 AM Name: Ruth Burger : 1950 Current Concerns: Patient seen for follow up- Medical history- MDS- H/o stem cell transplant, CAD, DM2, Osteoarthritis Weekly labs- receiving platelets weekly Reports feeling tired all of the time. Blood sugars ranging 131-272 Scheduled for colonoscopy at end of the month- states her bowels are always loose. VS wnl Lungs clear bilaterally Denies sob No LE edema Voiding without difficulty Appetite good Taking fluids well Problems/Symptoms: Review of Systems Constitutional: Negative. HENT: Negative. Respiratory: Positive for shortness of breath. Cardiovascular: Negative. Gastrointestinal: Negative. Genitourinary: Negative. Musculoskeletal: Positive for arthralgias and gait problem. Skin: Negative. Hematological: Negative. Psychiatric/Behavioral: Negative. Physical Exam: BP 108/56 (BP Site: Left Arm, BP Position: Sitting, BP Cuff Size: Regular) | Pulse 80 | Temp 36.1 C (97 F) (Tympanic) | Resp 18 | LMP 10/29/2000 | SpO2 99% Pain 4- arthritic discomfort- APAP encouraged Physical Exam Constitutional: Appearance: Normal appearance. Cardiovascular: [...] and Affect: Mood normal. Behavior: Behavior normal. [facility]-10 Completed this Visit: No. Routine visit Treatment/Plan: Blood sugars QID Continue medications as prescribed Keep all upcoming MD appointments Fall precautions Fluids encouraged Mobile lab weekly RN CM follow up in 8 weeks Home Interventions Provided: Reinforced current Plan of Care, including self-management and medication regimen Updated Advanced Care Planning Note Patient's Goals of Care: Remain cancer free Get my blood sugar under control Drink enough water Patient's 'Red Flags': "Seeing spots" - indication that H&H is low per patient report "Off balance"- shortness of breath Falls Fever Patient Needs to Remember: Call [facility] at with any new or worsening health concerns or problems, red flag symptoms. Referrals Needed: N/a Follow Up: Is there cellular connectivity/connectivity in the home? Yes Does the patient have internet in the home? Yes Patient encouraged to call the intake phone number for all urgent but not emergent issues. Scheduled to follow up with patient in 8 weeks. Marisa Mendoza RN 06/21/2024 9:12 AM documented in this encounter Miscellaneous Notes * ACP (Advance Care Planning) - Marisa Pacheco RN - 06/21/2024 9:42 AM EDT Patient-centered Communication 06/21/2024 The patient/surrogate voluntarily agreed to participate in advance care planning discussion. They were advised that this is a separate service which may incur out of pocket cost in the form of copayment and/or deductibles. Location: Home Individual(s) present for conversation: Patient Decisions Synopsis SmartLink Most Recent Value Past ~10 years 06/21/2024 09:42 Decisions CPR decision: Patient chooses CPR 06/21/2024 Patient chooses CPR Intubation/Mechanical Ventilation decision: Patient chooses Intubation/mechanical ventilation 06/21/2024 Patient chooses Intubation/mechanical ventilation Non-invasive ventilation or BIPAP decision: Patient chooses non-invasive ventilation. Select interventions below 06/21/2024 Patient chooses non-invasive ventilation. Select interventions below Non-Invasive Ventilation Interventions: NIV 06/21/2024 NIV Antibiotic therapy decision: Patient chooses Antibiotic therapy 06/21/2024 Patient chooses Antibiotic therapy Artificial nutrition decision: Undecided about Artificial nutrition 06/21/2024 Undecided about Artificial nutrition IV hydration decision: Patient chooses IV hydration 06/21/2024 Patient chooses IV hydration Chemotherapy decision: Undecided about Chemotherapy 06/21/2024 Undecided about Chemotherapy Radiation therapy decision: Undecided about Radiation therapy 06/21/2024 Undecided about Radiation therapy Surgical procedure(s) decision: Undecided about Surgical procedure 03/23/2023 Blood transfusion decision: Patient chooses Blood transfusion 06/21/2024 Patient chooses Blood transfusion Lab draw decision: Patient chooses Lab draws 06/21/2024 Patient chooses Lab draws Dialysis decision: Undecided about Dialysis 06/21/2024 Undecided about Dialysis Additional Comments Synopsis SmartLink [...] speak to her daughter or is a [facility] nurse. Once form is found, patient to [...] further hospitalization;Avoid the ICU;Avoid intubation/mechanical ventilation;Avoid the mcc;Avoid symptoms; with dignity (define below) 12/15/2021 Cure;Maintain current functional abilities;Avoid further hospitalization;Avoid the ICU;Avoid intubation/mechanical ventilation;Avoid the mcc;Avoid symptoms; with dignity (define below) with dignity, patient defines as: to not alone, not be a burden 12/15/2021 to not alone, not be a burden The patient's FEARS/WORRIES about illness are: Being a burden to family;Going back to the hospital;Going to a mcc;"Being a vegetable" (define below) 12/15/2021 Being a burden to family;Going back to the hospital;Going to a mcc;"Being a vegetable" (define below) "Being a vegetable", patient defines as: laying there without being able to do anything 12/15/2021 laying there without being able to do anything The patient's cultural or spiritual BELIEFS that may affect health care decisions: Mormon deb 12/15/2021 Mormon deb Source: Content from [employer] Aligning Care With What Matters Most: Synopsis SmartLink Most Recent Value Past ~10 years 06/21/2024 09:42 Aligning Care With What Matters Most Interventions/Choices: CPR;Intubation/mechanical ventilation;Non-invasive ventilation or BIPAP;IV hydration;Blood transfusion;Lab draws;Antibiotic therapy;Artificial nutrition;Chemotherapy;Radiation therapy;Dialysis 06/21/2024 CPR;Intubation/mechanical ventilation;Non-invasive ventilation or BIPAP;IV hydration;Bloodtransfusion;Lab draws;Antibiotic therapy;Artificial nutrition;Chemotherapy;Radiation therapy;Dialysis Rationale for Decisions Synopsis SmartLink Most Recent [...] Intubation/mechanical ventilation decision are: being on it mcc 12/15/2021 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 Source: Content from [employer] 15 minutes spent in direct [id number] discussion today, Marisa Mendoza RN documented in this encounter Plan of Treatment Upcoming Encounters Date Type Department Care Team (Latest Contact Info) Description 06/26/2024 7:10 AM EDT Laboratory Lab Mobile Phlebotomy [facility] [address] [facility] [place] [address] Mvmg, Gml Mobile Home Draw [address] [place] [address] 07/02/2024 1:00 PM EDT Office Visit Family Medicine [address] [place] [phone] Abby Bennett [address] [place] [address] 07/02/2024 1:30 PM EDT Office Visit Pharmacy, [address] [place] [address] [place] [address] 07/03/2024 7:10 AM EDT Laboratory Lab Mobile Phlebotomy [facility] [address] [place] [address] Mvmg, Gml Mobile Home Draw [address] [place] [address] 07/03/2024 1:30 PM EDT Imaging Radiology [address] [place] [address] 07/05/2024 9:15 AM EDT Office Visit Hematology/Oncology [facility] Daryl Roberts [address] [facility] [place] [phone] Jitendra Aguero MD [address] [facility] [place] [address] 07/10/2024 7:10 AM EDT Laboratory Lab Mobile Phlebotomy [facility] [address] [place] [address] Mvmg, Gml Mobile Home Draw [address] [place] [address] 07/12/2024 1:41 PM EDT Hospital Encounter OR GL, Operating Room, [facility] - 4th Floor [address] [place] [address] [place] [address] Noemy Carrasco, DO [address] [place] [address] 07/12/2024 1:41 PM EDT - 07/12/2024 2:19 PM EDT Surgery OR [facility], Operating Room, [facility] - 4th Floor [address] [place], [place] [address] Noemy Carrasco, DO [address] [place] [address] COLONOSCOPY FLEXIBLE PROXIMAL DIAGNOSTIC 07/17/2024 7:10 AM EDT Laboratory Lab Mobile Phlebotomy [facility] [address] [place] [address] Mvmg, Gml Mobile Home Draw [address] [place], [place] [address] 07/24/2024 7:10 AM EDT Laboratory Lab Mobile Phlebotomy [facility] [address] [facility] [place] [address] Mvmg, Gml Mobile Home Draw [address] [place] [address] 07/31/2024 7:10 AM EDT Laboratory Lab Mobile Phlebotomy [facility] [address] [place], [place] [address] Mvmg, Gml Mobile Home Draw [address] [place] [address] 08/07/2024 7:10 AM EDT Laboratory Lab Mobile Phlebotomy [facility] [address] [place], [place] [address] Mvmg, Gml Mobile Home Draw [address] [place], [place] [address] 08/13/2024 8:30 AM EDT [facility] Visit [facility], [facility] [address] [place] [address] Marisa Pacheco, TANYA [address] [place] [address] 12/24/2024 2:30 PM EST Nurse Only Ancillary [address] [place] [address] Cristina, Nurse [facility] [address] [place] [address] [place] [address] 01/13/2025 11:40 AM EST Office Visit Family Medicine [address] [place] [phone] Dhruv Moss MD [address] [place] [address] [place] [id number] Scheduled Procedures Name Priority Associated Diagnoses Date/Ti [...] D LEVEL ONCE IN A LIFETIME-USE SMARTSET# [id number] Completed 05/11/2015 RETIRED - COLONOSCOPY-EVERY 5 YRS [...] this encounter Medical Devices Implanted Type Area Experimental Rocket Sled Mechanic Device Identifier Shelf Expiration Date Model / Serial / Lot Port Pwr Mri Isp Profile - [id number] Implanted:Qty: 1 on 07/24/2020 by Akash Castillo MD at OR [facility] Right: Chest CR BARD : PERIPHERAL VASCULAR 04/12/2021 [id number] / / [id number] documented as of this encounter Visit Diagnoses Diagnosis Advanced care planning/counseling discussion- Primary Other specified counseling Diarrhea documented in this encounter Advance Directives [...] Health Care Agent Care Teams Medical Support Specialist Relationship Specialty Start Date End Date Dhruv Moss MD [address] [place] [address] [place] [address] PCP - General Family Medicine 08/27/21 documented as of this encounter
--- OUTSIDE RECORDS SUMMARY | 2024-10-10 00:42 | External Medical Summary ---
Author Name Unknown Address Unknown Organization [facility] [address] [place] [address] Laboratory Report Ordering Provider Test Date Status SHERLYN RESENDIZ 06/26/2024 09:20:00 Final Observation Date Value Abnormality Reference (Units ) Status BUN 06/26/2024 09:20:00 22 Above high normal 6-20 (mg/dL) Final Creatinine 06/26/2024 09:20:00 1.0 0.5-1.0 (mg/dL) Final Glomerular filtration rate/1.73 sq M.predicted [Volume Rate/Area] in Serum, Plasma or Blood by Creatinine-based formula (CKD-EPI) 06/26/2024 09:20:00 58 Below low normal >=60 (mL/min) Final eGFR is calculated based on the CKD-EPI 2020 equation. Sodium 06/26/2024 09:20:00 138 135-146 (m mol/L) Final Potassium 06/26/2024 09:20:00 4.7 3.5-5.1 (m mol/L) Final Cl 06/26/2024 09:20:00 102 98-107 (mm ol/L) Final CO2 06/26/2024 09:20:00 25 22-32 (mmo l/L) Final Anion gap 06/26/2024 09:20:00 11 7-15 (mmol /L) Final Glucose 06/26/2024 09:20:00 177 Above high normal 70 -120 (mg/dL) Final Albumin 06/26/2024 09:20:00 4.1 3.8-5.0 (g /dL) Final AST (Aspartate aminotransferase) 06/26/2024 09:20:00 20 10-35 (U/L) Fin al Alk Phos 06/26/2024 09:20:00 87 35-130 (U/ L) Final Bilirubin, Total 06/26/2024 09:20:00 0.3 <=1 .2 (mg/dL) Final Calcium 06/26/2024 09:20:00 9.0 8.4-10.2 ( mg/dL) Final Protein 06/26/2024 09:20:00 6.8 6.0-8.3 (g /dL) Final ALT (Alanine aminotransferase) 06/26/2024 09:20:00 21 10-35 (U/L) Jose J molina Performing Location [facility] [address] [facility] [address]
--- OUTSIDE RECORDS SUMMARY | 2024-10-10 00:42 | External Medical Summary | Summary of Care ---
Author Name Unknown Organization [facility] Address [address] [place] [facility] [place] [address] Phone [phone] Care Team Providers Care Hims Manager Name Role Phone Dhruv Moss MD Primary Care Provide r Reason for Visit * Reason Onset Date Comments Test Results Lab 06/26/2024 Encounter Details Date Type Department Care Team (Late st Contact Info) Description 06/26/2024 Telephone Hematology/Oncology Treatment, [place] [address] [place] [address] Jitendra Aguero MD [address] [place] [address] Test Results Lab Allergies No known active [...] day DXe11.9 300 Each 3 12/16/2021 Active Origami EnergyTouch Verio Flex System w/Device Kit Use as [...] ([facility]ER[facility]) Inject 8 units with breakfast, 4 units [...] morning. 30 mL 3 04/05/2024 Active Pen Dexter 32G X 4 MM Use as directed. [...] 3553 0000 2079 7075 732 / DID: [id number] Matched Unrelated 10/24--- DPB1 Match ABO/Rh: A [...] Thrombocytopenia 12/06/2022 Last Assessment & Plan: Platelets 57929 on 03/20 Questionable hematuria Urinary incontinence 09/12/2022 [...] failure. Does not have any evidence of aatpf-fbhhcx-yumb disease Last Assessment & Plan: Continues to [...] was that I can find were from [phone] Assessment/plan: Dyslipidemia with patient currently taking Lipitor [...] mRNA, LNP-s, No Pre serve, 2-Dose Series ([employer]) 02/05/2021,01/08/2021 COVID-19, LNP-s, No Preserve , Ye-sucrose, [...] No 12/22/2023 Does the household have a [facility] source of income? (Household - for [...] Patient to receive 1 unit platelets. Called [facility] blood bank. Spoke to Pattie. Spoke with Yasmine at [facility]. Called [facility] central scheduling. Patient scheduled for 06/27/2024 at 1:00 pm. Called and spoke with patient's daughter, Juanita. She verbalized understanding of appt time. Faxed order to [facility]/ blood bank. * Telephone Encounter - Winsome Chang RN - 06/26/2024 12:06 PM EDT Received TT from lab, plt <10. Per parameters, patient to receive platelet transfusion. documented in this encounter Plan of Treatment Upcoming Encounters Date Type Department Care Team (Latest Contact Info) Description 07/02/2024 1:00 PM EDT Office Visit Family Medicine [address] [place] [phone] [address] [place] [address] 07/02/2024 1:30 PM EDT Office Visit Pharmacy, [address] [place] [address] [place] [address] 07/03/2024 7:10 AM EDT Laboratory Lab Mobile Phlebotomy [facility] [address] [place] [address] Mvmg, Gml Mobile Home Draw [address] [employer] [place] [address] 07/03/2024 1:30 PM EDT Imaging Radiology [address] [place] [address] 07/05/2024 9:15 AM EDT [facility] [address] [facility] [place] [address] Jitendra Aguero MD [address] [facility] [place] [address] 07/10/2024 7:10 AM EDT Laboratory Lab Mobile Phlebotomy [facility] [address] [employer] [address] [place] [address] Mvmg, Gml Mobile Home Draw [address] [place] [address] 07/12/2024 1:41 PM EDT Hospital Encounter OR GL, Operating Room, [facility] - 4th Floor [address] [place] [address] Noemy Carrasco, DO [address] [place] [address] 07/12/2024 1:41 PM EDT - 07/12/2024 2:19 PM EDT Surgery OR [facility], Operating Room, [facility] - 4th Floor [address] [place] [address] Noemy Carrasco, DO [address] [place] [address] COLONOSCOPY FLEXIBLE PROXIMAL DIAGNOSTIC 07/17/2024 7:10 AM EDT Laboratory Lab Mobile Phlebotomy [facility] [address] [place] [address] Mvmg, Gml Mobile Home Draw [address] [place] [address] 07/24/2024 7:10 AM EDT Laboratory Lab Mobile Phlebotomy [facility] [address] [place], [place] [address] Mvmg, Gml Mobile Home Draw [address] [place] [address] 07/31/2024 7:10 AM EDT Laboratory Lab Mobile Phlebotomy [facility] [address] [facility] [place] [address] Mvmg, Gml Mobile Home Draw [address] [facility] [place] [address] 08/07/2024 7:10 AM EDT Laboratory Lab Mobile Phlebotomy [facility] [address] [employer] [facility] [address] [place] [address] Mvmg, Gml Mobile Home Draw [address] [facility] [place] [address] 08/13/2024 8:30 AM EDT Home Visit [facility] [address] [facility] [place] [address] Marisa Pacheco, TANYA [address] [facility] [place] [address] 12/24/2024 2:30 PM EST Nurse Only Ancillary [address] [place] [address] Cristina, Nurse Annual Wellness [address] [place] [address] [place] [address] 01/13/2025 11:40 AM EST Office Visit Family Medicine [address] [place] [phone] Dhruv Moss MD [address] [place] [address] [place] [address] Scheduled Procedures Name Priority Associated Diagnoses Date/Ti [...] D LEVEL ONCE IN A LIFETIME-USE SMARTSET# 70710 Completed 05/11/2015 RETIRED - COLONOSCOPY-EVERY 5 YRS [...] this encounter Medical Devices Implanted Type Area Ice Skater Device Identifier Shelf Expiration Date Model / Serial / Lot Port Pwr Mri Isp Profile - [id number] Implanted:Qty: 1 on 07/24/2020 by Akash Castillo MD at [facility] Right: Chest CR BARD : PERIPHERAL VASCULAR 04/12/2021 [id number] / / [id number] documented as of this encounter Advance Directives [...] Adult Child Health Care Agent Care Teams Hims Manager Relationship Specialty Start Date End Date Dhruv Moss MD [address] [place] [address] [place] [address] PCP - General Family Medicine 08/27/21 documented as of this encounter
--- OUTSIDE RECORDS SUMMARY | 2024-10-10 00:43 | External Medical Summary | Summary of Care ---
Author Name Unknown Organization [facility] Address [address] [place] [address] Phone [phone] Care Team Providers Care Computed Tomography Scanner Operator Name Role Phone Dhruv Moss MD Primary Care Provide r Encounter Details Date Type Department Care Team (Late st Contact Info) Description 06/06/2024 Result Scan Unspecified Department Jitendra Aguero MD 200 [place] [address] <No scans attached> Allergies No known active allergiesdocumented as of this encounter (statuses as of 06/10/2024) Medications Medication Sig Dispensed Refills Start Date [...] for Nausea. 60 Tablet 3 12/09/2021 Active ClearPoint Learning SystemsToGeniusMatcher Delica Lancets 30GIndications:Type 2 diabetes mellitus with hemoglobin A1c goal of less than 8.0% ([facility]) Use to test blood sugar three times a day DXe11.9 300 Each 3 12/16/2021 Active CICCWORLD Flex System w/Device Kit Use as directed [...] Release (PriLOSEC)Indication s:MDS (myelodysplastic syndrome), high grade ([facility]) Take 1 capsule by mouth twice daily 180 Capsule 2 06/10/2023 Active NovoLIN R 100 UNIT/ML Injection Solution (insulin REGULAR human)Indications:Ty pe 2 diabetes mellitus with hemoglobin A1c goal of less than 8.0% ([facility]) Inject 8 units with breakfast, 4 units with lunch, and 6 units with dinner + sliding scale of 1 units per every 20 over 140 MAX DAILY DOSE 50 units 50 mL 5 07/25/2023 Active Isosorbide Mononitrate ER 30 MG Oral Tablet Extended Release 24 Hour (Imdur)Indications:C oronary artery disease involving [place] coronary artery of [place] heart without angina pectoris,HTN, goal below 140/90 TAKE 1 TABLET BY MOUTH IN THE MORNING 90 Tablet 12/18/2023 Active Levothyroxine Sodium 88 MCG Oral Tablet [...] morning. 30 mL 3 04/05/2024 Active Pen [place] 32G X 4 MM Use as directed. [...] before bedtime 60 Tablet 11 05/13/2024 Active Hospital, Clinic, or Other Facility Administered Medication Ordered Dose Route Frequency Start Date End Date Status NSS 0.9% 1,000 mL bolus infusionIndications:MDS (myelodysplastic syndrome), high grade (HCC),Stem cells transplant status (HCC),Acquired hypothyroidism 1000 mL IV DAILY PRN 12/08/2021 Active documented as of this encounter (statuses as of 06/10/2024) Active Problems Patient Care Coordination No te Formatting of this note migh t be different from the original. Date of Transplant: 09/01/2021 Conditioning Regimen: Fludarabine / Busulfan 2 with post-transplant Cytoxan ABO/Rh: A Positive CMV status: CMV Positive--- GRID: [id number] [id number] 7075 732 / DID: [id number] Matched Unrelated 10/24--- DPB1 Match ABO/Rh: A [...] Thrombocytopenia 12/06/2022 Last Assessment & Plan: Platelets 64792 on 03/20 Questionable hematuria Urinary incontinence 09/12/2022 [...] failure. Does not have any evidence of ydndx-vafnqi-gpsk disease Last Assessment & Plan: Continues to [...] -continue venlafaxine Coronary artery disease invo lving [place] coronary artery of [place] heart without angina pectoris 06/12/2017 Overview: S/P EDIL to LAD on 06/12/17 Last Assessment & Plan: No angina - Continue atorvastatin, isosorbide, metoprolol - no ASA due to thrombocytopenia Dyslipidemia, goal LDL below 70 11/25/2011 Last Assessment & Plan: Patient having no issues. She continues on Lipitor 40 mg daily Last lab I will was that I can find were from [phone] Assessment/plan: Dyslipidemia with patient currently taking Lipitor [...] as of this encounter (statuses as of 06/10/2024) Resolved Problems Problem Noted Date Diagnosed Date [...] as of this encounter (statuses as of 06/10/2024) Immunizations Name Administration Dates Next Due COVID-19 mRNA, LNP-s, No Pre serve, 2-Dose Series ([employer]) 02/05/2021,01/08/2021 COVID-19, LNP-s, No Preserve , Ye-sucrose, [...] Department Care Team (Latest Contact Info) Description 06/12/2024 7:10 AM EDT Laboratory Lab Mobile Phlebotomy [facility] [address] [place] [address] Mvmg, Gml Mobile Home Draw [address] [facility] [place] [address] 06/19/2024 7:10 AM EDT Laboratory Lab Mobile Phlebotomy [facility] [address] [place] [address] Mvmg, Gml Mobile Home Draw 25[address] [facility] [place] [address] 06/21/2024 4:00 PM EDT Home Visit [facility] [address] [facility] [place] [address] Marisa Pacheco, TANYA [address] [place] [address] 06/26/2024 7:10 AM EDT Laboratory Lab Mobile Phlebotomy [facility] [address] [email or web address] [place] [address] Mvmg, Gml Mobile Home Draw [address] [facility] [place] [address] 07/02/2024 1:00 PM EDT Office Visit Family Medicine [address] [place] [phone] Abby Bennett CRNP [address] [place] [address] [place] [address] 07/02/2024 1:30 PM EDT Office Visit Pharmacy, [address] [place] [address] [place] [address] 07/03/2024 7:10 AM EDT Laboratory Lab Mobile Phlebotomy [facility] [address] [place] [address] Mvmg, Gml Mobile Home Draw [address] [place] [address] 07/03/2024 1:30 PM EDT Imaging Radiology [address] [place] [address] 07/05/2024 9:15 AM EDT [facility] [address] [place] [phone] Jitendra Aguero MD [address] [place] [address] 07/10/2024 7:10 AM EDT Laboratory Lab Mobile Phlebotomy [facility] [address] [place] [address] Mvmg, Gml Mobile Home Draw 2520 [email or web address] [place] [address] 07/12/2024 2:18 PM EDT Hospital Encounter OR GL, Operating Room, [facility] - 4th Floor [address] [place] [address] Noemy Carrasco, DO [address] [place] [address] 07/12/2024 2:18 PM EDT - 07/12/2024 2:56 PM EDT Surgery OR [facility], Operating Room, [facility] - 4th Floor [address] [place] [address] Noemy Carrasco, DO [address] [place] [address] COLONOSCOPY FLEXIBLE PROXIMAL DIAGNOSTIC 07/17/2024 7:10 AM EDT Laboratory Lab Mobile Phlebotomy [facility] [address] [place] [address] Mvmg, Gml Mobile Home Draw [address] [place] [address] 07/24/2024 7:10 AM EDT Laboratory Lab Mobile Phlebotomy [facility] [address] [place] [address] Mvmg, Gml Mobile Home Draw [address] [place], [place] [address] 07/31/2024 7:10 AM EDT Laboratory Lab Mobile Phlebotomy [facility] [address] [place] [address] Mvmg, Gml Mobile Home Draw [address] [place], [place] [address] 08/07/2024 7:10 AM EDT Laboratory Lab Mobile Phlebotomy [facility] [address] [place] [address] Mvmg, Gml Mobile Home Draw [address] [place], [place] [address] 12/24/2024 2:30 PM EST Nurse Only Ancillary [address] [place] [address] [place], Nurse Annual [address] [place] [address] 01/13/2025 11:40 AM EST Office Visit Family Medicine [address] [place] [phone] Dhruv Moss MD [address] [place] [address] [place] [address] Scheduled Procedures Name Priority Associated Diagnoses Date/Ti me COLONOSCOPY FLEXIBLE PROXIMA L DIAGNOSTIC Recall Diarrhea 07/12/2024 2:18 PM EDT Health Maintenance Due Date Last [...] 11/22/2024 05/22/2024, 06/2024, 12/06/2022, Additional history exists Depression Monitoring 12/22/2024 12/22/2023 TSH 01/02/2025 01/02/2024, 11/14, 09/12/2022, Additional history exists GFR 03/06/2025 03/06/2024, 01/11, 06/07/2023, Additional history exists DXA Scan 06/13/2025 06/13/2023, 0811/2022, 03/16/2015 DTaP,Tdap,and Td Vaccines (3 - Td or Tdap) 11/10/2026 11/10/2016, 03/30/2011 VITAMIN D LEVEL ONCE IN A LIFETIME-USE SMARTSET# 26596 Completed 05/11/2015 RETIRED - COLONOSCOPY-EVERY 5 YRS AGES 18-100 Discontinued 05/06/2019, 05/06/2019 Zoster Vaccines Completed 10/30/2020, 02/2020, 07/13/2020, Additional history exists *BASELINE EKG FOR HTN Completed 10/26/2021 , 09/05/2021, 09/04/2021, Additional history exists Pneumococcal Vaccine: 65+ Years [...] this encounter Medical Devices Implanted Type Area Certified Maintenance Welder Device Identifier Shelf Expiration Date Model / Serial / Lot Port Pwr Mri Isp Profile - [id number] Implanted:Qty: 1 on 07/24/2020 by Akash Castillo MD at [facility] Right: Chest CR BARD : PERIPHERAL VASCULAR 04/12/2021 [id number] / / [id number] documented as of this encounter Procedures Procedure Name Priority Date/Time Associated Diagnosis Comments OUTSIDE LAB RESULTS 06/06/2024 documented in this encounter Results * OUTSIDE LAB RESULTS (06/06/2024) 06/06/2024 Jitendra Aguero MD LABORATORY documented in this [...] Agents on File Name Relationship Healthcare Agent [facility] Communication Juanita Silva Adult Child Health Care Agent Care Teams Computed Tomography Scanner Operator Relationship Specialty Start Date End Date Dhruv Moss MD [address] [place] [address] [phone] PCP - General Family Medicine 08/27/21 documented as of this encounter
--- OUTSIDE RECORDS SUMMARY | 2024-10-10 00:43 | External Medical Summary ---
Author Name Unknown Address Unknown Organization K01:[facility]ATORY [facility] - [facility] [address] [place] [address] Laboratory Report Ordering Provider Test Date Status ANN MUNGUIA 06/19/2024 08:19:00 Final Observation Date Value Abnormality Reference (Units ) Status WBC, Total 06/19/2024 08:19:00 9.05 4.00-10.80 (K/uL) Final RBC 06/19/2024 08:19:00 2.34 3.85-5.15 (M/uL) Final Hemoglobin 06/19/2024 08:19:00 7.9 Below low normal 12.0-15.3 (g/dL) Final HCT 06/19/2024 08:19:00 24.0 Below low normal 36.0-45.2 (%) Final MCV 06/19/2024 08:19:00 102.6 81.5-97.5 (fL) Final MCH 06/19/2024 08:19:00 33.8 27.0-34.0 (pg) Final MCHC 06/19/2024 08:19:00 32.9 32.0-36.0 (g/dL) Final RDW 06/19/2024 08:19:00 23.6 11.5-15.5 (%) Final Platelets 06/19/2024 08:19:00 4 Below lower panic limits 140-400 (K/uL) Final MPV 06/19/2024 08:19:00 Final No result - abnormal platele t distribution. Nucleated erythrocytes/100 l eukocytes [Ratio] in Blood by Automated count 06/19/2024 08:19:00 0 <=0 (/100 WBCs) Final Performing Location LABORATORY [facility] - [address] [place] [address]
--- OUTSIDE RECORDS SUMMARY | 2024-10-10 00:43 | External Medical Summary | Summary of Care ---
Author Name Unknown Organization [facility] Address [address] [place] [address] Phone [phone] Care Team Providers Care Straddle Buggy Operator Name Role Phone Dhruv Moss MD Primary Care Provide r Reason for Visit * Reason Onset Date Comments Test Results 06/20/2024 Encounter Details Date Type Department Care Team (Late st Contact Info) Description 06/20/2024 Telephone Hematology/Oncology [facility] Alejandra [place] [address] [place] [address] Jitendra Aguero MD 200 [facility] [place] [address] Test Results Allergies No known active allergiesdocumented [...] for Nausea. 60 Tablet 3 12/09/2021 Active Aratana TherapeuticsTouch Delica Lancets 30GIndications:Type 2 diabetes mellitus with hemoglobin A1c goal of less than 8.0% ([facility]) Use to test blood sugar three times a day DXe11.9 300 Each 3 12/16/2021 Active Aratana TherapeuticsToUpplication Verio Flex System w/Device Kit Use as [...] of less than 8.0% ([facility]) Inject 8 units with breakfast, 4 [...] the morning. 30 mL 04/05/2024 Active Pen [place] 32G X 4 MM Use as directed. [...] 3553 0000 2079 7075 732 / DID: [id number] Matched Unrelated 10/24--- DPB1 Match ABO/Rh: A [...] Thrombocytopenia 12/06/2022 Last Assessment & Plan: Platelets 32319 on 03/20 Questionable hematuria Urinary incontinence 09/12/2022 [...] failure. Does not have any evidence of ktdgn-jwxxvx-iwcg disease Last Assessment & Plan: Continues to [...] was that I can find were from [id number] Assessment/plan: Dyslipidemia with patient currently taking Lipitor [...] mRNA, LNP-s, No Pre serve, 2-Dose Series ([employer]) 02/05/2021,01/08/2021 COVID-19, LNP-s, No Preserve , Ye-sucrose, [...] Telephone Encounter - Makenzie Barth LPN - 06/20/2024 8:41 AM EDT Patient to receive 1 unit platelets. Called [facility] blood bank. Spoke with Riki. Spoke with Madeline at [facility]. Called [facility] central scheduling. Patient scheduled for today at 12:00 pm. Patient's daughter Juanita states she is aware of patient's platelet count and verbalized understanding of appt time. Faxed order to [facility]/ blood bank. * Telephone Encounter - Makenzie Barth LPN - 06/20/2024 8:33 AM EDT ----- Message from Jitendra Aguero MD sent at 06/20/2024 6:19 AM EDT ----- Blood workup done on 06/19/2024: - WBC 9000, H&H of 7.9/24, platelet count of 4000. I will transfuse one unit of platelet at [facility]. documented in this encounter Plan of Treatment Upcoming Encounters Date Type Department Care Team (Latest Contact Info) Description 06/21/2024 4:00 PM EDT Home Visit [facility] [place], [address] [place] [address] Marisa Pacheco, TANYA [address] [place] [address] 06/26/2024 7:10 AM EDT Laboratory Lab Mobile Phlebotomy [facility] [address] [place] [address] Mvmg, Gml Mobile Home Draw [address] [place] [address] 07/02/2024 1:00 PM EDT Office Visit Family Medicine [address] [place] [phone] Abby Bennett [address] [place] [address] 07/02/2024 1:30 PM EDT Office Visit Pharmacy, [address] [place] [address] [place] [address] 07/03/2024 7:10 AM EDT Laboratory Lab Mobile Phlebotomy [facility] [address] [place] [address] Mvmg, Gml Mobile Home Draw [address] [employer] [place] [address] 07/03/2024 1:30 PM EDT Imaging Radiology [address] [place] [address] 07/05/2024 9:15 AM EDT Office Visit Hematology/Oncology [facility] [address] [place] [phone] Jitendra Aguero MD 200 [facility] [place] [address] 07/10/2024 7:10 AM EDT Laboratory Lab Mobile Phlebotomy [facility] [address] [place] [address] Mvmg, Gml Mobile Home Draw [address] [place] [address] 07/12/2024 1:41 PM EDT Hospital Encounter OR GL, Operating Room, [facility] - 4th Floor [address] [place] [address] Noemy Carrasco, DO [address] [place] [address] 07/12/2024 1:41 PM EDT - 07/12/2024 2:19 PM EDT Surgery OR [facility], Operating Room, [facility] - 4th Floor [address] [place] [address] Noemy Carrasco, DO [address] [place] [address] COLONOSCOPY FLEXIBLE PROXIMAL DIAGNOSTIC 07/17/2024 7:10 AM EDT Laboratory Lab Mobile Phlebotomy [facility] [address] [place], [place] [address] Mvmg, Gml Mobile Home Draw [address] [place] [address] 07/24/2024 7:10 AM EDT Laboratory Lab Mobile Phlebotomy [facility] 2520 [facility] [place], [place] [address] Mvmg, Gml Mobile Home Draw 25[address] [place] [address] 07/31/2024 7:10 AM EDT Laboratory Lab Mobile Phlebotomy [facility] [address] [place] [address] Mvmg, Gml Mobile Home Draw [address] [place] [address] 08/07/2024 7:10 AM EDT Laboratory Lab Mobile Phlebotomy [facility] [address] [facility] [place] [address] Mvmg, Gml Mobile Home Draw 2520 [facility] [place] [address] 12/24/2024 2:30 PM EST Nurse Only Ancillary [address] [place] [address] Cristina, Nurse Annual Wellness [address] [place] [address] [place] [address] 01/13/2025 11:40 AM EST Office Visit Family Medicine [address] [place] [phone] Dhruv Moss MD [address] [place] [address] [place] [address] Scheduled Procedures Name Priority Associated Diagnoses Date/Ti [...] D LEVEL ONCE IN A LIFETIME-USE SMARTSET# 46477 Completed 05/11/2015 RETIRED - COLONOSCOPY-EVERY 5 YRS [...] this encounter Medical Devices Implanted Type Area Order Manager Device Identifier Shelf Expiration Date Model / Serial / Lot Port Pwr Mri Isp Profile - [id number] Implanted:Qty: 1 on 07/24/2020 by Akash Castillo MD at [facility] Right: Chest CR BARD : PERIPHERAL VASCULAR 04/12/2021 [id number] / / [id number] documented as of this encounter Advance Directives [...] Agents on File Name Relationship Healthcare Agent [facility] p Communication Juanita Silva Adult Child Health Care Agent Care Teams Straddle Buggy Operator Relationship Specialty Start Date End Date Dhruv Moss MD [address] [place] [phone] PCP - General Family Medicine 08/27/21 documented as of this encounter
--- OUTSIDE RECORDS SUMMARY | 2024-10-10 00:43 | External Medical Summary | Summary of Care ---
Author Name Unknown Organization [facility] Address [address] [place] [address] Phone [phone] Care Team Providers Care Timekeeping Supervisor Name Role Phone Dhruv Moss MD Primary Care Provide r Reason for Visit * Reason Onset Date Comments Test Results Lab 06/13/2024 Encounter Details Date Type Department Care Team (Late st Contact Info) Description 06/13/2024 Telephone Hematology/Oncology Kiesha Alejandra [place] [address] [place] [phone] Jitendra Aguero MD [address] [place] [address] Test Results Lab Allergies No known active allergiesdocumented as of this encounter (statuses as of 06/13/2024) Medications Medication Sig Dispensed Refills Start Date [...] for Nausea. 60 Tablet 3 12/09/2021 Active getFound.ieTouch Delica Lancets 30GIndications:Type 2 diabetes mellitus with hemoglobin A1c goal of less than 8.0% ([facility]) Use to test blood sugar three times a day DXe11.9 300 Each 3 12/16/2021 Active getFound.ieToLibra Alliance Verio Flex System w/Device Kit Use as [...] goal of less than 8.0% ([facility]) Inject 8 units with breakfast, 4 [...] the morning. 30 mL 04/05/2024 Active Pen Kipton 32G X 4 MM Use as directed. [...] three times a day DXe11.9 300 Strip 04/22/2024 Active Acyclovir 800 MG Oral Tablet [...] as of this encounter (statuses as of 06/13/2024) Active Problems Patient Care Coordination No te Formatting of this note migh t be different from the original. Date of Transplant: 09/01/2021 Conditioning Regimen: Fludarabine / Busulfan 2 with post-transplant Cytoxan ABO/Rh: A Positive CMV status: CMV Positive--- GRID: [id number] / DID: [id number] Matched Unrelated 10/24--- DPB1 Match ABO/Rh: A [...] Thrombocytopenia 12/06/2022 Last Assessment & Plan: Platelets 08097 on 03/20 Questionable hematuria Urinary incontinence 09/12/2022 [...] failure. Does not have any evidence of pceal-kjywml-opyn disease Last Assessment & Plan: Continues to [...] was that I can find were from [id number] Assessment/plan: Dyslipidemia with patient currently taking Lipitor [...] as of this encounter (statuses as of 06/13/2024) Resolved Problems Problem Noted Date Diagnosed Date [...] as of this encounter (statuses as of 06/13/2024) Immunizations Name Administration Dates Next Due COVID-19 mRNA, LNP-s, No Pre serve, 2-Dose Series (Gutenberg[employer]) 02/05/2021,01/08/2021 COVID-19, LNP-s, No Preserve , Ye-sucrose, [...] Telephone Encounter - Makenzie Barth LPN - 06/13/2024 8:56 AM EDT Reviewed lab results with daughter, Juanita; Hgb:6.9 Plt count: 6 Daughter verbalized understanding. Patient to receive 1 unit of prbc and 1 unit of platelets. Called [facility] blood bank. Spoke with Kirsten. Spoke with Smita at [facility]. Called [facility] central scheduling. Patient scheduled for today at 11:30 am. Daughter verbalized understanding of appt time. Faxed order to [facility]/ blood bank. * Telephone Encounter - Makenzie Barth LPN - 06/13/2024 8:44 AM EDT ----- Message from Jitendra Aguero MD sent at 06/13/2024 6:38 AM EDT ----- Blood workup done on 06/12/2024: - WBC 8200, H&H of 6.9/21, platelet count of 6000. I would consider one unit of PRBC and one unit of platelet transfusion at [facility]. documented in this encounter Plan of Treatment Upcoming Encounters Date Type Department Care Team (Latest Contact Info) Description 06/19/2024 7:10 AM EDT Laboratory Lab Mobile Phlebotomy [facility] [address] [facility] [place] [address] M[facility], Gml [facility] [address] [place] [address] 06/21/2024 4:00 PM EDT [facility] Visit [facility] [place], [facility] [place] [address] Marisa Pacheco, TANYA [address] [place] [address] 06/26/2024 7:10 AM EDT Laboratory Lab Mobile Phlebotomy [facility] [address] [place] [address] M[facility], Gml [facility] [address] [place] [address] 07/02/2024 1:00 PM EDT Office Visit Family Medicine [address] [place] [phone] [address] [place] [address] 07/02/2024 1:30 PM EDT Office Visit Pharmacy, [address] [place] [address] [place] [address] 07/03/2024 7:10 AM EDT Laboratory Lab Mobile Phlebotomy [facility] [address] [place] [address] M[facility], G[facility] Draw [address] [place] [address] 07/03/2024 1:30 PM EDT Imaging Radiology [address] [place] [address] 07/05/2024 9:15 AM EDT [facility] [address] [place] [phone] Jitendra Aguero MD [address] [place] [address] 07/10/2024 7:10 AM EDT Laboratory Lab Mobile Phlebotomy [facility] [address] [place] [employer] [place], [place] [address] M[facility], Gml Mobile Home Draw [address] [employer] [place], [place] [address] 07/12/2024 2:18 PM EDT Hospital Encounter OR [facility], Operating Room, [facility] - 4th Floor [address] [place] [address] Noemy Carrasco, DO [address] [place] [address] 07/12/2024 2:18 PM EDT - 07/12/2024 2:56 PM EDT Surgery OR [facility], Operating Room, [facility] - 4th Floor [address] [place] [address] Noemy Carrasco, DO [address] [place] [address] COLONOSCOPY FLEXIBLE PROXIMAL DIAGNOSTIC 07/17/2024 7:10 AM EDT Laboratory Lab Mobile Phlebotomy [facility] [address] [place], [place] [address] Mvmg, Gml Mobile Home Draw [address] [employer] [place], [place] [address] 07/24/2024 7:10 AM EDT Laboratory Lab Mobile Phlebotomy [facility] [address] [address] Mvmg, Gml Mobile Home Draw [address] [address] 07/31/2024 7:10 AM EDT Laboratory Lab Mobile Phlebotomy [facility] [address] [place], [place] [address] Mvmg, Gml Mobile Home Draw [address] [employer] [place] [address] 08/07/2024 7:10 AM EDT Laboratory Lab Mobile Phlebotomy [facility] [address] [facility] [place] [address] Mvmg, Gml Mobile Home Draw [address] [facility] [place] [address] 12/24/2024 2:30 PM EST Nurse Only Ancillary [address] [place] [address] [place], Nurse [facility] [address] [place] [address] [place] [address] 01/13/2025 11:40 AM EST Office Visit Family Medicine [address] [place] [phone] Dhruv Moss MD [address] [place] [address] [place] [address] Scheduled Procedures Name Priority Associated Diagnoses Date/Ti [...] D LEVEL ONCE IN A LIFETIME-USE SMARTSET# 40181 Completed 05/11/2015 RETIRED - COLONOSCOPY-EVERY 5 YRS [...] this encounter Medical Devices Implanted Type Area Picker Machine Operator Device Identifier Shelf Expiration Date Model / Serial / Lot Port Pwr Mri Isp Profile - [id number] Implanted:Qty: 1 on 07/24/2020 by Akash Castillo MD at OR [facility] Right: Chest CR BARD : PERIPHERAL VASCULAR 04/12/2021 [id number] / / [id number] documented as of this encounter Advance Directives [...] Adult Child Health Care Agent Care Teams Timekeeping Supervisor Relationship Specialty Start Date End Date Dhruv Moss MD [address] [place] [address] [place] [address] PCP - General Family Medicine 08/27/21 documented as of this encounter
--- OUTSIDE RECORDS SUMMARY | 2024-10-10 00:43 | External Medical Summary ---
Author Name Unknown Address Unknown Organization K01:LABORATORY [facility] [place] - [facility] [address] [facility] [address] [place] [address] Laboratory Report Ordering Provider Test Date Status ANN MUNGUIA 06/12/2024 08:15:00 Final Observation Date Value Abnormality Reference (Units ) Status WBC, Total 06/12/2024 08:15:00 8.26 4.00-10.80 (K/uL) Final RBC 06/12/2024 08:15:00 2.04 3.85-5.15 (M/uL) Final Hemoglobin 06/12/2024 08:15:00 6.9 Below low normal 12.0-15.3 (g/dL) Final HCT 06/12/2024 08:15:00 21.1 Below low normal 36.0-45.2 (%) Final MCV 06/12/2024 08:15:00 103.4 81.5-97.5 (fL) Final MCH 06/12/2024 08:15:00 33.8 27.0-34.0 (pg) Final MCHC 06/12/2024 08:15:00 32.7 32.0-36.0 (g/dL) Final RDW 06/12/2024 08:15:00 25.3 11.5-15.5 (%) Final Platelets 06/12/2024 08:15:00 6 Below lower panic limits 140-400 (K/uL) Final MPV 06/12/2024 08:15:00 11.6 6.6-11.1 (fL) Final Nucleated erythrocytes/100 leukocytes [Ratio] in Blood by Automated count 06/12/2024 08:15:00 0 <=0 (/100 WBCs) Final Performing Location LABORATORY [facility] [place] - [address] [place] [address]
--- OUTSIDE RECORDS SUMMARY | 2024-10-10 00:43 | External Medical Summary | Summary of Care ---
Author Name Unknown Organization [facility] Address [address] [place] [place] [address] Phone [phone] Care Team Providers Care Facility Designer Name Role Phone Dhruv Moss MD Primary Care Provide r Encounter Details Date Type Department Care Team (Late st Contact Info) Description 06/04/2024 Population Health External Data Unspecified Department Allergies No known active allergiesdocumented as of this encounter (statuses as of 06/07/2024) Medications Medication Sig Dispensed Refills Start Date [...] day DXe11.9 300 Each 3 12/16/2021 Active BookFreshToPinPay Verio Flex System w/Device Kit Use as [...] 24 Hour (Imdur)Indications:C oronary artery disease involving comanche coronary artery of comanche heart without angina pectoris,HTN, goal below 140/90 [...] morning. 30 mL 3 04/05/2024 Active Pen Melvin 32G X 4 MM Use as directed. [...] as of this encounter (statuses as of 06/07/2024) Active Problems Patient Care Coordination No te Formatting of this note migh t be different from the original. Date of Transplant: 09/01/2021 Conditioning Regimen: Fludarabine / Busulfan 2 with post-transplant Cytoxan ABO/Rh: A Positive CMV status: CMV Positive--- GRID: [id number] [id number] / DID: [id number] Matched Unrelated 10/24--- DPB1 Match ABO/Rh: A [...] Thrombocytopenia 12/06/2022 Last Assessment & Plan: Platelets [address]342 on 03/20 Questionable hematuria Urinary incontinence 09/12/2022 [...] failure. 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 She continues on Lipitor 40 mg daily Last lab I will was that I can find were from [phone] Assessment/plan: Dyslipidemia with patient currently taking Lipitor [...] as of this encounter (statuses as of 06/07/2024) Resolved Problems Problem Noted Date Diagnosed Date [...] as of this encounter (statuses as of 06/07/2024) Immunizations Name Administration Dates Next Due COVID-19 [...] EDT Laboratory Lab Mobile Phlebotomy [facility] [address] [facility] [place] [address] Mvmg, Gml Mobile Home Draw [address] [place] [employer] [place] [address] 06/19/2024 7:10 AM EDT Laboratory Lab Mobile Phlebotomy [facility] [address] [facility] [place] [address] Mvmg, Gml Mobile Home Draw [address] [facility] [place] [address] 06/21/2024 4:00 PM EDT [facility] [place] [address] Marisa Pacheco, TANYA [address] [place] [address] 06/26/2024 7:10 AM EDT Laboratory Lab Mobile Phlebotomy [facility] [address] [facility] [place] [address] Mvmg, Gml Mobile Home Draw [address] [facility] [place] [address] 07/02/2024 1:00 PM EDT Office Visit Family Medicine [address] [place] [phone] Abby Bennett CRNP [address] [place] [address] [place] [address] 07/02/2024 1:30 PM EDT Office Visit Pharmacy, [address] [place] [address] [place] [address] 07/03/2024 7:10 AM EDT Laboratory Lab Mobile Phlebotomy [facility] [address] [facility] [place] [address] Mvmg, Gml Mobile Home Draw [address] [facility] [place] [address] 07/03/2024 1:30 PM EDT Imaging Radiology [address] [place] [address] 07/05/2024 9:15 AM EDT [facility] [address] [place] [phone] Jitendra Aguero MD [address] [place] [address] 07/10/2024 7:10 AM EDT Laboratory Lab Mobile Phlebotomy [facility] [address] [facility] [place] [address] Mvmg, Gml Mobile Home Draw [address] [facility] [place] [address] 07/12/2024 2:18 PM EDT Hospital Encounter OR [facility], Operating Room, [facility] - 4th Floor [address] [place] [address] Noemy Carrasco, DO [address] [place] [address] 07/12/2024 2:18 PM EDT - 07/12/2024 2:56 PM EDT Surgery OR [facility], Operating Room, [facility] - 4th Floor [address] [place] [address] Noemy Carrasco, DO [address] [place] [address] COLONOSCOPY FLEXIBLE PROXIMAL DIAGNOSTIC 07/17/2024 7:10 AM EDT Laboratory Lab Mobile Phlebotomy [facility] [address] [facility] [place] [address] Mvmg, Gml Mobile Home Draw [address] [facility] [place], [place] [address] 07/24/2024 7:10 AM EDT Laboratory Lab Mobile Phlebotomy [facility] [address] [facility] [place] [address] Mvmg, Gml Mobile Home Draw [address] [facility] [place], [place] [address] 07/31/2024 7:10 AM EDT Laboratory Lab Mobile Phlebotomy [facility] [address] [facility] [place] [address] Mvmg, Gml Mobile Home Draw [address] [facility] [place], [place] [address] 08/07/2024 7:10 AM EDT Laboratory Lab Mobile Phlebotomy [facility] [address] [facility] [address] [place] [address] Mvmg, Gml Mobile Home Draw [address] [place] [address] [address] [place], [place] [address] 12/24/2024 2:30 PM EST Nurse Only Ancillary [address] [place] [address] [place], Nurse Annual [address] [place] [address] 01/13/2025 11:40 AM EST Office Visit Family Medicine [address] [place] [phone] Dhruv Moss MD [address] [place] [address] [place] [address] Scheduled Procedures Name Priority Associated Diagnoses Date/Ti [...] 05/22/2024, 0 06/2024, 12/06/2022, Additional history exists Depression Monitoring 12/22/2024 12/22/2023 TSH 01/02/2025 01/02/2024, 11/14, 09/12/2022, Additional history exists GFR 03/06/2025 03/06/2024, 01/11, 06/07/2023, Additional history exists DXA Scan 06/13/2025 06/13/2023, 11/2022, 03/16/2015 DTaP,Tdap,and Td Vaccines (3 - Td or Tdap) 11/10/2026 11/10/2016, 03/30/2011 VITAMIN D LEVEL ONCE IN A LIFETIME-USE SMARTSET# [id number] Completed 05/11/2015 RETIRED - COLONOSCOPY-EVERY 5 YRS AGES 18-100 Discontinued 05/06/2019, 05/06/2019 Zoster Vaccines Completed 10/30/2020, 0 02/2020, 07/13/2020, Additional history exists *BASELINE EKG [...] encounter Medical Devices Implanted Type Area Production Generalist Device Identifier Shelf Expiration Date Model / Serial / Lot Port Pwr Mri Isp Profile - [id number] Implanted:Qty: 1 on 07/24/2020 by Akash Castillo MD at OR [facility] Right: Chest CR BARD : PERIPHERAL VASCULAR 04/12/2021 [id number] / / [id number] documented as of this encounter Advance Directives [...] Agents on File Name Relationship Healthcare Agent [facility] p Communication Juanita Silva Adult Child Health Care Agent Care Teams Facility Designer Relationship Specialty Start Date End Date Dhruv Moss MD [facility] [place] [address] PCP - General Family Medicine 08/27/21 documented as of this encounter
--- OUTSIDE RECORDS SUMMARY | 2024-10-10 00:43 | External Medical Summary ---
Author Name Unknown Address Unknown Organization K01:LABORATORY [facility] - [address] [place] [address] Laboratory Report Ordering Provider Test Date Status ANN MUNGUIA 06/19/2024 08:19:00 Final Observation Date Value Abnormality Reference (Units ) Status SYNC LEUKOCYTES IN BLOOD BY AUTOMATED COUNT 06/19/2024 08:19:00 9.05 4.00-10.80 (K/uL) Final Neutrophils/100 leukocytes in Blood by Manual count 06/19/2024 08:19:00 33.0 Below low normal 40.0-75.0 (%) Final Lymphocytes/100 leukocytes in Blood by Manual count 06/19/2024 08:19:00 30.0 18.0-42.0 (%) Final Monocytes/100 leukocytes in Blood by Manual count 06/19/2024 08:19:00 7.0 1.0-11.0 (%) Final Basophils/100 leukocytes in Blood by Manual count 06/19/2024 08:19:00 1.0 0.0-2.0 (%) Final Metamyelocytes/100 leukocytes in Blood by Manual count 06/19/2024 08:19:00 3.0 Above high normal <=0.0 (%) Final Myelocytes/100 leukocytes in Blood by Manual count 06/19/2024 08:19:00 20.0 Above high normal <=0.0 (%) Final Blasts/100 leukocytes in Blood by Manual count 06/19/2024 08:19:00 6.0 Above high normal <=0.0 (%) Final Neutrophils [#/volume] in Blood by Manual count 06/19/2024 08:19:00 2.99 1.80-7.70 (K/uL) Final Lymphocytes [#/volume] in Blood by Manual count 06/19/2024 08:19:00 2.72 1.00-4.80 (K/uL) Final Monocytes [#/volume] in Blood by Manual count 06/19/2024 08:19:00 0.63 0.00-1.10 (K/uL) Final Basophils [#/volume] in Blood by Manual count 06/19/2024 08:19:00 0.09 0.00-0.20 (K/uL) Final Metamyelocytes [#/volume] in Blood by Manual count 06/19/2024 08:19:00 0.27 Above high normal <=0.00 (K/uL) Final Myelocytes [#/volume] in Blood by Manual count 06/19/2024 08:19:00 1.81 Above high normal <=0.00 (K/uL) Final Blasts [#/volume] in Blood by Manual count 06/19/2024 08:19:00 0.54 Above high normal <=0.00 (K/uL) Final Variant lymphocytes [Presence] in Blood by Light microscopy 06/19/2024 08:19:00 Present Abnormal None Seen Final Neutrophils.vacuolated [Presence] in Blood by Light microscopy 06/19/2024 08:19:00 Present Abnormal None Seen Final Performing Location [facility] [address] [facility] [address]
--- OUTSIDE RECORDS SUMMARY | 2024-10-10 00:43 | External Medical Summary | Summary of Care ---
Author Name Unknown Organization [facility] Address [address] [place] [address] Phone [phone] Care Team Providers Care Cardiology Coordinator Name Role Phone Dhruv Moss MD Primary Care Provide r Reason for Visit * Reason Onset Date Comments Test Results 06/20/2024 Encounter Details Date Type Department Care Team (Late st Contact Info) Description 06/20/2024 Telephone Hematology/Oncology [facility] Alejandra [place] [address] [place] [phone] Jitendra Aguero MD 200 [facility] [address] Test Results Allergies No known active allergiesdocumented [...] for Nausea. 60 Tablet 3 12/09/2021 Active Donate Your DesktopTouch Delica Lancets 30GIndications:Type 2 diabetes mellitus with hemoglobin A1c goal of less than 8.0% ([facility]) Use to test blood sugar three times a day DXe11.9 300 Each 3 12/16/2021 Active Donate Your DesktopToGenAudio Verio Flex System w/Device Kit Use as [...] the morning. 30 mL 04/05/2024 Active Pen Galena 32G X 4 MM Use as directed. [...] 24 Hour (Imdur)Indications:C oronary artery disease involving nenana coronary artery of nenana heart without angina pectoris,HTN, goal below 140/90 [...] 3553 0000 2079 7075 732 / DID: [id number] Matched Unrelated 10/24--- DPB1 Match ABO/Rh: A [...] Thrombocytopenia 12/06/2022 Last Assessment & Plan: Platelets [address] on 03/20 Questionable hematuria Urinary incontinence 09/12/2022 [...] failure. Does not have any evidence of lokdr-qlzgvz-pxih disease Last Assessment & Plan: Continues to [...] -continue venlafaxine Coronary artery disease invo lving nenana coronary artery of nenana heart without angina pectoris 06/12/2017 Overview: S/P EDIL to LAD on 06/12/17 Last Assessment & Plan: No angina - Continue atorvastatin, isosorbide, metoprolol - no ASA due to thrombocytopenia Dyslipidemia, goal LDL below 70 11/25/2011 Last Assessment & Plan: Patient having no issues. She continues on Lipitor 40 mg daily Last lab I will was that I can find were from [phone] Assessment/plan: Dyslipidemia with patient currently taking Lipitor [...] mRNA, LNP-s, No Pre serve, 2-Dose Series ([employer]) 02/05/2021,01/08/2021 COVID-19, LNP-s, No Preserve , Ye-sucrose, [...] Patient to receive 1 unit platelets. Called [facility] blood bank. Spoke with Riki. Spoke with Madeline at [facility]. Called [facility] central scheduling. Patient scheduled for today at 12:00 pm. Patient's daughter Juanita states she is aware of patient's platelet count and verbalized understanding of appt time. Fax[facility] order to [facility]/ blood bank. * Telephone Encounter - Makenzie Barth LPN - 06/20/2024 8:33 AM EDT ----- Message from Jitendra Aguero MD sent at 06/20/2024 6:19 AM EDT ----- Blood workup done on 06/19/2024: - WBC 9000, H&H of 7.9/24, platelet count of 4000. I will transfuse one unit of platelet at [facility]. documented in this encounter Plan of Treatment Upcoming Encounters Date Type Department Care Team (Latest Contact Info) Description 06/21/2024 4:00 PM EDT Home Visit [facility], [address] [place] [address] Marisa Pacheco, TANYA [address] [place] [address] 06/26/2024 7:10 AM EDT Laboratory Lab Mobile Phlebotomy [facility] [address] [place] [address] Mvmg, Gml Mobile Home Draw [address] [place] [address] 07/02/2024 1:00 PM EDT Office Visit Family Medicine [address] [place] [phone] Abby Bennett [address] [place] [address] 07/02/2024 1:30 PM EDT Office Visit Pharmacy, [address] [place] [address] [place] [address] 07/03/2024 7:10 AM EDT Laboratory Lab Mobile Phlebotomy [facility] [address] [place] [address] Mvmg, Gml Mobile Home Draw [address] [place] [address] 07/03/2024 1:30 PM EDT Imaging Radiology [address] [place] [address] 07/05/2024 9:15 AM EDT Office Visit Hematology/Oncology State Daryl Soto [address] [place] [address] [phone] Jitendra Aguero MD [address] [facility] [place] [address] 07/10/2024 7:10 AM EDT Laboratory Lab Mobile Phlebotomy [facility] [address] [place] [address] Mvmg, Gml Mobile Home Draw [address] [place] [address] 07/12/2024 1:41 PM EDT Hospital Encounter OR GL, Operating Room, [facility] - 4th Floor [address] [place] [address] Noemy Carrasco, DO [address] [place] [address] 07/12/2024 1:41 PM EDT - 07/12/2024 2:19 PM EDT Surgery [facility], Operating Room, [facility] - 4th Floor [address] [place] [address] Noemy Carrasco, DO [address] [place] [address] COLONOSCOPY FLEXIBLE PROXIMAL DIAGNOSTIC 07/17/2024 7:10 AM EDT Laboratory Lab Mobile Phlebotomy [facility] [address] [place], [place] [address] Mvmg, Gml Mobile Home Draw [address] [place] [address] 07/24/2024 7:10 AM EDT Laboratory Lab Mobile Phlebotomy [facility] [address] [facility] [place], [place] [address] Mvmg, Gml Mobile Home Draw [address] [place] [address] 07/31/2024 7:10 AM EDT Laboratory Lab Mobile Phlebotomy [facility] [address] [place] [address] Mvmg, Gml Mobile Home Draw [address] [place] [address] 08/07/2024 7:10 AM EDT Laboratory Lab Mobile Phlebotomy [facility] [address] [facility] [address] Mvmg, Gml Mobile Home Draw [address] [place] [address] 12/24/2024 2:30 PM EST Nurse Only Ancillary [address] [place] [address] Cristina, Nurse Annual Wellness [address] [place] [address] [place] [address] 01/13/2025 11:40 AM EST Office Visit Family Medicine [address] [place] [phone] Dhruv Moss MD [address] [place] [address] [place] [address] Scheduled Procedures Name Priority Associated Diagnoses Date/Ti [...] D LEVEL ONCE IN A LIFETIME-USE SMARTSET# [id number] Completed 05/11/2015 RETIRED - COLONOSCOPY-EVERY 5 YRS [...] this encounter Medical Devices Implanted Type Area Swedish Masseuse Device Identifier Shelf Expiration Date Model / Serial / Lot Port Pwr Mri Isp Profile - [id number] Implanted:Qty: 1 on 07/24/2020 by Akash Castillo MD at [facility] Right: Chest CR BARD : PERIPHERAL VASCULAR 04/12/2021 [id number] / / [id number] documented as of this encounter Advance Directives [...] Agents on File Name Relationship Healthcare Agent [facility] p Communication Juanita Silva Adult Child Health Care Agent Care Teams Cardiology Coordinator Relationship Specialty Start Date End Date Dhruv Moss MD [address] [place] [id number] PCP - General Family Medicine 08/27/21 documented as of this encounter
--- OUTSIDE RECORDS SUMMARY | 2024-10-10 00:43 | External Medical Summary ---
Author Name Unknown Address Unknown Organization K01:[facility] [address] [facility] [place] [address] Laboratory Report Ordering Provider Test Date Status ANN MUNGUIA 06/12/2024 08:15:00 Final Observation Date Value Abnormality Reference (Units ) Status SYNC LEUKOCYTES IN BLOOD BY AUTOMATED COUNT 06/12/2024 08:15:00 8.26 4.00-10.80 (K/uL) Final Neutrophils/100 leukocytes in Blood by Manual count 06/12/2024 08:15:00 21.0 Below low normal 40.0-75.0 (%) Final Lymphocytes/100 leukocytes in Blood by Manual count 06/12/2024 08:15:00 41.0 18.0-42.0 (%) Final Monocytes/100 leukocytes in Blood by Manual count 06/12/2024 08:15:00 10.0 1.0-11.0 (%) Final Eosinophils/100 leukocytes in Blood by Manual count 06/12/2024 08:15:00 1.0 0.0-6.0 (%) Final Myelocytes/100 leukocytes in Blood by Manual count 06/12/2024 08:15:00 10.0 Above high normal <=0.0 (%) Final Promyelocytes/100 leukocytes in Blood by Manual count 06/12/2024 08:15:00 3.0 Above high normal <=0.0 (%) Final Blasts/100 leukocytes in Blood by Manual count 06/12/2024 08:15:00 14.0 Above high normal <=0.0 (%) Final Neutrophils [#/volume] in Blood by Manual count 06/12/2024 08:15:00 1.73 Below low normal 1.80-7.70 (K/uL) Final Lymphocytes [#/volume] in Blood by Manual count 06/12/2024 08:15:00 3.39 1.00-4.80 (K/uL) Final Monocytes [#/volume] in Blood by Manual count 06/12/2024 08:15:00 0.83 0.00-1.10 (K/uL) Final Eosinophils [#/volume] in Blood by Manual count 06/12/2024 08:15:00 0.08 0.00-0.70 (K/uL) Final Myelocytes [#/volume] in Blood by Manual count 06/12/2024 08:15:00 0.83 Above high normal <=0.00 (K/uL) Final Promyelocytes [#/volume] in Blood by Manual count 06/12/2024 08:15:00 0.25 Above high normal <=0.00 (K/uL) Final Blasts [#/volume] in Blood by Manual count 06/12/2024 08:15:00 1.16 Above high normal <=0.00 (K/uL) Final Performing Location LABORATORY [facility] - [address] [facility] [address]
--- OUTSIDE RECORDS SUMMARY | 2024-10-10 00:43 | External Medical Summary | Summary of Care ---
Author Name Unknown Organization [facility] Address [address] [place] [address] Phone [phone] Care Team Providers Care Reimbursement Consultant Name Role Phone Dhruv Moss MD Primary Care Provide r Reason for Visit * Reason Comments eRx-Medication Refill Encounter Details Date Type Department Care Team (Late st Contact Info) Description 06/14/2024 Refill Family Medicine [address] [phone] Dhruv Moss MD [address] [place] [address] [place] [address] Coronary artery disease involving [place] coronary artery of [place] heart without angina pectoris; HTN, goal below 140/90 Allergies No known active allergiesdocumented as of this encounter (statuses as of 06/15/2024) Medications Medication Sig Dispensed Refills Start Date [...] for Nausea. 60 Tablet 3 2 Active KopiTouch Delica Lancets 30GIndications:Type 2 diabetes mellitus with hemoglobin A1c goal of less than 8.0% ([facility]) Use to test blood sugar three times a day DXe11.9 300 Each 3 2 Active KopiToProgressus Verio Flex System w/Device Kit Use as [...] the morning. 30 Tablet 11 3 Active Premarin 0.625 MG/GM Vaginal Cream [...] morning. 30 mL 3 4 Active Pen Sentinel 32G X 4 MM Use as directed. [...] 24 Hour (Imdur)Indications: Coronary artery disease involving [place] coronary artery of [place] heart without angina pectoris,HTN, goal below 140/90 TAKE ONE TABLET BY MOUTH IN THE MORNING 90 Tablet 1 4 Active Isosorbide Mononitrate ER 30 MG Oral Tablet Extended Release 24 Hour (Imdur)Indications: Coronary artery disease involving [place] coronary artery of [place] heart without angina pectoris,HTN, goal below 140/90 TAKE 1 TABLET BY MOUTH IN THE MORNING 90 Tablet 4 06/15/20 24 Discontinued Hospital, Clinic, or Other Facility Administered Medication Ordered Dose Route Frequency Start Date End Date Status NSS 0.9% 1,000 mL bolus infusionIndications:MDS (myelodysplastic syndrome), high grade (HCC),Stem cells transplant status (HCC),Acquired hypothyroidism 1000 mL IV DAILY PRN 12/08/2021 Active documented as of this encounter (statuses as of 06/15/2024) Active Problems Patient Care Coordination No te Formatting of this note migh t be different from the original. Date of Transplant: 09/01/2021 Conditioning Regimen: Fludarabine / Busulfan 2 with post-transplant Cytoxan ABO/Rh: A Positive CMV status: CMV Positive--- GRID: [id number] 732 / DID: [id number] Matched Unrelated 10/24--- DPB1 Match ABO/Rh: A [...] Thrombocytopenia 12/06/2022 Last Assessment & Plan: Platelets 57135 on 03/20 Questionable hematuria Urinary incontinence 09/12/2022 [...] failure. Does not have any evidence of paajt-arureu-lnvq disease Last Assessment & Plan: Continues to [...] -continue venlafaxine Coronary artery disease invo lving [place] coronary artery of [place] heart without angina pectoris 06/12/2017 Overview: S/P EDIL to LAD on 06/12/17 Last Assessment & Plan: No angina - Continue atorvastatin, isosorbide, metoprolol - no ASA due to thrombocytopenia Dyslipidemia, goal LDL below 70 11/25/2011 Last Assessment & Plan: Patient having no issues. She continues on Lipitor 40 mg daily Last lab I will was that I can find were from [phone] Assessment/plan: Dyslipidemia with patient currently taking Lipitor [...] as of this encounter (statuses as of 06/15/2024) Resolved Problems Problem Noted Date Diagnosed Date [...] as of this encounter (statuses as of 06/15/2024) Immunizations Name Administration Dates Next Due COVID-19 [...] encounter Miscellaneous Notes * Telephone Encounter - Juan Francisco [facility] - 06/15/2024 6:27 AM EDTSigned Prescriptions: Disp Refills Isosorbide Mononitrate ER 30 MG Oral Table*90 Tab*1 Sig: TAKE ONE TABLET BY MOUTH IN THE MORNINGAuthorizing Provider: DHRUV MOSS User: JUAN FRANCISCO FELIX documented in this encounter Plan of Treatment Upcoming Encounters Date Type Department Care Team (Latest Contact Info) Description 06/19/2024 7:10 AM EDT Laboratory Lab Mobile Phlebotomy [facility] [address] [place] [address] Mvmg, Gml Mobile Home Draw [address] [place] [address] 06/21/2024 4:00 PM EDT [facility] Visit [facility] [address] [place] [address] Marisa Pacheco, TANYA [address] [place] [address] 06/26/2024 7:10 AM EDT Laboratory Lab Mobile Phlebotomy [facility] [address] [place] [address] Mvmg, Gml Mobile Home Draw [address] [place] [address] 07/02/2024 1:00 PM EDT Office Visit Family Medicine [address] [place] [phone] Abby Bennett [address] [place] [address] 07/02/2024 1:30 PM EDT Office Visit Pharmacy, [address] [place] [address] [place] [address] 07/03/2024 7:10 AM EDT Laboratory Lab Mobile Phlebotomy [facility] [address] [place] [address] Mvmg, Gml Mobile Home Draw [address] [place] [address] 07/03/2024 1:30 PM EDT Imaging Radiology [address] [place] [address] 07/05/2024 9:15 AM EDT Office Visit Hematology/Oncology State Daryl S[place] [address] [place] [phone] Jitendra Aguero MD [address] [place] [address] 07/10/2024 7:10 AM EDT Laboratory Lab Mobile Phlebotomy [facility] [address] [place] [address] Mvmg, Gml Mobile Home Draw [address], [place] [address] 07/12/2024 2:18 PM EDT Hospital Encounter OR GL, Operating Room, [facility] - 4th Floor [address] [facility] [place] [address] Noemy Carrasco, DO [address] [place] [address] 07/12/2024 2:18 PM EDT - 07/12/2024 2:56 PM EDT Surgery OR [facility], Operating Room, [facility] - 4th Floor [address] [place] [address] Noemy Carrasco, DO [address] [place] [address] COLONOSCOPY FLEXIBLE PROXIMAL DIAGNOSTIC 07/17/2024 7:10 AM EDT Laboratory Lab Mobile Phlebotomy [facility] [address] [place] [address] [address] Mvmg, Gml Mobile Home Draw [address], [place] [address] 07/24/2024 7:10 AM EDT Laboratory Lab Mobile Phlebotomy [facility] [address], [place] [address] Mvmg, Gml Mobile Home Draw [address] [place] [address] 07/31/2024 7:10 AM EDT Laboratory Lab Mobile Phlebotomy [facility] [address], [place] [address] Mvmg, Gml Mobile Home Draw [address], [place] [address] 08/07/2024 7:10 AM EDT Laboratory Lab Mobile Phlebotomy [facility] [address], [place] [address] Mvmg, Gml Mobile Home Draw [address] [place] [address] 12/24/2024 2:30 PM EST Nurse Only Ancillary [address] [place] [address] [place], Nurse Annual Wellness [address] [place] [address] [place] [address] 01/13/2025 11:40 AM EST Office Visit Family Medicine [address] [place] [phone] Dhruv Moss MD [address] [place] [address] [place] [address] Scheduled Procedures Name Priority Associated Diagnoses Date/Ti [...] 05/22/2024, 01/0 06/2024, 12/06/2022, Additional history exists Depression Monitoring 12/22/2024 12/22/2023 TSH 01/02/2025 01/02/2024, 11/14, 09/12/2022, Additional history exists GFR 03/06/2025 03/06/2024, 01/11, 06/07/2023, Additional history exists DXA Scan 06/13/2025 06/13/2023, 11/2022, 03/16/2015 DTaP,Tdap,and Td Vaccines (3 - Td or Tdap) 11/10/2026 11/10/2016, 03/30/2011 VITAMIN D LEVEL ONCE IN A LIFETIME-USE SMARTSET# [id number] Completed 05/11/2015 RETIRED - COLONOSCOPY-EVERY 5 YRS [...] encounter Medical Devices Implanted Type Area Supervisor Plasma Device Identifier Shelf Expiration Date Model / Serial / Lot Port Pwr Mri Isp Profile - [id number] Implanted:Qty: 1 on 07/24/2020 by Akash Castillo MD at OR [facility] Right: Chest CR BARD : PERIPHERAL VASCULAR 04/12/2021 [id number] / / [id number] documented as of this encounter Visit Diagnoses Diagnosis Coronary artery disease involving [place] coronary artery of [place] heart without angina pectoris HTN, goal below 140/90 Unspecified essential hypertension Diarrhea documented in this encounter Advance Directives [...] Healthcare Agent [facility] p Communication [facility] Adult Child Health Care Agent Care Teams Reimbursement Consultant Relationship Specialty Start Date End Date Dhruv Moss MD [address] [place], [place] [address] [address] PCP - General Family Medicine 08/27/21 documented as of this encounter
--- OUTSIDE RECORDS SUMMARY | 2024-10-10 00:44 | External Medical Summary | Summary of Care ---
Author Name Unknown Organization [facility] Address [address] [place] [address] Phone [phone] Care Team Providers Care Acidizer Name Role Phone Dhruv Moss MD Primary Care Provide r Reason for Visit * Reason Onset Date Comments Test Results Lab 05/30/2024 Encounter Details Date Type Department Care Team (Late st Contact Info) Description 05/30/2024 Telephone Hematology/Oncology Treatment, [place] [address] [place] [address] Jitendra Aguero MD [address] [place] [address] Test Results Lab Allergies No known active allergiesdocumented as of this encounter (statuses as of 05/30/2024) Medications Medication Sig Dispensed Refills Start Date [...] day DXe11.9 300 Each 3 12/16/2021 Active [employer] Verio Flex System w/Device Kit Use as [...] 24 Hour (Imdur)Indications:C oronary artery disease involving swinomish coronary artery of swinomish heart without angina pectoris,HTN, goal below 140/90 [...] morning. 30 mL 3 04/05/2024 Active Pen Leadore 32G X 4 MM Use as directed. [...] as of this encounter (statuses as of 05/30/2024) Active Problems Patient Care Coordination No te Formatting of this note migh t be different from the original. Date of Transplant: 09/01/2021 Conditioning Regimen: Fludarabine / Busulfan 2 with post-transplant Cytoxan ABO/Rh: A Positive CMV status: CMV Positive--- GRID: [id number] / DID: [id number] Matched Unrelated 10/24--- DPB1 Match ABO/Rh: A [...] Thrombocytopenia 12/06/2022 Last Assessment & Plan: Platelets 83392 on 03/20 Questionable hematuria Urinary incontinence 09/12/2022 [...] failure. Does not have any evidence of mghoo-ywrqnp-esif disease Last Assessment & Plan: Continues to [...] -continue venlafaxine Coronary artery disease invo lving swinomish coronary artery of swinomish heart without angina pectoris 06/12/2017 Overview: S/P EDIL to LAD on 06/12/17 Last Assessment & Plan: No angina - Continue atorvastatin, isosorbide, metoprolol - no ASA due to thrombocytopenia Dyslipidemia, goal LDL below 70 11/25/2011 Last Assessment & Plan: Patient having no issues. She continues on Lipitor 40 mg daily Last lab I will was that I can find were from [phone] Assessment/plan: Dyslipidemia with patient currently taking Lipitor [...] as of this encounter (statuses as of 05/30/2024) Resolved Problems Problem Noted Date Diagnosed Date [...] as of this encounter (statuses as of 05/30/2024) Immunizations Name Administration Dates Next Due COVID-19 mRNA, LNP-s, No Pre serve, 2-Dose Series ([employer]) 02/05/2021,01/08/2021 COVID-19, LNP-s, No Preserve , [...] Telephone Encounter - Winsome Chang RN - 05/30/2024 3:[address] 13. No transfusion needed. Left message for patient that no transfusion needed but to return call if any questions/ concerns/ issues. documented in this encounter Plan of Treatment Upcoming Encounters Date Type Department Care Team (Latest Contact Info) Description 06/04/2024 8:30 AM EDT Home Visit [facility] [address] [place] [address] Marisa Pacheco, RN [address] [place] [address] 06/05/2024 7:10 AM EDT Laboratory Lab [facility] [address] [place], [place] [address] M[facility] Draw [address] [place] [address] 06/12/2024 7:10 AM EDT Laboratory [facility] [address] [place], [place] [address] M[facility], [facility] Draw [address] [place], [place] [address] 06/19/2024 7:10 AM EDT Laboratory Lab [facility] [address] [employer] [place] [address] [facility], [facility] Draw [address] [place] [address] [place] [address] 06/26/2024 7:10 AM EDT Laboratory Lab [facility] [address] [employer] [place] [address] [facility], [facility] Draw [address] [employer] [place] [address] 07/02/2024 1:00 PM EDT Office Visit Family Medicine [address] [place] [phone] Abby Bennett [address] [place] [address] 07/02/2024 1:30 PM EDT Office Visit Pharmacy, [address] [place] [address] [place] [address] 07/03/2024 7:10 AM EDT Laboratory Lab [facility] Phlebot[facility] [address] [place] [address] M[facility], G[facility] Draw [address] [facility] [place] [address] 07/03/2024 1:30 PM EDT Imaging Radiology [address] [place] [address] 07/05/2024 9:15 AM EDT Office Visit Hematology/Oncology [place] [facility] [address] [place] [phone] Jitendra Aguero MD [address] [place] [address] 07/10/2024 7:10 AM EDT Laboratory Lab [facility]le[facility] [address] [place] [address] [facility], [facility] Draw [address] [place] [address] 07/12/2024 2:18 PM EDT Hospital Encounter OR GL, Operating Room, [facility] - 4th Floor [address] [place] [address] Noemy Carrasco, DO [address] [place] [address] 07/12/2024 2:18 PM EDT - 07/12/2024 2:56 PM EDT Surgery OR [facility], Operating Room, [facility] - 4th Floor [address] [place] [address] Noemy Carrasco, DO [address] [place] [address] COLONOSCOPY FLEXIBLE PROXIMAL DIAGNOSTIC 07/17/2024 7:10 AM EDT Laboratory Lab [facility]lebot[facility] [address] [address] Mv[facility], G[facility] Draw [address] [address] 07/24/2024 7:10 AM EDT Laboratory Lab [facility]lebot[facility] [address] [place], [place] [address] Mv[facility], Gml [facility] Draw [address] [address] 07/31/2024 7:10 AM EDT Laboratory Lab [facility]le[facility] [address] [address] Mv[facility], Gml [facility] Draw [address] [address] 08/07/2024 7:10 AM EDT Laboratory Lab [facility] Phlebotomy [facility] [address] [place] [address] Mvmg, Gml [facility] Draw [address] [address] 12/24/2024 2:30 PM EST Nurse Only Ancillary [address] [place] [address] Cristina, Nurse Annual Wellness [address] [place] [address] [place] [address] 01/13/2025 11:40 AM EST Office Visit Family Medicine [address] [place] [phone] Dhruv Moss MD [address] [place] [address] [place] [address] Scheduled Procedures Name Priority Associated Diagnoses Date/Ti [...] D LEVEL ONCE IN A LIFETIME-USE SMARTSET# 18964 Completed 05/11/2015 RETIRED - COLONOSCOPY-EVERY 5 YRS [...] this encounter Medical Devices Implanted Type Area Commodity Buyer Device Identifier Shelf Expiration Date Model / Serial / Lot Port Pwr Mri Isp Profile - [id number] Implanted:Qty: 1 on 07/24/2020 by Akash Castillo MD at OR [facility] Right: Chest CR BARD : PERIPHERAL VASCULAR 04/12/2021 [id number] / / [id number] documented as of this encounter Advance Directives [...] Agents on File Name Relationship Healthcare Agent [facility] Communication [facility] Adult Child Health Care Agent Care Teams Acidizer Relationship Specialty Start Date End Date Dhruv Moss MD [address] [place] [address] [place] [address] PCP - General Family Medicine 08/27/21 documented as of this encounter
--- OUTSIDE RECORDS SUMMARY | 2024-10-10 00:44 | External Medical Summary ---
Author Name Unknown Address Unknown Organization K01:[facility] [address] [facility] [place] [address] Laboratory Report Ordering Provider Test Date Status ANN MUNGUIA 06/05/2024 08:35:00 Final Observation Date Value Abnormality Reference (Units ) Status SYNC LEUKOCYTES IN BLOOD BY AUTOMATED COUNT 06/05/2024 08:35:00 9.21 4.00-10.80 (K/uL) Final Neutrophils/100 leukocytes in Blood by Manual count 06/05/2024 08:35:00 17.4 Below low normal 40.0-75.0 (%) Final Lymphocytes/100 leukocytes in Blood by Manual count 06/05/2024 08:35:00 13.0 Below low normal 18.0-42.0 (%) Final Monocytes/100 leukocytes in Blood by Manual count 06/05/2024 08:35:00 15.2 Above high normal 1.0-11.0 (%) Final Metamyelocytes/100 leukocytes in Blood by Manual count 06/05/2024 08:35:00 6.5 Above high normal <=0.0 (%) Final Myelocytes/100 leukocytes in Blood by Manual count 06/05/2024 08:35:00 21.7 Above high normal <=0.0 (%) Final Promyelocytes/100 leukocytes in Blood by Manual count 06/05/2024 08:35:00 13.0 Above high normal <=0.0 (%) Final Blasts/100 leukocytes in Blood by Manual count 06/05/2024 08:35:00 13.0 Above high normal <=0.0 (%) Final Neutrophils [#/volume] in Blood by Manual count 06/05/2024 08:35:00 1.60 Below low normal 1.80-7.70 (K/uL) Final Lymphocytes [#/volume] in Blood by Manual count 06/05/2024 08:35:00 1.20 1.00-4.80 (K/uL) Final Monocytes [#/volume] in Blood by Manual count 06/05/2024 08:35:00 1.40 Above high normal 0.00-1.10 (K/uL) Final Metamyelocytes [#/volume] in Blood by Manual count 06/05/2024 08:35:00 0.60 Above high normal <=0.00 (K/uL) Final Myelocytes [#/volume] in Blood by Manual count 06/05/2024 08:35:00 2.00 Above high normal <=0.00 (K/uL) Final Promyelocytes [#/volume] in Blood by Manual count 06/05/2024 08:35:00 1.20 Above high normal <=0.00 (K/uL) Final Blasts [#/volume] in Blood by Manual count 06/05/2024 08:35:00 1.20 Above high normal <=0.00 (K/uL) Final Variant lymphocytes [Presence] in Blood by Light microscopy 06/05/2024 08:35:00 Present Abnormal None Seen Final Neutrophils.vacuolated [Presence] in Blood by Light microscopy 06/05/2024 08:35:00 Present Abnormal None Seen Final Performing Location LABORATORY [facility] - [address] [facility] [address]
--- OUTSIDE RECORDS SUMMARY | 2024-10-10 00:44 | External Medical Summary | Summary of Care ---
Author Name Unknown Organization [facility] Address [address] [place] [address] Phone [phone] Care Team Providers Care Escalation Engineer Name Role Phone Dhruv Moss MD Primary Care Provide r Reason for Visit * Reason Onset Date Comments Appointment 06/04/2024 Encounter Details Date Type Department Care Team (Late st Contact Info) Description 06/04/2024 Telephone [facility] [place] [address] [place] [address] Services, Scheduling [address] [place] [address] Appointment Allergies No known active allergiesdocumented as of this encounter (statuses as of 06/04/2024) Medications Medication Sig Dispensed Refills Start Date [...] for Nausea. 60 Tablet 3 12/09/2021 Active [employer] Delica Lancets 30GIndications:Type 2 diabetes mellitus with hemoglobin A1c goal of less than 8.0% ([facility]) Use to test blood sugar three times a day DXe11.9 300 Each 3 12/16/2021 Active [employer] Verio Flex System w/Device Kit Use as [...] 24 Hour (Imdur)Indications:C oronary artery disease involving kaibab coronary artery of kaibab heart without angina pectoris,HTN, goal below 140/90 [...] the morning. 30 mL 04/05/2024 Active Pen Ruffin 32G X 4 MM Use as directed. [...] as of this encounter (statuses as of 06/04/2024) Active Problems Patient Care Coordination No te Formatting of this note migh t be different from the original. Date of Transplant: 09/01/2021 Conditioning Regimen: Fludarabine / Busulfan 2 with post-transplant Cytoxan ABO/Rh: A Positive CMV status: CMV Positive--- GRID: [id number] / DID: [id number] Matched Unrelated 10/24--- DPB1 Match ABO/Rh: A [...] Thrombocytopenia 12/06/2022 Last Assessment & Plan: Platelets 09851 on 03/20 Questionable hematuria Urinary incontinence 09/12/2022 [...] failure. Does not have any evidence of htsjd-vfsiko-uavj disease Last Assessment & Plan: Continues to [...] -continue venlafaxine Coronary artery disease invo lving kaibab coronary artery of kaibab heart without angina pectoris 06/12/2017 Overview: S/P EDIL to LAD on 06/12/17 Last Assessment & Plan: No angina - Continue atorvastatin, isosorbide, metoprolol - no ASA due to thrombocytopenia Dyslipidemia, goal LDL below 70 11/25/2011 Last Assessment & Plan: Patient having no issues. She continues on Lipitor 40 mg daily Last lab I will was that I can find were from [phone] Assessment/plan: Dyslipidemia with patient currently taking Lipitor [...] as of this encounter (statuses as of 06/04/2024) Resolved Problems Problem Noted Date Diagnosed Date [...] been completed MICHELE (acute kidney injury) 10/27/2021 04 / Encounter for antineoplastic chemotherapy 09/15/2021 09/21/2021 Esophagitis [...] as of this encounter (statuses as of 06/04/2024) Immunizations Name Administration Dates Next Due COVID-19 mRNA, LNP-s, No Pre serve, 2-Dose Series ([employer]) 02/05/2021,01/08/2021 COVID-19, LNP-s, No Preserve , Ye-sucrose, [...] No 12/22/2023 Does the household have a nor-lea general [...] Telephone Encounter - Sara García OSA - 06/04/2024 2:11 PM EDT Request to move appt today due to RN off, spoke to daughter and set appt for 06/21, pt agreeable. documented in this encounter Plan of Treatment Upcoming Encounters Date Type Department Care Team (Latest Contact Info) Description 06/05/2024 7:10 AM EDT Laboratory Lab [facility] Phlebot[facility] [address] [employer] [place], [place] [address] Mv[facility], Gml Mobile Home Draw [address] [employer] [place], [place] [address] 06/12/2024 7:10 AM EDT Laboratory Lab [facility] Phlebotomy [facility] [address] [employer] [place], [place] [address] Mvmg, Gml Mobile Home Draw [address] [employer] [place], [place] [address] 06/19/2024 7:10 AM EDT Laboratory Lab [facility] Phlebotomy [facility] [address] [employer] [place], [place] [address] Mvmg, Gml Mobile Home Draw [address] [employer] [place], [place] [address] 06/21/2024 4:00 PM EDT Home Visit [facility] [address] [place] [address] Marisa Pacheco RN [address] [place] [address] 06/26/2024 7:10 AM EDT Laboratory Lab Mobile Phlebotomy [facility] [address] [employer] [place] [address] Mvmg, Gml Mobile Home Draw [address] [employer] [place] [address] 07/02/2024 1:00 PM EDT Office Visit Family Medicine [address] [place] [phone] Abby Bennett [address] [place] [address] 07/02/2024 1:30 PM EDT Office Visit Pharmacy, [address] [place] [address] [place] [address] 07/03/2024 7:10 AM EDT Laboratory Lab [facility] Phlebot[facility] [address] [employer] [place] [address] Mvmg, Gml Mobile [facility] Draw [address] [employer] [place] [address] 07/03/2024 1:30 PM EDT Imaging Radiology [address] [place] [address] 07/05/2024 9:15 AM EDT [facility] [address] [place] [address] Jitendra Aguero MD [address] [facility] [place] [address] 07/10/2024 7:10 AM EDT Laboratory Lab Mobile Phlebotomy [facility] [address] [employer] [place] [address] Mvmg, Gml Mobile Home Draw [address] [employer] [place] [address] 07/12/2024 2:18 PM EDT Hospital Encounter OR GL, Operating Room, [facility] - 4th Floor [address] [place] [address] Noemy Carrasco, DO [address] [place] [address] 07/12/2024 2:18 PM EDT - 07/12/2024 2:56 PM EDT Surgery OR [facility], Operating Room, [facility] - 4th Floor [address] [place] [address] Noemy Carrasco, DO [address] [place] [address] COLONOSCOPY FLEXIBLE PROXIMAL DIAGNOSTIC 07/17/2024 7:10 AM EDT Laboratory Lab Mobile Phlebotomy [facility] [address] [place] [address] Mvmg, Gml Mobile Home Draw [address] [place] [address] 07/24/2024 7:10 AM EDT Laboratory Lab Mobile Phlebotomy [facility] [address] [place] [address] Mvmg, Gml Mobile Home Draw [address] [place] [address] 07/31/2024 7:10 AM EDT Laboratory Lab Mobile Phlebotomy [facility] [address] [place] [address] [address] Mvmg, Gml Mobile Home Draw [address] [place] [address] 08/07/2024 7:10 AM EDT Laboratory Lab Mobile Phlebotomy [facility] [address] [place] [address] Mvmg, Gml Mobile Home Draw [address] [place] [address] 12/24/2024 2:30 PM EST Nurse Only Ancillary [address] [place] [address] Cristina, Nurse Annual Wellness [address] [place] [address] [place] [address] 01/13/2025 11:40 AM EST Office Visit Family Medicine [address] [place] [phone] Dhruv Moss MD [address] [place] [address] [place] [address] Scheduled Procedures Name Priority Associated Diagnoses Date/Ti [...] D LEVEL ONCE IN A LIFETIME-USE SMARTSET# 47500 Completed 05/11/2015 RETIRED - COLONOSCOPY-EVERY 5 YRS [...] this encounter Medical Devices Implanted Type Area 3D Designer Device Identifier Shelf Expiration Date Model / Serial / Lot Port Pwr Mri Isp Profile - [id number] Implanted:Qty: 1 on 07/24/2020 by Akash Castillo MD at OR [facility] Right: Chest CR BARD : PERIPHERAL VASCULAR 04/12/2021 [id number] / / [id number] documented as of this encounter Advance Directives [...] Relationship Healthcare Agent [facility] Communication Juanita [place] Adult Child Health Care Agent Care Teams Escalation Engineer Relationship Specialty Start Date End Date Dhruv Moss MD [address] [place] [address] [place] [address] PCP - General Family Medicine 08/27/21 documented as of this encounter
--- OUTSIDE RECORDS SUMMARY | 2024-10-10 00:44 | External Medical Summary | Summary of Care ---
Author Name Unknown Organization [facility] Address [address] [place] [address] Phone [phone] Care Team Providers Care Sales And Service Change Leader Name Role Phone Dhruv Moss MD Primary Care Provide r Reason for Visit * Reason Onset Date Comments Advice 06/06/2024 malia Encounter Details Date Type Department Care Team (Late st Contact Info) Description 06/06/2024 Telephone Hematology/Oncology [facility] [place] [address] [facility] [address] [facility], Scheduling [address] [place] [address] Advice (malia) Allergies No known active allergiesdocumented as of this encounter (statuses as of 06/06/2024) Medications Medication Sig Dispensed Refills Start Date [...] for Nausea. 60 Tablet 3 12/09/2021 Active Qikwell TechnologiesTouch Delica Lancets 30GIndications:Type 2 diabetes mellitus with hemoglobin A1c goal of less than 8.0% ([facility]) Use to test blood sugar three times a day DXe11.9 300 Each 3 12/16/2021 Active Posterous Verio Flex System w/Device Kit Use as [...] Release (PriLOSEC)Indication s:MDS (myelodysplastic syndrome), high grade ([facility]) Take 1 capsule by mouth twice daily [...] 24 Hour (Imdur)Indications:C oronary artery disease involving [place] coronary artery of [place] heart without angina pectoris,HTN, goal below [...] the morning. 30 mL 04/05/2024 Active Pen [place] 32G X 4 MM Use as directed. [...] as of this encounter (statuses as of 06/06/2024) Active Problems Patient Care Coordination No te Formatting of this note migh t be different from the original. Date of Transplant: 09/01/2021 Conditioning Regimen: Fludarabine / Busulfan 2 with post-transplant Cytoxan ABO/Rh: A Positive CMV status: CMV Positive--- GRID: [id number] / DID: [id number] Matched Unrelated 10/24--- DPB1 Match ABO/Rh: A [...] Thrombocytopenia 12/06/2022 Last Assessment & Plan: Platelets 53463 on 03/20 Questionable hematuria Urinary incontinence 09/12/2022 [...] failure. Does not have any evidence of krxyh-xhpweh-nzjp disease Last Assessment & Plan: Continues to [...] -continue venlafaxine Coronary artery disease invo lving [place] coronary artery of [place] heart without angina pectoris 06/12/2017 Overview: S/P EDIL to LAD on 06/12/17 Last Assessment & Plan: No angina - Continue atorvastatin, isosorbide, metoprolol - no ASA due to thrombocytopenia Dyslipidemia, goal LDL below 70 11/25/2011 Last Assessment & Plan: Patient having no issues. She continues on Lipitor 40 mg daily Last lab I will was that I can find were from [phone] Assessment/plan: Dyslipidemia with patient currently taking Lipitor [...] as of this encounter (statuses as of 06/06/2024) Resolved Problems Problem Noted Date Diagnosed Date [...] as of this encounter (statuses as of 06/06/2024) Immunizations Name Administration Dates Next Due COVID-19 mRNA, LNP-s, No Pre serve, 2-Dose Series ([employer]) 02/05/2021,01/08/2021 COVID-19, LNP-s, No Preserve , Ye-sucrose, Ages 12+ ([employer]) 12/06/2021 Pneumococcal Conjugate Vacc, 13 Valent (Prevnar) [...] No 12/22/2023 Does the household have a [facility] source of income? (Household - for [...] Telephone Encounter - Winsome Chang RN - 06/06/2024 11:[address] Aguero: "Blood workup done on 06/05/2024: - WBC 9200, H&H of 07/06.8, platelet count 6000. Transfuse one unit of platelet at [facility]." Patient to receive 1 unit plt. Called [facility] blood bank ([place]). They do have a unit of plt available. Called [facility] ([place])- she will call central scheduling. Patient scheduled for today at 1pm. Patients daughter verbalized understanding of appt time. Faxed order to [facility]/ blood bank. * Telephone Encounter - Traci Stiles OSA - 06/06/2024 10:47 AM EDT Juanita-daughter states had missed call from [facility] last night, States patients platelets are low. Please call back to [phone].thanks documented in this encounter Plan of Treatment Upcoming Encounters Date Type Department Care Team (Latest Contact Info) Description 06/12/2024 7:10 AM EDT Laboratory Lab Mobile Phlebotomy [facility] [address] [place] [address] Mv, [facility] Mobile Home Draw [address] [place] [address] 06/19/2024 7:10 AM EDT Laboratory Lab Mobile Phlebotomy [facility] [address] [place] [address] Mvmg, Gml Mobile Home Draw [address] [place] [address] 06/21/2024 4:00 PM EDT Home Visit isinger at [place] [address] [place] [address] Marisa Pacheco, TANYA [address] [place] [address] 06/26/2024 7:10 AM EDT Laboratory Lab Mobile Phlebotomy [facility] [address] [place] [address] Mvmg, Gml Mobile Home Draw [address] [place] [address] 07/02/2024 1:00 PM EDT Office Visit Family Medicine [address] [place] [phone] [address] [place] [address] 07/02/2024 1:30 PM EDT Office Visit Pharmacy, [address] [place] [address] [place] [address] 07/03/2024 7:10 AM EDT Laboratory Lab Mobile Phlebotomy [facility] [address] [place] [address] M[facility], Gml Mobile Home Draw [address] [place] [address] 07/03/2024 1:30 PM EDT Imaging Radiology [address] [place] [address] 07/05/2024 9:15 AM EDT Office Visit Hematology/Oncology [place], [place] [address] [facility] [place], [place] [address] Jitendra Aguero MD [address] [facility] [address] [place] [address] 07/10/2024 7:10 AM EDT Laboratory Lab Mobile Phlebotomy [facility] [address] [place] [address] [facility], Gml Mobile Home Draw [address] [facility] [place] [address] 07/12/2024 2:18 PM EDT Hospital Encounter OR [facility], Operating Room, [facility] - 4th Floor [address] [place] [address] Noemy Carrasco, DO [address] [place] [address] 07/12/2024 2:18 PM EDT - 07/12/2024 2:56 PM EDT Surgery OR [facility], Operating Room, [facility] - 4th Floor [address] [facility] [place] [address] Noemy Carrasco, DO [address] [place] [address] COLONOSCOPY FLEXIBLE PROXIMAL DIAGNOSTIC 07/17/2024 7:10 AM EDT Laboratory Lab Mobile Phlebotomy [facility] [address] [place] [address] Mvmg, Gml Mobile Home Draw [address] [place], [place] [address] 07/24/2024 7:10 AM EDT Laboratory Lab Mobile Phlebotomy [facility] [address] [place] [address] [address] Mvmg, Gml Mobile Home Draw [address] [place], [place] [address] 07/31/2024 7:10 AM EDT Laboratory Lab Mobile Phlebotomy [facility] [address] [place], [place] [address] Mvmg, Gml Mobile Home Draw [address] [facility] [place] [address] 08/07/2024 7:10 AM EDT Laboratory Lab Mobile Phlebotomy [facility] [address] [facility] [place] [address] Mvmg, Gml Mobile Home Draw [address] [facility] [place] [address] 12/24/2024 2:30 PM EST Nurse Only Ancillary [address] [place] [address] [place], Nurse Annual [address] [place] [address] 01/13/2025 11:40 AM EST Office Visit Family Medicine [address] [place] [phone] Dhruv Moss MD [address] [place] [address] [place] [address] Scheduled Procedures Name Priority Associated Diagnoses Date/Ti [...] D LEVEL ONCE IN A LIFETIME-USE SMARTSET# 80812 Completed 05/11/2015 RETIRED - COLONOSCOPY-EVERY 5 YRS [...] this encounter Medical Devices Implanted Type Area Bid Writer Device Identifier Shelf Expiration Date Model / Serial / Lot Port Pwr Mri Isp Profile - [id number] Implanted:Qty: 1 on 07/24/2020 by Akash Castillo MD at OR [facility] Right: Chest CR BARD : PERIPHERAL VASCULAR 04/12/2021 [id number] / / [id number] documented as of this encounter Advance Directives [...] Agents on File Name Relationship Healthcare Agent [facility] Communication Juanita Silva Adult Child Health Care Agent Care Teams Sales And Service Change Leader Relationship Specialty Start Date End Date Dhruv Moss MD [address] [place] [address] [place] [address] PCP - General Family Medicine 08/27/21 documented as of this encounter
--- OUTSIDE RECORDS SUMMARY | 2024-10-10 00:44 | External Medical Summary ---
Author Name Unknown Address Unknown Organization K01:[facility] [place] [address] [place] [address] Laboratory Report Ordering Provider Test Date Status ANN MUNGUIA 06/05/2024 08:35:00 Final Observation Date Value Abnormality Reference (Units ) Status WBC, Total 06/05/2024 08:35:00 9.21 4.00-10.80 (K/uL) Final RBC 06/05/2024 08:35:00 2.33 3.85-5.15 (M/uL) Final Hemoglobin 06/05/2024 08:35:00 8.0 Below low normal 12.0-15.3 (g/dL) Final HCT 06/05/2024 08:35:00 24.8 Below low normal 36.0-45.2 (%) Final MCV 06/05/2024 08:35:00 106.4 81.5-97.5 (fL) Final MCH 06/05/2024 08:35:00 34.3 27.0-34.0 (pg) Final MCHC 06/05/2024 08:35:00 32.3 32.0-36.0 (g/dL) Final RDW 06/05/2024 08:35:00 24.9 11.5-15.5 (%) Final Platelets 06/05/2024 08:35:00 6 Below lower panic limits 140-400 (K/uL) Final MPV 06/05/2024 08:35:00 9.6 6.6-11.1 (fL) Final Nucleated erythrocytes/100 leukocytes [Ratio] in Blood by Automated count 06/05/2024 08:35:00 0 <=0 (/100 WBCs) Final Performing Location [facility] - [address] [place] [address]
--- OUTSIDE RECORDS SUMMARY | 2024-10-10 00:45 | External Medical Summary | Summary of Care ---
Author Name Unknown Organization [facility] Address [address] [place] [address] Phone [phone] Care Team Providers Care Obstetrics Gyn Name Role Phone Dhruv Moss MD Primary Care Provide r Reason for Visit * Reason Onset Date Comments Test Results Lab 05/24/2024 Encounter Details Date Type Department Care Team (Late st Contact Info) Description 05/24/2024 Telephone Hematology/Oncology [facility] [place] [address] [place] [address] Jitendra Aguero MD [facility] [place] [address] Test Results Lab Allergies No known active allergiesdocumented as of this encounter (statuses as of 05/27/2024) Medications Medication Sig Dispensed Refills Start Date [...] for Nausea. 60 Tablet 3 12/09/2021 Active Ganeselo.comTouch Delica Lancets 30GIndications:Type 2 diabetes mellitus with hemoglobin A1c goal of less than 8.0% ([facility]) Use to test blood sugar three times a day DXe11.9 300 Each 3 12/16/2021 Active [employer] Verio Flex System w/Device Kit Use as [...] 24 Hour (Imdur)Indications:C oronary artery disease involving [place] coronary artery of [place] heart without angina pectoris,HTN, goal below [...] morning. 30 mL 3 04/05/2024 Active Pen [place] 32G X 4 MM Use as [...] as of this encounter (statuses as of 05/27/2024) Active Problems Patient Care Coordination No te Formatting of this note migh t be different from the original. Date of Transplant: 09/01/2021 Conditioning Regimen: Fludarabine / Busulfan 2 with post-transplant Cytoxan ABO/Rh: A Positive CMV status: CMV Positive--- GRID: [id number] [id number] / DID: [id number] Matched Unrelated 10/24--- DPB1 Match ABO/Rh: A [...] Thrombocytopenia 12/06/2022 Last Assessment & Plan: Platelets 78139 on 03/20 Questionable hematuria Urinary incontinence 09/12/2022 [...] failure. Does not have any evidence of mngqt-sztupy-buny disease Last Assessment & Plan: Continues to [...] -continue venlafaxine Coronary artery disease invo lving [place] coronary artery of [place] heart without angina pectoris 06/12/2017 Overview: S/P EDIL to LAD on 06/12/17 Last Assessment & Plan: No angina - Continue atorvastatin, isosorbide, metoprolol - no ASA due to thrombocytopenia Dyslipidemia, goal LDL below 70 11/25/2011 Last Assessment & Plan: Patient having no issues. She continues on Lipitor 40 mg daily Last lab I will was that I can find were from [id number] Assessment/plan: Dyslipidemia with patient currently taking Lipitor [...] as of this encounter (statuses as of 05/27/2024) Resolved Problems Problem Noted Date Diagnosed Date [...] as of this encounter (statuses as of 05/27/2024) Immunizations Name Administration Dates Next Due COVID-19 mRNA, LNP-s, No Pre serve, 2-Dose Series (yoonew) 02/05/2021,01/08/2021 COVID-19, LNP-s, No Preserve , Ye-sucrose, [...] Telephone Encounter - Bogdan Gutiérrez RN - 05/24/2024 4:06 PM EDT Plt count is 8. Called patient to inform. No answer, left detailed message on machine that we would advise her to go to the ER to have a platelet transfusion. Gave her the weekend on-call # and advised to monitor for any symptoms of bleeding over the weekend. N:S- please follow up with the patient on Monday. documented in this encounter Plan of Treatment Upcoming Encounters Date Type Department Care Team (Latest Contact Info) Description 05/29/2024 7:10 AM EDT Laboratory Lab Mobile Phlebotomy [facility] [address] [place] [address] [facility], Gml Mobile Home Draw [address] [place] [address] 06/04/2024 8:30 AM EDT Home Visit [facility] [address] [place] [address] Marisa Pacheco, TANYA [address] [place] [address] 06/05/2024 7:10 AM EDT Laboratory Lab Mobile Phlebotomy [facility] [address] [place] [address] Mvmg, Gml Mobile Home Draw [address] [place] [address] 06/12/2024 7:10 AM EDT Laboratory Lab Mobile Phlebotomy [facility] [address] [place] [address] Mvmg, Gml Mobile Home Draw [address] [place] [address] 06/19/2024 7:10 AM EDT Laboratory Lab Mobile Phlebotomy [facility] [address] [place] [address] Mvmg, Gml Mobile Home Draw [address] [place] [address] 06/26/2024 7:10 AM EDT Laboratory Lab Mobile Phlebotomy [facility] [address] [place] [address] Mvmg, Gml Mobile Home Draw [address] [place], [place] [address] 07/02/2024 1:00 PM EDT Office Visit Family Medicine [address] [place] [address] [place] [address] 07/02/2024 1:30 PM EDT Office Visit Pharmacy, [address] [place] [address] [place] [address] 07/03/2024 7:10 AM EDT Laboratory Lab Mobile Phlebotomy [facility] [address] [place] [address] Mvmg, Gml Mobile Home Draw [address] [place], [place] [address] 07/03/2024 1:30 PM EDT Imaging Radiology [address] [place] [address] 07/05/2024 9:15 AM EDT Office Visit Hematology/Oncology [employer] [address] [facility] [place], [place] [address] Jitendra Aguero MD 200 [facility] [place] [address] 07/10/2024 7:10 AM EDT Laboratory Lab Mobile Phlebotomy [facility] [address] [place] [address] Mvmg, Gml Mobile Home Draw [address] [place] [address] 07/12/2024 2:18 PM EDT Hospital Encounter OR [facility], Operating Room, [facility] - 4th Floor [address] [place] [address] Noemy Carrasco, DO [address] [place] [address] 07/12/2024 2:18 PM EDT - 07/12/2024 2:56 PM EDT Surgery OR [facility], Operating Room, [facility] - 4th Floor [address] [place] [address] Noemy Carrasco, DO [address] [place] [address] COLONOSCOPY FLEXIBLE PROXIMAL DIAGNOSTIC 07/17/2024 7:10 AM EDT Laboratory Lab Mobile Phlebotomy [facility] [address] [place] [address] Mvmg, Gml Mobile Home Draw [address] [place], [place] [address] 07/24/2024 7:10 AM EDT Laboratory Lab Mobile Phlebotomy [facility] [address] [place] [address] Mvmg, Gml Mobile Home Draw [address] [place] [address] [address] [address] 07/31/2024 7:10 AM EDT Laboratory Lab Mobile Phlebotomy [facility] [address] [place] [address] [address] Mvmg, Gml Mobile Home Draw [address] [place] [address] 08/07/2024 7:10 AM EDT Laboratory Lab Mobile Phlebotomy [facility] [address] [facility] [place] [address] M[facility]mg, Gml Mobile Home Draw [address] [facility] [place] [address] 12/24/2024 2:30 PM EST Nurse Only Ancillary [address] [place] [address] [place], Nurse Annual Wellness [address] [place] [address] [place] [address] 01/13/2025 11:40 AM EST Office Visit Family Medicine [address] [place] [phone] Dhruv Moss MD [address] [place] [address] [place] [address] Scheduled Procedures Name Priority Associated Diagnoses Date/Ti [...] D LEVEL ONCE IN A LIFETIME-USE SMARTSET# 46080 Completed 05/11/2015 RETIRED - COLONOSCOPY-EVERY 5 YRS [...] this encounter Medical Devices Implanted Type Area Public Address System Operator Device Identifier Shelf Expiration Date Model / Serial / Lot Port Pwr Mri Isp Profile - [id number] Implanted:Qty: 1 on 07/24/2020 by Akash Csatillo MD at OR [facility] Right: Chest CR BARD : PERIPHERAL VASCULAR 04/12/2021 [id number] / / [id number] documented as of this encounter Advance Directives [...] File Name Relationship [facility] Communication Juanita Ricardo Adult Child Health Care Agent Care Teams Obstetrics Gyn Relationship Specialty Start Date End Date Dhruv Moss MD [address] [place] [id number] PCP - General Family Medicine 08/27/21 documented as of this encounter
--- OUTSIDE RECORDS SUMMARY | 2024-10-10 00:45 | External Medical Summary | Summary of Care ---
Author Name Unknown Organization [facility] Address [address] [place] [address] Phone [phone] Care Team Providers Care Revenue Cycle Administrator Name Role Phone Dhruv Moss MD Primary Care Provide r Reason for Visit * Reason Onset Date Comments Test Results Lab 05/24/2024 Encounter Details Date Type Department Care Team (Late st Contact Info) Description 05/24/2024 Telephone Hematology/Oncology [facility] Alejandra Mcroberts [address] [place] [address] Jitendra Aguero MD [address] [place] [address] Test Results Lab Allergies No known active allergiesdocumented as of this encounter (statuses as of 05/24/2024) Medications Medication Sig Dispensed Refills Start Date [...] for Nausea. 60 Tablet 3 12/09/2021 Active DevunityTouch Delica Lancets 30GIndications:Type 2 diabetes mellitus with hemoglobin A1c goal of less than 8.0% ([facility]) Use to test blood sugar three times a day DXe11.9 300 Each 3 12/16/2021 Active DevunityToHotelzilla Verio Flex System w/Device Kit Use as [...] than 8.0% ([facility]) Inject 8 units with breakfast, 4 units with lunch, and 6 units with dinner + sliding scale of 1 units per every 20 over 140 MAX DAILY DOSE 50 units 50 mL 5 07/25/2023 Active Isosorbide Mononitrate ER 30 MG Oral Tablet Extended Release 24 Hour (Imdur)Indications:C oronary artery disease involving [place] coronary artery of [place] heart without angina pectoris,HTN, goal below 140/90 [...] morning. 30 mL 3 04/05/2024 Active Pen [place] 32G X 4 MM Use as [...] as of this encounter (statuses as of 05/24/2024) Active Problems Patient Care Coordination No te Formatting of this note migh t be different from the original. Date of Transplant: 09/01/2021 Conditioning Regimen: Fludarabine / Busulfan 2 with post-transplant Cytoxan ABO/Rh: A Positive CMV status: CMV Positive--- GRID: [id number] / DID: [id number] Matched Unrelated 10/24--- DPB1 Match ABO/Rh: A [...] Thrombocytopenia 12/06/2022 Last Assessment & Plan: Platelets 70106 on 03/20 Questionable hematuria Urinary incontinence 09/12/2022 [...] failure. Does not have any evidence of gilmw-tsjoii-sjrm disease Last Assessment & Plan: Continues to [...] -continue venlafaxine Coronary artery disease invo lving [place] coronary artery of [place] heart without angina pectoris 06/12/2017 Overview: S/P EDIL to LAD on 06/12/17 Last Assessment & Plan: No angina - Continue atorvastatin, isosorbide, metoprolol - no ASA due to thrombocytopenia Dyslipidemia, goal LDL below 70 11/25/2011 Last Assessment & Plan: Patient having no issues. She continues on Lipitor 40 mg daily Last lab I will was that I can find were from [phone] Assessment/plan: Dyslipidemia with patient currently taking Lipitor [...] as of this encounter (statuses as of 05/24/2024) Resolved Problems Problem Noted Date Diagnosed Date [...] as of this encounter (statuses as of 05/24/2024) Immunizations Name Administration Dates Next Due COVID-19 mRNA, LNP-s, No Pre serve, 2-Dose Series (MEEP) 02/05/2021,01/08/2021 COVID-19, LNP-s, No Preserve , Ye-sucrose, [...] Laboratory Lab [facility] [address] [place] [address] M[facility], Gml [facility] Draw [address] [place] [address] 06/04/2024 8:30 AM EDT Home Visit [facility] [address] [place] [address] Marisa Pacheco, TANYA [address] [place] [address] 06/05/2024 7:10 AM EDT Laboratory [facility] [address] [place] [address] Mvmg, Gml [facility] Draw [address] [place] [address] 06/12/2024 7:10 AM EDT Laboratory Lab [facility] [address] [place] [address] Mvmg, Gml [facility] Draw [address] [place] [place] [address] 06/19/2024 7:10 AM EDT Laboratory Lab [facility]bot[facility] [address] [place] [address] Mvmg, Gml [facility] Draw [address] [place] [place] [address] 06/26/2024 7:10 AM EDT Laboratory [facility] [address] [place] [address] Mvmg, Gml [facility] Draw [address] [place], [place] [address] 07/02/2024 1:00 PM EDT Office Visit Family Medicine [address] [place] [phone] [place] [address] 07/02/2024 1:30 PM EDT Office Visit Pharmacy, [address] [place] [address] [place] [address] 07/03/2024 7:10 AM EDT Laboratory [facility] [address] [place] [address] Mvmg, Gml [facility] Draw [address] [place], [place] [address] 07/03/2024 1:30 PM EDT Imaging Radiology [address] [place] [address] 07/05/2024 9:15 AM EDT Office Visit Hematology/Oncology [employer] 200 [facility] [place], [place] [phone] Jitendra Aguero MD 200 [facility] [place] [address] 07/10/2024 7:10 AM EDT Laboratory Lab [facility] Phlebot[facility] [address] [place] [address] Mvmg, Gml [facility] Draw [address] [place] [address] [address] 07/12/2024 2:18 PM EDT Hospital Encounter OR [facility], Operating Room, [facility] - 4th Floor [address] [place] [address] Noemy Carrasco, DO [address] [place] [address] 07/12/2024 2:18 PM EDT - 07/12/2024 2:56 PM EDT Surgery OR [facility], Operating Room, [facility] - 4th Floor [address] [place] [address] Noemy Carrasco, DO [address] [place] [address] COLONOSCOPY FLEXIBLE PROXIMAL DIAGNOSTIC 07/17/2024 7:10 AM EDT Laboratory [facility] [address] [address] Mvmg, Gml [facility] Draw [address] [place], [place] [address] 07/24/2024 7:10 AM EDT Laboratory [facility] [address] [address] Mvmg, Gml [facility] Draw [address] [place] [address] 07/31/2024 7:10 AM EDT Laboratory Lab [facility]bot[facility] [address] [address] Mvmg, Gml [facility] Home Draw [address] [place] [address] 08/07/2024 7:10 AM EDT Laboratory Lab [facility] Phlebotomy [facility] [address] [facility] [place] [address] Mvmg, Gml Mobile Home Draw [address] [facility] [place] [address] 12/24/2024 2:30 PM EST Nurse Only Ancillary [address] [place] [address] [place], Nurse [facility] [address] [place] [address] [place] [address] 01/13/2025 11:40 AM EST Office Visit Family Medicine [address] [place] [phone] Dhruv Moss MD [address] [place] [address] [place] [address] Scheduled Procedures Name Priority Associated Diagnoses Date/Ti [...] D LEVEL ONCE IN A LIFETIME-USE SMARTSET# 80752 Completed 05/11/2015 RETIRED - COLONOSCOPY-EVERY 5 YRS [...] this encounter Medical Devices Implanted Type Area Research Soil Scientist Device Identifier Shelf Expiration Date Model / Serial / Lot Port Pwr Mri Isp Profile - [id number] Implanted:Qty: 1 on 07/24/2020 by Akash Castillo MD at OR [facility] Right: Chest CR BARD : PERIPHERAL VASCULAR 04/12/2021 [id number] / / [id number] documented as of this encounter Advance Directives [...] Agents on File Name Relationship Healthcare Agent [facility] p Communication Juanita Silva Adult Child Health Care Agent Care Teams Revenue Cycle Administrator Relationship Specialty Start Date End Date Dhruv Moss MD [address] [place] [address] PCP - General Family Medicine 08/27/21 documented as of this encounter
--- OUTSIDE RECORDS SUMMARY | 2024-10-10 00:45 | External Medical Summary | Summary of Care ---
Author Name Unknown Organization [facility] Address [address] [place] [address] Phone [phone] Care Team Providers Care Video Games Mechanic Name Role Phone Dhruv Moss MD Primary Care Provide r Encounter Details Date Type Department Care Team (Late st Contact Info) Description 05/27/2024 Result Scan Unspecified Department Jitendra Aguero MD 200 [place] [address] <No scans attached> Allergies No known active allergiesdocumented as of this encounter (statuses as of 05/28/2024) Medications Medication Sig Dispensed Refills Start Date [...] for Nausea. 60 Tablet 3 12/09/2021 Active ChompToGPB Scientific Delica Lancets 30GIndications:Type 2 diabetes mellitus with hemoglobin A1c goal of less than 8.0% ([facility]) Use to test blood sugar three times a day DXe11.9 300 Each 3 12/16/2021 Active HotLink Flex System w/Device Kit Use as directed [...] Release (PriLOSEC)Indication s:MDS (myelodysplastic syndrome), high grade ([facility]) Take 1 capsule by mouth twice daily 180 Capsule 2 06/10/2023 Active NovoLIN R 100 UNIT/ML Injection Solution (insulin REGULAR human)Indications:Ty pe 2 diabetes mellitus with hemoglobin A1c goal of less than 8.0% ([facility]) Inject 8 units with breakfast, 4 units with lunch, and 6 units with dinner + sliding scale of 1 units per every 20 over 140 MAX DAILY DOSE 50 units 50 mL 5 07/25/2023 Active Isosorbide Mononitrate ER 30 MG Oral Tablet Extended Release 24 Hour (Imdur)Indications:C oronary artery disease involving [place] coronary artery of [place] heart without angina pectoris,HTN, goal below 140/90 [...] morning. 30 mL 3 04/05/2024 Active Pen [place] 32G X 4 MM Use as directed. [...] as of this encounter (statuses as of 05/28/2024) Active Problems Patient Care Coordination No te Formatting of this note migh t be different from the original. Date of Transplant: 09/01/2021 Conditioning Regimen: Fludarabine / Busulfan 2 with post-transplant Cytoxan ABO/Rh: A Positive CMV status: CMV Positive--- GRID: [id number] / [id number]: [id number] Matched Unrelated 10/24--- DPB1 Match ABO/Rh: A [...] Thrombocytopenia 12/06/2022 Last Assessment & Plan: Platelets 01114 on 03/20 Questionable hematuria Urinary incontinence 09/12/2022 [...] failure. Does not have any evidence of wdyzv-enoqch-cjgo disease Last Assessment & Plan: Continues to [...] -continue venlafaxine Coronary artery disease invo lving [place] coronary artery of [place] heart without angina pectoris 06/12/2017 Overview: S/P EDIL to LAD on 06/12/17 Last Assessment & Plan: No angina - Continue atorvastatin, isosorbide, metoprolol - no ASA due to thrombocytopenia Dyslipidemia, goal LDL below 70 11/25/2011 Last Assessment & Plan: Patient having no issues. She continues on Lipitor 40 mg daily Last lab I will was that I can find were from [phone] Assessment/plan: Dyslipidemia with patient currently taking Lipitor [...] as of this encounter (statuses as of 05/28/2024) Resolved Problems Problem Noted Date Diagnosed Date [...] as of this encounter (statuses as of 05/28/2024) Immunizations Name Administration Dates Next Due COVID-19 mRNA, LNP-s, No Pre serve, 2-Dose Series ([employer]) 02/05/2021,01/08/2021 COVID-19, LNP-s, No Preserve , Ye-sucrose, [...] Mobile Phlebotomy [facility] [address] [place] [address] Mvmg, Gml [facility] Home Draw [address] [place] [address] 06/04/2024 8:30 AM EDT Home Visit [facility] [place] [address] Marisa Pacheco, TANYA [address] [place] [address] 06/05/2024 7:10 AM EDT Laboratory [facility] [address] [place] [address] Mvmg, Gml [facility] Draw [address] [place] [address] [address] 06/12/2024 7:10 AM EDT Laboratory Lab [facility] [address] [place] [address] [address] Mvmg, Gml Mobile Home Draw [address] [address] 06/19/2024 7:10 AM EDT Laboratory Lab [facility]lebot[facility] [address] [address] Mvmg, Gml Mobile Home Draw [address] [place] [address] 06/26/2024 7:10 AM EDT Laboratory Lab [facility] Phlebot[facility] [address] [employer] [place] [address] Mvmg, Gml Mobile Home Draw [address] [employer] [place] [address] 07/02/2024 1:00 PM EDT Office Visit Family Medicine [address] [place] [phone] [place] [address] 07/02/2024 1:30 PM EDT Office Visit Pharmacy, [address] [place] [address] [place] [address] 07/03/2024 7:10 AM EDT Laboratory [facility]bot[facility] [address] [employer] [place] [address] Mvmg, Gml Mobile Home Draw [address] [employer] [place] [address] 07/03/2024 1:30 PM EDT Imaging Radiology [address] [place] [address] 07/05/2024 9:15 AM EDT Office Visit Hematology/Oncology [facility] State Daryl Roberts [address] [facility] [place] [phone] Jitendra Aguero MD [address] [facility] [place] [address] 07/10/2024 7:10 AM EDT Laboratory Lab [facility] Phlebotomy [facility] [address] [employer] [place] [address] Mvmg, Gml Mobile Home Draw [address] [employer] [place] [address] 07/12/2024 2:18 PM EDT Hospital Encounter OR [facility], Operating Room, [facility] - 4th Floor [address] [place] [address] [place] [address] Noemy Carrasco, DO [address] [place] [address] 07/12/2024 2:18 PM EDT - 07/12/2024 2:56 PM EDT Surgery OR [facility], Operating Room, [facility] - 4th Floor [address] [place] [address] Noemy Carrasco, DO [address] [place] [address] COLONOSCOPY FLEXIBLE PROXIMAL DIAGNOSTIC 07/17/2024 7:10 AM EDT Laboratory Lab [facility] Phlebot[facility] [address] [employer] [place] [address] Mvmg, Gml Mobile Home Draw [address] [place] [address] 07/24/2024 7:10 AM EDT Laboratory Lab [facility] Phlebotomy [facility] [address] [place] [address] Mvmg, Gml Mobile Home Draw [address] [place] [address] 07/31/2024 7:10 AM EDT Laboratory Lab [facility]lebot[facility] [address] [place] [address] Mvmg, Gml Mobile Home Draw [address] [place] [address] 08/07/2024 7:10 AM EDT Laboratory Lab [facility]lebot[facility] [address] [place] [address] Mvmg, Gml Mobile Home Draw [address] [place] [address] 12/24/2024 2:30 PM EST Nurse Only Ancillary [address] [place] [address] [place], Nurse [address] [place] [address] 01/13/2025 11:40 AM EST Office Visit Family Medicine [address] [place] [address] Dhruv Moss MD [address] [place] [address] [place] [address] Scheduled Procedures Name Priority Associated Diagnoses Date/Ti [...] D LEVEL ONCE IN A LIFETIME-USE SMARTSET# 45409 Completed 05/11/2015 RETIRED - COLONOSCOPY-EVERY 5 YRS [...] this encounter Medical Devices Implanted Type Area Plant Maintenance Engineer Device Identifier Shelf Expiration Date Model / Serial / Lot Port Pwr Mri Isp Profile - [id number] Implanted:Qty: 1 on 07/24/2020 by Akash Castillo MD at OR [facility] Right: Chest CR BARD : PERIPHERAL VASCULAR 04/12/2021 [id number] / / [id number] documented as of this encounter Procedures Procedure Name Priority Date/Time Associated Diagnosis Comments OUTSIDE LAB RESULTS 05/27/2024 documented in this encounter Results * OUTSIDE LAB RESULTS (05/27/2024) 05/27/2024 Jitendra Aguero MD LABORATORY documented in this [...] File Name [facility] Communication Juanita Silva Adult Child Health Care Agent Care Teams Video Games Mechanic Relationship Specialty Start Date End Date Dhruv Moss MD [address] [place] [address] [place] [address] PCP - General Family Medicine 08/27/21 documented as of this encounter
--- OUTSIDE RECORDS SUMMARY | 2024-10-10 00:45 | External Medical Summary ---
Author Name Unknown Address Unknown Organization [id number]:LABORATORY [facility] - [facility] [address] [facility] [address] [place] [address] Laboratory Report Ordering Provider Test Date Status ANN MUNGUIA 05/22/2024 08:27:00 Final Observation Date Value Abnormality Reference (Units ) Status WBC, Total 05/22/2024 08:27:00 12.86 Above high normal 4.00-10.80 (K/uL) Final RBC 05/22/2024 08:27:00 2.87 3.85-5.15 (M/uL) Final Hemoglobin 05/22/2024 08:27:00 9.3 Below low normal 12.0-15.3 (g/dL) Final HCT 05/22/2024 08:27:00 28.9 Below low normal 36.0-45.2 (%) Final MCV 05/22/2024 08:27:00 100.7 81.5-97.5 (fL) Final MCH 05/22/2024 08:27:00 32.4 27.0-34.0 (pg) Final MCHC 05/22/2024 08:27:00 32.2 32.0-36.0 (g/dL) Final RDW 05/22/2024 08:27:00 24.9 11.5-15.5 (%) Final Platelets 05/22/2024 08:27:00 8 Below lower panic limits 140-400 (K/uL) Final MPV 05/22/2024 08:27:00 9.6 6.6-11.1 (fL) Final Nucleated erythrocytes/100 leukocytes [Ratio] in Blood by Automated count 05/22/2024 08:27:00 0 <=0 (/100 WBCs) Final Performing Location LABOR[facility]ORY [facility] - [address] [place] [place] [address]
--- OUTSIDE RECORDS SUMMARY | 2024-10-10 00:45 | External Medical Summary ---
Author Name Unknown Address Unknown Organization K01[facility] [address] [facility] [place] [address] Laboratory Report Ordering Provider Test Date Status ANN MUNGUIA 05/22/2024 08:27:00 Final Observation Date Value Abnormality Reference (Units ) Status SYNC LEUKOCYTES IN BLOOD BY AUTOMATED COUNT 05/22/2024 08:27:00 12.86 Above high normal 4.00-10.80 (K/uL) Final Neutrophils/100 leukocytes in Blood by Manual count 05/22/2024 08:27:00 31.0 Below low normal 40.0-75.0 (%) Final Lymphocytes/100 leukocytes in Blood by Manual count 05/22/2024 08:27:00 52.0 Above high normal 18.0-42.0 (%) Final Monocytes/100 leukocytes in Blood by Manual count 05/22/2024 08:27:00 5.0 1.0-11.0 (%) Final Eosinophils/100 leukocytes in Blood by Manual count 05/22/2024 08:27:00 4.0 0.0-6.0 (%) Final Metamyelocytes/100 leukocytes in Blood by Manual count 05/22/2024 08:27:00 2.0 Above high normal <=0.0 (%) Final Blasts/100 leukocytes in Blood by Manual count 05/22/2024 08:27:00 6.0 Above high normal <=0.0 (%) Final Neutrophils [#/volume] in Blood by Manual count 05/22/2024 08:27:00 3.99 1.80-7.70 (K/uL) Final Lymphocytes [#/volume] in Blood by Manual count 05/22/2024 08:27:00 6.69 Above high normal 1.00-4.80 (K/uL) Final Monocytes [#/volume] in Blood by Manual count 05/22/2024 08:27:00 0.64 0.00-1.10 (K/uL) Final Eosinophils [#/volume] in Blood by Manual count 05/22/2024 08:27:00 0.51 0.00-0.70 (K/uL) Final Metamyelocytes [#/volume] in Blood by Manual count 05/22/2024 08:27:00 0.26 Above high normal <=0.00 (K/uL) Final Blasts [#/volume] in Blood by Manual count 05/22/2024 08:27:00 0.77 Above high normal <=0.00 (K/uL) Final Variant lymphocytes [Presence] in Blood by Light microscopy 05/22/2024 08:27:00 Present Abnormal None Seen Final Neutrophils.vacuolated [Presence] in Blood by Light microscopy 05/22/2024 08:27:00 Present Abnormal None Seen Final Performing Location LABORATORY [facility] - [address] [facility] [address]
--- OUTSIDE RECORDS SUMMARY | 2024-10-10 00:45 | External Medical Summary ---
Author Name Unknown Address Unknown Organization K01:LABORATORY [facility] [place] - [facility] [address] [place] [address] Laboratory Report Ordering Provider Test Date Status ANN MUNGUIA 05/29/2024 08:52:00 Final Observation Date Value Abnormality Reference (Units ) Status WBC, Total 05/29/2024 08:52:00 9.57 4.00-10.80 (K/uL) Final RBC 05/29/2024 08:52:00 2.61 3.85-5.15 (M/uL) Final Hemoglobin 05/29/2024 08:52:00 8.6 Below low normal 12.0-15.3 (g/dL) Final HCT 05/29/2024 08:52:00 26.6 Below low normal 36.0-45.2 (%) Final MCV 05/29/2024 08:52:00 101.9 81.5-97.5 (fL) Final MCH 05/29/2024 08:52:00 33.0 27.0-34.0 (pg) Final MCHC 05/29/2024 08:52:00 32.3 32.0-36.0 (g/dL) Final RDW 05/29/2024 08:52:00 24.3 11.5-15.5 (%) Final Platelets 05/29/2024 08:52:00 13 Below lower panic limits 140-400 (K/uL) Final MPV 05/29/2024 08:52:00 10.2 6.6-11.1 (fL) Final Nucleated erythrocytes/100 leukocytes [Ratio] in Blood by Automated count 05/29/2024 08:52:00 0 <=0 (/100 WBCs) Final Performing Location LABORATORY [facility] [place] - [address] [place] [address]
--- OUTSIDE RECORDS SUMMARY | 2024-10-10 00:45 | External Medical Summary ---
Author Name Unknown Address Unknown Organization K01[facility] [address] [facility] [place] [address] Laboratory Report Ordering Provider Test Date Status ANN MUNGUIA 05/29/2024 08:52:00 Final Observation Date Value Abnormality Reference (Units ) Status SYNC LEUKOCYTES IN BLOOD BY AUTOMATED COUNT 05/29/2024 08:52:00 9.57 4.00-10.80 (K/uL) Final Neutrophils/100 leukocytes in Blood by Manual count 05/29/2024 08:52:00 36.0 Below low normal 40.0-75.0 (%) Final Lymphocytes/100 leukocytes in Blood by Manual count 05/29/2024 08:52:00 43.0 Above high normal 18.0-42.0 (%) Final Monocytes/100 leukocytes in Blood by Manual count 05/29/2024 08:52:00 3.0 1.0-11.0 (%) Final Eosinophils/100 leukocytes in Blood by Manual count 05/29/2024 08:52:00 5.0 0.0-6.0 (%) Final Basophils/100 leukocytes in Blood by Manual count 05/29/2024 08:52:00 1.0 0.0-2.0 (%) Final Metamyelocytes/100 leukocytes in Blood by Manual count 05/29/2024 08:52:00 4.0 Above high normal <=0.0 (%) Final Blasts/100 leukocytes in Blood by Manual count 05/29/2024 08:52:00 8.0 Above high normal <=0.0 (%) Final Neutrophils [#/volume] in Blood by Manual count 05/29/2024 08:52:00 3.45 1.80-7.70 (K/uL) Final Lymphocytes [#/volume] in Blood by Manual count 05/29/2024 08:52:00 4.12 1.00-4.80 (K/uL) Final Monocytes [#/volume] in Blood by Manual count 05/29/2024 08:52:00 0.29 0.00-1.10 (K/uL) Final Eosinophils [#/volume] in Blood by Manual count 05/29/2024 08:52:00 0.48 0.00-0.70 (K/uL) Final Basophils [#/volume] in Blood by Manual count 05/29/2024 08:52:00 0.10 0.00-0.20 (K/uL) Final Metamyelocytes [#/volume] in Blood by Manual count 05/29/2024 08:52:00 0.38 Above high normal <=0.00 (K/uL) Final Blasts [#/volume] in Blood by Manual count 05/29/2024 08:52:00 0.77 Above high normal <=0.00 (K/uL) Final Performing Location LABORATORY [facility] [place] - [address] [facility] [address]
--- OUTSIDE RECORDS SUMMARY | 2024-10-10 00:45 | External Medical Summary ---
Author Name Unknown Address Unknown Organization K01:[facility]ATORY [facility] [place] [address] [facility] [facility] [address] Laboratory Report Ordering Provider Test Date Status PRITI HANSON 05/22/2024 08:27:00 Final Observation Date Value Abnormality Reference (Units ) Status HbA1C 05/22/2024 08:27:00 6.5 Above high normal 4. 0-5.6 (%) Final The use of HbA1c to monitor glycemic status is based on normal hemoglobin and HbA composition. This test should not be used in patients with abnormal hemoglobin that affects the half life of the red blood cell or the in vivo glycation rates. Glucose, estimated average 05/22/2024 08:27:00 140 Above high normal <126 (mg/dL) Jose J molina Performing Location LABORATORY [facility] [place] - [address] [facility] [address]
--- OUTSIDE RECORDS SUMMARY | 2024-10-10 00:45 | External Medical Summary | Summary of Care ---
Author Name Unknown Organization [facility] Address [address] [place] [facility] [place] [address] Phone [phone] Care Team Providers Care Laboratory Secretary Name Role Phone Dhruv Moss MD Primary Care Provide r Reason for Visit * Reason Comments Dosage Adjustment In Person (Anticoag Cl inic) Diabetes Follow-Up Encounter Details Date Type Department Care Team (Late st Contact Info) Description 05/20/2024 2:00 PM EDT Office Visit Pharmacy, [address] [place] [address] [place] [address] Type 2 diabetes mellitus with hemoglobin A1c goal of less than 8.0% ([facility])* Allergies No known active allergiesdocumented as of this encounter (statuses as of 05/20/2024) Medications Medication Sig Dispensed Refills Start Date [...] for Nausea. 60 Tablet 3 12/09/2021 Active [employer] Delica Lancets 30GIndications:Type 2 diabetes mellitus with hemoglobin A1c goal of less than 8.0% ([facility]) Use to test blood sugar three times a day DXe11.9 300 Each 3 12/16/2021 Active PubliAtis Flex System w/Device Kit Use as directed [...] 8.0% ([facility]) Inject 8 units with breakfast, 4 units with lunch, and 6 units with dinner + sliding scale of 1 units per every 20 over 140 MAX DAILY DOSE 50 units 50 mL 5 07/25/2023 Active Isosorbide Mononitrate ER 30 MG Oral Tablet Extended Release 24 Hour (Imdur)Indications:C oronary artery disease involving miami coronary artery of miami heart without angina pectoris,HTN, goal below 140/90 [...] morning. 30 mL 3 04/05/2024 Active Pen [place] 32G X 4 MM Use as directed. [...] as of this encounter (statuses as of 05/20/2024) Active Problems Patient Care Coordination No te Formatting of this note migh t be different from the original. Date of Transplant: 09/01/2021 Conditioning Regimen: Fludarabine / Busulfan 2 with post-transplant Cytoxan ABO/Rh: A Positive CMV status: CMV Positive--- GRID: [id number] 732 / DID: [id number] Matched Unrelated 10/24--- DPB1 Match ABO/Rh: A [...] Thrombocytopenia 12/06/2022 Last Assessment & Plan: Platelets 14655 on 03/20 Questionable hematuria Urinary incontinence 09/12/2022 [...] failure. Does not have any evidence of wdkbm-wjjfkl-ebgd disease Last Assessment & Plan: Continues to [...] -continue venlafaxine Coronary artery disease invo lving miami coronary artery of miami heart without angina pectoris 06/12/2017 Overview: S/P EDIL to LAD on 06/12/17 Last Assessment & Plan: No angina - Continue atorvastatin, isosorbide, metoprolol - no ASA due to thrombocytopenia Dyslipidemia, goal LDL below 70 11/25/2011 Last Assessment & Plan: Patient having no issues. She continues on Lipitor 40 mg daily Last lab I will was that I can find were from [phone] Assessment/plan: Dyslipidemia with patient currently taking Lipitor [...] as of this encounter (statuses as of 05/20/2024) Resolved Problems Problem Noted Date Diagnosed Date [...] as of this encounter (statuses as of 05/20/2024) Immunizations Name Administration Dates Next Due COVID-19 [...] this encounter Progress Notes * Makenzie Pool, [facility] - 05/20/2024 1:59 PM EDT Images from the original note [...] supper + CF 1:20 if over 140 STOP Levemir Vial - 20 units daily in AM START Lantus PEN - 20 units daily in AM Metformin [...] 12/06/22 1202 08/30/22 0940 HEMOGLOBIN A1C - [facility] % 7.6* 8.0* 7.4* Recent Labs Units 03/06/24 0852 01/24/24 1337 06/07/23 0813 ESTIMATED GLOMERULAR FILTRATION RATE - [facility] mL/min 46* 61 83 CREATININE - [facility] mg/dL 1.2* 1.0 0.8 HYPERTENSION: Patient on ACEi/ARB: no, stopped d/t hypotension BP Readings from Last 3 Encounters: 03/29/24 118/58 03/28/24 112/69 03/06/24 100/52 Blood pressure at goal: yes HYPERLIPIDEMIA: Patient is taking moderate or high intensity statin: yes HEALTH MAINTENANCE REVIEW: Health Maintenance Due Topic Date Due COVID-19 Vaccine ( season) 2023 *BISPHONATE OR OTHER ACCEPTABLE MEDICATION NEEDED FOR OSTEOPOROSIS (REFER TO SMARTSET #1146) Never done Colonoscopy 05/06/2024 Diabetic Eye Exam 05/12/2024 HbA1c 05/20/2024 Diabetic Foot Exam 06/05/2024 ASSESSMENT & PLAN: ICD-10-CM 1. Type 2 diabetes mellitus with hemoglobin A1c goal of less than 8.0% ([facility]) E11.9 Considerations: Cost: Approved for PACE 07/2023 Medication: H/o MARTHA to Lantus, unspecified; Eye pain with Xultophy A1c may not be accurate given frequent transfusions Libre2 through [facility] [phone] Daughter, Shatne WILIAMAlex nurse BG Readings - Blood sugars controlled. Several lows noted. Patient notes to improving diet, workingto increase vegetables. Successfully obtained new Freestyle Jojo reader. Updated A1c ordered to obtain. Medications - Reviewed current regimen, patient is adherent to regimen. Tolerating well. Will plan to slightly decrease basal insulin to reduce hypoglycemia. Diet, Exercise, Lifestyle - Encouraged to keep up great work with changes/increase in vegetable intake. 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 [facility] 05/20/2024, 1:59 PM documented in this encounter Plan of Treatment Upcoming Encounters Date Type Department Care Team (Latest Contact Info) Description 05/22/2024 7:10 AM EDT Laboratory Lab Mobile Phlebotomy [facility] [address], [place] [address] [facility] Draw [address] [place] [address] 05/29/2024 7:10 AM EDT Laboratory Lab Mobile Phlebotomy [facility] [address] [place] [address] [facility], [facility] Draw [address] [place], [place] [address] 06/04/2024 8:30 AM EDT Home Visit terrence at [facility] [address] [facility] [place] [address] Marisa Pacheco RN 132 [facility] [place] [address] 06/05/2024 7:10 AM EDT Laboratory Lab Mobile Phlebotomy [facility] [address], [place] [address] Mv[facility], Gml Mobile Home Draw [address] [place], [place] [address] 06/12/2024 7:10 AM EDT Laboratory Lab Mobile Phlebotomy [facility] [address] [place] [address] M[facility]mg, Gml Mobile Home Draw [address] [place] [address] 06/19/2024 7:10 AM EDT Laboratory Lab Mobile Phlebotomy [facility] [address] [place] [address] Mv[facility], Gml Mobile Home Draw [address] [place] [address] 06/26/2024 7:10 AM EDT Laboratory Lab Mobile Phlebotomy [facility] [address] [place] [address] M[facility], Gml Mobile Home Draw [address] [place] [address] 07/02/2024 1:00 PM EDT Office Visit Family Medicine [address] [place] [phone] Abby Bennett [address] [place] [address] 07/02/2024 1:30 PM EDT Office Visit Pharmacy, [address] [place] [address] [place] [address] 07/03/2024 7:10 AM EDT Laboratory Lab Mobile Phlebotomy [facility] [address] [place] [address] Mvmg, Gml Mobile [facility] Draw [address] [place] [address] 07/03/2024 1:30 PM EDT Imaging Radiology [address] [place] [address] 07/05/2024 9:15 AM EDT [facility] [address] [facility] [place] [phone] Jitendra Aguero MD 200 [facility] [place] [address] 07/10/2024 7:10 AM EDT Laboratory Lab Mobile Phlebotomy [facility] [address] [place] [address] Mvmg, Gml Mobile Home Draw [address] [place] [address] 07/12/2024 2:18 PM EDT Hospital Encounter OR GL, Operating Room, [facility] - 4th Floor [address] [place] [address] [place] [phone] Noemy Carrasco, DO [address] [place] [address] 07/12/2024 2:18 PM EDT - 07/12/2024 2:56 PM EDT Surgery OR [facility], Operating Room, [facility] - 4th Floor [address] [facility] [place] [address] Noemy Carrasco, DO [address] [place] [address] COLONOSCOPY FLEXIBLE PROXIMAL DIAGNOSTIC 07/17/2024 7:10 AM EDT Laboratory Lab Mobile Phlebotomy [facility] [address] [place] [address] Mvmg, Gml Mobile Home Draw [address] [place], [place] [address] 07/24/2024 7:10 AM EDT Laboratory Lab Mobile Phlebotomy [facility] [address] [place] [address] Mvmg, Gml Mobile Home Draw [address] [place] [address] 07/31/2024 7:10 AM EDT Laboratory Lab Mobile Phlebotomy [facility] [address] [place] [address] Mvmg, Gml Mobile Home Draw [address] [place], [place] [address] 08/07/2024 7:10 AM EDT Laboratory Lab Mobile Phlebotomy [facility] [address] [place], [place] [address] Mvmg, Gml Mobile Home Draw [address] [place] [address] 12/24/2024 2:30 PM EST Nurse Only Ancillary [address] [place] [address] [place], Nurse Annual [address] [place] [address] 01/13/2025 11:40 AM EST Office Visit Family Medicine [address] [place] [phone] Dhruv Moss MD [address] [place] [address] [place] [address] Scheduled Orders Name Type Priority Associated Diagnoses Orde r Schedule HEMOGLOBIN A1C Lab Routine Type 2 diabetes mellitus with hemoglobin A1c goal of less than 8.0% ([facility]) Expected: 05/20/2024, Expires: 05/20/2025 Scheduled Procedures Name Priority Associated Diagnoses Date/Ti [...] 023, 03/08/2022, 10/29/2019, Additional history exists Depression Monitoring 12/22/2024 12/22/2023 TSH 01/02/2025 01/02/2024, 11/14, 09/12/2022, Additional history exists GFR 03/06/2025 03/06/2024, 03/01/2024, 06/07/2023, Additional history exists DXA Scan 06/13/2025 06/13/2023, 11/2022, 03/16/2015 DTaP,Tdap,and Td Vaccines (3 - Td or Tdap) 11/10/2026 11/10/2016, 03/30/2011 VITAMIN D LEVEL ONCE IN A LIFETIME-USE SMARTSET# [id number] Completed 05/11/2015 RETIRED - COLONOSCOPY-EVERY 5 YRS [...] encounter Medical Devices Implanted Type Area Supervisor Of Way Device Identifier Shelf Expiration Date Model / Serial / Lot Port Pwr Mri Isp Profile - [id number] Implanted:Qty: 1 on 07/24/2020 by Akash Castillo MD at OR [facility] Right: Chest CR BARD : PERIPHERAL VASCULAR 04/12/2021 [id number] / / [id number] documented as of this encounter Visit Diagnoses [...] Name Relationship Healthcare Agent [facility] Communication Juanita Silva Adult Child Health Care Agent Care Teams Laboratory Secretary Relationship Specialty Start Date End Date Dhruv Moss MD [address] [place] [address] PCP - General Family Medicine 08/27/21 documented as of this encounter
--- OUTSIDE RECORDS SUMMARY | 2024-10-10 00:45 | External Medical Summary | Summary of Care ---
Author Name Unknown Organization [facility] Address [address] [place] [address] Phone [phone] Care Team Providers Care Steward/Stewardess Second Name Role Phone Dhruv Moss MD Primary Care Provide r Reason for Visit * Reason Onset Date Comments Test Results Lab 05/24/2024 Encounter Details Date Type Department Care Team (Late st Contact Info) Description 05/24/2024 Telephone Hematology/Oncology [facility] [address] [place] [address] [place] [phone] Jitendra Aguero MD 200 [facility] [place] [address] Test Results Lab Allergies No known active [...] for Nausea. 60 Tablet 3 12/09/2021 Active Internet PawnTouch Delica Lancets 30GIndications:Type 2 diabetes mellitus with hemoglobin A1c goal of less than 8.0% ([facility]) Use to test blood sugar three times a day DXe11.9 300 Each 3 12/16/2021 Active Internet PawnToAtrum Coal Verio Flex System w/Device Kit Use as [...] 24 Hour (Imdur)Indications:C oronary artery disease involving inaja coronary artery of inaja heart without angina pectoris,HTN, goal below 140/90 [...] morning. 30 mL 3 04/05/2024 Active Pen [place] 32G X 4 MM Use as directed. [...] 3553 0000 2079 7075 732 / DID: [id number] Matched Unrelated 10/24--- DPB1 Match ABO/Rh: A [...] Thrombocytopenia 12/06/2022 Last Assessment & Plan: Platelets 78061 on 03/20 Questionable hematuria Urinary incontinence 09/12/2022 [...] failure. Does not have any evidence of lozlo-qxzzmj-seyw disease Last Assessment & Plan: Continues to [...] -continue venlafaxine Coronary artery disease invo lving inaja coronary artery of inaja heart without angina pectoris 06/12/2017 Overview: S/P EDIL to LAD on 06/12/17 Last Assessment & Plan: No angina - Continue atorvastatin, isosorbide, metoprolol - no ASA due to thrombocytopenia Dyslipidemia, goal LDL below 70 11/25/2011 Last Assessment & Plan: Patient having no issues. She continues on Lipitor 40 mg daily Last lab I will was that I can find were from [phone] Assessment/plan: Dyslipidemia with patient currently taking Lipitor [...] mRNA, LNP-s, No Pre serve, 2-Dose Series (Divergence) 02/05/2021,01/08/2021 COVID-19, LNP-s, No Preserve , Ye-sucrose, [...] Telephone Encounter - Winsome Chang RN - 05/27/2024 9:41 AM EDT Attempted to call patient again- left messages. Called Juanita. She states that she does have it set up now that she can get hers moms voicemail left on home number, so was just about to call me back from message just left. Her mom did not get voicemail last week, but did not have issues with bruising/ bleeding over the weekend. She can have her dad bring her for plt transfusion today. Patient to receive 1 unit plt. Called [facility] blood bank (Kaleb). They have plt available. Called [facility] ([place]a). Patient scheduled for today at 11am. She will contact central scheduling. Patients daughter verbalized understanding of appt time. Faxed order to [facility]/ blood bank. * Telephone Encounter - Bogdan Gutiérrez RN [...] Mobile Phlebotomy [facility] [address] [place] [address] Mvmg, Gml Mobile Home Draw [address] [place] [address] [address] 06/04/2024 8:30 AM EDT Home Visit [facility] [address] [place] [address] Marisa Pacheco, TANYA [address] [place] [address] 06/05/2024 7:10 AM EDT Laboratory Lab Mobile Phlebotomy [facility] [address] [place] [address] Mvmg, Gml Mobile Home Draw [address] [place] [address] 06/12/2024 7:10 AM EDT Laboratory Lab Mobile Phlebotomy [facility] [address] [place] [address] [address] Mvmg, Gml Mobile Home Draw [address] [place] [address] [address] [address] 06/19/2024 7:10 AM EDT Laboratory Lab Mobile Phlebotomy [facility] [address] [place] [address] [address] Mvmg, Gml Mobile Home Draw [address] [place] [address] 06/26/2024 7:10 AM EDT Laboratory Lab Mobile Phlebotomy [facility] [address] [place] [address] [address] Mvmg, Gml Mobile Home Draw [address] [place] [address] [address] 07/02/2024 1:00 PM EDT Office Visit Family Medicine [address] [phone] Abby Bennett CRNP [facility] [place] [address] 07/02/2024 1:30 PM EDT Office Visit Pharmacy, [address] [place] [address] [place] [address] 07/03/2024 7:10 AM EDT Laboratory Lab Mobile Phlebotomy [facility] [address] [place] [address] Mvmg, Gml Mobile Home Draw [address] [place] [address] 07/03/2024 1:30 PM EDT Imaging Radiology [address] [place] [address] 07/05/2024 9:15 AM EDT [facility] [address] [place] [phone] Jitendra Aguero MD [address] [place] [address] 07/10/2024 7:10 AM EDT Laboratory Lab Mobile Phlebotomy [facility] [address] [place] [address] Mvmg, Gml Mobile Home Draw [address] [place] [address] 07/12/2024 2:18 PM EDT Hospital Encounter OR [facility], Operating Room, [facility] - 4th Floor [address] [place] [address] Noemy Carrasco, DO [address] [place] [address] 07/12/2024 2:18 PM EDT - 07/12/2024 2:56 PM EDT Surgery OR GL, Operating Room, [facility] - 4th Floor [address] [place] [address] Noemy Carrasco, DO [address] [place] [address] COLONOSCOPY FLEXIBLE PROXIMAL DIAGNOSTIC 07/17/2024 7:10 AM EDT Laboratory Lab Mobile Phlebotomy [facility] [address] [place] [address] Mvmg, Gml Mobile Home Draw [address] [place] [address] 07/24/2024 7:10 AM EDT Laboratory Lab Mobile Phlebotomy [facility] [address] [place] [address] Mvmg, Gml Mobile Home Draw [address] [place] [address] 07/31/2024 7:10 AM EDT Laboratory Lab Mobile Phlebotomy [facility] [address] [place] [address] Mvmg, Gml Mobile Home Draw [address] [place], [place] [address] 08/07/2024 7:10 AM EDT Laboratory Lab Mobile Phlebotomy [facility] [address] [place] [address] Mvmg, Gml Mobile Home Draw [address] [place], [place] [address] 12/24/2024 2:30 PM EST Nurse Only Ancillary [address] [place] [address] Bernadinealley, Nurse Annual [address] [place] [address] 01/13/2025 11:40 AM EST Office Visit Family Medicine [address] [place] [phone] Dhruv Moss MD [address] [place] [address] [place] [address] Scheduled Procedures Name Priority Associated Diagnoses Date/Ti [...] D LEVEL ONCE IN A LIFETIME-USE SMARTSET# [id number] Completed 05/11/2015 RETIRED - COLONOSCOPY-EVERY 5 YRS AGES 18-100 Discontinued 05/06/2019, 05/06/2019 Zoster Vaccines Completed 10/30/2020, 090 02/2020, 07/13/2020, Additional history exists *BASELINE EKG [...] this encounter Medical Devices Implanted Type Area Small Battery Plate Assembler Device Identifier Shelf Expiration Date Model / Serial / Lot Port Pwr Mri Isp Profile - [id number] Implanted:Qty: 1 on 07/24/2020 by Akash Castillo MD at OR [facility] Right: Chest CR BARD : PERIPHERAL VASCULAR 04/12/2021 [id number] / / [id number] documented as of this encounter Advance Directives [...] Name Relationship Healthcare Agent Relationshi p Communication Juanitabel Silva Adult Child Health Care Agent Care Teams Steward/Stewardess Second Relationship Specialty Start Date End Date Dhruv Moss MD [address] [place] [address] PCP - General Family Medicine 08/27/21 documented as of this encounter
[2024-10-10 04:42] LABS: BUN Creatinine Ratio 26.9 (10-20); Calcium 8.6 mg/dl (8.6-10.3); Creatinine Clr Calc Pharmacy 45.5 ml/min; Magnesium 2.6 mg/dl (1.7-2.4); Potassium 3.4 mmol/L (3.5-5.1)
[2024-10-10 05:04] LABS: Hematocrit (blood only) 19.1 % (37.0-47.0); Hemoglobin 6.4 g/dl (12.0-16.0); Mean Corpuscular Hemoglobin 28.3 pg (25.0-34.0); Mean Corpuscular Hgb Conc 33.5 g/dL (32.0-36.0); Mean Corpuscular Volume 84.5 fL (80.0-100.0); Mean Platelet Volume 9.8 fL (9.4-12.4); Platelet Count 27 K/uL (130-400); RDW Coefficient of Variation 15.4 % (11.5-14.5); RDW Standard Deviation 44.9 fL (36.4-46.3); Red Blood Count 2.26 M/uL (4.20-5.40); White Blood Count 22.15 K/ul (4.8-10.8)
[2024-10-10] MEDS ORDERED: SODIUM CHLORIDE 0.9% 50 ML IV PRN ×2 (05:09→05:10)
[2024-10-10] MEDS ORDERED: SODIUM CHLORIDE 0.9% 100 ML IV PRN ×2 (05:09→05:10)
[2024-10-10 05:43] LABS: Blast Cells % (manual) 32 %; Dohle Bodies 1+; Eosinophils % (manual) 3 %; Hypogranular Neutrophils 1+; Lymphocytes % (manual) 40 %; Neutrophils % (manual) 25 %; Toxic Vacuolation 1+
[2024-10-10] MEDS: LEVOTHYROXINE SODIUM 88 MCG TABLET PO SCH (06:00)
[2024-10-10 07:20] VITALS: RESP 18
[2024-10-10] MEDS: ATORVASTATIN 40 MG TAB PO SCH (08:26)
[2024-10-10] MEDS: VENLAFAXINE HCL XR 150 MG CAPXR PO SCH (08:26)
[2024-10-10] MEDS: ISOSORBIDE MONO EXTENDED REL 30 MG TABCR PO SCH (08:30)
--- NOTE | 2024-10-10 10:25 | CT Scan Report ---
EXAM: CT Head Without Intravenous Contrast INDICATION: Reassessed brain hemorrhage TECHNIQUE: Axial computed tomography images of the head/brain without intravenous contrast. Sagittal and/or coronal reformats are provided. Sagittal and coronal reformatted images were created and reviewed. This CT exam was performed using one or more of the following dose reduction techniques: automated exposure control, adjustment of the mA and/or kV according to patient size, and/or use of iterative reconstruction technique. COMPARISON: 02/27/2024 FINDINGS: Limitations: None. Brain and extra-axial spaces: 6 mm homogeneous hyperdense nodule is now present in the paramedian right lateral ventricle likely a focus of hemorrhage. Stable chronic small vessel ischemic and atrophic changes. Bones/joints: No acute changes. Soft tissues: No significant abnormality noted. Vasculature: No acute abnormality noted. Sinuses: No layering fluid in the visualized portions of the paranasal sinuses. Mastoid air cells: No mastoid effusion. Orbits: No significant abnormality noted. IMPRESSION: 6 mm homogeneous hyperdense nodule is now present in the paramedian right lateral ventricle likely a focus of hemorrhage. Stable atrophic changes. ACT 112: Negative or not required by law. Electronically signed by Whitley De La Rosa 10-10-2024 10:25 AM
[2024-10-10] MEDS: carvediloL 12.5 MG TAB PO SCH (12:01)
[2024-10-10 13:17] LABS: Hematocrit (blood only) 22.4 % (37.0-47.0); Hemoglobin 7.7 g/dl (12.0-16.0); Mean Corpuscular Hemoglobin 29.7 pg (25.0-34.0); Mean Corpuscular Hgb Conc 34.4 g/dL (32.0-36.0); Mean Corpuscular Volume 86.5 fL (80.0-100.0); Mean Platelet Volume 10.2 fL (9.4-12.4); Platelet Count 32 K/uL (130-400); RDW Coefficient of Variation 14.6 % (11.5-14.5); RDW Standard Deviation 43.6 fL (36.4-46.3); Red Blood Count 2.59 M/uL (4.20-5.40); White Blood Count 22.32 K/ul (4.8-10.8)
[2024-10-10 13:57] LABS: ALC (manual) 7.14 K/uL (1.2-3.4); ANC (manual) 6.92 K/uL (1.4-6.5); Basophils # (manual) 0.22 K/uL (0-0.2); Basophils % (manual) 1 %; Blast # (manual) 7.14 K/uL (0-0); Blast Cells % (manual) 32 %; Eosinophils # (manual) 0.45 K/uL (0-0.50); Eosinophils % (manual) 2 %; Hypogranular Neutrophils 2+; Lymphocytes # (manual) 7.14 K/uL (1.2-3.4); Lymphocytes % (manual) 32 %; Monocytes # (manual) 0.22 K/uL (0.11-0.59); Monocytes % (manual) 1 %; Myelocytes # (manual) 0.22 K/uL (0-0); Myelocytes % (manual) 1 %; Neutrophils # (manual) 6.92 K/uL (1.40-6.50); Neutrophils % (manual) 31 %; Toxic Vacuolation 1+
--- NOTE | 2024-10-10 14:07 | Discharge Summary ---
Date of Service October 10, 2024 Admission HPI Per Admitting Provider Patient is 73-year-old female with PMH myelodysplastic syndrome s/p Dacogen and stem cell transplantation 08/2021 with relapsed myelodysplastic syndrome now PRBC and platelet transfusion dependent, DM II, HTN, HLD, CAD s/p stent, depression, hypothyroidism presented to ER with c/o AMS x 1 week. History obtained from patient, patients daughter and outpatient chart review. Patient is transfusion dependent receiving PRBC and platelet transfusions with last transfusions on 10/03/2024. Follows with oncology, Dr. Aguero. Reports decreased appetite and decreased oral appetite the past week. Reports for past week more confused than usual. Daughter states thought was possible UTI so had [facility] perform UA which was negative. Daughter states today patient is mentally more clear than she has been and seems alert and oriented. Daughter noticed today patient was more SOB with little movement and patient had reported some chest pain when daughter was showering her this morning. Reports intermittent ENCARNACION's this past week. Currently at rest in bed patient denies SOB or CP. States last had medications yesterday, 10/08/24. Was getting Eylea injections, last on 09/30/24 and developed subconjunctival hemorrhage which daughter states look better the past several days. Patient denies any vision changes. Currently patient states has pain to tailbone has discomfort after sitting for a long time and denies other pain. Denies fever/chills, diaphoresis, N/V/D/C, dizziness, syncope, palpitations, cough, sore throat, rhinorrhea, abdominal pain, paresthesias, extremity edema, rashes, hematuria, dysuria, hematochezia. Admission Exam Per Admitting Provider Constitutional: Awake, oriented to time place and person. HEENT; bilateral conjunctival hemorrhage present. Petechiae present in lower lips. Respiratory: Bilateral vesicular breath sound. Cardiovascular: RRR, no murmur, no edema Vessels: no JVD or carotid bruit Chest: normal inspection of chest Abdomen: Soft, nontender. Skin: no rashes, warm and dry normal turgor Neurologic: PERRL, EOMI, accommodation nl, no face palsy, no dysarthria CN's II- XI intact bilaterally and moves all extremities Psychiatric: A+Ox3, euthymic affect Principal Diagnosis Intraventricular hemorrhage Thrombocytopenia Myelodysplastic syndrome Discharge Exam Constitutional: Awake, oriented to time place and person. HEENT; bilateral conjunctival hemorrhage present. Petechiae present in lower lips. Respiratory: Bilateral vesicular breath sound. Cardiovascular: RRR, no murmur, no edema Vessels: no JVD or carotid bruit Chest: normal inspection of chest Abdomen: Soft, nontender. Skin: no rashes, warm and dry normal turgor Neurologic: PERRL, EOMI, accommodation nl, no face palsy, no dysarthria CN's II- XI intact bilaterally and moves all extremities Psychiatric: A+Ox3, euthymic affect Discharge Data Allergies Allergy/AdvReac Type Severity Reaction Status Date / Time No Known Allergies Allergy Verified 10/09/24 13:06 Consultations 10/09/24 14:35 ED Decision to Admit Stat Ordered Studies 10/09/24 10:59 CT abd pelvis IV con only Stat 10/09/24 11:00 CT head/brain wo con Stat 10/10/24 10:00 CT head/brain wo con DAILY Hospital Course (1) Intraventricular hemorrhage: Plan 73-year-old female with PMH myelodysplastic syndrome s/p Dacogen and stem cell transplantation 08/2021 with relapsed myelodysplastic syndrome now, PRBC and platelet transfusion dependent, DM II, HTN, HLD, CAD s/p stent, depression, hypothyroidism presented to ER with c/o AMS and intermittent ENCARNACION x 1 week. Last transfusions on 10/03/2024. She was noted to have thrombocytopenia and intraventricular hemorrhage at presentation in the ED. They declined transfer to higher center and goals of care discussion was held by the admitting team where patient and the family wanted to stay in the hospital, get blood transfusion, move towards comfort measure and hospice if she were to deteriorate. They understood the fact that she might deteriorate given her complexity and accepted the risks. She was managed for the following: Myelodysplastic syndrome, relapse Bicytopenia: Anemia and thrombocytopenia Patient with history of myelodysplastic syndrome, currently under no treatments, currently PRBC and platelet transfusion dependent. Admitting hemoglobin of 8.7 and platelets of 1000. Patient needed 3 units platelets and will get total of 2 unit PRBC prior to dc. Currently hemoglobin and platelet levels are at 7.7 and 32,000. Spoke with patient and her daughter, they want to go home today because as it might be patient's " last Thanksgiving" and are willing to sign AMA if need be. We discussed goals of care in detail over the phone with patient's daughter and at bedside with patient. They want to go home with hospice, do not want hospice to start today, are comfortable taking care of her at home until hospice resumes care from tomorrow, coordinated with case work aide to help set up home hospice. They understand that the patient might deteriorate over the next 1 to 2 days, and they stated that in that case they have a plan to transition to comfort care measures. Patient's daughter stated that she will be in touch with her outpatient palliative care provider as well along with hospice for additional help if needed. Intraventricular hemorrhage: Noted on admitting CT head, repeat CT head with stable hemorrhage. Patient with no headache or nausea or vomiting or any neurological symptoms. Pt is awake and oriented. Other chronic medical conditions: Continue with/resume home meds as when able. Will switch her back to her home metoprolol (from coreg given here) as to not complicate her meds during holiday time (pharmacies are closed)/during transition to comfort care in next few days. Also her BP has been on lower normal side. DNR/DNI Patient is being discharged to home with hospice with following instruction at the point of discharge: As discussed at the bedside with your self and your daughter [over the phone], you are being discharged to home with hospice. Per your request, hospice agency has been notified not to make a home visit today, they will probably start your care from tomorrow. As has been discussed, the chances that you will deteriorate over the next few days is very high due to ongoing thrombocytopenia and anemia in the setting of myelodysplastic syndrome, hence recommend that you be in close contact with your outpatient palliative care providers and hospice agency for ongoing evaluation and possible transition to comfort care measures. Home Health Attestation I certify that this patient is under my care and that I, or a physicians bar assistant working with me, had a face to-face encounter that meets the home health [id number] encounter requirements with this patient. The encounter with the patient was in whole, or in part, for the following medical condition, which is the primary reason for home health care (list medical condition): I certify that, based on my findings, the following services are medically necessary home health services: My clinical findings support the need for the above services because: Further, I certify that my clinical findings support that this patient is homebound (i.e. absences from home require considerable and taxing effort and are for medical reasons or anabaptism services or infrequently or of short duration when for other reasons) because: Certification for Home Health Services: Based on the above findings, I certify that this patient is confined to the home and needs intermittent fci care, physical therapy and/or speech therapy or continues to need occupational therapy. The patient is under my care, and I have initiated the establishment of the plan of care. This patient will be followed by a physician who will periodically review the plan of care. Total Time Total Time Spent Total Time Spent (In Minutes): 55 Discharge Plan Discharge Items Patient Disposition: Hospice - Home Reason For Visit: THROMBOCYTOPENIA, BRAIN HEMORRAGE Discharge Diagnosis: Intraventricular hemorrhage Thrombocytopenia Myelodysplastic syndrome Activity: As commented below Activity Comment: Avoid fall, per directions from hospice care. Non-emergency contact: Primary Care Provider Call non-emergency contact if: you have any medication questions and your symptoms worsen Follow-up/Referrals: Dhruv Moss MD [Primary Care Provider] - Diet: Carb Consistent or DM2 and Heart Healthy Addtl Attending Provider Instructions: As discussed at the bedside with your self and your daughter [over the phone], you are being discharged to home with hospice. Per your request, hospice agency has been notified not to make a home visit today, they will probably start your care from tomorrow. As has been discussed, the chances that you will deteriorate over the next few days is very high due to ongoing thrombocytopenia and anemia in the setting of myelodysplastic syndrome, hence recommend that you be in close contact with your outpatient palliative care providers and hospice agency for ongoing evaluation and possible transition to comfort care measures. Pending Studies at Discharge: No Stand-Alone Forms: My [facility] Medications and DC Order Prescriptions: Continued atorvastatin 40 mg tablet 40 mg PO DAILY metoprolol succinate 50 mg tablet extended release 24 hr 50 mg PO DAILY isosorbide mononitrate 30 mg tablet extended release 24 hr 30 mg PO DAILY venlafaxine 150 mg capsule,extended release 24hr 150 mg PO DAILY acyclovir 800 mg tablet 800 mg PO BID levothyroxine 88 mcg tablet 88 mcg PO DAILY metformin 1,000 mg tablet 1,000 mg PO BID omeprazole 20 mg capsule,delayed release(DR/EC) 20 mg PO BID nitroglycerin [Nitrostat] 0.4 mg Tablet, Sublingual 0.4 mg sublingual DIRECTED PRN (Reason: .chest pain) prochlorperazine maleate [Compazine] 10 mg Tablet 10 mg PO Q6H PRN (Reason: Nausea And Vomiting) tramadol 50 mg tablet 50 mg PO Q6H PRN (Reason: Pain) acetaminophen [Tylenol Ex Str Rapid Release] 500 mg Tablet 500 mg PO Q6H PRN (Reason: Pain) ondansetron [Zofran ODT] 4 mg Tablet,Disintegrating 4 mg PO Q6H PRN (Reason: Nausea And Vomiting) insulin aspart U-100 [Novolog FlexPen U-100 Insulin] 100 unit/mL (3 mL) insulin pen 1 sliding scale dose SUBCUT TID Rx Instructions: 8 units with breakfast, 4 units with lunch and 6 units with dinner and sliding scale of one unit every 20 over 140 max daily dose 50units insulin glargine [Lantus Solostar U-100 Insulin] 100 unit/mL (3 mL) insulin pen 16 unit subcut QAM Probiotic 3 billion cell Capsule 3,000 mmu cells PO DAILY Rx Instructions: administer with a meal Discharge Orders: Discharge Order (Routine); Ordered 10/10/24 Ordered By: Austyn Gonsalves Admission Data Admit Date/Time: 10/09/24 15:22 Attending Provider: Austyn Gonsalves Admit Provider: Sekou Reyna Primary Care Provider: Dhruv Moss Other Providers: Sekou Reyna
[2024-10-10 14:24] VITALS: O2SAT 97
[2024-10-10 17:35] VITALS: BP 118/71; PULSE 80; TEMP 97.7
== END 2024-10-10 17:37 | disposition hospice, home (50) | DRG 813 ==
LOC: ED 10:28 → SUATTDRO 15:22 → 2S 15:22